=== PATIENT | female | born 1955 | race African-American/Black ===

== ENCOUNTER 2025-01-31 13:31 | Inpatient (IN) | payer MEDICARE, MEDICAID, SELFPAY ==
[2025-01-31] VITALS (58 sets, daily range): BP systolic 93–122; BP diastolic 53–97; PULSE 94–129; RESP 18–24; TEMP 37.4–38.2; O2SAT 90–100; BMI 16.0
--- NOTE | ~2025-01-31 | XR_ITS ---
EXAMINATION: XR chest 1V portable DATE: 02/05/2025 06:07 INDICATION: Pneumonia. Respiratory failure. TECHNIQUE: A single frontal view of the chest was obtained. COMPARISON: Chest single view 02/04/2025, chest CT 01/31/2025 FINDINGS: There are airspace opacities in right mid and lower lung zones and left lower lung zone. Th ere is a small right pleural effusion. No pneumothorax. The heart size is normal. The endotracheal tu be tip is 2.2 cm above the danay. The nasogastric tube tip is in the stomach. A right internal jugul ar central venous catheter is seen with tip in the right atrium. IMPRESSION: 1. Airspace opacities in right mid and lower lung zones and left lower lung zone with improvement on the right, consistent with atelectasis versus pneumonia. 2. Small right pleural effusion. Reviewed, dictated and finalized at location A. IMPRESSION: 1. Airspace opacities in right mid and lower lung zones and left lower lung zon e with improvement on the right, consistent with atelectasis versus pneumonia. 2. Small right pleural effusion.
--- NOTE | ~2025-01-31 | XR_ITS ---
XR chest ET placement Ordering provider: Yang Shin MD History: 69 years Female with . intubation and central line . Comparison: None. FINDINGS: MEDIASTINUM: The cardiac silhouette is not enlarged. Endotracheal tube is seen with the tip above the danay by about 3 cm. Right central line with the tip overlying the right atrium. Nasogastric tube s een extending into the stomach. Congestive charmaine. LUNGS: No effusions or pneumothorax. Opacification the right lower lobe area suggestive of pneumonia. OTHER: No free air under the diaphragm. IMPRESSION: Right lower lobe pneumonia. Reviewed, dictated and finalized at location A. IMPRESSION: Right lower lobe pneumonia.
--- NOTE | ~2025-01-31 | XR_ITS ---
CHEST RADIOGRAPH CLINICAL HISTORY: Pneumonia, respiratory failure . COMPARISON: 02/03/2025 TECHNIQUE: Single portable view of the chest. FINDINGS Right internal jugular central venous catheter tip projecting over the right atrium (increased depth from previous examination likely secondary to positioning). Endotracheal tube is identified with its tip projecting approximately 2.5 cm above the base of the ca davin. Nasogastric tube identified with its tip extending below the left hemidiaphragm, presumably within th e stomach. The remainder of the cardiomediastinal silhouette is otherwise unremarkable. Redemonstration of a right-sided pleural effusion, with adjacent compressive atelectasis. This is dec reased from previous examination performed 24 hours earlier. Increased interstitial markings are identified bilaterally, findings suggesting mild pulmonary vascul ar congestion. The remainder of the lungs are clear. IMPRESSION: Decreased right-sided pleural effusion, with adjacent compressive atelectasis. Mild pulmonary vascular congestion. Supportive lines and tubes in good radiographic position. Reviewed, dictated and finalized at location A.
--- NOTE | ~2025-01-31 | XR_ITS ---
Portable chest x-ray Comparison: 01/31/2025 Clinical History: Intubation Findings: Endotracheal tube, NG tube, and right IJ line are in place, unchanged. Stable elevation ri ght hemidiaphragm. There is hazy airspace disease right lung base/right perihilar region. Left lung c lear. Cardiomediastinal silhouette is stable. Bones and soft tissues are unremarkable. Impression: Hazy airspace disease right lung base/right perihilar region. Correlate for asymmetric pulmonary enrrique a versus pneumonia. Support tubes, as above. Reviewed, dictated and finalized at location . Impression: Hazy airspace disease right lung base/right perihilar region. Correlate for asy mmetric pulmonary edema versus pneumonia. Support tubes, as above.
--- NOTE | ~2025-01-31 | XR_ITS ---
Portable chest x-ray Comparison: 02/11/2025 Clinical History: Intubation Findings: Endotracheal tube, NG tube, and right IJ line are in place. Stable elevation right hemidia phragm. Lungs are clear. Cardiomediastinal silhouette is stable. Bones and soft tissues are unremark able. Impression: Support tubes, as above. Right IJ line tip is in the right atrium, near the IVC. Clear lungs with stable elevation right hemidiaphragm. Reviewed, dictated and finalized at location M. Impression: Support tubes, as above. Right IJ line tip is in the right atrium, near the IVC . Clear lungs with stable elevation right hemidiaphragm.
--- NOTE | ~2025-01-31 | CT_ITS ---
History: TIA PROCEDURE: CT head without contrast. COMPARISON: None TECHNIQUE: Axial imaging of the head performed from the skull base to the vertex without IV contrast. Sagittal a nd coronal reformations obtained. DLP: 605 mGy-cm FINDINGS: The ventricles are normal in size, shape and position. There is no mass, mass effect or midline shift. There is no abnormal extra-axial fluid collection or intracranial hemorrhage. Visualized paranasal sinuses are clear. The mastoid air cells are well aerated. No acute displaced fractures within the overlying cranium. Impression: No acute intracranial hemorrhage or suspicious mass effect. Reviewed, dictated and finalized at location A. Impression: No acute intracranial hemorrhage or suspicious mass effect.
--- NOTE | ~2025-01-31 | XR_ITS ---
EXAMINATION: XR chest 1V portable DATE: 02/09/2025 05:36 INDICATION: Respiratory failure. TECHNIQUE: A single frontal view of the chest was obtained. COMPARISON: Chest single view 02/08/2025, chest CT 01/31/2025 FINDINGS: There are airspace opacities in right mid and lower lung zones. No pleural effusion or pneu mothorax. The heart size is normal. The endotracheal tube tip is 2.7 cm above the danay. The nasogas tric tube tip is beyond the inferior margin of the radiograph, but at least to the stomach. A right i nternal jugular central venous catheter is seen with tip in the right atrium. IMPRESSION: 1. Stable airspace opacities in right mid and lower lung zones, consistent with atelectasis versus pn eumonia. Reviewed, dictated and finalized at location A. IMPRESSION: 1. Stable airspace opacities in right mid and lower lung zones, consistent with atelectasis versus pneumonia.
--- NOTE | ~2025-01-31 | XR_ITS ---
EXAMINATION: XR chest 1V portable DATE: 02/07/2025 05:46 INDICATION: Respiratory failure. TECHNIQUE: A single frontal view of the chest was obtained. COMPARISON: Chest single view 02/06/2025 FINDINGS: The patient is rotated to her left. Again seen is mild elevation of right hemidiaphragm. Th ere are airspace opacities in the lower lung zones, right worse than left. No pleural effusion or pne umothorax. The heart size is normal. The endotracheal tube tip is 3.0 cm above the danay. The nasoga stric tube tip is in the stomach. A right internal jugular central venous catheter is seen with tip i n the right atrium. IMPRESSION: 1. Airspace opacities in the lower lung zones with interval improvement, consistent with atelectasis versus pneumonia. Reviewed, dictated and finalized at location A. IMPRESSION: 1. Airspace opacities in the lower lung zones with interval improvement, consis tent with atelectasis versus pneumonia.
--- NOTE | ~2025-01-31 | XR_ITS ---
Portable chest x-ray Comparison: 02/14/2025 Clinical History: Respiratory failure Findings: Endotracheal tube and left-sided PICC line are in place. Stable elevation right hemidiaphr agm. Lungs are clear. Cardiomediastinal silhouette is stable. Bones and soft tissues are unremarkabl e. Impression: Clear lungs with stable elevation of right hemidiaphragm. Support tubes, as above. Reviewed, dictated and finalized at location . Impression: Clear lungs with stable elevation of right hemidiaphragm. Support tubes, as above.
--- NOTE | ~2025-01-31 | XR_ITS ---
Portable chest x-ray Comparison: 02/12/2025 Clinical History: Respiratory failure Findings: Endotracheal tube, NG tube, and left-sided PICC line are in place. There is elevation of t he right hemidiaphragm. Lungs are clear. Cardiomediastinal silhouette is stable. Bones and soft tiss ues are unremarkable. Impression: Support tubes, as above. Clear lungs with elevated right hemidiaphragm. Reviewed, dictated and finalized at location M. Impression: Support tubes, as above. Clear lungs with elevated right hemidiaphragm.
--- NOTE | ~2025-01-31 | XR_ITS ---
Exam: Abdomen 1V HISTORY: OG placement verification, depth undocumented COMPARISON: None. TECHNIQUE: Supine images of the lower chest and upper abdomen FINDINGS: Orogastric tube extends into the left upper quadrant, presumably within the stomach. IMPRESSION: Orogastric tube in good position and ready for immediate use. Reviewed, dictated and finalized at location A.
--- NOTE | ~2025-01-31 | XR_ITS ---
EXAMINATION: XR chest 1V portable DATE: 02/08/2025 05:47 INDICATION: Respiratory failure. TECHNIQUE: A single frontal view of the chest was obtained. COMPARISON: Chest single view 02/07/2025 FINDINGS: There is mild elevation of right hemidiaphragm. There are airspace opacities in right mid a nd lower lung zones and left lower lung zone. No pleural effusion or pneumothorax. The heart size is normal. The endotracheal tube tip is 4.3 cm above the danay. A right internal jugular central venous catheter is seen with tip in the right atrium. The nasogastric tube tip is beyond the inferior narciso n of the radiograph, but at least to the stomach. IMPRESSION: 1. Airspace opacities in right mid and lower lung zones and left lower lung zone with worsening on th e right, consistent with atelectasis versus pneumonia. Reviewed, dictated and finalized at location A. IMPRESSION: 1. Airspace opacities in right mid and lower lung zones and left lower lung zon e with worsening on the right, consistent with atelectasis versus pneumonia.
--- NOTE | ~2025-01-31 | XR_ITS ---
XR abdomen gastric tube insert Ordering provider: Marky Taylor MD History: . OG tube placement . Comparison: None. FINDINGS/impression: Nasogastric tube is seen with the distal tube projected over the body of the stomach. Reviewed, dictated and finalized at location A.
--- NOTE | ~2025-01-31 | XR_ITS ---
CHEST RADIOGRAPH CLINICAL HISTORY: ET TUBE ADVANCEMENT . COMPARISON: Previous examination performed on the same day, approximately 3 hours earlier TECHNIQUE: Single portable view of the chest. FINDINGS Right internal jugular central venous catheter tip now projecting over the deep right atrium/IVC conf luence (increased depth from previous examination likely secondary to positioning). Endotracheal tube is identified with its tip now projecting approximately 1.3 cm above the base of th e danay (increased depth from previous examination likely secondary to positioning). Nasogastric tube identified with its tip extending below the left hemidiaphragm, presumably within th e stomach. The remainder of the cardiomediastinal silhouette is otherwise unremarkable. Redemonstration of a right-sided pleural effusion, with adjacent compressive atelectasis. This is dec reased from previous examination performed 24 hours earlier. Increased interstitial markings are identified bilaterally, findings suggesting mild pulmonary vascul ar congestion. The remainder of the lungs are clear. IMPRESSION: Decreased right-sided pleural effusion, with adjacent compressive atelectasis. Mild pulmonary vascular congestion. Given that the patient's kyphosis is not severe, the increased depth of both the endotracheal tube an d central venous catheter is significant - for which withdrawal of the central venous catheter appro ximately 4 cm and withdrawal of the endotracheal tube approximately 3.5 cm is recommended, for optima l radiographic placement. Reviewed, dictated and finalized at location A. IMPRESSION: Decreased right-sided pleural effusion, with adjacent compressive atelectasis. Mild pulmonary vascular congestion. Given that the patient's kyphosis is not severe, the increased depth of both th e endotracheal tube and central venous catheter is significant - for which wit hdrawal of the central venous catheter approximately 4 cm and withdrawal of the endotracheal tube approximately 3.5 cm is recommended, for optimal radiographi c placement.
--- NOTE | ~2025-01-31 | XR_ITS ---
Portable chest x-ray Comparison: 02/01/2025 Clinical History: Pneumonia Findings: Endotracheal tube, NG tube, and right IJ line are in place. There are small right pleural effusion with hazy right basilar airspace disease and possible right basilar atelectasis. Left lung e ssentially clear. Cardiomediastinal silhouette is stable. Bones and soft tissues are unremarkable. Impression: Small right pleural effusion with hazy right basilar airspace disease and possible partial right basi lar atelectasis. Support tubes, as above. Reviewed, dictated and finalized at location . Impression: Small right pleural effusion with hazy right basilar airspace disease and possi ble partial right basilar atelectasis. Support tubes, as above.
--- NOTE | ~2025-01-31 | XR_ITS ---
XR chest 1V portable 02/03/2025 06:14 Indication: Pneumonia. Respiratory failure. Procedure: AP portable chest Comparison: 02/02/2025 Findings: Heart size normal. NG tube in the stomach. Right IJ central line tip in the SVC. Endotrache al tube tip 4.6 cm above the danay. Mild interstitial edema. Small right pleural effusion. No pneumo thorax. No acute osseous abnormality. Nonspecific bowel gas pattern. Impression: 1: Persistent mild interstitial edema with layering right pleural effusion. Reviewed, dictated and finalized at location B. Impression: 1: Persistent mild interstitial edema with layering right pleural effusion.
--- NOTE | ~2025-01-31 | XR_ITS ---
XR chest 1V portable Ordering provider: Marky Taylor MD History: 69 years Female with . Resp Failure . Comparison: February 17, 2025 FINDINGS: MEDIASTINUM: The cardiac silhouette is not enlarged. Tracheostomy tube, and left central line are unc hanged. LUNGS: No effusions or pneumothorax. Atelectasis versus pneumonia seen in the middle lobe area. Promi nent bronchovascular markings are seen in the lower lobes. OTHER: Elevation of the right hemidiaphragm. No free air under the diaphragm. IMPRESSION: No change from previous examination. Reviewed, dictated and finalized at location A.
--- NOTE | ~2025-01-31 | XR_ITS ---
XR chest 1V portable 02/14/2025 08:47 Indication: Respiratory failure Procedure: AP portable chest Comparison: 02/12/2025 Findings: Endotracheal tube tip 4.9 cm above the danay. NG tube in the stomach. Elevated right diaph ragm. Left lung clear. There is opacification of the right lung base with indistinct bilateral costop hrenic recess. No pneumothorax identified. Left subclavian PICC line tip in the SVC. Impression: 1: Right basilar opacification may represent atelectasis or pneumonia. Elevated right diaphragm uncha nged. Reviewed, dictated and finalized at location A. Impression: 1: Right basilar opacification may represent atelectasis or pneumonia. Elevated right diaphragm unchanged.
--- NOTE | ~2025-01-31 | XR_ITS ---
EXAMINATION: XR chest 1V portable DATE: 02/06/2025 06:08 INDICATION: Pneumonia. Respiratory failure. TECHNIQUE: A single frontal view of the chest was obtained. COMPARISON: Chest single view 02/05/2025, chest CT 01/31/2025 FINDINGS: The patient is rotated to her left. There is elevation of right hemidiaphragm. There are ai rspace opacities in the lower lung zones. No pleural effusion or pneumothorax. The heart size is norm al. The endotracheal tube tip is 10 mm above the danay. The nasogastric tube tip is beyond the infer ior margin of the radiograph, but at least to the stomach. A right internal jugular central venous ca theter is seen with tip in the right atrium. IMPRESSION: 1. Airspace opacities in the lower lung zones with slight improvement on the right, consistent with p neumonia and atelectasis. Reviewed, dictated and finalized at location A. IMPRESSION: 1. Airspace opacities in the lower lung zones with slight improvement on the ri ght, consistent with pneumonia and atelectasis.
--- NOTE | ~2025-01-31 | XR_ITS ---
Upright portable view of the abdomen Clinical history: NG tube placement Findings: NG tube in satisfactory position. Bowel gas pattern is nonspecific. No evidence for obstruc tion or free air. No abnormal mass lesion or calcification is seen. Osseous structures are intact. Impression: NG tube in satisfactory position. Reviewed, dictated and finalized at location . Impression: NG tube in satisfactory position.
--- NOTE | ~2025-01-31 | US_ITS ---
EXAMINATION: US venous doppler [facility] DATE: 02/15/2025 12:07 INDICATION: Fever. Respiratory failure. TECHNIQUE: Grayscale ultrasound images without and with compression and Doppler ultrasound images of the bilateral lower extremity veins were obtained. COMPARISON: None. FINDINGS: The visualized portions of right common femoral vein, profunda (deep) femoral vein, femoral vein, pop liteal vein, posterior tibial veins, peroneal veins, gastrocnemius vein and greater saphenous vein ou tflow are patent. The visualized portions of left common femoral vein, profunda femoral vein, femoral vein, popliteal v ein, posterior tibial veins, peroneal veins, gastrocnemius vein and greater saphenous vein outflow ar e patent. IMPRESSION: 1. No deep venous thrombosis in either lower limb. Reviewed, dictated and finalized at location A.
--- NOTE | ~2025-01-31 | XR_ITS ---
Exam: Abdomen 1V HISTORY: distended abdomen TECHNIQUE: Supine images of the lower chest and upper abdomen FINDINGS: Orogastric tube extends into the left upper quadrant, presumably within the stomach. IMPRESSION: Orogastric tube in good position and ready for immediate use. Contrast opacified fecal stasis is identified distending the rectum extending to the level of the dil ated splenic flexure. Reviewed, dictated and finalized at location A. IMPRESSION: Orogastric tube in good position and ready for immediate use. Contrast opacified fecal stasis is identified distending the rectum extending t o the level of the dilated splenic flexure.
--- NOTE | ~2025-01-31 | XR_ITS ---
Portable chest x-ray Comparison: 02/15/2025 Clinical History: Respiratory failure Findings: Endotracheal tube and left-sided PICC line are in place. Stable elevation right hemidiaphr agm. Mild haziness right lung base noted. Left lung clear. Cardiomediastinal silhouette is stable. B ones and soft tissues are unremarkable. Impression: Mild haziness right lung base. Correlate for pneumonia. Stable elevation right hemidiaphragm. Stable support tubes. Reviewed, dictated and finalized at location . Impression: Mild haziness right lung base. Correlate for pneumonia. Stable elevation right hemidiaphragm. Stable support tubes.
--- NOTE | ~2025-01-31 | XR_ITS ---
XR chest ET placement Ordering provider: Marky Taylor MD History: 69 years Female with . ET tube placement . Comparison: February 05, 2025 FINDINGS: MEDIASTINUM: The cardiac silhouette is not enlarged. Endotracheal tube is seen with the tip in the ri ght main bronchus. Right central line with the tip in the right atrium. Nasogastric tube with the tip overlying the stomach. Congestive charmaine. LUNGS: No effusions or pneumothorax. Bilateral opacification in the lung bases. OTHER: No free air under the diaphragm. IMPRESSION: Endotracheal tube is seen in the right main bronchus. Retraction by 2 to 3 cm is advised. Bilateral basal pneumonia. Reviewed, dictated and finalized at location A. IMPRESSION: Endotracheal tube is seen in the right main bronchus. Retraction by 2 to 3 cm i s advised. Bilateral basal pneumonia.
--- NOTE | ~2025-01-31 | XR_ITS ---
XR abdomen gastric tube insert Ordering provider: Yang Shin MD History: . OG TUBE INSERTION . Comparison: None. FINDINGS: BOWEL: Nasogastric tube is seen with the tip in the stomach. Nonobstructive bowel gas pattern. Residu al contrast is seen in the large bowel. ORGANOMEGALY: None. SIGNIFICANT PATHOLOGIC CALCIFICATIONS: None. OTHER: No free air is seen under the diaphragm. IMPRESSION: NO ACUTE ABDOMINAL FINDINGS. Nasogastric tube with the tip in the body of the stomach. Reviewed, dictated and finalized at location A.
--- NOTE | ~2025-01-31 | CT_ITS ---
EXAMINATION: CTA chest PE abdomen pel DATE: 01/31/2025 15:49 CDT INDICATION: Leukocytosis, lactic acidosis after an episode of unresponsiveness and hypoxia TECHNIQUE: Computed tomographic angiography (CTA) of the chest was performed, along with multiple con tiguous axial images of the abdomen and pelvis with 100 mL Omnipaque-350 intravenous contrast. The do se-length product was 313.56 mGy-cm. Maximum intensity projection 3D-reconstructions of the aorta and other arteries were constructed by the technologist on a separate workstation. FINDINGS/OBSERVATIONS: PULMONARY ARTERIES: No filling defect is identified within the main or proximal pulmonary artery. The main pulmonary artery is not enlarged. THORACIC AORTA: No aneurysmal dilatation or dissection is present. The great vessels are intact LUNGS: Dense consolidation of the right middle and lower lobes. Endotracheal tube in good position. Left basilar atelectasis. MEDIASTINUM: No morphologically suspicious or pathologically enlarged lymph nodes are identified with in the mediastinum or bilateral axilla. Central venous catheter in position BONES OF THE CHEST: No acute displaced rib or spinal fracture. No significant degenerative disease. No lytic or blastic lesions. HEART: The heart is of normal size, without pericardial effusion. LIVER: The liver enhances homogeneously and is not enlarged measuring 16 cm in longitudinal dimension. GALLBLADDER AND BILIARY SYSTEM: The gallbladder is only minimally distended, and otherwise unremarkable. PANCREAS: The pancreas enhances homogeneously without ductal dilatation. SPLEEN: The spleen enhances homogeneously and is not enlarged measuring 8 cm in longitudinal dimension. KIDNEYS: The bilateral kidneys enhance symmetrically without hydronephrosis or renal calculi. ADRENAL GLANDS: Unremarkable. GASTROINTESTINAL TRACT: Oral contrast opacifies the colon. APPENDIX: The appendix is not definitively visualized. However, no pericecal inflammatory change is identified suggest the presence of acute appendicitis. VASCULATURE: Unremarkable. No aneurysmal dilatation or significant stenosis. LYMPH NODES: No pathologically enlarged or morphologically suspicious lymph nodes within the retroperitoneum or at the root of the mesentery. PELVIC STRUCTURES: The bladder is decompressed with a Arredondo catheter, limiting its evaluation. The uterus is anteverted and anteflexed and extends to the right of midline BODY WALL AND MUSCULOSKELETAL: Small fat-containing umbilical hernia. No significant degenerative disease within the lower thoracic or lumbosacral spine. IMPRESSION: Right middle and lower lobe pneumonia with dense consolidation. Left basilar atelectasis. No pulmonary embolus. No aortic dissection. Oral contrast opacifies the entirety of the colon. Supportive lines in good position. No acute pathology within the remainder of the examination, as detailed above. Reviewed, dictated and finalized at location A.
--- NOTE | ~2025-01-31 | XR_ITS ---
EXAMINATION: XR chest 1V portable DATE: 02/10/2025 05:26 INDICATION: Respiratory failure. TECHNIQUE: A single frontal view of the chest was obtained. COMPARISON: Chest single view 02/09/2025, chest CT 01/31/2025 FINDINGS: There is elevation of right hemidiaphragm. There are airspace opacities in right mid and lo wer lung zones. No pleural effusion or pneumothorax. The heart size is normal. The endotracheal tube tip is 3.9 cm above the danay. The nasogastric tube tip is beyond the inferior margin of the radiogr aph, but at least to the stomach. A right internal jugular central venous catheter is seen with tip i n the right atrium. IMPRESSION: 1. Stable airspace opacities in right mid and lower lung zones, consistent with atelectasis versus pn eumonia. Reviewed, dictated and finalized at location A. IMPRESSION: 1. Stable airspace opacities in right mid and lower lung zones, consistent with atelectasis versus pneumonia.
--- NOTE | ~2025-01-31 | XR_ITS ---
EXAMINATION: XR chest 1V portable DATE: 02/17/2025 05:49 INDICATION: Respiratory failure TECHNIQUE: frontal view of the chest was obtained. COMPARISON: Chest radiograph dated 02/16/2025 FINDINGS: Tracheostomy tube in expected position at the thoracic inlet. Persistent decreased right lung volume with elevation the right hemidiaphragm. Slight improvement in airspace opacities in the right lower l obe. No pulmonary edema, pleural effusion or pneumothorax. Heart size is normal. IMPRESSION: 1. Unchanged elevation of the right hemidiaphragm with some improvement in opacities in the right low er lobe which could represent atelectasis or pneumonia. Reviewed, dictated and finalized at location A. IMPRESSION: 1. Unchanged elevation of the right hemidiaphragm with some improvement in opac ities in the right lower lobe which could represent atelectasis or pneumonia.
--- NOTE | ~2025-01-31 | XR_ITS ---
Portable chest x-ray Comparison: 02/18/2025 Clinical History: Respiratory failure Findings: Tracheostomy cannula and left PICC line are in place. Stable elevation right hemidiaphragm . Lungs are otherwise clear. Cardiomediastinal silhouette is stable. Bones and soft tissues are unre markable. Impression: Clear lungs. Support tubes, as above. Elevated right hemidiaphragm. Reviewed, dictated and finalized at location . Impression: Clear lungs. Support tubes, as above. Elevated right hemidiaphragm.
--- NOTE | ~2025-01-31 | XR_ITS ---
CHEST RADIOGRAPH CLINICAL HISTORY: Resp Failure . COMPARISON: 02/10/2025, approximately 20 minutes earlier TECHNIQUE: Single portable view of the chest. FINDINGS Sternal wires and mediastinal clips are identified, the wires are midline and intact. Nontunneled right internal jugular central venous catheter is present with its tip projecting over th e right atrium. Evaluation of the central mediastinum is limited secondary to multiple devices projecting over the ca rdiomediastinal silhouette. Endotracheal tube is identified with its tip projecting approximately 1.4 cm above the base of the ca davin. Nasogastric tube identified with its tip extending below the left hemidiaphragm, presumably within th e stomach. The remainder of the cardiomediastinal silhouette is otherwise unremarkable. Blunting of the right costophrenic sulcus suggesting a small right-sided pleural effusion. Elevation of the right hemidiaphragm with adjacent compressive atelectasis, unchanged from prior. The remainder of the lungs are clear. IMPRESSION: Small right-sided pleural effusion. Limited evaluation of the tip of the endotracheal tube location as the danay is obscured by overlyin g devices and wires. Remaining supportive lines and tubes in good radiographic position. Reviewed, dictated and finalized at location A. IMPRESSION: Small right-sided pleural effusion. Limited evaluation of the tip of the endotracheal tube location as the danay i s obscured by overlying devices and wires. Remaining supportive lines and tubes in good radiographic position.
--- NOTE | 2025-01-31 13:49 | ECG_ITS ---
Test Date: 2025-01-31 15:15:56 Measurements Intervals [place] Rate: 107 P: 13 PA: 129 QRS: -27 QRSD: 82 T: 78 QT: 292 QTc: 390 Interpretive Statements SINUS TACHYCARDIA BORDERLINE LEFT AXIS DEVIATION [QRS AXIS < -20] LEFT VENTRICULAR HYPERTROPHY AND ST-T CHANGE [VOLTAGE CRITERIA PLUS ST/T ABNORMALITY] No previous ECG available for comparison Electronically Signed On 01-31-2025 15:28:52 CDT by Corky Pennington M.D.
[2025-01-31 14:01] LABS: Basophils Percent Auto 0.2 % (0.2-1.2); Hematocrit 33.7 % (37.0-47.0); Hemoglobin 10.3 g/dL (12.0-15.0); Immature Granulocyte Absolute 0.04 K/mm3 (0.00-0.031); Immature Granulocyte Percent A 0.4 % (0-0.5); Lymphocytes Percent Auto 5.4 % (18.3-44.2); Mean Corpuscular HGB Conc 30.6 g/dl (32-36); Mean Corpuscular Hemoglobin 28.7 pg (26-34); Mean Corpuscular Volume 93.9 fl (80-100); Mean Platelet Volume 12.1 fl (7.4-10.4); Monocytes Absolute Auto 0.7 K/mm3 (0.1-0.6); Monocytes Percent Auto 6.3 % (2.6-8.5); Neutrophils Absolute Auto 9.7 K/mm3 (1.3-6.7); Neutrophils Percent Auto 87.7 % (45.5-73.1); Platelet Count Result 237 k/mm3 (150-375); Red Blood Count 3.59 M/mm3 (4.2-5.4); Red Cell Distribution Width 14.3 % (11.5-14.5)
[2025-01-31] MEDS: MIDAZOLAM HCL (*CRX) 2 MG/2 ML VIAL IV PUSH (14:05)
--- NOTE | 2025-01-31 14:05 | ED_ITS ---
HPI - General Adult General Chief complaint: Altered Mental Status Stated complaint: AMS Time Seen by Provider: 01/31/25 14:01 History of Present Illness HPI narrative: 69-year-old female with history of being nonverbal with cerebral palsy and schizophrenia presents emergency department for evaluation after being unresponsive and hypoxic at the [facility]. Patient was apparently at [place] and had recently arrived at [facility] and was found to be unresponsive and was transferred to [place]. Upon arrival emergency department patient was unresponsive with no gag hypotensive with no IV access. Patient was intubated and central line was placed. Patient was being treated for a left lower lobe pneumonia at [place]. 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 EYES: PERRLA/EOMI, conjunctivae clear. NOSE: Normal no drainage EARS:TMS clear with good light reflex. THROAT: Pharynx clear, no exudate. NECK: Supple. No adenopathy, no masses. RESPIRATORY: Airway patent, respirations nonlabored. Clear to auscultation bilaterally, no rales, rhonchi, wheezing. CARDIOVASCULAR: Regular rate and rhythm without murmurs rubs or gallops. ABDOMINAL: Soft, nontender, nondistended, normal bowel sounds MUSCULOSKELETAL: Moves all extremities. Strength/ROM intact, No edema, No calf tenderness. NEURO: Minimally responsive SKIN: Warm, dry. Normal Color Course Vital Signs Vital signs: Vital Signs Pulse Rate 112 H 01/31/25 13:28 Temperature 100.7 F H 01/31/25 18:16 Pulse Rate 110 H 01/31/25 18:16 Respiratory Rate 20 01/31/25 18:16 Blood Pressure 100/77 01/31/25 18:15 Pulse Oximetry 94 01/31/25 18:16 Oxygen Delivery Mechanical Ventilation 03/19/25 15:50 Fraction of Inspired Oxygen 40 01/31/25 15:50 Procedures Central Line Placement Right IJ: Central Line Date: 01/31/25 Performed Emergently - Given emergent patient condition, temporal constraints may have precluded informed consent.: Yes Time Out Performed: Yes Patient Placed on Monitor/Pulse Ox: Yes Max. Sterile Barrier Technique: Caps, large sterile sheet and hand hygiene Central Line Prep: 2% chlorhexidine scrub and sterile drapes applied Ultrasound Used for Placement: Yes Central Line Lumen Inserted: triple Post Procedure: sutured in place, good blood return, all ports aspirated, flushed, capped and sterile dressing applied Post Procedure X-Ray: tip of catheter in good position Patient Tolerated Procedure: well and no complications Complications: none Intubation Intubation #1: Time out performed: Yes sedative: Etomidate Mg Given: 20 paralytic: Succinylcholine Mg Given: 100 Laryngoscope: fiber optic video scope Tube Size (cm): 7.5 Method of Intubation: orotracheal Number of Attempts: 1 Tube Secured Depth (cm): 25 Tube Secured Location: teeth Tube Placement Confirmation: visualized tube passing through cords, equal breath sounds bilaterally, no breath sounds over epigastrium and confirmation by capnometry Patient Tolerated Procedure: well and no complications Intubation Complications: none Medical Decision Making MDM Narrative Medical decision making narrative: 69-year-old female presents emergency department for evaluation for being unresponsive. Patient had no gag upon arrival emergency department was hypotensive with no IV access. Central line was placed in the right IJ and patient was intubated. Patient is on fentanyl and Versed for sedation. Chest x-ray was concerning for right lower lobe pneumonia and patient was started on cefepime and vanc with blood cultures pending. CT brain chest abdomen pelvis were ordered. Head CT was negative, chest abdomen pelvis CT was concerning for right lower lobe pneumonia. Patient was negative for COVID RSV influenza a, UA was negative Case was discussed with the cd reactor operator and patient will be admitted to the ICU. Case discussed with hospitalist patient was accepted to the ICU. Differential Diagnosis Differential Diagnosis: COVID, RSV influenza, hypertension, sepsis, pneumonia, hypercapnic respiratory failure Vital Signs Vital Signs: Vital Signs Pulse Rate 112 H 01/31/25 13:28 Temperature 100.7 F H 01/31/25 18:16 Pulse Rate 110 H 01/31/25 18:16 Respiratory Rate 20 01/31/25 18:16 Blood Pressure 100/77 01/31/25 18:15 Pulse Oximetry 94 01/31/25 18:16 Oxygen Delivery Mechanical Ventilation 01/31/25 15:50 Fraction of Inspired Oxygen 40 01/31/25 15:50 Lab Data Lab results reviewed: Yes I reviewed the patient's lab results. 01/31/25 13:53 01/31/25 15:31 Labs: Lab Results 01/31/25 01/31/25 01/31/25 Range/Units 13:53 13:54 14:49 WBC 11.0 H (4.5-10.0) K/mm3 RBC 3.59 L (4.2-5.4) M/mm3 Hgb 10.3 L (12.0-15.0) g/dL Hct 33.7 L (37.0-47.0) % MCV 93.9 (80-100) fl MCH 28.7 (26-34) pg MCHC 30.6 L (32-36) g/dl RDW 14.3 (11.5-14.5) % Plt Count 237 (150-375) k/mm3 MPV 12.1 H (7.4-10.4) fl Immature Gran % (Auto) 0.4 (0-0.5) % Neut % (Auto) 87.7 H (45.5-73.1) % Lymph % (Auto) 5.4 L (18.3-44.2) % [place] % (Auto) 6.3 (2.6-8.5) % Eos % (Auto) 0.0 (0-4.4) % Baso % (Auto) 0.2 (0.2-1.2) % Lymph # (Auto) 0.60 L (0.9-3.2) K/mm3 [place] # (Auto) 0.7 H (0.1-0.6) K/mm3 Eos # (Auto) 0.0 (0-0.3) K/mm3 Baso # (Auto) 0.0 (0.0-0.1) K/mm3 Abs Immat Gran (auto) 0.04 H (0.00-0.031) K/mm3 Absolute Neuts (auto) 9.7 H (1.3-6.7) K/mm3 Absolute Nucleated RBC 0.000 (0.0-0.012) K/mm3 Nucleated RBC % 0.0 (0.0-0.2) % PT 14.1 (11.1-14.7) Seconds INR 1.1 APTT 41.0 H (22.3-36.8) Seconds Methemoglobin 0.2 (0-1.5) %THb Minute Volume Not Reportable Vent Mode Cmv Tidal Volume 350 ml PEEP 5 cmH2O Peak Inspir Pressure Not Reportable Pressure Support 0 cmH2O Sodium (137-145) mmol/L Potassium (3.4-5.0) mmol/L Chloride (98-107) mmol/L Carbon Dioxide (22-30) mmol/L Anion Gap (4-12) mmol/L BUN (7-17) mg/dL Creatinine (0.7-1.0) mg/dL Estim Creat Clear Calc Estimated GFR (59 - ) Glucose (65-110) mg/dL Lactic Acid 2.7 H (0.7-2.0) mmol/L Calcium (8.4-10.2) mg/dL Total Bilirubin (0.2-1.3) mg/dL AST (14-36) U/L ALT (6-35) U/L Alkaline Phosphatase (38-126) U/L C-Reactive Protein (<1.0) mg/dL Total Protein (6.3-8.2) g/dL Albumin (3.5-5.1) g/dL Procalcitonin Urine Color Yellow (Yellow) Urine Appearance Clear (Clear) Urine pH 8.0 (5.0-9.0) Ur Specific [place] 1.013 (1.001-1.035) Urine Protein 1+ H (Negative) mg/dL Urine Glucose (UA) Negative (Negative) mg/dL Urine Ketones Negative (Negative) mg/dL Ur Blood (Man) Negative (Negative) Urine Nitrate Negative (Negative) Urine Bilirubin Negative (Negative) Urine Urobilinogen 0.2 (<2.0) mg/dL Leukocyte Esterase Rfl Negative (Negative) JULES/UL Urine RBC 0-2 (0-2) /hpf Urine WBC 0-5 (0-3) /hpf Ur Squamous Epith Cells Occasional (Few) /hpf Urine Bacteria None seen /hpf Urine Casts 11-20 Hyaline Casts Present (None) /lpf Nasal MRSA (PCR) (NOT DETECTE) Influenza A (RT-PCR) (Negative) Influenza B (RT-PCR) (Negative) RSV (RT-PCR) (Negative) SARS-CoV-2 RNA (RT-PCR) (Negative) 01/31/25 01/31/25 01/31/25 Range/Units 15:11 15:31 16:21 WBC (4.5-10.0) K/mm3 RBC (4.2-5.4) M/mm3 Hgb (12.0-15.0) g/dL Hct (37.0-47.0) % MCV (80-100) fl MCH (26-34) pg MCHC (32-36) g/dl RDW (11.5-14.5) % Plt Count (150-375) k/mm3 MPV (7.4-10.4) fl Immature Gran % (Auto) (0-0.5) % Neut % (Auto) (45.5-73.1) % Lymph % (Auto) (18.3-44.2) % [place] % (Auto) (2.6-8.5) % Eos % (Auto) (0-4.4) % Baso % (Auto) (0.2-1.2) % Lymph # (Auto) (0.9-3.2) K/mm3 [place] # (Auto) (0.1-0.6) K/mm3 Eos # (Auto) (0-0.3) K/mm3 Baso # (Auto) (0.0-0.1) K/mm3 Abs Immat Gran (auto) (0.00-0.031) K/mm3 Absolute Neuts (auto) (1.3-6.7) K/mm3 Absolute Nucleated RBC (0.0-0.012) K/mm3 Nucleated RBC % (0.0-0.2) % PT (11.1-14.7) Seconds INR APTT (22.3-36.8) Seconds Methemoglobin (0-1.5) %THb Minute Volume Vent Mode Tidal Volume ml PEEP cmH2O Peak Inspir Pressure Pressure Support cmH2O Sodium 145 (137-145) mmol/L Potassium 3.7 (3.4-5.0) mmol/L Chloride 104 (98-107) mmol/L Carbon Dioxide 38 H (22-30) mmol/L Anion Gap 3 L (4-12) mmol/L BUN 16 (7-17) mg/dL Creatinine 0.56 L 0.60 L (0.7-1.0) mg/dL Estim Creat Clear Calc Not Reportable Not Reportable Estimated GFR > 60 > 60 (59 - ) Glucose 113 H (65-110) mg/dL Lactic Acid 0.9 (0.7-2.0) mmol/L Calcium 8.5 (8.4-10.2) mg/dL Total Bilirubin 0.6 (0.2-1.3) mg/dL AST 60 H (14-36) U/L ALT 132 H (6-35) U/L Alkaline Phosphatase 120 (38-126) U/L C-Reactive Protein 8.3 H (<1.0) mg/dL Total Protein 7.0 (6.3-8.2) g/dL Albumin 2.7 L (3.5-5.1) g/dL Procalcitonin Pending Urine Color (Yellow) Urine Appearance (Clear) Urine pH (5.0-9.0) Ur Specific [place] (1.001-1.035) Urine Protein (Negative) mg/dL Urine Glucose (UA) (Negative) mg/dL Urine Ketones (Negative) mg/dL Ur Blood (Man) (Negative) Urine Nitrate (Negative) Urine Bilirubin (Negative) Urine Urobilinogen (<2.0) mg/dL Leukocyte Esterase Rfl (Negative) JULES/UL Urine RBC (0-2) /hpf Urine WBC (0-3) /hpf Ur Squamous Epith Cells (Few) /hpf Urine Bacteria /hpf Urine Casts Hyaline Casts (None) /lpf Nasal MRSA (PCR) Not detected (NOT DETECTE) Influenza A (RT-PCR) Negative (Negative) Influenza B (RT-PCR) Negative (Negative) RSV (RT-PCR) Negative (Negative) SARS-CoV-2 RNA (RT-PCR) Negative (Negative) ABG Data ABG results: 01/31/25 14:49 Puncture Site Left brachial ABG pH 7.423 ABG pCO2 49.6 H ABG pO2 141.0 H ABG PO2/FiO2 Ratio 1.41 ABG HCO3 31.7 H ABG O2 Saturation 98.8 ABG O2 Content 15.4 L ABG Base Excess 6.3 A-a Gradient 522.4 Oxyhemoglobin 98.5 Carboxyhemoglobin 0.2 Reduced Hemoglobin 1.1 Total Hemoglobin 10.9 L O2 Delivery Device Ventilator O2 Liters/Min 0.0 Vent Rate 20 FiO2 100 Imaging Data Radiologist's impression: Impressions Chest X-Ray 01/31/25 14:32 IMPRESSION: Right lower lobe pneumonia. Abdomen X-Ray 01/31/25 14:34 IMPRESSION: NO ACUTE ABDOMINAL FINDINGS. Nasogastric tube with the tip in the body of the stomach. Head CT 01/31/25 15:47 Impression: No acute intracranial hemorrhage or suspicious mass effect. Chest/Abdomen/Pelvis CTA 01/31/25 15:49 IMPRESSION: Right middle and lower lobe pneumonia with dense consolidation. Left basilar atelectasis. No pulmonary embolus. No aortic dissection. Oral contrast opacifies the entirety of the colon. Supportive lines in good position. No acute pathology within the remainder of the examination, as detailed above. Critical Care Time Critical Care Time Critical Care Time: Yes Total Critical Care Time: 35 Discharge Plan Discharge Clinical Impression: Hypercapnia Pneumonia Qualifiers: Pneumonia type: due to unspecified organism Laterality: right Lung location: u nspecified part of lung Qualified Code(s): J18.9 - Pneumonia, unspecified organism Patient Disposition: Still a Patient Condition: Critical
[2025-01-31 14:15] LABS: INR 1.1; Prothrombin Time 14.1 Seconds (11.1-14.7)
[2025-01-31 14:25] LABS: Lactic Acid Reflex 2.7 mmol/L (0.7-2.0)
[2025-01-31] MEDS: FENTANYL 2,500MCG/NS250ML(*CRX 2,500 MCG/250 ML BAG IV CONT (14:30)
[2025-01-31] MEDS: MIDAZOLAM 100MG/NS 100ML(*CRX) 100 MG/100 ML BAG IV CONT (14:32)
--- OUTSIDE RECORDS SUMMARY | 2025-01-31 14:55 | XMS_ITS | Encounter Summary ---
Author Organization [facility] Address Formerly [facility] [place] [address] Care Team Providers Care Accounts Receivable Accountant Name Role Phone Osmany Amezcua MD Primary Care Provider [phone] Saba June LICENSED OCCUPATIONAL THERAPIST-C Primary Care Provider Mike Braden DO Primary Care Provider Pratibha Corado IMPORT/EXPORT ADMINISTRATOR- Primary Care Provider + Encounter Details Date Type Department Care Team (Late st Contact Info) Description 11/26/2017 Abstract [facility] Clinics Conversion Md, Generic Conversion, Social History Tobacco Use Types Packs/Day Years Used Date Smoking Tobacco: Never Assessed Comments Unknown Sex and Gender Information Value Date Recorded Sex Assigned at Female 11/28/2024 8:47 AM BENEFITS SALES CONSULTANT Legal Sex Female 6:18 PM CDT Gender Identity Not on file Sexual Orientation Not on file documented as of this encounter Plan of Treatment Upcoming Encounters Date Type Department Care Team (Late st Contact Info) Description 05/29/2025 10:00 AM CDT Office Visit [facility] [address] [place] [phone] Pratibha Corado, [facility]- [address] [facility], [address] [place] [address] documented as of this encounter Visit Diagnoses Not on filedocumented in this encounter Additional Health Concerns Infection Onset Date Last Indicated Resolved Time COVID-19 Rule Out 12/31/2021 12/31/2021 12/31/2021 9:49 PM BENEFITS SALES CONSULTANT COVID-19 Rule Out 12/26/2022 12/26/2022 12/26/2022 9:18 PM BENEFITS SALES CONSULTANT COVID-19 Rule Out 04/27/2024 04/27/2024 04/27/2024 3:07 PM CDT Respiratory Rule-Out 01/20/2025 01/20/2025 025 2:49 PM BENEFITS SALES CONSULTANT Respiratory Rule-Out 01/23/2025 01/23/2025 025 4:19 PM CDT documented as of this encounter Care Teams Accounts Receivable Accountant Relationship Specialty Start Date End Date Osmany Amezcua MD PCP - General 01/21/13 06/23/20 Saba June, LICENSED OCCUPATIONAL THERAPIST-C PCP - General Nurse Practitioner Family 06/24/2012/17 Mike Braden DO PCP - General FAMILY PRACTICE 01/13/22 02/18/24 Pratibha Corado, IMPORT/EXPORT ADMINISTRATOR- [address] [facility], [address] [place] [id number] PCP - General NURSE PRACTITIONER 02/25/24 documented as of this encounter
--- OUTSIDE RECORDS SUMMARY | 2025-01-31 14:55 | XMS_ITS | Encounter Summary ---
Author Organization [facility] Address [facility] [place] [address] Care Team Providers Care Clean Out Driller Name Role Phone Osmany Amezcua MD Primary Care Provider [phone] Saba June PT ESCORT-C Primary Care Provider Mike Braden DO Primary Care Provider Pratibha Corado HOME CARE COORDINATOR- Primary Care Provider + Encounter Details Date Type Department Care Team (Late st Contact Info) Description 10/16/2015 Abstract [facility] Clinics Conversion Md, Generic Conversion, Social History Tobacco Use Types Packs/Day Years Used Date Smoking Tobacco: Never Assessed Comments Unknown Sex and Gender Information Value Date Recorded Sex Assigned at Female 11/28/2024 8:47 AM ASSESSMENT CLINICIAN Legal Sex Female 6:18 PM CDT Gender Identity Not on file Sexual Orientation Not on file documented as of this encounter Plan of Treatment Upcoming Encounters Date Type Department Care Team (Late st Contact Info) Description 05/29/2025 10:00 AM CDT Office Visit [facility] [address] [place] [phone] Pratibha Corado, [facility]- [address] [facility], [address] [place] [address] documented as of this encounter Visit Diagnoses Not on filedocumented in this encounter Additional Health Concerns Infection Onset Date Last Indicated Resolved Time COVID-19 Rule Out 12/31/2021 12/31/2021 12/31/2021 9:49 PM ASSESSMENT CLINICIAN COVID-19 Rule Out 12/26/2022 12/26/2022 12/26/2022 9:18 PM ASSESSMENT CLINICIAN COVID-19 Rule Out 04/27/2024 04/27/2024 04/27/2024 3:07 PM CDT Respiratory Rule-Out 01/20/2025 01/20/2025 025 2:49 PM ASSESSMENT CLINICIAN Respiratory Rule-Out 01/23/2025 01/23/2025 025 4:19 PM CDT documented as of this encounter Care Teams Clean Out Driller Relationship Specialty Start Date End Date Osmany Amezcua MD PCP - General 01/21/13 06/23/20 Saba June, PT ESCORT-C PCP - General Nurse Practitioner Family 06/24/2012/17 Mike Braden DO PCP - General FAMILY PRACTICE 01/13/22 02/18/24 Pratibha Corado, HOME CARE COORDINATOR- [address] [facility], [address] [place] [id number] PCP - General NURSE PRACTITIONER 02/25/24 documented as of this encounter
--- OUTSIDE RECORDS SUMMARY | 2025-01-31 14:55 | XMS_ITS | Encounter Summary ---
Author Organization [facility] Address [address] [place] [address] Care Team Providers Care Aerodynamic Consultant Name Role Phone Pratibha Corado [facility] Primary Care Provider + Reason for Referral * Imaging (Urgent) - New Request Specialty Diagnoses / Procedures Referred By Contac t Referred To Contact RADIOLOGY Procedures US ABD LIMITED Christ Douglass MD [address] [place] [address] Phone: tel: [phone] fax: Referral ID Status Reason Start Date Expiration Date V isits Requested Visits Authorized New Request 01/29/2025 01/29/2026 1 1 * (Routine) - Canceled Specialty Diagnoses / Procedures Referred By Contac t Referred To Contact Procedures 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 Telemetry [place] [address] Phone: tel: fax: Referral ID Status Reason Start Date Expiration Date V isits Requested Visits Authorized [id number] Canceled 01/23/2025 01/23/2026 1 1 * Imaging (Urgent) - New Request Specialty Diagnoses / Procedures Referred By Contac t Referred To Contact RADIOLOGY Procedures CT HEAD WO CON Shahida Davila MD [address] [place] [address] Phone: tel: [phone] fax: Referral ID Status Reason Start Date Expiration Date V isits Requested Visits Authorized New Request 01/23/2025 01/23/2026 1 1 * Imaging (Urgent) - New Request Specialty Diagnoses / Procedures Referred By Mulugeta t Referred To Contact RADIOLOGY Procedures CT CHEST WO CON Shahida Davila MD [address] [place] [address] Phone: tel: [phone] fax: Referral ID Status Reason Start Date Expiration Date V isits Requested Visits Authorized New Request 01/23/2025 01/23/2026 1 1 * (Routine) - Canceled Specialty Diagnoses / Procedures Referred By Adileneac t Referred To Contact Procedures PT eval and treat [facility] Telemetry [place] [address] Phone: tel: fax: Referral ID Status Reason Start Date Expiration Date V isits Requested Visits Authorized [id number] Canceled 01/22/2025 01/22/2026 1 1 * Imaging (Emergency) - New Request Specialty Diagnoses / Procedures Referred By Contac t Referred To Contact RADIOLOGY Procedures CTA CHEST PE PROTOCOL Moriah Lorenzo PA [address] [place] [address] Phone: tel: fax: Referral ID Status Reason Start Date Expiration Date V isits Requested Visits Authorized [id number] New Request 01/20/2025 01/20/2026 1 1 E PAVER * Imaging (Emergency) - New Request Specialty Diagnoses / Procedures Referred By Mulugeta knapp Referred To Contact RADIOLOGY Procedures CT HEAD WO CON Moriah Lorenzo PA [address] [place] [address] Phone: tel: fax: Referral ID Status Reason Start Date Expiration Date V isits Requested Visits Authorized [id number] New Request 01/20/2025 01/20/2026 1 1 E PAVER Reason for Visit * Reason Comments Breathing Problem * Auth/Cert (Routine) Specialty Diagnoses / Procedures Referred By Mulugeta knapp Referred To Contact Diagnoses Pneumonia Weakness Pneumonia due to infectious organism Procedures NONE hSahida Davila MD [address] [place] [address] Phone: tel: [phone] fax: Referral ID Status Reason Start Date Expiration Date Visits Re quested Visits Authorized [id number] 1 1 Encounter Details Date Type Department Care Team (Late st Contact Info) Description 01/20/2025 11:02 AM STONE PAVER - 01/31/2025 11:07 AM CDT Hospital Encounter [facility] Telemetry [address] [place], [place] [id number] Moriah Lorenzo PA [address] [place] [address] Shahida Davila MD [address] [place], [place] [id number] [phone] (Work) Lexus Barroso MD [address] [place], [place] [id number] [phone] (Work) Christ Douglass MD [address] [place] [address] [phone] (Work) Breathing Problem Discharge Disposition: Long-Term Facility Social History Tobacco Use Types Packs/Day Years Used Date Smoking Tobacco: Never Passive Smoke Exposure: Never Smokeless Tobacco: Never Alcohol Use Standard Drinks/Week Comments No 0 (1 standard drink = 0.6 oz pur e alcohol) B1300 Health Literacy Answer Date Recor ded How often do you need to hav e someone help you when you read instructions, pamphlets, or other written material from your doctor or pharmacy? Patient unable to respond 01/20/2025 [facility] Utilities Answer Date Recorded In the past 12 months has e [employer], gas, oil, or water [employer] threatened to shut off services in your home? Patient unable to answer 01/20/2025 Humiliation, Afraid, Rape, a nd Kick questionnaire Answer Date Recorded Within the last year, have y ou been afraid of your partner or ex-partner? Patient unable to answer 01/20/2025 Within the last year, have y ou been humiliated or emotionally abused in other ways by your partner or ex-partner? Patient unable to answer 01/20/2025 Within the last year, have y ou been kicked, hit, slapped, or otherwise physically hurt by your partner or ex-partner? Patient unable to answer 01/20/2025 Within the last year, have y ou been raped or forced to have any kind of sexual activity by your partner or ex-partner? Patient unable to answer 01/20/2025 Social Connection and Isolation Panel [NHANES] A nswer Date Recorded In a typical week, how many times do you talk on the phone with family, friends, or neighbors? Patient unable to answer 01/20/2025 How often do you get togethe r with friends or relatives? Patient unable to answer 01/20/2025 How often do you attend [facility] or judaism services? Patient unable to answer 01/20/2025 Do you belong to any clubs o r organizations such as yazdanism groups, unions, fraternal or athletic groups, or school groups? Patient unable to answer 01/20/2025 How often do you attend meet ings of the clubs or organizations you belong to? Patient unable to answer 01/20/2025 Are you , , di vorced, , never , or living with a partner? Patient unable to answer 01/20/2025 AUDIT-C Answer Date Recorded Q1: How often do you have a drink containing alcohol? Patient unable to answer 01/20/2025 Q2: How many drinks containi ng alcohol do you have on a typical day when you are drinking? Patient unable to answer Q3: How often do you have si x or more drinks on one occasion? Patient unable to answer 01/20/2025 Overall Financial Resource Strain (CARDIA) Answe r Date Recorded How hard is it for you to pa y for the very basics like food, housing, medical care, and heating? Patient unable to answer 01/20/2025 PHQ-2 Answer Date Recorded Patient Health Questionnaire-2 Score 0 11/28/2024 [facility] - Occupational Stress Questionnaire Answer Date Recorded Do you feel stress - tense, restless, nervous, or anxious, or unable to sleep at night because your mind is troubled all the time - these days? Patient unable to answer 01/20/2025 Exercise Vital Sign Answer Date Recorde d On average, how many days pe r week do you engage in moderate to strenuous exercise (like a brisk walk)? Patient unable to answer 01/20/2025 On average, how many minutes do you engage in exercise at this level? Patient unable to answer 01/20/2025 Hunger Vital Sign Answer Date Recorded Within the past 12 months, y ou worried that your food would run out before you got the money to buy more. Patient unable to answer 01/20/2025 Within the past 12 months, t he food you bought just didn't last and you didn't have money to get more. Patient unable to answer 01/20/2025 PRAPARE - Transportation Answer Date Re corded In the past 12 months, has l ack of transportation kept you from medical appointments or from getting medications? Patient unable to answer 01/20/2025 In the past 12 months, has l ack of transportation kept you from meetings, work, or from getting things needed for daily living? Patient unable to answer 01/20/2025 Housing Stability Vital Sign Answer Cortez e Recorded In the last 12 months, was t here a time when you were not able to pay the mortgage or rent on time? Patient unable to answer 01/20/2025 In the past 12 months, how m any times have you moved where you were living? 1 01/20/2025 At any time in the past 12 m [facility], were you homeless or living in a half-way (including now)? Patient unable to answer 01/20/2025 Comments No Sex and Gender Information Value Date Recorded Sex Assigned at Female 11/28/2024 8:47 AM STONE PAVER Legal Sex Female 6:18 PM CDT Gender Identity Not on file Sexual Orientation Not on file documented as of this encounter Last Filed Vital Signs Vital Sign Reading Time Taken Comments Blood Pressure 136/85 01/31/2025 8:09 AM CDT Pulse 107 01/31/2025 8:09 AM CDT Temperature 36.5 C (97.7 F) 01/31/2025 8:09 AM CDT Respiratory Rate 24 01/31/2025 8:09 AM CDT Oxygen Saturation 90% 01/31/2025 8:09 AM CDT Inhaled Oxygen Concentration - - Weight 37.7 kg (83 lb 1.8 oz) 01/31/2025 3:54 AM CDT Height 152.4 cm (5') 01/20/2025 11:08 AM STONE PAVER Body Mass Index 16.23 01/20/2025 11:08 AM STONE PAVER documented in this encounter Functional Status * Question Answer Date of Assessment Author Status Do you have serious difficulty walking or climbing stairs? Yes 01/20/2025 4:00 PM Adriana Pickett RN A ctive * Question Answer Date of Assessment Author Status Do you have difficulty dressing or bathing? Yes 01/20/2025 4:00 PM Adriana Pickett RN Active Because of a physical, mental, or emotional condition, do you have difficulty doing errands alone such as visiting a doctor's office or shopping? Yes 01/20/2025 4:00 PM Adriana Pickett RN Ac tive * Are you deaf or do you have serious difficulty hearing Answer Date of Assessment Author Status No 01/20/2025 4:00 PM Adriana Pickett RN Active * Are you blind or do you have serious difficulty seeing, even when wearing glasses? Answer Date of Assessment Author Status No 01/20/2025 4:00 PM Adriana Pickett RN Active * Do you have serious difficulty walking or climbing stairs? Answer Date of Assessment Author Status Yes 01/20/2025 4:00 PM Adriana Pickett RN Active * Do you have difficulty dressing or bathing? Answer Date of Assessment Author Status Yes 01/20/2025 4:00 PM Adriana Pickett RN Active * Because of a physical, mental, or emotional condition, do you have difficulty doing errands alone such as visiting a doctor's office or shopping? Answer Date of Assessment Author Status Yes 01/20/2025 4:00 PM Adriana Pickett RN Active documented as of this encounter Mental Status * Question Answer Entry Date Author Status Because of a physical, mental, or emotional condition, do you have serious difficulty concentrating, remembering, or making decisions? Yes 01/20/2025 4:00 PM Adriana Pickett RN Active * Because of a physical, mental, or emotional condition, do you have serious difficulty concentrating, remembering, or making decisions? Answer Entry Date Author Status Yes 01/20/2025 4:00 PM Adriana Pickett RN Active documented in this encounter Discharge Instructions * Attachments The following attachments cannot be sent through Care Everywhere. * Pneumonia Discharge Instructions, Adult (Mongolian) * Amlodipine, ADULT (Mongolian) * Amoxicillin and Clavulanate, ADULT (Mongolian) documented in this encounter Medications at Time of Discharge Acetaminophen 500 MG CapIndications:Age -related osteoporosis without current pathological fracture Take 1,000 mg by mouth every 6 (six) hours as needed (pain). 60 capsule 06/02/2024 amLODIPine (NORVASC) 5 MG tablet Take 1 tablet (5 mg total) by mouth daily. 30 tablet 01/31/2025 amoxicillin-clavul anate (AUGMENTIN) 875-125 MG tablet Take 1 tablet (875 mg total) by mouth every 12 (twelve) hours for 6 days. 12 tablet 01/31/2025 5 B Complex-C Tab tablet Take 1 tablet by mouth daily. bisacodyl EC (DULCOLAX) 5 MG Tab EC tabletIndications: Other constipation Take 2 tablets (10 mg total) by mouth every 8 (eight) hours as needed. If no BM for 3 days 30 tablet 11/28/2024 Cholecalciferol (VITAMIN D3) 50 MCG (2000 UT) CapIndications:Vit franco D deficiency TAKE 1 CAPSULE BY MOUTH ONCE EVERY DAY FOR VITAMIN-D DEFICIENCY 31 capsule 11 09/04/2024 clomiPRAMINE (ANAFRANIL) 25 MG capsule Take 1 capsule (25 mg total) by mouth daily. 01/13/2024 ClomiPRAMINE HCl 50 MG Cap Take 1 capsule (50 mg total) by mouth nightly at bedtime. 04/11/2015 Docusate Sodium (DSS) 100 MG Cap Take 100 mg by mouth 2 (two) times daily. fluticasone propionate (FLONASE) 50 MCG/ACT nasal sprayIndications:M ild intellectual disabilities INHALE 2 SPRAYS IN EACH NOSTRIL EVERY NIGHT AT BEDTIME FOR CHRONIC RHINITIS 16 g 5 09/29/2024 guaiFENesin (ROBITUSSIN) 100 MG/5ML solution Take 10 mLs (200 mg total) by mouth every 4 (four) hours as needed for Cough. loperamide 2 MG capsule Take 1 capsule (2 mg total) by mouth 4 (four) times daily as needed for Diarrhea. magnesium hydroxide (MILK OF MAGNESIA) 400 MG/5ML suspensionIndicati ons:Constipation Take 30 mLs by mouth daily as needed for Constipation. 360 mL 09/04/2024 magnesium oxide (MAG-OX) 250 MG tablet Take 1 tablet (250 mg total) by mouth daily. metoprolol tartrate (LOPRESSOR) 25 MG tabletIndications: Essential hypertension Take 1 tablet (25 mg total) by mouth 2 (two) times daily. 180 tablet 1 11/28/2024 neomycin-bacitraci n-kcdguyqlx-lhxfmp ine 1 % Ointment ointment Apply topically 2 (two) times daily as needed (Lesions). 12/03/2015 omeprazole EC (PRILOSEC OTC) 20 MG tablet Take 1 tablet (20 mg total) by mouth daily. oxybutynin ER 5 MG 24 hr tablet Take 1 tablet (5 mg total) by mouth nightly at bedtime. 12/03/2015 potassium chloride CR (K-TAB) 10 MEQ Tab CR tabletIndications: Hypokalemia Take 2 tablets (20 mEq total) by mouth daily. Corrected script 62 tablet 5 11/28/2024 risperiDONE 0.5 MG tablet Take 1 tablet (0.5 mg total) by mouth nightly at bedtime. 04/25/2012 risperiDONE 1 MG tablet Take 1 tablet (1 mg total) by mouth 2 (two) times daily. 04/11/2015 vitamin C (ASCORBIC ACID) 500 MG tabletIndications: Mild intellectual disabilities Take 1 tablet (500 mg total) by mouth 2 (two) times a day. Corrected script 62 tablet 5 11/28/2024 documented as of this encounter Progress Notes * Tg Schulte, AUTO DISMANTLER - 01/31/2025 11:07 AM CDT Patient is dc this date to [facility] in [place] accepted per Nicolasa for admission today. ELHAM spoke with Nita Hartley in the absence of pt's guardian Mateo Warren who confirmed consent for dc to [facility] today. Mr Warren was aware of anticipated plans from my conversation with him on the and in agreement. SW notified Nichole with the pt's detention as well of dc. She will follow the patient at the SNF until pt is able to return to the detention. Amb was arranged for transport due to pt's confusion and limited mobility. PCS completed for billing. ILPASRR completed by Isabel Ferrara on the . IMM completed as charted on the with pt's guardian Mateo Kelvin. Pt will enter the SNF under her medicare with a greater than three midnight inpatient stay with admit to inpatient orders on 01/21/25. Pt will be skilled status. RN was given the number to call report and AVS was faxed to support transition of care. RN kept informed of plans and SW actions. No further actions planned. SW complete and case closed. 01/31/25 1076 Discharge Planning Support Systems Caregiver staff (Guardian Mateo Warren) Type of Residence senior living Patient expects to be discharged to: senior living Facility( SNF) Insurance Authorization needed No Does the patient need discharge transport arranged? Yes Type of transportation needed? Ambulance Has discharge transport been arranged? Yes IV Infusion at discharge No DME Needed at Discharge No * Mariela Loya RN - 01/31/2025 9:50 AM CDT Problem: Discharge Planning Goal: Knowledge of discharge instructions Outcome: Adequate for Discharge Problem: Pain control/comfort Goal: Promote pain control/comfort Outcome: Adequate for Discharge Problem: Skin integrity, at risk Goal: Absence of new skin breakdown Outcome: Adequate for Discharge Problem: Moisture associated skin impairment Goal: Reduce moisture exposure Outcome: Adequate for Discharge Goal: Absence of new skin breakdown Outcome: Adequate for Discharge Problem: Reduced risk for falls/injury Goal: Reduced Risk for Falls/Injury Outcome: Adequate for Discharge Goal: Reduced Risk of Confusion (Acute vs Chronic) Outcome: Adequate for Discharge Goal: Reduced Risk of Symptomatic Depression Outcome: Adequate for Discharge Goal: Reduced Risk of Altered Elimination Outcome: Adequate for Discharge Goal: Reduced Risk of Dizziness/Vertigo/Balance Outcome: Adequate for Discharge Goal: Reduced Risk of Polypharmacy Outcome: Adequate for Discharge Problem: Mobility Goal: STG - Pt will ambulate Description: The patient will progress during gait training to ambulating 100'- 150'x1 trial w/FWW requiring min assist x 1. Outcome: Adequate for Discharge Problem: Misc. Goal: PT Misc 1 Description: The patient will increase all transfers to min/SBA. Outcome: Adequate for Discharge Problem: Discharge Planning Goal: Knowledge of discharge instructions Outcome: Adequate for Discharge Problem: Activity Intolerance Goal: Improved activity tolerance Outcome: Adequate for Discharge Problem: Airway Clearance - Ineffective Goal: Patent airway Outcome: Adequate for Discharge Problem: Breathing Pattern - Ineffective Goal: Respiratory rate within specified parameters Outcome: Adequate for Discharge Problem: Gas Exchange - Impaired Goal: Adequate oxygenation Outcome: Adequate for Discharge Problem: Tobacco Use Goal: Knowledge of tobacco-use cessation methods Outcome: Adequate for Discharge Problem: Aspiration - Risk of Goal: Absence of aspiration Outcome: Adequate for Discharge Problem: Infection Goal: Absence of infection signs and symptoms Infection/Isolation Outcome: Adequate for Discharge Goal: Knowledge of infection control procedures Infection Outcome: Adequate for Discharge * Vika Dacosta RN - 01/31/2025 1:06 AM CDT Problem: Discharge Planning Goal: Knowledge of discharge instructions Outcome: Progressing Problem: Pain control/comfort Goal: Promote pain control/comfort Outcome: Progressing Problem: Skin integrity, at risk Goal: Absence of new skin breakdown Outcome: Progressing Problem: Moisture associated skin impairment Goal: Reduce moisture exposure Outcome: Progressing Goal: Absence of new skin breakdown Outcome: Progressing Problem: Reduced risk for falls/injury Goal: Reduced Risk for Falls/Injury Outcome: Progressing Goal: Reduced Risk of Confusion (Acute vs Chronic) Outcome: Progressing Goal: Reduced Risk of Symptomatic Depression Outcome: Progressing Goal: Reduced Risk of Altered Elimination Outcome: Progressing Goal: Reduced Risk of Dizziness/Vertigo/Balance Outcome: Progressing Goal: Reduced Risk of Polypharmacy Outcome: Progressing Problem: Discharge Planning Goal: Knowledge of discharge instructions Outcome: Progressing Problem: Activity Intolerance Goal: Improved activity tolerance Outcome: Progressing Problem: Airway Clearance - Ineffective Goal: Patent airway Outcome: Progressing Problem: Breathing Pattern - Ineffective Goal: Respiratory rate within specified parameters Outcome: Progressing Problem: Gas Exchange - Impaired Goal: Adequate oxygenation Outcome: Progressing Problem: Tobacco Use Goal: Knowledge of tobacco-use cessation methods Outcome: Progressing Problem: Aspiration - Risk of Goal: Absence of aspiration Outcome: Progressing Problem: Infection Goal: Absence of infection signs and symptoms Infection/Isolation Outcome: Progressing Goal: Knowledge of infection control procedures Infection Outcome: Progressing * Ruth Stevens, Nurse Shoe Handler II - 01/30/2025 4:40 PM CDT Problem: Discharge Planning Goal: Knowledge of discharge instructions Outcome: Progressing Problem: Pain control/comfort Goal: Promote pain control/comfort Outcome: Progressing Problem: Moisture associated skin impairment Goal: Reduce moisture exposure Outcome: Progressing Goal: Absence of new skin breakdown Outcome: Progressing Problem: Reduced risk for falls/injury Goal: Reduced Risk for Falls/Injury Outcome: Progressing Goal: Reduced Risk of Confusion (Acute vs Chronic) Outcome: Progressing Goal: Reduced Risk of Symptomatic Depression Outcome: Progressing Goal: Reduced Risk of Altered Elimination Outcome: Progressing Goal: Reduced Risk of Dizziness/Vertigo/Balance Outcome: Progressing Goal: Reduced Risk of Polypharmacy Outcome: Progressing Problem: Discharge Planning Goal: Knowledge of discharge instructions Outcome: Progressing Problem: Activity Intolerance Goal: Improved activity tolerance Outcome: Progressing Problem: Airway Clearance - Ineffective Goal: Patent airway Outcome: Progressing Problem: Breathing Pattern - Ineffective Goal: Respiratory rate within specified parameters Outcome: Progressing Problem: Gas Exchange - Impaired Goal: Adequate oxygenation Outcome: Progressing Problem: Aspiration - Risk of Goal: Absence of aspiration Outcome: Progressing Cosigned by Cat Morales RN at 01/30/2025 5:59 PM CDT * Tg Schulte LCSW - 01/30/2025 2:17 PM CDT Pt is accepted at [facility] per Nicolasa including for admission today. Pending reviewof CBC which has been drawn the patient may yet dc today. Per Nicolasa the pt is able to admit later this afternoon. ELHAM spoke with Mateo Kelvin at [facility] who wants to be notified once confirmation of dc is known. Important Message from Medicare provided to patient/patient sales representative public utilities(guardian Mateo Warren). Education provided and patient/patient sales representative public utilities verbalized understanding and gave verbal permission to sign the IMM. Copy placed into chart for scanning and placed in dc packet to accompany the patient. 2:25 Upon review of most recent labs hospitalist plans to monitor overnight before moving forward with discharge. ELHAM has notified pt's guardian Mateo Warren as well as the [place] admissions manager Nicolasa. Mr Warren is working remotely tomorrow but indicated to call the consent line and he will have notes in her chart that reflect he is agreeable to dc to [facility] in [place] at time of dc. * Tg Schulte LCSW - 01/30/2025 1:27 PM CDT 01/30/25 1323 Interdisciplinary Group Conference Team Members Present Physician;Case/Care management;Nursing;Pharmacy Physician present for group conference Dr Douglass Patient Current Status Paient current status Inpatient Barriers to Discharge Inpatient Review Barriers to Discharge Inpatient No Barrier- Medical Milestone in Process Other follow up (Comment) Pt's guardian Mateo Warren requested new referral to [facility] in [place] and if accepted prefers placement at [facility] over [facility]. No Barrier- Medical Milestone in Process follow up Abd US and chest xray this am-elevated WBC from 8 to 13 per labs this am. Complex Behavior follow up Pt can dc without 24 hr sitter free criteria as needs are reflected thatthe sitter is present only to insure the IV access is intact given pt has removed lines during her stay Patient expects to be discharged to Patient expects to be discharged to: senior living Facility( SNF) * Nichole Ken PTA - 01/30/2025 12:34 PM CDT 01/30/25 1110 Therapy Visit Ordering Provider MD Otoniel Subjective Rm [id number]: RN ok to see. Pt in bed, agreeable with encouragement. Reason for admission DX: PNA due to infectious organism Relevant Comorbidities/ Personal Factors to PT PMHX: Vitamin D deficiency, hypokalemia, anxiety, schizophrenia, GERD, HTN, bladder disorder, CP, patient is nonverbal Verified Two Patient Identifiers Yes Patient consents to therapy Yes Acute Inpatient PT Time Calculation PT Start Time 1110 PT Stop Time 1127 PT Time Calculation (min) 17 min Precautions Weight Bearing Status Full weight bearing General Precautions Fall Risk;Bed Alarm;Chair Alarm PPE Used Face mask;Gloves Instructed on Precautions Yes;Needs reinforcement and education Home Living Home Living Comments patient is nonverbal at baseline Pain Pain Patient does not offer or c/o pain Activity Tolerance Endurance Tolerates 10 - 20 min activity with rests Endurance Quality Fair Limiting Factors to Endurance Acute deconditioning;Weakness Pre-activity VS SpO2 93% on RA VS Response During Activity SpO2 95% on RA post gait Activity Tolerance Comments Supine to sit with mod/max assist. Instructed pt in STS and short distance gait with min/mod x 2 with B CHILDREN'S AUTHOR. Cognition Overall Cognitive Status Impaired Attention Span Difficulty attending to directions Following Commands Follows one step commands inconsistently Initiation Cues to initiate tasks Bed Mobility Supine to Sit Mod assist to right;Max assist to right Sit to Supine Min assist to right TRANSFERS Sit to Stand Min assist;Mod assist;Assist of 2 Other (Comment) B CHILDREN'S AUTHOR Gait Gait Assistance Min assist;Mod assist;Assist of 2;With gait belt Assistive Device Other (Comment) (B CHILDREN'S AUTHOR) Distance Ambulated (ft) 45 ft Pattern Shuffle steps;R Foot flat;L Foot flat (narrow MOIRA) Other (Comment) Fluccuating amount of assist. VCs to stand upright. Unsteadiness at times when attempting to let go of CHILDREN'S AUTHOR but no LOB noted. Balance Sitting - Static Min Assist;Mod Assist;Support of both upper extremities Sitting - Dynamic Mod Assist;Support of both upper extremities Standing - Static Min Assist;Mod Assist;Assist of 2 Persons;Support of both upper extremities Standing - Dynamic Mod Assist;Assist of 2 Persons;Support of both upper extremities Other (Comment) CHILDREN'S AUTHOR Patient/Family Training Bed Mobility x Transfer Training x Gait Training x Precautions x Discharge Recommendation PT Recommendation Home with assistance;Home PT;PT at jail Facility (PT @ detention vs SNF pend progress) PT Equipment Recommended To Be Determined Plan PT Treatments/Interventions Gait Training;Therapeutic Exercises;Therapeutic Activities;Neuromuscular re-education Progress Slow progress, cognitive deficits PT Frequency 5 times/week If this is the last treatment note,it will serve as the discharge summary Yes End of Session End of Session Safety Bed alarm set/activated;Call light within reach;Nursing aware of session Interdisciplinary Collaboration RN * Christ Douglass MD - 01/30/2025 12:07 PM CDT Hospitalist Daily Progress Note Subjective Patient seen and evaluated earlier this morning. Patient is nonverbal at baseline but does not appear in any distress currently. However nursing staff notes that she is not eating as much today and seems to be less active today. Unable to obtain review of systems due to patient's clinical condition. Patient is currently on room air. Occasionally tachycardic still. LFTs now starting to improve butWBC now elevated to 13, recheck 14. Objective Filed Vitals: 01/30/25 0453 01/30/25 0736 01/30/25 0803 01/30/25 1056 BP: (!) 151/94 137/88 Pulse: (!) 116 (!) 118 Resp: 20 Temp: 98.2 ??F (36.8 ??C) 97.5 ??F (36.4 ??C) TempSrc: Axillary SpO2: 94% 91% 91% Weight: 38.4 kg (84 lb 10.5 oz) Height: Physical Exam: -GENERAL: Cachectic, ill-appearing but no acute distress currently -EYES: Extraocular movements intact -ENT: Neck supple -LUNG: Slightly diminished breath sounds at bases bilaterally but currently on room air -CVS: Regular rate rhythm, S1 and S2 normal -ABDOMEN: Soft, nondistended -EXT: no lower Ext edema. -NEURO: Alert, awake, not oriented, does not follow commands, nonverbal Intake/Output 24H Total: Intake/Output Summary (Last 24 hours) at 01/30/2025 1207 Last data filed at 01/29/2025 1700 Gross per 24 hour Intake 75 ml Output -- Net 75 ml Medication acetylcysteine 20 % 400 mg Nebulization 3 times daily RT albuterol 5 mg Nebulization 3 times daily RT amLODIPine 5 mg Oral Daily clomiPRAMINE 25 mg Oral Daily And clomiPRAMINE 50 mg Oral Nightly at bedtime heparin (porcine) 5,000 Units Subcutaneous 2 times per day metoprolol tartrate 25 mg Oral BID pantoprazole 40 mg Intravenous Daily risperiDONE 1 mg Oral BID And risperiDONE 0.5 mg Oral Nightly at bedtime solifenacin succinate 10 mg Oral Daily triamcinolone Topical BID vitamin D3 2,000 Units Oral Daily acetaminophen, acetaminophen, albuterol, bisacodyl EC, fluticasone propionate, hydrALAZINE Labs: Recent Labs Lab 01/24/25 0612 01/25/25 0559 01/26/25 0628 01/27/25 0559 01/28/25 0737 01/29/25 1028 01/30/25 0635 WBC 10.90 9.63 9.88 6.75 6.46 8.49 13.84* RBC 4.12* 4.01* 4.44 3.64* 4.33 4.17* 4.22 HGB 11.5* 11.4* 12.7 10.4* 12.4 12.0 11.9* HCT 38.7 37.2* 40.8 32.8* 39.3 38.2 38.5 MCV 93.9 92.8 91.9 90.1 90.8 91.6 91.2 MCH 27.9 28.4 28.6 28.6 28.6 28.8 28.2 MCHC 29.7* 30.6* 31.1* 31.7* 31.6* 31.4* 30.9* PLT 238 245 246 202 201 229 211 RDW 14.2 14.2 13.9 13.4 13.5 13.6 14.1 MPV 11.0 10.9 11.2 11.2 11.3 11.2 12.3* PERNEU 81.4 79.1 67.2 62.7 62.7 77.0 85.3 PERLYM 11.7 14.0 25.2 28.6 26.2 12.7 7.9 PERMON 6.5 6.5 7.2 8.4 10.4 9.7 6.1 NEUC 8.87* 7.61 6.64 4.23 4.06 6.54 11.82* LYMC 1.28 1.35 2.49 1.93 1.69 1.08 1.09 MONOC 0.71 0.63 0.71 0.57 0.67 0.82 0.84 EOSC 0.00* 0.00* 0.00* 0.00* 0.00* 0.00* 0.00* BASOC 0.01 0.01 0.01 0.00* 0.01 0.01 0.01 DTYPE AUTOMATED DIFFERENTIAL AUTOMATED DIFFERENTIAL AUTOMATED DIFFERENTIAL AUTOMATED DIFFERENTIAL AUTOMATED DIFFERENTIAL AUTOMATED DIFFERENTIAL AUTOMATED DIFFERENTIAL Recent Labs Lab 01/24/25195401/25/25 0559 01/26/25 0628 01/27/25 0559 01/28/25 0737 01/29/25 1028 01/30/25 0635 NA 151* 149* 147* 144 142 146* 144 K 3.4* 3.2* 3.4* 2.9* 3.4* 3.5 3.5 CL 111 110 109 106 106 108 107 CO2 42.0* 37.7* 35.0* 36.4* 33.6* 36.3* 33.3* AGAP NOT CALCULATED 1.3* 3.0 1.6* 2.4 1.7* 3.7 BUN 10 12 14 8 8 15 9 CR 0.43* 0.68 0.63 0.45* 0.54* 0.53* 0.43* BUNCREATININ 23.4 17.7 22.3 17.9 14.7 28.1* 21.0 GLU 105* 104* 72 107* 108* 121* 98 CA 9.2 9.3 10.1 8.9 8.9 9.3 9.2 TP -- -- -- -- 7.6 7.8 7.5 ALB -- -- -- -- 2.2* 2.4* 2.2* TBIL -- -- -- -- 1.5* 0.6 0.4 ALKP -- -- -- -- 94 156* 142* AST -- -- -- -- 182* 219* 102* ALT -- -- -- -- 152* 267* 192* No results for input(s): CHOL , TRI , HDL , LDL , HGBA1C , TSH in the last 168 hours. No results for input(s): APTT , INR , PTT in the last 168 hours. No results for input(s): TROP , TROPIWB , CKMB , CPK in the last 168 hours. Recent Labs Lab 01/23/25 2120 01/28/25 0737 01/29/25 1028 PROCT <0.05 0.07 0.15 Recent Labs Lab 01/25/25 1033 PH 7.44 PCO2 53.0* PO2 89.0 [id number] BICARBWB 36.0* BASEEXCESS 9.9* No results found. However, due to the size of the patient record, not all encounters were searched.Please check Results Review for a complete set of results. X-Ray Radiology Results (Last 30 days) 01/30/25 0934 US ABD LIMITED Final result Impression: =====IMPRESSION:===== Cholelithiasis without sonographic evidence for acute cholecystitis. Ordered By: CHRIST DOUGLASS Interpreted By: Yoel Caal MD, 01/30/2025 9:36 AM 01/26/25 1013 XR SPEECH SWALLOW KRISTINA ONLY Final result Impression: =====IMPRESSION:===== No aspiration. Please see speech pathology recommendations. Ordered By: RADHA RODRIGEZ Interpreted By: Jorge Arroyo MD, 01/26/2025 5:09 PM 01/26/25 0437 XR CHEST PORTABLE Final result Impression: IMPRESSION: There is worsening consolidation or atelectasis in the right lower lung with possible right-sided volume loss with mild mediastinal shift to the right. Referred By: Interpreted By: Kurt Crowder MD, 01/26/2025 4:40 AM 01/24/25 0442 XR CHEST PORTABLE Final result Impression: IMPRESSION: Mild improved aeration of the right lung with significant infiltrate persisting in the mid and lower lung. Referred By: Interpreted By: Kurt Crowder MD, 01/24/2025 5:16 AM 01/23/[address] HEAD WO CON Final result Impression: =====IMPRESSION:===== 1. Stable noncontrast CT of the head; no acute intracranial process identified. 2. Chronic senescent changes including mild volume loss and cerebral white matter chronic small vessel ischemic change. New 3. Nonspecific generalized calvarial hyperostosis. (CT has limited sensitivity for detection of acute ischemia). If acute ischemia is of clinical concern MRI can be considered. Ordered By: SHAHIDA DAVILA Interpreted By: Henrry Luna MD, 01/23/2025 4:26 PM 01/23/[address] CHEST WO CON Final result Impression: Impression: 1. Interval development of right lung multifocal multilobar airspace consolidation with air bronchograms in the right upper, middle and lower lobes. 2. Chronic moderate elevation right hemidiaphragm, uncertain etiology. 3. Mild anemia. Ordered By: SHAHIDA DAVILA Interpreted By: Henrry Luna MD, 01/23/2025 4:36 PM 01/23/25 1412 XR CHEST PORTABLE Final result Impression: IMPRESSION: 1. INTERVAL DEVELOPMENT OF NEW ABNORMAL PARENCHYMAL OPACITY RIGHT MIDDLE AND LOWER LUNG CONSISTENT WITH ACUTE PNEUMONIA. Signed: Star Catalan MD Referred By: Interpreted By: Star Catalan MD, 01/23/2025 2:18 PM 01/20/25 1419 CTA CHEST PE PROTOCOL Final result Impression: IMPRESSION: 1. No CT evidence of pulmonary thromboembolism. 2. Dependent secretions and/or mucous plugging in the left mainstem bronchus and left lower lobe bronchi. Patchy bibasilar opacities could be due to atelectasis or infection. 3. Please see above for additional chronic, incidental, and nonemergent findings elsewhere. Referred By: Interpreted By: Vincnet Marcus MD, 01/20/2025 2:28 PM 01/20/[address] HEAD WO CON Final result Impression: IMPRESSION: No acute findings Ordered By: MORIAH LORENZO Interpreted By: Gerard Narayan MD, 01/20/2025 12:28 PM 01/20/25 1217 XR CHEST PA+LAT Final result Impression: IMPRESSION: ======== 1. Minimal infiltrates or atelectasis at the right lung base Referred By: Interpreted By: Stephen Wall MD, 01/20/2025 12:21 PM Assessment & Plan: Aspiration pneumonia No signs of sepsis on admission. PCT <0.05 Respiratory PCR negative Sputum cx ordered, not yet obtained. CTA chest (01/20) with dependent secretions with mucous plugging in the left main bronchus and left lower lobe bronchi with patchy bibasilar opacities Repeat CT chest (01/23) with interval development of right lung multifocal multilobar airspace consolidation with air bronchograms in the right upper, middle and lower lobes. Pulm consulted, appreciate recs. IV azithromycin (01/20-01/24) IV Rocephin (01/20 - 01/23) changed to IV Vanc (01/23-01/25)/Cefepime (01/23 - 01/24) Vanc dc'd secondary to MRSA screen neg. Again changed to IV Zosyn (01/24 - ) MBS performed on 01/26 with no evidence of aspiration despite coughing especially with swallowing. Continue Zosyn IV through 01/28 evening, completed Now on room air -01/30: Ordered chest x-ray which showed Similar right basilar consolidation, compatible with pneumonia. As patient was already treated with IV Zosyn, will start p.o. Augmentin and monitor WBC Acute respiratory failure with hypoxia and hypercapnea Suspect related to recurrent aspiration. Resp panel (01/20 and 01/23) neg. ABG (01/23): 7.49/60/47.5/77 O2 sats had been reasonable on 2L until 01/23 when sPO2 down to 87% on RA with increased work of breathing. Placed on 40L Optiflow with low FIO2 to help with CO2 washout, however had intermittent compliance with use. Repeat ABG 7.44/53/37.6/89 Doubt patient would be able to use acapella or IS with her mental status. Currently resolved and on Room Air. Continue Zosyn IV through 01/28 evening, completed Now on room air Leukocytosis: -01/30: WBC this morning jumped from 8->13, repeat 14 - No true fevers but did have an elevated temperature 99 at 1 time - Order procalcitonin, -01/30: Ordered chest x-ray which showed Similar right basilar consolidation, compatible with pneumonia. As patient was already treated with IV Zosyn, will start p.o. Augmentin and monitor WBC Hypernatremia Na up to 154 at one point IV fluids with D5 1/2NS. Na improving, now down to 147>144>142>146>14 Monitor/adjust fluids as needed. Discontinue D5 IV fluids Hypokalemia K 3.3 on admission Today K 2.8 --> 5.2 --> 2.6 on 01/24. Suspect 5.2 was a lab error Replaced with IV KCl Unable to take po. Now up to 3.4. Continue to replace. -01/27: K 2.9, replace via IV, check mag and phos -01/28: K 3.4, replace via IV, mag 2.1 -01/29: K 3.5, mag 2.4, phos 3.0 Potassium stable now Mild transaminitis: - was wnl previously during hospitalization - now AST 182>219>102, ALT 152>267>192 -Bili 1.5>0.6 -Ordered RUQ u/s, did show cholelithiasis but did did not show acute cholecystitis -hep panel negative - monitor for now R facial droop: Improved Noted on 01/23. CT head with chronic senescent changes including mild volume loss and cerebral white matter chronicsmall vessel ischemic change - no acute issues. Neuro checks. Not clear on exam today. Could consider MRI, however overall prognosis is very poor overall and appears resolved. Elevated D dimer Suspect related to resp issues/infection as above. CTA chest neg Cerebral palsy/schizophrenia/nonverbal Resides at detention prior to admission. At baseline, nonverbal, but walks around independently Supportive care Continue home medications PT/OT to determine if patient needs rehab prior to return back to detention. HTN: - bp now stable -Switched to oral metoprolol -Continue amlodipine - monitor BP DVT prophylaxis Heparin Sub Q SDOH Patient lives in detention and is a bear of the state. Code status FULL CODE Parth Warren is her state appointed guardian. Disposition: Watch WBC and LFTs. Monitor 1 more night pending trend of WBC and LFTs. Other changes to plan of care to be made based on progress during hospitalization. All plans discussed with RN and patient. They are agreeable with plan and voiced understanding. This note was dictated with [employer] medical dictation software; misspellings, punctuation errors, omitted words or dictation variances may occur. Christ Douglass MD 01/30/2025 12:07 PM * Pratibha Beavers RD - 01/30/2025 11:51 AM CDT CLINICAL DIETITIAN ASSESSMENT NUTRITION ASSESSMENT Past Medical History: Diagnosis Date Abdominal pain 04/10/2014 Mild intellectual disabilities Non-smoker Non-verbal learning disorder Osteoporosis Initial History (01/30/2025): Registered Dietitian (RD) completing an initial assessment secondary to MST score of 3 and low BMI.Patient is a 69-year-old female admitted secondary to Pneumonia [J18.9] Weakness [R53.1] Pneumonia due to infectious organism [J18.9]. Patient presented from a detention with acute shortness of breath. EMS and the detention staff reported the patient had acute signs of trouble breathing after she was eating. Patient noted to have aspiration pneumonia. Weight history (01/30/2025): Per EHR patient noted to have significant weight loss of 15.6% in approximately 6 months. 01/30/25: 38.4 kg (bed) 07/19/24: 45.5 kg (office visit) Diet history (01/30/2025): Unable to obtain at this time due to patient being nonverbal and no family in room. Food allergies/intolerances: NKFA per EHR Cultural/Advent food preferences: None reported in EHR Food Insecurity: Patient Unable To Answer (01/20/2025) Hunger Vital Sign Worried About Running Out of Food in the Last Year: Patient unable to answer Ran Out of Food in the Last Year: Patient unable to answer Cardiorespiratory: in room air Neuro: Unable to determine; nonverbal at baseline Edema: trace BLE edema noted per EHR GI: abdomen WDL with positive bowel sounds per lace mender; last BM documented on 01/28/25 Chewing/swallowing problems: Yes; LUDLOW MACHINE OPERATOR saw patient on 01/26/25 and recommend puree diet with thin liquids. Skin: intact Nutrition-focused physical findings: Unable to conduct full exam at this time due to patient getting blood drawn. Mild muscle loss noted in the following area(s): synagogue region. Patient likely meets for malnutrition. Will conduct rest of NFPE at follow up. Labs: Reviewed. No nutrition-related concerns requiring intervention at this time. Recent Labs Lab 01/23/25 2054 01/25/25 1113 01/25/25 1557 01/26/25 0530 01/26/25 1015 01/26/25 1608 GLUCOSEPOC 97 96 148* 72 87 133* Recent Labs Lab 01/26/25 0628 01/27/25 0559 01/28/25 0737 01/29/25 1028 01/30/25 0635 NA 147* < > 142 146* 144 K 3.4* < > 3.4* 3.5 3.5 MAGNESIUM 2.1 -- 2.1 2.4 -- PHOS -- -- -- 3.0 -- BUN 14 < > 8 15 9 CR 0.63 < > 0.54* 0.53* 0.43* GFREST >90 < > >90 >90 >90 GLU 72 < > 108* 121* 98 CRP -- -- 1.44* 1.63* -- < > = values in this interval not displayed. HGB A1C Date Value Ref Range Status 07/28/2024 5.4 <5.7 % Final Comment: ADA GUIDELINES 2010 5.7 TO 6.4% INCREASED RISK OF DIABETES > OR = 6.5% CONSISTENT WITH DIABETES [place] [address] 03/03/2021 5.5 <5.7 % Final Comment: ADA GUIDELINES 2010 5.7 TO 6.4% INCREASED RISK OF DIABETES > OR = 6.5% CONSISTENT WITH DIABETES TEST[place] [address] Meds: Reviewed. No nutrition-related concerns noted at this time. acetylcysteine 20 % 400 mg Nebulization 3 times daily RT albuterol 5 mg Nebulization 3 times daily RT amLODIPine 5 mg Oral Daily clomiPRAMINE 25 mg Oral Daily And clomiPRAMINE 50 mg Oral Nightly at bedtime heparin (porcine) 5,000 Units Subcutaneous 2 times per day metoprolol tartrate 25 mg Oral BID pantoprazole 40 mg Intravenous Daily risperiDONE 1 mg Oral BID And risperiDONE 0.5 mg Oral Nightly at bedtime solifenacin succinate 10 mg Oral Daily triamcinolone Topical BID vitamin D3 2,000 Units Oral Daily Anthropometrics: Admission weight: 39.6 kg (Date: 01/20/25; Method: Not recorded) Last 5 Recorded Weights 01/24/25 0459 01/25/25 0413 01/26/25 0423 01/27/25 0439 Weight: 39 kg (85 lb 15.7 oz) 38.4 kg (84 lb 10.5 oz) 39.5 kg (87 lb 1.3 oz) 39.5 kg (87 lb 1.3 oz) 01/30/25452 Weight: 38.4 kg (84 lb 10.5 oz) Weight status: No concerns at this time. Weight of 42.4 kg obtained on 01/21/25 likely outlier. Height: 152.4 cm Actual Body Weight (ABW): 38.4 kg [place] Body Weight (IBW): 45.4 kg (ABW is 85% of IBW) Body Mass Index (BMI): 16.5 kg/m?? (Underweight) Estimated Nutrient Needs: Calories: 1238 kcal/day based on [place] Jeor x 1.5 (older adult) Protein: 58-77 gm/day based on 1.5-2 gm/kg, using ABW (older adult) Fluid: 1500 mL/day based on minimum intake recommendation for older adults Current diet order: Diet Dysphagia (IDDSI) 4-PUREED; 0-Thin; Appropriate Current diet appropriate? Yes; per LUDLOW MACHINE OPERATOR recommendations Current intake sufficient to meet nutritional needs? Patient likely meeting nutritional needs; PO intake of meals has not been consistently reported in EHR. However, per review of [employer], patient has been ordering an average of 1992 kcal/day (161% of estimated needs) and 98 gm/day protein (127% of estimated needs) over the past 3 days. Based on 1-day review of PO intake per EHR and [employer], patient consumed an average of 1407 kcal/day (113% of estimated needs) and 71 gm/day protein (92% of estimated needs). Fluid intake is improving. Pain affecting PO intake? Unable to determine Nutrition Education: no needs identified at this time NUTRITION DIAGNOSIS Underweight related to decreased ability to consume sufficient energy intake as evidenced by BMI of16.5. NUTRITION INTERVENTION Nutrition prescription: Dysphagia diet with food/fluid consistency per LUDLOW MACHINE OPERATOR recommendation + ONS (Ensure Plus once daily) Plan: 1. Continue dysphagia diet as tolerated with food/fluid consistency per LUDLOW MACHINE OPERATOR recommendation. 2. Initiate ONS of Ensure Plus once daily with lunch. 3. Labs: BMP, Mg and Phos at least three times weekly. Replete electrolytes as indicated. 4. Weigh patient at least twice weekly. Discharge nutrition plan: Discharge needs assessed. Will provide/update discharge instructions as needed. MONITORING/EVALUATION 01/30/2025 Goals: 1. PO intake will meet at least 90% of estimated kcal/protein needs based on 3- day average intake per review of EHR and [employer] at follow up. 2. Weight stable within 2% of current weight (38.4 kg) at follow up. Pratibha Frank RD, LDN * Tg Schulte LCSW - 01/30/2025 9:10 AM CDT Call received from Mateo Warren indicating he would like to have an outcome from [facility] [place] regarding ability to meet this patient's care needs. ELHAM spoke with Narda from [facility] and referral sent. * Vika Dacosta RN - 01/30/2025 1:46 AM CDT Problem: Discharge Planning Goal: Knowledge of discharge instructions Outcome: Progressing Problem: Pain control/comfort Goal: Promote pain control/comfort Outcome: Progressing Problem: Skin integrity, at risk Goal: Absence of new skin breakdown Outcome: Progressing Problem: Moisture associated skin impairment Goal: Reduce moisture exposure Outcome: Progressing Goal: Absence of new skin breakdown Outcome: Progressing Problem: Reduced risk for falls/injury Goal: Reduced Risk for Falls/Injury Outcome: Progressing Goal: Reduced Risk of Confusion (Acute vs Chronic) Outcome: Progressing Goal: Reduced Risk of Symptomatic Depression Outcome: Progressing Goal: Reduced Risk of Altered Elimination Outcome: Progressing Goal: Reduced Risk of Dizziness/Vertigo/Balance Outcome: Progressing Goal: Reduced Risk of Polypharmacy Outcome: Progressing Problem: Discharge Planning Goal: Knowledge of discharge instructions Outcome: Progressing Problem: Activity Intolerance Goal: Improved activity tolerance Outcome: Progressing Problem: Airway Clearance - Ineffective Goal: Patent airway Outcome: Progressing Problem: Breathing Pattern - Ineffective Goal: Respiratory rate within specified parameters Outcome: Progressing Problem: Gas Exchange - Impaired Goal: Adequate oxygenation Outcome: Progressing Problem: Tobacco Use Goal: Knowledge of tobacco-use cessation methods Outcome: Progressing Problem: Aspiration - Risk of Goal: Absence of aspiration Outcome: Progressing * Nichole Ken PTA - 01/29/2025 2:57 PM CDT 01/29/25 1345 Therapy Visit Ordering Provider MD Otoniel Subjective Rm [id number]: RN ok to see, reports pt didn't sleep much lastnight. Pt in bed with sitter present. Reason for admission DX: PNA due to infectious organism Relevant Comorbidities/ Personal Factors to PT PMHX: Vitamin D deficiency, hypokalemia, anxiety, schizophrenia, GERD, HTN, bladder disorder, CP, patient is nonverbal Verified Two Patient Identifiers Yes Patient consents to therapy Yes Acute Inpatient PT Time Calculation PT Start Time 1345 PT Stop Time 1404 PT Time Calculation (min) 19 min Precautions Weight Bearing Status Full weight bearing General Precautions Fall Risk;Bed Alarm;Chair Alarm PPE Used Face mask;Gloves Instructed on Precautions Yes;Needs reinforcement and education Home Living Home Living Comments patient is nonverbal at baseline Pain Pain Patient does not offer or c/o pain Activity Tolerance Endurance Tolerates 10 - 20 min activity with rests Endurance Quality (poor to fair) Limiting Factors to Endurance Acute deconditioning;Weakness Activity Tolerance Comments Noted pt soiled with urine. Extra time for clean up and donning of new depends. Supine to sit with mod assist with VC/TC for technique. Pt performed 3 trials of STS with mod x 1 and SBA x 1 and CHILDREN'S AUTHOR. Upon encouragement to take steps forward x 2 attempts, pt immediately sat back on EOB and attempted to lay back into bed. Deferred gait for safety. Cognition Overall Cognitive Status Impaired Attention Span Difficulty attending to directions Following Commands Follows one step commands inconsistently Initiation Cues to initiate tasks Bed Mobility Rolling Mod assist to right;Mod assist to left Supine to Sit Mod assist to right Sit to Supine Mod assist to left TRANSFERS Sit to Stand Mod assist (SBA x 1 for safety) Other (Comment) B CHILDREN'S AUTHOR Gait Other (Comment) deferred Balance Sitting - Static Mod Assist;Support of both upper extremities Sitting - Dynamic Mod Assist;Max Assist;Support of both upper extremities Standing - Static Mod Assist;Support of both upper extremities Standing - Dynamic Mod Assist;Assist of 2 Persons;Support of both upper extremities Other (Comment) CHILDREN'S AUTHOR Patient/Family Training Bed Mobility x Transfer Training x Precautions x Discharge Recommendation PT Recommendation Home with assistance;Home PT;PT at jail Facility (PT @ detention vs SNF pend progress) PT Equipment Recommended To Be Determined Plan PT Treatments/Interventions Gait Training;Therapeutic Exercises;Therapeutic Activities;Neuromuscular re-education Progress Slow progress, cognitive deficits PT Frequency 5 times/week If this is the last treatment note,it will serve as the discharge summary Yes End of Session End of Session Safety Bed alarm set/activated;Call light within reach;Nursing aware of session Interdisciplinary Collaboration RN, MEDICAL TRANSPORT SPECIALIST End of Session Comment left with sitter present * Tg Schulte LCSW - 01/29/2025 11:54 AM CDT Per [facility] the [facility] is able to admit once pt is ready without sitter free 24 hrs threshold met as the sitter is not for behaviors other than pulling out previous IV access. 01/29/25 1148 Interdisciplinary Group Conference Team Members Present Physician;Case/Care management;Nursing;Pharmacy;Herb Digger Physician present for group conference Dr Douglass Patient Current Status Paient current status Inpatient Barriers to Discharge Inpatient Review Barriers to Discharge Inpatient No Barrier- Medical Milestone in Process Other follow up (Comment) Accepted at the [facility] without 24 hr sitter free parameter met as once the IVaccess line is dc the sitter will no longer be needed-but the line is still needed for labs. No Barrier- Medical Milestone in Process follow up Elevated LFT's-RUQ US planned. Administering IV meds follow up IV Zosyn dc Patient expects to be discharged to Patient expects to be discharged to: senior living Facility( SNF) * Ceci Rosas RN - 01/29/2025 11:17 AM CDT Problem: Discharge Planning Goal: Knowledge of discharge instructions Outcome: Progressing Problem: Discharge Planning Goal: Knowledge of discharge instructions Outcome: Progressing Problem: Pain control/comfort Goal: Promote pain control/comfort Outcome: Met This Shift Problem: Skin integrity, Impaired-wound Goal: Absence of new skin breakdown Outcome: Met This Shift Problem: Skin integrity, Impaired-pressure injury/ulcer Goal: Absence of new skin breakdown Outcome: Met This Shift Problem: Skin integrity, at risk Goal: Absence of new skin breakdown Outcome: Met This Shift Problem: Moisture associated skin impairment Goal: Reduce moisture exposure Outcome: Met This Shift Goal: Absence of new skin breakdown Outcome: Met This Shift Problem: Reduced risk for falls/injury Goal: Reduced Risk for Falls/Injury Outcome: Met This Shift Goal: Reduced Risk of Confusion (Acute vs Chronic) Outcome: Met This Shift Goal: Reduced Risk of Symptomatic Depression Outcome: Met This Shift Goal: Reduced Risk of Altered Elimination Outcome: Met This Shift Goal: Reduced Risk of Dizziness/Vertigo/Balance Outcome: Met This Shift Goal: Reduced Risk of Polypharmacy Outcome: Met This Shift Problem: Activity Intolerance Goal: Improved activity tolerance Outcome: Met This Shift Problem: Airway Clearance - Ineffective Goal: Patent airway Outcome: Met This Shift Problem: Breathing Pattern - Ineffective Goal: Respiratory rate within specified parameters Outcome: Met This Shift Problem: Gas Exchange - Impaired Goal: Adequate oxygenation Outcome: Met This Shift Problem: Tobacco Use Goal: Knowledge of tobacco-use cessation methods Outcome: Met This Shift Problem: Aspiration - Risk of Goal: Absence of aspiration Outcome: Met This Shift * Tg Schulte LCSW - 01/29/2025 11:07 AM CDT Per Esper[facility] with [facility] the patient is able to enter the facility without 24 hour sitter free parameter being met as the only reason for the sitter is to protect the IV access line. The facility is able to accept for admission once medically ready for dc. Labs are pending at this time. * Christ Douglass MD - 01/29/2025 8:57 AM CDT Hospitalist Daily Progress Note Subjective Patient seen and evaluated earlier this morning. Patient is nonverbal at baseline but does not appear in any distress currently. No acute issues per nursing staff. Unable to obtain review of systems due to patient's clinical condition. Patient is currently on room air. Occasionally tachycardic still. LFTs worsening. Objective Filed Vitals: 01/29/25 0020 01/29/25 0253 01/29/25 0514 01/29/25 0814 BP: (!) 122/105 (!) 150/91 (!) 146/97 137/82 Pulse: (!) 117 (!) 109 (!) 108 (!) 112 Resp: 18 18 19 Temp: 97.7 ??F (36.5 ??C) 97.5 ??F (36.4 ??C) 98.5 ??F (36.9 ??C) TempSrc: Temporal Temporal Axillary SpO2: 95% 98% 98% Weight: Height: Physical Exam: -GENERAL: Cachectic, ill-appearing but no acute distress currently -EYES: Extraocular movements intact -ENT: Neck supple -LUNG: Slightly diminished breath sounds at bases bilaterally but currently on room air -CVS: Regular rate rhythm, S1 and S2 normal -ABDOMEN: Soft, nondistended -EXT: no lower Ext edema. Slightly contracted -NEURO: Alert, awake, not oriented, does not follow commands, nonverbal Intake/Output 24H Total: Intake/Output Summary (Last 24 hours) at 01/29/2025 0857 Last data filed at 01/28/2025 1714 Gross per 24 hour Intake 1383 ml Output -- Net 1383 ml Medication acetylcysteine 20 % 400 mg Nebulization 3 times daily RT albuterol 5 mg Nebulization 3 times daily RT amLODIPine 5 mg Oral Daily clomiPRAMINE 25 mg Oral Daily And clomiPRAMINE 50 mg Oral Nightly at bedtime heparin (porcine) 5,000 Units Subcutaneous 2 times per day metoprolol tartrate 5 mg Intravenous Q6H pantoprazole 40 mg Intravenous Daily risperiDONE 1 mg Oral BID And risperiDONE 0.5 mg Oral Nightly at bedtime solifenacin succinate 10 mg Oral Daily triamcinolone Topical BID vitamin D3 2,000 Units Oral Daily Dextrose 5 % and 0.45 % NaCl with KCl 20 mEq Stopped (01/28/25 1254) acetaminophen, acetaminophen, albuterol, bisacodyl EC, fluticasone propionate, hydrALAZINE Labs: Recent Labs Lab 01/24/25 0612 01/25/25 0559 01/26/25 0628 01/27/25 0559 01/28/25 0737 WBC 10.90 9.63 9.88 6.75 6.46 RBC 4.12* 4.01* 4.44 3.64* 4.33 HGB 11.5* 11.4* 12.7 10.4* 12.4 HCT 38.7 37.2* 40.8 32.8* 39.3 MCV 93.9 92.8 91.9 90.1 90.8 MCH 27.9 28.4 28.6 28.6 28.6 MCHC 29.7* 30.6* 31.1* 31.7* 31.6* PLT 238 245 246 202 201 RDW 14.2 14.2 13.9 13.4 13.5 MPV 11.0 10.9 11.2 11.2 11.3 PERNEU 81.4 79.1 67.2 62.7 62.7 PERLYM 11.7 14.0 25.2 28.6 26.2 PERMON 6.5 6.5 7.2 8.4 10.4 NEUC 8.87* 7.61 6.64 4.23 4.06 LYMC 1.28 1.35 2.49 1.93 1.69 MONOC 0.71 0.63 0.71 0.57 0.67 EOSC 0.00* 0.00* 0.00* 0.00* 0.00* BASOC 0.01 0.01 0.01 0.00* 0.01 DTYPE AUTOMATED DIFFERENTIAL AUTOMATED DIFFERENTIAL AUTOMATED DIFFERENTIAL AUTOMATED DIFFERENTIAL AUTOMATED DIFFERENTIAL Recent Labs Lab 01/24/25 0901 01/24/25 1530 01/24/25 1955 01/25/25 0559 01/26/25 0628 01/27/25 0559 01/28/25 0737 NA 150* 150* 151* 149* 147* 144 142 K 5.2* 2.6* 3.4* 3.2* 3.4* 2.9* 3.4* CL 112 110 111 110 109 106 106 CO2 34.2* 40.8* 42.0* 37.7* 35.0* 36.4* 33.6* AGAP 3.8 NOT CALCULATED NOT CALCULATED 1.3* 3.0 1.6* 2.4 BUN 13 12 10 12 14 8 8 CR 0.47* 0.40* 0.43* 0.68 0.63 0.45* 0.54* BUNCREATININ 27.9* 30.0* 23.4 17.7 22.3 17.9 14.7 GLU 77 123* 105* 104* 72 107* 108* CA 9.6 9.4 9.2 9.3 10.1 8.9 8.9 TP -- -- -- -- -- -- 7.6 ALB -- -- -- -- -- -- 2.2* TBIL -- -- -- -- -- -- 1.5* ALKP -- -- -- -- -- -- 94 AST -- -- -- -- -- -- 182* ALT -- -- -- -- -- -- 152* No results for input(s): CHOL , TRI , HDL , LDL , HGBA1C , TSH in the last 168 hours. No results for input(s): APTT , INR , PTT in the last 168 hours. No results for input(s): TROP , TROPIWB , CKMB , CPK in the last 168 hours. Recent Labs Lab 01/23/250 01/28/25 0737 PROCT <0.05 0.07 Recent Labs Lab 01/25/25 1033 PH 7.44 PCO2 53.0* PO2 89.0 [id number] BICARBWB 36.0* BASEEXCESS 9.9* No results found. However, due to the size of the patient record, not all encounters were searched.Please check Results Review for a complete set of results. X-Ray Radiology Results (Last 30 days) 01/26/25 1013 XR SPEECH SWALLOW KRISTINA ONLY Final result Impression: =====IMPRESSION:===== No aspiration. Please see speech pathology recommendations. Ordered By: RADHA RODRIGEZ Interpreted By: Jorge Arroyo MD, 01/26/2025 5:09 PM 01/26/25 0437 XR CHEST PORTABLE Final result Impression: IMPRESSION: There is worsening consolidation or atelectasis in the right lower lung with possible right-sided volume loss with mild mediastinal shift to the right. Referred By: Interpreted By: Kurt Crowder MD, 01/26/2025 4:40 AM 01/24/25 0442 XR CHEST PORTABLE Final result Impression: IMPRESSION: Mild improved aeration of the right lung with significant infiltrate persisting in the mid and lower lung. Referred By: Interpreted By: Kurt Crowder MD, 01/24/2025 5:16 AM 01/23/[address] HEAD WO CON Final result Impression: =====IMPRESSION:===== 1. Stable noncontrast CT of the head; no acute intracranial process identified. 2. Chronic senescent changes including mild volume loss and cerebral white matter chronic small vessel ischemic change. New 3. Nonspecific generalized calvarial hyperostosis. (CT has limited sensitivity for detection of acute ischemia). If acute ischemia is of clinical concern MRI can be considered. Ordered By: SHAHIDA DAVILA Interpreted By: Henrry Luna MD, 01/23/2025 4:26 PM 01/23/[address] CHEST WO CON Final result Impression: Impression: 1. Interval development of right lung multifocal multilobar airspace consolidation with air bronchograms in the right upper, middle and lower lobes. 2. Chronic moderate elevation right hemidiaphragm, uncertain etiology. 3. Mild anemia. Ordered By: SHAHIDA DAVILA Interpreted By: Henrry Luna MD, 01/23/2025 4:36 PM 01/23/25 1412 XR CHEST PORTABLE Final result Impression: IMPRESSION: 1. INTERVAL DEVELOPMENT OF NEW ABNORMAL PARENCHYMAL OPACITY RIGHT MIDDLE AND LOWER LUNG CONSISTENT WITH ACUTE PNEUMONIA. Signed: Star Catalan MD Referred By: Interpreted By: Star Catalan MD, 01/23/2025 2:18 PM 01/20/25 1419 CTA CHEST PE PROTOCOL Final result Impression: IMPRESSION: 1. No CT evidence of pulmonary thromboembolism. 2. Dependent secretions and/or mucous plugging in the left mainstem bronchus and left lower lobe bronchi. Patchy bibasilar opacities could be due to atelectasis or infection. 3. Please see above for additional chronic, incidental, and nonemergent findings elsewhere. Referred By: Interpreted By: Vincent Marcus MD, 01/20/2025 2:28 PM 01/20/[address] HEAD WO CON Final result Impression: IMPRESSION: No acute findings Ordered By: MORIAH LORENZO Interpreted By: Gerard Narayan MD, 01/20/2025 12:28 PM 01/20/25 1217 XR CHEST PA+LAT Final result Impression: IMPRESSION: ======== 1. Minimal infiltrates or atelectasis at the right lung base Referred By: Interpreted By: Stephen Wall MD, 01/20/2025 12:21 PM Assessment & Plan: Aspiration pneumonia No signs of sepsis on admission. PCT <0.05 Respiratory PCR negative Sputum cx ordered, not yet obtained. CTA chest (01/20) with dependent secretions with mucous plugging in the left main bronchus and left lower lobe bronchi with patchy bibasilar opacities Repeat CT chest (01/23) with interval development of right lung multifocal multilobar airspace consolidation with air bronchograms in the right upper, middle and lower lobes. Pulm consulted, appreciate recs. IV azithromycin (01/20-01/24) IV Rocephin (01/20 - 01/23) changed to IV Vanc (01/23-01/25)/Cefepime (01/23 - 01/24) Vanc dc'd secondary to MRSA screen neg. Again changed to IV Zosyn (01/24 - ) MBS performed on 01/26 with no evidence of aspiration despite coughing especially with swallowing. Continue Zosyn IV through 01/28 evening Will monitor respiratory status over the weekend given fragile condition. Provided no complicating factors, will plan for dc around 01/30 Room air Acute respiratory failure with hypoxia and hypercapnea Suspect related to recurrent aspiration. Resp panel (01/20 and 01/23) neg. ABG (01/23): 7.49/60/47.5/77 O2 sats had been reasonable on 2L until 01/23 when sPO2 down to 87% on RA with increased work of breathing. Placed on 40L Optiflow with low FIO2 to help with CO2 washout, however had intermittent compliance with use. Repeat ABG 7.44/53/37.6/89 Doubt patient would be able to use acapella or IS with her mental status. Currently resolved and on Room Air. Continue Zosyn IV through 01/28 evening Room air Hypernatremia Na up to 154 at one point IV fluids with D5 1/2NS. Na improving, now down to 147>144>142>146 Monitor/adjust fluids as needed. Continue D5 1/2 NS w/ KcL 20meq to 75ml/hr; possibly d/c tomorrow Hypokalemia K 3.3 on admission Today K 2.8 --> 5.2 --> 2.6 on 01/24. Suspect 5.2 was a lab error Replaced with IV KCl Unable to take po. Now up to 3.4. Continue to replace. -01/27: K 2.9, replace via IV, check mag and phos -01/28: K 3.4, replace via IV, mag 2.1 -01/29: K 3.5, mag 2.4, phos 3.0 Repeat BMP in am. Mild transaminitis: - was wnl previously during hospitalization - now AST 182>219, ALT 152>267 -Bili 1.5>0.6 -Ordered RUQ u/s, pending -hep panel - monitor for now R facial droop Noted on 01/23. CT head with chronic senescent changes including mild volume loss and cerebral white matter chronicsmall vessel ischemic change - no acute issues. Neuro checks. Not clear on exam today. Could consider MRI, however overall prognosis is very poor overall and appears resolved. Elevated D dimer Suspect related to resp issues/infection as above. CTA chest neg Cerebral palsy/schizophrenia/nonverbal [facility] at [facility] prior to admission. At baseline, nonverbal, but walks around independently Supportive care Continue home medications PT/OT to determine if patient needs rehab prior to return back to detention. HTN: - bp elevated today - continue IV Metoprolol for now, switch to oral soon - Added amlodipine - monitor BP DVT prophylaxis Heparin Sub Q SDOH Patient lives in detention and is a [facility] the [facility]. Code status FULL CODE Parth Warren is her psychiatric hospital appointed guardian. Disposition: Await RUQ u/s results. Monitor BP. Monitor electrolytes K mag phos LFTs bili. Other changes to plan of care to be made based on progress during hospitalization. All plans discussed with RN and patient. They are agreeable with plan and voiced understanding. This note was dictated with [employer] medical dictation software; misspellings, punctuation errors, omitted words or dictation variances may occur. Christ Douglass MD 01/29/2025 8:57 AM * Adrianna Sweeney RN - 01/28/2025 5:21 PM CDT Problem: Pain control/comfort Goal: Promote pain control/comfort Outcome: Met This Shift Problem: Pain control/comfort Goal: Promote pain control/comfort Outcome: Met This Shift Problem: Skin integrity, Impaired-wound Goal: Absence of new skin breakdown Outcome: Met This Shift Problem: Skin integrity, Impaired-pressure injury/ulcer Goal: Absence of new skin breakdown Outcome: Met This Shift Problem: Skin integrity, at risk Goal: Absence of new skin breakdown Outcome: Met This Shift Problem: Moisture associated skin impairment Goal: Reduce moisture exposure Outcome: Met This Shift Goal: Absence of new skin breakdown Outcome: Met This Shift Problem: Reduced risk for falls/injury Goal: Reduced Risk for Falls/Injury Outcome: Met This Shift Goal: Reduced Risk of Confusion (Acute vs Chronic) Outcome: Met This Shift Goal: Reduced Risk of Symptomatic Depression Outcome: Met This Shift Goal: Reduced Risk of Altered Elimination Outcome: Met This Shift Goal: Reduced Risk of Dizziness/Vertigo/Balance Outcome: Met This Shift Goal: Reduced Risk of Polypharmacy Outcome: Met This Shift Problem: Activity Intolerance Goal: Improved activity tolerance Outcome: Met This Shift Problem: Airway Clearance - Ineffective Goal: Patent airway Outcome: Met This Shift Problem: Breathing Pattern - Ineffective Goal: Respiratory rate within specified parameters Outcome: Met This Shift Problem: Gas Exchange - Impaired Goal: Adequate oxygenation Outcome: Met This Shift Problem: Aspiration - Risk of Goal: Absence of aspiration Outcome: Met This Shift * Christ Douglass MD - 01/28/2025 11:25 AM CDT Hospitalist Daily Progress Note Subjective Patient seen and evaluated earlier this morning. Patient is nonverbal at baseline but does not appear in any distress currently. No acute issues per nursing staff. Unable to obtain review of systems due to patient's clinical condition. Patient is currently on room air. Objective Filed Vitals: 01/27/25 2349 01/28/25 0242 01/28/25 0722 01/28/25 0929 BP: (!) 156/101 (!) 148/100 (!) 147/91 Pulse: (!) 110 (!) 107 98 Resp: 28 17 Temp: 97.6 ??F (36.4 ??C) 97.3 ??F (36.3 ??C) TempSrc: Oral Axillary SpO2: 96% 97% 95% 96% Weight: Height: Physical Exam: -GENERAL: Cachectic, ill-appearing but no acute distress currently -EYES: Extraocular movements intact -ENT: Neck supple -LUNG: Slightly diminished breath sounds at bases bilaterally but currently on room air -CVS: Regular rate rhythm, S1 and S2 normal -ABDOMEN: Soft, nondistended -EXT: no lower Ext edema. Slightly contracted -NEURO: Alert, awake, not oriented, does not follow commands, nonverbal Intake/Output 24H Total: Intake/Output Summary (Last 24 hours) at 01/28/2025 1125 Last data filed at 01/28/2025 1032 Gross per 24 hour Intake 120 ml Output -- Net 120 ml Medication acetylcysteine 20 % 400 mg Nebulization 3 times daily RT albuterol 5 mg Nebulization 3 times daily RT clomiPRAMINE 25 mg Oral Daily And clomiPRAMINE 50 mg Oral Nightly at bedtime heparin (porcine) 5,000 Units Subcutaneous 2 times per day metoprolol tartrate 5 mg Intravenous Q6H pantoprazole 40 mg Intravenous Daily piperacillin-tazobactam 3.375 g Intravenous Q8H potassium chloride 40 mEq Intravenous Once risperiDONE 1 mg Oral BID And risperiDONE 0.5 mg Oral Nightly at bedtime solifenacin succinate 10 mg Oral Daily vitamin D3 2,000 Units Oral Daily Dextrose 5 % and 0.45 % NaCl with KCl 20 mEq 75 mL/hr at 01/28/25 1050 albuterol, bisacodyl EC, fluticasone propionate Labs: Recent Labs Lab 01/22/25 0649 01/24/25 0612 01/25/25 0559 01/26/25 0628 01/27/25 0559 01/28/25 0737 WBC 11.23* 10.90 9.63 9.88 6.75 6.46 RBC 4.07* 4.12* 4.01* 4.44 3.64* 4.33 HGB 11.5* 11.5* 11.4* 12.7 10.4* 12.4 HCT 37.5* 38.7 37.2* 40.8 32.8* 39.3 MCV 92.1 93.9 92.8 91.9 90.1 90.8 MCH 28.3 27.9 28.4 28.6 28.6 28.6 MCHC 30.7* 29.7* 30.6* 31.1* 31.7* 31.6* PLT 225 238 245 246 202 201 RDW 13.7 14.2 14.2 13.9 13.4 13.5 MPV 10.7 11.0 10.9 11.2 11.2 11.3 PERNEU -- 81.4 79.1 67.2 62.7 62.7 PERLYM -- 11.7 14.0 25.2 28.6 26.2 PERMON -- 6.5 6.5 7.2 8.4 10.4 NEUC 10.56* 8.87* 7.61 6.64 4.23 4.06 LYMC 0.22* 1.28 1.35 2.49 1.93 1.69 MONOC 0.22* 0.71 0.63 0.71 0.57 0.67 EOSC -- 0.00* 0.00* 0.00* 0.00* 0.00* BASOC -- 0.01 0.01 0.01 0.00* 0.01 DTYPE MANUAL DIFFERENTIAL AUTOMATED DIFFERENTIAL AUTOMATED DIFFERENTIAL AUTOMATED DIFFERENTIAL AUTOMATED DIFFERENTIAL AUTOMATED DIFFERENTIAL Recent Labs Lab 01/22/25 0649 01/24/25 0612 01/24/25 0901 01/24/25 1530 01/24/25 1955 01/25/25 0559 01/26/25 0628 01/27/25 0559 01/28/25 0737 NA 147* < > 150* 150* 151* 149* 147* 144 142 K 3.7 < > 5.2* 2.6* 3.4* 3.2* 3.4* 2.9* 3.4* CL 110 < > 112 110 111 110 109 106 106 CO2 33.2* < > 34.2* 40.8* 42.0* 37.7* 35.0* 36.4* 33.6* AGAP 3.8 < > 3.8 NOT CALCULATED NOT CALCULATED 1.3* 3.0 1.6* 2.4 BUN 15 < > 13 12 10 12 14 8 8 CR 0.43* < > 0.47* 0.40* 0.43* 0.68 0.63 0.45* 0.54* BUNCREATININ 34.6* < > 27.9* 30.0* 23.4 17.7 22.3 17.9 14.7 GLU 99 < > 77 123* 105* 104* 72 107* 108* CA 9.0 < > 9.6 9.4 9.2 9.3 10.1 8.9 8.9 TP 7.8 -- -- -- -- -- -- -- 7.6 ALB 2.3* -- -- -- -- -- -- -- 2.2* TBIL 0.6 -- -- -- -- -- -- -- 1.5* ALKP 92 -- -- -- -- -- -- -- 94 AST 26 -- -- -- -- -- -- -- 182* ALT 32 -- -- -- -- -- -- -- 152* < > = values in this interval not displayed. No results for input(s): CHOL , TRI , HDL , LDL , HGBA1C , TSH in the last 168 hours. No results for input(s): APTT , INR , PTT in the last 168 hours. No results for input(s): TROP , TROPIWB , CKMB , CPK in the last 168 hours. Recent Labs Lab 01/23/25211901/28/25 0737 PROCT <0.05 0.07 Recent Labs Lab 01/25/25 1033 PH 7.44 PCO2 53.0* PO2 89.0 [id number] BICARBWB 36.0* BASEEXCESS 9.9* No results found. However, due to the size of the patient record, not all encounters were searched.Please check Results Review for a complete set of results. X-Ray Radiology Results (Last 30 days) 01/26/25 1013 XR SPEECH SWALLOW KRISTINA ONLY Final result Impression: =====IMPRESSION:===== No aspiration. Please see speech pathology recommendations. Ordered By: RADHA RODRIGEZ Interpreted By: Jorge Arroyo MD, 01/26/2025 5:09 PM 01/26/25 0437 XR CHEST PORTABLE Final result Impression: IMPRESSION: There is worsening consolidation or atelectasis in the right lower lung with possible right-sided volume loss with mild mediastinal shift to the right. Referred By: Interpreted By: Kurt Crowder MD, 01/26/2025 4:40 AM 01/24/25 0442 XR CHEST PORTABLE Final result Impression: IMPRESSION: Mild improved aeration of the right lung with significant infiltrate persisting in the mid and lower lung. Referred By: Interpreted By: Kurt Crowder MD, 01/24/2025 5:16 AM 01/23/[address] HEAD WO CON Final result Impression: =====IMPRESSION:===== 1. Stable noncontrast CT of the head; no acute intracranial process identified. 2. Chronic senescent changes including mild volume loss and cerebral white matter chronic small vessel ischemic change. New 3. Nonspecific generalized calvarial hyperostosis. (CT has limited sensitivity for detection of acute ischemia). If acute ischemia is of clinical concern MRI can be considered. Ordered By: SHAHIDA DAVILA Interpreted By: Henrry Luna MD, 01/23/2025 4:26 PM 01/23/[address] CHEST WO CON Final result Impression: Impression: 1. Interval development of right lung multifocal multilobar airspace consolidation with air bronchograms in the right upper, middle and lower lobes. 2. Chronic moderate elevation right hemidiaphragm, uncertain etiology. 3. Mild anemia. Ordered By: SHAHIDA DAVILA Interpreted By: Henrry Luna MD, 01/23/2025 4:36 PM 01/23/25 1412 XR CHEST PORTABLE Final result Impression: IMPRESSION: 1. INTERVAL DEVELOPMENT OF NEW ABNORMAL PARENCHYMAL OPACITY RIGHT MIDDLE AND LOWER LUNG CONSISTENT WITH ACUTE PNEUMONIA. Signed: Star Catalan MD Referred By: Interpreted By: Star Catalan MD, 01/23/2025 2:18 PM 01/20/25 1419 CTA CHEST PE PROTOCOL Final result Impression: IMPRESSION: 1. No CT evidence of pulmonary thromboembolism. 2. Dependent secretions and/or mucous plugging in the left mainstem bronchus and left lower lobe bronchi. Patchy bibasilar opacities could be due to atelectasis or infection. 3. Please see above for additional chronic, incidental, and nonemergent findings elsewhere. Referred By: Interpreted By: Vincent Marcus MD, 01/20/2025 2:28 PM 01/20/[address] HEAD WO CON Final result Impression: IMPRESSION: No acute findings Ordered By: MORIAH LORENZO Interpreted By: Gerard Narayan MD, 01/20/2025 12:28 PM 01/20/25 1217 XR CHEST PA+LAT Final result Impression: IMPRESSION: ======== 1. Minimal infiltrates or atelectasis at the right lung base Referred By: Interpreted By: Stephen Wall MD, 01/20/2025 12:21 PM Assessment & Plan: Aspiration pneumonia No signs of sepsis on admission. PCT <0.05 Respiratory PCR negative Sputum cx ordered, not yet obtained. CTA chest (01/20) with dependent secretions with mucous plugging in the left main bronchus and left lower lobe bronchi with patchy bibasilar opacities Repeat CT chest (01/23) with interval development of right lung multifocal multilobar airspace consolidation with air bronchograms in the right upper, middle and lower lobes. Pulm consulted, appreciate recs. IV azithromycin (01/20-01/24) IV Rocephin (01/20 - 01/23) changed to IV Vanc (01/23-01/25)/Cefepime (01/23 - 01/24) Vanc dc'd secondary to MRSA screen neg. Again changed to IV Zosyn (01/24 - ) MBS performed on 01/26 with no evidence of aspiration despite coughing especially with swallowing. Continue Zosyn IV through 01/28 evening Will monitor respiratory status over the weekend given fragile condition. Provided no complicating factors, will plan for dc around 01/29 Acute respiratory failure with hypoxia and hypercapnea Suspect related to recurrent aspiration. Resp panel (01/20 and 01/23) neg. ABG (3/11): 7.49/60/47.5/77 O2 sats had been reasonable on 2L until 01/23 when sPO2 down to 87% on RA with increased work of breathing. Placed on 40L Optiflow with low FIO2 to help with CO2 washout, however had intermittent compliance with use. Repeat ABG 7.44/53/37./ Doubt patient would be able to use acapella or IS with her mental status. Currently resolved and on Room Air. Continue Zosyn IV through 01/28 evening Hypernatremia Na up to 154 at one point IV fluids with D5 1/2NS. Na improving, now down to 147>144>142. Monitor/adjust fluids as needed. Change D5 1/2 NS w/ KcL 20meq to 75ml/hr; possibly d/c tomorrow Hypokalemia K 3.3 on admission Today K 2.8 --> 5.2 --> 2.6 on 01/24. Suspect 5.2 was a lab error Replaced with IV KCl Unable to take po. Now up to 3.4. Continue to replace. -01/27: K 2.9, replace via IV, check mag and phos -01/28: K 3.4, replace via IV, mag 2.1 Repeat BMP in am. Mild transaminitis: - was wnl previously during hospitalization - now AST 182, ALT 152 -Bili 1.5 - monitor for now R facial droop Noted on 01/23. CT head with chronic senescent changes including mild volume loss and cerebral white matter chronicsmall vessel ischemic change - no acute issues. Neuro checks. Not clear on exam today. Could consider MRI, however overall prognosis is very poor overall and appears resolved. Elevated D dimer Suspect related to resp issues/infection as above. CTA chest neg Cerebral palsy/schizophrenia/nonverbal Resides at detention prior to admission. At baseline, nonverbal, but walks around independently Supportive care Continue home medications PT/OT to determine if patient needs rehab prior to return back to detention. HTN: - bp elevated today - continue IV Metoprolol for now, switch to oral soon - Added amlodipine - monitor BP DVT prophylaxis Heparin Sub Q SDOH Patient lives in detention and is a bear of the psychiatric hospital. Code status FULL CODE Parth Warren is her state appointed guardian. Disposition: Monitor through weekend. Continue IV Zosyn. Monitor BP. Monitor electrolytes K mag phos LFTs bili. Other changes to plan of care to be made based on progress during hospitalization. All plans discussed with RN and patient. They are agreeable with plan and voiced understanding. This note was dictated with [employer] medical dictation software; misspellings, punctuation errors, omitted words or dictation variances may occur. Christ Douglass MD 01/28/2025 11:25 AM * Cheryl Maurer RN - 01/27/2025 2:26 PM CDT Problem: Discharge Planning Goal: Knowledge of discharge instructions Outcome: Progressing Problem: Pain control/comfort Goal: Promote pain control/comfort Outcome: Progressing Problem: Skin integrity, Impaired-wound Goal: Absence of new skin breakdown Outcome: Progressing Problem: Skin integrity, Impaired-pressure injury/ulcer Goal: Absence of new skin breakdown Outcome: Progressing Problem: Skin integrity, at risk Goal: Absence of new skin breakdown Outcome: Progressing Problem: Moisture associated skin impairment Goal: Reduce moisture exposure Outcome: Progressing Goal: Absence of new skin breakdown Outcome: Progressing Problem: Reduced risk for falls/injury Goal: Reduced Risk for Falls/Injury Outcome: Progressing Goal: Reduced Risk of Confusion (Acute vs Chronic) Outcome: Progressing Goal: Reduced Risk of Symptomatic Depression Outcome: Progressing Goal: Reduced Risk of Altered Elimination Outcome: Progressing Goal: Reduced Risk of Dizziness/Vertigo/Balance Outcome: Progressing Goal: Reduced Risk of Polypharmacy Outcome: Progressing Problem: Discharge Planning Goal: Knowledge of discharge instructions Outcome: Progressing Problem: Activity Intolerance Goal: Improved activity tolerance Outcome: Progressing Problem: Airway Clearance - Ineffective Goal: Patent airway Outcome: Progressing Problem: Breathing Pattern - Ineffective Goal: Respiratory rate within specified parameters Outcome: Progressing Problem: Gas Exchange - Impaired Goal: Adequate oxygenation Outcome: Progressing Problem: Tobacco Use Goal: Knowledge of tobacco-use cessation methods Outcome: Progressing Problem: Aspiration - Risk of Goal: Absence of aspiration Outcome: Progressing * Christ Douglass MD - 01/27/2025 9:53 AM CDT Hospitalist Daily Progress Note Subjective Patient seen and evaluated earlier this morning. Patient is nonverbal at baseline but does not appear in any distress currently. No acute issues per nursing staff. Unable to obtain review of systems due to patient's clinical condition. Patient is currently on room air. Objective Filed Vitals: 01/26/25 1841 01/27/25 0145 01/27/25 0439 01/27/25 0712 BP: 129/79 136/85 (!) 133/106 (!) 144/130 Pulse: (!) 112 90 72 (!) 110 Resp: Temp: 95.9 ??F (35.5 ??C) 97.5 ??F (36.4 ??C) 98.4 ??F (36.9 ??C) 99 ??F (37.2 ??C) TempSrc: Oral Axillary Oral Oral SpO2: 91% 91% 94% 100% Weight: 39.5 kg (87 lb 1.3 oz) Height: Physical Exam: -GENERAL: Cachectic, ill-appearing but no acute distress currently -EYES: Extraocular movements intact -ENT: Neck supple -LUNG: Slightly diminished breath sounds at bases bilaterally but currently on room air -CVS: Regular rate rhythm, S1 and S2 normal -ABDOMEN: Soft, nondistended -EXT: no lower Ext edema. Slightly contracted -NEURO: Alert, awake, not oriented, does not follow commands, nonverbal Intake/Output 24H Total: Intake/Output Summary (Last 24 hours) at 01/27/2025 0953 Last data filed at 01/27/2025 0240 Gross per 24 hour Intake 640 ml Output -- Net 640 ml Medication acetylcysteine 20 % 400 mg Nebulization 3 times daily RT albuterol 5 mg Nebulization 3 times daily RT clomiPRAMINE 25 mg Oral Daily And clomiPRAMINE 50 mg Oral Nightly at bedtime heparin (porcine) 5,000 Units Subcutaneous 2 times per day metoprolol tartrate 5 mg Intravenous Q6H pantoprazole 40 mg Intravenous Daily piperacillin-tazobactam 3.375 g Intravenous Q8H potassium chloride 40 mEq Intravenous Once risperiDONE 1 mg Oral BID And risperiDONE 0.5 mg Oral Nightly at bedtime solifenacin succinate 10 mg Oral Daily vitamin D3 2,000 Units Oral Daily Dextrose 5 % and 0.45 % NaCl with KCl 20 mEq 100 mL/hr at 01/27/25 06 albuterol, bisacodyl EC, fluticasone propionate Labs: Recent Labs Lab 01/20/25 1106 01/22/25 0649 01/24/25 0612 01/25/25 0559 01/26/25 0628 01/27/25 0559 WBC 6.86 11.23* 10.90 9.63 9.88 6.75 RBC 4.35 4.07* 4.12* 4.01* 4.44 3.64* HGB 12.3 11.5* 11.5* 11.4* 12.7 10.4* HCT 38.9 37.5* 38.7 37.2* 40.8 32.8* MCV 89.4 92.1 93.9 92.8 91.9 90.1 MCH 28.3 28.3 27.9 28.4 28.6 28.6 MCHC 31.6* 30.7* 29.7* 30.6* 31.1* 31.7* PLT 271 225 238 245 246 202 RDW 13.2 13.7 14.2 14.2 13.9 13.4 MPV 10.2 10.7 11.0 10.9 11.2 11.2 PERNEU 72.0 -- 81.4 79.1 67.2 62.7 PERLYM 18.1 -- 11.7 14.0 25.2 28.6 PERMON 9.8 -- 6.5 6.5 7.2 8.4 NEUC 4.94 10.56* 8.87* 7.61 6.64 4.23 LYMC 1.24 0.22* 1.28 1.35 2.49 1.93 MONOC 0.67 0.22* 0.71 0.63 0.71 0.57 EOSC 0.00* -- 0.00* 0.00* 0.00* 0.00* BASOC 0.00* -- 0.01 0.01 0.01 0.00* DTYPE AUTOMATED DIFFERENTIAL MANUAL DIFFERENTIAL AUTOMATED DIFFERENTIAL AUTOMATED DIFFERENTIAL AUTOMATED DIFFERENTIAL AUTOMATED DIFFERENTIAL Recent Labs Lab 01/20/25 1106 01/22/25 0649 01/24/25 0612 01/24/25 0901 01/24/25 1530 01/24/25 1955 01/25/25 0559 01/26/25 0628 01/27/25 0559 NA 139 147* 154* 150* 150* 151* 149* 147* 144 K 3.3* 3.7 2.8* 5.2* 2.6* 3.4* 3.2* 3.4* 2.9* CL 99 110 113 112 110 111 110 109 106 CO2 40.5* 33.2* 34.7* 34.2* 40.8* 42.0* 37.7* 35.0* 36.4* AGAP NOT CALCULATED 3.8 6.3 3.8 NOT CALCULATED NOT CALCULATED 1.3* 3.0 1.6* BUN 6* 15 13 13 12 10 12 14 8 CR 0.52* 0.43* 0.49* 0.47* 0.40* 0.43* 0.68 0.63 0.45* BUNCREATININ 11.6 34.6* 26.4* 27.9* 30.0* 23.4 17.7 22.3 17.9 GLU 111* 99 82 77 123* 105* 104* 72 107* CA 8.8 9.0 9.7 9.6 9.4 9.2 9.3 10.1 8.9 TP 7.5 7.8 -- -- -- -- -- -- -- ALB 2.6* 2.3* -- -- -- -- -- -- -- TBIL 0.3 0.6 -- -- -- -- -- -- -- ALKP 101 92 -- -- -- -- -- -- -- AST 16 26 -- -- -- -- -- -- -- ALT 26 32 -- -- -- -- -- -- -- No results for input(s): CHOL , TRI , HDL , LDL , HGBA1C , TSH in the last 168 hours. No results for input(s): APTT , INR , PTT in the last 168 hours. Recent Labs Lab 01/20/25 1106 TROP 7 Recent Labs Lab 01/20/25 1339 01/23/25 2120 LACTICACID 1.9 -- PROCT -- <0.05 Recent Labs Lab 01/25/25 1033 PH 7.44 PCO2 53.0* PO2 89.0 [id number] BICARBWB 36.0* BASEEXCESS 9.9* No results found for this or any previous visit. X-Ray Radiology Results (Last 30 days) 01/26/25 1013 XR SPEECH SWALLOW KRISTINA ONLY Final result Impression: =====IMPRESSION:===== No aspiration. Please see speech pathology recommendations. Ordered By: RADHA RODRIGEZ Interpreted By: Jorge Arroyo MD, 01/26/2025 5:09 PM 01/26/25 0437 XR CHEST PORTABLE Final result Impression: IMPRESSION: There is worsening consolidation or atelectasis in the right lower lung with possible right-sided volume loss with mild mediastinal shift to the right. Referred By: Interpreted By: Kurt Crowder MD, 01/26/2025 4:40 AM 01/24/25 0442 XR CHEST PORTABLE Final result Impression: IMPRESSION: Mild improved aeration of the right lung with significant infiltrate persisting in the mid and lower lung. Referred By: Interpreted By: Kurt Crowder MD, 01/24/2025 5:16 AM 01/23/[address] HEAD WO CON Final result Impression: =====IMPRESSION:===== 1. Stable noncontrast CT of the head; no acute intracranial process identified. 2. Chronic senescent changes including mild volume loss and cerebral white matter chronic small vessel ischemic change. New 3. Nonspecific generalized calvarial hyperostosis. (CT has limited sensitivity for detection of acute ischemia). If acute ischemia is of clinical concern MRI can be considered. Ordered By: SHAHIDA DAVILA Interpreted By: Henrry Luna MD, 01/23/2025 4:26 PM 01/23/[address] CHEST WO CON Final result Impression: Impression: 1. Interval development of right lung multifocal multilobar airspace consolidation with air bronchograms in the right upper, middle and lower lobes. 2. Chronic moderate elevation right hemidiaphragm, uncertain etiology. 3. Mild anemia. Ordered By: SHAHIDA DAVILA Interpreted By: Henrry Luna MD, 01/23/2025 4:36 PM 01/23/25 1412 XR CHEST PORTABLE Final result Impression: IMPRESSION: 1. INTERVAL DEVELOPMENT OF NEW ABNORMAL PARENCHYMAL OPACITY RIGHT MIDDLE AND LOWER LUNG CONSISTENT WITH ACUTE PNEUMONIA. Signed: Star Catalan MD Referred By: Interpreted By: Star Catalan MD, 01/23/2025 2:18 PM 01/20/25 1419 CTA CHEST PE PROTOCOL Final result Impression: IMPRESSION: 1. No CT evidence of pulmonary thromboembolism. 2. Dependent secretions and/or mucous plugging in the left mainstem bronchus and left lower lobe bronchi. Patchy bibasilar opacities could be due to atelectasis or infection. 3. Please see above for additional chronic, incidental, and nonemergent findings elsewhere. Referred By: Interpreted By: Vincent Marcus MD, 01/20/2025 2:28 PM 01/20/[address] HEAD WO CON Final result Impression: IMPRESSION: No acute findings Ordered By: MORIAH LORENZO Interpreted By: Gerard Narayan MD, 01/20/2025 12:28 PM 01/20/25 1217 XR CHEST PA+LAT Final result Impression: IMPRESSION: ======== 1. Minimal infiltrates or atelectasis at the right lung base Referred By: Interpreted By: Stephen Wall MD, 01/20/2025 12:21 PM Assessment & Plan: Aspiration pneumonia No signs of sepsis on admission. PCT <0.05 Respiratory PCR negative Sputum cx ordered, not yet obtained. CTA chest (01/20) with dependent secretions with mucous plugging in the left main bronchus and left lower lobe bronchi with patchy bibasilar opacities Repeat CT chest (01/23) with interval development of right lung multifocal multilobar airspace consolidation with air bronchograms in the right upper, middle and lower lobes. Pulm consulted, appreciate recs. IV azithromycin (01/20-01/24) IV Rocephin (01/20 - 01/23) changed to IV Vanc (01/23-01/25)/Cefepime (01/23 - 01/24) Vanc dc'd secondary to MRSA screen neg. Again changed to IV Zosyn (01/24 - ) MBS performed on 01/26 with no evidence of aspiration despite coughing especially with swallowing. Continue Zosyn IV through 01/28 evening Will monitor respiratory status over the weekend given fragile condition. Provided no complicating factors, will plan for dc around 01/29 Acute respiratory failure with hypoxia and hypercapnea Suspect related to recurrent aspiration. Resp panel (01/20 and 01/23) neg. ABG (01/23): 7.49/60/47.5/77 O2 sats had been reasonable on 2L until 01/23 when sPO2 down to 87% on RA with increased work of breathing. Placed on 40L Optiflow with low FIO2 to help with CO2 washout, however had intermittent compliance with use. Repeat ABG 7.44/53/37.6/89 Doubt patient would be able to use acapella or IS with her mental status. Currently resolved and on Room Air. Continue Zosyn IV through 01/28 evening Hypernatremia Na up to 154 at one point IV fluids with D5 1/2NS. Na improving, now down to 147>144. Monitor/adjust fluids as needed. Change D5 1/2 NS w/ KcL 20meq to 75ml/hr Hypokalemia K 3.3 on admission Today K 2.8 --> 5.2 --> 2.6 on 01/24. Suspect 5.2 was a lab error Replaced with IV KCl Unable to take po. Now up to 3.4. Continue to replace. -01/27: K 2.9, replace via IV, check mag and phos Repeat BMP in am. R facial droop Noted on 01/23. CT head with chronic senescent changes including mild volume loss and cerebral white matter chronicsmall vessel ischemic change - no acute issues. Neuro checks. Not clear on exam today. Could consider MRI, however overall prognosis is very poor overall and appears resolved. Elevated D dimer Suspect related to resp issues/infection as above. CTA chest neg Cerebral palsy/schizophrenia/nonverbal Resides at detention prior to admission. At baseline, nonverbal, but walks around independently Supportive care Continue home medications PT/OT to determine if patient needs rehab prior to return back to detention. DVT prophylaxis Heparin Sub Q SDOH Patient lives in detention and is a bear of the psychiatric hospital. Code status FULL CODE Parth Warren is her psychiatric hospital appointed guardian. Disposition: Monitor through weekend. Continue IV Zosyn. Watch and monitor electrolytes Other changes to plan of care to be made based on progress during hospitalization. All plans discussed with RN and patient. They are agreeable with plan and voiced understanding. This note was dictated with [employer] medical dictation software; misspellings, punctuation errors, omitted words or dictation variances may occur. Christ Douglass MD 01/27/2025 9:53 AM * Lexus Barroso MD - 01/26/2025 6:36 PM CDT Hospitalist Daily Progress Note Subjective This is a 69-year-old y/o female who presents with Pneumonia due to infectious organism. Patient nonverbal, but does not appear in any distress. No acute issues per nursing staff. Objective Filed Vitals: 01/26/25 0423 01/26/25 0748 01/26/25 1144 01/26/25 1604 BP: (!) 157/88 (!) 149/91 133/81 (!) 153/96 Pulse: 95 (!) 52 (!) 113 (!) 101 Resp: 16 28 18 16 Temp: 99 ??F (37.2 ??C) 97.2 ??F (36.2 ??C) 97.9 ??F (36.6 ??C) TempSrc: Axillary Axillary Axillary Axillary SpO2: 96% 90% 93% 90% Weight: 39.5 kg (87 lb 1.3 oz) Height: Physical Exam: Physical Exam Vitals reviewed. Constitutional: Appearance: She is well-developed. She is cachectic. Comments: Does not appear uncomfortable Cardiovascular: Rate and Rhythm: Normal rate and regular rhythm. Heart sounds: No murmur heard. Pulmonary: Effort: Pulmonary effort is normal. No respiratory distress. Breath sounds: Normal breath sounds. No wheezing. Abdominal: General: There is no distension. Palpations: Abdomen is soft. Tenderness: There is no abdominal tenderness. Musculoskeletal: General: No swelling. Skin: Findings: No rash. Neurological: Mental Status: She is alert. Comments: Does not follow commands Psychiatric: Comments: nonverbal Intake/Output 24H Total: Intake/Output Summary (Last 24 hours) at 01/26/2025 1836 Last data filed at 01/26/2025 1300 Gross per 24 hour Intake 290 ml Output 200 ml Net 90 ml Medication acetylcysteine 20 % 400 mg Nebulization 3 times daily RT albuterol 5 mg Nebulization 3 times daily RT clomiPRAMINE 25 mg Oral Daily And clomiPRAMINE 50 mg Oral Nightly at bedtime heparin (porcine) 5,000 Units Subcutaneous 2 times per day metoprolol tartrate 5 mg Intravenous Q6H pantoprazole 40 mg Intravenous Daily piperacillin-tazobactam 3.375 g Intravenous Q8H risperiDONE 1 mg Oral BID And risperiDONE 0.5 mg Oral Nightly at bedtime solifenacin succinate 10 mg Oral Daily vitamin D3 2,000 Units Oral Daily Dextrose 5 % and 0.45 % NaCl with KCl 20 mEq 100 mL/hr at 01/26/25 0841 PRN Meds: albuterol, bisacodyl EC, fluticasone propionate Labs: Recent Results (from the past 24 hours) POCT glucose Collection Time: 01/26/25 5:30 AM Result Value Ref Range GLUCOSE POC 72 70 - 99 mg/dL CBC W/DIFF AUTOMATED Collection Time: 01/26/25 6:28 AM Result Value Ref Range WBC 9.88 4.5 - 11.0 x10'3/uL RBC 4.44 4.20 - 5.40 x10'6/uL HGB 12.7 12.0 - 16.0 G/DL HCT 40.8 38.0 - 48.0 % MCV 91.9 81.0 - 99.0 FL MCH 28.6 27.0 - 31.0 PG MCHC 31.1 (L) 32.0 - 36.0 G/DL RDW 13.9 11.5 - 14.5 % PLT 246 130 - 400 x10'3/uL MPV 11.2 9.3 - 12.2 FL DIFFERENTIAL TYPE AUTOMATED DIFFERENTIAL NEUTROPHILS % 67.2 % LYMPHOCYTES % 25.2 % MONOCYTES % 7.2 % EOSINOPHILS 0.0 % BASOPHILS 0.1 % IMMATURE GRANS % 0.3 % ABS. NEUTROPHILS 6.64 1.80 - 7.70 x10'3/uL ABS. LYMPHOCYTES 2.49 1.00 - 4.80 x10'3/uL ABS. MONOCYTES 0.71 0.24 - 0.86 x10'3/uL ABS. EOSINOPHILS 0.00 (L) 0.04 - 0.36 x10'3/uL ABS. BASOPHILS 0.01 0.01 - 0.08 x10'3/uL ABS. IMMATURE GRANULOCYTES 0.03 0.00 - 0.49 x10'3/uL BASIC METABOLIC PANEL Collection Time: 01/26/25 6:28 AM Result Value Ref Range GLUCOSE 72 70 - 99 MG/DL BUN 14 7 - 18 MG/DL CREATININE S/P/B 0.63 0.55 - 1.02 MG/DL SODIUM S/P/B 147 (H) 136 - 145 MMOL/L POTASSIUM S/P/B 3.4 (L) 3.5 - 5.1 MMOL/L CHLORIDE S/P/B 109 97 - 115 MMOL/L CO2 35.0 (H) 21 - 32 MMOL/L CALCIUM S/P/B 10.1 8.5 - 10.1 MG/DL ANION GAP 3.0 2 - 10 MMOL/L BUN CREATININE RATIO 22.3 6 - 26 GFR ESTIMATE >90 >90 ML/MIN/1.73 M2 MAGNESIUM Collection Time: 01/26/25 6:28 AM Result Value Ref Range MAGNESIUM 2.1 1.8 - 2.4 MG/DL POCT glucose Collection Time: 01/26/25 10:15 AM Result Value Ref Range GLUCOSE POC 87 70 - 99 mg/dL POCT glucose Collection Time: 01/26/25 4:08 PM Result Value Ref Range GLUCOSE POC 133 (H) 70 - 99 mg/dL X-Ray MBS (01/26/25): No aspiration. Please see speech pathology recommendations. CXR (01/26/25): There is worsening consolidation or atelectasis in the right lower lung with possible right-sided volume loss with mild mediastinal shift to the right. CXR (01/24/25): Mild improved aeration of the right lung with significant infiltrate persisting in the mid and lower lung. CT head wo con (01/23/25): 1. Stable noncontrast CT of the head; no acute intracranial process identified. 2. Chronic senescent changes including mild volume loss and cerebral white matter chronic small vessel ischemic change. New 3. Nonspecific generalized calvarial hyperostosis. CXR (01/23/25): 1. INTERVAL DEVELOPMENT OF NEW ABNORMAL PARENCHYMAL OPACITY RIGHT MIDDLE AND LOWER LUNG CONSISTENT WITH ACUTE PNEUMONIA. CTA chest (01/20/25): 1. No CT evidence of pulmonary thromboembolism. 2. Dependent secretions and/or mucous plugging in the left mainstem bronchus and left lower lobe bronchi. Patchy bibasilar opacities could be due to atelectasis or infection. CT head wo con (01/20/25): No acute findings CXR (01/20/25): 1. Minimal infiltrates or atelectasis at the right lung base Results for orders placed or performed during the hospital encounter of 01/20/25 ECG 12 lead Narrative [place] Test Date: 2025-01-20 Pat Name: MARIA DEL CARMEN GOLDMAN Department: 41 Room: [place] [id number] Gender: Female [employer]: : [id number] Requested By: MORIAH LORENZO Order Number: [id number] Reading MD: Chevy Dodson Measurements Intervals [place] Rate: 85 P: 17 [place]: 149 QRS: -26 QRSD: 91 T: 30 QT: 293 QTc: 349 Interpretive Statements SINUS RHYTHM VOLTAGE CRITERIA FOR LVH [MEETS CRITERIA IN ONE OF: R(aVL), S(V1), R(V5), R(V5/V6)+S(V1)] POSSIBLE SEPTAL MYOCARDIAL INFARCTION [30 ms Q WAVE IN V1/V2], OF INDETERMINATE AGE Compared to ECG 04/27/2024 12:57:46 Left-axis deviation no longer present Myocardial infarct finding still present E PAVER Assessment/Plan: Aspiration pneumonia No signs of sepsis on admission. PCT <0.05 Respiratory PCR negative Sputum cx ordered, not yet obtained. CTA chest (01/20) with dependent secretions with mucous plugging in the left main bronchus and left lower lobe bronchi with patchy bibasilar opacities Repeat CT chest (01/23) with interval development of right lung multifocal multilobar airspace consolidation with air bronchograms in the right upper, middle and lower lobes. Pulm consulted, appreciate recs. IV azithromycin (01/20-01/24) IV Rocephin (01/20 - 01/23) changed to IV Vanc (01/23-01/25)/Cefepime (01/23 - 01/24) Vanc dc'd secondary to MRSA screen neg. Again changed to IV Zosyn (01/24 - ) MBS performed on 01/26 with no evidence of aspiration despite coughing especially with swallowing. Will monitor respiratory status over the weekend given fragile condition. Provided no complicating factors, will plan for dc early next week. Acute respiratory failure with hypoxia and hypercapnea Suspect related to recurrent aspiration. Resp panel (01/20 and 01/23) neg. ABG (01/23): 7.49/60/47.5/77 O2 sats had been reasonable on 2L until 01/23 when sPO2 down to 87% on RA with increased work of breathing. Placed on 40L Optiflow with low FIO2 to help with CO2 washout, however had intermittent compliance with use. Repeat ABG 7.44/53/37.6/89 Doubt patient would be able to use acapella or IS with her mental status. Currently resolved and on RA. Hypernatremia Na up to 154. IV fluids with D5 1/2NS. Na improving, now down to 147. Monitor/adjust fluids as needed. Hypokalemia K 3.3 on admission Today K 2.8 --> 5.2 --> 2.6 on 01/24. Suspect 5.2 was a lab error Replaced with IV KCl Unable to take po. Now up to 3.4. Continue to replace. Repeat BMP in am. R facial droop Noted on 01/23. CT head with chronic senescent changes including mild volume loss and cerebral white matter chronicsmall vessel ischemic change - no acute issues. Neuro checks. Not clear on exam today. Could consider MRI, however overall prognosis is very poor overall and appears resolved. Elevated D dimer Suspect related to resp issues/infection as above. CTA chest neg Cerebral palsy/schizophrenia/nonverbal Resides at detention prior to admission. At baseline, nonverbal, but walks around independently Supportive care Continue home medications PT/OT to determine if patient needs rehab prior to return back to detention. DVT prophylaxis Heparin Sub Q SDOH Patient lives in detention and is a ebar of the psychiatric hospital. Code status FULL CODE Parth Warren is her psychiatric hospital appointed guardian. LEXUS BARROSO MD 01/26/2025 6:36 PM * Elvis Sosa DO - 01/26/2025 2:43 PM CDT Pulmonary Consultation Note History CC: hypoxia/pna HPI: Maria Del Carmen Goldman is a 69-year-old female with a PMHx of cerebral palsy / intellectual disability/ nonverbal status, who presents to [facility] on 01/20/25 with worsening breathing after she was eating with notable hypoxia afterwards. -- hypoxia persisted in hospital, on CAP therapy, on modified diet, pulmonary consulted for opinion. 01/24/2025: Patient lying in bed, on Optiflow 40 L / 30%. Continues on antibiotics and steroids. Continues with Mucomyst and vest therapy. Minimal improvement on CXR. 01/25/2025: Patient lying in bed, completely naked, on room air. Per RN, patient just pulled out herPICC line. Plan for ABG. MBS today/tomorrow 01/26/2025: S/p MBS today. Patient doing well on room air. Other Pulm Relevant Hx: Unable to obtain, nonverbal status Imaging reviewed: CTA chest 01/20/25: No CT evidence of pulmonary thromboembolism. 2. Dependent secretions and/or mucous plugging in the left mainstem bronchus and left lower lobe bronchi. Patchy bibasilar opacities could be due to atelectasis or infection 3. Please see above for additional chronic, incidental, and nonemergent findings elsewhere. CXR 01/23/25: INTERVAL DEVELOPMENT OF NEW ABNORMAL PARENCHYMAL OPACITY RIGHT MIDDLE AND LOWER LUNG CONSISTENT WITH ACUTE PNEUMONIA. Testing/Data reviewed: Labs: admission labs to date on 01/23/2025 have been reviewed: Echo: PFT: Sleep Studies: Past Medical History: Diagnosis Date Abdominal pain 04/10/2014 Mild intellectual disabilities Non-smoker Non-verbal learning disorder Osteoporosis History reviewed. No pertinent surgical history. Social History Tobacco Use Smoking status: Never Passive exposure: Never Smokeless tobacco: Never Vaping Use Vaping status: Never Used Substance Use Topics Alcohol use: No Drug use: No No family history on file. ===> pt nonverbal, unable to provide this information. Review of patient's allergies indicates: Allergen Reactions Cefepime Rash acetylcysteine 20 % 400 mg Nebulization 3 times daily RT albuterol 5 mg Nebulization 3 times daily RT clomiPRAMINE 25 mg Oral Daily And clomiPRAMINE 50 mg Oral Nightly at bedtime heparin (porcine) 5,000 Units Subcutaneous 2 times per day methylPREDNISolone 20 mg Intravenous Daily metoprolol tartrate 5 mg Intravenous Q6H pantoprazole 40 mg Intravenous Daily piperacillin-tazobactam 3.375 g Intravenous Q8H risperiDONE 1 mg Oral BID And risperiDONE 0.5 mg Oral Nightly at bedtime solifenacin succinate 10 mg Oral Daily vitamin D3 2,000 Units Oral Daily Dextrose 5 % and 0.45 % NaCl with KCl 20 mEq 100 mL/hr at 01/26/25 0841 albuterol, bisacodyl EC, fluticasone propionate Review of Systems Unable to perform ROS: Patient nonverbal Physical Exam Filed Vitals: 01/25/25 2324 01/26/25 0423 01/26/25 0748 01/26/25 1144 BP: 120/77 (!) 157/88 (!) 149/91 133/81 Pulse: (!) 105 95 (!) 52 (!) 113 Resp: 16 16 28 18 Temp: 97.7 ??F (36.5 ??C) 99 ??F (37.2 ??C) 97.2 ??F (36.2 ??C) TempSrc: Axillary Axillary Axillary Axillary SpO2: 100% 96% 90% 93% Weight: 39.5 kg (87 lb 1.3 oz) Height: GEN: in mild respiratory distress NEURO: nonverbal, somnolent, opens eyes however. Does not follow commands PSYCH: Affect is withdrawn EENT: No sinus tenderness to palpation NECK: Supple, trachea midline LN: No appreciable cervical lymphadenopathy to palpation PULM: rhonchi notes b/l, referred upper airway sounds. HEART: normal s1,s2, rrr, no murmur GI: non-distended, bs+ MSK: Normal passive range of motion of b/l hand/wrist joints without effusion or joint tenderness EXTR: No clubbing ,no edema Skin: No visible rashes, no visible tattoos Assessment # Acute hypoxic respiratory failure -- suspect recurrent aspiration playing a role, this is a recurrent issue for this pt per their staff. # abnormal pulmonary imaging Evidence of aspiration pneumonitis vs pna. # underweight Body mass index is 17.01 kg/m??. Plan Dx: -- additional imaging recommended: CXR with minimal improvement. -- additional work up: RVP negative, strep pneumonia, Legionella ordered -- sputa analysis: respiratory sputum culture ordered, please collect or place cup in room for collection, submit to lab within 2 hours of collection ideally. Tx: --Patient tolerating room air well --S/p MBS today. Appreciate recs -- atb: Continue Zosyn for 5 days -- steroids: Okay to stop steroids may be contributing to restlessness -- inhalers/nebs; currently on none: start chest pt tid with vest / mucomyst and albuterol. -- O2: currently on room air -- pulm toilet: mental status limits this however ideally OOBTC with all meals as able, acapella, and IS use encouraged (please ensure patient has access to these devices as ordered and knows how to use) --Will need repeat CXR in 2-3 weeks for resolution -- Pulmonary will sign off at this time. Please call with any questions Radha Rodrigez DNP (Reavis), DENTURE CONTOUR WIRE SPECIALIST-BC [facility] Pulmonary Medicine PHYSICIAN COMMENTS / ATTESTATION: I, Elvis Sosa, , participated in the care of this patient today, I examined and interviewed the patient independently, and discussed/directed medical decision making/plan of care with Radha Rodrigez, NAT, who shared in this visit. I have reviewed the NAT's documentation and agree with the findings except as I have documented below. Data: Repeat cxr reviewed. Labs reviewed. Assessment # Acute hypoxic respiratory failure Ddx: favor from aspiration, likely recurrent, currently likely c/b pneumonia. # abnormal pulmonary imaging # hx cerebral palsy Plan -- now on RA, recent abg yesterday with acid base levels acceptable/ likely baseline. -- on atb. Day 3 of 5 for zosyn -- stop steroids -- LUDLOW MACHINE OPERATOR recs appreciated / MBS done, diet recs noted -- chest pt / mucolytics / nebs etc as needed. Likely dealing with atelectasis as well. Not much additional to add from pulmonary standpoint at this time. Clinically appears to be improved. Will sign off, call with questions or concerns. Unfortunately at risk for recurrent aspiration. Dr. Enrike Sosa [facility] Pulmonary Medicine * Nichole Ken, VICE PRESIDENT FINANCIAL - 01/26/2025 12:08 PM CDT 01/26/25 1103 Therapy Visit Ordering Provider MD Otoniel Subjective Rm 457: RN ok to see. Pt in bed with sitter present. Reason for admission DX: PNA due to infectious organism Relevant Comorbidities/ Personal Factors to PT PMHX: Vitamin D deficiency, hypokalemia, anxiety, schizophrenia, GERD, HTN, bladder disorder, CP, patient is nonverbal Verified Two Patient Identifiers Yes Patient consents to therapy Yes Acute Inpatient PT Time Calculation PT Start Time 1103 PT Stop Time 1116 PT Time Calculation (min) 13 min Precautions Weight Bearing Status Full weight bearing General Precautions Fall Risk;Bed Alarm;Chair Alarm PPE Used Face mask;Gloves Instructed on Precautions Yes;Needs reinforcement and education Home Living Home Living Comments patient is nonverbal at baseline Pain Pain Patient does not offer or c/o pain Activity Tolerance Endurance Tolerates 10 - 20 min activity with rests Endurance Quality Fair Limiting Factors to Endurance Acute deconditioning;Weakness Activity Tolerance Comments Supine to sit and STS with min/mod assist. Pt ambulated further distance with CHILDREN'S AUTHOR on the R and holding onto IV pole with L hand and min/mod x 2. Cognition Overall Cognitive Status Impaired Following Commands Follows one step commands with repetition Bed Mobility Supine to Sit Min assist to right;Mod assist to right Sit to Supine Min assist to left TRANSFERS Sit to Stand Min assist;Mod assist Gait Gait Assistance Min assist;Mod assist;Assist of 2;With gait belt Assistive Device Other (Comment) (R CHILDREN'S AUTHOR, L IV pole) Pattern Shuffle steps;R Foot flat;L Foot flat Other (Comment) Pt fluccuated with amount of assist, as pt had episodes of increased unsteadiness d/t letting go of IV pole. Balance Sitting - Static Min Assist;Support of both upper extremities Sitting - Dynamic Min Assist;Mod Assist;Support of both upper extremities Standing - Static Min Assist;Mod Assist;Support of both upper extremities Standing - Dynamic Mod Assist;Assist of 2 Persons;Support of both upper extremities Patient/Family Training Bed Mobility x Transfer Training x Gait Training x Discharge Recommendation PT Recommendation Home with assistance;Home PT;PT at jail Facility (PT @ detention vs SNF pend progress) PT Equipment Recommended To Be Determined Plan PT Treatments/Interventions Gait Training;Therapeutic Exercises;Therapeutic Activities;Neuromuscular re-education Progress Slow progress, cognitive deficits PT Frequency 5 times/week If this is the last treatment note,it will serve as the discharge summary Yes End of Session End of Session Safety Bed alarm set/activated;Call light within reach;Nursing aware of session Interdisciplinary Collaboration RN End of Session Comment left with sitter present * Tg Schulte LCSW - 01/26/2025 12:01 PM CDT Pt is progressing towards admission to [facility] but currently with an elevated sodium, beginning an oral diet today following MBS and to complete Zosyn course before discharge. It is anticipated the patient will remain at [facility] until the on Wednesday. However if pt's condition does improve such that dc is to be considered before Wednesday CM staff will need to call the Office of [facility] to get consent for dc/IMM at phone after hours [phone] for the discharge. SW spokewith Nita Hartley at the Office of [place] this date in the absence of Mateo Warren at phone [phone] regarding the placement at [facility] who confirmed agreement for placement at [facility] based on the previously agreed upon referrals in conversation between Mr Warren and Marlyn Curiel RNCM on the . Ms Hartley will update Mr Warren concerning events in his absence. The patient is currently with a staff member in the room to support pt's IV access. The NH is awareand understanding it is for the IV access line that will be out before admission to the NH. They would like the pt to be without observation for 24 hours. The patient will need to travel via amb to be arranged on the day of dc but the PCS is in the skinny chart on the floor. 01/26/25 1055 Interdisciplinary Group Conference Team Members Present Physician;Case/Care management;Nursing;Pharmacy;Herb Digger Physician present for group conference Dr Barroso Patient Current Status Paient current status Inpatient Barriers to Discharge Inpatient Review Barriers to Discharge Inpatient No Barrier- Medical Milestone in Process;Complex Behavior Other follow up (Comment) Parth Warren is the guardian at [facility] No Barrier- Medical Milestone in Process follow up MBS today-Will attempt to feed patient-will monitor elevated sodium for trending down Administering IV meds follow up Zosyn Q8-will dc prior to NH Weaning for Oxygen in Process follow up room air following pulmonology visit Mobility Progression Needs follow up Pt was independent with mobility prior to admit planned to go to rehab at [facility] for therapy upon dc Complex Behavior follow up Pt is with a sitter bedside because she pulls her lines including accessfor IV zosyn-will need to insure no sitter for 24-48 hours Patient expects to be discharged to Patient expects to be discharged to: senior living Facility( SNF) * Sarah Collier, LUDLOW MACHINE OPERATOR - 01/26/2025 10:00 AM CDT SPEECH THERAPY MODIFIED BARIUM SWALLOW Time in: 938 Time out: 0959 Episode of Care: Initial evaluation Date of Onset: 01/20/25 Diagnosis: Pneumonia due to infectious organism Referring Physician: Radha Rodrigez NP Past Medical History: Diagnosis Date Abdominal pain 04/10/2014 Mild intellectual disabilities Non-smoker Non-verbal learning disorder Osteoporosis Subjective: The pt is seen this morning for MBS completion. There has been strong clinical and medical concern for aspiration. The pt participated in a clinical swallow evaluation in June 2024 withrecommendation to complete MBS, but this was never completed. The pt has remained NPO during this admission. The pt is non-verbal at baseline with some positional and behavioral barriers for this evaluation. The pt was transported to the radiology department via stretcher, placed upright, but full lateral view is not achieved throughout as the pt does not always keep her head straight. The pt's shouldersare also a mild barrier at times. The pt is given trials of barium pudding, thin liquid barium, mildly thick liquid barium, and barium cracker consistencies. Dr Arroyo is the present radiologist for the evaluation. The pt's PCT, Tiffany, is also present for the evaluation and attempts to assist in maintaining positioning for the pt. The pt displays no pain behaviors. Objective: ORAL PHASE: Bolus formation and a-p transit is prolonged with tongue pumping noted. Bolus control is decreased with spillover to the valleculae with puree and mildly thick liquids, to the pyriforms with thin liquids. The pt has poor dentition with mastication of regular solids significantly prolonged. There is up to moderate intraoral residue noted, mild anterior loss. Palatal closure is sluggish, but appears complete. PHARYNGEAL PHASE: Tongue base retraction is fair to good, laryngeal elevation/excursion is good, and epiglottic inversion is consistently complete. Laryngeal vestibule closure is complete and there is no observed penetration or aspiration. The pt is noted to consistently and persistently cough after most trials (also weakly at rest), but this is assessed as unrelated to swallow function. There ismild pharyngeal residue noted as pharyngeal stripping wave is fair. UES appears to open adequately. Assessment: Positioning is a barrier during the evaluation, but no penetration/aspiration is observed at any time. Coughing that is present is consistent and somewhat distressful, which would be concerning from a clinical perspective, but without observed penetration/aspiration this is assessed as u nrelated to swallow function. Other areas of deficit include decreased tongue base retraction and weakened pharyngeal stripping wave, along with mild-moderate oropharyngeal residue. Plan: Recommend the pt initiate a puree diet, thin liquids, straw ok, meds whole/halved/crushed in puree. If the pt should remain admitted, the pt will be seen x1 next week to monitor medical and clinical tolerance of this diet. Communication completed with pulmonology [employer], Radha, and RN, Vipin. Thank you for this referral. * Anju Garcia RRT - 01/26/2025 7:04 AM CDT Only left treatment on for 4 minutes * Nata Carpio RN - 01/25/2025 11:03 PM CDT Problem: Discharge Planning Goal: Knowledge of discharge instructions Outcome: Not Met Problem: Reduced risk for falls/injury Goal: Reduced Risk for Falls/Injury Outcome: Not Met Goal: Reduced Risk of Confusion (Acute vs Chronic) Outcome: Not Met Goal: Reduced Risk of Altered Elimination Outcome: Not Met Goal: Reduced Risk of Dizziness/Vertigo/Balance Outcome: Not Met Goal: Reduced Risk of Polypharmacy Outcome: Not Met Problem: Discharge Planning Goal: Knowledge of discharge instructions Outcome: Not Met Problem: Gas Exchange - Impaired Goal: Adequate oxygenation Outcome: Not Met Problem: Pain control/comfort Goal: Promote pain control/comfort Outcome: Progressing Problem: Skin integrity, Impaired-wound Goal: Absence of new skin breakdown Outcome: Progressing Problem: Skin integrity, Impaired-pressure injury/ulcer Goal: Absence of new skin breakdown Outcome: Progressing Problem: Skin integrity, at risk Goal: Absence of new skin breakdown Outcome: Progressing Problem: Moisture associated skin impairment Goal: Reduce moisture exposure Outcome: Progressing Goal: Absence of new skin breakdown Outcome: Progressing Problem: Reduced risk for falls/injury Goal: Reduced Risk of Symptomatic Depression Outcome: Progressing Problem: Activity Intolerance Goal: Improved activity tolerance Outcome: Progressing Problem: Airway Clearance - Ineffective Goal: Patent airway Outcome: Progressing Problem: Breathing Pattern - Ineffective Goal: Respiratory rate within specified parameters Outcome: Progressing Problem: Tobacco Use Goal: Knowledge of tobacco-use cessation methods Outcome: Progressing Problem: Infection - Risk of, Central Venous Catheter-Associated Bloodstream Infection Goal: Absence of Central Venous Catheter Associated Bloodstream Infection Signs and Symptoms Outcome: Completed * Nichole Ken, VICE PRESIDENT FINANCIAL - 01/25/2025 3:37 PM CDT 01/25/25 1355 Therapy Visit Ordering Provider MD Otoniel Subjective Rm 457: RN ok to see, reports pt now on 4L. Reason for admission DX: PNA due to infectious organism Relevant Comorbidities/ Personal Factors to PT PMHX: Vitamin D deficiency, hypokalemia, anxiety, schizophrenia, GERD, HTN, bladder disorder, CP, patient is nonverbal Verified Two Patient Identifiers Yes Patient consents to therapy Yes Acute Inpatient PT Time Calculation PT Start Time 1355 PT Stop Time 1409 PT Time Calculation (min) 14 min Precautions Weight Bearing Status Full weight bearing General Precautions Fall Risk;Bed Alarm;Chair Alarm PPE Used Face mask;Gloves Instructed on Precautions Yes;Needs reinforcement and education Home Living Home Living Comments patient is nonverbal at baseline Pain Pain Patient does not offer or c/o pain Activity Tolerance Endurance Tolerates 10 - 20 min activity with rests Endurance Quality Poor Limiting Factors to Endurance Acute deconditioning;Weakness VS Response During Activity SpO2 96% on 4L Activity Tolerance Comments Supine to sit with min/mod assist with VC/TCs for technique. Instructedpt in STS with min/mod and gait with max assist and SBS x 1 for line management and safety. Pt demonstrated poor safety awareness with w/w. Pt at times would like go of w/w and push in aside. Mod/maxunsteadiness with full turns. Cognition Overall Cognitive Status Impaired Attention Span Difficulty attending to directions Following Commands Follows one step commands inconsistently Initiation Cues to initiate tasks Bed Mobility Supine to Sit Min assist to right;Mod assist to right Sit to Supine Min assist to left TRANSFERS Sit to Stand Min assist;Mod assist Gait Gait Assistance Max assist (SBS x 1) Assistive Device 2 Wheeled walker Distance Ambulated (ft) 40 ft Pattern Shuffle steps;R Foot flat;L Foot flat Other (Comment) Heavy forward flex posture, dec stride. Max VC/TCs to keep w/w close for improved posture and stabily. W/w assistance when making directional changes. Balance Sitting - Static Min Assist;Support of both upper extremities Sitting - Dynamic Min Assist;Mod Assist;Support of both upper extremities Standing - Static Min Assist;Mod Assist;Support of both upper extremities Standing - Dynamic Max Assist;Support of both upper extremities Patient/Family Training Bed Mobility x Transfer Training x Gait Training x Discharge Recommendation PT Recommendation Home with assistance;Home PT;PT at jail Facility (PT @ detention vs SNF pend progress) PT Equipment Recommended To Be Determined Plan PT Treatments/Interventions Gait Training;Therapeutic Exercises;Therapeutic Activities;Neuromuscular re-education Progress Slow progress, medical status limitations PT Frequency 5 times/week If this is the last treatment note,it will serve as the discharge summary Yes End of Session End of Session Safety Bed alarm set/activated;Call light within reach;Nursing aware of session Interdisciplinary Collaboration RN End of Session Comment telesitter postioned toward pt Cosigned by Bipin Torres, PT at 01/25/2025 3:57 PM CDT * Tg Schulte, AUTO DISMANTLER - 01/25/2025 2:20 PM CDT After hours consent line for [facility] [phone]. SW has again left a messagefor Mateo Warren with [employer] to update him regarding decline in pt's condition with no return call. Pt was accepted at [facility] per [place] but they will need to reassess pt's care needs closer to time of dc. 01/25/25 1341 Interdisciplinary Group Conference Team Members Present Physician;Case/Care management;Nursing;Pharmacy;Herb Digger Physician present for group conference Dr Barroso Patient Current Status Paient current status Inpatient Barriers to Discharge Inpatient Review Barriers to Discharge Inpatient No Barrier- Medical Milestone in Process No Barrier- Medical Milestone in Process follow up MBS on the -pt cannot maintain optiflow-willobtain ABG for CO2-pt pulled out her PICC line-Resp failure Administering IV meds follow up LIZZ wiley Q8 Patient expects to be discharged to Patient expects to be discharged to: senior living Facility( SNF) * Lexus Barroso MD - 01/25/2025 1:54 PM CDT Hospitalist Daily Progress Note Subjective This is a 69-year-old y/o female who presents with Pneumonia due to infectious organism. Patient nonverbal and curled in bed. No acute issues per nursing. Objective Filed Vitals: 01/25/25 0737 01/25/25 0751 01/25/25 1114 01/25/25 1122 BP: 131/86 (!) 142/99 Pulse: 99 (!) 106 Resp: 18 20 Temp: 97.9 ??F (36.6 ??C) 97.6 ??F (36.4 ??C) TempSrc: Axillary SpO2: 100% 100% 100% Weight: Height: Physical Exam: Physical Exam Vitals reviewed. Constitutional: Appearance: She is well-developed. She is cachectic. Comments: Lying in position. Eyes open, but does not attempt to interact during my exam Cardiovascular: Rate and Rhythm: Normal rate and regular rhythm. Heart sounds: No murmur heard. Pulmonary: Effort: Pulmonary effort is normal. No respiratory distress. Breath sounds: Normal breath sounds. No wheezing. Abdominal: General: There is no distension. Palpations: Abdomen is soft. Tenderness: There is no abdominal tenderness. Musculoskeletal: General: No swelling. Skin: Findings: No rash. Neurological: Mental Status: She is alert. Comments: Does not follow commands Psychiatric: Comments: nonverbal Intake/Output 24H Total: Intake/Output Summary (Last 24 hours) at 01/25/2025 1355 Last data filed at 01/25/2025 0500 Gross per 24 hour Intake 550 ml Output 1200 ml Net -650 ml Medication acetylcysteine 20 % 400 mg Nebulization 3 times daily RT albuterol 5 mg Nebulization 3 times daily RT clomiPRAMINE 25 mg Oral Daily And clomiPRAMINE 50 mg Oral Nightly at bedtime heparin (porcine) 5,000 Units Subcutaneous 2 times per day methylPREDNISolone 40 mg Intravenous Daily metoprolol tartrate 5 mg Intravenous Q6H pantoprazole 40 mg Intravenous Daily piperacillin-tazobactam 3.375 g Intravenous Q8H risperiDONE 1 mg Oral BID And risperiDONE 0.5 mg Oral Nightly at bedtime solifenacin succinate 10 mg Oral Daily vitamin D3 2,000 Units Oral Daily Dextrose 5 % and 0.45 % NaCl with KCl 20 mEq 100 mL/hr at 01/25/25 0955 PRN Meds: albuterol, bisacodyl EC, fluticasone propionate Labs: Recent Results (from the past 24 hours) BASIC METABOLIC PANEL Collection Time: 01/24/25 3:30 PM Result Value Ref Range GLUCOSE 123 (H) 70 - 99 MG/DL BUN 12 7 - 18 MG/DL CREATININE S/P/B 0.40 (L) 0.55 - 1.02 MG/DL SODIUM S/P/B 150 (H) 136 - 145 MMOL/L POTASSIUM S/P/B 2.6 (LL) 3.5 - 5.1 MMOL/L CHLORIDE S/P/B 110 97 - 115 MMOL/L CO2 40.8 (HH) 21 - 32 MMOL/L CALCIUM S/P/B 9.4 8.5 - 10.1 MG/DL ANION GAP NOT CALCULATED 2 - 10 MMOL/L BUN CREATININE RATIO 30.0 (H) 6 - 26 GFR ESTIMATE >90 >90 ML/MIN/1.73 M2 MRSA SCREENING Collection Time: 01/24/25 5:40 PM Specimen: NASAL Result Value Ref Range SPEC DESCRIPTION NASAL SPECIAL REQUESTS NO SPECIAL REQUEST CULTURE RESULT NO METHICILLIN RESISTANT STAPHYLOCOCCUS AUREUS ISOLATED BASIC METABOLIC PANEL Collection Time: 01/24/25 7:55 PM Result Value Ref Range GLUCOSE 105 (H) 70 - 99 MG/DL BUN 10 7 - 18 MG/DL CREATININE S/P/B 0.43 (L) 0.55 - 1.02 MG/DL SODIUM S/P/B 151 (H) 136 - 145 MMOL/L POTASSIUM S/P/B 3.4 (L) 3.5 - 5.1 MMOL/L CHLORIDE S/P/B 111 97 - 115 MMOL/L CO2 42.0 (HH) 21 - 32 MMOL/L CALCIUM S/P/B 9.2 8.5 - 10.1 MG/DL ANION GAP NOT CALCULATED 2 - 10 MMOL/L BUN CREATININE RATIO 23.4 6 - 26 GFR ESTIMATE >90 >90 ML/MIN/1.73 M2 CBC W/DIFF AUTOMATED Collection Time: 01/25/25 5:59 AM Result Value Ref Range WBC 9.63 4.5 - 11.0 x10'3/uL RBC 4.01 (L) 4.20 - 5.40 x10'6/uL HGB 11.4 (L) 12.0 - 16.0 G/DL HCT 37.2 (L) 38.0 - 48.0 % MCV 92.8 81.0 - 99.0 FL MCH 28.4 27.0 - 31.0 PG MCHC 30.6 (L) 32.0 - 36.0 G/DL RDW 14.2 11.5 - 14.5 % PLT 245 130 - 400 x10'3/uL MPV 10.9 9.3 - 12.2 FL DIFFERENTIAL TYPE AUTOMATED DIFFERENTIAL NEUTROPHILS % 79.1 % LYMPHOCYTES % 14.0 % MONOCYTES % 6.5 % EOSINOPHILS 0.0 % BASOPHILS 0.1 % IMMATURE GRANS % 0.3 % ABS. NEUTROPHILS 7.61 1.80 - 7.70 x10'3/uL ABS. LYMPHOCYTES 1.35 1.00 - 4.80 x10'3/uL ABS. MONOCYTES 0.63 0.24 - 0.86 x10'3/uL ABS. EOSINOPHILS 0.00 (L) 0.04 - 0.36 x10'3/uL ABS. BASOPHILS 0.01 0.01 - 0.08 x10'3/uL ABS. IMMATURE GRANULOCYTES 0.03 0.00 - 0.49 x10'3/uL BASIC METABOLIC PANEL Collection Time: 01/25/25 5:59 AM Result Value Ref Range GLUCOSE 104 (H) 70 - 99 MG/DL BUN 12 7 - 18 MG/DL CREATININE S/P/B 0.68 0.55 - 1.02 MG/DL SODIUM S/P/B 149 (H) 136 - 145 MMOL/L POTASSIUM S/P/B 3.2 (L) 3.5 - 5.1 MMOL/L CHLORIDE S/P/B 110 97 - 115 MMOL/L CO2 37.7 (H) 21 - 32 MMOL/L CALCIUM S/P/B 9.3 8.5 - 10.1 MG/DL ANION GAP 1.3 (L) 2 - 10 MMOL/L BUN CREATININE RATIO 17.7 6 - 26 GFR ESTIMATE >90 >90 ML/MIN/1.73 M2 ARTERIAL BLOOD GAS Collection Time: 01/25/25 10:33 AM Result Value Ref Range PH ARTERIAL 7.44 7.35 - 7.45 PCO2 53.0 (H) 35.0 - 45.0 MMHG PO2 89.0 83.0 - 108.0 MMHG TOTAL CO2 ARTERIAL 37.6 (H) 19.0 - 24.0 MMOL/L BASE EXCESS 9.9 (H) 0.0 - 3.0 MMOL/L O2 SATURATION 97 94.0 - 98.0 % BICARB ARTERIAL 36.0 (H) 21.0 - 28.0 MMOL/L O2 ADMIN ARTERIAL 32% DRAW SITE ARTERIAL RIGHT BRACHIAL POCT glucose Collection Time: 01/25/25 11:13 AM Result Value Ref Range GLUCOSE POC 96 70 - 99 mg/dL X-Ray CXR (01/24/25): Mild improved aeration of the right lung with significant infiltrate persisting in the mid and lower lung. CT head wo con (01/23/25): 1. Stable noncontrast CT of the head; no acute intracranial process identified. 2. Chronic senescent changes including mild volume loss and cerebral white matter chronic small vessel ischemic change. New 3. Nonspecific generalized calvarial hyperostosis. CXR (01/23/25): 1. INTERVAL DEVELOPMENT OF NEW ABNORMAL PARENCHYMAL OPACITY RIGHT MIDDLE AND LOWER LUNG CONSISTENT WITH ACUTE PNEUMONIA. CTA chest (01/20/25): 1. No CT evidence of pulmonary thromboembolism. 2. Dependent secretions and/or mucous plugging in the left mainstem bronchus and left lower lobe bronchi. Patchy bibasilar opacities could be due to atelectasis or infection. CT head wo con (01/20/25): No acute findings CXR (01/20/25): 1. Minimal infiltrates or atelectasis at the right lung base Results for orders placed or performed during the hospital encounter of 01/20/25 ECG 12 lead Narrative [place] Test Date: 2025-01-20 Pat Name: MARIA DEL CARMEN GOLDMAN Department: 41 Room: [id number] Gender: Female [employer]: : [id number] Requested By: MORIAH LORENZO Order Number: [id number] Reading MD: Chevy Dodson Measurements Intervals [place] Rate: 85 P: 17 [place]: 149 QRS: -26 QRSD: 91 T: 30 QT: 293 QTc: 349 Interpretive Statements SINUS RHYTHM VOLTAGE CRITERIA FOR LVH [MEETS CRITERIA IN ONE OF: R(aVL), S(V1), R(V5), R(V5/V6)+S(V1)] POSSIBLE SEPTAL MYOCARDIAL INFARCTION [30 ms Q WAVE IN V1/V2], OF INDETERMINATE AGE Compared to ECG 04/27/2024 12:57:46 Left-axis deviation no longer present Myocardial infarct finding still present E PAVER Assessment/Plan: Aspiration pneumonia No signs of sepsis on admission. PCT <0.05 Respiratory PCR negative Sputum cx ordered, not yet obtained. CTA chest (01/20) with dependent secretions with mucous plugging in the left main bronchus and left lower lobe bronchi with patchy bibasilar opacities Repeat CT chest (01/23) with interval development of right lung multifocal multilobar airspace consolidation with air bronchograms in the right upper, middle and lower lobes. Pulm consulted, appreciate recs. IV azithromycin (01/20-01/24) IV Rocephin (01/20 - 01/23) changed to IV Vanc (01/23-01/25)/Cefepime (01/23 - 01/24) Vanc dc'd secondary to MRSA screen neg. Again changed to IV Zosyn (01/24 - ) NPO with concerns for persistent aspiration. Plan for MBS tomorrow Acute respiratory failure with hypoxia and hypercapnea Suspect related to recurrent aspiration. Resp panel (01/20 and 01/23) neg. ABG (01/23): 7.49/60/47.5/77 O2 sats had been reasonable on 2L until 01/23 when sPO2 down to 87% on RA with increased work of breathing. Placed on 40L Optiflow with low FIO2 to help with CO2 washout, however still elevated - has had intermittent compliance with use. Repeat ABG 7.44/53/37.6/89 Doubt patient would be able to use acapella or IS with her mental status. Hypernatremia Na up to 154. IV fluids with D5 1/2NS. Monitor/adjust fluids as needed. Hypokalemia K 3.3 on admission Today K 2.8 --> 5.2 --> 2.6 on 01/24. Suspect 5.2 was a lab error Replaced with IV KCl Unable to take po. Now up to 3.2. Continue to replace. R facial droop Noted on 01/23. CT head with chronic senescent changes including mild volume loss and cerebral white matter chronicsmall vessel ischemic change - no acute issues. Neuro checks. Not clear on exam today. Could consider MRI, however overall prognosis is very poor overall. Elevated D dimer Suspect related to resp issues/infection as above. CTA chest neg Cerebral palsy/schizophrenia/nonverbal Resides at detention prior to admission. At baseline, nonverbal, but walks around independently Currently very weak and would need rehab prior to return to detention. Supportive care Continue home medications DVT prophylaxis Heparin Sub Q Code status FULL CODE Parth Warren is her state appointed guardian. LEXUS BARROSO MD 01/25/2025 1:55 PM * Elvis Sosa DO - 01/25/2025 11:44 AM CDT Pulmonary Consultation Note History CC: hypoxia/pna HPI: Maria Del Carmen Goldman is a 69-year-old female with a PMHx of cerebral palsy / intellectual disability/ nonverbal status, who presents to [facility] on 01/20/25 with worsening breathing after she was eating with notable hypoxia afterwards. -- hypoxia persisted in hospital, on CAP therapy, on modified diet, pulmonary consulted for opinion. 01/24/2025: Patient lying in bed, on Optiflow 40 L / 30%. Continues on antibiotics and steroids. Continues with Mucomyst and vest therapy. Minimal improvement on CXR. 01/25/2025: Patient lying in bed, completely naked, on room air. Per RN, patient just pulled out herPICC line. Plan for ABG. MBS today/tomorrow Other Pulm Relevant Hx: Unable to obtain, nonverbal status Imaging reviewed: CTA chest 01/20/25: No CT evidence of pulmonary thromboembolism. 2. Dependent secretions and/or mucous plugging in the left mainstem bronchus and left lower lobe bronchi. Patchy bibasilar opacities could be due to atelectasis or infection 3. Please see above for additional chronic, incidental, and nonemergent findings elsewhere. CXR 01/23/25: INTERVAL DEVELOPMENT OF NEW ABNORMAL PARENCHYMAL OPACITY RIGHT MIDDLE AND LOWER LUNG CONSISTENT WITH ACUTE PNEUMONIA. Testing/Data reviewed: Labs: admission labs to date on 01/23/2025 have been reviewed: Echo: PFT: Sleep Studies: Past Medical History: Diagnosis Date Abdominal pain 04/10/2014 Mild intellectual disabilities Non-smoker Non-verbal learning disorder Osteoporosis History reviewed. No pertinent surgical history. Social History Tobacco Use Smoking status: Never Passive exposure: Never Smokeless tobacco: Never Vaping Use Vaping status: Never Used Substance Use Topics Alcohol use: No Drug use: No No family history on file. ===> pt nonverbal, unable to provide this information. Review of patient's allergies indicates: Allergen Reactions Cefepime Rash acetylcysteine 20 % 400 mg Nebulization 3 times daily RT albuterol 5 mg Nebulization 3 times daily RT clomiPRAMINE 25 mg Oral Daily And clomiPRAMINE 50 mg Oral Nightly at bedtime heparin (porcine) 5,000 Units Subcutaneous 2 times per day methylPREDNISolone 40 mg Intravenous Daily metoprolol tartrate 5 mg Intravenous Q6H pantoprazole 40 mg Intravenous Daily piperacillin-tazobactam 3.375 g Intravenous Q8H risperiDONE 1 mg Oral BID And risperiDONE 0.5 mg Oral Nightly at bedtime solifenacin succinate 10 mg Oral Daily vancomycin 750 mg Intravenous Q18H vancomycin pharmacy to dose Intravenous See Admin Instructions vitamin D3 2,000 Units Oral Daily Dextrose 5 % and 0.45 % NaCl with KCl 20 mEq 100 mL/hr at 01/25/25 0955 albuterol, bisacodyl EC, fluticasone propionate Review of Systems Unable to perform ROS: Patient nonverbal Physical Exam Filed Vitals: 01/25/25 0737 01/25/25 0751 01/25/25 1114 01/25/25 1122 BP: 131/86 (!) 142/99 Pulse: 99 (!) 106 Resp: 18 20 Temp: 97.9 ??F (36.6 ??C) 97.6 ??F (36.4 ??C) TempSrc: Axillary SpO2: 100% 100% 100% Weight: Height: GEN: in mild respiratory distress NEURO: nonverbal, somnolent, opens eyes however. Does not follow commands PSYCH: Affect is withdrawn EENT: No sinus tenderness to palpation NECK: Supple, trachea midline LN: No appreciable cervical lymphadenopathy to palpation PULM: rhonchi notes b/l, referred upper airway sounds. HEART: normal s1,s2, rrr, no murmur GI: non-distended, bs+ MSK: Normal passive range of motion of b/l hand/wrist joints without effusion or joint tenderness EXTR: No clubbing ,no edema Skin: No visible rashes, no visible tattoos Assessment # Acute hypoxic respiratory failure -- suspect recurrent aspiration playing a role, this is a recurrent issue for this pt per their staff. # abnormal pulmonary imaging Evidence of aspiration pneumonitis vs pna. # underweight Body mass index is 16.53 kg/m??. Plan Dx: -- additional imaging recommended: CXR with minimal improvement. -- additional work up: RVP negative, strep pneumonia, Legionella ordered -- sputa analysis: respiratory sputum culture ordered, please collect or place cup in room for collection, submit to lab within 2 hours of collection ideally. Tx: -- GIVEN CONCERN FOR ASPIRATION / RECURRENT SUGGEST NPO PENDING A GOC DISCUSSION WITH FAMILY. Suggest no po intake until formal swallow evaluation / MBS can take place however given burden of mucus plugging/aspiration would hold this for the time being as to not worsen respiratory status. --Unable to obtain MBS today, plan for tomorrow. Ordered --ABG ordered for today. Patient unable to keep Optiflow in place. -- atb: Continue Vanco/cefepime. MRSA negative. Can likely DC vancomycin -- steroids: currently on none, add solumedrol 40mg bid for now. . -- inhalers/nebs; currently on none: start chest pt tid with vest / mucomyst and albuterol. -- O2: currently on 2L NC with spo2 high 90s on this, d/w RT to provide with optiflo with high flowand low fio2 maintain SpO2 90-96% ==> to help with co2 washout etc, do not feel will tolerate cpap or bipap given her impaired mentation/aspiration etc. -Will check ABG today-to see if decrease in CO2 -- pulm toilet: mental status limits this however ideally OOBTC with all meals as able, acapella, and IS use encouraged (please ensure patient has access to these devices as ordered and knows how to use) Will continue to follow, please don't hesitate to page/text with questions or concerns. Radha Rodrigez DNP ([place]), [facility] Pulmonary Medicine PHYSICIAN COMMENTS / ATTESTATION: I, Elvis Sosa DO, participated in the care of this patient today, I examined and interviewed the patient independently, and discussed/directed medical decision making/plan of care with Radha Rodrigez, NAT, who shared in this visit. I have reviewed the NAT's documentation and agree with the findings except as I have documented below. Data: Repeat cxr reviewed. Labs reviewed. Assessment # Acute hypoxic respiratory failure Ddx: favor from aspiration, likely recurrent, currently likely c/b pneumonia. # abnormal pulmonary imaging # hx cerebral palsy Plan -- now on RA, tolerating this per ABG without hypoxia, and acid base levels acceptable/ likely baseline. -- npo for now, entertain swallow eval/MBS tomorrow -- on atb. Day 2 of 5 for zosyn.. -- cxr in am -- plan to switch to IV solumedrol to 20mg daily tomorrow for 3 more days and stop. (Convert to po when able. ) -- continue chest pt / mucolytics / nebs eetc. Will follow Dr. Enrike Sosa [facility] Pulmonary Medicine * Nata Carpio RN - 01/25/2025 12:12 AM CDT Problem: Discharge Planning Goal: Knowledge of discharge instructions Outcome: Not Met Problem: Reduced risk for falls/injury Goal: Reduced Risk for Falls/Injury Outcome: Not Met Goal: Reduced Risk of Confusion (Acute vs Chronic) Outcome: Not Met Goal: Reduced Risk of Altered Elimination Outcome: Not Met Goal: Reduced Risk of Dizziness/Vertigo/Balance Outcome: Not Met Goal: Reduced Risk of Polypharmacy Outcome: Not Met Problem: Discharge Planning Goal: Knowledge of discharge instructions Outcome: Not Met Problem: Activity Intolerance Goal: Improved activity tolerance Outcome: Not Met Problem: Gas Exchange - Impaired Goal: Adequate oxygenation Outcome: Not Met Problem: Pain control/comfort Goal: Promote pain control/comfort Outcome: Progressing Problem: Skin integrity, Impaired-wound Goal: Absence of new skin breakdown Outcome: Progressing Problem: Skin integrity, Impaired-pressure injury/ulcer Goal: Absence of new skin breakdown Outcome: Progressing Problem: Skin integrity, at risk Goal: Absence of new skin breakdown Outcome: Progressing Problem: Moisture associated skin impairment Goal: Reduce moisture exposure Outcome: Progressing Goal: Absence of new skin breakdown Outcome: Progressing Problem: Reduced risk for falls/injury Goal: Reduced Risk of Symptomatic Depression Outcome: Progressing Problem: Infection - Risk of, Central Venous Catheter-Associated Bloodstream Infection Goal: Absence of Central Venous Catheter Associated Bloodstream Infection Signs and Symptoms Outcome: Progressing Problem: Airway Clearance - Ineffective Goal: Patent airway Outcome: Progressing Problem: Breathing Pattern - Ineffective Goal: Respiratory rate within specified parameters Outcome: Progressing Problem: Tobacco Use Goal: Knowledge of tobacco-use cessation methods Outcome: Progressing * Ruth Adhikari RN - 01/24/2025 4:04 PM CDT Problem: Discharge Planning Goal: Knowledge of discharge instructions Outcome: Not Met Problem: Pain control/comfort Goal: Promote pain control/comfort Outcome: Not Met Problem: Skin integrity, Impaired-wound Goal: Absence of new skin breakdown Outcome: Progressing Problem: Skin integrity, Impaired-pressure injury/ulcer Goal: Absence of new skin breakdown Outcome: Not Met Problem: Skin integrity, at risk Goal: Absence of new skin breakdown Outcome: Progressing Problem: Moisture associated skin impairment Goal: Reduce moisture exposure Outcome: Progressing Problem: Moisture associated skin impairment Goal: Absence of new skin breakdown Outcome: Progressing Problem: Reduced risk for falls/injury Goal: Reduced Risk for Falls/Injury Outcome: Not Met Goal: Reduced Risk of Confusion (Acute vs Chronic) Outcome: Not Met Goal: Reduced Risk of Symptomatic Depression Outcome: Not Met Goal: Reduced Risk of Altered Elimination Outcome: Not Met Goal: Reduced Risk of Dizziness/Vertigo/Balance Outcome: Not Met Goal: Reduced Risk of Polypharmacy Outcome: Not Met Problem: Infection - Risk of, Central Venous Catheter-Associated Bloodstream Infection Goal: Absence of Central Venous Catheter Associated Bloodstream Infection Signs and Symptoms Outcome: Not Met * BÁRBARA Corona - 01/24/2025 2:41 PM CDT 01/24/25 1439 Therapy Visit Subjective Order received for Swallowing evaluation on this pt. Given history and discussion with pulmonology, best course of action is for an MBS. This date the pt is not medically stable for this (fragile respiratory status). Pulmonology to re-visit pt's ability to participate in study tomorrow. * Elizabeth Sánchez PTA - 01/24/2025 2:30 PM CDT 01/24/25 1430 Therapy Visit Ordering Provider MD Otoniel PT Received On 01/24/25 Subjective [id number]; Attempted to see pt and pt was sleeping and lethargic with highflow on and will follow up later time and date Reason for admission DX: PNA due to infectious organism Relevant Comorbidities/ Personal Factors to PT PMHX: Vitamin D deficiency, hypokalemia, anxiety, schizophrenia, GERD, HTN, bladder disorder, CP, patient is nonverbal * Elvis Sosa DO - 01/24/2025 1:10 PM CDT Pulmonary Consultation Note History CC: hypoxia/pna HPI: Maria Del Carmen Goldman is a 69-year-old female with a PMHx of cerebral palsy / intellectual disability/ nonverbal status, who presents to [facility] on 01/20/25 with worsening breathing after she was eating with notable hypoxia afterwards. -- hypoxia persisted in hospital, on CAP therapy, on modified diet, pulmonary consulted for opinion. 01/24/2025: Patient lying in bed, on Optiflow 40 L / 30%. Continues on antibiotics and steroids. Continues with Mucomyst and vest therapy. Minimal improvement on CXR. Other Pulm Relevant Hx: Unable to obtain, nonverbal status Imaging reviewed: CTA chest 01/20/25: No CT evidence of pulmonary thromboembolism. 2. Dependent secretions and/or mucous plugging in the left mainstem bronchus and left lower lobe bronchi. Patchy bibasilar opacities could be due to atelectasis or infection 3. Please see above for additional chronic, incidental, and nonemergent findings elsewhere. CXR 01/23/25: INTERVAL DEVELOPMENT OF NEW ABNORMAL PARENCHYMAL OPACITY RIGHT MIDDLE AND LOWER LUNG CONSISTENT WITH ACUTE PNEUMONIA. Testing/Data reviewed: Labs: admission labs to date on 01/23/2025 have been reviewed: Echo: PFT: Sleep Studies: Past Medical History: Diagnosis Date Abdominal pain 04/10/2014 Mild intellectual disabilities Non-smoker Non-verbal learning disorder Osteoporosis History reviewed. No pertinent surgical history. Social History Tobacco Use Smoking status: Never Passive exposure: Never Smokeless tobacco: Never Vaping Use Vaping status: Never Used Substance Use Topics Alcohol use: No Drug use: No No family history on file. ===> pt nonverbal, unable to provide this information. Review of patient's allergies indicates: No Known Allergies acetylcysteine 20 % 400 mg Nebulization 3 times daily RT albuterol 5 mg Nebulization 3 times daily RT azithromycin 500 mg Intravenous Q24H cefepime 2 g Intravenous Q12H clomiPRAMINE 25 mg Oral Daily And clomiPRAMINE 50 mg Oral Nightly at bedtime heparin (porcine) 5,000 Units Subcutaneous 2 times per day metoprolol tartrate 5 mg Intravenous Q6H pantoprazole 40 mg Intravenous Daily risperiDONE 1 mg Oral BID And risperiDONE 0.5 mg Oral Nightly at bedtime solifenacin succinate 10 mg Oral Daily vancomycin 750 mg Intravenous Q18H vancomycin pharmacy to dose Intravenous See Admin Instructions vitamin D3 2,000 Units Oral Daily dextrose 100 mL/hr at 01/24/25 1137 albuterol, bisacodyl EC, fluticasone propionate Review of Systems Unable to perform ROS: Patient nonverbal Physical Exam Filed Vitals: 01/24/25 0459 01/24/25 0719 01/24/25 0901 01/24/25 1040 BP: (!) 140/93 (!) 162/98 (!) 166/105 104/79 Pulse: 89 (!) 108 94 Resp: 24 Temp: 98.6 ??F (37 ??C) 97.7 ??F (36.5 ??C) 97.7 ??F (36.5 ??C) TempSrc: Axillary Axillary Axillary SpO2: 100% 95% 97% Weight: 39 kg (85 lb 15.7 oz) Height: GEN: in mild respiratory distress NEURO: nonverbal, somnolent, opens eyes however. Does not follow commands PSYCH: Affect is withdrawn EENT: No sinus tenderness to palpation NECK: Supple, trachea midline LN: No appreciable cervical lymphadenopathy to palpation PULM: rhonchi notes b/l, referred upper airway sounds. HEART: normal s1,s2, rrr, no murmur GI: non-distended, bs+ MSK: Normal passive range of motion of b/l hand/wrist joints without effusion or joint tenderness EXTR: No clubbing ,no edema Skin: No visible rashes, no visible tattoos Assessment # Acute hypoxic respiratory failure -- suspect recurrent aspiration playing a role, this is a recurrent issue for this pt per their staff. # abnormal pulmonary imaging Evidence of aspiration pneumonitis vs pna. # underweight Body mass index is 16.79 kg/m??. Plan Dx: -- additional imaging recommended: CXR with minimal improvement. --Can repeat CXR in a.m. -- additional work up: RVP negative, strep pneumonia, Legionella ordered -- sputa analysis: respiratory sputum culture ordered, please collect or place cup in room for collection, submit to lab within 2 hours of collection ideally. Tx: -- GIVEN CONCERN FOR ASPIRATION / RECURRENT SUGGEST NPO PENDING A GOC DISCUSSION WITH FAMILY. Suggest no po intake until formal swallow evaluation / MBS can take place however given burden of mucus plugging/aspiration would hold this for the time being as to not worsen respiratory status. --Will eval readiness for MBS again tomorrow -- atb: Continue Vanco/cefepime. MRSA screen ordered -- steroids: currently on none, add solumedrol 40mg bid for now. . -- inhalers/nebs; currently on none: start chest pt tid with vest / mucomyst and albuterol. -- O2: currently on 2L NC with spo2 high 90s on this, d/w RT to provide with optiflo with high flowand low fio2 maintain SpO2 90-96% ==> to help with co2 washout etc, do not feel will tolerate cpap or bipap given her impaired mentation/aspiration etc. -- pulm toilet: mental status limits this however ideally OOBTC with all meals as able, acapella, and IS use encouraged (please ensure patient has access to these devices as ordered and knows how to use) Will continue to follow, please don't hesitate to page/text with questions or concerns. Radha Rodrigez DNP ([place]), [facility] Pulmonary Medicine PHYSICIAN COMMENTS / ATTESTATION: I, Elvis Sosa DO, participated in the care of this patient today, I examined and interviewed the patient independently, and discussed/directed medical decision making/plan of care with Radha Rodrigez, NAT, who shared in this visit. I have reviewed the NAT's documentation and agree with the findings except as I have documented below. Data: Repeat cxr reviewed. Labs reviewed. Assessment # Acute hypoxic respiratory failure Ddx: favor from aspiration, likely recurrent, currently likely c/b pneumonia. # abnormal pulmonary imaging # hx cerebral palsy Plan -- optiflo (more for co2 clearance/humidity than need for hi FiO2 etc) 40L flow, titration, please titrate supplemental O2 to maintain SpO2 90-96% -- npo for now, entertain swallow eval/MBS tomorrow with interval improvement. -- on atb. -- start IV Steroids (today) -- continue chest pt / mucolytics / nebs eetc. Will continue to follow, please don't hesitate to page/text with questions or concerns. Dr. Enrike Sosa [facility] Pulmonary Medicine * Catalino Degroot RN - 01/24/2025 12:49 PM CDT Procedure Note: PICC Placement Order Details: Order received for PICC placement. Chart reviewed. Indication for insertion: Infection and multiplemedication drips to be administered including vancomycin. Order verified with NORM Miranda Time Out: Time out performed with NORM Miranda. Patient???s name, date of , and armband verified. Consent obtained and documented in the chart.Patient did have some redness to her face and chest, Johny stated it is not new but would notify Dr. Barroso about it. Ultrasound Examination: Upper arm vasculature examined at the bedside via ultrasound. No signs or symptoms of thrombosis (e.g., swelling, redness, pain, echogenicities) noted in the extremity where the PICC was inserted. The largest vessel suitable for PICC placement was utilized; the vessel was non-pulsatile and easily compressible. Per [facility] the CVR for a 5 irish catheter is 40 % with a vein diameter of 4.3 mm. The patient was encouraged to move the arm with the PICC to promote circulation and prevent thrombus formation. Aseptic Technique: Aseptic technique was strictly followed: hand hygiene performed, sterile gown, sterile gloves, mask, goggles, cap, sterile probe cover, and large sterile drape used. The site was prepped with chlorhexidine scrub and allowed to dry completely prior to the first skin puncture. Local Anesthetic: Lidocaine 1%, 3 mL administered subcutaneously to the insertion site prior to insertion. Ultrasoundutilized with one attempt(s) to the right basilic vein. Cannulation Procedure: Cannulation of the vessel was confirmed through direct visualization of the needle tip within the target vessel. The guidewire was advanced through the needle without issues, and the needle was removed intact. The introducer/dilator was placed over the wire, and the guidewire was removed; it was inspected and confirmed to be completely intact. Catheter Placement: The PICC was trimmed to the documented length and advanced into the SVC without issues. Able to obtain maximum P-wave amplitude without deflection on the 3CG. Exposed catheter: 3 cm ronda. The PICC guidewire was removed; it was inspected and confirmed to be completely intact. Catheter Verification: Tip verified in the superior vena cava per protocol via 3CG. Line confirmed to be safe for use. Dressing and Stabilization: A skin barrier was applied, and the PICC line was secured with a StatLock stabilization device. A transparent dressing with CHG was applied. Blood return was obtained, and each lumen was flushed without resistance; Curos caps were applied to the needleless connectors. Complications: Detail of complication: None Post-Procedure Instructions: If the insertion site begins to bleed or leak, apply a small pressure dressing over the site for 20minutes or until bleeding stops. If necessary, change the dressing and StatLock if blood extends beyond the CHG gel/disc coverage area 24 hours post-insertion. StatSeal or QuikClot may be applied before placing a new dressing. If StatSeal is utilized, hold pressure over the insertion site for 5- 10 minutes before re-dressing to ensure coagulation at the site. Patient Response: Patient response: Good, no issues Safety Check: Safety check complete; bed in low locked position with side rails up x 3. Call light and belongingswithin reach. NORM Miranda updated. Drew WHITE, RN, PHRN, EMTP * Tg Schulte LCSW - 01/24/2025 10:37 AM CDT SW left a message for Parth Warren with the [employer] requesting return call concerning the patient's condition and circumstances. Mr Warren is from the [place] [employer] but working in the field today and will retrieve his messages remotely. Contact number is [phone] with option 1 then option 2 to request to speak with Mr Warren. As well ELHAM facilitated contact with the [facility] staff member in the [place] office providing consents today for the Office of State [facility] for nursing to obtain consent for PICC line placement. NORM Adhikari spoke with Ladan Larson by phone at 10:15 to obtain consent. 1:15 Additional message left for Parth Warren with [facility] requesting return call and also leaving thenumber for the floor on tele B for nursing contact if return call is after hours. * Lexus Barroso MD - 01/24/2025 8:08 AM CDT Hospitalist Daily Progress Note Subjective This is a 69-year-old y/o female who presents with Pneumonia due to infectious organism. Patient nonverbal and curled in bed. Per nursing, developed erythema at the infusion site with Cefepime. Objective Filed Vitals: 01/23/25 2300 01/24/25 0357 01/24/25 0459 01/24/25 0719 BP: (!) 136/91 (!) 140/93 (!) 162/98 Pulse: (!) 108 89 (!) 108 Resp: 24 Temp: 98.4 ??F (36.9 ??C) 98.6 ??F (37 ??C) 97.7 ??F (36.5 ??C) TempSrc: Oral Axillary Axillary SpO2: 99% 97% 100% 95% Weight: 39 kg (85 lb 15.7 oz) Height: Physical Exam: Physical Exam Vitals reviewed. Constitutional: Appearance: She is well-developed. She is cachectic. Cardiovascular: Rate and Rhythm: Normal rate and regular rhythm. Heart sounds: No murmur heard. Pulmonary: Effort: Pulmonary effort is normal. No respiratory distress. Breath sounds: Normal breath sounds. No wheezing. Abdominal: General: There is no distension. Palpations: Abdomen is soft. Tenderness: There is no abdominal tenderness. Musculoskeletal: General: No swelling. Skin: Findings: No rash. Neurological: Mental Status: She is alert. Comments: Does not follow commands Psychiatric: Comments: nonverbal Intake/Output 24H Total: No intake or output data in the 24 hours ending 01/24/25 0808 Medication acetylcysteine 20 % 400 mg Nebulization 3 times daily RT albuterol 5 mg Nebulization 3 times daily RT azithromycin 500 mg Intravenous Q24H cefepime 2 g Intravenous Q12H clomiPRAMINE 25 mg Oral Daily And clomiPRAMINE 50 mg Oral Nightly at bedtime heparin (porcine) 5,000 Units Subcutaneous 2 times per day metoprolol tartrate 5 mg Intravenous Q6H pantoprazole 40 mg Intravenous Daily potassium chloride 40 mEq Intravenous Once potassium chloride 40 mEq Intravenous Once risperiDONE 1 mg Oral BID And risperiDONE 0.5 mg Oral Nightly at bedtime sodium chloride 1 g Oral Daily solifenacin succinate 10 mg Oral Daily vancomycin 750 mg Intravenous Q18H vancomycin pharmacy to dose Intravenous See Admin Instructions vitamin D3 2,000 Units Oral Daily dextrose 5 % 1,000 mL with potassium chloride 20 mEq infusion PRN Meds: albuterol, bisacodyl EC, fluticasone propionate Labs: Recent Results (from the past 24 hours) RESPIRATORY PCR PANEL 2 Collection Time: 01/23/25 3:01 PM Specimen: NASOPHARYNGEAL SWAB Result Value Ref Range ADENOVIRUS PCR (RESP) NOT DETECTED NOT DETECTED CORONAVIRUS 229E PCR (RESP) NOT DETECTED NOT DETECTED CORONAVIRUS HKU1 PCR (RESP) NOT DETECTED NOT DETECTED CORONAVIRUS NL63 PCR (RESP) NOT DETECTED NOT DETECTED CORONAVIRUS OC43 PCR (RESP) NOT DETECTED NOT DETECTED METAPNEUMOVIRUS PCR (RESP) NOT DETECTED NOT DETECTED RHINOVIRUS/ENTEROVIRUS PCR (RESP) NOT DETECTED NOT DETECTED INFLUENZA A PCR (RESP) NOT DETECTED NOT DETECTED INFLUENZA B PCR (RESP) NOT DETECTED NOT DETECTED PARAINFLUENZA 1 PCR (RESP) NOT DETECTED NOT DETECTED PARAINFLUENZA 2 PCR (RESP) NOT DETECTED NOT DETECTED PARAINFLUENZA 3 PCR (RESP) NOT DETECTED NOT DETECTED PARAINFLUENZA 4 PCR (RESP) NOT DETECTED NOT DETECTED RSV PCR (RESP) NOT DETECTED NOT DETECTED B PARAPERTUSIS PCR (RESP) NOT DETECTED NOT DETECTED BORDETELLA PERTUSSIS PCR (RESP) NOT DETECTED NOT DETECTED CHLAMYDOPHILA PNEUMONIAE PCR (RESP) NOT DETECTED NOT DETECTED MYCOPLASMA PNEUMONIAE PCR (RESP) NOT DETECTED NOT DETECTED CORONAVIRUS SARS COV 2 PCR (RESP) NOT DETECTED NOT DETECTED POCT glucose Collection Time: 01/23/25 8:54 PM Result Value Ref Range GLUCOSE POC 97 70 - 99 mg/dL PROCALCITONIN (PCT) Collection Time: 01/23/25 9:20 PM Result Value Ref Range Procalcitonin <0.05 0.00 - 0.49 NG/ML PRO-BRAIN NATRIURETIC PEPTIDE Collection Time: 01/23/25 9:20 PM Result Value Ref Range PRO-B TYPE NATRIURETIC PEPTIDE 812 (H) <125 PG/ML ARTERIAL BLOOD GAS Collection Time: 01/23/25 9:57 PM Result Value Ref Range PH ARTERIAL 7.49 (H) 7.35 - 7.45 PCO2 60.0 (H) 35.0 - 45.0 MMHG PO2 77.0 (L) 83.0 - 108.0 MMHG TOTAL CO2 ARTERIAL 47.5 (H) 19.0 - 24.0 MMOL/L BASE EXCESS 18.9 (H) 0.0 - 3.0 MMOL/L O2 SATURATION 96 94.0 - 98.0 % BICARB ARTERIAL 45.7 (H) 21.0 - 28.0 MMOL/L O2 ADMIN ARTERIAL 30 DRAW SITE ARTERIAL RT BRACH Vancomycin Random Level Collection Time: 01/24/25 6:12 AM Result Value Ref Range VANCOMYCIN RANDOM 8.1 MCG/ML LAST DOSE PENDING CBC W/DIFF AUTOMATED Collection Time: 01/24/25 6:12 AM Result Value Ref Range WBC 10.90 4.5 - 11.0 x10'3/uL RBC 4.12 (L) 4.20 - 5.40 x10'6/uL HGB 11.5 (L) 12.0 - 16.0 G/DL HCT 38.7 38.0 - 48.0 % MCV 93.9 81.0 - 99.0 FL MCH 27.9 27.0 - 31.0 PG MCHC 29.7 (L) 32.0 - 36.0 G/DL RDW 14.2 11.5 - 14.5 % PLT 238 130 - 400 x10'3/uL MPV 11.0 9.3 - 12.2 FL DIFFERENTIAL TYPE AUTOMATED DIFFERENTIAL NEUTROPHILS % 81.4 % LYMPHOCYTES % 11.7 % MONOCYTES % 6.5 % EOSINOPHILS 0.0 % BASOPHILS 0.1 % IMMATURE GRANS % 0.3 % ABS. NEUTROPHILS 8.87 (H) 1.80 - 7.70 x10'3/uL ABS. LYMPHOCYTES 1.28 1.00 - 4.80 x10'3/uL ABS. MONOCYTES 0.71 0.24 - 0.86 x10'3/uL ABS. EOSINOPHILS 0.00 (L) 0.04 - 0.36 x10'3/uL ABS. BASOPHILS 0.01 0.01 - 0.08 x10'3/uL ABS. IMMATURE GRANULOCYTES 0.03 0.00 - 0.49 x10'3/uL BASIC METABOLIC PANEL Collection Time: 01/24/25 6:12 AM Result Value Ref Range GLUCOSE 82 70 - 99 MG/DL BUN 13 7 - 18 MG/DL CREATININE S/P/B 0.49 (L) 0.55 - 1.02 MG/DL SODIUM S/P/B 154 (H) 136 - 145 MMOL/L POTASSIUM S/P/B 2.8 (LL) 3.5 - 5.1 MMOL/L CHLORIDE S/P/B 113 97 - 115 MMOL/L CO2 34.7 (H) 21 - 32 MMOL/L CALCIUM S/P/B 9.7 8.5 - 10.1 MG/DL ANION GAP 6.3 2 - 10 MMOL/L BUN CREATININE RATIO 26.4 (H) 6 - 26 GFR ESTIMATE >90 >90 ML/MIN/1.73 M2 X-Ray CXR (01/24/25): Mild improved aeration of the right lung with significant infiltrate persisting in the mid and lower lung. CT head wo con (01/23/25): 1. Stable noncontrast CT of the head; no acute intracranial process identified. 2. Chronic senescent changes including mild volume loss and cerebral white matter chronic small vessel ischemic change. New 3. Nonspecific generalized calvarial hyperostosis. CXR (01/23/25): 1. INTERVAL DEVELOPMENT OF NEW ABNORMAL PARENCHYMAL OPACITY RIGHT MIDDLE AND LOWER LUNG CONSISTENT WITH ACUTE PNEUMONIA. CTA chest (01/20/25): 1. No CT evidence of pulmonary thromboembolism. 2. Dependent secretions and/or mucous plugging in the left mainstem bronchus and left lower lobe bronchi. Patchy bibasilar opacities could be due to atelectasis or infection. CT head wo con (01/20/25): No acute findings CXR (01/20/25): 1. 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 PCT <0.05 Respiratory PCR negative Sputum cx ordered, not yet obtained. CTA chest (01/20) with dependent secretions with mucous plugging in the left main bronchus and left lower lobe bronchi with patchy bibasilar opacities Repeat CT chest (01/23) with interval development of right lung multifocal multilobar airspace consolidation with air bronchograms in the right upper, middle and lower lobes. Pulm consulted, appreciate recs. IV azithromycin (01/20-01/24) IV Rocephin (01/20 - 01/23) changed to IV Cefepime (01/23 - ) NPO with concerns for persistent aspiration. Plan for MBS once respiratory status improving. Acute respiratory failure with hypoxia and hypercapnea Suspect related to recurrent aspiration. Resp panel (01/20 and 01/23) neg. ABG (01/23): 7.49/60/47.5/77 O2 sats had been reasonable on 2L until 01/23 when sPO2 down to 87% on RA with increased work of breathing. Placed on 40L Optiflow with low FIO2 to help with CO2 washout, however still elevated. Doubt patient would be able to use acapella or IS with her mental status. Hypernatremia Na up to 154 today. IV fluids with D5. BMP q 4. Monitor/adjust fluids as needed. Hypokalemia K 3.3 on admission Today K 2.8 --> 5.2 --> 2.6. Suspect lab error on 5.2. Replace with IV KCl Unable to take po. Repeat BMP in am. R facial droop Noted on 01/23. CT head with chronic senescent changes including mild volume loss and cerebral white matter chronicsmall vessel ischemic change - no acute issues. Neuro checks. Not clear on exam today. Could consider MRI, however overall prognosis is very poor overall. Elevated D DIMER Suspect related to resp issues/infection as above. CTA chest neg Cerebral palsy/schizophrenia/nonverbal Resides at detention prior to admission. At baseline, nonverbal, but walks around independently Currently very weak and would need rehab prior to return to detention. Supportive care Continue home medications DVT prophylaxis Heparin Sub Q Code status FULL CODE Parth Warren is her state appointed guardian. Critical care time spent separate from procedures of 50 minutes. This patient had a high probability of imminent or life-threatening deterioration due to severe hypokalemia/hypernatremia, which required my direct attention, intervention, and personal management. (Total time includes IDR spent on the patient, specialist discussion, nursing discussion, reviewinglabs, reviewing notes, documentation, orders, and examining the patient) LEXUS BARROSO MD 01/24/2025 8:08 AM * Azalia Galvez, PharmD - 01/24/2025 7:46 AM CDT Vancomycin Pharmacy to Dose Day #2 Ordering Provider: Otoniel Indication: pneumonia Ht/Wt: 5' 38.7 kg Initial drug level ordered: 01/24 with AM labs AUC goal: 400 - 600 Individualized trough goal: Date WBC SCr CrCl Tmax Level Comments 01/22 11.23 0.43 74.4 99.3 01/23 --- --- --- 98.2 Pharmacy consulted 01/24 10.90 0.49 65.8 98.6 8.1 Other Antibiotics: - Azithromycin 01/20 - 01/22 - Ceftriaxone 01/20 - Cultures/Tests: - 01/20 Blood: NGTD - 01/20 Resp PCR: Negative - 01/23 Resp PCR: Negative - 01/23 MRSA: Pending Kinetics Assessment (Updated 01/24): Regimen: 750 mg IV every 18 hours. Start time: 09:02 on 01/24/2025 Exposure target: AUC24 (range)400-600 mg/L.hr AUC24,ss: 457 mg/L.hr Probability of AUC24 > 400: 78 % Ctrough,ss: 12.6 mg/L Probability of Ctrough,ss > 20: 3 % Probability of nephrotoxicity (Lodise BECK 2008): 8 % A/P: Vancomycin pharmacy to dose was ordered on this 69 year old female for the indication of pneumonia.She was on azithromycin and ceftriaxone for CAP and now vancomycin is being started. PMH significant for cerebral palsy from detention. She received a loading dose of vancomycin 750 mg x1. Random level of 8.1 mcg/mL this morning. Will start patient on 750 mg q18h per kinetics above using modified Godi model given patient is an intermediate fit given low weight and renal function. No repeat level ordered at this time. MRSA nares have been ordered to assist in de-escalation. Pharmacy will continue to monitor and adjust doses as necessary. * Lexis Curiel RN - 01/23/2025 3:06 PM CDT 01/23/25 1115 Interdisciplinary Group Conference Team Members Present Physician;Case/Care management;Nursing;Pharmacy Physician present for group conference Shahida Davila Patient Current Status Paient current status Inpatient Barriers to Discharge Inpatient Review Barriers to Discharge Inpatient Other (Comment) Other follow up (Comment) treating sepsis and pneumonia, cont IV abx Patient expects to be discharged to Patient expects to be discharged to: senior living Facility( SNF) 15:55 CM received call from Esperanza at [facility] stating they can accept this patient and have a bedfor her tomorrow. 16:00 CM spoke with Sarah at [facility] who states they do not have any female beds available and none tomorrow.CM phoned Dallas at [facility] to ask if they will have a bed for this patient tomorrow, she will move patient's referral to top of [facility] and will let this CM know. * Nichole Ken PTA - 01/23/2025 3:04 PM CDT 01/23/25 1422 Therapy Visit Ordering Provider MD Otoniel Subjective Rm 457: Per RN, hold therapy as pt not medically appropiate, will be going for CT soon. Will check back at later time/date. Reason for admission DX: PNA due to infectious organism * Azalia Galvez, PharmD - 01/23/2025 2:42 PM CDT Vancomycin Pharmacy to Dose Day #1 Ordering Provider: tOoniel Indication: pneumonia Ht/Wt: 5' 38.7 kg Initial drug level ordered: 01/24 with AM labs AUC goal: 400 - 600 Individualized trough goal: Date WBC SCr CrCl Tmax Level Comments 01/22 11.23 0.43 74.4 99.3 01/23 --- --- --- 98.2 Pharmacy consulted Other Antibiotics: - Azithromycin 01/20 - 01/22 - Ceftriaxone 01/20 - Cultures/Tests: - 01/20 Blood: NGTD - 01/20 Resp PCR: Negative - MRSA: Kinetics Assessment: TBD A/P: Vancomycin pharmacy to dose was ordered on this 69 year old female for the indication of pneumonia.She was on azithromycin and ceftriaxone for CAP and now vancomycin is being started. PMH significant for cerebral palsy from detention. She received a loading dose of vancomycin 750 mg x1. Given patient age and weight, will order random level for 01/24 with AM labs and no further doses at this time. Pharmacy will continue to monitor and adjust doses as necessary. * Ceci Rosas RN - 01/23/2025 11:56 AM CDT Problem: Discharge Planning Goal: Knowledge of discharge instructions Outcome: Progressing Problem: Pain control/comfort Goal: Promote pain control/comfort Outcome: Met This Shift Problem: Skin integrity, Impaired-wound Goal: Absence of new skin breakdown Outcome: Met This Shift Problem: Skin integrity, Impaired-pressure injury/ulcer Goal: Absence of new skin breakdown Outcome: Met This Shift Problem: Skin integrity, at risk Goal: Absence of new skin breakdown Outcome: Met This Shift Problem: Moisture associated skin impairment Goal: Reduce moisture exposure Outcome: Met This Shift Goal: Absence of new skin breakdown Outcome: Met This Shift Problem: Reduced risk for falls/injury Goal: Reduced Risk for Falls/Injury Outcome: Met This Shift Goal: Reduced Risk of Confusion (Acute vs Chronic) Outcome: Met This Shift Goal: Reduced Risk of Symptomatic Depression Outcome: Met This Shift Goal: Reduced Risk of Altered Elimination Outcome: Met This Shift Goal: Reduced Risk of Dizziness/Vertigo/Balance Outcome: Met This Shift Goal: Reduced Risk of Polypharmacy Outcome: Met This Shift * Shahida Davila MD - 01/23/2025 11:29 AM CDT Hospitalist Daily Progress Note Subjective Patient still weak, encephalopathic this AM, on 2L O@ NC, this afternoon patient noted to be less responsive, requiring increased O2 and with poor air movement and R facial droop. Objective Filed Vitals: 01/23/25 0005 01/23/25 0349 01/23/25 0718 01/23/25 1117 BP: (!) 141/90 (!) 144/81 (!) 140/86 (!) 163/87 Pulse: 83 88 74 Resp: 16 19 Temp: 97.7 ??F (36.5 ??C) 98.2 ??F (36.8 ??C) 97.7 ??F (36.5 ??C) TempSrc: Axillary Axillary Oral SpO2: 93% 90% 100% Weight: 38.7 kg (85 lb 5.1 oz) Height: Intake/Output 24H Total: Intake/Output Summary (Last 24 hours) at 01/23/2025 1129 Last data filed at 01/22/2025 1709 Gross per 24 hour Intake 120 ml Output -- Net 120 ml Physical Exam: -GENERAL: mod resp distres, thin -HEAD: Normocephalic, Atraumatic -EYES: Extraocular movements intact -LUNGS: poo r air movement -CVS: Regular rate and rhythm, S1 and S2 normal -ABDOMEN: Soft, Non tender, Non distended -EXT: No edema -NEURO: non verbal, fatigued, R facial droop -SKIN: No significant rashes Medications cefTRIAXone 1 g Intravenous Q24H clomiPRAMINE 25 mg Oral Daily And clomiPRAMINE 50 mg Oral Nightly at bedtime heparin (porcine) 5,000 Units Subcutaneous 2 times per day metoprolol tartrate 25 mg Oral BID pantoprazole EC 40 mg Oral Daily risperiDONE 1 mg Oral BID And risperiDONE 0.5 mg Oral Nightly at bedtime sodium chloride 1 g Oral Daily solifenacin succinate 10 mg Oral Daily vitamin D3 2,000 Units Oral Daily bisacodyl EC, fluticasone propionate Labs, Imaging, Other Studies Recent Labs Lab 01/20/25 1106 01/22/25 0649 WBC 6.86 11.23* RBC 4.35 4.07* HGB 12.3 11.5* HCT 38.9 37.5* MCV 89.4 92.1 MCH 28.3 28.3 MCHC 31.6* 30.7* PLT 271 225 RDW 13.2 13.7 MPV 10.2 10.7 PERNEU 72.0 -- PERLYM 18.1 -- PERMON 9.8 -- NEUC 4.94 10.56* LYMC 1.24 0.22* MONOC 0.67 0.22* EOSC 0.00* -- BASOC 0.00* -- DTYPE AUTOMATED DIFFERENTIAL MANUAL DIFFERENTIAL Recent Labs Lab 01/20/25 1106 01/22/25 0649 NA 139 147* K 3.3* 3.7 CL 99 110 CO2 40.5* 33.2* AGAP NOT CALCULATED 3.8 BUN 6* 15 CR 0.52* 0.43* BUNCREATININ 11.6 34.6* GLU 111* 99 CA 8.8 9.0 TP 7.5 7.8 ALB 2.6* 2.3* TBIL 0.3 0.6 ALKP 101 92 AST 16 26 ALT 26 32 No results for input(s): CHOL , TRI , HDL , LDL , HGBA1C , TSH in the last 168 hours. No results for input(s): APTT , INR , PTT in the last 168 hours. Recent Labs Lab 01/20/25 1106 TROP 7 Recent Labs Lab 01/20/25 1339 LACTICACID 1.9 Recent Labs Lab 01/20/25 1445 PH 7.39 PCO2 68.0* PO2 122.0* [id number] 99* BICARBWB 41.2* BASEEXCESS 13.1* No results found. However, due to the size of the patient record, not all encounters were searched.Please check Results Review for a complete set of results. Imaging CTA CHEST PE PROTOCOL Result Date: 01/20/2025 [facility] [address] [place], [place] [address] EXAMINATION: CTA CHEST WITH CONTRAST, PULMONARY EMBOLISM CLINICAL HISTORY: Elevated d-dimer. Shortness of breath. Concern for pulmonary embolism. COMPARISON: 12/13/2024 TECHNIQUE: Computed tomography angiography was performed of the chest after administration of intravenous contrast, 84 mL Isovue-370, according to pulmonary embolism protocol. Axial, multiplanar, and 3-D/MIP images were reconstructed. A dose lowering technique was used for this procedure, which may include, but is not limited to, dose reduction technique, automated exposure control, the use of iterative reconstruction, and ALARA (As Low As Reasonably Achievable) / Image Gently techniques. Maximum intensity projection images were obtained. FINDINGS: No filling defects identified within the main pulmonary artery, right or left pulmonary artery branches, lobar pulmonary arteries, or segmental pulmonary artery branches to suggest CT evidence of pulmonary thromboembolism. Normal heart size. No pleural or pericardial effusions. No bul ky axillary, mediastinal, or hilar lymphadenopathy. Trachea is patent. Dependent secretions and/or mucous plugging noted in the left mainstem bronchus and lower lobe bronchi. Patchy bibasilar opacities. No suspicious lung mass. No pneumothorax. Imaged portions of the upper abdomen reveal and sludgeor stones of the gallbladder. Colonic diverticulosis. Osseous structures reveal degenerative changes in the spine. IMPRESSION: 1. No CT evidence of pulmonary thromboembolism. 2. Dependent secretions and/or mucous plugging in the left mainstem bronchus and left lower lobe bronchi. Patchy bibasilar opacities could be due to atelectasis or infection. 3. Please see above for additional chronic, incidental, and nonem ergent findings elsewhere. Referred By: Interpreted By: Vincent Marcus MD, 01/20/2025 2:[address] HEAD WO CON Result Date: 01/20/2025 [facility] [address], [place] [address] CT HEADWITHOUT CONTRAST Exam date: 01/20/2025 12:28 PM Clinical history: Weakness Technique: 3 mm collimatedaxial images of the head were obtained without contrast. A dose lowering technique was used for this procedure, which may include, but is not limited to, dose reduction technique, automated exposure control, the use of iterative reconstruction, and ALARA (As Low As Reasonably Achievable) / Image Gently techniques. Comparison: reviewed without prior studies available for comparison. FINDINGS: Images of the head demonstrate no evidence of acute or chronic intracranial hemorrhage. No masses or mass effects are seen. The ventricles and sulci are symmetric. There is no evidence of midline shift. Mild small vessel ischemic changes are noted in the periventricular white matter. No extra-axial fluid collections are noted. The basilar cisterns are widely patent Bone windows reveal the paranasal sinuses and mastoid air cells to appear clear. There is no evidence of fracture. 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1955 Requested By: MORIAH LORENZO Order Number: [id number] Reading MD: Chevy Dodson Measurements Intervals [place] Rate: 85 P: 17 [place]: 149 QRS: -26 QRSD: 91 T: 30 QT: 293 QTc: 349 Interpretive Statements SINUS RHYTHM VOLTAGE CRITERIA FOR LVH [MEETS CRITERIA IN ONE OF: R(aVL), S(V1), R(V5), R(V5/V6)+S(V1)] POSSIBLE SEPTAL MYOCARDIAL INFARCTION [30 ms Q WAVE IN V1/V2], OF INDETERMINATE AGE Compared to ECG 04/27/2024 12:57:46 Left-axis deviation no longer present Myocardial infarct finding still present E PAVER XR CHEST PA+LAT Result Date: 01/20/2025 [facility] [address], [place] [address] Examination: Chest x-ray 2 view Exam Date/Time: 01/20/2025 11:25 AM Reason For Exam: acute sob x today while eating Comparison: Chest radiograph 12/13/2024 Technique: PA and lateral viewsof the chest were obtained. Findings: Asymmetric volume loss in the right hemithorax similar to prior study with rightward tilting of the patient. No large effusion. No pneumothorax. Heart size stable. No consolidation. Pulmonary vasculature upper limits normal. Minimal infiltrate or atelectasis inthe right lung base similar to the prior study. No new infiltrates or consolidative changes. ======= = IMPRESSION: ======== 1. 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1955 Requested By: MORIAH LORENZO Order Number: [id number] Reading MD: Chevy Dodson Measurements Intervals [place] Rate: 85 P: 17 [place]: 149 QRS: -26 QRSD: 91 T: 30 QT: 293 QTc: 349 Interpretive Statements SINUS RHYTHM VOLTAGE CRITERIA FOR LVH [MEETS CRITERIA IN ONE OF: R(aVL), S(V1), R(V5), R(V5/V6)+S(V1)] POSSIBLE SEPTAL MYOCARDIAL INFARCTION [30 ms Q WAVE IN V1/V2], OF INDETERMINATE AGE Compared to ECG 04/27/2024 12:57:46 Left-axis deviation no longer present Myocardial infarct finding still present E PAVER Assessment & Plan Community-acquired pneumonia No signs of sepsis Dependent secretions with mucous plugging in the left main bronchus and left lower lobe bronchi with patchy bibasilar opacities Check PCT Respiratory PCR negative IV antibiotics with azithromycin and Rocephin O2 supplementation as needed. Was noted to have low oxygen saturations in the detention. She was 94% on room air when she arrived to the emergency department. Monitor O2 saturations closely. -01/21 off O2 intermittently when she pulls it off her face -continue antibiotics -01/22 still tachycardic , O2 requirement -01/23 this afternoon rising O@ requirment, poor air movement, CXR with increasing infiltrates on R side, CT chest ordered and ABG, Broadened PNA coverage with vancomycin -pulmonology consulted -CPAP/optiflow ordered -resp cx -viral panel R facial droop -CT head ordered Elevated D DIMER Negative CTA of chest Check venous dopplers Cerebral palsy/schizophrenia/nonverbal Supportive care Continue home medications -per facility at baseline she is non verbal, but walks around independently - DVT prophylaxis: Heparin Sub Q - Code status:FULL CODE - Disposition: inpatient Plan of care discussed with nurse, case work aide. Shahida Davila MD * Lexis Curiel RN - 01/23/2025 10:21 AM CDT 09:06 SHERWIN spoke with Jud at [facility] who states they do not have any beds and do not have any Medicaid beds either at their [place] [facility]. SHERWIN checked the [employer] website for PASRR results, patient result is convalescence categorical. 10:14 SHERWIN spoke with Tisha at [facility], she is aware that patient has not met the 3 midnight rule tomeet rehab with Medicare and would be coming to SNF using her Medicaid. Tisha states they can accept this patient at [facility] [place], [place] and [facility]. SHERWIN informed Tisha that this CM will ask MD if patient medically ready today and will reach out to her guardian for placement choice. SHERWIN sent doc halo to Dr Davila asking if this patient is medically ready for dc this date. 12:56 This CM phoned Parth Warren, patient's legal guardian to ask about SNF placement and that [facility] and [facility] all have neds, left return number to call with choice. 13:38 CM received call from Parth Kelvin stating that he does not want patient to go to any [facility] locations and requests referrals be sent to : [facility] in [place]. * Tania Mcintosh RN - 01/23/2025 5:40 AM CDT Problem: Discharge Planning Goal: Knowledge of discharge instructions Outcome: Progressing Problem: Pain control/comfort Goal: Promote pain control/comfort Outcome: Progressing Problem: Skin integrity, Impaired-wound Goal: Absence of new skin breakdown Outcome: Progressing Problem: Reduced risk for falls/injury Goal: Reduced Risk for Falls/Injury Outcome: Progressing Goal: Reduced Risk of Confusion (Acute vs Chronic) Outcome: Progressing Goal: Reduced Risk of Symptomatic Depression Outcome: Progressing Goal: Reduced Risk of Altered Elimination Outcome: Progressing Goal: Reduced Risk of Dizziness/Vertigo/Balance Outcome: Progressing Goal: Reduced Risk of Polypharmacy Outcome: Progressing * Nurse Sam Umanzor II - 01/22/2025 4:24 PM CDT Problem: Discharge Planning Goal: Knowledge of discharge instructions Outcome: Progressing Problem: Pain control/comfort Goal: Promote pain control/comfort Outcome: Progressing Problem: Skin integrity, Impaired-wound Goal: Absence of new skin breakdown Outcome: Progressing Problem: Skin integrity, Impaired-pressure injury/ulcer Goal: Absence of new skin breakdown Outcome: Progressing Problem: Skin integrity, at risk Goal: Absence of new skin breakdown Outcome: Progressing Problem: Moisture associated skin impairment Goal: Reduce moisture exposure Outcome: Progressing Goal: Absence of new skin breakdown Outcome: Progressing Problem: Reduced risk for falls/injury Goal: Reduced Risk for Falls/Injury Outcome: Progressing Goal: Reduced Risk of Confusion (Acute vs Chronic) Outcome: Progressing Goal: Reduced Risk of Symptomatic Depression Outcome: Progressing Goal: Reduced Risk of Altered Elimination Outcome: Progressing Goal: Reduced Risk of Dizziness/Vertigo/Balance Outcome: Progressing Goal: Reduced Risk of Polypharmacy Outcome: Progressing Problem: Mobility Goal: STG - Pt will ambulate Description: The patient will progress during gait training to ambulating 100'- 150'x1 trial w/FWW requiring min assist x 1. Outcome: Progressing Problem: Misc. Goal: PT Misc 1 Description: The patient will increase all transfers to min/SBA. Outcome: Progressing Cosigned by Lexis Harmon RN at 01/24/2025 8:10 AM CDT * Bipin Torres, PT - 01/22/2025 3:58 PM CDT 01/22/25 1300 Therapy Visit Ordering Provider MD Otoniel PT Received On 01/22/25 PT Evaluation Completed on 01/22/25 Treatment Day 1 Subjective Rm [id number] PT orders received w/EMR reviewed. PT evaluation OK'd per nsg. Reason for admission DX: PNA due to infectious organism Relevant Comorbidities/ Personal Factors to PT PMHX: Vitamin D deficiency, hypokalemia, anxiety, schizophrenia, GERD, HTN, bladder disorder, CP, patient is nonverbal Verified Two Patient Identifiers Yes (via [employer]) Patient consents to therapy Yes Acute Inpatient PT Time Calculation PT Start Time 1349 PT Stop Time 1408 PT Time Calculation (min) 19 min Precautions Weight Bearing Status Full weight bearing General Precautions Fall Risk;Bed Alarm;Chair Alarm PPE Used Face mask;Gloves Instructed on Precautions Yes;Needs reinforcement and education Skin Integrity intact Home Living Type of Home Skilled Nursing Home Layout One level Home Accessibility 0 Steps to enter Home Living Comments patient is nonverbal at baseline Prior Function Level of [place] Independent with functional transfers;Independent with ambulation;Needs assistance with ADLs;Needs assistance with homemaking Device used at baseline (unclear, possible FWW) Baseline Ambulation Distance/Assistance household Fall History (unknown as the patient is nonverbal at baseline) Lives With (detention residents) Receives Help From Facility staff ADL Assistance Needs assistance Homemaking Assistance Needs assistance Pain Pain Patient does not offer or c/o pain Activity Tolerance Endurance Tolerates < 10 min activity, no significant change in vital signs Endurance Quality Fair Limiting Factors to Endurance Acute deconditioning;Weakness Post Activity VS Recovery Vitals: HR = 103 BPM, O2 Saturation = 90% RA Cognition Overall Cognitive Status Impaired Arousal/Alertness ARNULFO Attention Span Difficulty attending to directions Orientation Level (unable to assess as the patient is nonverbal) Following Commands Follows one step commands inconsistently Safety Judgment ARNULFO Awareness of Errors ARNULFO Deficits Not aware of deficits Problem Solving ARNULFO RLE Assessment RLE Assessment WFL LLE Assessment LLE Assessment WFL Bed Mobility Supine to Sit Min assist to left;Mod assist to left TRANSFERS Sit to Stand Min assist Gait Gait Assistance Min assist;Assist of 2;With gait belt Assistive Device 2 Wheeled walker Distance Ambulated (ft) 60 ft Time Ambulated (min) 1 minutes Stairs Other (Comment) n/a Wheelchair Mobility Other (Comment) n/a Balance Sitting - Static Min Assist;Support of both upper extremities Sitting - Dynamic Min Assist;Support of both upper extremities Standing - Static Min Assist;Support of both upper extremities Standing - Dynamic Min Assist;Support of both upper extremities Assessment Personal Factors/Comorbidities Impacting Care 3-4 personal factors/comorbidities Examination of Body Systems Moderate (3 or more Elements) Objectives of Body Systems Impaired bed mobility;Impaired transfers;Impaired ambulation;Impaired balance Clinical Presentation of Patient Evolving and changing characteristics Complexity Level of Evaluation Moderate Prognosis Guarded PT Assess/Eval Other (Comment) The patient is a 69 year old female hospitalized due to PNA who presents with a decline in her functional mobility and functional (I). Due to her decline the patient would benefit from PT services while hospitalized and HH services upon return to her detention. Basic Mobility Turning from your back to your side while in a flat bed without using bedrails 3 (A Little) Moving from lying on your back to sitting on the side of a flat bed without using bedrails 3 (A Little) Moving to and from bed to chair (including wheelchair) 3 (A Little) Standing up from a chair using your arms (e.g. wheelchair or bedside commode 3 (A Little) To walk in hospital room 3 (A Little) Climbing 3-5 steps with railing 3 (A Little) Basic Mobility Score Score out of /24 18 Patient/Family Training Bed Mobility x Transfer Training x Gait Training x Discharge Recommendation PT Recommendation Home with assistance;Home PT (PT @ detention) PT Equipment Recommended To Be Determined Plan PT Treatments/Interventions Gait Training;Therapeutic Exercises;Therapeutic Activities;Neuromuscular re-education Progress Slow progress, medical status limitations PT Frequency 5 times/week PT plan for next session gait training, transfer training, bed mobility training If this is the last treatment note,it will serve as the discharge summary Yes End of Session End of Session Safety Bed alarm set/activated;Call light within reach;Nursing aware of session Interdisciplinary Collaboration RN * Isabel Ferrara LCSW - 01/22/2025 3:37 PM CDT SW consult received from RN. ELHAM called Nichole with [facility] [phone] to clarify what is required forpt to return to detention. Nichole stated that the pt would need to be closer to her baseline. Nichole reports that pt does not have any stairs to climb at home. SW completed PASRR, level 2 flagged for review. SW sent SNF referrals. RN will continue to follow and discharge plan as needed. * Lexis Curiel RN - 01/22/2025 1:06 PM CDT 01/22/25 1115 Interdisciplinary Group Conference Team Members Present Physician;Nursing;Case/Care management;Pharmacy Physician present for group conference Shahida Davila Patient Current Status Paient current status Inpatient Barriers to Discharge Inpatient Review Barriers to Discharge Inpatient Other (Comment) Other follow up (Comment) tachycardic, wbc slightly elevated Patient expects to be discharged to Patient expects to be discharged to: Skilled Nursing This CM phoned Nichole, nurse at patient's detention. Nichole states this patient was independent with mobility and would even move furniture at her detention. Nichole states the patient has no familyand has a state guardian. The detention should be able to transport her at [place]. CM sent doc eliana Davila as well as nurses Marlyn Harmon and Katlin Farr informing of patient's prior mobility. 14:15 This CM phoned Nichole at patient's detention and informed her that this patient is unable toambulate independently today and required assist of 2 with walker. Nichole states that this patient can not return in this level of care. 14:21 This CM left voice mail with Parth Kelvin, patient's guardian informing of the above and needing to discuss discharge placement, CM gave return number to call. 14:56 this CM received voice mail from patient's guardian Parthbibi Warren stating that he would like this patient to be able to return to her detention and would like her to get some therapy to be able to return, he states if needed, to send a referral to [facility] for rehab. CM phoned Vivian Rodrigues , steam crane operator for assistance as this patient has not met the 3 midnight Medicare rule for SNF for rehab,she is asking ELHAM Fine to assist. CM spoke with Lexus who states she will fill out PASRR and would like this CM to send referrals to SNFs, CM informed her that her guardian only gave 1-Memorialand that he is wanting patient to return to her detention. 15:53 This CM phoned patient's guardian Parth and informed that the detention states this patientcan not return in her current condition and explained the 3 midnight rule with Medicare for the patient to use her benefits for rehab.SHERWIN explained that this patient can use her Medicaid benefit,ut itwould be for placement, not rehab. Parth is wanting the patient to return to her detention and would like her to meet the 3 midnight requirement if possible. SHERWIN explained that the patient has to have a medical reason to stay and that at this time, she is being treated for Pneumonia and tachycardia, but this CM is not sure the patient will need to stay another night after this one. Parth stateshe would like this patient treated for pain as she is normally not one to sit and is very active and he believes she may be in pain. CM informed Parth that this CM will inform MD of his concerns. Parth states he would like to see how this patient is doing tomorrow, but CM can send referral to [facility] in the meantime. SHERWIN sent doc halo to Dr Davila as well as nurses Katlin Farr and Marlyn Harmon reading Patient's guardian is asking if you can give this patient something for pain, he statesthis patient is always very active and perhaps pain is keeping her in bed. He would like to try this and see if pain is the reason she is not trying to get out of bed. Thank you. * Shahida Davila MD - 01/22/2025 10:52 AM CDT Hospitalist Daily Progress Note Subjective Patient still lying in bed, fatigued and confused. Still with sinus tachycardia. Remains on O2 NC. Continue antibiotics Objective Filed Vitals: 01/21/25 1937 01/22/25 0007 01/22/25 0353 01/22/25 0740 BP: (!) 147/87 129/86 126/82 129/80 Pulse: (!) 120 (!) 103 (!) 106 (!) 101 Resp: 16 20 Temp: 98.4 ??F (36.9 ??C) 98.4 ??F (36.9 ??C) 98.6 ??F (37 ??C) 98.6 ??F (37 ??C) TempSrc: Oral Oral Axillary Axillary SpO2: 92% 95% 95% 100% Weight: 39 kg (85 lb 15.7 oz) Height: Intake/Output 24H Total: Intake/Output Summary (Last 24 hours) at 01/22/2025 1052 Last data filed at 01/22/2025 0353 Gross per 24 hour Intake 150 ml Output 400 ml Net -250 ml Physical Exam: -GENERAL: No acute distress, Well nourished -HEAD: Normocephalic, Atraumatic -EYES: Extraocular movements intact -LUNGS: Effort normal, Clear to auscultation bilaterally, No wheezes, No crackles, No ronchi -CVS: tachycardia -ABDOMEN: Soft, Non tender, Non distended -EXT: No edema -NEURO: encephalopathic -SKIN: No significant rashes Medications azithromycin 500 mg Intravenous Q24H cefTRIAXone 1 g Intravenous Q24H clomiPRAMINE 25 mg Oral Daily And clomiPRAMINE 50 mg Oral Nightly at bedtime heparin (porcine) 5,000 Units Subcutaneous 2 times per day metoprolol tartrate 25 mg Oral BID pantoprazole EC 40 mg Oral Daily risperiDONE 1 mg Oral BID And risperiDONE 0.5 mg Oral Nightly at bedtime sodium chloride 1 g Oral Daily solifenacin succinate 10 mg Oral Daily vitamin D3 2,000 Units Oral Daily bisacodyl EC, fluticasone propionate Labs, Imaging, Other Studies Recent Labs Lab 01/20/25 1106 01/22/25 0649 WBC 6.86 11.23* RBC 4.35 4.07* HGB 12.3 11.5* HCT 38.9 37.5* MCV 89.4 92.1 MCH 28.3 28.3 MCHC 31.6* 30.7* PLT 271 225 RDW 13.2 13.7 MPV 10.2 10.7 PERNEU 72.0 -- PERLYM 18.1 -- PERMON 9.8 -- NEUC 4.94 10.56* LYMC 1.24 0.22* MONOC 0.67 0.22* EOSC 0.00* -- BASOC 0.00* -- DTYPE AUTOMATED DIFFERENTIAL MANUAL DIFFERENTIAL Recent Labs Lab 01/20/25 1106 01/22/25 0649 NA 139 147* K 3.3* 3.7 CL 99 110 CO2 40.5* 33.2* AGAP NOT CALCULATED 3.8 BUN 6* 15 CR 0.52* 0.43* BUNCREATININ 11.6 34.6* GLU 111* 99 CA 8.8 9.0 TP 7.5 7.8 ALB 2.6* 2.3* TBIL 0.3 0.6 ALKP 101 92 AST 16 26 ALT 26 32 No results for input(s): CHOL , TRI , HDL , LDL , HGBA1C , TSH in the last 168 hours. No results for input(s): APTT , INR , PTT in the last 168 hours. Recent Labs Lab 01/20/25 1106 TROP 7 Recent Labs Lab 01/20/25 1339 LACTICACID 1.9 Recent Labs Lab 01/20/25 1445 PH 7.39 PCO2 68.0* PO2 122.0* [id number] 99* BICARBWB 41.2* BASEEXCESS 13.1* No results found. However, due to the size of the patient record, not all encounters were searched.Please check Results Review for a complete set of results. Imaging CTA CHEST PE PROTOCOL Result Date: 01/20/2025 [facility] [address] [place], [place] [address] EXAMINATION: CTA CHEST WITH CONTRAST, PULMONARY EMBOLISM CLINICAL HISTORY: Elevated d-dimer. Shortness of breath. Concern for pulmonary embolism. COMPARISON: 12/13/2024 TECHNIQUE: Computed tomography angiography was performed of the chest after administration of intravenous contrast, 84 mL Isovue-370, according to pulmonary embolism protocol. Axial, multiplanar, and 3-D/MIP images were reconstructed. A dose lowering technique was used for this procedure, which may include, but is not limited to, dose reduction technique, automated exposure control, the use of iterative reconstruction, and ALARA (As Low As Reasonably Achievable) / Image Gently techniques. Maximum intensity projection images were obtained. FINDINGS: No filling defects identified within the main pulmonary artery, right or left pulmonary artery branches, lobar pulmonary arteries, or segmental pulmonary artery branches to suggest CT evidence of pulmonary thromboembolism. Normal heart size. No pleural or pericardial effusions. No bul ky axillary, mediastinal, or hilar lymphadenopathy. Trachea is patent. Dependent secretions and/or mucous plugging noted in the left mainstem bronchus and lower lobe bronchi. Patchy bibasilar opacities. No suspicious lung mass. No pneumothorax. Imaged portions of the upper abdomen reveal and sludgeor stones of the gallbladder. Colonic diverticulosis. Osseous structures reveal degenerative changes in the spine. IMPRESSION: 1. No CT evidence of pulmonary thromboembolism. 2. Dependent secretions and/or mucous plugging in the left mainstem bronchus and left lower lobe bronchi. Patchy bibasilar opacities could be due to atelectasis or infection. 3. Please see above for additional chronic, incidental, and nonem ergent findings elsewhere. Referred By: Interpreted By: Vincent Marcus MD, 01/20/2025 2:[address] HEAD WO CON Result Date: 01/20/[address] [address] [address] HEADWITHOUT CONTRAST Exam date: 01/20/2025 12:28 PM Clinical history: Weakness Technique: 3 mm collimatedaxial images of the head were obtained without contrast. A dose lowering technique was used for this procedure, which may include, but is not limited to, dose reduction technique, automated exposure control, the use of iterative reconstruction, and ALARA (As Low As Reasonably Achievable) / Image Gently techniques. Comparison: reviewed without prior studies available for comparison. FINDINGS: Images of the head demonstrate no evidence of acute or chronic intracranial hemorrhage. No masses or mass effects are seen. The ventricles and sulci are symmetric. There is no evidence of midline shift. Mild small vessel ischemic changes are noted in the periventricular white matter. No extra-axial fluid collections are noted. The basilar cisterns are widely patent Bone windows reveal the paranasal sinuses and mastoid air cells to appear clear. There is no evidence of fracture. 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1955 Requested By: MORIAH LORENZO Order Number: [id number] Reading MD: Chevy Dodson Measurements Intervals [place] Rate: 85 P: 17 [place]: 149 QRS: -26 QRSD: 91 T: 30 QT: 293 QTc: 349 Interpretive Statements SINUS RHYTHM VOLTAGE CRITERIA FOR LVH [MEETS CRITERIA IN ONE OF: R(aVL), S(V1), R(V5), R(V5/V6)+S(V1)] POSSIBLE SEPTAL MYOCARDIAL INFARCTION [30 ms Q WAVE IN V1/V2], OF INDETERMINATE AGE Compared to ECG 04/27/2024 12:57:46 Left-axis deviation no longer present Myocardial infarct finding still present E PAVER XR CHEST PA+LAT Result Date: 01/20/[address] [address] Examination: Chest x-ray 2 view Exam Date/Time: 01/20/2025 11:25 AM Reason For Exam: acute sob x today while eating Comparison: Chest radiograph 12/13/2024 Technique: PA and lateral viewsof the chest were obtained. Findings: Asymmetric volume loss in the right hemithorax similar to prior study with rightward tilting of the patient. No large effusion. No pneumothorax. Heart size stable. No consolidation. Pulmonary vasculature upper limits normal. Minimal infiltrate or atelectasis inthe right lung base similar to the prior study. No new infiltrates or consolidative changes. ======= = IMPRESSION: ======== 1. 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1955 Requested By: MORIAH LORENZO Order Number: [id number] Reading MD: Chevy Dodson Measurements Intervals [place] Rate: 85 P: 17 [place]: 149 QRS: -26 QRSD: 91 T: 30 QT: 293 QTc: 349 Interpretive Statements SINUS RHYTHM VOLTAGE CRITERIA FOR LVH [MEETS CRITERIA IN ONE OF: R(aVL), S(V1), R(V5), R(V5/V6)+S(V1)] POSSIBLE SEPTAL MYOCARDIAL INFARCTION [30 ms Q WAVE IN V1/V2], OF INDETERMINATE AGE Compared to ECG 04/27/2024 12:57:46 Left-axis deviation no longer present Myocardial infarct finding still present E PAVER Assessment & Plan Community-acquired pneumonia No signs of sepsis Dependent secretions with mucous plugging in the left main bronchus and left lower lobe bronchi with patchy bibasilar opacities Check PCT Respiratory PCR negative IV antibiotics with azithromycin and Rocephin O2 supplementation as needed. Was noted to have low oxygen saturations in the detention. She was 94% on room air when she arrived to the emergency department. Monitor O2 saturations closely. -01/21 off O2 intermittently when she pulls it off her face -continue antibiotics -01/22 still tachycardic , O2 requirement Elevated D DIMER Negative CTA of chest Check venous dopplers Cerebral palsy/schizophrenia/nonverbal Supportive care Continue home medications - DVT prophylaxis: Heparin Sub Q - Code status:FULL CODE - Disposition: inpatient Plan of care discussed with nurse, case work aide. Shahida Davila MD * Carlee Urrutia RN - 01/22/2025 2:41 AM CDT Problem: Discharge Planning Goal: Knowledge of discharge instructions 01/22/2025239 by Carlee Urrutia RN Outcome: Progressing 01/22/2025239 by Carlee Urrutia RN Outcome: Progressing Problem: Pain control/comfort Goal: Promote pain control/comfort 01/22/2025239 by Carlee Urrutia RN Outcome: Progressing 01/22/2025239 by Carlee Urrutia RN Outcome: Progressing Problem: Skin integrity, Impaired-wound Goal: Absence of new skin breakdown 01/22/2025239 by Carlee S Dinney, RN Outcome: Progressing 01/22/2025 0240 by Carlee Urrutia, RN Outcome: Progressing Problem: Skin integrity, Impaired-pressure injury/ulcer Goal: Absence of new skin breakdown 01/22/2025 024 by Carlee Urrutia, RN Outcome: Progressing 01/22/2025 024 by Carlee Urrutia, RN Outcome: Progressing Problem: Skin integrity, at risk Goal: Absence of new skin breakdown 01/22/2025 024 by Carlee Urrutia, RN Outcome: Progressing 01/22/2025 0240 by Carlee Urrutia, RN Outcome: Progressing Problem: Moisture associated skin impairment Goal: Reduce moisture exposure 01/22/2025 024 by Carlee Urrutia, RN Outcome: Progressing 01/22/2025 024 by Carlee Urrutia, RN Outcome: Progressing Goal: Absence of new skin breakdown 01/22/2025 024 by Carlee Urrutia, RN Outcome: Progressing 01/22/2025 024 by Carlee Urrutia, RN Outcome: Progressing Problem: Reduced risk for falls/injury Goal: Reduced Risk for Falls/Injury 01/22/2025 024 by Carlee Urrutia, RN Outcome: Progressing 01/22/2025 024 by Carlee Urrutia, RN Outcome: Progressing Goal: Reduced Risk of Confusion (Acute vs Chronic) 01/22/2025 024 by Carlee Urrutia, RN Outcome: Progressing 01/22/2025 024 by Carlee Urrutia, RN Outcome: Progressing Goal: Reduced Risk of Symptomatic Depression 01/22/2025 024 by Carlee Urrutia, RN Outcome: Progressing 01/22/2025 024 by Carlee Urrutia, RN Outcome: Progressing Goal: Reduced Risk of Altered Elimination 01/22/2025 0240 by Carlee Urrutia, RN Outcome: Progressing 01/22/2025 024 by Carlee Urrutia, RN Outcome: Progressing Goal: Reduced Risk of Dizziness/Vertigo/Balance 01/22/2025 024 by Carlee Urrutia, RN Outcome: Progressing 01/22/2025 024 by Carlee Urrutia, RN Outcome: Progressing Goal: Reduced Risk of Polypharmacy 01/22/2025 024 by Carlee Urrutia, RN Outcome: Progressing 01/22/2025 0240 by Carlee Urrutia RN Outcome: Progressing * Srinivasan Aquino Nurse Shoe Handler II - 01/21/2025 5:57 PM CDT Problem: Discharge Planning Goal: Knowledge of discharge instructions Outcome: Progressing Problem: Pain control/comfort Goal: Promote pain control/comfort Outcome: Progressing Problem: Skin integrity, Impaired-wound Goal: Absence of new skin breakdown Outcome: Progressing Problem: Skin integrity, Impaired-pressure injury/ulcer Goal: Absence of new skin breakdown Outcome: Progressing Problem: Skin integrity, at risk Goal: Absence of new skin breakdown Outcome: Progressing Problem: Moisture associated skin impairment Goal: Reduce moisture exposure Outcome: Progressing Goal: Absence of new skin breakdown Outcome: Progressing Problem: Reduced risk for falls/injury Goal: Reduced Risk for Falls/Injury Outcome: Progressing Goal: Reduced Risk of Confusion (Acute vs Chronic) Outcome: Progressing Goal: Reduced Risk of Symptomatic Depression Outcome: Progressing Goal: Reduced Risk of Altered Elimination Outcome: Progressing Goal: Reduced Risk of Dizziness/Vertigo/Balance Outcome: Progressing Goal: Reduced Risk of Polypharmacy Outcome: Progressing Cosigned by Lexis Harmon RN at 01/22/2025 7:54 AM CDT * Shahida Davila MD - 01/21/2025 2:13 PM CDT Hospitalist Daily Progress Note Subjective Patient resting in bed, pulling off O2 and IV's , tolerating PO diet. Objective Filed Vitals: 01/20/25 2311 01/21/25 0435 01/21/25 0727 01/21/25 1129 BP: 104/73 117/71 131/83 139/77 Pulse: 94 (!) 107 (!) 111 (!) 108 Resp: 22 16 24 Temp: 98.2 ??F (36.8 ??C) 99 ??F (37.2 ??C) 98.2 ??F (36.8 ??C) 98.4 ??F (36.9 ??C) TempSrc: Oral Oral Oral SpO2: 95% 97% 94% 94% Weight: 42.4 kg (93 lb 7.6 oz) Height: Intake/Output 24H Total: Intake/Output Summary (Last 24 hours) at 01/21/2025 1413 Last data filed at 01/21/2025 0851 Gross per 24 hour Intake 480 ml Output 900 ml Net -420 ml Physical Exam: -GENERAL: No acute distress, Well nourished -HEAD: Normocephalic, Atraumatic -EYES: Extraocular movements intact -LUNGS: Effort normal, Clear to auscultation bilaterally, No wheezes, No crackles, No ronchi -CVS: Regular rate and rhythm, S1 and S2 normal -ABDOMEN: Soft, Non tender, Non distended -EXT: No edema -NEURO: Awake, alert, baseline neuro state -SKIN: No significant rashes Medications clomiPRAMINE 25 mg Oral Daily And clomiPRAMINE 50 mg Oral Nightly at bedtime heparin (porcine) 5,000 Units Subcutaneous 2 times per day metoprolol tartrate 25 mg Oral BID pantoprazole EC 40 mg Oral Daily risperiDONE 1 mg Oral BID And risperiDONE 0.5 mg Oral Nightly at bedtime sodium chloride 1 g Oral Daily solifenacin succinate 10 mg Oral Daily vitamin D3 2,000 Units Oral Daily bisacodyl EC, fluticasone propionate Labs, Imaging, Other Studies Recent Labs Lab 01/20/25 1106 WBC 6.86 RBC 4.35 HGB 12.3 HCT 38.9 MCV 89.4 MCH 28.3 MCHC 31.6* PLT 271 RDW 13.2 MPV 10.2 PERNEU 72.0 PERLYM 18.1 PERMON 9.8 NEUC 4.94 LYMC 1.24 MONOC 0.67 EOSC 0.00* BASOC 0.00* DTYPE AUTOMATED DIFFERENTIAL Recent Labs Lab 01/20/25 1106 NA 139 K 3.3* CL 99 CO2 40.5* AGAP NOT CALCULATED BUN 6* CR 0.52* BUNCREATININ 11.6 GLU 111* CA 8.8 TP 7.5 ALB 2.6* TBIL 0.3 ALKP 101 AST 16 ALT 26 No results for input(s): CHOL , TRI , HDL , LDL , HGBA1C , TSH in the last 168 hours. No results for input(s): APTT , INR , PTT in the last 168 hours. Recent Labs Lab 01/20/25 1106 TROP 7 Recent Labs Lab 01/20/25 1339 LACTICACID 1.9 Recent Labs Lab 01/20/25 1445 PH 7.39 PCO2 68.0* PO2 122.0* [id number] 99* BICARBWB 41.2* BASEEXCESS 13.1* No results found. However, due to the size of the patient record, not all encounters were searched.Please check Results Review for a complete set of results. Imaging CTA CHEST PE PROTOCOL Result Date: 01/20/2025 [place] [address] EXAMINATION: CTA CHEST WITH CONTRAST, PULMONARY EMBOLISM CLINICAL HISTORY: Elevated d-dimer. Shortness of breath. Concern for pulmonary embolism. COMPARISON: 12/13/2024 TECHNIQUE: Computed tomography angiography was performed of the chest after administration of intravenous contrast, 84 mL Isovue-370, according to pulmonary embolism protocol. Axial, multiplanar, and 3-D/MIP images were reconstructed. A dose lowering technique was used for this procedure, which may include, but is not limited to, dose reduction technique, automated exposure control, the use of iterative reconstruction, and ALARA (As Low As Reasonably Achievable) / Image Gently techniques. Maximum intensity projection images were obtained. FINDINGS: No filling defects identified within the main pulmonary artery, right or left pulmonary artery branches, lobar pulmonary arteries, or segmental pulmonary artery branches to suggest CT evidence of pulmonary thromboembolism. Normal heart size. No pleural or pericardial effusions. No bul ky axillary, mediastinal, or hilar lymphadenopathy. Trachea is patent. Dependent secretions and/or mucous plugging noted in the left mainstem bronchus and lower lobe bronchi. Patchy bibasilar opacities. No suspicious lung mass. No pneumothorax. Imaged portions of the upper abdomen reveal and sludgeor stones of the gallbladder. Colonic diverticulosis. Osseous structures reveal degenerative changes in the spine. IMPRESSION: 1. No CT evidence of pulmonary thromboembolism. 2. Dependent secretions and/or mucous plugging in the left mainstem bronchus and left lower lobe bronchi. Patchy bibasilar opacities could be due to atelectasis or infection. 3. Please see above for additional chronic, incidental, and nonem ergent findings elsewhere. Referred By: Interpreted By: Vincent Marcus MD, 01/20/2025 2:[address] HEAD WO CON Result Date: 01/20/[address] [address] [address] HEADWITHOUT CONTRAST Exam date: 01/20/2025 12:28 PM Clinical history: Weakness Technique: 3 mm collimatedaxial images of the head were obtained without contrast. A dose lowering technique was used for this procedure, which may include, but is not limited to, dose reduction technique, automated exposure control, the use of iterative reconstruction, and ALARA (As Low As Reasonably Achievable) / Image Gently techniques. Comparison: reviewed without prior studies available for comparison. FINDINGS: Images of the head demonstrate no evidence of acute or chronic intracranial hemorrhage. No masses or mass effects are seen. The ventricles and sulci are symmetric. There is no evidence of midline shift. Mild small vessel ischemic changes are noted in the periventricular white matter. No extra-axial fluid collections are noted. The basilar cisterns are widely patent Bone windows reveal the paranasal sinuses and mastoid air cells to appear clear. There is no evidence of fracture. 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[id number] By: MORIAH LORENZO Order Number: [id number] Reading MD: Chevy Dodson Measurements Intervals [place] Rate: 85 P: 17 [place]: 149 QRS: -26 QRSD: 91 T: 30 QT: 293 QTc: 349 Interpretive Statements SINUS RHYTHM VOLTAGE CRITERIA FOR LVH [MEETS CRITERIA IN ONE OF: R(aVL), S(V1), R(V5), R(V5/V6)+S(V1)]POSSIBLE SEPTAL MYOCARDIAL INFARCTION [30 ms Q WAVE IN V1/V2], OF INDETERMINATE AGE Compared to ECG04/27/2024 12:57:46 Left-axis deviation no longer present Myocardial infarct finding still present E lectronically signed by Chevy Dodson at 01-20-2025 12:29:10 STONE PAVER XR CHEST PA+LAT Result Date: 01/20/[address] [address] Examination: Chest x-ray 2 view Exam Date/Time: 01/20/2025 11:25 AM Reason For Exam: acute sob x today while eating Comparison: Chest radiograph 12/13/2024 Technique: PA and lateral viewsof the chest were obtained. Findings: Asymmetric volume loss in the right hemithorax similar to prior study with rightward tilting of the patient. No large effusion. No pneumothorax. Heart size stable. No consolidation. Pulmonary vasculature upper limits normal. Minimal infiltrate or atelectasis inthe right lung base similar to the prior study. No new infiltrates or consolidative changes. ======= = IMPRESSION: ======== 1. 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[id number] Requested By: MORIAH LORENZO Order Number: [id number] Reading MD: Chevy Dodson Measurements Intervals [place] Rate: 85 P: 17 [place]: 149 QRS: -26 QRSD: 91 T: 30 QT: 293 QTc: 349 Interpretive Statements SINUS RHYTHM VOLTAGE CRITERIA FOR LVH [MEETS CRITERIA IN ONE OF: R(aVL), S(V1), R(V5), R(V5/V6)+S(V1)] POSSIBLE SEPTAL MYOCARDIAL INFARCTION [30 ms Q WAVE IN V1/V2], OF INDETERMINATE AGE Compared to ECG 04/27/2024 12:57:46 Left-axis deviation no longer present Myocardial infarct finding still present E PAVER Assessment & Plan Community-acquired pneumonia No signs of sepsis Dependent secretions with mucous plugging in the left main bronchus and left lower lobe bronchi with patchy bibasilar opacities Check PCT Respiratory PCR negative IV antibiotics with azithromycin and Rocephin O2 supplementation as needed. Was noted to have low oxygen saturations in the detention. She was 94% on room air when she arrived to the emergency department. Monitor O2 saturations closely. -/ off O2 intermittently when she pulls it off her face -continue antibiotics Elevated D DIMER Negative CTA of chest Check venous dopplers Cerebral palsy/schizophrenia/nonverbal Supportive care Continue home medications - DVT prophylaxis: Heparin Sub Q - Code status:FULL CODE - Disposition: inpatient Plan of care discussed with nurse, case work aide. Shahida Davila MD * [place] Daniel RPH - 01/21/2025 1:18 PM CDT Risk stratification per VTE protocol Risk stratified to Moderate Heparin SQ doses added per protocol * Vic Hensley RN - 01/21/2025 12:37 PM CDT MATY performed telephone interview with Nichole castillo with [facility] [phone], Pt name, verified. ? Home: resides for past month at [facility] detention at [address] [facility] Ambulation: Reports independent prior to admission. DME products: none ADLs: Reports independent prior to admission. Transport Home: facility-call Nichole A/O: and nonverbal at baseline Communication: Non verbal at baseline Address: chart corrected Pharmacy: [facility] PCP: Pratibha Corado Insurance Plan: Medicare and Medicaid Financial: Denies any concerns. Discharge needs: No needs identified at this time. Care Coordination Team will provide discharge planning as needed, and will re-evaluate based on recommendations and treatment course. 01/21/25 1233 Referral Data Source of Information Chart review;Other (Comment) (CM spoke by phone with nurse Nichole from [facility]- address corrected on chart Nichole's ph# [phone]) Patient Information Primary Caregiver Self (at baseline, pt able to bathe/dress self/feed self and ambulate-is nonverbal) Current living Situation Other (Comment) ([facility]-has been there for past month per Nicholenurse) Type of Residence senior living Support System Other (Comment) (staff at facility) Are you employed? Disabled Baseline ADL's Functional Status Independent (at baseline-pt bathes, dresses, feeds self and able to ambulate-but is nonverbal) Behavior Oriented;Cooperative (at baseline per nurse Varela) Communication Understands Mongolian;Understands speaking (at baseline, per nurse Varela) DC screening tool This is a screening tool it does not take the place of a physical or occupational therapy evaluation. The screening is to screen the patient for what services and destination would be beneficial for patient for next level of care Chart Review;Other (Comment) (spoke by phone with Nichole nurse [phone], with [facility], pt residesat [address] [facility]) Based on the screening the DC plan for consideration is: Patient expects to be discharged to: Skilled Nursing Adequate Resources Available Adequate Resources Yes * Vic Hensley RN - 01/21/2025 12:32 PM CDT 01/21/25 1232 Forms First Important Message from Medicare (IMM) Signed Copy delivered (pt unable to understand/sign; discussed with Nichole nurse from [facility] facility) * Carlee Urrutia RN - 01/21/2025 12:03 AM CST Problem: Discharge Planning Goal: Knowledge of discharge instructions Outcome: Progressing Problem: Pain control/comfort Goal: Promote pain control/comfort Outcome: Progressing Problem: Moisture associated skin impairment Goal: Reduce moisture exposure Outcome: Progressing Problem: Reduced risk for falls/injury Goal: Reduced Risk for Falls/Injury Outcome: Progressing Goal: Reduced Risk of Confusion (Acute vs Chronic) Outcome: Progressing Goal: Reduced Risk of Symptomatic Depression Outcome: Progressing Goal: Reduced Risk of Altered Elimination Outcome: Progressing Goal: Reduced Risk of Dizziness/Vertigo/Balance Outcome: Progressing Goal: Reduced Risk of Polypharmacy Outcome: Progressing Problem: Skin integrity, Impaired-wound Goal: Absence of new skin breakdown Outcome: Met This Shift Problem: Skin integrity, Impaired-pressure injury/ulcer Goal: Absence of new skin breakdown Outcome: Met This Shift Problem: Skin integrity, at risk Goal: Absence of new skin breakdown Outcome: Met This Shift Problem: Moisture associated skin impairment Goal: Absence of new skin breakdown Outcome: Met This Shift Problem: Skin integrity, Impaired-wound Goal: Evidence of wound healing Outcome: Completed Problem: Skin integrity, Impaired-pressure injury/ulcer Goal: Evidence of pressure injury/ulcer healing Outcome: Completed Problem: Moisture associated skin impairment Goal: Evidence of wound healing Outcome: Completed Goal: Evidence of pressure injury/ulcer healing Outcome: Completed E PAVER documented in this encounter H&P Notes * Ele Moreno APRN - 01/20/2025 3:14 PM CST ATTENDING: ELE MORENO APRN PRIMARY CARE PROVIDER: FROILAN DILLON CC: Shortness of breath HPI: Maria Del Carmen Goldman is a 69-year-old female with past medical history of vitamin D deficiency, hypokalemia, anxiety, schizophrenia, GERD, hypertension, bladder disorder, nonverbal, cerebral palsy presented from a detention presented with acute shortness of breath. Per EMS and the detention staff they reported the patient had acute signs of trouble breathing after she was eating. She does not wear any oxygen. But was noted to have an O2 saturation of the upper 80s and was placed on 2 L nasal cannula. No reported fevers or chills. History is limited due to patient being nonverbal at baseline. She is normally ambulatory. She had a CT of the chest with contrast to rule out pulmonary emboli. Did note that she has some dependent secretions and mucous plugging in the left mainstream bronchus and the left lower lobe bronchi with bibasilar opacities. Past Medical History: Diagnosis Date Abdominal pain 04/10/2014 Mild intellectual disabilities Non-smoker Non-verbal learning disorder Osteoporosis History reviewed. No pertinent surgical history. Social History Socioeconomic History Marital status: Single Spouse name: Not on file Number of children: Not on file Years of education: Not on file Highest education level: Not on file Occupational History Not on file Tobacco Use Smoking status: Never Passive exposure: Never Smokeless tobacco: Never Vaping Use Vaping status: Never Used Substance and Sexual Activity Alcohol use: No Drug use: No Sexual activity: Not on file Other Topics Concern Not on file Social History Narrative Not on file Social Drivers of Health Financial Resource Strain: Not on file Food Insecurity: Not on file Transportation Needs: Not on file Physical Activity: Not on file Stress: Not on file Social Connections: Not on file Intimate Partner Violence: Not on file Housing Stability: Not on file No family history on file. Prior to Admission medications Medication Sig Start Date End Date Taking? Authorizing Provider B Complex-C Tab tablet Take 1 tablet by mouth daily. Yes Default History Genericprovider Cholecalciferol (VITAMIN D3) 50 MCG (2000 UT) Cap TAKE 1 CAPSULE BY MOUTH ONCE EVERY DAY FOR VITAMIN-D DEFICIENCY Patient taking differently: Take 2,000 Units by mouth daily. 09/04/24 Yes Darvin Stearns MD clomiPRAMINE (ANAFRANIL) 25 MG capsule Take 1 capsule (25 mg total) by mouth daily. 01/13/24 Yes Default History Genericprovider ClomiPRAMINE HCl 50 MG Cap Take 1 capsule (50 mg total) by mouth nightly at bedtime. 04/11/15 Yes Doc [facility] Docusate Sodium (DSS) 100 MG Cap Take 100 mg by mouth 2 (two) times daily. Yes Default History Genericprovider fluticasone propionate (FLONASE) 50 MCG/ACT nasal spray INHALE 2 SPRAYS IN EACH NOSTRIL EVERY NIGHTAT BEDTIME FOR CHRONIC RHINITIS Patient taking differently: 2 sprays by Each Nostril route nightly as needed for Allergies. 09/29/24 Yes FROILAN Dillon magnesium oxide (MAG-OX) 250 MG tablet Take 1 tablet (250 mg total) by mouth daily. Yes Default History Genericprovider metoprolol tartrate (LOPRESSOR) 25 MG tablet Take 1 tablet (25 mg total) by mouth 2 (two) times daily. 11/28/24 Yes FROILAN Dillon omeprazole EC (PRILOSEC OTC) 20 MG tablet Take 1 tablet (20 mg total) by mouth daily. Yes Default History Genericprovider oxybutynin ER 5 MG 24 hr tablet Take 1 tablet (5 mg total) by mouth nightly at bedtime. 12/03/15 YesDoc [facility] potassium chloride CR (K-TAB) 10 MEQ Tab CR tablet Take 2 tablets (20 mEq total) by mouth daily. Corrected script 11/28/24 Yes FROILAN Dillon risperiDONE 0.5 MG tablet Take 1 tablet (0.5 mg total) by mouth nightly at bedtime. 04/25/12 Yes [facility] risperiDONE 1 MG tablet Take 1 tablet (1 mg total) by mouth 2 (two) times daily. 04/11/15 Yes Doc [facility] sodium chloride 1 GM tablet Take 1 tablet (1 g total) by mouth daily. Yes Default History Genericprovider vitamin C (ASCORBIC ACID) 500 MG tablet Take 1 tablet (500 mg total) by mouth 2 (two) times a day. Corrected script 11/28/24 Yes FROILAN Dillon Acetaminophen 500 MG Cap Take 1,000 mg by mouth every 6 (six) hours as needed (pain). 06/02/24 FROILAN Dillon bisacodyl EC (DULCOLAX) 5 MG Tab EC tablet Take 2 tablets (10 mg total) by mouth every 8 (eight) hours as needed. If no BM for 3 days Patient taking differently: Take 2 tablets (10 mg total) by mouth every 8 (eight) hours as needed (Constipation). If no BM for 3 days 11/28/24 Pratibha Corado, [facility]- guaiFENesin (ROBITUSSIN) 100 MG/5ML solution Take 10 mLs (200 mg total) by mouth every 4 (four) hours as needed for Cough. Default History Genericprovider loperamide 2 MG capsule Take 1 capsule (2 mg total) by mouth 4 (four) times daily as needed for Diarrhea. Doc [facility] magnesium hydroxide (MILK OF MAGNESIA) 400 MG/5ML suspension Take 30 mLs by mouth daily as needed for Constipation. 09/04/24 Darvin Stearns MD [id number]-pramoxine 1 % Ointment ointment Apply topically 2 (two) times daily as needed (Lesions). 12/03/15 Doc [facility] I have reviewed current outpatient medications and reconciled them for inpatient admission. Appropriate medications to be continued. Inappropriate medications to be held for now. No Known Allergies ROS: A 10 point review of systems was taken and pertinent positives and negatives as per HPI. All othersnegative save as noted in HPI. PHYSICAL EXAM: No intake or output data in the 24 hours ending 01/20/25 1514 Patient Vitals for the past 24 hrs: BP Temp Temp src Pulse Resp SpO2 Height Weight 01/20/25 1300 133/88 -- -- 94 29 93 % -- -- 01/20/25 1108 127/84 98 ??F (36.7 ??C) Temporal 89 28 94 % 1.524 m (5') 39.6 kg (87 lb 4.8 oz) Intake/Output :[id number]@ Constitutional: Well developed, Well nourished, No acute distress HENT: Normocephalic, Atraumatic, Bilateral external ears normal, Oropharynx moist Neck- Normal range of motion, No tenderness, Supple, No stridor. Respiratory: Bilaterally clear to auscultation with no rales, rhonchi, or wheezes. Good aeration. Cardiovascular: S1, S2 present, regular rate and rhythm. No murmurs, rubs, or gallops. GI: Bowel sounds normal, Soft, No tenderness or guarding, No masses, No pulsatile masses. Musculoskeletal: Intact distal pulses, No edema, No tenderness, No cyanosis, No clubbing. Integument: Warm, Dry, No erythema Neurologic: nonverbal, Normal motor function, Normal sensory function, No focal deficits noted. Psychiatric: Affect normal Labs: Recent Labs Lab 01/20/25 1106 WBC 6.86 RBC 4.35 HGB 12.3 HCT 38.9 MCV 89.4 MCH 28.3 MCHC 31.6* PLT 271 RDW 13.2 MPV 10.2 PERNEU 72.0 PERLYM 18.1 PERMON 9.8 NEUC 4.94 LYMC 1.24 MONOC 0.67 EOSC 0.00* BASOC 0.00* DTYPE AUTOMATED DIFFERENTIAL Recent Labs Lab 01/20/25 1106 NA 139 K 3.3* CL 99 CO2 40.5* AGAP NOT CALCULATED BUN 6* CR 0.52* BUNCREATININ 11.6 GLU 111* CA 8.8 TP 7.5 ALB 2.6* TBIL 0.3 ALKP 101 AST 16 ALT 26 No results for input(s): CHOL , TRI , HDL , LDL , HGBA1C , TSH in the last 168 hours. No results for input(s): APTT , INR , PTT in the last 168 hours. Recent Labs Lab 01/20/25 1106 TROP 7 Recent Labs Lab 01/20/25 1339 LACTICACID 1.9 Recent Labs Lab 01/20/25 1445 PH 7.39 PCO2 68.0* PO2 122.0* [id number] 99* BICARBWB 41.2* BASEEXCESS 13.1* No results found for this or any previous visit. Diagnostic Review CTA CHEST PE PROTOCOL Result Date: 01/20/2025 [facility] [address] [place], [place] [address] EXAMINATION: CTA CHEST WITH CONTRAST, PULMONARY EMBOLISM CLINICAL HISTORY: Elevated d-dimer. Shortness of breath. Concern for pulmonary embolism. COMPARISON: 12/13/2024 TECHNIQUE: Computed tomography angiography was performed of the chest after administration of intravenous contrast, 84 mL Isovue-370, according to pulmonary embolism protocol. Axial, multiplanar, and 3-D/MIP images were reconstructed. A dose lowering technique was used for this procedure, which may include, but is not limited to, dose reduction technique, automated exposure control, the use of iterative reconstruction, and ALARA (As Low As Reasonably Achievable) / Image Gently techniques. Maximum intensity projection images were obtained. FINDINGS: No filling defects identified within the main pulmonary artery, right or left pulmonary artery branches, lobar pulmonary arteries, or segmental pulmonary artery branches to suggest CT evidence of pulmonary thromboembolism. Normal heart size. No pleural or pericardial effusions. No bul ky axillary, mediastinal, or hilar lymphadenopathy. Trachea is patent. Dependent secretions and/or mucous plugging noted in the left mainstem bronchus and lower lobe bronchi. Patchy bibasilar opacities. No suspicious lung mass. No pneumothorax. Imaged portions of the upper abdomen reveal and sludgeor stones of the gallbladder. Colonic diverticulosis. Osseous structures reveal degenerative changes in the spine. IMPRESSION: 1. No CT evidence of pulmonary thromboembolism. 2. Dependent secretions and/or mucous plugging in the left mainstem bronchus and left lower lobe bronchi. Patchy bibasilar opacities could be due to atelectasis or infection. 3. Please see above for additional chronic, incidental, and nonem ergent findings elsewhere. Referred By: Interpreted By: Vincent Marcus MD, 01/20/2025 2:[address] HEAD WO CON Result Date: 01/20/[address] [address] [address] HEADWITHOUT CONTRAST Exam date: 01/20/2025 12:28 PM Clinical history: Weakness Technique: 3 mm collimatedaxial images of the head were obtained without contrast. A dose lowering technique was used for this procedure, which may include, but is not limited to, dose reduction technique, automated exposure control, the use of iterative reconstruction, and ALARA (As Low As Reasonably Achievable) / Image Gently techniques. Comparison: reviewed without prior studies available for comparison. FINDINGS: Images of the head demonstrate no evidence of acute or chronic intracranial hemorrhage. No masses or mass effects are seen. The ventricles and sulci are symmetric. There is no evidence of midline shift. Mild small vessel ischemic changes are noted in the periventricular white matter. No extra-axial fluid collections are noted. The basilar cisterns are widely patent Bone windows reveal the paranasal sinuses and mastoid air cells to appear clear. There is no evidence of fracture. 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[id number] By: MORIAH LORENZO Order Number: [id number] Reading MD: Chevy Dodson Measurements Intervals [place] Rate: 85 P: 17 [place]: 149 QRS: -26 QRSD: 91 T: 30 QT: 293 QTc: 349 Interpretive Statements SINUS RHYTHM VOLTAGE CRITERIA FOR LVH [MEETS CRITERIA IN ONE OF: R(aVL), S(V1), R(V5), R(V5/V6)+S(V1)]POSSIBLE SEPTAL MYOCARDIAL INFARCTION [30 ms Q WAVE IN V1/V2], OF INDETERMINATE AGE Compared to ECG04/27/2024 12:57:46 Left-axis deviation no longer present Myocardial infarct finding still present E lectronically signed by Chevy Dodson at 01-20-2025 12:29:10 [facility] XR CHEST PA+LAT Result Date: 01/20/[address] [address] Examination: Chest x-ray 2 view Exam Date/Time: 01/20/2025 11:25 AM Reason For Exam: acute sob x today while eating Comparison: Chest radiograph 12/13/2024 Technique: PA and lateral viewsof the chest were obtained. Findings: Asymmetric volume loss in the right hemithorax similar to prior study with rightward tilting of the patient. No large effusion. No pneumothorax. Heart size stable. No consolidation. Pulmonary vasculature upper limits normal. Minimal infiltrate or atelectasis inthe right lung base similar to the prior study. No new infiltrates or consolidative changes. ======= = IMPRESSION: ======== 1. Minimal infiltrates or atelectasis at the right lung base Referred By: Interpreted By: Stephen Wall MD, 01/20/2025 12:21 PM Results for orders placed or performed during the hospital encounter of 01/20/25 [address] 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[id number] Requested By: MORIAH LORENZO Order Number: [id number] Reading MD: Chevy Dodson Measurements Intervals [place] Rate: 85 P: 17 [place]: 149 QRS: -26 QRSD: 91 T: 30 QT: 293 QTc: 349 Interpretive Statements SINUS RHYTHM VOLTAGE CRITERIA FOR LVH [MEETS CRITERIA IN ONE OF: R(aVL), S(V1), R(V5), R(V5/V6)+S(V1)] POSSIBLE SEPTAL MYOCARDIAL INFARCTION [30 ms Q WAVE IN V1/V2], OF INDETERMINATE AGE Compared to ECG 04/27/2024 12:57:46 Left-axis deviation no longer present Myocardial infarct finding still present [facility] ASSESSMENT AND PLAN: Community-acquired pneumonia No signs of sepsis Dependent secretions with mucous plugging in the left main bronchus and left lower lobe bronchi with patchy bibasilar opacities Check PCT Respiratory PCR negative IV antibiotics with azithromycin and Rocephin O2 supplementation as needed. Was noted to have low oxygen saturations in the detention. She was 94% on room air when she arrived to the emergency department. Monitor O2 saturations closely. Elevated DDMIMER Negative CTA of chest Check venous dopplers Cerebral palsy/schizophrenia/nonverbal Supportive care Continue home medications - DVT prophylaxis: Heparin Sub Q - Code status:FULL CODE - Disposition: inpatient This note was dictated with the use of [employer] dictation software and was proofread to the best of my ability. If you have questions or find errors, please contact me via [employer] clinical communications. Thank you. ELE MORENO APRN 01/20/2025 3:14 PM Cosigned by Shahida Davila MD at 01/21/2025 5:29 AM CDT E P[facility]ER Associated attestation - Shahida Davila MD - 01/21/2025 5:29 AM CDT I, Shahida Davila MD, participated in the care of this patient today and discussed the plan of care with NAT Orr, who shared in this visit. I have reviewed the NAT's documentation and agree with the findings except as I have documented. I personally spent 45 minutes, caring for this patient. Shahida Davila MD documented in this encounter Consult Notes * Alexandruvinod SosaDO - 01/23/2025 2:43 PM CDTAssociated Order(s): IP CONSULT TO PULMONOLOGY Pulmonary Consultation Note History CC: hypoxia/pna HPI: Maria Del Carmen Goldman is a 69-year-old female with a PMHx of cerebral palsy / intellectual disability/ nonverbal status, who presents to [facility] on 01/20/25 with worsening breathing after she was eating with notable hypoxia afterwards. -- hypoxia persisted in hospital, on CAP therapy, on modified diet, pulmonary consulted for opinion. Other Pulm Relevant Hx: Unable to obtain, nonverbal status Imaging reviewed: CTA chest 01/20/25: No CT evidence of pulmonary thromboembolism. 2. Dependent secretions and/or mucous plugging in the left mainstem bronchus and left lower lobe bronchi. Patchy bibasilar opacities could be due to atelectasis or infection 3. Please see above for additional chronic, incidental, and nonemergent findings elsewhere. CXR 01/23/25: INTERVAL DEVELOPMENT OF NEW ABNORMAL PARENCHYMAL OPACITY RIGHT MIDDLE AND LOWER LUNG CONSISTENT WITH ACUTE PNEUMONIA. Testing/Data reviewed: Labs: admission labs to date on 01/23/2025 have been reviewed: Echo: PFT: Sleep Studies: Past Medical History: Diagnosis Date Abdominal pain 04/10/2014 Mild intellectual disabilities Non-smoker Non-verbal learning disorder Osteoporosis History reviewed. No pertinent surgical history. Social History Tobacco Use Smoking status: Never Passive exposure: Never Smokeless tobacco: Never Vaping Use Vaping status: Never Used Substance Use Topics Alcohol use: No Drug use: No No family history on file. ===> pt nonverbal, unable to provide this information. No Known Allergies acetylcysteine 20 % 400 mg Nebulization 3 times daily RT albuterol 5 mg Nebulization 3 times daily RT azithromycin 500 mg Intravenous Q24H cefepime 2 g Intravenous Once cefepime 2 g Intravenous Q12H clomiPRAMINE 25 mg Oral Daily And clomiPRAMINE 50 mg Oral Nightly at bedtime heparin (porcine) 5,000 Units Subcutaneous 2 times per day metoprolol tartrate 25 mg Oral BID pantoprazole EC 40 mg Oral Daily risperiDONE 1 mg Oral BID And risperiDONE 0.5 mg Oral Nightly at bedtime sodium chloride 1 g Oral Daily solifenacin succinate 10 mg Oral Daily vancomycin 750 mg Intravenous Once vancomycin pharmacy to dose Intravenous See Admin Instructions vitamin D3 2,000 Units Oral Daily albuterol, bisacodyl EC, fluticasone propionate Review of Systems Unable to perform ROS: Patient nonverbal Physical Exam Filed Vitals: 01/23/25 0718 01/23/25 1117 01/23/25 1404 01/23/25 1405 BP: (!) 140/86 (!) 163/87 (!) 150/86 Pulse: 88 74 Resp: 16 19 Temp: 98.2 ??F (36.8 ??C) 97.7 ??F (36.5 ??C) TempSrc: Axillary Oral SpO2: 90% 100% (!) 87% 96% Weight: Height: GEN: in mild respiratory distress NEURO: nonverbal, somnolent, opens eyes however. Does not follow commands PSYCH: Affect is withdrawn EENT: No sinus tenderness to palpation NECK: Supple, trachea midline LN: No appreciable cervical lymphadenopathy to palpation PULM: rhonchi notes b/l, referred upper airway sounds. HEART: normal s1,s2, rrr, no murmur GI: non-distended, bs+ MSK: Normal passive range of motion of b/l hand/wrist joints without effusion or joint tenderness EXTR: No clubbing ,no edema Skin: No visible rashes, no visible tattoos Assessment # Acute hypoxic respiratory failure -- suspect recurrent aspiration playing a role, this is a recurrent issue for this pt per their staff. # abnormal pulmonary imaging Evidence of aspiration pneumonitis vs pna. # underweight Body mass index is 16.66 kg/m??. Plan Dx: -- additional imaging recommended: cxr in am -- additional work up: urine legionella/strep pna, RVP, -- sputa analysis: respiratory sputum culture ordered, please collect or place cup in room for collection, submit to lab within 2 hours of collection ideally. Tx: -- GIVEN CONCERN FOR ASPIRATION / RECURRENT SUGGEST NPO PENDING A GOC DISCUSSION WITH FAMILY. Suggest no po intake until formal swallow evaluation / MBS can take place however given burden of mucus plugging/aspiration would hold this for the time being as to not worsen respiratory status. -- atb: on therapy with ctx/vanc. Stop ctx, start cefe. MRSA screen -- steroids: currently on none, add solumedrol 40mg bid for now. . -- inhalers/nebs; currently on none: start chest pt tid with vest / mucomyst and albuterol. -- O2: currently on 2L NC with spo2 high 90s on this, d/w RT to provide with optiflo with high flowand low fio2 maintain SpO2 90-96% ==> to help with co2 washout etc, do not feel will tolerate cpap or bipap given her impaired mentation/aspiration etc. -- pulm toilet: mental status limits this however ideally OOBTC with all meals as able, acapella, and IS use encouraged (please ensure patient has access to these devices as ordered and knows how to use) Will continue to follow, please don't hesitate to page/text with questions or concerns. I personally spent a total of 80 minutes on the day of the encounter. This includes [id number] and qqa-fvcx-bx-face time I provided on the day of the encounter & excludes time spent performing separately reportable services. Dr. Enrike Sosa [facility] Pulmonary Medicine documented in this encounter Nursing Notes * Mariela Loya RN - 01/31/2025 11:07 AM CDT Report given to receiving RN Madelyn at [facility]. All questions answered at this time, call back number available to nurse for any further questions or concerns. documented in this encounter ED Notes * Danielle Chau RN - 01/20/2025 3:40 PM CST Pt depend full of urine. Pt depends changed and purwick placed. No foul smell, no odor. Yellow in color. E PAVER * Danielle Chau RN - 01/20/2025 2:20 PM CST Pt placed on 2L nasal cannula for comfort per Moriah ORTIZ E PAVER * Danielle Chau RN - 01/20/2025 12:05 PM CST This rn attempted to get pt up to ambulate them. Pt was too weak to sit up on own and unable to stand up without assistance. Pt sat back in stretcher. PT sats maintained 92% when attempting to sit her up E PAVER * Danielle Chau RN - 01/20/2025 11:55 AM CST Spoke with nichole caregiver phone number [phone] Nichole states pt is normally a busy body and is able to follow commands and assign the pt tasks which they will perform. Pt is non verbal at baseline. Pt weakness x 2 days. E PAVER * Danielle Chau RN - 01/20/2025 11:10 AM CST Pt via ems from [facility]. EMS reported pt SOB upon EMS arrival and slightly working to breath. EMS reported 89% on RA placed pt on 2L. Pt is 94% on RA during triage. Pt non verbal at baseline. EMS reported pt is normally ambulatory. E PAVER E PAVER * ANGEL Rees - 01/20/2025 11:10 AM CST ED NOTE Chief Complaint Chief Complaint Patient presents with Breathing Problem History of Present Illness 69-year-old female with a history of vitamin D deficiency, hypokalemia, anxiety, schizophrenia, GERD, chronic rhinitis, hypertension, bladder disorder, micturition, osteoporosis presents to the emergency room from the [facility] via EMS for signs of trouble breathing. Per EMS and staff report patient had acute signs of trouble breathing after eating. Is typically ambulatory. Does not wear oxygen. States that patient's oxygen did go into the upper 80s and was placed on 2 L nasal cannula. No reported fevers or URI symptoms. No other acute complaints. Limited historyfrom patient as patient is nonverbal at baseline. No reported change in cognition. Medical History ALLERGIES: Review of patient's allergies indicates: No Known Allergies MEDICATIONS: Prior to Admission medications Medication Sig Start Date End Date Taking? Authorizing Provider B Complex-C Tab tablet Take 1 tablet by mouth daily. Yes Default History Genericprovider Cholecalciferol (VITAMIN D3) 50 MCG (2000 UT) Cap TAKE 1 CAPSULE BY MOUTH ONCE EVERY DAY FOR VITAMIN-D DEFICIENCY Patient taking differently: Take 2,000 Units by mouth daily. 09/04/24 Yes Darvin Stearns MD clomiPRAMINE (ANAFRANIL) 25 MG capsule Take 1 capsule (25 mg total) by mouth daily. 01/13/24 Yes Default History Genericprovider ClomiPRAMINE HCl 50 MG Cap Take 1 capsule (50 mg total) by mouth nightly at bedtime. 04/11/15 Yes Doc [facility] Docusate Sodium (DSS) 100 MG Cap Take 100 mg by mouth 2 (two) times daily. Yes Default History Genericprovider fluticasone propionate (FLONASE) 50 MCG/ACT nasal spray INHALE 2 SPRAYS IN EACH NOSTRIL EVERY NIGHTAT BEDTIME FOR CHRONIC RHINITIS Patient taking differently: 2 sprays by Each Nostril route nightly as needed for Allergies. 09/29/24 Yes FROILAN Dillon magnesium oxide (MAG-OX) 250 MG tablet Take 1 tablet (250 mg total) by mouth daily. Yes Default History Genericprovider metoprolol tartrate (LOPRESSOR) 25 MG tablet Take 1 tablet (25 mg total) by mouth 2 (two) times daily. 11/28/24 Yes FROILAN Dillon omeprazole EC (PRILOSEC OTC) 20 MG tablet Take 1 tablet (20 mg total) by mouth daily. Yes Default History Genericprovider oxybutynin ER 5 MG 24 hr tablet Take 1 tablet (5 mg total) by mouth nightly at bedtime. 12/03/15 YesDoc [facility] potassium chloride CR (K-TAB) 10 MEQ Tab CR tablet Take 2 tablets (20 mEq total) by mouth daily. Corrected script 11/28/24 Yes FROILAN Dillon risperiDONE 0.5 MG tablet Take 1 tablet (0.5 mg total) by mouth nightly at bedtime. 04/25/12 Yes [facility] risperiDONE 1 MG tablet Take 1 tablet (1 mg total) by mouth 2 (two) times daily. 04/11/15 Yes Doc [facility] sodium chloride 1 GM tablet Take 1 tablet (1 g total) by mouth daily. Yes Default History Genericprovider vitamin C (ASCORBIC ACID) 500 MG tablet Take 1 tablet (500 mg total) by mouth 2 (two) times a day. Corrected script 11/28/24 Yes FROILAN Dillon Acetaminophen 500 MG Cap Take 1,000 mg by mouth every 6 (six) hours as needed (pain). 06/02/24 FROILAN Dillon bisacodyl EC (DULCOLAX) 5 MG Tab EC tablet Take 2 tablets (10 mg total) by mouth every 8 (eight) hours as needed. If no BM for 3 days Patient taking differently: Take 2 tablets (10 mg total) by mouth every 8 (eight) hours as needed (Constipation). If no BM for 3 days 11/28/24 Pratibha Harvey FROILAN Corado guaiFENesin (ROBITUSSIN) 100 MG/5ML solution Take 10 mLs (200 mg total) by mouth every 4 (four) hours as needed for Cough. Default History Genericprovider loperamide 2 MG capsule Take 1 capsule (2 mg total) by mouth 4 (four) times daily as needed for Diarrhea. Doc [facility] magnesium hydroxide (MILK OF MAGNESIA) 400 MG/5ML suspension Take 30 mLs by mouth daily as needed for Constipation. 09/04/24 Darvin Stearns MD [id number]-pramoxine 1 % Ointment ointment Apply topically 2 (two) times daily as needed (Lesions). 12/03/15 Doc [facility] PAST MEDICAL HISTORY: Past Medical History: Diagnosis Date Abdominal pain 04/10/2014 Mild intellectual disabilities Non-smoker Non-verbal learning disorder Osteoporosis PAST SURGICAL HISTORY: History reviewed. No pertinent surgical history. FAMILY HISTORY: No family history on file. SOCIAL HISTORY: Social History Tobacco Use Smoking status: Never Passive exposure: Never Smokeless tobacco: Never Vaping Use Vaping status: Never Used Substance Use Topics Alcohol use: No Drug use: No Physical Exam Filed Vitals: 01/20/25 1108 01/20/25 1300 01/20/25 1420 01/20/25 1500 BP: 127/84 133/88 (!) 137/96 Pulse: 89 94 95 97 Resp: 28 29 27 Temp: 98 ??F (36.7 ??C) TempSrc: Temporal SpO2: 94% 93% 100% Weight: 39.6 kg (87 lb 4.8 oz) Height: 1.524 m (5') Physical Exam Vitals and nursing note reviewed. Constitutional: Appearance: Normal appearance. She is well-developed. Comments: Nontoxic appearing HENT: Head: Normocephalic and atraumatic. Nose: Nose normal. Mouth/Throat: Mouth: Mucous membranes are moist. Pharynx: Oropharynx is clear. Eyes: Conjunctiva/sclera: Conjunctivae normal. Cardiovascular: Rate and Rhythm: Normal rate and regular rhythm. Pulses: Normal pulses. Heart sounds: Normal heart sounds. Pulmonary: Effort: Pulmonary effort is normal. No respiratory distress. Breath sounds: Normal breath sounds. Abdominal: General: Bowel sounds are normal. There is no distension. Palpations: Abdomen is soft. Tenderness: There is no abdominal tenderness. Musculoskeletal: General: Normal range of motion. Cervical back: Normal range of motion and neck supple. Right lower leg: No edema. Left lower leg: No edema. Skin: General: Skin is warm and dry. Capillary Refill: Capillary refill takes less than 2 seconds. Findings: No rash. Neurological: Mental Status: She is alert. Mental status is at baseline. Psychiatric: Mood and Affect: Mood normal. Behavior: Behavior normal. 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[id number] Requested By: MORIAH LORENZO Order Number: [id number] Reading MD: Chevy Dodson Measurements Intervals [place] Rate: 85 P: 17 [place]: 149 QRS: -26 QRSD: 91 T: 30 QT: 293 QTc: 349 Interpretive Statements SINUS RHYTHM VOLTAGE CRITERIA FOR LVH [MEETS CRITERIA IN ONE OF: R(aVL), S(V1), R(V5), R(V5/V6)+S(V1)] POSSIBLE SEPTAL MYOCARDIAL INFARCTION [30 ms Q WAVE IN V1/V2], OF INDETERMINATE AGE Compared to ECG 04/27/2024 12:57:46 Left-axis deviation no longer present Myocardial infarct finding still present E [facility] LABORATORY STUDIES: Results for orders placed or performed during the hospital encounter of 01/20/25 CBC W/DIFF AUTOMATED Result Value Ref Range WBC 6.86 4.5 - 11.0 x10'3/uL RBC 4.35 4.20 - 5.40 x10'6/uL HGB 12.3 12.0 - 16.0 G/DL HCT 38.9 38.0 - 48.0 % MCV 89.4 81.0 - 99.0 FL MCH 28.3 27.0 - 31.0 PG MCHC 31.6 (L) 32.0 - 36.0 G/DL RDW 13.2 11.5 - 14.5 % PLT 271 130 - 400 x10'3/uL MPV 10.2 9.3 - 12.2 FL DIFFERENTIAL TYPE AUTOMATED DIFFERENTIAL NEUTROPHILS % 72.0 % LYMPHOCYTES % 18.1 % MONOCYTES % 9.8 % EOSINOPHILS 0.0 % BASOPHILS 0.0 % IMMATURE GRANS % 0.1 % ABS. NEUTROPHILS 4.94 1.80 - 7.70 x10'3/uL ABS. LYMPHOCYTES 1.24 1.00 - 4.80 x10'3/uL ABS. MONOCYTES 0.67 0.24 - 0.86 x10'3/uL ABS. EOSINOPHILS 0.00 (L) 0.04 - 0.36 x10'3/uL ABS. BASOPHILS 0.00 (L) 0.01 - 0.08 x10'3/uL ABS. IMMATURE GRANULOCYTES 0.01 0.00 - 0.49 x10'3/uL COMPREHENSIVE METABOLIC PANEL Result Value Ref Range GLUCOSE 111 (H) 70 - 99 MG/DL BUN 6 (L) 7 - 18 MG/DL CREATININE S/P/B 0.52 (L) 0.55 - 1.02 MG/DL SODIUM S/P/B 139 136 - 145 MMOL/L POTASSIUM S/P/B 3.3 (L) 3.5 - 5.1 MMOL/L CHLORIDE S/P/B 99 97 - 115 MMOL/L CO2 40.5 (HH) 21 - 32 MMOL/L CALCIUM S/P/B 8.8 8.5 - 10.1 MG/DL BILIRUBIN TOTAL S/P/B 0.3 0.2 - 1.2 MG/DL TOTAL PROTEIN S/P/B 7.5 6.4 - 8.2 G/DL ALBUMIN S/P/B 2.6 (L) 3.4 - 5.0 G/DL AST 16 15 - 37 U/L ALT 26 14 - 55 U/L ALKALINE PHOSPHATASE S/P/B 101 50 - 136 U/L ANION GAP NOT CALCULATED 2 - 10 MMOL/L BUN CREATININE RATIO 11.6 6 - 26 A/G RATIO 0.5 (L) 1.0 - 2.0 RATIO GFR ESTIMATE >90 >90 ML/MIN/1.73 M2 TROPONIN, QUANT Result Value Ref Range TROPONIN I HIGH SENSITIVITY 7 <54 ng/L D-DIMER, QUANTITATIVE Result Value Ref Range D-DIMER 1,101 (HH) 0 - 500 ng[FEU]/mL PRO-BRAIN NATRIURETIC PEPTIDE Result Value Ref Range PRO-B TYPE NATRIURETIC PEPTIDE 161 (H) <125 PG/ML MAGNESIUM Result Value Ref Range MAGNESIUM 1.9 1.8 - 2.4 MG/DL ARTERIAL BLOOD GAS Result Value Ref Range PH ARTERIAL 7.39 7.35 - 7.45 PCO2 68.0 (H) 35.0 - 45.0 MMHG PO2 122.0 (H) 83.0 - 108.0 MMHG TOTAL CO2 ARTERIAL 43.3 (H) 19.0 - 24.0 MMOL/L BASE EXCESS 13.1 (H) 0.0 - 3.0 MMOL/L O2 SATURATION 99 (H) 94.0 - 98.0 % BICARB ARTERIAL 41.2 (H) 21.0 - 28.0 MMOL/L GEOVANNA TEST GEOVANNA TEST PERFORMED O2 ADMIN ARTERIAL 21 DRAW SITE ARTERIAL RT RADIAL LACTIC ACID W REFLEX (SEPSIS) Result Value Ref Range LACTIC ACID VENOUS 1.9 0.4 - 2.0 MMOL/L RESPIRATORY PCR PANEL 2 Specimen: NASOPHARYNGEAL SWAB Result Value Ref Range ADENOVIRUS PCR (RESP) NOT DETECTED NOT DETECTED CORONAVIRUS 229E PCR (RESP) NOT DETECTED NOT DETECTED CORONAVIRUS HKU1 PCR (RESP) NOT DETECTED NOT DETECTED CORONAVIRUS NL63 PCR (RESP) NOT DETECTED NOT DETECTED CORONAVIRUS OC43 PCR (RESP) NOT DETECTED NOT DETECTED METAPNEUMOVIRUS PCR (RESP) NOT DETECTED NOT DETECTED RHINOVIRUS/ENTEROVIRUS PCR (RESP) NOT DETECTED NOT DETECTED INFLUENZA A PCR (RESP) NOT DETECTED NOT DETECTED INFLUENZA B PCR (RESP) NOT DETECTED NOT DETECTED PARAINFLUENZA 1 PCR (RESP) NOT DETECTED NOT DETECTED PARAINFLUENZA 2 PCR (RESP) NOT DETECTED NOT DETECTED PARAINFLUENZA 3 PCR (RESP) NOT DETECTED NOT DETECTED PARAINFLUENZA 4 PCR (RESP) NOT DETECTED NOT DETECTED RSV PCR (RESP) NOT DETECTED NOT DETECTED B PARAPERTUSIS PCR (RESP) NOT DETECTED NOT DETECTED BORDETELLA PERTUSSIS PCR (RESP) NOT DETECTED NOT DETECTED CHLAMYDOPHILA PNEUMONIAE PCR (RESP) NOT DETECTED NOT DETECTED MYCOPLASMA PNEUMONIAE PCR (RESP) NOT DETECTED NOT DETECTED CORONAVIRUS SARS COV 2 PCR (RESP) NOT DETECTED NOT DETECTED CULTURE BACTERIA, BLOOD Specimen: BLOOD Result Value Ref Range SPEC DESCRIPTION BLOOD SPECIAL REQUESTS NO SPECIAL REQUEST CULTURE RESULT NO GROWTH <24 HRS IMAGING STUDIES CTA CHEST PE PROTOCOL Final Result by User, [id number] (01/20 1433) [address] [address] EXAMINATION: CTA CHEST WITH CONTRAST, PULMONARY EMBOLISM CLINICAL HISTORY: Elevated d-dimer. Shortness of breath. Concern for pulmonary embolism. COMPARISON: 12/13/2024 TECHNIQUE: Computed tomography angiography was performed of the chest after administration of intravenous contrast, 84 mL Isovue-370, according to pulmonary embolism protocol. Axial, multiplanar, and 3-D/MIP images were reconstructed. A dose lowering technique was used for this procedure, which may include, but is not limited to, dose reduction technique, automated exposure control, the use of iterative reconstruction, and ALARA (As Low As Reasonably Achievable) / Image Gently techniques. Maximum intensity projection images were obtained. FINDINGS: No filling defects identified within the main pulmonary artery, right or left pulmonary artery branches, lobar pulmonary arteries, or segmental pulmonary artery branches to suggest CT evidence of pulmonary thromboembolism. Normal heart size. No pleural or pericardial effusions. No bulky axillary, mediastinal, or hilar lymphadenopathy. Trachea is patent. Dependent secretions and/or mucous plugging noted in the left mainstem bronchus and lower lobe bronchi. Patchy bibasilar opacities. No suspicious lung mass. No pneumothorax. Imaged portions of the upper abdomen reveal and sludge or stones of the gallbladder. Colonic diverticulosis. Osseous structures reveal degenerative changes in the spine. IMPRESSION: 1. No CT evidence of pulmonary thromboembolism. 2. Dependent secretions and/or mucous plugging in the left mainstem bronchus and left lower lobe bronchi. Patchy bibasilar opacities could be due to atelectasis or infection. 3. Please see above for additional chronic, incidental, and nonemergent findings elsewhere. Referred By: Interpreted By: Vincent Marcus MD, 01/20/2025 2:[address] HEAD WO CON Final Result by User, [email or web address] (01/20 1230) [address] [address] [address] HEAD WITHOUT CONTRAST Exam date: 01/20/2025 12:28 PM Clinical history: Weakness Technique: 3 mm collimated axial images of the head were obtained without contrast. A dose lowering technique was used for this procedure, which may include, but is not limited to, dose reduction technique, automated exposure control, the use of iterative reconstruction, and ALARA (As Low As Reasonably Achievable) / Image Gently techniques. Comparison: reviewed without prior studies available for comparison. FINDINGS: Images of the head demonstrate no evidence of acute or chronic intracranial hemorrhage. No masses or mass effects are seen. The ventricles and sulci are symmetric. There is no evidence of midline shift. Mild small vessel ischemic changes are noted in the periventricular white matter. No extra-axial fluid collections are noted. The basilar cisterns are widely patent Bone windows reveal the paranasal sinuses and mastoid air cells to appear clear. There is no evidence of fracture. IMPRESSION: No acute findings Ordered By: MORIAH LORENZO Interpreted By: Gerard Narayan MD, 01/20/2025 12:28 PM XR CHEST PA+LAT Final Result by User, [id number] (01/20 1227) [address] [address] Examination: Chest x-ray 2 view Exam Date/Time: 01/20/2025 11:25 AM Reason For Exam: acute sob x today while eating Comparison: Chest radiograph 12/13/2024 Technique: PA and lateral views of the chest were obtained. Findings: Asymmetric volume loss in the right hemithorax similar to prior study with rightward tilting of the patient. No large effusion. No pneumothorax. Heart size stable. No consolidation. Pulmonary vasculature upper limits normal. Minimal infiltrate or atelectasis in the right lung base similar to the prior study. No new infiltrates or consolidative changes. ======== IMPRESSION: ======== 1. Minimal infiltrates or atelectasis at the right lung base Referred By: Interpreted By: Stephen Wall MD, 01/20/2025 12:21 PM ED Course / Medical Decision Making MDM Amount and/or Complexity of Data Reviewed Clinical lab tests: ordered and reviewed Tests in the radiology section of CPT??: reviewed and ordered Obtain history from someone other than the patient: yes (EMS report) Review and summarize past medical records: yes Discuss the patient with other providers: yes (Dr. Davila- hospitalist Dr. Hicks- ED attending) ED Course as of 01/20/25 1531 Sat Jan 20, 2025 1137 ECG 12 lead EKG 1135 sinus rhythm rate 85 bpm [place] 149 QTc 335 no STEMI. [AD] 1247 CT HEAD WO CON Per rad read: No acute findings [AD] 1247 XR CHEST PA+LAT Per rad read: Minimal infiltrates or atelectasis at the right lung base [AD] 1434 CTA CHEST PE PROTOCOL Per rad read: 1. No CT evidence of pulmonary thromboembolism. 2. Dependent secretions and/or mucous plugging in the left mainstem bronchus and left lower lobe bronchi. Patchy bibasilar opacities could be due to atelectasis or infection. 3. Please see above for additional chronic, incidental, and nonemergent findings elsewhere. [AD] 1501 Concern for weakness and sob with concerns for PNA. Plan to admit. Doc halo sent to hospitalist for admission [AD] 1531 S/w Dr. Davila who accepts admission to tele. No additional orders. [AD] ED Course User Index [AD] ANGEL Rees Medications cefTRIAXone (ROCEPHIN) 1 g in sodium chloride 0.9 % 50 mL IVPB (0 g Intravenous Infusion Stop Time 01/20/25 1513) azithromycin (ZITHROMAX) 500 mg in sodium chloride 0.9 % 250 mL IVPB (500 mg Intravenous New Bag 01/20/25 1351) iopamidol (ISOVUE-370) 76 % injection 84 mL (84 mLs Intravenous Given 01/20/25 1419) Clinical Impression Pneumonia (Primary) Weakness Current Discharge Medication List Disposition: Admit Follow-Up: No follow-up provider specified. ANGEL REES 01/20/2025 ANGEL Rees 01/20/25 1531 Cosigned by Abhinav Hicks MD at 01/20/2025 9:37 PM [facility] P[facility] E PAVER E PAVER * Danielle Chau RN - 01/20/2025 11:02 AM CST Bed: 06 Expected date: 01/20/25 Expected time: Means of arrival: Comments: [id number] E PAVER documented in this encounter Plan of Treatment Upcoming Encounters Date Type Department Care Team (Late st Contact Info) Description 05/29/2025 10:00 AM CDT Office Visit [facility] [address] [place] [phone] [facility] [address] [facility], [address] [place] [address] documented as of this encounter Goals Goal Patient Goal Type Associated Problems Recent Progress Patient-Stated? Author Outpatient Goal Lifestyle No Vic Jackson, RN Note: Able to return to current facility documented as of this encounter Procedures Procedure Name Priority Date/Time Associated Diagnosis Comments PROCALCITONIN (PCT) Routine 01/31/2025 6 :19 AM CDT COMPREHENSIVE METABOLIC PANEL Routine 01/31/2025 6:19 AM CDT C-REACTIVE PROTEIN Routine 01/31/2025 6: 19 AM CDT CBC W/DIFF AUTOMATED Routine 01/31/2025 6:19 AM CDT CBC W/DIFF AUTOMATED STAT 01/30/2025 1:43 PM CDT XR CHEST PORTABLE Today 01/30/2025 12: 28 PM CDT US ABD LIMITED Today 01/30/2025 9:34 AM CDT COMPREHENSIVE METABOLIC PANEL Routine 01/30/2025 6:35 AM CDT CBC W/DIFF AUTOMATED Routine 01/30/2025 6:35 AM CDT PROCALCITONIN (PCT) Routine 01/30/2025 6 :34 AM CDT C-REACTIVE PROTEIN Routine 01/30/2025 6: 34 AM CDT PROCALCITONIN (PCT) Routine 01/29/2025 1 0:28 AM CDT COMPREHENSIVE METABOLIC PANEL Routine 01/29/2025 10:28 AM CDT HEPATITIS PANEL,ACUTE Routine 01/29/2025 10:28 AM CDT C-REACTIVE PROTEIN Routine 01/29/2025 10 :28 AM CDT CBC W/DIFF AUTOMATED Routine 01/29/2025 10:28 AM CDT PHOSPHORUS, INORGANIC PHOSPHATE Routine 01/29/2025 10:28 AM CDT MAGNESIUM Routine 01/29/2025 10:28 AM CDT PROCALCITONIN (PCT) Routine 01/28/2025 7 :37 AM CDT COMPREHENSIVE METABOLIC PANEL Routine 01/28/2025 7:37 AM CDT C-REACTIVE PROTEIN Routine 01/28/2025 7: 37 AM CDT CBC W/DIFF AUTOMATED Routine 01/28/2025 7:37 AM CDT MAGNESIUM Routine 01/28/2025 7:37 AM CDT BASIC METABOLIC PANEL Routine 01/27/2025 5:59 AM CDT CBC W/DIFF AUTOMATED Routine 01/27/2025 5:59 AM CDT POCT GLUCOSE - HART DOCKED DEVICE Routine 01/26/2025 4:08 PM CDT POCT GLUCOSE - HART DOCKED DEVICE Routine 01/26/2025 10:15 AM CDT XR SPEECH SWALLOW KRISTINA ONLY Today 01/26/2025 10:13 AM CDT BASIC METABOLIC PANEL Routine 01/26/2025 6:28 AM CDT CBC W/DIFF AUTOMATED Routine 01/26/2025 6:28 AM CDT MAGNESIUM Routine 01/26/2025 6:28 AM CDT POCT GLUCOSE - HART DOCKED DEVICE Routine 01/26/2025 5:30 AM CDT XR CHEST PORTABLE TIMED 01/26/2025 4:3 7 AM CDT POCT GLUCOSE - HART DOCKED DEVICE Routine 01/25/2025 3:57 PM CDT POCT GLUCOSE - HART DOCKED DEVICE Routine 01/25/2025 11:13 AM CDT BLOOD GAS, ARTERIAL LAB Routine 01/25/2025 10:33 AM CDT BASIC METABOLIC PANEL Routine 01/25/2025 5:59 AM CDT CBC W/DIFF AUTOMATED Routine 01/25/2025 5:59 AM CDT BASIC METABOLIC PANEL TIMED 01/24/2025 7:55 PM CDT MRSA SCREENING Routine 01/24/2025 5:40 PM CDT BASIC METABOLIC PANEL TIMED 01/24/2025 3:30 PM CDT BASIC METABOLIC PANEL STAT 01/24/2025 9:01 AM CDT BASIC METABOLIC PANEL Routine 01/24/2025 6:12 AM CDT CBC W/DIFF AUTOMATED Routine 01/24/2025 6:12 AM CDT VANCOMYCIN Routine 01/24/2025 6:12 AM CDT XR CHEST PORTABLE TIMED 01/24/2025 4:4 2 AM CDT BLOOD GAS, ARTERIAL LAB STAT 01/23/2025 9:57 PM CDT PROCALCITONIN (PCT) Routine 01/23/2025 9 :20 PM CDT MRSA SCREENING Routine 01/23/2025 9:20 PM CDT PRO-BRAIN NATRIURETIC PEPTIDE Routine 01/23/2025 9:20 PM CDT POCT GLUCOSE - HART DOCKED DEVICE Routine 01/23/2025 8:54 PM CDT RESPIRATORY PCR PANEL 2 Routine 01/23/2025 3:[address] HEAD WO CON SANTOSH 01/23/2025 2:[address] CHEST WO CON SANTOSH 01/23/2025 2:50 PM CDT XR CHEST PORTABLE STAT 01/23/2025 2:1 2 PM CDT COMPREHENSIVE METABOLIC PANEL Routine 01/22/2025 6:49 AM CDT CBC W/DIFF AUTOMATED Routine 01/22/2025 6:49 AM CDT BLOOD GAS, ARTERIAL LAB STAT 01/20/2025 2:45 PM [facility] CTA CHEST PE PROTOCOL STAT 01/20/2025 2:19 PM [facility] LACTIC ACID W REFLEX (SEPSIS) STAT 01/20/2025 1:39 PM [facility] RESPIRATORY PCR PANEL 2 STAT 01/20/2025 1:39 PM [facility] CULTURE, BACTERIA, BLOOD STAT 01/20/2025 1:[address] HEAD WO CON STAT 01/20/2025 12:25 PM [facility] XR CHEST PA+LAT STAT 01/20/2025 12:17 PM [facility] ECG 12-LEAD Routine 01/20/2025 11:35 AM [facility] PRO-BRAIN NATRIURETIC PEPTIDE STAT 01/20/2025 11:06 AM [facility] COMPREHENSIVE METABOLIC PANEL STAT 01/20/2025 11:06 AM [facility] D-DIMER, QUANTITATIVE STAT 01/20/2025 11:06 AM [facility] CBC W/DIFF AUTOMATED STAT 01/20/2025 11:06 AM [facility] TROPONIN, QUANT STAT 01/20/2025 11:06 AM [facility] MAGNESIUM STAT 01/20/2025 11:06 AM [facility] documented in this encounter Results * (ABNORMAL) COMPREHENSIVE METABOLIC PANEL (01/31/2025 6:19 AM CDT) [facility] GLUCOSE 100(H) 70 - 99 MG/DL 01/31/2025 7:25 AM CDT [facility] BUN 7 7 - 18 MG/DL 01/31/2025 7:25 AM CDT [facility] CREATININE S/P/B 0.42(L) 0.55 - 1.02 MG/DL 01/31/2025 7:25 AM CDT [facility] SODIUM S/P/B 139 136 - 145 MMOL/L 01/31/2025 7:25 AM CDT [facility] POTASSIUM S/P/B 3.6 3.5 - 5.1 MMOL/L 01/31/2025 7:25 AM CDT [facility] CHLORIDE S/P/B 102 97 - 115 MMOL/L 01/31/2025 7:25 AM CDT [facility] CO2 35.0(H) 21 - 32 MMOL/L 01/31/2025 7:25 AM CDT [facility] CALCIUM S/P/B 9.6 8.5 - 10.1 MG/DL 01/31/2025 7:25 AM CDT [facility] BILIRUBIN TOTAL S/P/B 0.5 0.2 - 1.2 MG/DL 01/31/2025 7:25 AM CDT [facility] Comment: THIS ASSAY IS NOT RECOMMENDED FOR PATIENTS UNDERGOING TREATMENT WITH ELTROMBOPAG DUE TO THE POTENTIAL FOR FALSELY ELEVATED RESULTS. TOTAL PROTEIN S/P/B 8.0 6.4 - 8.2 G/DL 01/31/2025 7:25 AM CDT [facility] ALBUMIN S/P/B 2.3(L) 3.4 - 5.0 G/DL 01/31/2025 7:25 AM CDT [facility] AST 71(H) 15 - 37 U/L 01/31/2025 7:25 AM CDT [facility] ALT 164(H) 14 - 55 U/L 01/31/2025 7:25 AM CDT [facility] ALKALINE PHOSPHATASE S/P/B 140(H) 50 - 136 U/L 01/31/2025 7:25 AM CDT [facility] ANION GAP 2.0 2 - 10 MMOL/L 01/31/2025 7:25 AM CDT [facility] BUN CREATININE RATIO 16.7 6 - 26 01/31/2025 7:25 AM CDT [facility] A/G RATIO 0.4(L) 1.0 - 2.0 RATIO 01/31/2025 7:25 AM CDT [facility] GFR ESTIMATE >90 >90 ML/MIN/1.7 3 M2 01/31/2025 7:25 AM CDT [facility] Comment: NOTE: eGFR is not calculated for patients <18 years of age or gender unknown. This is an estimated GFR calculation using the new CKD EPI creatinine equation without race and so does not require a correction factor for race. This estimated GFR should not be used for calculating drug doses. 01/31/2025 6:19 AM CDT Christ Douglass MD LABORATORY Final Result [facility] [address] [place] [address], [place] [phone] * (ABNORMAL) CBC W/DIFF AUTOMATED (01/31/2025 6:19 AM CDT) WBC 13.14(H) 4.5 - 11.0 x10'3/uL 01/31/2025 7:41 AM CDT [facility] RBC 4.20 4.20 - 5.40 x10'6/uL 01/31/2025 7:41 AM CDT [facility] HGB 12.1 12.0 - 16.0 G/DL 01/31/2025 7:41 AM CDT [facility] HCT 38.0 38.0 - 48.0 % 01/31/2025 7:41 AM CDT [facility] MCV 90.5 81.0 - 99.0 FL 01/31/2025 7:41 AM CDT [facility] MCH 28.8 27.0 - 31.0 PG 01/31/2025 7:41 AM CDT [facility] MCHC 31.8(L) 32.0 - 36.0 G/DL 01/31/2025 7:41 AM CDT [facility] RDW 14.3 11.5 - 14.5 % 01/31/2025 7:41 AM CDT [facility] PLT 155 130 - 400 x10'3/uL 01/31/2025 7:41 AM CDT [facility] MPV 11.8 9.3 - 12.2 FL 01/31/2025 7:41 AM CDT [facility] DIFFERENTIAL TYPE AUTOMATED DIFFERENTIAL 01/31/2025 7:42 AM CDT [facility] NEUTROPHILS % 86.6 % 01/31/2025 7:42 AM CDT [facility] LYMPHOCYTES % 6.8 % 01/31/2025 7:42 AM CDT [facility] MONOCYTES % 5.3 % 01/31/2025 7:42 AM CDT [facility] EOSINOPHILS 0.5 % 01/31/2025 7:42 AM CDT [facility] BASOPHILS 0.1 % 01/31/2025 7:42 AM CDT [facility] IMMATURE GRANS % 0.7 % 02/01/20 7:42 AM CDT [facility] ABS. NEUTROPHILS 11.39(H) 1.80 - 7.70 x10'3/uL 01/31/2025 7:42 AM CDT [facility] ABS. LYMPHOCYTES 0.89(L) 1.00 - 4.80 x10'3/uL 01/31/2025 7:42 AM CDT [facility] ABS. MONOCYTES 0.69 0.24 - 0.86 x10'3/uL 01/31/2025 7:42 AM CDT [facility] ABS. EOSINOPHILS 0.07 0.04 - 0.36 x10'3/uL 01/31/2025 7:42 AM CDT [facility] ABS. BASOPHILS 0.01 0.01 - 0.08 x10'3/uL 01/31/2025 7:42 AM CDT [facility] ABS. IMMATURE GRANULOCYTES 0.09 0.00 - 0.49 x10'3/uL 01/31/2025 7:42 AM CDT [facility] RBC MORPHOLOGY RBC MORPHOLOGY APPEARS NORMAL. SLIDE REVIEWED. 01/31/2025 7:42 AM CDT [facility] PLT EST. ADEQUATE 01/31/2025 7:42 AM CDT [facility] 01/31/2025 6:19 AM CDT Christ Douglass MD LABORATORY Final Result [facility] [address] [place] [address], [place] [phone] * PROCALCITONIN (PCT) (01/31/2025 6:19 AM CDT) Procalcitonin 0.13 0.00 - 0.49 NG/ML 01/31/2025 8:06 AM CDT [facility] 01/31/2025 6:19 AM CDT Christ Douglass MD LABORATORY Final Result [facility] [address] [place] [address], [place] [phone] * (ABNORMAL) C-REACTIVE PROTEIN (01/31/2025 6:19 AM CDT) [facility] C-REACTIVE PROTEIN 10.20(H) <0.29 mg/dL 01/31/2025 7:25 AM CDT [facility] 01/31/2025 6:19 AM CDT Christ Douglass MD LABORATORY Final Result [facility] [address] [place] [address], [place] [phone] * (ABNORMAL) CBC W/DIFF AUTOMATED (01/30/2025 1:43 PM CDT) Pathologist [facility] [place] WBC 14.34(H) 4.5 - 11.0 x10'3/uL 01/30/2025 1:51 PM CDT [facility] RBC 4.07(L) 4.20 - 5.40 x10'6/uL 01/30/2025 1:51 PM CDT [facility] HGB 11.8(L) 12.0 - 16.0 G/DL 01/30/2025 1:51 PM CDT [facility] HCT 36.8(L) 38.0 - 48.0 % 01/30/2025 1:51 PM CDT [facility] MCV 90.4 81.0 - 99.0 FL 01/30/2025 1:51 PM CDT [facility] MCH 29.0 27.0 - 31.0 PG 01/30/2025 1:51 PM CDT [facility] MCHC 32.1 32.0 - 36.0 G/DL 01/30/2025 1:51 PM CDT [facility] RDW 14.1 11.5 - 14.5 % 01/30/2025 1:51 PM CDT [facility] PLT 252 130 - 400 x10'3/uL 01/30/2025 1:51 PM CDT [facility] MPV 11.6 9.3 - 12.2 FL 01/30/2025 1:51 PM CDT [facility] DIFFERENTIAL TYPE AUTOMATED DIFFERENTIAL 01/30/2025 1:51 PM CDT [facility] NEUTROPHILS % 86.2 % 01/30/2025 1:51 PM CDT [facility] LYMPHOCYTES % 6.3 % 01/30/2025 1:51 PM CDT [facility] MONOCYTES % 7.0 % 01/30/2025 1:51 PM CDT [facility] EOSINOPHILS 0.0 % 01/30/2025 1:51 PM CDT [facility] BASOPHILS 0.1 % 01/30/2025 1:51 PM CDT [facility] IMMATURE GRANS % 0.4 % 01/31/20 1:51 PM CDT [facility] ABS. NEUTROPHILS 12.36(H) 1.80 - 7.70 x10'3/uL 01/30/2025 1:51 PM CDT [facility] ABS. LYMPHOCYTES 0.90(L) 1.00 - 4.80 x10'3/uL 01/30/2025 1:51 PM CDT [facility] ABS. MONOCYTES 1.00(H) 0.24 - 0.86 x10'3/uL 01/30/2025 1:51 PM CDT [facility] ABS. EOSINOPHILS 0.00(L) 0.04 - 0.36 x10'3/uL 01/30/2025 1:51 PM CDT [facility] ABS. BASOPHILS 0.02 0.01 - 0.08 x10'3/uL 01/30/2025 1:51 PM CDT [facility] ABS. IMMATURE GRANULOCYTES 0.06 0.00 - 0.49 x10'3/uL 01/30/2025 1:51 PM CDT [facility] 01/30/2025 1:43 PM CDT Christ Douglass MD LABORATORY Final Result [facility] [address] [place] [address], * XR CHEST PORTABLE (01/30/2025 12:28 PM CDT) Anatomical Region Laterality Modality Chest Radiographic Yolis ging 01/30/2025 12:3 9 PM CDT Impressions 01/30/2025 12:40 PM CDT =====IMPRESSION:===== Similar right basilar consolidation compatible with pneumonia. Ordered By: CHRIST DOUGLASS Interpreted By: Yoel Caal MD, 01/30/2025 12:39 PM Narrative 01/30/2025 12:[address] PM [address] [address] Examination: Chest x-ray 1 view Exam date/time: 01/30/2025 12:02 PM Reason For Exam: WBC elevation at times tachypnea Comparison: Chest radiograph 01/26/2025. Technique: Upright AP view of the chest demonstrated. Findings: Cardiomediastinal silhouette is stable. Atherosclerotic calcifications of the thoracic aorta. Chronic elevation of the right hemidiaphragm, similar to prior. Similar right basilar consolidation, compatible with pneumonia. The left lung appears clear. Question small right pleural effusion. No left pleural effusion. No pneumothorax identified. Degenerative changes of the bilateral shoulders. Procedure Note Yoel Caal MD - 01/30/[address] [id number] Examination: Chest x-ray 1 view Exam date/time: 01/30/2025 12:02 PM Reason For Exam: WBC elevation at times tachypnea Comparison: Chest radiograph 01/26/2025. Technique: Upright AP view of the chest demonstrated. Findings: Cardiomediastinal silhouette is stable. Atheroscleroticcalcifications of the thoracic aorta. Chronic elevation of the righthemidiaphragm, similar to prior. Similar right basilar consolidation,compatible with pneumonia. The left lung appears clear. Question smallright pleural effusion. No left pleural effusion. No pneumothoraxidentified. Degenerative changes of the bilateral shoulders. =====IMPRESSION:===== Similar right basilar consolidation compatible with pneumonia. Ordered By: CHRIST DOUGLASS Interpreted By: Yoel Caal MD, 01/30/2025 12:39 PM Christ Douglass MD GENERAL IMAGING Final Result * US ABD LIMITED (01/30/2025 9:34 AM CDT) Anatomical Region Laterality Modality Abdomen Ultrasound 01/30/2025 9:36 AM CDT Impressions 01/30/2025 9:38 AM CDT =====IMPRESSION:===== Cholelithiasis without sonographic evidence for acute cholecystitis. Ordered By: CHRIST DOUGLASS Interpreted By: Yoel Caal MD, 01/30/2025 9:36 AM Narrative 01/30/2025 9:38 AM CDT [place] [address] EXAMINATION: Limited abdomen ultrasound: RUQ EXAM DATE/TIME: 01/30/2025 8:45 AM REASON FOR EXAM: elevated LFTs COMPARISON: CT abdomen pelvis 09/03/2023. TECHNIQUE: An ultrasound examination of the RUQ was performed to assess grayscale appearance, color-flow characteristics and spectral doppler analysis. FINDINGS: Evaluation somewhat limited by patient unable to breath-hold. Liver: Normal echogenicity. No masses. No intrahepatic duct dilatation. Liver measures 12.7cm. in length. Pancreas: Partially visualized with normal echogenicity. Portal vein: Limited evaluation secondary to overlying bowel gas. Gallbladder: Gallstones present. No gallbladder wall thickening or pericholecystic fluid. Negative sonographic Beavers's sign.Gallbladder wall thickness measures 0.2cm. Common bile duct Suboptimally visualized due to overlying bowel gas. Common bile duct measures 0.4cm in diameter Right kidney Measures: 9.1 cm X 4.8 cm X 4.6 cm. Normal echogenicity. Normal cortical perfusion. No masses, cysts, stones or hydronephrosis. Other findings: No ascites. Procedure Note Yoel Caal MD - 01/30/2025 [place] [address] EXAMINATION: Limited abdomen ultrasound: RUQ EXAM DATE/TIME: 01/30/2025 8:45 AM REASON FOR EXAM: elevated LFTs COMPARISON: CT abdomen pelvis 09/03/2023. TECHNIQUE: An ultrasound examination of the RUQ was performed to assessgrayscale appearance, color-flow characteristics and spectral doppleranalysis. FINDINGS: Evaluation somewhat limited by patient unable to breath-hold. Liver: Normal echogenicity. No masses. No intrahepatic duct dilatation.Liver measures 12.7cm. in length. Pancreas: Partially visualized with normal echogenicity. Portal vein: Limited evaluation secondary to overlying bowel gas. Gallbladder: Gallstones present. No gallbladder wall thickening orpericholecystic fluid. Negative sonographic Beavers's sign.Gallbladderwall thickness measures 0.2cm. Common bile duct Suboptimally visualized due to overlying bowel gas.Common bile duct measures 0.4cm in diameter Right kidney Measures: 9.1 cm X 4.8 cm X 4.6 cm. Normal echogenicity.Normal cortical perfusion. No masses, cysts, stones or hydronephrosis. Other findings: No ascites. =====IMPRESSION:===== Cholelithiasis without sonographic evidence for acute cholecystitis. Ordered By: CHRIST DOUGLASS Interpreted By: Yoel Caal MD, 01/30/2025 9:36 AM Christ Douglass MD ULTRASOUND Final Result * (ABNORMAL) COMPREHENSIVE METABOLIC PANEL (01/30/2025 6:35 AM CDT) GLUCOSE 98 70 - 99 MG/DL 01/30/2025 8:11 AM CDT [facility] BUN 9 7 - 18 MG/DL 01/30/2025 8:11 AM CDT [facility] CREATININE S/P/B 0.43(L) 0.55 - 1.02 MG/DL 01/30/2025 8:11 AM CDT [facility] SODIUM S/P/B 144 136 - 145 MMOL/L 01/30/2025 8:11 AM CDT [facility] POTASSIUM S/P/B 3.5 3.5 - 5.1 MMOL/L 01/30/2025 8:11 AM CDT [facility] CHLORIDE S/P/B 107 97 - 115 MMOL/L 01/30/2025 8:11 AM CDT [facility] CO2 33.3(H) 21 - 32 MMOL/L 01/30/2025 8:11 AM CDT [facility] CALCIUM S/P/B 9.2 8.5 - 10.1 MG/DL 01/30/2025 8:11 AM CDT [facility] BILIRUBIN TOTAL S/P/B 0.4 0.2 - 1.2 MG/DL 01/30/2025 8:11 AM CDT [facility] Comment: THIS ASSAY IS NOT RECOMMENDED FOR PATIENTS UNDERGOING TREATMENT WITH ELTROMBOPAG DUE TO THE POTENTIAL FOR FALSELY ELEVATED RESULTS. TOTAL PROTEIN S/P/B 7.5 6.4 - 8.2 G/DL 01/30/2025 8:11 AM CDT [facility] ALBUMIN S/P/B 2.2(L) 3.4 - 5.0 G/DL 01/30/2025 8:11 AM CDT [facility] AST 102(H) 15 - 37 U/L 01/30/2025 8:11 AM CDT [facility] ALT 192(H) 14 - 55 U/L 01/30/2025 8:11 AM CDT [facility] ALKALINE PHOSPHATASE S/P/B 142(H) 50 - 136 U/L 01/30/2025 8:11 AM CDT [facility] ANION GAP 3.7 2 - 10 MMOL/L 01/30/2025 8:11 AM CDT [facility] BUN CREATININE RATIO 21.0 6 - 26 01/30/2025 8:11 AM CDT [facility] A/G RATIO 0.4(L) 1.0 - 2.0 RATIO 01/30/2025 8:11 AM CDT [facility] GFR ESTIMATE >90 >90 ML/MIN/1.7 3 M2 01/30/2025 8:11 AM CDT [facility] Comment: NOTE: eGFR is not calculated for patients <18 years of age or gender unknown. This is an estimated GFR calculation using the new CKD EPI creatinine equation without race and so does not require a correction factor for race. This estimated GFR should not be used for calculating drug doses. 01/30/2025 6:35 AM CDT Christ Douglass MD LABORATORY Final Result [facility] [address] [place] [address], [place] [phone] * (ABNORMAL) CBC W/DIFF AUTOMATED (01/30/2025 6:35 AM CDT) WBC 13.84(H) 4.5 - 11.0 x10'3/uL 01/30/2025 7:37 AM CDT [facility] RBC 4.22 4.20 - 5.40 x10'6/uL 01/30/2025 7:37 AM CDT [facility] HGB 11.9(L) 12.0 - 16.0 G/DL 01/30/2025 7:37 AM CDT [facility] HCT 38.5 38.0 - 48.0 % 01/30/2025 7:37 AM CDT [facility] MCV 91.2 81.0 - 99.0 FL 01/30/2025 7:37 AM CDT [facility] MCH 28.2 27.0 - 31.0 PG 01/30/2025 7:37 AM CDT [facility] MCHC 30.9(L) 32.0 - 36.0 G/DL 01/30/2025 7:37 AM CDT [facility] RDW 14.1 11.5 - 14.5 % 01/30/2025 7:37 AM CDT [facility] PLT 211 130 - 400 x10'3/uL 01/30/2025 7:37 AM CDT [facility] MPV 12.3(H) 9.3 - 12.2 FL 01/30/2025 7:37 AM CDT [facility] DIFFERENTIAL TYPE AUTOMATED DIFFERENTIAL 01/30/2025 7:37 AM CDT [facility] NEUTROPHILS % 85.3 % 01/30/2025 7:37 AM CDT [facility] LYMPHOCYTES % 7.9 % 01/30/2025 7:37 AM CDT [facility] MONOCYTES % 6.1 % 01/30/2025 7:37 AM CDT [facility] EOSINOPHILS 0.0 % 01/30/2025 7:37 AM CDT [facility] BASOPHILS 0.1 % 01/30/2025 7:37 AM CDT [facility] IMMATURE GRANS % 0.6 % 01/31/20 7:37 AM CDT [facility] ABS. NEUTROPHILS 11.82(H) 1.80 - 7.70 x10'3/uL 01/30/2025 7:37 AM CDT [facility] ABS. LYMPHOCYTES 1.09 1.00 - 4.80 x10'3/uL 01/30/2025 7:37 AM CDT [facility] ABS. MONOCYTES 0.84 0.24 - 0.86 x10'3/uL 01/30/2025 7:37 AM CDT [facility] ABS. EOSINOPHILS 0.00(L) 0.04 - 0.36 x10'3/uL 01/30/2025 7:37 AM CDT [facility] ABS. BASOPHILS 0.01 0.01 - 0.08 x10'3/uL 01/30/2025 7:37 AM CDT [facility] ABS. IMMATURE GRANULOCYTES 0.08 0.00 - 0.49 x10'3/uL 01/30/2025 7:37 AM CDT [facility] 01/30/2025 6:35 AM CDT Christ Douglass MD LABORATORY Final Result Performing Organization Address City/[facility]/ZIP Co de Phone Number [facility] [address] [place] [id number], [place] [phone] * (ABNORMAL) C-REACTIVE PROTEIN (01/30/2025 6:34 AM CDT) C-REACTIVE PROTEIN 2.71(H) <0.29 mg/dL 01/30/2025 11:59 AM CDT [facility] 01/30/2025 6:34 AM CDT Christ Douglass MD LABORATORY Final Result [facility] [address] [place] [address], [place] [phone] * PROCALCITONIN (PCT) (01/30/2025 6:34 AM CDT) Procalcitonin 0.18 0.00 - 0.49 NG/ML 01/30/2025 2:00 PM CDT [facility] 01/30/2025 6:34 AM CDT Christ Douglass MD LABORATORY Final Result Performing Organization Address City/[facility]/ZIP Co de Phone Number [facility] [address] [place] [address], * HEPATITIS PANEL,ACUTE (01/29/2025 10:28 AM CDT) HEPATITIS B SURFACE AG NON-REACTI VE NON-REACTI VE 01/29/2025 7:27 PM CDT [facility] HEP B CORE IGM NON-REACTI VE NON-REACTI VE 01/29/2025 7:27 PM CDT [facility] HAV IGM NON-REACTI VE NON-REACTI VE 01/29/2025 7:27 PM CDT [facility] HEPATITIS C AB NON-REACTI VE NON-REACTI VE 01/29/2025 7:27 PM CDT [facility] 01/29/2025 10:2 8 AM CDT Christ Douglass MD LABORATORY Final Result Performing Organization Address City/[facility]/ZIP Co de Phone Number [facility] [address] [place] [address], [place] [phone] * (ABNORMAL) COMPREHENSIVE METABOLIC PANEL (01/29/2025 10:28 AM CDT) GLUCOSE 121(H) 70 - 99 MG/DL 01/29/2025 11:02 AM CDT [facility] BUN 15 7 - 18 MG/DL 01/29/2025 11:02 AM CDT [facility] CREATININE S/P/B 0.53(L) 0.55 - 1.02 MG/DL 01/29/2025 11:02 AM T [facility] SODIUM S/P/B 146(H) 136 - 145 MMOL/L 01/29/2025 11:02 AM [facility] POTASSIUM S/P/B 3.5 3.5 - 5.1 MMOL/L 01/29/2025 11:02 AM [facility] CHLORIDE S/P/B 108 97 - 115 MMOL/L 01/29/2025 11:02 AM [facility] CO2 36.3(H) 21 - 32 MMOL/L 01/29/2025 11:02 AM [facility] CALCIUM S/P/B 9.3 8.5 - 10.1 MG/DL 01/29/2025 11:02 AM [facility] BILIRUBIN TOTAL S/P/B 0.6 0.2 - 1.2 MG/DL 01/29/2025 11:02 AM [facility] Comment: THIS ASSAY IS NOT RECOMMENDED FOR PATIENTS UNDERGOING TREATMENT WITH ELTROMBOPAG DUE TO THE POTENTIAL FOR FALSELY ELEVATED RESULTS. TOTAL PROTEIN S/P/B 7.8 6.4 - 8.2 G/DL 01/29/2025 11:02 AM T [facility] ALBUMIN S/P/B 2.4(L) 3.4 - 5.0 G/DL 01/29/2025 11:02 AM T [facility] AST 219(H) 15 - 37 U/L 01/29/2025 11:02 AM [facility] ALT 267(H) 14 - 55 U/L 01/29/2025 11:02 AM [facility] ALKALINE PHOSPHATASE S/P/B 156(H) 50 - 136 U/L 01/29/2025 11:02 AM CDT [facility] ANION GAP 1.7(L) 2 - 10 MMOL/L 01/29/2025 11:02 AM CDT [facility] BUN CREATININE RATIO 28.1(H) 6 - 26 01/29/2025 11:02 AM CDT [facility] A/G RATIO 0.4(L) 1.0 - 2.0 RATIO 01/29/2025 11:02 AM CDT [facility] GFR ESTIMATE >90 >90 ML/MIN/1.7 3 M2 01/29/2025 11:02 AM CDT [facility] Comment: NOTE: eGFR is not calculated for patients <18 years of age or gender unknown. This is an estimated GFR calculation using the new CKD EPI creatinine equation without race and so does not require a correction factor for race. This estimated GFR should not be used for calculating drug doses. 01/29/2025 10:2 8 AM CDT Christ Douglass MD LABORATORY Final Result [facility] [address] [place] [address], [place] [phone] * (ABNORMAL) CBC W/DIFF AUTOMATED (01/29/2025 10:28 AM CDT) WBC 8.49 4.5 - 11.0 x10'3/uL 01/29/2025 10:42 AM CDT [facility] RBC 4.17(L) 4.20 - 5.40 x10'6/uL 01/29/2025 10:42 AM CDT [facility] HGB 12.0 12.0 - 16.0 G/DL 01/29/2025 10:42 AM CDT [facility] HCT 38.2 38.0 - 48.0 % 01/29/2025 10:42 AM CDT [facility] MCV 91.6 81.0 - 99.0 FL 01/29/2025 10:42 AM CDT [facility] MCH 28.8 27.0 - 31.0 PG 01/29/2025 10:42 AM CDT [facility] MCHC 31.4(L) 32.0 - 36.0 G/DL 01/29/2025 10:42 AM CDT [facility] RDW 13.6 11.5 - 14.5 % 01/29/2025 10:42 AM CDT [facility] PLT 229 130 - 400 x10'3/uL 01/29/2025 10:42 AM CDT [facility] MPV 11.2 9.3 - 12.2 FL 01/29/2025 10:42 AM T [facility] DIFFERENTIAL TYPE AUTOMATED DIFFERENTIAL 01/29/2025 10:42 AM CDT [facility] NEUTROPHILS % 77.0 % 01/29/2025 10:42 AM CDT [facility] LYMPHOCYTES % 12.7 % 01/29/2025 10:42 AM CDT [facility] MONOCYTES % 9.7 % 01/29/2025 10:42 AM CDT [facility] EOSINOPHILS 0.0 % 01/29/2025 10:42 AM CDT [facility] BASOPHILS 0.1 % 01/29/2025 10:42 AM CDT [facility] IMMATURE GRANS % 0.5 % 01/30/20 10:42 AM CDT [facility] ABS. NEUTROPHILS 6.54 1.80 - 7.70 x10'3/uL 01/29/2025 10:42 AM CDT [facility] ABS. LYMPHOCYTES 1.08 1.00 - 4.80 x10'3/uL 01/29/2025 10:42 AM CDT [facility] ABS. MONOCYTES 0.82 0.24 - 0.86 x10'3/uL 01/29/2025 10:42 AM CDT [facility] ABS. EOSINOPHILS 0.00(L) 0.04 - 0.36 x10'3/uL 01/29/2025 10:42 AM CDT [facility] ABS. BASOPHILS 0.01 0.01 - 0.08 x10'3/uL 01/29/2025 10:42 AM CDT [facility] ABS. IMMATURE GRANULOCYTES 0.04 0.00 - 0.49 x10'3/uL 01/29/2025 10:42 AM CDT [facility] 01/29/2025 10:2 8 AM CDT Christ Douglass MD LABORATORY Final Result [facility] [address] [place] [address], * PHOSPHORUS, INORGANIC PHOSPHATE (01/29/2025 10:28 AM CDT) PHOSPHORUS 3.0 2.5 - 4.9 MG/DL 01/29/2025 11:02 AM CDT [facility] 01/29/2025 10:2 8 AM CDT us Christ Douglass MD LABORATORY Final Result [facility] [address] [place] [phone], [place] [phone] * MAGNESIUM (01/29/2025 10:28 AM CDT) MAGNESIUM 2.4 1.8 - 2.4 MG/DL 01/29/2025 11:02 AM CDT [facility] 01/29/2025 10:2 8 AM CDT us Christ Douglass MD LABORATORY Final Result [facility] [address] [place] [address], [place] [phone] * PROCALCITONIN (PCT) (01/29/2025 10:28 AM CDT) [facility] Procalcitonin 0.15 0.00 - 0.49 NG/ML 01/29/2025 1:15 PM CDT [facility] 01/29/2025 10:2 8 AM CDT us Christ Douglass MD LABORATORY Final Result Performing Organization Address City/[facility]/ZIP Co de Phone Number [facility] [address] [place] [address], [place] [phone] * (ABNORMAL) C-REACTIVE PROTEIN (01/29/2025 10:28 AM CDT) [facility] C-REACTIVE PROTEIN 1.63(H) <0.29 mg/dL 01/29/2025 12:46 PM CDT [facility] 01/29/2025 10:2 8 AM CDT us Christ Douglass MD LABORATORY Final Result [facility] [address] [place] [address], [place] [phone] * (ABNORMAL) COMPREHENSIVE METABOLIC PANEL (01/28/2025 7:37 AM CDT) [facility] GLUCOSE 108(H) 70 - 99 MG/DL 01/28/2025 8:34 AM CDT [facility] BUN 8 7 - 18 MG/DL 01/28/2025 8:34 AM CDT [facility] CREATININE S/P/B 0.54(L) 0.55 - 1.02 MG/DL 01/28/2025 8:34 AM CDT [facility] SODIUM S/P/B 142 136 - 145 MMOL/L 01/28/2025 8:34 AM CDT [facility] POTASSIUM S/P/B 3.4(L) 3.5 - 5.1 MMOL/L 01/28/2025 8:34 AM CDT [facility] CHLORIDE S/P/B 106 97 - 115 MMOL/L 01/28/2025 8:34 AM CDT [facility] CO2 33.6(H) 21 - 32 MMOL/L 01/28/2025 8:34 AM CDT [facility] CALCIUM S/P/B 8.9 8.5 - 10.1 MG/DL 01/28/2025 8:34 AM CDT [facility] BILIRUBIN TOTAL S/P/B 1.5(H) 0.2 - 1.2 MG/DL 01/28/2025 8:34 AM CDT [facility] Comment: THIS ASSAY IS NOT RECOMMENDED FOR PATIENTS UNDERGOING TREATMENT WITH ELTROMBOPAG DUE TO THE POTENTIAL FOR FALSELY ELEVATED RESULTS. TOTAL PROTEIN S/P/B 7.6 6.4 - 8.2 G/DL 01/28/2025 8:34 AM CDT [facility] ALBUMIN S/P/B 2.2(L) 3.4 - 5.0 G/DL 01/28/2025 8:34 AM CDT [facility] AST 182(H) 15 - 37 U/L 01/28/2025 8:34 AM CDT [facility] ALT 152(H) 14 - 55 U/L 01/28/2025 8:34 AM CDT [facility] ALKALINE PHOSPHATASE S/P/B 94 50 - 136 U/L 01/28/2025 8:34 AM CDT [facility] ANION GAP 2.4 2 - 10 MMOL/L 01/28/2025 8:34 AM CDT [facility] BUN CREATININE RATIO 14.7 6 - 26 01/28/2025 8:34 AM CDT [facility] A/G RATIO 0.4(L) 1.0 - 2.0 RATIO 01/28/2025 8:34 AM CDT [facility] GFR ESTIMATE >90 >90 ML/MIN/1.7 3 M2 01/28/2025 8:34 AM CDT [facility] Comment: NOTE: eGFR is not calculated for patients <18 years of age or gender unknown. This is an estimated GFR calculation using the new CKD EPI creatinine equation without race and so does not require a correction factor for race. This estimated GFR should not be used for calculating drug doses. 01/28/2025 7:37 AM CDT Christ Douglass MD LABORATORY Final Result [facility] [address] [place] [address], [place] [phone] * (ABNORMAL) CBC W/DIFF AUTOMATED (01/28/2025 7:37 AM CDT) WBC 6.46 4.5 - 11.0 x10'3/uL 01/28/2025 8:25 AM CDT [facility] RBC 4.33 4.20 - 5.40 x10'6/uL 01/28/2025 8:25 AM CDT [facility] HGB 12.4 12.0 - 16.0 G/DL 01/28/2025 8:25 AM CDT [facility] HCT 39.3 38.0 - 48.0 % 01/28/2025 8:25 AM CDT [facility] MCV 90.8 81.0 - 99.0 FL 01/28/2025 8:25 AM CDT [facility] MCH 28.6 27.0 - 31.0 PG 01/28/2025 8:25 AM CDT [facility] MCHC 31.6(L) 32.0 - 36.0 G/DL 01/28/2025 8:25 AM CDT [facility] RDW 13.5 11.5 - 14.5 % 01/28/2025 8:25 AM CDT [facility] PLT 201 130 - 400 x10'3/uL 01/28/2025 8:25 AM CDT [facility] MPV 11.3 9.3 - 12.2 FL 01/28/2025 8:25 AM CDT [facility] DIFFERENTIAL TYPE AUTOMATED DIFFERENTIAL 01/28/2025 8:25 AM CDT [facility] NEUTROPHILS % 62.7 % 01/28/2025 8:25 AM CDT [facility] LYMPHOCYTES % 26.2 % 01/28/2025 8:25 AM CDT [facility] MONOCYTES % 10.4 % 01/28/2025 8:25 AM CDT [facility] EOSINOPHILS 0.0 % 01/28/2025 8:25 AM CDT [facility] BASOPHILS 0.2 % 01/28/2025 8:25 AM CDT [facility] IMMATURE GRANS % 0.5 % 01/29/20 8:25 AM CDT [facility] ABS. NEUTROPHILS 4.06 1.80 - 7.70 x10'3/uL 01/28/2025 8:25 AM CDT [facility] ABS. LYMPHOCYTES 1.69 1.00 - 4.80 x10'3/uL 01/28/2025 8:25 AM CDT [facility] ABS. MONOCYTES 0.67 0.24 - 0.86 x10'3/uL 01/28/2025 8:25 AM CDT [facility] ABS. EOSINOPHILS 0.00(L) 0.04 - 0.36 x10'3/uL 01/28/2025 8:25 AM CDT [facility] ABS. BASOPHILS 0.01 0.01 - 0.08 x10'3/uL 01/28/2025 8:25 AM CDT [facility] ABS. IMMATURE GRANULOCYTES 0.03 0.00 - 0.49 x10'3/uL 01/28/2025 8:25 AM CDT [facility] 01/28/2025 7:37 AM CDT Christ Douglass MD LABORATORY Final Result [facility] [address] [place] [address], [place] [phone] * (ABNORMAL) C-REACTIVE PROTEIN (01/28/2025 7:37 AM CDT) C-REACTIVE PROTEIN 1.44(H) <0.29 mg/dL 01/28/2025 11:05 AM CDT [facility] 01/28/2025 7:37 AM CDT Christ Douglass MD LABORATORY Final Result Performing Organization Address City/[facility]/ZIP Co de Phone Number [facility] [address] [place] [phone], * PROCALCITONIN (PCT) (01/28/2025 7:37 AM CDT) Procalcitonin 0.07 0.00 - 0.49 NG/ML 01/28/2025 9:29 AM CDT [facility] 01/28/2025 7:37 AM CDT Christ Douglass MD LABORATORY Final Result Performing Organization Address City/[facility] Co de Phone Number [facility] [address] [place] [address], [place] [phone] * MAGNESIUM (01/28/2025 7:37 AM CDT) MAGNESIUM 2.1 1.8 - 2.4 MG/DL 01/28/2025 8:34 AM CDT [facility] 01/28/2025 7:37 AM CDT Christ Douglass MD LABORATORY Final Result Performing Organization Address City/[facility] Co de Phone Number [facility] [address] [place] [phone], * (ABNORMAL) BASIC METABOLIC PANEL (01/27/2025 5:59 AM CDT) GLUCOSE 107(H) 70 - 99 MG/DL 01/27/2025 7:06 AM CDT [facility] BUN 8 7 - 18 MG/DL 01/27/2025 7:06 AM T [facility] CREATININE S/P/B 0.45(L) 0.55 - 1.02 MG/DL 01/27/2025 7:06 AM [facility] SODIUM S/P/B 144 136 - 145 MMOL/L 01/27/2025 7:06 AM [facility] POTASSIUM S/P/B 2.9(LL) 3.5 - 5.1 MMOL/L 01/27/2025 7:06 AM [facility] Comment: Critical Result(s) Called at: 07:05:27 on 01/27/2025 by: KATEY VANN to and read back by: GINGER HOLGUIN CHLORIDE S/P/B 106 97 - 115 MMOL/L 01/27/2025 7:06 AM [facility] CO2 36.4(H) 21 - 32 MMOL/L 01/27/2025 7:06 AM [facility] CALCIUM S/P/B 8.9 8.5 - 10.1 MG/DL 01/27/2025 7:06 AM [facility] ANION GAP 1.6(L) 2 - 10 MMOL/L 01/27/2025 7:06 AM [facility] BUN CREATININE RATIO 17.9 6 - 26 01/27/2025 7:06 AM [facility] GFR ESTIMATE >90 >90 ML/MIN/1.7 3 M2 01/27/2025 7:06 AM [facility] Comment: NOTE: eGFR is not calculated for patients <18 years of age or gender unknown. This is an estimated GFR calculation using the new CKD EPI creatinine equation without race and so does not require a correction factor for race. This estimated GFR should not be used for calculating drug doses. 01/27/2025 5:59 AM CDT us Lexus Barroos MD LABORATORY Final Result [facility] [address] [place] [address], [place] [phone] * (ABNORMAL) CBC W/DIFF AUTOMATED (01/27/2025 5:59 AM CDT) Pathologist [facility] [place] WBC 6.75 4.5 - 11.0 x10'3/uL 01/27/2025 6:22 AM CDT [facility] RBC 3.64(L) 4.20 - 5.40 x10'6/uL 01/27/2025 6:22 AM CDT [facility] HGB 10.4(L) 12.0 - 16.0 G/DL 01/27/2025 6:22 AM CDT [facility] HCT 32.8(L) 38.0 - 48.0 % 01/27/2025 6:22 AM CDT [facility] MCV 90.1 81.0 - 99.0 FL 01/27/2025 6:22 AM CDT [facility] MCH 28.6 27.0 - 31.0 PG 01/27/2025 6:22 AM CDT [facility] MCHC 31.7(L) 32.0 - 36.0 G/DL 01/27/2025 6:22 AM CDT [facility] RDW 13.4 11.5 - 14.5 % 01/27/2025 6:22 AM CDT [facility] PLT 202 130 - 400 x10'3/uL 01/27/2025 6:22 AM CDT [facility] MPV 11.2 9.3 - 12.2 FL 01/27/2025 6:22 AM CDT [facility] DIFFERENTIAL TYPE AUTOMATED DIFFERENTIAL 01/27/2025 6:22 AM CDT [facility] NEUTROPHILS % 62.7 % 01/27/2025 6:22 AM T [facility] LYMPHOCYTES % 28.6 % 01/27/2025 6:22 AM T [facility] MONOCYTES % 8.4 % 01/27/2025 6:22 AM T [facility] EOSINOPHILS 0.0 % 01/27/2025 6:22 AM CDT [facility] BASOPHILS 0.0 % 01/27/2025 6:22 AM T [facility] IMMATURE GRANS % 0.3 % 01/28/20 6:22 AM T [facility] ABS. NEUTROPHILS 4.23 1.80 - 7.70 x10'3/uL 01/27/2025 6:22 AM CDT [facility] ABS. LYMPHOCYTES 1.93 1.00 - 4.80 x10'3/uL 01/27/2025 6:22 AM T [facility] ABS. MONOCYTES 0.57 0.24 - 0.86 x10'3/uL 01/27/2025 6:22 AM [facility] ABS. EOSINOPHILS 0.00(L) 0.04 - 0.36 x10'3/uL 01/27/2025 6:22 AM T [facility] ABS. BASOPHILS 0.00(L) 0.01 - 0.08 x10'3/uL 01/27/2025 6:22 AM [facility] ABS. IMMATURE GRANULOCYTES 0.02 0.00 - 0.49 x10'3/uL 01/27/2025 6:22 AM [facility] 01/27/2025 5:59 AM CDT Lexus Barroso MD LABORATORY Final Result Performing Organization Address City/[facility] Co de Phone Number [facility] [address] [place] [address], [place] [phone] * (ABNORMAL) POCT glucose (01/26/2025 4:08 PM CDT) GLUCOSE POC 133(H) 70 - 99 mg/dL 01/26/2025 4:50 PM CDT [facility] 01/26/2025 4:08 PM CDT Lexus Barroso MD POCT ORDERABLES - DEVICE Final Result Performing Organization Address [facility] de Phone Number [facility] [address] [place] [phone], [place] [phone] * POCT glucose (01/26/2025 10:15 AM CDT) GLUCOSE POC 87 70 - 99 mg/dL 01/26/2025 10:17 AM CDT [facility] 01/26/2025 10:1 5 AM CDT Lexus Barroso MD POCT ORDERABLES - DEVICE Final Result Performing Organization Address [facility] Co de Phone Number [facility] [address] [place] [address], [place] [phone] * XR SPEECH SWALLOW??KRISTINA ONLY (01/26/2025 10:13 AM CDT) Anatomical Region Laterality Modality NA Radiographic Yolis ging 01/26/2025 5:09 PM CDT Impressions 01/26/2025 5:13 PM CDT =====IMPRESSION:===== No aspiration. Please see speech pathology recommendations. Ordered By: RADHA RODRIGEZ Interpreted By: Jorge Arroyo MD, 01/26/2025 5:09 PM Narrative 01/26/2025 5:[address] [address] Examination: Modified barium swallow Exam date/time: 01/26/2025 9:30 AM Reason For Exam: [email or web address] Fluoroscopy time: 1 minute 42 seconds. Total of 11 cine series. Technique: Swallowing function was evaluated in the lateral projection using video fluoroscopy. Study was performed in conjunction with speech pathology. Findings: Various consistency barium samples were submitted to the patient by speech pathology ranging from thin liquid to barium coated cracker. Intact laryngeal elevation and epiglottic inversion. There is a mild delay of oral pharyngeal transit with puree. Longer delay with solids. With thin liquids, there is relatively rapid transit with premature contrast spillover to the level of the vallecular cavities. No laryngeal vestibular penetration or aspiration occurred. Incidental cervical spondylosis with reversal of lordosis. Chronic dental disease noted. Procedure Note Jorge Arroyo MD - 01/26/[address] [id number] Examination: Modified barium swallow Exam date/time: 01/26/2025 9:30 AM Reason For Exam: dysphagia Fluoroscopy time: 1 minute 42 seconds. Total of 11 cine series. Technique: Swallowing function was evaluated in the lateral projectionusing video fluoroscopy. Study was performed in conjunction with speechpathology. Findings: Various consistency barium samples were submitted to the patientby speech pathology ranging from thin liquid to barium coated cracker.Intact laryngeal elevation and epiglottic inversion. There is a mild delayof oral pharyngeal transit with puree. Longer delay with solids. With thinliquids, there is relatively rapid transit with premature contrastspillover to the level of the vallecular cavities. No laryngeal vestibularpenetration or aspiration occurred. Incidental cervical spondylosis withreversal of lordosis. Chronic dental disease noted. =====IMPRESSION:===== No aspiration. Please see speech pathology recommendations. Ordered By: RADHA RODRIGEZ Interpreted By: Jorge Arroyo MD, 01/26/2025 5:09 PM Radha Rodrigez [employer] FLU[employer]OSCOPY Fin al Result * MAGNESIUM (01/26/2025 6:28 AM CDT) MAGNESIUM 2.1 1.8 - 2.4 MG/DL 01/26/2025 10:23 AM CDT [facility] 01/26/2025 6:28 AM CDT Lexus Barroso MD LABORATORY Final Result [facility] [address] [place] [address], [place] [phone] * (ABNORMAL) BASIC METABOLIC PANEL (01/26/2025 6:28 AM CDT) GLUCOSE 72 70 - 99 MG/DL 01/26/2025 7:04 AM CDT [facility] BUN 14 7 - 18 MG/DL 01/26/2025 7:04 AM CDT [facility] CREATININE S/P/B 0.63 0.55 - 1.02 MG/DL 01/26/2025 7:04 AM CDT [facility] SODIUM S/P/B 147(H) 136 - 145 MMOL/L 01/26/2025 7:04 AM CDT [facility] POTASSIUM S/P/B 3.4(L) 3.5 - 5.1 MMOL/L 01/26/2025 7:04 AM CDT [facility] CHLORIDE S/P/B 109 97 - 115 MMOL/L 01/26/2025 7:04 AM CDT [facility] CO2 35.0(H) 21 - 32 MMOL/L 01/26/2025 7:04 AM CDT [facility] CALCIUM S/P/B 10.1 8.5 - 10.1 MG/DL 01/26/2025 7:04 AM CDT [facility] ANION GAP 3.0 2 - 10 MMOL/L 01/26/2025 7:04 AM T [facility] BUN CREATININE RATIO 22.3 6 - 26 01/26/2025 7:04 AM CDT [facility] GFR ESTIMATE >90 >90 ML/MIN/1.7 3 M2 01/26/2025 7:04 AM T [facility] Comment: NOTE: eGFR is not calculated for patients <18 years of age or gender unknown. This is an estimated GFR calculation using the new CKD EPI creatinine equation without race and so does not require a correction factor for race. This estimated GFR should not be used for calculating drug doses. 01/26/2025 6:28 AM CDT [place] Lexus Barroso MD LABORATORY Final Result [facility] [address] [place] [address], [place] [phone] * (ABNORMAL) CBC W/DIFF AUTOMATED (01/26/2025 6:28 AM CDT) WBC 9.88 4.5 - 11.0 x10'3/uL 01/26/2025 7:51 AM CDT [facility] RBC 4.44 4.20 - 5.40 x10'6/uL 01/26/2025 7:51 AM CDT [facility] HGB 12.7 12.0 - 16.0 G/DL 01/26/2025 7:51 AM CDT [facility] HCT 40.8 38.0 - 48.0 % 01/26/2025 7:51 AM CDT [facility] MCV 91.9 81.0 - 99.0 FL 01/26/2025 7:51 AM CDT [facility] MCH 28.6 27.0 - 31.0 PG 01/26/2025 7:51 AM CDT [facility] MCHC 31.1(L) 32.0 - 36.0 G/DL 01/26/2025 7:51 AM CDT [facility] RDW 13.9 11.5 - 14.5 % 01/26/2025 7:51 AM CDT [facility] PLT 246 130 - 400 x10'3/uL 01/26/2025 7:51 AM CDT [facility] MPV 11.2 9.3 - 12.2 FL 01/26/2025 7:51 AM CDT [facility] DIFFERENTIAL TYPE AUTOMATED DIFFERENTIAL 01/26/2025 7:51 AM CDT [facility] NEUTROPHILS % 67.2 % 01/26/2025 7:51 AM CDT [facility] LYMPHOCYTES % 25.2 % 01/26/2025 7:51 AM CDT [facility] MONOCYTES % 7.2 % 01/26/2025 7:51 AM CDT [facility] EOSINOPHILS 0.0 % 01/26/2025 7:51 AM CDT [facility] BASOPHILS 0.1 % 01/26/2025 7:51 AM CDT [facility] IMMATURE GRANS % 0.3 % 01/27/20 7:51 AM CDT [facility] ABS. NEUTROPHILS 6.64 1.80 - 7.70 x10'3/uL 01/26/2025 7:51 AM CDT [facility] ABS. LYMPHOCYTES 2.49 1.00 - 4.80 x10'3/uL 01/26/2025 7:51 AM CDT [facility] ABS. MONOCYTES 0.71 0.24 - 0.86 x10'3/uL 01/26/2025 7:51 AM CDT [facility] ABS. EOSINOPHILS 0.00(L) 0.04 - 0.36 x10'3/uL 01/26/2025 7:51 AM CDT [facility] ABS. BASOPHILS 0.01 0.01 - 0.08 x10'3/uL 01/26/2025 7:51 AM CDT [facility] ABS. IMMATURE GRANULOCYTES 0.03 0.00 - 0.49 x10'3/uL 01/26/2025 7:51 AM CDT [facility] 01/26/2025 6:28 AM CDT us Lexus Barroso MD LABORATORY Final Result [facility] [address] [place] [address], [place] [phone] * POCT glucose (01/26/2025 5:30 AM CDT) GLUCOSE POC 72 70 - 99 mg/dL 01/26/2025 5:34 AM CDT [facility] 01/26/2025 5:30 AM CDT us Lexus Barroso MD POCT ORDERABLES - DEVICE Final Result [facility] [address] [place] [address], [place] [phone] * XR CHEST PORTABLE (01/26/2025 4:37 AM CDT) Anatomical Region Laterality Modality Chest Radiographic Yolis ging 01/26/2025 4:40 AM CDT Impressions 01/26/2025 4:42 AM CDT IMPRESSION: There is worsening consolidation or atelectasis in the right lower lung with possible right-sided volume loss with mild mediastinal shift to the right. Referred By: Interpreted By: Kurt Crowder MD, 01/26/2025 4:40 AM Narrative 01/26/2025 4:[address] [address] Examination: XR CHEST PORTABLE Exam time: 01/26/2025 4:00 AM Indication: Aspiration pneumonia Comparison: Chest 01/24/2025 Findings: Semiupright AP view of the chest was obtained. There is worsening consolidation or atelectasis in the right lower lung. There is possible right-sided volume loss with mild mediastinal shift to the right. There is no pleural effusion or pneumothorax. Procedure Note Kurt Crowder MD - 01/26/[address] [address] Examination: XR CHEST PORTABLE Exam time: 01/26/2025 4:00 AM Indication: Aspiration pneumonia Comparison: Chest 01/24/2025 Findings: Semiupright AP view of the chest was obtained. There isworsening consolidation or atelectasis in the right lower lung. There ispossible right- sided volume loss with mild mediastinal shift to the right.There is no pleural effusion or pneumothorax. IMPRESSION: There is worsening consolidation or atelectasis in the rightlower lung with possible right-sided volume loss with mild mediastinalshift to the right. Referred By: Interpreted By: Kurt Crowder MD, 01/26/2025 4:40 AM Elvis Sosa DO GENERAL IMAGING Final Resu lt * (ABNORMAL) POCT glucose (01/25/2025 3:57 PM CDT) GLUCOSE POC 148(H) 70 - 99 mg/dL 01/25/2025 3:59 PM CDT [facility] 01/25/2025 3:57 PM CDT Lexus Barroso MD POCT ORDERABLES - DEVICE Final Result Performing Organization Address City/[facility]/ZIP Co de Phone Number [facility] [address] [place] [address], [place] [phone] * POCT glucose (01/25/2025 11:13 AM CDT) GLUCOSE POC 96 70 - 99 mg/dL 01/25/2025 11:16 AM CDT [facility] 01/25/2025 11:1 3 AM CDT Lexus Barroso MD POCT ORDERABLES - DEVICE Final Result Performing Organization Address City/[facility]/ZIP Co de Phone Number [facility] [address] [place] [address], [place] [phone] * (ABNORMAL) ARTERIAL BLOOD GAS (01/25/2025 10:33 AM CDT) Pathologist [facility] [place] PH ARTERIAL 7.44 7.35 - 7.45 01/25/2025 12:37 PM CDT [facility] PCO2 53.0(H) 35.0 - 45.0 MMHG 01/25/2025 12:37 PM CDT [facility] PO2 89.0 83.0 - 108.0 MMHG 01/25/2025 12:37 PM CDT [facility] TOTAL CO2 ARTERIAL 37.6(H) 19.0 - 24.0 MMOL/L 01/25/2025 12:37 PM CDT [facility] BASE EXCESS 9.9(H) 0.0 - 3.0 MMOL/L 01/25/2025 12:37 PM CDT [facility] O2 SATURATION 97 94.0 - 98.0 % 01/25/2025 12:37 PM CDT [facility] BICARB ARTERIAL 36.0(H) 21.0 - 28.0 MMOL/L 01/25/2025 12:37 PM CDT [facility] O2 ADMIN ARTERIAL 32% 01/25/2025 12:35 PM CDT [facility] DRAW SITE ARTERIAL RIGHT BRACHIAL 01/25/2025 12:35 PM T [facility] 01/25/2025 10:3 3 AM CDT us Radha Rodrigez NP LABORATORY Fin al Result [facility] [address] [place] [address], [place] [phone] * (ABNORMAL) BASIC METABOLIC PANEL (01/25/2025 5:59 AM CDT) Pathologist [facility] [place] GLUCOSE 104(H) 70 - 99 MG/DL 01/25/2025 6:40 AM [facility] BUN 12 7 - 18 MG/DL 01/25/2025 6:40 AM [facility] CREATININE S/P/B 0.68 0.55 - 1.02 MG/DL 01/25/2025 6:40 AM [facility] SODIUM S/P/B 149(H) 136 - 145 MMOL/L 01/25/2025 6:40 AM [facility] POTASSIUM S/P/B 3.2(L) 3.5 - 5.1 MMOL/L 01/25/2025 6:40 AM [facility] CHLORIDE S/P/B 110 97 - 115 MMOL/L 01/25/2025 6:40 AM [facility] CO2 37.7(H) 21 - 32 MMOL/L 01/25/2025 6:40 AM [facility] CALCIUM S/P/B 9.3 8.5 - 10.1 MG/DL 01/25/2025 6:40 AM [facility] ANION GAP 1.3(L) 2 - 10 MMOL/L 01/25/2025 6:40 AM [facility] BUN CREATININE RATIO 17.7 6 - 26 01/25/2025 6:40 AM [facility] GFR ESTIMATE >90 >90 ML/MIN/1.7 3 M2 01/25/2025 6:40 AM [facility] Comment: NOTE: eGFR is not calculated for patients <18 years of age or gender unknown. This is an estimated GFR calculation using the new CKD EPI creatinine equation without race and so does not require a correction factor for race. This estimated GFR should not be used for calculating drug doses. 01/25/2025 5:59 AM CDT Shahida Davila MD LABORATORY Final Result [facility] [address] [place] [address], [place] [phone] * (ABNORMAL) CBC W/DIFF AUTOMATED (01/25/2025 5:59 AM CDT) Pathologist [facility] [place] WBC 9.63 4.5 - 11.0 x10'3/uL 01/25/2025 6:21 AM CDT [facility] RBC 4.01(L) 4.20 - 5.40 x10'6/uL 01/25/2025 6:21 AM CDT [facility] HGB 11.4(L) 12.0 - 16.0 G/DL 01/25/2025 6:21 AM CDT [facility] HCT 37.2(L) 38.0 - 48.0 % 01/25/2025 6:21 AM CDT [facility] MCV 92.8 81.0 - 99.0 FL 01/25/2025 6:21 AM CDT [facility] MCH 28.4 27.0 - 31.0 PG 01/25/2025 6:21 AM CDT [facility] MCHC 30.6(L) 32.0 - 36.0 G/DL 01/25/2025 6:21 AM CDT [facility] RDW 14.2 11.5 - 14.5 % 01/25/2025 6:21 AM CDT [facility] PLT 245 130 - 400 x10'3/uL 01/25/2025 6:21 AM CDT [facility] MPV 10.9 9.3 - 12.2 FL 01/25/2025 6:21 AM [facility] DIFFERENTIAL TYPE AUTOMATED DIFFERENTIAL 01/25/2025 6:21 AM [facility] NEUTROPHILS % 79.1 % 01/25/2025 6:21 AM [facility] LYMPHOCYTES % 14.0 % 01/25/2025 6:21 AM [facility] MONOCYTES % 6.5 % 01/25/2025 6:21 AM [facility] EOSINOPHILS 0.0 % 01/25/2025 6:21 AM [facility] BASOPHILS 0.1 % 01/25/2025 6:21 AM [facility] IMMATURE GRANS % 0.3 % 01/26/20 6:21 AM [facility] ABS. NEUTROPHILS 7.61 1.80 - 7.70 x10'3/uL 01/25/2025 6:21 AM [facility] ABS. LYMPHOCYTES 1.35 1.00 - 4.80 x10'3/uL 01/25/2025 6:21 AM [facility] ABS. MONOCYTES 0.63 0.24 - 0.86 x10'3/uL 01/25/2025 6:21 AM [facility] ABS. EOSINOPHILS 0.00(L) 0.04 - 0.36 x10'3/uL 01/25/2025 6:21 AM [facility] ABS. BASOPHILS 0.01 0.01 - 0.08 x10'3/uL 01/25/2025 6:21 AM [facility] ABS. IMMATURE GRANULOCYTES 0.03 0.00 - 0.49 x10'3/uL 01/25/2025 6:21 AM [facility] 01/25/2025 5:59 AM CDT Shahida Davila MD LABORATORY Final Result [facility] [address] [place] [address], [place] [phone] * (ABNORMAL) BASIC METABOLIC PANEL (01/24/2025 7:55 PM CDT) [facility] GLUCOSE 105(H) 70 - 99 MG/DL 01/24/2025 8:44 PM CDT [facility] BUN 10 7 - 18 MG/DL 01/24/2025 8:44 PM CDT [facility] CREATININE S/P/B 0.43(L) 0.55 - 1.02 MG/DL 01/24/2025 8:44 PM CDT [facility] SODIUM S/P/B 151(H) 136 - 145 MMOL/L 01/24/2025 8:44 PM CDT [facility] POTASSIUM S/P/B 3.4(L) 3.5 - 5.1 MMOL/L 01/24/2025 8:44 PM CDT [facility] CHLORIDE S/P/B 111 97 - 115 MMOL/L 01/24/2025 8:44 PM CDT [facility] CO2 42.0(HH) 21 - 32 MMOL/L 01/24/2025 8:44 PM CDT [facility] Comment: Critical Result(s) Called at: 20:43:20 on 01/24/2025 by: MONTY CANSECO to and read back by:MONIKA GAY CALCIUM S/P/B 9.2 8.5 - 10.1 MG/DL 01/24/2025 8:44 PM CDT [facility] ANION GAP NOT CALCULATED 2 - 10 MMOL/L 01/24/2025 8:44 PM CDT [facility] BUN CREATININE RATIO 23.4 6 - 26 01/24/2025 8:44 PM CDT [facility] GFR ESTIMATE >90 >90 ML/MIN/1. 73 M2 01/24/2025 8:44 PM CDT [facility] Comment: NOTE: eGFR is not calculated for patients <18 years of age or gender unknown. This is an estimated GFR calculation using the new CKD EPI creatinine equation without race and so does not require a correction factor for race. This estimated GFR should not be used for calculating drug doses. 01/24/2025 7:55 PM CDT us Lexus Barroso MD LABORATORY Final Result Performing Organization Address [facility]/ZIP Co de Phone Number [facility] [address] [place] [phone], * MRSA SCREENING (01/24/2025 5:40 PM CDT) SPEC DESCRIPTION NASAL 01/24/2025 5:45 PM CDT [facility] SPECIAL REQUESTS NO SPECIAL REQUEST 01/24/2025 5:45 PM CDT [facility] CULTURE RESULT NO METHICILLIN RESISTANT STAPHYLOCOCCUS AUREUS ISOLATED 01/25/2025 12:24 PM CDT [facility] SPECIMEN FROM INTERNAL NOSE / Unknown 01/24/2025 5:40 PM CDT 01/24/2025 5:48 PM CDT us Radha Rodrigez NP MICROBIOLOGY - GENE RAL ORDERABLES Final Result Performing Organization Address City/[facility]/ZIP Co de Phone Number [facility] [address] [place] [address], [place] [phone] * (ABNORMAL) BASIC METABOLIC PANEL (01/24/2025 3:30 PM CDT) GLUCOSE 123(H) 70 - 99 MG/DL 01/24/2025 4:25 PM CDT [facility] BUN 12 7 - 18 MG/DL 01/24/2025 4:25 PM CDT [facility] CREATININE S/P/B 0.40(L) 0.55 - 1.02 MG/DL 01/24/2025 4:25 PM CDT [facility] SODIUM S/P/B 150(H) 136 - 145 MMOL/L 01/24/2025 4:25 PM CDT [facility] POTASSIUM S/P/B 2.6(LL) 3.5 - 5.1 MMOL/L 01/24/2025 4:25 PM CDT [facility] Comment: Critical Result(s) Called at: 16:23:54 on 01/24/2025 by: AIDE ROSE to and read back by: RUTH ADHIKARI CHLORIDE S/P/B 110 97 - 115 MMOL/L 01/24/2025 4:25 PM CDT [facility] CO2 40.8(HH) 21 - 32 MMOL/L 01/24/2025 4:25 PM CDT [facility] Comment: Critical Result(s) Called at: 16:24:06 on 01/24/2025 by: AIDE ROSE to and read back by: RUTH ADHIKARI CALCIUM S/P/B 9.4 8.5 - 10.1 MG/DL 01/24/2025 4:25 PM CDT [facility] ANION GAP NOT CALCULATED 2 - 10 MMOL/L 01/24/2025 4:25 PM CDT [facility] BUN CREATININE RATIO 30.0(H) 6 - 26 01/24/2025 4:25 PM CDT [facility] GFR ESTIMATE >90 >90 ML/MIN/1. 73 M2 01/24/2025 4:25 PM CDT [facility] Comment: NOTE: eGFR is not calculated for patients <18 years of age or gender unknown. This is an estimated GFR calculation using the new CKD EPI creatinine equation without race and so does not require a correction factor for race. This estimated GFR should not be used for calculating drug doses. 01/24/2025 3:30 PM CDT Lexus Barroso MD LABORATORY Final Result [facility] [address] [place] [address], [place] [phone] * (ABNORMAL) BASIC METABOLIC PANEL (01/24/2025 9:01 AM CDT) GLUCOSE 77 70 - 99 MG/DL 01/24/2025 9:49 AM CDT [facility] BUN 13 7 - 18 MG/DL 01/24/2025 9:49 AM CDT [facility] CREATININE S/P/B 0.47(L) 0.55 - 1.02 MG/DL 01/24/2025 9:49 AM CDT [facility] SODIUM S/P/B 150(H) 136 - 145 MMOL/L 01/24/2025 9:49 AM CDT [facility] POTASSIUM S/P/B 5.2(H) 3.5 - 5.1 MMOL/L 01/24/2025 9:49 AM CDT [facility] CHLORIDE S/P/B 112 97 - 115 MMOL/L 01/24/2025 9:49 AM CDT [facility] CO2 34.2(H) 21 - 32 MMOL/L 01/24/2025 9:49 AM CDT [facility] CALCIUM S/P/B 9.6 8.5 - 10.1 MG/DL 01/24/2025 9:49 AM CDT [facility] ANION GAP 3.8 2 - 10 MMOL/L 01/24/2025 9:49 AM CDT [facility] BUN CREATININE RATIO 27.9(H) 6 - 26 01/24/2025 9:49 AM CDT [facility] GFR ESTIMATE >90 >90 ML/MIN/1.7 3 M2 01/24/2025 9:49 AM CDT [facility] Comment: NOTE: eGFR is not calculated for patients <18 years of age or gender unknown. This is an estimated GFR calculation using the new CKD EPI creatinine equation without race and so does not require a correction factor for race. This estimated GFR should not be used for calculating drug doses. 01/24/2025 9:01 AM CDT Lexus Barroso MD LABORATORY Final Result [facility] [address] [place] [address], [place] [phone] * (ABNORMAL) BASIC METABOLIC PANEL (01/24/2025 6:12 AM CDT) GLUCOSE 82 70 - 99 MG/DL 01/24/2025 7:14 AM CDT [facility] BUN 13 7 - 18 MG/DL 01/24/2025 7:14 AM CDT [facility] CREATININE S/P/B 0.49(L) 0.55 - 1.02 MG/DL 01/24/2025 7:14 AM CDT [facility] SODIUM S/P/B 154(H) 136 - 145 MMOL/L 01/24/2025 7:14 AM CDT [facility] POTASSIUM S/P/B 2.8(LL) 3.5 - 5.1 MMOL/L 01/24/2025 7:14 AM CDT [facility] Comment: Critical Result(s) Called at: 07:12:56 on 01/24/2025 by: CECILLE BENTON to and read back by:NEAL LOPEZ CHLORIDE S/P/B 113 97 - 115 MMOL/L 01/24/2025 7:14 AM CDT [facility] CO2 34.7(H) 21 - 32 MMOL/L 01/24/2025 7:14 AM CDT [facility] CALCIUM S/P/B 9.7 8.5 - 10.1 MG/DL 01/24/2025 7:14 AM CDT [facility] ANION GAP 6.3 2 - 10 MMOL/L 01/24/2025 7:14 AM CDT [facility] BUN CREATININE RATIO 26.4(H) 6 - 26 01/24/2025 7:14 AM T [facility] GFR ESTIMATE >90 >90 ML/MIN/1.7 3 M2 01/24/2025 7:14 AM CDT [facility] Comment: NOTE: eGFR is not calculated for patients <18 years of age or gender unknown. This is an estimated GFR calculation using the new CKD EPI creatinine equation without race and so does not require a correction factor for race. This estimated GFR should not be used for calculating drug doses. 01/24/2025 6:12 AM CDT Shahida Davila MD LABORATORY Final Result [facility] [address] [place] [address], * (ABNORMAL) CBC W/DIFF AUTOMATED (01/24/2025 6:12 AM CDT) WBC 10.90 4.5 - 11.0 x10'3/uL 01/24/2025 6:38 AM CDT [facility] RBC 4.12(L) 4.20 - 5.40 x10'6/uL 01/24/2025 6:38 AM CDT [facility] HGB 11.5(L) 12.0 - 16.0 G/DL 01/24/2025 6:38 AM CDT [facility] HCT 38.7 38.0 - 48.0 % 01/24/2025 6:38 AM CDT [facility] MCV 93.9 81.0 - 99.0 FL 01/24/2025 6:38 AM CDT [facility] MCH 27.9 27.0 - 31.0 PG 01/24/2025 6:38 AM CDT [facility] MCHC 29.7(L) 32.0 - 36.0 G/DL 01/24/2025 6:38 AM CDT [facility] RDW 14.2 11.5 - 14.5 % 01/24/2025 6:38 AM CDT [facility] PLT 238 130 - 400 x10'3/uL 01/24/2025 6:38 AM CDT [facility] MPV 11.0 9.3 - 12.2 FL 01/24/2025 6:38 AM T [facility] DIFFERENTIAL TYPE AUTOMATED DIFFERENTIAL 01/24/2025 6:38 AM CDT [facility] NEUTROPHILS % 81.4 % 01/24/2025 6:38 AM CDT [facility] LYMPHOCYTES % 11.7 % 01/24/2025 6:38 AM T [facility] MONOCYTES % 6.5 % 01/24/2025 6:38 AM CDT [facility] EOSINOPHILS 0.0 % 01/24/2025 6:38 AM CDT [facility] BASOPHILS 0.1 % 01/24/2025 6:38 AM CDT [facility] IMMATURE GRANS % 0.3 % 01/25/20 6:38 AM CDT [facility] ABS. NEUTROPHILS 8.87(H) 1.80 - 7.70 x10'3/uL 01/24/2025 6:38 AM CDT [facility] ABS. LYMPHOCYTES 1.28 1.00 - 4.80 x10'3/uL 01/24/2025 6:38 AM CDT [facility] ABS. MONOCYTES 0.71 0.24 - 0.86 x10'3/uL 01/24/2025 6:38 AM CDT [facility] ABS. EOSINOPHILS 0.00(L) 0.04 - 0.36 x10'3/uL 01/24/2025 6:38 AM CDT [facility] ABS. BASOPHILS 0.01 0.01 - 0.08 x10'3/uL 01/24/2025 6:38 AM CDT [facility] ABS. IMMATURE GRANULOCYTES 0.03 0.00 - 0.49 x10'3/uL 01/24/2025 6:38 AM CDT [facility] 01/24/2025 6:12 AM CDT Shahida Davila MD LABORATORY Final Result [facility] [address] [place] [address], * Vancomycin Random Level (01/24/2025 6:12 AM CDT) VANCOMYCIN RANDOM 8.1 MCG/ML 01/24/2025 7:14 AM CDT [facility] Comment:NO THERAPEUTIC RANGE AVAILABLE LAST DOSE UNKNOWN LAST DOSE 01/24/2025 8:11 AM CDT [facility] 01/24/2025 6:12 AM CDT Shahida Davila MD LABORATORY Final Result [facility] [address] [place] [address], [place] [phone] * XR CHEST PORTABLE (01/24/2025 4:42 AM CDT) Anatomical Region Laterality Modality Chest Radiographic Yolis ging 01/24/2025 5:16 AM CDT Impressions 01/24/2025 5:17 AM CDT IMPRESSION: Mild improved aeration of the right lung with significant infiltrate persisting in the mid and lower lung. Referred By: Interpreted By: Kurt Crowder MD, 01/24/2025 5:16 AM Narrative 01/24/2025 5:[address]T [address] [address] Examination: XR CHEST PORTABLE Exam time: 01/24/2025 4:35 AM Indication: Hypoxia Comparison: Chest 01/23/2025 Findings: Semiupright AP view of the chest was obtained. The heart size is normal. Mild improved aeration of the right lung with significant infiltrate persisting in the mid and lower lung. Right hemidiaphragm elevation is noted. There is no pleural effusion or pneumothorax. Procedure Note Kurt Crowder MD - 01/24/[address] [id number] Examination: XR CHEST PORTABLE Exam time: 01/24/2025 4:35 AM Indication: Hypoxia Comparison: Chest 01/23/2025 Findings: Semiupright AP view of the chest was obtained. The heart sizeis normal. Mild improved aeration of the right lung with significantinfiltrate persisting in the mid and lower lung. Right hemidiaphragmelevation is noted. There is no pleural effusion or pneumothorax. IMPRESSION: Mild improved aeration of the right lung with significantinfiltrate persisting in the mid and lower lung. Referred By: Interpreted By: Kurt Crowder MD, 01/24/2025 5:16 AM us Elvis Sosa DO GENERAL IMAGING Final Resu lt * (ABNORMAL) ARTERIAL BLOOD GAS (01/23/2025 9:57 PM CDT) PH ARTERIAL 7.49(H) 7.35 - 7.45 01/23/2025 10:44 PM CDT [facility] PCO2 60.0(H) 35.0 - 45.0 MMHG 01/23/2025 10:44 PM CDT [facility] PO2 77.0(L) 83.0 - 108.0 MMHG 01/23/2025 10:44 PM CDT [facility] TOTAL CO2 ARTERIAL 47.5(H) 19.0 - 24.0 MMOL/L 01/23/2025 10:44 PM CDT [facility] BASE EXCESS 18.9(H) 0.0 - 3.0 MMOL/L 01/23/2025 10:44 PM CDT [facility] O2 SATURATION 96 94.0 - 98.0 % 01/23/2025 10:44 PM CDT [facility] BICARB ARTERIAL 45.7(H) 21.0 - 28.0 MMOL/L 01/23/2025 10:44 PM CDT [facility] O2 ADMIN ARTERIAL 30 01/23/2025 10:42 PM CDT [facility] DRAW SITE ARTERIAL RT BRACH 01/23/2025 10:42 PM CDT [facility] 01/23/2025 9:57 PM CDT Eloisa Hi MD LABORATORY Final Resul t Performing Organization Address City/[facility]/ZIP Co de Phone Number [facility] [address] [place] [address], * (ABNORMAL) PRO-BRAIN NATRIURETIC PEPTIDE (01/23/2025 9:20 PM CDT) PRO-B TYPE NATRIURETIC PEPTIDE 812(H) <125 PG/ML 01/23/2025 10:10 PM CDT [facility] Comment: CUT POINTS ESTABLISHED BY [employer] ON NT PROBNP (ICON) STUDY (2006). AGE INDEPENDENT: <300 PG/ML HAS A 99% NEGATIVE PREDICTIVE VALUE FOR EXCLUDING ACUTE CHF <50 YEARS: >450 PG/ML IS CONSISTENT WITH ACUTE CHF 50-75 YEARS: >900 PG/ML IS CONSISTENT WITH ACUTE CHF >75 YEARS: >1800 PG/ML IS CONSISTENT WITH ACUTE CHF IN PATIENTS WITH RENAL INSUFFICIENCY (GFR <60), >1200 PG/ML YIELDS A DIAGNOSTIC SENSITIVITY AND SPECIFICITY OF 89% AND 72% FOR ACUTE CHF. 01/23/2025 9:20 PM CDT Elvis Sosa DO LABORATORY Final Resu lt [facility] [address] [place] [address], [place] [phone] * PROCALCITONIN (PCT) (01/23/2025 9:20 PM CDT) Procalcitonin <0.05 0.00 - 0.49 NG/ML 01/24/2025 2:57 AM CDT [facility] 01/23/2025 9:20 PM CDT Elvis Sosa DO LABORATORY Final Resu lt [facility] [address] [place] [address], [place] [phone] * MRSA SCREENING (01/23/2025 9:20 PM CDT) SPEC DESCRIPTION NASAL 01/23/2025 9:40 PM CDT [facility] SPECIAL REQUESTS NO SPECIAL REQUEST 01/23/2025 9:40 PM CDT [facility] CULTURE RESULT NO METHICILLIN RESISTANT STAPHYLOCOCCUS AUREUS ISOLATED 01/25/2025 6:38 AM CDT [facility] SPECIMEN FROM INTERNAL NOSE / Unknown 01/23/2025 9:20 PM CDT 01/23/2025 9:41 PM CDT Shahida Davila MD MICROBIOLOGY - GENERAL ORDER CHATO Final Result Performing Organization Address City/[facility]/ZIP Co de Phone Number [facility] [address] [place] [address], [place] [phone] * POCT glucose (01/23/2025 8:54 PM CDT) GLUCOSE POC 97 70 - 99 mg/dL 01/23/2025 9:12 PM CDT [facility] 01/23/2025 8:54 PM CDT Shahida Davila MD POCT ORDERABLES - DEVICE Fin al Result Performing Organization Address City/[facility]/ZIP Co de Phone Number [facility] [address] [place] [address], [place] [phone] * RESPIRATORY PCR PANEL 2 (01/23/2025 3:01 PM CDT) Pathologist [facility] [place] ADENOVIRUS PCR (RESP) NOT DETECTED NOT DETECTED 01/23/2025 4:19 PM CDT [facility] CORONAVIRUS 229E PCR (RESP) NOT DETECTED NOT DETECTED 01/23/2025 4:19 PM CDT [facility] CORONAVIRUS HKU1 PCR (RESP) NOT DETECTED NOT DETECTED 01/23/2025 4:19 PM CDT [facility] CORONAVIRUS NL63 PCR (RESP) NOT DETECTED NOT DETECTED 01/23/2025 4:19 PM CDT [facility] CORONAVIRUS OC43 PCR (RESP) NOT DETECTED NOT DETECTED 01/23/2025 4:19 PM CDT [facility] METAPNEUMOVIRUS PCR (RESP) NOT DETECTED NOT DETECTED 01/23/2025 4:19 PM CDT [facility] RHINOVIRUS/ENTEROV IRUS PCR (RESP) NOT DETECTED NOT DETECTED 01/23/2025 4:19 PM CDT [facility] INFLUENZA A PCR (RESP) NOT DETECTED NOT DETECTED 01/23/2025 4:19 PM CDT [facility] INFLUENZA B PCR (RESP) NOT DETECTED NOT DETECTED 01/23/2025 4:19 PM CDT [facility] PARAINFLUENZA 1 PCR (RESP) NOT DETECTED NOT DETECTED 01/23/2025 4:19 PM CDT [facility] PARAINFLUENZA 2 PCR (RESP) NOT DETECTED NOT DETECTED 01/23/2025 4:19 PM CDT [facility] PARAINFLUENZA 3 PCR (RESP) NOT DETECTED NOT DETECTED 01/23/2025 4:19 PM CDT [facility] PARAINFLUENZA 4 PCR (RESP) NOT DETECTED NOT DETECTED 01/23/2025 4:19 PM CDT [facility] RSV PCR (RESP) NOT DETECTED NOT DETECTED 01/23/2025 4:19 PM CDT [facility] B PARAPERTUSIS PCR (RESP) NOT DETECTED NOT DETECTED 01/23/2025 4:19 PM CDT [facility] BORDETELLA PERTUSSIS PCR (RESP) NOT DETECTED NOT DETECTED 01/23/2025 4:19 PM CDT [facility] CHLAMYDOPHILA PNEUMONIAE PCR (RESP) NOT DETECTED NOT DETECTED 01/23/2025 4:19 PM CDT [facility] MYCOPLASMA PNEUMONIAE PCR (RESP) NOT DETECTED NOT DETECTED 01/23/2025 4:19 PM CDT [facility] CORONAVIRUS SARS COV 2 PCR (RESP) NOT DETECTED NOT DETECTED 01/23/2025 4:19 PM CDT [facility] NASOPHARYNGEAL SWAB / Unknown 01/23/2025 3:01 PM CDT us Shahida Davila MD MICROBIOLOGY - GENERAL ORDER CHATO Final Result [facility] [address] [place] [address], [place] [phone] * CT HEAD WO CON (01/23/2025 2:50 PM CDT) Anatomical Region Laterality Modality Head Computed Tomogra phy 01/23/2025 4:26 PM CDT Impressions 01/23/2025 4:33 PM CDT =====IMPRESSION:===== 1. Stable noncontrast CT of the head; no acute intracranial process identified. 2. Chronic senescent changes including mild volume loss and cerebral white matter chronic small vessel ischemic change. New 3. Nonspecific generalized calvarial hyperostosis. (CT has limited sensitivity for detection of acute ischemia). If acute ischemia is of clinical concern MRI can be considered. Ordered By: SHAHIDA DAVILA Interpreted By: Henrry Luna MD, 01/23/2025 4:26 PM Narrative 01/23/2025 4:33 PM CDT [facility] [address] [place], [place] [address] Exam: CT head without contrast Exam Date/Time: 01/23/2025 2:43 PM Indication: 69 female. Altered mental state, right facial droop Comparison: CT head 01/20/2025 Technique: Computed tomography of the head performed without contrast from the vertex to the skull base. A dose lowering technique was used for this procedure, which may include, but is not limited to, dose reduction technique, automated exposure control, the use of iterative reconstruction, and ALARA (As Low As Reasonably Achievable) / Image Gently techniques. CT findings: Stable mild central predominant volume loss with commensurate prominence of ventricles and sulci. No intracranial hemorrhage, extra-axial collection, mass effect or midline shift. Minimal periventricular and patchy subcortical white matter hypodensities are nonspecific and probably related to early small vessel ischemic change. . No established cortical or vascular territorial infarct. Steve-white differentiation is preserved. No new abnormal parenchymal density. Steve-white association is normal. No other abnormal parenchymal density seen. Patent basilar cisterns. Visualized posterior fossa is grossly unremarkable.. Visualized orbits and orbital structures are unremarkable. Imaged portions of the paranasal sinuses and mastoid air cells are clear. No scalp soft tissue swelling or hematoma identified. Generalized calvarial hyperostosis. Procedure Note Henrry Luna MD - 01/23/2025 [facility] [address] [place], [place] [address] Exam: CT head without contrast Exam Date/Time: 01/23/2025 2:43 PM Indication: 69 female. Altered mental state, right facial droop Comparison: CT head 01/20/2025 Technique: Computed tomography of the head performed without contrast fromthe vertex to the skull base. A dose lowering technique was used for thisprocedure, which may include, but is not limited to, dose reductiontechnique, automated exposure control, the use of iterativereconstruction, and ALARA (As Low As Reasonably Achievable) / Image Gentlytechniques. CT findings: Stable mild central predominant volume loss with commensurate prominenceof ventricles and sulci. No intracranial hemorrhage, extra-axial collection, mass effect or midlineshift. Minimal periventricular and patchy subcortical white matter hypodensitiesare nonspecific and probably related to early small vessel ischemicchange. . No established cortical or vascular territorial infarct.Steve-white differentiation is preserved. No new abnormal parenchymal density. Steve-white association is normal. Noother abnormal parenchymal density seen. Patent basilar cisterns. Visualized posterior fossa is grosslyunremarkable.. Visualized orbits and orbital structures are unremarkable. Imaged portionsof the paranasal sinuses and mastoid air cells are clear. No scalp soft tissue swelling or hematoma identified. Generalized calvarial hyperostosis. =====IMPRESSION:===== 1. Stable noncontrast CT of the head; no acute intracranial processidentified. 2. Chronic senescent changes including mild volume loss and cerebral whitematter chronic small vessel ischemic change. New 3. Nonspecific generalized calvarial hyperostosis. (CT has limited sensitivity for detection of acute ischemia). If acuteischemia is of clinical concern MRI can be considered. Ordered By: SHAHIDA DAVILA Interpreted By: Henrry Luna MD, 01/23/2025 4:26 PM us Shahida Davila MD CT Final Result * CT CHEST WO CON (01/23/2025 2:50 PM CDT) Anatomical Region Laterality Modality Chest Computed Tomogra phy 01/23/2025 4:36 PM CDT Impressions 01/23/2025 4:40 PM CDT Impression: 1. Interval development of right lung multifocal multilobar airspace consolidation with air bronchograms in the right upper, middle and lower lobes. 2. Chronic moderate elevation right hemidiaphragm, uncertain etiology. 3. Mild anemia. Ordered By: SHAHIDA DAVILA Interpreted By: Henrry Luna MD, 01/23/2025 4:36 PM Narrative 01/23/2025 4:[address] [address] Exam: CT CHEST WO CON Exam Date/Time: 01/23/2025 2:43 PM Indication: 69-year-old female. Pneumonia Comparison: Chest x-ray 01/23/2025 and prior. CTA chest 01/20/2025 Technique: Computed tomography of the chest performed without contrast. A dose lowering technique was used for this procedure, which may include, but is not limited to, dose reduction technique, automated exposure control, the use of iterative reconstruction, and ALARA (As Low As Reasonably Achievable) / Image Gently techniques.. CT findings: Support tubes and lines: None. Base of neck/thyroid: Negative. MEDIASTINUM: Heart: Upper normal cardiac size. Subtle decreased cardiac blood per attenuation suggesting anemia. No pericardial effusion. Lymph nodes: No supraclavicular, axillary, internal mammary, mediastinal, or hilar adenopathy. VASCULATURE Unremarkable thoracic aorta no atherosclerosis. No central pulmonary arterial enlargement.. LUNGS AND PLEURA Lungs: Multifocal multilobar airspace consolidation in the right posterior upper lobe, right middle lobe and right lower lobe with air bronchograms compatible with pneumonic consolidation, new since 01/20/2025. Dependent lung base mild subsegmental atelectasis. Central airways appear clear. No significant mucous plugging seen Pleura: No pleural effusion, thickening, or calcification. UPPER ABDOMEN No acute findings on limited noncontrast assessment. BONES/SOFT TISSUES Minor endplate degenerative spurring. No concerning focal lytic or blastic lesion. Procedure Note Henrry Luna MD - 01/23/[address] [address] Exam: CT CHEST WO CON Exam Date/Time: 01/23/2025 2:43 PM Indication: 69-year-old female. Pneumonia Comparison: Chest x-ray 01/23/2025 and prior. CTA chest 01/20/2025 Technique: Computed tomography of the chest performed without contrast. Adose lowering technique was used for this procedure, which may include,but is not limited to, dose reduction technique, automated exposurecontrol, the use of iterative reconstruction, and ALARA (As Low AsReasonably Achievable) / Image Gently techniques.. CT findings: Support tubes and lines: None. Base of neck/thyroid: Negative. MEDIASTINUM: Heart: Upper normal cardiac size. Subtle decreased cardiac blood perattenuation suggesting anemia. No pericardial effusion. Lymph nodes: No supraclavicular, axillary, internal mammary, mediastinal,or hilar adenopathy. VASCULATURE Unremarkable thoracic aorta no atherosclerosis. No central pulmonaryarterial enlargement.. LUNGS AND PLEURA Lungs: Multifocal multilobar airspace consolidation in the right posteriorupper lobe, right middle lobe and right lower lobe with air bronchogramscompatible with pneumonic consolidation, new since 01/20/2025. Dependent lung base mild subsegmental atelectasis. Central airways appear clear. No significant mucous plugging seen Pleura: No pleural effusion, thickening, or calcification. UPPER ABDOMEN No acute findings on limited noncontrast assessment. BONES/SOFT TISSUES Minor endplate degenerative spurring. No concerning focal lytic or blasticlesion. Impression: 1. Interval development of right lung multifocal multilobar airspaceconsolidation with air bronchograms in the right upper, middle and lowerlobes. 2. Chronic moderate elevation right hemidiaphragm, uncertain etiology. 3. Mild anemia. Ordered By: SHAHIDA DAVILA Interpreted By: Henrry Luna MD, 01/23/2025 4:36 PM us Shahida Davila MD CT Final Result * XR CHEST PORTABLE (01/23/2025 2:12 PM CDT) Anatomical Region Laterality Modality Chest Radiographic Yolis ging 01/23/2025 2:18 PM CDT Impressions 01/23/2025 2:19 PM CDT IMPRESSION: 1. INTERVAL DEVELOPMENT OF NEW ABNORMAL PARENCHYMAL OPACITY RIGHT MIDDLE AND LOWER LUNG CONSISTENT WITH ACUTE PNEUMONIA. Signed: Star Catalan MD Referred By: Interpreted By: Star Catalan MD, 01/23/2025 2:18 PM Narrative 01/23/2025 2:19 PM CDT [place] [address] PATIENT NAME: MARIA DEL CARMEN GOLDMAN EXAM: Chest one view DATE OF EXAM: 01/23/2025 COMPARISON EXAM: 01/20/2025 INDICATION: Dyspnea TECHNIQUE: AP chest FINDINGS: Heart size within normal limits. Pulmonary vasculature unremarkable. Interval development of extensive new abnormal parenchymal opacity right mid and lower lung consistent with acute pneumonia. Left lung remains clear. No significant pleural effusion. Procedure Note Star Catalan MD - 01/23/2025 [place] [address] PATIENT NAME: MARIA DEL CARMEN GOLDMAN EXAM: Chest one view DATE OF EXAM: 01/23/2025 COMPARISON EXAM: 01/20/2025 INDICATION: Dyspnea TECHNIQUE: AP chest FINDINGS: Heart size within normal limits. Pulmonary vasculatureunremarkable. Interval development of extensive new abnormal parenchymalopacity right mid and lower lung consistent with acute pneumonia. Leftlung remains clear. No significant pleural effusion. IMPRESSION: 1. INTERVAL DEVELOPMENT OF NEW ABNORMAL PARENCHYMAL OPACITY RIGHT MIDDLEAND LOWER LUNG CONSISTENT WITH ACUTE PNEUMONIA. Signed: Star Catalan MD Referred By: Interpreted By: Star Catalan MD, 01/23/2025 2:18 PM Shahida Davila MD GENERAL IMAGING Final Result * (ABNORMAL) COMPREHENSIVE METABOLIC PANEL (01/22/2025 6:49 AM CDT) [facility] GLUCOSE 99 70 - 99 MG/DL 01/22/2025 8:20 AM CDT [facility] BUN 15 7 - 18 MG/DL 01/22/2025 8:20 AM CDT [facility] CREATININE S/P/B 0.43(L) 0.55 - 1.02 MG/DL 01/22/2025 8:20 AM CDT [facility] SODIUM S/P/B 147(H) 136 - 145 MMOL/L 01/22/2025 8:20 AM CDT [facility] POTASSIUM S/P/B 3.7 3.5 - 5.1 MMOL/L 01/22/2025 8:20 AM CDT [facility] CHLORIDE S/P/B 110 97 - 115 MMOL/L 01/22/2025 8:20 AM CDT [facility] CO2 33.2(H) 21 - 32 MMOL/L 01/22/2025 8:20 AM CDT [facility] CALCIUM S/P/B 9.0 8.5 - 10.1 MG/DL 01/22/2025 8:20 AM CDT [facility] BILIRUBIN TOTAL S/P/B 0.6 0.2 - 1.2 MG/DL 01/22/2025 8:20 AM CDT [facility] Comment: THIS ASSAY IS NOT RECOMMENDED FOR PATIENTS UNDERGOING TREATMENT WITH ELTROMBOPAG DUE TO THE POTENTIAL FOR FALSELY ELEVATED RESULTS. TOTAL PROTEIN S/P/B 7.8 6.4 - 8.2 G/DL 01/22/2025 8:20 AM CDT [facility] ALBUMIN S/P/B 2.3(L) 3.4 - 5.0 G/DL 01/22/2025 8:20 AM CDT [facility] AST 26 15 - 37 U/L 01/22/2025 8:20 AM CDT [facility] ALT 32 14 - 55 U/L 01/22/2025 8:20 AM CDT [facility] ALKALINE PHOSPHATASE S/P/B 92 50 - 136 U/L 01/22/2025 8:20 AM CDT [facility] ANION GAP 3.8 2 - 10 MMOL/L 01/22/2025 8:20 AM CDT [facility] BUN CREATININE RATIO 34.6(H) 6 - 26 01/22/2025 8:20 AM CDT [facility] A/G RATIO 0.4(L) 1.0 - 2.0 RATIO 01/22/2025 8:20 AM CDT [facility] GFR ESTIMATE >90 >90 ML/MIN/1.7 3 M2 01/22/2025 8:20 AM CDT [facility] Comment: NOTE: eGFR is not calculated for patients <18 years of age or gender unknown. This is an estimated GFR calculation using the new CKD EPI creatinine equation without race and so does not require a correction factor for race. This estimated GFR should not be used for calculating drug doses. 01/22/2025 6:49 AM CDT Shahida Davila MD LABORATORY Final Result [facility] [address] [place] [address], [place] [phone] * (ABNORMAL) CBC W/DIFF AUTOMATED (01/22/2025 6:49 AM CDT) WBC 11.23(H) 4.5 - 11.0 x10'3/uL 01/22/2025 7:26 AM CDT [facility] RBC 4.07(L) 4.20 - 5.40 x10'6/uL 01/22/2025 7:26 AM CDT [facility] HGB 11.5(L) 12.0 - 16.0 G/DL 01/22/2025 7:26 AM CDT [facility] HCT 37.5(L) 38.0 - 48.0 % 01/22/2025 7:26 AM CDT [facility] MCV 92.1 81.0 - 99.0 FL 01/22/2025 7:26 AM CDT [facility] MCH 28.3 27.0 - 31.0 PG 01/22/2025 7:26 AM CDT [facility] MCHC 30.7(L) 32.0 - 36.0 G/DL 01/22/2025 7:26 AM CDT [facility] RDW 13.7 11.5 - 14.5 % 01/22/2025 7:26 AM CDT [facility] PLT 225 130 - 400 x10'3/uL 01/22/2025 7:26 AM CDT [facility] MPV 10.7 9.3 - 12.2 FL 01/22/2025 7:26 AM CDT [facility] DIFFERENTIAL TYPE MANUAL DIFFERENTIAL 01/22/2025 7:51 AM CDT [facility] SEG NEUTROPHILS 94 % 7:51 AM CDT [facility] LYMPHOCYTES 2 % 01/22/2025 7:51 AM CDT [facility] MONOCYTES 2 % 01/22/2025 7:51 AM CDT [facility] MYELOCYTES 2 % 01/22/2025 7:51 AM CDT [facility] ABS. NEUTROPHILS 10.56(H) 1.80 - 7.70 x10'3/uL 01/22/2025 7:51 AM CDT [facility] ABS. LYMPHOCYTES 0.22(L) 1.00 - 4.80 x10'3/uL 01/22/2025 7:51 AM CDT [facility] ABS. MONOCYTES 0.22(L) 0.24 - 0.86 x10'3/uL 01/22/2025 7:51 AM CDT [facility] ABS. MYELOCYTES 0.22(H) 0.00 x10'3/uL 01/22/2025 7:51 AM CDT [facility] RBC MORPHOLOGY RBC MORPHOLOGY APPEARS NORMAL. SLIDE REVIEWED. 01/22/2025 7:51 AM CDT [facility] PLT EST. ADEQUATE 01/22/2025 7:51 AM CDT [facility] 01/22/2025 6:49 AM CDT Shahida Davila MD LABORATORY Final Result [facility] [address] [place] [id number], * (ABNORMAL) ARTERIAL BLOOD GAS (01/20/2025 2:45 PM ST[facility]ER) PH ARTERIAL 7.39 7.35 - 7.45 01/20/2025 2:53 PM [facility] PCO2 68.0(H) 35.0 - 45.0 MMHG 01/20/2025 2:53 PM [facility] PO2 122.0(H) 83.0 - 108.0 MMHG 01/20/2025 2:53 PM [facility] TOTAL CO2 ARTERIAL 43.3(H) 19.0 - 24.0 MMOL/L 01/20/2025 2:53 PM [facility] BASE EXCESS 13.1(H) 0.0 - 3.0 MMOL/L 01/20/2025 2:53 PM [facility] O2 SATURATION 99(H) 94.0 - 98.0 % 01/20/2025 2:53 PM [facility] BICARB ARTERIAL 41.2(H) 21.0 - 28.0 MMOL/L 01/20/2025 2:53 PM [facility] GEOVANNA TEST GEOVANNA TEST PERFORMED 01/20/2025 2:51 PM [facility] O2 ADMIN ARTERIAL 21 01/20/2025 2:51 PM [facility] DRAW SITE ARTERIAL RT RADIAL 01/20/2025 2:51 PM [facility] 01/20/2025 2:45 PM [facility] Moriah ORTIZ LABORATORY Final Result [facility] [address] [place] [address], [place] [phone] * CTA CHEST PE PROTOCOL (01/20/2025 2:19 PM STONE [facility]ER) Anatomical Region Laterality Modality Chest Computed Tomogra phy 01/20/2025 2:28 PM [facility] Impressions 01/20/2025 2:32 PM [facility]ER IMPRESSION: 1. No CT evidence of pulmonary thromboembolism. 2. Dependent secretions and/or mucous plugging in the left mainstem bronchus and left lower lobe bronchi. Patchy bibasilar opacities could be due to atelectasis or infection. 3. Please see above for additional chronic, incidental, and nonemergent findings elsewhere. Referred By: Interpreted By: Vincent Marcus MD, 01/20/2025 2:28 PM Narrative 01/20/2025 2:32 PM [facility] [address] [place] [id number] EXAMINATION: CTA CHEST WITH CONTRAST, PULMONARY EMBOLISM CLINICAL HISTORY: Elevated d-dimer. Shortness of breath. Concern for pulmonary embolism. COMPARISON: 12/13/2024 TECHNIQUE: Computed tomography angiography was performed of the chest after administration of intravenous contrast, 84 mL Isovue-370, according to pulmonary embolism protocol. Axial, multiplanar, and 3-D/MIP images were reconstructed. A dose lowering technique was used for this procedure, which may include, but is not limited to, dose reduction technique, automated exposure control, the use of iterative reconstruction, and ALARA (As Low As Reasonably Achievable) / Image Gently techniques. Maximum intensity projection images were obtained. FINDINGS: No filling defects identified within the main pulmonary artery, right or left pulmonary artery branches, lobar pulmonary arteries, or segmental pulmonary artery branches to suggest CT evidence of pulmonary thromboembolism. Normal heart size. No pleural or pericardial effusions. No bulky axillary, mediastinal, or hilar lymphadenopathy. Trachea is patent. Dependent secretions and/or mucous plugging noted in the left mainstem bronchus and lower lobe bronchi. Patchy bibasilar opacities. No suspicious lung mass. No pneumothorax. Imaged portions of the upper abdomen reveal and sludge or stones of the gallbladder. Colonic diverticulosis. Osseous structures reveal degenerative changes in the spine. Procedure Note Vincent Marcus MD - 01/20/2025 [facility] [address] [place], [place] [address] EXAMINATION: CTA CHEST WITH CONTRAST, PULMONARY EMBOLISM CLINICAL HISTORY: Elevated d-dimer. Shortness of breath. Concern forpulmonary embolism. COMPARISON: 12/13/2024 TECHNIQUE: Computed tomography angiography was performed of the chestafter administration of intravenous contrast, 84 mL Isovue-370, accordingto pulmonary embolism protocol. Axial, multiplanar, and 3-D/MIP imageswere reconstructed. A dose lowering technique was used for this procedure, which may include,but is not limited to, dose reduction technique, automated exposurecontrol, the use of iterative reconstruction, and ALARA (As Low AsReasonably Achievable) / Image Gently techniques. Maximum intensityprojection images were obtained. FINDINGS: No filling defects identified within the main pulmonary artery, right orleft pulmonary artery branches, lobar pulmonary arteries, or segmentalpulmonary artery branches to suggest CT evidence of pulmonarythromboembolism. Normal heart size. No pleural or pericardial effusions.No bulky axillary, mediastinal, or hilar lymphadenopathy. Trachea ispatent. Dependent secretions and/or mucous plugging noted in the leftmainstem bronchus and lower lobe bronchi. Patchy bibasilar opacities. Nosuspicious lung mass. No pneumothorax. Imaged portions of the upper abdomen reveal and sludge or stones of thegallbladder. Colonic diverticulosis. Osseous structures reveal degenerative changes in the spine. IMPRESSION: 1. No CT evidence of pulmonary thromboembolism. 2. Dependent secretions and/or mucous plugging in the left mainstembronchus and left lower lobe bronchi. Patchy bibasilar opacities could bedue to atelectasis or infection. 3. Please see above for additional chronic, incidental, and nonemergentfindings elsewhere. Referred By: Interpreted By: Vincent Marcus MD, 01/20/2025 2:28 PM us Moriah ORTIZ CT Final Result * CULTURE BACTERIA, BLOOD (01/20/2025 1:39 PM ST[facility]ER) SPEC DESCRIPTION BLOOD 01/20/2025 12:48 PM [facility] SPECIAL REQUESTS NO SPECIAL REQUEST 01/20/2025 12:48 PM [facility] CULTURE RESULT NO GROWTH 5 DAYS 01/25/2025 3:04 PM CDT [facility] BLOOD SPECIMEN OBTAINED FOR BLOOD CULTURE / Unknown 01/20/2025 1:39 PM ST[facility]ER 01/20/2025 1:53 PM ST[facility] P[facility]ER us Moriah ORTIZ MICROBIOLOGY - GENERAL ORDERA BLES Final Result [facility] [address] [place] [address], [place] [phone] * LACTIC ACID W REFLEX (SEPSIS) (01/20/2025 1:39 PM STONE PAVER) [facility] LACTIC ACID VENOUS 1.9 0.4 - 2.0 MMOL/L 01/20/2025 2:23 PM [facility] 01/20/2025 1:39 PM ST[facility] P[facility]ER Moriah ORTIZ LABORATORY Final Result [facility] [address] [place] [address], * RESPIRATORY PCR PANEL 2 (01/20/2025 1:39 PM STONE PAVER) [facility] ADENOVIRUS PCR (RESP) NOT DETECTED NOT DETECTED 01/20/2025 2:49 PM [facility] CORONAVIRUS 229E PCR (RESP) NOT DETECTED NOT DETECTED 01/20/2025 2:49 PM [facility] CORONAVIRUS HKU1 PCR (RESP) NOT DETECTED NOT DETECTED 01/20/2025 2:49 PM [facility] CORONAVIRUS NL63 PCR (RESP) NOT DETECTED NOT DETECTED 01/20/2025 2:49 PM [facility] CORONAVIRUS OC43 PCR (RESP) NOT DETECTED NOT DETECTED 01/20/2025 2:49 PM [facility] METAPNEUMOVIRUS PCR (RESP) NOT DETECTED NOT DETECTED 01/20/2025 2:49 PM [facility] RHINOVIRUS/ENTEROV IRUS PCR (RESP) NOT DETECTED NOT DETECTED 01/20/2025 2:49 PM [facility] INFLUENZA A PCR (RESP) NOT DETECTED NOT DETECTED 01/20/2025 2:49 PM [facility] INFLUENZA B PCR (RESP) NOT DETECTED NOT DETECTED 01/20/2025 2:49 PM ST[facility] P[facility]ER [facility] PARAINFLUENZA 1 PCR (RESP) NOT DETECTED NOT DETECTED 01/20/2025 2:49 PM [facility]ER [facility] PARAINFLUENZA 2 PCR (RESP) NOT DETECTED NOT DETECTED 01/20/2025 2:49 PM [facility] PARAINFLUENZA 3 PCR (RESP) NOT DETECTED NOT DETECTED 01/20/2025 2:49 PM [facility] PARAINFLUENZA 4 PCR (RESP) NOT DETECTED NOT DETECTED 01/20/2025 2:49 PM [facility] RSV PCR (RESP) NOT DETECTED NOT DETECTED 01/20/2025 2:49 PM [facility] B PARAPERTUSIS PCR (RESP) NOT DETECTED NOT DETECTED 01/20/2025 2:49 PM STONE PAVER [facility] BORDETELLA PERTUSSIS PCR (RESP) NOT DETECTED NOT DETECTED 01/20/2025 2:49 PM STONE P[facility]ER [facility] CHLAMYDOPHILA PNEUMONIAE PCR (RESP) NOT DETECTED NOT DETECTED 01/20/2025 2:49 PM STONE P[facility]ER [facility] MYCOPLASMA PNEUMONIAE PCR (RESP) NOT DETECTED NOT DETECTED 01/20/2025 2:49 PM STONE P[facility]ER [facility] CORONAVIRUS SARS COV 2 PCR (RESP) NOT DETECTED NOT DETECTED 01/20/2025 2:49 PM STONE P[facility]ER [facility] NASOPHARYNGEAL SWAB / Unknown 01/20/2025 1:39 PM STONE PAVER us Moriah ORTIZ MICROBIOLOGY - GENERAL ORDERA BLES Final Result [facility] [address] [place], [place] [address] [phone] * CT HEAD WO CON (01/20/2025 12:25 PM STONE PAVER) Anatomical Region Laterality Modality Head Computed Tomogra phy 01/20/2025 12:2 8 PM STONE PAVER Impressions 01/20/2025 12:29 PM STONE PAVER IMPRESSION: No acute findings Ordered By: MORIAH LORENZO Interpreted By: Gerard Narayan MD, 01/20/2025 12:28 PM Narrative 01/20/2025 12:29 PM STONE PAVER [address] [address] [address] HEAD WITHOUT CONTRAST Exam date: 01/20/2025 12:28 PM Clinical history: Weakness Technique: 3 mm collimated axial images of the head were obtained without contrast. A dose lowering technique was used for this procedure, which may include, but is not limited to, dose reduction technique, automated exposure control, the use of iterative reconstruction, and ALARA (As Low As Reasonably Achievable) / Image Gently techniques. Comparison: reviewed without prior studies available for comparison. FINDINGS: Images of the head demonstrate no evidence of acute or chronic intracranial hemorrhage. No masses or mass effects are seen. The ventricles and sulci are symmetric. There is no evidence of midline shift. Mild small vessel ischemic changes are noted in the periventricular white matter. No extra-axial fluid collections are noted. The basilar cisterns are widely patent Bone windows reveal the paranasal sinuses and mastoid air cells to appear clear. There is no evidence of fracture. Procedure Note Gerard Narayan MD - 01/20/[address] [address] [address] HEAD WITHOUT CONTRAST Exam date: 01/20/2025 12:28 PM Clinical history: Weakness Technique: 3 mm collimated axial images of the head were obtained withoutcontrast. A dose lowering technique was used for this procedure, which mayinclude, but is not limited to, dose reduction technique, automatedexposure control, the use of iterative reconstruction, and ALARA (As LowAs Reasonably Achievable) / Image Gently techniques. Comparison: reviewed without prior studies available for comparison. FINDINGS: Images of the head demonstrate no evidence of acute or chronicintracranial hemorrhage. No masses or mass effects are seen. Theventricles and sulci are symmetric. There is no evidence of midline shift.Mild small vessel ischemic changes are noted in the periventricular whitematter. No extra-axial fluid collections are noted. The basilar cisternsare widely patent Bone windows reveal the paranasal sinuses and mastoid air cells to appearclear. There is no evidence of fracture. IMPRESSION: No acute findings Ordered By: MORIAH LORENZO Interpreted By: Gerard Narayan MD, 01/20/2025 12:28 PM us Moriah Lorenzo PA CT Final Result * XR CHEST PA+LAT (01/20/2025 12:17 PM STONE PAVER) Anatomical Region Laterality Modality Chest Radiographic Yolis ging 01/20/2025 12:2 1 PM STONE PAVER Impressions 01/20/2025 12:22 PM STONE PAVER IMPRESSION: ======== 1. Minimal infiltrates or atelectasis at the right lung base Referred By: Interpreted By: Stephen Wall MD, 01/20/2025 12:21 PM Narrative 01/20/2025 12:22 PM STONE PAVER [facility] [address] [place], [place] [address] Examination: Chest x-ray 2 view Exam Date/Time: 01/20/2025 11:25 AM Reason For Exam: acute sob x today while eating Comparison: Chest radiograph 12/13/2024 Technique: PA and lateral views of the chest were obtained. Findings: Asymmetric volume loss in the right hemithorax similar to prior study with rightward tilting of the patient. No large effusion. No pneumothorax. Heart size stable. No consolidation. Pulmonary vasculature upper limits normal. Minimal infiltrate or atelectasis in the right lung base similar to the prior study. No new infiltrates or consolidative changes. ======== Procedure Note Stephen Wall MD - 01/20/[address] [address] Examination: Chest x-ray 2 view Exam Date/Time: 01/20/2025 11:25 AM Reason For Exam: acute sob x today while eating Comparison: Chest radiograph 12/13/2024 Technique: PA and lateral views of the chest were obtained. Findings: Asymmetric volume loss in the right hemithorax similar to priorstudy with rightward tilting of the patient. No large effusion. Nopneumothorax. Heart size stable. No consolidation. Pulmonaryvasculature upper limits normal. Minimal infiltrate or atelectasis in theright lung base similar to the prior study. No new infiltrates orconsolidative changes. ======== IMPRESSION: ======== 1. Minimal infiltrates or atelectasis at the right lung base Referred By: Interpreted By: Stephen Wall MD, 01/20/2025 12:21 PM us Moriah ORTIZ GENERAL IMAGING Final Result * ECG 12 lead (01/20/2025 11:35 AM STONE PAVER) 01/20/2025 11:3 5 AM STONE PAVER Narrative [facility] RAD - 01/20/2025 12:[address] 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[employer]: : 1955 Requested By: MORIAH LORENZO Order Number: [id number] Reading TENZIN Dodson Measurements Intervals [place] Rate: 85 P: 17 [place]: 149 QRS: -26 QRSD: 91 T: 30 QT: 293 QTc: 349 Interpretive Statements SINUS RHYTHM VOLTAGE CRITERIA FOR LVH [MEETS CRITERIA IN ONE OF: R(aVL), S(V1),R(V5), R(V5/V6)+S(V1)] POSSIBLE SEPTAL MYOCARDIAL INFARCTION [30 ms Q WAVE IN V1/V2], OF INDETERMINATE AGE Compared to ECG 04/27/2024 12:57:46 Left-axis deviation no longer present Myocardial infarct finding still present E PAVER Moriah ORTIZ ECG ORDERABLES Final Result [facility] * MAGNESIUM (01/20/2025 11:06 AM STONE PAVER) MAGNESIUM 1.9 1.8 - 2.4 MG/DL 01/20/2025 12:11 PM STONE PAVER [facility] 01/20/2025 11:0 6 AM STONE PAVER Moriah ORTIZ LABORATORY Final Result Performing Organization Address [facility] Co de Phone Number [facility] [address] [place] [address], [place] [phone] * (ABNORMAL) PRO-BRAIN NATRIURETIC PEPTIDE (01/20/2025 11:06 AM STONE PAVER) PRO-B TYPE NATRIURETIC PEPTIDE 161(H) <125 PG/ML 01/20/2025 12:11 PM STONE PAVER [facility] Comment: CUT POINTS ESTABLISHED BY INTERNATIONAL COLL[employer] ON NT PROBNP (ICON) STUDY (2006). AGE INDEPENDENT: <300 PG/ML HAS A 99% NEGATIVE PREDICTIVE VALUE FOR EXCLUDING ACUTE CHF <50 YEARS: >450 PG/ML IS CONSISTENT WITH ACUTE CHF 50-75 YEARS: >900 PG/ML IS CONSISTENT WITH ACUTE CHF >75 YEARS: >1800 PG/ML IS CONSISTENT WITH ACUTE CHF IN PATIENTS WITH RENAL INSUFFICIENCY (GFR <60), >1200 PG/ML YIELDS A DIAGNOSTIC SENSITIVITY AND SPECIFICITY OF 89% AND 72% FOR ACUTE CHF. 01/20/2025 11:0 6 AM STONE PAVER Moriah ORTIZ LABORATORY Final Result Performing Organization Address City/[facility]/ZIP Co de Phone Number [facility] [address] [place] [id number], [place] [phone] * (ABNORMAL) D-DIMER, QUANTITATIVE (01/20/2025 11:06 AM STONE PAVER) D-DIMER 1,101(HH) 0 - 500 ng{FEU}/mL 01/20/2025 12:21 PM STONE PAVER [facility] Comment: D-Dimer values less than or equal to 500 ng/mL FEU have a negative predictive value of >95% for exclusion of deep vein thrombosis and pulmonary embolism. In patients over 50 (who tend to have higher normal baseline D-Dimer values), recent studies suggest age-adjusted D-Dimer cutoff values (calculated as: age [years] x 10 ng/mL) result in equivalent outcomes and no additional false negative findings. Successful Call: DDIMR called 01/20/2025 12:21 PM to EMERGENCY ROOM ([id number]/CA CARTY) by [id number]. Read Back: Yes 01/20/2025 11:0 6 AM STONE PAVER Moriah ORTIZ LABORATORY Final Result [facility] [address] [place] [phone], * TROPONIN, QUANT (01/20/2025 11:06 AM STONE PAVER) Pathologist [facility] [place] TROPONIN I HIGH SENSITIVITY 7 <54 ng/L 01/20/2025 12:11 PM STONE PAVER [facility] Comment: HIGH DOSES OF BIOTIN, TROPONIN-SPECIFIC AUTOANTIBODIES, AND ANTIBODY THERAPY CONTAINING HAMA MAY INTERFERE WITH THIS TEST RESULT. CORRELATION TO CLINICAL HISTORY AND PRESENTATION RECOMMENDED. 01/20/2025 11:0 6 AM STONE PAVER Moriah ORTIZ LABORATORY Final Result Performing Organization Address City/[facility]/ZIP Co de Phone Number [facility] [address] [place] [address], [place] [phone] * (ABNORMAL) COMPREHENSIVE METABOLIC PANEL (01/20/2025 11:06 AM [facility] Signature GLUCOSE 111(H) 70 - 99 MG/DL 01/20/2025 12:11 PM [facility] BUN 6(L) 7 - 18 MG/DL 01/20/2025 12:11 PM [facility] CREATININE S/P/B 0.52(L) 0.55 - 1.02 MG/DL 01/20/2025 12:11 PM [facility] SODIUM S/P/B 139 136 - 145 MMOL/L 01/20/2025 12:11 PM [facility] POTASSIUM S/P/B 3.3(L) 3.5 - 5.1 MMOL/L 01/20/2025 12:11 PM [facility] CHLORIDE S/P/B 99 97 - 115 MMOL/L 01/20/2025 12:11 PM [facility] CO2 40.5(HH) 21 - 32 MMOL/L 01/20/2025 12:11 PM [facility] Comment: Critical Result(s) Called at: 12:10:51 on 01/20/2025 by: AIDE ROSE to and read back by: [place] C[place] CALCIUM S/P/B 8.8 8.5 - 10.1 MG/DL 01/20/2025 12:11 PM [facility] BILIRUBIN TOTAL S/P/B 0.3 0.2 - 1.2 MG/DL 01/20/2025 12:11 PM [facility] Comment: THIS ASSAY IS NOT RECOMMENDED FOR PATIENTS UNDERGOING TREATMENT WITH ELTROMBOPAG DUE TO THE POTENTIAL FOR FALSELY ELEVATED RESULTS. TOTAL PROTEIN S/P/B 7.5 6.4 - 8.2 G/DL 01/20/2025 12:11 PM [facility] ALBUMIN S/P/B 2.6(L) 3.4 - 5.0 G/DL 01/20/2025 12:11 PM [facility] AST 16 15 - 37 U/L 01/20/2025 12:11 PM [facility] ALT 26 14 - 55 U/L 01/20/2025 12:11 PM [facility] ALKALINE PHOSPHATASE S/P/B 101 50 - 136 U/L 01/20/2025 12:11 PM [facility] ANION GAP NOT CALCULATED 2 - 10 MMOL/L 01/20/2025 12:11 PM [facility] BUN CREATININE RATIO 11.6 6 - 26 01/20/2025 12:11 PM [facility] A/G RATIO 0.5(L) 1.0 - 2.0 RATIO 01/20/2025 12:11 PM [facility] GFR ESTIMATE >90 >90 ML/MIN/1. 73 M2 01/20/2025 12:11 PM [facility] Comment: NOTE: eGFR is not calculated for patients <18 years of age or gender unknown. This is an estimated GFR calculation using the new CKD EPI creatinine equation without race and so does not require a correction factor for race. This estimated GFR should not be used for calculating drug doses. 01/20/2025 11:0 6 AM STONE PAVER us Moriah ORTIZ LABORATORY Final Result [facility] [address] [place] [address], [place] [phone] * (ABNORMAL) CBC W/DIFF AUTOMATED (01/20/2025 11:06 AM STONE PAVER) WBC 6.86 4.5 - 11.0 x10'3/uL 01/20/2025 12:37 PM [facility] RBC 4.35 4.20 - 5.40 x10'6/uL 01/20/2025 12:37 PM [facility] HGB 12.3 12.0 - 16.0 G/DL 01/20/2025 12:37 PM [facility] HCT 38.9 38.0 - 48.0 % 01/20/2025 12:37 PM [facility] MCV 89.4 81.0 - 99.0 FL 01/20/2025 12:37 PM [facility] MCH 28.3 27.0 - 31.0 PG 01/20/2025 12:37 PM [facility] MCHC 31.6(L) 32.0 - 36.0 G/DL 01/20/2025 12:37 PM [facility] RDW 13.2 11.5 - 14.5 % 01/20/2025 12:37 PM [facility] PLT 271 130 - 400 x10'3/uL 01/20/2025 12:37 PM [facility] MPV 10.2 9.3 - 12.2 FL 01/20/2025 12:37 PM [facility] DIFFERENTIAL TYPE AUTOMATED DIFFERENTIAL 01/20/2025 12:37 PM [facility] NEUTROPHILS % 72.0 % 01/20/2025 12:37 PM [facility] LYMPHOCYTES % 18.1 % 01/20/2025 12:37 PM [facility] MONOCYTES % 9.8 % 01/20/2025 12:37 PM [facility] EOSINOPHILS 0.0 % 01/20/2025 12:37 PM [facility] BASOPHILS 0.0 % 01/20/2025 12:37 PM STONE PAVER [facility] IMMATURE GRANS % 0.1 % 01/21/20 12:37 PM STONE PAVER [facility] ABS. NEUTROPHILS 4.94 1.80 - 7.70 x10'3/uL 01/20/2025 12:37 PM STONE PAVER [facility] ABS. LYMPHOCYTES 1.24 1.00 - 4.80 x10'3/uL 01/20/2025 12:37 PM STONE PAVER [facility] ABS. MONOCYTES 0.67 0.24 - 0.86 x10'3/uL 01/20/2025 12:37 PM STONE PAVER [facility] ABS. EOSINOPHILS 0.00(L) 0.04 - 0.36 x10'3/uL 01/20/2025 12:37 PM STONE PAVER [facility] ABS. BASOPHILS 0.00(L) 0.01 - 0.08 x10'3/uL 01/20/2025 12:37 PM STONE PAVER [facility] ABS. IMMATURE GRANULOCYTES 0.01 0.00 - 0.49 x10'3/uL 01/20/2025 12:37 PM [facility] 01/20/2025 11:0 6 AM STONE PAVER Moriah ORTIZ LABORATORY Final Result [facility] [address] [place] [address], documented in this encounter Visit Diagnoses Diagnosis Pneumonia due to infectious organism- Primary Pneumonia Pneumonia, organism unspecified Weakness Other malaise and fatigue HAP (hospital-acquired pneumonia) Pneumonia, organism unspecified Pneumonia due to infectious organism, unspecified laterality, unspecified part of lung Allergic rhinitis, unspecified seasonality, unspecified trigger Pneumonia of both lungs due to infectious organism, unspecified part of lung Mild intellectual disabilities documented in this encounter Admitting Diagnoses Diagnosis Pneumonia due to infectious organism documented in this encounter Administered Medications Inactive Administered Medications - up to 3 most recent administrations Medication Order MAR Action Action Date Dose Rate Site acetaminophen (TYLENOL) suppository 650 mg 650 mg, Rectal, Every 6 hours PRN, Mild pain (Scale 1 - 3), Discomfort, Fever, Moderate pain (Scale 4 - 7), Headaches, Starting on Wed01/28/25 at 1228, Until Wed01/31/25 at 1312, Maximum dose of acetaminophen is 4000 mg from all sources in 24 hours. acetaminophen (TYLENOL) tablet 650 mg 650 mg, Oral, Every 6 hours PRN, Mild pain (Scale 1 - 3), Fever, Discomfort, Moderate pain (Scale 4 - 7), Headaches, Starting on Wed01/28/25 at 1227, Until Wed01/31/25 at 1312, Maximum dose of acetaminophen is 4000 mg from all sources in 24 hours. acetylcysteine 20 % (MUCOMYST) inhalation solution 400 mg 400 mg, Nebulization, 3 times daily RT, First dose on Wed01/23/25 at 1500, Until DiscontinuedIndications:Pneumonia due to infectious organism, unspecified laterality, unspecified part of lung Given 01/31/2025 8:18 AM CDT 400 mg Given 01/30/2025 2:46 PM CDT 400 mg Given 01/30/2025 7:50 AM CDT 400 mg albuterol (PROVENTIL) (2.5 MG/3ML) 0.083% nebulizer solution 2.5 mg 2.5 mg, Nebulization, Every 6 hours PRN, Shortness of breath, Starting on Wed01/23/25 at 1432, Until Wed01/31/25 at 1312 albuterol (PROVENTIL) (2.5 MG/3ML) 0.083% nebulizer solution 5 mg 5 mg, Nebulization, 3 times daily RT, First dose on Wed01/23/25 at 1500, Until DiscontinuedIndications:Pneumonia due to infectious organism, unspecified laterality, unspecified part of lung,Allergic rhinitis, unspecified seasonality, unspecified trigger Given 01/31/2025 8:18 AM CDT 5 mg Given 01/30/2025 2:45 PM CDT 5 mg Given 01/30/2025 7:50 AM CDT 5 mg amLODIPine (NORVASC) tablet 5 mg 5 mg, Oral, Daily, First dose on Wed01/28/25 at 1230, Until Discontinued Given 01/31/2025 9:29 AM CDT 5 mg Given 01/30/2025 11:07 AM CDT 5 mg Given 01/29/2025 7:57 AM CDT 5 mg amoxicillin-clavulanate (AUGMENTIN) 875-125 MG tablet 875 mg 875 mg, Oral, Every 12 hours scheduled (2 times per day), 14 doses, First dose on Wed01/30/25 at 2100, Last dose on Wed02/06/25 at 0900 Given 01/31/2025 9:29 AM CDT 875 mg Given 01/30/2025 9:20 PM CDT 875 mg azithromycin (ZITHROMAX) 500 mg in sodium chloride 0.9 % 250 mL IVPB 500 mg, Intravenous, at 250 mL/hr, Every 24 hours, 1 dose, First dose on Wed01/20/25 at 1300 01/20/2025 1:51 PM STONE PAVER 500 mg 250 mL/hr azithromycin (ZITHROMAX) 500 mg in sodium chloride 0.9 % 250 mL IVPB 500 mg, Intravenous, at 250 mL/hr, Every 24 hours, 2 doses, First dose (after last reorder) on Wed01/21/25 at 1430, Last dose on Wed01/22/25 at 1430 01/22/2025 3:15 PM CDT 500 mg 250 mL/hr 01/21/2025 4:32 PM CDT 500 mg 250 mL/hr azithromycin (ZITHROMAX) 500 mg in sodium chloride 0.9 % 250 mL IVPB 500 mg, Intravenous, at 250 mL/hr, Every 24 hours, 2 doses, First dose (after last reorder) on Wed01/23/25 at 1500, Last dose on Wed01/24/25 at 1500Indications:Pneumonia due to infectious organism, unspecified laterality, unspecified part of lung 01/24/2025 2:54 PM CDT 500 mg 250 mL/hr 01/23/2025 4:17 PM CDT 500 mg 250 mL/hr barium sulfate (E-Z PASTE) 60 % oral cream Oral, IMG once as needed, Contrast, 1 dose, Starting on Wed01/26/25 at 1014, Until Wed01/26/25 at 1015 Given 01/26/2025 10:15 AM CDT barium sulfate (E-Z-PAQUE) 96 % suspension 176 g 176 g, Oral, IMG once as needed, Contrast, 1 dose, Starting on Wed01/26/25 at 1014, Until Wed01/26/25 at 1015 Given 01/26/2025 10:15 AM CDT 176 g ceFEPIme (MAXIPIME) 2 g in sodium chloride 0.9 % 100 mL IVPB 2 g, Intravenous, Administer over 30 Minutes, Once, 1 dose, On Wed01/23/25 at 1500, Administer over 30 minutes.Indications:Pneumonia due to infectious organism, unspecified laterality, unspecified part of lung 01/23/2025 4:17 PM CDT 2 g 200 mL/hr ceFEPIme (MAXIPIME) 2 g in sodium chloride 0.9 % 100 mL IVPB 2 g, Intravenous, Administer over 240 Minutes, Every 12 hours, 14 doses, First dose on Wed01/23/25 at 2300, Last dose on Wed01/30/25 at 1100, Administer over 4 hours (extended infusion)Indications:Pneumonia due to infectious organism, unspecified laterality, unspecified part of lung New 01/24/2025 11:37 AM CDT 2 g 25 mL/hr 01/23/2025 11:13 PM CDT 2 g 25 mL/hr cefTRIAXone (ROCEPHIN) 1 g in sodium chloride 0.9 % 50 mL IVPB 1 g, Intravenous, at 100 mL/hr, Once, 1 dose, On Wed01/20/25 at 1300 01/20/2025 1:51 PM STONE PAVER 1 g 1 00 mL/hr cefTRIAXone (ROCEPHIN) 1 g in sodium chloride 0.9 % 50 mL IVPB 1 g, Intravenous, at 100 mL/hr, Every 24 hours, 6 doses, First dose (after last reorder) on Wed01/21/25 at 1430, Last dose on Wed01/26/25 at 1200 New 01/23/2025 12:17 PM CDT 1 g 100 mL/hr New 01/22/2025 2:38 PM CDT 1 g 100 mL/hr New 01/21/2025 3:53 PM CDT 1 g 100 mL/hr clomiPRAMINE (ANAFRANIL) capsule 25 mg 25 mg, Oral, Daily, First dose on Wed01/21/25 at 0900, Until Discontinued, Take with food or snack Given 01/31/2025 9:29 AM CDT 25 mg Given 01/30/2025 11:07 AM CDT 25 mg Given 01/29/2025 7:56 AM CDT 25 mg clomiPRAMINE (ANAFRANIL) capsule 50 mg 50 mg, Oral, Nightly at bedtime, First dose on Wed01/20/25 at 2100, Until Discontinued, Take with food or snack Given 01/30/2025 9:20 PM CDT 50 mg Given 01/29/2025 9:57 PM CDT 50 mg Given 01/28/2025 7:48 PM CDT 50 mg dextrose 5 % and 0.45 % NaCl with KCl 20 mEq infusion at 75 mL/hr, Intravenous, Continuous, Starting on Wed01/24/25 at 1645, Until Wed01/30/25 at 0947 New Bag 01/30/2025 4:06 AM CDT 75 mL/hr New Bag 01/29/2025 1:24 PM CDT 75 mL/hr New Bag 01/28/2025 10:50 AM CDT 75 mL/hr dextrose 5 % infusion at 100 mL/hr, Intravenous, Continuous, Starting on Wed01/24/25 at 1115, Until Wed01/24/25 at 1627 New Bag 01/24/2025 11:37 AM CDT 100 mL/hr heparin (porcine) injection 5,000 Units 5,000 Units, Subcutaneous, Every 12 hours scheduled (2 times per day), First dose on Wed01/21/25 at 2100, Until Discontinued Given 01/31/2025 9:26 AM CDT 5,000 Units Left Upper Abdomen Given 01/30/2025 9:20 PM CDT 5,000 Units R ight Lower Abdomen Given 01/30/2025 11:07 AM CDT 5,000 Units Left Lower Abdomen hydrALAZINE (APRESOLINE) injection 10 mg 10 mg, Intravenous, Every 4 hours PRN, Other, SBP > 170 and/or DBP > 105, Starting on Wed01/28/25 at 1206, Until Wed01/31/25 at 1312, Monitor HR and BP before dose and 15 min after IV dose. For IV push give over 1-2 minutes=5mg/min. Given 01/28/2025 12:46 PM CDT 10 mg hydrOXYzine (ATARAX) tablet 10 mg 10 mg, Oral, Once, 1 dose, On 01/23/25 at 1600 Given 01/23/2025 4:35 PM CDT 10 mg iopamidol (ISOVUE-370) 76 % injection 84 mL 84 mL, Intravenous, IMG once as needed, Contrast, 1 dose, Starting on 01/20/25 at 1419, Until 01/20/25 at 1419 Given 01/20/2025 2:19 PM STONE PAVER 84 mLs methylPREDNISolone sodium succinate (SOLU-Medrol) injection 20 mg 20 mg, Intravenous, Daily, 3 doses, First dose (after last modification) on Wed01/26/25 at 0900, Last dose on Wed01/28/25 at 0900, If ordered IV, administer into a vein over 3-15 minutes. Doses >= 2 mg/kg or 250mg should be given by infusion, unless the benefits of IV injection outweigh the risks (life-threatening shock)Indications:Pneumonia due to infectious organism, unspecified laterality, unspecified part of lung,Pneumonia of both lungs due to infectious organism, unspecified part of lung Given 01/26/2025 8:44 AM CDT 20 mg methylPREDNISolone sodium succinate (SOLU-Medrol) injection 40 mg 40 mg, Intravenous, Daily, 5 doses, First dose on Wed01/24/25 at 1615, Last dose on Wed01/28/25 at 0900, If ordered IV, administer into a vein over 3-15 minutes. Doses >= 2 mg/kg or 250mg should be given by infusion, unless the benefits of IV injection outweigh the risks (life-threatening shock)Indications:Pneumonia due to infectious organism, unspecified laterality, unspecified part of lung,Pneumonia of both lungs due to infectious organism, unspecified part of lung Given 01/25/2025 9:47 AM CDT 40 mg Given 01/24/2025 4:21 PM CDT 40 mg metoprolol tartrate (LOPRESSOR) injection 5 mg 5 mg, Intravenous, Every 6 hours, First dose on Wed01/24/25 at 0900, Until Discontinued, Administer IV push 2.5 mg/min. Monitor HR and BP prior to administration, 15 minutes and 30 minutes post administration. If giving for acute arrhythmia, check rhythm prior to each dose. Do not administer if SBP<100 or HR<55. Given 01/30/2025 3:44 AM CDT 5 mg Given 01/29/2025 9:58 PM CDT 5 mg Given 01/29/2025 3:55 PM CDT 5 mg metoprolol tartrate (LOPRESSOR) tablet 25 mg 25 mg, Oral, 2 times daily, First dose on Wed01/20/25 at 2100, Until Discontinued Given 01/23/2025 9:04 AM CDT 25 mg Given 01/22/2025 9:18 PM CDT 25 mg Given 01/22/2025 9:00 AM CDT 25 mg metoprolol tartrate (LOPRESSOR) tablet 25 mg 25 mg, Oral, 2 times daily, First dose on Wed01/30/25 at 1015, Until Discontinued Given 01/31/2025 9:29 AM CDT 25 mg Given 01/30/2025 9:19 PM CDT 25 mg Given During Downtime 01/30/2025 11:06 AM CDT 25 mg pantoprazole (PROTONIX) injection 40 mg 40 mg, Intravenous, Daily, First dose on Wed01/24/25 at 0900, Until Discontinued, Reconstitute each 40 mg vial with 10 mL normal saline to a final concentration of 4 mg/mL. Administer intravenously over a period of a least 2 minutes. Given 01/31/2025 9:26 AM CDT 40 mg Given 01/30/2025 11:07 AM CDT 40 mg Given 01/29/2025 8:00 AM CDT 40 mg pantoprazole EC (PROTONIX) tablet 40 mg 40 mg, Oral, Daily, First dose on Wed01/21/25 at 0900, Until Discontinued, Do not break, chew, or crush. Given 01/23/2025 9:04 AM CDT 40 mg Given 01/22/2025 9:00 AM CDT 40 mg Given 01/21/2025 8:31 AM CDT 40 mg piperacillin-tazobactam (ZOSYN) 3.375 g in sodium chloride 0.9 % 50 mL IVPB 3.375 g, Intravenous, Administer over 30 Minutes, Once, 1 dose, On Wed01/24/25 at 1400, Administer over 30 minutes. New Bag 01/24/2025 2:10 PM CDT 3.375 g 160 mL/hr piperacillin-tazobactam (ZOSYN) 3.375 g in sodium chloride 0.9 % 50 mL IVPB 3.375 g, Intravenous, Administer over 240 Minutes, Every 8 hours, 13 doses, First dose on Wed01/24/25 at 2000, Last dose on Wed01/28/25 at 2300, Administer over 4 hours (extended infusion). New Bag 01/28/2025 10:48 PM CDT 3.375 g 2 0 mL/hr New Bag 01/28/2025 2:54 PM CDT 3.375 g 20 mL/hr New Bag 01/28/2025 3:00 AM CDT 3.375 g 20 mL/hr potassium chloride 40 mEq in sodium chloride 0.9 % 500 mL IV Infusion 40 mEq, Intravenous, Administer over 240 Minutes, Once, 1 dose, On Wed01/24/25 at 0745, For a total of 80 meq MAX rate in peripheral line of 10 mEq per hour. New Bag 01/24/2025 9:03 AM CDT 40 mEq 125 mL /hr potassium chloride 40 mEq in sodium chloride 0.9 % 500 mL IV Infusion 40 mEq, Intravenous, Administer over 240 Minutes, Once, 1 dose, On Wed01/24/25 at 1645, For total of 80 meq MAX rate in peripheral line of 10 mEq per hour. New Bag 01/24/2025 5:04 PM CDT 40 mEq 125 mL/hr potassium chloride 40 mEq in sodium chloride 0.9 % 500 mL IV Infusion 40 mEq, Intravenous, Administer over 240 Minutes, Once, 1 dose, On Wed01/24/25 at 2100, For total of 80 meq MAX rate in peripheral line of 10 mEq per hour. New Bag 01/24/2025 10:05 PM CDT 40 mEq 125 mL/hr potassium chloride 40 mEq in sodium chloride 0.9 % 500 mL IV Infusion 40 mEq, Intravenous, Administer over 240 Minutes, Once, 1 dose, On Gloria 01/25/25 at 1430, MAX rate in peripheral line of 10 mEq per hour. New Bag 01/25/2025 3:20 PM CDT 40 mEq 125 mL/hr potassium chloride 40 mEq in sodium chloride 0.9 % 500 mL IV Infusion 40 mEq, Intravenous, Administer over 240 Minutes, Once, 1 dose, On 01/26/25 at 0845, MAX rate in peripheral line of 10 mEq per hour. New Bag 01/26/2025 8:40 AM CDT 40 mEq 125 mL/hr potassium chloride 40 mEq in sodium chloride 0.9 % 500 mL IV Infusion 40 mEq, Intravenous, Administer over 240 Minutes, Once, 1 dose, On 01/27/25 at 0900, MAX rate in peripheral line of 10 mEq per hour. New Bag 01/27/2025 9:45 AM CDT 40 mEq 125 mL/hr potassium chloride 40 mEq in sodium chloride 0.9 % 500 mL IV Infusion 40 mEq, Intravenous, Administer over 240 Minutes, Once, 1 dose, On 01/28/25 at 1145, MAX rate in peripheral line of 10 mEq per hour. New Bag 01/28/2025 12:53 PM CDT 40 mEq 125 mL/hr risperiDONE (RisperDAL) tablet 0.5 mg 0.5 mg, Oral, Nightly at bedtime, First dose on 01/20/25 at 2100, Until Discontinued Given 01/30/2025 9:20 PM CDT 0.5 mg Given 01/29/2025 9:57 PM CDT 0.5 mg Given 01/28/2025 7:48 PM CDT 0.5 mg risperiDONE (RisperDAL) tablet 1 mg 1 mg, Oral, 2 times daily, First dose on 01/20/25 at 2100, Until Discontinued Given 01/31/2025 9:29 AM CDT 1 mg Given 01/30/2025 9:20 PM CDT 1 mg Given 01/30/2025 11:07 AM CDT 1 mg sodium chloride tablet 1 g 1 g, Oral, Daily, First dose on 01/21/25 at 0900, Until Discontinued Given 01/23/2025 9:04 AM CDT 1 g Given 01/22/2025 9:00 AM CDT 1 g Given 01/21/2025 8:31 AM CDT 1 g solifenacin (VESICARE) tablet 10 mg 10 mg, Oral, Daily, First dose on 01/20/25 at 1715, Until Discontinued Given 01/31/2025 9:27 AM CDT 10 mg Given During Downtime 01/30/2025 11:06 AM CDT 10 mg Given 01/29/2025 7:56 AM CDT 10 mg triamcinolone (KENALOG) 0.025 % cream Topical, 2 times daily, First dose on Wed01/28/25 at 1230, Until Discontinued Given 01/31/2025 9:29 AM CDT Given 01/30/2025 9:21 PM CDT Given 01/30/2025 11:37 AM CDT vancomycin (VANCOCIN) 750 mg in sodium chloride 0.9 % 250 mL IVPB 750 mg, Intravenous, at 257.5 mL/hr, Once, 1 dose, On Wed01/23/25 at 1500 New Bag 01/23/2025 3:02 PM CDT 750 mg 257.5 mL/hr vancomycin (VANCOCIN) 750 mg in sodium chloride 0.9 % 250 mL IVPB 750 mg, Intravenous, at 128.8 mL/hr, Every 18 hours, 9 doses, First dose on Wed01/24/25 at 1200, Last dose on Wed01/30/25 at 1200 New Bag 01/25/2025 6:12 AM CDT 750 mg 128.8 mL/hr New Bag 01/24/2025 4:10 PM CDT 750 mg 128.8 mL/hr vitamin D3 (cholecalciferol) tablet 2,000 Units 2,000 Units, Oral, Daily, First dose on Wed01/21/25 at 0900, Until Discontinued Given 01/31/2025 9:28 AM CDT 2, 000 Units Given 01/30/2025 11:07 AM CDT 2,000 Units Given 01/29/2025 7:56 AM CDT 2,000 Units documented in this encounter Active and Recently Administered Medications Times are shown in CDT. Scheduled Medication Order 01/29/2025 01/30/2025 01/31/2025 acetylcysteine 20 % (MUCOMYST) inhalation solution 400 mg 400 mg, Nebulization, 3 times daily RT, First dose on Wed01/23/25 at 1500, Until Discontinued 07 (Given - Provider: María Cardona, JACQUIE)1504 (Given - Provider: María Cardona, JACQUIE) 0445 (Not Given - Provider: Jamaal Hi RRT - Reason: Other - Comment: TNA)0750 (Given - Provider: Concha Sharp, BAIL AGENT)1446 (Given - Provider: Marychuy Aceves, Resp Advanced Solutions Architect)2338 (Not Given - Provider: Jia Fagan RRT - Reason: Other) 0818 (Given - Provider: Mike Mason RRT) albuterol (PROVENTIL) (2.5 MG/3ML) 0.083% nebulizer solution 5 mg 5 mg, Nebulization, 3 times daily RT, First dose on Wed01/23/25 at 1500, Until Discontinued 0726 (Given - Provider: María Cardona RRT)1503 (Given - Provider: María Cardona RRT) 0445 (Not Given - Provider: Jamaal Hi RRT - Reason: Other - Comment: TNA)0750 (Given - Provider: Concha Sharp, BAIL AGENT)1445 (Given - Provider: Marychuy Aceves, Resp Advanced Solutions Architect)2338 (Not Given - Provider: Jia Fagan RRT - Reason: Other) 0818 (Given - Provider: Mike Mason RRT) amLODIPine (NORVASC) tablet 5 mg 5 mg, Oral, Daily, First dose on Wed01/28/25 at 1230, Until Discontinued 075 (Given - Provider: Ceci Rosas RN) 1107 (Given - Provider: Beverly Carmona, NORM) 09 (Given - Provider: Patti Puentes, NORM) amoxicillin-clavulanate (AUGMENTIN) 875-125 MG tablet 875 mg 875 mg, Oral, Every 12 hours scheduled (2 times per day), 14 doses, First dose on Wed01/30/25 at 2100, Last dose on Wed02/06/25 at 0900 2120 (Given - Provider: Vika Dacosta RN) 09 (Given - Provider: Patti Puentes, NORM) clomiPRAMINE (ANAFRANIL) capsule 25 mg(Linked Group 1) 25 mg, Oral, Daily, First dose on Wed01/21/25 at 0900, Until Discontinued, Take with food or snack 0756 (Given - Provider: Ceci Rosas RN) 1107 (Given - Provider: Beverly Carmona RN) 09 (Given - Provider: Patti Puentes RN) clomiPRAMINE (ANAFRANIL) capsule 50 mg(Linked Group 1) 50 mg, Oral, Nightly at bedtime, First dose on Wed01/20/25 at 2100, Until Discontinued, Take with food or snack 215 (Given - Provider: Vika Dacosta RN) 2119 (Given - Provider: Vika Dacosta RN) heparin (porcine) injection 5,000 Units(Linked Group 2) 5,000 Units, Subcutaneous, Every 12 hours scheduled (2 times per day), First dose on Wed01/21/25 at 2100, Until Discontinued 0801 (Given - Provider: Ceci Rosas RN)2157 (Given - Provider: Vika Dacosta RN) 110 (Given - Provider: Beverly Carmona RN)2119 (Given - Provider: Vika Dacosta RN) 09 (Given - Provider: Patti Puentes RN) metoprolol tartrate (LOPRESSOR) injection 5 mg (CANCELED) 5 mg, Intravenous, Every 6 hours, First dose on Wed01/24/25 at 0900, Until Discontinued, Administer IV push 2.5 mg/min. Monitor HR and BP prior to administration, 15 minutes and 30 minutes post administration. If giving for acute arrhythmia, check rhythm prior to each dose. Do not administer if SBP<100 or HR<55. 0248 (Given - Provider: Shaan Larson RN)0800 (Given - Provider: Ceci Rosas RN)1555 (Given - Provider: Ceci Rosas RN)215 (Given - Provider: Vika Dacosta RN) 0344 (Given - Provider: Vika Dacosta RN)1138 (Not Given - Provider: Cat Morales RN - Reason: Medication Discontinued) metoprolol tartrate (LOPRESSOR) tablet 25 mg 25 mg, Oral, 2 times daily, First dose on Wed01/30/25 at 1015, Until Discontinued 1106 (Given During Downtime - Provider: Beverly Carmona RN)2118 (Given - Provider: Vika Dacosta RN) 09 (Given - Provider: Patti Puentes RN) pantoprazole (PROTONIX) injection 40 mg 40 mg, Intravenous, Daily, First dose on Wed01/24/25 at 0900, Until Discontinued, Reconstitute each 40 mg vial with 10 mL normal saline to a final concentration of 4 mg/mL. Administer intravenously over a period of a least 2 minutes. 0800 (Given - Provider: Ceci Rosas RN) 1107 (Given - Provider: Beverly Carmona RN) 09 (Given - Provider: Patti Puentes RN) risperiDONE (RisperDAL) tablet 0.5 mg(Linked Group 3) 0.5 mg, Oral, Nightly at bedtime, First dose on 01/20/25 at 2100, Until Discontinued 2156 (Given - Provider: Vika Dacosta RN) 2119 (Given - Provider: Vika Dacosta RN) risperiDONE (RisperDAL) tablet 1 mg(Linked Group 3) 1 mg, Oral, 2 times daily, First dose on 01/20/25 at 2100, Until Discontinued 075 (Given - Provider: Ceci Rosas RN)2157 (Given - Provider: Vika Dacosta RN) 110 (Given - Provider: Beverly Carmona RN)2119 (Given - Provider: Vika Dacosta RN) 09 (Given - Provider: Patti Puentes RN) solifenacin (VESICARE) tablet 10 mg 10 mg, Oral, Daily, First dose on 01/20/25 at 1715, Until Discontinued 075 (Given - Provider: Ceci Rosas RN) 110 (Given During Downtime - Provider: Beverly Carmona RN) 09 (Given - Provider: Patti Puentes RN) triamcinolone (KENALOG) 0.025 % cream Topical, 2 times daily, First dose on Wed01/28/25 at 1230, Until Discontinued 08 (Given - Provider: Ceci Rosas RN)2157 (Not Given - Provider: Vika Dacosta RN - Reason: Other - Comment: Not needed at this time) 113 (Given - Provider: Cat Morales RN)2121 (Given - Provider: Vika Dacosta RN) 0929 (Given - Provider: Patti Puentes, NORM) vitamin D3 (cholecalciferol) tablet 2,000 Units 2,000 Units, Oral, Daily, First dose on 01/21/25 at 0900, Until Discontinued 0756 (Given - Provider: Ceci Rosas RN) 1107 (Given - Provider: Beverly Carmona, NORM) 0928 (Given - Provider: Patti Puentes, NORM) Continuous Medication Order 01/29/2025 01/30/2025 01/31/2025 dextrose 5 % and 0.45 % NaCl with KCl 20 mEq infusion (CANCELED) at 75 mL/hr, Intravenous, Continuous, Starting on Wed01/24/25 at 1645, Until Wed01/30/25 at 0947 1324 (New Bag - Provider: Ceci Rosas RN) 0406 (New Bag - Provider: Vika Dacosta RN)1849 (Infusion Stop Time - Provider: Cat Morales RN) PRN Medication Order 01/29/2025 01/30/2025 01/31/2025 acetaminophen (TYLENOL) suppository 650 mg 650 mg, Rectal, Every 6 hours PRN, Mild pain (Scale 1 - 3), Discomfort, Fever, Moderate pain (Scale 4 - 7), Headaches, Starting on Wed01/28/25 at 1228, Until Wed01/31/25 at 1312, Maximum dose of acetaminophen is 4000 mg from all sources in 24 hours. acetaminophen (TYLENOL) tablet 650 mg 650 mg, Oral, Every 6 hours PRN, Mild pain (Scale 1 - 3), Fever, Discomfort, Moderate pain (Scale 4 - 7), Headaches, Starting on Wed01/28/25 at 1227, Until Wed01/31/25 at 1312, Maximum dose of acetaminophen is 4000 mg from all sources in 24 hours. albuterol (PROVENTIL) (2.5 MG/3ML) 0.083% nebulizer solution 2.5 mg 2.5 mg, Nebulization, Every 6 hours PRN, Shortness of breath, Starting on Wed01/23/25 at 1432, Until Wed01/31/25 at 1312 bisacodyl EC (DULCOLAX) tablet 10 mg 10 mg, Oral, Every 8 hours PRN, Constipation, Starting on 01/20/25 at 1648, Until Wed01/31/25 at 1312, If no BM for 3 days Do not break, chew, or crush. fluticasone propionate (FLONASE) 50 MCG/ACT nasal spray 2 spray 2 spray, Each Nostril, Nightly PRN, Allergies, Starting on 01/20/25 at 1648, Until Wed01/31/25 at 1312 hydrALAZINE (APRESOLINE) injection 10 mg 10 mg, Intravenous, Every 4 hours PRN, Other, SBP > 170 and/or DBP > 105, Starting on 01/28/25 at 1206, Until Wed01/31/25 at 1312, Monitor HR and BP before dose and 15 min after IV dose. For IV push give over 1-2 minutes=5mg/min. Linked Groups Order Group 1: clomiPRAMINE (ANAFRANIL) capsule 25 mgJump to med 25 mg, Oral, Daily, First dose on 01/21/25 at 0900, Until Discontinued, Take with food or snack And clomiPRAMINE (ANAFRANIL) capsule 50 mgJump to med 50 mg, Oral, Nightly at bedtime, First dose on 01/20/25 at 2100, Until Discontinued, Take with food or snack Group 2: heparin (porcine) injection 5,000 UnitsJump to med 5,000 Units, Subcutaneous, Every 12 hours scheduled (2 times per day), First dose on 01/21/25 at 2100, Until Discontinued And Moderate Risk for VTE (COMPLETED) Group 3: risperiDONE (RisperDAL) tablet 1 mgJump to med 1 mg, Oral, 2 times daily, First dose on 01/20/25 at 2100, Until Discontinued And risperiDONE (RisperDAL) tablet 0.5 mgJump to med 0.5 mg, Oral, Nightly at bedtime, First dose on Wed01/20/25 at 2100, Until Discontinued documented in this encounter Additional Health Concerns Infection Onset Date Last Indicated Resolved Time Respiratory Rule-Out 01/20/2025 01/20/2025 025 2:49 PM STONE PAVER Respiratory Rule-Out 01/23/2025 01/23/2025 025 4:19 PM CDT documented as of this encounter Care Teams Aerodynamic Consultant Relationship Specialty Start Date End Date Pratibha Corado, [facility]- [address] [facility], [address] [place] [address] PCP - General NURSE PRACTITIONER 02/25/24 documented as of this encounter
--- OUTSIDE RECORDS SUMMARY | 2025-01-31 14:55 | XMS_ITS | Encounter Summary ---
Author Organization [facility] Address [facility] [place] [address] Care Team Providers Care Seam Taper Machine Name Role Phone Pratibha Corado [facility] Primary Care Provider + Encounter Details Date Type Department Care Team (Late st Contact Info) Description 05/17/2024 Therapy Plan [facility] [address] [place] [address] Pratibha Corado, [facility] [address] [address] Social History Tobacco Use Types Packs/Day Years Used Date Smoking Tobacco: Never Passive Smoke Exposure: Never Smokeless Tobacco: Never Alcohol Use Standard Drinks/Week Comments No 0 (1 standard drink = 0.6 oz pur e alcohol) AUDIT-C Answer Date Recorded Frequency of Alcohol Consumption Never 10/12/2018 Average Number of Drinks Not on file 018 Frequency of Binge Drinking Not on file 09/16 PHQ-2 Answer Date Recorded Patient Health Questionnaire-2 Score 0 04/26/2024 Comments No Sex and Gender Information Value Date Recorded Sex Assigned at Female 11/28/2024 8:47 AM OCEAN FREIGHT FORWARDER Legal Sex Female 6:18 PM CDT Gender Identity Not on file Sexual Orientation Not on file documented as of this encounter Functional Status * RETIRED Are you deaf or do you have serious difficulty hearing Answer Date of Assessment Author Status No 12/31/2021 11:42 PM OCEAN FREIGHT FORWARDER Acti ve * RETIRED Are you blind or do you have serious difficulty seeing, even when wearing glasses? Answer Date of Assessment Author Status Yes 01/01/2022 4:50 AM OCEAN FREIGHT FORWARDER Activ e * Do you have serious difficulty walking or climbing stairs? Answer Date of Assessment Author Status Yes 01/01/2022 4:50 AM Santana Hensley RN Active * Do you have difficulty dressing or bathing? Answer Date of Assessment Author Status Yes 01/01/2022 4:50 AM Santana Hensley RN Active * Because of a physical, mental, or emotional condition, do you have difficulty doing errands alone such as visiting a doctor's office or shopping? Answer Date of Assessment Author Status Yes 01/01/2022 4:50 AM Santana Hensley RN Active documented as of this encounter Mental Status * Because of a physical, mental, or emotional condition, do you have serious difficulty concentrating, remembering, or making decisions? Answer Entry Date Author Status Yes 01/01/2022 4:50 AM Santana Hensley RN Active documented in this encounter Plan of Treatment Upcoming Encounters Date Type Department Care Team (Late st Contact Info) Description 05/29/2025 10:00 AM CDT Office Visit [facility] [address] [place] [phone] Pratibha Corado FNP-BC [address], [facility] [address] [place] [address] documented as of this encounter Visit Diagnoses Not on filedocumented in this encounter Additional Health Concerns Infection Onset Date Last Indicated Resolved Time Respiratory Rule-Out 01/20/2025 01/20/2025 025 2:49 PM OCEAN FREIGHT FORWARDER Respiratory Rule-Out 01/23/2025 01/23/2025 025 4:19 PM CDT documented as of this encounter Care Teams Seam Taper Machine Relationship Specialty Start Date End Date Pratibha Corado FNP-GET [address], [address] [place], [place] [id number] PCP - General NURSE PRACTITIONER 02/25/24 documented as of this encounter
--- OUTSIDE RECORDS SUMMARY | 2025-01-31 14:55 | XMS_ITS | Encounter Summary ---
Author Organization [facility] Address [facility] [place] [address] Care Team Providers Care Home Comfort Advisor Name Role Phone Osmany Amezcua MD Primary Care Provider [phone] Saba June ATTORNEY GENERAL-C Primary Care Provider [phone] Mike Braden DO Primary Care Provider Pratibha Corado SHREDDING MACHINE TENDER- Primary Care Provider + Encounter Details Date Type Department Care Team (Late st Contact Info) Description 09/06/2018 Abstract [facility] Conversion Md, Generic Conversion, Social History Tobacco Use Types Packs/Day Years Used Date Smoking Tobacco: Never Assessed Comments Unknown Sex and Gender Information Value Date Recorded Sex Assigned at Female 11/28/2024 8:47 AM SKIVING MACHINE OPERATOR Legal Sex Female 6:18 PM CDT Gender Identity Not on file Sexual Orientation Not on file documented as of this encounter Plan of Treatment Upcoming Encounters Date Type Department Care Team (Late st Contact Info) Description 05/29/2025 10:00 AM CDT Office Visit [facility] [address] [place] [phone] Pratibha Corado, [facility]- [address] [facility], [address] [place] [address] documented as of this encounter Visit Diagnoses Not on filedocumented in this encounter Additional Health Concerns Infection Onset Date Last Indicated Resolved Time COVID-19 Rule Out 12/31/2021 12/31/2021 12/31/2021 9:49 PM SKIVING MACHINE OPERATOR COVID-19 Rule Out 12/26/2022 12/26/2022 12/26/2022 9:18 PM SKIVING MACHINE OPERATOR COVID-19 Rule Out 04/27/2024 04/27/2024 04/27/2024 3:07 PM CDT Respiratory Rule-Out 01/20/2025 01/20/2025 025 2:49 PM SKIVING MACHINE OPERATOR Respiratory Rule-Out 01/23/2025 01/23/2025 025 4:19 PM CDT documented as of this encounter Care Teams Home Comfort Advisor Relationship Specialty Start Date End Date Osmany Amezcua MD PCP - General 01/21/13 06/23/20 Saba June, ATTORNEY GENERAL-C PCP - General Nurse Practitioner Family 06/24/2012/17 Mike Braden DO PCP - General FAMILY PRACTICE 01/13/22 02/18/24 Pratibha Corado, SHREDDING MACHINE TENDER- [address] [facility], [address] [place] [id number] PCP - General NURSE PRACTITIONER 02/25/24 documented as of this encounter
--- OUTSIDE RECORDS SUMMARY | 2025-01-31 14:55 | XMS_ITS | Encounter Summary ---
Author Organization [facility] Address [facility] [place] [address] Care Team Providers Care Plant Ecologist Name Role Phone Osmany Amezcua MD Primary Care Provider [phone] Saba June PHYTOCHEMISTRY PROFESSOR-C Primary Care Provider Mike Braden DO Primary Care Provider Pratibha Corado [facility] Primary Care Provider + Encounter Details Date Type Department Care Team (Late st Contact Info) Description 03/15/2017 Abstract [facility] [address] [place] [address] , Generic ConversionMD Social History Tobacco Use Types Packs/Day Years Used Date Smoking Tobacco: Never Assessed Comments Unknown Sex and Gender Information Value Date Recorded Sex Assigned at Female 11/28/2024 8:47 AM ART TEACHER Legal Sex Female 6:18 PM CDT Gender Identity Not on file Sexual Orientation Not on file documented as of this encounter Plan of Treatment Upcoming Encounters Date Type Department Care Team (Late st Contact Info) Description 05/29/2025 10:00 AM CDT Office Visit [facility] [address] [place] [address] Pratibha Corado, [facility] [address] [facility], [address] [place] [address] documented as of this encounter Visit Diagnoses Not on filedocumented in this encounter Additional Health Concerns Infection Onset Date Last Indicated Resolved Time COVID-19 Rule Out 12/31/2021 12/31/2021 12/31/2021 9:49 PM ART TEACHER COVID-19 Rule Out 12/26/2022 12/26/2022 12/26/2022 9:18 PM ART TEACHER COVID-19 Rule Out 04/27/2024 04/27/2024 04/27/2024 3:07 PM CDT Respiratory Rule-Out 01/20/2025 01/20/2025 025 2:49 PM ART TEACHER Respiratory Rule-Out 01/23/2025 01/23/2025 025 4:19 PM CDT documented as of this encounter Care Teams Plant Ecologist Relationship Specialty Start Date End Date Osmany Amezcua MD PCP - General 01/21/13 06/23/20 Saba June, PHYTOCHEMISTRY PROFESSOR-C PCP - General Nurse Practitioner Family 06/24/2012/17 Mike Braden DO PCP - General FAMILY PRACTICE 01/13/22 02/18/24 Pratibha Corado, CHIEF PRIVACY OFFICER- [address] [facility], [address] [place] [address] PCP - General NURSE PRACTITIONER 02/25/24 documented as of this encounter
--- OUTSIDE RECORDS SUMMARY | 2025-01-31 14:55 | XMS_ITS | Clinical Summary ---
Author Organization [facility] Address [address] [place] [address] Care Team Providers Care Dental Detail Representative Name Role Phone Unavailable Primary Care Provider Unavailabl e Source Comments [facility],non-owned Affiliates and Associated Physician Practices is amultiple site organization consisting of ambulatory clinics and hospital sitesin [place], [place], [place] and [place]. This disclosure is being madepursuant to the Care Everywhere program and may not contain all information available regarding this patient. Last updated 18.[facility] Allergies No known active allergies Medications * Be aware that medications may not be up to date on this document. Alwaysverify current medications with the patient. Medication Sig Dispensed Refills Start Date End Date Status fluticasone propionate (Flonase) 50 MCG/ACT nasal spray [place] 2 (two) sprays into each nostril once daily Active magnesium 250 MG tablet Take 1 (one) tablet by mouth once daily Active omeprazole EC (PRILOSEC OTC) 20 MG tablet Take 1 (one) tablet by mouth daily before breakfast Active oxybutynin CR 24hr (DITROPAN-XL) 5 MG tablet Take 1 (one) tablet by mouth at bedtime Active oyster shell calcium 500 MG tablet Take 1 (one) tablet by mouth 3 times daily Active potassium chloride ER (KLOR-CON M) 10 MEQ tablet Take 2 (two) tablets by mouth once daily Active ascorbic acid (VITAMIN C) 500 MG tablet Take 1 (one) tablet by mouth 2 times daily Active Vitamin D, Ergocalciferol, 50 MCG (1999 UT) CAPS Take 1 capsule by mouth once daily Active B Complex Vitamins (VITAMIN B COMPLEX) tablet Take 1 (one) tablet by mouth once daily Active docusate sodium (Colace) 100 MG capsule Take 1 (one) capsule by mouth 2 times daily Active sodium chloride 1 GM tablet Take 1 (one) tablet by mouth once daily Active metoprolol tartrate IR (Lopressor) 25 MG tablet Take 1 (one) tablet by mouth 2 times daily Active clomiPRAMINE (Anafranil) 50 MG capsuleIndicatio ns:Generalized anxiety disorder,Excoria tion (skin-picking) disorder Take one capsule by mouth at bedtime 8 PM for obsessive picking 31 capsule 3 01/25/2025 Active clomiPRAMINE (Anafranil) 25 MG capsuleIndicatio ns:Generalized anxiety disorder,Excoria tion (skin-picking) disorder Take 1 (one) capsule by mouth at bedtime 31 capsule 3 01/25/2025 Active risperiDONE (RisperDAL) 1 MG tabletIndication s:Generalized anxiety disorder Take 1 (one) tablet by mouth 2 times daily 62 tablet 3 01/25/2025 Active risperiDONE (RisperDAL) 0.5 MG tabletIndication s:Generalized anxiety disorder Take 1 (one) tablet by mouth at bedtime 31 tablet 3 01/25/2025 Active risperiDONE (RisperDAL) 1 MG tabletIndication s:Generalized anxiety disorder Take 1 (one) tablet by mouth 2 times daily 62 tablet 3 10/26/2024 01/24/2025 Discontinued (Reorder) risperiDONE (RisperDAL) 0.5 MG tabletIndication s:Generalized anxiety disorder Take 1 (one) tablet by mouth at bedtime 31 tablet 3 10/26/2024 01/24/2025 Discontinued (Reorder) clomiPRAMINE (Anafranil) 50 MG capsuleIndicatio ns:Generalized anxiety disorder,Excoria tion (skin-picking) disorder Take one capsule by mouth at bedtime 8 PM for obsessive picking 31 capsule 3 10/26/2024 01/22/2025 Discontinued (Reorder) clomiPRAMINE (Anafranil) 25 MG capsuleIndicatio ns:Generalized anxiety disorder,Excoria tion (skin-picking) disorder Take 1 (one) capsule by mouth at bedtime 31 capsule 3 10/26/2024 01/22/2025 Discontinued (Reorder) Active Problems Problem Noted Date Diagnosed Date Schizophrenia 02/07/2019 Encounters Date Type Department Care Team Description 01/25/2025 3:40 PM CDT Skilled Nursing Documentation Encounter [facility] [address] [place] [address] Izabela Gore MD Karaffa, Melissa, AUTOMATION SOFTWARE ENGINEER-DRESSING MACHINE OPERATOR Generalized anxiety disorder ; Excoriation (skin-picking) disorder 01/24/2025 Orders Only [facility] [address] [place] [address] Tania Rao APRN-DRESSING MACHINE OPERATOR High risk medications (not anticoagulants) long-term use 01/22/2025 Orders Only [facility] [address] [place] [address] Tania Rao APRN-DRESSING MACHINE OPERATOR High risk medications (not anticoagulants) long-term use 01/18/2025 Travel from Last 3 Months Social History Tobacco Use Types Packs/Day Years Used Date Smoking Tobacco: Never Smokeless Tobacco: Never Tobacco Cessation:Counseling Given: No Sex and Gender Information Value Date Recorded Sex Assigned at Not on file Gender Identity Not on file Sexual Orientation Not on file Last Filed Vital Signs Vital Sign Reading Time Taken Comments Blood Pressure 130/81 12/13/2023 2:26 PM PROCESS ARTIST Pulse 80 12/13/2023 2:26 PM PROCESS ARTIST Temperature - - Respiratory Rate - - Oxygen Saturation - - Inhaled Oxygen Concentration - - Weight 49 kg (108 lb) 01/18/2025 2:00 PM PROCESS ARTIST Height - - Body Mass Index - - Plan of Treatment Health Maintenance Due Date Last Done Comments COLOGUARD (AGES 45-75) - COLON CA SCREENING 1954 COLON MONITORING 1954 COLONOSCOPY - COLON CA SCREENING 1954 CT COLONOGRAPHY - COLON CA SCREENING 1954 Colorectal Cancer Screening 1954 FIT - COLON CA SCREENING 1954 FLEX SIG - COLON CA SCREENING 1954 MEDICARE AWV 12 MONTHS 1954 HEPATITIS C SCREENING 06/21/1972 DTAP/TDAP/TD VACCINES (1 - Tdap) 1973 PNEUMOCOCCAL VACCINE 50+ (1 of 1 - PCV) 2004 ZOSTER VACCINE (1 of 2) 2004 COVID-19 VACCINE ( season) 2024 02/13/2022, 11/24/2021, 01/08/2021, Additional history exists INFLUENZA VACCINE (#1) 2024 10/17/2013, 2011 DEPRESSION SCREENING 11/15/2024 MAMMOGRAM 06/02/2025 06/02/2023, 06/02/2023 Respiratory Syncytial Virus (RSV) Vaccine Pt: or over 60 yrs (1 - 1-dose 75+ series) 2029 LIPID TESTING 07/28/2029 07/28/2024, 09/15, 03/03/2021, Additional history exists BONE DENSITY TESTING Completed 04/18/2024 HEPATITIS B VACCINE Aged Out No longe r eligible based on patient's age to complete this topic HIB VACCINE Aged Out No longer eligi ble based on patient's age to complete this topic HPV VACCINE Aged Out No longer eligi ble based on patient's age to complete this topic MENINGOCOCCAL (Group B) VACCINE SHARED DECISION-MAKING Aged Out No longer eligible based on patient's age to complete this topic MENINGOCOCCAL GROUPS A/C/Y/W VACCINE Aged Out No longer eligible based on patient's age to complete this topic
[2025-01-31 14:56] LABS: Alveolar/Arterial O2 Gradient 522.4 mmHg; Base Excess ABG 6.3 mEq/l (+/-2.0); Carboxyhemoglobin 0.2 % THb (0-2.0); Fractional Inspired Oxygen 100 %; HCO3 ABG 31.7 mEq/l (22.0-26.0); Methemoglobin ABG 0.2 %THb (0-1.5); Oxygen Content ABG 15.4 %vol (16.0-22.0); Oxygen Saturation ABG 98.8 % (95.0-100.0); Oxyhemoglobin 98.5 % THb (90.0-100.0); PCO2 ABG 49.6 mmHg (35.0-45.0); PO2 FiO2 Ratio Arterial Blood 1.41 %; Reduced Hemoglobin 1.1 %THb (0-5.0); Total Hemoglobin 10.9 g/dL (12.0-18.0); pH ABG 7.423 (7.350-7.450)
--- OUTSIDE RECORDS SUMMARY | 2025-01-31 14:56 | XMS_ITS | Encounter Summary ---
Author Organization [facility] Address [facility] [place] [address] Care Team Providers Care Online Merchandising Specialist Name Role Phone Osmany Amezcua MD Primary Care Provider [phone] Saba June BREEDING MANAGER-C Primary Care Provider Mike Braden DO Primary Care Provider Pratibha Corado HANDKERCHIEF CUTTER- Primary Care Provider + Encounter Details Date Type Department Care Team (Late st Contact Info) Description 04/11/2014 Abstract [facility] Conversion Md, Generic Conversion, Social History Tobacco Use Types Packs/Day Years Used Date Smoking Tobacco: Never Assessed Comments Unknown Sex and Gender Information Value Date Recorded Sex Assigned at Female 11/28/2024 8:47 AM EMULSIFICATION OPERATOR Legal Sex Female 6:18 PM CDT Gender Identity Not on file Sexual Orientation Not on file documented as of this encounter Plan of Treatment Upcoming Encounters Date Type Department Care Team (Late st Contact Info) Description 05/29/2025 10:00 AM CDT Office Visit [facility] [address] [place] [phone] Pratibha Corado, [facility]- [address] [facility], [address] [place] [address] documented as of this encounter Visit Diagnoses Not on filedocumented in this encounter Additional Health Concerns Infection Onset Date Last Indicated Resolved Time COVID-19 Rule Out 12/31/2021 12/31/2021 12/31/2021 9:49 PM EMULSIFICATION OPERATOR COVID-19 Rule Out 12/26/2022 12/26/2022 12/26/2022 9:18 PM EMULSIFICATION OPERATOR COVID-19 Rule Out 04/27/2024 04/27/2024 04/27/2024 3:07 PM CDT Respiratory Rule-Out 01/20/2025 01/20/2025 025 2:49 PM EMULSIFICATION OPERATOR Respiratory Rule-Out 01/23/2025 01/23/2025 025 4:19 PM CDT documented as of this encounter Care Teams Online Merchandising Specialist Relationship Specialty Start Date End Date Osmany Amezcua MD PCP - General 01/21/13 06/23/20 Saba June, BREEDING MANAGER-C PCP - General Nurse Practitioner Family 06/24/2012/17 Mike Braden DO PCP - General FAMILY PRACTICE 01/13/22 02/18/24 Pratibha Corado, HANDKERCHIEF CUTTER- [address] [facility], [address] [place] [id number] PCP - General NURSE PRACTITIONER 02/25/24 documented as of this encounter
--- OUTSIDE RECORDS SUMMARY | 2025-01-31 14:56 | XMS_ITS | Encounter Summary ---
Author Organization [facility] Address [facility] [place] [address] Care Team Providers Care Sales And In Home Delivery Specialist Name Role Phone Osmany Amezcua MD Primary Care Provider [phone] Saba June TIRE AND LUBE TECHNICIAN-C Primary Care Provider Mike Braden DO Primary Care Provider Pratibha Corado DEVELOPMENT TEAM LEAD- Primary Care Provider + Encounter Details Date Type Department Care Team (Late st Contact Info) Description 10/24/2012 Abstract [facility] Conversion Md, Generic Conversion, Social History Tobacco Use Types Packs/Day Years Used Date Smoking Tobacco: Never Assessed Comments Unknown Sex and Gender Information Value Date Recorded Sex Assigned at Female 11/28/2024 8:47 AM BUFFING WHEEL PRESSER Legal Sex Female 6:18 PM CDT Gender Identity Not on file Sexual Orientation Not on file documented as of this encounter Plan of Treatment Upcoming Encounters Date Type Department Care Team (Late st Contact Info) Description 05/29/2025 10:00 AM CDT Office Visit [facility] [address] [place] [phone] Pratibha Corado, [facility]- [address] [facility], [address] [place] [address] documented as of this encounter Visit Diagnoses Not on filedocumented in this encounter Additional Health Concerns Infection Onset Date Last Indicated Resolved Time COVID-19 Rule Out 12/31/2021 12/31/2021 12/31/2021 9:49 PM BUFFING WHEEL PRESSER COVID-19 Rule Out 12/26/2022 12/26/2022 12/26/2022 9:18 PM BUFFING WHEEL PRESSER COVID-19 Rule Out 04/27/2024 04/27/2024 04/27/2024 3:07 PM CDT Respiratory Rule-Out 01/20/2025 01/20/2025 025 2:49 PM BUFFING WHEEL PRESSER Respiratory Rule-Out 01/23/2025 01/23/2025 025 4:19 PM CDT documented as of this encounter Care Teams Sales And In Home Delivery Specialist Relationship Specialty Start Date End Date Osmany Amezcua MD PCP - General 01/21/13 06/23/20 Saba uJne, TIRE AND LUBE TECHNICIAN-C PCP - General Nurse Practitioner Family 06/24/2012/17 Mike Braden DO PCP - General FAMILY PRACTICE 01/13/22 02/18/24 Pratibha Corado, DEVELOPMENT TEAM LEAD- [address] [facility], [address] [place] [address] PCP - General NURSE PRACTITIONER 02/25/24 documented as of this encounter
--- OUTSIDE RECORDS SUMMARY | 2025-01-31 14:56 | XMS_ITS | Encounter Summary ---
Author Organization [facility] Address [facility] [place] [address] Care Team Providers Care Comber Tender Name Role Phone Osmany Amezcua MD Primary Care Provider [phone] Saba June ELECTRICAL LOGGER-C Primary Care Provider Mike Braden DO Primary Care Provider Pratibha Corado FIELD CANE SCALE CLERK- Primary Care Provider + Encounter Details Date Type Department Care Team (Late st Contact Info) Description 08/30/2012 Abstract [facility] Conversion Md, Generic Conversion, Social History Tobacco Use Types Packs/Day Years Used Date Smoking Tobacco: Never Assessed Comments Unknown Sex and Gender Information Value Date Recorded Sex Assigned at Female 11/28/2024 8:47 AM DEPUTY TREASURER Legal Sex Female 6:18 PM CDT Gender Identity Not on file Sexual Orientation Not on file documented as of this encounter Plan of Treatment Upcoming Encounters Date Type Department Care Team (Late st Contact Info) Description 05/29/2025 10:00 AM CDT Office Visit [facility] [address] [place] [phone] Pratibha Corado, [facility]- [address] [facility], [address] [place] [address] documented as of this encounter Visit Diagnoses Not on filedocumented in this encounter Additional Health Concerns Infection Onset Date Last Indicated Resolved Time COVID-19 Rule Out 12/31/2021 12/31/2021 12/31/2021 9:49 PM DEPUTY TREASURER COVID-19 Rule Out 12/26/2022 12/26/2022 12/26/2022 9:18 PM DEPUTY TREASURER COVID-19 Rule Out 04/27/2024 04/27/2024 04/27/2024 3:07 PM CDT Respiratory Rule-Out 01/20/2025 01/20/2025 025 2:49 PM DEPUTY TREASURER Respiratory Rule-Out 01/23/2025 01/23/2025 025 4:19 PM CDT documented as of this encounter Care Teams Comber Tender Relationship Specialty Start Date End Date Osmany Amezcua MD PCP - General 01/21/13 06/23/20 Saba June, ELECTRICAL LOGGER-C PCP - General Nurse Practitioner Family 06/24/2012/17 Mike Braden DO PCP - General FAMILY PRACTICE 01/13/22 02/18/24 Pratibha Corado, FIELD CANE SCALE CLERK- [address] [facility], [address] [place] [address] PCP - General NURSE PRACTITIONER 02/25/24 documented as of this encounter
--- OUTSIDE RECORDS SUMMARY | 2025-01-31 14:56 | XMS_ITS | Encounter Summary ---
Author Organization [facility] Address [facility] [place] [address] Care Team Providers Care Self Defense Instructor Name Role Phone Osmany Amezcua MD Primary Care Provider [phone] Saba June METALLURGICAL LABORATORY ASSISTANT-C Primary Care Provider Mike Braden DO Primary Care Provider Pratibha Corado PRINCIPAL SOFTWARE ARCHITECT- Primary Care Provider + Encounter Details Date Type Department Care Team (Late st Contact Info) Description 02/05/2014 Abstract [facility] Conversion Md, Generic Conversion, Social History Tobacco Use Types Packs/Day Years Used Date Smoking Tobacco: Never Assessed Comments Unknown Sex and Gender Information Value Date Recorded Sex Assigned at Female 11/28/2024 8:47 AM BRICK BAKER Legal Sex Female 6:18 PM CDT Gender Identity Not on file Sexual Orientation Not on file documented as of this encounter Plan of Treatment Upcoming Encounters Date Type Department Care Team (Late st Contact Info) Description 05/29/2025 10:00 AM CDT Office Visit [facility] [address] [place] [phone] Pratibha Corado, [facility]- [address] [facility], [address] [place] [address] documented as of this encounter Visit Diagnoses Not on filedocumented in this encounter Additional Health Concerns Infection Onset Date Last Indicated Resolved Time COVID-19 Rule Out 12/31/2021 12/31/2021 12/31/2021 9:49 PM BRICK BAKER COVID-19 Rule Out 12/26/2022 12/26/2022 12/26/2022 9:18 PM BRICK BAKER COVID-19 Rule Out 04/27/2024 04/27/2024 04/27/2024 3:07 PM CDT Respiratory Rule-Out 01/20/2025 01/20/2025 025 2:49 PM BRICK BAKER Respiratory Rule-Out 01/23/2025 01/23/2025 025 4:19 PM CDT documented as of this encounter Care Teams Self Defense Instructor Relationship Specialty Start Date End Date Osmany Amezcua MD PCP - General 01/21/13 06/23/20 Saba June, METALLURGICAL LABORATORY ASSISTANT-C PCP - General Nurse Practitioner Family 06/24/2012/17 Mike Braden DO PCP - General FAMILY PRACTICE 01/13/22 02/18/24 Pratibha Corado, PRINCIPAL SOFTWARE ARCHITECT- [address] [facility], [address] [place] [id number] PCP - General NURSE PRACTITIONER 02/25/24 documented as of this encounter
--- OUTSIDE RECORDS SUMMARY | 2025-01-31 14:56 | XMS_ITS | Clinical Summary ---
Author Organization [facility] Address [address] [place] [address] Care Team Providers Care Keel Press Operator Name Role Phone MickieAlison francolavern Harvey [facility] Primary Care Provider + Allergies Active Allergy Reactions Criticality Noted Date Comments Cefepime Rash Low 01/24/2025 Medications risperiDONE 0.5 MG tablet Take 1 tablet (0.5 mg total) by mouth nightly at bedtime. 04/25/20 12 Active risperiDONE 1 MG tablet Take 1 tablet (1 mg total) by mouth 2 (two) times daily. 04/11/20 15 Active neomycin-bacitra nxb-[id number]-gs amoxine 1 % Ointment ointment Apply topically 2 (two) times daily as needed (Lesions). 12/03/19 16 Active ClomiPRAMINE HCl 50 MG Cap Take 1 capsule (50 mg total) by mouth nightly at bedtime. 04/11/20 15 Active oxybutynin ER 5 MG 24 hr tablet Take 1 tablet (5 mg total) by mouth nightly at bedtime. 12/03/19 16 Active loperamide 2 MG capsule Take 1 capsule (2 mg total) by mouth 4 (four) times daily as needed for Diarrhea. Active Docusate Sodium (DSS) 100 MG Cap Take 100 mg by mouth 2 (two) times daily. Active clomiPRAMINE (ANAFRANIL) 25 MG capsule Take 1 capsule (25 mg total) by mouth daily. 01/13/20 24 Active Acetaminophen 500 MG CapIndications:A ge-related osteoporosis without current pathological fracture Take 1,000 mg by mouth every 6 (six) hours as needed (pain). 60 capsule 07/19/20 24 Active magnesium hydroxide (MILK OF MAGNESIA) 400 MG/5ML suspensionIndica tions:Constipati on Take 30 mLs by mouth daily as needed for Constipation. 360 mL 09/04/20 24 Active Cholecalciferol (VITAMIN D3) 50 MCG (1999 UT) CapIndications:V itamin D deficiency TAKE 1 CAPSULE BY MOUTH ONCE EVERY DAY FOR VITAMIN-D DEFICIENCY 31 capsule 11 09/04/20 24 Active Additional Information Patient taking differently: 2,000 Units Oral Daily, Reported on 01/20/2025 fluticasone propionate (FLONASE) 50 MCG/ACT nasal sprayIndications :Mild intellectual disabilities INHALE 2 SPRAYS IN EACH NOSTRIL EVERY NIGHT AT BEDTIME FOR CHRONIC RHINITIS 16 g 5 09/29/20 24 Active Additional Information Patient taking differently: 2 spray Each Nostril Nightly PRN, Allergies, Reported on 01/20/2025 bisacodyl EC (DULCOLAX) 5 MG Tab EC tabletIndication s:Other constipation Take 2 tablets (10 mg total) by mouth every 8 (eight) hours as needed. If no BM for 3 days 30 tablet 11/28/19 25 Active metoprolol tartrate (LOPRESSOR) 25 MG tabletIndication s:Essential hypertension Take 1 tablet (25 mg total) by mouth 2 (two) times daily. 180 tablet 1 11/28/19 25 Active potassium chloride CR (K-TAB) 10 MEQ Tab CR tabletIndication s:Hypokalemia Take 2 tablets (20 mEq total) by mouth daily. Corrected script 62 tablet 5 11/28/19 25 Active vitamin C (ASCORBIC ACID) 500 MG tabletIndication s:Mild intellectual disabilities Take 1 tablet (500 mg total) by mouth 2 (two) times a day. Corrected script 62 tablet 5 11/28/19 25 Active magnesium oxide (MAG-OX) 250 MG tablet Take 1 tablet (250 mg total) by mouth daily. Active omeprazole EC (PRILOSEC OTC) 20 MG tablet Take 1 tablet (20 mg total) by mouth daily. Active B Complex-C Tab tablet Take 1 tablet by mouth daily. Active guaiFENesin (ROBITUSSIN) 100 MG/5ML solution Take 10 mLs (200 mg total) by mouth every 4 (four) hours as needed for Cough. Active amLODIPine (NORVASC) 5 MG tablet Take 1 tablet (5 mg total) by mouth daily. 30 tablet 02/01/20 25 Active amoxicillin-clav ulanate (AUGMENTIN) 875-125 MG tablet Take 1 tablet (875 mg total) by mouth every 12 (twelve) hours for 6 days. 12 tablet 02/01/20 25 Active magnesium-alumin um-simethicone 200-200-20 MG/5ML suspension Take 15 mLs by mouth every 2 (two) hours as needed for Indigestion. 04/15/20 16 025 Discontin ued(Error ) sodium chloride 1 GM tablet Take 1 tablet (1 g total) by mouth daily. Discontin ued(Stop Taking at Discharge ) Incontinence Supplies MiscIndications: Incontinence 1 depend changing as needed. 300 each 3 12/11/19 23 025 Discontin ued(Error ) risperiDONE (RISPERDAL) 0.5 MG tablet Take 1 tablet (0.5 mg total) by mouth daily. 01/13/20 24 025 Discontin ued(Error ) guaiFENesin (ROBITUSSIN) 100 MG/5ML syrupIndications :Cough Take 10 mLs by mouth every 4 (four) hours as needed for Cough. 120 mL 06/02/20 24 025 Discontin ued(Error ) omeprazole (PRILOSEC) 20 MG capsuleIndicatio ns:Mild intellectual disabilities TAKE 1 CAPSULE BY MOUTH ONCE EVERY DAY FOR GERD 31 capsule 5 09/29/20 24 025 Discontin ued(Error ) B Complex Vitamins (B-COMPLEX HIGH POTENCY) Tab CRIndications:Mi ld intellectual disabilities TAKE 1 TABLET BY MOUTH ONCE EVERY DAY FOR VITAMIN DEFICIENCY 31 tablet 5 09/29/20 24 025 Discontin ued(Error ) magnesium oxide (MAG-OX) 250 MG tabletIndication s:Mild intellectual disabilities Take 1 tablet (250 mg total) by mouth daily. 31 tablet 5 11/28/19 25 025 Discontin ued(Error ) triamcinolone (KENALOG) 0.1 % creamIndications :Swelling of joint of upper arm, left Apply topically BID to affected area for 10 days PRN 453 g 11/28/19 25 025 Discontin ued(Error ) oyster shell calcium 500 mg, elemental, (OSCAL) 500 MG tabletIndication s:Mild intellectual disabilities Take 1 tablet (500 mg total) by mouth 3 (three) times daily. Corrected script 93 tablet 5 11/28/19 25 025 Discontin ued(Error ) neomycin-bacitra zackary-polymyxin (NEOSPORIN) 3.5-400-5000 ointment Apply topically 2 (two) times daily as needed for Other (Rash). 025 Discontin ued(Error ) Active Problems Problem Noted Date Diagnosed Date Pneumonia due to infectious organism 01/21/2025 Osteoporosis 05/17/2024 Choking episode 10/06/2021 Vitamin D deficiency 06/27/2020 Dyslipidemia 06/27/2020 Essential hypertension 06/27/2020 Gastritis 06/27/2020 Schizophrenia (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 Allergic rhinitis 01/31/2014 Resolved Problems Problem Noted Date Diagnosed Date Resolved Date Abdominal pain 04/10/2014 07/28/2021 Encounters Date Type Department Care Team Description 01/26/2025 Travel 01/24/2025 Travel 01/20/2025 11:02 AM WOOD MECHANIST - 01/31/2025 11:07 AM CDT Hospital Encounter [facility] [place] [address] Julissa Lorenzo PA Goldberg, Deborah, MD McHale, Sara A, MD Islam, Maaroof, MD Breathing Problem Discharge Disposition: Prison Facility 01/20/2025 Travel 12/22/2024 Telephone [facility] [address] [place] [address] Pratibha Isaac CHECKING CLERK-BC Therapy Plans (Prolia) 12/14/2024 Telephone [facility] [address] [place] [address] Pratibha Isaac CHECKING CLERK-BC Therapy Plans (Prolia order) 12/13/2024 12:02 PM WOOD MECHANIST - 12/13/2024 5:59 PM WOOD MECHANIST Emergency [facility] [place] [address] Jorge Ricardo MD Choking Discharge Disposition: Home or Self Care (Routine Discharge) 12/13/2024 Travel 12/08/2024 Scan [facility] Scanned, [facility] 11/28/2024 8:40 AM WOOD MECHANIST Office Visit [address] [address] Pratibha Isaac CHECKING CLERK-BC Follow Up 11/28/2024 Scan [facility] Scanned, [facility] 11/28/[address] [address] Pratibha Isaac, CHECKING CLERK-BC Medication Problem 11/28/2024 Travel from Last 3 Months Immunizations Name Administration Dates Next Due Influenza (Generic) 10/17/2013,09/29/2012 Influenza Adult (Generic) 10/17/2013,09/29/2012 [facility] COVID-19 (12+) MRNA, LNP-S, PF, 100 MCG/ 0.5 ML DOSE 02/13/2022,01/08/2021,12/05/2020 [facility] COVID-19 (REGISTRY NURSE IRIS HODAN), MRNA, LNP-S, PF, 50 MCG/ 0.25 ML DOSE 11/24/2021 Social History Tobacco Use Types Packs/Day Years Used Date Smoking Tobacco: Never Passive Smoke Exposure: Never Smokeless Tobacco: Never Tobacco Cessation:Counseling Given: No Alcohol Use Standard Drinks/Week Comments No 0 (1 standard drink = 0.6 oz pur e alcohol) B1300 Health Literacy Answer Date Recor ded How often do you need to hav e someone help you when you read instructions, pamphlets, or other written material from your doctor or pharmacy? Patient unable to respond 01/20/2025 [facility] Utilities Answer Date Recorded In the past 12 months has e electric, gas, oil, or water company threatened to shut off services in your [...] answer 01/20/2025 How often do you attend formerly [facility] or sabianist services? Patient unable to answer 01/20/2025 Do you belong to any clubs o r organizations such as oriental orthodox groups, unions, fraternal or athletic groups, or [...] Recorded Patient Health Questionnaire-2 Score 0 11/28/2024 [facility] Occupat ional Health - Occupational Stress Questionnaire Answer Date Recorded [...] any time in the past 12 m [facility], were you homeless or living in a chcf (including now)? Patient unable to answer 01/20/2025 Comments No Sex and Gender Information Value Date Recorded Sex Assigned at Female 11/28/2024 8:47 AM WOOD MECHANIST Legal Sex Female 6:18 PM CDT Gender [...] Height 152.4 cm (5') 01/20/2025 11:08 AM WOOD MECHANIST Body Mass Index 16.23 01/20/2025 11:08 AM WOOD MECHANIST Plan of Treatment Upcoming Encounters Date Type Department Care Team (Late st Contact Info) Description 05/29/2025 10:00 AM CDT Office Visit [facility] [address] [place] [address] Pratibha Isaac, [facility] [address] [facility], [address] [place] [address] Health Maintenance Due Date Last Done Comments DTaP, Tdap and Td Vaccines (1 - Tdap) 1973 Zoster Vaccines (1 of 2) 2004 Annual Medicare Wellness Visit 2019 Pneumococcal Vaccine: 65+ Years (1 of 1 - PCV) 2019 COVID-19 Vaccine ( - season) 2024 02/13/2022, 11/24/2021, 01/08/2021, Additional history exists Influenza Adult (#1) 2024 10/17/2013, 10/17/2013, 09/29/2012, Additional history exists Mammogram Screening 06/02/2025 06/02/2023 Colorectal Cancer Screening Colonoscopy (10 Years) 05/23/2028 05/23/2018 RSV Immunization or 60+ Years (1 - 1-dose 75+ series) 2029 Dexa Scan (General) Completed 04/18/2024 PHQ-2 (Physician [place]) Completed 11/28/2024 Hepatitis C Completed 01/29/2025 Meningococcal B Vaccine Aged Out No l onger eligible based on patient's age to complete this topic Meningococcal Vaccine Aged Out No heydi homero eligible based on patient's age to complete this topic RSV Immunizations Under 20 Months Aged Out No longer eligible based on patient's age to complete this topic Goals Goal Patient Goal Type Associated Problems Recent Progress Patient-Stated? Author Outpatient Goal Lifestyle No Vic Jackson RN Note: Able to return to current facility Procedures Procedure Name Priority Date/Time Associated Diagnosis Comments PROCALCITONIN (PCT) Routine 01/31/2025 6 :19 AM CDT C-REACTIVE PROTEIN Routine 01/31/2025 6: 19 AM CDT COMPREHENSIVE METABOLIC PANEL Routine 01/31/2025 6:19 AM CDT CBC W/DIFF AUTOMATED Routine 01/31/2025 6:19 AM CDT CBC W/DIFF AUTOMATED STAT 01/30/2025 1:43 PM CDT XR CHEST PORTABLE Today 01/30/2025 12: 28 PM CDT US ABD LIMITED Today 01/30/2025 9:34 AM CDT COMPREHENSIVE METABOLIC PANEL Routine 01/30/2025 6:35 AM CDT CBC W/DIFF AUTOMATED Routine 01/30/2025 6:35 AM CDT C-REACTIVE PROTEIN Routine 01/30/2025 6: 34 AM CDT PROCALCITONIN (PCT) Routine 01/30/2025 6 :34 AM CDT HEPATITIS PANEL,ACUTE Routine 01/29/2025 10:28 AM CDT PHOSPHORUS, INORGANIC PHOSPHATE Routine 01/29/2025 10:28 AM CDT MAGNESIUM Routine 01/29/2025 10:28 AM CDT PROCALCITONIN (PCT) Routine 01/29/2025 1 0:28 AM CDT C-REACTIVE PROTEIN Routine 01/29/2025 10 :28 AM CDT COMPREHENSIVE METABOLIC PANEL Routine 01/29/2025 10:28 AM CDT CBC W/DIFF AUTOMATED Routine 01/29/2025 10:28 AM CDT C-REACTIVE PROTEIN Routine 01/28/2025 7: 37 AM CDT PROCALCITONIN (PCT) Routine 01/28/2025 7 :37 AM CDT MAGNESIUM Routine 01/28/2025 7:37 AM CDT COMPREHENSIVE METABOLIC PANEL Routine 01/28/2025 7:37 AM CDT CBC W/DIFF AUTOMATED Routine 01/28/2025 7:37 AM CDT BASIC METABOLIC PANEL Routine 01/27/2025 5:59 AM CDT CBC W/DIFF AUTOMATED Routine 01/27/2025 5:59 AM CDT POCT GLUCOSE - HART DOCKED DEVICE Routine 01/26/2025 4:08 PM CDT POCT GLUCOSE - HART DOCKED DEVICE Routine 01/26/2025 10:15 AM CDT XR SPEECH SWALLOW KRISTINA ONLY Today 01/26/2025 10:13 AM CDT MAGNESIUM Routine 01/26/2025 6:28 AM CDT BASIC METABOLIC PANEL Routine 01/26/2025 6:28 AM CDT CBC W/DIFF AUTOMATED Routine 01/26/2025 6:28 AM CDT POCT GLUCOSE [...] ARTERIAL LAB STAT 01/23/2025 9:57 PM CDT MRSA SCREENING Routine 01/23/2025 9:20 PM CDT PRO-BRAIN NATRIURETIC PEPTIDE Routine 01/23/2025 9:20 PM CDT PROCALCITONIN (PCT) Routine 01/23/2025 9 :20 PM CDT POCT GLUCOSE - HART DOCKED [...] GAS, ARTERIAL LAB STAT 01/20/2025 2:45 PM WOOD MECHANIST CTA CHEST PE PROTOCOL STAT 01/20/2025 2:19 PM WOOD MECHANIST CULTURE, BACTERIA, BLOOD STAT 01/20/2025 1:39 PM WOOD MECHANIST RESPIRATORY PCR PANEL 2 STAT 01/20/2025 1:39 PM WOOD MECHANIST LACTIC ACID W REFLEX (SEPSIS) STAT 01/20/2025 1:[address] HEAD WO CON STAT 01/20/2025 12:25 PM WOOD MECHANIST XR CHEST PA+LAT STAT 01/20/2025 12:17 PM WOOD MECHANIST ECG 12-LEAD Routine 01/20/2025 11:35 AM WOOD MECHANIST MAGNESIUM STAT 01/20/2025 11:06 AM WOOD MECHANIST PRO-BRAIN NATRIURETIC PEPTIDE STAT 01/20/2025 11:06 AM WOOD MECHANIST D-DIMER, QUANTITATIVE STAT 01/20/2025 11:06 AM WOOD MECHANIST TROPONIN, QUANT STAT 01/20/2025 11:06 AM WOOD MECHANIST COMPREHENSIVE METABOLIC PANEL STAT 01/20/2025 11:06 AM WOOD MECHANIST CBC W/DIFF AUTOMATED STAT 01/20/2025 11:[address] CHEST WO CON STAT 12/13/2024 1:42 PM WOOD MECHANIST COMPREHENSIVE METABOLIC PANEL STAT 12/13/2024 12:43 PM WOOD MECHANIST CBC W/DIFF AUTOMATED STAT 12/13/2024 12:43 PM WOOD MECHANIST XR CHEST PORTABLE STAT 12/13/2024 12: 38 PM WOOD MECHANIST BONE DENSITY/DEXA Routine 04/18/2024 9:4 8 AM CDT Asymptomatic menopause MG SCREENING W PAM CLIFFORD DIGI Routine 06/02/2023 1:19 PM CDT Encounter for mammogram to establish baseline mammogram COLONOSCOPY GENERIC (SCAN ORDER) Routine 05/23/2018 from Last 3 Months or Most Recently Relevant to Health Maintenance Results * PROCALCITONIN (PCT) (01/31/2025 6:19 AM CDT) Only the most recent of5 resultswithin the time period is included. Procalcitonin 0.13 0.00 - 0.49 NG/ML 01/31/2025 8:06 AM CDT [facility] 01/31/2025 6:19 AM CDT Christ Sherman MD LABORATORY Final Result [facility] [address] [place] [address], * (ABNORMAL) COMPREHENSIVE METABOLIC PANEL (01/31/2025 6:19 AM CDT) Only the most recent of7 resultswithin the time period is included. [facility] GLUCOSE 100(H) 70 - 99 MG/DL 01/31/2025 7:25 AM CDT [facility] BUN 7 7 - 18 MG/DL 01/31/2025 7:25 AM CDT [facility] CREATININE S/P/B 0.42(L) 0.55 - 1.02 MG/DL 01/31/2025 7:25 AM CDT [facility] SODIUM S/P/B 139 136 - 145 MMOL/L 01/31/2025 7:25 AM CDT [facility] POTASSIUM S/P/B 3.6 3.5 - 5.1 MMOL/L 01/31/2025 7:25 AM CDT [facility] CHLORIDE S/P/B 102 97 - 115 MMOL/L 01/31/2025 7:25 AM CDT [facility] CO2 35.0(H) 21 - 32 MMOL/L 01/31/2025 7:25 AM CDT [facility] CALCIUM S/P/B 9.6 8.5 - 10.1 MG/DL 01/31/2025 7:25 AM CDT [facility] BILIRUBIN TOTAL S/P/B 0.5 0.2 - 1.2 MG/DL 01/31/2025 7:25 AM CDT [facility] Comment: THIS ASSAY IS NOT RECOMMENDED FOR PATIENTS UNDERGOING TREATMENT WITH ELTROMBOPAG DUE TO THE POTENTIAL FOR FALSELY ELEVATED RESULTS. TOTAL PROTEIN S/P/B 8.0 6.4 - 8.2 G/DL 01/31/2025 7:25 AM CDT [facility] ALBUMIN S/P/B 2.3(L) 3.4 - 5.0 G/DL 01/31/2025 7:25 AM CDT [facility] AST 71(H) 15 - 37 U/L 01/31/2025 7:25 AM CDT [facility] ALT 164(H) 14 - 55 U/L 01/31/2025 7:25 AM CDT [facility] ALKALINE PHOSPHATASE S/P/B 140(H) 50 - 136 U/L 01/31/2025 7:25 AM CDT [facility] ANION GAP 2.0 2 - 10 MMOL/L 01/31/2025 7:25 AM T [facility] BUN CREATININE RATIO 16.7 6 - 26 01/31/2025 7:25 AM T [facility] A/G RATIO 0.4(L) 1.0 - 2.0 RATIO 01/31/2025 7:25 AM T [facility] GFR ESTIMATE >90 >90 ML/MIN/1.7 3 M2 01/31/2025 7:25 AM T [facility] Comment: NOTE: eGFR is not calculated for patients <18 years of age or gender unknown. This is an estimated GFR calculation using the new CKD EPI creatinine equation without race and so does not require a correction factor for race. This estimated GFR should not be used for calculating drug doses. 01/31/2025 6:19 AM CDT Christ Sherman MD LABORATORY Final Result [facility] [address] [place] [address], [place] [phone] * (ABNORMAL) C-REACTIVE PROTEIN (01/31/2025 6:19 AM CDT) Only the most recent of4 resultswithin the time period is included. C-REACTIVE PROTEIN 10.20(H) <0.29 mg/dL 01/31/2025 7:25 AM CDT [facility] 01/31/2025 6:19 AM CDT Christ Sherman MD LABORATORY Final Result [facility] [address] [place] [address], * (ABNORMAL) CBC W/DIFF AUTOMATED (01/31/2025 6:19 AM CDT) Only the most recent of12 resultswithin the time period is included. WBC 13.14(H) 4.5 - 11.0 x10'3/uL 01/31/2025 7:41 AM CDT [facility] RBC 4.20 4.20 - 5.40 x10'6/uL 01/31/2025 7:41 AM CDT [facility] HGB 12.1 12.0 - 16.0 G/DL 01/31/2025 7:41 AM CDT [facility] HCT 38.0 38.0 - 48.0 % 01/31/2025 7:41 AM CDT [facility] MCV 90.5 81.0 - 99.0 FL 01/31/2025 7:41 AM CDT [facility] MCH 28.8 27.0 - 31.0 PG 01/31/2025 7:41 AM CDT [facility] MCHC 31.8(L) 32.0 - 36.0 G/DL 01/31/2025 7:41 AM CDT [facility] RDW 14.3 11.5 - 14.5 % 01/31/2025 7:41 AM CDT [facility] PLT 155 130 - 400 x10'3/uL 01/31/2025 7:41 AM CDT [facility] MPV 11.8 9.3 - 12.2 FL 01/31/2025 7:41 AM CDT [facility] DIFFERENTIAL TYPE AUTOMATED DIFFERENTIAL 01/31/2025 7:42 AM CDT [facility] NEUTROPHILS % 86.6 % 01/31/2025 7:42 AM CDT [facility] LYMPHOCYTES % 6.8 % 01/31/2025 7:42 AM T [facility] MONOCYTES % 5.3 % 01/31/2025 7:42 AM T [facility] EOSINOPHILS 0.5 % 01/31/2025 7:42 AM CDT [facility] BASOPHILS 0.1 % 01/31/2025 7:42 AM CDT [facility] IMMATURE GRANS % 0.7 % 02/01/20 7:42 AM CDT [facility] ABS. NEUTROPHILS 11.39(H) 1.80 - 7.70 x10'3/uL 01/31/2025 7:42 AM CDT [facility] ABS. LYMPHOCYTES 0.89(L) 1.00 - 4.80 x10'3/uL 01/31/2025 7:42 AM CDT [facility] ABS. MONOCYTES 0.69 0.24 - 0.86 x10'3/uL 01/31/2025 7:42 AM CDT [facility] ABS. EOSINOPHILS 0.07 0.04 - 0.36 x10'3/uL 01/31/2025 7:42 AM CDT [facility] ABS. BASOPHILS 0.01 0.01 - 0.08 x10'3/uL 01/31/2025 7:42 AM CDT [facility] ABS. IMMATURE GRANULOCYTES 0.09 0.00 - 0.49 x10'3/uL 01/31/2025 7:42 AM CDT [facility] RBC MORPHOLOGY RBC MORPHOLOGY APPEARS NORMAL. SLIDE REVIEWED. 01/31/2025 7:42 AM CDT [facility] PLT EST. ADEQUATE 01/31/2025 7:42 AM CDT [facility] 01/31/2025 6:1 9 AM CDT Christ Sherman MD LABORATORY Final Result [facility] [address] [place] [address], [place] [phone] * XR CHEST PORTABLE (01/30/2025 12:28 PM CDT) Only the most recent of5 resultswithin the time period is included. Anatomical Region Laterality Modality Chest Radiographic Yolis ging 01/30/2025 12:3 9 PM CDT Impressions 01/30/2025 12:40 PM CDT =====IMPRESSION:===== Similar right basilar consolidation compatible with pneumonia. Ordered By: CHRIST SHERMAN Interpreted By: Yoel Caal MD, 01/30/2025 12:39 PM Narrative 01/30/2025 12:[address] [facility] [address] [place], [place] [address] Examination: Chest x-ray 1 view Exam date/time: [...] Procedure Note Yoel Caal MD - 01/30/[address] [address] Examination: Chest x-ray 1 view Exam date/time: [...] consolidation compatible with pneumonia. Ordered By: CHRIST SHERMAN Interpreted By: Yoel Caal MD, 01/30/2025 12:39 PM us Christ Sherman MD GENERAL IMAGING Final Result * US ABD LIMITED (01/30/2025 9:34 AM CDT) Anatomical Region Laterality Modality Abdomen Ultrasound 01/30/2025 9:36 AM CDT Impressions 01/30/2025 9:38 AM CDT =====IMPRESSION:===== Cholelithiasis without sonographic evidence for acute cholecystitis. Ordered By: CHRIST SHERMAN Interpreted By: Yoel Caal MD, 01/30/2025 9:36 AM Narrative 01/30/2025 9:38 AM CDT [address] [address] EXAMINATION: Limited abdomen ultrasound: RUQ EXAM DATE/TIME: [...] Procedure Note Yoel Caal MD - 01/30/[address] [address] EXAMINATION: Limited abdomen ultrasound: RUQ EXAM DATE/TIME: [...] evidence for acute cholecystitis. Ordered By: CHRIST SHERMAN Interpreted By: Yoel Caal MD, 01/30/2025 9:36 AM Christ Sherman MD ULTRASOUND Final Result * HEPATITIS PANEL,ACUTE (01/29/2025 10:28 AM CDT) HEPATITIS B SURFACE AG NON-REACTI VE NON-REACTI VE 01/29/2025 7:27 PM CDT [facility] HEP B CORE IGM NON-REACTI VE NON-REACTI VE 01/29/2025 7:27 PM CDT [facility] HAV IGM NON-REACTI VE NON-REACTI VE 01/29/2025 7:27 PM CDT [facility] HEPATITIS C AB NON-REACTI VE NON-REACTI VE 01/29/2025 7:27 PM CDT [facility] 01/29/2025 10:2 8 AM CDT Christ Sherman MD LABORATORY Final Result Performing Organization Address City/[facility]/ZIP Co de Phone Number [facility] [address] [place] [id number], * PHOSPHORUS, INORGANIC PHOSPHATE (01/29/2025 10:28 AM CDT) PHOSPHORUS 3.0 2.5 - 4.9 MG/DL 01/29/2025 11:02 AM CDT [facility] 01/29/2025 10:2 8 AM CDT Christ Sherman MD LABORATORY Final Result Performing Organization Address [facility] Co de Phone Number [facility] [address] [place] [phone], * MAGNESIUM (01/29/2025 10:28 AM CDT) Only the most recent of4 resultswithin the time period is included. MAGNESIUM 2.4 1.8 - 2.4 MG/DL 01/29/2025 11:02 AM CDT [facility] 01/29/2025 10:2 8 AM CDT Christ Sherman MD LABORATORY Final Result Performing Organization Address City/[facility]/ZIP Co de Phone Number [facility] [address] [place] [phone], * (ABNORMAL) BASIC METABOLIC PANEL (01/27/2025 5:59 AM CDT) Only the most recent of7 resultswithin the time period is included. GLUCOSE 107(H) 70 - 99 MG/DL 01/27/2025 7:06 AM [facility] BUN 8 7 - 18 MG/DL 01/27/2025 7:06 AM [facility] CREATININE S/P/B 0.45(L) 0.55 - 1.02 MG/DL 01/27/2025 7:06 AM [facility] SODIUM S/P/B 144 136 - 145 MMOL/L 01/27/2025 7:06 AM [facility] POTASSIUM S/P/B 2.9(LL) 3.5 - 5.1 MMOL/L 01/27/2025 7:06 AM [facility] Comment: Critical Result(s) Called at: 07:05:27 on 01/27/2025 by: KATEY VANN to and read back by: GINGER HOLGUIN CHLORIDE S/P/B 106 97 - 115 MMOL/L 01/27/2025 7:06 AM [facility] CO2 36.4(H) 21 - 32 MMOL/L 01/27/2025 7:06 AM [facility] CALCIUM S/P/B 8.9 8.5 - 10.1 MG/DL 01/27/2025 7:06 AM [facility] ANION GAP 1.6(L) 2 - 10 MMOL/L 01/27/2025 7:06 AM [facility] BUN CREATININE RATIO 17.9 6 - 26 01/27/2025 7:06 AM [facility] GFR ESTIMATE >90 >90 ML/MIN/1.7 3 M2 01/27/2025 7:06 AM [facility] Comment: NOTE: eGFR is not calculated for patients <18 years of age or gender unknown. This is an estimated GFR calculation using the new CKD EPI creatinine equation without race and so does not require a correction factor for race. This estimated GFR should not be used for calculating drug doses. 01/27/2025 5:59 AM CDT Meron Sorto MD LABORATORY Final Result Performing Organization Address City/[facility] Co de Phone Number [facility] [address] [place] [address], [place] [phone] * (ABNORMAL) POCT glucose (01/26/2025 4:08 PM CDT) Only the most recent of6 resultswithin the time period is included. GLUCOSE POC 133(H) 70 - 99 mg/dL 01/26/2025 4:50 PM CDT [facility] 01/26/2025 4:08 PM CDT Meron Sorto MD POCT ORDERABLES - DEVICE Final Result Performing Organization Address [facility] Co de Phone Number [facility] [address] [place] [address], [place] [phone] * XR SPEECH SWALLOW??RKISTINA ONLY (01/26/2025 10:13 AM CDT) Anatomical Region Laterality Modality NA Radiographic Yolis ging 01/26/2025 5:09 PM CDT Impressions 01/26/2025 5:13 PM CDT =====IMPRESSION:===== No aspiration. Please see speech pathology recommendations. Ordered By: BRANDY DAWSON Interpreted By: Jorge Arroyo MD, 01/26/2025 5:09 PM Narrative 01/26/2025 5:[address] [facility] [address] [place], [place] [address] Examination: Modified barium swallow Exam date/time: 01/26/2025 [...] Procedure Note Jorge Arroyo MD - 01/26/[address] [address] Examination: Modified barium swallow Exam date/time: 01/26/2025 [...] Please see speech pathology recommendations. Ordered By: BRANDY DAWSON Interpreted By: Jorge Arroyo MD, 01/26/2025 5:09 PM us Brandy Dawson NP FLUOROSCOPY Fin al Result * (ABNORMAL) ARTERIAL BLOOD GAS (01/25/2025 10:33 AM CDT) Only the most recent of3 resultswithin the time period is included. PH ARTERIAL 7.44 7.35 - 7.45 01/25/2025 12:37 PM CDT [facility] PCO2 53.0(H) 35.0 - 45.0 MMHG 01/25/2025 12:37 PM CDT [facility] PO2 89.0 83.0 - 108.0 MMHG 01/25/2025 12:37 PM CDT [facility] TOTAL CO2 ARTERIAL 37.6(H) 19.0 - 24.0 MMOL/L 01/25/2025 12:37 PM CDT [facility] BASE EXCESS 9.9(H) 0.0 - 3.0 MMOL/L 01/25/2025 12:37 PM CDT [facility] O2 SATURATION 97 94.0 - 98.0 % 01/25/2025 12:37 PM CDT [facility] BICARB ARTERIAL 36.0(H) 21.0 - 28.0 MMOL/L 01/25/2025 12:37 PM CDT [facility] O2 ADMIN ARTERIAL 32% 01/25/2025 12:35 PM CDT [facility] DRAW SITE ARTERIAL RIGHT BRACHIAL 01/25/2025 12:35 PM CDT [facility] 01/25/2025 10:3 3 AM CDT us Brandy Dawson NP LABORATORY Fin al Result [facility] [address] [place] [address], [place] [phone] * MRSA SCREENING (01/24/2025 5:40 PM CDT) Only the most recent of2 resultswithin the time period is included. SPEC DESCRIPTION NASAL 01/24/2025 5:45 PM CDT [facility] SPECIAL REQUESTS NO SPECIAL REQUEST 01/24/2025 5:45 PM CDT [facility] CULTURE RESULT NO METHICILLIN RESISTANT STAPHYLOCOCCUS AUREUS ISOLATED 01/25/2025 12:24 PM CDT [facility] SPECIMEN FROM INTERNAL NOSE / Unknown 01/24/2025 5:40 PM CDT 01/24/2025 5:48 PM CDT Brandy Dawson NP MICROBIOLOGY - GENE RAL ORDERABLES Final Result [facility] [address] [place] [address], [place] [phone] * Vancomycin Random Level (01/24/2025 6:12 AM CDT) Pathologist [facility] [place] VANCOMYCIN RANDOM 8.1 MCG/ML 01/24/2025 7:14 AM CDT [facility] Comment:NO THERAPEUTIC RANGE AVAILABLE LAST DOSE UNKNOWN LAST DOSE 01/24/2025 8:11 AM CDT [facility] 01/24/2025 6:12 AM CDT us Shahida Davila MD LABORATORY Final Result [facility] [address] [place] [address], [place] [phone] * (ABNORMAL) PRO-BRAIN NATRIURETIC PEPTIDE (01/23/2025 9:20 PM CDT) Only the most recent of2 resultswithin the time period is included. Pathologist [facility] PRO-B TYPE NATRIURETIC PEPTIDE 812(H) <125 PG/ML 01/23/2025 10:10 PM CDT [facility] Comment: CUT POINTS ESTABLISHED BY INTERNATIONAL [...] Elvis Sosa DO LABORATORY Final Resu lt [facility] [address] [place] [address], [place] [phone] * RESPIRATORY PCR PANEL 2 (01/23/2025 3:01 PM CDT) Only the most recent of2 resultswithin the time period is included. Pathologist [facility] ADENOVIRUS PCR (RESP) NOT DETECTED NOT DETECTED 01/23/2025 4:19 PM CDT [facility] CORONAVIRUS 229E PCR (RESP) NOT DETECTED NOT DETECTED 01/23/2025 4:19 PM CDT [facility] CORONAVIRUS HKU1 PCR (RESP) NOT DETECTED NOT DETECTED 01/23/2025 4:19 PM CDT [facility] CORONAVIRUS NL63 PCR (RESP) NOT DETECTED NOT DETECTED 01/23/2025 4:19 PM CDT [facility] CORONAVIRUS OC43 PCR (RESP) NOT DETECTED NOT DETECTED 01/23/2025 4:19 PM CDT [facility] METAPNEUMOVIRUS PCR (RESP) NOT DETECTED NOT DETECTED 01/23/2025 4:19 PM CDT [facility] RHINOVIRUS/ENTEROV IRUS PCR (RESP) NOT DETECTED NOT DETECTED 01/23/2025 4:19 PM CDT [facility] INFLUENZA A PCR (RESP) NOT DETECTED NOT DETECTED 01/23/2025 4:19 PM CDT [facility] INFLUENZA B PCR (RESP) NOT DETECTED NOT DETECTED 01/23/2025 4:19 PM CDT [facility] PARAINFLUENZA 1 PCR (RESP) NOT DETECTED NOT DETECTED 01/23/2025 4:19 PM CDT [facility] PARAINFLUENZA 2 PCR (RESP) NOT DETECTED NOT DETECTED 01/23/2025 4:19 PM CDT [facility] PARAINFLUENZA 3 PCR (RESP) NOT DETECTED NOT DETECTED 01/23/2025 4:19 PM CDT [facility] PARAINFLUENZA 4 PCR (RESP) NOT DETECTED NOT DETECTED 01/23/2025 4:19 PM CDT [facility] RSV PCR (RESP) NOT DETECTED NOT DETECTED 01/23/2025 4:19 PM CDT [facility] B PARAPERTUSIS PCR (RESP) NOT DETECTED NOT DETECTED 01/23/2025 4:19 PM CDT [facility] BORDETELLA PERTUSSIS PCR (RESP) NOT DETECTED NOT DETECTED 01/23/2025 4:19 PM CDT [facility] CHLAMYDOPHILA PNEUMONIAE PCR (RESP) NOT DETECTED NOT DETECTED 01/23/2025 4:19 PM CDT [facility] MYCOPLASMA PNEUMONIAE PCR (RESP) NOT DETECTED NOT DETECTED 01/23/2025 4:19 PM CDT [facility] CORONAVIRUS SARS COV 2 PCR (RESP) NOT DETECTED NOT DETECTED 01/23/2025 4:19 PM CDT [facility] NASOPHARYNGEAL SWAB / Unknown 01/23/2025 3:01 PM CDT Shahida Davila MD MICROBIOLOGY - GENERAL ORDER CHATO Final Result [facility] [address] [place] [address], * CT HEAD WO CON (01/23/2025 2:50 PM CDT) Only the most recent of2 resultswithin the time period is included. Anatomical Region Laterality Modality Head Computed Tomogra [...] 4:26 PM Narrative 01/23/2025 4:[address] [facility] [address] [place], [place] [address] Exam: CT head without contrast Exam Date/Time: [...] Procedure Note Henrry Luna MD - 01/23/[address] [address] Exam: CT head without contrast Exam Date/Time: [...] By: Henrry Luna MD, 01/23/2025 4:26 PM Shahida Davila MD CT Final Result * CT CHEST WO CON (01/23/2025 2:50 PM CDT) Only the most recent of2 resultswithin the time period is included. Anatomical Region Laterality Modality Chest Computed Tomogra [...] 4:36 PM Narrative 01/23/2025 4:[address] [facility] [address] [place], [place] [address] Exam: CT CHEST WO CON Exam Date/Time: [...] Procedure Note Henrry Luna MD - 01/23/[address] [address] Exam: CT CHEST WO [facility] Exam Date/Time: 01/23/2025 2:43 PM Indication: 69-year-old [...] Shahida Davila MD CT Final Result * CTA CHEST PE PROTOCOL (01/20/2025 2:19 PM WOOD MECHANIST) Anatomical Region Laterality Modality Chest Computed Tomogra phy 01/20/2025 2:28 PM WOOD MECHANIST Impressions 01/20/2025 2:32 PM WOOD MECHANIST IMPRESSION: 1. No CT evidence of pulmonary thromboembolism. 2. Dependent secretions and/or mucous plugging in the left mainstem bronchus and left lower lobe bronchi. Patchy bibasilar opacities could be due to atelectasis or infection. 3. Please see above for additional chronic, incidental, and nonemergent findings elsewhere. Referred By: Interpreted By: Vincent Marcus MD, 01/20/2025 2:28 PM Narrative 01/20/2025 2:32 PM WOOD MECHANIST [facility] [place] [address] EXAMINATION: CTA CHEST WITH CONTRAST, PULMONARY EMBOLISM [...] Procedure Note Vincent Marcus MD - 01/20/2025 [place] [address] EXAMINATION: CTA CHEST WITH CONTRAST, PULMONARY EMBOLISM [...] By: Vincent Marcus MD, 01/20/2025 2:[address] Final Result * LACTIC ACID W REFLEX (SEPSIS) (01/20/2025 1:39 PM WOOD MECHANIST) [facility] LACTIC ACID VENOUS 1.9 0.4 - 2.0 MMOL/L 01/20/2025 2:23 PM WOOD MECHANIST [facility] 01/20/2025 1:39 PM WOOD MECHANIST Julissa ORTIZ LABORATORY Final Result [facility] [address] [place] [address], [place] [phone] * CULTURE BACTERIA, BLOOD (01/20/2025 1:39 PM WOOD MECHANIST) Pathologist [facility] [place] SPEC DESCRIPTION BLOOD 01/20/2025 12:48 PM WOOD MECHANIST [facility] SPECIAL REQUESTS NO SPECIAL REQUEST 01/20/2025 12:48 PM WOOD MECHANIST [facility] CULTURE RESULT NO GROWTH 5 DAYS 01/25/2025 3:04 PM CDT [facility] BLOOD SPECIMEN OBTAINED FOR BLOOD CULTURE / Unknown 01/20/2025 1:39 PM WOOD MECHANIST 01/20/2025 1:53 PM WOOD MECHANIST Julissa ORTIZ MICROBIOLOGY - GENERAL ORDERA BLES Final Result [facility] [address] [place] [address], * XR CHEST PA+LAT (01/20/2025 12:17 PM WOOD MECHANIST) Anatomical Region Laterality Modality Chest Radiographic Yolis ging 01/20/2025 12:2 1 PM WOOD MECHANIST Impressions 01/20/2025 12:22 PM WOOD MECHANIST IMPRESSION: ======== 1. Minimal infiltrates or atelectasis at the right lung base Referred By: Interpreted By: Stephen Wall MD, 01/20/2025 12:21 PM Narrative 01/20/2025 12:[address] [facility] [address] [place], [place] [address] Examination: Chest x-ray 2 view Exam Date/Time: [...] Procedure Note Stephen Wall MD - 01/20/[address] [address] Examination: Chest x-ray 2 view Exam Date/Time: [...] Stephen Wall MD, 01/20/2025 12:21 PM us Julissa ORTIZ GENERAL IMAGING Final Result * ECG 12 lead (01/20/2025 11:35 AM WOOD MECHANIST) 01/20/2025 11:3 5 AM WOOD MECHANIST Narrative [facility] ([place]) RAD - 01/20/2025 12:29 PM WOOD MECHANIST [address] Test Date: 2025-01-20 Pat Name: MARIA DEL CARMEN JONES Department: 41 Room: [id number] Gender: Female Back Tacker: : 1955 Requested By: JULISSA LORENZO Order Number: [id number] Reading : Chevy Dodson Measurements Intervals Mouthcard Rate: 85 P: 17 [place]: 149 QRS: -26 QRSD: 91 T: 30 QT: 293 QTc: 349 Interpretive Statements SINUS RHYTHM VOLTAGE CRITERIA FOR LVH [MEETS CRITERIA IN ONE OF: R(aVL), S(V1), R(V5), R(V5/V6)+S(V1)] POSSIBLE SEPTAL MYOCARDIAL INFARCTION [30 ms Q WAVE IN V1/V2], OF INDETERMINATE AGE Compared to ECG 04/27/2024 12:57:46 Left-axis deviation no longer present Myocardial infarct finding still present MECHANIST Procedure Note Chevy Dodson MD - 01/20/[address] [place] [address] Test Date: 2025-01-20 Pat Name: MARIA DEL CARMEN JONES Department: 41 Room: [id number] Gender: Female Back Tacker: : 1955 Requested By: JULISSA LORENZO Order Number: [id number] Reading : Chevy Dodson Measurements Intervals Mouthcard Rate: 85 P: 17 [place]: 149 QRS: -26 QRSD: 91 T: 30 QT: 293 QTc: 349 Interpretive Statements SINUS RHYTHM VOLTAGE CRITERIA FOR LVH [MEETS CRITERIA IN ONE OF: R(aVL), S(V1),R(V5), R(V5/V6)+S(V1)] POSSIBLE SEPTAL MYOCARDIAL INFARCTION [30 ms Q WAVE IN V1/V2], OF INDETERMINATE AGE Compared to ECG 04/27/2024 12:57:46 Left-axis deviation no longer present Myocardial infarct finding still present MECHANIST us Julissa ORTIZ ECG ORDERABLES Final Result [facility] ([place] RAD * (ABNORMAL) D-DIMER, QUANTITATIVE (01/20/2025 11:06 AM WOOD MECHANIST) D-DIMER 1,101(HH) 0 - 500 ng{FEU}/mL 01/20/2025 12:21 PM WOOD MECHANIST [facility] Comment: D-Dimer values less than or [...] called 01/20/2025 12:21 PM to EMERGENCY ROOM ([address]/[place] CARTY) by [id number]. Read Back: Yes 01/20/2025 11:0 6 AM WOOD MECHANIST Julissa ORTIZ LABORATORY Final Result [facility] [address] [place] [address], [place] [phone] * TROPONIN, QUANT (01/20/2025 11:06 AM WOOD MECHANIST) Pathologist [facility] TROPONIN I HIGH SENSITIVITY 7 <54 ng/L 01/20/2025 12:11 PM WOOD MECHANIST [facility] Comment: HIGH DOSES OF BIOTIN, TROPONIN-SPECIFIC AUTOANTIBODIES, AND ANTIBODY THERAPY CONTAINING HAMA MAY INTERFERE WITH THIS TEST RESULT. CORRELATION TO CLINICAL HISTORY AND PRESENTATION RECOMMENDED. 01/20/2025 11:0 6 AM WOOD MECHANIST Julissa ORTIZ LABORATORY Final Result Performing Organization Address City/[facility]/ZIP Co de Phone Number [facility] [address] [place] [id number] [phone] * BONE DENSITY/DEXA (04/18/2024 9:48 AM CDT) Anatomical Region Laterality Modality Bone Bone Density 04/19/2024 6:08 AM CDT Impressions 04/19/2024 6:09 AM CDT IMPRESSION: WHO Classification: osteoporosis. 8.5% interval decrease in bone mineral density of the left hip from 2017 comparison. FRAX: No score calculated as one or more T scores are at or below -2.5.. Referred By: PRATIBHA ISAAC Interpreted By: Stephen Wall MD, 04/19/2024 6:08 AM Narrative 04/19/2024 6:09 AM CDT Examination: Bone Density Axial Exam Date/Time: 04/18/2024 9:36 AM Reason For Exam: Asymptomatic menopausal 11/11/2017 DEXA scan Findings: DEXA bone densitometry The bone mineral density (BMD) was determined by dual-energy x-ray absorptiometry, the results are as follows: AP Lumbar Spine L1 through L4 BMD Patient (GM/SQCM): 0.762 T-Score (Standard deviations from young adult peak bone density): -2.6 Right femoral neck: BMD Patient (GM/SQCM): 0.668 T-Score (Standard deviations from young adult peak bone density): -1.6 Total Right femur: BMD Patient (GM/SQCM): 0.779 T-Score (Standard deviations from young adult peak bone density): -1.3 Recommendations: All patients should ensure an adequate intake of dietary calcium and vitamin D. The NOF recommend adults under the age of 50 need 1000 mg of calcium and 400-800 IU of vitamin D daily. Effective therapy for the prevention and treatment of osteoporosis include biphosphonates. Follow-up: People with diagnosed cases of osteoporosis or at high risk for fracture should have regular bone mineral density test. For patients eligible for Medicare, routine testing is allowed once every 2 years. Testing frequency can be increased to one year for patients who have rapidly progressing disease, those who are receiving or discontinuing medical therapy to restore bone mass, or have additional risk factors. Procedure Note Stephen Wall MD - 04/19/2024 Examination: Bone Density Axial Exam Date/Time: 04/18/2024 9:36 AM Reason For Exam: Asymptomatic menopausal 11/11/2017 DEXA scan Findings: DEXA bone densitometry The bone mineral density (BMD) was determined bydual-energy x-ray absorptiometry, the results are as follows: AP Lumbar Spine L1 through L4 BMD Patient (GM/SQCM): 0.762 T-Score (Standard deviations from young adult peak bonedensity): -2.6 Right femoral neck: BMD Patient (GM/SQCM): 0.668 T-Score (Standard deviations from young adult peak bonedensity): -1.6 Total Right femur: BMD Patient (GM/SQCM): 0.779 T-Score (Standard deviations from young adult peak bonedensity): -1.3 Recommendations: All patients should ensure an adequate intake of dietary calcium andvitamin D. The NOF recommend adults under the age of 50 need 1000 mg ofcalcium and 400-800 IU of vitamin D daily. Effective therapy for theprevention and treatment of osteoporosis include biphosphonates. Follow-up: People with diagnosed cases of osteoporosis or at high risk for fractureshould have regular bone mineral density test. [facility], routine testing is allowed once every 2 years. Testing frequencycan be increased to one year for patients who have rapidly progressingdisease, those who are receiving or discontinuing medical therapy torestore bone mass, or have additional risk factors. IMPRESSION: WHO Classification: osteoporosis. 8.5% interval decrease in bone mineraldensity of the left hip from 2017 comparison. FRAX: No score calculated as one or more T scores are at or below -2.5.. Referred By: PRATIBHA ISAAC Interpreted By: Stephen Wall MD, 04/19/2024 6:08 AM us Pratibha Isaac CHECKING CLERK-BC DEXA Final Re sult * MG SCREENING W PAM CLIFFORD DIGI (06/02/2023 1:19 PM CDT) Anatomical Region Laterality Modality Breast Bilateral Mammography 06/02/2023 4:20 PM CDT Narrative 06/02/2023 4:21 PM CDT EXAMINATION: BILATERAL SCREENING MAMMOGRAPHY Exam Date: 06/02/2023 1:00 PM CLINICAL INDICATION: 67 years of age female routine screening. COMPARISON: Dating back to 09/04/2014 TECHNIQUE: Digital CC & MLO views. Tomosynthesis imaging acquisition Study read with the assistance of a computer-aided detection system. TISSUE DENSITY: There are scattered areas of fibroglandular density. FINDINGS: No suspicious grouping of microcalcifications, architectural distortion, or new dominant suspicious nodule 3 dimensionally demonstrated in either breast. IMPRESSION: No interval features to suggest malignancy. In the absence of clinical symptoms, return for annual screening mammogram due in 1 year. RECOMMENDATION: Routine Screening, Bilateral in 1 year ASSESSMENT: ACR BI-RADS 1 - NEGATIVE Ordered By: MARVIN SHUKLA Interpreted By: Kenny Pennington MD, 06/02/2023 4:20 PM us Marvin Shukla DO MAMMO Final R esult * COLONOSCOPY (05/23/2018) us Documents Scanned SCANNING Final Result [facility] from Last 3 Months or Most Recently Relevant to Health Maintenance Insurance MEDICARE MEDICAID Advance Directives * Full Code (Latest Code Status on File) Date Activated Date Inactivated Comments 01/24/2025 7:49 AM 01/31/2025 1:12 PM * Full Code Date Activated Date Inactivated Comments 12/31/2021 10:36 PM 01/03/2022 3:32 AM * Full Code Date Activated Date Inactivated Comments 12/29/2021 5:46 PM 12/31/2021 3:53 PM Care Teams Keel Press Operator Relationship Specialty Start Date End Date Pratibha Isaac, CHECKING CLERK- [address] [facility], [address] [place] [address] PCP - General NURSE PRACTITIONER 02/25/24
--- OUTSIDE RECORDS SUMMARY | 2025-01-31 14:56 | XMS_ITS | Encounter Summary ---
Author Organization [facility] Address [facility] [place] [address] Care Team Providers Care Precision Honer Name Role Phone Osmany Amezcua MD Primary Care Provider [phone] Saba June BREAKFAST AND ROOM ATTENDANT-C Primary Care Provider [phone] Mike Braden DO Primary Care Provider Pratibha Corado GARDE MANGER- Primary Care Provider + Encounter Details Date Type Department Care Team (Late st Contact Info) Description 02/26/2014 Abstract [facility] Conversion Md, Generic Conversion, Social History Tobacco Use Types Packs/Day Years Used Date Smoking Tobacco: Never Assessed Comments Unknown Sex and Gender Information Value Date Recorded Sex Assigned at Female 11/28/2024 8:47 AM SAP BODS DEVELOPER Legal Sex Female 6:18 PM CDT Gender Identity Not on file Sexual Orientation Not on file documented as of this encounter Plan of Treatment Upcoming Encounters Date Type Department Care Team (Late st Contact Info) Description 05/29/2025 10:00 AM CDT Office Visit [facility] [address] [place] [phone] Pratibha Corado, [facility]- [address] [facility], [address] [place] [address] documented as of this encounter Visit Diagnoses Not on filedocumented in this encounter Additional Health Concerns Infection Onset Date Last Indicated Resolved Time COVID-19 Rule Out 12/31/2021 12/31/2021 12/31/2021 9:49 PM SAP BODS DEVELOPER COVID-19 Rule Out 12/26/2022 12/26/2022 12/26/2022 9:18 PM SAP BODS DEVELOPER COVID-19 Rule Out 04/27/2024 04/27/2024 04/27/2024 3:07 PM CDT Respiratory Rule-Out 01/20/2025 01/20/2025 025 2:49 PM SAP BODS DEVELOPER Respiratory Rule-Out 01/23/2025 01/23/2025 025 4:19 PM CDT documented as of this encounter Care Teams Precision Honer Relationship Specialty Start Date End Date Osmany Amezcua MD PCP - General 01/21/13 06/23/20 Saba June, BREAKFAST AND ROOM ATTENDANT-C PCP - General Nurse Practitioner Family 06/24/2012/17 Mike Braden DO PCP - General FAMILY PRACTICE 01/13/22 02/18/24 Pratibha Corado, GARDE MANGER- [address] [facility], [address] [place] [address] PCP - General NURSE PRACTITIONER 02/25/24 documented as of this encounter
--- OUTSIDE RECORDS SUMMARY | 2025-01-31 14:56 | XMS_ITS | Encounter Summary ---
Author Organization [facility] Address [facility] [place] [address] Care Team Providers Care Test Case Developer Name Role Phone Osmany Amezcua MD Primary Care Provider [phone] Saba June TRANSFER MAN-C Primary Care Provider Mike Braden DO Primary Care Provider Pratibha Corado CHANGE ATTENDANT- Primary Care Provider + Encounter Details Date Type Department Care Team (Late st Contact Info) Description 06/13/2014 Abstract [facility] Conversion Md, Generic Conversion, Social History Tobacco Use Types Packs/Day Years Used Date Smoking Tobacco: Never Assessed Comments Unknown Sex and Gender Information Value Date Recorded Sex Assigned at Female 11/28/2024 8:47 AM SALES ORDER COORDINATOR Legal Sex Female 6:18 PM CDT Gender Identity Not on file Sexual Orientation Not on file documented as of this encounter Plan of Treatment Upcoming Encounters Date Type Department Care Team (Late st Contact Info) Description 05/29/2025 10:00 AM CDT Office Visit [facility] [address] [place] [phone] Pratibha Corado, [facility]- [address] [facility], [address] [place] [address] documented as of this encounter Visit Diagnoses Not on filedocumented in this encounter Additional Health Concerns Infection Onset Date Last Indicated Resolved Time COVID-19 Rule Out 12/31/2021 12/31/2021 12/31/2021 9:49 PM SALES ORDER COORDINATOR COVID-19 Rule Out 12/26/2022 12/26/2022 12/26/2022 9:18 PM SALES ORDER COORDINATOR COVID-19 Rule Out 04/27/2024 04/27/2024 04/27/2024 3:07 PM CDT Respiratory Rule-Out 01/20/2025 01/20/2025 025 2:49 PM SALES ORDER COORDINATOR Respiratory Rule-Out 01/23/2025 01/23/2025 025 4:19 PM CDT documented as of this encounter Care Teams Test Case Developer Relationship Specialty Start Date End Date Osmany Amezcua MD PCP - General 01/21/13 06/23/20 Saba June, TRANSFER MAN-C PCP - General Nurse Practitioner Family 06/24/2012/17 Mike Braden DO PCP - General FAMILY PRACTICE 01/13/22 02/18/24 Pratibha Corado, CHANGE ATTENDANT- [address] [facility], [address] [place] [address] PCP - General NURSE PRACTITIONER 02/25/24 documented as of this encounter
--- OUTSIDE RECORDS SUMMARY | 2025-01-31 14:56 | XMS_ITS | Encounter Summary ---
Author Organization [facility] Address [facility] [place] [address] Care Team Providers Care Program Coordinator Executive Education Name Role Phone Osmany Amezcua MD Primary Care Provider [phone] Saba June OUTSIDE MACHINIST-C Primary Care Provider Mike Braden DO Primary Care Provider Pratibha Corado [facility] Primary Care Provider + Encounter Details Date Type Department Care Team (Late st Contact Info) Description 10/17/2013 Abstract [facility] [address] [place] [address] , Generic ConversionMD Social History Tobacco Use Types Packs/Day Years Used Date Smoking Tobacco: Never Assessed Comments Unknown Sex and Gender Information Value Date Recorded Sex Assigned at Female 11/28/2024 8:47 AM TYPE INSPECTOR Legal Sex Female 6:18 PM CDT Gender Identity Not on file Sexual Orientation Not on file documented as of this encounter Plan of Treatment Upcoming Encounters Date Type Department Care Team (Late st Contact Info) Description 05/29/2025 10:00 AM CDT Office Visit [facility] [address] [place] [address] Pratibha Corado, [facility] [address] [facility] [[email or web address]], [address] [place] [address] documented as of this encounter Visit Diagnoses Not on filedocumented in this encounter Additional Health Concerns Infection Onset Date Last Indicated Resolved Time COVID-19 Rule Out 12/31/2021 12/31/2021 12/31/2021 9:49 PM TYPE INSPECTOR COVID-19 Rule Out 12/26/2022 12/26/2022 12/26/2022 9:18 PM TYPE INSPECTOR COVID-19 Rule Out 04/27/2024 04/27/2024 04/27/2024 3:07 PM CDT Respiratory Rule-Out 01/20/2025 01/20/2025 025 2:49 PM TYPE INSPECTOR Respiratory Rule-Out 01/23/2025 01/23/2025 025 4:19 PM CDT documented as of this encounter Care Teams Program Coordinator Executive Education Relationship Specialty Start Date End Date Osmany Aemzcua MD PCP - General 01/21/13 06/23/20 Saba June, OUTSIDE MACHINIST-C PCP - General Nurse Practitioner Family 06/24/2012/17 Mike Braden DO PCP - General FAMILY PRACTICE 01/13/22 02/18/24 Pratibha Corado, HOOP BENDING MACHINE OPERATOR- [address] [facility] [[email or web address]], [address] [place] [address] PCP - General NURSE PRACTITIONER 02/25/24 documented as of this encounter
--- OUTSIDE RECORDS SUMMARY | 2025-01-31 14:56 | XMS_ITS | Encounter Summary ---
Author Organization [facility] Address [facility] [place] [address] Care Team Providers Care Central Office Operator Supervisor Name Role Phone Osmany Amezcua MD Primary Care Provider [phone] Saba June LIVESTOCK TRUCKER-C Primary Care Provider Mike Braden DO Primary Care Provider Pratibha Corado SENIOR NET WEB DEVELOPER- Primary Care Provider + Encounter Details Date Type Department Care Team (Late st Contact Info) Description 02/28/2014 Abstract [facility] Conversion Md, Generic Conversion, Social History Tobacco Use Types Packs/Day Years Used Date Smoking Tobacco: Never Assessed Comments Unknown Sex and Gender Information Value Date Recorded Sex Assigned at Female 11/28/2024 8:47 AM FIELD APPRAISER Legal Sex Female 6:18 PM CDT Gender Identity Not on file Sexual Orientation Not on file documented as of this encounter Plan of Treatment Upcoming Encounters Date Type Department Care Team (Late st Contact Info) Description 05/29/2025 10:00 AM CDT Office Visit [facility] [address] [place] [phone] Pratibha Corado, [facility]- [address] [facility], [address] [place] [address] documented as of this encounter Visit Diagnoses Not on filedocumented in this encounter Additional Health Concerns Infection Onset Date Last Indicated Resolved Time COVID-19 Rule Out 12/31/2021 12/31/2021 12/31/2021 9:49 PM FIELD APPRAISER COVID-19 Rule Out 12/26/2022 12/26/2022 12/26/2022 9:18 PM FIELD APPRAISER COVID-19 Rule Out 04/27/2024 04/27/2024 04/27/2024 3:07 PM CDT Respiratory Rule-Out 01/20/2025 01/20/2025 025 2:49 PM FIELD APPRAISER Respiratory Rule-Out 01/23/2025 01/23/2025 025 4:19 PM CDT documented as of this encounter Care Teams Central Office Operator Supervisor Relationship Specialty Start Date End Date Osmany Amezcua MD PCP - General 01/21/13 06/23/20 Saba June, LIVESTOCK TRUCKER-C PCP - General Nurse Practitioner Family 06/24/2012/17 Mike Braden DO PCP - General FAMILY PRACTICE 01/13/22 02/18/24 Pratibha Corado, SENIOR NET WEB DEVELOPER- [address] [facility], [address] [place] [address] PCP - General NURSE PRACTITIONER 02/25/24 documented as of this encounter
--- OUTSIDE RECORDS SUMMARY | 2025-01-31 14:56 | XMS_ITS | Encounter Summary ---
Author Organization [facility] Address [facility] [place] [address] Care Team Providers Care Extrusion Line Operator Name Role Phone Osmany Amezcua MD Primary Care Provider [phone] Saba June ART CLASS MODEL-C Primary Care Provider Mike Braden DO Primary Care Provider Pratibha Corado AUTOMATIC GLUING MACHINE OPERATOR- Primary Care Provider + Encounter Details Date Type Department Care Team (Late st Contact Info) Description 06/23/2013 Abstract [facility] Conversion Md, Generic Conversion, Social History Tobacco Use Types Packs/Day Years Used Date Smoking Tobacco: Never Assessed Comments Unknown Sex and Gender Information Value Date Recorded Sex Assigned at Female 11/28/2024 8:47 AM BRAIDING MACHINE TENDER Legal Sex Female 6:18 PM CDT Gender Identity Not on file Sexual Orientation Not on file documented as of this encounter Plan of Treatment Upcoming Encounters Date Type Department Care Team (Late st Contact Info) Description 05/29/2025 10:00 AM CDT Office Visit [facility] [address] [place] [phone] Pratibha Corado, [facility]- [address] [facility], [address] [place] [address] documented as of this encounter Visit Diagnoses Not on filedocumented in this encounter Additional Health Concerns Infection Onset Date Last Indicated Resolved Time COVID-19 Rule Out 12/31/2021 12/31/2021 12/31/2021 9:49 PM BRAIDING MACHINE TENDER COVID-19 Rule Out 12/26/2022 12/26/2022 12/26/2022 9:18 PM BRAIDING MACHINE TENDER COVID-19 Rule Out 04/27/2024 04/27/2024 04/27/2024 3:07 PM CDT Respiratory Rule-Out 01/20/2025 01/20/2025 025 2:49 PM BRAIDING MACHINE TENDER Respiratory Rule-Out 01/23/2025 01/23/2025 025 4:19 PM CDT documented as of this encounter Care Teams Extrusion Line Operator Relationship Specialty Start Date End Date Osmany Amezcua MD PCP - General 01/21/13 06/23/20 Saba June, ART CLASS MODEL-C PCP - General Nurse Practitioner Family 06/24/2012/17 Mike Braden DO PCP - General FAMILY PRACTICE 01/13/22 02/18/24 Pratibha Corado, AUTOMATIC GLUING MACHINE OPERATOR- [address] [facility], [address] [place] [address] PCP - General NURSE PRACTITIONER 02/25/24 documented as of this encounter
[2025-01-31 14:58] LABS: Arterial Blood Gas PEEP 5 cmH2O; Arterial Blood Gas Vent Mode CMV; Arterial Blood Gas Ventilator rate 20 /MIN; Device VENTILATOR; Site Drawn LEFT BRACHIAL
[2025-01-31 14:59] LABS: Arterial Blood Gas Pressure Support 0 cmH2O; Arterial Blood Gas Tidal Volume 350 ml
[2025-01-31 15:31] LABS: Add Urine Microscopic? YES; Appearance Urine Clear (Clear); Bacteria Urine None Seen /hpf; Bilirubin Urine Negative (Negative); Blood Urine Negative (Negative); Color Urine Yellow (Yellow); Glucose Urine UA Negative (Negative); Hyaline Casts Urine Present /lpf; Ketones Urine Negative (Negative); Leukocyte Esterase Ur Negative LEU/UL (Negative); Nitrate Urine Negative (Negative); Protein Urine 1+ mg/dL (Negative); RBC Urine 0-2 /hpf (0-2); Specific Grav Ur 1.013 (1.001-1.035); Squamous Epithelial Cell Urine Occasional /hpf (Few); Urobilinogen Urine 0.2 mg/dL (<2.0); WBC Urine 0-5 /hpf (0-3)
[2025-01-31 15:32] LABS: Estimated Glomerular Filt Rate > 60
[2025-01-31 15:37] LABS: Alanine Aminotransferase 132 U/L (6-35); Albumin Level 2.7 g/dL (3.5-5.1); Alkaline Phosphatase 120 U/L (38-126); Anion Gap 3 mmol/L (4-12); Aspartate Amino Transferase 60 U/L (14-36); Bilirubin,Total 0.6 mg/dL (0.2-1.3); Blood Urea Nitrogen 16 mg/dL (7-17); Calcium 8.5 mg/dL (8.4-10.2); Carbon Dioxide 38 mmol/L (22-30); Chloride 104 mmol/L (98-107); Estimated Glomerular Filt Rate > 60; Glucose 113 mg/dL (65-110); Potassium 3.7 mmol/L (3.4-5.0); Sodium 145 mmol/L (137-145)
[2025-01-31 15:59] LABS: Reflex Lactic Acid Yes or No Add Lactic
--- OUTSIDE RECORDS SUMMARY | 2025-01-31 16:01 | XMS_ITS | Encounter Summary ---
Author Organization [facility] Address [facility] [place] [address] Care Team Providers Care Vp Account Director Name Role Phone Osmany Amezcua MD Primary Care Provider [phone] Saba June STEAM TABLE ATTENDANT-C Primary Care Provider [phone] Mike Braden DO Primary Care Provider Pratibha Corado LITERATURE PROFESSOR- Primary Care Provider + Encounter Details Date Type Department Care Team (Late st Contact Info) Description 09/06/2018 Abstract [facility] Conversion Md, Generic Conversion, Social History Tobacco Use Types Packs/Day Years Used Date Smoking Tobacco: Never Assessed Comments Unknown Sex and Gender Information Value Date Recorded Sex Assigned at Female 11/28/2024 8:47 AM INSIDE UPHOLSTERER Legal Sex Female 6:18 PM CDT Gender Identity Not on file Sexual Orientation Not on file documented as of this encounter Plan of Treatment Upcoming Encounters Date Type Department Care Team (Late st Contact Info) Description 05/29/2025 10:00 AM CDT Office Visit [facility] [address] [place] [phone] Pratibha Corado, [facility]- [address] [facility], [address] [place] [address] documented as of this encounter Visit Diagnoses Not on filedocumented in this encounter Additional Health Concerns Infection Onset Date Last Indicated Resolved Time COVID-19 Rule Out 12/31/2021 12/31/2021 12/31/2021 9:49 PM INSIDE UPHOLSTERER COVID-19 Rule Out 12/26/2022 12/26/2022 12/26/2022 9:18 PM INSIDE UPHOLSTERER COVID-19 Rule Out 04/27/2024 04/27/2024 04/27/2024 3:07 PM CDT Respiratory Rule-Out 01/20/2025 01/20/2025 025 2:49 PM INSIDE UPHOLSTERER Respiratory Rule-Out 01/23/2025 01/23/2025 025 4:19 PM CDT documented as of this encounter Care Teams Vp Account Director Relationship Specialty Start Date End Date Osmany Amezcua MD PCP - General 01/21/13 06/23/20 Saba June, STEAM TABLE ATTENDANT-C PCP - General Nurse Practitioner Family 06/24/2012/17 Mike Braden DO PCP - General FAMILY PRACTICE 01/13/22 02/18/24 Pratibha Corado, LITERATURE PROFESSOR- [address] [facility], [address] [place] [address] PCP - General NURSE PRACTITIONER 02/25/24 documented as of this encounter
--- OUTSIDE RECORDS SUMMARY | 2025-01-31 16:01 | XMS_ITS | Encounter Summary ---
Author Organization [facility] Address Replaced by [facility] [place] [address] Care Team Providers Care Oracle Programmer Analyst Name Role Phone Osmany Amezcua MD Primary Care Provider [phone] Saba June ROUGE MIXER-C Primary Care Provider Mike Braden DO Primary Care Provider Pratibha Corado CENTRAL OFFICE MAINTAINER- Primary Care Provider + Encounter Details Date Type Department Care Team (Late st Contact Info) Description 11/26/2017 Abstract [facility] Conversion Md, Generic Conversion, Social History Tobacco Use Types Packs/Day Years Used Date Smoking Tobacco: Never Assessed Comments Unknown Sex and Gender Information Value Date Recorded Sex Assigned at Female 11/28/2024 8:47 AM SPLUNK ARCHITECT Legal Sex Female 6:18 PM CDT Gender Identity Not on file Sexual Orientation Not on file documented as of this encounter Plan of Treatment Upcoming Encounters Date Type Department Care Team (Late st Contact Info) Description 05/29/2025 10:00 AM CDT Office Visit [facility] [address] [place] [phone] Pratibha Corado, [facility]- [address] [facility], [address] [place] [address] documented as of this encounter Visit Diagnoses Not on filedocumented in this encounter Additional Health Concerns Infection Onset Date Last Indicated Resolved Time COVID-19 Rule Out 12/31/2021 12/31/2021 12/31/2021 9:49 PM SPLUNK ARCHITECT COVID-19 Rule Out 12/26/2022 12/26/2022 12/26/2022 9:18 PM SPLUNK ARCHITECT COVID-19 Rule Out 04/27/2024 04/27/2024 04/27/2024 3:07 PM CDT Respiratory Rule-Out 01/20/2025 01/20/2025 025 2:49 PM SPLUNK ARCHITECT Respiratory Rule-Out 01/23/2025 01/23/2025 025 4:19 PM CDT documented as of this encounter Care Teams Oracle Programmer Analyst Relationship Specialty Start Date End Date Osmany Amezcua MD PCP - General 01/21/13 06/23/20 Saba June, ROUGE MIXER-C PCP - General Nurse Practitioner Family 06/24/2012/17 Mike Braden DO PCP - General FAMILY PRACTICE 01/13/22 02/18/24 Pratibha Corado, CENTRAL OFFICE MAINTAINER- [address] [facility], [address] [place] [address] PCP - General NURSE PRACTITIONER 02/25/24 documented as of this encounter
--- OUTSIDE RECORDS SUMMARY | 2025-01-31 16:01 | XMS_ITS | Encounter Summary ---
Author Organization [facility] Address [facility] [place] [address] Care Team Providers Care Hard Tile Setter Name Role Phone Osmany Amezcua MD Primary Care Provider [phone] Saba June PRODUCTION PROOFREADER-C Primary Care Provider Mike Braden DO Primary Care Provider Pratibha Corado [facility] Primary Care Provider + Encounter Details Date Type Department Care Team (Late st Contact Info) Description 03/15/2017 Abstract [facility] [address] [place] [address] , Generic ConversionMD Social History Tobacco Use Types Packs/Day Years Used Date Smoking Tobacco: Never Assessed Comments Unknown Sex and Gender Information Value Date Recorded Sex Assigned at Female 11/28/2024 8:47 AM DIRECTOR SPECIAL EDUCATION Legal Sex Female 6:18 PM CDT Gender Identity Not on file Sexual Orientation Not on file documented as of this encounter Plan of Treatment Upcoming Encounters Date Type Department Care Team (Late st Contact Info) Description 05/29/2025 10:00 AM CDT Office Visit [facility] [address] [place] [address] Pratibha Corado, [facility] [address] [facility], [address] [place] [address] documented as of this encounter Visit Diagnoses Not on filedocumented in this encounter Additional Health Concerns Infection Onset Date Last Indicated Resolved Time COVID-19 Rule Out 12/31/2021 12/31/2021 12/31/2021 9:49 PM DIRECTOR SPECIAL EDUCATION COVID-19 Rule Out 12/26/2022 12/26/2022 12/26/2022 9:18 PM DIRECTOR SPECIAL EDUCATION COVID-19 Rule Out 04/27/2024 04/27/2024 04/27/2024 3:07 PM CDT Respiratory Rule-Out 01/20/2025 01/20/2025 025 2:49 PM DIRECTOR SPECIAL EDUCATION Respiratory Rule-Out 01/23/2025 01/23/2025 025 4:19 PM CDT documented as of this encounter Care Teams Hard Tile Setter Relationship Specialty Start Date End Date Osmany Amezcua MD PCP - General 01/21/13 06/23/20 Saba June, PRODUCTION PROOFREADER-C PCP - General Nurse Practitioner Family 06/24/2012/17 Mike Braden DO PCP - General FAMILY PRACTICE 01/13/22 02/18/24 Pratibha Corado, HEAD BANQUET WAITRESS- [address] [facility], [address] [place] [address] PCP - General NURSE PRACTITIONER 02/25/24 documented as of this encounter
--- OUTSIDE RECORDS SUMMARY | 2025-01-31 16:01 | XMS_ITS | Encounter Summary ---
Author Organization [facility] Address [facility] [place] [address] Care Team Providers Care Clip Wrapper Name Role Phone Pratibha Corado [facility] Primary Care Provider + Encounter Details Date Type Department Care Team (Late st Contact Info) Description 05/17/2024 Therapy Plan [facility] [address] [place] [address] Pratibha Corado, [facility] [address] [address] Social History Tobacco Use Types Packs/Day Years [...] Sex Assigned at Female 11/28/2024 8:47 AM PSYCHOLOGIST PERSONNEL Legal Sex Female 6:18 PM CDT Gender Identity Not on file Sexual Orientation Not on file documented as of this encounter Functional Status * RETIRED Are you deaf or do you have serious difficulty hearing Answer Date of Assessment Author Status No 12/31/2021 11:42 PM PSYCHOLOGIST PERSONNEL Acti ve * RETIRED Are you blind or do you have serious difficulty seeing, even when wearing glasses? Answer Date of Assessment Author Status Yes 01/01/2022 4:50 AM PSYCHOLOGIST PERSONNEL Activ e * Do you have serious [...] CDT Office Visit [facility] [address] [place] [phone] Pratibha Corado FNP-BC [address] [facility], [facility] [address] [place] [address] documented as of this encounter Visit Diagnoses Not on filedocumented in this encounter Additional Health Concerns Infection Onset Date Last Indicated Resolved Time Respiratory Rule-Out 01/20/2025 01/20/2025 025 2:49 PM PSYCHOLOGIST PERSONNEL Respiratory Rule-Out 01/23/2025 01/23/2025 025 4:19 PM CDT documented as of this encounter Care Teams Clip Wrapper Relationship Specialty Start Date End Date Pratibha Corado FNP-GET [address] [facility], [address] [place], [place] [address] PCP - General NURSE PRACTITIONER 02/25/24 documented as of this encounter
--- OUTSIDE RECORDS SUMMARY | 2025-01-31 16:01 | XMS_ITS | Clinical Summary ---
Author Organization [facility] Address [address] [place] [address] Care Team Providers Care Visitor Services Coordinator Name Role Phone Unavailable Primary Care Provider Unavailabl e Source Comments [facility],non-owned Affiliates and Associated Physician Practices is amultiple site organization consisting of ambulatory clinics and hospital sitesin [place], [place], [place] and [place]. This disclosure is being madepursuant to the Care Everywhere program and may not contain all information available regarding this patient. Last updated 18.[facility] Allergies No known active allergies Medications * Be aware that medications may not be up to date on this document. Alwaysverify current medications with the patient. Medication Sig Dispensed Refills Start Date End Date Status fluticasone propionate (Flonase) 50 MCG/ACT nasal spray Grant 2 (two) sprays into each nostril once [...] Care Team Description 01/25/2025 3:40 PM CDT [facility] Documentation Encounter [facility] [address] [place] [address] Izabela Gore MD Karaffa, Melissa, BATCH MAKER-STEEL ENGRAVER Generalized anxiety disorder ; Excoriation (skin-picking) disorder 01/24/2025 Orders Only [facility] [address] [place] [address] Tania Rao APRN-STEEL ENGRAVER High risk medications (not anticoagulants) long-term use 01/22/2025 Orders Only [facility] [address] [place] [address] Tania Rao APRN-STEEL ENGRAVER High risk medications (not anticoagulants) long-term use [...] Comments Blood Pressure 130/81 12/13/2023 2:26 PM FARM REPORTER Pulse 80 12/13/2023 2:26 PM FARM REPORTER Temperature - - Respiratory Rate - - Oxygen Saturation - - Inhaled Oxygen Concentration - - Weight 49 kg (108 lb) 01/18/2025 2:00 PM FARM REPORTER Height - - Body Mass Index - [...]
--- OUTSIDE RECORDS SUMMARY | 2025-01-31 16:01 | XMS_ITS | Encounter Summary ---
Author Organization [facility] Address [facility] [place] [address] Care Team Providers Care Fraternity House Cook Name Role Phone Osmany Amezcua MD Primary Care Provider [phone] Saba June BOBBIN WINDER-C Primary Care Provider Mike Braden DO Primary Care Provider Pratibha Corado PAPER WRAPPING MACHINE OPERATOR- Primary Care Provider + Encounter Details Date Type Department Care Team (Late st Contact Info) Description 10/16/2015 Abstract [facility] Conversion Md, Generic Conversion, Social History Tobacco Use Types Packs/Day Years Used Date Smoking Tobacco: Never Assessed Comments Unknown Sex and Gender Information Value Date Recorded Sex Assigned at Female 11/28/2024 8:47 AM CUSTOMER EXPERIENCE CONSULTANT Legal Sex Female 6:18 PM CDT Gender Identity Not on file Sexual Orientation Not on file documented as of this encounter Plan of Treatment Upcoming Encounters Date Type Department Care Team (Late st Contact Info) Description 05/29/2025 10:00 AM CDT Office Visit [facility] [address] [place] [phone] Pratibha Corado, [facility]- [address] [facility], [address] [place] [address] documented as of this encounter Visit Diagnoses Not on filedocumented in this encounter Additional Health Concerns Infection Onset Date Last Indicated Resolved Time COVID-19 Rule Out 12/31/2021 12/31/2021 12/31/2021 9:49 PM CUSTOMER EXPERIENCE CONSULTANT COVID-19 Rule Out 12/26/2022 12/26/2022 12/26/2022 9:18 PM CUSTOMER EXPERIENCE CONSULTANT COVID-19 Rule Out 04/27/2024 04/27/2024 04/27/2024 3:07 PM CDT Respiratory Rule-Out 01/20/2025 01/20/2025 025 2:49 PM CUSTOMER EXPERIENCE CONSULTANT Respiratory Rule-Out 01/23/2025 01/23/2025 025 4:19 PM CDT documented as of this encounter Care Teams Fraternity House Cook Relationship Specialty Start Date End Date Osmany Amezcua MD PCP - General 01/21/13 06/23/20 Saba June, BOBBIN WINDER-C PCP - General Nurse Practitioner Family 06/24/2012/17 Mike Braden DO PCP - General FAMILY PRACTICE 01/13/22 02/18/24 Pratibha Corado, PAPER WRAPPING MACHINE OPERATOR- [address] [facility], [address] [place] [address] PCP - General NURSE PRACTITIONER 02/25/24 documented as of this encounter
--- OUTSIDE RECORDS SUMMARY | 2025-01-31 16:02 | XMS_ITS | Encounter Summary ---
Author Organization [facility] Address [facility] [place] [address] Care Team Providers Care Museum Attendant Name Role Phone Osmany Amezcua MD Primary Care Provider [phone] Saba June SUPERVISOR SILVERING DEPARTMENT-C Primary Care Provider Mike Braden DO Primary Care Provider Pratibha Corado INTERN ARCHITECT- Primary Care Provider + Encounter Details Date Type Department Care Team (Late st Contact Info) Description 02/26/2014 Abstract [facility] Conversion Md, Generic Conversion, Social History Tobacco Use Types Packs/Day Years Used Date Smoking Tobacco: Never Assessed Comments Unknown Sex and Gender Information Value Date Recorded Sex Assigned at Female 11/28/2024 8:47 AM PHARMACOGNOSY TEACHER Legal Sex Female 6:18 PM CDT Gender Identity Not on file Sexual Orientation Not on file documented as of this encounter Plan of Treatment Upcoming Encounters Date Type Department Care Team (Late st Contact Info) Description 05/29/2025 10:00 AM CDT Office Visit [facility] [address] [place] [phone] Pratibha Corado, [facility]- [address] [facility], [address] [place] [address] documented as of this encounter Visit Diagnoses Not on filedocumented in this encounter Additional Health Concerns Infection Onset Date Last Indicated Resolved Time COVID-19 Rule Out 12/31/2021 12/31/2021 12/31/2021 9:49 PM PHARMACOGNOSY TEACHER COVID-19 Rule Out 12/26/2022 12/26/2022 12/26/2022 9:18 PM PHARMACOGNOSY TEACHER COVID-19 Rule Out 04/27/2024 04/27/2024 04/27/2024 3:07 PM CDT Respiratory Rule-Out 01/20/2025 01/20/2025 025 2:49 PM PHARMACOGNOSY TEACHER Respiratory Rule-Out 01/23/2025 01/23/2025 025 4:19 PM CDT documented as of this encounter Care Teams Museum Attendant Relationship Specialty Start Date End Date Osmany Amezcua MD PCP - General 01/21/13 06/23/20 Saba June, SUPERVISOR SILVERING DEPARTMENT-C PCP - General Nurse Practitioner Family 06/24/2012/17 Mike Braden DO PCP - General FAMILY PRACTICE 01/13/22 02/18/24 Pratibha Corado, INTERN ARCHITECT- [address] [facility], [address] [place] [address] PCP - General NURSE PRACTITIONER 02/25/24 documented as of this encounter
--- OUTSIDE RECORDS SUMMARY | 2025-01-31 16:02 | XMS_ITS | Encounter Summary ---
Author Organization [facility] Address [facility], [facility] [place] [address] Care Team Providers Care Claims Counsel Name Role Phone Osmany Amezcua MD Primary Care Provider [phone] Saba June [employer]RO[employer] COURIER-C Primary Care Provider Mike Braden DO Primary Care Provider Pratibha Corado [facility] Primary Care Provider + Encounter Details Date Type Department Care Team (Late st Contact Info) Description 10/17/2013 Abstract [facility] CONVERSION [address] [place] [address] , Generic ConversionMD Social History Tobacco Use Types Packs/Day Years Used Date Smoking Tobacco: Never Assessed Comments Unknown Sex and Gender Information Value Date Recorded Sex Assigned at Female 11/28/2024 8:47 AM [employer] Legal Sex Female 6:18 PM CDT Gender Identity Not on file Sexual Orientation Not on file documented as of this encounter Plan of Treatment Upcoming Encounters Date Type Department Care Team (Late st Contact Info) Description 05/29/2025 10:00 AM CDT Office Visit [facility] [address] [place] [address] Pratibha Corado, [facility] [address] [facility], [address] [place] [address] documented as of this encounter Visit Diagnoses Not on filedocumented in this encounter Additional Health Concerns Infection Onset Date Last Indicated Resolved Time COVID-19 Rule Out 12/31/2021 12/31/2021 12/31/2021 9:49 PM [employer] COVID-19 Rule Out 12/26/2022 12/26/2022 12/26/2022 9:18 PM [employer] COVID-19 Rule Out 04/27/2024 04/27/2024 04/27/2024 3:07 PM CDT Respiratory Rule-Out 01/20/2025 01/20/2025 025 2:49 PM [employer] Respiratory Rule-Out 01/23/2025 01/23/2025 025 4:19 PM CDT documented as of this encounter Care Teams Claims Counsel Relationship Specialty Start Date End Date Osmany Amezcua MD PCP - General 01/21/13 06/23/20 Saba June, MAILROOM COURIER-C PCP - General Nurse Practitioner Family 06/24/2012/17 Mike Braden DO PCP - General FAMILY PRACTICE 01/13/22 02/18/24 Pratibha Corado, [employer]IC- [address] [facility], [address] [place] [address] PCP - General NURSE PRACTITIONER 02/25/24 documented as of this encounter
--- OUTSIDE RECORDS SUMMARY | 2025-01-31 16:02 | XMS_ITS | Encounter Summary ---
Author Organization [facility] Address [address] [place] [address] Care Team Providers Care Body And Fender Mechanic Apprentice Name Role Phone Pratibha Corado [facility] Primary Care Provider + Reason for Referral * Imaging (Urgent) - New Request Specialty Diagnoses / Procedures Referred By Contac t Referred To Contact RADIOLOGY Procedures US ABD LIMITED Christ Duoglass MD [address] [place] [address] Phone: tel: [phone] fax: Referral ID Status Reason Start Date Expiration Date V isits Requested Visits Authorized New Request 01/29/2025 01/29/2026 1 1 * (Routine) - Canceled Specialty Diagnoses / Procedures Referred By Contac t Referred To Contact Procedures POLICY ADVISER eval and treat [facility] [place] [address] Phone: tel: fax: Referral ID Status Reason Start Date Expiration Date V isits Requested Visits Authorized [id number] Canceled 01/23/2025 01/23/2026 1 1 * Imaging (Urgent) - New Request Specialty Diagnoses / Procedures Referred By Contac t Referred To Contact RADIOLOGY Procedures CT HEAD WO CON Shahida Davila MD [address] [place] [address] Phone: tel: [phone] fax: Referral ID Status Reason Start Date Expiration Date V isits Requested Visits Authorized New Request 01/23/2025 01/23/2026 1 1 * Imaging (Urgent) - New Request Specialty Diagnoses / Procedures Referred By Mulugeta t Referred To Contact RADIOLOGY Procedures CT CHEST WO CON Shahida Davila MD [address] [place] [address] Phone: tel: [phone] fax: Referral ID Status Reason Start Date Expiration Date V isits Requested Visits Authorized New Request 01/23/2025 01/23/2026 1 1 * (Routine) - Canceled Specialty Diagnoses / Procedures Referred By Adileneac t Referred To Contact Procedures PT eval and treat [facility] [address] [address] Phone: tel: fax: Referral ID Status Reason Start Date Expiration Date V isits Requested Visits Authorized [id number] Canceled 01/22/2025 01/22/2026 1 1 * Imaging (Emergency) - New Request Specialty Diagnoses / Procedures Referred By Contac t Referred To Contact RADIOLOGY Procedures CTA CHEST PE PROTOCOL Moriah Lorenzo PA [address] [place] [address] Phone: tel: fax: Referral ID Status Reason Start Date Expiration Date V isits Requested Visits Authorized [id number] New Request 01/20/2025 01/20/2026 1 1 T TESTER * Imaging (Emergency) - New Request Specialty Diagnoses / Procedures Referred By Mulugeta knapp Referred To Contact RADIOLOGY Procedures CT HEAD WO CON Moriah Lorenzo PA [address] [place] [address] Phone: tel: fax: Referral ID Status Reason Start Date Expiration Date V isits Requested Visits Authorized [id number] New Request 01/20/2025 01/20/2026 1 1 T TESTER Reason for Visit * Reason Comments Breathing Problem * Auth/Cert (Routine) Specialty Diagnoses / Procedures Referred By Mulugeta knapp Referred To Contact Diagnoses Pneumonia Weakness Pneumonia due to infectious organism Procedures NONE Shahida Davila MD [address] [place] [address] Phone: tel: [phone] fax: Referral ID Status Reason Start Date Expiration Date Visits Re quested Visits Authorized [id number] 1 1 Encounter Details Date Type Department Care Team (Late st Contact Info) Description 01/20/2025 11:02 AM FRUIT TESTER - 01/31/2025 11:07 AM CDT Hospital Encounter [facility] Telemetry [address] [place], [place] [id number] Moriah Lorenzo PA [address] [place] [address] Shhaida Davila MD [address] [place], [place] [phone]) Lexus Barroso MD [address] [place], [place] [id number] [phone] (Work) Christ Douglass MD [address] [place] [address] [phone] (Work) Breathing Problem Discharge Disposition: Senior Living Facility Social History Tobacco Use Types Packs/Day [...] or pharmacy? Patient unable to respond 01/20/2025 [facility] Utilities Answer Date Recorded In the past 12 months has e [employer], gas, oil, or water [employer] threatened to shut off services in your [...] answer 01/20/2025 How often do you attend [facility] or hindu services? Patient unable to answer 01/20/2025 Do you belong to any clubs o r organizations such as nondenominational groups, unions, fraternal or athletic groups, or [...] Recorded Patient Health Questionnaire-2 Score 0 11/28/2024 [facility] Occupational Stress Questionnaire Answer Date Recorded [...] any time in the past 12 m [facility], were you homeless or living in a penitentiary (including now)? Patient unable to answer 01/20/2025 Comments No Sex and Gender Information Value Date Recorded Sex Assigned at Female 11/28/2024 8:47 AM FRUIT TESTER Legal Sex Female 6:18 PM CDT Gender [...] Height 152.4 cm (5') 01/20/2025 11:08 AM FRUIT TESTER Body Mass Index 16.23 01/20/2025 11:08 AM FRUIT TESTER documented in this encounter Functional Status * [...] Care Everywhere. * Pneumonia Discharge Instructions, Adult (Tongan) * Amlodipine, ADULT (Tongan) * Amoxicillin and Clavulanate, ADULT (Tongan) documented in this encounter Medications at Time [...] times daily. 180 tablet 1 11/28/2024 neomycin-bacitraci k-ygzixarzs-boimmj ine 1 % Ointment ointment Apply topically [...] this encounter Progress Notes * Tg Schulte, SOAPING MACHINE BACK TENDER - 01/31/2025 11:07 AM CDT Patient is dc this date to [facility] in [place] accepted per Nicolasa for admission today. ELHAM spoke with Nita Hartley in the absence of pt's guardian Mateo Warren who confirmed consent for dc to [facility] today. Mr Warren was aware of anticipated plans from my conversation with him on the and in agreement. SW notified Nichole with the pt's assisted as well of dc. She will follow the patient at the SNF until pt is able to return to the assisted. Amb was arranged for transport due to [...] planned. SW complete and case closed. 01/31/25 4683 Discharge Planning Support Systems Caregiver staff (Guardian Mateo Warren) Type of Residence skilled nursing Patient expects to be discharged to: residential Facility( SNF) Insurance Authorization needed No Does [...] Infection Outcome: Progressing * Ruth Stevens, Nurse Oven Stripper II - 01/30/2025 4:40 PM CDT Problem: [...] 2:17 PM CDT Pt is accepted at [facility] [place] per Nicolasa including for admission today. Pending reviewof CBC which has been drawn the patient may yet dc today. Per Nicolasa the pt is able to admit later this afternoon. ELHAM spoke with Mateo Kelvin at [facility] who wants to be notified once confirmation of dc is known. Important Message from Medicare provided to patient/patient customer retention representative(guardian Mateo Warren). Education provided and patient/patient customer retention representative verbalized understanding and gave verbal permission to sign the IMM. Copy placed into chart for scanning and placed in dc packet to accompany the patient. 2:25 Upon review of most recent labs hospitalist plans to monitor overnight before moving forward with discharge. ELHAM has notified pt's guardian Mateo Warren as well as the OR rn admissions Nicolasa. Mr Warren is working remotely tomorrow but indicated to call the consent line and he will have notes in her chart that reflect he is agreeable to dc to [facility] in [place] at time of dc. * Tg Schulte [...] guardian Mateo Warren requested new referral to [facility] in [place] and if accepted prefers placement at [facility] over [facility]. No Barrier- Medical Milestone in Process follow [...] to Patient expects to be discharged to: residential Facility( SNF) * Nichole Ken PTA - [...] gait with min/mod x 2 with B PAPER MACHINE BACKTENDER. Cognition Overall Cognitive Status Impaired Attention Span Difficulty attending to directions Following Commands Follows one step commands inconsistently Initiation Cues to initiate tasks Bed Mobility Supine to Sit Mod assist to right;Max assist to right Sit to Supine Min assist to right TRANSFERS Sit to Stand Min assist;Mod assist;Assist of 2 Other (Comment) B PAPER MACHINE BACKTENDER Gait Gait Assistance Min assist;Mod assist;Assist of 2;With gait belt Assistive Device Other (Comment) (B PAPER MACHINE BACKTENDER) Distance Ambulated (ft) 45 ft Pattern Shuffle steps;R Foot flat;L Foot flat (narrow MOIRA) Other (Comment) Fluccuating amount of assist. VCs to stand upright. Unsteadiness at times when attempting to let go of PAPER MACHINE BACKTENDER but no LOB noted. Balance Sitting - Static Min Assist;Mod Assist;Support of both upper extremities Sitting - Dynamic Mod Assist;Support of both upper extremities Standing - Static Min Assist;Mod Assist;Assist of 2 Persons;Support of both upper extremities Standing - Dynamic Mod Assist;Assist of 2 Persons;Support of both upper extremities Other (Comment) PAPER MACHINE BACKTENDER Patient/Family Training Bed Mobility x Transfer Training x Gait Training x Precautions x Discharge Recommendation PT Recommendation Home with assistance;Home PT;PT at shelter Facility (PT @ assisted vs SNF pend progress) PT Equipment Recommended [...] 1033 PH 7.44 PCO2 53.0* PO2 89.0 [id number] 97 BICARBWB 36.0* BASEEXCESS 9.9* No results [...] CTA chest neg Cerebral palsy/schizophrenia/nonverbal Resides at assisted prior to admission. At baseline, nonverbal, but walks around independently Supportive care Continue home medications PT/OT to determine if patient needs rehab prior to return back to assisted. HTN: - bp now stable -Switched to oral metoprolol -Continue amlodipine - monitor BP DVT prophylaxis Heparin Sub Q SDOH Patient lives in assisted and is a bear of the state. [...] voiced understanding. This note was dictated with [employer] medical dictation software; misspellings, punctuation errors, omitted [...] infectious organism [J18.9]. Patient presented from a assisted with acute shortness of breath. EMS and the assisted staff reported the patient had acute signs [...] in room. Food allergies/intolerances: NKFA per EHR Cultural/Restoration food preferences: None reported in EHR Food [...] abdomen WDL with positive bowel sounds per documentation improvement specialist; last BM documented on 01/28/25 Chewing/swallowing problems: Yes; POLICY ADVISER saw patient on 01/26/25 and recommend puree diet with thin liquids. Skin: intact Nutrition-focused physical findings: Unable to conduct full exam at this time due to patient getting blood drawn. Mild muscle loss noted in the following area(s): scientologist region. Patient likely meets for malnutrition. Will [...] 6.5% CONSISTENT WITH DIABETES [place] [address] 03/03/2021 5.5 <5.7 % Final Comment: ADA GUIDELINES 2010 5.7 TO 6.4% INCREASED RISK OF DIABETES > OR = 6.5% CONSISTENT WITH DIABETES TEST[place] [address] Meds: Reviewed. No nutrition-related concerns noted at [...] cm Actual Body Weight (ABW): 38.4 kg Dewar Body Weight (IBW): 45.4 kg (ABW is 85% of IBW) Body Mass Index (BMI): 16.5 kg/m?? (Underweight) Estimated Nutrient Needs: Calories: 1238 kcal/day based on [place]-St Jeor x 1.5 (older adult) Protein: 58-77 gm/day based on 1.5-2 gm/kg, using ABW (older adult) Fluid: 1500 mL/day based on minimum intake recommendation for older adults Current diet order: Diet Dysphagia (IDDSI) 4-PUREED; 0-Thin; Appropriate Current diet appropriate? Yes; per POLICY ADVISER recommendations Current intake sufficient to meet nutritional [...] prescription: Dysphagia diet with food/fluid consistency per POLICY ADVISER recommendation + ONS (Ensure Plus once daily) Plan: 1. Continue dysphagia diet as tolerated with food/fluid consistency per POLICY ADVISER recommendation. 2. Initiate ONS of Ensure Plus [...] to have an outcome from [facility] [place] regarding ability to meet this patient's care needs. ELHAM spoke with Narda from [facility] and referral sent. * Vika Dacosta [...] x 1 and SBA x 1 and PAPER MACHINE BACKTENDER. Upon encouragement to take steps forward x [...] x 1 for safety) Other (Comment) B PAPER MACHINE BACKTENDER Gait Other (Comment) deferred Balance Sitting - Static Mod Assist;Support of both upper extremities Sitting - Dynamic Mod Assist;Max Assist;Support of both upper extremities Standing - Static Mod Assist;Support of both upper extremities Standing - Dynamic Mod Assist;Assist of 2 Persons;Support of both upper extremities Other (Comment) PAPER MACHINE BACKTENDER Patient/Family Training Bed Mobility x Transfer Training x Precautions x Discharge Recommendation PT Recommendation Home with assistance;Home PT;PT at shelter Facility (PT @ assisted vs SNF pend progress) PT Equipment Recommended To Be Determined Plan PT Treatments/Interventions Gait Training;Therapeutic Exercises;Therapeutic Activities;Neuromuscular re-education Progress Slow progress, cognitive deficits PT Frequency 5 times/week If this is the last treatment note,it will serve as the discharge summary Yes End of Session End of Session Safety Bed alarm set/activated;Call light within reach;Nursing aware of session Interdisciplinary Collaboration RN, FAC ENGINEER End of Session Comment left with sitter present * Tg Schulte LCSW - 01/29/2025 11:54 AM CDT Per [place] the OR is able to admit once pt is ready without sitter free 24 hrs threshold met as the sitter is not for behaviors other than pulling out previous IV access. 01/29/25 1148 Interdisciplinary Group Conference Team Members Present Physician;Case/Care management;Nursing;Pharmacy;Hand Printed Circuit Board Assembler Physician present for group conference Dr Douglass Patient Current Status Paient current status Inpatient Barriers to Discharge Inpatient Review Barriers to Discharge Inpatient No Barrier- Medical Milestone in Process Other follow up (Comment) Accepted at the OR without 24 hr sitter free parameter met as once the IVaccess line is dc the sitter will no longer be needed-but the line is still needed for labs. No Barrier- Medical Milestone in Process follow up Elevated LFT's-RUQ US planned. Administering IV meds follow up IV Zosyn dc Patient expects to be discharged to Patient expects to be discharged to: residential Facility( SNF) * Ceci Rosas RN - [...] 01/29/2025 11:07 AM CDT Per Esperanza with [facility] the patient is able to enter the [...] 1033 PH 7.44 PCO2 53.0* PO2 89.0 [id number] 97 BICARBWB 36.0* BASEEXCESS 9.9* No results [...] CTA chest neg Cerebral palsy/schizophrenia/nonverbal Resides at assisted prior to admission. At baseline, nonverbal, but walks around independently Supportive care Continue home medications PT/OT to determine if patient needs rehab prior to return back to assisted. HTN: - bp elevated today - continue IV Metoprolol for now, switch to oral soon - Added amlodipine - monitor BP DVT prophylaxis Heparin Sub Q SDOH Patient lives in assisted and is a bear of the [facility]. Code status FULL CODE Parth Warren is her [facility] appointed guardian. Disposition: Await RUQ u/s results. Monitor BP. Monitor electrolytes K mag phos LFTs bili. Other changes to plan of care to be made based on progress during hospitalization. All plans discussed with RN and patient. They are agreeable with plan and voiced understanding. This note was dictated with [employer] medical dictation software; misspellings, punctuation errors, omitted [...] 1033 PH 7.44 PCO2 53.0* PO2 89.0 [id number] 97 BICARBWB 36.0* BASEEXCESS 9.9* No results found. However, due to the size of the patient record, not all encounters were searched.Please check Results Review for a complete set of results. X-Ray Radiology Results (Last 30 days) 01/26/25 1013 XR SPEECH SWALLOW KRISTINA ONLY Final result Impression: =====IMPRESSION:===== No aspiration. Please see speech pathology recommendations. Ordered By: RADAH RODRIGEZ Interpreted By: Jorge Arroyo MD, 01/26/2025 [...] CTA chest neg Cerebral palsy/schizophrenia/nonverbal Resides at assisted prior to admission. At baseline, nonverbal, but walks around independently Supportive care Continue home medications PT/OT to determine if patient needs rehab prior to return back to assisted. HTN: - bp elevated today - continue IV Metoprolol for now, switch to oral soon - Added amlodipine - monitor BP DVT prophylaxis Heparin Sub Q SDOH Patient lives in assisted and is a bear of the [facility]. Code status FULL CODE Parth Warren is her state appointed guardian. Disposition: Monitor through weekend. Continue IV Zosyn. Monitor BP. Monitor electrolytes K mag phos LFTs bili. Other changes to plan of care to be made based on progress during hospitalization. All plans discussed with RN and patient. They are agreeable with plan and voiced understanding. This note was dictated with [employer] medical dictation software; misspellings, punctuation errors, omitted [...] 1033 PH 7.44 PCO2 53.0* PO2 89.0 [id number] 97 BICARBWB 36.0* BASEEXCESS 9.9* No results [...] CTA chest neg Cerebral palsy/schizophrenia/nonverbal Resides at assisted prior to admission. At baseline, nonverbal, but walks around independently Supportive care Continue home medications PT/OT to determine if patient needs rehab prior to return back to assisted. DVT prophylaxis Heparin Sub Q SDOH Patient lives in assisted and is a bear of the [facility]. Code status FULL CODE Parth Warren is her [facility] appointed guardian. Disposition: Monitor through weekend. Continue IV Zosyn. Watch and monitor electrolytes Other changes to plan of care to be made based on progress during hospitalization. All plans discussed with RN and patient. They are agreeable with plan and voiced understanding. This note was dictated with [employer] medical dictation software; misspellings, punctuation errors, omitted [...] encounter of 01/20/25 ECG 12 lead Narrative [place] Test Date: 2025-01-20 Pat Name: MARIA DEL CARMEN GOLDMAN Department: 41 Room: [place] [address] Gender: Female Client Development Manager: : 1955 Requested By: MORIAH LORENZO Order Number: [id number] Reading MD: Chevy Dodson Measurements Intervals [place] Rate: 85 P: 17 [place]: 149 QRS: -26 QRSD: 91 T: 30 QT: 293 QTc: 349 Interpretive Statements SINUS RHYTHM VOLTAGE CRITERIA FOR LVH [MEETS CRITERIA IN ONE OF: R(aVL), S(V1), R(V5), R(V5/V6)+S(V1)] POSSIBLE SEPTAL MYOCARDIAL INFARCTION [30 ms Q WAVE IN V1/V2], OF INDETERMINATE AGE Compared to ECG 04/27/2024 12:57:46 Left-axis deviation no longer present Myocardial infarct finding still present T TESTER Assessment/Plan: Aspiration pneumonia No signs of sepsis [...] CTA chest neg Cerebral palsy/schizophrenia/nonverbal Resides at assisted prior to admission. At baseline, nonverbal, but walks around independently Supportive care Continue home medications PT/OT to determine if patient needs rehab prior to return back to assisted. DVT prophylaxis Heparin Sub Q SDOH Patient lives in assisted and is a bear of the [facility]. Code status FULL CODE Parth Warren is her [facility] appointed guardian. LEXUS BARROSO MD 01/26/2025 6:36 PM * Elvis Sosa DO - 01/26/2025 2:43 PM CDT Pulmonary Consultation Note History CC: hypoxia/pna HPI: Maria Del Carmen Goldman is a 69-year-old female with a PMHx of cerebral palsy / intellectual disability/ nonverbal status, who presents to [facility] on 01/20/25 with worsening breathing after [...] with any questions Radha Rodrigez DNP (Reavis), KILN TRANSFER OPERATOR-BC [facility] Pulmonary Medicine PHYSICIAN COMMENTS [...] 5 for zosyn -- stop steroids -- POLICY ADVISER recs appreciated / MBS done, diet recs noted -- chest pt / mucolytics / nebs etc as needed. Likely dealing with atelectasis as well. Not much additional to add from pulmonary standpoint at this time. Clinically appears to be improved. Will sign off, call with questions or concerns. Unfortunately at risk for recurrent aspiration. Dr. Enrike Sosa [facility] Pulmonary Medicine * Nichole Ken, HEEL LIFT GOUGER - 01/26/2025 12:08 PM CDT 01/26/25 1103 [...] min/mod assist. Pt ambulated further distance with PAPER MACHINE BACKTENDER on the R and holding onto IV [...] gait belt Assistive Device Other (Comment) (R PAPER MACHINE BACKTENDER, L IV pole) Pattern Shuffle steps;R Foot [...] PT Recommendation Home with assistance;Home PT;PT at shelter Facility (PT @ assisted vs SNF pend progress) PT Equipment Recommended [...] CDT Pt is progressing towards admission to [facility] but currently with an elevated sodium, beginning an oral diet today following MBS and to complete Zosyn course before discharge. It is anticipated the patient will remain at [facility] until the on Wednesday. However if pt's condition does improve such that dc is to be considered before Wednesday CM staff will need to call the Office of [facility] to get consent for dc/IMM at phone after hours [phone] for the discharge. SW spokewith Nita Hartley at the Office of [facility] this date in the absence of Mateo Warren at phone [phone] regarding the placement at [facility] who confirmed agreement for placement at [facility] based on the previously agreed upon referrals [...] Interdisciplinary Group Conference Team Members Present Physician;Case/Care management;Nursing;Pharmacy;Hand Printed Circuit Board Assembler Physician present for group conference Dr Barroso [...] admit planned to go to rehab at [facility] for therapy upon dc Complex Behavior follow up Pt is with a sitter bedside because she pulls her lines including accessfor IV zosyn-will need to insure no sitter for 24-48 hours Patient expects to be discharged to Patient expects to be discharged to: residential Facility( SNF) * Sarah Collier, POLICY ADVISER - 01/26/2025 10:00 AM CDT SPEECH THERAPY [...] of this diet. Communication completed with pulmonology ERGONOMIST, Radha, and RN, Vipin. Thank you for [...] and Symptoms Outcome: Completed * Nichole Ken, HEEL LIFT GOUGER - 01/25/2025 3:37 PM CDT 01/25/25 1355 [...] PT Recommendation Home with assistance;Home PT;PT at shelter Facility (PT @ assisted vs SNF pend progress) PT Equipment Recommended [...] 01/25/2025 3:57 PM CDT * Tg Schulte, SOAPING MACHINE BACK TENDER - 01/25/2025 2:20 PM CDT After hours consent line for Office of State Guardianship [phone]. SW has again left a messagefor Mateo Warren with Office of State Guardianship to update him regarding decline in pt's condition with no return call. Pt was accepted at [facility] per [facility]per[facility] but they will need to reassess pt's care needs closer to time of dc. 01/25/25 1341 Interdisciplinary Group Conference Team Members Present Physician;Case/Care management;Nursing;Pharmacy;Hand Printed Circuit Board Assembler Physician present for group conference Dr Barroso [...] to Patient expects to be discharged to: residential Facility( SNF) * Lexus Barroso MD - [...] encounter of 01/20/25 ECG 12 lead Narrative [place] Test Date: 2025-01-20 Pat Name: MARIA DEL CARMEN GOLDMAN Department: 41 Room: [id number] Gender: Female Client Development Manager: : 1955 Requested By: MORIAH LORENZO Order Number: [id number] Reading MD: Chevy Dodson Measurements Intervals [place] Rate: 85 P: 17 OH: 149 QRS: -26 QRSD: 91 T: 30 QT: 293 QTc: 349 Interpretive Statements SINUS RHYTHM VOLTAGE CRITERIA FOR LVH [MEETS CRITERIA IN ONE OF: R(aVL), S(V1), R(V5), R(V5/V6)+S(V1)] POSSIBLE SEPTAL MYOCARDIAL INFARCTION [30 ms Q WAVE IN V1/V2], OF INDETERMINATE AGE Compared to ECG 04/27/2024 12:57:46 Left-axis deviation no longer present Myocardial infarct finding still present T TESTER Assessment/Plan: Aspiration pneumonia No signs of sepsis [...] CTA chest neg Cerebral palsy/schizophrenia/nonverbal Resides at assisted prior to admission. At baseline, nonverbal, but walks around independently Currently very weak and would need rehab prior to return to assisted. Supportive care Continue home medications DVT prophylaxis [...] intellectual disability/ nonverbal status, who presents to [facility] on 01/20/25 with worsening breathing after [...] questions or concerns. Radha Rodrigez DNP (Reavis), [facility] Medical Group Pulmonary Medicine PHYSICIAN COMMENTS [...] nebs eetc. Will follow Dr. Enrike Sosa [facility] Group Pulmonary Medicine * Nata Carpio [...] MD Otoniel PT Received On 01/24/25 Subjective [id number]; Attempted to see pt and pt was [...] intellectual disability/ nonverbal status, who presents to [facility] on 01/20/25 with worsening breathing after [...] questions or concerns. Radha Rodrigez DNP (Reavis), [facility] Medical Group Pulmonary Medicine PHYSICIAN COMMENTS [...] with questions or concerns. Dr. Enrike Sosa [facility] Pulmonary Medicine * Catalino Degroot RN - [...] [facility] the CVR for a 5 sinhala catheter is 40 % with a vein [...] and circumstances. Mr Warren is from the [place] [employer] but working in the field today and will retrieve his messages remotely. Contact number is [phone] with option 1 then option 2 to request to speak with Mr Warren. As well ELHAM facilitated contact with the [facility] staff member in the [place] office providing consents today for the Office of State [facility] for nursing to obtain consent for [...] encounter of 01/20/25 ECG 12 lead Narrative [address] Test Date: 2025-01-20 Pat Name: MARIA DEL CARMEN GOLDMAN Department: 41 Room: [place] [address] Gender: Female Client Development Manager: : 1955 Requested By: MORIAH LORENZO Order Number: [id number] Reading MD: Chevy Dodson Measurements Intervals [place] Rate: 85 P: 17 OH: 149 QRS: -26 QRSD: 91 T: 30 QT: 293 QTc: 349 Interpretive Statements SINUS RHYTHM VOLTAGE CRITERIA FOR LVH [MEETS CRITERIA IN ONE OF: R(aVL), S(V1), R(V5), R(V5/V6)+S(V1)] POSSIBLE SEPTAL MYOCARDIAL INFARCTION [30 ms Q WAVE IN V1/V2], OF INDETERMINATE AGE Compared to ECG 04/27/2024 12:57:46 Left-axis deviation no longer present Myocardial infarct finding still present T TESTER Assessment/Plan: Aspiration pneumonia No signs of sepsis [...] CTA chest neg Cerebral palsy/schizophrenia/nonverbal Resides at assisted prior to admission. At baseline, nonverbal, but walks around independently Currently very weak and would need rehab prior to return to assisted. Supportive care Continue home medications DVT prophylaxis [...] started. PMH significant for cerebral palsy from assisted. She received a loading dose of vancomycin [...] to Patient expects to be discharged to: residential Facility( SNF) 15:55 CM received call from Esperanza at [facility] stating they can accept this patient and have a bedfor her tomorrow. 16:00 CM spoke with Sarah at [facility] who states they do not have any female beds available and none tomorrow.CM phoned [place] at [facility] to ask if they will have a bed for this patient tomorrow, she will move patient's referral to [facility] and will let this CM know. * [...] Pharmacy to Dose Day #1 Ordering Provider: Otoniel Indication: pneumonia Ht/Wt: 5' [...] started. PMH significant for cerebral palsy from assisted. She received a loading dose of vancomycin [...] 1445 PH 7.39 PCO2 68.0* PO2 122.0* [id number] 99* BICARBWB 41.2* BASEEXCESS 13.1* No results found. However, due to the size of the patient record, not all encounters were searched.Please check Results Review for a complete set of results. Imaging CTA CHEST PE PROTOCOL Result Date: 01/20/2025 [facility] [address] [place], [place] [address] EXAMINATION: CTA CHEST WITH CONTRAST, PULMONARY EMBOLISM [...] CT HEAD WO CON Result Date: 01/20/2025 [facility] [address] [place], [place] [address] CT HEADWITHOUT CONTRAST Exam date: 01/20/2025 12:28 [...] PM ECG 12 lead Result Date: 01/20/[address] Test Date: 2025-01-20 Pat Name: MARIA DEL CARMEN GOLDMAN Department: 41 Room: [place] [address] Gender: Female Client Development Manager: : 1955 Requested By: MORIAH LORENZO Order Number: [id number] Reading MD: Chevy Dodson Measurements Intervals [place] Rate: 85 P: 17 OH: 149 QRS: -26 QRSD: 91 T: 30 QT: 293 QTc: 349 Interpretive Statements SINUS RHYTHM VOLTAGE CRITERIA FOR LVH [MEETS CRITERIA IN ONE OF: R(aVL), S(V1), R(V5), R(V5/V6)+S(V1)] POSSIBLE SEPTAL MYOCARDIAL INFARCTION [30 ms Q WAVE IN V1/V2], OF INDETERMINATE AGE Compared to ECG 04/27/2024 12:57:46 Left-axis deviation no longer present Myocardial infarct finding still present T TESTER XR CHEST PA+LAT Result Date: 01/20/2025 [facility] [address] [place], [place] [address] Examination: Chest x-ray 2 view Exam Date/Time: [...] encounter of 01/20/25 ECG 12 lead Narrative [address] Test Date: 2025-01-20 Pat Name: MARIA DEL CARMEN GOLDMAN Department: 41 Room: [place] [address] Gender: Female Client Development Manager: : 1955 Requested By: MORIAH LORENZO Order Number: [id number] Reading MD: Chevy Dodson Measurements Intervals [place] Rate: 85 P: 17 OH: 149 QRS: -26 QRSD: 91 T: 30 QT: 293 QTc: 349 Interpretive Statements SINUS RHYTHM VOLTAGE CRITERIA FOR LVH [MEETS CRITERIA IN ONE OF: R(aVL), S(V1), R(V5), R(V5/V6)+S(V1)] POSSIBLE SEPTAL MYOCARDIAL INFARCTION [30 ms Q WAVE IN V1/V2], OF INDETERMINATE AGE Compared to ECG 04/27/2024 12:57:46 Left-axis deviation no longer present Myocardial infarct finding still present T TESTER Assessment & Plan Community-acquired pneumonia No signs of sepsis Dependent secretions with mucous plugging in the left main bronchus and left lower lobe bronchi with patchy bibasilar opacities Check PCT Respiratory PCR negative IV antibiotics with azithromycin and Rocephin O2 supplementation as needed. Was noted to have low oxygen saturations in the assisted. She was 94% on room air when [...] CDT 09:06 SHERWIN spoke with Jud at [facility] who states they do not have any beds and do not have any Medicaid beds either at their [place] [facility]. SHERWIN checked the [employer] website for PASRR results, patient result is convalescence categorical. 10:14 SHERWIN spoke with Tisha at [facility], she is aware that patient has not met the 3 midnight rule tomeet rehab with Medicare and would be coming to SNF using her Medicaid. Tisha states they can accept this patient at [facility] [place], [place] and [facility]. SHERWIN informed Tisha that this CM will ask MD if patient medically ready today and will reach out to her guardian for placement choice. SHERWIN sent doc halo to Dr Davila asking if this patient is medically ready for dc this date. 12:56 This CM phoned Parth Warren, patient's legal guardian to ask about SNF placement and that [facility] and [place] all have neds, left return number to call with choice. 13:38 CM received call from Parth Kelvin stating that he does not want patient to go to any [facility] locations and requests referrals be sent to : O[facility] in [place]. * Tania Mcintosh RN - 01/23/2025 5:40 [...] nonverbal Verified Two Patient Identifiers Yes (via [employer]) Patient consents to therapy Yes Acute Inpatient PT Time Calculation PT Start Time 1349 PT Stop Time 1408 PT Time Calculation (min) 19 min Precautions Weight Bearing Status Full weight bearing General Precautions Fall Risk;Bed Alarm;Chair Alarm PPE Used Face mask;Gloves Instructed on Precautions Yes;Needs reinforcement and education Skin Integrity intact Home Living Type of Home Halfway Home Layout One level Home Accessibility 0 Steps to enter Home Living Comments patient is nonverbal at baseline Prior Function Level of [place] Independent with functional transfers;Independent with ambulation;Needs assistance with ADLs;Needs assistance with homemaking Device used at baseline (unclear, possible FWW) Baseline Ambulation Distance/Assistance household Fall History (unknown as the patient is nonverbal at baseline) Lives With (assisted residents) Receives Help From Facility staff ADL [...] and HH services upon return to her assisted. Basic Mobility Turning from your back to [...] Recommendation Home with assistance;Home PT (PT @ assisted) PT Equipment Recommended To Be Determined Plan [...] ELHAM called Nichole with [facility] [phone] to clarify what is required forpt to return to assisted. Nichole stated that the pt would need [...] to Patient expects to be discharged to: Halfway This CM phoned Nichole, nurse at patient's assisted. Nichole states this patient was independent with mobility and would even move furniture at her assisted. Nichole states the patient has no familyand has a state guardian. The assisted should be able to transport her at ma. CM sent doc eliana Davila as well as nurses Marlyn Harmon and Katlin Farr informing of patient's prior mobility. 14:15 This CM phoned Nichole at patient's assisted and informed her that this patient is [...] to be able to return to her assisted and would like her to get some therapy to be able to return, he states if needed, to send a referral to [facility] for rehab. CM phoned Vivian Rodrigues , valve steamer for assistance as this patient has not met the 3 midnight Medicare rule for SNF for rehab,she is asking ELHAM Fine to assist. CM spoke with Lexus who states she will fill out PASRR and would like this CM to send referrals to SNFs, CM informed her that her guardian only gave 1-Memorialand that he is wanting patient to return to her assisted. 15:53 This CM phoned patient's guardian Parth and informed that the assisted states this patientcan not return in her current condition and explained the 3 midnight rule with Medicare for the patient to use her benefits for rehab.SHERWIN explained that this patient can use her Medicaid benefit,ut itwould be for placement, not rehab. Parth is wanting the patient to return to her assisted and would like her to meet the [...] tomorrow, but CM can send referral to [facility] in the meantime. SHERWIN sent doc [...] 1445 PH 7.39 PCO2 68.0* PO2 122.0* [id number] 99* BICARBWB 41.2* BASEEXCESS 13.1* No results found. However, due to the size of the patient record, not all encounters were searched.Please check Results Review for a complete set of results. Imaging CTA CHEST PE PROTOCOL Result Date: 01/20/2025 [facility] [address] [place], [place] [address] EXAMINATION: CTA CHEST WITH CONTRAST, PULMONARY EMBOLISM [...] HEAD WO CON Result Date: 01/20/[address] [address] [address] HEADWITHOUT CONTRAST Exam date: 01/20/2025 12:28 [...] PM ECG 12 lead Result Date: 01/20/[address] Test Date: 2025-01-20 Pat Name: MARIA DEL CARMEN GOLDMAN Department: 41 Room: [place] [address] Gender: Female Client Development Manager: : 1955 Requested By: MORIAH LORENZO Order Number: [id number] Reading MD: Chevy Dodson Measurements Intervals [place] Rate: 85 P: 17 OH: 149 QRS: -26 QRSD: 91 T: 30 QT: 293 QTc: 349 Interpretive Statements SINUS RHYTHM VOLTAGE CRITERIA FOR LVH [MEETS CRITERIA IN ONE OF: R(aVL), S(V1), R(V5), R(V5/V6)+S(V1)] POSSIBLE SEPTAL MYOCARDIAL INFARCTION [30 ms Q WAVE IN V1/V2], OF INDETERMINATE AGE Compared to ECG 04/27/2024 12:57:46 Left-axis deviation no longer present Myocardial infarct finding still present T TESTER XR CHEST PA+LAT Result Date: 01/20/[address] [address] Examination: Chest x-ray 2 view Exam Date/Time: [...] encounter of 01/20/25 ECG 12 lead Narrative [address] Test Date: 2025-01-20 Pat Name: MARIA DEL CARMEN GOLDMAN Department: 41 Room: [place] [address] Gender: Female Client Development Manager: : 1955 Requested By: MORIAH LORENZO Order Number: [id number] Reading MD: Chevy Dodson Measurements Intervals [place] Rate: 85 P: 17 OH: 149 QRS: -26 QRSD: 91 T: 30 QT: 293 QTc: 349 Interpretive Statements SINUS RHYTHM VOLTAGE CRITERIA FOR LVH [MEETS CRITERIA IN ONE OF: R(aVL), S(V1), R(V5), R(V5/V6)+S(V1)] POSSIBLE SEPTAL MYOCARDIAL INFARCTION [30 ms Q WAVE IN V1/V2], OF INDETERMINATE AGE Compared to ECG 04/27/2024 12:57:46 Left-axis deviation no longer present Myocardial infarct finding still present T TESTER Assessment & Plan Community-acquired pneumonia No signs of sepsis Dependent secretions with mucous plugging in the left main bronchus and left lower lobe bronchi with patchy bibasilar opacities Check PCT Respiratory PCR negative IV antibiotics with azithromycin and Rocephin O2 supplementation as needed. Was noted to have low oxygen saturations in the assisted. She was 94% on room air when [...] Reduced Risk of Dizziness/Vertigo/Balance 01/22/2025 024 by Calree Urrutia, RN Outcome: Progressing 01/22/2025 024 by Carlee Urrutia, RN Outcome: Progressing Goal: Reduced Risk of Polypharmacy 01/22/2025 024 by Carlee Urrutia, RN Outcome: Progressing 01/22/2025 0240 by Carlee Urrutia RN Outcome: Progressing * Srinivasan Aquino Nurse Oven Stripper II - 01/21/2025 5:57 PM CDT Problem: [...] 1445 PH 7.39 PCO2 68.0* PO2 122.0* [id number] 99* BICARBWB 41.2* BASEEXCESS 13.1* No results found. However, due to the size of the patient record, not all encounters were searched.Please check Results Review for a complete set of results. Imaging CTA CHEST PE PROTOCOL Result Date: 01/20/2025 [place] [address] EXAMINATION: CTA CHEST WITH CONTRAST, PULMONARY EMBOLISM [...] HEAD WO CON Result Date: 01/20/[address] [address] [address] HEADWITHOUT CONTRAST Exam date: 01/20/2025 12:28 [...] PM ECG 12 lead Result Date: 01/20/[address] Test Date: 2025-01-20 Pat Name: MARIA DEL CARMEN GOLDMAN Department: 41 Room: [place] [address] Gender: Female Client Development Manager: : [id number] By: MORIAH LORENZO Order Number: [id number] Reading MD: Chevy Dodson Measurements Intervals [place] Rate: 85 P: 17 OH: 149 QRS: -26 QRSD: 91 T: 30 QT: 293 QTc: 349 Interpretive Statements SINUS RHYTHM VOLTAGE CRITERIA FOR LVH [MEETS CRITERIA IN ONE OF: R(aVL), S(V1), R(V5), R(V5/V6)+S(V1)]POSSIBLE SEPTAL MYOCARDIAL INFARCTION [30 ms Q WAVE IN V1/V2], OF INDETERMINATE AGE Compared to ECG04/27/2024 12:57:46 Left-axis deviation no longer present Myocardial infarct finding still present E lectronically signed by Chevy Dodson at 01-20-2025 12:29:10 FRUIT TESTER XR CHEST PA+LAT Result Date: 01/20/[address] [address] Examination: Chest x-ray 2 view Exam Date/Time: [...] encounter of 01/20/25 ECG 12 lead Narrative [address] Test Date: 2025-01-20 Pat Name: MARIA DEL CARMEN GOLDMAN Department: 41 Room: [place] [address] Gender: Female Client Development Manager: : 1955 Requested By: MORIAH LORENZO Order Number: [id number] Reading MD: Chevy Dodson Measurements Intervals [place] Rate: 85 P: 17 OH: 149 QRS: -26 QRSD: 91 T: 30 QT: 293 QTc: 349 Interpretive Statements SINUS RHYTHM VOLTAGE CRITERIA FOR LVH [MEETS CRITERIA IN ONE OF: R(aVL), S(V1), R(V5), R(V5/V6)+S(V1)] POSSIBLE SEPTAL MYOCARDIAL INFARCTION [30 ms Q WAVE IN V1/V2], OF INDETERMINATE AGE Compared to ECG 04/27/2024 12:57:46 Left-axis deviation no longer present Myocardial infarct finding still present T TESTER Assessment & Plan Community-acquired pneumonia No signs of sepsis Dependent secretions with mucous plugging in the left main bronchus and left lower lobe bronchi with patchy bibasilar opacities Check PCT Respiratory PCR negative IV antibiotics with azithromycin and Rocephin O2 supplementation as needed. Was noted to have low oxygen saturations in the assisted. She was 94% on room air when [...] telephone interview with Nichole castillo with [facility] [phone], Pt name, verified. ? Home: resides for past month at [facility] assisted at [address] [facility] Ambulation: Reports independent prior to admission. DME [...] phone with nurse Nichole from [facility]- address corrected on chart Nichole's ph# [phone]) Patient Information Primary Caregiver Self (at baseline, pt able to bathe/dress self/feed self and ambulate-is nonverbal) Current living Situation Other (Comment) ([facility]-has been there for past month per Nicholenurse) Type of Residence skilled nursing Support System Other (Comment) (staff at facility) Are you employed? Disabled Baseline ADL's Functional Status Independent (at baseline-pt bathes, dresses, feeds self and able to ambulate-but is nonverbal) Behavior Oriented;Cooperative (at baseline per nurse Varela) Communication Understands Tongan;Understands speaking (at baseline, per nurse Varela) DC screening tool This is a screening tool it does not take the place of a physical or occupational therapy evaluation. The screening is to screen the patient for what services and destination would be beneficial for patient for next level of care Chart Review;Other (Comment) (spoke by phone with Nichole nurse [phone], with [facility], pt residesat [address] [facility]) Based on the screening the DC plan for consideration is: Patient expects to be discharged to: Halfway Adequate Resources Available Adequate Resources Yes * [...] Evidence of pressure injury/ulcer healing Outcome: Completed T TESTER documented in this encounter H&P Notes * Ele Moreno APRN - 01/20/2025 3:14 PM CST ATTENDING: ELE MORENO APRN PRIMARY CARE PROVIDER: FROILAN DILLON CC: Shortness of breath HPI: Maria Del Carmen Goldman is a 69-year-old female with past medical history of vitamin D deficiency, hypokalemia, anxiety, schizophrenia, GERD, hypertension, bladder disorder, nonverbal, cerebral palsy presented from a assisted presented with acute shortness of breath. Per EMS and the assisted staff they reported the patient had acute [...] 2 (two) times daily. 11/28/24 Yes FROILAN Dillno omeprazole EC (PRILOSEC OTC) 20 MG tablet [...] BM for 3 days 11/28/24 Pratibha Corado, [facility]- guaiFENesin (ROBITUSSIN) 100 MG/5ML solution Take [...] needed for Constipation. 09/04/24 Darvin Stearns MD rffsinqv-immnrmqhnw-tgbldmder-pramoxine 1 % Ointment ointment Apply topically 2 [...] 39.6 kg (87 lb 4.8 oz) Intake/Output :[id number]@ Constitutional: Well developed, Well nourished, No acute [...] 1445 PH 7.39 PCO2 68.0* PO2 122.0* [id number] 99* BICARBWB 41.2* BASEEXCESS 13.1* No results found for this or any previous visit. Diagnostic Review CTA CHEST PE PROTOCOL Result Date: 01/20/2025 [facility] [address] [place], [place] [address] EXAMINATION: CTA CHEST WITH CONTRAST, PULMONARY EMBOLISM [...] HEAD WO CON Result Date: 01/20/[address] [address] [address] HEADWITHOUT CONTRAST Exam date: 01/20/2025 12:28 [...] PM ECG 12 lead Result Date: 01/20/[address] Test Date: 2025-01-20 Pat Name: MARIA DEL CARMEN GOLDMAN Department: 41 Room: [place] [address] Gender: Female Client Development Manager: : [id number] By: MORIAH LORENZO Order Number: [id number] Reading MD: Chevy Dodson Measurements Intervals [place] Rate: 85 P: 17 OH: 149 QRS: -26 QRSD: 91 T: 30 QT: 293 QTc: 349 Interpretive Statements SINUS RHYTHM VOLTAGE CRITERIA FOR LVH [MEETS CRITERIA IN ONE OF: R(aVL), S(V1), R(V5), R(V5/V6)+S(V1)]POSSIBLE SEPTAL MYOCARDIAL INFARCTION [30 ms Q WAVE IN V1/V2], OF INDETERMINATE AGE Compared to ECG04/27/2024 12:57:46 Left-axis deviation no longer present Myocardial infarct finding still present E lectronically signed by Chevy Dodson at 01-20-2025 12:29:10 FRUIT TESTER XR CHEST PA+LAT Result Date: 01/20/[address] [address] Examination: Chest x-ray 2 view Exam Date/Time: [...] 01/20/[address] [facility] [address] Test Date: 2025-01-20 Pat Name: MARIA DEL CARMEN GOLDMAN Department: 41 Room: [place] [address] Gender: Female Client Development Manager: : 1955 Requested By: MORIAH LORENZO Order Number: [id number] Reading MD: Chevy Dodson Measurements Intervals [place] Rate: 85 P: 17 OH: 149 QRS: -26 QRSD: 91 T: 30 QT: 293 QTc: 349 Interpretive Statements SINUS RHYTHM VOLTAGE CRITERIA FOR LVH [MEETS CRITERIA IN ONE OF: R(aVL), S(V1), R(V5), R(V5/V6)+S(V1)] POSSIBLE SEPTAL MYOCARDIAL INFARCTION [30 ms Q WAVE IN V1/V2], OF INDETERMINATE AGE Compared to ECG 04/27/2024 12:57:46 Left-axis deviation no longer present Myocardial infarct finding still present T TESTER ASSESSMENT AND PLAN: Community-acquired pneumonia No signs of sepsis Dependent secretions with mucous plugging in the left main bronchus and left lower lobe bronchi with patchy bibasilar opacities Check PCT Respiratory PCR negative IV antibiotics with azithromycin and Rocephin O2 supplementation as needed. Was noted to have low oxygen saturations in the assisted. She was 94% on room air when she arrived to the emergency department. Monitor O2 saturations closely. Elevated DDMIMER Negative CTA of chest Check venous dopplers Cerebral palsy/schizophrenia/nonverbal Supportive care Continue home medications - DVT prophylaxis: Heparin Sub Q - Code status:FULL CODE - Disposition: inpatient This note was dictated with the use of [employer] dictation software and was proofread to the best of my ability. If you have questions or find errors, please contact me via [email or web address] clinical communications. Thank you. ELE MORENO APRN 01/20/2025 3:14 PM Cosigned by Shahida Davila MD at 01/21/2025 5:29 AM CDT T TESTER Associated attestation - Shahida Davila MD - 01/21/2025 5:29 AM CDT I, Shahida Davila MD, participated in the care of this patient today and discussed the plan of care with NAT Orr, who shared in this visit. I have reviewed the NAT's documentation and agree with the findings except as I have documented. I personally spent 45 minutes, caring for this patient. hSahida Davila MD documented in this encounter Consult Notes * Alexandruvinod SosaDO - 01/23/2025 2:43 PM CDTAssociated Order(s): IP CONSULT TO PULMONOLOGY Pulmonary Consultation Note History CC: hypoxia/pna HPI: Maria Del Carmen Goldman is a 69-year-old female with a PMHx of cerebral palsy / intellectual disability/ nonverbal status, who presents to [facility] on 01/20/25 with worsening breathing after [...] the day of the encounter. This includes divr-bn-bgyd and heu-rpzb-ei-face time I provided on the day of the encounter & excludes time spent performing separately reportable services. Dr. Enrike Sosa [facility] Medical Group Pulmonary Medicine documented in this encounter Nursing Notes * Mariela Loya RN - 01/31/2025 11:07 AM CDT Report given to receiving RN Madelyn at [facility]. All questions answered at this time, call back number available to nurse for any further questions or concerns. documented in this encounter ED Notes * Danielle Chau RN - 01/20/2025 3:40 PM CST Pt depend full of urine. Pt depends changed and purwick placed. No foul smell, no odor. Yellow in color. T TESTER * Danielle Chau RN - 01/20/2025 2:20 PM CST Pt placed on 2L nasal cannula for comfort per Moriah ORTIZ T TESTER * Danielle Chau RN - 01/20/2025 12:05 PM CST This rn attempted to get pt up to ambulate them. Pt was too weak to sit up on own and unable to stand up without assistance. Pt sat back in stretcher. PT sats maintained 92% when attempting to sit her up T TESTER * Danielle Chau RN - 01/20/2025 11:55 AM CST Spoke with nichole caregiver phone number [phone] Nichole states pt is normally a busy body and is able to follow commands and assign the pt tasks which they will perform. Pt is non verbal at baseline. Pt weakness x 2 days. T TESTER * Danielle Chau RN - 01/20/2025 11:10 AM CST Pt via ems from [facility]. EMS reported pt SOB upon EMS arrival and slightly working to breath. EMS reported 89% on RA placed pt on 2L. Pt is 94% on RA during triage. Pt non verbal at baseline. EMS reported pt is normally ambulatory. T TESTER T TESTER * ANGEL Rees - 01/20/2025 11:10 AM CST ED NOTE Chief Complaint Chief Complaint Patient presents with Breathing Problem History of Present Illness 69-year-old female with a history of vitamin D deficiency, hypokalemia, anxiety, schizophrenia, GERD, chronic rhinitis, hypertension, bladder disorder, micturition, osteoporosis presents to the emergency room from the cerebral [facility] via EMS for signs of trouble [...] needed for Constipation. 09/04/24 Darvin Stearns MD nastbptf-bhqezpujyi-jhyhffxbk-pramoxine 1 % Ointment ointment Apply topically 2 [...] encounter of 01/20/25 ECG 12 lead Narrative [address] Test Date: 2025-01-20 Pat Name: MARIA DEL CARMEN GOLDMAN Department: 41 Room: [place] [address] Gender: Female Client Development Manager: : [id number] Requested By: MORIAH LORENZO Order Number: [id number] Reading MD: Chevy Dodson Measurements Intervals [place] Rate: 85 P: 17 OH: 149 QRS: -26 QRSD: 91 T: 30 QT: 293 QTc: 349 Interpretive Statements SINUS RHYTHM VOLTAGE CRITERIA FOR LVH [MEETS CRITERIA IN ONE OF: R(aVL), S(V1), R(V5), R(V5/V6)+S(V1)] POSSIBLE SEPTAL MYOCARDIAL INFARCTION [30 ms Q WAVE IN V1/V2], OF INDETERMINATE AGE Compared to ECG 04/27/2024 12:57:46 Left-axis deviation no longer present Myocardial infarct finding still present T TESTER LABORATORY STUDIES: Results for orders placed or [...] CHEST PE PROTOCOL Final Result by User, [id number] (01/20 1433) [address] [address] EXAMINATION: CTA CHEST WITH CONTRAST, PULMONARY EMBOLISM [...] HEAD WO CON Final Result by User, [email or web address] (01/20 1230) [address] [address] [address] HEAD WITHOUT CONTRAST Exam date: 01/20/2025 [...] XR CHEST PA+LAT Final Result by User, [id number] (01/20 1227) [address] [address] Examination: Chest x-ray 2 view Exam Date/Time: [...] EKG 1135 sinus rhythm rate 85 bpm [place] 149 QTc 335 no STEMI. [AD] 1247 [...] Abhinav Hicks MD at 01/20/2025 9:37 PM FRUIT TESTER T TESTER T TESTER * Danielle Chau RN - 01/20/2025 11:02 AM CST Bed: 06 Expected date: 01/20/25 Expected time: Means of arrival: Comments: [id number] T TESTER documented in this encounter Plan of Treatment Upcoming Encounters Date Type Department Care Team (Late st Contact Info) Description 05/29/2025 10:00 AM CDT Office Visit [facility] [address] [place] [phone] [facility] [address] [facility], [address] [place] [address] documented as of this encounter [...] GAS, ARTERIAL LAB STAT 01/20/2025 2:45 PM FRUIT TESTER CTA CHEST PE PROTOCOL STAT 01/20/2025 2:19 PM FRUIT TESTER LACTIC ACID W REFLEX (SEPSIS) STAT 01/20/2025 1:39 PM FRUIT TESTER RESPIRATORY PCR PANEL 2 STAT 01/20/2025 1:39 PM FRUIT TESTER CULTURE, BACTERIA, BLOOD STAT 01/20/2025 1:[address] HEAD WO CON STAT 01/20/2025 12:25 PM FRUIT TESTER XR CHEST PA+LAT STAT 01/20/2025 12:17 PM FRUIT TESTER ECG 12-LEAD Routine 01/20/2025 11:35 AM FRUIT TESTER PRO-BRAIN NATRIURETIC PEPTIDE STAT 01/20/2025 11:06 AM FRUIT TESTER COMPREHENSIVE METABOLIC PANEL STAT 01/20/2025 11:06 AM FRUIT TESTER D-DIMER, QUANTITATIVE STAT 01/20/2025 11:06 AM FRUIT TESTER CBC W/DIFF AUTOMATED STAT 01/20/2025 11:06 AM FRUIT TESTER TROPONIN, QUANT STAT 01/20/2025 11:06 AM FRUIT TESTER MAGNESIUM STAT 01/20/2025 11:06 AM FRUIT TESTER documented in this encounter Results * (ABNORMAL) COMPREHENSIVE METABOLIC PANEL (01/31/2025 6:19 AM CDT) [facility] GLUCOSE 100(H) 70 - 99 MG/DL 01/31/2025 7:25 AM CDT [facility] BUN 7 7 - 18 MG/DL 01/31/2025 7:25 AM CDT [facility] CREATININE S/P/B 0.42(L) 0.55 - 1.02 MG/DL 01/31/2025 7:25 AM CDT [facility] SODIUM S/P/B 139 136 - 145 MMOL/L 01/31/2025 7:25 AM CDT [facility] POTASSIUM S/P/B 3.6 3.5 - 5.1 MMOL/L 01/31/2025 7:25 AM CDT [facility] CHLORIDE S/P/B 102 97 - 115 MMOL/L 01/31/2025 7:25 AM CDT [facility] CO2 35.0(H) 21 - 32 MMOL/L 01/31/2025 7:25 AM CDT [facility] CALCIUM S/P/B 9.6 8.5 - 10.1 MG/DL 01/31/2025 7:25 AM CDT [facility] BILIRUBIN TOTAL S/P/B 0.5 0.2 - 1.2 MG/DL 01/31/2025 7:25 AM CDT [facility] Comment: THIS ASSAY IS NOT RECOMMENDED FOR PATIENTS UNDERGOING TREATMENT WITH ELTROMBOPAG DUE TO THE POTENTIAL FOR FALSELY ELEVATED RESULTS. TOTAL PROTEIN S/P/B 8.0 6.4 - 8.2 G/DL 01/31/2025 7:25 AM CDT [facility] ALBUMIN S/P/B 2.3(L) 3.4 - 5.0 G/DL 01/31/2025 7:25 AM CDT [facility] AST 71(H) 15 - 37 U/L 01/31/2025 7:25 AM CDT [facility] ALT 164(H) 14 - 55 U/L 01/31/2025 7:25 AM CDT [facility] ALKALINE PHOSPHATASE S/P/B 140(H) 50 - 136 U/L 01/31/2025 7:25 AM CDT [facility] ANION GAP 2.0 2 - 10 MMOL/L 01/31/2025 7:25 AM CDT [facility] BUN CREATININE RATIO 16.7 6 - 26 01/31/2025 7:25 AM CDT [facility] A/G RATIO 0.4(L) 1.0 - 2.0 RATIO 01/31/2025 7:25 AM CDT [facility] GFR ESTIMATE >90 >90 ML/MIN/1.7 3 M2 01/31/2025 7:25 AM CDT [facility] Comment: NOTE: eGFR is not calculated for patients <18 years of age or gender unknown. This is an estimated GFR calculation using the new CKD EPI creatinine equation without race and so does not require a correction factor for race. This estimated GFR should not be used for calculating drug doses. 01/31/2025 6:19 AM CDT Christ Douglass MD LABORATORY Final Result [facility] [address] [place] [address], [place] [phone] * (ABNORMAL) CBC W/DIFF AUTOMATED (01/31/2025 6:19 AM CDT) WBC 13.14(H) 4.5 - 11.0 x10'3/uL 01/31/2025 7:41 AM CDT [facility] RBC 4.20 4.20 - 5.40 x10'6/uL 01/31/2025 7:41 AM CDT [facility] HGB 12.1 12.0 - 16.0 G/DL 01/31/2025 7:41 AM CDT [facility] HCT 38.0 38.0 - 48.0 % 01/31/2025 7:41 AM CDT [facility] MCV 90.5 81.0 - 99.0 FL 01/31/2025 7:41 AM CDT [facility] MCH 28.8 27.0 - 31.0 PG 01/31/2025 7:41 AM CDT [facility] MCHC 31.8(L) 32.0 - 36.0 G/DL 01/31/2025 7:41 AM CDT [facility] RDW 14.3 11.5 - 14.5 % 01/31/2025 7:41 AM CDT [facility] PLT 155 130 - 400 x10'3/uL 01/31/2025 7:41 AM CDT [facility] MPV 11.8 9.3 - 12.2 FL 01/31/2025 7:41 AM CDT [facility] DIFFERENTIAL TYPE AUTOMATED DIFFERENTIAL 01/31/2025 7:42 AM CDT [facility] NEUTROPHILS % 86.6 % 01/31/2025 7:42 AM CDT [facility] LYMPHOCYTES % 6.8 % 01/31/2025 7:42 AM CDT [facility] MONOCYTES % 5.3 % 01/31/2025 7:42 AM CDT [facility] EOSINOPHILS 0.5 % 01/31/2025 7:42 AM CDT [facility] BASOPHILS 0.1 % 01/31/2025 7:42 AM CDT [facility] IMMATURE GRANS % 0.7 % 02/01/20 7:42 AM CDT [facility] ABS. NEUTROPHILS 11.39(H) 1.80 - 7.70 x10'3/uL 01/31/2025 7:42 AM CDT [facility] ABS. LYMPHOCYTES 0.89(L) 1.00 - 4.80 x10'3/uL 01/31/2025 7:42 AM CDT [facility] ABS. MONOCYTES 0.69 0.24 - 0.86 x10'3/uL 01/31/2025 7:42 AM CDT [facility] ABS. EOSINOPHILS 0.07 0.04 - 0.36 x10'3/uL 01/31/2025 7:42 AM CDT [facility] ABS. BASOPHILS 0.01 0.01 - 0.08 x10'3/uL 01/31/2025 7:42 AM CDT [facility] ABS. IMMATURE GRANULOCYTES 0.09 0.00 - 0.49 x10'3/uL 01/31/2025 7:42 AM CDT [facility] RBC MORPHOLOGY RBC MORPHOLOGY APPEARS NORMAL. SLIDE REVIEWED. 01/31/2025 7:42 AM CDT [facility] PLT EST. ADEQUATE 01/31/2025 7:42 AM CDT [facility] 01/31/2025 6:19 AM CDT Christ Douglass MD LABORATORY Final Result [facility] [address] [place] [address], [place] [phone] * PROCALCITONIN (PCT) (01/31/2025 6:19 AM CDT) Procalcitonin 0.13 0.00 - 0.49 NG/ML 01/31/2025 8:06 AM CDT [facility] 01/31/2025 6:19 AM CDT Christ Douglass MD LABORATORY Final Result [facility] [address] [place] [address], [place] [phone] * (ABNORMAL) C-REACTIVE PROTEIN (01/31/2025 6:19 AM CDT) [facility] C-REACTIVE PROTEIN 10.20(H) <0.29 mg/dL 01/31/2025 7:25 AM CDT [facility] 01/31/2025 6:19 AM CDT Christ Douglass MD LABORATORY Final Result [facility] [address] [place] [address], [place] [phone] * (ABNORMAL) CBC W/DIFF AUTOMATED (01/30/2025 1:43 PM CDT) Pathologist [facility] WBC 14.34(H) 4.5 - 11.0 x10'3/uL 01/30/2025 1:51 PM CDT [facility] RBC 4.07(L) 4.20 - 5.40 x10'6/uL 01/30/2025 1:51 PM CDT [facility] HGB 11.8(L) 12.0 - 16.0 G/DL 01/30/2025 1:51 PM CDT [facility] HCT 36.8(L) 38.0 - 48.0 % 01/30/2025 1:51 PM CDT [facility] MCV 90.4 81.0 - 99.0 FL 01/30/2025 1:51 PM CDT [facility] MCH 29.0 27.0 - 31.0 PG 01/30/2025 1:51 PM CDT [facility] MCHC 32.1 32.0 - 36.0 G/DL 01/30/2025 1:51 PM CDT [facility] RDW 14.1 11.5 - 14.5 % 01/30/2025 1:51 PM CDT [facility] PLT 252 130 - 400 x10'3/uL 01/30/2025 1:51 PM CDT [facility] MPV 11.6 9.3 - 12.2 FL 01/30/2025 1:51 PM CDT [facility] DIFFERENTIAL TYPE AUTOMATED DIFFERENTIAL 01/30/2025 1:51 PM CDT [facility] NEUTROPHILS % 86.2 % 01/30/2025 1:51 PM CDT [facility] LYMPHOCYTES % 6.3 % 01/30/2025 1:51 PM CDT [facility] MONOCYTES % 7.0 % 01/30/2025 1:51 PM CDT [facility] EOSINOPHILS 0.0 % 01/30/2025 1:51 PM CDT [facility] BASOPHILS 0.1 % 01/30/2025 1:51 PM CDT [facility] IMMATURE GRANS % 0.4 % 01/31/20 1:51 PM CDT [facility] ABS. NEUTROPHILS 12.36(H) 1.80 - 7.70 x10'3/uL 01/30/2025 1:51 PM CDT [facility] ABS. LYMPHOCYTES 0.90(L) 1.00 - 4.80 x10'3/uL 01/30/2025 1:51 PM CDT [facility] ABS. MONOCYTES 1.00(H) 0.24 - 0.86 x10'3/uL 01/30/2025 1:51 PM CDT [facility] ABS. EOSINOPHILS 0.00(L) 0.04 - 0.36 x10'3/uL 01/30/2025 1:51 PM CDT [facility] ABS. BASOPHILS 0.02 0.01 - 0.08 x10'3/uL 01/30/2025 1:51 PM CDT [facility] ABS. IMMATURE GRANULOCYTES 0.06 0.00 - 0.49 x10'3/uL 01/30/2025 1:51 PM CDT [facility] 01/30/2025 1:43 PM CDT Christ Douglass MD LABORATORY Final Result [facility] [address] [place] [address], * XR CHEST PORTABLE (01/30/2025 12:28 PM CDT) Anatomical Region Laterality Modality Chest Radiographic Yolis ging 01/30/2025 12:3 9 PM CDT Impressions 01/30/2025 12:40 PM CDT =====IMPRESSION:===== Similar right basilar consolidation compatible with pneumonia. Ordered By: CHRIST DOUGLASS Interpreted By: Yoel Caal MD, 01/30/2025 12:39 PM Narrative 01/30/2025 12:[address] PM [address]T [address] [address] Examination: Chest x-ray 1 view Exam date/time: [...] Note Yoel Caal MD - 01/30/[address] [address] Examination: Chest x-ray 1 view Exam date/time: [...] 9:36 AM Narrative 01/30/2025 9:38 AM CDT [place] [address] EXAMINATION: Limited abdomen ultrasound: RUQ EXAM DATE/TIME: [...] Procedure Note Yoel Caal MD - 01/30/2025 [place] [address] EXAMINATION: Limited abdomen ultrasound: RUQ EXAM DATE/TIME: [...] - 99 MG/DL 01/30/2025 8:11 AM CDT [facility] BUN 9 7 - 18 MG/DL 01/30/2025 8:11 AM CDT [facility] CREATININE S/P/B 0.43(L) 0.55 - 1.02 MG/DL 01/30/2025 8:11 AM CDT [facility] SODIUM S/P/B 144 136 - 145 MMOL/L 01/30/2025 8:11 AM CDT [facility] POTASSIUM S/P/B 3.5 3.5 - 5.1 MMOL/L 01/30/2025 8:11 AM CDT [facility] CHLORIDE S/P/B 107 97 - 115 MMOL/L 01/30/2025 8:11 AM CDT [facility] CO2 33.3(H) 21 - 32 MMOL/L 01/30/2025 8:11 AM CDT [facility] CALCIUM S/P/B 9.2 8.5 - 10.1 MG/DL 01/30/2025 8:11 AM CDT [facility] BILIRUBIN TOTAL S/P/B 0.4 0.2 - 1.2 MG/DL 01/30/2025 8:11 AM CDT [facility] Comment: THIS ASSAY IS NOT RECOMMENDED FOR PATIENTS UNDERGOING TREATMENT WITH ELTROMBOPAG DUE TO THE POTENTIAL FOR FALSELY ELEVATED RESULTS. TOTAL PROTEIN S/P/B 7.5 6.4 - 8.2 G/DL 01/30/2025 8:11 AM CDT [facility] ALBUMIN S/P/B 2.2(L) 3.4 - 5.0 G/DL 01/30/2025 8:11 AM CDT [facility] AST 102(H) 15 - 37 U/L 01/30/2025 8:11 AM CDT [facility] ALT 192(H) 14 - 55 U/L 01/30/2025 8:11 AM CDT [facility] ALKALINE PHOSPHATASE S/P/B 142(H) 50 - 136 U/L 01/30/2025 8:11 AM CDT [facility] ANION GAP 3.7 2 - 10 MMOL/L 01/30/2025 8:11 AM CDT [facility] BUN CREATININE RATIO 21.0 6 - 26 01/30/2025 8:11 AM CDT [facility] A/G RATIO 0.4(L) 1.0 - 2.0 RATIO 01/30/2025 8:11 AM CDT [facility] GFR ESTIMATE >90 >90 ML/MIN/1.7 3 M2 01/30/2025 8:11 AM CDT [facility] Comment: NOTE: eGFR is not calculated for patients <18 years of age or gender unknown. This is an estimated GFR calculation using the new CKD EPI creatinine equation without race and so does not require a correction factor for race. This estimated GFR should not be used for calculating drug doses. 01/30/2025 6:35 AM CDT Christ Douglass MD LABORATORY Final Result [facility] [address] [place] [address], [place] [phone] * (ABNORMAL) CBC W/DIFF AUTOMATED (01/30/2025 6:35 AM CDT) WBC 13.84(H) 4.5 - 11.0 x10'3/uL 01/30/2025 7:37 AM CDT [facility] RBC 4.22 4.20 - 5.40 x10'6/uL 01/30/2025 7:37 AM CDT [facility] HGB 11.9(L) 12.0 - 16.0 G/DL 01/30/2025 7:37 AM CDT [facility] HCT 38.5 38.0 - 48.0 % 01/30/2025 7:37 AM CDT [facility] MCV 91.2 81.0 - 99.0 FL 01/30/2025 7:37 AM CDT [facility] MCH 28.2 27.0 - 31.0 PG 01/30/2025 7:37 AM CDT [facility] MCHC 30.9(L) 32.0 - 36.0 G/DL 01/30/2025 7:37 AM CDT [facility] RDW 14.1 11.5 - 14.5 % 01/30/2025 7:37 AM CDT [facility] PLT 211 130 - 400 x10'3/uL 01/30/2025 7:37 AM CDT [facility] MPV 12.3(H) 9.3 - 12.2 FL 01/30/2025 7:37 AM CDT [facility] DIFFERENTIAL TYPE AUTOMATED DIFFERENTIAL 01/30/2025 7:37 AM CDT [facility] NEUTROPHILS % 85.3 % 01/30/2025 7:37 AM CDT [facility] LYMPHOCYTES % 7.9 % 01/30/2025 7:37 AM CDT [facility] MONOCYTES % 6.1 % 01/30/2025 7:37 AM CDT [facility] EOSINOPHILS 0.0 % 01/30/2025 7:37 AM CDT [facility] BASOPHILS 0.1 % 01/30/2025 7:37 AM CDT [facility] IMMATURE GRANS % 0.6 % 01/31/20 7:37 AM CDT [facility] ABS. NEUTROPHILS 11.82(H) 1.80 - 7.70 x10'3/uL 01/30/2025 7:37 AM CDT [facility] ABS. LYMPHOCYTES 1.09 1.00 - 4.80 x10'3/uL 01/30/2025 7:37 AM CDT [facility] ABS. MONOCYTES 0.84 0.24 - 0.86 x10'3/uL 01/30/2025 7:37 AM CDT [facility] ABS. EOSINOPHILS 0.00(L) 0.04 - 0.36 x10'3/uL 01/30/2025 7:37 AM CDT [facility] ABS. BASOPHILS 0.01 0.01 - 0.08 x10'3/uL 01/30/2025 7:37 AM CDT [facility] ABS. IMMATURE GRANULOCYTES 0.08 0.00 - 0.49 x10'3/uL 01/30/2025 7:37 AM CDT [facility] 01/30/2025 6:35 AM CDT Christ Douglass MD LABORATORY Final Result Performing Organization Address City/[facility]/ZIP Co de Phone Number [facility] [address] [place] [address], [place] [phone] * (ABNORMAL) C-REACTIVE PROTEIN (01/30/2025 6:34 AM CDT) C-REACTIVE PROTEIN 2.71(H) <0.29 mg/dL 01/30/2025 11:59 AM CDT [facility] 01/30/2025 6:34 AM CDT Christ Douglass MD LABORATORY Final Result [facility] [address] [place] [address], [place] [phone] * PROCALCITONIN (PCT) (01/30/2025 6:34 AM CDT) Procalcitonin 0.18 0.00 - 0.49 NG/ML 01/30/2025 2:00 PM CDT [facility] 01/30/2025 6:34 AM CDT Christ Douglass MD LABORATORY Final Result Performing Organization Address City/[facility]/ZIP Co de Phone Number [facility] [address] [place] [address], * HEPATITIS PANEL,ACUTE (01/29/2025 10:28 AM CDT) HEPATITIS B SURFACE AG NON-REACTI VE NON-REACTI VE 01/29/2025 7:27 PM CDT [facility] HEP B CORE IGM NON-REACTI VE NON-REACTI VE 01/29/2025 7:27 PM CDT [facility] HAV IGM NON-REACTI VE NON-REACTI VE 01/29/2025 7:27 PM CDT [facility] HEPATITIS C AB NON-REACTI VE NON-REACTI VE 01/29/2025 7:27 PM CDT [facility] 01/29/2025 10:2 8 AM CDT Christ Douglass MD LABORATORY Final Result Performing Organization Address City/[facility]/ZIP Co de Phone Number [facility] [address] [place] [address], [place] [phone] * (ABNORMAL) COMPREHENSIVE METABOLIC PANEL (01/29/2025 10:28 AM CDT) GLUCOSE 121(H) 70 - 99 MG/DL 01/29/2025 11:02 AM CDT [facility] BUN 15 7 - 18 MG/DL 01/29/2025 11:02 AM CDT [facility] CREATININE S/P/B 0.53(L) 0.55 - 1.02 MG/DL 01/29/2025 11:02 AM T [facility] SODIUM S/P/B 146(H) 136 - 145 MMOL/L 01/29/2025 11:02 AM [facility] POTASSIUM S/P/B 3.5 3.5 - 5.1 MMOL/L 01/29/2025 11:02 AM [facility] CHLORIDE S/P/B 108 97 - 115 MMOL/L 01/29/2025 11:02 AM [facility] CO2 36.3(H) 21 - 32 MMOL/L 01/29/2025 11:02 AM [facility] CALCIUM S/P/B 9.3 8.5 - 10.1 MG/DL 01/29/2025 11:02 AM [facility] BILIRUBIN TOTAL S/P/B 0.6 0.2 - 1.2 MG/DL 01/29/2025 11:02 AM [facility] Comment: THIS ASSAY IS NOT RECOMMENDED FOR PATIENTS UNDERGOING TREATMENT WITH ELTROMBOPAG DUE TO THE POTENTIAL FOR FALSELY ELEVATED RESULTS. TOTAL PROTEIN S/P/B 7.8 6.4 - 8.2 G/DL 01/29/2025 11:02 AM T [facility] ALBUMIN S/P/B 2.4(L) 3.4 - 5.0 G/DL 01/29/2025 11:02 AM T [facility] AST 219(H) 15 - 37 U/L 01/29/2025 11:02 AM [facility] ALT 267(H) 14 - 55 U/L 01/29/2025 11:02 AM [facility] ALKALINE PHOSPHATASE S/P/B 156(H) 50 - 136 U/L 01/29/2025 11:02 AM CDT [facility] ANION GAP 1.7(L) 2 - 10 MMOL/L 01/29/2025 11:02 AM CDT [facility] BUN CREATININE RATIO 28.1(H) 6 - 26 01/29/2025 11:02 AM CDT [facility] A/G RATIO 0.4(L) 1.0 - 2.0 RATIO 01/29/2025 11:02 AM CDT [facility] GFR ESTIMATE >90 >90 ML/MIN/1.7 3 M2 01/29/2025 11:02 AM CDT [facility] Comment: NOTE: eGFR is not [...] CDT Christ Douglass MD LABORATORY Final Result [facility] [address] [place] [address], [place] [phone] * (ABNORMAL) CBC W/DIFF AUTOMATED (01/29/2025 10:28 AM CDT) WBC 8.49 4.5 - 11.0 x10'3/uL 01/29/2025 10:42 AM CDT [facility] RBC 4.17(L) 4.20 - 5.40 x10'6/uL 01/29/2025 10:42 AM CDT [facility] HGB 12.0 12.0 - 16.0 G/DL 01/29/2025 10:42 AM CDT [facility] HCT 38.2 38.0 - 48.0 % 01/29/2025 10:42 AM CDT [facility] MCV 91.6 81.0 - 99.0 FL 01/29/2025 10:42 AM CDT [facility] MCH 28.8 27.0 - 31.0 PG 01/29/2025 10:42 AM CDT [facility] MCHC 31.4(L) 32.0 - 36.0 G/DL 01/29/2025 10:42 AM CDT [facility] RDW 13.6 11.5 - 14.5 % 01/29/2025 10:42 AM CDT [facility] PLT 229 130 - 400 x10'3/uL 01/29/2025 10:42 AM CDT [facility] MPV 11.2 9.3 - 12.2 FL 01/29/2025 10:42 AM T [facility] DIFFERENTIAL TYPE AUTOMATED DIFFERENTIAL 01/29/2025 10:42 AM CDT [facility] NEUTROPHILS % 77.0 % 01/29/2025 10:42 AM CDT [facility] LYMPHOCYTES % 12.7 % 01/29/2025 10:42 AM CDT [facility] MONOCYTES % 9.7 % 01/29/2025 10:42 AM CDT [facility] EOSINOPHILS 0.0 % 01/29/2025 10:42 AM CDT [facility] BASOPHILS 0.1 % 01/29/2025 10:42 AM CDT [facility] IMMATURE GRANS % 0.5 % 01/30/20 10:42 AM CDT [facility] ABS. NEUTROPHILS 6.54 1.80 - 7.70 x10'3/uL 01/29/2025 10:42 AM CDT [facility] ABS. LYMPHOCYTES 1.08 1.00 - 4.80 x10'3/uL 01/29/2025 10:42 AM CDT [facility] ABS. MONOCYTES 0.82 0.24 - 0.86 x10'3/uL 01/29/2025 10:42 AM CDT [facility] ABS. EOSINOPHILS 0.00(L) 0.04 - 0.36 x10'3/uL 01/29/2025 10:42 AM CDT [facility] ABS. BASOPHILS 0.01 0.01 - 0.08 x10'3/uL 01/29/2025 10:42 AM CDT [facility] ABS. IMMATURE GRANULOCYTES 0.04 0.00 - 0.49 x10'3/uL 01/29/2025 10:42 AM CDT [facility] 01/29/2025 10:2 8 AM CDT Christ Douglass MD LABORATORY Final Result [facility] [address] [place] [id number], * PHOSPHORUS, INORGANIC PHOSPHATE (01/29/2025 10:28 AM CDT) PHOSPHORUS 3.0 2.5 - 4.9 MG/DL 01/29/2025 11:02 AM CDT [facility] 01/29/2025 10:2 8 AM CDT us Christ Douglass MD LABORATORY Final Result [facility] [address] [place] [id number], [place] [phone] * MAGNESIUM (01/29/2025 10:28 AM CDT) MAGNESIUM 2.4 1.8 - 2.4 MG/DL 01/29/2025 11:02 AM CDT [facility] 01/29/2025 10:2 8 AM CDT us Christ Douglass MD LABORATORY Final Result [facility] [address] [place] [address], [place] [phone] * PROCALCITONIN (PCT) (01/29/2025 10:28 AM CDT) [facility] Procalcitonin 0.15 0.00 - 0.49 NG/ML 01/29/2025 1:15 PM CDT [facility] 01/29/2025 10:2 8 AM CDT us Christ Douglass MD LABORATORY Final Result Performing Organization Address City/[facility]/ZIP Co de Phone Number [facility] [address] [place] [address], [place] [phone] * (ABNORMAL) C-REACTIVE PROTEIN (01/29/2025 10:28 AM CDT) [facility] C-REACTIVE PROTEIN 1.63(H) <0.29 mg/dL 01/29/2025 12:46 PM CDT [facility] 01/29/2025 10:2 8 AM CDT us Christ Douglass MD LABORATORY Final Result [facility] [address] [place] [address], [place] [phone] * (ABNORMAL) COMPREHENSIVE METABOLIC PANEL (01/28/2025 7:37 AM CDT) [facility] GLUCOSE 108(H) 70 - 99 MG/DL 01/28/2025 8:34 AM CDT [facility] BUN 8 7 - 18 MG/DL 01/28/2025 8:34 AM CDT [facility] CREATININE S/P/B 0.54(L) 0.55 - 1.02 MG/DL 01/28/2025 8:34 AM CDT [facility] SODIUM S/P/B 142 136 - 145 MMOL/L 01/28/2025 8:34 AM CDT [facility] POTASSIUM S/P/B 3.4(L) 3.5 - 5.1 MMOL/L 01/28/2025 8:34 AM CDT [facility] CHLORIDE S/P/B 106 97 - 115 MMOL/L 01/28/2025 8:34 AM CDT [facility] CO2 33.6(H) 21 - 32 MMOL/L 01/28/2025 8:34 AM CDT [facility] [facility] CALCIUM S/P/B 8.9 8.5 - 10.1 MG/DL 01/28/2025 8:34 AM CDT [facility] BILIRUBIN TOTAL S/P/B 1.5(H) 0.2 - 1.2 MG/DL 01/28/2025 8:34 AM CDT [facility] Comment: THIS ASSAY IS NOT RECOMMENDED FOR PATIENTS UNDERGOING TREATMENT WITH ELTROMBOPAG DUE TO THE POTENTIAL FOR FALSELY ELEVATED RESULTS. TOTAL PROTEIN S/P/B 7.6 6.4 - 8.2 G/DL 01/28/2025 8:34 AM CDT [facility] ALBUMIN S/P/B 2.2(L) 3.4 - 5.0 G/DL 01/28/2025 8:34 AM CDT [facility] AST 182(H) 15 - 37 U/L 01/28/2025 8:34 AM CDT [facility] ALT 152(H) 14 - 55 U/L 01/28/2025 8:34 AM CDT [facility] ALKALINE PHOSPHATASE S/P/B 94 50 - 136 U/L 01/28/2025 8:34 AM CDT [facility] ANION GAP 2.4 2 - 10 MMOL/L 01/28/2025 8:34 AM CDT [facility] BUN CREATININE RATIO 14.7 6 - 26 01/28/2025 8:34 AM CDT [facility] A/G RATIO 0.4(L) 1.0 - 2.0 RATIO 01/28/2025 8:34 AM CDT [facility] GFR ESTIMATE >90 >90 ML/MIN/1.7 3 M2 01/28/2025 8:34 AM CDT [facility] Comment: NOTE: eGFR is not calculated for patients <18 years of age or gender unknown. This is an estimated GFR calculation using the new CKD EPI creatinine equation without race and so does not require a correction factor for race. This estimated GFR should not be used for calculating drug doses. 01/28/2025 7:37 AM CDT Christ Douglass MD LABORATORY Final Result [facility] [address] [place] [address], [place] [phone] * (ABNORMAL) CBC W/DIFF AUTOMATED (01/28/2025 7:37 AM CDT) WBC 6.46 4.5 - 11.0 x10'3/uL 01/28/2025 8:25 AM CDT [facility] RBC 4.33 4.20 - 5.40 x10'6/uL 01/28/2025 8:25 AM CDT [facility] HGB 12.4 12.0 - 16.0 G/DL 01/28/2025 8:25 AM CDT [facility] HCT 39.3 38.0 - 48.0 % 01/28/2025 8:25 AM CDT [facility] MCV 90.8 81.0 - 99.0 FL 01/28/2025 8:25 AM CDT [facility] MCH 28.6 27.0 - 31.0 PG 01/28/2025 8:25 AM CDT [facility] MCHC 31.6(L) 32.0 - 36.0 G/DL 01/28/2025 8:25 AM CDT [facility] RDW 13.5 11.5 - 14.5 % 01/28/2025 8:25 AM CDT [facility] PLT 201 130 - 400 x10'3/uL 01/28/2025 8:25 AM CDT [facility] MPV 11.3 9.3 - 12.2 FL 01/28/2025 8:25 AM CDT [facility] DIFFERENTIAL TYPE AUTOMATED DIFFERENTIAL 01/28/2025 8:25 AM CDT [facility] NEUTROPHILS % 62.7 % 01/28/2025 8:25 AM CDT [facility] LYMPHOCYTES % 26.2 % 01/28/2025 8:25 AM CDT [facility] MONOCYTES % 10.4 % 01/28/2025 8:25 AM CDT [facility] EOSINOPHILS 0.0 % 01/28/2025 8:25 AM CDT [facility] BASOPHILS 0.2 % 01/28/2025 8:25 AM CDT [facility] IMMATURE GRANS % 0.5 % 01/29/20 8:25 AM CDT [facility] ABS. NEUTROPHILS 4.06 1.80 - 7.70 x10'3/uL 01/28/2025 8:25 AM CDT [facility] ABS. LYMPHOCYTES 1.69 1.00 - 4.80 x10'3/uL 01/28/2025 8:25 AM CDT [facility] ABS. MONOCYTES 0.67 0.24 - 0.86 x10'3/uL 01/28/2025 8:25 AM CDT [facility] ABS. EOSINOPHILS 0.00(L) 0.04 - 0.36 x10'3/uL 01/28/2025 8:25 AM CDT [facility] ABS. BASOPHILS 0.01 0.01 - 0.08 x10'3/uL 01/28/2025 8:25 AM CDT [facility] ABS. IMMATURE GRANULOCYTES 0.03 0.00 - 0.49 x10'3/uL 01/28/2025 8:25 AM CDT [facility] 01/28/2025 7:37 AM CDT Christ Douglass MD LABORATORY Final Result [facility] [address] [place] [address], [place] [phone] * (ABNORMAL) C-REACTIVE PROTEIN (01/28/2025 7:37 AM CDT) C-REACTIVE PROTEIN 1.44(H) <0.29 mg/dL 01/28/2025 11:05 AM CDT [facility] 01/28/2025 7:37 AM CDT Christ Douglass MD LABORATORY Final Result Performing Organization Address City/[facility]/ZIP Co de Phone Number [facility] [address] [place] [phone], * PROCALCITONIN (PCT) (01/28/2025 7:37 AM CDT) Procalcitonin 0.07 0.00 - 0.49 NG/ML 01/28/2025 9:29 AM CDT [facility] 01/28/2025 7:37 AM CDT Christ Douglass MD LABORATORY Final Result Performing Organization Address City/[facility] Co de Phone Number [facility] [address] [place] [address], [place] [phone] * MAGNESIUM (01/28/2025 7:37 AM CDT) MAGNESIUM 2.1 1.8 - 2.4 MG/DL 01/28/2025 8:34 AM CDT [facility] 01/28/2025 7:37 AM CDT Christ Douglass MD LABORATORY Final Result Performing Organization Address City/[facility] Co de Phone Number [facility] [address] [place] [phone], * (ABNORMAL) BASIC METABOLIC PANEL (01/27/2025 5:59 AM CDT) GLUCOSE 107(H) 70 - 99 MG/DL 01/27/2025 7:06 AM CDT [facility] BUN 8 7 - 18 MG/DL 01/27/2025 7:06 AM T [facility] CREATININE S/P/B 0.45(L) 0.55 - 1.02 MG/DL 01/27/2025 7:06 AM [facility] SODIUM S/P/B 144 136 - 145 MMOL/L 01/27/2025 7:06 AM [facility] POTASSIUM S/P/B 2.9(LL) 3.5 - 5.1 MMOL/L 01/27/2025 7:06 AM [facility] Comment: Critical Result(s) Called at: 07:05:27 on 01/27/2025 by: KATEY VANN to and read back by: GINGER HOLGUIN CHLORIDE S/P/B 106 97 - 115 MMOL/L 01/27/2025 7:06 AM [facility] CO2 36.4(H) 21 - 32 MMOL/L 01/27/2025 7:06 AM [facility] CALCIUM S/P/B 8.9 8.5 - 10.1 MG/DL 01/27/2025 7:06 AM [facility] ANION GAP 1.6(L) 2 - 10 MMOL/L 01/27/2025 7:06 AM [facility] BUN CREATININE RATIO 17.9 6 - 26 01/27/2025 7:06 AM [facility] GFR ESTIMATE >90 >90 ML/MIN/1.7 3 M2 01/27/2025 7:06 AM [facility] Comment: NOTE: eGFR is not calculated for patients <18 years of age or gender unknown. This is an estimated GFR calculation using the new CKD EPI creatinine equation without race and so does not require a correction factor for race. This estimated GFR should not be used for calculating drug doses. 01/27/2025 5:59 AM CDT us Lexus Barroso MD LABORATORY Final Result [facility] [address] [place] [address], [place] [phone] * (ABNORMAL) CBC W/DIFF AUTOMATED (01/27/2025 5:59 AM CDT) Pathologist [facility] WBC 6.75 4.5 - 11.0 x10'3/uL 01/27/2025 6:22 AM CDT [facility] RBC 3.64(L) 4.20 - 5.40 x10'6/uL 01/27/2025 6:22 AM CDT [facility] HGB 10.4(L) 12.0 - 16.0 G/DL 01/27/2025 6:22 AM CDT [facility] HCT 32.8(L) 38.0 - 48.0 % 01/27/2025 6:22 AM CDT [facility] MCV 90.1 81.0 - 99.0 FL 01/27/2025 6:22 AM CDT [facility] MCH 28.6 27.0 - 31.0 PG 01/27/2025 6:22 AM CDT [facility] MCHC 31.7(L) 32.0 - 36.0 G/DL 01/27/2025 6:22 AM CDT [facility] RDW 13.4 11.5 - 14.5 % 01/27/2025 6:22 AM CDT [facility] PLT 202 130 - 400 x10'3/uL 01/27/2025 6:22 AM CDT [facility] MPV 11.2 9.3 - 12.2 FL 01/27/2025 6:22 AM CDT [facility] DIFFERENTIAL TYPE AUTOMATED DIFFERENTIAL 01/27/2025 6:22 AM CDT [facility] NEUTROPHILS % 62.7 % 01/27/2025 6:22 AM T [facility] LYMPHOCYTES % 28.6 % 01/27/2025 6:22 AM T [facility] MONOCYTES % 8.4 % 01/27/2025 6:22 AM T [facility] EOSINOPHILS 0.0 % 01/27/2025 6:22 AM CDT [facility] BASOPHILS 0.0 % 01/27/2025 6:22 AM T [facility] IMMATURE GRANS % 0.3 % 01/28/20 6:22 AM T [facility] ABS. NEUTROPHILS 4.23 1.80 - 7.70 x10'3/uL 01/27/2025 6:22 AM CDT [facility] ABS. LYMPHOCYTES 1.93 1.00 - 4.80 x10'3/uL 01/27/2025 6:22 AM T [facility] ABS. MONOCYTES 0.57 0.24 - 0.86 x10'3/uL 01/27/2025 6:22 AM [facility] ABS. EOSINOPHILS 0.00(L) 0.04 - 0.36 x10'3/uL 01/27/2025 6:22 AM T [facility] ABS. BASOPHILS 0.00(L) 0.01 - 0.08 x10'3/uL 01/27/2025 6:22 AM [facility] ABS. IMMATURE GRANULOCYTES 0.02 0.00 - 0.49 x10'3/uL 01/27/2025 6:22 AM [facility] 01/27/2025 5:59 AM CDT Lexus Barroso MD LABORATORY Final Result Performing Organization Address City/[facility] Co de Phone Number [facility] [address] [place] [address], [place] [phone] * (ABNORMAL) POCT glucose (01/26/2025 4:08 PM CDT) GLUCOSE POC 133(H) 70 - 99 mg/dL 01/26/2025 4:50 PM CDT [facility] 01/26/2025 4:08 PM CDT Lexus Barroso MD POCT ORDERABLES - DEVICE Final Result Performing Organization Address [facility] de Phone Number [facility] [address] [place] [address], [place] [phone] * POCT glucose (01/26/2025 10:15 AM CDT) GLUCOSE POC 87 70 - 99 mg/dL 01/26/2025 10:17 AM CDT [facility] 01/26/2025 10:1 5 AM CDT Lexus Barroso MD POCT ORDERABLES - DEVICE Final Result Performing Organization Address [facility] Co de Phone Number [facility] [address] [place] [address], [place] [phone] * XR SPEECH SWALLOW??KRISTINA ONLY (01/26/2025 10:13 AM CDT) Anatomical Region Laterality Modality NA Radiographic Yolis ging 01/26/2025 5:09 PM CDT Impressions 01/26/2025 5:13 PM CDT =====IMPRESSION:===== No aspiration. Please see speech pathology recommendations. Ordered By: RADHA RODRIGEZ Interpreted By: Jorge Arroyo MD, 01/26/2025 5:09 PM Narrative 01/26/2025 5:[address] PM [address]T [address] [id number] Examination: Modified barium swallow Exam date/time: 01/26/2025 [...] Note Jorge Arroyo MD - 01/26/[address] [address] Examination: Modified barium swallow Exam date/time: 01/26/2025 [...] Arroyo MD, 01/26/2025 5:09 PM Radha Rodrigez ERGONOMIST FLUOROSCOPY Fin al Result * MAGNESIUM (01/26/2025 6:28 AM CDT) MAGNESIUM 2.1 1.8 - 2.4 MG/DL 01/26/2025 10:23 AM CDT [facility] 01/26/2025 6:28 AM CDT Lexus Barroso MD LABORATORY Final Result [facility] [address] [place] [address], [place] [phone] * (ABNORMAL) BASIC METABOLIC PANEL (01/26/2025 6:28 AM CDT) GLUCOSE 72 70 - 99 MG/DL 01/26/2025 7:04 AM CDT [facility] BUN 14 7 - 18 MG/DL 01/26/2025 7:04 AM CDT [facility] CREATININE S/P/B 0.63 0.55 - 1.02 MG/DL 01/26/2025 7:04 AM CDT [facility] SODIUM S/P/B 147(H) 136 - 145 MMOL/L 01/26/2025 7:04 AM CDT [facility] POTASSIUM S/P/B 3.4(L) 3.5 - 5.1 MMOL/L 01/26/2025 7:04 AM CDT [facility] CHLORIDE S/P/B 109 97 - 115 MMOL/L 01/26/2025 7:04 AM CDT [facility] CO2 35.0(H) 21 - 32 MMOL/L 01/26/2025 7:04 AM CDT [facility] CALCIUM S/P/B 10.1 8.5 - 10.1 MG/DL 01/26/2025 7:04 AM CDT [facility] ANION GAP 3.0 2 - 10 MMOL/L 01/26/2025 7:04 AM T [facility] BUN CREATININE RATIO 22.3 6 - 26 01/26/2025 7:04 AM CDT [facility] GFR ESTIMATE >90 >90 ML/MIN/1.7 3 M2 01/26/2025 7:04 AM T [facility] Comment: NOTE: eGFR is not [...] us Lexus Barroso MD LABORATORY Final Result [facility] [address] [place] [address], [place] [phone] * (ABNORMAL) CBC W/DIFF AUTOMATED (01/26/2025 6:28 AM CDT) WBC 9.88 4.5 - 11.0 x10'3/uL 01/26/2025 7:51 AM CDT [facility] RBC 4.44 4.20 - 5.40 x10'6/uL 01/26/2025 7:51 AM CDT [facility] HGB 12.7 12.0 - 16.0 G/DL 01/26/2025 7:51 AM CDT [facility] HCT 40.8 38.0 - 48.0 % 01/26/2025 7:51 AM CDT [facility] MCV 91.9 81.0 - 99.0 FL 01/26/2025 7:51 AM CDT [facility] MCH 28.6 27.0 - 31.0 PG 01/26/2025 7:51 AM CDT [facility] MCHC 31.1(L) 32.0 - 36.0 G/DL 01/26/2025 7:51 AM CDT [facility] RDW 13.9 11.5 - 14.5 % 01/26/2025 7:51 AM CDT [facility] PLT 246 130 - 400 x10'3/uL 01/26/2025 7:51 AM CDT [facility] MPV 11.2 9.3 - 12.2 FL 01/26/2025 7:51 AM CDT [facility] DIFFERENTIAL TYPE AUTOMATED DIFFERENTIAL 01/26/2025 7:51 AM CDT [facility] NEUTROPHILS % 67.2 % 01/26/2025 7:51 AM CDT [facility] LYMPHOCYTES % 25.2 % 01/26/2025 7:51 AM CDT [facility] MONOCYTES % 7.2 % 01/26/2025 7:51 AM CDT [facility] EOSINOPHILS 0.0 % 01/26/2025 7:51 AM CDT [facility] BASOPHILS 0.1 % 01/26/2025 7:51 AM CDT [facility] IMMATURE GRANS % 0.3 % 01/27/20 7:51 AM CDT [facility] ABS. NEUTROPHILS 6.64 1.80 - 7.70 x10'3/uL 01/26/2025 7:51 AM CDT [facility] ABS. LYMPHOCYTES 2.49 1.00 - 4.80 x10'3/uL 01/26/2025 7:51 AM CDT [facility] ABS. MONOCYTES 0.71 0.24 - 0.86 x10'3/uL 01/26/2025 7:51 AM CDT [facility] ABS. EOSINOPHILS 0.00(L) 0.04 - 0.36 x10'3/uL 01/26/2025 7:51 AM CDT [facility] ABS. BASOPHILS 0.01 0.01 - 0.08 x10'3/uL 01/26/2025 7:51 AM CDT [facility] ABS. IMMATURE GRANULOCYTES 0.03 0.00 - 0.49 x10'3/uL 01/26/2025 7:51 AM CDT [facility] 01/26/2025 6:28 AM CDT us Lexus Barroso MD LABORATORY Final Result [facility] [address] [place] [address], [place] [phone] * POCT glucose (01/26/2025 5:30 AM CDT) GLUCOSE POC 72 70 - 99 mg/dL 01/26/2025 5:34 AM CDT [facility] 01/26/2025 5:30 AM CDT us Lexus Barroso MD POCT ORDERABLES - DEVICE Final Result [facility] [address] [place] [address], [place] [phone] * XR CHEST PORTABLE (01/26/2025 4:37 AM [...] AM Narrative 01/26/2025 4:42 AM CDT [address] [address] Examination: XR CHEST PORTABLE Exam time: 01/26/2025 4:00 AM Indication: Aspiration pneumonia Comparison: Chest 01/24/2025 Findings: Semiupright AP view of the chest was obtained. There is worsening consolidation or atelectasis in the right lower lung. There is possible right-sided volume loss with mild mediastinal shift to the right. There is no pleural effusion or pneumothorax. Procedure Note Kurt Crowder MD - 01/26/[address] [address] Examination: XR CHEST PORTABLE Exam time: 01/26/2025 [...] - 99 mg/dL 01/25/2025 3:59 PM CDT [facility] 01/25/2025 3:57 PM CDT Lexus Barroso MD POCT ORDERABLES - DEVICE Final Result Performing Organization Address City/[facility]/ZIP Co de Phone Number [facility] [address] [place] [address], [place] [phone] * POCT glucose (01/25/2025 11:13 AM CDT) GLUCOSE POC 96 70 - 99 mg/dL 01/25/2025 11:16 AM CDT [facility] 01/25/2025 11:1 3 AM CDT Lexus Barroso MD POCT ORDERABLES - DEVICE Final Result Performing Organization Address City/[facility]/ZIP Co de Phone Number [facility] [address] [place] [address], [place] [phone] * (ABNORMAL) ARTERIAL BLOOD GAS (01/25/2025 10:33 AM CDT) Pathologist [facility] [place] PH ARTERIAL 7.44 7.35 - 7.45 01/25/2025 12:37 PM CDT [facility] PCO2 53.0(H) 35.0 - 45.0 MMHG 01/25/2025 12:37 PM CDT [facility] PO2 89.0 83.0 - 108.0 MMHG 01/25/2025 12:37 PM CDT [facility] TOTAL CO2 ARTERIAL 37.6(H) 19.0 - 24.0 MMOL/L 01/25/2025 12:37 PM CDT [facility] BASE EXCESS 9.9(H) 0.0 - 3.0 MMOL/L 01/25/2025 12:37 PM CDT [facility] O2 SATURATION 97 94.0 - 98.0 % 01/25/2025 12:37 PM CDT [facility] BICARB ARTERIAL 36.0(H) 21.0 - 28.0 MMOL/L 01/25/2025 12:37 PM CDT [facility] O2 ADMIN ARTERIAL 32% 01/25/2025 12:35 PM CDT [facility] DRAW SITE ARTERIAL RIGHT BRACHIAL 01/25/2025 12:35 PM T [facility] 01/25/2025 10:3 3 AM CDT us Radha Rodrigez NP LABORATORY Fin al Result [facility] [address] [place] [address], [place] [phone] * (ABNORMAL) BASIC METABOLIC PANEL (01/25/2025 5:59 AM CDT) Pathologist [facility] [place] GLUCOSE 104(H) 70 - 99 MG/DL 01/25/2025 6:40 AM [facility] BUN 12 7 - 18 MG/DL 01/25/2025 6:40 AM [facility] CREATININE S/P/B 0.68 0.55 - 1.02 MG/DL 01/25/2025 6:40 AM [facility] SODIUM S/P/B 149(H) 136 - 145 MMOL/L 01/25/2025 6:40 AM [facility] POTASSIUM S/P/B 3.2(L) 3.5 - 5.1 MMOL/L 01/25/2025 6:40 AM [facility] CHLORIDE S/P/B 110 97 - 115 MMOL/L 01/25/2025 6:40 AM [facility] CO2 37.7(H) 21 - 32 MMOL/L 01/25/2025 6:40 AM [facility] CALCIUM S/P/B 9.3 8.5 - 10.1 MG/DL 01/25/2025 6:40 AM [facility] ANION GAP 1.3(L) 2 - 10 MMOL/L 01/25/2025 6:40 AM [facility] BUN CREATININE RATIO 17.7 6 - 26 01/25/2025 6:40 AM [facility] GFR ESTIMATE >90 >90 ML/MIN/1.7 3 M2 01/25/2025 6:40 AM [facility] Comment: NOTE: eGFR is [...] CDT Shahida Davila MD LABORATORY Final Result [facility] [address] [place] [address], [place] [phone] * (ABNORMAL) CBC W/DIFF AUTOMATED (01/25/2025 5:59 AM CDT) Pathologist [facility] WBC 9.63 4.5 - 11.0 x10'3/uL 01/25/2025 6:21 AM CDT [facility] RBC 4.01(L) 4.20 - 5.40 x10'6/uL 01/25/2025 6:21 AM CDT [facility] HGB 11.4(L) 12.0 - 16.0 G/DL 01/25/2025 6:21 AM CDT [facility] HCT 37.2(L) 38.0 - 48.0 % 01/25/2025 6:21 AM CDT [facility] MCV 92.8 81.0 - 99.0 FL 01/25/2025 6:21 AM CDT [facility] MCH 28.4 27.0 - 31.0 PG 01/25/2025 6:21 AM CDT [facility] MCHC 30.6(L) 32.0 - 36.0 G/DL 01/25/2025 6:21 AM CDT [facility] RDW 14.2 11.5 - 14.5 % 01/25/2025 6:21 AM CDT [facility] PLT 245 130 - 400 x10'3/uL 01/25/2025 6:21 AM CDT [facility] MPV 10.9 9.3 - 12.2 FL 01/25/2025 6:21 AM [facility] DIFFERENTIAL TYPE AUTOMATED DIFFERENTIAL 01/25/2025 6:21 AM [facility] NEUTROPHILS % 79.1 % 01/25/2025 6:21 AM [facility] LYMPHOCYTES % 14.0 % 01/25/2025 6:21 AM [facility] MONOCYTES % 6.5 % 01/25/2025 6:21 AM [facility] EOSINOPHILS 0.0 % 01/25/2025 6:21 AM [facility] BASOPHILS 0.1 % 01/25/2025 6:21 AM [facility] IMMATURE GRANS % 0.3 % 01/26/20 6:21 AM [facility] ABS. NEUTROPHILS 7.61 1.80 - 7.70 x10'3/uL 01/25/2025 6:21 AM [facility] ABS. LYMPHOCYTES 1.35 1.00 - 4.80 x10'3/uL 01/25/2025 6:21 AM [facility] ABS. MONOCYTES 0.63 0.24 - 0.86 x10'3/uL 01/25/2025 6:21 AM [facility] ABS. EOSINOPHILS 0.00(L) 0.04 - 0.36 x10'3/uL 01/25/2025 6:21 AM [facility] ABS. BASOPHILS 0.01 0.01 - 0.08 x10'3/uL 01/25/2025 6:21 AM [facility] ABS. IMMATURE GRANULOCYTES 0.03 0.00 - 0.49 x10'3/uL 01/25/2025 6:21 AM [facility] 01/25/2025 5:59 AM CDT Shahida Davila MD LABORATORY Final Result [facility] [address] [place] [address], [place] [phone] * (ABNORMAL) BASIC METABOLIC PANEL (01/24/2025 7:55 PM CDT) [facility] GLUCOSE 105(H) 70 - 99 MG/DL 01/24/2025 8:44 PM CDT [facility] BUN 10 7 - 18 MG/DL 01/24/2025 8:44 PM CDT [facility] CREATININE S/P/B 0.43(L) 0.55 - 1.02 MG/DL 01/24/2025 8:44 PM CDT [facility] SODIUM S/P/B 151(H) 136 - 145 MMOL/L 01/24/2025 8:44 PM CDT [facility] POTASSIUM S/P/B 3.4(L) 3.5 - 5.1 MMOL/L 01/24/2025 8:44 PM CDT [facility] CHLORIDE S/P/B 111 97 - 115 MMOL/L 01/24/2025 8:44 PM CDT [facility] CO2 42.0(HH) 21 - 32 MMOL/L 01/24/2025 8:44 PM CDT [facility] Comment: Critical Result(s) Called at: 20:43:20 on 01/24/2025 by: MONTY CANSECO to and read back by:MONIKA GAY CALCIUM S/P/B 9.2 8.5 - 10.1 MG/DL 01/24/2025 8:44 PM CDT [facility] ANION GAP NOT CALCULATED 2 - 10 MMOL/L 01/24/2025 8:44 PM CDT [facility] BUN CREATININE RATIO 23.4 6 - 26 01/24/2025 8:44 PM CDT [facility] GFR ESTIMATE >90 >90 ML/MIN/1. 73 M2 01/24/2025 8:44 PM CDT [facility] Comment: NOTE: eGFR is not [...] MD LABORATORY Final Result Performing Organization Address [facility]/ZIP Co de Phone Number [facility] [address] [place] [phone], * MRSA SCREENING (01/24/2025 5:40 PM CDT) SPEC DESCRIPTION NASAL 01/24/2025 5:45 PM CDT [facility] SPECIAL REQUESTS NO SPECIAL REQUEST 01/24/2025 5:45 PM CDT [facility] CULTURE RESULT NO METHICILLIN RESISTANT STAPHYLOCOCCUS AUREUS ISOLATED 01/25/2025 12:24 PM CDT [facility] SPECIMEN FROM INTERNAL NOSE / Unknown 01/24/2025 5:40 PM CDT 01/24/2025 5:48 PM CDT us Radha Rodrigez NP MICROBIOLOGY - GENE RAL ORDERABLES Final Result Performing Organization Address City/[facility]/ZIP Co de Phone Number [facility] [address] [place] [address], [place] [phone] * (ABNORMAL) BASIC METABOLIC PANEL (01/24/2025 3:30 PM CDT) GLUCOSE 123(H) 70 - 99 MG/DL 01/24/2025 4:25 PM CDT [facility] BUN 12 7 - 18 MG/DL 01/24/2025 4:25 PM CDT [facility] CREATININE S/P/B 0.40(L) 0.55 - 1.02 MG/DL 01/24/2025 4:25 PM CDT [facility] SODIUM S/P/B 150(H) 136 - 145 MMOL/L 01/24/2025 4:25 PM CDT [facility] POTASSIUM S/P/B 2.6(LL) 3.5 - 5.1 MMOL/L 01/24/2025 4:25 PM CDT [facility] Comment: Critical Result(s) Called at: 16:23:54 on 01/24/2025 by: AIDE ROSE to and read back by: RUTH ADHIKARI CHLORIDE S/P/B 110 97 - 115 MMOL/L 01/24/2025 4:25 PM CDT [facility] CO2 40.8(HH) 21 - 32 MMOL/L 01/24/2025 4:25 PM CDT [facility] Comment: Critical Result(s) Called at: 16:24:06 on 01/24/2025 by: AIDE ROSE to and read back by: RUTH ADHIKARI CALCIUM S/P/B 9.4 8.5 - 10.1 MG/DL 01/24/2025 4:25 PM CDT [facility] ANION GAP NOT CALCULATED 2 - 10 MMOL/L 01/24/2025 4:25 PM CDT [facility] BUN CREATININE RATIO 30.0(H) 6 - 26 01/24/2025 4:25 PM CDT [facility] GFR ESTIMATE >90 >90 ML/MIN/1. 73 M2 01/24/2025 4:25 PM CDT [facility] Comment: NOTE: eGFR is not calculated for patients <18 years of age or gender unknown. This is an estimated GFR calculation using the new CKD EPI creatinine equation without race and so does not require a correction factor for race. This estimated GFR should not be used for calculating drug doses. 01/24/2025 3:30 PM CDT Lexus Barroso MD LABORATORY Final Result [facility] [address] [place] [address], [place] [phone] * (ABNORMAL) BASIC METABOLIC PANEL (01/24/2025 9:01 AM CDT) GLUCOSE 77 70 - 99 MG/DL 01/24/2025 9:49 AM CDT [facility] BUN 13 7 - 18 MG/DL 01/24/2025 9:49 AM CDT [facility] CREATININE S/P/B 0.47(L) 0.55 - 1.02 MG/DL 01/24/2025 9:49 AM CDT [facility] SODIUM S/P/B 150(H) 136 - 145 MMOL/L 01/24/2025 9:49 AM CDT [facility] POTASSIUM S/P/B 5.2(H) 3.5 - 5.1 MMOL/L 01/24/2025 9:49 AM CDT [facility] CHLORIDE S/P/B 112 97 - 115 MMOL/L 01/24/2025 9:49 AM CDT [facility] CO2 34.2(H) 21 - 32 MMOL/L 01/24/2025 9:49 AM CDT [facility] CALCIUM S/P/B 9.6 8.5 - 10.1 MG/DL 01/24/2025 9:49 AM CDT [facility] ANION GAP 3.8 2 - 10 MMOL/L 01/24/2025 9:49 AM CDT [facility] BUN CREATININE RATIO 27.9(H) 6 - 26 01/24/2025 9:49 AM CDT [facility] GFR ESTIMATE >90 >90 ML/MIN/1.7 3 M2 01/24/2025 9:49 AM CDT [facility] Comment: NOTE: eGFR is not calculated for patients <18 years of age or gender unknown. This is an estimated GFR calculation using the new CKD EPI creatinine equation without race and so does not require a correction factor for race. This estimated GFR should not be used for calculating drug doses. 01/24/2025 9:01 AM CDT Lexus Barroso MD LABORATORY Final Result [facility] [address] [place] [address], [place] [phone] * (ABNORMAL) BASIC METABOLIC PANEL (01/24/2025 6:12 AM CDT) GLUCOSE 82 70 - 99 MG/DL 01/24/2025 7:14 AM CDT [facility] BUN 13 7 - 18 MG/DL 01/24/2025 7:14 AM CDT [facility] CREATININE S/P/B 0.49(L) 0.55 - 1.02 MG/DL 01/24/2025 7:14 AM CDT [facility] SODIUM S/P/B 154(H) 136 - 145 MMOL/L 01/24/2025 7:14 AM CDT [facility] POTASSIUM S/P/B 2.8(LL) 3.5 - 5.1 MMOL/L 01/24/2025 7:14 AM CDT [facility] Comment: Critical Result(s) Called at: 07:12:56 on 01/24/2025 by: CECILLE BENTON to and read back by:NEAL LOPEZ CHLORIDE S/P/B 113 97 - 115 MMOL/L 01/24/2025 7:14 AM CDT [facility] CO2 34.7(H) 21 - 32 MMOL/L 01/24/2025 7:14 AM CDT [facility] CALCIUM S/P/B 9.7 8.5 - 10.1 MG/DL 01/24/2025 7:14 AM CDT [facility] ANION GAP 6.3 2 - 10 MMOL/L 01/24/2025 7:14 AM CDT [facility] BUN CREATININE RATIO 26.4(H) 6 - 26 01/24/2025 7:14 AM T [facility] GFR ESTIMATE >90 >90 ML/MIN/1.7 3 M2 01/24/2025 7:14 AM CDT [facility] Comment: NOTE: eGFR is not calculated for patients <18 years of age or gender unknown. This is an estimated GFR calculation using the new CKD EPI creatinine equation without race and so does not require a correction factor for race. This estimated GFR should not be used for calculating drug doses. 01/24/2025 6:12 AM CDT Shahida Davila MD LABORATORY Final Result [facility] [address] [place] [address], * (ABNORMAL) CBC W/DIFF AUTOMATED (01/24/2025 6:12 AM CDT) WBC 10.90 4.5 - 11.0 x10'3/uL 01/24/2025 6:38 AM CDT [facility] RBC 4.12(L) 4.20 - 5.40 x10'6/uL 01/24/2025 6:38 AM CDT [facility] HGB 11.5(L) 12.0 - 16.0 G/DL 01/24/2025 6:38 AM CDT [facility] HCT 38.7 38.0 - 48.0 % 01/24/2025 6:38 AM CDT [facility] MCV 93.9 81.0 - 99.0 FL 01/24/2025 6:38 AM CDT [facility] MCH 27.9 27.0 - 31.0 PG 01/24/2025 6:38 AM CDT [facility] MCHC 29.7(L) 32.0 - 36.0 G/DL 01/24/2025 6:38 AM CDT [facility] RDW 14.2 11.5 - 14.5 % 01/24/2025 6:38 AM CDT [facility] PLT 238 130 - 400 x10'3/uL 01/24/2025 6:38 AM CDT [facility] MPV 11.0 9.3 - 12.2 FL 01/24/2025 6:38 AM T [facility] DIFFERENTIAL TYPE AUTOMATED DIFFERENTIAL 01/24/2025 6:38 AM CDT [facility] NEUTROPHILS % 81.4 % 01/24/2025 6:38 AM CDT [facility] LYMPHOCYTES % 11.7 % 01/24/2025 6:38 AM T [facility] MONOCYTES % 6.5 % 01/24/2025 6:38 AM CDT [facility] EOSINOPHILS 0.0 % 01/24/2025 6:38 AM CDT [facility] BASOPHILS 0.1 % 01/24/2025 6:38 AM CDT [facility] IMMATURE GRANS % 0.3 % 01/25/20 6:38 AM CDT [facility] ABS. NEUTROPHILS 8.87(H) 1.80 - 7.70 x10'3/uL 01/24/2025 6:38 AM CDT [facility] ABS. LYMPHOCYTES 1.28 1.00 - 4.80 x10'3/uL 01/24/2025 6:38 AM CDT [facility] ABS. MONOCYTES 0.71 0.24 - 0.86 x10'3/uL 01/24/2025 6:38 AM CDT [facility] ABS. EOSINOPHILS 0.00(L) 0.04 - 0.36 x10'3/uL 01/24/2025 6:38 AM CDT [facility] ABS. BASOPHILS 0.01 0.01 - 0.08 x10'3/uL 01/24/2025 6:38 AM CDT [facility] ABS. IMMATURE GRANULOCYTES 0.03 0.00 - 0.49 x10'3/uL 01/24/2025 6:38 AM CDT [facility] 01/24/2025 6:12 AM CDT Shahida Davila MD LABORATORY Final Result [facility] [address] [place] [address], * Vancomycin Random Level (01/24/2025 6:12 AM CDT) VANCOMYCIN RANDOM 8.1 MCG/ML 01/24/2025 7:14 AM CDT [facility] Comment:NO THERAPEUTIC RANGE AVAILABLE LAST DOSE UNKNOWN LAST DOSE 01/24/2025 8:11 AM CDT [facility] 01/24/2025 6:12 AM CDT Shahida Davila MD LABORATORY Final Result [facility] [address] [place] [address], [place] [phone] * XR CHEST PORTABLE (01/24/2025 4:42 AM CDT) Anatomical Region Laterality Modality Chest Radiographic Yolis ging 01/24/2025 5:16 AM CDT Impressions 01/24/2025 5:17 AM CDT IMPRESSION: Mild improved aeration of the right lung with significant infiltrate persisting in the mid and lower lung. Referred By: Interpreted By: Kurt Crowder MD, 01/24/2025 5:16 AM Narrative 01/24/2025 5:17 AM CDT [address] [address] Examination: XR CHEST PORTABLE Exam time: 01/24/2025 [...] Note Kurt Crowder MD - 01/24/[address] [address] Examination: XR CHEST PORTABLE Exam time: 01/24/2025 [...] 7.35 - 7.45 01/23/2025 10:44 PM CDT [facility] PCO2 60.0(H) 35.0 - 45.0 MMHG 01/23/2025 10:44 PM CDT [facility] PO2 77.0(L) 83.0 - 108.0 MMHG 01/23/2025 10:44 PM CDT [facility] TOTAL CO2 ARTERIAL 47.5(H) 19.0 - 24.0 MMOL/L 01/23/2025 10:44 PM CDT [facility] BASE EXCESS 18.9(H) 0.0 - 3.0 MMOL/L 01/23/2025 10:44 PM CDT [facility] O2 SATURATION 96 94.0 - 98.0 % 01/23/2025 10:44 PM CDT [facility] BICARB ARTERIAL 45.7(H) 21.0 - 28.0 MMOL/L 01/23/2025 10:44 PM CDT [facility] O2 ADMIN ARTERIAL 30 01/23/2025 10:42 PM CDT [facility] DRAW SITE ARTERIAL RT BRACH 01/23/2025 10:42 PM CDT [facility] 01/23/2025 9:57 PM CDT Eloisa Hi MD LABORATORY Final Resul t Performing Organization Address City/[facility]/ZIP Co de Phone Number [facility] [address] [place] [address], * (ABNORMAL) PRO-BRAIN NATRIURETIC PEPTIDE (01/23/2025 9:20 PM CDT) PRO-B TYPE NATRIURETIC PEPTIDE 812(H) <125 PG/ML 01/23/2025 10:10 PM CDT [facility] Comment: CUT POINTS ESTABLISHED BY [...] Elvis Sosa DO LABORATORY Final Resu lt [facility] [address] [place] [address], [place] [phone] * PROCALCITONIN (PCT) (01/23/2025 9:20 PM CDT) Procalcitonin <0.05 0.00 - 0.49 NG/ML 01/24/2025 2:57 AM CDT [facility] 01/23/2025 9:20 PM CDT Elvis Sosa DO LABORATORY Final Resu lt [facility] [address] [place] [address], [place] [phone] * MRSA SCREENING (01/23/2025 9:20 PM CDT) SPEC DESCRIPTION NASAL 01/23/2025 9:40 PM CDT [facility] SPECIAL REQUESTS NO SPECIAL REQUEST 01/23/2025 9:40 PM CDT [facility] CULTURE RESULT NO METHICILLIN RESISTANT STAPHYLOCOCCUS AUREUS ISOLATED 01/25/2025 6:38 AM CDT [facility] SPECIMEN FROM INTERNAL NOSE / Unknown 01/23/2025 9:20 PM CDT 01/23/2025 9:41 PM CDT Shahida Davila MD MICROBIOLOGY - GENERAL ORDER CHATO Final Result Performing Organization Address City/[facility]/ZIP Co de Phone Number [facility] [address] [place] [address], [place] [phone] * POCT glucose (01/23/2025 8:54 PM CDT) GLUCOSE POC 97 70 - 99 mg/dL 01/23/2025 9:12 PM CDT [facility] 01/23/2025 8:54 PM CDT Shahida Davila MD POCT ORDERABLES - DEVICE Fin al Result Performing Organization Address City/[facility]/ZIP Co de Phone Number [facility] [address] [place] [address], [place] [phone] * RESPIRATORY PCR PANEL 2 (01/23/2025 3:01 PM CDT) Pathologist [facility] ADENOVIRUS PCR (RESP) NOT DETECTED NOT DETECTED 01/23/2025 4:19 PM CDT [facility] CORONAVIRUS 229E PCR (RESP) NOT DETECTED NOT DETECTED 01/23/2025 4:19 PM CDT [facility] CORONAVIRUS HKU1 PCR (RESP) NOT DETECTED NOT DETECTED 01/23/2025 4:19 PM CDT [facility] CORONAVIRUS NL63 PCR (RESP) NOT DETECTED NOT DETECTED 01/23/2025 4:19 PM CDT [facility] CORONAVIRUS OC43 PCR (RESP) NOT DETECTED NOT DETECTED 01/23/2025 4:19 PM CDT [facility] METAPNEUMOVIRUS PCR (RESP) NOT DETECTED NOT DETECTED 01/23/2025 4:19 PM CDT [facility] RHINOVIRUS/ENTEROV IRUS PCR (RESP) NOT DETECTED NOT DETECTED 01/23/2025 4:19 PM CDT [facility] INFLUENZA A PCR (RESP) NOT DETECTED NOT DETECTED 01/23/2025 4:19 PM CDT [facility] INFLUENZA B PCR (RESP) NOT DETECTED NOT DETECTED 01/23/2025 4:19 PM CDT [facility] PARAINFLUENZA 1 PCR (RESP) NOT DETECTED NOT DETECTED 01/23/2025 4:19 PM CDT [facility] PARAINFLUENZA 2 PCR (RESP) NOT DETECTED NOT DETECTED 01/23/2025 4:19 PM CDT [facility] PARAINFLUENZA 3 PCR (RESP) NOT DETECTED NOT DETECTED 01/23/2025 4:19 PM CDT [facility] PARAINFLUENZA 4 PCR (RESP) NOT DETECTED NOT DETECTED 01/23/2025 4:19 PM CDT [facility] RSV PCR (RESP) NOT DETECTED NOT DETECTED 01/23/2025 4:19 PM CDT [facility] B PARAPERTUSIS PCR (RESP) NOT DETECTED NOT DETECTED 01/23/2025 4:19 PM CDT [facility] BORDETELLA PERTUSSIS PCR (RESP) NOT DETECTED NOT DETECTED 01/23/2025 4:19 PM CDT [facility] CHLAMYDOPHILA PNEUMONIAE PCR (RESP) NOT DETECTED NOT DETECTED 01/23/2025 4:19 PM CDT [facility] MYCOPLASMA PNEUMONIAE PCR (RESP) NOT DETECTED NOT DETECTED 01/23/2025 4:19 PM CDT [facility] CORONAVIRUS SARS COV 2 PCR (RESP) NOT DETECTED NOT DETECTED 01/23/2025 4:19 PM CDT [facility] NASOPHARYNGEAL SWAB / Unknown 01/23/2025 3:01 PM CDT us Shahida Davila MD MICROBIOLOGY - GENERAL ORDER CHATO Final Result [facility] [address] [place] [address], [place] [phone] * CT HEAD WO CON (01/23/2025 2:50 [...] 4:26 PM Narrative 01/23/2025 4:33 PM CDT [facility] [address] [place], [place] [address] Exam: CT head without contrast Exam Date/Time: [...] Procedure Note Henrry Luna MD - 01/23/2025 [facility] [address] [place], [place] [address] Exam: CT head without contrast Exam Date/Time: [...] PM Narrative 01/23/2025 4:40 PM [address] [address] Exam: CT CHEST WO CON Exam Date/Time: [...] Note Henrry Luna MD - 01/23/[address] [address] Exam: CT CHEST WO CON Exam Date/Time: [...] 2:18 PM Narrative 01/23/2025 2:19 PM CDT [place] [address] PATIENT NAME: MARIA DEL CARMEN GOLDMAN EXAM: Chest one view DATE OF EXAM: 01/23/2025 COMPARISON EXAM: 01/20/2025 INDICATION: Dyspnea TECHNIQUE: AP chest FINDINGS: Heart size within normal limits. Pulmonary vasculature unremarkable. Interval development of extensive new abnormal parenchymal opacity right mid and lower lung consistent with acute pneumonia. Left lung remains clear. No significant pleural effusion. Procedure Note Star Catalan MD - 01/23/2025 [place] [address] PATIENT NAME: MARIA DEL CARMEN GOLDMAN EXAM: [...] COMPREHENSIVE METABOLIC PANEL (01/22/2025 6:49 AM CDT) [facility] GLUCOSE 99 70 - 99 MG/DL 01/22/2025 8:20 AM CDT [facility] BUN 15 7 - 18 MG/DL 01/22/2025 8:20 AM CDT [facility] CREATININE S/P/B 0.43(L) 0.55 - 1.02 MG/DL 01/22/2025 8:20 AM CDT [facility] SODIUM S/P/B 147(H) 136 - 145 MMOL/L 01/22/2025 8:20 AM CDT [facility] POTASSIUM S/P/B 3.7 3.5 - 5.1 MMOL/L 01/22/2025 8:20 AM CDT [facility] CHLORIDE S/P/B 110 97 - 115 MMOL/L 01/22/2025 8:20 AM CDT [facility] CO2 33.2(H) 21 - 32 MMOL/L 01/22/2025 8:20 AM CDT [facility] CALCIUM S/P/B 9.0 8.5 - 10.1 MG/DL 01/22/2025 8:20 AM CDT [facility] BILIRUBIN TOTAL S/P/B 0.6 0.2 - 1.2 MG/DL 01/22/2025 8:20 AM CDT [facility] Comment: THIS ASSAY IS NOT RECOMMENDED FOR PATIENTS UNDERGOING TREATMENT WITH ELTROMBOPAG DUE TO THE POTENTIAL FOR FALSELY ELEVATED RESULTS. TOTAL PROTEIN S/P/B 7.8 6.4 - 8.2 G/DL 01/22/2025 8:20 AM CDT [facility] ALBUMIN S/P/B 2.3(L) 3.4 - 5.0 G/DL 01/22/2025 8:20 AM CDT [facility] AST 26 15 - 37 U/L 01/22/2025 8:20 AM CDT [facility] ALT 32 14 - 55 U/L 01/22/2025 8:20 AM CDT [facility] ALKALINE PHOSPHATASE S/P/B 92 50 - 136 U/L 01/22/2025 8:20 AM CDT [facility] ANION GAP 3.8 2 - 10 MMOL/L 01/22/2025 8:20 AM CDT [facility] BUN CREATININE RATIO 34.6(H) 6 - 26 01/22/2025 8:20 AM CDT [facility] A/G RATIO 0.4(L) 1.0 - 2.0 RATIO 01/22/2025 8:20 AM CDT [facility] GFR ESTIMATE >90 >90 ML/MIN/1.7 3 M2 01/22/2025 8:20 AM CDT [facility] Comment: NOTE: eGFR is not calculated for patients <18 years of age or gender unknown. This is an estimated GFR calculation using the new CKD EPI creatinine equation without race and so does not require a correction factor for race. This estimated GFR should not be used for calculating drug doses. 01/22/2025 6:49 AM CDT Shahida Davila MD LABORATORY Final Result [facility] [address] [place] [address], [place] [phone] * (ABNORMAL) CBC W/DIFF AUTOMATED (01/22/2025 6:49 AM CDT) WBC 11.23(H) 4.5 - 11.0 x10'3/uL 01/22/2025 7:26 AM CDT [facility] RBC 4.07(L) 4.20 - 5.40 x10'6/uL 01/22/2025 7:26 AM CDT [facility] HGB 11.5(L) 12.0 - 16.0 G/DL 01/22/2025 7:26 AM CDT [facility] HCT 37.5(L) 38.0 - 48.0 % 01/22/2025 7:26 AM CDT [facility] MCV 92.1 81.0 - 99.0 FL 01/22/2025 7:26 AM CDT [facility] MCH 28.3 27.0 - 31.0 PG 01/22/2025 7:26 AM CDT [facility] MCHC 30.7(L) 32.0 - 36.0 G/DL 01/22/2025 7:26 AM CDT [facility] RDW 13.7 11.5 - 14.5 % 01/22/2025 7:26 AM CDT [facility] PLT 225 130 - 400 x10'3/uL 01/22/2025 7:26 AM CDT [facility] MPV 10.7 9.3 - 12.2 FL 01/22/2025 7:26 AM CDT [facility] DIFFERENTIAL TYPE MANUAL DIFFERENTIAL 01/22/2025 7:51 AM CDT [facility] SEG NEUTROPHILS 94 % 7:51 AM CDT [facility] LYMPHOCYTES 2 % 01/22/2025 7:51 AM CDT [facility] MONOCYTES 2 % 01/22/2025 7:51 AM CDT [facility] MYELOCYTES 2 % 01/22/2025 7:51 AM CDT [facility] ABS. NEUTROPHILS 10.56(H) 1.80 - 7.70 x10'3/uL 01/22/2025 7:51 AM CDT [facility] ABS. LYMPHOCYTES 0.22(L) 1.00 - 4.80 x10'3/uL 01/22/2025 7:51 AM CDT [facility] ABS. MONOCYTES 0.22(L) 0.24 - 0.86 x10'3/uL 01/22/2025 7:51 AM CDT [facility] ABS. MYELOCYTES 0.22(H) 0.00 x10'3/uL 01/22/2025 7:51 AM CDT [facility] RBC MORPHOLOGY RBC MORPHOLOGY APPEARS NORMAL. SLIDE REVIEWED. 01/22/2025 7:51 AM CDT [facility] PLT EST. ADEQUATE 01/22/2025 7:51 AM CDT [facility] 01/22/2025 6:49 AM CDT Shahida Davila MD LABORATORY Final Result [facility] [address] [place] [id number], * (ABNORMAL) ARTERIAL BLOOD GAS (01/20/2025 2:45 PM FRUIT TESTER) PH ARTERIAL 7.39 7.35 - 7.45 01/20/2025 2:53 PM FRUIT TESTER [facility] PCO2 68.0(H) 35.0 - 45.0 MMHG 01/20/2025 2:53 PM FRUIT TESTER [facility] PO2 122.0(H) 83.0 - 108.0 MMHG 01/20/2025 2:53 PM FRUIT TESTER [facility] TOTAL CO2 ARTERIAL 43.3(H) 19.0 - 24.0 MMOL/L 01/20/2025 2:53 PM FRUIT TESTER [facility] BASE EXCESS 13.1(H) 0.0 - 3.0 MMOL/L 01/20/2025 2:53 PM FRUIT TESTER [facility] O2 SATURATION 99(H) 94.0 - 98.0 % 01/20/2025 2:53 PM FRUIT TESTER [facility] BICARB ARTERIAL 41.2(H) 21.0 - 28.0 MMOL/L 01/20/2025 2:53 PM FRUIT TESTER [facility] GEOVANNA TEST GEOVANNA TEST PERFORMED 01/20/2025 2:51 PM FRUIT TESTER [facility] O2 ADMIN ARTERIAL 21 01/20/2025 2:51 PM FRUIT TESTER [facility] DRAW SITE ARTERIAL RT RADIAL 01/20/2025 2:51 PM FRUIT TESTER [facility] 01/20/2025 2:45 PM FRUIT TESTER Moriah ORTIZ LABORATORY Final Result [facility] [address] [place] [address], [place] [phone] * CTA CHEST PE PROTOCOL (01/20/2025 2:19 PM FRUIT TESTER) Anatomical Region Laterality Modality Chest Computed Tomogra phy 01/20/2025 2:28 PM FRUIT TESTER Impressions 01/20/2025 2:32 PM FRUIT TESTER IMPRESSION: 1. No CT evidence of pulmonary thromboembolism. 2. Dependent secretions and/or mucous plugging in the left mainstem bronchus and left lower lobe bronchi. Patchy bibasilar opacities could be due to atelectasis or infection. 3. Please see above for additional chronic, incidental, and nonemergent findings elsewhere. Referred By: Interpreted By: Vincent Marcus MD, 01/20/2025 2:28 PM Narrative 01/20/2025 2:32 PM FRUIT TESTER [facility] [address] [place] [id number] EXAMINATION: CTA CHEST WITH CONTRAST, PULMONARY EMBOLISM [...] Procedure Note Vincent Marcus MD - 01/20/2025 [facility] [address] [place], [place] [address] EXAMINATION: CTA CHEST WITH CONTRAST, PULMONARY EMBOLISM [...] * CULTURE BACTERIA, BLOOD (01/20/2025 1:39 PM FRUIT TESTER) SPEC DESCRIPTION BLOOD 01/20/2025 12:48 PM FRUIT TESTER [facility] SPECIAL REQUESTS NO SPECIAL REQUEST 01/20/2025 12:48 PM FRUIT TESTER [facility] CULTURE RESULT NO GROWTH 5 DAYS 01/25/2025 3:04 PM CDT [facility] BLOOD SPECIMEN OBTAINED FOR BLOOD CULTURE / Unknown 01/20/2025 1:39 PM FRUIT TESTER 01/20/2025 1:53 PM FRUIT TESTER us Moriah ORTIZ MICROBIOLOGY - GENERAL ORDERA BLES Final Result [facility] [address] [place] [address], [place] [phone] * LACTIC ACID W REFLEX (SEPSIS) (01/20/2025 1:39 PM FRUIT TESTER) [facility] LACTIC ACID VENOUS 1.9 0.4 - 2.0 MMOL/L 01/20/2025 2:23 PM FRUIT TESTER [facility] 01/20/2025 1:39 PM FRUIT TESTER Moriah ORTIZ LABORATORY Final Result [facility] [address] [place] [address], * RESPIRATORY PCR PANEL 2 (01/20/2025 1:39 PM FRUIT TESTER) [facility] ADENOVIRUS PCR (RESP) NOT DETECTED NOT DETECTED 01/20/2025 2:49 PM FRUIT TESTER [facility] CORONAVIRUS 229E PCR (RESP) NOT DETECTED NOT DETECTED 01/20/2025 2:49 PM FRUIT TESTER [facility] CORONAVIRUS HKU1 PCR (RESP) NOT DETECTED NOT DETECTED 01/20/2025 2:49 PM FRUIT TESTER [facility] CORONAVIRUS NL63 PCR (RESP) NOT DETECTED NOT DETECTED 01/20/2025 2:49 PM FRUIT TESTER [facility] CORONAVIRUS OC43 PCR (RESP) NOT DETECTED NOT DETECTED 01/20/2025 2:49 PM FRUIT TESTER [facility] METAPNEUMOVIRUS PCR (RESP) NOT DETECTED NOT DETECTED 01/20/2025 2:49 PM FRUIT TESTER [facility] RHINOVIRUS/ENTEROV IRUS PCR (RESP) NOT DETECTED NOT DETECTED 01/20/2025 2:49 PM FRUIT TESTER [facility] INFLUENZA A PCR (RESP) NOT DETECTED NOT DETECTED 01/20/2025 2:49 PM FRUIT TESTER [facility] INFLUENZA B PCR (RESP) NOT DETECTED NOT DETECTED 01/20/2025 2:49 PM FRUIT TESTER [facility] PARAINFLUENZA 1 PCR (RESP) NOT DETECTED NOT DETECTED 01/20/2025 2:49 PM FRUIT TESTER [facility] PARAINFLUENZA 2 PCR (RESP) NOT DETECTED NOT DETECTED 01/20/2025 2:49 PM FRUIT TESTER [facility] PARAINFLUENZA 3 PCR (RESP) NOT DETECTED NOT DETECTED 01/20/2025 2:49 PM FRUIT TESTER [facility] PARAINFLUENZA 4 PCR (RESP) NOT DETECTED NOT DETECTED 01/20/2025 2:49 PM FRUIT TESTER [facility] RSV PCR (RESP) NOT DETECTED NOT DETECTED 01/20/2025 2:49 PM FRUIT TESTER [facility] B PARAPERTUSIS PCR (RESP) NOT DETECTED NOT DETECTED 01/20/2025 2:49 PM FRUIT TESTER [facility] BORDETELLA PERTUSSIS PCR (RESP) NOT DETECTED NOT DETECTED 01/20/2025 2:49 PM FRUIT TESTER [facility] CHLAMYDOPHILA PNEUMONIAE PCR (RESP) NOT DETECTED NOT DETECTED 01/20/2025 2:49 PM FRUIT TESTER [facility] MYCOPLASMA PNEUMONIAE PCR (RESP) NOT DETECTED NOT DETECTED 01/20/2025 2:49 PM FRUIT TESTER [facility] CORONAVIRUS SARS COV 2 PCR (RESP) NOT DETECTED NOT DETECTED 01/20/2025 2:49 PM FRUIT TESTER [facility] NASOPHARYNGEAL SWAB / Unknown 01/20/2025 1:39 PM FRUIT TESTER us Mroiah ORTIZ MICROBIOLOGY - GENERAL ORDERA BLES Final Result [facility] [address] [place], [place] [address] [phone] * CT HEAD WO CON (01/20/2025 12:25 PM FRUIT TESTER) Anatomical Region Laterality Modality Head Computed Tomogra phy 01/20/2025 12:2 8 PM FRUIT TESTER Impressions 01/20/2025 12:29 PM FRUIT TESTER IMPRESSION: No acute findings Ordered By: MORIAH LORENZO Interpreted By: Gerard Narayan MD, 01/20/2025 12:28 PM Narrative 01/20/2025 12:29 PM FRUIT TESTER [address] [address] [address] HEAD WITHOUT CONTRAST Exam date: 01/20/2025 [...] Note Gerard Narayan MD - 01/20/[address] [address] [address] HEAD WITHOUT CONTRAST Exam date: 01/20/2025 [...] * XR CHEST PA+LAT (01/20/2025 12:17 PM FRUIT TESTER) Anatomical Region Laterality Modality Chest Radiographic Yolis ging 01/20/2025 12:2 1 PM FRUIT TESTER Impressions 01/20/2025 12:22 PM FRUIT TESTER IMPRESSION: ======== 1. Minimal infiltrates or atelectasis at the right lung base Referred By: Interpreted By: Stephen Wall MD, 01/20/2025 12:21 PM Narrative 01/20/2025 12:22 PM FRUIT TESTER [facility] [address] [place], [place] [address] Examination: Chest x-ray 2 view Exam Date/Time: [...] Note Stephen Wall MD - 01/20/[address] [address] Examination: Chest x-ray 2 view Exam Date/Time: [...] * ECG 12 lead (01/20/2025 11:35 AM FRUIT TESTER) 01/20/2025 11:3 5 AM FRUIT TESTER Narrative [facility] RAD - 01/20/2025 12:[address] [facility] Test Date: 2025-01-20 Pat Name: MARIA DEL CARMEN GOLDMAN Department: 41 Room: [place] [address] Gender: Female Client Development Manager: : 1955 Requested By: MORIAH LORENZO Order Number: [id number] Reading TENZIN Dodson Measurements Intervals [place] Rate: 85 P: 17 [place]: 149 QRS: -26 QRSD: 91 T: 30 QT: 293 QTc: 349 Interpretive Statements SINUS RHYTHM VOLTAGE CRITERIA FOR LVH [MEETS CRITERIA IN ONE OF: R(aVL), S(V1), R(V5), R(V5/V6)+S(V1)] POSSIBLE SEPTAL MYOCARDIAL INFARCTION [30 ms Q WAVE IN V1/V2], OF INDETERMINATE AGE Compared to ECG 04/27/2024 12:57:46 Left-axis deviation no longer present Myocardial infarct finding still present T TESTER Procedure Note Chevy Dodson MD - 01/20/[address] [facility] [facility] [address] Test Date: 2025-01-20 Pat Name: MARIA DEL CARMEN GOLDMAN Department: 41 Room: [place] [address] Gender: Female Client Development Manager: : 1955 Requested By: MORIAH LORENZO Order Number: [id number] Reading TENZIN Dodson Measurements Intervals [place] Rate: 85 P: 17 [place]: 149 QRS: -26 QRSD: 91 T: 30 QT: 293 QTc: 349 Interpretive Statements SINUS RHYTHM VOLTAGE CRITERIA FOR LVH [MEETS CRITERIA IN ONE OF: R(aVL), S(V1),R(V5), R(V5/V6)+S(V1)] POSSIBLE SEPTAL MYOCARDIAL INFARCTION [30 ms Q WAVE IN V1/V2], OF INDETERMINATE AGE Compared to ECG 04/27/2024 12:57:46 Left-axis deviation no longer present Myocardial infarct finding still present T TESTER Moriah ORTIZ ECG ORDERABLES Final Result [facility] * MAGNESIUM (01/20/2025 11:06 AM FRUIT TESTER) MAGNESIUM 1.9 1.8 - 2.4 MG/DL 01/20/2025 12:11 PM FRUIT TESTER [facility] 01/20/2025 11:0 6 AM FRUIT TESTER Moriah ORTIZ LABORATORY Final Result Performing Organization Address [facility] Co de Phone Number [facility] [address] [place] [address], [place] [phone] * (ABNORMAL) PRO-BRAIN NATRIURETIC PEPTIDE (01/20/2025 11:06 AM FRUIT TESTER) PRO-B TYPE NATRIURETIC PEPTIDE 161(H) <125 PG/ML 01/20/2025 12:11 PM FRUIT TESTER [facility] Comment: CUT POINTS ESTABLISHED BY [...] FOR ACUTE CHF. 01/20/2025 11:0 6 AM FRUIT TESTER Moriah ORTIZ LABORATORY Final Result Performing Organization Address City/[facility]/ZIP Co de Phone Number [facility] [address] [place] [address], [place] [phone] * (ABNORMAL) D-DIMER, QUANTITATIVE (01/20/2025 11:06 AM FRUIT TESTER) D-DIMER 1,101(HH) 0 - 500 ng{FEU}/mL 01/20/2025 12:21 PM FRUIT TESTER [facility] Comment: D-Dimer values less than [...] called 01/20/2025 12:21 PM to EMERGENCY ROOM ([id number]/CA CARTY) by [id number]. Read Back: Yes 01/20/2025 11:0 6 AM FRUIT TESTER Moriah ORTIZ LABORATORY Final Result [facility] [address] [place] [address], * TROPONIN, QUANT (01/20/2025 11:06 AM FRUIT TESTER) Pathologist [facility] TROPONIN I HIGH SENSITIVITY 7 <54 ng/L 01/20/2025 12:11 PM FRUIT TESTER [facility] Comment: HIGH DOSES OF BIOTIN, TROPONIN-SPECIFIC AUTOANTIBODIES, AND ANTIBODY THERAPY CONTAINING HAMA MAY INTERFERE WITH THIS TEST RESULT. CORRELATION TO CLINICAL HISTORY AND PRESENTATION RECOMMENDED. 01/20/2025 11:0 6 AM FRUIT TESTER Moriah ORTIZ LABORATORY Final Result Performing Organization Address City/[facility]/ZIP Co de Phone Number [facility] [address] [place] [address], [place] [phone] * (ABNORMAL) COMPREHENSIVE METABOLIC PANEL (01/20/2025 11:06 AM [facility]) [facility] Signature GLUCOSE 111(H) 70 - 99 MG/DL 01/20/2025 12:11 PM [facility] BUN 6(L) 7 - 18 MG/DL 01/20/2025 12:11 PM [facility] CREATININE S/P/B 0.52(L) 0.55 - 1.02 MG/DL 01/20/2025 12:11 PM [facility] SODIUM S/P/B 139 136 - 145 MMOL/L 01/20/2025 12:11 PM [facility] POTASSIUM S/P/B 3.3(L) 3.5 - 5.1 MMOL/L 01/20/2025 12:11 PM [facility] CHLORIDE S/P/B 99 97 - 115 MMOL/L 01/20/2025 12:11 PM [facility] CO2 40.5(HH) 21 - 32 MMOL/L 01/20/2025 12:11 PM [facility] Comment: Critical Result(s) Called at: 12:10:51 on 01/20/2025 by: AIDE ROSE to and read back by: CA CARTY CALCIUM S/P/B 8.8 8.5 - 10.1 MG/DL 01/20/2025 12:11 PM [facility] BILIRUBIN TOTAL S/P/B 0.3 0.2 - 1.2 MG/DL 01/20/2025 12:11 PM [facility] Comment: THIS ASSAY IS NOT RECOMMENDED FOR PATIENTS UNDERGOING TREATMENT WITH ELTROMBOPAG DUE TO THE POTENTIAL FOR FALSELY ELEVATED RESULTS. TOTAL PROTEIN S/P/B 7.5 6.4 - 8.2 G/DL 01/20/2025 12:11 PM [facility] ALBUMIN S/P/B 2.6(L) 3.4 - 5.0 G/DL 01/20/2025 12:11 PM [facility] AST 16 15 - 37 U/L 01/20/2025 12:11 PM [facility] ALT 26 14 - 55 U/L 01/20/2025 12:11 PM [facility] ALKALINE PHOSPHATASE S/P/B 101 50 - 136 U/L 01/20/2025 12:11 PM [facility] ANION GAP NOT CALCULATED 2 - 10 MMOL/L 01/20/2025 12:11 PM [facility] BUN CREATININE RATIO 11.6 6 - 26 01/20/2025 12:11 PM [facility] A/G RATIO 0.5(L) 1.0 - 2.0 RATIO 01/20/2025 12:11 PM [facility] GFR ESTIMATE >90 >90 ML/MIN/1. 73 M2 01/20/2025 12:11 PM [facility] Comment: NOTE: eGFR is not calculated for patients <18 years of age or gender unknown. This is an estimated GFR calculation using the new CKD EPI creatinine equation without race and so does not require a correction factor for race. This estimated GFR should not be used for calculating drug doses. 01/20/2025 11:0 6 AM FRUIT TESTER us Moriah ORTIZ LABORATORY Final Result [facility] [address] [place] [address], [place] [phone] * (ABNORMAL) CBC W/DIFF AUTOMATED (01/20/2025 11:06 AM FRUIT TESTER) WBC 6.86 4.5 - 11.0 x10'3/uL 01/20/2025 12:37 PM [facility] RBC 4.35 4.20 - 5.40 x10'6/uL 01/20/2025 12:37 PM [facility] HGB 12.3 12.0 - 16.0 G/DL 01/20/2025 12:37 PM [facility] HCT 38.9 38.0 - 48.0 % 01/20/2025 12:37 PM [facility] MCV 89.4 81.0 - 99.0 FL 01/20/2025 12:37 PM [facility] MCH 28.3 27.0 - 31.0 PG 01/20/2025 12:37 PM [facility] MCHC 31.6(L) 32.0 - 36.0 G/DL 01/20/2025 12:37 PM [facility] RDW 13.2 11.5 - 14.5 % 01/20/2025 12:37 PM [facility] PLT 271 130 - 400 x10'3/uL 01/20/2025 12:37 PM [facility] MPV 10.2 9.3 - 12.2 FL 01/20/2025 12:37 PM [facility] DIFFERENTIAL TYPE AUTOMATED DIFFERENTIAL 01/20/2025 12:37 PM [facility] NEUTROPHILS % 72.0 % 01/20/2025 12:37 PM [facility] LYMPHOCYTES % 18.1 % 01/20/2025 12:37 PM [facility] MONOCYTES % 9.8 % 01/20/2025 12:37 PM [facility] EOSINOPHILS 0.0 % 01/20/2025 12:37 PM [facility] BASOPHILS 0.0 % 01/20/2025 12:37 PM FRUIT TESTER [facility] IMMATURE GRANS % 0.1 % 01/21/20 12:37 PM FRUIT TESTER [facility] ABS. NEUTROPHILS 4.94 1.80 - 7.70 x10'3/uL 01/20/2025 12:37 PM FRUIT TESTER [facility] ABS. LYMPHOCYTES 1.24 1.00 - 4.80 x10'3/uL 01/20/2025 12:37 PM FRUIT TESTER [facility] ABS. MONOCYTES 0.67 0.24 - 0.86 x10'3/uL 01/20/2025 12:37 PM FRUIT TESTER [facility] ABS. EOSINOPHILS 0.00(L) 0.04 - 0.36 x10'3/uL 01/20/2025 12:37 PM FRUIT TESTER [facility] ABS. BASOPHILS 0.00(L) 0.01 - 0.08 x10'3/uL 01/20/2025 12:37 PM FRUIT TESTER [facility] ABS. IMMATURE GRANULOCYTES 0.01 0.00 - 0.49 x10'3/uL 01/20/2025 12:37 PM [facility] 01/20/2025 11:0 6 AM FRUIT TESTER Moriah ORTIZ LABORATORY Final Result [facility] [address] [place] [address], documented in this encounter Visit Diagnoses Diagnosis [...] on Wed01/20/25 at 1300 01/20/2025 1:51 PM FRUIT TESTER 500 mg 250 mL/hr azithromycin (ZITHROMAX) 500 [...] On Wed01/20/25 at 1300 01/20/2025 1:51 PM FRUIT TESTER 1 g 1 00 mL/hr cefTRIAXone (ROCEPHIN) [...] 01/20/25 at 1419 Given 01/20/2025 2:19 PM FRUIT TESTER 84 mLs methylPREDNISolone sodium succinate (SOLU-Medrol) injection [...] Comment: TNA)0750 (Given - Provider: Concha Sharp, LAMP ASSEMBLER)1446 (Given - Provider: Marychuy Aceves, Resp Orchard Worker)2338 (Not Given - Provider: Jia Fagan RRT [...] Comment: TNA)0750 (Given - Provider: Concha Sharp, LAMP ASSEMBLER)1445 (Given - Provider: Marychuy Aceves, Resp Orchard Worker)2338 (Not Given - Provider: Jia Fagan RRT [...] Dacosta RN) 2119 (Given - Provider: Vika Dacotsa RN) heparin (porcine) injection 5,000 Units(Linked Group [...] Respiratory Rule-Out 01/20/2025 01/20/2025 025 2:49 PM FRUIT TESTER Respiratory Rule-Out 01/23/2025 01/23/2025 025 4:19 PM CDT documented as of this encounter Care Teams Body And Fender Mechanic Apprentice Relationship Specialty Start Date End Date Pratibha Corado, [facility]- [address] [facility], [address] [place] [address] PCP - General NURSE PRACTITIONER 02/25/24 documented as of this encounter
--- OUTSIDE RECORDS SUMMARY | 2025-01-31 16:02 | XMS_ITS | Encounter Summary ---
Author Organization [facility] Address Formerly [facility], [facility] [place] [address] Care Team Providers Care Superintendent Commissary Name Role Phone Osmany Amezcua MD Primary Care Provider [phone] Saba June NITROGEN OPERATOR-C Primary Care Provider Mike Braden DO Primary Care Provider Pratibha Corado FIELD MECHANICAL METER TESTER- Primary Care Provider + Encounter Details Date Type Department Care Team (Late st Contact Info) Description 06/13/2014 Abstract [facility] Clinics Conversion Md, Generic Conversion, Social History Tobacco Use Types Packs/Day Years Used Date Smoking Tobacco: Never Assessed Comments Unknown Sex and Gender Information Value Date Recorded Sex Assigned at Female 11/28/2024 8:47 AM HEADER DOCK Legal Sex Female 6:18 PM CDT Gender Identity Not on file Sexual Orientation Not on file documented as of this encounter Plan of Treatment Upcoming Encounters Date Type Department Care Team (Late st Contact Info) Description 05/29/2025 10:00 AM CDT Office Visit [facility] [address] [place] [phone] Pratibha Corado, [facility]- [address] [facility], [address] [place] [address] documented as of this encounter Visit Diagnoses Not on filedocumented in this encounter Additional Health Concerns Infection Onset Date Last Indicated Resolved Time COVID-19 Rule Out 12/31/2021 12/31/2021 12/31/2021 9:49 PM HEADER DOCK COVID-19 Rule Out 12/26/2022 12/26/2022 12/26/2022 9:18 PM HEADER DOCK COVID-19 Rule Out 04/27/2024 04/27/2024 04/27/2024 3:07 PM CDT Respiratory Rule-Out 01/20/2025 01/20/2025 025 2:49 PM HEADER DOCK Respiratory Rule-Out 01/23/2025 01/23/2025 025 4:19 PM CDT documented as of this encounter Care Teams Superintendent Commissary Relationship Specialty Start Date End Date Osmany Amezcua MD PCP - General 01/21/13 06/23/20 Saba June, NITROGEN OPERATOR-C PCP - General Nurse Practitioner Family 06/24/2012/17 Mike Braden DO PCP - General FAMILY PRACTICE 01/13/22 02/18/24 Pratibha Corado, FIELD MECHANICAL METER TESTER- [address] [facility], [address] [place] [address] PCP - General NURSE PRACTITIONER 02/25/24 documented as of this encounter
--- OUTSIDE RECORDS SUMMARY | 2025-01-31 16:02 | XMS_ITS | Encounter Summary ---
Author Organization [facility] Address [facility] [place] [address] Care Team Providers Care Gas Derrick Operator Name Role Phone Osmany Amezcua MD Primary Care Provider [phone] Saba June COVERAGE ANALYST-C Primary Care Provider Mike Braden DO Primary Care Provider Pratibha Corado SPRAY GUN REPAIRER HELPER- Primary Care Provider + Encounter Details Date Type Department Care Team (Late st Contact Info) Description 02/05/2014 Abstract [facility] Clinics Conversion Md, Generic Conversion, Social History Tobacco Use Types Packs/Day Years Used Date Smoking Tobacco: Never Assessed Comments Unknown Sex and Gender Information Value Date Recorded Sex Assigned at Female 11/28/2024 8:47 AM JANITORIAL SUPERVISOR Legal Sex Female 6:18 PM CDT Gender Identity Not on file Sexual Orientation Not on file documented as of this encounter Plan of Treatment Upcoming Encounters Date Type Department Care Team (Late st Contact Info) Description 05/29/2025 10:00 AM CDT Office Visit [facility] [address] [place] [phone] Pratibha Corado, [facility]- [address] [facility], [address] [place] [address] documented as of this encounter Visit Diagnoses Not on filedocumented in this encounter Additional Health Concerns Infection Onset Date Last Indicated Resolved Time COVID-19 Rule Out 12/31/2021 12/31/2021 12/31/2021 9:49 PM JANITORIAL SUPERVISOR COVID-19 Rule Out 12/26/2022 12/26/2022 12/26/2022 9:18 PM JANITORIAL SUPERVISOR COVID-19 Rule Out 04/27/2024 04/27/2024 04/27/2024 3:07 PM CDT Respiratory Rule-Out 01/20/2025 01/20/2025 025 2:49 PM JANITORIAL SUPERVISOR Respiratory Rule-Out 01/23/2025 01/23/2025 025 4:19 PM CDT documented as of this encounter Care Teams Gas Derrick Operator Relationship Specialty Start Date End Date Osmany Amezcua MD PCP - General 01/21/13 06/23/20 Saba June, COVERAGE ANALYST-C PCP - General Nurse Practitioner Family 06/24/2012/17 Mike Braden DO PCP - General FAMILY PRACTICE 01/13/22 02/18/24 Pratibha Corado, SPRAY GUN REPAIRER HELPER- [address] [facility], [address] [place] [address] PCP - General NURSE PRACTITIONER 02/25/24 documented as of this encounter
--- OUTSIDE RECORDS SUMMARY | 2025-01-31 16:02 | XMS_ITS | Encounter Summary ---
Author Organization [facility] Address [facility] [place] [address] Care Team Providers Care Anesthetic Assistant Name Role Phone Osmany Amezcua MD Primary Care Provider [phone] Saba June FINISHING AREA SUPERVISOR-C Primary Care Provider Mike Braden DO Primary Care Provider Pratibha Corado DISPATCH MANAGER- Primary Care Provider + Encounter Details Date Type Department Care Team (Late st Contact Info) Description 06/23/2013 Abstract [facility] Clinics Conversion Md, Generic Conversion, Social History Tobacco Use Types Packs/Day Years Used Date Smoking Tobacco: Never Assessed Comments Unknown Sex and Gender Information Value Date Recorded Sex Assigned at Female 11/28/2024 8:47 AM SECURITY THREAT ANALYST Legal Sex Female 6:18 PM CDT Gender Identity Not on file Sexual Orientation Not on file documented as of this encounter Plan of Treatment Upcoming Encounters Date Type Department Care Team (Late st Contact Info) Description 05/29/2025 10:00 AM CDT Office Visit [facility] [address] [place] [phone] Pratibha Corado, [facility]- [address] [facility], [address] [place] [address] documented as of this encounter Visit Diagnoses Not on filedocumented in this encounter Additional Health Concerns Infection Onset Date Last Indicated Resolved Time COVID-19 Rule Out 12/31/2021 12/31/2021 12/31/2021 9:49 PM SECURITY THREAT ANALYST COVID-19 Rule Out 12/26/2022 12/26/2022 12/26/2022 9:18 PM SECURITY THREAT ANALYST COVID-19 Rule Out 04/27/2024 04/27/2024 04/27/2024 3:07 PM CDT Respiratory Rule-Out 01/20/2025 01/20/2025 025 2:49 PM SECURITY THREAT ANALYST Respiratory Rule-Out 01/23/2025 01/23/2025 025 4:19 PM CDT documented as of this encounter Care Teams Anesthetic Assistant Relationship Specialty Start Date End Date Osmany Amezcua MD PCP - General 01/21/13 06/23/20 Saba June, FINISHING AREA SUPERVISOR-C PCP - General Nurse Practitioner Family 06/24/2012/17 Mike Braden DO PCP - General FAMILY PRACTICE 01/13/22 02/18/24 Pratibha Corado, DISPATCH MANAGER- [address] [facility], [address] [place] [address] PCP - General NURSE PRACTITIONER 02/25/24 documented as of this encounter
--- OUTSIDE RECORDS SUMMARY | 2025-01-31 16:02 | XMS_ITS | Encounter Summary ---
Author Organization [facility] Address [facility] [place] [address] Care Team Providers Care Elevator Serviceman Name Role Phone Osmany Amezcua MD Primary Care Provider [phone] Saba June ENTRY LEVEL RECRUITER-C Primary Care Provider Mike Braden DO Primary Care Provider Pratibha Corado MEAT SMOKER- Primary Care Provider + Encounter Details Date Type Department Care Team (Late st Contact Info) Description 04/11/2014 Abstract [facility] Clinics Conversion Md, Generic Conversion, Social History Tobacco Use Types Packs/Day Years Used Date Smoking Tobacco: Never Assessed Comments Unknown Sex and Gender Information Value Date Recorded Sex Assigned at Female 11/28/2024 8:47 AM 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 Legal Sex Female 6:18 PM CDT Gender Identity Not on file Sexual Orientation Not on file documented as of this encounter Plan of Treatment Upcoming Encounters Date Type Department Care Team (Late st Contact Info) Description 05/29/2025 10:00 AM CDT Office Visit [facility] [address] [place] [phone] Pratibha Corado, [facility]- [address] [facility], [address] [place] [address] documented as of this encounter Visit Diagnoses Not on filedocumented in this encounter Additional Health Concerns Infection Onset Date Last Indicated Resolved Time COVID-19 Rule Out 12/31/2021 12/31/2021 12/31/2021 9:49 PM 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 COVID-19 Rule Out 12/26/2022 12/26/2022 12/26/2022 9:18 PM 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 COVID-19 Rule Out 04/27/2024 04/27/2024 04/27/2024 3:07 PM CDT Respiratory Rule-Out 01/20/2025 01/20/2025 025 2:49 PM 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 Respiratory Rule-Out 01/23/2025 01/23/2025 025 4:19 PM CDT documented as of this encounter Care Teams Elevator Serviceman Relationship Specialty Start Date End Date Osmany Amezcua MD PCP - General 01/21/13 06/23/20 Saba June, ENTRY LEVEL RECRUITER-C PCP - General Nurse Practitioner Family 06/24/2012/17 Mike Braden DO PCP - General FAMILY PRACTICE 01/13/22 02/18/24 Pratibha Corado, MEAT SMOKER- [address] [facility], [address] [place] [address] PCP - General NURSE PRACTITIONER 02/25/24 documented as of this encounter
--- OUTSIDE RECORDS SUMMARY | 2025-01-31 16:02 | XMS_ITS | Encounter Summary ---
Author Organization [facility] Address [facility] [place] [address] Care Team Providers Care Heel Scorer Name Role Phone Osmany Amezcua MD Primary Care Provider [phone] Saba June POTATO PEELING MACHINE OPERATOR-C Primary Care Provider Mike Braden DO Primary Care Provider Pratibha Corado OFFICE NURSE PRACTITIONER- Primary Care Provider + Encounter Details Date Type Department Care Team (Late st Contact Info) Description 10/24/[address] [facility] Clinics Conversion Md, Generic Conversion, Social History Tobacco Use Types Packs/Day Years Used Date Smoking Tobacco: Never Assessed Comments Unknown Sex and Gender Information Value Date Recorded Sex Assigned at Female 11/28/2024 8:47 AM MICROELECTRONICS ASSEMBLER Legal Sex Female 6:18 PM CDT Gender Identity Not on file Sexual Orientation Not on file documented as of this encounter Plan of Treatment Upcoming Encounters Date Type Department Care Team (Late st Contact Info) Description 05/29/2025 10:00 AM CDT Office Visit [facility] [address] [place] [phone] Pratibha Corado, [facility]- [address] [facility], [address] [place] [address] documented as of this encounter Visit Diagnoses Not on filedocumented in this encounter Additional Health Concerns Infection Onset Date Last Indicated Resolved Time COVID-19 Rule Out 12/31/2021 12/31/2021 12/31/2021 9:49 PM MICROELECTRONICS ASSEMBLER COVID-19 Rule Out 12/26/2022 12/26/2022 12/26/2022 9:18 PM MICROELECTRONICS ASSEMBLER COVID-19 Rule Out 04/27/2024 04/27/2024 04/27/2024 3:07 PM CDT Respiratory Rule-Out 01/20/2025 01/20/2025 025 2:49 PM MICROELECTRONICS ASSEMBLER Respiratory Rule-Out 01/23/2025 01/23/2025 025 4:19 PM CDT documented as of this encounter Care Teams Heel Scorer Relationship Specialty Start Date End Date Osmany Amezcua MD PCP - General 01/21/13 06/23/20 Saba June, POTATO PEELING MACHINE OPERATOR-C PCP - General Nurse Practitioner Family 06/24/2012/17 Mike Braden DO PCP - General FAMILY PRACTICE 01/13/22 02/18/24 Pratibha Corado, OFFICE NURSE PRACTITIONER- [address] [facility], [address] [place] [address] PCP - General NURSE PRACTITIONER 02/25/24 documented as of this encounter
--- OUTSIDE RECORDS SUMMARY | 2025-01-31 16:02 | XMS_ITS | Encounter Summary ---
Author Organization [facility] Address [facility] [place] [address] Care Team Providers Care Insurance Billing Specialist Name Role Phone Osmany Amezcua MD Primary Care Provider [phone] Saba June [employer] Primary Care Provider Mike Braden DO Primary Care Provider Pratibha Corado PIGMENT SUPPLIER- Primary Care Provider + Encounter Details Date Type Department Care Team (Late st Contact Info) Description 02/28/2014 Abstract [facility] Conversion Md, Generic Conversion, Social History Tobacco Use Types Packs/Day Years Used Date Smoking Tobacco: Never Assessed Comments Unknown Sex and Gender Information Value Date Recorded Sex Assigned at Female 11/28/2024 8:47 AM PICKLE [employer]UTION [employer]ER Legal Sex Female 6:18 PM CDT Gender Identity Not on file Sexual Orientation Not on file documented as of this encounter Plan of Treatment Upcoming Encounters Date Type Department Care Team (Late st Contact Info) Description 05/29/2025 10:00 AM CDT Office Visit [facility] [address] [place] [id number] Pratibha Corado, [facility]- [address] [facility], [address] [place] [address] documented as of this encounter Visit Diagnoses Not on filedocumented in this encounter Additional Health Concerns Infection Onset Date Last Indicated Resolved Time COVID-19 Rule Out 12/31/2021 12/31/2021 12/31/2021 9:49 PM PICKLE [employer] COVID-19 Rule Out 12/26/2022 12/26/2022 12/26/2022 9:18 PM PICKLE SOLUTION [employer]ER COVID-19 Rule Out 04/27/2024 04/27/2024 04/27/2024 3:07 PM CDT Respiratory Rule-Out 01/20/2025 01/20/2025 025 2:49 PM PICKLE [employer]UTION [employer]ER Respiratory Rule-Out 01/23/2025 01/23/2025 025 4:19 PM CDT documented as of this encounter Care Teams Insurance Billing Specialist Relationship Specialty Start Date End Date Osmany Amezcua MD PCP - General 01/21/13 06/23/20 Saba June, [employer] PCP - General Nurse Practitioner Family 06/24/2012/17 Mike Braden DO PCP - General FAMILY PRACTICE 01/13/22 02/18/24 Pratibha Corado, PIGMENT SUPPLIER- [address] [facility], [address] [place] [id number] PCP - General NURSE PRACTITIONER 02/25/24 documented as of this encounter
--- OUTSIDE RECORDS SUMMARY | 2025-01-31 16:02 | XMS_ITS | Clinical Summary ---
Author Organization [facility] Address [address] [place] [address] Care Team Providers Care Day Camp Unit Leader Name Role Phone MickieAlison francolavern Harvey [facility] Primary Care Provider + Allergies Active Allergy Reactions Criticality Noted Date Comments Cefepime Rash Low 01/24/2025 Medications risperiDONE 0.5 MG tablet Take 1 tablet (0.5 mg total) by mouth nightly at bedtime. 04/25/20 12 Active risperiDONE 1 MG tablet Take 1 tablet (1 mg total) by mouth 2 (two) times daily. 04/11/20 15 Active neomycin-bacitra aof-xapieexva-zf amoxine 1 % Ointment ointment Apply topically [...] 06/27/2020 Essential hypertension 06/27/2020 Gastritis 06/27/2020 Schizophrenia ([facility]) 02/07/2019 Disorder of bone and cartilage 01/18/2015 Mild intellectual disabilities 12/21/2014 Allergic rhinitis 01/31/2014 Resolved Problems Problem Noted Date Diagnosed Date Resolved Date Abdominal pain 04/10/2014 07/28/2021 Encounters Date Type Department Care Team Description 01/26/2025 Travel 01/24/2025 Travel 01/20/2025 11:02 AM PORTABLE ROUTER OPERATOR - 01/31/2025 11:07 AM CDT Hospital Encounter [facility] [place] [address] Julissa Lorenzo PA Goldberg, Deborah, MD McHale, Sara A, MD Islam, Maaroof, MD Breathing Problem Discharge Disposition: [facility] Facility 01/20/2025 Travel 12/22/2024 Telephone [facility] [address] [place] [address] Pratibha Isaac PEDIATRIC NP-BC Therapy Plans (Prolia) 12/14/2024 Telephone [facility] [address] [place] [address] Pratibha Isaac PEDIATRIC NP-BC Therapy Plans (Prolia order) 12/13/2024 12:02 PM PORTABLE ROUTER OPERATOR - 12/13/2024 5:59 PM PORTABLE ROUTER OPERATOR Emergency [facility] [place] [address] Jorge Ricardo MD Choking Discharge Disposition: Home or Self Care (Routine Discharge) 12/13/2024 Travel 12/08/2024 Scan [facility] Scanned, [facility] 11/28/2024 8:40 AM PORTABLE ROUTER OPERATOR Office Visit [address] [phone] Pratibha Isaac PEDIATRIC NP-BC Follow Up 11/28/2024 Scan [facility] Scanned, [facility] 11/28/[address] [address] Pratibha Isaac, PEDIATRIC NP-BC Medication Problem 11/28/2024 Travel from Last 3 Months Immunizations Name Administration Dates Next Due Influenza (Generic) 10/17/2013,09/29/2012 Influenza Adult (Generic) 10/17/2013,09/29/2012 [facility] COVID-19 (12+) MRNA, LNP-S, PF, 100 MCG/ 0.5 ML DOSE 02/13/2022,01/08/2021,12/05/2020 [facility] COVID-19 ([employer]ER IRIS HODAN), MRNA, LNP-S, PF, 50 MCG/ [...] or pharmacy? Patient unable to respond 01/20/2025 [facility] Utilities Answer Date Recorded In the [...] answer 01/20/2025 How often do you attend [facility] or rastafarian services? Patient unable to answer 01/20/2025 Do you belong to any clubs o r organizations such as protestant groups, unions, fraternal or athletic groups, or [...] Recorded Patient Health Questionnaire-2 Score 0 11/28/2024 [facility] Occupat ional Health - Occupational Stress [...] any time in the past 12 [facility], were you homeless or living in a longterm (including now)? Patient unable to answer 01/20/2025 Comments No Sex and Gender Information Value Date Recorded Sex Assigned at Female 11/28/2024 8:47 AM PORTABLE ROUTER OPERATOR Legal Sex Female 6:18 PM CDT [...] Height 152.4 cm (5') 01/20/2025 11:08 AM PORTABLE ROUTER OPERATOR Body Mass Index 16.23 01/20/2025 11:08 AM PORTABLE ROUTER OPERATOR Plan of Treatment Upcoming Encounters Date Type Department Care Team (Late st Contact Info) Description 05/29/2025 10:00 AM CDT Office Visit [facility] [address] [place] [address] Pratibha Isaac, [facility] [address] [facility], [address] [place] [address] Health Maintenance Due Date Last [...] Dexa Scan (General) Completed 04/18/2024 PHQ-2 (Physician [place]) Completed 11/28/2024 Hepatitis C Completed 01/29/2025 Meningococcal [...] GAS, ARTERIAL LAB STAT 01/20/2025 2:45 PM PORTABLE ROUTER OPERATOR CTA CHEST PE PROTOCOL STAT 01/20/2025 2:19 PM PORTABLE ROUTER OPERATOR CULTURE, BACTERIA, BLOOD STAT 01/20/2025 1:39 PM PORTABLE ROUTER OPERATOR RESPIRATORY PCR PANEL 2 STAT 01/20/2025 1:39 PM PORTABLE ROUTER OPERATOR LACTIC ACID W REFLEX (SEPSIS) STAT 01/20/2025 1:39 PM PORTABLE ROUTER OPERATOR CT HEAD WO CON STAT 01/20/2025 12:25 PM PORTABLE ROUTER OPERATOR XR CHEST PA+LAT STAT 01/20/2025 12:17 PM PORTABLE ROUTER OPERATOR ECG 12-LEAD Routine 01/20/2025 11:35 AM PORTABLE ROUTER OPERATOR MAGNESIUM STAT 01/20/2025 11:06 AM PORTABLE ROUTER OPERATOR PRO-BRAIN NATRIURETIC PEPTIDE STAT 01/20/2025 11:06 AM PORTABLE ROUTER OPERATOR D-DIMER, QUANTITATIVE STAT 01/20/2025 11:06 AM PORTABLE ROUTER OPERATOR TROPONIN, QUANT STAT 01/20/2025 11:06 AM PORTABLE ROUTER OPERATOR COMPREHENSIVE METABOLIC PANEL STAT 01/20/2025 11:06 AM PORTABLE ROUTER OPERATOR CBC W/DIFF AUTOMATED STAT 01/20/2025 11:06 AM PORTABLE ROUTER OPERATOR CT CHEST WO CON STAT 12/13/2024 1:42 PM PORTABLE ROUTER OPERATOR COMPREHENSIVE METABOLIC PANEL STAT 12/13/2024 12:43 PM PORTABLE ROUTER OPERATOR CBC W/DIFF AUTOMATED STAT 12/13/2024 12:43 PM PORTABLE ROUTER OPERATOR XR CHEST PORTABLE STAT 12/13/2024 12: 38 PM PORTABLE ROUTER OPERATOR BONE DENSITY/DEXA Routine 04/18/2024 9:4 8 AM [...] - 0.49 NG/ML 01/31/2025 8:06 AM CDT [facility] 01/31/2025 6:19 AM CDT Christ Sherman MD LABORATORY Final Result [facility] [address] [place] [address], * (ABNORMAL) COMPREHENSIVE METABOLIC PANEL (01/31/2025 6:19 AM CDT) Only the most recent of7 resultswithin the time period is included. [facility] GLUCOSE 100(H) 70 - 99 MG/DL 01/31/2025 7:25 AM CDT [facility] BUN 7 7 - 18 MG/DL 01/31/2025 7:25 AM CDT [facility] CREATININE S/P/B 0.42(L) 0.55 - 1.02 MG/DL 01/31/2025 7:25 AM CDT [facility] SODIUM S/P/B 139 136 - 145 MMOL/L 01/31/2025 7:25 AM CDT [facility] POTASSIUM S/P/B 3.6 3.5 - 5.1 MMOL/L 01/31/2025 7:25 AM CDT [facility] CHLORIDE S/P/B 102 97 - 115 MMOL/L 01/31/2025 7:25 AM CDT [facility] CO2 35.0(H) 21 - 32 MMOL/L 01/31/2025 7:25 AM CDT [facility] CALCIUM S/P/B 9.6 8.5 - 10.1 MG/DL 01/31/2025 7:25 AM CDT [facility] BILIRUBIN TOTAL S/P/B 0.5 0.2 - 1.2 MG/DL 01/31/2025 7:25 AM CDT [facility] Comment: THIS ASSAY IS NOT RECOMMENDED FOR PATIENTS UNDERGOING TREATMENT WITH ELTROMBOPAG DUE TO THE POTENTIAL FOR FALSELY ELEVATED RESULTS. TOTAL PROTEIN S/P/B 8.0 6.4 - 8.2 G/DL 01/31/2025 7:25 AM CDT [facility] ALBUMIN S/P/B 2.3(L) 3.4 - 5.0 G/DL 01/31/2025 7:25 AM CDT [facility] AST 71(H) 15 - 37 U/L 01/31/2025 7:25 AM CDT [facility] ALT 164(H) 14 - 55 U/L 01/31/2025 7:25 AM CDT [facility] ALKALINE PHOSPHATASE S/P/B 140(H) 50 - 136 U/L 01/31/2025 7:25 AM CDT [facility] ANION GAP 2.0 2 - 10 MMOL/L 01/31/2025 7:25 AM T [facility] BUN CREATININE RATIO 16.7 6 - 26 01/31/2025 7:25 AM T [facility] A/G RATIO 0.4(L) 1.0 - 2.0 RATIO 01/31/2025 7:25 AM T [facility] GFR ESTIMATE >90 >90 ML/MIN/1.7 3 M2 01/31/2025 7:25 AM T [facility] Comment: NOTE: eGFR is not calculated for patients <18 years of age or gender unknown. This is an estimated GFR calculation using the new CKD EPI creatinine equation without race and so does not require a correction factor for race. This estimated GFR should not be used for calculating drug doses. 01/31/2025 6:19 AM CDT Christ Sherman MD LABORATORY Final Result [facility] [address] [place] [address], [place] [phone] * (ABNORMAL) C-REACTIVE PROTEIN (01/31/2025 6:19 AM CDT) Only the most recent of4 resultswithin the time period is included. C-REACTIVE PROTEIN 10.20(H) <0.29 mg/dL 01/31/2025 7:25 AM CDT [facility] 01/31/2025 6:19 AM CDT Christ Sherman MD LABORATORY Final Result [facility] [address] [place] [address], * (ABNORMAL) CBC W/DIFF AUTOMATED (01/31/2025 6:19 AM CDT) Only the most recent of12 resultswithin the time period is included. WBC 13.14(H) 4.5 - 11.0 x10'3/uL 01/31/2025 7:41 AM CDT [facility] RBC 4.20 4.20 - 5.40 x10'6/uL 01/31/2025 7:41 AM CDT [facility] HGB 12.1 12.0 - 16.0 G/DL 01/31/2025 7:41 AM CDT [facility] HCT 38.0 38.0 - 48.0 % 01/31/2025 7:41 AM CDT [facility] MCV 90.5 81.0 - 99.0 FL 01/31/2025 7:41 AM CDT [facility] MCH 28.8 27.0 - 31.0 PG 01/31/2025 7:41 AM CDT [facility] MCHC 31.8(L) 32.0 - 36.0 G/DL 01/31/2025 7:41 AM CDT [facility] RDW 14.3 11.5 - 14.5 % 01/31/2025 7:41 AM CDT [facility] PLT 155 130 - 400 x10'3/uL 01/31/2025 7:41 AM CDT [facility] MPV 11.8 9.3 - 12.2 FL 01/31/2025 7:41 AM CDT [facility] DIFFERENTIAL TYPE AUTOMATED DIFFERENTIAL 01/31/2025 7:42 AM CDT [facility] NEUTROPHILS % 86.6 % 01/31/2025 7:42 AM CDT [facility] LYMPHOCYTES % 6.8 % 01/31/2025 7:42 AM T [facility] MONOCYTES % 5.3 % 01/31/2025 7:42 AM T [facility] EOSINOPHILS 0.5 % 01/31/2025 7:42 AM CDT [facility] BASOPHILS 0.1 % 01/31/2025 7:42 AM CDT [facility] IMMATURE GRANS % 0.7 % 02/01/20 7:42 AM CDT [facility] ABS. NEUTROPHILS 11.39(H) 1.80 - 7.70 x10'3/uL 01/31/2025 7:42 AM CDT [facility] ABS. LYMPHOCYTES 0.89(L) 1.00 - 4.80 x10'3/uL 01/31/2025 7:42 AM CDT [facility] ABS. MONOCYTES 0.69 0.24 - 0.86 x10'3/uL 01/31/2025 7:42 AM CDT [facility] ABS. EOSINOPHILS 0.07 0.04 - 0.36 x10'3/uL 01/31/2025 7:42 AM CDT [facility] ABS. BASOPHILS 0.01 0.01 - 0.08 x10'3/uL 01/31/2025 7:42 AM CDT [facility] ABS. IMMATURE GRANULOCYTES 0.09 0.00 - 0.49 x10'3/uL 01/31/2025 7:42 AM CDT [facility] RBC MORPHOLOGY RBC MORPHOLOGY APPEARS NORMAL. SLIDE REVIEWED. 01/31/2025 7:42 AM CDT [facility] PLT EST. ADEQUATE 01/31/2025 7:42 AM CDT [facility] 01/31/2025 6:1 9 AM CDT Christ Sherman MD LABORATORY Final Result [facility] [address] [place] [address], [place] [phone] * XR CHEST PORTABLE (01/30/2025 12:28 PM CDT) Only the most recent of5 resultswithin the time period is included. Anatomical Region Laterality Modality Chest Radiographic Yolis ging 01/30/2025 12:3 9 PM CDT Impressions 01/30/2025 12:40 PM CDT =====IMPRESSION:===== Similar right basilar consolidation compatible with pneumonia. Ordered By: CHRIST SHERMAN Interpreted By: Yoel Caal MD, 01/30/2025 12:39 PM Narrative 01/30/2025 12:40 PM CDT [facility] [address] [place], [place] [address] Examination: Chest x-ray 1 view Exam date/time: [...] Procedure Note Yoel Caal MD - 01/30/[address] [address] Examination: Chest x-ray 1 view Exam date/time: [...] 9:36 AM Narrative 01/30/2025 9:38 AM CDT [address] [address] EXAMINATION: Limited abdomen ultrasound: RUQ EXAM DATE/TIME: [...] Procedure Note Yoel Caal MD - 01/30/[address] [address] EXAMINATION: Limited abdomen ultrasound: RUQ EXAM DATE/TIME: [...] VE NON-REACTI VE 01/29/2025 7:27 PM CDT [facility] HEP B CORE IGM NON-REACTI VE NON-REACTI VE 01/29/2025 7:27 PM CDT [facility] HAV IGM NON-REACTI VE NON-REACTI VE 01/29/2025 7:27 PM CDT [facility] HEPATITIS C AB NON-REACTI VE NON-REACTI VE 01/29/2025 7:27 PM CDT [facility] 01/29/2025 10:2 8 AM CDT Christ Sherman MD LABORATORY Final Result Performing Organization Address City/[facility]/ZIP Co de Phone Number [facility] [address] [place] [phone], * PHOSPHORUS, INORGANIC PHOSPHATE (01/29/2025 10:28 AM CDT) PHOSPHORUS 3.0 2.5 - 4.9 MG/DL 01/29/2025 11:02 AM CDT [facility] 01/29/2025 10:2 8 AM CDT Christ Sherman MD LABORATORY Final Result Performing Organization Address [facility] Co de Phone Number [facility] [address] [place] [phone], * MAGNESIUM (01/29/2025 10:28 AM CDT) Only the most recent of4 resultswithin the time period is included. MAGNESIUM 2.4 1.8 - 2.4 MG/DL 01/29/2025 11:02 AM CDT [facility] 01/29/2025 10:2 8 AM CDT Christ Sherman MD LABORATORY Final Result Performing Organization Address City/[facility]/ZIP Co de Phone Number [facility] [address] [place] [phone], * (ABNORMAL) BASIC METABOLIC PANEL (01/27/2025 5:59 AM CDT) Only the most recent of7 resultswithin the time period is included. GLUCOSE 107(H) 70 - 99 MG/DL 01/27/2025 7:06 AM [facility] BUN 8 7 - 18 MG/DL 01/27/2025 7:06 AM [facility] CREATININE S/P/B 0.45(L) 0.55 - 1.02 MG/DL 01/27/2025 7:06 AM [facility] SODIUM S/P/B 144 136 - 145 MMOL/L 01/27/2025 7:06 AM [facility] POTASSIUM S/P/B 2.9(LL) 3.5 - 5.1 MMOL/L 01/27/2025 7:06 AM [facility] Comment: Critical Result(s) Called at: 07:05:27 on 01/27/2025 by: KATEY VANN to and read back by: GINGER HOLGUIN CHLORIDE S/P/B 106 97 - 115 MMOL/L 01/27/2025 7:06 AM [facility] CO2 36.4(H) 21 - 32 MMOL/L 01/27/2025 7:06 AM [facility] CALCIUM S/P/B 8.9 8.5 - 10.1 MG/DL 01/27/2025 7:06 AM [facility] ANION GAP 1.6(L) 2 - 10 MMOL/L 01/27/2025 7:06 AM [facility] BUN CREATININE RATIO 17.9 6 - 26 01/27/2025 7:06 AM [facility] GFR ESTIMATE >90 >90 ML/MIN/1.7 3 M2 01/27/2025 7:06 AM [facility] Comment: NOTE: eGFR is not [...] MD LABORATORY Final Result Performing Organization Address City/[facility] Co de Phone Number [facility] [address] [place] [address], [place] [phone] * (ABNORMAL) POCT glucose (01/26/2025 4:08 PM CDT) Only the most recent of6 resultswithin the time period is included. GLUCOSE POC 133(H) 70 - 99 mg/dL 01/26/2025 4:50 PM CDT [facility] 01/26/2025 4:08 PM CDT Meron Sorto MD POCT ORDERABLES - DEVICE Final Result Performing Organization Address [facility] Co de Phone Number [facility] [address] [place] [address], [place] [phone] * XR SPEECH SWALLOW??KRISTINA ONLY (01/26/2025 10:13 AM CDT) Anatomical Region Laterality Modality NA Radiographic Yolis ging 01/26/2025 5:09 PM CDT Impressions 01/26/2025 5:13 PM CDT =====IMPRESSION:===== No aspiration. Please see speech pathology recommendations. Ordered By: BRANDY DAWSON Interpreted By: Jorge Arroyo MD, 01/26/2025 5:09 PM Narrative 01/26/2025 5:13 PM CDT [facility] [address] [place], [place] [address] Examination: Modified barium swallow Exam date/time: 01/26/2025 [...] Procedure Note Jorge Arroyo MD - 01/26/[address] [address] Examination: Modified barium swallow Exam date/time: 01/26/2025 [...] 7.35 - 7.45 01/25/2025 12:37 PM CDT [facility] PCO2 53.0(H) 35.0 - 45.0 MMHG 01/25/2025 12:37 PM CDT [facility] PO2 89.0 83.0 - 108.0 MMHG 01/25/2025 12:37 PM CDT [facility] TOTAL CO2 ARTERIAL 37.6(H) 19.0 - 24.0 MMOL/L 01/25/2025 12:37 PM CDT [facility] BASE EXCESS 9.9(H) 0.0 - 3.0 MMOL/L 01/25/2025 12:37 PM CDT [facility] O2 SATURATION 97 94.0 - 98.0 % 01/25/2025 12:37 PM CDT [facility] BICARB ARTERIAL 36.0(H) 21.0 - 28.0 MMOL/L 01/25/2025 12:37 PM CDT [facility] O2 ADMIN ARTERIAL 32% 01/25/2025 12:35 PM CDT [facility] DRAW SITE ARTERIAL RIGHT BRACHIAL 01/25/2025 12:35 PM CDT [facility] 01/25/2025 10:3 3 AM CDT us Brandy Dawson NP LABORATORY Fin al Result [facility] [address] [place] [address], [place] [phone] * MRSA SCREENING (01/24/2025 5:40 PM CDT) Only the most recent of2 resultswithin the time period is included. SPEC DESCRIPTION NASAL 01/24/2025 5:45 PM CDT [facility] SPECIAL REQUESTS NO SPECIAL REQUEST 01/24/2025 5:45 PM CDT [facility] CULTURE RESULT NO METHICILLIN RESISTANT STAPHYLOCOCCUS AUREUS ISOLATED 01/25/2025 12:24 PM CDT [facility] SPECIMEN FROM INTERNAL NOSE / Unknown 01/24/2025 5:40 PM CDT 01/24/2025 5:48 PM CDT Brandy Dawson NP MICROBIOLOGY - GENE RAL ORDERABLES Final Result [facility] [address] [place] [address], [place] [phone] * Vancomycin Random Level (01/24/2025 6:12 AM CDT) Pathologist [facility] VANCOMYCIN RANDOM 8.1 MCG/ML 01/24/2025 7:14 AM CDT [facility] Comment:NO THERAPEUTIC RANGE AVAILABLE LAST DOSE UNKNOWN LAST DOSE 01/24/2025 8:11 AM CDT [facility] 01/24/2025 6:12 AM CDT us Shahida Davila MD LABORATORY Final Result [facility] [address] [place] [address], [place] [phone] * (ABNORMAL) PRO-BRAIN NATRIURETIC PEPTIDE (01/23/2025 9:20 PM CDT) Only the most recent of2 resultswithin the time period is included. Pathologist [facility] PRO-B TYPE NATRIURETIC PEPTIDE 812(H) <125 PG/ML 01/23/2025 10:10 PM CDT [facility] Comment: CUT POINTS ESTABLISHED BY [...] Elvis Sosa DO LABORATORY Final Resu lt [facility] [address] [place] [id number], [place] [phone] * RESPIRATORY PCR PANEL 2 (01/23/2025 3:01 PM CDT) Only the most recent of2 resultswithin the time period is included. Pathologist [facility] ADENOVIRUS PCR (RESP) NOT DETECTED NOT DETECTED 01/23/2025 4:19 PM CDT [facility] CORONAVIRUS 229E PCR (RESP) NOT DETECTED NOT DETECTED 01/23/2025 4:19 PM CDT [facility] CORONAVIRUS HKU1 PCR (RESP) NOT DETECTED NOT DETECTED 01/23/2025 4:19 PM CDT [facility] CORONAVIRUS NL63 PCR (RESP) NOT DETECTED NOT DETECTED 01/23/2025 4:19 PM CDT [facility] CORONAVIRUS OC43 PCR (RESP) NOT DETECTED NOT DETECTED 01/23/2025 4:19 PM CDT [facility] METAPNEUMOVIRUS PCR (RESP) NOT DETECTED NOT DETECTED 01/23/2025 4:19 PM CDT [facility] RHINOVIRUS/ENTEROV IRUS PCR (RESP) NOT DETECTED NOT DETECTED 01/23/2025 4:19 PM CDT [facility] INFLUENZA A PCR (RESP) NOT DETECTED NOT DETECTED 01/23/2025 4:19 PM CDT [facility] INFLUENZA B PCR (RESP) NOT DETECTED NOT DETECTED 01/23/2025 4:19 PM CDT [facility] PARAINFLUENZA 1 PCR (RESP) NOT DETECTED NOT DETECTED 01/23/2025 4:19 PM CDT [facility] PARAINFLUENZA 2 PCR (RESP) NOT DETECTED NOT DETECTED 01/23/2025 4:19 PM CDT [facility] PARAINFLUENZA 3 PCR (RESP) NOT DETECTED NOT DETECTED 01/23/2025 4:19 PM CDT [facility] PARAINFLUENZA 4 PCR (RESP) NOT DETECTED NOT DETECTED 01/23/2025 4:19 PM CDT [facility] RSV PCR (RESP) NOT DETECTED NOT DETECTED 01/23/2025 4:19 PM CDT [facility] B PARAPERTUSIS PCR (RESP) NOT DETECTED NOT DETECTED 01/23/2025 4:19 PM CDT [facility] BORDETELLA PERTUSSIS PCR (RESP) NOT DETECTED NOT DETECTED 01/23/2025 4:19 PM CDT [facility] CHLAMYDOPHILA PNEUMONIAE PCR (RESP) NOT DETECTED NOT DETECTED 01/23/2025 4:19 PM CDT [facility] MYCOPLASMA PNEUMONIAE PCR (RESP) NOT DETECTED NOT DETECTED 01/23/2025 4:19 PM CDT [facility] CORONAVIRUS SARS COV 2 PCR (RESP) NOT DETECTED NOT DETECTED 01/23/2025 4:19 PM CDT [facility] NASOPHARYNGEAL SWAB / Unknown 01/23/2025 3:01 PM CDT Shahida Davila MD MICROBIOLOGY - GENERAL ORDER CHATO Final Result [facility] [address] [place] [address], * CT HEAD WO CON (01/23/2025 2:50 [...] 4:26 PM Narrative 01/23/2025 4:33 PM CDT [facility] [address] [place], [place] [address] Exam: CT head without contrast Exam Date/Time: [...] Procedure Note Henrry Luna MD - 01/23/[address] [address] Exam: CT head without contrast Exam Date/Time: [...] 4:36 PM Narrative 01/23/2025 4:40 PM CDT [facility] [address] [place], [place] [address] Exam: CT CHEST WO CON Exam Date/Time: [...] Procedure Note Henrry Luna MD - 01/23/[address] [address] Exam: CT CHEST WO [facility] Exam Date/Time: 01/23/2025 2:43 PM Indication: 69-year-old [...] CTA CHEST PE PROTOCOL (01/20/2025 2:19 PM PORTABLE ROUTER OPERATOR) Anatomical Region Laterality Modality Chest Computed Tomogra phy 01/20/2025 2:28 PM PORTABLE ROUTER OPERATOR Impressions 01/20/2025 2:32 PM PORTABLE ROUTER OPERATOR IMPRESSION: 1. No CT evidence of pulmonary thromboembolism. 2. Dependent secretions and/or mucous plugging in the left mainstem bronchus and left lower lobe bronchi. Patchy bibasilar opacities could be due to atelectasis or infection. 3. Please see above for additional chronic, incidental, and nonemergent findings elsewhere. Referred By: Interpreted By: Vincent Marcus MD, 01/20/2025 2:28 PM Narrative 01/20/2025 2:32 PM PORTABLE ROUTER OPERATOR [facility] [place] [address] EXAMINATION: CTA CHEST WITH CONTRAST, PULMONARY EMBOLISM [...] Procedure Note Vincent Marcus MD - 01/20/2025 [place] [address] EXAMINATION: CTA CHEST WITH CONTRAST, PULMONARY EMBOLISM [...] ACID W REFLEX (SEPSIS) (01/20/2025 1:39 PM PORTABLE ROUTER OPERATOR) [facility] LACTIC ACID VENOUS 1.9 0.4 - 2.0 MMOL/L 01/20/2025 2:23 PM PORTABLE ROUTER OPERATOR [facility] 01/20/2025 1:39 PM PORTABLE ROUTER OPERATOR [facility] Final Result [facility] [address] [place] [address], [place] [phone] * CULTURE BACTERIA, BLOOD (01/20/2025 1:39 PM PORTABLE ROUTER OPERATOR) Pathologist [facility] SPEC DESCRIPTION BLOOD 01/20/2025 12:48 PM PORTABLE ROUTER OPERATOR [facility] SPECIAL REQUESTS NO SPECIAL REQUEST 01/20/2025 12:48 PM PORTABLE ROUTER OPERATOR [facility] CULTURE RESULT NO GROWTH 5 DAYS 01/25/2025 3:04 PM CDT [facility] BLOOD SPECIMEN OBTAINED FOR BLOOD CULTURE / Unknown 01/20/2025 1:39 PM PORTABLE ROUTER OPERATOR 01/20/2025 1:53 PM PORTABLE ROUTER OPERATOR Julissa ORTIZ MICROBIOLOGY - GENERAL ORDERA BLES Final Result [facility] [address] [place] [address], * XR CHEST PA+LAT (01/20/2025 12:17 PM PORTABLE ROUTER OPERATOR) Anatomical Region Laterality Modality Chest Radiographic Yolis ging 01/20/2025 12:2 1 PM PORTABLE ROUTER OPERATOR Impressions 01/20/2025 12:22 PM PORTABLE ROUTER OPERATOR IMPRESSION: ======== 1. Minimal infiltrates or atelectasis at the right lung base Referred By: Interpreted By: Stephen Wall MD, 01/20/2025 12:21 PM Narrative 01/20/2025 12:22 PM PORTABLE ROUTER OPERATOR [facility] [address] [place], [place] [address] Examination: Chest x-ray 2 view Exam Date/Time: [...] Procedure Note Stephen Wall MD - 01/20/[address] [address] Examination: Chest x-ray 2 view Exam Date/Time: [...] * ECG 12 lead (01/20/2025 11:35 AM PORTABLE ROUTER OPERATOR) 01/20/2025 11:3 5 AM PORTABLE ROUTER OPERATOR Narrative [facility] ([place] RAD - 01/20/2025 12:29 PM PORTABLE ROUTER OPERATOR [address] Test Date: 2025-01-20 Pat Name: MARIA DEL CARMEN JONES Department: 41 Room: [id number] Gender: Female Clerk Telegraph Service: : 1955 Requested By: JULISSA LORENZO Order Number: [id number] Reading : Chevy Dodson Measurements Intervals [place] Rate: 85 P: 17 WA: 149 QRS: -26 QRSD: 91 T: 30 QT: 293 QTc: 349 Interpretive Statements SINUS RHYTHM VOLTAGE CRITERIA FOR LVH [MEETS CRITERIA IN ONE OF: R(aVL), S(V1), R(V5), R(V5/V6)+S(V1)] POSSIBLE SEPTAL MYOCARDIAL INFARCTION [30 ms Q WAVE IN V1/V2], OF INDETERMINATE AGE Compared to ECG 04/27/2024 12:57:46 Left-axis deviation no longer present Myocardial infarct finding still present ABLE ROUTER OPERATOR Procedure Note Chevy Dodson MD - 01/20/[address] Test Date: 2025-01-20 Pat Name: MARIA DEL CARMEN JONES Department: 41 Room: [id number] Gender: Female Clerk Telegraph Service: : 1955 Requested By: JUILSSA LORENZO Order Number: [id number] Reading : Chevy Dodson Measurements Intervals [place] Rate: 85 P: 17 WA: 149 QRS: -26 QRSD: 91 T: 30 QT: 293 QTc: 349 Interpretive Statements SINUS RHYTHM VOLTAGE CRITERIA FOR LVH [MEETS CRITERIA IN ONE OF: R(aVL), S(V1),R(V5), R(V5/V6)+S(V1)] POSSIBLE SEPTAL MYOCARDIAL INFARCTION [30 ms Q WAVE IN V1/V2], OF INDETERMINATE AGE Compared to ECG 04/27/2024 12:57:46 Left-axis deviation no longer present Myocardial infarct finding still present ABLE ROUTER OPERATOR us Julissa ORTIZ ECG ORDERABLES Final Result [facility] ([place] RAD * (ABNORMAL) D-DIMER, QUANTITATIVE (01/20/2025 11:06 AM PORTABLE ROUTER OPERATOR) D-DIMER 1,101(HH) 0 - 500 ng{FEU}/mL 01/20/2025 12:21 PM PORTABLE ROUTER OPERATOR [facility] Comment: D-Dimer values less than [...] called 01/20/2025 12:21 PM to EMERGENCY ROOM ([id number]/[place] CARTY) by [id number]. Read Back: Yes 01/20/2025 11:0 6 AM PORTABLE ROUTER OPERATOR Julissa ORTIZ LABORATORY Final Result [facility] [address] [place] [id number], [place] [phone] * TROPONIN, QUANT (01/20/2025 11:06 AM PORTABLE ROUTER OPERATOR) Pathologist [facility] TROPONIN I HIGH SENSITIVITY 7 <54 ng/L 01/20/2025 12:11 PM PORTABLE ROUTER OPERATOR [facility] Comment: HIGH DOSES OF BIOTIN, TROPONIN-SPECIFIC AUTOANTIBODIES, AND ANTIBODY THERAPY CONTAINING HAMA MAY INTERFERE WITH THIS TEST RESULT. CORRELATION TO CLINICAL HISTORY AND PRESENTATION RECOMMENDED. 01/20/2025 11:0 6 AM PORTABLE ROUTER OPERATOR Julissa ORTIZ LABORATORY Final Result Performing Organization Address City/[facility]/ZIP Co de Phone Number [facility] [address] [place] [id number] [phone] * BONE DENSITY/DEXA (04/18/2024 9:48 AM CDT) [...] bone mineral density test. [facility] is allowed once every 2 [...] MD, 04/19/2024 6:08 AM us Pratibha Isaac PEDIATRIC NP-BC DEXA Final Re sult * MG SCREENING [...] us Documents Scanned SCANNING Final Result [id number] from Last 3 Months or Most Recently [...] 5:46 PM 12/31/2021 3:53 PM Care Teams Day Camp Unit Leader Relationship Specialty Start Date End Date Pratibha Isaac, PEDIATRIC NP- [address] [facility], [address] [place] [address] PCP - General NURSE PRACTITIONER 02/25/24
--- OUTSIDE RECORDS SUMMARY | 2025-01-31 16:02 | XMS_ITS | Encounter Summary ---
Author Organization [facility] Address [facility] [place] [address] Care Team Providers Care Director Asset Name Role Phone Osmany Amezcua MD Primary Care Provider [phone] Saba June FRONT TENDER-C Primary Care Provider [phone] Mike Braden DO Primary Care Provider Pratibha Corado METAL MOLD DRESSER- Primary Care Provider + Encounter Details Date Type Department Care Team (Late st Contact Info) Description 08/30/2012 Abstract [facility] Conversion Md, Generic Conversion, Social History Tobacco Use Types Packs/Day Years Used Date Smoking Tobacco: Never Assessed Comments Unknown Sex and Gender Information Value Date Recorded Sex Assigned at Female 11/28/2024 8:47 AM CYTOGENETIC TECHNICIAN Legal Sex Female 6:18 PM CDT Gender Identity Not on file Sexual Orientation Not on file documented as of this encounter Plan of Treatment Upcoming Encounters Date Type Department Care Team (Late st Contact Info) Description 05/29/2025 10:00 AM CDT Office Visit [facility] [address] [place] [phone] Pratibha Corado, [facility]- [address] [facility], [address] [place] [address] documented as of this encounter Visit Diagnoses Not on filedocumented in this encounter Additional Health Concerns Infection Onset Date Last Indicated Resolved Time COVID-19 Rule Out 12/31/2021 12/31/2021 12/31/2021 9:49 PM CYTOGENETIC TECHNICIAN COVID-19 Rule Out 12/26/2022 12/26/2022 12/26/2022 9:18 PM CYTOGENETIC TECHNICIAN COVID-19 Rule Out 04/27/2024 04/27/2024 04/27/2024 3:07 PM CDT Respiratory Rule-Out 01/20/2025 01/20/2025 025 2:49 PM CYTOGENETIC TECHNICIAN Respiratory Rule-Out 01/23/2025 01/23/2025 025 4:19 PM CDT documented as of this encounter Care Teams Director Asset Relationship Specialty Start Date End Date Osmany Amezcua MD PCP - General 01/21/13 06/23/20 Saba June, FRONT TENDER-C PCP - General Nurse Practitioner Family 06/24/2012/17 Mike Braden DO PCP - General FAMILY PRACTICE 01/13/22 02/18/24 Pratibha Corado, METAL MOLD DRESSER- [address] [facility], [address] [place] [id number] PCP - General NURSE PRACTITIONER 02/25/24 documented as of this encounter
--- NOTE | 2025-01-31 16:15 | PC.NURSE ---
IO placed in the RLE by EMS 1340 20mg Etomidate administered IO 1340 100mg Succinylcholine administered IO 1340 7.5 Et tube placed by Dr. Shin, 22 @ the lip
[2025-01-31 16:30] LABS: CRP 8.3 mg/dL (<1.0)
[2025-01-31] MEDS: LACTATED RINGERS 1,000 ML 125 ML IV CONT (16:32)
[2025-01-31] MEDS: CEFEPIME 1 GM/NS 50 ML 1 GM/50 ML BAG IVPB (16:34)
[2025-01-31 16:48] LABS: Lactic Acid 0.9 mmol/L (0.7-2.0)
--- NOTE | 2025-01-31 16:54 | PM.IMHP ---
H&P: HPI History of Present Illness Date/Time: 01/31/25 16:54 Chief Complaint: AMS, Unresponsive Narrative: 69 y/o F presents here with altered mental status and unresponsiveness with PMH of cerebral palsy, nonverbal, osteoporosis, mild intellectual disabilities, dyslipidemia, vitamin-D deficiency and schizophrenia. The patient presents here via EMS from [facility] for further evaluation of altered mental status, periods of apnea, hypoxia, and unresponsiveness. HPI obtained through chart review due to patient condition. She was recently admitted to [facility] for bilateral pneumonia, hypernatremia, hypokalemia, transient mild transaminitis. She was admitted there from 01/20/25-01/31/25. Her initial CT there showed no PE, dependent secretions and mucus plugging the left mainstem bronchus/left lower lobe and bibasilar opacities. She was initially treated with cefepime and vancomycin. MRSA negative and vancomycin was discontinued. Repeat chest CT showed interval development of new airspace opacity which raise concerns for aspiration pneumonia. [facility] MBS performed on 01/26 which showed no evidence of aspiration despite coughing especially with swallowing. She was discharged from [facility] (01/31) back to her facility. She was there for approximately 1 hour when she became altered with agonal breathing. EMS was called and they arrived to the emergency department bagging the patient. The patient was shortly thereafter intubated due to no gag reflex and the patient was hypotensive. Initial VS at presentation: 99.4? F, HR 112, RR 24, 107/77, and 92% via manual bagging. Now 94% on mechanical ventilation. ED workup showed: WBC 11.0, hemoglobin 10.3, INR 1.1, creatinine 0.6 and GFR >60, AST 60, ALT 132, CRP 8.3, albumin 2.7. UA showed 1+ protein, otherwise unremarkable. MRSA negative. Viral PCR negative. CXR showed a right lower lobe pneumonia. Head CT showed no acute intracranial findings. CTA chest/abdomen/pelvis showed right middle/lower lobe pneumonia with dense consolidation, left basilar atelectasis, no PE, no aortic dissection, oral contrast opacifies the entirety of the colon, supportive lines good position, no acute pathology with remainder of the examination. Review of Systems Review of Systems: ROS unobtainable: Yes unobtainable due to mental status (Intubated, sedated) [facility] Past Medical History Medical History (Updated 01/31/25 @ 22:45 by Cristina Montero APRN) Vitamin D deficiency Osteoporosis Mild intellectual disabilities Gastritis HTN (hypertension) Dyslipidemia Schizophrenia Nonverbal Secondary to CP Cerebral palsy Social History Social History Alcohol intake: unknown Substance use: unknown Spiritual care concerns: No (ARNULFO) Meds Home Medications and Allergies Allergies Allergy/AdvReac Type Severity Reaction Status Date / Time cefepime Allergy Unknown Unknown Verified 01/31/25 21:24 Vital Signs Vital Signs - 24 hr 01/31/25 13:28 01/31/25 13:45 01/31/25 13:48 Temperature Pulse Rate 112 H 129 H 112 H Respiratory Rate 24 H Blood Pressure 107/77 Pulse Oximetry 92 100 Oxygen Delivery Mechanical Ventilation Fraction of Inspired Oxygen 100 01/31/25 13:49 01/31/25 14:00 01/31/25 14:30 Temperature Pulse Rate 119 H 112 H Respiratory Rate 22 H 21 H Blood Pressure 122/97 H Pulse Oximetry 100 94 Oxygen Delivery Mechanical Ventilation Fraction of Inspired Oxygen 40 01/31/25 14:30 01/31/25 14:32 01/31/25 15:00 Temperature Pulse Rate 114 H 111 H 106 H Respiratory Rate 20 22 H 21 H Blood Pressure 107/77 102/68 Pulse Oximetry 100 96 Oxygen Delivery Fraction of Inspired Oxygen 01/31/25 15:02 01/31/25 15:05 01/31/25 15:07 Temperature Pulse Rate 106 H 108 H 106 H Respiratory Rate 22 H 22 H Blood Pressure Pulse Oximetry 96 Oxygen Delivery Mechanical Ventilation Fraction of Inspired Oxygen 50 01/31/25 15:30 01/31/25 15:50 01/31/25 15:50 Temperature 99.4 F Pulse Rate 112 H 106 H 112 H Respiratory Rate 18 22 H Blood Pressure 107/72 Pulse Oximetry 99 100 Oxygen Delivery Mechanical Ventilation Fraction of Inspired Oxygen 40 01/31/25 15:50 01/31/25 15:59 01/31/25 16:00 Temperature 99.6 F 99.5 F Pulse Rate 112 H 106 H 107 H Respiratory Rate 22 H 21 H 20 Blood Pressure 102/66 Pulse Oximetry 99 100 Oxygen Delivery Fraction of Inspired Oxygen 03/19/25 16:00 01/31/25 16:01 01/31/25 16:05 Temperature 99.6 F 99.6 F 99.7 F H Pulse Rate 114 H 110 H 107 H Respiratory Rate 20 20 20 Blood Pressure 97/63 L 104/69 Pulse Oximetry 96 98 Oxygen Delivery Fraction of Inspired Oxygen 01/31/25 16:10 01/31/25 16:10 01/31/25 16:10 Temperature 99.7 F H Pulse Rate 105 H 107 H 105 H Respiratory Rate 22 H 22 H 20 Blood Pressure 93/67 L Pulse Oximetry 97 Oxygen Delivery Fraction of Inspired Oxygen 01/31/25 16:15 01/31/25 16:16 01/31/25 16:20 Temperature 99.7 F H 99.7 F H 99.8 F H Pulse Rate 104 H 105 H 105 H Respiratory Rate 21 H 21 H 20 Blood Pressure 103/64 93/70 L Pulse Oximetry 94 93 95 Oxygen Delivery Fraction of Inspired Oxygen 01/31/25 16:25 01/31/25 16:30 01/31/25 16:31 Temperature 99.8 F H 99.9 F H 99.9 F H Pulse Rate 110 H 110 H 109 H Respiratory Rate 18 20 21 H Blood Pressure 106/82 98/75 L Pulse Oximetry 97 92 Oxygen Delivery Fraction of Inspired Oxygen 01/31/25 16:35 Temperature 99.9 F H Pulse Rate 108 H Respiratory Rate 21 H Blood Pressure 110/80 Pulse Oximetry 95 Oxygen Delivery Fraction of Inspired Oxygen Exam Const: General: comfortable and no acute distress Other: , frail, intubated, no overt distress. HENMT: Face/Nose/Sinus: Normal nares present Mouth: Yes dry mucous membranes Eyes: General: appearance normal, both eyes and all related structures Sclera: sclerae normal Pupils: Equal, round and reactive pupils present Resp: Effort & Inspection: normal respiratory effort Auscultation: clear to auscultation bilaterally Other: Patient intubated, tolerating vent well. Cardio: Rate: tachycardic (Mild, 100-110.) Rhythm: regular rhythm GI: Other: Abdomen soft, nondistended nontender. Normoactive bowel sounds in all quadrants. Skin: General skin exam: normal color and no rashes or lesions noted Wounds: no wounds Neuro: Other: Sedated secondary to intubation. Extrem: Other: Lower extremities cool, DP pulses 1+ bilaterally and symmetric. No edema. Psych: Other: Unable to assess, currently intubated. H&P: Results Labs Labs: Short CBC 01/31/25 Range/Units 13:53 WBC 11.0 H (4.5-10.0) K/mm3 Hgb 10.3 L (12.0-15.0) g/dL Hct 33.7 L (37.0-47.0) % Plt Count 237 (150-375) k/mm3 BMP 01/31/25 01/31/25 15:11 15:31 Sodium 145 Potassium 3.7 Chloride 104 Carbon Dioxide 38 H BUN 16 Creatinine 0.56 L 0.60 L Glucose 113 H Calcium 8.5 Liver Function 01/31/25 Range/Units 15:11 Total Bilirubin 0.6 (0.2-1.3) mg/dL AST 60 H (14-36) U/L ALT 132 H (6-35) U/L Alkaline Phosphatase 120 (38-126) U/L Albumin 2.7 L (3.5-5.1) g/dL Urine 01/31/25 Range/Units 13:54 Urine Color Yellow (Yellow) Urine Appearance Clear (Clear) Urine pH 8.0 (5.0-9.0) Ur Specific [place] 1.013 (1.001-1.035) Urine Protein 1+ H (Negative) mg/dL Urine Glucose (UA) Negative (Negative) mg/dL Assessment and Plan Assessment and plan (1) Septic shock: Code(s): A41.9 - Sepsis, unspecified organism; R65.21 - Severe sepsis with septic shock Status: Acute Assessment and Plan: - meets SIRS criteria: HR, RR. + hypoxia, intermittently soft. - lactic acid: 2.7 -> 0.9 - lactic elevated, procalcitonin added - IV fluids: 125 mL/hour - suspected source: Pneumonia - started on Zosyn, azithromycin, vancomycin on 01/31. Allergy to cefepime, however per paperwork from most recent admission she was treated with cefepime. - blood cultures drawn on 01/31 follow - intubated in the ED, admission to the ICU with shot core drill operator helper consulted for close monitoring (2) Acute hypoxic respiratory failure: Code(s): J96.01 - Acute respiratory failure with hypoxia Status: Acute Assessment and Plan: - CXR: Right lower lobe pneumonia. - CTA chest/abd/pelvis: Right middle and lower lobe pneumonia with dense consolidation. Left basilar atelectasis. No pulmonary embolus. No aortic dissection. Oral contrast opacifies the entirety of the colon. Supportive lines in good position. No acute pathology within the remainder of the examination, as detailed above. - Initial ABG: CO2 49.6, O2 141, HC03 31.7, 98.8% on ventilator. - viral PCR pending Suspect acute hypoxic respiratory failure due to sepsis/pneumonia. No PE on imaging. Hemoglobin 10.3. (3) AMS (altered mental status): Qualifiers: Altered mental status type: unspecified Qualified Code(s): R41.82 - Altered mental status, unspecified Code(s): R41.82 - Altered mental status, unspecified Status: Acute Assessment and Plan: - head CT:No acute intracranial hemorrhage or suspicious mass effect. - check UA - complicated by patient has cerebral palsy, nonverbal at baseline - neurological checks Q 4 Suspect unresponsiveness secondary to septic shock and pneumonia. (4) Pneumonia: Qualifiers: Laterality: right Lung location: unspecified part of lung Pneumonia type: due to unspecified organism Qualified Code(s): J18.9 - Pneumonia, unspecified organism Code(s): J18.9 - Pneumonia, unspecified organism Status: Acute Assessment and Plan: - risk factors and complicating factors: Recent treatment for pneumonia, recent hospitalization - started on HAP tx: Zosyn, azithromycin, vancomycin. Allergy to cefepime. - MRSA negative on 01/31 - check sputum culture (if obtainable) - Viral PCR negative - currently requiring intubation. Titrate oxygen to maintain O2 sat greater than 92% Plan Diet: NPO GI Prophylaxis: Pantoprazole IV DVT Prophylaxis: Lovenox SQ Lines: peripheral, central line right IJ Code Status: Full code Quality VTE Prophylaxis VTE prophylaxis: pharmacologic ordered Critical Care Time: I personally spent 35 minutes of direct patient care including (but not limited to) the physical examination, decision-making, bedside evaluation, review of medical records, review of labs and imaging, discussion with nursing staff and other providers for collaborative, critical care management of this patient. Hospitalist MIPS Advance Care Plan I have confirmed that the patient's Advanced Care Plan is present, code status is documented, or surrogate decision maker is listed in patient medical record.: Yes Medication Reconciliation I have utilized all available resources to obtain, update and review the patients current medications (includes all prescriptions, OTC, herbals, cannabis, and nutritional supplements).: Yes
[2025-01-31] MEDS: VANCOMYCIN 1,000 MG/NS 250 ML 1,000 MG/250 ML BAG 250 MG IVPB (16:59)
[2025-01-31 17:06] LABS: Influenza A QL RT-PCR Negative (Negative); Influenza B QL RT-PCR Negative (Negative); RSV RNA, RT-PCR Negative (Negative); SARS-CoV-2 RNA PCR Negative (Negative)
--- NOTE | 2025-01-31 17:26 | PC.NURSE ---
1604 Gave update to NORM Serrano at [facility]
[2025-01-31 17:41] LABS: MRSA (PCR) NOT DETECTED (NOT DETECTE)
--- NOTE | 2025-01-31 19:01 | PC.NURSE ---
This patient, Maria Del Carmen Goldman, was admitted to Intensive Care Unit-1. Patient/family oriented to hospital policies and general routines including ID bracelet, bed and alarms, visiting hours, pain management, procedures, bathroom and other care routines, personal items, smoking policy, room service/diet, and visiting hours. Information on how to activate the Rapid Response Team has been discussed. Patient/Family are encouraged to report perceived risks to care and to ask questions if they do not understand what they are told or what they should do.
[2025-01-31] MEDS: AZITHROMYCIN 500 MG/NS 250 ML 500 MG/250 ML BAG 250 MG IVPB (20:34)
[2025-01-31 20:53] LABS: Glucose Point of Care 77 mg/dl (65-105)
[2025-01-31 21:49] LABS: MRSA (PCR) NOT DETECTED (NOT DETECTE)
[2025-01-31 21:51] LABS: Procalcitonin 0.2 ng/mL
[2025-01-31] MEDS: PIPERACILLIN/TAZ 4.5G/NS 100ML 4.5 GM/100 ML BAG IVPB (23:48)
[2025-01-31] MEDS: ALBUMIN HUMAN 25% 25 GM/100 ML 100 ML IVPB (23:48)
[2025-02-01] VITALS (47 sets, daily range): BP systolic 81–132; BP diastolic 47–79; PULSE 84–134; RESP 20; TEMP 35.4–37.3; O2SAT 97–100; BMI 16.7
[2025-02-01] MEDS: DEXTROSE 50% 25 GM/50 ML SYRINGE IV PUSH ×2 (00:05→05:50)
[2025-02-01 00:10] LABS: Glucose Point of Care 64 mg/dl (65-105)
[2025-02-01 00:53] LABS: Glucose Point of Care 156 mg/dl (65-105)
[2025-02-01] MEDS: LACTATED RINGERS 1,000 ML 999 ML IV CONT ×2 (01:04→07:56)
[2025-02-01] MEDS: LACTATED RINGERS 1,000 ML 125 ML IV CONT (03:00)
[2025-02-01 05:46] LABS: Glucose Point of Care 69 mg/dl (65-105)
[2025-02-01 05:48] LABS: Fractional Inspired Oxygen 40 %; Oxygen Content ABG 11.2 %vol (16.0-22.0); Oxygen Saturation ABG 94.4 % (95.0-100.0); Oxyhemoglobin 92.5 % THb (90.0-100.0); PCO2 ABG 38.2 mmHg (35.0-45.0); PO2 ABG 61.3 mmHg (80.0-100.0); PO2 FiO2 Ratio Arterial Blood 1.53 %; Total Hemoglobin 8.6 g/dL (12.0-18.0)
[2025-02-01] MEDS: ALBUMIN HUMAN 25% 25 GM/100 ML 100 ML IVPB ×4 (05:53→17:48)
[2025-02-01] MEDS: PIPERACILLIN/TAZ 4.5G/NS 100ML 4.5 GM/100 ML BAG IVPB ×3 (05:53→17:48)
[2025-02-01 05:54] LABS: Device VENTILATOR; Site Drawn RIGHT RADIAL; pH ABG 7.567 (7.350-7.450)
[2025-02-01 05:55] LABS: Arterial Blood Gas PEEP 5 cmH2O; Arterial Blood Gas Tidal Volume 350 ml; Arterial Blood Gas Vent Mode CMV; Arterial Blood Gas Ventilator rate 20 /MIN
[2025-02-01 06:25] LABS: Hematocrit 24.6 % (37.0-47.0); Hemoglobin 7.7 g/dL (12.0-15.0); Immature Granulocyte Absolute 0.06 K/mm3 (0.00-0.031); Immature Granulocyte Percent A 0.6 % (0-0.5); Lymphocytes Absolute Auto 1.41 K/mm3 (0.9-3.2); Lymphocytes Percent Auto 14.3 % (18.3-44.2); Mean Corpuscular HGB Conc 31.3 g/dl (32-36); Mean Corpuscular Hemoglobin 28.6 pg (26-34); Mean Corpuscular Volume 91.4 fl (80-100); Mean Platelet Volume 11.6 fl (7.4-10.4); Monocytes Absolute Auto 0.3 K/mm3 (0.1-0.6); Monocytes Percent Auto 3.2 % (2.6-8.5); Neutrophils Absolute Auto 8.1 K/mm3 (1.3-6.7); Neutrophils Percent Auto 81.9 % (45.5-73.1); Platelet Count Result 185 k/mm3 (150-375); Red Blood Count 2.69 M/mm3 (4.2-5.4); Red Cell Distribution Width 14.3 % (11.5-14.5); White Blood Count 9.9 K/mm3 (4.5-10.0)
[2025-02-01 06:48] LABS: Glucose Point of Care 128 mg/dl (65-105)
[2025-02-01 06:51] LABS: Alanine Aminotransferase 74 U/L (6-35); Albumin Level 2.4 g/dL (3.5-5.1); Alkaline Phosphatase 77 U/L (38-126); Anion Gap 4 mmol/L (4-12); Aspartate Amino Transferase 37 U/L (14-36); Bilirubin,Total 1.2 mg/dL (0.2-1.3); Blood Urea Nitrogen 10 mg/dL (7-17); Calcium 8.5 mg/dL (8.4-10.2); Carbon Dioxide 37 mmol/L (22-30); Chloride 105 mmol/L (98-107); Estimated CRCL calculation 48 ml/min; Estimated Glomerular Filt Rate > 60; Glucose 272 mg/dL (65-110); Magnesium 1.6 mg/dL (1.6-2.3); Potassium 2.3 mmol/L (3.4-5.0); Sodium 146 mmol/L (137-145)
[2025-02-01 07:41] LABS: Basophils Percent Auto 0.1 % (0.2-1.2); Hemoglobin 7.3 g/dL (12.0-15.0); Immature Granulocyte Absolute 0.06 K/mm3 (0.00-0.031); Immature Granulocyte Percent A 0.6 % (0-0.5); Lymphocytes Absolute Auto 1.18 K/mm3 (0.9-3.2); Lymphocytes Percent Auto 11.6 % (18.3-44.2); Mean Corpuscular HGB Conc 31.7 g/dl (32-36); Mean Corpuscular Volume 91.3 fl (80-100); Mean Platelet Volume 10.9 fl (7.4-10.4); Monocytes Absolute Auto 0.7 K/mm3 (0.1-0.6); Monocytes Percent Auto 7.1 % (2.6-8.5); Neutrophils Absolute Auto 8.2 K/mm3 (1.3-6.7); Neutrophils Percent Auto 80.6 % (45.5-73.1); Platelet Count Result 172 k/mm3 (150-375); Red Blood Count 2.52 M/mm3 (4.2-5.4); Red Cell Distribution Width 14.2 % (11.5-14.5); White Blood Count 10.2 K/mm3 (4.5-10.0)
[2025-02-01] MEDS: MAGNESIUM SULF 2 GM/WATER 50ML 2 GM/50 ML BAG IVPB (07:44)
[2025-02-01] MEDS: POTASSIUM CHLORIDE 20 MEQ PACKET (FOR LIQUID) 40 MEQ FEED TUBE (07:45)
[2025-02-01] MEDS: KCL 40 MEQ/WATER 100 ML 100 ML 25 ML IVPB (07:45)
--- NOTE | 2025-02-01 08:48 | P.CONIN_ITS ---
Assessment and Plan Assessment and plan (1) Acute hypoxic respiratory failure: Code(s): J96.01 - Acute respiratory failure with hypoxia Status: Acute Assessment and Plan: 01/31/2025: Patient presented from [facility] with hypoxia, periods of apnea, and unresponsiveness. She was brought to the ED being bagged, she did not have a gag and was unresponsive in the ED so was intubated upon arrival to the ED. central line was also inserted as she was hypotensive -chest x-ray showed right lower lobe pneumonia/consolidate -currently on CMV mode of ventilation, peep of 5, 40% FiO2 -ABGs and chest x-ray reviewed -will start bronchodilators and Mucomyst nebulizer -sedated with fentanyl and Versed infusion, maintain RASS of 0 to -2, daily SBT and SAT (2) AMS (altered mental status): Qualifiers: Altered mental status type: unspecified Qualified Code(s): R41.82 - Altered mental status, unspecified Code(s): R41.82 - Altered mental status, unspecified Status: Acute Assessment and Plan: Encephalopathy could be related to hypoxia, hypercapnia, pneumonia/infection/hypotension, could be related to medication -currently intubated, sedated -will wean sedation , to evaluate neurological status (3) Pneumonia: Qualifiers: Pneumonia type: due to unspecified organism Laterality: right Lung location: unspecified part of lung Qualified Code(s): J18.9 - Pneumonia, unspecified organism Code(s): J18.9 - Pneumonia, unspecified organism Status: Acute Assessment and Plan: Chest x-ray and CTA chest show right lower lobe consolidation -according the [facility] records: Repeat CT chest showed interval development of new airspace opacities raising concern for aspiration pneumonia. She was transition to Zosyn from cefepime. MBS performed on 01/26 at [facility] which showed no evidence of aspiration despite coughing especially with swallowing. -continue Zosyn, vancomycin and azithromycin (01/31) -MRSA screen is negative, -will discontinue vancomycin (02/01) (4) Sepsis: Code(s): A41.9 - Sepsis, unspecified organism Status: Acute Assessment and Plan: Patient presents altered mental status, hypoxia, apnea, pneumonia. -lactic acid was normal -blood pressures are borderline -will give additional IV fluid bolus -further intravascular volume expansion with albumin -continue to monitor urine output and renal function (5) Cerebral palsy: Code(s): G80.9 - Cerebral palsy, unspecified Status: Acute Assessment and Plan: Patient with cerebral palsy, mild intellectual disability, schizophrenia, nonverbal at baseline according the chart -patient on risperidone, will restart prior to extubation as she is currently sedated and intubated (6) Anemia: Code(s): D64.9 - Anemia, unspecified Status: Acute Assessment and Plan: Patient admitted with a hemoglobin of 10.3 on 01/31 -02/01: Hemoglobin dropped to 7.7, a repeat CBC was done which showed a hemoglobin of 7.3 -will check stools for occult blood, folic acid and vitamin B12 level -haptoglobin and LDH levels -Protonix IV q.12 hours -H&H q.6 hours Plan DVT prophylaxis: SCDs. Hold Lovenox due to significant drop in hemoglobin Stress ulcer prophylaxis: Protonix IV q.12 hours Nutrition: NPO for now Code Status: Full Critical Care Time Spent: 49 minutes Due to a high probability of clinically significant, life threatening deterioration, the patient required my highest level of preparedness to intervene emergently and I personally spent this critical care time directly and personally managing the patient. This critical care time included obtaining a history; examining the patient; pulse oximetry; ordering and review of studies; arranging urgent treatment with development of a management plan; evaluation of patient's response to treatment; frequent reassessment; and discussions with other providers. It was exclusive of separately billable procedures and treating other patients and teaching time. Please see Assessment and Plan section and the rest of the note for further information on patient assessment and treatment This dictation may have been done utilizing a voice recognition system. Attempts have been made to correct errors. However, there may be uncorrected grammatical, spelling, and recognitions errors present. 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 Off note patient was discharged from [facility] patient was admitted for bilateral pneumonia, hyponatremia, hypokalemia, transient mild transaminitis. She was admitted there from [id number]. When she reached [facility] she was barely there for an hour with the staff noted that she had become altered with agonal breathing and hypoxia and EMS was called. Upon arrival of the EMS patient was bagged to the ER at [facility], intubated due to no gag reflex, hypotension and unresponsiveness. Six According the records when patient was at [facility], CT scan of the chest did not show any PE, showed dependent secretions and mucus plugging the left mainstem bronchus/left lower lobe and basilar opacities. She was initially treated with cefepime and vancomycin, MRSA was negative and vancomycin was discontinued. Repeat CT chest showed interval development of new airspace opacities raise concern for aspiration pneumonia and patient was transition to Zosyn over there. MBS performed on 01/26 which showed no evidence of aspiration despite coughing especially with swallowing. She was discharged from [facility] on 01/31/2025 back to a facility. In the ED patient was found to be hypotensive, afebrile. WBC count of 11.0, hemoglobin 10.3, INR 1.1, creatinine 0.6, AST 60, ALT 132, CRP 8.3, albumin 2.7. UA showed 1+ protein otherwise unremarkable. MRSA screen was negative. Viral PCR for influenza, COVID and RSV was negative. Chest x-ray showed right lower lobe pneumonia. CT head showed no acute intracranial abnormalities. CTA chest abdomen and pelvis showed right middle lobe and lower lobe pneumonia with dense consolidation, left basilar atelectasis, no PE, no aortic dissection. Oral contrast opacifies the entirety of the colon. Supportive lines in good position. No acute pathology in the abdomen In the ER patient was started on azithromycin and cefepime and vancomycin. Cefepime was switched to Zosyn. Central line was inserted in the ER, patient was transferred to the ICU for further management. 02/01/2025: Patient seen and examined the ICU, remains intubated on CMV mode of ventilation, peep of 5, 40% FiO2. Sedated with fentanyl and Versed infusion, patient does not open her eyes or follow simple commands. Urine output has been good. Patient received 1 L IV fluid bolus in the ICU overnight. No IV fluid boluses were given in the ER. Patient's blood pressure borderline this morning with systolic in the 90s. Body temperature is a low. Patient dropped her hemoglobin to 7.7 this morning from 10.3 on admission. Repeat CBC showed hemoglobin of 7.3 Review of Systems 2 Review of Systems: ROS unobtainable: Yes unobtainable due to endotracheal tube, unobtainable due to medical condition and unobtainable due to mental status PMFSH Past Medical History Medical History (Updated 02/01/25 @ 09:14 by Natividad Walters MD) Vitamin D deficiency Osteoporosis Mild intellectual disabilities Gastritis HTN (hypertension) Dyslipidemia Schizophrenia Nonverbal Secondary to CP Cerebral palsy Family History Family History (Updated 01/31/25 @ 23:25 by Rosa Haywood RN) Other Unknown family medical history Social History Social History Smoking status: Unknown if ever smoked Alcohol intake: unknown Substance use: unknown Spiritual care concerns: No (ARNULFO) Meds Home Medications and Allergies Home Medications ?Medication ?Instructions ?Recorded ?Confirmed ?Type acetaminophen 500 mg tablet 1,000 mg PO Q6H PRN fever or pain 01/31/25 01/31/25 History bisacodyl 5 mg tablet,delayed 10 mg PO Q8H PRN constipation 01/31/25 01/31/25 History release cholecalciferol (vitamin D3) 50 50 mcg PO DAILY 01/31/25 01/31/25 History mcg (2,000 unit) capsule clomipramine 25 mg capsule 25 mg PO DAILY 01/31/25 01/31/25 History clomipramine 50 mg capsule 50 mg PO DAILY 01/31/25 01/31/25 History docusate sodium 100 mg capsule 100 mg PO Q12H 01/31/25 01/31/25 History fluticasone propionate 50 2 spray intranasal HS 01/31/25 02/01/25 History mcg/actuation nasal spray,suspension vit B complex 100 combo no.2 100 1 tablet PO DAILY 01/31/25 01/31/25 History mg tablet,extended release (B-100 Complex ER) ascorbic acid (vitamin C) 500 mg 500 mg PO Q12H 02/01/25 02/01/25 History tablet (Vitamin C) guaifenesin 100 mg/5 mL oral 200 mg PO Q4H PRN cough 02/01/25 02/01/25 History liquid (Chest Congestion Relief) loperamide 2 mg capsule 2 mg PO Q4H PRN loose stool 02/01/25 02/01/25 History magnesium hydroxide 400 mg/5 mL 30 ml PO QID PRN constipation 02/01/25 02/01/25 History oral suspension (Milk of Magnesia) magnesium oxide 250 mg PO DAILY 02/01/25 02/01/25 History metoprolol tartrate 25 mg tablet 25 mg PO BID 02/01/25 02/01/25 History omeprazole 20 mg capsule,delayed 20 mg PO DAILY 02/01/25 02/01/25 History release oxybutynin chloride 5 mg 5 mg PO HS 02/01/25 02/01/25 History tablet,extended release 24 hr potassium chloride 10 mEq 20 meq PO DAILY 02/01/25 02/01/25 History tablet,extended release risperidone 0.5 mg tablet 0.5 mg PO HS 02/01/25 02/01/25 History risperidone 1 mg tablet 1 mg PO Q12H 02/01/25 02/01/25 History Allergies Allergy/AdvReac Type Severity Reaction Status Date / Time cefepime Allergy Unknown Unknown Verified 01/31/25 21:24 Vital Signs Vital Signs - 24 hr 01/31/25 13:28 01/31/25 13:45 01/31/25 13:48 Temperature Pulse Rate 112 H 129 H 112 H Respiratory Rate 24 H Blood Pressure 107/77 Pulse Oximetry 92 100 Oxygen Delivery Mechanical Ventilation Fraction of Inspired Oxygen 100 01/31/25 13:49 01/31/25 14:00 01/31/25 14:30 Temperature Pulse Rate 119 H 112 H Respiratory Rate 22 H 21 H Blood Pressure 122/97 H Pulse Oximetry 100 94 Oxygen Delivery Mechanical Ventilation Fraction of Inspired Oxygen 40 01/31/25 14:30 01/31/25 14:32 01/31/25 15:00 Temperature Pulse Rate 114 H 111 H 106 H Respiratory Rate 20 22 H 21 H Blood Pressure 107/77 102/68 Pulse Oximetry 100 96 Oxygen Delivery Fraction of Inspired Oxygen 01/31/25 15:02 01/31/25 15:05 01/31/25 15:07 Temperature Pulse Rate 106 H 108 H 106 H Respiratory Rate 22 H 22 H Blood Pressure Pulse Oximetry 96 Oxygen Delivery Mechanical Ventilation Fraction of Inspired Oxygen 50 01/31/25 15:30 01/31/25 15:50 01/31/25 15:50 Temperature 99.4 F Pulse Rate 112 H 106 H 112 H Respiratory Rate 18 22 H Blood Pressure 107/72 Pulse Oximetry 99 100 Oxygen Delivery Mechanical Ventilation Fraction of Inspired Oxygen 40 01/31/25 15:50 01/31/25 15:59 01/31/25 16:00 Temperature 99.6 F 99.5 F Pulse Rate 112 H 106 H 107 H Respiratory Rate 22 H 21 H 20 Blood Pressure 102/66 Pulse Oximetry 99 100 Oxygen Delivery Fraction of Inspired Oxygen 01/31/25 16:00 01/31/25 16:01 01/31/25 16:05 Temperature 99.6 F 99.6 F 99.7 F H Pulse Rate 114 H 110 H 107 H Respiratory Rate 20 20 20 Blood Pressure 97/63 L 104/69 Pulse Oximetry 96 98 Oxygen Delivery Fraction of Inspired Oxygen 01/31/25 16:10 01/31/25 16:10 01/31/25 16:10 Temperature 99.7 F H Pulse Rate 105 H 107 H 105 H Respiratory Rate 22 H 22 H 20 Blood Pressure 93/67 L Pulse Oximetry 97 Oxygen Delivery Fraction of Inspired Oxygen 01/31/25 16:15 01/31/25 16:16 01/31/25 16:20 Temperature 99.7 F H 99.7 F H 99.8 F H Pulse Rate 104 H 105 H 105 H Respiratory Rate 21 H 21 H 20 Blood Pressure 103/64 93/70 L Pulse Oximetry 94 93 95 Oxygen Delivery Fraction of Inspired Oxygen 01/31/25 16:25 01/31/25 16:30 01/31/25 16:31 Temperature 99.8 F H 99.9 F H 99.9 F H Pulse Rate 110 H 110 H 109 H Respiratory Rate 18 20 21 H Blood Pressure 106/82 98/75 L Pulse Oximetry 97 92 Oxygen Delivery Fraction of Inspired Oxygen 01/31/25 16:35 01/31/25 16:36 01/31/25 16:40 Temperature 99.9 F H 99.9 F H 100.0 F H Pulse Rate 108 H 109 H 108 H Respiratory Rate 21 H 21 H 20 Blood Pressure 110/80 103/77 Pulse Oximetry 95 97 Oxygen Delivery Fraction of Inspired Oxygen 01/31/25 16:45 01/31/25 16:46 01/31/25 16:50 Temperature 100.1 F H 100.1 F H 100.2 F H Pulse Rate 107 H 109 H 110 H Respiratory Rate 20 20 20 Blood Pressure 113/69 105/73 Pulse Oximetry 97 96 97 Oxygen Delivery Fraction of Inspired Oxygen 01/31/25 16:55 01/31/25 17:00 01/31/25 17:00 Temperature 100.2 F H Pulse Rate 109 H 112 H 112 H Respiratory Rate 20 20 20 Blood Pressure 97/85 L Pulse Oximetry Oxygen Delivery Fraction of Inspired Oxygen 01/31/25 17:00 01/31/25 17:01 01/31/25 17:05 Temperature 100.3 F H 100.3 F H 100.4 F H Pulse Rate 110 H 108 H 106 H Respiratory Rate 20 20 20 Blood Pressure 108/97 H 104/68 Pulse Oximetry 93 97 Oxygen Delivery Fraction of Inspired Oxygen 01/31/25 17:10 01/31/25 17:15 01/31/25 17:16 Temperature 100.4 F H 100.4 F H 100.4 F H Pulse Rate 106 H 109 H 104 H Respiratory Rate 20 20 21 H Blood Pressure 109/67 107/70 Pulse Oximetry 99 97 Oxygen Delivery Fraction of Inspired Oxygen 01/31/25 17:20 01/31/25 17:26 01/31/25 17:30 Temperature 100.4 F H 100.4 F H 100.4 F H Pulse Rate 103 H 109 H 100 Respiratory Rate 20 20 20 Blood Pressure 106/76 104/76 102/69 Pulse Oximetry 95 96 97 Oxygen Delivery Fraction of Inspired Oxygen 01/31/25 17:31 01/31/25 17:35 01/31/25 17:45 Temperature 100.5 F H 100.4 F H 100.4 F H Pulse Rate 103 H 106 H 106 H Respiratory Rate 21 H 21 H 20 Blood Pressure 97/70 L 95/81 L Pulse Oximetry 93 95 97 Oxygen Delivery Fraction of Inspired Oxygen 01/31/25 17:46 01/31/25 17:50 01/31/25 17:55 Temperature 100.4 F H 100.4 F H 100.5 F H Pulse Rate 100 102 H 107 H Respiratory Rate 20 20 21 H Blood Pressure 109/53 L 107/77 Pulse Oximetry 95 95 96 Oxygen Delivery Fraction of Inspired Oxygen 01/31/25 18:00 01/31/25 18:01 01/31/25 18:05 Temperature 100.5 F H 100.5 F H 100.5 F H Pulse Rate 103 H 104 H 103 H Respiratory Rate 20 20 20 Blood Pressure 102/71 110/68 Pulse Oximetry 98 95 96 Oxygen Delivery Fraction of Inspired Oxygen 01/31/25 18:10 01/31/25 18:11 01/31/25 18:15 Temperature 100.6 F H 100.6 F H 100.6 F H Pulse Rate 109 H 109 H 110 H Respiratory Rate 20 20 20 Blood Pressure 112/94 H 100/77 Pulse Oximetry 94 95 90 Oxygen Delivery Fraction of Inspired Oxygen 01/31/25 18:16 01/31/25 20:00 01/31/25 20:00 Temperature 100.7 F H Pulse Rate 110 H 106 H 106 H Respiratory Rate 20 20 20 Blood Pressure Pulse Oximetry 94 Oxygen Delivery Fraction of Inspired Oxygen 01/31/25 20:00 01/31/25 20:00 01/31/25 20:02 Temperature 100.6 F H Pulse Rate 104 H 106 H 103 H Respiratory Rate 20 20 Blood Pressure 100/65 Pulse Oximetry 96 96 Oxygen Delivery Mechanical Ventilation Fraction of Inspired Oxygen 40 01/31/25 20:18 01/31/25 22:00 01/31/25 22:00 Temperature Pulse Rate 107 H 106 H 106 H Respiratory Rate 20 20 Blood Pressure Pulse Oximetry 99 Oxygen Delivery Mechanical Ventilation Fraction of Inspired Oxygen 40 01/31/25 22:00 01/31/25 22:00 01/31/25 23:00 Temperature Pulse Rate 106 H 106 H 103 H Respiratory Rate 20 20 Blood Pressure 94/63 L Pulse Oximetry 96 Oxygen Delivery Fraction of Inspired Oxygen 01/31/25 23:00 02/01/25 00:00 02/01/25 00:00 Temperature 98.5 F Pulse Rate 94 104 H 102 H Respiratory Rate 20 20 Blood Pressure 100/65 Pulse Oximetry 98 97 97 Oxygen Delivery Mechanical Ventilation Mechanical Ventilation Fraction of Inspired Oxygen 40 40 02/01/25 00:00 02/01/25 00:00 02/01/25 00:00 Temperature Pulse Rate 104 H 104 H 104 H Respiratory Rate 20 20 Blood Pressure Pulse Oximetry Oxygen Delivery Fraction of Inspired Oxygen 02/01/25 00:46 02/01/25 02:00 02/01/25 02:00 Temperature 97.0 F L Pulse Rate 87 87 Respiratory Rate 20 Blood Pressure 81/47 L 92/60 L Pulse Oximetry 100 Oxygen Delivery Fraction of Inspired Oxygen 02/01/25 02:00 02/01/25 02:00 02/01/25 02:23 Temperature Pulse Rate 87 87 88 Respiratory Rate 20 20 Blood Pressure Pulse Oximetry 100 Oxygen Delivery Mechanical Ventilation Fraction of Inspired Oxygen 40 02/01/25 03:00 02/01/25 03:00 02/01/25 04:00 Temperature Pulse Rate 88 88 89 Respiratory Rate 20 20 20 Blood Pressure Pulse Oximetry 100 Oxygen Delivery Mechanical Ventilation Fraction of Inspired Oxygen 40 02/01/25 04:00 02/01/25 04:00 02/01/25 04:00 Temperature 96.8 F L Pulse Rate 89 89 Respiratory Rate 20 Blood Pressure 101/65 Pulse Oximetry 100 Oxygen Delivery Fraction of Inspired Oxygen 40 02/01/25 04:00 02/01/25 04:00 02/01/25 05:00 Temperature Pulse Rate 89 89 95 Respiratory Rate 20 20 Blood Pressure Pulse Oximetry 100 Oxygen Delivery Mechanical Ventilation Fraction of Inspired Oxygen 40 02/01/25 06:00 02/01/25 06:00 02/01/25 06:00 Temperature Pulse Rate 93 93 93 Respiratory Rate 20 20 Blood Pressure Pulse Oximetry Oxygen Delivery Fraction of Inspired Oxygen 02/01/25 06:00 02/01/25 07:25 02/01/25 07:25 Temperature 97.3 F L Pulse Rate 93 85 85 Respiratory Rate 20 20 20 Blood Pressure 105/67 Pulse Oximetry 100 Oxygen Delivery Fraction of Inspired Oxygen 02/01/25 08:06 02/01/25 08:24 02/01/25 08:38 Temperature Pulse Rate 90 84 85 Respiratory Rate 20 Blood Pressure Pulse Oximetry 100 100 Oxygen Delivery Mechanical Ventilation Mechanical Ventilation Fraction of Inspired Oxygen 40 40 02/01/25 08:38 Temperature Pulse Rate 85 Respiratory Rate 20 Blood Pressure Pulse Oximetry Oxygen Delivery Fraction of Inspired Oxygen Exam 2 Narrative: General: Petite female/malnourished, in no acute distress HEENT:? Pupils are pinpoint, sluggish, ETT in place Neck:? Supple Respiratory:? Coarse breath sounds bilaterally, rales on right base, no wheezing, adequate air entry otherwise Cardiac:? S1-S2 normal, regular rate and rhythm Abdomen:? Soft, nontender, nondistended, hypoactive bowel sounds Extremities:? Trace edema, bilateral pedal pulses are palpable Neuro:? Intubated, sedated, does not open her eyes or follow simple commands Skin:? No skin lesions noted Psych:? Unable to assess at this time Results Labs 02/01/25 07:37 02/01/25 06:07 Labs: Short CBC 01/31/25 02/01/25 02/01/25 Range/Units 13:53 06:07 07:37 WBC 11.0 H 9.9 10.2 H (4.5-10.0) K/mm3 Hgb 10.3 L 7.7 L 7.3 L (12.0-15.0) g/dL Hct 33.7 L 24.6 L 23.0 L (37.0-47.0) % Plt Count 237 185 172 (150-375) k/mm3 BMP 01/31/25 01/31/25 02/01/25 15:11 15:31 06:07 Sodium 145 146 H Potassium 3.7 2.3 L* Chloride 104 105 Carbon Dioxide 38 H 37 H BUN 16 10 D Creatinine 0.56 L 0.60 L 0.56 L Glucose 113 H 272 H Calcium 8.5 8.5 Liver Function 01/31/25 02/01/25 Range/Units 15:11 06:07 Total Bilirubin 0.6 1.2 (0.2-1.3) mg/dL AST 60 H 37 H (14-36) U/L ALT 132 H 74 H (6-35) U/L Alkaline Phosphatase 120 77 (38-126) U/L Albumin 2.7 L 2.4 L (3.5-5.1) g/dL Urine 01/31/25 Range/Units 13:54 Urine Color Yellow (Yellow) Urine Appearance Clear (Clear) Urine pH 8.0 (5.0-9.0) Ur Specific [place] 1.013 (1.001-1.035) Urine Protein 1+ H (Negative) mg/dL Urine Glucose (UA) Negative (Negative) mg/dL Quality VTE Prophylaxis VTE prophylaxis: mechanical ordered Hospitalist MIPS Advance Care Plan I have confirmed that the patient's Advanced Care Plan is present, code status is documented, or surrogate decision maker is listed in patient medical record.: Yes Medication Reconciliation I have utilized all available resources to obtain, update and review the patients current medications (includes all prescriptions, OTC, herbals, cannabis, and nutritional supplements).: Yes
[2025-02-01] MEDS: LACTATED RINGERS 1,000 ML 75 ML IV CONT (09:06)
[2025-02-01] MEDS: PANTOPRAZOLE SODIUM IV 40 MG VIAL IV PUSH ×2 (09:06→20:21)
[2025-02-01] MEDS: ACETYLCYSTEINE 20% INHAL SOLN 800 MG/4 ML VIAL 200 MG INHALATION ×3 (09:33→19:45)
[2025-02-01] MEDS: IPRATROPIUM 0.5 MG/ALBUTEROL SULFATE 2.5 MG AMPUL.NEB 3 ML INHALATION ×3 (09:33→19:44)
[2025-02-01 10:01] LABS: Iron 26 ug/dL (37-170)
[2025-02-01 10:10] LABS: Percent Iron Saturation 21 % (20-50)
[2025-02-01] MEDS: polyethylene glycoL 3350 17 GM POWD.PACK PO (10:14)
[2025-02-01] MEDS: DOCUSATE SODIUM LIQ 100 MG/10 ML UDC PO ×2 (10:15→20:21)
[2025-02-01 10:49] LABS: Folic Acid 11.3 ng/mL (2.76->20)
[2025-02-01] MEDS: NOREPINEPHRINE 8 MG/D5W 250 ML 8 MG/250 ML BAG 9.38 MG IV CONT (11:23)
[2025-02-01 11:31] LABS: Glucose Point of Care 74 mg/dl (65-105)
[2025-02-01 13:24] LABS: Lactate Dehydrogenase 140 U/L (120-246)
[2025-02-01 14:52] LABS: Hematocrit 22.6 % (37.0-47.0); Hemoglobin 7.3 g/dL (12.0-15.0); Mean Corpuscular HGB Conc 32.3 g/dl (32-36); Mean Corpuscular Hemoglobin 29.8 pg (26-34); Mean Corpuscular Volume 92.2 fl (80-100); Mean Platelet Volume 11.8 fl (7.4-10.4); Platelet Count Result 175 k/mm3 (150-375); Red Blood Count 2.45 M/mm3 (4.2-5.4); Red Cell Distribution Width 14.5 % (11.5-14.5)
[2025-02-01] MEDS: MIDAZOLAM 100MG/NS 100ML(*CRX) 100 MG/100 ML BAG IV CONT (16:24)
[2025-02-01] MEDS: FENTANYL 2,500MCG/NS250ML(*CRX 2,500 MCG/250 ML BAG IV CONT (16:24)
[2025-02-01 17:39] LABS: Glucose Point of Care 93 mg/dl (65-105)
[2025-02-01] MEDS: MINERAL OIL/WHITE PETROLATUM OINTMENT 1 APPLIC EACH EYE (20:21)
[2025-02-01] MEDS: AZITHROMYCIN 500 MG/NS 250 ML 500 MG/250 ML BAG 250 MG IVPB (20:21)
[2025-02-01] MEDS: CENTRAL LINE FLUSH 10 ML IV PUSH (20:22)
[2025-02-01 21:46] LABS: Hematocrit 22.3 % (37.0-47.0); Mean Corpuscular HGB Conc 31.4 g/dl (32-36); Mean Corpuscular Volume 92.5 fl (80-100); Mean Platelet Volume 10.6 fl (7.4-10.4); Platelet Count Result 177 k/mm3 (150-375); Red Blood Count 2.41 M/mm3 (4.2-5.4); Red Cell Distribution Width 15.1 % (11.5-14.5); White Blood Count 9.5 K/mm3 (4.5-10.0)
[2025-02-01 23:58] LABS: Glucose Point of Care 112 mg/dl (65-105)
[2025-02-02] VITALS (31 sets, daily range): BP systolic 99–120; BP diastolic 62–77; PULSE 110–130; RESP 20–22; TEMP 36.9–37.7; O2SAT 97–100
--- NOTE | 2025-02-02 | ECHO_ITS ---
Patient Info Name: Maria Del Carmen Goldman Age: 69 years : 1955 Gender: Female Ht: 60 in Wt: 85 lbs BSA: 1.27 m2 HR: 120 bpm BP: 107 / 71 mmHg Heart Rhythm: Tachycardia Technical Quality: Fair Exam Date: 02/02/2025 9:03 AM Exam Location: Echo Lab Patient Status: Inpatient Admit Date: 01/31/2025 Staff Ordering Physician: Natividad Walters MD Cover Making Machine Operator: Luisa Schumacher RDCS Attending Provider: Mirna Bailey MD Referring Physician: Romeo WELCH; Exam Type: CA echo doppler color flow Study Info Indications - Septic shock Complete two-dimensional, color flow and Doppler transthoracic echocardiogram is performed. Summary 1. Complete two-dimensional, color flow and Doppler transthoracic echocardiogram is performed. 2. Left ventricular chamber dimension is normal. 3. Left ventricular systolic function is normal, estimated at 60-65%. 4. The left ventricular diastolic function is grade I diastolic dysfunction. 5. E/e' 7 is not elevated. 6. There is mild aortic valve sclerosis. 7. There is trace tricuspid valve regurgitation. 8. Mild pulmonary hypertension, estimated pulmonary arterial systolic pressure is 41 mmHg. Left Ventricle E/e' 7 is not elevated. Left ventricular chamber dimension is normal. Left ventricular systolic function is normal, estimated at 60-65%. The left ventricular diastolic function is grade I diastolic dysfunction. Right Ventricle Right ventricular systolic function is normal and with normal TAPSE 2.4 cm. Right ventricular chamber dimension is normal. Left Atria Left atrial chamber dimension is normal. Right Atria Right atrial chamber dimension is normal. Aortic Valve The aortic valve is trileaflet. There is mild aortic valve sclerosis. There is no aortic valve stenosis. There is no aortic valve regurgitation. Pulmonic Valve There is no pulmonic regurgitation. Mitral Valve There is no mitral valve stenosis. There is no mitral valve regurgitation. Tricuspid Valve There is trace tricuspid valve regurgitation. Mild pulmonary hypertension, estimated pulmonary arterial systolic pressure is 41 mmHg. Pericardium/Pleural There is no pericardial effusion. Inferior Vena Cava Normal inferior vena cava with >50% collapse upon inspiration consistent with normal right atrial pressure, 5 mmHg. Aorta The aortic root size at the sinus of Valsalva is normal. Left Ventricular Outflow Tract Name Value Normal LVOT 2D LVOT Diameter 2.0 cm LVOT Doppler LVOT Peak Gradient 6 mmHg LVOT Mean Gradient 2 mmHg LVOT VTI 20 cm LVOT VTI/AV VTI Ratio 0.8 LVOT Stroke Volume 59 ml LVOT CO 7.6 l/min LVOT CI 6.0 l/min/m2 Pulmonic Valve Name Value Normal RVOT Doppler RVOT Peak Gradient 3 mmHg PV Doppler PV Peak Gradient 9 mmHg Mitral Valve Name Value Normal MV Doppler MV Decel [place] 405 cm/s2 MV PHT 52 ms MV Area (PHT) 4.2 cm2 4.0-5.0 MV Diastolic Function MV E Peak Velocity 73 cm/s MV A Peak Velocity 106 cm/s MV E/A 0.7 MV Decel Time 181 ms MV Annular TDI MV E/e' (Septal) 9.1 <=8.0 MV E/e' (Lateral) 5.7 <=8.0 MV E/e' (Average) 7.4 Tricuspid Valve Name Value Normal TV Regurgitation Doppler TR Peak Velocity 299 cm/s TR Peak Gradient 36 mmHg Estimated PAP/RSVP RA Pressure 5 mmHg <=5 PA Systolic Pressure 41 mmHg <36 RV Systolic Pressure 41 mmHg <36 Aortic Valve Name Value Normal AV Doppler AV Peak Velocity 161 cm/s AV Peak Gradient 10 mmHg AV Mean Gradient 6 mmHg AV VTI 24 cm AV Area (Cont Eq VTI) 2.5 cm2 >=3.0 AV Area (Cont Eq Elpidio) 2.2 cm2 AV Regurgitation 2D LVOT Area 3.0 cm2 Ventricles Name Value Normal LV Dimensions 2D/MM IVS Diastolic Thickness (2D) 0.9 cm 0.6-1.0 LVID Diastole (2D) 4.0 cm 3.8-5.2 LVIW Diastolic Thickness (2D) 0.9 cm 0.6-0.9 LVID Systole (2D) 2.7 cm 2.2-3.5 LVOT Diameter 2.0 cm LV Mass (2D Cubed) 107.35 g 67.00-162.00 LV Mass Index (2D Cubed) 85 g/m2 43-95 Relative Wall Thickness (2D) 0.44 LV Fractional Shortening/Ejection Fraction 2D/MM LV Fractional Shortening (2D) 33 % 27-45 LV EF (2D Teicholz) 62 % 54-74 LV Diastolic Volume (4C MOD) 69 ml LV EF (4C MOD) 65 % LV Diastolic Volume (2C MOD) 72 ml LV EF (2C MOD) 59 % LV Diastolic Volume (BP MOD) 71 ml 46-106 LV Diastolic Volume Index (BP MOD) 56 ml/m2 29-61 LV Systolic Volume (BP MOD) 27 ml 14-42 LV Systolic Volume Index (BP MOD) 22 ml/m2 8-24 LV EF (BP MOD) 61 % 54-74 LV Diastolic Length (4C) 6.5 cm LV Systolic Length (4C) 5.3 cm LV Stroke Volume (4C MOD) 45 ml Atria Name Value Normal LA Dimensions LA Volume (4C A-L) 25 ml LA Volume (BP A-L) 32 ml RA Dimensions RA Area (4C) 12.3 cm2 <=18.0 Report Signatures
[2025-02-02] MEDS: PIPERACILLIN/TAZ 4.5G/NS 100ML 4.5 GM/100 ML BAG IVPB ×4 (00:14→17:57)
[2025-02-02] MEDS: ALBUMIN HUMAN 25% 25 GM/100 ML 100 ML IVPB (00:15)
[2025-02-02] MEDS: ACETYLCYSTEINE 20% INHAL SOLN 800 MG/4 ML VIAL 200 MG INHALATION ×4 (02:42→21:06)
[2025-02-02] MEDS: IPRATROPIUM 0.5 MG/ALBUTEROL SULFATE 2.5 MG AMPUL.NEB 3 ML INHALATION ×4 (02:42→21:06)
[2025-02-02 05:52] LABS: Glucose Point of Care 112 mg/dl (65-105)
[2025-02-02] MEDS: CENTRAL LINE FLUSH 10 ML IV PUSH ×3 (06:06→22:00)
[2025-02-02 06:13] LABS: Alveolar/Arterial O2 Gradient 30.4 mmHg; Base Excess ABG 6.8 mEq/l (+/-2.0); Fractional Inspired Oxygen 25 %; HCO3 ABG 33.4 mEq/l (22.0-26.0); Oxygen Content ABG 10.4 %vol (16.0-22.0); Oxygen Saturation ABG 93.7 % (95.0-100.0); Oxyhemoglobin 92.5 % THb (90.0-100.0); PO2 ABG 73.8 mmHg (80.0-100.0); PO2 FiO2 Ratio Arterial Blood 2.95 %; pH ABG 7.347 (7.350-7.450)
[2025-02-02 06:28] LABS: PCO2 ABG 62.4 mmHg (35.0-45.0)
[2025-02-02 06:29] LABS: Total Hemoglobin 7.9 g/dL (12.0-18.0)
[2025-02-02 06:30] LABS: Device VENTILATOR; Modified Allen's Test Pass; Site Drawn RIGHT RADIAL
[2025-02-02 06:32] LABS: Arterial Blood Gas Vent Mode CMV; Arterial Blood Gas Ventilator rate 20 /MIN
[2025-02-02 06:33] LABS: Arterial Blood Gas PEEP 8 cmH2O; Arterial Blood Gas Tidal Volume 320 ml
[2025-02-02 06:54] LABS: Alanine Aminotransferase 44 U/L (6-35); Albumin Level 3.8 g/dL (3.5-5.1); Alkaline Phosphatase 55 U/L (38-126); Anion Gap 6 mmol/L (4-12); Aspartate Amino Transferase 28 U/L (14-36); Bilirubin,Total 0.8 mg/dL (0.2-1.3); Blood Urea Nitrogen 10 mg/dL (7-17); Calcium 9.3 mg/dL (8.4-10.2); Carbon Dioxide 36 mmol/L (22-30); Chloride 106 mmol/L (98-107); Estimated CRCL calculation 44 ml/min; Estimated Glomerular Filt Rate > 60; Glucose 114 mg/dL (65-110); Lactic Acid Reflex 0.6 mmol/L (0.7-2.0); Magnesium 2.2 mg/dL (1.6-2.3); Phosphorus 4.3 mg/dL (2.5-4.5); Potassium 3.9 mmol/L (3.4-5.0); Sodium 148 mmol/L (137-145)
[2025-02-02 06:57] LABS: Basophils Percent Auto 0.1 % (0.2-1.2); Hematocrit 23.9 % (37.0-47.0); Hemoglobin 7.3 g/dL (12.0-15.0); Immature Granulocyte Absolute 0.06 K/mm3 (0.00-0.031); Immature Granulocyte Percent A 0.6 % (0-0.5); Lymphocytes Absolute Auto 1.07 K/mm3 (0.9-3.2); Lymphocytes Percent Auto 10.2 % (18.3-44.2); Mean Corpuscular HGB Conc 30.5 g/dl (32-36); Mean Corpuscular Volume 94.8 fl (80-100); Mean Platelet Volume 11.3 fl (7.4-10.4); Monocytes Absolute Auto 0.9 K/mm3 (0.1-0.6); Monocytes Percent Auto 8.6 % (2.6-8.5); Neutrophils Absolute Auto 8.4 K/mm3 (1.3-6.7); Neutrophils Percent Auto 80.5 % (45.5-73.1); Platelet Count Result 185 k/mm3 (150-375); Red Blood Count 2.52 M/mm3 (4.2-5.4); Red Cell Distribution Width 15.5 % (11.5-14.5); White Blood Count 10.5 K/mm3 (4.5-10.0)
[2025-02-02] MEDS: MINERAL OIL/WHITE PETROLATUM OINTMENT 1 APPLIC EACH EYE ×2 (08:43→20:13)
[2025-02-02] MEDS: polyethylene glycoL 3350 17 GM POWD.PACK PO (08:43)
[2025-02-02] MEDS: DOCUSATE SODIUM LIQ 100 MG/10 ML UDC PO ×2 (08:43→20:09)
[2025-02-02] MEDS: PANTOPRAZOLE SODIUM IV 40 MG VIAL IV PUSH ×2 (08:43→20:09)
[2025-02-02 11:17] LABS: Hemoglobin 7.1 g/dL (12.0-15.0); Mean Corpuscular HGB Conc 30.9 g/dl (32-36); Mean Corpuscular Hemoglobin 29.1 pg (26-34); Mean Corpuscular Volume 94.3 fl (80-100); Platelet Count Result 188 k/mm3 (150-375); Red Blood Count 2.44 M/mm3 (4.2-5.4); Red Cell Distribution Width 15.6 % (11.5-14.5); White Blood Count 10.4 K/mm3 (4.5-10.0)
--- NOTE | 2025-02-02 11:56 | PCNFU ---
Nutrition Follow-Up Complete: Inadequate Oral Intake as related to mechanical ventilation as evidenced by NPO. goal: Meet estimated nutritional needs. Patient is progressing towards goal. We will continue current goal. Pt current nutrition is Vital AF 1.2 at 20 ml/hr. Nutrition recommendation: goal rate 50 ml/hr. Last recorded weight is 38.3 kg, 38.8 kg on admit. Bowel Motility: No BM reported. Labs Reviewed: Glu 114, Cr 0.62, Na 148 Meds Noted: Fentanyl, Versed, Levophed, Miralax, Colace, Zosyn Skin: WNL Additional Notes: Patient remains on mechanical vent. Tube feedings are being tolerated on Vital AF 1.2 at 20 ml/hr. Electrolytes WNL. Advancing tube feedings to by 10 ml a 4 hours to goal rate of 50 ml/hr. Tube feedings at goal rate providing 1320 kcal/82 gm protein/982 ml water. Flush increased 60 ml q 4 hours 2/2 to Na 148 today. Agree with diet orders. Will monitor weight, labs, skin, diet orders, meds every Wednesday and Wednesday.
--- NOTE | 2025-02-02 11:57 | P.PNINT_ITS ---
Progress Note: A&P Assessment and Plan (1) Acute hypoxic respiratory failure: Code(s): J96.01 - Acute respiratory failure with hypoxia Status: Acute Assessment and Plan: 01/31/2025: Patient presented from [facility] with hypoxia, periods of apnea, and unresponsiveness. She was brought to the ED being bagged, she did not have a gag and was unresponsive in the ED so was intubated upon arrival to the ED. central line was also inserted as she was hypotensive -chest x-ray showed right lower lobe pneumonia/consolidate -currently on CMV mode of ventilation, peep of -ABGs and chest x-ray reviewed, ventilator adjusted -continue bronchodilators and Mucomyst nebulizer -sedated with fentanyl and Versed infusion, maintain RASS of 0 to -2, daily SBT and SAT (2) AMS (altered mental status): Qualifiers: Altered mental status type: unspecified Qualified Code(s): R41.82 - Altered mental status, unspecified Code(s): R41.82 - Altered mental status, unspecified Status: Acute Assessment and Plan: Encephalopathy could be related to hypoxia, hypercapnia, pneumonia/infection/hypotension, could be related to medication -currently intubated, sedated -will wean sedation , to evaluate neurological status (3) Pneumonia: Qualifiers: Pneumonia type: due to unspecified organism Laterality: right Lung location: unspecified part of lung Qualified Code(s): J18.9 - Pneumonia, unspecified organism Code(s): J18.9 - Pneumonia, unspecified organism Status: Acute Assessment and Plan: Chest x-ray and CTA chest show right lower lobe consolidation -according the [facility] records: Repeat CT chest showed i nterval development of new airspace opacities raising concern for aspiration pneumonia. She was transition to Zosyn from cefepime. MBS performed on 01/26 at [facility] which showed no evidence of aspiration despite coughing especially with swallowing. -continue Zosyn, azithromycin (01/31) -MRSA screen is negative, -will discontinue vancomycin (02/01) (4) Sepsis: Code(s): A41.9 - Sepsis, unspecified organism Status: Acute Assessment and Plan: Patient presents altered mental status, hypoxia, apnea, pneumonia. -lactic acid was normal -blood pressures are borderline -patient was adequately fluid-resuscitated -status post albumin for volume expansion -patient was started on Levophed, will maintain MAP > 65 mmHg or SBP > 100 mmHg for adequate end organ perfusion -continue to monitor urine output and renal function (5) Cerebral palsy: Code(s): G80.9 - Cerebral palsy, unspecified Status: Acute Assessment and Plan: Patient with cerebral palsy, mild intellectual disability, schizophrenia, nonverbal at baseline according the chart -patient on risperidone, will restart prior to extubation as she is currently sedated and intubated (6) Anemia: Code(s): D64.9 - Anemia, unspecified Status: Acute Assessment and Plan: Patient admitted with a hemoglobin of 10.3 on 01/31 -02/01: Hemoglobin dropped to 7.7, a repeat CBC was done which showed a hemoglobin of 7.3 -will check stools for occult blood, folic acid and vitamin B12 level -LDH is normal, haptoglobin is pending -Protonix IV q.12 hours -continue to monitor Plan DVT prophylaxis: SCDs. 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 This critical care time included obtaining a history; examining the patient; pulse oximetry; ordering and review of studies; arranging urgent treatment with development of a management plan; evaluation of patient's response to treatment; frequent reassessment; and discussions with other providers. It was exclusive of separately billable procedures and treating other patients and teaching time. Please see Assessment and Plan section and the rest of the note for further information on patient assessment and treatment This dictation may have been done utilizing a voice recognition system. Attempts have been made to correct errors. However, there may be uncorrected grammatical, spelling, and recognitions errors present. Subjective Date/time seen: 02/02/25 11:57 Interval history: Reason for consult: Acute respiratory failure, pneumonia, altered mental status, unresponsiveness, anemia 02/03/2024: Patient seen and examined the ICU, remains intubated on CMV mode of ventilation, peep of 5, 25% FiO2, sedated with fentanyl and Versed infusion. Urine output has been adequate, patient is afebrile. Does not open her eyes or follow simple commands. Lactic acid 0.6, LFTs trending down. Sodium levels up to 148. Hemoglobin of 7.3 from 7.0 last night. Review of Systems Review of Systems: ROS unobtainable: Yes unobtainable due to endotracheal tube, unobtainable due to medical condition and unobtainable due to mental status Exam Narrative: General: Petite female/malnourished, in no acute distress HEENT:? Pupils are pinpoint, sluggish, ETT in place Neck:? Supple Respiratory:? Coarse breath sounds bilaterally, rales on right base, no wheezi ng, adequate air entry otherwise Cardiac:? S1-S2 normal, regular rate and rhythm Abdomen:? Soft, nontender, nondistended, hypoactive bowel sounds Extremities:? Trace edema, bilateral pedal pulses are palpable Neuro:? Intubated, sedated, does not open her eyes or follow simple commands Skin:? No skin lesions noted Psych:? Unable to assess at this time Objective Data Vital Signs Vital Signs: Vital Signs - 24 hr 02/01/25 12:00 02/01/25 12:00 02/01/25 12:00 Temperature 98.0 F Pulse Rate 105 H 105 H Respiratory Rate 20 20 Blood Pressure Pulse Oximetry Oxygen Delivery Fraction of Inspired Oxygen 02/01/25 12:00 02/01/25 12:00 02/01/25 12:00 Temperature 98.0 F Pulse Rate 103 H 105 H Respiratory Rate 20 Blood Pressure 86/56 L Pulse Oximetry 100 Oxygen Delivery Mechanical Ventilation Fraction of Inspired Oxygen 40 02/01/25 12:00 02/01/25 12:30 02/01/25 12:46 Temperature 98.1 F Pulse Rate 95 Respiratory Rate Blood Pressure 111/70 Pulse Oximetry Oxygen Delivery Fraction of Inspired Oxygen 40 02/01/25 13:00 02/01/25 13:51 02/01/25 13:52 Temperature 98.3 F Pulse Rate 99 99 Respiratory Rate 20 Blood Pressure 130/79 Pulse Oximetry Oxygen Delivery Fraction of Inspired Oxygen 02/01/25 14:00 02/01/25 14:00 02/01/25 14:00 Temperature Pulse Rate 104 H 104 H 104 H Respiratory Rate 20 20 Blood Pressure 101/62 Pulse Oximetry Oxygen Delivery Fraction of Inspired Oxygen 02/01/25 14:00 02/01/25 14:00 02/01/25 14:10 Temperature 98.5 F Pulse Rate 104 H 104 H 106 H Respiratory Rate 20 20 Blood Pressure 101/62 Pulse Oximetry 100 Oxygen Delivery Fraction of Inspired Oxygen 02/01/25 14:10 02/01/25 14:22 02/01/25 16:00 Temperature Pulse Rate 113 H 109 H 115 H Respiratory Rate 20 Blood Pressure Pulse Oximetry 100 Oxygen Delivery Mechanical Ventilation Fraction of Inspired Oxygen 40 02/01/25 16:00 02/01/25 16:00 02/01/25 16:00 Temperature Pulse Rate 114 H 114 H 114 H Respiratory Rate 20 20 Blood Pressure 93/56 L Pulse Oximetry Oxygen Delivery Fraction of Inspired Oxygen 02/01/25 16:00 02/01/25 16:00 02/01/25 16:00 Temperature 98.9 F Pulse Rate 114 H Respiratory Rate 20 Blood Pressure 93/56 L Pulse Oximetry 100 Oxygen Delivery Mechanical Ventilation Fraction of Inspired Oxygen 40 40 02/01/25 16:24 02/01/25 16:24 02/01/25 16:35 Temperature Pulse Rate 119 H 119 H 134 H Respiratory Rate 20 20 20 Blood Pressure Pulse Oximetry Oxygen Delivery Fraction of Inspired Oxygen 02/01/25 17:38 02/01/25 18:00 02/01/25 18:00 Temperature 98.7 F Pulse Rate 116 H 114 H 114 H Respiratory Rate 20 Blood Pressure 93/57 L Pulse Oximetry 100 100 Oxygen Delivery Mechanical Ventilation Fraction of Inspired Oxygen 40 02/01/25 18:00 02/01/25 18:00 02/01/25 18:00 Temperature Pulse Rate 114 H 114 H 114 H Respiratory Rate 20 20 Blood Pressure 93/57 L Pulse Oximetry Oxygen Delivery Fraction of Inspired Oxygen 02/01/25 20:00 02/01/25 20:00 02/01/25 20:00 Temperature Pulse Rate 121 H 122 H Respiratory Rate 20 Blood Pressure Pulse Oximetry 100 Oxygen Delivery Mechanical Ventilation Fraction of Inspired Oxygen 40 40 02/01/25 20:00 02/01/25 20:00 02/01/25 20:00 Temperature 98.3 F Pulse Rate 122 H 122 H 122 H Respiratory Rate 20 20 Blood Pressure 101/73 101/73 Pulse Oximetry 100 Oxygen Delivery Fraction of Inspired Oxygen 02/01/25 20:00 02/01/25 20:07 02/01/25 20:09 Temperature Pulse Rate 122 H 125 H 125 H Respiratory Rate 20 20 Blood Pressure Pulse Oximetry 100 Oxygen Delivery Mechanical Ventilation Fraction of Inspired Oxygen 40 02/01/25 22:00 02/01/25 22:00 02/01/25 22:00 Temperature Pulse Rate 116 H 116 H 116 H Respiratory Rate 20 20 Blood Pressure 98/64 L Pulse Oximetry Oxygen Delivery Fraction of Inspired Oxygen 02/01/25 22:00 02/02/25 00:00 02/02/25 00:00 Temperature 99.1 F Pulse Rate 116 H 110 H 113 H Respiratory Rate 20 20 Blood Pressure 98/64 L Pulse Oximetry 100 100 Oxygen Delivery Mechanical Ventilation Fraction of Inspired Oxygen 35 02/02/25 00:00 02/02/25 00:00 02/02/25 00:00 Temperature 99.0 F Pulse Rate 110 H 110 H Respiratory Rate 20 Blood Pressure 103/64 103/64 Pulse Oximetry 100 Oxygen Delivery Fraction of Inspired Oxygen 35 02/02/25 00:00 02/02/25 00:00 02/02/25 00:00 Temperature Pulse Rate 110 H 110 H 113 H Respiratory Rate 20 20 Blood Pressure Pulse Oximetry 100 Oxygen Delivery Mechanical Ventilation Fraction of Inspired Oxygen 35 02/02/25 02:00 02/02/25 02:00 02/02/25 02:00 Temperature 98.8 F Pulse Rate 115 H 115 H 115 H Respiratory Rate 20 Blood Pressure 103/62 103/62 Pulse Oximetry 99 Oxygen Delivery Fraction of Inspired Oxygen 02/02/25 02:00 02/02/25 02:00 02/02/25 02:42 Temperature Pulse Rate 115 H 115 H 120 H Respiratory Rate 20 20 20 Blood Pressure Pulse Oximetry Oxygen Delivery Fraction of Inspired Oxygen 02/02/25 02:42 02/02/25 04:00 02/02/25 04:00 Temperature 98.9 F Pulse Rate 120 H 115 H Respiratory Rate 20 Blood Pressure 99/62 L Pulse Oximetry 98 97 Oxygen Delivery Mechanical Ventilation Fraction of Inspired Oxygen 30 25 02/02/25 04:00 02/02/25 04:00 02/02/25 04:00 Temperature Pulse Rate 117 H 116 H 116 H Respiratory Rate 20 20 Blood Pressure 99/62 L Pulse Oximetry 100 Oxygen Delivery Mechanical Ventilation Fraction of Inspired Oxygen 25 02/02/25 04:00 02/02/25 04:00 02/02/25 05:06 Temperature Pulse Rate 116 H 118 H 113 H Respiratory Rate 20 Blood Pressure Pulse Oximetry 98 Oxygen Delivery Mechanical Ventilation Fraction of Inspired Oxygen 25 02/02/25 06:00 02/02/25 06:00 02/02/25 06:00 Temperature 99.0 F Pulse Rate 119 H 120 H 120 H Respiratory Rate 20 20 Blood Pressure 107/71 107/71 Pulse Oximetry 98 Oxygen Delivery Fraction of Inspired Oxygen 02/02/25 06:00 02/02/25 06:00 02/02/25 08:00 Temperature Pulse Rate 120 H 120 H 123 H Respiratory Rate 20 20 Blood Pressure Pulse Oximetry 100 Oxygen Delivery Mechanical Ventilation Fraction of Inspired Oxygen 25 02/02/25 08:00 02/02/25 08:00 02/02/25 08:00 Temperature 98.4 F Pulse Rate 123 H 123 H Respiratory Rate 20 Blood Pressure 105/64 Pulse Oximetry 100 Oxygen Delivery Fraction of Inspired Oxygen 02/02/25 08:00 02/02/25 08:18 02/02/25 08:18 Temperature Pulse Rate 123 H 123 H 123 H Respiratory Rate Blood Pressure 105/64 Pulse Oximetry 100 100 Oxygen Delivery Mechanical Ventilation Mechanical Ventilation Fraction of Inspired Oxygen 02/02/25 08:18 02/02/25 08:19 02/02/25 08:20 Temperature Pulse Rate 123 H 123 H 123 H Respiratory Rate 20 20 20 Blood Pressure Pulse Oximetry Oxygen Delivery Fraction of Inspired Oxygen 02/02/25 08:26 02/02/25 10:00 02/02/25 10:00 Temperature Pulse Rate 126 H 114 H 114 H Respiratory Rate 20 20 Blood Pressure 117/76 Pulse Oximetry Oxygen Delivery Fraction of Inspired Oxygen 02/02/25 10:33 02/02/25 10:34 02/02/25 11:00 Temperature Pulse Rate 114 H 114 H 117 H Respiratory Rate 20 Blood Pressure 111/69 109/68 Pulse Oximetry Oxygen Delivery Fraction of Inspired Oxygen 02/02/25 11:37 Temperature Pulse Rate 120 H Respiratory Rate Blood Pressure Pulse Oximetry 100 Oxygen Delivery Mechanical Ventilation Fraction of Inspired Oxygen 35 Intake/Output Intake/Output: Intake & Output 01/30/25 01/31/25 02/01/25 02/02/25 23:59 23:59 23:59 23:59 Intake Total 664.9 6760.2 860.2 Output Total 2600 500 Balance 664.9 4160.2 360.2 Meds/Results Medications: Active Medications Generic Name Dose Route Start Last Admin Trade Name Freq PRN Reason Stop Dose Admin Acetylcysteine 200 mg 02/01/25 09:10 02/02/25 08:16 Acetylcysteine 20% Inhal Soln 800 Mg/4 Ml Vial INHALATION 200 mg Q6HRT HAIM Administration Albuterol/Ipratropium 3 ml 02/01/25 09:10 02/02/25 08:16 Ipratropium 0.5 Mg/Albuterol Sulfate 2.5 Mg Ampul.Neb 3 Ml INHALATION 3 ml Q6HRT HAIM Administration Dextrose 12.5 gm 02/01/25 07:23 Dextrose 50% 25 Gm/50 Ml Syringe IV PUSH PRN PRN Hypoglycemia Protocol Diphenhydramine HCl 25 mg 01/31/25 21:37 Diphenhydramine Hcl Inj 50 Mg/Ml Vial IV PUSH Q5M PRN Allergic Reaction Docusate Sodium 100 mg 02/01/25 09:40 02/02/25 08:43 Docusate Sodium Liq 100 Mg/10 Ml Udc PO 100 mg Q12HR HAIM Administration Glucagon 1 mg 02/01/25 07:23 Glucagon For Inj 1 Mg Vial IM PRN PRN Hypoglycemia Protocol Glucose 15 gm 02/01/25 07:23 Glucose Oral Gel 15 Gm Of Glucse In 37.5 Gm Tube PO PRN PRN Hypoglycemia Protocol Azithromycin 500 mg in 250 mls @ 250 mls/hr 01/31/25 20:00 02/01/25 21:21 Zithromax IVPB 02/04/25 23:59 Infused Q24H HAIM Infusion Piperacillin Sod/Tazobactam Sod 4.5 gm in 100 mls @ 200 mls/hr 01/31/25 23:00 02/02/25 06:36 Zosyn 4.5 Gm/Ns 100 Ml IVPB Infused Q6HR AHIM Infusion Dextrose 1,000 mls @ 100 mls/hr 02/01/25 07:23 Dextrose 5% 1,000 Ml IVPB PRN PRN Hypoglycemia Protocol Norepinephrine Bitartrate 8 mg in 250 mls @ 0 mls/hr 02/01/25 11:10 02/02/25 11:00 Levophed 8 Mg/D5w 250 Ml IV CONT 0 mcg/min .Q0M HAIM 0 mls/hr Titration Protocol Fentanyl Citrate 2,500 mcg in 250 mls @ 7.5 mls/hr 02/01/25 16:15 02/02/25 10:00 Fentanyl 2,500 Mcg/Ns 250 Ml IV CONT 75 mcg/hr .[id number] HAIM 7.5 mls/hr Infusion 75 MCG/HR Midazolam HCl 100 mg in 100 mls @ 1 mls/hr 02/01/25 16:15 02/02/25 10:33 Versed 100 Mg/Ns 100 Ml IV CONT 2 mg/hr .Q72H HAIM 2 mls/hr Infusion 1 MG/HR Insulin Aspart 3 - 6 units 02/01/25 12:00 02/02/25 06:05 Insulin Aspart (*Bkc) 100 Units/Ml SUB-Q Not Given Q6HR HAIM Protocol Multi-Ingred Cream/Lotion/Oil/Oint 1 applic 02/01/25 21:00 02/02/25 08:43 Mineral Oil/White Petrolatum Ointment EACH EYE 1 applic Q12HR HAIM Administration Ondansetron HCl 4 mg 01/31/25 16:00 Ondansetron Inj 4 Mg/2 Ml Vial IV PUSH Q4H PRN Nausea Pantoprazole Sodium 40 mg 02/01/25 09:00 02/02/25 08:43 Pantoprazole Sodium Iv 40 Mg Vial IV PUSH 40 mg Q12HR HAIM Administration Perflutren Lipid Microsphere 0 ml 02/02/25 07:32 Perflutren Lipid Microspheres 1.5 Ml Vial Diluted To 10 Ml Total Volume IV PUSH 02/05/25 07:32 ONCE PRN adequate visualization Protocol Polyethylene Glycol 17 gm 02/01/25 09:25 02/02/25 08:43 Polyethylene Glycol 3350 17 Gm Powd.Pack PO 17 gm QAM HAIM Administration Sodium Chloride 10 ml 02/01/25 14:00 02/02/25 06:06 Central Line Flush IV PUSH 10 ml Q8HR HAIM Administration Sodium Chloride 20 ml 02/01/25 06:37 Central Line Flush IV PUSH PRN PRN after blood draws Radiology Results: ITS Impressions Head CT 01/31/25 15:47 Impression: No acute intracranial hemorrhage or suspicious mass effect. Chest/Abdomen/Pelvis CTA 01/31/25 15:49 IMPRESSION: Right middle and lower lobe pneumonia with dense consolidation. Left basilar atelectasis. No pulmonary embolus. No aortic dissection. Oral contrast opacifies the entirety of the colon. Supportive lines in good position. No acute pathology within the remainder of the examination, as detailed above. Abdomen X-Ray 01/31/25 21:20 IMPRESSION: Orogastric tube in good position and ready for immediate use. Chest X-Ray 02/02/25 06:34 Impression: Small right pleural effusion with hazy right basilar airspace disease and possible partial right basilar atelectasis. Support tubes, as above. Labs Labs: Laboratory Results - last 24 hr 02/01/25 02/01/25 02/01/25 09:13 13:56 17:37 WBC 9.0 RBC 2.45 L Hgb 7.3 L Hct 22.6 L MCV 92.2 MCH 29.8 MCHC 32.3 RDW 14.5 Plt Count 175 MPV 11.8 H Immature Gran % (Auto) Neut % (Auto) Lymph % (Auto) [place] % (Auto) Eos % (Auto) Baso % (Auto) Lymph # (Auto) [place] # (Auto) Eos # (Auto) Baso # (Auto) Abs Immat Gran (auto) Absolute Neuts (auto) Absolute Nucleated RBC Nucleated RBC % Puncture Site ABG pH ABG pCO2 ABG pO2 ABG PO2/FiO2 Ratio ABG HCO3 ABG O2 Saturation ABG O2 Content ABG Base Excess A-a Gradient Oxyhemoglobin Total Hemoglobin O2 Delivery Device O2 Liters/Min Minute Volume Vent Rate Vent Mode FiO2 Tidal Volume PEEP Peak Inspir Pressure Pressure Support Sodium Potassium Chloride Carbon Dioxide Anion Gap BUN Creatinine Estim Creat Clear Calc Estimated GFR Glucose POC Capillary Glucose 93 Lactic Acid Calcium Phosphorus Magnesium Total Bilirubin AST ALT Alkaline Phosphatase Lactate Dehydrogenase 140 Total Protein Albumin 02/01/25 02/01/25 02/02/25 21:42 23:50 05:36 WBC 9.5 RBC 2.41 L Hgb 7.0 L Hct 22.3 L MCV 92.5 MCH 29.0 MCHC 31.4 L RDW 15.1 H Plt Count 177 MPV 10.6 H Immature Gran % (Auto) Neut % (Auto) Lymph % (Auto) [place] % (Auto) Eos % (Auto) Baso % (Auto) Lymph # (Auto) [place] # (Auto) Eos # (Auto) Baso # (Auto) Abs Immat Gran (auto) Absolute Neuts (auto) Absolute Nucleated RBC Nucleated RBC % Puncture Site ABG pH ABG pCO2 ABG pO2 ABG PO2/FiO2 Ratio ABG HCO3 ABG O2 Saturation ABG O2 Content ABG Base Excess A-a Gradient Oxyhemoglobin Total Hemoglobin O2 Delivery Device O2 Liters/Min Minute Volume Vent Rate Vent Mode FiO2 Tidal Volume PEEP Peak Inspir Pressure Pressure Support Sodium Potassium Chloride Carbon Dioxide Anion Gap BUN Creatinine Estim Creat Clear Calc Estimated GFR Glucose POC Capillary Glucose 112 H 112 H Lactic Acid Calcium Phosphorus Magnesium Total Bilirubin AST ALT Alkaline Phosphatase Lactate Dehydrogenase Total Protein Albumin 02/02/25 02/02/25 02/02/25 05:45 06:36 11:11 WBC 10.5 H 10.4 H RBC 2.52 L 2.44 L Hgb 7.3 L 7.1 L Hct 23.9 L 23.0 L MCV 94.8 94.3 MCH 29.0 29.1 MCHC 30.5 L 30.9 L RDW 15.5 H 15.6 H Plt Count 185 188 MPV 11.3 H 11.0 H Immature Gran % (Auto) 0.6 H Neut % (Auto) 80.5 H Lymph % (Auto) 10.2 L [place] % (Auto) 8.6 H Eos % (Auto) 0.0 Baso % (Auto) 0.1 L Lymph # (Auto) 1.07 [place] # (Auto) 0.9 H Eos # (Auto) 0.0 Baso # (Auto) 0.0 Abs Immat Gran (auto) 0.06 H Absolute Neuts (auto) 8.4 H Absolute Nucleated RBC 0.000 Nucleated RBC % 0.0 Puncture Site Right radial ABG pH 7.347 L ABG pCO2 62.4 H* ABG pO2 73.8 L ABG PO2/FiO2 Ratio 2.95 ABG HCO3 33.4 H ABG O2 Saturation 93.7 L ABG O2 Content 10.4 L ABG Base Excess 6.8 A-a Gradient 30.4 Oxyhemoglobin 92.5 Total Hemoglobin 7.9 L O2 Delivery Device Ventilator O2 Liters/Min Not Reportable Minute Volume Not Reportable Vent Rate 20 Vent Mode Cmv FiO2 25 Tidal Volume 320 PEEP 8 Peak Inspir Pressure Not Reportable Pressure Support Not Reportable Sodium 148 H Potassium 3.9 Chloride 106 Carbon Dioxide 36 H Anion Gap 6 BUN 10 Creatinine 0.62 L Estim Creat Clear Calc 44 Estimated GFR > 60 Glucose 114 H POC Capillary Glucose Lactic Acid 0.6 L Calcium 9.3 Phosphorus 4.3 Magnesium 2.2 Total Bilirubin 0.8 AST 28 ALT 44 H Alkaline Phosphatase 55 Lactate Dehydrogenase Total Protein 7.0 Albumin 3.8 Quality VTE Prophylaxis VTE prophylaxis: mechanical ordered
[2025-02-02 12:17] LABS: Glucose Point of Care 99 mg/dl (65-105)
[2025-02-02 17:58] LABS: Glucose Point of Care 111 mg/dl (65-105)
[2025-02-02] MEDS: AZITHROMYCIN 500 MG/NS 250 ML 500 MG/250 ML BAG 250 MG IVPB (20:07)
[2025-02-02 22:18] LABS: Haptoglobin 129 mg/dL (43-212)
[2025-02-03] VITALS (28 sets, daily range): BP systolic 110–134; BP diastolic 61–86; PULSE 112–139; RESP 20–22; TEMP 36.9–38.2; O2SAT 100
[2025-02-03] MEDS: PIPERACILLIN/TAZ 4.5G/NS 100ML 4.5 GM/100 ML BAG IVPB ×4 (00:11→17:58)
[2025-02-03 00:24] LABS: Glucose Point of Care 104 mg/dl (65-105)
[2025-02-03] MEDS: IPRATROPIUM 0.5 MG/ALBUTEROL SULFATE 2.5 MG AMPUL.NEB 3 ML INHALATION ×4 (02:52→19:47)
[2025-02-03] MEDS: FENTANYL 2,500MCG/NS250ML(*CRX 2,500 MCG/250 ML BAG 10 MCG IV CONT (04:00)
[2025-02-03 05:25] LABS: Alveolar/Arterial O2 Gradient 87.9 mmHg; Arterial Blood Gas Vent Mode CMV; Arterial Blood Gas Ventilator rate 22 /MIN; Base Excess ABG 10.7 mEq/l (+/-2.0); Device VENTILATOR; Fractional Inspired Oxygen 35 %; HCO3 ABG 35.7 mEq/l (22.0-26.0); Oxygen Content ABG 13.9 %vol (16.0-22.0); Oxygen Saturation ABG 97.9 % (95.0-100.0); Oxyhemoglobin 97.4 % THb (90.0-100.0); PCO2 ABG 50.2 mmHg (35.0-45.0); PO2 ABG 103.3 mmHg (80.0-100.0); PO2 FiO2 Ratio Arterial Blood 2.95 %; Site Drawn RIGHT BRACHIAL
[2025-02-03 05:26] LABS: Arterial Blood Gas PEEP 8 cmH2O; Arterial Blood Gas Tidal Volume 320 ml
[2025-02-03 05:36] LABS: Basophils Percent Auto 0.1 % (0.2-1.2); Hematocrit 23.2 % (37.0-47.0); Hemoglobin 7.3 g/dL (12.0-15.0); Immature Granulocyte Absolute 0.07 K/mm3 (0.00-0.031); Immature Granulocyte Percent A 0.7 % (0-0.5); Lymphocytes Absolute Auto 1.19 K/mm3 (0.9-3.2); Lymphocytes Percent Auto 11.6 % (18.3-44.2); Mean Corpuscular HGB Conc 31.5 g/dl (32-36); Mean Corpuscular Volume 92.1 fl (80-100); Mean Platelet Volume 11.2 fl (7.4-10.4); Monocytes Absolute Auto 0.8 K/mm3 (0.1-0.6); Monocytes Percent Auto 7.8 % (2.6-8.5); Neutrophils Absolute Auto 8.2 K/mm3 (1.3-6.7); Neutrophils Percent Auto 79.8 % (45.5-73.1); Platelet Count Result 203 k/mm3 (150-375); Red Blood Count 2.52 M/mm3 (4.2-5.4); Red Cell Distribution Width 15.6 % (11.5-14.5); White Blood Count 10.3 K/mm3 (4.5-10.0)
[2025-02-03 05:51] LABS: Alanine Aminotransferase 40 U/L (6-35); Albumin Level 3.5 g/dL (3.5-5.1); Alkaline Phosphatase 69 U/L (38-126); Anion Gap 5 mmol/L (4-12); Aspartate Amino Transferase 29 U/L (14-36); Bilirubin,Total 0.7 mg/dL (0.2-1.3); Blood Urea Nitrogen 13 mg/dL (7-17); Carbon Dioxide 36 mmol/L (22-30); Chloride 106 mmol/L (98-107); Estimated CRCL calculation 49 ml/min; Estimated Glomerular Filt Rate > 60; Glucose 119 mg/dL (65-110); Magnesium 2.2 mg/dL (1.6-2.3); Phosphorus 2.8 mg/dL (2.5-4.5); Potassium 3.1 mmol/L (3.4-5.0); Sodium 147 mmol/L (137-145)
[2025-02-03 05:53] LABS: Lactic Acid Reflex 0.7 mmol/L (0.7-2.0)
[2025-02-03] MEDS: CENTRAL LINE FLUSH 10 ML IV PUSH ×3 (06:00→20:03)
[2025-02-03] MEDS: PANTOPRAZOLE SODIUM IV 40 MG VIAL IV PUSH ×2 (08:19→20:02)
[2025-02-03] MEDS: DOCUSATE SODIUM LIQ 100 MG/10 ML UDC PO ×2 (08:19→20:02)
[2025-02-03] MEDS: MINERAL OIL/WHITE PETROLATUM OINTMENT 1 APPLIC EACH EYE ×2 (08:19→20:02)
[2025-02-03] MEDS: polyethylene glycoL 3350 17 GM POWD.PACK PO (08:19)
[2025-02-03] MEDS: POTASSIUM CHLORIDE 20 MEQ PACKET (FOR LIQUID) 40 MEQ FEED TUBE (08:19)
[2025-02-03] MEDS: POTASSIUM CHLORIDE 20 MEQ PACKET (FOR LIQUID) FEED TUBE (08:19)
[2025-02-03] MEDS: ACETYLCYSTEINE 20% INHAL SOLN 800 MG/4 ML VIAL 200 MG INHALATION ×2 (08:39→19:47)
[2025-02-03] MEDS: MIDAZOLAM 100MG/NS 100ML(*CRX) 100 MG/100 ML BAG IV CONT (11:11)
[2025-02-03] MEDS: IRON SUCROSE COMPLEX 200 MG in SODIUM CHLORIDE 0.9% IV 100 ML 220 MG IVPB (11:13)
[2025-02-03 12:18] LABS: Glucose Point of Care 116 mg/dl (65-105)
--- NOTE | 2025-02-03 13:12 | WPDINTPN ---
Progress Note: A&P Assessment and Plan (1) Acute hypoxic respiratory failure: Code(s): J96.01 - Acute respiratory failure with hypoxia Status: Acute Assessment and Plan: 01/31/2025: Patient presented from [facility] with hypoxia, periods of apnea, and unresponsiveness. She was brought to the ED being bagged, she did not have a gag and was unresponsive in the ED so was intubated upon arrival to the ED. central line was also inserted as she was hypotensive -chest x-ray showed right lower lobe pneumonia/consolidate -currently on CMV mode of ventilation, peep of -ABGs and chest x-ray reviewed, ventilator adjusted -continue bronchodilators and Mucomyst nebulizer -sedated with fentanyl and Versed infusion, maintain RASS of 0 to -2, daily SBT and SAT (2) AMS (altered mental status): Qualifiers: Altered mental status type: unspecified Qualified Code(s): R41.82 - Altered mental status, unspecified Code(s): R41.82 - Altered mental status, unspecified Status: Acute Assessment and Plan: Encephalopathy could be related to hypoxia, hypercapnia, pneumonia/infection/hypotension, could be related to medication -currently intubated, sedated -will wean sedation , to evaluate neurological status (3) Pneumonia: Qualifiers: Pneumonia type: due to unspecified organism Laterality: right Lung location: unspecified part of lung Qualified Code(s): J18.9 - Pneumonia, unspecified organism Code(s): J18.9 - Pneumonia, unspecified organism Status: Acute Assessment and Plan: Chest x-ray and CTA chest show right lower lobe consolidation -according the [facility] records: Repeat CT chest showed interval development of new airspace opacities raising concern for aspiration pneumonia. She was transition to Zosyn from cefepime. MBS performed on 01/26 at [facility] which showed no evidence of aspiration despite coughing especially with swallowing. -continue Zosyn, azithromycin (01/31) -MRSA screen is negative, -will discontinue vancomycin (02/01) (4) Sepsis: Code(s): A41.9 - Sepsis, unspecified organism Status: Acute Assessment and Plan: Patient presents altered mental status, hypoxia, apnea, pneumonia. -lactic acid was normal -blood pressures are borderline -patient was adequately fluid-resuscitated -status post albumin for volume expansion -off Levophed, -continue to monitor urine output and renal function (5) Cerebral palsy: Code(s): G80.9 - Cerebral palsy, unspecified Status: Acute Assessment and Plan: Patient with cerebral palsy, mild intellectual disability, schizophrenia, nonverbal at baseline according the chart -patient on risperidone, will restart prior to extubation as she is currently sedated and intubated (6) Anemia: Code(s): D64.9 - Anemia, unspecified Status: Acute Assessment and Plan: Patient admitted with a hemoglobin of 10.3 on 01/31 -02/01: Hemoglobin dropped to 7.7, a repeat CBC was done which showed a hemoglobin of 7.3 -will check stools for occult blood, -folic acid and vitamin B12 level within normal limits -low iron levels, low TIBC, will give Venofer -LDH is normal, haptoglobin is pending -Protonix IV q.12 hours -continue to monitor (7) Electrolyte imbalance: Code(s): E87.8 - Other disorders of electrolyte and fluid balance, not elsewhere classified Status: Acute Assessment and Plan: Hypernatremia, will increase tube feed flushes, continue to monitor Plan DVT prophylaxis: SCDs. Hold Lovenox due to significant drop in hemoglobin Stress ulcer prophylaxis: Protonix IV q.12 hours Nutrition: Tolerating tube feeds, patient on stool softener and MiraLax Code Status: Full -patient is a guardian/bear of the state ([place]) Critical Care Time Spent: 32minutes Due to a high probability of clinically significant, life threatening deterioration, the patient required my highest level of preparedness to intervene emergently and I personally spent this critical care time directly and personally managing the patient. This critical care time included obtaining a history; examining the patient; pulse oximetry; ordering and review of studies; arranging urgent treatment with development of a management plan; evaluation of patient's response to treatment; frequent reassessment; and discussions with other providers. It was exclusive of separately billable procedures and treating other patients and teaching time. Please see Assessment and Plan section and the rest of the note for further information on patient assessment and treatment This dictation may have been done utilizing a voice recognition system. Attempts have been made to correct errors. However, there may be uncorrected grammatical, spelling, and recognitions errors present. Subjective Date/time seen: 02/03/25 13:12 Interval history: Reason for consult: Acute respiratory failure, pneumonia, altered mental status, unresponsiveness, anemia 02/04/2024: Patient seen and examined the ICU, remains intubated on CMV mode of ventilation, peep of 5, 35% FiO2, sedated with fentanyl and Versed infusion. Urine output has been adequate, patient is afebrile. Does not open her eyes or follow simple commands. LFTs trending down. Sodium down to 147. Hemoglobin stable at 7.3 Review of Systems Review of Systems: ROS unobtainable: Yes unobtainable due to endotracheal tube, unobtainable due to medical condition and unobtainable due to mental status Exam Narrative: General: Petite female/malnourished, in no acute distress HEENT:? Pupils are pinpoint, sluggish, ETT in place Neck:? Supple Respiratory:? Coarse breath sounds bilaterally, rales on right base, no wheezing, adequate air entry otherwise Cardiac:? S1-S2 normal, regular rate and rhythm Abdomen:? Soft, nontender, nondistended, hypoactive bowel sounds Extremities:? Trace edema, bilateral pedal pulses are palpable Neuro:? Intubated, sedated, does not open her eyes or follow simple commands Skin:? No skin lesions noted Psych:? Unable to assess at this time Objective Data Vital Signs Vital Signs: Vital Signs - 24 hr 02/02/25 14:00 02/02/25 14:00 02/02/25 14:00 Temperature 99.3 F Pulse Rate 124 H 124 H 130 H Respiratory Rate 22 H 22 H Blood Pressure 115/69 Pulse Oximetry 100 Oxygen Delivery Fraction of Inspired Oxygen 02/02/25 14:36 02/02/25 14:38 02/02/25 14:40 Temperature Pulse Rate 120 H 114 H 125 H Respiratory Rate 22 H 22 H Blood Pressure Pulse Oximetry 100 Oxygen Delivery Mechanical Ventilation Fraction of Inspired Oxygen 35 02/02/25 14:51 02/02/25 16:00 02/02/25 16:00 Temperature Pulse Rate 126 H 116 H 116 H Respiratory Rate 22 H 22 H Blood Pressure Pulse Oximetry 100 Oxygen Delivery Mechanical Ventilation Fraction of Inspired Oxygen 35 02/02/25 16:00 02/02/25 16:00 02/02/25 16:00 Temperature 100 F H Pulse Rate 116 H 130 H Respiratory Rate 22 H 22 H Blood Pressure 119/70 Pulse Oximetry 100 Oxygen Delivery Fraction of Inspired Oxygen 35 02/02/25 16:00 02/02/25 16:58 02/02/25 18:00 Temperature Pulse Rate 130 H 121 H 113 H Respiratory Rate 22 H Blood Pressure Pulse Oximetry 100 Oxygen Delivery Mechanical Ventilation Fraction of Inspired Oxygen 35 02/02/25 18:00 02/02/25 20:00 02/02/25 20:00 Temperature 99.4 F Pulse Rate 114 H 112 H 112 H Respiratory Rate 22 H 22 H 22 H Blood Pressure 110/70 Pulse Oximetry 100 Oxygen Delivery Fraction of Inspired Oxygen 02/02/25 20:00 02/02/25 20:00 02/02/25 20:00 Temperature 99.2 F Pulse Rate 113 H 116 H Respiratory Rate 22 H Blood Pressure 105/68 Pulse Oximetry 100 Oxygen Delivery Fraction of Inspired Oxygen 35 02/02/25 20:00 02/02/25 21:07 02/02/25 21:13 Temperature Pulse Rate 122 H 123 H Respiratory Rate 22 H 22 H Blood Pressure Pulse Oximetry 100 100 Oxygen Delivery Mechanical Ventilation Mechanical Ventilation Fraction of Inspired Oxygen 35 35 02/02/25 21:14 02/02/25 22:00 02/02/25 22:00 Temperature Pulse Rate 123 H 121 H 121 H Respiratory Rate 22 H 22 H 22 H Blood Pressure Pulse Oximetry Oxygen Delivery Fraction of Inspired Oxygen 02/02/25 22:00 02/02/25 22:00 02/02/25 22:00 Temperature 99.8 F H Pulse Rate 121 H 121 H 121 H Respiratory Rate 22 H 22 H Blood Pressure 120/77 120/77 Pulse Oximetry 100 100 Oxygen Delivery Fraction of Inspired Oxygen 02/02/25 23:03 02/03/25 00:00 02/03/25 00:00 Temperature Pulse Rate 121 H 120 H Respiratory Rate 22 H Blood Pressure 127/77 Pulse Oximetry 100 100 Oxygen Delivery Mechanical Ventilation Fraction of Inspired Oxygen 35 35 02/03/25 00:00 02/03/25 00:00 02/03/25 00:00 Temperature Pulse Rate 123 H 120 H 120 H Respiratory Rate 22 H 22 H Blood Pressure Pulse Oximetry Oxygen Delivery Fraction of Inspired Oxygen 02/03/25 00:00 02/03/25 02:00 02/03/25 02:00 Temperature 99.6 F Pulse Rate 118 H 118 H Respiratory Rate 22 H 22 H Blood Pressure 115/66 Pulse Oximetry 100 100 Oxygen Delivery Mechanical Ventilation Fraction of Inspired Oxygen 35 02/03/25 02:00 02/03/25 02:00 02/03/25 02:22 Temperature Pulse Rate 118 H 118 H 115 H Respiratory Rate 22 H 22 H Blood Pressure Pulse Oximetry 100 Oxygen Delivery Mechanical Ventilation Fraction of Inspired Oxygen 35 02/03/25 02:52 02/03/25 04:00 02/03/25 04:00 Temperature Pulse Rate 113 H 117 H 117 H Respiratory Rate 22 H 22 H 22 H Blood Pressure Pulse Oximetry Oxygen Delivery Fraction of Inspired Oxygen 02/03/25 04:00 02/03/25 04:00 02/03/25 04:00 Temperature Pulse Rate 117 H 116 H Respiratory Rate 22 H 22 H Blood Pressure 128/85 Pulse Oximetry 100 Oxygen Delivery Fraction of Inspired Oxygen 35 02/03/25 04:00 02/03/25 04:00 02/03/25 05:05 Temperature Pulse Rate 118 H 120 H Respiratory Rate 22 H Blood Pressure Pulse Oximetry 100 100 Oxygen Delivery Mechanical Ventilation Mechanical Ventilation Fraction of Inspired Oxygen 35 35 02/03/25 06:00 02/03/25 06:00 02/03/25 06:00 Temperature Pulse Rate 123 H 123 H 123 H Respiratory Rate 20 22 H 22 H Blood Pressure 134/84 Pulse Oximetry 100 Oxygen Delivery Fraction of Inspired Oxygen 02/03/25 06:00 02/03/25 08:00 02/03/25 08:00 Temperature 98.7 F Pulse Rate 123 H 113 H 112 H Respiratory Rate 22 H Blood Pressure 122/77 Pulse Oximetry 100 Oxygen Delivery Fraction of Inspired Oxygen 02/03/25 08:00 02/03/25 08:00 02/03/25 08:38 Temperature Pulse Rate 124 H Respiratory Rate Blood Pressure Pulse Oximetry 100 100 Oxygen Delivery Mechanical Ventilation Mechanical Ventilation Fraction of Inspired Oxygen 30 30 30 02/03/25 08:38 02/03/25 08:58 02/03/25 09:41 Temperature Pulse Rate 124 H 123 H 113 H Respiratory Rate 22 H 22 H 22 H Blood Pressure Pulse Oximetry Oxygen Delivery Fraction of Inspired Oxygen 02/03/25 10:00 02/03/25 10:00 02/03/25 11:11 Temperature 98.9 F Pulse Rate 112 H 113 H 113 H Respiratory Rate 22 H 22 H Blood Pressure 120/78 Pulse Oximetry 100 Oxygen Delivery Fraction of Inspired Oxygen 02/03/25 11:48 02/03/25 12:00 02/03/25 12:00 Temperature Pulse Rate 114 H Respiratory Rate Blood Pressure Pulse Oximetry 100 100 Oxygen Delivery Mechanical Ventilation Mechanical Ventilation Fraction of Inspired Oxygen 30 30 30 02/03/25 12:00 02/03/25 12:00 Temperature 98.8 F Pulse Rate 113 H 113 H Respiratory Rate 22 H Blood Pressure 118/74 Pulse Oximetry 100 Oxygen Delivery Fraction of Inspired Oxygen Intake/Output Intake/Output: Intake & Output 01/31/25 02/01/25 02/02/25 02/03/25 23:59 23:59 23:59 23:59 Intake Total 664.9 6760.2 1980.1 1010.8 Output Total 2600 1200 750 Balance 664.9 4160.2 780.1 260.8 Meds/Results Medications: Active Medications Generic Name Dose Route Start Last Admin Trade Name Freq PRN Reason Stop Dose Admin Acetylcysteine 200 mg 02/01/25 09:10 02/03/25 08:39 Acetylcysteine 20% Inhal Soln 800 Mg/4 Ml Vial INHALATION 200 mg Q6HRT HAIM Administration Albuterol/Ipratropium 3 ml 02/01/25 09:10 02/03/25 08:38 Ipratropium 0.5 Mg/Albuterol Sulfate 2.5 Mg Ampul.Neb 3 Ml INHALATION 3 ml Q6HRT HAIM Administration Dextrose 12.5 gm 02/01/25 07:23 Dextrose 50% 25 Gm/50 Ml Syringe IV PUSH PRN PRN Hypoglycemia Protocol Diphenhydramine HCl 25 mg 01/31/25 21:37 Diphenhydramine Hcl Inj 50 Mg/Ml Vial IV PUSH Q5M PRN Allergic Reaction Docusate Sodium 100 mg 02/01/25 09:40 02/03/25 08:19 Docusate Sodium Liq 100 Mg/10 Ml Udc PO 100 mg Q12HR HAIM Administration Glucagon 1 mg 02/01/25 07:23 Glucagon For Inj 1 Mg Vial IM PRN PRN Hypoglycemia Protocol Glucose 15 gm 02/01/25 07:23 Glucose Oral Gel 15 Gm Of Glucse In 37.5 Gm Tube PO PRN PRN Hypoglycemia Protocol Azithromycin 500 mg in 250 mls @ 250 mls/hr 01/31/25 20:00 02/02/25 21:10 Zithromax IVPB 02/04/25 23:59 Infused Q24H HAIM Infusion Piperacillin Sod/Tazobactam Sod 4.5 gm in 100 mls @ 200 mls/hr 01/31/25 23:00 02/03/25 12:21 Zosyn 4.5 Gm/Ns 100 Ml IVPB 200 mls/hr Q6HR HAIM Administration Dextrose 1,000 mls @ 100 mls/hr 02/01/25 07:23 Dextrose 5% 1,000 Ml IVPB PRN PRN Hypoglycemia Protocol Fentanyl Citrate 2,500 mcg in 250 mls @ 10 mls/hr 02/01/25 16:15 02/03/25 06:00 Fentanyl 2,500 Mcg/Ns 250 Ml IV CONT 100 mcg/hr .Q25H HAIM 10 mls/hr Infusion 100 MCG/HR Midazolam HCl 100 mg in 100 mls @ 3 mls/hr 02/01/25 16:15 02/03/25 11:11 Versed 100 Mg/Ns 100 Ml IV CONT 3 mg/hr .[id number] HAIM 3 mls/hr Administration 3 MG/HR Iron Sucrose 200 mg/ Sodium 110 mls @ 220 mls/hr 02/03/25 10:30 02/03/25 11:13 Chloride IVPB 02/05/25 09:29 220 mls/hr DAILY HAIM Administration Insulin Aspart 3 - 6 units 02/01/25 12:00 02/03/25 12:24 Insulin Aspart (*Bkc) 100 Units/Ml SUB-Q Not Given Q6HR HAIM Protocol Multi-Ingred Cream/Lotion/Oil/Oint 1 applic 02/01/25 21:00 02/03/25 08:19 Mineral Oil/White Petrolatum Ointment EACH EYE 1 applic Q12HR HAIM Administration Ondansetron HCl 4 mg 01/31/25 16:00 Ondansetron Inj 4 Mg/2 Ml Vial IV PUSH Q4H PRN Nausea Pantoprazole Sodium 40 mg 02/01/25 09:00 02/03/25 08:19 Pantoprazole Sodium Iv 40 Mg Vial IV PUSH 40 mg Q12HR HAIM Administration Perflutren Lipid Microsphere 0 ml 02/02/25 07:32 Perflutren Lipid Microspheres 1.5 Ml Vial Diluted To 10 Ml Total Volume IV PUSH 02/05/25 07:32 ONCE PRN adequate visualization Protocol Polyethylene Glycol 17 gm 02/01/25 09:25 02/03/25 08:19 Polyethylene Glycol 3350 17 Gm Powd.Pack PO 17 gm QAM HAIM Administration Sodium Chloride 10 ml 02/01/25 14:00 02/03/25 06:00 Central Line Flush IV PUSH 10 ml Q8HR HAIM Administration Sodium Chloride 20 ml 02/01/25 06:37 Central Line Flush IV PUSH PRN PRN after blood draws Radiology Results: ITS Impressions Head CT 01/31/25 15:47 Impression: No acute intracranial hemorrhage or suspicious mass effect. Chest/Abdomen/Pelvis CTA 01/31/25 15:49 IMPRESSION: Right middle and lower lobe pneumonia with dense consolidation. Left basilar atelectasis. No pulmonary embolus. No aortic dissection. Oral contrast opacifies the entirety of the colon. Supportive lines in good position. No acute pathology within the remainder of the examination, as detailed above. Abdomen X-Ray 01/31/25 21:20 IMPRESSION: Orogastric tube in good position and ready for immediate use. Chest X-Ray 02/03/25 06:27 Impression: 1: Persistent mild interstitial edema with layering right pleural effusion. Labs Labs: Laboratory Results - last 24 hr 02/01/25 02/02/25 02/03/25 09:13 17:56 00:04 WBC RBC Hgb Hct MCV MCH MCHC RDW Plt Count MPV Immature Gran % (Auto) Neut % (Auto) Lymph % (Auto) [place] % (Auto) Eos % (Auto) Baso % (Auto) Lymph # (Auto) [place] # (Auto) Eos # (Auto) Baso # (Auto) Abs Immat Gran (auto) Absolute Neuts (auto) Absolute Nucleated RBC Nucleated RBC % Haptoglobin 129 Puncture Site ABG pH ABG pCO2 ABG pO2 ABG PO2/FiO2 Ratio ABG HCO3 ABG O2 Saturation ABG O2 Content ABG Base Excess A-a Gradient Oxyhemoglobin Total Hemoglobin O2 Delivery Device O2 Liters/Min Minute Volume Vent Rate Vent Mode FiO2 Tidal Volume PEEP Peak Inspir Pressure Pressure Support Sodium Potassium Chloride Carbon Dioxide Anion Gap BUN Creatinine Estim Creat Clear Calc Estimated GFR Glucose POC Capillary Glucose 111 H 104 Lactic Acid Calcium Phosphorus Magnesium Total Bilirubin AST ALT Alkaline Phosphatase Total Protein Albumin 02/03/25 02/03/2502/03/25 04:56 05:23 11:56 WBC 10.3 H RBC 2.52 L Hgb 7.3 L Hct 23.2 L MCV 92.1 MCH 29.0 MCHC 31.5 L RDW 15.6 H Plt Count 203 MPV 11.2 H Immature Gran % (Auto) 0.7 H Neut % (Auto) 79.8 H Lymph % (Auto) 11.6 L [place] % (Auto) 7.8 Eos % (Auto) 0.0 Baso % (Auto) 0.1 L Lymph # (Auto) 1.19 [place] # (Auto) 0.8 H Eos # (Auto) 0.0 Baso # (Auto) 0.0 Abs Immat Gran (auto) 0.07 H Absolute Neuts (auto) 8.2 H Absolute Nucleated RBC 0.000 Nucleated RBC % 0.0 Haptoglobin Puncture Site Right brachial ABG pH 7.470 H ABG pCO2 50.2 H ABG pO2 103.3 H ABG PO2/FiO2 Ratio 2.95 ABG HCO3 35.7 H ABG O2 Saturation 97.9 ABG O2 Content 13.9 L ABG Base Excess 10.7 A-a Gradient 87.9 Oxyhemoglobin 97.4 Total Hemoglobin 10.0 L O2 Delivery Device Ventilator O2 Liters/Min Not Reportable Minute Volume Not Reportable Vent Rate 22 Vent Mode Cmv FiO2 35 Tidal Volume 320 PEEP 8 Peak Inspir Pressure Not Reportable Pressure Support Not Reportable Sodium 147 H Potassium 3.1 L Chloride 106 Carbon Dioxide 36 H Anion Gap 5 BUN 13 Creatinine 0.62 L Estim Creat Clear Calc 49 Estimated GFR > 60 Glucose 119 H POC Capillary Glucose 116 H Lactic Acid 0.7 Calcium 9.0 Phosphorus 2.8 Magnesium 2.2 Total Bilirubin 0.7 AST 29 ALT 40 H Alkaline Phosphatase 69 Total Protein 6.0 L Albumin 3.5 Quality VTE Prophylaxis VTE prophylaxis: mechanical ordered
[2025-02-03 17:18] LABS: Glucose Point of Care 104 mg/dl (65-105)
[2025-02-03] MEDS: AZITHROMYCIN 500 MG/NS 250 ML 500 MG/250 ML BAG 250 MG IVPB (20:02)
[2025-02-03] MEDS: ACETAMINOPHEN ELIXIR 325 MG/10.15 ML UDC 650 MG PO (22:53)
[2025-02-04] VITALS (38 sets, daily range): BP systolic 101–166; BP diastolic 58–107; PULSE 107–150; RESP 20–30; TEMP 37.1–38.3; O2SAT 100
[2025-02-04] MEDS: PIPERACILLIN/TAZ 4.5G/NS 100ML 4.5 GM/100 ML BAG IVPB ×4 (00:28→18:10)
[2025-02-04 00:34] LABS: Glucose Point of Care 110 mg/dl (65-105)
--- NOTE | 2025-02-04 01:07 | ECG_ITS ---
Test Date: 2025-02-04 01:16:31 Measurements Intervals [place] Rate: 153 P: 26 [place]: 129 QRS: -34 QRSD: 78 T: 121 QT: 235 QTc: 375 Interpretive Statements SINUS TACHYCARDIA MARKED LEFT AXIS DEVIATION [QRS AXIS < -30] LEFT VENTRICULAR HYPERTROPHY AND ST-T CHANGE [VOLTAGE CRITERIA PLUS ST/T ABNORMALITY] Compared to ECG 01/31/2025 15:15:56 HEART RATE FASTER NOW Electronically Signed On 02-04-2025 13:31:16 CDT by Corky Pennington M.D.
[2025-02-04] MEDS: IPRATROPIUM 0.5 MG/ALBUTEROL SULFATE 2.5 MG AMPUL.NEB 3 ML INHALATION (02:07)
[2025-02-04] MEDS: ACETYLCYSTEINE 20% INHAL SOLN 800 MG/4 ML VIAL 200 MG INHALATION (02:08)
[2025-02-04] MEDS: FENTANYL 2,500MCG/NS250ML(*CRX 2,500 MCG/250 ML BAG 10 MCG IV CONT (02:49)
--- NOTE | 2025-02-04 03:11 | ECG_ITS ---
Test Date: 2025-02-04 03:15:02 Measurements Intervals [place] Rate: 172 P: 0 [place]: 0 QRS: -33 QRSD: 76 T: 73 QT: 269 QTc: 456 Interpretive Statements SUPRAVENTRICULAR TACHYCARDIA MARKED LEFT AXIS DEVIATION [QRS AXIS < -30] LEFT VENTRICULAR HYPERTROPHY AND ST-T CHANGE [VOLTAGE CRITERIA PLUS ST/T ABNORMALITY] NONSPECIFIC ST & T-WAVE ABNORMALITY Compared to ECG 02/04/2025 03:14:24 NO SIGNFIICANT CHANGES Electronically Signed On 02-04-2025 13:33:00 CDT by Corky Pennington M.D.
--- NOTE | 2025-02-04 03:14 | ECG_ITS ---
Test Date: 2025-02-04 03:14:24 Measurements Intervals [place] Rate: 173 P: 0 DC: 0 QRS: -33 QRSD: 79 T: 70 QT: 274 QTc: 465 Interpretive Statements SUPRAVENTRICULAR TACHYCARDIA MARKED LEFT AXIS DEVIATION [QRS AXIS < -30] MODERATE VOLTAGE CRITERIA FOR LVH, CONSIDER NORMAL VARIANT [MEETS CRITERIA IN ONE OF: R(aVL), S(V1), R(V5), R(V5/V6)+S(V1)] NONSPECIFIC ST & T-WAVE ABNORMALITY Compared to ECG 02/04/2025 01:16:31 SUPRAVENTRICULAR TACHYCARDIA NOW PRESENT Electronically Signed On 02-04-2025 13:32:39 CDT by Corky Pennington M.D.
[2025-02-04 03:42] LABS: Hematocrit 22.3 % (37.0-47.0); Hemoglobin 7.1 g/dL (12.0-15.0); Immature Granulocyte Absolute 0.04 K/mm3 (0.00-0.031); Immature Granulocyte Percent A 0.4 % (0-0.5); Lymphocytes Absolute Auto 1.58 K/mm3 (0.9-3.2); Mean Corpuscular HGB Conc 31.8 g/dl (32-36); Mean Corpuscular Hemoglobin 29.1 pg (26-34); Mean Corpuscular Volume 91.4 fl (80-100); Mean Platelet Volume 10.8 fl (7.4-10.4); Monocytes Absolute Auto 0.9 K/mm3 (0.1-0.6); Monocytes Percent Auto 9.2 % (2.6-8.5); Neutrophils Absolute Auto 7.4 K/mm3 (1.3-6.7); Neutrophils Percent Auto 74.4 % (45.5-73.1); Platelet Count Result 204 k/mm3 (150-375); Red Blood Count 2.44 M/mm3 (4.2-5.4); Red Cell Distribution Width 15.8 % (11.5-14.5); White Blood Count 9.9 K/mm3 (4.5-10.0)
[2025-02-04 03:56] LABS: Partial Thromboplastin Time 38.5 Seconds (22.3-36.8)
[2025-02-04 03:58] LABS: Alanine Aminotransferase 32 U/L (6-35); Albumin Level 3.3 g/dL (3.5-5.1); Alkaline Phosphatase 70 U/L (38-126); Anion Gap 8 mmol/L (4-12); Aspartate Amino Transferase 27 U/L (14-36); Bilirubin,Total 0.8 mg/dL (0.2-1.3); Blood Urea Nitrogen 15 mg/dL (7-17); Calcium 8.9 mg/dL (8.4-10.2); Carbon Dioxide 32 mmol/L (22-30); Chloride 105 mmol/L (98-107); Estimated CRCL calculation 55 ml/min; Estimated Glomerular Filt Rate > 60; Glucose 125 mg/dL (65-110); Magnesium 2.2 mg/dL (1.6-2.3); Phosphorus 2.5 mg/dL (2.5-4.5); Sodium 145 mmol/L (137-145)
[2025-02-04 04:40] LABS: Alveolar/Arterial O2 Gradient 113.7 mmHg; Base Excess ABG 8.8 mEq/l (+/-2.0); Fractional Inspired Oxygen 30 %; HCO3 ABG 31.6 mEq/l (22.0-26.0); Oxygen Content ABG 9.9 %vol (16.0-22.0); Oxygen Saturation ABG 93.8 % (95.0-100.0); Oxyhemoglobin 91.7 % THb (90.0-100.0); PCO2 ABG 35.4 mmHg (35.0-45.0); PO2 ABG 58.6 mmHg (80.0-100.0); PO2 FiO2 Ratio Arterial Blood 1.95 %
[2025-02-04 04:46] LABS: Device VENTILATOR; Modified Allen's Test Pass; Site Drawn RIGHT RADIAL; Total Hemoglobin 7.6 g/dL (12.0-18.0); pH ABG 7.568 (7.350-7.450)
[2025-02-04 04:47] LABS: Arterial Blood Gas PEEP 5 cmH2O; Arterial Blood Gas Tidal Volume 320 ml; Arterial Blood Gas Vent Mode CMV; Arterial Blood Gas Ventilator rate 22 /MIN
[2025-02-04] MEDS: METOPROLOL TARTRATE INJ 5 MG/5 ML VIAL IV PUSH (04:58)
[2025-02-04] MEDS: KCL 40 MEQ/WATER 100 ML 100 ML 25 ML IVPB (05:01)
[2025-02-04 06:10] LABS: Glucose Point of Care 102 mg/dl (65-105)
[2025-02-04] MEDS: CENTRAL LINE FLUSH 10 ML IV PUSH ×3 (06:37→20:44)
--- NOTE | 2025-02-04 07:43 | ECG_ITS ---
Test Date: 2025-02-04 08:02:33 Measurements Intervals [place] Rate: 135 P: 22 CT: 118 QRS: -24 QRSD: 85 T: 75 QT: 298 QTc: 447 Interpretive Statements SINUS TACHYCARDIA BORDERLINE LEFT AXIS DEVIATION [QRS AXIS < -20] MODERATE VOLTAGE CRITERIA FOR LVH, CONSIDER NORMAL VARIANT [MEETS CRITERIA IN ONE OF: R(aVL), S(V1), R(V5), R(V5/V6)+S(V1)] NONSPECIFIC T-WAVE ABNORMALITY ABNORMAL RHYTHM ECG Compared to ECG 02/04/2025 03:15:02 Supraventricular tachycardia no longer present Electronically Signed On 02-04-2025 13:34:17 CDT by Corky Pennington M.D.
[2025-02-04] MEDS: PANTOPRAZOLE SODIUM IV 40 MG VIAL IV PUSH ×2 (08:19→20:43)
[2025-02-04] MEDS: FUROSEMIDE INJ 40 MG/4 ML VIAL IV PUSH (08:20)
[2025-02-04] MEDS: POTASSIUM CHLORIDE 20 MEQ PACKET (FOR LIQUID) PO (08:25)
[2025-02-04] MEDS: LACTULOSE 20 GM/30 ML UDC PO ×2 (08:25→17:55)
[2025-02-04] MEDS: POTASSIUM CHLORIDE 20 MEQ PACKET (FOR LIQUID) 40 MEQ PO (08:25)
[2025-02-04] MEDS: DOCUSATE SODIUM LIQ 100 MG/10 ML UDC PO ×2 (08:25→20:42)
[2025-02-04] MEDS: METOPROLOL TARTRATE 25 MG TABLET PO ×2 (08:25→17:55)
[2025-02-04] MEDS: polyethylene glycoL 3350 17 GM POWD.PACK PO (08:26)
[2025-02-04] MEDS: MINERAL OIL/WHITE PETROLATUM OINTMENT 1 APPLIC EACH EYE ×2 (08:26→20:43)
--- NOTE | 2025-02-04 08:31 | WPDINTPN ---
Progress Note: A&P Assessment and Plan (1) Acute hypoxic respiratory failure: Code(s): J96.01 - Acute respiratory failure with hypoxia Status: Acute Assessment and Plan: 01/31/2025: Patient presented from [facility] with hypoxia, periods of apnea, and unresponsiveness. She was brought to the ED being bagged, she did not have a gag and was unresponsive in the ED so was intubated upon arrival to the ED. central line was also inserted as she was hypotensive -chest x-ray showed right lower lobe pneumonia/consolidate -currently on CMV mode of ventilation, peep of 5 and 40% FiO2 -ABGs and chest x-ray reviewed, ventilator adjusted -continue bronchodilators and Mucomyst nebulizer -sedated with fentanyl and Versed infusion, maintain RASS of 0 to -2, daily SBT and SAT (2) AMS (altered mental status): Qualifiers: Altered mental status type: unspecified Qualified Code(s): R41.82 - Altered mental status, unspecified Code(s): R41.82 - Altered mental status, unspecified Status: Acute Assessment and Plan: Encephalopathy could be related to hypoxia, hypercapnia, pneumonia/infection/hypotension, could be related to medication -currently intubated, sedated -will wean sedation , to evaluate neurological status (3) Pneumonia: Qualifiers: Pneumonia type: due to unspecified organism Laterality: right Lung location: unspecified part of lung Qualified Code(s): J18.9 - Pneumonia, unspecified organism Code(s): J18.9 - Pneumonia, unspecified organism Status: Acute Assessment and Plan: Chest x-ray and CTA chest show right lower lobe consolidation -according the [facility] records: Repeat CT chest showed interval development of new airspace opacities raising concern for aspiration pneumonia. She was transition to Zosyn from cefepime. MBS performed on 01/26 at [facility] which showed no evidence of aspiration despite coughing especially with swallowing. -continue Zosyn, azithromycin (01/31) -MRSA screen is negative, vancomycin discontinued (02/01) (4) Sepsis: Code(s): A41.9 - Sepsis, unspecified organism Status: Acute Assessment and Plan: Patient presented with altered mental status, hypoxia, apnea, pneumonia. -lactic acid was normal -blood pressures are borderline -patient was adequately fluid-resuscitated -status post albumin for volume expansion -off Levophed, -continue to monitor urine output and renal function (5) Cerebral palsy: Code(s): G80.9 - Cerebral palsy, unspecified Status: Acute Assessment and Plan: Patient with cerebral palsy, mild intellectual disability, schizophrenia, nonverbal at baseline according the chart -patient on risperidone, will restart prior to extubation as she is currently sedated and intubated (6) Anemia: Code(s): D64.9 - Anemia, unspecified Status: Acute Assessment and Plan: Patient admitted with a hemoglobin of 10.3 on 01/31 -02/01: Hemoglobin dropped to 7.7, a repeat CBC was done which showed a hemoglobin of 7.3 -will check stools for occult blood, -folic acid and vitamin B12 level within normal limits -low iron levels, low TIBC, will give Venofer -LDH is normal, haptoglobin is pending -Protonix IV q.12 hours -continue to monitor (7) Electrolyte imbalance: Code(s): E87.8 - Other disorders of electrolyte and fluid balance, not elsewhere classified Status: Acute Assessment and Plan: Hypernatremia, improving, sodium level of 145 this morning (8) Sinus tachycardia: Code(s): R00.0 - Tachycardia, unspecified Status: Acute Assessment and Plan: 02/04: Patient developed SVT/sinus tachycardia overnight with rates in the 180-200s. Was given IV metoprolol x1 with improvement which brought her rate start to 130s. -could be multifactorial, related to sepsis, anemia, coronary artery disease -will restart patient's home a metoprolol -repeat EKG showed sinus tachycardia -troponin has been ordered and pending -will consult Cardiology 02/02/2025: Echocardiogram Summary 1. Complete two-dimensional, color flow and Doppler transthoracic echocardiogram is performed. 2. Left ventricular chamber dimension is normal. 3. Left ventricular systolic function is normal, estimated at 60-65%. 4. The left ventricular diastolic function is grade I diastolic dysfunction. 5. E/e' 7 is not elevated. 6. There is mild aortic valve sclerosis. 7. There is trace tricuspid valve regurgitation. 8. Mild pulmonary hypertension, estimated pulmonary arterial systolic pressure is 41 mmHg. (9) Constipation: Code(s): K59.00 - Constipation, unspecified Status: Acute Assessment and Plan: 02/04: KUB showed moderate fecal retention -patient already on docusate sodium and senna and MiraLax -will add lactulose and soapsuds enema Plan DVT prophylaxis: SCDs. Hold Lovenox due to significant drop in hemoglobin Stress ulcer prophylaxis: Protonix IV q.12 hours Nutrition: Tolerating tube feeds, patient on stool softener and MiraLax Code Status: Full -patient is a guardian/bear of the state ([place]) Critical Care Time Spent: 33 minutes Due to a high probability of clinically significant, life threatening deterioration, the patient required my highest level of preparedness to intervene emergently and I personally spent this critical care time directly and personally managing the patient. This critical care time included obtaining a history; examining the patient; pulse oximetry; ordering and review of studies; arranging urgent treatment with development of a management plan; evaluation of patient's response to treatment; frequent reassessment; and discussions with other providers. It was exclusive of separately billable procedures and treating other patients and teaching time. Please see Assessment and Plan section and the rest of the note for further information on patient assessment and treatment This dictation may have been done utilizing a voice recognition system. Attempts have been made to correct errors. However, there may be uncorrected grammatical, spelling, and recognitions errors present. Subjective Date/time seen: 02/04/25 08:31 Interval history: Reason for consult: Acute respiratory failure, pneumonia, altered mental status, unresponsiveness, anemia 02/04/2025: Patient seen and examined the ICU, remains intubated on CMV mode of ventilation, peep 5, 30% FiO2 FiO2. Sedated with fentanyl and Versed infusion. Does not open eyes or follow simple commands. Urine output has been good, febrile with a T-max of 101.0 F a 58 hemodynamically stable. Sodium levels are down to 145. Hemoglobin stable at 7.1. Patient waited to SVT overnight with rates of 180s to 200s. Was given metoprolol with improvement, currently rates in the 130s. EKG showed sinus tachycardia. Had LFTs a a normal, lactic acid is 2.0, TSH within normal limits. Potassium was 3.0 this is being replaced Review of Systems Review of Systems: ROS unobtainable: Yes unobtainable due to endotracheal tube, unobtainable due to medical condition and unobtainable due to mental status Exam Narrative: General: Petite female/malnourished, in no acute distress HEENT:? Pupils are pinpoint, sluggish, ETT in place Neck:? Supple Respiratory:? Coarse breath sounds bilaterally, rales on right base, no wheezing, adequate air entry otherwise Cardiac:? S1-S2 normal, regular rate and rhythm Abdomen:? Soft, nontender, nondistended, hypoactive bowel sounds Extremities:? Trace edema, bilateral pedal pulses are palpable Neuro:? Intubated, sedated, does not open her eyes or follow simple commands Skin:? No skin lesions noted Psych:? Unable to assess at this time Objective Data Vital Signs Vital Signs: Vital Signs - 24 hr 02/03/25 08:38 02/03/25 08:38 02/03/25 08:58 Temperature Pulse Rate 124 H 124 H 123 H Respiratory Rate 22 H 22 H Blood Pressure Pulse Oximetry 100 Oxygen Delivery Mechanical Ventilation Fraction of Inspired Oxygen 30 02/03/25 09:41 02/03/25 10:00 02/03/25 10:00 Temperature 98.9 F Pulse Rate 113 H 112 H 113 H Respiratory Rate 22 H 22 H Blood Pressure 120/78 Pulse Oximetry 100 Oxygen Delivery Fraction of Inspired Oxygen 02/03/25 10:00 02/03/25 11:11 02/03/25 11:48 Temperature Pulse Rate 114 H 113 H 114 H Respiratory Rate 22 H 22 H Blood Pressure Pulse Oximetry 100 Oxygen Delivery Mechanical Ventilation Fraction of Inspired Oxygen 30 02/03/25 12:00 02/03/25 12:00 02/03/25 12:00 Temperature Pulse Rate 113 H Respiratory Rate Blood Pressure Pulse Oximetry 100 Oxygen Delivery Mechanical Ventilation Fraction of Inspired Oxygen 30 30 02/03/25 12:00 02/03/25 12:00 02/03/25 12:00 Temperature 98.8 F Pulse Rate 113 H 112 H 112 H Respiratory Rate 22 H 22 H 22 H Blood Pressure 118/74 Pulse Oximetry 100 Oxygen Delivery Fraction of Inspired Oxygen 02/03/25 14:00 02/03/25 14:00 02/03/25 14:00 Temperature 98.5 F Pulse Rate 112 H 112 H 112 H Respiratory Rate 22 H 22 H 22 H Blood Pressure 120/73 Pulse Oximetry 100 Oxygen Delivery Fraction of Inspired Oxygen 02/03/25 14:00 02/03/25 15:11 02/03/25 15:11 Temperature Pulse Rate 114 H 114 H 114 H Respiratory Rate 22 H Blood Pressure Pulse Oximetry 100 Oxygen Delivery Mechanical Ventilation Fraction of Inspired Oxygen 30 02/03/25 15:18 02/03/25 16:00 02/03/25 16:00 Temperature Pulse Rate 123 H Respiratory Rate 22 H Blood Pressure Pulse Oximetry 100 Oxygen Delivery Mechanical Ventilation Fraction of Inspired Oxygen 30 30 02/03/25 16:00 02/03/25 16:00 02/03/25 16:00 Temperature 98.7 F Pulse Rate 124 H 124 H 120 H Respiratory Rate 22 H 22 H Blood Pressure 127/80 Pulse Oximetry 100 Oxygen Delivery Fraction of Inspired Oxygen 02/03/25 16:00 02/03/25 16:02 02/03/25 18:00 Temperature Pulse Rate 120 H 123 H 120 H Respiratory Rate 22 H Blood Pressure Pulse Oximetry 100 Oxygen Delivery Mechanical Ventilation Fraction of Inspired Oxygen 30 02/03/25 18:00 02/03/25 18:00 02/03/25 18:00 Temperature Pulse Rate 119 H 120 H 120 H Respiratory Rate 22 H 22 H 22 H Blood Pressure 110/61 Pulse Oximetry 100 Oxygen Delivery Fraction of Inspired Oxygen 02/03/25 20:00 02/03/25 20:00 02/03/25 20:00 Temperature 98.6 F Pulse Rate 123 H 123 H 123 H Respiratory Rate 21 H 21 H 21 H Blood Pressure 126/86 Pulse Oximetry 100 Oxygen Delivery Fraction of Inspired Oxygen 02/03/25 20:00 02/03/25 20:00 02/03/25 20:00 Temperature Pulse Rate 124 H Respiratory Rate Blood Pressure Pulse Oximetry 100 Oxygen Delivery Mechanical Ventilation Fraction of Inspired Oxygen 30 30 02/03/25 20:01 02/03/25 20:03 02/03/25 20:05 Temperature Pulse Rate 117 H 117 H 132 H Respiratory Rate 22 H 22 H Blood Pressure Pulse Oximetry 100 Oxygen Delivery Mechanical Ventilation Fraction of Inspired Oxygen 30 02/03/25 22:00 02/03/25 22:00 02/03/25 22:00 Temperature 100.5 F H Pulse Rate 129 H 129 H 128 H Respiratory Rate 22 H 22 H 20 Blood Pressure 123/70 Pulse Oximetry 100 Oxygen Delivery Fraction of Inspired Oxygen 02/03/25 22:00 02/03/25 22:53 02/03/25 22:57 Temperature 100.8 F H Pulse Rate 139 H 112 H Respiratory Rate Blood Pressure Pulse Oximetry 100 Oxygen Delivery Mechanical Ventilation Fraction of Inspired Oxygen 30 02/04/25 00:00 02/04/25 00:00 02/04/25 00:00 Temperature 100.9 F H Pulse Rate 139 H Respiratory Rate 28 H Blood Pressure 166/107 H Pulse Oximetry 100 100 Oxygen Delivery Mechanical Ventilation Fraction of Inspired Oxygen 30 30 02/04/25 00:00 02/04/25 00:00 02/04/25 00:00 Temperature Pulse Rate 133 H 132 H 132 H Respiratory Rate 25 H 25 H Blood Pressure Pulse Oximetry Oxygen Delivery Fraction of Inspired Oxygen 02/04/25 00:00 02/04/25 00:16 02/04/25 00:55 Temperature 100.9 F H 101 F H Pulse Rate 132 H 150 H Respiratory Rate 24 H 30 H Blood Pressure 123/88 Pulse Oximetry 100 Oxygen Delivery Fraction of Inspired Oxygen 02/04/25 02:00 02/04/25 02:00 02/04/25 02:00 Temperature Pulse Rate 145 H 145 H 145 H Respiratory Rate 26 H 26 H Blood Pressure Pulse Oximetry Oxygen Delivery Fraction of Inspired Oxygen 02/04/25 02:00 02/04/25 02:08 02/04/25 02:13 Temperature 99.1 F Pulse Rate 145 H 144 H 144 H Respiratory Rate 25 H 26 H Blood Pressure 101/58 L Pulse Oximetry 100 100 Oxygen Delivery Mechanical Ventilation Fraction of Inspired Oxygen 30 02/04/25 02:49 02/04/25 02:49 02/04/25 03:25 Temperature Pulse Rate 141 H 141 H 140 H Respiratory Rate 26 H 26 H 22 H Blood Pressure Pulse Oximetry Oxygen Delivery Fraction of Inspired Oxygen 02/04/25 04:00 02/04/25 04:00 02/04/25 04:00 Temperature 100.1 F H Pulse Rate 142 H 142 H 142 H Respiratory Rate 25 H 25 H 25 H Blood Pressure 120/72 Pulse Oximetry 100 Oxygen Delivery Fraction of Inspired Oxygen 02/04/25 04:00 02/04/25 04:00 02/04/25 04:00 Temperature Pulse Rate 143 H Respiratory Rate Blood Pressure Pulse Oximetry 100 Oxygen Delivery Mechanical Ventilation Fraction of Inspired Oxygen 30 30 02/04/25 04:51 02/04/25 04:58 02/04/25 05:08 Temperature Pulse Rate 142 H 141 H 115 H Respiratory Rate 25 H Blood Pressure Pulse Oximetry 100 Oxygen Delivery Mechanical Ventilation Fraction of Inspired Oxygen 30 02/04/25 06:00 02/04/25 06:00 02/04/25 06:00 Temperature 100.5 F H Pulse Rate 130 H 130 H 130 H Respiratory Rate 24 H 24 H Blood Pressure 110/73 Pulse Oximetry 100 Oxygen Delivery Fraction of Inspired Oxygen 02/04/25 06:00 02/04/25 08:25 Temperature Pulse Rate 130 H 133 H Respiratory Rate 24 H Blood Pressure Pulse Oximetry Oxygen Delivery Fraction of Inspired Oxygen Intake/Output Intake/Output: Intake & Output 02/01/25 02/02/25 02/03/25 02/04/25 23:59 23:59 23:59 23:59 Intake Total 6760.2 1980.1 2522.3 1056.3 Output Total 2600 1200 1250 1475 Balance 4160.2 780.1 1272.3 -418.7 Meds/Results Medications: Active Medications Generic Name Dose Route Start Last Admin Trade Name Freq PRN Reason Stop Dose Admin Acetaminophen 650 mg 02/03/25 22:36 02/03/25 22:53 Acetaminophen Elixir 325 Mg/10.15 Ml Udc PO 650 mg Q6H PRN Administration Mild Pain (1-3) or Fever Acetylcysteine 200 mg 02/01/25 09:10 02/04/25 08:20 Acetylcysteine 20% Inhal Soln 800 Mg/4 Ml Vial INHALATION Not Given Q6HRT HAIM Albuterol/Ipratropium 3 ml 02/01/25 09:10 02/04/25 08:08 Ipratropium 0.5 Mg/Albuterol Sulfate 2.5 Mg Ampul.Neb 3 Ml INHALATION Not Given Q6HRT HAIM Dextrose 12.5 gm 02/01/25 07:23 Dextrose 50% 25 Gm/50 Ml Syringe IV PUSH PRN PRN Hypoglycemia Protocol Diphenhydramine HCl 25 mg 01/31/25 21:37 Diphenhydramine Hcl Inj 50 Mg/Ml Vial IV PUSH Q5M PRN Allergic Reaction Docusate Sodium 100 mg 02/01/25 09:40 02/04/25 08:25 Docusate Sodium Liq 100 Mg/10 Ml Udc PO 100 mg Q12HR HAIM Administration Glucagon 1 mg 02/01/25 07:23 Glucagon For Inj 1 Mg Vial IM PRN PRN Hypoglycemia Protocol Glucose 15 gm 02/01/25 07:23 Glucose Oral Gel 15 Gm Of Glucse In 37.5 Gm Tube PO PRN PRN Hypoglycemia Protocol Azithromycin 500 mg in 250 mls @ 250 mls/hr 01/31/25 20:00 02/03/25 21:00 Zithromax IVPB 02/04/25 23:59 Infused Q24H HAIM Infusion Piperacillin Sod/Tazobactam Sod 4.5 gm in 100 mls @ 200 mls/hr 01/31/25 23:00 02/04/25 06:36 Zosyn 4.5 Gm/Ns 100 Ml IVPB 200 mls/hr Q6HR HAIM Administration Dextrose 1,000 mls @ 100 mls/hr 02/01/25 07:23 Dextrose 5% 1,000 Ml IVPB PRN PRN Hypoglycemia Protocol Fentanyl Citrate 2,500 mcg in 250 mls @ 10 mls/hr 02/01/25 16:15 02/04/25 06:00 Fentanyl 2,500 Mcg/Ns 250 Ml IV CONT 100 mcg/hr .Q25H HAIM 10 mls/hr Infusion 100 MCG/HR Midazolam HCl 100 mg in 100 mls @ 4 mls/hr 02/01/25 16:15 02/04/25 06:00 Versed 100 Mg/Ns 100 Ml IV CONT 4 mg/hr .Q25H HAIM 4 mls/hr Infusion 4 MG/HR Iron Sucrose 200 mg/ Sodium 110 mls @ 220 mls/hr 02/03/25 10:30 02/03/25 14:47 Chloride IVPB 02/05/25 09:29 Infused DAILY HAIM Infusion Insulin Aspart 3 - 6 units 02/01/25 12:00 02/04/25 06:10 Insulin Aspart (*Bkc) 100 Units/Ml SUB-Q Not Given Q6HR HAIM Protocol Lactulose 20 gm 02/04/25 09:00 02/04/25 08:25 Lactulose 20 Gm/30 Ml Udc PO 02/04/25 17:01 20 gm BID HAIM Administration Metoprolol Tartrate 5 mg 02/04/25 04:26 02/04/25 04:58 Metoprolol Tartrate Inj 5 Mg/5 Ml Vial IV PUSH 5 mg Q6H PRN Administration HR > 130 Metoprolol Tartrate 25 mg 02/04/25 09:00 02/04/25 08:25 Metoprolol Tartrate 25 Mg Tablet PO 25 mg BID HAIM Administration Multi-Ingred Cream/Lotion/Oil/Oint 1 applic 02/01/25 21:00 02/04/25 08:26 Mineral Oil/White Petrolatum Ointment EACH EYE 1 applic Q12HR HAIM Administration Ondansetron HCl 4 mg 01/31/25 16:00 Ondansetron Inj 4 Mg/2 Ml Vial IV PUSH Q4H PRN Nausea Pantoprazole Sodium 40 mg 02/01/25 09:00 02/04/25 08:19 Pantoprazole Sodium Iv 40 Mg Vial IV PUSH 40 mg Q12HR HAIM Administration Perflutren Lipid Microsphere 0 ml 02/02/25 07:32 Perflutren Lipid Microspheres 1.5 Ml Vial Diluted To 10 Ml Total Volume IV PUSH 02/05/25 07:32 ONCE PRN adequate visualization Protocol Polyethylene Glycol 17 gm 02/01/25 09:25 02/04/25 08:26 Polyethylene Glycol 3350 17 Gm Powd.Pack PO 17 gm QAM HAIM Administration Sodium Chloride 10 ml 02/01/25 14:00 02/04/25 06:37 Central Line Flush IV PUSH 10 ml Q8HR HAIM Administration Sodium Chloride 20 ml 02/01/25 06:37 Central Line Flush IV PUSH PRN PRN after blood draws Radiology Results: ITS Impressions Head CT 01/31/25 15:47 Impression: No acute intracranial hemorrhage or suspicious mass effect. Chest/Abdomen/Pelvis CTA 01/31/25 15:49 IMPRESSION: Right middle and lower lobe pneumonia with dense consolidation. Left basilar atelectasis. No pulmonary embolus. No aortic dissection. Oral contrast opacifies the entirety of the colon. Supportive lines in good position. No acute pathology within the remainder of the examination, as detailed above. Chest X-Ray 02/04/25 07:02 IMPRESSION: Decreased right-sided pleural effusion, with adjacent compressive atelectasis. Mild pulmonary vascular congestion. Supportive lines and tubes in good radiographic position. Labs Labs: Laboratory Results - last 24 hr 02/03/25 02/03/25 02/04/25 11:56 17:15 00:30 WBC RBC Hgb Hct MCV MCH MCHC RDW Plt Count MPV Immature Gran % (Auto) Neut % (Auto) Lymph % (Auto) Rich % (Auto) Eos % (Auto) Baso % (Auto) Lymph # (Auto) Rich # (Auto) Eos # (Auto) Baso # (Auto) Abs Immat Gran (auto) Absolute Neuts (auto) Absolute Nucleated RBC Nucleated RBC % APTT Puncture Site ABG pH ABG pCO2 ABG pO2 ABG PO2/FiO2 Ratio ABG HCO3 ABG O2 Saturation ABG O2 Content ABG Base Excess A-a Gradient Oxyhemoglobin Total Hemoglobin O2 Delivery Device O2 Liters/Min Minute Volume Vent Rate Vent Mode FiO2 Tidal Volume PEEP Peak Inspir Pressure Pressure Support Sodium Potassium Chloride Carbon Dioxide Anion Gap BUN Creatinine Estim Creat Clear Calc Estimated GFR Glucose POC Capillary Glucose 116 H 104 110 H Lactic Acid Calcium Phosphorus Magnesium Total Bilirubin AST ALT Alkaline Phosphatase Total Protein Albumin TSH (Reflex) 02/04/25 02/04/25 02/04/25 03:38 04:38 06:06 WBC 9.9 RBC 2.44 L Hgb 7.1 L Hct 22.3 L MCV 91.4 MCH 29.1 MCHC 31.8 L RDW 15.8 H Plt Count 204 MPV 10.8 H Immature Gran % (Auto) 0.4 Neut % (Auto) 74.4 H Lymph % (Auto) 16.0 L Rich % (Auto) 9.2 H Eos % (Auto) 0.0 Baso % (Auto) 0.0 L Lymph # (Auto) 1.58 Rich # (Auto) 0.9 H Eos # (Auto) 0.0 Baso # (Auto) 0.0 Abs Immat Gran (auto) 0.04 H Absolute Neuts (auto) 7.4 H Absolute Nucleated RBC 0.000 Nucleated RBC % 0.0 APTT 38.5 H Puncture Site Right radial ABG pH 7.568 H* ABG pCO2 35.4 ABG pO2 58.6 L ABG PO2/FiO2 Ratio 1.95 ABG HCO3 31.6 H ABG O2 Saturation 93.8 L ABG O2 Content 9.9 L ABG Base Excess 8.8 A-a Gradient 113.7 Oxyhemoglobin 91.7 Total Hemoglobin 7.6 L* O2 Delivery Device Ventilator O2 Liters/Min Not Reportable Minute Volume Not Reportable Vent Rate 22 Vent Mode Cmv FiO2 30 Tidal Volume 320 PEEP 5 Peak Inspir Pressure Not Reportable Pressure Support Not Reportable Sodium 145 Potassium 3.0 L Chloride 105 Carbon Dioxide 32 H Anion Gap 8 BUN 15 Creatinine 0.55 L Estim Creat Clear Calc 55 Estimated GFR > 60 Glucose 125 H POC Capillary Glucose 102 Lactic Acid 2.0 Calcium 8.9 Phosphorus 2.5 Magnesium 2.2 Total Bilirubin 0.8 AST 27 ALT 32 Alkaline Phosphatase 70 Total Protein 6.0 L Albumin 3.3 L TSH (Reflex) 2.600 Quality VTE Prophylaxis VTE prophylaxis: mechanical ordered
[2025-02-04] MEDS: IRON SUCROSE COMPLEX 200 MG in SODIUM CHLORIDE 0.9% IV 100 ML 220 MG IVPB (08:39)
[2025-02-04 08:59] LABS: Troponin I 0.078 ng/mL (0.000-0.034)
[2025-02-04] MEDS: ALBUMIN HUMAN 25% 25 GM/100 ML 100 ML IVPB (10:18)
--- NOTE | 2025-02-04 10:46 | P.CONCA_ITS ---
Assessment and Plan Assessment and plan (1) Sinus tachycardia: Code(s): R00.0 - Tachycardia, unspecified Status: Acute Plan 1. Sinus tachycardia, SVT 2. Acute hypoxic respiratory failure requiring mechanical ventilation 3. Altered mental status 4. Pneumonia 5. Anemia 6. Cerebral palsy, reportedly nonverbal due to CP 7. Hypertension 8. Hyperlipidemia 9. Schizophrenia PLAN: -Had abrupt onset of worsening tachycardia into the 170s with abrupt offset, appears to be SVT. Remains in sinus tachycardia otherwise. Echocardiogram this admission shows LVEF 60-65%, no significant valvular disease. Has been started on Metoprolol 25mg BID, continue for now. Tachycardia should improve as her acute illnesses improve. Has significant anemia with Hgb of 7.1, which is likely contributing to tachycardia. Anemia workup per primary team. Consider blood transfusion, this may improve her hemodynamics. Recommendations and plan discussed with ICU Physician. History of Present Illness History of Present Illness Consult date/time: 02/04/25 10:46 Requesting physician: Natividad Walters MD Consult reason: Other (SVT) Reason For Visit: Unresponsive, hypoxia, hypotensive, pneumonia Narrative: We are consulted for SVT. Patient intubated/sedated, therefore, unable to obtain any history from the patient. History obtained from the patient's chart and medical team, no family at bedside. Maria Del Carmen is a 69 year old female with history of mild intellectual disability, gastritis, cerebral palsy, hypertension, hyperlipidemia, schizophrenia, nonverbal status due to cerebral palsy who was admitted on 01/31 due to apnea, hypoxia, altered mental status, unresponsiveness. Patient was recently discharged from [facility] after being admitted with bilateral pneumonia, hyponatremia, hypokalemia, mild transaminitis. Patient intubated in our ER due to no gag reflex, hypotension, unresponsiveness. She remains intubated for acute hypoxic respiratory failure, being treated for pneumonia, undergoing workup for anemia. Overnight, she had abrupt onset of worsening tachycardia into the 170s with abrupt offset, appears to be SVT. Remains in sinus tachycardia otherwise. Echocardiogram this admission shows LVEF 60-65%, no significant valvular disease. Review of Systems 2 Review of Systems: ROS unobtainable: Yes unobtainable due to endotracheal tube and unobtainable due to medical condition PMFSH Past Medical History Medical History Vitamin D deficiency Osteoporosis Mild intellectual disabilities Gastritis HTN (hypertension) Dyslipidemia Schizophrenia Nonverbal Secondary to CP Cerebral palsy Family History Family History Other Unknown family medical history Social History Social History Smoking status: Unknown if ever smoked Alcohol intake: unknown Substance use: unknown Spiritual care concerns: No Meds Home Medications and Allergies Home Medications ?Medication ?Instructions ?Recorded ?Confirmed ?Type acetaminophen 500 mg tablet 1,000 mg PO Q6H PRN fever or pain 01/31/25 01/31/25 History bisacodyl 5 mg tablet,delayed 10 mg PO Q8H PRN constipation 01/31/25 01/31/25 History release cholecalciferol (vitamin D3) 50 50 mcg PO DAILY 01/31/25 01/31/25 History mcg (2,000 unit) capsule clomipramine 25 mg capsule 25 mg PO DAILY 01/31/25 01/31/25 History clomipramine 50 mg capsule 50 mg PO DAILY 01/31/25 01/31/25 History docusate sodium 100 mg capsule 100 mg PO Q12H 01/31/25 01/31/25 History fluticasone propionate 50 2 spray intranasal HS 01/31/25 02/01/25 History mcg/actuation nasal spray,suspension vit B complex 100 combo no.2 100 1 tablet PO DAILY 01/31/25 01/31/25 History mg tablet,extended release (B-100 Complex ER) ascorbic acid (vitamin C) 500 mg 500 mg PO Q12H 02/01/25 02/01/25 History tablet (Vitamin C) guaifenesin 100 mg/5 mL oral 200 mg PO Q4H PRN cough 02/01/25 02/01/25 History liquid (Chest Congestion Relief) loperamide 2 mg capsule 2 mg PO Q4H PRN loose stool 02/01/25 02/01/25 History magnesium hydroxide 400 mg/5 mL 30 ml PO QID PRN constipation 02/01/25 02/01/25 History oral suspension (Milk of Magnesia) magnesium oxide 250 mg PO DAILY 02/01/25 02/01/25 History metoprolol tartrate 25 mg tablet 25 mg PO BID 02/01/25 02/01/25 History omeprazole 20 mg capsule,delayed 20 mg PO DAILY 02/01/25 02/01/25 History release oxybutynin chloride 5 mg 5 mg PO HS 02/01/25 02/01/25 History tablet,extended release 24 hr potassium chloride 10 mEq 20 meq PO DAILY 02/01/25 02/01/25 History tablet,extended release risperidone 0.5 mg tablet 0.5 mg PO HS 02/01/25 02/01/25 History risperidone 1 mg tablet 1 mg PO Q12H 02/01/25 02/01/25 History Allergies Allergy/AdvReac Type Severity Reaction Status Date / Time cefepime Allergy Unknown Unknown Verified 01/31/25 21:24 Vital Signs Vital Signs - 24 hr 02/03/25 11:11 02/03/25 11:48 02/03/25 12:00 Temperature Pulse Rate 113 H 114 H Respiratory Rate 22 H Blood Pressure Pulse Oximetry 100 100 Oxygen Delivery Mechanical Ventilation Mechanical Ventilation Fraction of Inspired Oxygen 30 30 02/03/25 12:00 02/03/25 12:00 02/03/25 12:00 Temperature 37.1 C Pulse Rate 113 H 113 H Respiratory Rate 22 H Blood Pressure 118/74 Pulse Oximetry 100 Oxygen Delivery Fraction of Inspired Oxygen 30 02/03/25 12:00 02/03/25 12:00 02/03/25 14:00 Temperature Pulse Rate 112 H 112 H 112 H Respiratory Rate 22 H 22 H 22 H Blood Pressure Pulse Oximetry Oxygen Delivery Fraction of Inspired Oxygen 02/03/25 14:00 02/03/25 14:00 02/03/25 14:00 Temperature 36.9 C Pulse Rate 112 H 112 H 114 H Respiratory Rate 22 H 22 H Blood Pressure 120/73 Pulse Oximetry 100 Oxygen Delivery Fraction of Inspired Oxygen 02/03/25 15:11 02/03/25 15:11 02/03/25 15:18 Temperature Pulse Rate 114 H 114 H 123 H Respiratory Rate 22 H 22 H Blood Pressure Pulse Oximetry 100 Oxygen Delivery Mechanical Ventilation Fraction of Inspired Oxygen 30 02/03/25 16:00 02/03/25 16:00 02/03/25 16:00 Temperature Pulse Rate 124 H Respiratory Rate Blood Pressure Pulse Oximetry 100 Oxygen Delivery Mechanical Ventilation Fraction of Inspired Oxygen 30 30 02/03/25 16:00 02/03/25 16:00 02/03/25 16:00 Temperature 37.1 C Pulse Rate 124 H 120 H 120 H Respiratory Rate 22 H 22 H 22 H Blood Pressure 127/80 Pulse Oximetry 100 Oxygen Delivery Fraction of Inspired Oxygen 02/03/25 16:02 02/03/25 18:00 02/03/25 18:00 Temperature Pulse Rate 123 H 120 H 119 H Respiratory Rate 22 H Blood Pressure 110/61 Pulse Oximetry 100 100 Oxygen Delivery Mechanical Ventilation Fraction of Inspired Oxygen 30 02/03/25 18:00 02/03/25 18:00 02/03/25 20:00 Temperature Pulse Rate 120 H 120 H 123 H Respiratory Rate 22 H 22 H 21 H Blood Pressure Pulse Oximetry Oxygen Delivery Fraction of Inspired Oxygen 02/03/25 20:00 02/03/25 20:00 02/03/25 20:00 Temperature 37.0 C Pulse Rate 123 H 123 H Respiratory Rate 21 H 21 H Blood Pressure 126/86 Pulse Oximetry 100 100 Oxygen Delivery Mechanical Ventilation Fraction of Inspired Oxygen 30 02/03/25 20:00 02/03/25 20:00 02/03/25 20:01 Temperature Pulse Rate 124 H 117 H Respiratory Rate 22 H Blood Pressure Pulse Oximetry Oxygen Delivery Fraction of Inspired Oxygen 30 02/03/25 20:03 02/03/25 20:05 02/03/25 22:00 Temperature Pulse Rate 117 H 132 H 129 H Respiratory Rate 22 H 22 H Blood Pressure Pulse Oximetry 100 Oxygen Delivery Mechanical Ventilation Fraction of Inspired Oxygen 30 02/03/25 22:00 02/03/25 22:00 02/03/25 22:00 Temperature 38.1 C H Pulse Rate 129 H 128 H 139 H Respiratory Rate 22 H 20 Blood Pressure 123/70 Pulse Oximetry 100 Oxygen Delivery Fraction of Inspired Oxygen 02/03/25 22:53 02/03/25 22:57 02/04/25 00:00 Temperature 38.2 C H 38.3 C H Pulse Rate 112 H 139 H Respiratory Rate 28 H Blood Pressure 166/107 H Pulse Oximetry 100 100 Oxygen Delivery Mechanical Ventilation Fraction of Inspired Oxygen 30 02/04/25 00:00 02/04/25 00:00 02/04/25 00:00 Temperature Pulse Rate 133 H Respiratory Rate Blood Pressure Pulse Oximetry 100 Oxygen Delivery Mechanical Ventilation Fraction of Inspired Oxygen 30 30 02/04/25 00:00 02/04/25 00:00 02/04/25 00:00 Temperature 38.3 C H Pulse Rate 132 H 132 H Respiratory Rate 25 H 25 H Blood Pressure Pulse Oximetry Oxygen Delivery Fraction of Inspired Oxygen 02/04/25 00:16 02/04/25 00:55 02/04/25 02:00 Temperature 38.3 C H Pulse Rate 132 H 150 H 145 H Respiratory Rate 24 H 30 H Blood Pressure 123/88 Pulse Oximetry 100 Oxygen Delivery Fraction of Inspired Oxygen 02/04/25 02:00 02/04/25 02:00 02/04/25 02:00 Temperature 37.3 C Pulse Rate 145 H 145 H 145 H Respiratory Rate 26 H 26 H 25 H Blood Pressure 101/58 L Pulse Oximetry 100 Oxygen Delivery Fraction of Inspired Oxygen 02/04/25 02:08 02/04/25 02:13 02/04/25 02:49 Temperature Pulse Rate 144 H 144 H 141 H Respiratory Rate 26 H 26 H Blood Pressure Pulse Oximetry 100 Oxygen Delivery Mechanical Ventilation Fraction of Inspired Oxygen 30 02/04/25 02:49 02/04/25 03:25 02/04/25 04:00 Temperature 37.8 C H Pulse Rate 141 H 140 H 142 H Respiratory Rate 26 H 22 H 25 H Blood Pressure 120/72 Pulse Oximetry 100 Oxygen Delivery Fraction of Inspired Oxygen 02/04/25 04:00 02/04/25 04:00 02/04/25 04:00 Temperature Pulse Rate 142 H 142 H Respiratory Rate 25 H 25 H Blood Pressure Pulse Oximetry Oxygen Delivery Fraction of Inspired Oxygen 30 02/04/25 04:00 02/04/25 04:00 02/04/25 04:51 Temperature Pulse Rate 143 H 142 H Respiratory Rate Blood Pressure Pulse Oximetry 100 100 Oxygen Delivery Mechanical Ventilation Mechanical Ventilation Fraction of Inspired Oxygen 30 30 02/04/25 04:58 02/04/25 05:08 02/04/25 06:00 Temperature 38.1 C H Pulse Rate 141 H 115 H 130 H Respiratory Rate 25 H 24 H Blood Pressure 110/73 Pulse Oximetry 100 Oxygen Delivery Fraction of Inspired Oxygen 02/04/25 06:00 02/04/25 06:00 02/04/25 06:00 Temperature Pulse Rate 130 H 130 H 130 H Respiratory Rate 24 H 24 H Blood Pressure Pulse Oximetry Oxygen Delivery Fraction of Inspired Oxygen 02/04/25 07:50 02/04/25 08:25 02/04/25 10:26 Temperature Pulse Rate 137 H 133 H 122 H Respiratory Rate Blood Pressure Pulse Oximetry 100 100 Oxygen Delivery Mechanical Ventilation Mechanical Ventilation Fraction of Inspired Oxygen 40 40 Exam 2 Const: Other: Critically ill female, intubated/sedated HENMT: Other: OETT in place Resp: Other: On mechanical ventilatoin Cardio: Rate: tachycardic Rhythm: regular rhythm Heart sounds: no murmurs Neuro: Other: Sedated Results Labs and Meds 02/04/25 03:38 02/04/25 03:38 Lab results: Cardiac Enzymes 02/04/25 02/04/25 Range/Units 03:38 08:32 AST 27 (14-36) U/L Troponin I 0.078 H* (0.000-0.034) ng/mL Coagulation 02/04/25 Range/Units 03:38 APTT 38.5 H (22.3-36.8) Seconds CBC 02/04/25 Range/Units 03:38 WBC 9.9 (4.5-10.0) K/mm3 RBC 2.44 L (4.2-5.4) M/mm3 Hgb 7.1 L (12.0-15.0) g/dL Hct 22.3 L (37.0-47.0) % Plt Count 204 (150-375) k/mm3 Lymph # (Auto) 1.58 (0.9-3.2) K/mm3 [place] # (Auto) 0.9 H (0.1-0.6) K/mm3 Eos # (Auto) 0.0 (0-0.3) K/mm3 Baso # (Auto) 0.0 (0.0-0.1) K/mm3 Comprehensive Metabolic Panel 02/04/25 Range/Units 03:38 Sodium 145 (137-145) mmol/L Potassium 3.0 L (3.4-5.0) mmol/L Chloride 105 (98-107) mmol/L Carbon Dioxide 32 H (22-30) mmol/L BUN 15 (7-17) mg/dL Creatinine 0.55 L (0.7-1.0) mg/dL Glucose 125 H (65-110) mg/dL Calcium 8.9 (8.4-10.2) mg/dL AST 27 (14-36) U/L ALT 32 (6-35) U/L Alkaline Phosphatase 70 (38-126) U/L Total Protein 6.0 L (6.3-8.2) g/dL Albumin 3.3 L (3.5-5.1) g/dL Intake and Output 02/03/25 02/04/25 02/04/25 23:59 07:59 15:59 Intake Total 1213 1056.3 Output Total 500 1475 Balance 713 -418.7 Intake: IV 454 216.3 Fentanyl 2,500Mcg/Ar196ra(*Crx 80 80.0 2,500 mcg In 250 ml @ 100 MCG/ HR 10 mls/hr IV CONT .Q25H [facility] Rx#:[id number] Midazolam 100Mg/Ns 100Ml(*Crx) 24 36.3 100 mg In 100 ml @ 4 MG/HR 4 mls/hr IV CONT .Q25H [facility] Rx#: [id number] Azithromycin 500 mg/Ns 250 ml 250 500 mg In 250 ml @ 250 mls/hr IVPB Q24H [facility] Rx#:[id number] Piperacillin/Nicholas 4.5G/Ns 100Ml 100 100 4.5 gm In 100 ml @ 200 mls/hr IVPB Q6HR [facility] Rx#:[id number] Oral 0 Tube Feeding 519 540 Tube Flush 240 240 Other 60 Output: Catheter Urine 500 1475 Urethral Catheter 500 1475 Other: Intake, Other Source water w/medicines Number of Bowel Movements Today 0 Patient Weight 02/04/25 23:59 Weight 44.5 kg
[2025-02-04 11:27] LABS: Glucose Point of Care 85 mg/dl (65-105)
[2025-02-04 11:27] LABS: Glucose Point of Care 122 mg/dl (65-105)
[2025-02-04 11:56] LABS: Troponin I 0.062 ng/mL (0.000-0.034)
[2025-02-04] MEDS: IPRATROPIUM BR 0.02% INH SOLN 0.5 MG/2.5 ML VIAL INHALATION ×2 (13:20→19:46)
[2025-02-04] MEDS: LEVALBUTEROL NEB 1.25 MG/3 ML 0.63 MG INHALATION ×2 (13:21→19:46)
--- NOTE | 2025-02-04 13:31 | P.PNIM_ITS ---
Progress Note: A&P Assessment and Plan (1) Acute hypoxic respiratory failure: Code(s): J96.01 - Acute respiratory failure with hypoxia Status: Acute Assessment and Plan: 01/31/2025: Patient presented from [facility] with hypoxia, periods of apnea, and unresponsiveness. She was brought to the ED being bagged, she did not have a gag and was unresponsive in the ED so was intubated upon arrival to the ED. central line was also inserted as she was hypotensive -chest x-ray showed right lower lobe pneumonia/consolidation -continue bronchodilators and Mucomyst nebulizer (2) AMS (altered mental status): Qualifiers: Altered mental status type: unspecified Qualified Code(s): R41.82 - Altered mental status, unspecified Code(s): R41.82 - Altered mental status, unspecified Status: Acute Assessment and Plan: Encephalopathy could be related to hypoxia, hypercapnia, pneumonia/infection/hypotension, could be related to medication -currently intubated, sedated -will wean sedation as planned (3) Pneumonia: Qualifiers: Pneumonia type: due to unspecified organism Laterality: right Lung location: unspecified part of lung Qualified Code(s): J18.9 - Pneumonia, unspecified organism Code(s): J18.9 - Pneumonia, unspecified organism Status: Acute Assessment and Plan: Chest x-ray and CTA chest show right lower lobe consolidation -according the [facility] records: Repeat CT chest showed interval development of new airspace opacities raising concern for aspiration pneumonia. She was transition to Zosyn from cefepime. MBS performed on 01/26 at [facility] which showed no evidence of aspiration despite coughing especially with swallowing. -continue Zosyn, azithromycin (01/31) -MRSA screen is negative, vancomycin discontinued (02/01) (4) Sepsis: Code(s): A41.9 - Sepsis, unspecified organism Status: Acute Assessment and Plan: Patient presented with altered mental status, hypoxia, apnea, pneumonia. -lactic acid was normal -blood pressures are borderline -patient was adequately fluid-resuscitated -status post albumin for volume expansion -off Levophed, -continue to monitor urine output and renal function (5) Cerebral palsy: Code(s): G80.9 - Cerebral palsy, unspecified Status: Acute Assessment and Plan: Patient with cerebral palsy, mild intellectual disability, schizophrenia, nonverbal at baseline according the chart -patient on risperidone, will restart prior to extubation as she is currently sedated and intubated (6) Anemia: Code(s): D64.9 - Anemia, unspecified Status: Acute Assessment and Plan: Patient admitted with a hemoglobin of 10.3 on 01/31 -02/01: Hemoglobin dropped to 7.7, a repeat CBC was done which showed a hemoglobin of 7.3 -will check stools for occult blood, -folic acid and vitamin B12 level within normal limits -low iron levels, low TIBC, will give Venofer -LDH is normal, haptoglobin is pending -Protonix IV q.12 hours -continue to monitor (7) Electrolyte imbalance: Code(s): E87.8 - Other disorders of electrolyte and fluid balance, not elsewhere classified Status: Acute Assessment and Plan: Hypernatremia, improving, sodium level of 145 this morning (8) Sinus tachycardia: Code(s): R00.0 - Tachycardia, unspecified Status: Acute Assessment and Plan: 02/04: Patient developed SVT/sinus tachycardia overnight with rates in the 180- 200s. Was given IV metoprolol x1 with improvement which brought her rate start to 130s. -could be multifactorial, related to sepsis, anemia, coronary artery disease -restarted patient's home a metoprolol -repeat EKG showed sinus tachycardia -troponin has been ordered and pending -cardiology consulted 02/02/2025: Echocardiogram Summary 1. Complete two-dimensional, color flow and Doppler transthoracic echocardiogram is performed. 2. Left ventricular chamber dimension is normal. 3. Left ventricular systolic function is normal, estimated at 60-65%. 4. The left ventricular diastolic function is grade I diastolic dysfunction. 5. E/e' 7 is not elevated. 6. There is mild aortic valve sclerosis. 7. There is trace tricuspid valve regurgitation. 8. Mild pulmonary hypertension, estimated pulmonary arterial systolic pressure is 41 mmHg. (9) Constipation: Code(s): K59.00 - Constipation, unspecified Status: Acute Assessment and Plan: 02/04: KUB showed moderate fecal retention -patient already on docusate sodium and senna and MiraLax -added lactulose and soapsuds enema Plan DVT prophylaxis: SCDs. Hold Lovenox due to significant drop in hemoglobin Stress ulcer prophylaxis: Protonix IV q.12 hours Nutrition: Tolerating tube feeds, patient on stool softener and MiraLax Code Status: Full -patient is a guardian/bear of the state ([place]) Subjective Date/time seen: 02/04/25 13:31 Interval history: Chart reviewed. Patient intubated and sedated Review of Systems Review of Systems: ROS unobtainable: Yes unobtainable due to endotracheal tube Exam Narrative: General: Petite female/malnourished, in no acute distress HEENT:? Pupils are pinpoint, sluggish, ETT in place Neck:? Supple Respiratory:? Coarse breath sounds bilaterally, rales on right base, no wheezing, adequate air entry otherwise Cardiac:? S1-S2 normal, regular rate and rhythm Abdomen:? Soft, nontender, nondistended, hypoactive bowel sounds Extremities:? Trace edema, bilateral pedal pulses are palpable Neuro:? Intubated, sedated Skin:? No skin lesions noted Psych:? Unable to assess at this time Objective Data Vital Signs Vital Signs: Vital Signs - 24 hr 02/03/25 14:00 02/03/25 14:00 02/03/25 14:00 Temperature 98.5 F Pulse Rate 112 H 112 H 112 H Respiratory Rate 22 H 22 H 22 H Blood Pressure 120/73 Pulse Oximetry 100 Oxygen Delivery Fraction of Inspired Oxygen 02/03/25 14:00 02/03/25 15:11 02/03/25 15:11 Temperature Pulse Rate 114 H 114 H 114 H Respiratory Rate 22 H Blood Pressure Pulse Oximetry 100 Oxygen Delivery Mechanical Ventilation Fraction of Inspired Oxygen 30 02/03/25 15:18 02/03/25 16:00 02/03/25 16:00 Temperature Pulse Rate 123 H Respiratory Rate 22 H Blood Pressure Pulse Oximetry 100 Oxygen Delivery Mechanical Ventilation Fraction of Inspired Oxygen 30 30 02/03/25 16:00 02/03/25 16:00 02/03/25 16:00 Temperature 98.7 F Pulse Rate 124 H 124 H 120 H Respiratory Rate 22 H 22 H Blood Pressure 127/80 Pulse Oximetry 100 Oxygen Delivery Fraction of Inspired Oxygen 02/03/25 16:00 02/03/25 16:02 02/03/25 18:00 Temperature Pulse Rate 120 H 123 H 120 H Respiratory Rate 22 H Blood Pressure Pulse Oximetry 100 Oxygen Delivery Mechanical Ventilation Fraction of Inspired Oxygen 30 02/03/25 18:00 02/03/25 18:00 02/03/25 18:00 Temperature Pulse Rate 119 H 120 H 120 H Respiratory Rate 22 H 22 H 22 H Blood Pressure 110/61 Pulse Oximetry 100 Oxygen Delivery Fraction of Inspired Oxygen 02/03/25 20:00 02/03/25 20:00 02/03/25 20:00 Temperature 98.6 F Pulse Rate 123 H 123 H 123 H Respiratory Rate 21 H 21 H 21 H Blood Pressure 126/86 Pulse Oximetry 100 Oxygen Delivery Fraction of Inspired Oxygen 02/03/25 20:00 02/03/25 20:00 02/03/25 20:00 Temperature Pulse Rate 124 H Respiratory Rate Blood Pressure Pulse Oximetry 100 Oxygen Delivery Mechanical Ventilation Fraction of Inspired Oxygen 30 30 02/03/25 20:01 02/03/25 20:03 02/03/25 20:05 Temperature Pulse Rate 117 H 117 H 132 H Respiratory Rate 22 H 22 H Blood Pressure Pulse Oximetry 100 Oxygen Delivery Mechanical Ventilation Fraction of Inspired Oxygen 30 02/03/25 22:00 02/03/25 22:00 02/03/25 22:00 Temperature 100.5 F H Pulse Rate 129 H 129 H 128 H Respiratory Rate 22 H 22 H 20 Blood Pressure 123/70 Pulse Oximetry 100 Oxygen Delivery Fraction of Inspired Oxygen 02/03/25 22:00 02/03/25 22:53 02/03/25 22:57 Temperature 100.8 F H Pulse Rate 139 H 112 H Respiratory Rate Blood Pressure Pulse Oximetry 100 Oxygen Delivery Mechanical Ventilation Fraction of Inspired Oxygen 30 02/04/25 00:00 02/04/25 00:00 02/04/25 00:00 Temperature 100.9 F H Pulse Rate 139 H Respiratory Rate 28 H Blood Pressure 166/107 H Pulse Oximetry 100 100 Oxygen Delivery Mechanical Ventilation Fraction of Inspired Oxygen 30 30 02/04/25 00:00 02/04/25 00:00 02/04/25 00:00 Temperature Pulse Rate 133 H 132 H 132 H Respiratory Rate 25 H 25 H Blood Pressure Pulse Oximetry Oxygen Delivery Fraction of Inspired Oxygen 02/04/25 00:00 02/04/25 00:16 02/04/25 00:55 Temperature 100.9 F H 101 F H Pulse Rate 132 H 150 H Respiratory Rate 24 H 30 H Blood Pressure 123/88 Pulse Oximetry 100 Oxygen Delivery Fraction of Inspired Oxygen 02/04/25 02:00 02/04/25 02:00 02/04/25 02:00 Temperature Pulse Rate 145 H 145 H 145 H Respiratory Rate 26 H 26 H Blood Pressure Pulse Oximetry Oxygen Delivery Fraction of Inspired Oxygen 02/04/25 02:00 02/04/25 02:08 02/04/25 02:13 Temperature 99.1 F Pulse Rate 145 H 144 H 144 H Respiratory Rate 25 H 26 H Blood Pressure 101/58 L Pulse Oximetry 100 100 Oxygen Delivery Mechanical Ventilation Fraction of Inspired Oxygen 30 02/04/25 02:49 02/04/25 02:49 02/04/25 03:25 Temperature Pulse Rate 141 H 141 H 140 H Respiratory Rate 26 H 26 H 22 H Blood Pressure Pulse Oximetry Oxygen Delivery Fraction of Inspired Oxygen 02/04/25 04:00 02/04/25 04:00 02/04/25 04:00 Temperature 100.1 F H Pulse Rate 142 H 142 H 142 H Respiratory Rate 25 H 25 H 25 H Blood Pressure 120/72 Pulse Oximetry 100 Oxygen Delivery Fraction of Inspired Oxygen 02/04/25 04:00 02/04/25 04:00 02/04/25 04:00 Temperature Pulse Rate 143 H Respiratory Rate Blood Pressure Pulse Oximetry 100 Oxygen Delivery Mechanical Ventilation Fraction of Inspired Oxygen 30 30 02/04/25 04:51 02/04/25 04:58 02/04/25 05:08 Temperature Pulse Rate 142 H 141 H 115 H Respiratory Rate 25 H Blood Pressure Pulse Oximetry 100 Oxygen Delivery Mechanical Ventilation Fraction of Inspired Oxygen 30 02/04/25 06:00 02/04/25 06:00 02/04/25 06:00 Temperature 100.5 F H Pulse Rate 130 H 130 H 130 H Respiratory Rate 24 H 24 H Blood Pressure 110/73 Pulse Oximetry 100 Oxygen Delivery Fraction of Inspired Oxygen 02/04/25 06:00 02/04/25 07:50 02/04/25 08:00 Temperature Pulse Rate 130 H 137 H Respiratory Rate 24 H Blood Pressure Pulse Oximetry 100 100 Oxygen Delivery Mechanical Ventilation Mechanical Ventilation Fraction of Inspired Oxygen 40 40 02/04/25 08:00 02/04/25 08:00 02/04/25 08:00 Temperature 98.8 F Pulse Rate 136 H 134 H Respiratory Rate 21 H Blood Pressure 105/85 Pulse Oximetry 100 Oxygen Delivery Fraction of Inspired Oxygen 30 02/04/25 08:25 02/04/25 10:00 02/04/25 10:00 Temperature 100.2 F H Pulse Rate 133 H 123 H 123 H Respiratory Rate 20 Blood Pressure 118/82 Pulse Oximetry 100 Oxygen Delivery Fraction of Inspired Oxygen 02/04/25 10:26 02/04/25 12:00 02/04/25 12:00 Temperature Pulse Rate 122 H Respiratory Rate Blood Pressure Pulse Oximetry 100 100 Oxygen Delivery Mechanical Ventilation Mechanical Ventilation Fraction of Inspired Oxygen 40 40 40 02/04/25 12:00 02/04/25 13:20 02/04/25 13:20 Temperature Pulse Rate 114 H 117 H 117 H Respiratory Rate 20 20 Blood Pressure 131/87 Pulse Oximetry 100 100 Oxygen Delivery Mechanical Ventilation Fraction of Inspired Oxygen 40 02/04/25 13:30 Temperature Pulse Rate 116 H Respiratory Rate 20 Blood Pressure Pulse Oximetry Oxygen Delivery Fraction of Inspired Oxygen Intake/Output Intake/Output: Intake & Output 02/01/25 02/02/25 02/03/25 02/04/25 23:59 23:59 23:59 23:59 Intake Total 6760.2 1980.1 2522.3 1056.3 Output Total 2600 1200 1250 1475 Balance 4160.2 780.1 1272.3 -418.7 Meds/Results Medications: Active Medications Generic Name Dose Route Start Last Admin Trade Name Freq PRN Reason Stop Dose Admin Acetaminophen 650 mg 02/03/25 22:36 02/03/25 22:53 Acetaminophen Elixir 325 Mg/10.15 Ml Udc PO 650 mg Q6H PRN Administration Mild Pain (1-3) or Fever Dextrose 12.5 gm 02/01/25 07:23 Dextrose 50% 25 Gm/50 Ml Syringe IV PUSH PRN PRN Hypoglycemia Protocol Diphenhydramine HCl 25 mg 01/31/25 21:37 Diphenhydramine Hcl Inj 50 Mg/Ml Vial IV PUSH Q5M PRN Allergic Reaction Docusate Sodium 100 mg 02/01/25 09:40 02/04/25 08:25 Docusate Sodium Liq 100 Mg/10 Ml Udc PO 100 mg Q12HR HAIM Administration Glucagon 1 mg 02/01/25 07:23 Glucagon For Inj 1 Mg Vial IM PRN PRN Hypoglycemia Protocol Glucose 15 gm 02/01/25 07:23 Glucose Oral Gel 15 Gm Of Glucse In 37.5 Gm Tube PO PRN PRN Hypoglycemia Protocol Azithromycin 500 mg in 250 mls @ 250 mls/hr 01/31/25 20:00 02/03/25 21:00 Zithromax IVPB 02/04/25 23:59 Infused Q24H HAIM Infusion Piperacillin Sod/Tazobactam Sod 4.5 gm in 100 mls @ 200 mls/hr 01/31/25 23:00 02/04/25 06:36 Zosyn 4.5 Gm/Ns 100 Ml IVPB 200 mls/hr Q6HR HAIM Administration Dextrose 1,000 mls @ 100 mls/hr 02/01/25 07:23 Dextrose 5% 1,000 Ml IVPB PRN PRN Hypoglycemia Protocol Fentanyl Citrate 2,500 mcg in 250 mls @ 10 mls/hr 02/01/25 16:15 02/04/25 06:00 Fentanyl 2,500 Mcg/Ns 250 Ml IV CONT 100 mcg/hr .Q25H HAIM 10 mls/hr Infusion 100 MCG/HR Midazolam HCl 100 mg in 100 mls @ 4 mls/hr 02/01/25 16:15 02/04/25 06:00 Versed 100 Mg/Ns 100 Ml IV CONT 4 mg/hr .Q25H HAIM 4 mls/hr Infusion 4 MG/HR Iron Sucrose 200 mg/ Sodium 110 mls @ 220 mls/hr 02/03/25 10:30 02/04/25 08:39 Chloride IVPB 02/05/25 09:29 220 mls/hr DAILY HAIM Administration Sodium Chloride 250 mls @ 30 mls/hr 02/04/25 10:41 Normal Saline Iv IV CONT 02/04/25 19:00 .Q8H20M STA Insulin Aspart 3 - 6 units 02/01/25 12:00 02/04/25 06:10 Insulin Aspart (*Bkc) 100 Units/Ml SUB-Q Not Given Q6HR HAIM Protocol Ipratropium Whiteside 0.5 mg 02/04/25 14:00 02/04/25 13:20 Ipratropium Br 0.02% Inh Soln 0.5 Mg/2.5 Ml Vial INHALATION 0.5 mg Q6HRT HAIM Administration Lactulose 20 gm 02/04/25 09:00 02/04/25 08:25 Lactulose 20 Gm/30 Ml Udc PO 02/04/25 17:01 20 gm BID HAIM Administration Levalbuterol HCl 0.63 mg 02/04/25 14:00 02/04/25 13:21 Levalbuterol Neb 1.25 Mg/3 Ml INHALATION 0.63 mg Q6HRT HAIM Administration Metoprolol Tartrate 5 mg 02/04/25 04:26 02/04/25 04:58 Metoprolol Tartrate Inj 5 Mg/5 Ml Vial IV PUSH 5 mg Q6H PRN Administration HR > 130 Metoprolol Tartrate 25 mg 02/04/25 09:00 02/04/25 08:25 Metoprolol Tartrate 25 Mg Tablet PO 25 mg BID HAIM Administration Multi-Ingred Cream/Lotion/Oil/Oint 1 applic 02/01/25 21:00 02/04/25 08:26 Mineral Oil/White Petrolatum Ointment EACH EYE 1 applic Q12HR HAIM Administration Ondansetron HCl 4 mg 01/31/25 16:00 Ondansetron Inj 4 Mg/2 Ml Vial IV PUSH Q4H PRN Nausea Pantoprazole Sodium 40 mg 02/01/25 09:00 02/04/25 08:19 Pantoprazole Sodium Iv 40 Mg Vial IV PUSH 40 mg Q12HR HAIM Administration Perflutren Lipid Microsphere 0 ml 02/02/25 07:32 Perflutren Lipid Microspheres 1.5 Ml Vial Diluted To 10 Ml Total Volume IV PUSH 02/05/25 07:32 ONCE PRN adequate visualization Protocol Polyethylene Glycol 17 gm 02/01/25 09:25 02/04/25 08:26 Polyethylene Glycol 3350 17 Gm Powd.Pack PO 17 gm QAM HAIM Administration Sodium Chloride 10 ml 02/01/25 14:00 02/04/25 06:37 Central Line Flush IV PUSH 10 ml Q8HR HAIM Administration Sodium Chloride 20 ml 02/01/25 06:37 Central Line Flush IV PUSH PRN PRN after blood draws Radiology Results: ITS Impressions Head CT 01/31/25 15:47 Impression: No acute intracranial hemorrhage or suspicious mass effect. Chest/Abdomen/Pelvis CTA 01/31/25 15:49 IMPRESSION: Right middle and lower lobe pneumonia with dense consolidation. Left basilar atelectasis. No pulmonary embolus. No aortic dissection. Oral contrast opacifies the entirety of the colon. Supportive lines in good position. No acute pathology within the remainder of the examination, as detailed above. Chest X-Ray 02/04/25 08:36 IMPRESSION: Decreased right-sided pleural effusion, with adjacent compressive atelectasis. Mild pulmonary vascular congestion. Given that the patient's kyphosis is not severe, the increased depth of both the endotracheal tube and central venous catheter is significant - for which withdrawal of the central venous catheter approximately 4 cm and withdrawal of the endotracheal tube approximately 3.5 cm is recommended, for optimal radiographic placement. Abdomen X-Ray 02/04/25 12:06 IMPRESSION: Orogastric tube in good position and ready for immediate use. Contrast opacified fecal stasis is identified distending the rectum extending to the level of the dilated splenic flexure. Labs Labs: Laboratory Results - last 24 hr 02/03/25 02/04/25 02/04/25 17:15 00:30 03:38 WBC 9.9 RBC 2.44 L Hgb 7.1 L Hct 22.3 L MCV 91.4 MCH 29.1 MCHC 31.8 L RDW 15.8 H Plt Count 204 MPV 10.8 H Immature Gran % (Auto) 0.4 Neut % (Auto) 74.4 H Lymph % (Auto) 16.0 L [place] % (Auto) 9.2 H Eos % (Auto) 0.0 Baso % (Auto) 0.0 L Lymph # (Auto) 1.58 [place] # (Auto) 0.9 H Eos # (Auto) 0.0 Baso # (Auto) 0.0 Abs Immat Gran (auto) 0.04 H Absolute Neuts (auto) 7.4 H Absolute Nucleated RBC 0.000 Nucleated RBC % 0.0 APTT 38.5 H Puncture Site ABG pH ABG pCO2 ABG pO2 ABG PO2/FiO2 Ratio ABG HCO3 ABG O2 Saturation ABG O2 Content ABG Base Excess A-a Gradient Oxyhemoglobin Total Hemoglobin O2 Delivery Device O2 Liters/Min Minute Volume Vent Rate Vent Mode FiO2 Tidal Volume PEEP Peak Inspir Pressure Pressure Support Sodium 145 Potassium 3.0 L Chloride 105 Carbon Dioxide 32 H Anion Gap 8 BUN 15 Creatinine 0.55 L Estim Creat Clear Calc 55 Estimated GFR > 60 Glucose 125 H POC Capillary Glucose 104 110 H Lactic Acid 2.0 Calcium 8.9 Phosphorus 2.5 Magnesium 2.2 Total Bilirubin 0.8 AST 27 ALT 32 Alkaline Phosphatase 70 Troponin I Total Protein 6.0 L Albumin 3.3 L TSH (Reflex) 2.600 Blood Type Antibody Screen Crossmatch 02/04/25 02/04/25 02/04/25 04:38 06:06 08:32 WBC RBC Hgb Hct MCV MCH MCHC RDW Plt Count MPV Immature Gran % (Auto) Neut % (Auto) Lymph % (Auto) [place] % (Auto) Eos % (Auto) Baso % (Auto) Lymph # (Auto) [place] # (Auto) Eos # (Auto) Baso # (Auto) Abs Immat Gran (auto) Absolute Neuts (auto) Absolute Nucleated RBC Nucleated RBC % APTT Puncture Site Right radial ABG pH 7.568 H* ABG pCO2 35.4 ABG pO2 58.6 L ABG PO2/FiO2 Ratio 1.95 ABG HCO3 31.6 H ABG O2 Saturation 93.8 L ABG O2 Content 9.9 L ABG Base Excess 8.8 A-a Gradient 113.7 Oxyhemoglobin 91.7 Total Hemoglobin 7.6 L* O2 Delivery Device Ventilator O2 Liters/Min Not Reportable Minute Volume Not Reportable Vent Rate 22 Vent Mode Cmv FiO2 30 Tidal Volume 320 PEEP 5 Peak Inspir Pressure Not Reportable Pressure Support Not Reportable Sodium Potassium Chloride Carbon Dioxide Anion Gap BUN Creatinine Estim Creat Clear Calc Estimated GFR Glucose POC Capillary Glucose 102 Lactic Acid Calcium Phosphorus Magnesium Total Bilirubin AST ALT Alkaline Phosphatase Troponin I 0.078 H* Total Protein Albumin TSH (Reflex) Blood Type Antibody Screen Crossmatch 02/04/25 02/04/25 02/04/25 11:16 11:19 11:21 WBC RBC Hgb Hct MCV MCH MCHC RDW Plt Count MPV Immature Gran % (Auto) Neut % (Auto) Lymph % (Auto) [place] % (Auto) Eos % (Auto) Baso % (Auto) Lymph # (Auto) [place] # (Auto) Eos # (Auto) Baso # (Auto) Abs Immat Gran (auto) Absolute Neuts (auto) Absolute Nucleated RBC Nucleated RBC % APTT Puncture Site ABG pH ABG pCO2 ABG pO2 ABG PO2/FiO2 Ratio ABG HCO3 ABG O2 Saturation ABG O2 Content ABG Base Excess A-a Gradient Oxyhemoglobin Total Hemoglobin O2 Delivery Device O2 Liters/Min Minute Volume Vent Rate Vent Mode FiO2 Tidal Volume PEEP Peak Inspir Pressure Pressure Support Sodium Potassium Chloride Carbon Dioxide Anion Gap BUN Creatinine Estim Creat Clear Calc Estimated GFR Glucose POC Capillary Glucose 85 122 H Lactic Acid Calcium Phosphorus Magnesium Total Bilirubin AST ALT Alkaline Phosphatase Troponin I 0.062 H* D Total Protein Albumin TSH (Reflex) Blood Type O Positive Antibody Screen Negative Crossmatch See Detail
[2025-02-04] MEDS: MIDAZOLAM 100MG/NS 100ML(*CRX) 100 MG/100 ML BAG IV CONT (14:25)
[2025-02-04] MEDS: SODIUM CHLORIDE 0.9% IV 250 ML 30 ML IV CONT (17:55)
[2025-02-04 18:15] LABS: Glucose Point of Care 105 mg/dl (65-105)
[2025-02-04] MEDS: AZITHROMYCIN 500 MG/NS 250 ML 500 MG/250 ML BAG 250 MG IVPB (20:43)
[2025-02-05] VITALS (35 sets, daily range): BP systolic 116–151; BP diastolic 72–100; PULSE 103–138; RESP 15–44; TEMP 37.3–38.5; O2SAT 88–100
[2025-02-05 00:28] LABS: Glucose Point of Care 111 mg/dl (65-105)
[2025-02-05] MEDS: PIPERACILLIN/TAZ 4.5G/NS 100ML 4.5 GM/100 ML BAG IVPB ×4 (00:30→17:56)
[2025-02-05] MEDS: LEVALBUTEROL NEB 1.25 MG/3 ML 0.63 MG INHALATION ×4 (02:10→20:10)
[2025-02-05] MEDS: IPRATROPIUM BR 0.02% INH SOLN 0.5 MG/2.5 ML VIAL INHALATION ×4 (02:11→20:10)
[2025-02-05] MEDS: METOPROLOL TARTRATE 25 MG TABLET PO ×2 (04:28→17:56)
[2025-02-05] MEDS: CENTRAL LINE FLUSH 10 ML IV PUSH ×3 (05:24→20:26)
[2025-02-05] MEDS: FENTANYL 2,500MCG/NS250ML(*CRX 2,500 MCG/250 ML BAG 7.5 MCG IV CONT (05:25)
[2025-02-05 05:39] LABS: Glucose Point of Care 107 mg/dl (65-105)
[2025-02-05 05:44] LABS: Basophils Percent Auto 0.2 % (0.2-1.2); Hematocrit 29.5 % (37.0-47.0); Hemoglobin 9.4 g/dL (12.0-15.0); Immature Granulocyte Absolute 0.07 K/mm3 (0.00-0.031); Immature Granulocyte Percent A 0.6 % (0-0.5); Lymphocytes Absolute Auto 1.78 K/mm3 (0.9-3.2); Lymphocytes Percent Auto 16.1 % (18.3-44.2); Mean Corpuscular HGB Conc 31.9 g/dl (32-36); Mean Corpuscular Hemoglobin 29.1 pg (26-34); Mean Corpuscular Volume 91.3 fl (80-100); Mean Platelet Volume 11.4 fl (7.4-10.4); Monocytes Percent Auto 8.6 % (2.6-8.5); Neutrophils Absolute Auto 8.2 K/mm3 (1.3-6.7); Neutrophils Percent Auto 74.5 % (45.5-73.1); Nucleated Red Blood Cells Perc 0.3 % (0.0-0.2); Platelet Count Result 239 k/mm3 (150-375); Red Blood Count 3.23 M/mm3 (4.2-5.4); Red Cell Distribution Width 15.7 % (11.5-14.5)
[2025-02-05 06:03] LABS: Lactic Acid Reflex 0.8 mmol/L (0.7-2.0)
[2025-02-05 07:20] LABS: Alanine Aminotransferase 29 U/L (6-35); Albumin Level 3.7 g/dL (3.5-5.1); Alkaline Phosphatase 80 U/L (38-126); Anion Gap 5 mmol/L (4-12); Aspartate Amino Transferase 32 U/L (14-36); Bilirubin,Total 0.9 mg/dL (0.2-1.3); Blood Urea Nitrogen 18 mg/dL (7-17); Calcium 9.2 mg/dL (8.4-10.2); Carbon Dioxide 35 mmol/L (22-30); Chloride 103 mmol/L (98-107); Estimated CRCL calculation 47 ml/min; Estimated Glomerular Filt Rate > 60; Glucose 106 mg/dL (65-110); Magnesium 2.6 mg/dL (1.6-2.3); Phosphorus 3.9 mg/dL (2.5-4.5); Potassium 3.7 mmol/L (3.4-5.0); Sodium 143 mmol/L (137-145)
[2025-02-05] MEDS: DOCUSATE SODIUM LIQ 100 MG/10 ML UDC PO ×2 (08:14→20:14)
[2025-02-05] MEDS: POTASSIUM CHLORIDE 20 MEQ PACKET (FOR LIQUID) 40 MEQ FEED TUBE (08:14)
[2025-02-05] MEDS: FUROSEMIDE INJ 40 MG/4 ML VIAL IV PUSH (08:14)
[2025-02-05] MEDS: IRON SUCROSE COMPLEX 200 MG in SODIUM CHLORIDE 0.9% IV 100 ML 220 MG IVPB (08:14)
[2025-02-05] MEDS: PANTOPRAZOLE SODIUM IV 40 MG VIAL IV PUSH ×2 (08:15→20:14)
[2025-02-05] MEDS: MINERAL OIL/WHITE PETROLATUM OINTMENT 1 APPLIC EACH EYE ×2 (08:15→20:14)
[2025-02-05] MEDS: polyethylene glycoL 3350 17 GM POWD.PACK PO (08:16)
--- NOTE | 2025-02-05 09:05 | WPDINTPN ---
Progress Note: A&P Assessment and Plan (1) Acute hypoxic respiratory failure: Code(s): J96.01 - Acute respiratory failure with hypoxia Status: Acute Assessment and Plan: 01/31/2025: Patient presented from [facility] with hypoxia, periods of apnea, and unresponsiveness. She was brought to the ED being bagged, she did not have a gag and was unresponsive in the ED so was intubated upon arrival to the ED. central line was also inserted as she was hypotensive CT scan showed right middle and right lower lobe consolidation. Since then patient has also received decent amount of IV fluids -currently on CMV mode of ventilation, peep of 5 and 35 % FiO2 -ABGs and chest x-ray reviewed, ventilator adjusted by decreasing the brain -continue bronchodilators and Mucomyst nebulizer -Lasix IV -sedation holiday and evaluate for weaning trial today (2) AMS (altered mental status): Qualifiers: Altered mental status type: unspecified Qualified Code(s): R41.82 - Altered mental status, unspecified Code(s): R41.82 - Altered mental status, unspecified Status: Acute Assessment and Plan: Encephalopathy could be related to hypoxia, hypercapnia, pneumonia/infection/hypotension, could be related to medication -head CT negative at the time of presentation -currently intubated, sedated -hold sedation (3) Pneumonia: Qualifiers: Pneumonia type: due to unspecified organism Laterality: right Lung location: unspecified part of lung Qualified Code(s): J18.9 - Pneumonia, unspecified organism Code(s): J18.9 - Pneumonia, unspecified organism Status: Acute Assessment and Plan: Chest x-ray and CTA chest show right lower lobe consolidation -according the [facility] records: Repeat CT chest showed interval development of new airspace opacities raising concern for aspiration pneumonia. She was transition to Zosyn from cefepime. MBS performed on 01/26 at [facility] which showed no evidence of aspiration despite coughing especially with swallowing. -continue Zosyn, azithromycin (01/31) -MRSA screen is negative, vancomycin discontinued (02/01) (4) Sepsis: Code(s): A41.9 - Sepsis, unspecified organism Status: Acute Assessment and Plan: Patient presented with altered mental status, hypoxia, apnea, pneumonia. -lactic acid was normal -blood pressures are borderline -patient was adequately fluid-resuscitated -status post albumin for volume expansion -off Levophed, -continue to monitor urine output and renal function -Lasix IV (5) Cerebral palsy: Code(s): G80.9 - Cerebral palsy, unspecified Status: Acute Assessment and Plan: Patient with cerebral palsy, mild intellectual disability, schizophrenia, nonverbal at baseline according the chart -patient on risperidone, will restart prior to extubation as she is currently sedated and intubated (6) Anemia: Code(s): D64.9 - Anemia, unspecified Status: Acute Assessment and Plan: Patient admitted with a hemoglobin of 10.3 on 01/31 -02/01: Hemoglobin dropped to 7.7, a repeat CBC was done which showed a hemoglobin of 7.3 -will check stools for occult blood, -folic acid and vitamin B12 level within normal limits -low iron levels, low TIBC, will give Venofer -LDH is normal, haptoglobin is pending -Protonix IV q.12 hours -continue to monitor (7) Electrolyte imbalance: Code(s): E87.8 - Other disorders of electrolyte and fluid balance, not elsewhere classified Status: Acute Assessment and Plan: Hypernatremia is improving (8) Sinus tachycardia: Code(s): R00.0 - Tachycardia, unspecified Status: Acute Assessment and Plan: 02/04: Patient developed SVT/sinus tachycardia overnight with rates in the 180-200s. Was given IV metoprolol x1 with improvement which brought her rate start to 130s. -could be multifactorial, related to sepsis, anemia, coronary artery disease -TSH normal -will continue metoprolol -repeat EKG showed sinus tachycardia - mild elevation in troponin level with the levels have trended down -cardiology consult 02/02/2025: Echocardiogram Summary 1. Complete two-dimensional, color flow and Doppler transthoracic echocardiogram is performed. 2. Left ventricular chamber dimension is normal. 3. Left ventricular systolic function is normal, estimated at 60-65%. 4. The left ventricular diastolic function is grade I diastolic dysfunction. 5. E/e' 7 is not elevated. 6. There is mild aortic valve sclerosis. 7. There is trace tricuspid valve regurgitation. 8. Mild pulmonary hypertension, estimated pulmonary arterial systolic pressure is 41 mmHg. (9) Constipation: Code(s): K59.00 - Constipation, unspecified Status: Acute Assessment and Plan: 02/04: KUB showed moderate fecal retention -patient already on docusate sodium and senna and MiraLax -will add lactulose and soapsuds enema Plan DVT prophylaxis: SCDs. Hold Lovenox due to significant drop in hemoglobin Stress ulcer prophylaxis: Protonix IV q.12 hours Nutrition: Tolerating tube feeds, patient on stool softener and MiraLax Code Status: Full -patient is a guardian/bear of the state ([place]) Critical Care Time Spent: 32 minutes Due to a high probability of clinically significant, life threatening deterioration, the patient required my highest level of preparedness to intervene emergently and I personally spent this critical care time directly and personally managing the patient. This critical care time included obtaining a history; examining the patient; pulse oximetry; ordering and review of studies; arranging urgent treatment with development of a management plan; evaluation of patient's response to treatment; frequent reassessment; and discussions with other providers. It was exclusive of separately billable procedures and treating other patients and teaching time. Please see Assessment and Plan section and the rest of the note for further information on patient assessment and treatment This dictation may have been done utilizing a voice recognition system. Attempts have been made to correct errors. However, there may be uncorrected grammatical, spelling, and recognitions errors present. Subjective Date/time seen: 02/05/25 Overnight events reviewed. Low-grade fever Continues to be on mechanical ventilation 35% FiO2 Sinus tachycardia on the monitor Continues to be sedated with fentanyl worse Tolerating tube feeds. Other Vitals acceptable Interval history: Reason for consult: Acute respiratory failure, pneumonia, altered mental status, unresponsiveness, anemia Review of Systems Review of Systems: ROS unobtainable: Yes unobtainable due to endotracheal tube, unobtainable due to medical condition and unobtainable due to mental status Exam Narrative: General: Petite female/malnourished, in no acute distress HEENT:? Pupils are pinpoint, sluggish, ETT in place Neck:? Supple Respiratory:? Coarse breath sounds bilaterally, rales on right base, no wheezing, adequate air entry otherwise Cardiac:? S1-S2 normal, regular rate and rhythm Abdomen:? Soft, nontender, nondistended, hypoactive bowel sounds Extremities:? Trace edema, bilateral pedal pulses are palpable Neuro:? Intubated, sedated, does not open her eyes or follow simple commands but does resist eye examination with a flashlight Skin:? No skin lesions noted Psych:? Unable to assess at this time Objective Data Vital Signs Vital Signs: Vital Signs - 24 hr 02/04/25 10:00 02/04/25 10:00 02/04/25 10:00 Temperature 37.9 C H Pulse Rate 123 H 123 H 123 H Respiratory Rate 20 20 Blood Pressure 118/82 Pulse Oximetry 100 Oxygen Delivery Fraction of Inspired Oxygen 02/04/25 10:00 02/04/25 10:26 02/04/25 12:00 Temperature Pulse Rate 123 H 122 H Respiratory Rate 20 Blood Pressure Pulse Oximetry 100 100 Oxygen Delivery Mechanical Ventilation Mechanical Ventilation Fraction of Inspired Oxygen 40 40 02/04/25 12:00 02/04/25 12:00 02/04/25 12:00 Temperature Pulse Rate 114 H 114 H Respiratory Rate 20 Blood Pressure 131/87 Pulse Oximetry 100 Oxygen Delivery Fraction of Inspired Oxygen 40 02/04/25 12:00 02/04/25 12:00 02/04/25 13:20 Temperature Pulse Rate 114 H 114 H 117 H Respiratory Rate 20 20 Blood Pressure Pulse Oximetry 100 Oxygen Delivery Mechanical Ventilation Fraction of Inspired Oxygen 40 02/04/25 13:20 02/04/25 13:30 02/04/25 13:48 Temperature Pulse Rate 117 H 116 H 120 H Respiratory Rate 20 20 20 Blood Pressure Pulse Oximetry Oxygen Delivery Fraction of Inspired Oxygen 02/04/25 14:00 02/04/25 14:00 02/04/25 14:00 Temperature Pulse Rate 121 H 119 H 119 H Respiratory Rate 20 20 Blood Pressure 134/89 Pulse Oximetry 100 Oxygen Delivery Fraction of Inspired Oxygen 02/04/25 14:25 02/04/25 16:00 02/04/25 16:00 Temperature Pulse Rate 120 H 120 H Respiratory Rate 20 20 Blood Pressure Pulse Oximetry 100 Oxygen Delivery Mechanical Ventilation Fraction of Inspired Oxygen 40 02/04/25 16:00 02/04/25 16:00 02/04/25 16:00 Temperature Pulse Rate 120 H 121 H Respiratory Rate 20 Blood Pressure Pulse Oximetry Oxygen Delivery Fraction of Inspired Oxygen 40 02/04/25 16:00 02/04/25 16:13 02/04/25 16:29 Temperature 37.9 C H 37.9 C H 37.8 C H Pulse Rate 122 H 120 H 120 H Respiratory Rate 23 H 20 20 Blood Pressure 127/84 131/88 124/74 Pulse Oximetry 100 100 100 Oxygen Delivery Fraction of Inspired Oxygen 02/04/25 16:56 02/04/25 17:29 02/04/25 17:55 Temperature 37.7 C H Pulse Rate 117 H 114 H 113 H Respiratory Rate 20 Blood Pressure 128/85 Pulse Oximetry 100 100 Oxygen Delivery Mechanical Ventilation Fraction of Inspired Oxygen 40 02/04/25 18:00 02/04/25 18:00 02/04/25 18:00 Temperature Pulse Rate 118 H 118 H 113 H Respiratory Rate 20 20 Blood Pressure Pulse Oximetry Oxygen Delivery Fraction of Inspired Oxygen 02/04/25 18:00 02/04/25 18:29 02/04/25 18:52 Temperature 37.6 C 37.6 C 37.6 C H Pulse Rate 114 H 113 H 115 H Respiratory Rate 20 20 20 Blood Pressure 137/86 143/97 H 147/97 H Pulse Oximetry 100 100 100 Oxygen Delivery Fraction of Inspired Oxygen 02/04/25 19:53 02/04/25 19:53 02/04/25 20:00 Temperature Pulse Rate 113 H 113 H Respiratory Rate 20 20 Blood Pressure Pulse Oximetry 100 100 Oxygen Delivery Mechanical Ventilation Mechanical Ventilation Fraction of Inspired Oxygen 40 40 02/04/25 20:00 02/04/25 20:00 02/04/25 20:00 Temperature 37.6 C H Pulse Rate 114 H 114 H Respiratory Rate 20 20 Blood Pressure 148/97 H Pulse Oximetry 100 Oxygen Delivery Fraction of Inspired Oxygen 40 02/04/25 20:00 02/04/25 20:00 02/04/25 20:04 Temperature Pulse Rate 114 H 113 H 113 H Respiratory Rate 20 20 Blood Pressure Pulse Oximetry Oxygen Delivery Fraction of Inspired Oxygen 02/04/25 22:00 02/04/25 22:00 02/04/25 22:00 Temperature 37.5 C Pulse Rate 107 H 107 H 107 H Respiratory Rate 20 20 20 Blood Pressure 130/90 Pulse Oximetry 100 Oxygen Delivery Fraction of Inspired Oxygen 02/04/25 22:00 02/04/25 23:20 02/05/25 00:00 Temperature Pulse Rate 107 H 108 H 109 H Respiratory Rate 20 Blood Pressure Pulse Oximetry 100 Oxygen Delivery Mechanical Ventilation Fraction of Inspired Oxygen 40 02/05/25 00:00 02/05/25 00:00 02/05/25 00:00 Temperature Pulse Rate 109 H 110 H Respiratory Rate 20 20 Blood Pressure Pulse Oximetry 100 Oxygen Delivery Mechanical Ventilation Fraction of Inspired Oxygen 40 02/05/25 00:00 02/05/25 00:00 02/05/25 02:00 Temperature 37.7 C H Pulse Rate 109 H 112 H Respiratory Rate 20 Blood Pressure 150/99 H Pulse Oximetry 100 Oxygen Delivery Fraction of Inspired Oxygen 40 02/05/25 02:00 02/05/25 02:00 02/05/25 02:00 Temperature 37.7 C H Pulse Rate 112 H 112 H 112 H Respiratory Rate 20 20 20 Blood Pressure 135/93 H Pulse Oximetry 100 Oxygen Delivery Fraction of Inspired Oxygen 02/05/25 02:10 02/05/25 02:10 02/05/25 02:20 Temperature Pulse Rate 113 H 113 H 113 H Respiratory Rate 20 20 Blood Pressure Pulse Oximetry 100 Oxygen Delivery Mechanical Ventilation Fraction of Inspired Oxygen 40 02/05/25 04:00 02/05/25 04:00 02/05/25 04:00 Temperature Pulse Rate 112 H 112 H Respiratory Rate 20 Blood Pressure Pulse Oximetry 100 Oxygen Delivery Mechanical Ventilation Fraction of Inspired Oxygen 40 40 02/05/25 04:00 02/05/25 04:00 02/05/25 04:00 Temperature 37.6 C H Pulse Rate 112 H 112 H 112 H Respiratory Rate 20 20 20 Blood Pressure 151/100 H Pulse Oximetry 100 Oxygen Delivery Fraction of Inspired Oxygen 02/05/25 04:28 02/05/25 04:44 02/05/25 05:25 Temperature Pulse Rate 115 H 113 H 119 H Respiratory Rate 22 H Blood Pressure Pulse Oximetry 100 Oxygen Delivery Mechanical Ventilation Fraction of Inspired Oxygen 40 02/05/25 05:25 02/05/25 06:00 02/05/25 06:00 Temperature 37.3 C Pulse Rate 119 H 115 H 115 H Respiratory Rate 22 H 22 H Blood Pressure 143/90 H Pulse Oximetry 100 Oxygen Delivery Fraction of Inspired Oxygen 02/05/25 06:00 02/05/25 06:00 02/05/25 08:00 Temperature 37.4 C Pulse Rate 115 H 115 H 116 H Respiratory Rate 22 H 22 H 22 H Blood Pressure 148/95 H Pulse Oximetry 100 Oxygen Delivery Fraction of Inspired Oxygen 02/05/25 08:07 02/05/25 08:07 02/05/25 08:22 Temperature Pulse Rate 121 H 121 H 118 H Respiratory Rate 20 20 Blood Pressure Pulse Oximetry 100 Oxygen Delivery Mechanical Ventilation Fraction of Inspired Oxygen 35 Intake/Output Intake/Output: Intake & Output 02/02/25 02/03/25 02/04/25 02/05/25 23:59 23:59 23:59 23:59 Intake Total 1980.1 2522.3 2940.3 1005.6 Output Total 1200 1250 4475 1500 Balance 780.1 1272.3 -1534.7 -494.4 Meds/Results Medications: Active Medications Generic Name Dose Route Start Last Admin Trade Name Freq PRN Reason Stop Dose Admin Acetaminophen 650 mg 02/03/25 22:36 02/03/25 22:53 Acetaminophen Elixir 325 Mg/10.15 Ml Udc PO 650 mg Q6H PRN Administration Mild Pain (1-3) or Fever Dextrose 12.5 gm 02/01/25 07:23 Dextrose 50% 25 Gm/50 Ml Syringe IV PUSH PRN PRN Hypoglycemia Protocol Docusate Sodium 100 mg 02/01/25 09:40 02/05/25 08:14 Docusate Sodium Liq 100 Mg/10 Ml Udc PO 100 mg Q12HR HAIM Administration Glucagon 1 mg 02/01/25 07:23 Glucagon For Inj 1 Mg Vial IM PRN PRN Hypoglycemia Protocol Glucose 15 gm 02/01/25 07:23 Glucose Oral Gel 15 Gm Of Glucse In 37.5 Gm Tube PO PRN PRN Hypoglycemia Protocol Piperacillin Sod/Tazobactam Sod 4.5 gm in 100 mls @ 200 mls/hr 01/31/25 23:00 02/05/25 05:53 Zosyn 4.5 Gm/Ns 100 Ml IVPB Infused Q6HR HAIM Infusion Dextrose 1,000 mls @ 100 mls/hr 02/01/25 07:23 Dextrose 5% 1,000 Ml IVPB PRN PRN Hypoglycemia Protocol Fentanyl Citrate 2,500 mcg in 250 mls @ 7.5 mls/hr 02/01/25 16:15 02/05/25 06:00 Fentanyl 2,500 Mcg/Ns 250 Ml IV CONT 75 mcg/hr .[id number] HAIM 7.5 mls/hr Infusion 75 MCG/HR Midazolam HCl 100 mg in 100 mls @ 3 mls/hr 02/01/25 16:15 02/05/25 06:00 Versed 100 Mg/Ns 100 Ml IV CONT 3 mg/hr .[id number] HAIM 3 mls/hr Infusion 3 MG/HR Iron Sucrose 200 mg/ Sodium 110 mls @ 220 mls/hr 02/03/25 10:30 02/05/25 08:14 Chloride IVPB 02/05/25 09:29 220 mls/hr DAILY HAIM Administration Insulin Aspart 3 - 6 units 02/01/25 12:00 02/05/25 05:24 Insulin Aspart (*Bkc) 100 Units/Ml SUB-Q Not Given Q6HR HAIM Protocol Ipratropium [place] 0.5 mg 02/04/25 14:00 02/05/25 08:07 Ipratropium Br 0.02% Inh Soln 0.5 Mg/2.5 Ml Vial INHALATION 0.5 mg Q6HRT HAIM Administration Levalbuterol HCl 0.63 mg 02/04/25 14:00 02/05/25 08:07 Levalbuterol Neb 1.25 Mg/3 Ml INHALATION 0.63 mg Q6HRT HAIM Administration Metoprolol Tartrate 5 mg 02/04/25 04:26 02/04/25 04:58 Metoprolol Tartrate Inj 5 Mg/5 Ml Vial IV PUSH 5 mg Q6H PRN Administration HR > 130 Metoprolol Tartrate 25 mg 02/04/25 09:00 02/05/25 04:28 Metoprolol Tartrate 25 Mg Tablet PO 25 mg BID HAIM Administration Multi-Ingred Cream/Lotion/Oil/Oint 1 applic 02/01/25 21:00 02/05/25 08:15 Mineral Oil/White Petrolatum Ointment EACH EYE 1 applic Q12HR HAIM Administration Ondansetron HCl 4 mg 01/31/25 16:00 Ondansetron Inj 4 Mg/2 Ml Vial IV PUSH Q4H PRN Nausea Pantoprazole Sodium 40 mg 02/01/25 09:00 02/05/25 08:15 Pantoprazole Sodium Iv 40 Mg Vial IV PUSH 40 mg Q12HR HAIM Administration Polyethylene Glycol 17 gm 02/01/25 09:25 02/05/25 08:16 Polyethylene Glycol 3350 17 Gm Powd.Pack PO 17 gm QAM HAIM Administration Sodium Chloride 10 ml 02/01/25 14:00 02/05/25 05:24 Central Line Flush IV PUSH 10 ml Q8HR HAIM Administration Sodium Chloride 20 ml 02/01/25 06:37 Central Line Flush IV PUSH PRN PRN after blood draws Radiology Results: ITS Impressions Head CT 01/31/25 15:47 Impression: No acute intracranial hemorrhage or suspicious mass effect. Chest/Abdomen/Pelvis CTA 01/31/25 15:49 IMPRESSION: Right middle and lower lobe pneumonia with dense consolidation. Left basilar atelectasis. No pulmonary embolus. No aortic dissection. Oral contrast opacifies the entirety of the colon. Supportive lines in good position. No acute pathology within the remainder of the examination, as detailed above. Abdomen X-Ray 02/04/25 12:06 IMPRESSION: Orogastric tube in good position and ready for immediate use. Contrast opacified fecal stasis is identified distending the rectum extending to the level of the dilated splenic flexure. Chest X-Ray 02/05/25 06:17 IMPRESSION: 1. Airspace opacities in right mid and lower lung zones and left lower lung zone with improvement on the right, consistent with atelectasis versus pneumonia. 2. Small right pleural effusion. Labs Labs: Laboratory Results - last 24 hr 02/04/25 02/04/25 02/04/25 11:16 11:19 11:21 WBC RBC Hgb Hct MCV MCH MCHC RDW Plt Count MPV Immature Gran % (Auto) Neut % (Auto) Lymph % (Auto) [place] % (Auto) Eos % (Auto) Baso % (Auto) Lymph # (Auto) [place] # (Auto) Eos # (Auto) Baso # (Auto) Abs Immat Gran (auto) Absolute Neuts (auto) Absolute Nucleated RBC Nucleated RBC % APTT Sodium Potassium Chloride Carbon Dioxide Anion Gap BUN Creatinine Estim Creat Clear Calc Estimated GFR Glucose POC Capillary Glucose 85 122 H Lactic Acid Calcium Phosphorus Magnesium Total Bilirubin AST ALT Alkaline Phosphatase Troponin I 0.062 H* D Total Protein Albumin Blood Type O Positive Antibody Screen Negative Crossmatch See Detail 02/04/25 02/04/25 02/05/25 14:33 17:56 00:18 WBC RBC Hgb Hct MCV MCH MCHC RDW Plt Count MPV Immature Gran % (Auto) Neut % (Auto) Lymph % (Auto) [place] % (Auto) Eos % (Auto) Baso % (Auto) Lymph # (Auto) [place] # (Auto) Eos # (Auto) Baso # (Auto) Abs Immat Gran (auto) Absolute Neuts (auto) Absolute Nucleated RBC Nucleated RBC % APTT Sodium Potassium Chloride Carbon Dioxide Anion Gap BUN Creatinine Estim Creat Clear Calc Estimated GFR Glucose POC Capillary Glucose 105 111 H Lactic Acid Calcium Phosphorus Magnesium Total Bilirubin AST ALT Alkaline Phosphatase Troponin I 0.050 H* Total Protein Albumin Blood Type Antibody Screen Crossmatch 02/05/25 02/05/25 02/05/25 04:44 05:12 05:20 WBC 11.0 H RBC 3.23 L Hgb 9.4 L Hct 29.5 L MCV 91.3 MCH 29.1 MCHC 31.9 L RDW 15.7 H Plt Count 239 MPV 11.4 H Immature Gran % (Auto) 0.6 H Neut % (Auto) 74.5 H Lymph % (Auto) 16.1 L [place] % (Auto) 8.6 H Eos % (Auto) 0.0 Baso % (Auto) 0.2 Lymph # (Auto) 1.78 [place] # (Auto) 1.0 H Eos # (Auto) 0.0 Baso # (Auto) 0.0 Abs Immat Gran (auto) 0.07 H Absolute Neuts (auto) 8.2 H Absolute Nucleated RBC 0.030 H Nucleated RBC % 0.3 H APTT 38.0 H Sodium 143 Potassium 3.7 Chloride 103 Carbon Dioxide 35 H Anion Gap 5 BUN 18 H Creatinine 0.65 L Estim Creat Clear Calc 47 Estimated GFR > 60 Glucose 106 POC Capillary Glucose 107 H Lactic Acid 0.8 Calcium 9.2 Phosphorus 3.9 Magnesium 2.6 H Total Bilirubin 0.9 AST 32 ALT 29 Alkaline Phosphatase 80 Troponin I Total Protein 7.0 Albumin 3.7 Blood Type Antibody Screen Crossmatch Quality VTE Prophylaxis VTE prophylaxis: mechanical ordered
--- NOTE | 2025-02-05 10:23 | PCFNICU ---
ICU Rounding Note: Pt current nutrition is Vital AF 1.2 at 50 m/hr. Last recorded weight is 43.1 kg, up from 38.8 kg on admit. Bowel Motility: No BM reported-Colace and Miralax are being administered. Labs Reviewed: Mg 2.6, Cr 0.65, BUN 18, Hct 29.5, Hgb 9.4 Meds Noted: Versed, Levophed, Fentanyl, Colace, Miralax, Zosyn. Skin: WNL Additional Notes: Spoke with nursing today, tube feedings on hold for possible extubation today. If patient does not get extubated today, recommend to continue tube feedings of Vital AF 1.2 goal rate at 50 ml/hr with Flush of 80 ml q 4 hours. Agree with diet orders. Following daily in ICU rounds. Will monitor weight, labs, skin, diet orders, meds every Wednesday and Wednesday.
[2025-02-05 11:30] LABS: Glucose Point of Care 124 mg/dl (65-105)
--- NOTE | 2025-02-05 14:35 | WPDPROCEDUR ---
Procedures Intubation Intubation Date: 02/05/25 Intubation Time: 14:15 Consent: Patient was already intubated and was accidentally extubated. She is a full code. She is unable to provide consent. Procedure was done as medical necessity A pre-procedural Time-Out was completed immediately before starting the procedure and confirmed: Patient Identification, Site, Procedure, Patient Position and the Availability of Requisite Equipment: Yes Sedative: etomidate Mg given: 20 Laryngoscope: fiber optic video scope Assist device used: fiber optic device ET tube size: 7.5 Tube secured depth (cm): 24 Tube secured location: lips Tube placement confirmation: visualized tube passing through cords, equal breath sounds bilaterally, no breath sounds over epigastrium and confirmation by capnometry Patient tolerated procedure: well Intubation complications: none Additional comments: Patient was mechanical ventilation and was off of sedation for weaning trial. Patient was not awake for weaning trial and caught accidentally extubated during a turn for nursing staff. We initially tried to see if patient could maintain her is oxygenation without re-intubation. Her oxygenation level was adequate on nasal cannula 3 L but patient was tachypneic with respiratory rate increase up to 40s. She was not a candidate for BiPAP due to her mental status. Patient was reintubated with 20 mg of etomidate. Will re-evaluate weaning tomorrow
[2025-02-05] MEDS: dexmedeTOMIDine 400 MCG/100 ML 400 MCG/100 ML BAG IV CONT (14:56)
[2025-02-05] MEDS: ETOMIDATE 20 MG/10 ML AMPUL IV PUSH (14:57)
--- NOTE | 2025-02-05 15:23 | PCRCNOTE ---
Patient's breathing treatment and ventilator check done by RT @ 1353. RT left and went to another patient's room and while assessing that patient, this patient's ventilator was alarming. Upon entering around 1407 RN had just finished using the lift to turn the patient and the ETT was now farther out of the patient but still in her mouth due to still being attached to the ETAD. ETT was far enough out that the ventilator was not delivering anything. Dr. Taylor called into the room and stated to take out the ETT and place on a nasal cannula. Started patient on 2L then quickly titrated to 6L. Patient was tachycardic and tachypneic but O2 sat was doing okay so titrated to 5L then 3L. Patient slowly became more tachycardic and tachypneic and O2 sats started dropping. This resulted in patient being reintubated @ 1435. Patient placed back on previous settings @ VT 300 Rate 18 Peep 5 and 35% FiO2 with 7.5 ETT 22 @ the lip.
--- NOTE | 2025-02-05 15:55 | PM.IMPN ---
Progress Note: A&P Assessment and Plan (1) Acute hypoxic respiratory failure: Code(s): J96.01 - Acute respiratory failure with hypoxia Status: Acute Assessment and Plan: 01/31/2025: Patient presented from [facility] with hypoxia, periods of apnea, and unresponsiveness. She was brought to the ED being bagged, she did not have a gag and was unresponsive in the ED so was intubated upon arrival to the ED. central line was also inserted as she was hypotensive -chest x-ray showed right lower lobe pneumonia/consolidation -continue bronchodilators and Mucomyst nebulizer Patient accidentally extubated and needed to be intubated 02/05/2025 (2) AMS (altered mental status): Qualifiers: Altered mental status type: unspecified Qualified Code(s): R41.82 - Altered mental status, unspecified Code(s): R41.82 - Altered mental status, unspecified Status: Acute Assessment and Plan: Encephalopathy could be related to hypoxia, hypercapnia, pneumonia/infection/hypotension, could be related to medication -currently intubated, sedated -will wean sedation as planned (3) Pneumonia: Qualifiers: Pneumonia type: due to unspecified organism Laterality: right Lung location: unspecified part of lung Qualified Code(s): J18.9 - Pneumonia, unspecified organism Code(s): J18.9 - Pneumonia, unspecified organism Status: Acute Assessment and Plan: Chest x-ray and CTA chest show right lower lobe consolidation -according the [facility] records: Repeat CT chest showed interval development of new airspace opacities raising concern for aspiration pneumonia. She was transition to Zosyn from cefepime. MBS performed on 01/26 at [facility] which showed no evidence of aspiration despite coughing especially with swallowing. -continue Zosyn, azithromycin (01/31) -MRSA screen is negative, vancomycin discontinued (02/01) (4) Sepsis: Code(s): A41.9 - Sepsis, unspecified organism Status: Acute Assessment and Plan: Patient presented with altered mental status, hypoxia, apnea, pneumonia. -lactic acid was normal -blood pressures are borderline -patient was adequately fluid-resuscitated -status post albumin for volume expansion -off Levophed, -continue to monitor urine output and renal function (5) Cerebral palsy: Code(s): G80.9 - Cerebral palsy, unspecified Status: Acute Assessment and Plan: Patient with cerebral palsy, mild intellectual disability, schizophrenia, nonverbal at baseline according the chart -patient on risperidone, will restart prior to extubation as she is currently sedated and intubated (6) Anemia: Code(s): D64.9 - Anemia, unspecified Status: Acute Assessment and Plan: Patient admitted with a hemoglobin of 10.3 on 01/31 -02/01: Hemoglobin dropped to 7.7, a repeat CBC was done which showed a hemoglobin of 7.3 -will check stools for occult blood, -folic acid and vitamin B12 level within normal limits -low iron levels, low TIBC, will give Venofer -LDH is normal, haptoglobin is pending -Protonix IV q.12 hours -continue to monitor (7) Electrolyte imbalance: Code(s): E87.8 - Other disorders of electrolyte and fluid balance, not elsewhere classified Status: Acute Assessment and Plan: Hypernatremia, improving, (8) Sinus tachycardia: Code(s): R00.0 - Tachycardia, unspecified Status: Acute Assessment and Plan: 02/04: Patient developed SVT/sinus tachycardia overnight with rates in the 180-200s. Was given IV metoprolol x1 with improvement which brought her rate start to 130s. -could be multifactorial, related to sepsis, anemia, coronary artery disease -restarted patient's home a metoprolol -repeat EKG showed sinus tachycardia -troponin has been ordered and pending -cardiology consulted 02/02/2025: Echocardiogram Summary 1. Complete two-dimensional, color flow and Doppler transthoracic echocardiogram is performed. 2. Left ventricular chamber dimension is normal. 3. Left ventricular systolic function is normal, estimated at 60-65%. 4. The left ventricular diastolic function is grade I diastolic dysfunction. 5. E/e' 7 is not elevated. 6. There is mild aortic valve sclerosis. 7. There is trace tricuspid valve regurgitation. 8. Mild pulmonary hypertension, estimated pulmonary arterial systolic pressure is 41 mmHg. (9) Constipation: Code(s): K59.00 - Constipation, unspecified Status: Acute Assessment and Plan: 02/04: KUB showed moderate fecal retention -patient already on docusate sodium and senna and MiraLax -added lactulose and soapsuds enema Plan DVT prophylaxis: SCDs. Hold Lovenox due to significant drop in hemoglobin Stress ulcer prophylaxis: Protonix IV q.12 hours Nutrition: Tolerating tube feeds, patient on stool softener and MiraLax Code Status: Full -patient is a guardian/bear of the state ([place]) Subjective Date/time seen: 02/05/25 15:55 Interval history: Events noted. Remains intubated and sedated Review of Systems Review of Systems: ROS unobtainable: Yes unobtainable due to endotracheal tube Exam Narrative: General: Petite female/malnourished, in no acute distress HEENT:? Pupils are pinpoint, sluggish, ETT in place Neck:? Supple Respiratory:? Coarse breath sounds bilaterally, rales on right base, no wheezing, adequate air entry otherwise Cardiac:? S1-S2 normal, regular rate and rhythm Abdomen:? Soft, nontender, nondistended, hypoactive bowel sounds Extremities:? Trace edema, bilateral pedal pulses are palpable Neuro:? Intubated, sedated, does not open her eyes or follow simple commands but does resist eye examination with a flashlight Skin:? No skin lesions noted Psych:? Unable to assess at this time Objective Data Vital Signs Vital Signs: Vital Signs - 24 hr 02/04/25 16:00 02/04/25 16:00 02/04/25 16:00 Temperature Pulse Rate 120 H 120 H Respiratory Rate 20 20 Blood Pressure Pulse Oximetry 100 Oxygen Delivery Mechanical Ventilation Oxygen Flow Rate Fraction of Inspired Oxygen 40 02/04/25 16:00 02/04/25 16:00 02/04/25 16:00 Temperature 100.2 F H Pulse Rate 121 H 122 H Respiratory Rate 23 H Blood Pressure 127/84 Pulse Oximetry 100 Oxygen Delivery Oxygen Flow Rate Fraction of Inspired Oxygen 40 02/04/25 16:13 02/04/25 16:29 02/04/25 16:56 Temperature 100.2 F H 100.1 F H Pulse Rate 120 H 120 H 117 H Respiratory Rate 20 20 Blood Pressure 131/88 124/74 Pulse Oximetry 100 100 100 Oxygen Delivery Mechanical Ventilation Oxygen Flow Rate Fraction of Inspired Oxygen 40 02/04/25 17:29 02/04/25 17:55 02/04/25 18:00 Temperature 99.8 F H Pulse Rate 114 H 113 H 118 H Respiratory Rate 20 20 Blood Pressure 128/85 Pulse Oximetry 100 Oxygen Delivery Oxygen Flow Rate Fraction of Inspired Oxygen 02/04/25 18:00 02/04/25 18:00 02/04/25 18:00 Temperature 99.6 F Pulse Rate 118 H 113 H 114 H Respiratory Rate 20 20 Blood Pressure 137/86 Pulse Oximetry 100 Oxygen Delivery Oxygen Flow Rate Fraction of Inspired Oxygen 02/04/25 18:29 02/04/25 18:52 02/04/25 19:53 Temperature 99.6 F 99.7 F H Pulse Rate 113 H 115 H 113 H Respiratory Rate 20 20 Blood Pressure 143/97 H 147/97 H Pulse Oximetry 100 100 100 Oxygen Delivery Mechanical Ventilation Oxygen Flow Rate Fraction of Inspired Oxygen 40 02/04/25 19:53 02/04/25 20:00 02/04/25 20:00 Temperature Pulse Rate 113 H Respiratory Rate 20 20 Blood Pressure Pulse Oximetry 100 Oxygen Delivery Mechanical Ventilation Oxygen Flow Rate Fraction of Inspired Oxygen 40 40 02/04/25 20:00 02/04/25 20:00 02/04/25 20:00 Temperature 99.7 F H Pulse Rate 114 H 114 H 114 H Respiratory Rate 20 20 20 Blood Pressure 148/97 H Pulse Oximetry 100 Oxygen Delivery Oxygen Flow Rate Fraction of Inspired Oxygen 02/04/25 20:00 02/04/25 20:04 02/04/25 22:00 Temperature 99.5 F Pulse Rate 113 H 113 H 107 H Respiratory Rate 20 20 Blood Pressure 130/90 Pulse Oximetry 100 Oxygen Delivery Oxygen Flow Rate Fraction of Inspired Oxygen 02/04/25 22:00 02/04/25 22:00 02/04/25 22:00 Temperature Pulse Rate 107 H 107 H 107 H Respiratory Rate 20 20 Blood Pressure Pulse Oximetry Oxygen Delivery Oxygen Flow Rate Fraction of Inspired Oxygen 02/04/25 23:20 02/05/25 00:00 02/05/25 00:00 Temperature Pulse Rate 108 H 109 H 109 H Respiratory Rate 20 20 Blood Pressure Pulse Oximetry 100 Oxygen Delivery Mechanical Ventilation Oxygen Flow Rate Fraction of Inspired Oxygen 40 02/05/25 00:00 02/05/25 00:00 02/05/25 00:00 Temperature Pulse Rate 110 H Respiratory Rate 20 Blood Pressure Pulse Oximetry 100 Oxygen Delivery Mechanical Ventilation Oxygen Flow Rate Fraction of Inspired Oxygen 40 40 02/05/25 00:00 02/05/25 02:00 02/05/25 02:00 Temperature 99.9 F H 99.9 F H Pulse Rate 109 H 112 H 112 H Respiratory Rate 20 20 Blood Pressure 150/99 H 135/93 H Pulse Oximetry 100 100 Oxygen Delivery Oxygen Flow Rate Fraction of Inspired Oxygen 02/05/25 02:00 02/05/25 02:00 02/05/25 02:10 Temperature Pulse Rate 112 H 112 H 113 H Respiratory Rate 20 20 Blood Pressure Pulse Oximetry 100 Oxygen Delivery Mechanical Ventilation Oxygen Flow Rate Fraction of Inspired Oxygen 40 02/05/25 02:10 02/05/25 02:20 02/05/25 04:00 Temperature Pulse Rate 113 H 113 H 112 H Respiratory Rate 20 20 20 Blood Pressure Pulse Oximetry 100 Oxygen Delivery Mechanical Ventilation Oxygen Flow Rate Fraction of Inspired Oxygen 40 02/05/25 04:00 02/05/25 04:00 02/05/25 04:00 Temperature 99.7 F H Pulse Rate 112 H 112 H Respiratory Rate 20 Blood Pressure 151/100 H Pulse Oximetry 100 Oxygen Delivery Oxygen Flow Rate Fraction of Inspired Oxygen 40 02/05/25 04:00 02/05/25 04:00 02/05/25 04:28 Temperature Pulse Rate 112 H 112 H 115 H Respiratory Rate 20 20 Blood Pressure Pulse Oximetry Oxygen Delivery Oxygen Flow Rate Fraction of Inspired Oxygen 02/05/25 04:44 02/05/25 05:25 02/05/25 05:25 Temperature Pulse Rate 113 H 119 H 119 H Respiratory Rate 22 H 22 H Blood Pressure Pulse Oximetry 100 Oxygen Delivery Mechanical Ventilation Oxygen Flow Rate Fraction of Inspired Oxygen 40 02/05/25 06:00 02/05/25 06:00 02/05/25 06:00 Temperature 99.2 F Pulse Rate 115 H 115 H 115 H Respiratory Rate 22 H 22 H Blood Pressure 143/90 H Pulse Oximetry 100 Oxygen Delivery Oxygen Flow Rate Fraction of Inspired Oxygen 02/05/25 06:00 02/05/25 08:00 02/05/25 08:00 Temperature 99.3 F Pulse Rate 115 H 116 H 122 H Respiratory Rate 22 H 22 H 20 Blood Pressure 148/95 H Pulse Oximetry 100 Oxygen Delivery Oxygen Flow Rate Fraction of Inspired Oxygen 02/05/25 08:00 02/05/25 08:00 02/05/25 08:00 Temperature Pulse Rate 122 H 120 H 120 H Respiratory Rate 20 20 Blood Pressure Pulse Oximetry 100 Oxygen Delivery Mechanical Ventilation Oxygen Flow Rate Fraction of Inspired Oxygen 40 02/05/25 08:00 02/05/25 08:07 02/05/25 08:07 Temperature Pulse Rate 121 H 121 H Respiratory Rate 20 Blood Pressure Pulse Oximetry 100 Oxygen Delivery Mechanical Ventilation Oxygen Flow Rate Fraction of Inspired Oxygen 35 35 02/05/25 08:22 02/05/25 10:00 02/05/25 10:00 Temperature 99.5 F Pulse Rate 118 H 120 H 125 H Respiratory Rate 20 18 Blood Pressure 130/89 Pulse Oximetry 97 Oxygen Delivery Oxygen Flow Rate Fraction of Inspired Oxygen 02/05/25 11:13 02/05/25 12:00 02/05/25 12:00 Temperature 99.4 F Pulse Rate 125 H 128 H 122 H Respiratory Rate 18 18 Blood Pressure 148/92 H Pulse Oximetry 93 94 95 Oxygen Delivery Mechanical Ventilation Mechanical Ventilation Oxygen Flow Rate Fraction of Inspired Oxygen 35 35 02/05/25 12:00 02/05/25 12:00 02/05/25 13:53 Temperature Pulse Rate 122 H 126 H Respiratory Rate Blood Pressure Pulse Oximetry 96 Oxygen Delivery Mechanical Ventilation Oxygen Flow Rate Fraction of Inspired Oxygen 35 35 02/05/25 13:53 02/05/25 14:00 02/05/25 14:00 Temperature 99.4 F Pulse Rate 126 H 122 H 138 H Respiratory Rate 18 21 H Blood Pressure 139/84 Pulse Oximetry 95 Oxygen Delivery Oxygen Flow Rate Fraction of Inspired Oxygen 02/05/25 14:07 02/05/25 14:18 02/05/25 14:23 Temperature Pulse Rate 130 H 133 H Respiratory Rate 40 H 44 H Blood Pressure Pulse Oximetry 88 L Oxygen Delivery Nasal Cannula Oxygen Flow Rate 3 Fraction of Inspired Oxygen 32 02/05/25 14:55 02/05/25 14:56 02/05/25 15:33 Temperature Pulse Rate 133 H 138 H 138 H Respiratory Rate 20 22 H Blood Pressure Pulse Oximetry 92 Oxygen Delivery Mechanical Ventilation Oxygen Flow Rate Fraction of Inspired Oxygen 35 Intake/Output Intake/Output: Intake & Output 02/02/25 02/03/25 02/04/25 02/05/25 23:59 23:59 23:59 23:59 Intake Total 1980.1 2522.3 2940.3 1127.9 Output Total 1200 1250 4475 1500 Balance 780.1 1272.3 -1534.7 -372.1 Meds/Results Medications: Active Medications Generic Name Dose Route Start Last Admin Trade Name Freq PRN Reason Stop Dose Admin Acetaminophen 650 mg 02/03/25 22:36 02/03/25 22:53 Acetaminophen Elixir 325 Mg/10.15 Ml Udc PO 650 mg Q6H PRN Administration Mild Pain (1-3) or Fever Dextrose 12.5 gm 02/01/25 07:23 Dextrose 50% 25 Gm/50 Ml Syringe IV PUSH PRN PRN Hypoglycemia Protocol Docusate Sodium 100 mg 02/01/25 09:40 02/05/25 08:14 Docusate Sodium Liq 100 Mg/10 Ml Udc PO 100 mg Q12HR HAIM Administration Glucagon 1 mg 02/01/25 07:23 Glucagon For Inj 1 Mg Vial IM PRN PRN Hypoglycemia Protocol Glucose 15 gm 02/01/25 07:23 Glucose Oral Gel 15 Gm Of Glucse In 37.5 Gm Tube PO PRN PRN Hypoglycemia Protocol Piperacillin Sod/Tazobactam Sod 4.5 gm in 100 mls @ 200 mls/hr 01/31/25 23:00 02/05/25 12:55 Zosyn 4.5 Gm/Ns 100 Ml IVPB 02/07/25 23:59 Infused Q6HR HAIM Infusion Dextrose 1,000 mls @ 100 mls/hr 02/01/25 07:23 Dextrose 5% 1,000 Ml IVPB PRN PRN Hypoglycemia Protocol Dexmedetomidine HCl 400 mcg in 100 mls @ 4.31 mls/hr 02/05/25 14:30 02/05/25 15:33 Precedex 400 Mcg/100 Ml IV CONT 0.4 mcg/kg/hr .[id number] HAIM 4.31 mls/hr Titration Protocol 0.4 MCG/KG/HR Insulin Aspart 3 - 6 units 02/01/25 12:00 02/05/25 11:55 Insulin Aspart (*Bkc) 100 Units/Ml SUB-Q Not Given Q6HR HAIM Protocol Ipratropium [place] 0.5 mg 02/04/25 14:00 02/05/25 13:53 Ipratropium Br 0.02% Inh Soln 0.5 Mg/2.5 Ml Vial INHALATION 0.5 mg Q6HRT HAIM Administration Levalbuterol HCl 0.63 mg 02/04/25 14:00 02/05/25 13:53 Levalbuterol Neb 1.25 Mg/3 Ml INHALATION 0.63 mg Q6HRT HAIM Administration Metoprolol Tartrate 5 mg 02/04/25 04:26 02/04/25 04:58 Metoprolol Tartrate Inj 5 Mg/5 Ml Vial IV PUSH 5 mg Q6H PRN Administration HR > 130 Metoprolol Tartrate 25 mg 02/04/25 09:00 02/05/25 04:28 Metoprolol Tartrate 25 Mg Tablet PO 25 mg BID HAIM Administration Multi-Ingred Cream/Lotion/Oil/Oint 1 applic 02/01/25 21:00 02/05/25 08:15 Mineral Oil/White Petrolatum Ointment EACH EYE 1 applic Q12HR HAIM Administration Ondansetron HCl 4 mg 01/31/25 16:00 Ondansetron Inj 4 Mg/2 Ml Vial IV PUSH Q4H PRN Nausea Pantoprazole Sodium 40 mg 02/01/25 09:00 02/05/25 08:15 Pantoprazole Sodium Iv 40 Mg Vial IV PUSH 40 mg Q12HR HAIM Administration Polyethylene Glycol 17 gm 02/01/25 09:25 02/05/25 08:16 Polyethylene Glycol 3350 17 Gm Powd.Pack PO 17 gm QAM HAIM Administration Sodium Chloride 10 ml 02/01/25 14:00 02/05/25 14:56 Central Line Flush IV PUSH 10 ml Q8HR HAIM Administration Sodium Chloride 20 ml 02/01/25 06:37 Central Line Flush IV PUSH PRN PRN after blood draws Radiology Results: ITS Impressions Head CT 01/31/25 15:47 Impression: No acute intracranial hemorrhage or suspicious mass effect. Chest/Abdomen/Pelvis CTA 01/31/25 15:49 IMPRESSION: Right middle and lower lobe pneumonia with dense consolidation. Left basilar atelectasis. No pulmonary embolus. No aortic dissection. Oral contrast opacifies the entirety of the colon. Supportive lines in good position. No acute pathology within the remainder of the examination, as detailed above. Chest X-Ray 02/05/25 14:56 IMPRESSION: Endotracheal tube is seen in the right main bronchus. Retraction by 2 to 3 cm is advised. Bilateral basal pneumonia. Labs Labs: Laboratory Results - last 24 hr 02/04/25 02/04/25 02/05/25 11:16 17:56 00:18 WBC RBC Hgb Hct MCV MCH MCHC RDW Plt Count MPV Immature Gran % (Auto) Neut % (Auto) Lymph % (Auto) [place] % (Auto) Eos % (Auto) Baso % (Auto) Lymph # (Auto) [place] # (Auto) Eos # (Auto) Baso # (Auto) Abs Immat Gran (auto) Absolute Neuts (auto) Absolute Nucleated RBC Nucleated RBC % APTT Sodium Potassium Chloride Carbon Dioxide Anion Gap BUN Creatinine Estim Creat Clear Calc Estimated GFR Glucose POC Capillary Glucose 105 111 H Lactic Acid Calcium Phosphorus Magnesium Total Bilirubin AST ALT Alkaline Phosphatase Total Protein Albumin Blood Type O Positive Antibody Screen Negative Crossmatch See Detail 02/05/25 02/05/25 02/05/25 04:44 05:12 05:20 WBC 11.0 H RBC 3.23 L Hgb 9.4 L Hct 29.5 L MCV 91.3 MCH 29.1 MCHC 31.9 L RDW 15.7 H Plt Count 239 MPV 11.4 H Immature Gran % (Auto) 0.6 H Neut % (Auto) 74.5 H Lymph % (Auto) 16.1 L [place] % (Auto) 8.6 H Eos % (Auto) 0.0 Baso % (Auto) 0.2 Lymph # (Auto) 1.78 [place] # (Auto) 1.0 H Eos # (Auto) 0.0 Baso # (Auto) 0.0 Abs Immat Gran (auto) 0.07 H Absolute Neuts (auto) 8.2 H Absolute Nucleated RBC 0.030 H Nucleated RBC % 0.3 H APTT 38.0 H Sodium 143 Potassium 3.7 Chloride 103 Carbon Dioxide 35 H Anion Gap 5 BUN 18 H Creatinine 0.65 L Estim Creat Clear Calc 47 Estimated GFR > 60 Glucose 106 POC Capillary Glucose 107 H Lactic Acid 0.8 Calcium 9.2 Phosphorus 3.9 Magnesium 2.6 H Total Bilirubin 0.9 AST 32 ALT 29 Alkaline Phosphatase 80 Total Protein 7.0 Albumin 3.7 Blood Type Antibody Screen Crossmatch 02/05/25 11:23 WBC RBC Hgb Hct MCV MCH MCHC RDW Plt Count MPV Immature Gran % (Auto) Neut % (Auto) Lymph % (Auto) [place] % (Auto) Eos % (Auto) Baso % (Auto) Lymph # (Auto) [place] # (Auto) Eos # (Auto) Baso # (Auto) Abs Immat Gran (auto) Absolute Neuts (auto) Absolute Nucleated RBC Nucleated RBC % APTT Sodium Potassium Chloride Carbon Dioxide Anion Gap BUN Creatinine Estim Creat Clear Calc Estimated GFR Glucose POC Capillary Glucose 124 H Lactic Acid Calcium Phosphorus Magnesium Total Bilirubin AST ALT Alkaline Phosphatase Total Protein Albumin Blood Type Antibody Screen Crossmatch
[2025-02-05 18:12] LABS: Glucose Point of Care 126 mg/dl (65-105)
[2025-02-05] MEDS: ACETAMINOPHEN ELIXIR 325 MG/10.15 ML UDC 650 MG PO (21:31)
[2025-02-06] VITALS (37 sets, daily range): BP systolic 108–141; BP diastolic 73–103; PULSE 89–133; RESP 15–22; TEMP 37–37.9; O2SAT 93–100
[2025-02-06] MEDS: PIPERACILLIN/TAZ 4.5G/NS 100ML 4.5 GM/100 ML BAG IVPB ×4 (00:50→18:34)
[2025-02-06 01:18] LABS: Glucose Point of Care 125 mg/dl (65-105)
[2025-02-06] MEDS: LEVALBUTEROL NEB 1.25 MG/3 ML 0.63 MG INHALATION ×4 (02:21→20:34)
[2025-02-06] MEDS: IPRATROPIUM BR 0.02% INH SOLN 0.5 MG/2.5 ML VIAL INHALATION ×4 (02:21→20:34)
[2025-02-06 02:22] LABS: IFOB Positive Control Positive; Immunochemical Fecal Occult Bl Negative (N)
[2025-02-06] MEDS: dexmedeTOMIDine 400 MCG/100 ML 400 MCG/100 ML BAG 7.54 MCG IV CONT (04:36)
--- NOTE | 2025-02-06 05:21 | ECG_ITS ---
Test Date: 2025-02-06 05:26:08 Measurements Intervals [place] Rate: 125 P: 0 MT: 0 QRS: -24 QRSD: 85 T: 91 QT: 267 QTc: 385 Interpretive Statements ATRIAL FIBRILLATION WITH RAPID VENTRICULAR RESPONSE BORDERLINE LEFT AXIS DEVIATION [QRS AXIS < -20] VOLTAGE CRITERIA FOR LVH [MEETS CRITERIA IN ONE OF: R(aVL), S(V1), R(V5), R(V5/V6)+S(V1)] NONSPECIFIC T-WAVE ABNORMALITY Compared to ECG 02/04/2025 08:02:33 Sinus tachycardia no longer present T-wave abnormality still present Electronically Signed On 02-06-2025 16:09:30 CDT by Corky Pennington M.D.
[2025-02-06 05:45] LABS: Basophils Percent Auto 0.1 % (0.2-1.2); Hematocrit 28.8 % (37.0-47.0); Hemoglobin 9.3 g/dL (12.0-15.0); Immature Granulocyte Absolute 0.07 K/mm3 (0.00-0.031); Immature Granulocyte Percent A 0.6 % (0-0.5); Lymphocytes Absolute Auto 1.31 K/mm3 (0.9-3.2); Lymphocytes Percent Auto 11.7 % (18.3-44.2); Mean Corpuscular HGB Conc 32.3 g/dl (32-36); Mean Corpuscular Hemoglobin 29.3 pg (26-34); Mean Corpuscular Volume 90.9 fl (80-100); Mean Platelet Volume 11.4 fl (7.4-10.4); Monocytes Absolute Auto 0.9 K/mm3 (0.1-0.6); Monocytes Percent Auto 8.3 % (2.6-8.5); Neutrophils Absolute Auto 8.9 K/mm3 (1.3-6.7); Neutrophils Percent Auto 79.3 % (45.5-73.1); Nucleated Red Blood Cells Perc 0.3 % (0.0-0.2); Platelet Count Result 254 k/mm3 (150-375); Red Blood Count 3.17 M/mm3 (4.2-5.4); Red Cell Distribution Width 15.7 % (11.5-14.5); White Blood Count 11.2 K/mm3 (4.5-10.0)
[2025-02-06] MEDS: METOPROLOL TARTRATE INJ 5 MG/5 ML VIAL IV PUSH (05:47)
[2025-02-06] MEDS: CENTRAL LINE FLUSH 10 ML IV PUSH ×3 (05:51→21:04)
[2025-02-06 05:56] LABS: Lactic Acid Reflex 0.8 mmol/L (0.7-2.0)
[2025-02-06 05:57] LABS: Base Excess ABG 6.3 mEq/l (+/-2.0); Carboxyhemoglobin 0.2 % THb (0-2.0); Fractional Inspired Oxygen 35 %; HCO3 ABG 30.2 mEq/l (22.0-26.0); Methemoglobin ABG 0.3 %THb (0-1.5); Oxygen Saturation ABG 97.5 % (95.0-100.0); Oxyhemoglobin 96.5 % THb (90.0-100.0); PCO2 ABG 40.7 mmHg (35.0-45.0); PO2 ABG 91.2 mmHg (80.0-100.0); PO2 FiO2 Ratio Arterial Blood 2.61 %; Total Hemoglobin 10.2 g/dL (12.0-18.0); pH ABG 7.488 (7.350-7.450)
[2025-02-06] MEDS: METOPROLOL TARTRATE 25 MG TABLET PO ×2 (05:59→16:05)
[2025-02-06 06:02] LABS: Arterial Blood Gas PEEP 5 cmH2O; Arterial Blood Gas Vent Mode CMV; Arterial Blood Gas Ventilator rate 18 /MIN; Device VENTILATOR; Modified Allen's Test Pass; Site Drawn RIGHT RADIAL
[2025-02-06 06:02] LABS: Alanine Aminotransferase 27 U/L (6-35); Albumin Level 3.7 g/dL (3.5-5.1); Alkaline Phosphatase 81 U/L (38-126); Anion Gap 10 mmol/L (4-12); Aspartate Amino Transferase 33 U/L (14-36); Blood Urea Nitrogen 25 mg/dL (7-17); Calcium 9.4 mg/dL (8.4-10.2); Carbon Dioxide 34 mmol/L (22-30); Chloride 101 mmol/L (98-107); Estimated CRCL calculation 44 ml/min; Estimated Glomerular Filt Rate > 60; Glucose 131 mg/dL (65-110); Magnesium 2.7 mg/dL (1.6-2.3); Phosphorus 3.8 mg/dL (2.5-4.5); Potassium 2.8 mmol/L (3.4-5.0); Sodium 145 mmol/L (137-145)
[2025-02-06 06:03] LABS: Arterial Blood Gas Tidal Volume 300 ml
[2025-02-06] MEDS: POTASSIUM CHLORIDE 20 MEQ PACKET (FOR LIQUID) 40 MEQ FEED TUBE ×2 (06:44→11:03)
[2025-02-06] MEDS: POTASSIUM CHLORIDE INJ 40 MEQ in SODIUM CHLORIDE 0.9% IV 500 ML 130 MEQ IVPB (06:48)
[2025-02-06] MEDS: PANTOPRAZOLE SODIUM IV 40 MG VIAL IV PUSH ×2 (08:56→21:04)
--- NOTE | 2025-02-06 10:31 | WPDINTPN ---
Progress Note: A&P Assessment and Plan (1) Acute hypoxic respiratory failure: Code(s): J96.01 - Acute respiratory failure with hypoxia Status: Acute Assessment and Plan: 01/31/2025: Patient presented from [facility] with hypoxia, periods of apnea, and unresponsiveness. She was brought to the ED being bagged, she did not have a gag and was unresponsive in the ED so was intubated upon arrival to the ED. central line was also inserted as she was hypotensive CT scan showed right middle and right lower lobe consolidation. Since then patient has also received decent amount of IV fluids 02/05-accidentally got extubated during turning by the nursing staff. She was intubated -currently on CMV mode of ventilation, peep of 5 and 35 % FiO2 -ABGs and chest x-ray reviewed, ventilator adjusted by decreasing the rate -continue bronchodilators and Mucomyst nebulizer -Lasix IV will be continue -PSV SBT was done but patient kept on going empty ventilation. Precedex rate was decreased and patient is now on ASV. I will try PSV again later today (2) AMS (altered mental status): Qualifiers: Altered mental status type: unspecified Qualified Code(s): R41.82 - Altered mental status, unspecified Code(s): R41.82 - Altered mental status, unspecified Status: Acute Assessment and Plan: Encephalopathy could be related to hypoxia, hypercapnia, pneumonia/infection/hypotension, could be related to medication -head CT negative at the time of presentation -currently intubated -offer send fentanyl and on Precedex (3) Pneumonia: Qualifiers: Pneumonia type: due to unspecified organism Laterality: right Lung location: unspecified part of lung Qualified Code(s): J18.9 - Pneumonia, unspecified organism Code(s): J18.9 - Pneumonia, unspecified organism Status: Acute Assessment and Plan: Chest x-ray and CTA chest show right lower lobe consolidation -according the [facility] records: Repeat CT chest showed interval development of new airspace opacities raising concern for aspiration pneumonia. She was transition to Zosyn from cefepime. MBS performed on 01/26 at [facility] which showed no evidence of aspiration despite coughing especially with swallowing. -continue Zosyn, azithromycin (01/31) -MRSA screen is negative, vancomycin discontinued (02/01) (4) Sepsis: Code(s): A41.9 - Sepsis, unspecified organism Status: Acute Assessment and Plan: Patient presented with altered mental status, hypoxia, apnea, pneumonia. -lactic acid was normal -blood pressures are borderline -patient was adequately fluid-resuscitated -status post albumin for volume expansion -off Levophed, -continue to monitor urine output and renal function -Lasix IV (5) Cerebral palsy: Code(s): G80.9 - Cerebral palsy, unspecified Status: Acute Assessment and Plan: Patient with cerebral palsy, mild intellectual disability, schizophrenia, nonverbal at baseline according the chart -patient on risperidone, will restart prior to extubation as she is currently sedated and intubated (6) Anemia: Code(s): D64.9 - Anemia, unspecified Status: Acute Assessment and Plan: Patient admitted with a hemoglobin of 10.3 on 01/31 -02/01: Hemoglobin dropped to 7.7, a repeat CBC was done which showed a hemoglobin of 7.3 -will check stools for occult blood, -folic acid and vitamin B12 level within normal limits -low iron levels, low TIBC, will give Venofer -LDH is normal, haptoglobin is pending -Protonix IV q.12 hours -continue to monitor (7) Electrolyte imbalance: Code(s): E87.8 - Other disorders of electrolyte and fluid balance, not elsewhere classified Status: Acute Assessment and Plan: Hypernatremia is improving Potassium replacement ordered (8) Sinus tachycardia: Code(s): R00.0 - Tachycardia, unspecified Status: Acute Assessment and Plan: 02/04: Patient developed SVT/sinus tachycardia overnight with rates in the 180-200s. Was given IV metoprolol x1 with improvement which brought her rate start to 130s. -could be multifactorial, related to sepsis, anemia, coronary artery disease -TSH normal -will continue metoprolol -currently sinus tachycardia monitor - mild elevation in troponin level with the levels have trended down -cardiology consult 02/02/2025: Echocardiogram Summary 1. Complete two-dimensional, color flow and Doppler transthoracic echocardiogram is performed. 2. Left ventricular chamber dimension is normal. 3. Left ventricular systolic function is normal, estimated at 60-65%. 4. The left ventricular diastolic function is grade I diastolic dysfunction. 5. E/e' 7 is not elevated. 6. There is mild aortic valve sclerosis. 7. There is trace tricuspid valve regurgitation. 8. Mild pulmonary hypertension, estimated pulmonary arterial systolic pressure is 41 mmHg. (9) Constipation: Code(s): K59.00 - Constipation, unspecified Status: Acute Assessment and Plan: 02/04: KUB showed moderate fecal retention -improved with laxatives as patient is now having bowel movements. Continue Docusate sodium and senna and MiraLax Plan DVT prophylaxis: Lovenox Stress ulcer prophylaxis: Protonix IV q.12 hours Nutrition: Tolerating tube feeds, patient on stool softener and MiraLax Code Status: Full -patient is a guardian/bear of the state ([place]) Critical Care Time Spent: 30 minutes Due to a high probability of clinically significant, life threatening deterioration, the patient required my highest level of preparedness to intervene emergently and I personally spent this critical care time directly and personally managing the patient. This critical care time included obtaining a history; examining the patient; pulse oximetry; ordering and review of studies; arranging urgent treatment with development of a management plan; evaluation of patient's response to treatment; frequent reassessment; and discussions with other providers. It was exclusive of separately billable procedures and treating other patients and teaching time. Please see Assessment and Plan section and the rest of the note for further information on patient assessment and treatment This dictation may have been done utilizing a voice recognition system. Attempts have been made to correct errors. However, there may be uncorrected grammatical, spelling, and recognitions errors present. Subjective Date/time seen: 02/06/25 Overnight events reviewed. Afebrile Patient was accidentally extubated and then reintubated yesterday. Continues to be on mechanical ventilation 35% FiO2 Sinus tachycardia the monitor Continues to be sedated with Precedex Tolerating tube feeds. Other Vitals acceptable Good urine output in response to diuretic Interval history: Reason for consult: Acute respiratory failure, pneumonia, altered mental status, unresponsiveness, anemia Review of Systems Review of Systems: ROS unobtainable: Yes unobtainable due to endotracheal tube, unobtainable due to medical condition and unobtainable due to mental status Exam Narrative: General: Petite female/malnourished, in no acute distress HEENT:? Pupils are pinpoint, sluggish, ETT in place Neck:? Supple Respiratory:? Coarse breath sounds bilaterally, rales on right base, no wheezing, adequate air entry otherwise Cardiac:? S1-S2 normal, regular rate and rhythm Abdomen:? Soft, nontender, nondistended, hypoactive bowel sounds Extremities:? Trace edema, bilateral pedal pulses are palpable Neuro:? Intubated, sedated, eyes are open and she moves all 4 extremities. She has a decent cough but she does not follow any commands. On pressure support ventilation trial she goes into apnea ventilation Skin:? No skin lesions noted Psych:? Unable to assess at this time Objective Data Vital Signs Vital Signs: Vital Signs - 24 hr 02/05/25 11:13 02/05/25 12:00 02/05/25 12:00 Temperature 37.4 C Pulse Rate 125 H 128 H 122 H Respiratory Rate 18 18 Blood Pressure 148/92 H Pulse Oximetry 93 94 95 Oxygen Delivery Mechanical Ventilation Mechanical Ventilation Oxygen Flow Rate Fraction of Inspired Oxygen 35 35 02/05/25 12:00 02/05/25 12:00 02/05/25 13:53 Temperature Pulse Rate 122 H 126 H Respiratory Rate Blood Pressure Pulse Oximetry 96 Oxygen Delivery Mechanical Ventilation Oxygen Flow Rate Fraction of Inspired Oxygen 35 35 02/05/25 13:53 02/05/25 14:00 02/05/25 14:00 Temperature 37.4 C Pulse Rate 126 H 122 H 138 H Respiratory Rate 18 21 H Blood Pressure 139/84 Pulse Oximetry 95 Oxygen Delivery Oxygen Flow Rate Fraction of Inspired Oxygen 02/05/25 14:07 02/05/25 14:18 02/05/25 14:23 Temperature Pulse Rate 130 H 133 H Respiratory Rate 40 H 44 H Blood Pressure Pulse Oximetry 88 L Oxygen Delivery Nasal Cannula Oxygen Flow Rate 3 Fraction of Inspired Oxygen 32 02/05/25 14:55 02/05/25 14:56 02/05/25 15:33 Temperature Pulse Rate 133 H 138 H 138 H Respiratory Rate 20 22 H Blood Pressure Pulse Oximetry 92 Oxygen Delivery Mechanical Ventilation Oxygen Flow Rate Fraction of Inspired Oxygen 35 02/05/25 16:00 02/05/25 16:00 02/05/25 16:00 Temperature 38.0 C H Pulse Rate 110 H 110 H 110 H Respiratory Rate 18 18 Blood Pressure 128/85 Pulse Oximetry 96 96 Oxygen Delivery Mechanical Ventilation Oxygen Flow Rate Fraction of Inspired Oxygen 35 02/05/25 16:00 02/05/25 16:00 02/05/25 17:04 Temperature Pulse Rate 108 H 110 H Respiratory Rate 20 Blood Pressure Pulse Oximetry 99 Oxygen Delivery Mechanical Ventilation Oxygen Flow Rate Fraction of Inspired Oxygen 35 35 02/05/25 17:56 02/05/25 18:00 02/05/25 18:00 Temperature 37.9 C H Pulse Rate 110 H 104 H 104 H Respiratory Rate 18 Blood Pressure 120/75 Pulse Oximetry 98 Oxygen Delivery Oxygen Flow Rate Fraction of Inspired Oxygen 02/05/25 19:00 02/05/25 20:00 02/05/25 20:00 Temperature Pulse Rate 103 H 105 H Respiratory Rate 18 18 Blood Pressure Pulse Oximetry 98 Oxygen Delivery Mechanical Ventilation Oxygen Flow Rate Fraction of Inspired Oxygen 35 35 02/05/25 20:00 02/05/25 20:00 02/05/25 20:00 Temperature 38.1 C H Pulse Rate 105 H 105 H 110 H Respiratory Rate 18 18 Blood Pressure 116/72 Pulse Oximetry 98 Oxygen Delivery Oxygen Flow Rate Fraction of Inspired Oxygen 02/05/25 20:14 02/05/25 20:14 02/05/25 20:20 Temperature Pulse Rate 108 H 108 H 108 H Respiratory Rate 15 19 Blood Pressure Pulse Oximetry 100 Oxygen Delivery Mechanical Ventilation Oxygen Flow Rate Fraction of Inspired Oxygen 35 02/05/25 21:31 02/05/25 22:00 02/05/25 22:00 Temperature 38.5 C H 38.4 C H Pulse Rate 112 H 112 H Respiratory Rate 20 Blood Pressure 130/74 Pulse Oximetry 98 Oxygen Delivery Oxygen Flow Rate Fraction of Inspired Oxygen 02/05/25 22:00 02/05/25 22:31 02/05/25 23:00 Temperature 38.2 C H Pulse Rate 112 H 107 H Respiratory Rate 20 Blood Pressure Pulse Oximetry 99 Oxygen Delivery Mechanical Ventilation Oxygen Flow Rate Fraction of Inspired Oxygen 35 02/06/25 00:00 02/06/25 00:00 02/06/25 00:00 Temperature Pulse Rate 106 H 108 H Respiratory Rate 20 Blood Pressure Pulse Oximetry 98 Oxygen Delivery Mechanical Ventilation Oxygen Flow Rate Fraction of Inspired Oxygen 35 35 02/06/25 00:00 02/06/25 00:00 02/06/25 02:00 Temperature 37.9 C H 37.6 C Pulse Rate 106 H 106 H 104 H Respiratory Rate 18 18 19 Blood Pressure 118/73 121/77 Pulse Oximetry 98 98 Oxygen Delivery Oxygen Flow Rate Fraction of Inspired Oxygen 02/06/25 02:00 02/06/25 02:00 02/06/25 02:22 Temperature Pulse Rate 104 H 104 H 107 H Respiratory Rate 20 Blood Pressure Pulse Oximetry 99 Oxygen Delivery Mechanical Ventilation Oxygen Flow Rate Fraction of Inspired Oxygen 35 02/06/25 02:22 02/06/25 04:00 02/06/25 04:00 Temperature Pulse Rate 107 H 101 H 100 Respiratory Rate 19 19 19 Blood Pressure Pulse Oximetry 99 Oxygen Delivery Mechanical Ventilation Oxygen Flow Rate Fraction of Inspired Oxygen 35 02/06/25 04:00 02/06/25 04:00 02/06/25 04:00 Temperature 37.6 C H Pulse Rate 99 100 Respiratory Rate 19 Blood Pressure 113/74 Pulse Oximetry 99 Oxygen Delivery Oxygen Flow Rate Fraction of Inspired Oxygen 35 02/06/25 04:36 02/06/25 04:36 02/06/25 05:42 Temperature Pulse Rate 99 99 125 H Respiratory Rate 18 18 Blood Pressure Pulse Oximetry 98 Oxygen Delivery Mechanical Ventilation Oxygen Flow Rate Fraction of Inspired Oxygen 35 02/06/25 05:47 02/06/25 05:59 02/06/25 06:00 Temperature Pulse Rate 133 H 110 H 109 H Respiratory Rate Blood Pressure Pulse Oximetry Oxygen Delivery Oxygen Flow Rate Fraction of Inspired Oxygen 02/06/25 06:00 02/06/25 06:00 02/06/25 07:38 Temperature 37.4 C Pulse Rate 109 H 109 H 101 H Respiratory Rate 19 19 19 Blood Pressure 108/89 Pulse Oximetry 100 Oxygen Delivery Oxygen Flow Rate Fraction of Inspired Oxygen 02/06/25 07:58 02/06/25 08:00 02/06/25 08:00 Temperature 37.5 C Pulse Rate 99 102 H 102 H Respiratory Rate 16 21 H 21 H Blood Pressure 141/99 H Pulse Oximetry 100 Oxygen Delivery Oxygen Flow Rate Fraction of Inspired Oxygen 02/06/25 08:00 02/06/25 08:00 02/06/25 08:00 Temperature Pulse Rate 102 H Respiratory Rate Blood Pressure Pulse Oximetry Oxygen Delivery Mechanical Ventilation Oxygen Flow Rate Fraction of Inspired Oxygen 35 35 02/06/25 08:07 02/06/25 08:09 02/06/25 08:54 Temperature Pulse Rate 99 100 94 Respiratory Rate 16 Blood Pressure Pulse Oximetry 100 100 Oxygen Delivery Mechanical Ventilation Mechanical Ventilation Oxygen Flow Rate Fraction of Inspired Oxygen 35 35 02/06/25 08:57 02/06/25 10:28 Temperature Pulse Rate 97 109 H Respiratory Rate 17 Blood Pressure Pulse Oximetry 99 Oxygen Delivery Mechanical Ventilation Oxygen Flow Rate Fraction of Inspired Oxygen 35 Intake/Output Intake/Output: Intake & Output 02/03/25 02/04/25 02/05/25 02/06/25 23:59 23:59 23:59 23:59 Intake Total 2522.3 2940.3 1776.0 1133.9 Output Total 1250 4475 4800 550 Balance 1272.3 -1534.7 -3024.0 583.9 Meds/Results Medications: Active Medications Generic Name Dose Route Start Last Admin Trade Name Freq PRN Reason Stop Dose Admin Acetaminophen 650 mg 02/03/25 22:36 02/05/25 21:31 Acetaminophen Elixir 325 Mg/10.15 Ml Udc PO 650 mg Q6H PRN Administration Mild Pain (1-3) or Fever Dextrose 12.5 gm 02/01/25 07:23 Dextrose 50% 25 Gm/50 Ml Syringe IV PUSH PRN PRN Hypoglycemia Protocol Docusate Sodium 100 mg 02/01/25 09:40 02/06/25 08:46 Docusate Sodium Liq 100 Mg/10 Ml Udc PO Not Given Q12HR HAIM Furosemide 40 mg 02/06/25 12:00 Furosemide Inj 40 Mg/4 Ml Vial IV PUSH 02/06/25 12:01 ONCE ONE Glucagon 1 mg 02/01/25 07:23 Glucagon For Inj 1 Mg Vial IM PRN PRN Hypoglycemia Protocol Glucose 15 gm 02/01/25 07:23 Glucose Oral Gel 15 Gm Of Glucse In 37.5 Gm Tube PO PRN PRN Hypoglycemia Protocol Piperacillin Sod/Tazobactam Sod 4.5 gm in 100 mls @ 200 mls/hr 01/31/25 23:00 02/06/25 06:07 Zosyn 4.5 Gm/Ns 100 Ml IVPB 02/07/25 23:59 Infused Q6HR HAIM Infusion Dextrose 1,000 mls @ 100 mls/hr 02/01/25 07:23 Dextrose 5% 1,000 Ml IVPB PRN PRN Hypoglycemia Protocol Dexmedetomidine HCl 400 mcg in 100 mls @ 5.388 mls/hr 02/05/25 14:30 02/06/25 08:57 Precedex 400 Mcg/100 Ml IV CONT 0.5 mcg/kg/hr .[id number] HAIM 5.39 mls/hr Titration Protocol 0.5 MCG/KG/HR Insulin Aspart 3 - 6 units 02/01/25 12:00 02/06/25 06:48 Insulin Aspart (*Bkc) 100 Units/Ml SUB-Q Not Given Q6HR [facility] Protocol Ipratropium [place] 0.5 mg 02/04/25 14:00 02/06/25 07:58 Ipratropium Br 0.02% Inh Soln 0.5 Mg/2.5 Ml Vial INHALATION 0.5 mg Q6HRT HAIM Administration Levalbuterol HCl 0.63 mg 02/04/25 14:00 02/06/25 07:58 Levalbuterol Neb 1.25 Mg/3 Ml INHALATION 0.63 mg Q6HRT HAIM Administration Metoprolol Tartrate 5 mg 02/04/25 04:26 02/06/25 05:47 Metoprolol Tartrate Inj 5 Mg/5 Ml Vial IV PUSH 5 mg Q6H PRN Administration HR > 130 Metoprolol Tartrate 25 mg 02/04/25 09:00 02/06/25 05:59 Metoprolol Tartrate 25 Mg Tablet PO 25 mg BID HAIM Administration Multi-Ingred Cream/Lotion/Oil/Oint 1 applic 02/01/25 21:00 02/06/25 08:56 Mineral Oil/White Petrolatum Ointment EACH EYE Not Given Q12HR [facility] Ondansetron HCl 4 mg 01/31/25 16:00 Ondansetron Inj 4 Mg/2 Ml Vial IV PUSH Q4H PRN Nausea Pantoprazole Sodium 40 mg 02/01/25 09:00 02/06/25 08:56 Pantoprazole Sodium Iv 40 Mg Vial IV PUSH 40 mg Q12HR HAIM Administration Polyethylene Glycol 17 gm 02/01/25 09:25 02/06/25 08:47 Polyethylene Glycol 3350 17 Gm Powd.Pack PO Not Given QAM [facility] Potassium Chloride 40 meq 02/06/25 11:00 Potassium Chloride 20 Meq Packet (For Liquid) FEED TUBE 02/06/25 11:01 ONCE ONE Sodium Chloride 10 ml 02/01/25 14:00 02/06/25 05:51 Central Line Flush IV PUSH 10 ml Q8HR HAIM Administration Sodium Chloride 20 ml 02/01/25 06:37 Central Line Flush IV PUSH PRN PRN after blood draws Radiology Results: ITS Impressions Head CT 01/31/25 15:47 Impression: No acute intracranial hemorrhage or suspicious mass effect. Chest/Abdomen/Pelvis CTA 01/31/25 15:49 IMPRESSION: Right middle and lower lobe pneumonia with dense consolidation. Left basilar atelectasis. No pulmonary embolus. No aortic dissection. Oral contrast opacifies the entirety of the colon. Supportive lines in good position. No acute pathology within the remainder of the examination, as detailed above. Chest X-Ray 02/06/25 06:20 IMPRESSION: 1. Airspace opacities in the lower lung zones with slight improvement on the right, consistent with pneumonia and atelectasis. Labs Labs: Laboratory Results - last 24 hr 02/05/25 02/05/25 02/06/25 11:23 18:09 01:03 WBC RBC Hgb Hct MCV MCH MCHC RDW Plt Count MPV Immature Gran % (Auto) Neut % (Auto) Lymph % (Auto) [place] % (Auto) Eos % (Auto) Baso % (Auto) Lymph # (Auto) [place] # (Auto) Eos # (Auto) Baso # (Auto) Abs Immat Gran (auto) Absolute Neuts (auto) Absolute Nucleated RBC Nucleated RBC % APTT Puncture Site ABG pH ABG pCO2 ABG pO2 ABG PO2/FiO2 Ratio ABG HCO3 ABG O2 Saturation ABG O2 Content ABG Base Excess A-a Gradient Oxyhemoglobin Carboxyhemoglobin Methemoglobin Reduced Hemoglobin Total Hemoglobin O2 Delivery Device O2 Liters/Min Minute Volume Vent Rate Vent Mode FiO2 Tidal Volume PEEP Peak Inspir Pressure Pressure Support Sodium Potassium Chloride Carbon Dioxide Anion Gap BUN Creatinine Estim Creat Clear Calc Estimated GFR Glucose POC Capillary Glucose 124 H 126 H Lactic Acid Calcium Phosphorus Magnesium Total Bilirubin AST ALT Alkaline Phosphatase Total Protein Albumin Stl Occult Blood (IFOB) Negative 02/06/25 02/06/25 02/06/25 01:15 05:33 05:45 WBC 11.2 H RBC 3.17 L Hgb 9.3 L Hct 28.8 L MCV 90.9 MCH 29.3 MCHC 32.3 RDW 15.7 H Plt Count 254 MPV 11.4 H Immature Gran % (Auto) 0.6 H Neut % (Auto) 79.3 H Lymph % (Auto) 11.7 L [place] % (Auto) 8.3 Eos % (Auto) 0.0 Baso % (Auto) 0.1 L Lymph # (Auto) 1.31 [place] # (Auto) 0.9 H Eos # (Auto) 0.0 Baso # (Auto) 0.0 Abs Immat Gran (auto) 0.07 H Absolute Neuts (auto) 8.9 H Absolute Nucleated RBC 0.030 H Nucleated RBC % 0.3 H APTT 37.0 H Puncture Site Right radial ABG pH 7.488 H ABG pCO2 40.7 ABG pO2 91.2 ABG PO2/FiO2 Ratio 2.61 ABG HCO3 30.2 H ABG O2 Saturation 97.5 ABG O2 Content 14.0 L ABG Base Excess 6.3 A-a Gradient 111.0 Oxyhemoglobin 96.5 Carboxyhemoglobin 0.2 Methemoglobin 0.3 Reduced Hemoglobin 3.0 Total Hemoglobin 10.2 L O2 Delivery Device Ventilator O2 Liters/Min Not Reportable Minute Volume Not Reportable Vent Rate 18 Vent Mode Cmv FiO2 35 Tidal Volume 300 PEEP 5 Peak Inspir Pressure Not Reportable Pressure Support Not Reportable Sodium 145 Potassium 2.8 L* Chloride 101 Carbon Dioxide 34 H Anion Gap 10 BUN 25 H Creatinine 0.63 L Estim Creat Clear Calc 44 Estimated GFR > 60 Glucose 131 H POC Capillary Glucose 125 H Lactic Acid 0.8 Calcium 9.4 Phosphorus 3.8 Magnesium 2.7 H Total Bilirubin 1.0 AST 33 ALT 27 Alkaline Phosphatase 81 Total Protein 8.0 Albumin 3.7 Stl Occult Blood (IFOB) Quality VTE Prophylaxis VTE prophylaxis: mechanical ordered
--- NOTE | 2025-02-06 11:06 | PCNFU ---
Nutrition Follow-Up Complete: Inadequate Oral Intake as related to mechanical ventilation as evidenced by NPO. Goal: Meet estimated nutritional needs. Patient is meeting goal. We will continue current goal. Pt current nutrition is Vital AF 1.2 at 50 ml/hr. Last recorded weight is 38.9 kg, stable Bowel Motility: +BM reported 02/06 Labs Reviewed: Mg 2.7, BUN 25, Cr 0.63, Glu 131, Hct 28.8, Hgb 9.3 Meds Noted: Precedex, Colace, Miralax Skin: WNL Additional Notes: Patient remains on mechanical vent. Tube feedings are being tolerated of Vital AF 1.2 at 50 ml/hr with Flush of 80 ml q 4 hours. Total Nutrition: 1320 kcal/82 gm protein/892 ml water. Meeting 97% kcal needs at 35 kcal/kg and 100% kcal needs at 1.8-2.0 gm/kg. Agree with diet orders. Will monitor weight, labs, skin, diet orders, meds every Wednesday and Wednesday.
[2025-02-06 11:18] LABS: Glucose Point of Care 119 mg/dl (65-105)
--- NOTE | 2025-02-06 12:38 | PM.PNCARD ---
Progress Note: A&P Assessment and Plan (1) Sinus tachycardia: Code(s): R00.0 - Tachycardia, unspecified Status: Acute Plan 1. Sinus tachycardia, SVT 2. Acute hypoxic respiratory failure requiring mechanical ventilation 3. Altered mental status 4. Pneumonia 5. Anemia 6. Cerebral palsy, reportedly nonverbal due to CP 7. Hypertension 8. Hyperlipidemia 9. Schizophrenia PLAN: -Had about 1 hr of atrial fibrillation with rapid ventricular response this morning. Converted back to sinus rhythm and remains in sinus tach now. K+ was 2.8 and is being repleted. Echocardiogram this admission shows LVEF 60-65%, no significant valvular disease. Continue Metoprolol 25mg BID. Tachycardia should improve as her acute illnesses improve. In the situation of brief episode of AF and recent anemia with Hgb 7.1, I don't think anticoagulation is indicated in this situation unless she has more episodes of AF. Cardiology will follow along on an as needed basis. Please call with questions. Subjective Date/time seen: 02/06/25 12:38 Interval history: Cardiology follow up for tachycardia Pt. had episode of atrial fibrillation this morning around 0500 that terminated just after 0600. Now in sinus tachycardia. Remains intubated. Review of Systems Review of Systems: ROS unobtainable: Yes unobtainable due to endotracheal tube and unobtainable due to medical condition Exam Const: Other: Critically ill female, intubated/sedated HENMT: Other: OETT in place Resp: Other: On mechanical ventilatoin Cardio: Rate: tachycardic Rhythm: regular rhythm Heart sounds: no murmurs Skin: Other: no edema Neuro: Other: Sedated Objective Data Vital Signs Vital Signs: Vital Signs - 24 hr 02/05/25 13:53 02/05/25 13:53 02/05/25 14:00 Temperature 37.4 C Pulse Rate 126 H 126 H 122 H Respiratory Rate 18 21 H Blood Pressure 139/84 Pulse Oximetry 96 95 Oxygen Delivery Mechanical Ventilation Oxygen Flow Rate Fraction of Inspired Oxygen 35 02/05/25 14:00 02/05/25 14:07 02/05/25 14:18 Temperature Pulse Rate 138 H 130 H Respiratory Rate 40 H Blood Pressure Pulse Oximetry 88 L Oxygen Delivery Nasal Cannula Oxygen Flow Rate 3 Fraction of Inspired Oxygen 32 02/05/25 14:23 02/05/25 14:55 02/05/25 14:56 Temperature Pulse Rate 133 H 133 H 138 H Respiratory Rate 44 H 20 Blood Pressure Pulse Oximetry 92 Oxygen Delivery Mechanical Ventilation Oxygen Flow Rate Fraction of Inspired Oxygen 35 02/05/25 15:33 02/05/25 16:00 02/05/25 16:00 Temperature 38.0 C H Pulse Rate 138 H 110 H 110 H Respiratory Rate 22 H 18 18 Blood Pressure 128/85 Pulse Oximetry 96 96 Oxygen Delivery Mechanical Ventilation Oxygen Flow Rate Fraction of Inspired Oxygen 35 02/05/25 16:00 02/05/25 16:00 02/05/25 16:00 Temperature Pulse Rate 110 H 108 H Respiratory Rate 20 Blood Pressure Pulse Oximetry Oxygen Delivery Oxygen Flow Rate Fraction of Inspired Oxygen 35 02/05/25 17:04 02/05/25 17:56 02/05/25 18:00 Temperature Pulse Rate 110 H 110 H 104 H Respiratory Rate Blood Pressure Pulse Oximetry 99 Oxygen Delivery Mechanical Ventilation Oxygen Flow Rate Fraction of Inspired Oxygen 35 02/05/25 18:00 02/05/25 19:00 02/05/25 20:00 Temperature 37.9 C H Pulse Rate 104 H 103 H 105 H Respiratory Rate 18 18 18 Blood Pressure 120/75 Pulse Oximetry 98 98 Oxygen Delivery Mechanical Ventilation Oxygen Flow Rate Fraction of Inspired Oxygen 35 02/05/25 20:00 02/05/25 20:00 02/05/25 20:00 Temperature 38.1 C H Pulse Rate 105 H 105 H Respiratory Rate 18 18 Blood Pressure 116/72 Pulse Oximetry 98 Oxygen Delivery Oxygen Flow Rate Fraction of Inspired Oxygen 35 02/05/25 20:00 02/05/25 20:14 02/05/25 20:14 Temperature Pulse Rate 110 H 108 H 108 H Respiratory Rate 15 Blood Pressure Pulse Oximetry 100 Oxygen Delivery Mechanical Ventilation Oxygen Flow Rate Fraction of Inspired Oxygen 35 02/05/25 20:20 02/05/25 21:31 02/05/25 22:00 Temperature 38.5 C H Pulse Rate 108 H 112 H Respiratory Rate 19 Blood Pressure Pulse Oximetry Oxygen Delivery Oxygen Flow Rate Fraction of Inspired Oxygen 02/05/25 22:00 02/05/25 22:00 02/05/25 22:31 Temperature 38.4 C H 38.2 C H Pulse Rate 112 H 112 H Respiratory Rate 20 20 Blood Pressure 130/74 Pulse Oximetry 98 Oxygen Delivery Oxygen Flow Rate Fraction of Inspired Oxygen 02/05/25 23:00 02/06/25 00:00 02/06/25 00:00 Temperature Pulse Rate 107 H 106 H 108 H Respiratory Rate 20 Blood Pressure Pulse Oximetry 99 98 Oxygen Delivery Mechanical Ventilation Mechanical Ventilation Oxygen Flow Rate Fraction of Inspired Oxygen 35 35 02/06/25 00:00 02/06/25 00:00 02/06/25 00:00 Temperature 37.9 C H Pulse Rate 106 H 106 H Respiratory Rate 18 18 Blood Pressure 118/73 Pulse Oximetry 98 Oxygen Delivery Oxygen Flow Rate Fraction of Inspired Oxygen 35 02/06/25 02:00 02/06/25 02:00 02/06/25 02:00 Temperature 37.6 C Pulse Rate 104 H 104 H 104 H Respiratory Rate 19 20 Blood Pressure 121/77 Pulse Oximetry 98 Oxygen Delivery Oxygen Flow Rate Fraction of Inspired Oxygen 02/06/25 02:22 02/06/25 02:22 02/06/25 04:00 Temperature Pulse Rate 107 H 107 H 101 H Respiratory Rate 19 19 Blood Pressure Pulse Oximetry 99 Oxygen Delivery Mechanical Ventilation Oxygen Flow Rate Fraction of Inspired Oxygen 35 02/06/25 04:00 02/06/25 04:00 02/06/25 04:00 Temperature Pulse Rate 100 99 Respiratory Rate 19 Blood Pressure Pulse Oximetry 99 Oxygen Delivery Mechanical Ventilation Oxygen Flow Rate Fraction of Inspired Oxygen 35 35 02/06/25 04:00 02/06/25 04:36 02/06/25 04:36 Temperature 37.6 C H Pulse Rate 100 99 99 Respiratory Rate 19 18 18 Blood Pressure 113/74 Pulse Oximetry 99 Oxygen Delivery Oxygen Flow Rate Fraction of Inspired Oxygen 02/06/25 05:42 02/06/25 05:47 02/06/25 05:59 Temperature Pulse Rate 125 H 133 H 110 H Respiratory Rate Blood Pressure Pulse Oximetry 98 Oxygen Delivery Mechanical Ventilation Oxygen Flow Rate Fraction of Inspired Oxygen 35 02/06/25 06:00 02/06/25 06:00 02/06/25 06:00 Temperature 37.4 C Pulse Rate 109 H 109 H 109 H Respiratory Rate 19 19 Blood Pressure 108/89 Pulse Oximetry 100 Oxygen Delivery Oxygen Flow Rate Fraction of Inspired Oxygen 02/06/25 07:38 02/06/25 07:58 02/06/25 08:00 Temperature 37.5 C Pulse Rate 101 H 99 102 H Respiratory Rate 19 16 21 H Blood Pressure 141/99 H Pulse Oximetry 100 Oxygen Delivery Oxygen Flow Rate Fraction of Inspired Oxygen 02/06/25 08:00 02/06/25 08:00 02/06/25 08:00 Temperature Pulse Rate 102 H 102 H Respiratory Rate 21 H Blood Pressure Pulse Oximetry Oxygen Delivery Mechanical Ventilation Oxygen Flow Rate Fraction of Inspired Oxygen 35 02/06/25 08:00 02/06/25 08:07 02/06/25 08:09 Temperature Pulse Rate 99 100 Respiratory Rate 16 Blood Pressure Pulse Oximetry 100 Oxygen Delivery Mechanical Ventilation Oxygen Flow Rate Fraction of Inspired Oxygen 35 35 02/06/25 08:54 02/06/25 08:57 02/06/25 10:00 Temperature Pulse Rate 94 97 105 H Respiratory Rate 17 Blood Pressure Pulse Oximetry 100 Oxygen Delivery Mechanical Ventilation Oxygen Flow Rate Fraction of Inspired Oxygen 35 02/06/25 10:00 02/06/25 10:28 Temperature 37.4 C Pulse Rate 105 H 109 H Respiratory Rate 20 Blood Pressure 136/94 H Pulse Oximetry 100 99 Oxygen Delivery Mechanical Ventilation Oxygen Flow Rate Fraction of Inspired Oxygen 35 Intake/Output Intake/Output: Intake & Output 02/03/25 02/04/25 02/05/25 02/06/25 23:59 23:59 23:59 23:59 Intake Total 2522.3 2940.3 1776.0 1133.9 Output Total 1250 4475 4800 550 Balance 1272.3 -1534.7 -3024.0 583.9 Meds/Results Medications: Active Medications Generic Name Dose Route Start Last Admin Trade Name Freq PRN Reason Stop Dose Admin Acetaminophen 650 mg 02/03/25 22:36 02/05/25 21:31 Acetaminophen Elixir 325 Mg/10.15 Ml Udc PO 650 mg Q6H PRN Administration Mild Pain (1-3) or Fever Dextrose 12.5 gm 02/01/25 07:23 Dextrose 50% 25 Gm/50 Ml Syringe IV PUSH PRN PRN Hypoglycemia Protocol Docusate Sodium 100 mg 02/01/25 09:40 02/06/25 08:46 Docusate Sodium Liq 100 Mg/10 Ml Udc PO Not Given Q12HR [facility] Enoxaparin Sodium 40 mg 02/07/25 09:00 Enoxaparin 40 Mg/0.4 Ml Syringe SUB-Q DAILY [facility] Glucagon 1 mg 02/01/25 07:23 Glucagon For Inj 1 Mg Vial IM PRN PRN Hypoglycemia Protocol Glucose 15 gm 02/01/25 07:23 Glucose Oral Gel 15 Gm Of Glucse In 37.5 Gm Tube PO PRN PRN Hypoglycemia Protocol Piperacillin Sod/Tazobactam Sod 4.5 gm in 100 mls @ 200 mls/hr 01/31/25 23:00 02/06/25 06:07 Zosyn 4.5 Gm/Ns 100 Ml IVPB 02/07/25 23:59 Infused Q6HR [facility] Infusion Dextrose 1,000 mls @ 100 mls/hr 02/01/25 07:23 Dextrose 5% 1,000 Ml IVPB PRN PRN Hypoglycemia Protocol Dexmedetomidine HCl 400 mcg in 100 mls @ 5.388 mls/hr 02/06/25 12:20 Precedex 400 Mcg/100 Ml IV CONT .[id number] [facility] Protocol 0.5 MCG/KG/HR Propofol 100 mls @ 2.334 mls/hr 02/06/25 12:35 Diprivan IV CONT .[id number] [facility] Protocol 10 MCG/KG/MIN Insulin Aspart 3 - 6 units 02/01/25 12:00 02/06/25 11:37 Insulin Aspart (*Bkc) 100 Units/Ml SUB-Q Not Given Q6HR [facility] Protocol Ipratropium Honor 0.5 mg 02/04/25 14:00 02/06/25 07:58 Ipratropium Br 0.02% Inh Soln 0.5 Mg/2.5 Ml Vial INHALATION 0.5 mg Q6HRT [facility] Administration Levalbuterol HCl 0.63 mg 02/04/25 14:00 02/06/25 07:58 Levalbuterol Neb 1.25 Mg/3 Ml INHALATION 0.63 mg Q6HRT [facility] Administration Metoprolol Tartrate 5 mg 02/04/25 04:26 02/06/25 05:47 Metoprolol Tartrate Inj 5 Mg/5 Ml Vial IV PUSH 5 mg Q6H PRN Administration HR > 130 Metoprolol Tartrate 25 mg 02/04/25 09:00 02/06/25 05:59 Metoprolol Tartrate 25 Mg Tablet PO 25 mg BID [facility]IM Administration Multi-Ingred Cream/Lotion/Oil/Oint 1 applic 02/01/25 21:00 02/06/25 08:56 Mineral Oil/White Petrolatum Ointment EACH EYE Not Given Q12HR [facility] Ondansetron HCl 4 mg 01/31/25 16:00 Ondansetron Inj 4 Mg/2 Ml Vial IV PUSH Q4H PRN Nausea Pantoprazole Sodium 40 mg 02/01/25 09:00 02/06/25 08:56 Pantoprazole Sodium Iv 40 Mg Vial IV PUSH 40 mg Q12HR [facility] Administration Polyethylene Glycol 17 gm 02/01/25 09:25 02/06/25 08:47 Polyethylene Glycol 3350 17 Gm Powd.Pack PO Not Given QAM [facility] Sodium Chloride 10 ml 02/01/25 14:00 02/06/25 05:51 Central Line Flush IV PUSH 10 ml Q8HR [facility] Administration Sodium Chloride 20 ml 02/01/25 06:37 Central Line Flush IV PUSH PRN PRN after blood draws Radiology Results: ITS Impressions Head CT 01/31/25 15:47 Impression: No acute intracranial hemorrhage or suspicious mass effect. Chest/Abdomen/Pelvis CTA 01/31/25 15:49 IMPRESSION: Right middle and lower lobe pneumonia with dense consolidation. Left basilar atelectasis. No pulmonary embolus. No aortic dissection. Oral contrast opacifies the entirety of the colon. Supportive lines in good position. No acute pathology within the remainder of the examination, as detailed above. Chest X-Ray 02/06/25 06:20 IMPRESSION: 1. Airspace opacities in the lower lung zones with slight improvement on the right, consistent with pneumonia and atelectasis. Labs Labs: Laboratory Results - last 24 hr 02/05/25 02/06/25 02/06/25 18:09 01:03 01:15 WBC RBC Hgb Hct MCV MCH MCHC RDW Plt Count MPV Immature Gran % (Auto) Neut % (Auto) Lymph % (Auto) [place] % (Auto) Eos % (Auto) Baso % (Auto) Lymph # (Auto) [place] # (Auto) Eos # (Auto) Baso # (Auto) Abs Immat Gran (auto) Absolute Neuts (auto) Absolute Nucleated RBC Nucleated RBC % APTT Puncture Site ABG pH ABG pCO2 ABG pO2 ABG PO2/FiO2 Ratio ABG HCO3 ABG O2 Saturation ABG O2 Content ABG Base Excess A-a Gradient Oxyhemoglobin Carboxyhemoglobin Methemoglobin Reduced Hemoglobin Total Hemoglobin O2 Delivery Device O2 Liters/Min Minute Volume Vent Rate Vent Mode FiO2 Tidal Volume PEEP Peak Inspir Pressure Pressure Support Sodium Potassium Chloride Carbon Dioxide Anion Gap BUN Creatinine Estim Creat Clear Calc Estimated GFR Glucose POC Capillary Glucose 126 H 125 H Lactic Acid Calcium Phosphorus Magnesium Total Bilirubin AST ALT Alkaline Phosphatase Total Protein Albumin Stl Occult Blood (IFOB) Negative 02/06/25 02/06/25 02/06/25 05:33 05:45 11:08 WBC 11.2 H RBC 3.17 L Hgb 9.3 L Hct 28.8 L MCV 90.9 MCH 29.3 MCHC 32.3 RDW 15.7 H Plt Count 254 MPV 11.4 H Immature Gran % (Auto) 0.6 H Neut % (Auto) 79.3 H Lymph % (Auto) 11.7 L [place] % (Auto) 8.3 Eos % (Auto) 0.0 Baso % (Auto) 0.1 L Lymph # (Auto) 1.31 [place] # (Auto) 0.9 H Eos # (Auto) 0.0 Baso # (Auto) 0.0 Abs Immat Gran (auto) 0.07 H Absolute Neuts (auto) 8.9 H Absolute Nucleated RBC 0.030 H Nucleated RBC % 0.3 H APTT 37.0 H Puncture Site Right radial ABG pH 7.488 H ABG pCO2 40.7 ABG pO2 91.2 ABG PO2/FiO2 Ratio 2.61 ABG HCO3 30.2 H ABG O2 Saturation 97.5 ABG O2 Content 14.0 L ABG Base Excess 6.3 A-a Gradient 111.0 Oxyhemoglobin 96.5 Carboxyhemoglobin 0.2 Methemoglobin 0.3 Reduced Hemoglobin 3.0 Total Hemoglobin 10.2 L O2 Delivery Device Ventilator O2 Liters/Min Not Reportable Minute Volume Not Reportable Vent Rate 18 Vent Mode Cmv FiO2 35 Tidal Volume 300 PEEP 5 Peak Inspir Pressure Not Reportable Pressure Support Not Reportable Sodium 145 Potassium 2.8 L* Chloride 101 Carbon Dioxide 34 H Anion Gap 10 BUN 25 H Creatinine 0.63 L Estim Creat Clear Calc 44 Estimated GFR > 60 Glucose 131 H POC Capillary Glucose 119 H Lactic Acid 0.8 Calcium 9.4 Phosphorus 3.8 Magnesium 2.7 H Total Bilirubin 1.0 AST 33 ALT 27 Alkaline Phosphatase 81 Total Protein 8.0 Albumin 3.7 Stl Occult Blood (IFOB) Quality VTE Prophylaxis VTE prophylaxis: mechanical ordered
[2025-02-06] MEDS: PROPOFOL IV EMULSION 100 ML 2.33 MG IV CONT (12:40)
[2025-02-06] MEDS: dexmedeTOMIDine 400 MCG/100 ML 400 MCG/100 ML BAG 5.39 MCG IV CONT (12:42)
[2025-02-06 17:34] LABS: Glucose Point of Care 120 mg/dl (65-105)
[2025-02-06 18:47] LABS: Anion Gap 7 mmol/L (4-12); Blood Urea Nitrogen 25 mg/dL (7-17); Calcium 9.4 mg/dL (8.4-10.2); Carbon Dioxide 31 mmol/L (22-30); Chloride 109 mmol/L (98-107); Estimated CRCL calculation 51 ml/min; Estimated Glomerular Filt Rate > 60; Glucose 113 mg/dL (65-110); Potassium 4.1 mmol/L (3.4-5.0); Sodium 147 mmol/L (137-145)
[2025-02-06] MEDS: MINERAL OIL/WHITE PETROLATUM OINTMENT 1 APPLIC EACH EYE (21:04)
[2025-02-07] VITALS (35 sets, daily range): BP systolic 102–138; BP diastolic 64–100; PULSE 83–118; RESP 15–39; TEMP 36.8–37.7; O2SAT 95–100
[2025-02-07] MEDS: PIPERACILLIN/TAZ 4.5G/NS 100ML 4.5 GM/100 ML BAG IVPB ×4 (00:36→17:21)
[2025-02-07 00:40] LABS: Glucose Point of Care 105 mg/dl (65-105)
[2025-02-07] MEDS: LEVALBUTEROL NEB 1.25 MG/3 ML 0.63 MG INHALATION ×4 (01:51→19:47)
[2025-02-07] MEDS: IPRATROPIUM BR 0.02% INH SOLN 0.5 MG/2.5 ML VIAL INHALATION ×4 (01:52→19:47)
[2025-02-07] MEDS: PROPOFOL IV EMULSION 100 ML 8.17 MG IV CONT (04:18)
[2025-02-07 05:34] LABS: Basophils Percent Auto 0.1 % (0.2-1.2); Hematocrit 27.6 % (37.0-47.0); Hemoglobin 8.7 g/dL (12.0-15.0); Immature Granulocyte Absolute 0.09 K/mm3 (0.00-0.031); Immature Granulocyte Percent A 0.9 % (0-0.5); Lymphocytes Absolute Auto 1.77 K/mm3 (0.9-3.2); Lymphocytes Percent Auto 17.1 % (18.3-44.2); Mean Corpuscular HGB Conc 31.5 g/dl (32-36); Mean Corpuscular Hemoglobin 29.9 pg (26-34); Mean Corpuscular Volume 94.8 fl (80-100); Mean Platelet Volume 10.8 fl (7.4-10.4); Monocytes Absolute Auto 0.8 K/mm3 (0.1-0.6); Monocytes Percent Auto 7.9 % (2.6-8.5); Neutrophils Absolute Auto 7.7 K/mm3 (1.3-6.7); Nucleated Red Blood Cells Perc 0.2 % (0.0-0.2); Platelet Count Result 224 k/mm3 (150-375); Red Blood Count 2.91 M/mm3 (4.2-5.4); Red Cell Distribution Width 16.1 % (11.5-14.5); White Blood Count 10.4 K/mm3 (4.5-10.0)
[2025-02-07 05:47] LABS: Partial Thromboplastin Time 34.5 Seconds (22.3-36.8)
[2025-02-07 05:54] LABS: Alanine Aminotransferase 30 U/L (6-35); Albumin Level 3.4 g/dL (3.5-5.1); Alkaline Phosphatase 85 U/L (38-126); Anion Gap 7 mmol/L (4-12); Aspartate Amino Transferase 45 U/L (14-36); Bilirubin,Total 0.5 mg/dL (0.2-1.3); Blood Urea Nitrogen 25 mg/dL (7-17); Calcium 9.2 mg/dL (8.4-10.2); Carbon Dioxide 31 mmol/L (22-30); Chloride 108 mmol/L (98-107); Estimated CRCL calculation 45 ml/min; Estimated Glomerular Filt Rate > 60; Glucose 121 mg/dL (65-110); Magnesium 2.6 mg/dL (1.6-2.3); Phosphorus 3.4 mg/dL (2.5-4.5); Potassium 3.2 mmol/L (3.4-5.0); Sodium 146 mmol/L (137-145)
[2025-02-07 05:59] LABS: Base Excess ABG 3.7 mEq/l (+/-2.0); Carboxyhemoglobin 0.1 % THb (0-2.0); Fractional Inspired Oxygen 35 %; HCO3 ABG 28.4 mEq/l (22.0-26.0); Methemoglobin ABG 0.3 %THb (0-1.5); Modified Allen's Test Pass; Oxygen Content ABG 12.8 %vol (16.0-22.0); Oxygen Saturation ABG 96.6 % (95.0-100.0); Oxyhemoglobin 95.9 % THb (90.0-100.0); PCO2 ABG 43.3 mmHg (35.0-45.0); PO2 ABG 84.2 mmHg (80.0-100.0); PO2 FiO2 Ratio Arterial Blood 2.41 %; Reduced Hemoglobin 3.7 %THb (0-5.0); Site Drawn RIGHT RADIAL; Total Hemoglobin 9.4 g/dL (12.0-18.0); pH ABG 7.434 (7.350-7.450)
[2025-02-07 06:00] LABS: Arterial Blood Gas PEEP 5 cmH2O; Arterial Blood Gas Tidal Volume 310 ml; Arterial Blood Gas Vent Mode CMV; Arterial Blood Gas Ventilator rate 15 /MIN; Device VENTILATOR
[2025-02-07] MEDS: CENTRAL LINE FLUSH 10 ML IV PUSH ×3 (06:03→20:06)
[2025-02-07] MEDS: POTASSIUM CHLORIDE 20 MEQ PACKET (FOR LIQUID) 40 MEQ FEED TUBE ×2 (08:04→12:29)
[2025-02-07] MEDS: MINERAL OIL/WHITE PETROLATUM OINTMENT 1 APPLIC EACH EYE ×2 (08:04→20:06)
[2025-02-07] MEDS: dexmedeTOMIDine 400 MCG/100 ML 400 MCG/100 ML BAG 5.39 MCG IV CONT (08:07)
[2025-02-07] MEDS: ENOXAPARIN 40 MG/0.4 ML SYRINGE SUB-Q (08:45)
[2025-02-07] MEDS: PANTOPRAZOLE SODIUM IV 40 MG VIAL IV PUSH ×2 (08:46→20:06)
[2025-02-07] MEDS: METOPROLOL TARTRATE 25 MG TABLET PO ×2 (08:46→17:21)
--- NOTE | 2025-02-07 09:06 | WPDINTPN ---
Progress Note: A&P Assessment and Plan (1) Acute hypoxic respiratory failure: Code(s): J96.01 - Acute respiratory failure with hypoxia Status: Acute Assessment and Plan: 01/31/2025: Patient presented from [facility] with hypoxia, periods of apnea, and unresponsiveness. She was brought to the ED being bagged, she did not have a gag and was unresponsive in the ED so was intubated upon arrival to the ED. central line was also inserted as she was hypotensive CT scan showed right middle and right lower lobe consolidation. Since then patient has also received decent amount of IV fluids 02/05-accidentally got extubated during turning by the nursing staff. She was intubated 02/06 failed weaning trial. patient kept on going into apnea ventilation. Precedex rate was decreased and patient is now on ASV. 02/07 weaning trial was attempted again. Patient had high RSBI on PSV /. Patient was erratically breathing agitated and had drop in sats. Breathing trial was aborted -currently on CMV mode of ventilation, peep of 5 and 35 % FiO2 -ABGs and chest x-ray reviewed, ventilator adjusted by decreasing the rate -continue bronchodilators and Mucomyst nebulizer -Lasix IV will be continued (2) AMS (altered mental status): Qualifiers: Altered mental status type: unspecified Qualified Code(s): R41.82 - Altered mental status, unspecified Code(s): R41.82 - Altered mental status, unspecified Status: Acute Assessment and Plan: Encephalopathy could be related to hypoxia, hypercapnia, pneumonia/infection/hypotension, could be related to medication -head CT negative at the time of presentation -currently intubated -offer send fentanyl and on Precedex -upon review of chart patient appears to be nonverbal at baseline and communicates her needs with gestures. She walks around in the hallways and is able to eat modified diet (3) Pneumonia: Qualifiers: Pneumonia type: due to unspecified organism Laterality: right Lung location: unspecified part of lung Qualified Code(s): J18.9 - Pneumonia, unspecified organism Code(s): J18.9 - Pneumonia, unspecified organism Status: Acute Assessment and Plan: Chest x-ray and CTA chest show right lower lobe consolidation -according the [facility] records: Repeat CT chest showed interval development of new airspace opacities raising concern for aspiration pneumonia. She was transition to Zosyn from cefepime. MBS performed on 01/26 at [facility] [place] which showed no evidence of aspiration despite coughing especially with swallowing. -continue Zosyn, azithromycin (01/31) -MRSA screen is negative, vancomycin discontinued (02/01) (4) Sepsis: Code(s): A41.9 - Sepsis, unspecified organism Status: Acute Assessment and Plan: Patient presented with altered mental status, hypoxia, apnea, pneumonia. -lactic acid was normal -blood pressures are borderline -patient was adequately fluid-resuscitated -status post albumin for volume expansion -off Levophed, -continue to monitor urine output and renal function -Lasix IV (5) Cerebral palsy: Code(s): G80.9 - Cerebral palsy, unspecified Status: Acute Assessment and Plan: Patient with cerebral palsy, mild intellectual disability, schizophrenia, nonverbal at baseline according the chart -patient on risperidone, will restart prior to extubation as she is currently sedated and intubated (6) Anemia: Code(s): D64.9 - Anemia, unspecified Status: Acute Assessment and Plan: Patient admitted with a hemoglobin of 10.3 on 01/31 -02/01: Hemoglobin dropped to 7.7, a repeat CBC was done which showed a hemoglobin of 7.3 -will check stools for occult blood, -folic acid and vitamin B12 level within normal limits -low iron levels, low TIBC, will give Venofer -LDH is normal, haptoglobin is pending -Protonix IV q.12 hours -continue to monitor (7) Electrolyte imbalance: Code(s): E87.8 - Other disorders of electrolyte and fluid balance, not elsewhere classified Status: Acute Assessment and Plan: Increase free water flushes for hypernatremia Potassium replacement ordered (8) Sinus tachycardia: Code(s): R00.0 - Tachycardia, unspecified Status: Acute Assessment and Plan: 02/04: Patient developed SVT/sinus tachycardia overnight with rates in the 180-200s. Was given IV metoprolol x1 with improvement which brought her rate start to 130s. -could be multifactorial, related to sepsis, anemia, coronary artery disease -TSH normal -will continue metoprolol -currently sinus tachycardia monitor - mild elevation in troponin level with the levels have trended down -cardiology consult 02/02/2025: Echocardiogram Summary 1. Complete two-dimensional, color flow and Doppler transthoracic echocardiogram is performed. 2. Left ventricular chamber dimension is normal. 3. Left ventricular systolic function is normal, estimated at 60-65%. 4. The left ventricular diastolic function is grade I diastolic dysfunction. 5. E/e' 7 is not elevated. 6. There is mild aortic valve sclerosis. 7. There is trace tricuspid valve regurgitation. 8. Mild pulmonary hypertension, estimated pulmonary arterial systolic pressure is 41 mmHg. (9) Constipation: Code(s): K59.00 - Constipation, unspecified Status: Acute Assessment and Plan: 02/04: KUB showed moderate fecal retention -improved with laxatives as patient is now having bowel movements. Continue Docusate sodium and senna and MiraLax Plan DVT prophylaxis: Lovenox Stress ulcer prophylaxis: Protonix IV q.12 hours Nutrition: Tolerating tube feeds, patient on stool softener and MiraLax Code Status: Full -patient is a guardian/bear of the state ([place]) Critical Care Time Spent: 30 minutes Due to a high probability of clinically significant, life threatening deterioration, the patient required my highest level of preparedness to intervene emergently and I personally spent this critical care time directly and personally managing the patient. This critical care time included obtaining a history; examining the patient; pulse oximetry; ordering and review of studies; arranging urgent treatment with development of a management plan; evaluation of patient's response to treatment; frequent reassessment; and discussions with other providers. It was exclusive of separately billable procedures and treating other patients and teaching time. Please see Assessment and Plan section and the rest of the note for further information on patient assessment and treatment This dictation may have been done utilizing a voice recognition system. Attempts have been made to correct errors. However, there may be uncorrected grammatical, spelling, and recognitions errors present. Subjective Date/time seen: 02/07/25 Overnight events reviewed. Afebrile Patient failed her weaning Trial yesterday and again this morning Continues to be on mechanical ventilation 35% FiO2 Sinus tachycardia on the monitor Continues to be sedated with Precedex and low-dose propofol Tolerating tube feeds. Other Vitals acceptable Good urine output in response to diuretic Review of Systems Review of Systems: ROS unobtainable: Yes unobtainable due to endotracheal tube, unobtainable due to medical condition and unobtainable due to mental status Exam Narrative: General: Petite female/malnourished, in no acute distress HEENT:? Pupils are pinpoint, sluggish, ETT in place Neck:? Supple Respiratory:? Coarse breath sounds bilaterally, rales on right base, no wheezing, adequate air entry otherwise Cardiac:? S1-S2 normal, regular rate and rhythm Abdomen:? Soft, nontender, nondistended, hypoactive bowel sounds Extremities:? Trace edema, bilateral pedal pulses are palpable Neuro:? Intubated, sedated, eyes are open and she moves all 4 extremities, tries to pull lines and try to get out of bed. She has a decent cough but she does not follow any commands. On pressure support ventilation trial she goes into apnea ventilation intermittent Skin:? No skin lesions noted Psych:? Unable to assess at this time Objective Data Vital Signs Vital Signs: Vital Signs - 24 hr 02/06/25 10:00 02/06/25 10:00 02/06/25 10:28 Temperature 37.4 C Pulse Rate 105 H 105 H 109 H Respiratory Rate 20 Blood Pressure 136/94 H Pulse Oximetry 100 99 Oxygen Delivery Mechanical Ventilation Fraction of Inspired Oxygen 35 02/06/25 12:00 02/06/25 12:00 02/06/25 12:00 Temperature 37.0 C Pulse Rate 108 H 103 H Respiratory Rate 15 Blood Pressure 117/78 Pulse Oximetry 99 Oxygen Delivery Mechanical Ventilation Fraction of Inspired Oxygen 35 02/06/25 12:00 02/06/25 12:40 02/06/25 12:42 Temperature Pulse Rate 104 H 104 H Respiratory Rate 18 18 Blood Pressure Pulse Oximetry Oxygen Delivery Fraction of Inspired Oxygen 35 02/06/25 13:39 02/06/25 13:50 02/06/25 13:52 Temperature Pulse Rate 107 H 102 H 104 H Respiratory Rate 16 15 Blood Pressure Pulse Oximetry 99 Oxygen Delivery Mechanical Ventilation Fraction of Inspired Oxygen 35 02/06/25 14:00 02/06/25 14:00 02/06/25 14:00 Temperature Pulse Rate 104 H 104 H 104 H Respiratory Rate 15 15 Blood Pressure Pulse Oximetry Oxygen Delivery Fraction of Inspired Oxygen 02/06/25 14:00 02/06/25 16:00 02/06/25 16:00 Temperature 37.4 C Pulse Rate 104 H 109 H 109 H Respiratory Rate 15 17 17 Blood Pressure 115/75 Pulse Oximetry 99 Oxygen Delivery Fraction of Inspired Oxygen 02/06/25 16:00 02/06/25 16:00 02/06/25 16:00 Temperature Pulse Rate 101 H Respiratory Rate Blood Pressure Pulse Oximetry Oxygen Delivery Mechanical Ventilation Fraction of Inspired Oxygen 35 35 02/06/25 16:00 02/06/25 16:05 02/06/25 16:58 Temperature 37.4 C Pulse Rate 101 H 101 H 90 Respiratory Rate 17 Blood Pressure 136/103 H Pulse Oximetry 99 100 Oxygen Delivery Mechanical Ventilation Fraction of Inspired Oxygen 35 02/06/25 18:00 02/06/25 18:00 02/06/25 18:00 Temperature 37.5 C Pulse Rate 90 90 90 Respiratory Rate 21 H 21 H Blood Pressure 132/89 Pulse Oximetry 100 Oxygen Delivery Fraction of Inspired Oxygen 02/06/25 18:00 02/06/25 20:00 02/06/25 20:00 Temperature Pulse Rate 90 93 93 Respiratory Rate 21 H 18 18 Blood Pressure Pulse Oximetry 99 Oxygen Delivery Mechanical Ventilation Fraction of Inspired Oxygen 40 02/06/25 20:00 02/06/25 20:00 02/06/25 20:00 Temperature 37.4 C Pulse Rate 93 100 Respiratory Rate 18 Blood Pressure 128/91 H Pulse Oximetry 99 Oxygen Delivery Fraction of Inspired Oxygen 40 02/06/25 20:00 02/06/25 20:15 02/06/25 20:37 Temperature Pulse Rate 93 96 90 Respiratory Rate 18 15 Blood Pressure Pulse Oximetry 93 Oxygen Delivery Mechanical Ventilation Fraction of Inspired Oxygen 40 02/06/25 20:48 02/06/25 21:11 02/06/25 21:11 Temperature Pulse Rate 93 94 94 Respiratory Rate 17 22 H 22 H Blood Pressure Pulse Oximetry Oxygen Delivery Fraction of Inspired Oxygen 02/06/25 21:24 02/06/25 22:00 02/06/25 22:00 Temperature 37.3 C Pulse Rate 94 94 94 Respiratory Rate 15 16 Blood Pressure 124/80 Pulse Oximetry 100 Oxygen Delivery Fraction of Inspired Oxygen 02/06/25 22:00 02/06/25 22:00 02/06/25 23:08 Temperature Pulse Rate 94 94 89 Respiratory Rate 16 16 Blood Pressure Pulse Oximetry 96 Oxygen Delivery Mechanical Ventilation Fraction of Inspired Oxygen 35 02/07/25 00:00 02/07/25 00:00 02/07/25 00:00 Temperature 37.4 C Pulse Rate 90 90 Respiratory Rate 16 16 Blood Pressure 102/64 Pulse Oximetry 98 98 Oxygen Delivery Mechanical Ventilation Fraction of Inspired Oxygen 40 40 02/07/25 00:00 02/07/25 00:00 02/07/25 00:00 Temperature Pulse Rate 90 90 92 Respiratory Rate 16 16 Blood Pressure Pulse Oximetry Oxygen Delivery Fraction of Inspired Oxygen 02/07/25 01:52 02/07/25 01:52 02/07/25 02:00 Temperature Pulse Rate 92 92 94 Respiratory Rate 15 15 Blood Pressure Pulse Oximetry 96 Oxygen Delivery Mechanical Ventilation Fraction of Inspired Oxygen 35 02/07/25 02:00 02/07/25 02:00 02/07/25 02:00 Temperature 37.3 C Pulse Rate 93 93 93 Respiratory Rate 15 15 Blood Pressure 113/67 Pulse Oximetry 97 Oxygen Delivery Fraction of Inspired Oxygen 02/07/25 02:00 02/07/25 04:00 02/07/25 04:00 Temperature Pulse Rate 93 92 Respiratory Rate 15 15 Blood Pressure Pulse Oximetry 99 Oxygen Delivery Mechanical Ventilation Fraction of Inspired Oxygen 40 40 02/07/25 04:00 02/07/25 04:00 02/07/25 04:00 Temperature 37.3 C Pulse Rate 92 92 93 Respiratory Rate 15 15 15 Blood Pressure 111/67 Pulse Oximetry 99 Oxygen Delivery Fraction of Inspired Oxygen 02/07/25 04:00 02/07/25 04:18 02/07/25 04:18 Temperature Pulse Rate 94 90 90 Respiratory Rate 15 15 Blood Pressure Pulse Oximetry Oxygen Delivery Fraction of Inspired Oxygen 02/07/25 05:00 02/07/25 05:10 02/07/25 05:30 Temperature Pulse Rate 86 93 99 Respiratory Rate 15 15 Blood Pressure Pulse Oximetry 100 Oxygen Delivery Mechanical Ventilation Fraction of Inspired Oxygen 35 02/07/25 06:00 02/07/25 06:00 02/07/25 06:00 Temperature Pulse Rate 86 86 86 Respiratory Rate 15 15 Blood Pressure Pulse Oximetry Oxygen Delivery Fraction of Inspired Oxygen 02/07/25 06:00 02/07/25 07:14 02/07/25 08:00 Temperature 36.8 C Pulse Rate 86 101 H 95 Respiratory Rate 15 15 20 Blood Pressure 114/68 Pulse Oximetry 99 Oxygen Delivery Fraction of Inspired Oxygen 02/07/25 08:07 02/07/25 08:35 02/07/25 08:35 Temperature Pulse Rate 101 H 114 H 101 H Respiratory Rate 15 16 16 Blood Pressure Pulse Oximetry Oxygen Delivery Fraction of Inspired Oxygen 02/07/25 08:46 Temperature Pulse Rate 118 H Respiratory Rate Blood Pressure Pulse Oximetry Oxygen Delivery Fraction of Inspired Oxygen Intake/Output Intake/Output: Intake & Output 02/04/25 02/05/25 02/06/25 02/07/25 23:59 23:59 23:59 23:59 Intake Total 2940.3 1776.0 2204.6 1205.6 Output Total 4475 4800 1200 600 Balance -1534.7 -3024.0 1004.6 605.6 Meds/Results Medications: Active Medications Generic Name Dose Route Start Last Admin Trade Name Freq PRN Reason Stop Dose Admin Acetaminophen 650 mg 02/03/25 22:36 02/05/25 21:31 Acetaminophen Elixir 325 Mg/10.15 Ml Udc PO 650 mg Q6H PRN Administration Mild Pain (1-3) or Fever Dextrose 12.5 gm 02/01/25 07:23 Dextrose 50% 25 Gm/50 Ml Syringe IV PUSH PRN PRN Hypoglycemia Protocol Docusate Sodium 100 mg 02/01/25 09:40 02/07/25 08:46 Docusate Sodium Liq 100 Mg/10 Ml Udc PO Not Given Q12HR HAIM Enoxaparin Sodium 40 mg 02/07/25 09:00 02/07/25 08:45 Enoxaparin 40 Mg/0.4 Ml Syringe SUB-Q 40 mg DAILY HAIM Administration Furosemide 40 mg 02/07/25 12:00 Furosemide Inj 40 Mg/4 Ml Vial IV PUSH 02/07/25 12:01 ONCE ONE Glucagon 1 mg 02/01/25 07:23 Glucagon For Inj 1 Mg Vial IM PRN PRN Hypoglycemia Protocol Glucose 15 gm 02/01/25 07:23 Glucose Oral Gel 15 Gm Of Glucse In 37.5 Gm Tube PO PRN PRN Hypoglycemia Protocol Piperacillin Sod/Tazobactam Sod 4.5 gm in 100 mls @ 200 mls/hr 01/31/25 23:00 02/07/25 05:40 Zosyn 4.5 Gm/Ns 100 Ml IVPB 02/07/25 23:59 Infused Q6HR HAIM Infusion Dextrose 1,000 mls @ 100 mls/hr 02/01/25 07:23 Dextrose 5% 1,000 Ml IVPB PRN PRN Hypoglycemia Protocol Dexmedetomidine HCl 400 mcg in 100 mls @ 7.543 mls/hr 02/06/25 12:20 02/07/25 08:35 Precedex 400 Mcg/100 Ml IV CONT 0.7 mcg/kg/hr .[id number] HAIM 7.54 mls/hr Titration Protocol 0.7 MCG/KG/HR Propofol 100 mls @ 2.334 mls/hr 02/06/25 12:35 02/07/25 08:35 Diprivan IV CONT 10 mcg/kg/min .[id number] HAIM 2.33 mls/hr Titration Protocol 10 MCG/KG/MIN Insulin Aspart 3 - 6 units 02/01/25 12:00 02/07/25 06:03 Insulin Aspart (*Bkc) 100 Units/Ml SUB-Q Not Given Q6HR HAIM Protocol Ipratropium [place] 0.5 mg 02/04/25 14:00 02/07/25 08:18 Ipratropium Br 0.02% Inh Soln 0.5 Mg/2.5 Ml Vial INHALATION 0.5 mg Q6HRT HAIM Administration Levalbuterol HCl 0.63 mg 02/04/25 14:00 02/07/25 08:18 Levalbuterol Neb 1.25 Mg/3 Ml INHALATION 0.63 mg Q6HRT HAIM Administration Metoprolol Tartrate 5 mg 02/04/25 04:26 02/06/25 05:47 Metoprolol Tartrate Inj 5 Mg/5 Ml Vial IV PUSH 5 mg Q6H PRN Administration HR > 130 Metoprolol Tartrate 25 mg 02/04/25 09:00 02/07/25 08:46 Metoprolol Tartrate 25 Mg Tablet PO 25 mg BID HAIM Administration Multi-Ingred Cream/Lotion/Oil/Oint 1 applic 02/01/25 21:00 02/07/25 08:04 Mineral Oil/White Petrolatum Ointment EACH EYE 1 applic Q12HR HAIM Administration Ondansetron HCl 4 mg 01/31/25 16:00 Ondansetron Inj 4 Mg/2 Ml Vial IV PUSH Q4H PRN Nausea Pantoprazole Sodium 40 mg 02/01/25 09:00 02/07/25 08:46 Pantoprazole Sodium Iv 40 Mg Vial IV PUSH 40 mg Q12HR HAIM Administration Polyethylene Glycol 17 gm 02/01/25 09:25 02/07/25 08:46 Polyethylene Glycol 3350 17 Gm Powd.Pack PO Not Given QAM HAIM Potassium Chloride 40 meq 02/07/25 07:45 02/07/25 08:04 Potassium Chloride 20 Meq Packet (For Liquid) FEED TUBE 02/07/25 11:46 40 meq Q4H HAIM Administration Sodium Chloride 10 ml 02/01/25 14:00 02/07/25 06:03 Central Line Flush IV PUSH 10 ml Q8HR HAIM Administration Sodium Chloride 20 ml 02/01/25 06:37 Central Line Flush IV PUSH PRN PRN after blood draws Radiology Results: ITS Impressions Head CT 01/31/25 15:47 Impression: No acute intracranial hemorrhage or suspicious mass effect. Chest/Abdomen/Pelvis CTA 01/31/25 15:49 IMPRESSION: Right middle and lower lobe pneumonia with dense consolidation. Left basilar atelectasis. No pulmonary embolus. No aortic dissection. Oral contrast opacifies the entirety of the colon. Supportive lines in good position. No acute pathology within the remainder of the examination, as detailed above. Chest X-Ray 02/07/25 05:50 IMPRESSION: 1. Airspace opacities in the lower lung zones with interval improvement, consistent with atelectasis versus pneumonia. Labs Labs: Laboratory Results - last 24 hr 02/06/25 02/06/25 02/06/25 11:08 17:26 18:31 WBC RBC Hgb Hct MCV MCH MCHC RDW Plt Count MPV Immature Gran % (Auto) Neut % (Auto) Lymph % (Auto) [place] % (Auto) Eos % (Auto) Baso % (Auto) Lymph # (Auto) [place] # (Auto) Eos # (Auto) Baso # (Auto) Abs Immat Gran (auto) Absolute Neuts (auto) Absolute Nucleated RBC Nucleated RBC % APTT Puncture Site ABG pH ABG pCO2 ABG pO2 ABG PO2/FiO2 Ratio ABG HCO3 ABG O2 Saturation ABG O2 Content ABG Base Excess A-a Gradient Oxyhemoglobin Carboxyhemoglobin Methemoglobin Reduced Hemoglobin Total Hemoglobin O2 Delivery Device O2 Liters/Min Minute Volume Vent Rate Vent Mode FiO2 Tidal Volume PEEP Peak Inspir Pressure Pressure Support Sodium 147 H Potassium 4.1 Chloride 109 H Carbon Dioxide 31 H Anion Gap 7 BUN 25 H Creatinine 0.53 L Estim Creat Clear Calc 51 Estimated GFR > 60 Glucose 113 H POC Capillary Glucose 119 H 120 H Calcium 9.4 Phosphorus Magnesium Total Bilirubin AST ALT Alkaline Phosphatase Total Protein Albumin 02/07/25 02/07/25 02/07/25 00:32 05:26 05:47 WBC 10.4 H RBC 2.91 L Hgb 8.7 L Hct 27.6 L MCV 94.8 MCH 29.9 MCHC 31.5 L RDW 16.1 H Plt Count 224 MPV 10.8 H Immature Gran % (Auto) 0.9 H Neut % (Auto) 74.0 H Lymph % (Auto) 17.1 L [place] % (Auto) 7.9 Eos % (Auto) 0.0 Baso % (Auto) 0.1 L Lymph # (Auto) 1.77 [place] # (Auto) 0.8 H Eos # (Auto) 0.0 Baso # (Auto) 0.0 Abs Immat Gran (auto) 0.09 H Absolute Neuts (auto) 7.7 H Absolute Nucleated RBC 0.020 H Nucleated RBC % 0.2 APTT 34.5 Puncture Site Right radial ABG pH 7.434 ABG pCO2 43.3 ABG pO2 84.2 ABG PO2/FiO2 Ratio 2.41 ABG HCO3 28.4 H ABG O2 Saturation 96.6 ABG O2 Content 12.8 L ABG Base Excess 3.7 A-a Gradient 115.0 Oxyhemoglobin 95.9 Carboxyhemoglobin 0.1 Methemoglobin 0.3 Reduced Hemoglobin 3.7 Total Hemoglobin 9.4 L O2 Delivery Device Ventilator O2 Liters/Min Not Reportable Minute Volume Not Reportable Vent Rate 15 Vent Mode Cmv FiO2 35 Tidal Volume 310 PEEP 5 Peak Inspir Pressure Not Reportable Pressure Support Not Reportable Sodium 146 H Potassium 3.2 L Chloride 108 H Carbon Dioxide 31 H Anion Gap 7 BUN 25 H Creatinine 0.61 L Estim Creat Clear Calc 45 Estimated GFR > 60 Glucose 121 H POC Capillary Glucose 105 Calcium 9.2 Phosphorus 3.4 Magnesium 2.6 H Total Bilirubin 0.5 AST 45 H ALT 30 Alkaline Phosphatase 85 Total Protein 7.0 Albumin 3.4 L Quality VTE Prophylaxis VTE prophylaxis: mechanical ordered
--- NOTE | 2025-02-07 10:41 | PCFNICU ---
ICU Rounding Note: Pt current nutrition is Vital AF 1.2 at 50 ml/hr. Last recorded weight is 39.1 kg, up from 38.8 kg on admit. Bowel Motility: +BM reported 02/07 Labs Reviewed:Glu 121, BUN 25, Na 146, Alb 3.4 Meds Noted:Propofol 20 qpsg=866 kcal, Precedex, Colace, Miralax Skin: WNL Additional Notes: Patient remains on mechanical vent. Failed breathing trial again today. Tube feedings are being tolerated of Vital AF 1.2 at 50 ml/hr. Flush increased to 150 ml q 4 hours, Na 146 today. Total Nutrition including Propofol iobltwaw=4500 kcal/82 gm protein/892 ml water. Agree with diet orders at this time. Following daily in ICU rounds. Will monitor weight, labs, skin, diet orders, meds every Wednesday and Wednesday.
[2025-02-07] MEDS: FUROSEMIDE INJ 40 MG/4 ML VIAL IV PUSH (12:29)
[2025-02-07 12:55] LABS: Glucose Point of Care 106 mg/dl (65-105)
[2025-02-07 17:58] LABS: Anion Gap 7 mmol/L (4-12); Blood Urea Nitrogen 25 mg/dL (7-17); Calcium 9.3 mg/dL (8.4-10.2); Carbon Dioxide 33 mmol/L (22-30); Chloride 104 mmol/L (98-107); Estimated CRCL calculation 46 ml/min; Estimated Glomerular Filt Rate > 60; Glucose 122 mg/dL (65-110); Potassium 3.5 mmol/L (3.4-5.0); Sodium 144 mmol/L (137-145)
[2025-02-07] MEDS: PROPOFOL IV EMULSION 100 ML 7 MG IV CONT (18:42)
[2025-02-07] MEDS: dexmedeTOMIDine 400 MCG/100 ML 400 MCG/100 ML BAG 7.54 MCG IV CONT (21:30)
[2025-02-08] VITALS (45 sets, daily range): BP systolic 91–134; BP diastolic 65–100; PULSE 10–112; RESP 15–35; TEMP 37.3–37.8; O2SAT 94–100
[2025-02-08 00:41] LABS: Glucose Point of Care 114 mg/dl (65-105)
[2025-02-08] MEDS: IPRATROPIUM BR 0.02% INH SOLN 0.5 MG/2.5 ML VIAL INHALATION ×4 (01:41→20:10)
[2025-02-08] MEDS: LEVALBUTEROL NEB 1.25 MG/3 ML 0.63 MG INHALATION ×4 (01:41→20:10)
[2025-02-08 04:53] LABS: Alveolar/Arterial O2 Gradient 88.8 mmHg; Base Excess ABG 6.7 mEq/l (+/-2.0); Carboxyhemoglobin 0.5 % THb (0-2.0); Fractional Inspired Oxygen 30 %; HCO3 ABG 32.2 mEq/l (22.0-26.0); Oxygen Content ABG 17.1 %vol (16.0-22.0); Oxygen Saturation ABG 93.6 % (95.0-100.0); Oxyhemoglobin 92.1 % THb (90.0-100.0); PCO2 ABG 49.5 mmHg (35.0-45.0); PO2 ABG 66.9 mmHg (80.0-100.0); PO2 FiO2 Ratio Arterial Blood 2.23 %; Reduced Hemoglobin 7.4 %THb (0-5.0); Total Hemoglobin 13.2 g/dL (12.0-18.0); pH ABG 7.431 (7.350-7.450)
[2025-02-08 04:59] LABS: Device VENTILATOR; Modified Allen's Test Pass; Site Drawn RIGHT RADIAL
[2025-02-08 05:00] LABS: Arterial Blood Gas Ventilator rate 15 /MIN
[2025-02-08 05:01] LABS: Arterial Blood Gas PEEP 5 cmH2O; Arterial Blood Gas Vent Mode CMV
[2025-02-08 05:02] LABS: Arterial Blood Gas Tidal Volume 310 ml
[2025-02-08 05:12] LABS: Basophils Percent Auto 0.1 % (0.2-1.2); Hematocrit 28.1 % (37.0-47.0); Hemoglobin 8.9 g/dL (12.0-15.0); Immature Granulocyte Absolute 0.07 K/mm3 (0.00-0.031); Immature Granulocyte Percent A 0.6 % (0-0.5); Lymphocytes Absolute Auto 1.85 K/mm3 (0.9-3.2); Lymphocytes Percent Auto 16.8 % (18.3-44.2); Mean Corpuscular HGB Conc 31.7 g/dl (32-36); Mean Corpuscular Hemoglobin 29.7 pg (26-34); Mean Corpuscular Volume 93.7 fl (80-100); Mean Platelet Volume 11.2 fl (7.4-10.4); Monocytes Absolute Auto 0.8 K/mm3 (0.1-0.6); Monocytes Percent Auto 7.3 % (2.6-8.5); Neutrophils Absolute Auto 8.3 K/mm3 (1.3-6.7); Neutrophils Percent Auto 75.2 % (45.5-73.1); Platelet Count Result 249 k/mm3 (150-375); Red Cell Distribution Width 16.3 % (11.5-14.5)
[2025-02-08 05:26] LABS: Alanine Aminotransferase 36 U/L (6-35); Albumin Level 3.6 g/dL (3.5-5.1); Alkaline Phosphatase 89 U/L (38-126); Anion Gap 10 mmol/L (4-12); Aspartate Amino Transferase 51 U/L (14-36); Bilirubin,Total 0.5 mg/dL (0.2-1.3); Blood Urea Nitrogen 23 mg/dL (7-17); Calcium 9.4 mg/dL (8.4-10.2); Carbon Dioxide 32 mmol/L (22-30); Chloride 101 mmol/L (98-107); Estimated CRCL calculation 50 ml/min; Estimated Glomerular Filt Rate > 60; Glucose 121 mg/dL (65-110); Magnesium 2.3 mg/dL (1.6-2.3); Potassium 3.2 mmol/L (3.4-5.0); Sodium 143 mmol/L (137-145)
[2025-02-08 05:45] LABS: Partial Thromboplastin Time 33.8 Seconds (22.3-36.8)
[2025-02-08] MEDS: CENTRAL LINE FLUSH 10 ML IV PUSH ×3 (07:07→22:25)
[2025-02-08] MEDS: PROPOFOL IV EMULSION 100 ML 5.84 MG IV CONT (07:18)
[2025-02-08] MEDS: PANTOPRAZOLE SODIUM IV 40 MG VIAL IV PUSH ×2 (08:11→22:22)
[2025-02-08] MEDS: DOCUSATE SODIUM LIQ 100 MG/10 ML UDC PO (08:11)
[2025-02-08] MEDS: MINERAL OIL/WHITE PETROLATUM OINTMENT 1 APPLIC EACH EYE ×2 (08:12→22:22)
[2025-02-08] MEDS: ENOXAPARIN 40 MG/0.4 ML SYRINGE SUB-Q (08:12)
[2025-02-08] MEDS: METOPROLOL TARTRATE 25 MG TABLET PO ×2 (08:12→17:20)
[2025-02-08] MEDS: POTASSIUM CHLORIDE 20 MEQ PACKET (FOR LIQUID) 40 MEQ FEED TUBE ×2 (08:37→11:48)
--- NOTE | 2025-02-08 09:27 | P.PNINT_ITS ---
Progress Note: A&P Assessment and Plan (1) Acute hypoxic respiratory failure: Code(s): J96.01 - Acute respiratory failure with hypoxia Status: Acute Assessment and Plan: 01/31/2025: Patient presented from [facility] with hypoxia, periods of apnea, and unresponsiveness. She was brought to the ED being bagged, she did not have a gag and was unresponsive in the ED so was intubated upon arrival to the ED. central line was also inserted as she was hypotensive CT scan showed right middle and right lower lobe consolidation. Since then patient has also received decent amount of IV fluids 02/05-accidentally got extubated during turning by the nursing staff. She was intubated 02/06 failed weaning trial. patient kept on going into apnea ventilation. Precedex rate was decreased and patient is now on ASV. 02/07 weaning trial was attempted again. Patient had high RSBI on PSV 03/19. Patient was erratically breathing agitated and had drop in sats. Breathing trial was aborted 02/08 sedation holiday and weaning trial again today -currently on CMV mode of ventilation, peep of 5 and 30 % FiO2 -ABGs and chest x-ray reviewed, ventilator adjusted by decreasing the rate -continue bronchodilators and Mucomyst nebulizer -completed course of Zosyn and azithromycin -Lasix IV will be continued after potassium replacement (2) AMS (altered mental status): Qualifiers: Altered mental status type: unspecified Qualified Code(s): R41.82 - Altered mental status, unspecified Code(s): R41.82 - Altered mental status, unspecified Status: Acute Assessment and Plan: Encephalopathy could be related to hypoxia, hypercapnia, pneumonia/infection/hypotension, could be related to medication -head CT negative at the time of presentation -currently intubated -offer send fentanyl and on Precedex -upon review of chart patient appears to be nonverbal at baseline and communicates her needs with gestures. She walks around in the hallways and is able to eat modified diet (3) Pneumonia: Qualifiers: Pneumonia type: due to unspecified organism Laterality: right Lung location: unspecified part of lung Qualified Code(s): J18.9 - Pneumonia, unspecified organism Code(s): J18.9 - Pneumonia, unspecified organism Status: Acute Assessment and Plan: Chest x-ray and CTA chest show right lower lobe consolidation -according the [facility] records: Repeat CT chest showed interval development of new airspace opacities raising concern for aspiration pneumonia. She was transition to Zosyn from cefepime. MBS performed on 01/26 at [facility] which showed no evidence of aspiration despite coughing especially with swallowing. - completed course of Zosyn, azithromycin (01/31) -MRSA screen is negative, vancomycin discontinued (02/01) (4) Sepsis: Code(s): A41.9 - Sepsis, unspecified organism Status: Acute Assessment and Plan: Patient presented with altered mental status, hypoxia, apnea, pneumonia. -lactic acid was normal -blood pressures are borderline -patient was adequately fluid-resuscitated -status post albumin for volume expansion -off Levophed, -continue to monitor urine output and renal function -Lasix IV will be continued after potassium replacement (5) Cerebral palsy: Code(s): G80.9 - Cerebral palsy, unspecified Status: Acute Assessment and Plan: Patient with cerebral palsy, mild intellectual disability, schizophrenia, nonverbal at baseline according the chart -patient on risperidone, will restart prior to extubation as she is currently sedated and intubated (6) Anemia: Code(s): D64.9 - Anemia, unspecified Status: Acute Assessment and Plan: Patient admitted with a hemoglobin of 10.3 on 01/31 -02/01: Hemoglobin dropped to 7.7, a repeat CBC was done which showed a hemoglobin of 7.3 -will check stools for occult blood, -folic acid and vitamin B12 level within normal limits -low iron levels, low TIBC, will give Venofer -LDH is normal, haptoglobin is pending -Protonix IV q.12 hours -continue to monitor (7) Electrolyte imbalance: Code(s): E87.8 - Other disorders of electrolyte and fluid balance, not elsewhere classified Status: Acute Assessment and Plan: Increase free water flushes for hypernatremia Potassium replacement ordered (8) Sinus tachycardia: Code(s): R00.0 - Tachycardia, unspecified Status: Acute Assessment and Plan: 02/04: Patient developed SVT/sinus tachycardia overnight with rates in the 180- 200s. Was given IV metoprolol x1 with improvement which brought her rate start to 130s. -could be multifactorial, related to sepsis, anemia, coronary artery disease -TSH normal -will continue metoprolol -currently sinus tachycardia monitor - mild elevation in troponin level with the levels have trended down -cardiology consult 02/02/2025: Echocardiogram Summary 1. Complete two-dimensional, color flow and Doppler transthoracic echocardiogram is performed. 2. Left ventricular chamber dimension is normal. 3. Left ventricular systolic function is normal, estimated at 60-65%. 4. The left ventricular diastolic function is grade I diastolic dysfunction. 5. E/e' 7 is not elevated. 6. There is mild aortic valve sclerosis. 7. There is trace tricuspid valve regurgitation. 8. Mild pulmonary hypertension, estimated pulmonary arterial systolic pressure is 41 mmHg. (9) Constipation: Code(s): K59.00 - Constipation, unspecified Status: Acute Assessment and Plan: 02/04: KUB showed moderate fecal retention -improved with laxatives as patient is now having bowel movements. Continue Docusate sodium and senna and MiraLax Plan DVT prophylaxis: Lovenox Stress ulcer prophylaxis: Protonix IV q.12 hours Nutrition: Tolerating tube feeds, patient on stool softener and MiraLax Code Status: Full -patient is a guardian/bear of the state ([place]) Critical Care Time Spent: 31 minutes Due to a high probability of clinically significant, life threatening deterioration, the patient required my highest level of preparedness to intervene emergently and I personally spent this critical care time directly and personally managing the patient. This critical care time included obtaining a history; examining the patient; pulse oximetry; ordering and review of studies; arranging urgent treatment with development of a management plan; evaluation of patient's response to treatment; frequent reassessment; and discussions with other providers. It was exclusive of separately billable procedures and treating other patients and teaching time. Please see Assessment and Plan section and the rest of the note for further information on patient assessment and treatment This dictation may have been done utilizing a voice recognition system. Attempts have been made to correct errors. However, there may be uncorrected grammatical, spelling, and recognitions errors present. Subjective Date/time seen: 02/08/25 Overnight events reviewed. Afebrile Continues to be on mechanical ventilation 30% FiO2 Tolerating tube feed Continues to be sedated with propofol and Precedex Other Vitals acceptable Interval history: Reason for consult: Acute respiratory failure, pneumonia, altered mental status, unresponsiveness, anemia Review of Systems Review of Systems: ROS unobtainable: Yes unobtainable due to endotracheal tub e, unobtainable due to medical condition and unobtainable due to mental status Exam Narrative: General: Petite female/malnourished, in no acute distress HEENT:? Pupils are pinpoint, sluggish, ETT in place Neck:? Supple Respiratory:? Coarse breath sounds bilaterally, rales on right base, no wheezing, adequate air entry otherwise Cardiac:? S1-S2 normal, regular rate and rhythm Abdomen:? Soft, nontender, nondistended, hypoactive bowel sounds Extremities:? Trace edema, bilateral pedal pulses are palpable Neuro:? Intubated, sedated, eyes are open and she moves all 4 extremities, tries to pull lines and try to get out of bed. Nodes are head on calling her name but does not follow any command. She has a decent cough but she does not follow any commands. On pressure support ventilation trial she goes into apnea ventilation intermittent Skin:? No skin lesions noted Psych:? Unable to assess at this time Objective Data Vital Signs Vital Signs: Vital Signs - 24 hr 02/07/25 09:52 02/07/25 10:00 02/07/25 10:00 Temperature 37.1 C Pulse Rate 102 H 109 H 109 H Respiratory Rate 18 21 H Blood Pressure 125/99 H Pulse Oximetry 99 Oxygen Delivery Fraction of Inspired Oxygen 02/07/25 10:00 02/07/25 10:47 02/07/25 11:45 Temperature Pulse Rate 109 H 107 H 99 Respiratory Rate 17 15 Blood Pressure Pulse Oximetry 95 Oxygen Delivery Mechanical Ventilation Fraction of Inspired Oxygen 35 02/07/25 12:00 02/07/25 12:00 02/07/25 12:00 Temperature 37.3 C Pulse Rate 100 Respiratory Rate 15 Blood Pressure 104/69 Pulse Oximetry 100 100 Oxygen Delivery Mechanical Ventilation Fraction of Inspired Oxygen 35 35 02/07/25 12:00 02/07/25 12:00 02/07/25 12:00 Temperature Pulse Rate 99 99 99 Respiratory Rate 15 15 Blood Pressure Pulse Oximetry Oxygen Delivery Fraction of Inspired Oxygen 02/07/25 14:00 02/07/25 14:00 02/07/25 14:00 Temperature 37.4 C Pulse Rate 97 97 97 Respiratory Rate 15 15 Blood Pressure 105/72 Pulse Oximetry 99 Oxygen Delivery Fraction of Inspired Oxygen 02/07/25 14:00 02/07/25 14:25 02/07/25 14:26 Temperature Pulse Rate 97 97 98 Respiratory Rate 15 15 Blood Pressure Pulse Oximetry 99 Oxygen Delivery Mechanical Ventilation Fraction of Inspired Oxygen 35 02/07/25 16:00 02/07/25 16:00 02/07/25 16:00 Temperature 37.3 C Pulse Rate 98 Respiratory Rate 18 Blood Pressure 107/70 Pulse Oximetry 96 100 Oxygen Delivery Mechanical Ventilation Fraction of Inspired Oxygen 35 35 02/07/25 16:00 02/07/25 16:00 02/07/25 16:00 Temperature Pulse Rate 99 98 98 Respiratory Rate 18 18 Blood Pressure Pulse Oximetry Oxygen Delivery Fraction of Inspired Oxygen 02/07/25 17:21 02/07/25 18:00 02/07/25 18:00 Temperature Pulse Rate 93 91 86 Respiratory Rate 15 Blood Pressure Pulse Oximetry 100 Oxygen Delivery Mechanical Ventilation Fraction of Inspired Oxygen 35 02/07/25 18:00 02/07/25 18:00 02/07/25 18:00 Temperature 37.4 C Pulse Rate 86 83 88 Respiratory Rate 15 17 Blood Pressure 108/75 Pulse Oximetry 97 Oxygen Delivery Fraction of Inspired Oxygen 02/07/25 18:42 02/07/25 18:42 02/07/25 19:47 Temperature Pulse Rate 86 86 84 Respiratory Rate 15 15 Blood Pressure Pulse Oximetry 100 Oxygen Delivery Mechanical Ventilation Fraction of Inspired Oxygen 30 02/07/25 19:47 02/07/25 20:00 02/07/25 20:00 Temperature Pulse Rate 84 94 94 Respiratory Rate 15 15 15 Blood Pressure Pulse Oximetry Oxygen Delivery Fraction of Inspired Oxygen 02/07/25 20:00 02/07/25 20:00 02/07/25 20:00 Temperature Pulse Rate 94 94 Respiratory Rate 15 Blood Pressure Pulse Oximetry 98 Oxygen Delivery Mechanical Ventilation Fraction of Inspired Oxygen 35 35 02/07/25 20:00 02/07/25 21:30 02/07/25 21:30 Temperature 37.3 C Pulse Rate 92 96 96 Respiratory Rate 20 16 16 Blood Pressure 122/77 Pulse Oximetry 100 Oxygen Delivery Fraction of Inspired Oxygen 02/07/25 22:00 02/07/25 22:00 02/07/25 22:00 Temperature 37.7 C H Pulse Rate 95 95 93 Respiratory Rate 16 16 16 Blood Pressure 110/69 Pulse Oximetry 100 Oxygen Delivery Fraction of Inspired Oxygen 03/26/25 22:00 02/07/25 22:39 02/07/25 23:34 Temperature Pulse Rate 93 92 92 Respiratory Rate 16 Blood Pressure Pulse Oximetry 100 100 Oxygen Delivery Mechanical Ventilation Mechanical Ventilation Fraction of Inspired Oxygen 35 35 02/07/25 23:35 02/07/25 23:35 02/08/25 00:00 Temperature Pulse Rate 92 90 Respiratory Rate 16 Blood Pressure Pulse Oximetry Oxygen Delivery Fraction of Inspired Oxygen 35 02/08/25 00:00 02/08/25 00:00 02/08/25 01:41 Temperature 37.5 C Pulse Rate 90 91 93 Respiratory Rate 16 16 Blood Pressure 117/77 Pulse Oximetry 100 100 Oxygen Delivery Mechanical Ventilation Fraction of Inspired Oxygen 35 02/08/25 01:41 02/08/25 02:00 02/08/25 02:00 Temperature 37.4 C Pulse Rate 89 93 93 Respiratory Rate 16 16 Blood Pressure 119/79 Pulse Oximetry 100 Oxygen Delivery Fraction of Inspired Oxygen 02/08/25 02:00 02/08/25 02:00 02/08/25 04:00 Temperature Pulse Rate 91 91 100 Respiratory Rate 16 16 16 Blood Pressure Pulse Oximetry 100 Oxygen Delivery Mechanical Ventilation Fraction of Inspired Oxygen 35 02/08/25 04:00 02/08/25 04:00 02/08/25 04:00 Temperature 37.5 C Pulse Rate 100 100 Respiratory Rate 17 Blood Pressure 111/83 Pulse Oximetry 95 Oxygen Delivery Fraction of Inspired Oxygen 35 02/08/25 04:00 02/08/25 04:40 02/08/25 05:30 Temperature Pulse Rate 93 88 10 L Respiratory Rate 18 18 Blood Pressure Pulse Oximetry 98 Oxygen Delivery Mechanical Ventilation Fraction of Inspired Oxygen 35 02/08/25 06:00 02/08/25 06:00 02/08/25 07:00 Temperature 37.3 C Pulse Rate 88 103 H 101 H Respiratory Rate 16 15 Blood Pressure 121/84 Pulse Oximetry 98 Oxygen Delivery Fraction of Inspired Oxygen 02/08/25 07:18 02/08/25 07:18 02/08/25 08:00 Temperature Pulse Rate 94 94 Respiratory Rate 15 15 Blood Pressure Pulse Oximetry 100 Oxygen Delivery Mechanical Ventilation Fraction of Inspired Oxygen 35 02/08/25 08:00 02/08/25 08:00 02/08/25 08:12 Temperature Pulse Rate 100 112 H Respiratory Rate Blood Pressure Pulse Oximetry Oxygen Delivery Fraction of Inspired Oxygen 35 02/08/25 08:13 02/08/25 08:20 02/08/25 08:30 Temperature Pulse Rate 100 103 H 105 H Respiratory Rate 16 18 Blood Pressure Pulse Oximetry 98 Oxygen Delivery Mechanical Ventilation Fraction of Inspired Oxygen 30 02/08/25 09:00 Temperature Pulse Rate 105 H Respiratory Rate 19 Blood Pressure Pulse Oximetry Oxygen Delivery Fraction of Inspired Oxygen Intake/Output Intake/Output: Intake & Output 02/05/25 02/06/25 02/07/25 02/08/25 23:59 23:59 23:59 23:59 Intake Total 1776.0 2204.6 2540.2 1143.9 Output Total 4800 1200 1500 750 Balance -3024.0 1004.6 1040.2 393.9 Meds/Results Medications: Active Medications Generic Name Dose Route Start Last Admin Trade Name Freq PRN Reason Stop Dose Admin Acetaminophen 650 mg 02/03/25 22:36 02/05/25 21:31 Acetaminophen Elixir 325 Mg/10.15 Ml Udc PO 650 mg Q6H PRN Administration Mild Pain (1-3) or Fever Dextrose 12.5 gm 02/01/25 07:23 Dextrose 50% 25 Gm/50 Ml Syringe IV PUSH PRN PRN Hypoglycemia Protocol Docusate Sodium 100 mg 02/01/25 09:40 02/08/25 08:11 Docusate Sodium Liq 100 Mg/10 Ml Udc PO 100 mg Q12HR HAIM Administration Enoxaparin Sodium 40 mg 02/07/25 09:00 02/08/25 08:12 Enoxaparin 40 Mg/0.4 Ml Syringe SUB-Q 40 mg DAILY HAIM Administration Furosemide 40 mg 02/08/25 12:00 Furosemide Inj 40 Mg/4 Ml Vial IV PUSH 02/08/25 12:01 ONCE ONE Furosemide 40 mg 02/08/25 18:00 Furosemide Inj 40 Mg/4 Ml Vial IV PUSH 02/08/25 18:01 ONCE ONE Glucagon 1 mg 02/01/25 07:23 Glucagon For Inj 1 Mg Vial IM PRN PRN Hypoglycemia Protocol Glucose 15 gm 02/01/25 07:23 Glucose Oral Gel 15 Gm Of Glucse In 37.5 Gm Tube PO PRN PRN Hypoglycemia Protocol Dextrose 1,000 mls @ 100 mls/hr 02/01/25 07:23 Dextrose 5% 1,000 Ml IVPB PRN PRN Hypoglycemia Protocol Dexmedetomidine HCl 400 mcg in 100 mls @ 7.543 mls/hr 02/06/25 12:20 02/08/25 09:00 Precedex 400 Mcg/100 Ml IV CONT 0.7 mcg/kg/hr .[id number] HAIM 7.54 mls/hr Titration Protocol 0.7 MCG/KG/HR Propofol 100 mls @ 0 mls/hr 02/06/25 12:35 02/08/25 08:30 Diprivan IV CONT 0 mcg/kg/min .Q0M HAIM 0 mls/hr Titration Protocol Insulin Aspart 3 - 6 units 02/01/25 12:00 02/08/25 06:59 Insulin Aspart (*Bkc) 100 Units/Ml SUB-Q Not Given Q6HR [facility] Protocol Ipratropium Cobb 0.5 mg 02/04/25 14:00 02/08/25 08:12 Ipratropium Br 0.02% Inh Soln 0.5 Mg/2.5 Ml Vial INHALATION 0.5 mg Q6HRT HAIM Administration Levalbuterol HCl 0.63 mg 02/04/25 14:00 02/08/25 08:12 Levalbuterol Neb 1.25 Mg/3 Ml INHALATION 0.63 mg Q6HRT HAIM Administration Metoprolol Tartrate 5 mg 02/04/25 04:26 02/06/25 05:47 Metoprolol Tartrate Inj 5 Mg/5 Ml Vial IV PUSH 5 mg Q6H PRN Administration HR > 130 Metoprolol Tartrate 25 mg 02/04/25 09:00 02/08/25 08:12 Metoprolol Tartrate 25 Mg Tablet PO 25 mg BID HAIM Administration Multi-Ingred Cream/Lotion/Oil/Oint 1 applic 02/01/25 21:00 02/08/25 08:12 Mineral Oil/White Petrolatum Ointment EACH EYE 1 applic Q12HR HAIM Administration Ondansetron HCl 4 mg 01/31/25 16:00 Ondansetron Inj 4 Mg/2 Ml Vial IV PUSH Q4H PRN Nausea Pantoprazole Sodium 40 mg 02/01/25 09:00 02/08/25 08:11 Pantoprazole Sodium Iv 40 Mg Vial IV PUSH 40 mg Q12HR HAIM Administration Polyethylene Glycol 17 gm 02/01/25 09:25 02/08/25 08:12 Polyethylene Glycol 3350 17 Gm Powd.Pack PO Not Given QAM HAIM Potassium Chloride 40 meq 02/08/25 08:30 02/08/25 08:37 Potassium Chloride 20 Meq Packet (For Liquid) FEED TUBE 02/08/25 12:31 40 meq Q4H HAIM Administration Sodium Chloride 10 ml 02/01/25 14:00 02/08/25 07:07 Central Line Flush IV PUSH 10 ml Q8HR HAIM Administration Sodium Chloride 20 ml 02/01/25 06:37 Central Line Flush IV PUSH PRN PRN after blood draws Radiology Results: ITS Impressions Head CT 01/31/25 15:47 Impression: No acute intracranial hemorrhage or suspicious mass effect. Chest/Abdomen/Pelvis CTA 01/31/25 15:49 IMPRESSION: Right middle and lower lobe pneumonia with dense consolidation. Left basilar atelectasis. No pulmonary embolus. No aortic dissection. Oral contrast opacifies the entirety of the colon. Supportive lines in good position. No acute pathology within the remainder of the examination, as detailed above. Chest X-Ray 02/08/25 05:48 IMPRESSION: 1. Airspace opacities in right mid and lower lung zones and left lower lung zone with worsening on the right, consistent with atelectasis versus pneumonia. Labs Labs: Laboratory Results - last 24 hr 02/07/25 02/07/25 02/08/25 12:31 17:30 00:39 WBC RBC Hgb Hct MCV MCH MCHC RDW Plt Count MPV Immature Gran % (Auto) Neut % (Auto) Lymph % (Auto) [place] % (Auto) Eos % (Auto) Baso % (Auto) Lymph # (Auto) [place] # (Auto) Eos # (Auto) Baso # (Auto) Abs Immat Gran (auto) Absolute Neuts (auto) Absolute Nucleated RBC Nucleated RBC % APTT Puncture Site ABG pH ABG pCO2 ABG pO2 ABG PO2/FiO2 Ratio ABG HCO3 ABG O2 Saturation ABG O2 Content ABG Base Excess A-a Gradient Oxyhemoglobin Carboxyhemoglobin Methemoglobin Reduced Hemoglobin Total Hemoglobin O2 Delivery Device O2 Liters/Min Minute Volume Vent Rate Vent Mode FiO2 Tidal Volume PEEP Peak Inspir Pressure Pressure Support Sodium 144 Potassium 3.5 Chloride 104 Carbon Dioxide 33 H Anion Gap 7 BUN 25 H Creatinine 0.60 L Estim Creat Clear Calc 46 Estimated GFR > 60 Glucose 122 H POC Capillary Glucose 106 H 114 H Calcium 9.3 Phosphorus Magnesium Total Bilirubin AST ALT Alkaline Phosphatase Total Protein Albumin 02/08/25 02/08/25 04:39 04:53 WBC 11.0 H RBC 3.00 L Hgb 8.9 L Hct 28.1 L MCV 93.7 MCH 29.7 MCHC 31.7 L RDW 16.3 H Plt Count 249 MPV 11.2 H Immature Gran % (Auto) 0.6 H Neut % (Auto) 75.2 H Lymph % (Auto) 16.8 L [place] % (Auto) 7.3 Eos % (Auto) 0.0 Baso % (Auto) 0.1 L Lymph # (Auto) 1.85 [place] # (Auto) 0.8 H Eos # (Auto) 0.0 Baso # (Auto) 0.0 Abs Immat Gran (auto) 0.07 H Absolute Neuts (auto) 8.3 H Absolute Nucleated RBC 0.000 Nucleated RBC % 0.0 APTT 33.8 Puncture Site Right radial ABG pH 7.431 ABG pCO2 49.5 H ABG pO2 66.9 L ABG PO2/FiO2 Ratio 2.23 ABG HCO3 32.2 H ABG O2 Saturation 93.6 L ABG O2 Content 17.1 ABG Base Excess 6.7 A-a Gradient 88.8 Oxyhemoglobin 92.1 Carboxyhemoglobin 0.5 Methemoglobin 0.0 Reduced Hemoglobin 7.4 H Total Hemoglobin 13.2 O2 Delivery Device Ventilator O2 Liters/Min Not Reportable Minute Volume Not Reportable Vent Rate 15 Vent Mode Cmv FiO2 30 Tidal Volume 310 PEEP 5 Peak Inspir Pressure Not Reportable Pressure Support Not Reportable Sodium 143 Potassium 3.2 L Chloride 101 Carbon Dioxide 32 H Anion Gap 10 BUN 23 H Creatinine 0.54 L Estim Creat Clear Calc 50 Estimated GFR > 60 Glucose 121 H POC Capillary Glucose Calcium 9.4 Phosphorus 4.0 Magnesium 2.3 Total Bilirubin 0.5 AST 51 H ALT 36 H Alkaline Phosphatase 89 Total Protein 7.0 Albumin 3.6 Quality VTE Prophylaxis VTE prophylaxis: mechanical ordered and pharmacologic ordered
--- NOTE | 2025-02-08 10:28 | PM.IMPN ---
Progress Note: A&P Assessment and Plan (1) Acute hypoxic respiratory failure: Code(s): J96.01 - Acute respiratory failure with hypoxia Status: Acute Assessment and Plan: 01/31/2025: Patient presented from [facility] with hypoxia, periods of apnea, and unresponsiveness. She was brought to the ED being bagged, she did not have a gag and was unresponsive in the ED so was intubated upon arrival to the ED. central line was also inserted as she was hypotensive CT scan showed right middle and right lower lobe consolidation. Since then patient has also received decent amount of IV fluids 02/05-accidentally got extubated during turning by the nursing staff. She was intubated 02/06 failed weaning trial. patient kept on going into apnea ventilation. Precedex rate was decreased and patient is now on ASV. 02/07 weaning trial was attempted again. Patient had high RSBI on PSV 03/19. Patient was erratically breathing agitated and had drop in sats. Breathing trial was aborted 02/08 sedation holiday and weaning trial again today -ABGs and chest x-ray reviewed -continue bronchodilators and Mucomyst nebulizer -completed course of Zosyn and azithromycin -Lasix IV will be continued after potassium replacement Vent management per gauntlet pairer. (2) AMS (altered mental status): Qualifiers: Altered mental status type: unspecified Qualified Code(s): R41.82 - Altered mental status, unspecified Code(s): R41.82 - Altered mental status, unspecified Status: Acute Assessment and Plan: Encephalopathy could be related to hypoxia, hypercapnia, pneumonia/infection/hypotension, could be related to medication -head CT negative at the time of presentation -currently intubated -offer send fentanyl and on Precedex -upon review of chart patient appears to be nonverbal at baseline and communicates her needs with gestures. She walks around in the hallways and is able to eat modified diet (3) Pneumonia: Qualifiers: Pneumonia type: due to unspecified organism Laterality: right Lung location: unspecified part of lung Qualified Code(s): J18.9 - Pneumonia, unspecified organism Code(s): J18.9 - Pneumonia, unspecified organism Status: Acute Assessment and Plan: Chest x-ray and CTA chest show right lower lobe consolidation -according the [facility] records: Repeat CT chest showed interval development of new airspace opacities raising concern for aspiration pneumonia. She was transition to Zosyn from cefepime. MBS performed on 01/26 at [facility] which showed no evidence of aspiration despite coughing especially with swallowing. - completed course of Zosyn, azithromycin (01/31) -MRSA screen is negative, vancomycin discontinued (02/01) May be intermittently aspirating. Follow. Plan to repeat swallow study when able (4) Sepsis: Code(s): A41.9 - Sepsis, unspecified organism Status: Acute Assessment and Plan: Patient presented with altered mental status, hypoxia, apnea, pneumonia. -lactic acid was normal -blood pressures was borderline -patient was adequately fluid-resuscitated -status post albumin for volume expansion -off Levophed, -continue to monitor urine output and renal function -Lasix IV will be continued after potassium replacement (5) Cerebral palsy: Code(s): G80.9 - Cerebral palsy, unspecified Status: Acute Assessment and Plan: Patient with cerebral palsy, mild intellectual disability, schizophrenia, nonverbal at baseline according the chart Patient on risperidone, clomipraminne. Resume when able (6) Anemia: Code(s): D64.9 - Anemia, unspecified Status: Acute Assessment and Plan: Patient admitted with a hemoglobin of 10.3 on 01/31 Hemoglobin dropped to 7.3 on 02/01 Stools for occult blood negative. LDH and haptoglobin normal B12/Folate levels normal. Iron and TIBC low c/w anemia of chronic disease. Venofer given. Hgb 8-9 range now -Protonix IV q.12 hours -continue to monitor (7) Electrolyte imbalance: Code(s): E87.8 - Other disorders of electrolyte and fluid balance, not elsewhere classified Status: Acute Assessment and Plan: Increased free water flushes for hypernatremia; Na 143 now Potassium replacement ordered (8) Sinus tachycardia: Code(s): R00.0 - Tachycardia, unspecified Status: Acute Assessment and Plan: 02/04: Patient developed SVT/sinus tachycardia overnight with rates in the 180-200s. Was given IV metoprolol x1 with improvement which brought her rate start to 130s. -could be multifactorial, related to sepsis, anemia, coronary artery disease and being off her metoprolol -TSH normal 03/21: Echo showing normal LV systolic function (EF60-65%) and grade I diastolic dysfunction with mild valve disease and mild pHTN. - mild elevation in troponin level with the levels have trended down - cardiology consult -will continue metoprolol (9) Constipation: Code(s): K59.00 - Constipation, unspecified Status: Acute Assessment and Plan: KUB showed moderate fecal retention on 02/04 Improved with laxatives as patient is now having bowel movements. MiraLax held due to diarrhea Plan DVT prophylaxis: Lovenox Stress ulcer prophylaxis: Protonix IV q.12 hours Nutrition: Tolerating tube feeds, patient on stool softener and MiraLax Code Status: Full -patient is a guardian/bear of the state ([place]) Subjective Date/time seen: 02/08/25 10:28 Interval history: 69yo female with cerebral palsy, nonverbal, osteoporosis, mild intellectual disabilities, dyslipidemia and schizophrenia here with altered mental status and unresponsiveness. Assuming care. Chart reviewed. Patient remains on mechanical ventilation. She has been switched to Precedex this morning for a breathing trial. Was given a dose of Lasix. She has been having diarrhea but not consistent with C diff. MiraLax has been held. She does have increased amounts of oral secretions. Exam Narrative: AF 99.1 121/84 111 25 99% MV Gen - intuabted. appears comfortable with eyes open HEENT -dysconjugate gaze noted. ET tube and OG tube secured. Neck -right IJ triple-lumen catheter secured. Chest -course breath sounds anteriorly CV - RRR S1/S2. Telemetry showing no significant dysrhythmias Abd -soft. Positive bowel sounds. Nondistended. -Arredondo catheter secured draining clear yellow urine Ext - No pedal edema. 2+ DP pulses bilaterally. Neuro -alert. Follows commands intermittently. Psych -remaining calm Skin - Warm and dry Objective Data Vital Signs Vital Signs: Vital Signs - 24 hr 02/07/25 10:47 02/07/25 11:45 02/07/25 12:00 Temperature Pulse Rate 107 H 99 Respiratory Rate 15 Blood Pressure Pulse Oximetry 95 100 Oxygen Delivery Mechanical Ventilation Mechanical Ventilation Fraction of Inspired Oxygen 35 35 02/07/25 12:00 02/07/25 12:00 02/07/25 12:00 Temperature 99.2 F Pulse Rate 100 99 Respiratory Rate 15 Blood Pressure 104/69 Pulse Oximetry 100 Oxygen Delivery Fraction of Inspired Oxygen 35 02/07/25 12:00 02/07/25 12:00 02/07/25 14:00 Temperature Pulse Rate 99 99 97 Respiratory Rate 15 15 Blood Pressure Pulse Oximetry Oxygen Delivery Fraction of Inspired Oxygen 02/07/25 14:00 02/07/25 14:00 02/07/25 14:00 Temperature 99.3 F Pulse Rate 97 97 97 Respiratory Rate 15 15 15 Blood Pressure 105/72 Pulse Oximetry 99 Oxygen Delivery Fraction of Inspired Oxygen 02/07/25 14:25 02/07/25 14:26 02/07/25 16:00 Temperature Pulse Rate 97 98 Respiratory Rate 15 Blood Pressure Pulse Oximetry 99 96 Oxygen Delivery Mechanical Ventilation Mechanical Ventilation Fraction of Inspired Oxygen 35 35 02/07/25 16:00 02/07/25 16:00 02/07/25 16:00 Temperature 99.1 F Pulse Rate 98 99 Respiratory Rate 18 Blood Pressure 107/70 Pulse Oximetry 100 Oxygen Delivery Fraction of Inspired Oxygen 35 02/07/25 16:00 02/07/25 16:00 02/07/25 17:21 Temperature Pulse Rate 98 98 93 Respiratory Rate 18 18 Blood Pressure Pulse Oximetry Oxygen Delivery Fraction of Inspired Oxygen 02/07/25 18:00 02/07/25 18:00 02/07/25 18:00 Temperature Pulse Rate 91 86 86 Respiratory Rate 15 15 Blood Pressure Pulse Oximetry 100 Oxygen Delivery Mechanical Ventilation Fraction of Inspired Oxygen 35 02/07/25 18:00 02/07/25 18:00 02/07/25 18:42 Temperature 99.3 F Pulse Rate 83 88 86 Respiratory Rate 17 15 Blood Pressure 108/75 Pulse Oximetry 97 Oxygen Delivery Fraction of Inspired Oxygen 02/07/25 18:42 02/07/25 19:47 02/07/25 19:47 Temperature Pulse Rate 86 84 84 Respiratory Rate 15 15 Blood Pressure Pulse Oximetry 100 Oxygen Delivery Mechanical Ventilation Fraction of Inspired Oxygen 30 02/07/25 20:00 02/07/25 20:00 02/07/25 20:00 Temperature Pulse Rate 94 94 94 Respiratory Rate 15 15 15 Blood Pressure Pulse Oximetry 98 Oxygen Delivery Mechanical Ventilation Fraction of Inspired Oxygen 35 02/07/25 20:00 02/07/25 20:00 02/07/25 20:00 Temperature 99.1 F Pulse Rate 94 92 Respiratory Rate 20 Blood Pressure 122/77 Pulse Oximetry 100 Oxygen Delivery Fraction of Inspired Oxygen 35 02/07/25 21:30 02/07/25 21:30 02/07/25 22:00 Temperature Pulse Rate 96 96 95 Respiratory Rate 16 16 16 Blood Pressure Pulse Oximetry Oxygen Delivery Fraction of Inspired Oxygen 02/07/25 22:00 02/07/25 22:00 02/07/25 22:00 Temperature 99.8 F H Pulse Rate 95 93 93 Respiratory Rate 16 16 Blood Pressure 110/69 Pulse Oximetry 100 Oxygen Delivery Fraction of Inspired Oxygen 02/07/25 22:39 02/07/25 23:34 02/07/25 23:35 Temperature Pulse Rate 92 92 92 Respiratory Rate 16 Blood Pressure Pulse Oximetry 100 100 Oxygen Delivery Mechanical Ventilation Mechanical Ventilation Fraction of Inspired Oxygen 35 35 02/07/25 23:35 02/08/25 00:00 02/08/25 00:00 Temperature Pulse Rate 90 90 Respiratory Rate 16 16 Blood Pressure Pulse Oximetry Oxygen Delivery Fraction of Inspired Oxygen 35 02/08/25 00:00 02/08/25 01:41 02/08/25 01:41 Temperature 99.5 F Pulse Rate 91 93 89 Respiratory Rate 16 16 Blood Pressure 117/77 Pulse Oximetry 100 100 Oxygen Delivery Mechanical Ventilation Fraction of Inspired Oxygen 35 02/08/25 02:00 02/08/25 02:00 02/08/25 02:00 Temperature 99.3 F Pulse Rate 93 93 91 Respiratory Rate 16 16 Blood Pressure 119/79 Pulse Oximetry 100 Oxygen Delivery Fraction of Inspired Oxygen 02/08/25 02:00 02/08/25 04:00 02/08/25 04:00 Temperature Pulse Rate 91 100 100 Respiratory Rate 16 16 Blood Pressure Pulse Oximetry 100 Oxygen Delivery Mechanical Ventilation Fraction of Inspired Oxygen 35 02/08/25 04:00 02/08/25 04:00 02/08/25 04:00 Temperature 99.5 F Pulse Rate 100 93 Respiratory Rate 17 18 Blood Pressure 111/83 Pulse Oximetry 95 Oxygen Delivery Fraction of Inspired Oxygen 35 02/08/25 04:40 02/08/25 05:30 02/08/25 06:00 Temperature Pulse Rate 88 10 L 88 Respiratory Rate 18 Blood Pressure Pulse Oximetry 98 Oxygen Delivery Mechanical Ventilation Fraction of Inspired Oxygen 35 02/08/25 06:00 02/08/25 07:00 02/08/25 07:18 Temperature 99.1 F Pulse Rate 103 H 101 H 94 Respiratory Rate 16 15 15 Blood Pressure 121/84 Pulse Oximetry 98 Oxygen Delivery Fraction of Inspired Oxygen 02/08/25 07:18 02/08/25 08:00 02/08/25 08:00 Temperature Pulse Rate 94 100 Respiratory Rate 15 Blood Pressure Pulse Oximetry 100 Oxygen Delivery Mechanical Ventilation Fraction of Inspired Oxygen 35 02/08/25 08:00 02/08/25 08:12 02/08/25 08:13 Temperature Pulse Rate 112 H 100 Respiratory Rate 16 Blood Pressure Pulse Oximetry Oxygen Delivery Fraction of Inspired Oxygen 35 02/08/25 08:20 02/08/25 08:30 02/08/25 09:00 Temperature Pulse Rate 103 H 105 H 105 H Respiratory Rate 18 19 Blood Pressure Pulse Oximetry 98 Oxygen Delivery Mechanical Ventilation Fraction of Inspired Oxygen 30 02/08/25 09:55 02/08/25 10:20 02/08/25 10:21 Temperature Pulse Rate 110 H 111 H 111 H Respiratory Rate 20 25 H Blood Pressure Pulse Oximetry 99 Oxygen Delivery Mechanical Ventilation Fraction of Inspired Oxygen 30 Intake/Output Intake/Output: Intake & Output 02/05/25 02/06/25 02/07/25 02/08/25 23:59 23:59 23:59 23:59 Intake Total 1776.0 2204.6 2540.2 1154.0 Output Total 4800 1200 1500 750 Balance -3024.0 1004.6 1040.2 404.0 Meds/Results Medications: Active Medications Generic Name Dose Route Start Last Admin Trade Name Freq PRN Reason Stop Dose Admin Acetaminophen 650 mg 02/03/25 22:36 02/05/25 21:31 Acetaminophen Elixir 325 Mg/10.15 Ml Udc PO 650 mg Q6H PRN Administration Mild Pain (1-3) or Fever Dextrose 12.5 gm 02/01/25 07:23 Dextrose 50% 25 Gm/50 Ml Syringe IV PUSH PRN PRN Hypoglycemia Protocol Enoxaparin Sodium 40 mg 02/07/25 09:00 02/08/25 08:12 Enoxaparin 40 Mg/0.4 Ml Syringe SUB-Q 40 mg DAILY HAIM Administration Furosemide 40 mg 02/08/25 12:00 Furosemide Inj 40 Mg/4 Ml Vial IV PUSH 02/08/25 12:01 ONCE ONE Furosemide 40 mg 02/08/25 18:00 Furosemide Inj 40 Mg/4 Ml Vial IV PUSH 02/08/25 18:01 ONCE ONE Glucagon 1 mg 02/01/25 07:23 Glucagon For Inj 1 Mg Vial IM PRN PRN Hypoglycemia Protocol Glucose 15 gm 02/01/25 07:23 Glucose Oral Gel 15 Gm Of Glucse In 37.5 Gm Tube PO PRN PRN Hypoglycemia Protocol Dextrose 1,000 mls @ 100 mls/hr 02/01/25 07:23 Dextrose 5% 1,000 Ml IVPB PRN PRN Hypoglycemia Protocol Dexmedetomidine HCl 400 mcg in 100 mls @ 7.543 mls/hr 02/06/25 12:20 02/08/25 10:20 Precedex 400 Mcg/100 Ml IV CONT 0.7 mcg/kg/hr .[id number] HAIM 7.54 mls/hr Titration Protocol 0.7 MCG/KG/HR Propofol 100 mls @ 0 mls/hr 02/06/25 12:35 02/08/25 10:21 Diprivan IV CONT 0 mcg/kg/min .Q0M HAIM 0 mls/hr Titration Protocol Insulin Aspart 3 - 6 units 02/01/25 12:00 02/08/25 06:59 Insulin Aspart (*Bkc) 100 Units/Ml SUB-Q Not Given Q6HR [facility] Protocol Ipratropium [place] 0.5 mg 02/04/25 14:00 02/08/25 08:12 Ipratropium Br 0.02% Inh Soln 0.5 Mg/2.5 Ml Vial INHALATION 0.5 mg Q6HRT HAIM Administration Levalbuterol HCl 0.63 mg 02/04/25 14:00 02/08/25 08:12 Levalbuterol Neb 1.25 Mg/3 Ml INHALATION 0.63 mg Q6HRT HAIM Administration Metoprolol Tartrate 5 mg 02/04/25 04:26 02/06/25 05:47 Metoprolol Tartrate Inj 5 Mg/5 Ml Vial IV PUSH 5 mg Q6H PRN Administration HR > 130 Metoprolol Tartrate 25 mg 02/04/25 09:00 02/08/25 08:12 Metoprolol Tartrate 25 Mg Tablet PO 25 mg BID HAIM Administration Multi-Ingred Cream/Lotion/Oil/Oint 1 applic 02/01/25 21:00 02/08/25 08:12 Mineral Oil/White Petrolatum Ointment EACH EYE 1 applic Q12HR HAIM Administration Ondansetron HCl 4 mg 01/31/25 16:00 Ondansetron Inj 4 Mg/2 Ml Vial IV PUSH Q4H PRN Nausea Pantoprazole Sodium 40 mg 02/01/25 09:00 02/08/25 08:11 Pantoprazole Sodium Iv 40 Mg Vial IV PUSH 40 mg Q12HR HAIM Administration Polyethylene Glycol 17 gm 02/01/25 09:25 02/08/25 08:12 Polyethylene Glycol 3350 17 Gm Powd.Pack PO Not Given QAM HAIM Potassium Chloride 40 meq 02/08/25 08:30 02/08/25 08:37 Potassium Chloride 20 Meq Packet (For Liquid) FEED TUBE 02/08/25 12:31 40 meq Q4H HAIM Administration Sodium Chloride 10 ml 02/01/25 14:00 02/08/25 07:07 Central Line Flush IV PUSH 10 ml Q8HR HAIM Administration Sodium Chloride 20 ml 02/01/25 06:37 Central Line Flush IV PUSH PRN PRN after blood draws Radiology Results: ITS Impressions Head CT 01/31/25 15:47 Impression: No acute intracranial hemorrhage or suspicious mass effect. Chest/Abdomen/Pelvis CTA 01/31/25 15:49 IMPRESSION: Right middle and lower lobe pneumonia with dense consolidation. Left basilar atelectasis. No pulmonary embolus. No aortic dissection. Oral contrast opacifies the entirety of the colon. Supportive lines in good position. No acute pathology within the remainder of the examination, as detailed above. Chest X-Ray 02/08/25 05:48 IMPRESSION: 1. Airspace opacities in right mid and lower lung zones and left lower lung zone with worsening on the right, consistent with atelectasis versus pneumonia. Labs Labs: Laboratory Results - last 24 hr 02/07/25 02/07/25 02/08/25 12:31 17:30 00:39 WBC RBC Hgb Hct MCV MCH MCHC RDW Plt Count MPV Immature Gran % (Auto) Neut % (Auto) Lymph % (Auto) [place] % (Auto) Eos % (Auto) Baso % (Auto) Lymph # (Auto) [place] # (Auto) Eos # (Auto) Baso # (Auto) Abs Immat Gran (auto) Absolute Neuts (auto) Absolute Nucleated RBC Nucleated RBC % APTT Puncture Site ABG pH ABG pCO2 ABG pO2 ABG PO2/FiO2 Ratio ABG HCO3 ABG O2 Saturation ABG O2 Content ABG Base Excess A-a Gradient Oxyhemoglobin Carboxyhemoglobin Methemoglobin Reduced Hemoglobin Total Hemoglobin O2 Delivery Device O2 Liters/Min Minute Volume Vent Rate Vent Mode FiO2 Tidal Volume PEEP Peak Inspir Pressure Pressure Support Sodium 144 Potassium 3.5 Chloride 104 Carbon Dioxide 33 H Anion Gap 7 BUN 25 H Creatinine 0.60 L Estim Creat Clear Calc 46 Estimated GFR > 60 Glucose 122 H POC Capillary Glucose 106 H 114 H Calcium 9.3 Phosphorus Magnesium Total Bilirubin AST ALT Alkaline Phosphatase Total Protein Albumin 02/08/25 02/08/25 04:39 04:53 WBC 11.0 H RBC 3.00 L Hgb 8.9 L Hct 28.1 L MCV 93.7 MCH 29.7 MCHC 31.7 L RDW 16.3 H Plt Count 249 MPV 11.2 H Immature Gran % (Auto) 0.6 H Neut % (Auto) 75.2 H Lymph % (Auto) 16.8 L [place] % (Auto) 7.3 Eos % (Auto) 0.0 Baso % (Auto) 0.1 L Lymph # (Auto) 1.85 [place] # (Auto) 0.8 H Eos # (Auto) 0.0 Baso # (Auto) 0.0 Abs Immat Gran (auto) 0.07 H Absolute Neuts (auto) 8.3 H Absolute Nucleated RBC 0.000 Nucleated RBC % 0.0 APTT 33.8 Puncture Site Right radial ABG pH 7.431 ABG pCO2 49.5 H ABG pO2 66.9 L ABG PO2/FiO2 Ratio 2.23 ABG HCO3 32.2 H ABG O2 Saturation 93.6 L ABG O2 Content 17.1 ABG Base Excess 6.7 A-a Gradient 88.8 Oxyhemoglobin 92.1 Carboxyhemoglobin 0.5 Methemoglobin 0.0 Reduced Hemoglobin 7.4 H Total Hemoglobin 13.2 O2 Delivery Device Ventilator O2 Liters/Min Not Reportable Minute Volume Not Reportable Vent Rate 15 Vent Mode Cmv FiO2 30 Tidal Volume 310 PEEP 5 Peak Inspir Pressure Not Reportable Pressure Support Not Reportable Sodium 143 Potassium 3.2 L Chloride 101 Carbon Dioxide 32 H Anion Gap 10 BUN 23 H Creatinine 0.54 L Estim Creat Clear Calc 50 Estimated GFR > 60 Glucose 121 H POC Capillary Glucose Calcium 9.4 Phosphorus 4.0 Magnesium 2.3 Total Bilirubin 0.5 AST 51 H ALT 36 H Alkaline Phosphatase 89 Total Protein 7.0 Albumin 3.6
[2025-02-08] MEDS: dexmedeTOMIDine 400 MCG/100 ML 400 MCG/100 ML BAG 9.7 MCG IV CONT (10:35)
--- NOTE | 2025-02-08 10:42 | PCFNICU ---
ICU Rounding Note: Pt current nutrition is Vital AF 1.2 at 50 ml/hr. Last recorded weight is 39.1 kg, up from 38.8 kg on admit. Bowel Motility: +BM reported 02/08 Labs Reviewed: Glu 121, BUN 23, Cr 0.54, Hct 28.1, Hgb 8.9 Meds Noted:Precedex, Zosyn Skin: WNL Additional Notes: Patient is currently on a breathing trial. Propofol is on hold at this time. Tube feedings have been tolerated of Vital AF 1.2 at 50 ml/hr providing 1320 kcal/82 gm protein/892 ml water. Flush 150 ml q 4 hours. Agree with diet orders. Following daily in ICU rounds. Will monitor weight, labs, skin, diet orders, meds every Wednesday and Wednesday.
[2025-02-08] MEDS: FUROSEMIDE INJ 40 MG/4 ML VIAL IV PUSH ×2 (11:48→17:20)
[2025-02-08 11:57] LABS: Glucose Point of Care 107 mg/dl (65-105)
[2025-02-08 17:30] LABS: Glucose Point of Care 113 mg/dl (65-105)
[2025-02-08 17:55] LABS: Anion Gap 6 mmol/L (4-12); Blood Urea Nitrogen 24 mg/dL (7-17); Calcium 9.5 mg/dL (8.4-10.2); Carbon Dioxide 34 mmol/L (22-30); Chloride 100 mmol/L (98-107); Estimated CRCL calculation 50 ml/min; Estimated Glomerular Filt Rate > 60; Glucose 113 mg/dL (65-110); Potassium 3.7 mmol/L (3.4-5.0); Sodium 140 mmol/L (137-145)
[2025-02-08] MEDS: dexmedeTOMIDine 400 MCG/100 ML 400 MCG/100 ML BAG 11.85 MCG IV CONT (18:23)
[2025-02-09] VITALS (41 sets, daily range): BP systolic 94–128; BP diastolic 59–84; PULSE 70–100; RESP 12–31; TEMP 36.8–37.6; O2SAT 96–100
[2025-02-09 00:01] LABS: Glucose Point of Care 116 mg/dl (65-105)
[2025-02-09] MEDS: LEVALBUTEROL NEB 1.25 MG/3 ML 0.63 MG INHALATION ×4 (02:37→19:45)
[2025-02-09] MEDS: IPRATROPIUM BR 0.02% INH SOLN 0.5 MG/2.5 ML VIAL INHALATION ×4 (02:38→19:45)
[2025-02-09] MEDS: dexmedeTOMIDine 400 MCG/100 ML 400 MCG/100 ML BAG 11.85 MCG IV CONT ×2 (02:45→11:57)
[2025-02-09 05:06] LABS: Alveolar/Arterial O2 Gradient 93.5 mmHg; Base Excess ABG 8.2 mEq/l (+/-2.0); Carboxyhemoglobin 0.3 % THb (0-2.0); Fractional Inspired Oxygen 30 %; HCO3 ABG 32.3 mEq/l (22.0-26.0); Methemoglobin ABG 0.3 %THb (0-1.5); Oxygen Content ABG 13.2 %vol (16.0-22.0); Oxygen Saturation ABG 95.1 % (95.0-100.0); Oxyhemoglobin 93.4 % THb (90.0-100.0); PCO2 ABG 43.2 mmHg (35.0-45.0); PO2 ABG 69.6 mmHg (80.0-100.0); PO2 FiO2 Ratio Arterial Blood 2.32 %; pH ABG 7.492 (7.350-7.450)
[2025-02-09 05:08] LABS: Device VENTILATOR; Modified Allen's Test Pass; Site Drawn LEFT RADIAL
[2025-02-09 05:09] LABS: Arterial Blood Gas PEEP 5 cmH2O; Arterial Blood Gas Tidal Volume 310 ml; Arterial Blood Gas Vent Mode CMV; Arterial Blood Gas Ventilator rate 15 /MIN
[2025-02-09] MEDS: PROPOFOL IV EMULSION 100 ML 4.67 MG IV CONT (06:47)
[2025-02-09] MEDS: CENTRAL LINE FLUSH 10 ML IV PUSH ×3 (06:48→21:36)
[2025-02-09 07:03] LABS: Hematocrit 29.6 % (37.0-47.0); Hemoglobin 9.3 g/dL (12.0-15.0); Mean Corpuscular HGB Conc 31.4 g/dl (32-36); Mean Corpuscular Hemoglobin 29.2 pg (26-34); Mean Corpuscular Volume 92.8 fl (80-100); Mean Platelet Volume 11.4 fl (7.4-10.4); Platelet Count Result 260 k/mm3 (150-375); Red Blood Count 3.19 M/mm3 (4.2-5.4); White Blood Count 10.2 K/mm3 (4.5-10.0)
[2025-02-09 07:14] LABS: Alanine Aminotransferase 55 U/L (6-35); Albumin Level 3.8 g/dL (3.5-5.1); Alkaline Phosphatase 102 U/L (38-126); Anion Gap 10 mmol/L (4-12); Aspartate Amino Transferase 68 U/L (14-36); Bilirubin,Total 0.5 mg/dL (0.2-1.3); Blood Urea Nitrogen 30 mg/dL (7-17); Calcium 9.5 mg/dL (8.4-10.2); Carbon Dioxide 31 mmol/L (22-30); Chloride 96 mmol/L (98-107); Estimated CRCL calculation 54 ml/min; Estimated Glomerular Filt Rate > 60; Glucose 129 mg/dL (65-110); Magnesium 2.2 mg/dL (1.6-2.3); Potassium 3.4 mmol/L (3.4-5.0); Sodium 137 mmol/L (137-145)
--- NOTE | 2025-02-09 08:22 | WPDINTPN ---
Progress Note: A&P Assessment and Plan (1) Acute hypoxic respiratory failure: Code(s): J96.01 - Acute respiratory failure with hypoxia Status: Acute Assessment and Plan: 01/31/2025: Patient presented from [facility] with hypoxia, periods of apnea, and unresponsiveness. She was brought to the ED being bagged, she did not have a gag and was unresponsive in the ED so was intubated upon arrival to the ED. central line was also inserted as she was hypotensive CT scan showed right middle and right lower lobe consolidation. Since then patient has also received decent amount of IV fluids 02/05-accidentally got extubated during turning by the nursing staff. She was intubated 02/06 failed weaning trial. patient kept on going into apnea ventilation. Precedex rate was decreased and patient is now on ASV. 02/07 weaning trial was attempted again. Patient had high RSBI on PSV 03/19. Patient was erratically breathing agitated and had drop in sats. Breathing trial was aborted 02/08 failed weaning trial due to high RSBI 02/09 I attempted a SBT weaning trial this morning. On 03/19 patient respiratory rate was in 40s with tidal volume and 100s. I had to increase the pressure support to 12 to get adequate RSBI even then patient's breathing was at. patient is not a candidate for extubation at this point. She will not be able to use BiPAP considering cerebral palsy and inability to communicate. I will try to continue weaning but I anticipate that if patient does not get extubated then she may need trach for continued ventilatory support -currently on CMV mode of ventilation, peep of 5 and 30 % FiO2 -ABGs and chest x-ray reviewed, ventilator adjusted by decreasing the rate -continue bronchodilators and Mucomyst nebulizer -completed course of Zosyn and azithromycin - she was given Lasix yesterday. Will hold Lasix today (2) AMS (altered mental status): Qualifiers: Altered mental status type: unspecified Qualified Code(s): R41.82 - Altered mental status, unspecified Code(s): R41.82 - Altered mental status, unspecified Status: Acute Assessment and Plan: Encephalopathy could be related to hypoxia, hypercapnia, pneumonia/infection/hypotension, could be related to medication -head CT negative at the time of presentation -currently intubated -offer send fentanyl and on Precedex -upon review of chart patient appears to be nonverbal at baseline and communicates her needs with gestures. She walks around in the hallways and is able to eat modified diet (3) Pneumonia: Qualifiers: Pneumonia type: due to unspecified organism Laterality: right Lung location: unspecified part of lung Qualified Code(s): J18.9 - Pneumonia, unspecified organism Code(s): J18.9 - Pneumonia, unspecified organism Status: Acute Assessment and Plan: Chest x-ray and CTA chest show right lower lobe consolidation -according the [facility] records: Repeat CT chest showed interval development of new airspace opacities raising concern for aspiration pneumonia. She was transition to Zosyn from cefepime. MBS performed on 01/26 at [facility] which showed no evidence of aspiration despite coughing especially with swallowing. - completed course of Zosyn, azithromycin (01/31) -MRSA screen is negative, vancomycin discontinued (02/01) (4) Sepsis: Code(s): A41.9 - Sepsis, unspecified organism Status: Acute Assessment and Plan: Patient presented with altered mental status, hypoxia, apnea, pneumonia. -lactic acid was normal -blood pressures are borderline -patient was adequately fluid-resuscitated -status post albumin for volume expansion -off Levophed, -continue to monitor urine output and renal function - she has been receiving Lasix as needed depending on her volume status (5) Cerebral palsy: Code(s): G80.9 - Cerebral palsy, unspecified Status: Acute Assessment and Plan: Patient with cerebral palsy, mild intellectual disability, schizophrenia, nonverbal at baseline according the chart -patient on risperidone, will restart prior to extubation as she is currently sedated and intubated (6) Anemia: Code(s): D64.9 - Anemia, unspecified Status: Acute Assessment and Plan: Patient admitted with a hemoglobin of 10.3 on 01/31 -02/01: Hemoglobin dropped to 7.7, a repeat CBC was done which showed a hemoglobin of 7.3 -will check stools for occult blood, -folic acid and vitamin B12 level within normal limits -low iron levels, low TIBC, will give Venofer -LDH is normal, haptoglobin is pending -Protonix IV q.12 hours -continue to monitor (7) Electrolyte imbalance: Code(s): E87.8 - Other disorders of electrolyte and fluid balance, not elsewhere classified Status: Acute Assessment and Plan: decrease free water flush to 100 mL Potassium replacement ordered (8) Sinus tachycardia: Code(s): R00.0 - Tachycardia, unspecified Status: Acute Assessment and Plan: 02/04: Patient developed SVT/sinus tachycardia overnight with rates in the 180-200s. Was given IV metoprolol x1 with improvement which brought her rate start to 130s. -could be multifactorial, related to sepsis, anemia, coronary artery disease -TSH normal -will continue metoprolol -currently sinus tachycardia monitor - mild elevation in troponin level with the levels have trended down -cardiology consult 02/02/2025: Echocardiogram Summary 1. Complete two-dimensional, color flow and Doppler transthoracic echocardiogram is performed. 2. Left ventricular chamber dimension is normal. 3. Left ventricular systolic function is normal, estimated at 60-65%. 4. The left ventricular diastolic function is grade I diastolic dysfunction. 5. E/e' 7 is not elevated. 6. There is mild aortic valve sclerosis. 7. There is trace tricuspid valve regurgitation. 8. Mild pulmonary hypertension, estimated pulmonary arterial systolic pressure is 41 mmHg. (9) Constipation: Code(s): K59.00 - Constipation, unspecified Status: Acute Assessment and Plan: 02/04: KUB showed moderate fecal retention -improved with laxatives as patient is now having bowel movements. 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 This critical care time included obtaining a history; examining the patient; pulse oximetry; ordering and review of studies; arranging urgent treatment with development of a management plan; evaluation of patient's response to treatment; frequent reassessment; and discussions with other providers. It was exclusive of separately billable procedures and treating other patients and teaching time. Please see Assessment and Plan section and the rest of the note for further information on patient assessment and treatment This dictation may have been done utilizing a voice recognition system. Attempts have been made to correct errors. However, there may be uncorrected grammatical, spelling, and recognitions errors present. Subjective Date/time seen: 02/09/25 Overnight events reviewed. Afebrile Continues to be on mechanical ventilation 30% FiO2 tolerating tube feeds Continues to be sedated with propofol and Precedex Vitals acceptable Interval history: Reason for consult: Acute respiratory failure, pneumonia, altered mental status, unresponsiveness, anemia Review of Systems Review of Systems: ROS unobtainable: Yes unobtainable due to endotracheal tube, unobtainable due to medical condition and unobtainable due to mental status Exam Narrative: General: Petite female/malnourished, in no acute distress HEENT:? Pupils are pinpoint, sluggish, ETT in place Neck:? Supple Respiratory:? Coarse breath sounds bilaterally, rales on right base, no wheezing, adequate air entry otherwise Cardiac:? S1-S2 normal, regular rate and rhythm Abdomen:? Soft, nontender, nondistended, hypoactive bowel sounds Extremities:? Trace edema, bilateral pedal pulses are palpable Neuro:? Intubated, sedated, eyes are open and she moves all 4 extremities, tries to pull lines and try to get out of bed. Nodes her head on calling her name but does not follow any command. She has a decent cough but she does not follow any commands. On pressure support ventilation trial she goes into apnea ventilation intermittent Skin:? No skin lesions noted Psych:? Unable to assess at this time Objective Data Vital Signs Vital Signs: Vital Signs - 24 hr 02/08/25 08:30 02/08/25 09:00 02/08/25 09:55 Temperature Pulse Rate 105 H 105 H 110 H Respiratory Rate 18 19 Blood Pressure Pulse Oximetry 99 Oxygen Delivery Mechanical Ventilation Fraction of Inspired Oxygen 30 02/08/25 10:00 02/08/25 10:00 02/08/25 10:20 Temperature 37.8 C H Pulse Rate 107 H 107 H 111 H Respiratory Rate 35 H 20 Blood Pressure 134/98 H Pulse Oximetry 99 Oxygen Delivery Fraction of Inspired Oxygen 02/08/25 10:21 02/08/25 10:35 02/08/25 10:35 Temperature Pulse Rate 111 H 105 H 105 H Respiratory Rate 25 H 26 H 26 H Blood Pressure Pulse Oximetry Oxygen Delivery Fraction of Inspired Oxygen 02/08/25 11:05 02/08/25 11:15 02/08/25 11:41 Temperature Pulse Rate 110 H 94 99 Respiratory Rate 23 H 33 H Blood Pressure Pulse Oximetry 98 Oxygen Delivery Mechanical Ventilation Fraction of Inspired Oxygen 30 02/08/25 12:00 02/08/25 12:00 02/08/25 12:00 Temperature Pulse Rate 95 Respiratory Rate Blood Pressure Pulse Oximetry 100 Oxygen Delivery Mechanical Ventilation Fraction of Inspired Oxygen 35 35 02/08/25 12:03 02/08/25 12:15 02/08/25 12:16 Temperature 37.4 C Pulse Rate 95 95 95 Respiratory Rate 21 H 16 25 H Blood Pressure 122/85 Pulse Oximetry 100 Oxygen Delivery Fraction of Inspired Oxygen 02/08/25 14:00 02/08/25 14:00 02/08/25 14:07 Temperature 37.7 C H Pulse Rate 95 95 95 Respiratory Rate 15 15 Blood Pressure 103/71 Pulse Oximetry 97 Oxygen Delivery Fraction of Inspired Oxygen 02/08/25 14:08 02/08/25 14:45 02/08/25 14:49 Temperature Pulse Rate 95 96 97 Respiratory Rate 15 15 Blood Pressure Pulse Oximetry 96 Oxygen Delivery Mechanical Ventilation Fraction of Inspired Oxygen 30 02/08/25 14:53 02/08/25 16:00 02/08/25 16:00 Temperature Pulse Rate 100 99 99 Respiratory Rate 20 25 H 25 H Blood Pressure Pulse Oximetry Oxygen Delivery Fraction of Inspired Oxygen 02/08/25 16:00 02/08/25 16:00 02/08/25 16:00 Temperature 37.6 C H Pulse Rate 94 Respiratory Rate 15 Blood Pressure 106/76 Pulse Oximetry 96 96 Oxygen Delivery Mechanical Ventilation Fraction of Inspired Oxygen 30 30 02/08/25 16:00 02/08/25 16:58 02/08/25 17:20 Temperature Pulse Rate 96 95 94 Respiratory Rate Blood Pressure Pulse Oximetry 98 Oxygen Delivery Mechanical Ventilation Fraction of Inspired Oxygen 30 02/08/25 17:21 02/08/25 18:00 02/08/25 18:00 Temperature 37.7 C H Pulse Rate 95 82 84 Respiratory Rate 17 15 Blood Pressure 106/69 Pulse Oximetry 94 Oxygen Delivery Fraction of Inspired Oxygen 02/08/25 18:00 02/08/25 18:00 02/08/25 18:23 Temperature Pulse Rate 82 82 82 Respiratory Rate 15 15 15 Blood Pressure Pulse Oximetry Oxygen Delivery Fraction of Inspired Oxygen 02/08/25 18:23 02/08/25 20:00 02/08/25 20:00 Temperature 37.7 C H Pulse Rate 82 84 84 Respiratory Rate 15 15 18 Blood Pressure 100/68 Pulse Oximetry 98 Oxygen Delivery Fraction of Inspired Oxygen 02/08/25 20:00 02/08/25 20:00 02/08/25 20:00 Temperature Pulse Rate 84 89 Respiratory Rate 18 20 Blood Pressure Pulse Oximetry 98 Oxygen Delivery Mechanical Ventilation Fraction of Inspired Oxygen 30 30 02/08/25 20:00 02/08/25 20:11 02/08/25 20:19 Temperature Pulse Rate 82 83 83 Respiratory Rate 15 Blood Pressure Pulse Oximetry 98 Oxygen Delivery Mechanical Ventilation Fraction of Inspired Oxygen 30 02/08/25 20:26 02/08/25 22:00 02/08/25 22:00 Temperature 37.5 C Pulse Rate 83 84 81 Respiratory Rate 15 20 18 Blood Pressure 91/65 L Pulse Oximetry 99 Oxygen Delivery Fraction of Inspired Oxygen 02/08/25 22:00 02/08/25 22:00 02/08/25 23:06 Temperature Pulse Rate 81 82 86 Respiratory Rate 15 Blood Pressure Pulse Oximetry 98 Oxygen Delivery Mechanical Ventilation Fraction of Inspired Oxygen 30 02/09/25 00:00 02/09/25 00:00 02/09/25 00:00 Temperature 37.6 C Pulse Rate 89 89 Respiratory Rate 20 20 Blood Pressure 107/73 Pulse Oximetry 98 98 Oxygen Delivery Mechanical Ventilation Fraction of Inspired Oxygen 30 30 02/09/25 00:00 02/09/25 00:00 02/09/25 00:00 Temperature Pulse Rate 87 87 70 Respiratory Rate 17 18 Blood Pressure Pulse Oximetry Oxygen Delivery Fraction of Inspired Oxygen 02/09/25 01:55 02/09/25 01:58 02/09/25 02:00 Temperature 37.1 C Pulse Rate 95 94 93 Respiratory Rate 18 18 20 Blood Pressure 128/70 Pulse Oximetry 99 Oxygen Delivery Fraction of Inspired Oxygen 02/09/25 02:00 02/09/25 02:38 02/09/25 02:43 Temperature Pulse Rate 84 95 92 Respiratory Rate 15 Blood Pressure Pulse Oximetry 99 Oxygen Delivery Mechanical Ventilation Fraction of Inspired Oxygen 30 02/09/25 02:45 02/09/25 02:45 02/09/25 02:48 Temperature Pulse Rate 81 81 93 Respiratory Rate 18 18 18 Blood Pressure Pulse Oximetry Oxygen Delivery Fraction of Inspired Oxygen 02/09/25 04:00 02/09/25 04:00 02/09/25 04:00 Temperature 37.6 C Pulse Rate 91 82 Respiratory Rate 20 16 Blood Pressure 101/67 Pulse Oximetry 97 Oxygen Delivery Fraction of Inspired Oxygen 30 02/09/25 04:00 02/09/25 04:00 02/09/25 04:54 Temperature Pulse Rate 89 76 82 Respiratory Rate 20 Blood Pressure Pulse Oximetry 98 99 Oxygen Delivery Mechanical Ventilation Mechanical Ventilation Fraction of Inspired Oxygen 30 30 02/09/25 05:00 02/09/25 06:00 02/09/25 06:00 Temperature 37.3 C Pulse Rate 82 80 72 Respiratory Rate 16 20 Blood Pressure 103/71 Pulse Oximetry 98 Oxygen Delivery Fraction of Inspired Oxygen 02/09/25 06:46 02/09/25 06:47 02/09/25 06:47 Temperature Pulse Rate 81 81 81 Respiratory Rate 15 15 15 Blood Pressure Pulse Oximetry Oxygen Delivery Fraction of Inspired Oxygen 02/09/25 08:00 02/09/25 08:08 02/09/25 08:17 Temperature 37.0 C Pulse Rate 80 100 96 Respiratory Rate 17 24 H Blood Pressure 99/66 L Pulse Oximetry 98 96 Oxygen Delivery Mechanical Ventilation Fraction of Inspired Oxygen Intake/Output Intake/Output: Intake & Output 02/06/25 02/07/25 02/08/25 02/09/25 23:59 23:59 23:59 23:59 Intake Total 2204.6 2540.2 2569.7 144.9 Output Total 1200 1500 2800 800 Balance 1004.6 1040.2 -230.3 -655.1 Meds/Results Medications: Active Medications Generic Name Dose Route Start Last Admin Trade Name Freq PRN Reason Stop Dose Admin Acetaminophen 650 mg 02/03/25 22:36 02/05/25 21:31 Acetaminophen Elixir 325 Mg/10.15 Ml Udc PO 650 mg Q6H PRN Administration Mild Pain (1-3) or Fever Dextrose 12.5 gm 02/01/25 07:23 Dextrose 50% 25 Gm/50 Ml Syringe IV PUSH PRN PRN Hypoglycemia Protocol Enoxaparin Sodium 40 mg 02/07/25 09:00 02/08/25 08:12 Enoxaparin 40 Mg/0.4 Ml Syringe SUB-Q 40 mg DAILY HAIM Administration Glucagon 1 mg 02/01/25 07:23 Glucagon For Inj 1 Mg Vial IM PRN PRN Hypoglycemia Protocol Glucose 15 gm 02/01/25 07:23 Glucose Oral Gel 15 Gm Of Glucse In 37.5 Gm Tube PO PRN PRN Hypoglycemia Protocol Dextrose 1,000 mls @ 100 mls/hr 02/01/25 07:23 Dextrose 5% 1,000 Ml IVPB PRN PRN Hypoglycemia Protocol Dexmedetomidine HCl 400 mcg in 100 mls @ 11.853 mls/hr 02/06/25 12:20 02/09/25 06:46 Precedex 400 Mcg/100 Ml IV CONT 1.1 mcg/kg/hr .Q8H27M HAIM 11.85 mls/hr Titration Protocol 1.1 MCG/KG/HR Propofol 100 mls @ 2.334 mls/hr 02/06/25 12:35 02/09/25 06:47 Diprivan IV CONT 20 mcg/kg/min .[id number] HAIM 4.67 mls/hr Administration Protocol 10 MCG/KG/MIN Insulin Aspart 3 - 6 units 02/01/25 12:00 02/09/25 06:48 Insulin Aspart (*Bkc) 100 Units/Ml SUB-Q Not Given Q6HR [facility] Protocol Ipratropium [place] 0.5 mg 02/04/25 14:00 02/09/25 08:16 Ipratropium Br 0.02% Inh Soln 0.5 Mg/2.5 Ml Vial INHALATION 0.5 mg Q6HRT HAIM Administration Levalbuterol HCl 0.63 mg 02/04/25 14:00 02/09/25 08:16 Levalbuterol Neb 1.25 Mg/3 Ml INHALATION 0.63 mg Q6HRT HAIM Administration Metoprolol Tartrate 5 mg 02/04/25 04:26 02/06/25 05:47 Metoprolol Tartrate Inj 5 Mg/5 Ml Vial IV PUSH 5 mg Q6H PRN Administration HR > 130 Metoprolol Tartrate 25 mg 02/04/25 09:00 02/08/25 17:20 Metoprolol Tartrate 25 Mg Tablet PO 25 mg BID HAIM Administration Multi-Ingred Cream/Lotion/Oil/Oint 1 applic 02/01/25 21:00 02/08/25 22:22 Mineral Oil/White Petrolatum Ointment EACH EYE 1 applic Q12HR HAIM Administration Ondansetron HCl 4 mg 01/31/25 16:00 Ondansetron Inj 4 Mg/2 Ml Vial IV PUSH Q4H PRN Nausea Pantoprazole Sodium 40 mg 02/01/25 09:00 02/08/25 22:22 Pantoprazole Sodium Iv 40 Mg Vial IV PUSH 40 mg Q12HR HAIM Administration Polyethylene Glycol 17 gm 02/08/25 10:41 Polyethylene Glycol 3350 17 Gm Powd.Pack PO QAM PRN constipation Sodium Chloride 10 ml 02/01/25 14:00 02/09/25 06:48 Central Line Flush IV PUSH 10 ml Q8HR HAIM Administration Sodium Chloride 20 ml 02/01/25 06:37 Central Line Flush IV PUSH PRN PRN after blood draws Radiology Results: ITS Impressions Head CT 01/31/25 15:47 Impression: No acute intracranial hemorrhage or suspicious mass effect. Chest/Abdomen/Pelvis CTA 01/31/25 15:49 IMPRESSION: Right middle and lower lobe pneumonia with dense consolidation. Left basilar atelectasis. No pulmonary embolus. No aortic dissection. Oral contrast opacifies the entirety of the colon. Supportive lines in good position. No acute pathology within the remainder of the examination, as detailed above. Chest X-Ray 02/09/25 05:38 IMPRESSION: 1. Stable airspace opacities in right mid and lower lung zones, consistent with atelectasis versus pneumonia. Labs Labs: Laboratory Results - last 24 hr 02/08/25 02/08/25 02/08/25 11:47 17:26 17:35 WBC RBC Hgb Hct MCV MCH MCHC RDW Plt Count MPV Puncture Site ABG pH ABG pCO2 ABG pO2 ABG PO2/FiO2 Ratio ABG HCO3 ABG O2 Saturation ABG O2 Content ABG Base Excess A-a Gradient Oxyhemoglobin Carboxyhemoglobin Methemoglobin Reduced Hemoglobin Total Hemoglobin O2 Delivery Device O2 Liters/Min Minute Volume Vent Rate Vent Mode FiO2 Tidal Volume PEEP Peak Inspir Pressure Pressure Support Sodium 140 Potassium 3.7 Chloride 100 Carbon Dioxide 34 H Anion Gap 6 BUN 24 H Creatinine 0.55 L Estim Creat Clear Calc 50 Estimated GFR > 60 Glucose 113 H POC Capillary Glucose 107 H 113 H Calcium 9.5 Magnesium Total Bilirubin AST ALT Alkaline Phosphatase Total Protein Albumin 02/08/25 02/09/25 02/09/25 23:54 04:50 06:53 WBC 10.2 H RBC 3.19 L Hgb 9.3 L Hct 29.6 L MCV 92.8 MCH 29.2 MCHC 31.4 L RDW 16.0 H Plt Count 260 MPV 11.4 H Puncture Site Left radial ABG pH 7.492 H ABG pCO2 43.2 ABG pO2 69.6 L ABG PO2/FiO2 Ratio 2.32 ABG HCO3 32.3 H ABG O2 Saturation 95.1 ABG O2 Content 13.2 L ABG Base Excess 8.2 A-a Gradient 93.5 Oxyhemoglobin 93.4 Carboxyhemoglobin 0.3 Methemoglobin 0.3 Reduced Hemoglobin 6.0 H Total Hemoglobin 10.0 L O2 Delivery Device Ventilator O2 Liters/Min Not Reportable Minute Volume Not Reportable Vent Rate 15 Vent Mode Cmv FiO2 30 Tidal Volume 310 PEEP 5 Peak Inspir Pressure Not Reportable Pressure Support Not Reportable Sodium 137 Potassium 3.4 Chloride 96 L Carbon Dioxide 31 H Anion Gap 10 BUN 30 H Creatinine 0.50 L Estim Creat Clear Calc 54 Estimated GFR > 60 Glucose 129 H POC Capillary Glucose 116 H Calcium 9.5 Magnesium 2.2 Total Bilirubin 0.5 AST 68 H ALT 55 H Alkaline Phosphatase 102 Total Protein 8.0 Albumin 3.8 Quality VTE Prophylaxis VTE prophylaxis: mechanical ordered and pharmacologic ordered
[2025-02-09] MEDS: METOPROLOL TARTRATE 25 MG TABLET PO ×2 (08:45→18:00)
[2025-02-09] MEDS: PANTOPRAZOLE SODIUM IV 40 MG VIAL IV PUSH ×2 (08:45→21:36)
[2025-02-09] MEDS: POTASSIUM CHLORIDE 20 MEQ PACKET (FOR LIQUID) 40 MEQ FEED TUBE (08:46)
[2025-02-09] MEDS: ENOXAPARIN 40 MG/0.4 ML SYRINGE SUB-Q (08:46)
[2025-02-09] MEDS: MINERAL OIL/WHITE PETROLATUM OINTMENT 1 APPLIC EACH EYE ×2 (08:57→21:36)
--- NOTE | 2025-02-09 11:08 | PCNFU ---
Nutrition Follow-Up Complete: Inadequate Oral Intake as related to mechanical ventilation as evidenced by NPO. Meet estimated nutritional needs. - Goal is being met with tube feeding. Goal: Pt current nutrition is Tube feeding: Vital AF 1.2 @ goal rate 50 ml/h with flushes 100 ml q 4 hours. Nutrition recommendation: No new nutrition recommendations. Continue current tube feeding orders Last recorded weight is 39.2 kg. Bowel Motility: +1 BM 02/09/25 Labs Reviewed: Hgb 9.3, Hct 29.6, BUN 30, Cre 0.50, Glu 129 Meds Noted: Propofol @ 5.84 ml/h=154 kcal. Precedex Skin: WNL Additional Notes: Continues on vent day 9. Unable to wean and will need trach/PEG. Sedation with propofol, precedex. Vital AF 1.2 @ goal rate 50 ml/h provides 1320 kcal, 83 g protein, 892 ml free water. Meeting estimated needs @ 34 kcal/kg and 2.1 g protein/kg. Adequate for needs. Continue with current orders Will monitor weight, labs, skin, diet orders, meds every Wednesday and Wednesday
[2025-02-09 11:59] LABS: Glucose Point of Care 112 mg/dl (65-105)
--- NOTE | 2025-02-09 13:06 | PM.IMPN ---
Progress Note: A&P Assessment and Plan (1) Acute hypoxic respiratory failure: Code(s): J96.01 - Acute respiratory failure with hypoxia Status: Acute Assessment and Plan: Patient presented on 01/31 from [facility] with hypoxia, periods of apnea, and unresponsiveness. She was brought to the ED being bagged, she did not have a gag and was unresponsive in the ED so was intubated upon arrival to the ED. central line was also inserted as she was hypotensive CT scan showed right middle and right lower lobe consolidation. Patient was fluid resuscitated 02/05-accidentally got extubated during turning by the nursing staff. She was re-intubated Patient has failed multiple weaning trials -ABGs and chest x-ray reviewed -continue bronchodilators and Mucomyst nebulizer -completed course of abx (last dose on 02/07) -Lasix IV prn Vent management per fish conservationist. (2) AMS (altered mental status): Qualifiers: Altered mental status type: unspecified Qualified Code(s): R41.82 - Altered mental status, unspecified Code(s): R41.82 - Altered mental status, unspecified Status: Acute Assessment and Plan: Encephalopathy could be related to hypoxia, hypercapnia, pneumonia/infection/hypotension, could be related to medication. Baseline function: nonverbal and communicates her needs with gestures. She walks in hallways and is able to eat modified diet Head CT negative at the time of presentation Remains intubated Follow (3) Pneumonia: Qualifiers: Laterality: right Lung location: unspecified part of lung Pneumonia type: due to unspecified organism Qualified Code(s): J18.9 - Pneumonia, unspecified organism Code(s): J18.9 - Pneumonia, unspecified organism Status: Acute Assessment and Plan: Chest x-ray and CTA chest show right lower lobe consolidation -according the [facility] records: Repeat CT chest showed interval development of new airspace opacities raising concern for aspiration pneumonia. She was transition to Zosyn from cefepime. MBS performed on 01/[address] [facility] which showed no evidence of aspiration despite coughing especially with swallowing. MRSA screen is negative, vancomycin discontinued (02/01) Completed course of Zosyn, azithromycin (last dose 02/07) May be intermittently aspirating. Follow. Plan to repeat swallow study when able (4) Sepsis: Code(s): A41.9 - Sepsis, unspecified organism Status: Acute Assessment and Plan: Patient presented with altered mental status, hypoxia, apnea, pneumonia. -lactic acid was normal -blood pressures was borderline -patient was adequately fluid-resuscitated -status post albumin for volume expansion -off Levophed, -continue to monitor urine output and renal function -Lasix IV prn (5) Cerebral palsy: Code(s): G80.9 - Cerebral palsy, unspecified Status: Acute Assessment and Plan: Patient with cerebral palsy, mild intellectual disability, schizophrenia, nonverbal at baseline according the chart Patient on risperidone, clomipraminne. Resume when able (6) Anemia: Code(s): D64.9 - Anemia, unspecified Status: Acute Assessment and Plan: Patient admitted with a hemoglobin of 10.3 on 01/31 Hemoglobin dropped to 7.3 on 02/01 Stools for occult blood negative. LDH and haptoglobin normal B12/Folate levels normal. Iron and TIBC low c/w anemia of chronic disease. Venofer given. Hgb 8-9 range now -Protonix IV q.12 hours -continue to monitor (7) Electrolyte imbalance: Code(s): E87.8 - Other disorders of electrolyte and fluid balance, not elsewhere classified Status: Acute Assessment and Plan: Free water flushes for hypernatremia; Na bettet now Potassium replacement ordered (8) Sinus tachycardia: Code(s): R00.0 - Tachycardia, unspecified Status: Acute Assessment and Plan: 02/04: Patient developed SVT/sinus tachycardia overnight with rates in the 180-200s. Was given IV metoprolol x1 with improvement which brought her rate start to 130s. -could be multifactorial, related to sepsis, anemia, coronary artery disease and being off her metoprolol -TSH normal 02/02: Echo showing normal LV systolic function (EF60-65%) and grade I diastolic dysfunction with mild valve disease and mild pHTN. - mild elevation in troponin level with the levels have trended down - cardiology consult -will continue metoprolol (9) Constipation: Code(s): K59.00 - Constipation, unspecified Status: Acute Assessment and Plan: KUB showed moderate fecal retention on 02/04 Improved with laxatives as patient is now having bowel movements. MiraLax held due to diarrhea Plan DVT prophylaxis: Lovenox Stress ulcer prophylaxis: Protonix IV q.12 hours Nutrition: Tolerating tube feeds Code Status: Full -patient is a guardian/bear of the state ([place]) Subjective Date/time seen: 02/09/25 13:06 Interval history: 69yo female with cerebral palsy, nonverbal, osteoporosis, mild intellectual disabilities, dyslipidemia and schizophrenia here with altered mental status and unresponsiveness. Patient remains on mechanical ventilation. She has failed multiple weaning trials. She remains on Precedex. Secretions better. Tolerating TF. Review of Systems Review of Systems: ROS unobtainable: Yes unobtainable due to endotracheal tube Exam Narrative: AF 99.5 94/59 79 16 98% MV Gen - intubated. appears comfortable with eyes open HEENT -dysconjugate gaze noted. ET tube and OG tube secured. Neck -right IJ triple-lumen catheter secured. Chest - breath sounds less coarse CV - RRR S1/S2. Telemetry showing no significant dysrhythmias Abd -soft. Positive bowel sounds. Nondistended. -Arredondo catheter secured draining clear yellow urine Ext - No pedal edema. 2+ DP pulses bilaterally. Neuro -alert. Does not follow commands. Psych -remaining calm Skin - Warm and dry Objective Data Vital Signs Vital Signs: Vital Signs - 24 hr 02/08/25 14:00 02/08/25 14:00 02/08/25 14:07 Temperature 99.9 F H Pulse Rate 95 95 95 Respiratory Rate 15 15 Blood Pressure 103/71 Pulse Oximetry 97 Oxygen Delivery Fraction of Inspired Oxygen 02/08/25 14:08 02/08/25 14:45 02/08/25 14:49 Temperature Pulse Rate 95 96 97 Respiratory Rate 15 15 Blood Pressure Pulse Oximetry 96 Oxygen Delivery Mechanical Ventilation Fraction of Inspired Oxygen 30 02/08/25 14:53 02/08/25 16:00 02/08/25 16:00 Temperature Pulse Rate 100 99 99 Respiratory Rate 20 25 H 25 H Blood Pressure Pulse Oximetry Oxygen Delivery Fraction of Inspired Oxygen 02/08/25 16:00 02/08/25 16:00 02/08/25 16:00 Temperature 99.7 F H Pulse Rate 94 Respiratory Rate 15 Blood Pressure 106/76 Pulse Oximetry 96 96 Oxygen Delivery Mechanical Ventilation Fraction of Inspired Oxygen 30 30 02/08/25 16:00 02/08/25 16:58 02/08/25 17:20 Temperature Pulse Rate 96 95 94 Respiratory Rate Blood Pressure Pulse Oximetry 98 Oxygen Delivery Mechanical Ventilation Fraction of Inspired Oxygen 30 02/08/25 17:21 02/08/25 18:00 02/08/25 18:00 Temperature 99.9 F H Pulse Rate 95 82 84 Respiratory Rate 17 15 Blood Pressure 106/69 Pulse Oximetry 94 Oxygen Delivery Fraction of Inspired Oxygen 02/08/25 18:00 02/08/25 18:00 02/08/25 18:23 Temperature Pulse Rate 82 82 82 Respiratory Rate 15 15 15 Blood Pressure Pulse Oximetry Oxygen Delivery Fraction of Inspired Oxygen 02/08/25 18:23 02/08/25 20:00 02/08/25 20:00 Temperature 99.8 F H Pulse Rate 82 84 84 Respiratory Rate 15 15 18 Blood Pressure 100/68 Pulse Oximetry 98 Oxygen Delivery Fraction of Inspired Oxygen 02/08/25 20:00 02/08/25 20:00 02/08/25 20:00 Temperature Pulse Rate 84 89 Respiratory Rate 18 20 Blood Pressure Pulse Oximetry 98 Oxygen Delivery Mechanical Ventilation Fraction of Inspired Oxygen 30 30 02/08/25 20:00 02/08/25 20:11 02/08/25 20:19 Temperature Pulse Rate 82 83 83 Respiratory Rate 15 Blood Pressure Pulse Oximetry 98 Oxygen Delivery Mechanical Ventilation Fraction of Inspired Oxygen 30 02/08/25 20:26 02/08/25 22:00 02/08/25 22:00 Temperature 99.5 F Pulse Rate 83 84 81 Respiratory Rate 15 20 18 Blood Pressure 91/65 L Pulse Oximetry 99 Oxygen Delivery Fraction of Inspired Oxygen 02/08/25 22:00 02/08/25 22:00 02/08/25 23:06 Temperature Pulse Rate 81 82 86 Respiratory Rate 15 Blood Pressure Pulse Oximetry 98 Oxygen Delivery Mechanical Ventilation Fraction of Inspired Oxygen 30 02/09/25 00:00 02/09/25 00:00 02/09/25 00:00 Temperature 99.6 F Pulse Rate 89 89 Respiratory Rate 20 20 Blood Pressure 107/73 Pulse Oximetry 98 98 Oxygen Delivery Mechanical Ventilation Fraction of Inspired Oxygen 30 30 02/09/25 00:00 02/09/25 00:00 02/09/25 00:00 Temperature Pulse Rate 87 87 70 Respiratory Rate 17 18 Blood Pressure Pulse Oximetry Oxygen Delivery Fraction of Inspired Oxygen 02/09/25 01:55 02/09/25 01:58 02/09/25 02:00 Temperature 98.7 F Pulse Rate 95 94 93 Respiratory Rate 18 18 20 Blood Pressure 128/70 Pulse Oximetry 99 Oxygen Delivery Fraction of Inspired Oxygen 02/09/25 02:00 02/09/25 02:38 02/09/25 02:43 Temperature Pulse Rate 84 95 92 Respiratory Rate 15 Blood Pressure Pulse Oximetry 99 Oxygen Delivery Mechanical Ventilation Fraction of Inspired Oxygen 30 02/09/25 02:45 02/09/25 02:45 02/09/25 02:48 Temperature Pulse Rate 81 81 93 Respiratory Rate 18 18 18 Blood Pressure Pulse Oximetry Oxygen Delivery Fraction of Inspired Oxygen 02/09/25 04:00 02/09/25 04:00 02/09/25 04:00 Temperature 99.6 F Pulse Rate 91 82 Respiratory Rate 20 16 Blood Pressure 101/67 Pulse Oximetry 97 Oxygen Delivery Fraction of Inspired Oxygen 30 02/09/25 04:00 02/09/25 04:00 02/09/25 04:54 Temperature Pulse Rate 89 76 82 Respiratory Rate 20 Blood Pressure Pulse Oximetry 98 99 Oxygen Delivery Mechanical Ventilation Mechanical Ventilation Fraction of Inspired Oxygen 30 30 02/09/25 05:00 02/09/25 06:00 02/09/25 06:00 Temperature 99.1 F Pulse Rate 82 80 72 Respiratory Rate 16 20 Blood Pressure 103/71 Pulse Oximetry 98 Oxygen Delivery Fraction of Inspired Oxygen 02/09/25 06:46 02/09/25 06:47 02/09/25 06:47 Temperature Pulse Rate 81 81 81 Respiratory Rate 15 15 15 Blood Pressure Pulse Oximetry Oxygen Delivery Fraction of Inspired Oxygen 02/09/25 08:00 02/09/25 08:00 02/09/25 08:00 Temperature 98.6 F Pulse Rate 80 91 94 Respiratory Rate 17 16 18 Blood Pressure 99/66 L Pulse Oximetry 98 Oxygen Delivery Fraction of Inspired Oxygen 02/09/25 08:00 02/09/25 08:00 02/09/25 08:00 Temperature Pulse Rate 81 81 Respiratory Rate 17 Blood Pressure Pulse Oximetry 97 Oxygen Delivery Mechanical Ventilation Fraction of Inspired Oxygen 30 30 02/09/25 08:08 02/09/25 08:17 02/09/25 08:22 Temperature Pulse Rate 100 96 Respiratory Rate 24 H Blood Pressure Pulse Oximetry 96 Oxygen Delivery Mechanical Ventilation Mechanical Ventilation Fraction of Inspired Oxygen 30 30 02/09/25 08:30 02/09/25 08:45 02/09/25 09:00 Temperature Pulse Rate 95 97 82 Respiratory Rate 31 H 13 Blood Pressure Pulse Oximetry Oxygen Delivery Fraction of Inspired Oxygen 02/09/25 09:01 02/09/25 10:00 02/09/25 10:00 Temperature 99.6 F Pulse Rate 96 86 85 Respiratory Rate 16 12 Blood Pressure 126/84 Pulse Oximetry 97 98 Oxygen Delivery Mechanical Ventilation Fraction of Inspired Oxygen 30 02/09/25 10:00 02/09/25 10:45 02/09/25 11:12 Temperature Pulse Rate 82 82 78 Respiratory Rate 12 16 Blood Pressure Pulse Oximetry Oxygen Delivery Fraction of Inspired Oxygen 02/09/25 11:14 02/09/25 11:57 02/09/25 12:00 Temperature 99.5 F Pulse Rate 80 78 80 Respiratory Rate 16 13 Blood Pressure 94/59 L Pulse Oximetry 99 100 Oxygen Delivery Mechanical Ventilation Fraction of Inspired Oxygen 30 02/09/25 12:00 Temperature Pulse Rate 79 Respiratory Rate 16 Blood Pressure Pulse Oximetry 98 Oxygen Delivery Mechanical Ventilation Fraction of Inspired Oxygen 30 Intake/Output Intake/Output: Intake & Output 02/06/25 02/07/25 02/08/25 02/09/25 23:59 23:59 23:59 23:59 Intake Total 2204.6 2540.2 2569.7 211.2 Output Total 1200 1500 2800 800 Balance 1004.6 1040.2 -230.3 -588.8 Meds/Results Medications: Active Medications Generic Name Dose Route Start Last Admin Trade Name Freq PRN Reason Stop Dose Admin Acetaminophen 650 mg 02/03/25 22:36 02/05/25 21:31 Acetaminophen Elixir 325 Mg/10.15 Ml Udc PO 650 mg Q6H PRN Administration Mild Pain (1-3) or Fever Dextrose 12.5 gm 02/01/25 07:23 Dextrose 50% 25 Gm/50 Ml Syringe IV PUSH PRN PRN Hypoglycemia Protocol Enoxaparin Sodium 40 mg 02/07/25 09:00 02/09/25 08:46 Enoxaparin 40 Mg/0.4 Ml Syringe SUB-Q 40 mg DAILY HAIM Administration Glucagon 1 mg 02/01/25 07:23 Glucagon For Inj 1 Mg Vial IM PRN PRN Hypoglycemia Protocol Glucose 15 gm 02/01/25 07:23 Glucose Oral Gel 15 Gm Of Glucse In 37.5 Gm Tube PO PRN PRN Hypoglycemia Protocol Dextrose 1,000 mls @ 100 mls/hr 02/01/25 07:23 Dextrose 5% 1,000 Ml IVPB PRN PRN Hypoglycemia Protocol Dexmedetomidine HCl 400 mcg in 100 mls @ 11.853 mls/hr 02/06/25 12:20 02/09/25 11:57 Precedex 400 Mcg/100 Ml IV CONT 1.1 mcg/kg/hr .Q8H27M HAIM 11.85 mls/hr Administration Protocol 1.1 MCG/KG/HR Propofol 100 mls @ 5.835 mls/hr 02/06/25 12:35 02/09/25 10:45 Diprivan IV CONT 25 mcg/kg/min .Q17H9M HAIM 5.84 mls/hr Titration Protocol 25 MCG/KG/MIN Insulin Aspart 3 - 6 units 02/01/25 12:00 02/09/25 11:58 Insulin Aspart (*Bkc) 100 Units/Ml SUB-Q Not Given Q6HR HAIM Protocol Ipratropium [place] 0.5 mg 02/04/25 14:00 02/09/25 08:16 Ipratropium Br 0.02% Inh Soln 0.5 Mg/2.5 Ml Vial INHALATION 0.5 mg Q6HRT HAIM Administration Levalbuterol HCl 0.63 mg 02/04/25 14:00 02/09/25 08:16 Levalbuterol Neb 1.25 Mg/3 Ml INHALATION 0.63 mg Q6HRT HAIM Administration Metoprolol Tartrate 5 mg 02/04/25 04:26 02/06/25 05:47 Metoprolol Tartrate Inj 5 Mg/5 Ml Vial IV PUSH 5 mg Q6H PRN Administration HR > 130 Metoprolol Tartrate 25 mg 02/04/25 09:00 02/09/25 08:45 Metoprolol Tartrate 25 Mg Tablet PO 25 mg BID HAIM Administration Multi-Ingred Cream/Lotion/Oil/Oint 1 applic 02/01/25 21:00 02/09/25 08:57 Mineral Oil/White Petrolatum Ointment EACH EYE 1 applic Q12HR HAIM Administration Ondansetron HCl 4 mg 01/31/25 16:00 Ondansetron Inj 4 Mg/2 Ml Vial IV PUSH Q4H PRN Nausea Pantoprazole Sodium 40 mg 02/01/25 09:00 02/09/25 08:45 Pantoprazole Sodium Iv 40 Mg Vial IV PUSH 40 mg Q12HR HAIM Administration Polyethylene Glycol 17 gm 02/08/25 10:41 Polyethylene Glycol 3350 17 Gm Powd.Pack PO QAM PRN constipation Sodium Chloride 10 ml 02/01/25 14:00 02/09/25 06:48 Central Line Flush IV PUSH 10 ml Q8HR HAIM Administration Sodium Chloride 20 ml 02/01/25 06:37 Central Line Flush IV PUSH PRN PRN after blood draws Radiology Results: ITS Impressions Head CT 01/31/25 15:47 Impression: No acute intracranial hemorrhage or suspicious mass effect. Chest/Abdomen/Pelvis CTA 01/31/25 15:49 IMPRESSION: Right middle and lower lobe pneumonia with dense consolidation. Left basilar atelectasis. No pulmonary embolus. No aortic dissection. Oral contrast opacifies the entirety of the colon. Supportive lines in good position. No acute pathology within the remainder of the examination, as detailed above. Chest X-Ray 02/09/25 05:38 IMPRESSION: 1. Stable airspace opacities in right mid and lower lung zones, consistent with atelectasis versus pneumonia. Labs Labs: Laboratory Results - last 24 hr 02/08/25 02/08/25 02/08/25 17:26 17:35 23:54 WBC RBC Hgb Hct MCV MCH MCHC RDW Plt Count MPV Puncture Site ABG pH ABG pCO2 ABG pO2 ABG PO2/FiO2 Ratio ABG HCO3 ABG O2 Saturation ABG O2 Content ABG Base Excess A-a Gradient Oxyhemoglobin Carboxyhemoglobin Methemoglobin Reduced Hemoglobin Total Hemoglobin O2 Delivery Device O2 Liters/Min Minute Volume Vent Rate Vent Mode FiO2 Tidal Volume PEEP Peak Inspir Pressure Pressure Support Sodium 140 Potassium 3.7 Chloride 100 Carbon Dioxide 34 H Anion Gap 6 BUN 24 H Creatinine 0.55 L Estim Creat Clear Calc 50 Estimated GFR > 60 Glucose 113 H POC Capillary Glucose 113 H 116 H Calcium 9.5 Magnesium Total Bilirubin AST ALT Alkaline Phosphatase Total Protein Albumin 02/09/25 02/09/25 02/09/25 04:50 06:53 11:54 WBC 10.2 H RBC 3.19 L Hgb 9.3 L Hct 29.6 L MCV 92.8 MCH 29.2 MCHC 31.4 L RDW 16.0 H Plt Count 260 MPV 11.4 H Puncture Site Left radial ABG pH 7.492 H ABG pCO2 43.2 ABG pO2 69.6 L ABG PO2/FiO2 Ratio 2.32 ABG HCO3 32.3 H ABG O2 Saturation 95.1 ABG O2 Content 13.2 L ABG Base Excess 8.2 A-a Gradient 93.5 Oxyhemoglobin 93.4 Carboxyhemoglobin 0.3 Methemoglobin 0.3 Reduced Hemoglobin 6.0 H Total Hemoglobin 10.0 L O2 Delivery Device Ventilator O2 Liters/Min Not Reportable Minute Volume Not Reportable Vent Rate 15 Vent Mode Cmv FiO2 30 Tidal Volume 310 PEEP 5 Peak Inspir Pressure Not Reportable Pressure Support Not Reportable Sodium 137 Potassium 3.4 Chloride 96 L Carbon Dioxide 31 H Anion Gap 10 BUN 30 H Creatinine 0.50 L Estim Creat Clear Calc 54 Estimated GFR > 60 Glucose 129 H POC Capillary Glucose 112 H Calcium 9.5 Magnesium 2.2 Total Bilirubin 0.5 AST 68 H ALT 55 H Alkaline Phosphatase 102 Total Protein 8.0 Albumin 3.8
[2025-02-09 18:38] LABS: Glucose Point of Care 92 mg/dl (65-105)
[2025-02-09] MEDS: dexmedeTOMIDine 400 MCG/100 ML 400 MCG/100 ML BAG 7.54 MCG IV CONT (22:13)
[2025-02-10] VITALS (37 sets, daily range): BP systolic 98–146; BP diastolic 70–93; PULSE 91–119; RESP 14–22; TEMP 37.1–37.7; O2SAT 94–100
[2025-02-10] MEDS: IPRATROPIUM BR 0.02% INH SOLN 0.5 MG/2.5 ML VIAL INHALATION ×4 (01:58→19:58)
[2025-02-10] MEDS: LEVALBUTEROL NEB 1.25 MG/3 ML 0.63 MG INHALATION ×4 (01:58→19:57)
[2025-02-10 04:56] LABS: Hematocrit 29.4 % (37.0-47.0); Hemoglobin 9.6 g/dL (12.0-15.0); Mean Corpuscular HGB Conc 32.7 g/dl (32-36); Mean Corpuscular Hemoglobin 30.2 pg (26-34); Mean Corpuscular Volume 92.5 fl (80-100); Mean Platelet Volume 11.1 fl (7.4-10.4); Platelet Count Result 273 k/mm3 (150-375); Red Blood Count 3.18 M/mm3 (4.2-5.4); Red Cell Distribution Width 16.2 % (11.5-14.5)
[2025-02-10 04:57] LABS: Alveolar/Arterial O2 Gradient 56.7 mmHg; Base Excess ABG 6.1 mEq/l (+/-2.0); Carboxyhemoglobin 0.3 % THb (0-2.0); Fractional Inspired Oxygen 30 %; HCO3 ABG 29.7 mEq/l (22.0-26.0); Methemoglobin ABG 0.3 %THb (0-1.5); Oxygen Content ABG 14.9 %vol (16.0-22.0); Oxygen Saturation ABG 98.4 % (95.0-100.0); PCO2 ABG 39.2 mmHg (35.0-45.0); PO2 ABG 111.1 mmHg (80.0-100.0); Reduced Hemoglobin 1.4 %THb (0-5.0); Total Hemoglobin 10.7 g/dL (12.0-18.0); pH ABG 7.498 (7.350-7.450)
[2025-02-10 05:09] LABS: Alanine Aminotransferase 67 U/L (6-35); Albumin Level 3.8 g/dL (3.5-5.1); Alkaline Phosphatase 109 U/L (38-126); Anion Gap 8 mmol/L (4-12); Aspartate Amino Transferase 73 U/L (14-36); Bilirubin,Total 0.3 mg/dL (0.2-1.3); Blood Urea Nitrogen 29 mg/dL (7-17); Calcium 9.2 mg/dL (8.4-10.2); Carbon Dioxide 32 mmol/L (22-30); Chloride 100 mmol/L (98-107); Estimated CRCL calculation 57 ml/min; Estimated Glomerular Filt Rate > 60; Glucose 105 mg/dL (65-110); Magnesium 2.2 mg/dL (1.6-2.3); Potassium 3.9 mmol/L (3.4-5.0); Sodium 140 mmol/L (137-145)
[2025-02-10 05:44] LABS: Modified Allen's Test Pass; Site Drawn RIGHT RADIAL
[2025-02-10 05:45] LABS: Arterial Blood Gas PEEP 5 cmH2O; Arterial Blood Gas Tidal Volume 300 ml; Arterial Blood Gas Vent Mode CMV; Arterial Blood Gas Ventilator rate 14 /MIN; Device VENTILATOR
[2025-02-10] MEDS: CENTRAL LINE FLUSH 10 ML IV PUSH ×2 (06:31→15:01)
--- NOTE | 2025-02-10 08:27 | P.PNINT_ITS ---
Progress Note: A&P Assessment and Plan (1) Acute hypoxic respiratory failure: Code(s): J96.01 - Acute respiratory failure with hypoxia Status: Acute Assessment and Plan: 01/31/2025: Patient presented from [facility] with hypoxia, periods of apnea, and unresponsiveness. She was brought to the ED being bagged, she did not have a gag and was unresponsive in the ED so was intubated upon arrival to the ED. central line was also inserted as she was hypotensive CT scan showed right middle and right lower lobe consolidation. Since then patient has also received decent amount of IV fluids 02/05-accidentally got extubated during turning by the nursing staff. She was intubated 02/06 failed weaning trial. patient kept on going into apnea ventilation. Precedex rate was decreased and patient is now on ASV. 02/07 weaning trial was attempted again. Patient had high RSBI on PSV 03/19. Patient was erratically breathing agitated and had drop in sats. Breathing trial was aborted 02/08 failed weaning trial due to high RSBI 02/09 I attempted a SBT weaning trial this morning. On 03/19 patient respiratory rate was in 40s with tidal volume and 100s. I had to increase the pressure support to 12 to get adequate RSBI even then patient's breathing was at. patient is not a candidate for extubation at this point. She will not be able to use BiPAP considering cerebral palsy and inability to communicate. I will try to continue weaning but I anticipate that if patient does not get extubated then she may need trach for continued ventilatory support 02/10 patient failed weaning trial again due to respiratory rate in high 40s and tidal volumes in 100s.. She requires pressure support of 12/5 for adequate ventilatory numbers. She is not a candidate for BiPAP. I anticipate patient will likely need tracheostomy. I called his healthcare power scientific systems analyst who is on vacation at this time I will speak him on Wednesday. -currently on CMV mode of ventilation, peep of 5 and 30 % FiO2 -ABGs and chest x-ray reviewed, ventilator adjusted by decreasing the rate -continue bronchodilators and Mucomyst nebulizer -completed course of Zosyn and azithromycin -will give Lasix again today (2) AMS (altered mental status): Qualifiers: Altered mental status type: unspecified Qualified Code(s): R41.82 - Altered mental status, unspecified Code(s): R41.82 - Altered mental status, unspecified Status: Acute Assessment and Plan: Encephalopathy could be related to hypoxia, hypercapnia, pneumonia/infection/hypotension, could be related to medication -head CT negative at the time of presentation -currently intubated -offer send fentanyl and on Precedex -upon review of chart patient appears to be nonverbal at baseline and communicates her needs with gestures. She walks around in the hallways and is able to eat modified diet (3) Pneumonia: Qualifiers: Pneumonia type: due to unspecified organism Laterality: right Lung location: unspecified part of lung Qualified Code(s): J18.9 - Pneumonia, unspecified organism Code(s): J18.9 - Pneumonia, unspecified organism Status: Acute Assessment and Plan: Chest x-ray and CTA chest show right lower lobe consolidation -according the [facility] records: Repeat CT chest showed interval development of new airspace opacities raising concern for aspiration pneumonia. She was transition to Zosyn from cefepime. MBS performed on 01/26 at [facility] which showed no evidence of aspiration despite coughing especially with swallowing. - completed course of Zosyn, azithromycin (01/31) -MRSA screen is negative, vancomycin discontinued (02/01) (4) Sepsis: Code(s): A41.9 - Sepsis, unspecified organism Status: Acute Assessment and Plan: Patient presented with altered mental status, hypoxia, apnea, pneumonia. -lactic acid was normal -blood pressures are borderline -patient was adequately fluid-resuscitated -status post albumin for volume expansion -off Levophed, -continue to monitor urine output and renal function - she has been receiving Lasix as needed depending on her volume status (5) Cerebral palsy: Code(s): G80.9 - Cerebral palsy, unspecified Status: Acute Assessment and Plan: Patient with cerebral palsy, mild intellectual disability, schizophrenia, nonverbal at baseline according the chart -patient on risperidone, will restart prior to extubation as she is currently sedated and intubated (6) Anemia: Code(s): D64.9 - Anemia, unspecified Status: Acute Assessment and Plan: Patient admitted with a hemoglobin of 10.3 on 01/31 -02/01: Hemoglobin dropped to 7.7, a repeat CBC was done which showed a hemoglobin of 7.3 -will check stools for occult blood, -folic acid and vitamin B12 level within normal limits -low iron levels, low TIBC, will give Venofer -LDH is normal, haptoglobin is pending -Protonix IV q.12 hours -continue to monitor (7) Electrolyte imbalance: Code(s): E87.8 - Other disorders of electrolyte and fluid balance, not elsewhere classified Status: Acute Assessment and Plan: Continue free water flush to 100 mL Potassium improved after placement (8) Sinus tachycardia: Code(s): R00.0 - Tachycardia, unspecified Status: Acute Assessment and Plan: 02/04: Patient developed SVT/sinus tachycardia overnight with rates in the 180- 200s. Was given IV metoprolol x1 with improvement which brought her rate start to 130s. -could be multifactorial, related to sepsis, anemia, coronary artery disease -TSH normal -will continue metoprolol -currently sinus tachycardia monitor - mild elevation in troponin level with the levels have trended down -cardiology consult 02/02/2025: Echocardiogram Summary 1. Complete two-dimensional, color flow and Doppler transthoracic echocardiogram is performed. 2. Left ventricular chamber dimension is normal. 3. Left ventricular systolic function is normal, estimated at 60-65%. 4. The left ventricular diastolic function is grade I diastolic dysfunction. 5. E/e' 7 is not elevated. 6. There is mild aortic valve sclerosis. 7. There is trace tricuspid valve regurgitation. 8. Mild pulmonary hypertension, estimated pulmonary arterial systolic pressure is 41 mmHg. (9) Constipation: Code(s): K59.00 - Constipation, unspecified Status: Acute Assessment and Plan: 02/04: KUB showed moderate fecal retention -improved with laxatives as patient is now having bowel movements. 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 I have requested them to call me when he is back on Wednesday. Critical Care Time Spent: 30 minutes Due to a high probability of clinically significant, life threatening deterioration, the patient required my highest level of preparedness to intervene emergently and I personally spent this critical care time directly and personally managing the patient. This critical care time included obtaining a history; examining the patient; pulse oximetry; ordering and review of studies; arranging urgent treatment with development of a management plan; evaluation of patient's response to treatment; frequent reassessment; and discussions with other providers. It was exclusive of separately billable procedures and treating other patients and teaching time. Please see Assessment and Plan section and the rest of the note for further information on patient assessment and treatment This dictation may have been done utilizing a voice recognition system. Attempts have been made to correct errors. However, there may be uncorrected grammatical, spelling, and recognitions errors present. Subjective Date/time seen: 02/10/25 Overnight events reviewed. Afebrile Continues to be on mechanical ventilation 30% failure weaning trial yesterday Continues to be sedated with propofol and Precedex Vitals acceptable Interval history: Reason for consult: Acute respiratory failure, pneumonia, altered mental status, unresponsiveness, anemia Review of Systems Review of Systems: ROS unobtainable: Yes unobtainable due to endotracheal tube, unobtainable due to medical condition and unobtainable due to mental status Exam Narrative: General: Petite female/malnourished, in no acute distress HEENT:? Pupils are pinpoint, sluggish, ETT in place Neck:? Supple Respiratory:? Coarse breath sounds bilaterally, rales on right base, no wheezing, adequate air entry otherwise Cardiac:? S1-S2 normal, regular rate and rhythm Abdomen:? Soft, nontender, nondistended, hypoactive bowel sounds Extremities:? Trace edema, bilateral pedal pulses are palpable Neuro:? Intubated, sedated, eyes are open and she moves all 4 extremities, tries to pull lines and try to get out of bed. Nodes her head on calling her name but does not follow any command. She has a decent cough but she does not follow any commands. On pressure support ventilation trial she goes into apnea ventilation intermittent Skin:? No skin lesions noted Psych:? Unable to assess at this time Objective Data Vital Signs Vital Signs: Vital Signs - 24 hr 02/09/25 08:30 02/09/25 08:45 02/09/25 09:00 Temperature Pulse Rate 95 97 82 Respiratory Rate 31 H 13 Blood Pressure Pulse Oximetry Oxygen Delivery Fraction of Inspired Oxygen 02/09/25 09:01 02/09/25 10:00 02/09/25 10:00 Temperature 37.6 C Pulse Rate 96 86 85 Respiratory Rate 16 12 Blood Pressure 126/84 Pulse Oximetry 97 98 Oxygen Delivery Mechanical Ventilation Fraction of Inspired Oxygen 30 02/09/25 10:00 02/09/25 10:45 02/09/25 11:12 Temperature Pulse Rate 82 82 78 Respiratory Rate 12 16 Blood Pressure Pulse Oximetry Oxygen Delivery Fraction of Inspired Oxygen 02/09/25 11:14 02/09/25 11:57 02/09/25 12:00 Temperature 37.5 C Pulse Rate 80 78 80 Respiratory Rate 16 13 Blood Pressure 94/59 L Pulse Oximetry 99 100 Oxygen Delivery Mechanical Ventilation Fraction of Inspired Oxygen 30 02/09/25 12:00 02/09/25 12:00 02/09/25 12:00 Temperature Pulse Rate 79 82 Respiratory Rate 16 Blood Pressure Pulse Oximetry 98 Oxygen Delivery Mechanical Ventilation Fraction of Inspired Oxygen 30 30 02/09/25 12:00 02/09/25 12:00 02/09/25 14:00 Temperature 37.5 C Pulse Rate 81 81 82 Respiratory Rate 14 14 14 Blood Pressure 101/67 Pulse Oximetry 99 Oxygen Delivery Fraction of Inspired Oxygen 02/09/25 14:00 02/09/25 14:00 02/09/25 14:00 Temperature Pulse Rate 83 80 81 Respiratory Rate 15 14 Blood Pressure Pulse Oximetry Oxygen Delivery Fraction of Inspired Oxygen 02/09/25 14:13 02/09/25 14:17 02/09/25 14:24 Temperature Pulse Rate 83 78 85 Respiratory Rate 14 17 Blood Pressure Pulse Oximetry 100 Oxygen Delivery Mechanical Ventilation Fraction of Inspired Oxygen 30 02/09/25 16:00 02/09/25 16:00 02/09/25 16:00 Temperature Pulse Rate 82 82 Respiratory Rate 16 18 Blood Pressure Pulse Oximetry Oxygen Delivery Fraction of Inspired Oxygen 30 02/09/25 16:00 02/09/25 16:00 02/09/25 16:00 Temperature 37.2 C Pulse Rate 81 81 81 Respiratory Rate 16 15 Blood Pressure 109/73 Pulse Oximetry 100 98 Oxygen Delivery Mechanical Ventilation Fraction of Inspired Oxygen 30 02/09/25 17:00 02/09/25 17:00 02/09/25 17:00 Temperature Pulse Rate 80 80 80 Respiratory Rate 16 18 Blood Pressure Pulse Oximetry 98 Oxygen Delivery Mechanical Ventilation Fraction of Inspired Oxygen 30 02/09/25 18:00 02/09/25 18:00 02/09/25 18:00 Temperature 37.3 C Pulse Rate 88 92 91 Respiratory Rate 22 H Blood Pressure 105/76 Pulse Oximetry 99 Oxygen Delivery Fraction of Inspired Oxygen 02/09/25 19:51 02/09/25 19:55 02/09/25 20:00 Temperature Pulse Rate 83 84 83 Respiratory Rate 15 15 Blood Pressure Pulse Oximetry 99 99 Oxygen Delivery Mechanical Ventilation Mechanical Ventilation Fraction of Inspired Oxygen 30 30 02/09/25 20:00 02/09/25 20:00 02/09/25 20:00 Temperature 37.2 C Pulse Rate 83 85 Respiratory Rate 15 Blood Pressure 110/78 Pulse Oximetry 100 Oxygen Delivery Fraction of Inspired Oxygen 30 02/09/25 20:00 02/09/25 20:00 02/09/25 20:10 Temperature Pulse Rate 82 82 84 Respiratory Rate 16 16 15 Blood Pressure Pulse Oximetry Oxygen Delivery Fraction of Inspired Oxygen 02/09/25 22:00 02/09/25 22:00 02/09/25 22:00 Temperature 36.8 C Pulse Rate 91 91 91 Respiratory Rate 16 18 Blood Pressure 119/78 Pulse Oximetry 99 Oxygen Delivery Fraction of Inspired Oxygen 02/09/25 22:13 02/09/25 22:13 02/09/25 23:21 Temperature Pulse Rate 90 90 83 Respiratory Rate 18 18 Blood Pressure Pulse Oximetry 100 Oxygen Delivery Mechanical Ventilation Fraction of Inspired Oxygen 30 02/10/25 00:00 02/10/25 00:00 02/10/25 00:00 Temperature Pulse Rate 98 98 Respiratory Rate 18 Blood Pressure Pulse Oximetry 98 Oxygen Delivery Mechanical Ventilation Fraction of Inspired Oxygen 30 30 02/10/25 00:00 02/10/25 00:00 02/10/25 00:00 Temperature 37.1 C Pulse Rate 98 98 98 Respiratory Rate 16 18 17 Blood Pressure 121/79 Pulse Oximetry 98 Oxygen Delivery Fraction of Inspired Oxygen 02/10/25 02:00 02/10/25 02:00 02/10/25 02:00 Temperature 37.7 C H Pulse Rate 99 99 99 Respiratory Rate 17 17 Blood Pressure 135/76 Pulse Oximetry 99 Oxygen Delivery Fraction of Inspired Oxygen 02/10/25 02:00 02/10/25 02:01 02/10/25 02:02 Temperature Pulse Rate 99 101 H 98 Respiratory Rate 18 15 Blood Pressure Pulse Oximetry 100 Oxygen Delivery Mechanical Ventilation Fraction of Inspired Oxygen 30 02/10/25 02:10 02/10/25 04:00 02/10/25 04:00 Temperature Pulse Rate 99 106 H 106 H Respiratory Rate 15 18 Blood Pressure Pulse Oximetry 99 Oxygen Delivery Mechanical Ventilation Fraction of Inspired Oxygen 30 02/10/25 04:00 02/10/25 04:00 02/10/25 04:00 Temperature 37.6 C H Pulse Rate 96 98 Respiratory Rate 17 18 Blood Pressure 106/71 Pulse Oximetry 97 Oxygen Delivery Fraction of Inspired Oxygen 30 02/10/25 04:00 02/10/25 04:35 02/10/25 06:00 Temperature Pulse Rate 98 102 H 116 H Respiratory Rate 18 Blood Pressure Pulse Oximetry 98 Oxygen Delivery Mechanical Ventilation Fraction of Inspired Oxygen 30 02/10/25 06:00 02/10/25 06:00 02/10/25 06:00 Temperature 37.4 C Pulse Rate 110 H 115 H 115 H Respiratory Rate 22 H 22 H 22 H Blood Pressure 126/82 Pulse Oximetry 96 Oxygen Delivery Fraction of Inspired Oxygen 02/10/25 07:40 02/10/25 07:45 02/10/25 07:55 Temperature Pulse Rate 105 H 105 H 105 H Respiratory Rate 22 H 21 H Blood Pressure Pulse Oximetry 98 Oxygen Delivery Mechanical Ventilation Fraction of Inspired Oxygen 30 02/10/25 08:04 02/10/25 08:10 Temperature Pulse Rate 110 H 108 H Respiratory Rate Blood Pressure Pulse Oximetry 98 98 Oxygen Delivery Mechanical Ventilation Mechanical Ventilation Fraction of Inspired Oxygen 30 30 Intake/Output Intake/Output: Intake & Output 02/07/25 02/08/25 02/09/25 02/10/25 23:59 23:59 23:59 23:59 Intake Total 2540.2 2569.7 1098.7 826.7 Output Total 1500 2800 1350 650 Balance 1040.2 -230.3 -251.3 176.7 Meds/Results Medications: Active Medications Generic Name Dose Route Start Last Admin Trade Name Freq PRN Reason Stop Dose Admin Acetaminophen 650 mg 02/03/25 22:36 02/05/25 21:31 Acetaminophen Elixir 325 Mg/10.15 Ml Udc PO 650 mg Q6H PRN Administration Mild Pain (1-3) or Fever Dextrose 12.5 gm 02/01/25 07:23 Dextrose 50% 25 Gm/50 Ml Syringe IV PUSH PRN PRN Hypoglycemia Protocol Enoxaparin Sodium 40 mg 02/07/25 09:00 02/09/25 08:46 Enoxaparin 40 Mg/0.4 Ml Syringe SUB-Q 40 mg DAILY HAIM Administration Glucagon 1 mg 02/01/25 07:23 Glucagon For Inj 1 Mg Vial IM PRN PRN Hypoglycemia Protocol Glucose 15 gm 02/01/25 07:23 Glucose Oral Gel 15 Gm Of Glucse In 37.5 Gm Tube PO PRN PRN Hypoglycemia Protocol Dextrose 1,000 mls @ 100 mls/hr 02/01/25 07:23 Dextrose 5% 1,000 Ml IVPB PRN PRN Hypoglycemia Protocol Dexmedetomidine HCl 400 mcg in 100 mls @ 7.543 mls/hr 02/06/25 12:20 02/10/25 06:00 Precedex 400 Mcg/100 Ml IV CONT 0.7 mcg/kg/hr .[id number] HAIM 7.54 mls/hr Titration Protocol 0.7 MCG/KG/HR Propofol 100 mls @ 3.501 mls/hr 02/06/25 12:35 02/10/25 06:00 Diprivan IV CONT 15 mcg/kg/min .[id number] HAIM 3.5 mls/hr Titration Protocol 15 MCG/KG/MIN Insulin Aspart 3 - 6 units 02/01/25 12:00 02/10/25 06:31 Insulin Aspart (*Bkc) 100 Units/Ml SUB-Q Not Given Q6HR HAIM Protocol Ipratropium [place] 0.5 mg 02/04/25 14:00 02/10/25 07:39 Ipratropium Br 0.02% Inh Soln 0.5 Mg/2.5 Ml Vial INHALATION 0.5 mg Q6HRT HAIM Administration Levalbuterol HCl 0.63 mg 02/04/25 14:00 02/10/25 07:39 Levalbuterol Neb 1.25 Mg/3 Ml INHALATION 0.63 mg Q6HRT HAIM Administration Metoprolol Tartrate 5 mg 02/04/25 04:26 02/06/25 05:47 Metoprolol Tartrate Inj 5 Mg/5 Ml Vial IV PUSH 5 mg Q6H PRN Administration HR > 130 Metoprolol Tartrate 25 mg 02/04/25 09:00 02/09/25 18:00 Metoprolol Tartrate 25 Mg Tablet PO 25 mg BID HAIM Administration Multi-Ingred Cream/Lotion/Oil/Oint 1 applic 02/01/25 21:00 02/09/25 21:36 Mineral Oil/White Petrolatum Ointment EACH EYE 1 applic Q12HR HAIM Administration Ondansetron HCl 4 mg 01/31/25 16:00 Ondansetron Inj 4 Mg/2 Ml Vial IV PUSH Q4H PRN Nausea Pantoprazole Sodium 40 mg 02/01/25 09:00 02/09/25 21:36 Pantoprazole Sodium Iv 40 Mg Vial IV PUSH 40 mg Q12HR HAIM Administration Polyethylene Glycol 17 gm 02/08/25 10:41 Polyethylene Glycol 3350 17 Gm Powd.Pack PO QAM PRN constipation Sodium Chloride 10 ml 02/01/25 14:00 02/10/25 06:31 Central Line Flush IV PUSH 10 ml Q8HR HAIM Administration Sodium Chloride 20 ml 02/01/25 06:37 Central Line Flush IV PUSH PRN PRN after blood draws Radiology Results: ITS Impressions Head CT 01/31/25 15:47 Impression: No acute intracranial hemorrhage or suspicious mass effect. Chest/Abdomen/Pelvis CTA 01/31/25 15:49 IMPRESSION: Right middle and lower lobe pneumonia with dense consolidation. Left basilar atelectasis. No pulmonary embolus. No aortic dissection. Oral contrast opacifies the entirety of the colon. Supportive lines in good position. No acute pathology within the remainder of the examination, as detailed above. Chest X-Ray 02/10/25 06:19 IMPRESSION: 1. Stable airspace opacities in right mid and lower lung zones, consistent with atelectasis versus pneumonia. Labs Labs: Laboratory Results - last 24 hr 02/09/25 02/09/25 02/10/25 11:54 18:36 04:37 WBC RBC Hgb Hct MCV MCH MCHC RDW Plt Count MPV Puncture Site Right radial ABG pH 7.498 H ABG pCO2 39.2 ABG pO2 111.1 H ABG PO2/FiO2 Ratio 3.70 ABG HCO3 29.7 H ABG O2 Saturation 98.4 ABG O2 Content 14.9 L ABG Base Excess 6.1 A-a Gradient 56.7 Oxyhemoglobin 98.0 Carboxyhemoglobin 0.3 Methemoglobin 0.3 Reduced Hemoglobin 1.4 Total Hemoglobin 10.7 L O2 Delivery Device Ventilator O2 Liters/Min Not Reportable Minute Volume Not Reportable Vent Rate 14 Vent Mode Cmv FiO2 30 Tidal Volume 300 PEEP 5 Peak Inspir Pressure Not Reportable Pressure Support Not Reportable Sodium Potassium Chloride Carbon Dioxide Anion Gap BUN Creatinine Estim Creat Clear Calc Estimated GFR Glucose POC Capillary Glucose 112 H 92 Calcium Magnesium Total Bilirubin AST ALT Alkaline Phosphatase Total Protein Albumin 02/10/25 04:47 WBC 10.0 RBC 3.18 L Hgb 9.6 L Hct 29.4 L MCV 92.5 MCH 30.2 MCHC 32.7 RDW 16.2 H Plt Count 273 MPV 11.1 H Puncture Site ABG pH ABG pCO2 ABG pO2 ABG PO2/FiO2 Ratio ABG HCO3 ABG O2 Saturation ABG O2 Content ABG Base Excess A-a Gradient Oxyhemoglobin Carboxyhemoglobin Methemoglobin Reduced Hemoglobin Total Hemoglobin O2 Delivery Device O2 Liters/Min Minute Volume Vent Rate Vent Mode FiO2 Tidal Volume PEEP Peak Inspir Pressure Pressure Support Sodium 140 Potassium 3.9 Chloride 100 Carbon Dioxide 32 H Anion Gap 8 BUN 29 H Creatinine 0.47 L Estim Creat Clear Calc 57 Estimated GFR > 60 Glucose 105 POC Capillary Glucose Calcium 9.2 Magnesium 2.2 Total Bilirubin 0.3 AST 73 H ALT 67 H Alkaline Phosphatase 109 Total Protein 8.0 Albumin 3.8 Quality VTE Prophylaxis VTE prophylaxis: mechanical ordered and pharmacologic ordered
[2025-02-10] MEDS: FUROSEMIDE INJ 40 MG/4 ML VIAL IV PUSH (09:15)
[2025-02-10] MEDS: PANTOPRAZOLE SODIUM IV 40 MG VIAL IV PUSH ×2 (09:15→22:31)
[2025-02-10] MEDS: ENOXAPARIN 40 MG/0.4 ML SYRINGE SUB-Q (09:15)
[2025-02-10] MEDS: METOPROLOL TARTRATE 25 MG TABLET PO ×2 (09:15→16:12)
[2025-02-10] MEDS: MINERAL OIL/WHITE PETROLATUM OINTMENT 1 APPLIC EACH EYE ×2 (09:16→22:31)
[2025-02-10 11:37] LABS: Glucose Point of Care 111 mg/dl (65-105)
[2025-02-10] MEDS: dexmedeTOMIDine 400 MCG/100 ML 400 MCG/100 ML BAG 5.39 MCG IV CONT (12:00)
[2025-02-10] MEDS: PROPOFOL IV EMULSION 100 ML 1.11 MG IV CONT (15:40)
--- NOTE | 2025-02-10 16:28 | P.PNIM_ITS ---
Progress Note: A&P Assessment and Plan (1) Acute hypoxic respiratory failure: Code(s): J96.01 - Acute respiratory failure with hypoxia Status: Acute Assessment and Plan: Patient presented on 01/31 from [facility] with hypoxia, periods of apnea, and unresponsiveness. She was brought to the ED being bagged, she did not have a gag and was unresponsive in the ED so was intubated upon arri camelia to the ED. central line was also inserted as she was hypotensive CT scan showed right middle and right lower lobe consolidation. Patient was fluid resuscitated 02/05-accidentally got extubated during turning by the nursing staff. She was re-intubated Patient has failed multiple weaning trials -ABGs and chest x-ray reviewed -continue atrovent -completed course of abx (last dose on 02/07) -Lasix IV prn Vent management per candy cooker helper. (2) AMS (altered mental status): Qualifiers: Altered mental status type: unspecified Qualified Code(s): R41.82 - Altered mental status, unspecified Code(s): R41.82 - Altered mental status, unspecified Status: Acute Assessment and Plan: Encephalopathy could be related to hypoxia, hypercapnia, pneumonia/infection/hypotension, could be related to medication. Baseline function: nonverbal and communicates her needs with gestures. She walks in hallways and is able to eat modified diet Head CT negative at the time of presentation Remains intubated Follow (3) Pneumonia: Qualifiers: Pneumonia type: due to unspecified organism Laterality: right Lung location: unspecified part of lung Qualified Code(s): J18.9 - Pneumonia, unspecified organism Code(s): J18.9 - Pneumonia, unspecified organism Status: Acute Assessment and Plan: Chest x-ray and CTA chest show right lower lobe consolidation -according the [facility] records: Repeat CT chest showed interval development of new airspace opacities raising concern for aspiration pneumonia. She was transition to Zosyn from cefepime. MBS performed on 01/26 at [facility] which showed no evidence of aspiration despite coughing especially with swallowing. MRSA screen is negative, vancomycin discontinued (02/01) Completed course of Zosyn, azithromycin (last dose 02/07) May be intermittently aspirating. Follow. Plan to repeat swallow study when able (4) Sepsis: Code(s): A41.9 - Sepsis, unspecified organism Status: Acute Assessment and Plan: Patient presented with altered mental status, hypoxia, apnea, pneumonia. -lactic acid was normal -blood pressures was borderline -patient was adequately fluid-resuscitated -status post albumin for volume expansion -off Levophed, -continue to monitor urine output and renal function -Lasix IV prn (5) Cerebral palsy: Code(s): G80.9 - Cerebral palsy, unspecified Status: Acute Assessment and Plan: Patient with cerebral palsy, mild intellectual disability, schizophrenia, nonverbal at baseline according the chart Patient on risperidone, clomipraminne. Resume when able (6) Anemia: Code(s): D64.9 - Anemia, unspecified Status: Acute Assessment and Plan: Patient admitted with a hemoglobin of 10.3 on 01/31 Hemoglobin dropped to 7.3 on 02/01 Stools for occult blood negative. LDH and haptoglobin normal B12/Folate levels normal. Iron and TIBC low c/w anemia of chronic disease. Venofer given. Hgb 8-9 range now Protonix IV q.12 hours Continue to monitor (7) Electrolyte imbalance: Code(s): E87.8 - Other disorders of electrolyte and fluid balance, not elsewhere classified Status: Acute Assessment and Plan: Free water flushes for hypernatremia; Na bettet now Potassium replacement ordered (8) Sinus tachycardia: Code(s): R00.0 - Tachycardia, unspecified Status: Acute Assessment and Plan: 02/04: Patient developed SVT/sinus tachycardia overnight with rates in the 180- 200s. Was given IV metoprolol x1 with improvement which brought her rate start to 130s. -could be multifactorial, related to sepsis, anemia, coronary artery disease and being off her metoprolol -TSH normal 02/02: Echo showing normal LV systolic function (EF60-65%) and grade I diastolic dysfunction with mild valve disease and mild pHTN. - mild elevation in troponin level with the levels have trended down - cardiology consult -will continue metoprolol (9) Constipation: Code(s): K59.00 - Constipation, unspecified Status: Acute Assessment and Plan: KUB showed moderate fecal retention on 02/04 Improved with laxatives as patient is now having bowel movements. MiraLax held due to diarrhea Plan DVT prophylaxis: Lovenox Stress ulcer prophylaxis: Protonix IV q.12 hours Nutrition: Tolerating tube feeds Code Status: Full -patient is a guardian/bear of the state ([place]) Subjective Date/time seen: 02/10/25 16:28 Interval history: 69yo female with cerebral palsy, nonverbal, osteoporosis, mild intellectual disabilities, dyslipidemia and schizophrenia here with altered mental status and unresponsiveness. Patient remains on mechanical ventilation. She has failed multiple weaning trials. Breathing trial again this morings. Review of Systems Review of Systems: ROS unobtainable: Yes unobtainable due to endotracheal tube Exam Narrative: Tm 100 99.4 107/81 98 17 94% MV Gen - intubated. appears comfortable HEENT -dysconjugate gaze noted. ET tube and OG tube secured. Neck -right IJ triple-lumen catheter secured. Chest - clear bilaterally CV - RRR S1/S2. Telemetry showing no significant dysrhythmias Abd -soft. Positive bowel sounds. Nondistended. -Arredondo catheter secured draining clear yellow urine Ext - No pedal edema. 2+ DP pulses bilaterally. Neuro -alert. Psych -remaining calm Skin - Warm and dry Objective Data Vital Signs Vital Signs: Vital Signs - 24 hr 02/09/25 17:00 02/09/25 17:00 02/09/25 17:00 Temperature Pulse Rate 80 80 80 Respiratory Rate 16 18 Blood Pressure Pulse Oximetry 98 Oxygen Delivery Mechanical Ventilation Fraction of Inspired Oxygen 30 02/09/25 18:00 02/09/25 18:00 02/09/25 18:00 Temperature 99.2 F Pulse Rate 88 92 91 Respiratory Rate 22 H Blood Pressure 105/76 Pulse Oximetry 99 Oxygen Delivery Fraction of Inspired Oxygen 02/09/25 19:51 02/09/25 19:55 02/09/25 20:00 Temperature Pulse Rate 83 84 83 Respiratory Rate 15 15 Blood Pressure Pulse Oximetry 99 99 Oxygen Delivery Mechanical Ventilation Mechanical Ventilation Fraction of Inspired Oxygen 30 30 02/09/25 20:00 02/09/25 20:00 02/09/25 20:00 Temperature 99 F Pulse Rate 83 85 Respiratory Rate 15 Blood Pressure 110/78 Pulse Oximetry 100 Oxygen Delivery Fraction of Inspired Oxygen 30 02/09/25 20:00 02/09/25 20:00 02/09/25 20:10 Temperature Pulse Rate 82 82 84 Respiratory Rate 16 16 15 Blood Pressure Pulse Oximetry Oxygen Delivery Fraction of Inspired Oxygen 02/09/25 22:00 02/09/25 22:00 02/09/25 22:00 Temperature 98.2 F Pulse Rate 91 91 91 Respiratory Rate 16 18 Blood Pressure 119/78 Pulse Oximetry 99 Oxygen Delivery Fraction of Inspired Oxygen 02/09/25 22:13 02/09/25 22:13 02/09/25 23:21 Temperature Pulse Rate 90 90 83 Respiratory Rate 18 18 Blood Pressure Pulse Oximetry 100 Oxygen Delivery Mechanical Ventilation Fraction of Inspired Oxygen 30 02/10/25 00:00 02/10/25 00:00 02/10/25 00:00 Temperature Pulse Rate 98 98 Respiratory Rate 18 Blood Pressure Pulse Oximetry 98 Oxygen Delivery Mechanical Ventilation Fraction of Inspired Oxygen 30 02/10/25 00:00 02/10/25 00:00 02/10/25 00:00 Temperature 98.8 F Pulse Rate 98 98 98 Respiratory Rate 16 18 17 Blood Pressure 121/79 Pulse Oximetry 98 Oxygen Delivery Fraction of Inspired Oxygen 02/10/25 02:00 02/10/25 02:00 02/10/25 02:00 Temperature 100 F H Pulse Rate 99 99 99 Respiratory Rate 17 17 Blood Pressure 135/76 Pulse Oximetry 99 Oxygen Delivery Fraction of Inspired Oxygen 02/10/25 02:00 02/10/25 02:01 02/10/25 02:02 Temperature Pulse Rate 99 101 H 98 Respiratory Rate 18 15 Blood Pressure Pulse Oximetry 100 Oxygen Delivery Mechanical Ventilation Fraction of Inspired Oxygen 30 02/10/25 02:10 02/10/25 04:00 02/10/25 04:00 Temperature Pulse Rate 99 106 H 106 H Respiratory Rate 15 18 Blood Pressure Pulse Oximetry 99 Oxygen Delivery Mechanical Ventilation Fraction of Inspired Oxygen 30 02/10/25 04:00 02/10/25 04:00 02/10/25 04:00 Temperature 99.7 F H Pulse Rate 96 98 Respiratory Rate 17 18 Blood Pressure 106/71 Pulse Oximetry 97 Oxygen Delivery Fraction of Inspired Oxygen 30 02/10/25 04:00 02/10/25 04:35 02/10/25 06:00 Temperature Pulse Rate 98 102 H 116 H Respiratory Rate 18 Blood Pressure Pulse Oximetry 98 Oxygen Delivery Mechanical Ventilation Fraction of Inspired Oxygen 30 02/10/25 06:00 02/10/25 06:00 02/10/25 06:00 Temperature 99.3 F Pulse Rate 110 H 115 H 115 H Respiratory Rate 22 H 22 H 22 H Blood Pressure 126/82 Pulse Oximetry 96 Oxygen Delivery Fraction of Inspired Oxygen 02/10/25 07:40 02/10/25 07:45 02/10/25 07:55 Temperature Pulse Rate 105 H 105 H 105 H Respiratory Rate 22 H 21 H Blood Pressure Pulse Oximetry 98 Oxygen Delivery Mechanical Ventilation Fraction of Inspired Oxygen 30 02/10/25 07:59 02/10/25 07:59 02/10/25 08:00 Temperature 99.2 F Pulse Rate 105 H 105 H 100 Respiratory Rate 21 H 21 H 14 Blood Pressure 119/71 Pulse Oximetry 100 Oxygen Delivery Fraction of Inspired Oxygen 02/10/25 08:00 02/10/25 08:00 02/10/25 08:00 Temperature Pulse Rate 107 H Respiratory Rate Blood Pressure Pulse Oximetry 98 Oxygen Delivery Mechanical Ventilation Fraction of Inspired Oxygen 30 30 02/10/25 08:04 02/10/25 08:10 02/10/25 09:00 Temperature Pulse Rate 110 H 108 H Respiratory Rate Blood Pressure Pulse Oximetry 98 98 Oxygen Delivery Mechanical Ventilation Mechanical Ventilation Fraction of Inspired Oxygen 30 30 30 02/10/25 09:15 02/10/25 09:15 02/10/25 09:55 Temperature Pulse Rate 109 H 106 H 117 H Respiratory Rate Blood Pressure Pulse Oximetry 97 98 Oxygen Delivery Mechanical Ventilation Mechanical Ventilation Fraction of Inspired Oxygen 30 30 02/10/25 10:00 02/10/25 10:00 02/10/25 10:00 Temperature Pulse Rate 119 H 118 H 107 H Respiratory Rate 14 14 Blood Pressure Pulse Oximetry Oxygen Delivery Fraction of Inspired Oxygen 02/10/25 10:00 02/10/25 11:57 02/10/25 12:00 Temperature 99.7 F H 98.7 F Pulse Rate 116 H 106 H 97 Respiratory Rate 19 16 Blood Pressure 146/86 H 126/83 Pulse Oximetry 97 97 95 Oxygen Delivery Mechanical Ventilation Fraction of Inspired Oxygen 30 02/10/25 12:00 02/10/25 12:00 02/10/25 12:00 Temperature Pulse Rate 97 99 Respiratory Rate 17 16 Blood Pressure Pulse Oximetry Oxygen Delivery Fraction of Inspired Oxygen 30 02/10/25 12:00 02/10/25 12:00 02/10/25 12:00 Temperature Pulse Rate 108 H 108 H Respiratory Rate 16 Blood Pressure Pulse Oximetry 95 Oxygen Delivery Mechanical Ventilation Fraction of Inspired Oxygen 30 02/10/25 14:00 02/10/25 14:00 02/10/25 14:00 Temperature Pulse Rate 95 108 H 106 H Respiratory Rate 15 18 Blood Pressure Pulse Oximetry Oxygen Delivery Fraction of Inspired Oxygen 02/10/25 14:00 02/10/25 14:16 02/10/25 14:19 Temperature 99.3 F Pulse Rate 108 H 100 94 Respiratory Rate 18 20 Blood Pressure 137/93 H Pulse Oximetry 98 98 Oxygen Delivery Mechanical Ventilation Fraction of Inspired Oxygen 30 02/10/25 15:36 02/10/25 15:40 02/10/25 15:45 Temperature Pulse Rate 106 H 108 H 103 H Respiratory Rate 22 H 22 H 15 Blood Pressure Pulse Oximetry Oxygen Delivery Fraction of Inspired Oxygen 02/10/25 15:50 02/10/25 16:00 02/10/25 16:00 Temperature 99.4 F Pulse Rate 103 H 101 H 100 Respiratory Rate 16 15 17 Blood Pressure 107/81 Pulse Oximetry 94 Oxygen Delivery Fraction of Inspired Oxygen 02/10/25 16:00 02/10/25 16:00 02/10/25 16:12 Temperature Pulse Rate 98 Respiratory Rate Blood Pressure Pulse Oximetry 94 Oxygen Delivery Mechanical Ventilation Fraction of Inspired Oxygen 30 30 Intake/Output Intake/Output: Intake & Output 02/07/25 02/08/25 02/09/25 02/10/25 23:59 23:59 23:59 23:59 Intake Total 2540.2 2569.7 1098.7 1528.6 Output Total 1500 2800 1350 2450 Balance 1040.2 -230.3 -251.3 -921.4 Meds/Results Medications: Active Medications Generic Name Dose Route Start Last Admin Trade Name Freq PRN Reason Stop Dose Admin Acetaminophen 650 mg 02/03/25 22:36 02/05/25 21:31 Acetaminophen Elixir 325 Mg/10.15 Ml Udc PO 650 mg Q6H PRN Administration Mild Pain (1-3) or Fever Dextrose 12.5 gm 02/01/25 07:23 Dextrose 50% 25 Gm/50 Ml Syringe IV PUSH PRN PRN Hypoglycemia Protocol Enoxaparin Sodium 40 mg 02/07/25 09:00 02/10/25 09:15 Enoxaparin 40 Mg/0.4 Ml Syringe SUB-Q 40 mg DAILY HAIM Administration Glucagon 1 mg 02/01/25 07:23 Glucagon For Inj 1 Mg Vial IM PRN PRN Hypoglycemia Protocol Glucose 15 gm 02/01/25 07:23 Glucose Oral Gel 15 Gm Of Glucse In 37.5 Gm Tube PO PRN PRN Hypoglycemia Protocol Dextrose 1,000 mls @ 100 mls/hr 02/01/25 07:23 Dextrose 5% 1,000 Ml IVPB PRN PRN Hypoglycemia Protocol Dexmedetomidine HCl 400 mcg in 100 mls @ 6.465 mls/hr 02/06/25 12:20 02/10/25 16:00 Precedex 400 Mcg/100 Ml IV CONT 0.6 mcg/kg/hr .[id number] HAIM 6.47 mls/hr Titration Protocol 0.6 MCG/KG/HR Propofol 100 mls @ 3.339 mls/hr 02/10/25 15:40 02/10/25 15:50 Diprivan IV CONT 15 mcg/kg/min .[id number] HAIM 3.34 mls/hr Titration Protocol 15 MCG/KG/MIN Insulin Aspart 3 - 6 units 02/01/25 12:00 02/10/25 11:33 Insulin Aspart (*Bkc) 100 Units/Ml SUB-Q Not Given Q6HR HAIM Protocol Ipratropium [place] 0.5 mg 02/04/25 14:00 02/10/25 14:15 Ipratropium Br 0.02% Inh Soln 0.5 Mg/2.5 Ml Vial INHALATION 0.5 mg Q6HRT HAIM Administration Levalbuterol HCl 0.63 mg 02/04/25 14:00 02/10/25 14:15 Levalbuterol Neb 1.25 Mg/3 Ml INHALATION 0.63 mg Q6HRT HAIM Administration Metoprolol Tartrate 5 mg 02/04/25 04:26 02/06/25 05:47 Metoprolol Tartrate Inj 5 Mg/5 Ml Vial IV PUSH 5 mg Q6H PRN Administration HR > 130 Metoprolol Tartrate 25 mg 02/04/25 09:00 02/10/25 16:12 Metoprolol Tartrate 25 Mg Tablet PO 25 mg BID HAIM Administration Multi-Ingred Cream/Lotion/Oil/Oint 1 applic 02/01/25 21:00 02/10/25 09:16 Mineral Oil/White Petrolatum Ointment EACH EYE 1 applic Q12HR HAIM Administration Ondansetron HCl 4 mg 01/31/25 16:00 Ondansetron Inj 4 Mg/2 Ml Vial IV PUSH Q4H PRN Nausea Pantoprazole Sodium 40 mg 02/01/25 09:00 02/10/25 09:15 Pantoprazole Sodium Iv 40 Mg Vial IV PUSH 40 mg Q12HR HAIM Administration Polyethylene Glycol 17 gm 02/08/25 10:41 Polyethylene Glycol 3350 17 Gm Powd.Pack PO QAM PRN constipation Sodium Chloride 10 ml 02/01/25 14:00 02/10/25 15:01 Central Line Flush IV PUSH 10 ml Q8HR HAIM Administration Sodium Chloride 20 ml 02/01/25 06:37 Central Line Flush IV PUSH PRN PRN after blood draws Radiology Results: ITS Impressions Head CT 01/31/25 15:47 Impression: No acute intracranial hemorrhage or suspicious mass effect. Chest/Abdomen/Pelvis CTA 01/31/25 15:49 IMPRESSION: Right middle and lower lobe pneumonia with dense consolidation. Left basilar atelectasis. No pulmonary embolus. No aortic dissection. Oral contrast opacifies the entirety of the colon. Supportive lines in good position. No acute pathology within the remainder of the examination, as detailed above. Chest X-Ray 02/10/25 06:19 IMPRESSION: 1. Stable airspace opacities in right mid and lower lung zones, consistent with atelectasis versus pneumonia. Labs Labs: Laboratory Results - last 24 hr 02/09/25 02/10/25 02/10/25 18:36 04:37 04:47 WBC 10.0 RBC 3.18 L Hgb 9.6 L Hct 29.4 L MCV 92.5 MCH 30.2 MCHC 32.7 RDW 16.2 H Plt Count 273 MPV 11.1 H Puncture Site Right radial ABG pH 7.498 H ABG pCO2 39.2 ABG pO2 111.1 H ABG PO2/FiO2 Ratio 3.70 ABG HCO3 29.7 H ABG O2 Saturation 98.4 ABG O2 Content 14.9 L ABG Base Excess 6.1 A-a Gradient 56.7 Oxyhemoglobin 98.0 Carboxyhemoglobin 0.3 Methemoglobin 0.3 Reduced Hemoglobin 1.4 Total Hemoglobin 10.7 L O2 Delivery Device Ventilator O2 Liters/Min Not Reportable Minute Volume Not Reportable Vent Rate 14 Vent Mode Cmv FiO2 30 Tidal Volume 300 PEEP 5 Peak Inspir Pressure Not Reportable Pressure Support Not Reportable Sodium 140 Potassium 3.9 Chloride 100 Carbon Dioxide 32 H Anion Gap 8 BUN 29 H Creatinine 0.47 L Estim Creat Clear Calc 57 Estimated GFR > 60 Glucose 105 POC Capillary Glucose 92 Calcium 9.2 Magnesium 2.2 Total Bilirubin 0.3 AST 73 H ALT 67 H Alkaline Phosphatase 109 Total Protein 8.0 Albumin 3.8 02/10/25 11:32 WBC RBC Hgb Hct MCV MCH MCHC RDW Plt Count MPV Puncture Site ABG pH ABG pCO2 ABG pO2 ABG PO2/FiO2 Ratio ABG HCO3 ABG O2 Saturation ABG O2 Content ABG Base Excess A-a Gradient Oxyhemoglobin Carboxyhemoglobin Methemoglobin Reduced Hemoglobin Total Hemoglobin O2 Delivery Device O2 Liters/Min Minute Volume Vent Rate Vent Mode FiO2 Tidal Volume PEEP Peak Inspir Pressure Pressure Support Sodium Potassium Chloride Carbon Dioxide Anion Gap BUN Creatinine Estim Creat Clear Calc Estimated GFR Glucose POC Capillary Glucose 111 H Calcium Magnesium Total Bilirubin AST ALT Alkaline Phosphatase Total Protein Albumin
[2025-02-10 19:14] LABS: Glucose Point of Care 104 mg/dl (65-105)
[2025-02-11] VITALS (36 sets, daily range): BP systolic 104–145; BP diastolic 66–92; PULSE 89–114; RESP 14–24; TEMP 36.7–37.9; O2SAT 92–99
[2025-02-11] MEDS: LEVALBUTEROL NEB 1.25 MG/3 ML 0.63 MG INHALATION ×4 (01:56→20:09)
[2025-02-11] MEDS: IPRATROPIUM BR 0.02% INH SOLN 0.5 MG/2.5 ML VIAL INHALATION ×4 (01:56→20:09)
[2025-02-11] MEDS: CENTRAL LINE FLUSH 10 ML IV PUSH ×4 (02:07→22:03)
[2025-02-11] MEDS: dexmedeTOMIDine 400 MCG/100 ML 400 MCG/100 ML BAG 6.47 MCG IV CONT (04:00)
[2025-02-11 04:58] LABS: Alveolar/Arterial O2 Gradient 73.2 mmHg; Base Excess ABG 6.9 mEq/l (+/-2.0); Carboxyhemoglobin 0.4 % THb (0-2.0); Fractional Inspired Oxygen 30 %; HCO3 ABG 32.1 mEq/l (22.0-26.0); Hematocrit 32.1 % (37.0-47.0); Hemoglobin 10.4 g/dL (12.0-15.0); Mean Corpuscular HGB Conc 32.4 g/dl (32-36); Mean Corpuscular Volume 92.5 fl (80-100); Mean Platelet Volume 10.9 fl (7.4-10.4); Methemoglobin ABG 0.1 %THb (0-1.5); Oxygen Content ABG 15.1 %vol (16.0-22.0); Oxygen Saturation ABG 96.5 % (95.0-100.0); Oxyhemoglobin 95.5 % THb (90.0-100.0); PCO2 ABG 48.4 mmHg (35.0-45.0); PO2 ABG 83.8 mmHg (80.0-100.0); PO2 FiO2 Ratio Arterial Blood 2.79 %; Platelet Count Result 332 k/mm3 (150-375); Red Blood Count 3.47 M/mm3 (4.2-5.4); Red Cell Distribution Width 16.3 % (11.5-14.5); Total Hemoglobin 11.2 g/dL (12.0-18.0); White Blood Count 10.4 K/mm3 (4.5-10.0); pH ABG 7.439 (7.350-7.450)
[2025-02-11 05:16] LABS: Site Drawn RIGHT RADIAL
[2025-02-11 05:17] LABS: Arterial Blood Gas PEEP 5 cmH2O; Arterial Blood Gas Tidal Volume 300 ml; Arterial Blood Gas Vent Mode CMV; Arterial Blood Gas Ventilator rate 14 /MIN; Device VENTILATOR
[2025-02-11 05:18] LABS: Alanine Aminotransferase 71 U/L (6-35); Albumin Level 4.1 g/dL (3.5-5.1); Alkaline Phosphatase 116 U/L (38-126); Anion Gap 7 mmol/L (4-12); Aspartate Amino Transferase 66 U/L (14-36); Bilirubin,Total 0.5 mg/dL (0.2-1.3); Blood Urea Nitrogen 29 mg/dL (7-17); Calcium 9.7 mg/dL (8.4-10.2); Carbon Dioxide 38 mmol/L (22-30); Chloride 96 mmol/L (98-107); Estimated CRCL calculation 49 ml/min; Estimated Glomerular Filt Rate > 60; Glucose 104 mg/dL (65-110); Magnesium 2.2 mg/dL (1.6-2.3); Potassium 3.6 mmol/L (3.4-5.0); Sodium 141 mmol/L (137-145)
[2025-02-11] MEDS: METOPROLOL TARTRATE 25 MG TABLET PO ×2 (08:34→17:09)
[2025-02-11] MEDS: PANTOPRAZOLE SODIUM IV 40 MG VIAL IV PUSH ×2 (08:34→20:34)
[2025-02-11] MEDS: ENOXAPARIN 40 MG/0.4 ML SYRINGE SUB-Q (08:34)
[2025-02-11] MEDS: POTASSIUM CHLORIDE 20 MEQ PACKET (FOR LIQUID) 40 MEQ FEED TUBE ×2 (08:34→14:20)
[2025-02-11] MEDS: MINERAL OIL/WHITE PETROLATUM OINTMENT 1 APPLIC EACH EYE ×2 (08:35→20:34)
--- NOTE | 2025-02-11 08:57 | P.PNINT_ITS ---
Progress Note: A&P Assessment and Plan (1) Acute hypoxic respiratory failure: Code(s): J96.01 - Acute respiratory failure with hypoxia Status: Acute Assessment and Plan: 01/31/2025: Patient presented from [facility] with hypoxia, periods of apnea, and unresponsiveness. She was brought to the ED being bagged, she did not have a gag and was unresponsive in the ED so was intubated upon arrival to the ED. central line was also inserted as she was hypotensive CT scan showed right middle and right lower lobe consolidation. Since then patient has also received decent amount of IV fluids 02/05-accidentally got extubated during turning by the nursing staff. She was intubated 02/06 failed weaning trial. patient kept on going into apnea ventilation. Precedex rate was decreased and patient is now on ASV. 02/07 weaning trial was attempted again. Patient had high RSBI on PSV 03/19. Patient was erratically breathing agitated and had drop in sats. Breathing trial was aborted 02/08 failed weaning trial due to high RSBI 02/09 I attempted a SBT weaning trial this morning. On 03/19 patient respiratory rate was in 40s with tidal volume and 100s. I had to increase the pressure support to 12 to get adequate RSBI even then patient's breathing was at. patient is not a candidate for extubation at this point. She will not be able to use BiPAP considering cerebral palsy and inability to communicate. I will try to continue weaning but I anticipate that if patient does not get extubated then she may need trach for continued ventilatory support 02/10 patient failed weaning trial again due to respiratory rate in high 40s and tidal volumes in 100s.. She requires pressure support of 12/5 for adequate ventilatory numbers. She is not a candidate for BiPAP. I anticipate patient will likely need tracheostomy. I called his healthcare power deputy attorney general who is on vacation at this time I will speak him on Wednesday. 02/11 Lasix again today and plan for weaning trial again today -currently on CMV mode of ventilation, peep of 5 and 30 % FiO2 -ABGs and chest x-ray reviewed, ventilator adjusted by decreasing the rate -continue bronchodilators and Mucomyst nebulizer -completed course of Zosyn and azithromycin (2) AMS (altered mental status): Qualifiers: Altered mental status type: unspecified Qualified Code(s): R41.82 - Altered mental status, unspecified Code(s): R41.82 - Altered mental status, unspecified Status: Acute Assessment and Plan: Encephalopathy could be related to hypoxia, hypercapnia, pneumonia/infection/hypotension, could be related to medication -head CT negative at the time of presentation -currently intubated -offer send fentanyl and on Precedex -upon review of chart patient appears to be nonverbal at baseline and communicates her needs with gestures. She walks around in the hallways and is able to eat modified diet (3) Pneumonia: Qualifiers: Pneumonia type: due to unspecified organism Laterality: right Lung location: unspecified part of lung Qualified Code(s): J18.9 - Pneumonia, unspecified organism Code(s): J18.9 - Pneumonia, unspecified organism Status: Acute Assessment and Plan: Chest x-ray and CTA chest show right lower lobe consolidation -according the [facility] records: Repeat CT chest showed interval development of new airspace opacities raising concern for aspiration pneumonia. She was transition to Zosyn from cefepime. MBS performed on 01/26 at [facility] which showed no evidence of aspiration despite coughing especially with swallowing. - completed course of Zosyn, azithromycin (01/31) -MRSA screen is negative, vancomycin discontinued (02/01) (4) Sepsis: Code(s): A41.9 - Sepsis, unspecified organism Status: Acute Assessment and Plan: Patient presented with altered mental status, hypoxia, apnea, pneumonia. -lactic acid was normal -blood pressures are borderline -patient was adequately fluid-resuscitated -status post albumin for volume expansion -off Levophed, -continue to monitor urine output and renal function - she has been receiving Lasix as needed depending on her volume status (5) Cerebral palsy: Code(s): G80.9 - Cerebral palsy, unspecified Status: Acute Assessment and Plan: Patient with cerebral palsy, mild intellectual disability, schizophrenia, nonverbal at baseline according the chart -patient on risperidone, will restart prior to extubation as she is currently sedated and intubated (6) Anemia: Code(s): D64.9 - Anemia, unspecified Status: Acute Assessment and Plan: Patient admitted with a hemoglobin of 10.3 on 01/31 -02/01: Hemoglobin dropped to 7.7, a repeat CBC was done which showed a hemoglobin of 7.3 -will check stools for occult blood, -folic acid and vitamin B12 level within normal limits -low iron levels, low TIBC, will give Venofer -LDH is normal, haptoglobin is pending -Protonix IV q.12 hours -continue to monitor (7) Electrolyte imbalance: Code(s): E87.8 - Other disorders of electrolyte and fluid balance, not elsewhere classified Status: Acute Assessment and Plan: Continue free water flush to 100 mL Potassium improved after placement (8) Sinus tachycardia: Code(s): R00.0 - Tachycardia, unspecified Status: Acute Assessment and Plan: 02/04: Patient developed SVT/sinus tachycardia overnight with rates in the 180- 200s. Was given IV metoprolol x1 with improvement which brought her rate start to 130s. -could be multifactorial, related to sepsis, anemia, coronary artery disease -TSH normal -will continue metoprolol -currently sinus tachycardia monitor - mild elevation in troponin level with the levels have trended down -cardiology consult 02/02/2025: Echocardiogram Summary 1. Complete two-dimensional, color flow and Doppler transthoracic echocardiogram is performed. 2. Left ventricular chamber dimension is normal. 3. Left ventricular systolic function is normal, estimated at 60-65%. 4. The left ventricular diastolic function is grade I diastolic dysfunction. 5. E/e' 7 is not elevated. 6. There is mild aortic valve sclerosis. 7. There is trace tricuspid valve regurgitation. 8. Mild pulmonary hypertension, estimated pulmonary arterial systolic pressure is 41 mmHg. (9) Constipation: Code(s): K59.00 - Constipation, unspecified Status: Acute Assessment and Plan: 02/04: KUB showed moderate fecal retention -improved with laxatives as patient is now having bowel movements. 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 I have requested them to call me when he is back on Wednesday. Critical Care Time Spent: 30 minutes Due to a high probability of clinically significant, life threatening deterioration, the patient required my highest level of preparedness to intervene emergently and I personally spent this critical care time directly and personally managing the patient. This critical care time included obtaining a history; examining the patient; pulse oximetry; ordering and review of studies; arranging urgent treatment with development of a management plan; evaluation of patient's response to treatment; frequent reassessment; and discussions with other providers. It was exclusive of separately billable procedures and treating other patients and teaching time. Please see Assessment and Plan section and the rest of the note for further information on patient assessment and treatment This dictation may have been done utilizing a voice recognition system. Attempts have been made to correct errors. However, there may be uncorrected grammatical, spelling, and recognitions errors present. Subjective Date/time seen: 02/11/25 no significant change overnight. Continues to be on condition. Sedated with Precedex and propofol. Tolerating tube feeds. Good urine output in response to Lasix. Vital signs stable. She is having bowel movements. Interval history: Reason for consult: Acute respiratory failure, pneumonia, altered mental status, unresponsiveness, anemia Review of Systems Review of Systems: ROS unobtainable: Yes unobtainable due to endotracheal tube, unobtainable due to medical condition and unobtainable due to mental status Exam Narrative: General: Petite female/malnourished, in no acute distress HEENT:? Pupils are pinpoint, sluggish, ETT in place Neck:? Supple Respiratory:? Coarse breath sounds bilaterally, rales on right base, no wheezing, adequate air entry otherwise Cardiac:? S1-S2 normal, regular rate and rhythm Abdomen:? Soft, nontender, nondistended, hypoactive bowel sounds Extremities:? Trace edema, bilateral pedal pulses are palpable Neuro:? Intubated, sedated, eyes are open and she moves all 4 extremities, tries to pull lines and try to get out of bed. Nodes her head on calling her name but does not follow any command. She has a decent cough but she does not follow any commands. On pressure support ventilation trial she goes into apnea ventilation intermittent Skin:? No skin lesions noted Psych:? Unable to assess at this time Objective Data Vital Signs Vital Signs: Vital Signs - 24 hr 02/10/25 09:00 02/10/25 09:15 02/10/25 09:15 Temperature Pulse Rate 109 H 106 H Respiratory Rate Blood Pressure Pulse Oximetry 97 Oxygen Delivery Mechanical Ventilation Fraction of Inspired Oxygen 30 30 02/10/25 09:55 02/10/25 10:00 02/10/25 10:00 Temperature Pulse Rate 117 H 119 H 118 H Respiratory Rate 14 14 Blood Pressure Pulse Oximetry 98 Oxygen Delivery Mechanical Ventilation Fraction of Inspired Oxygen 30 02/10/25 10:00 02/10/25 10:00 02/10/25 11:57 Temperature 37.6 C H Pulse Rate 107 H 116 H 106 H Respiratory Rate 19 Blood Pressure 146/86 H Pulse Oximetry 97 97 Oxygen Delivery Mechanical Ventilation Fraction of Inspired Oxygen 30 02/10/25 12:00 02/10/25 12:00 02/10/25 12:00 Temperature 37.1 C Pulse Rate 97 97 Respiratory Rate 16 17 Blood Pressure 126/83 Pulse Oximetry 95 Oxygen Delivery Fraction of Inspired Oxygen 30 02/10/25 12:00 02/10/25 12:00 02/10/25 12:00 Temperature Pulse Rate 99 108 H Respiratory Rate 16 Blood Pressure Pulse Oximetry 95 Oxygen Delivery Mechanical Ventilation Fraction of Inspired Oxygen 30 02/10/25 12:00 02/10/25 14:00 02/10/25 14:00 Temperature Pulse Rate 108 H 95 108 H Respiratory Rate 16 15 18 Blood Pressure Pulse Oximetry Oxygen Delivery Fraction of Inspired Oxygen 02/10/25 14:00 02/10/25 14:00 02/10/25 14:16 Temperature 37.4 C Pulse Rate 106 H 108 H 100 Respiratory Rate 18 20 Blood Pressure 137/93 H Pulse Oximetry 98 Oxygen Delivery Fraction of Inspired Oxygen 02/10/25 14:19 02/10/25 15:36 02/10/25 15:40 Temperature Pulse Rate 94 106 H 108 H Respiratory Rate 22 H 22 H Blood Pressure Pulse Oximetry 98 Oxygen Delivery Mechanical Ventilation Fraction of Inspired Oxygen 30 02/10/25 15:45 02/10/25 15:50 02/10/25 16:00 Temperature Pulse Rate 103 H 103 H 101 H Respiratory Rate 15 16 15 Blood Pressure Pulse Oximetry Oxygen Delivery Fraction of Inspired Oxygen 02/10/25 16:00 02/10/25 16:00 02/10/25 16:00 Temperature 37.4 C Pulse Rate 100 Respiratory Rate 17 Blood Pressure 107/81 Pulse Oximetry 94 94 Oxygen Delivery Mechanical Ventilation Fraction of Inspired Oxygen 30 30 02/10/25 16:00 02/10/25 16:12 02/10/25 16:51 Temperature Pulse Rate 99 98 91 Respiratory Rate Blood Pressure Pulse Oximetry 94 Oxygen Delivery Mechanical Ventilation Fraction of Inspired Oxygen 30 02/10/25 17:50 02/10/25 18:00 02/10/25 18:00 Temperature 37.2 C Pulse Rate 94 95 94 Respiratory Rate 16 16 16 Blood Pressure 126/80 Pulse Oximetry 94 Oxygen Delivery Fraction of Inspired Oxygen 02/10/25 18:00 02/10/25 19:47 02/10/25 19:47 Temperature Pulse Rate 93 92 92 Respiratory Rate 14 Blood Pressure Pulse Oximetry 94 Oxygen Delivery Mechanical Ventilation Fraction of Inspired Oxygen 30 02/10/25 19:58 02/10/25 20:00 02/10/25 20:00 Temperature Pulse Rate 94 93 93 Respiratory Rate 14 15 Blood Pressure Pulse Oximetry 95 Oxygen Delivery Mechanical Ventilation Fraction of Inspired Oxygen 30 02/10/25 20:00 02/10/25 20:00 02/10/25 20:00 Temperature 37.2 C Pulse Rate 92 93 Respiratory Rate 15 17 Blood Pressure 118/80 Pulse Oximetry 95 Oxygen Delivery Fraction of Inspired Oxygen 02/10/25 20:00 02/10/25 22:00 02/10/25 22:00 Temperature 37.7 C H Pulse Rate 93 93 93 Respiratory Rate 17 18 Blood Pressure 98/70 L Pulse Oximetry 95 Oxygen Delivery Fraction of Inspired Oxygen 02/10/25 22:00 02/10/25 22:00 02/10/25 23:00 Temperature Pulse Rate 93 93 92 Respiratory Rate 17 18 Blood Pressure Pulse Oximetry 97 Oxygen Delivery Mechanical Ventilation Fraction of Inspired Oxygen 02/11/25 00:00 02/11/25 00:00 02/11/25 00:00 Temperature Pulse Rate 97 97 Respiratory Rate 20 Blood Pressure Pulse Oximetry 94 Oxygen Delivery Mechanical Ventilation Fraction of Inspired Oxygen 30 02/11/25 00:00 02/11/25 00:00 02/11/25 00:00 Temperature 37.0 C Pulse Rate 97 94 94 Respiratory Rate 20 20 20 Blood Pressure 135/74 Pulse Oximetry 94 Oxygen Delivery Fraction of Inspired Oxygen 02/11/25 01:56 02/11/25 01:56 02/11/25 02:00 Temperature Pulse Rate 91 91 96 Respiratory Rate 14 15 Blood Pressure Pulse Oximetry 92 Oxygen Delivery Mechanical Ventilation Fraction of Inspired Oxygen 30 02/11/25 02:00 02/11/25 02:00 02/11/25 02:00 Temperature 37.2 C Pulse Rate 96 96 96 Respiratory Rate 15 15 Blood Pressure 111/74 Pulse Oximetry 97 Oxygen Delivery Fraction of Inspired Oxygen 02/11/25 04:00 02/11/25 04:00 02/11/25 04:00 Temperature Pulse Rate 112 H 112 H Respiratory Rate 15 Blood Pressure Pulse Oximetry 97 Oxygen Delivery Mechanical Ventilation Fraction of Inspired Oxygen 30 30 02/11/25 04:00 02/11/25 04:00 02/11/25 04:00 Temperature 36.7 C Pulse Rate 114 H 114 H 114 H Respiratory Rate 16 16 16 Blood Pressure 108/70 Pulse Oximetry 95 Oxygen Delivery Fraction of Inspired Oxygen 02/11/25 04:00 02/11/25 04:40 02/11/25 06:00 Temperature Pulse Rate 114 H 97 101 H Respiratory Rate 17 Blood Pressure Pulse Oximetry 92 Oxygen Delivery Mechanical Ventilation Fraction of Inspired Oxygen 30 02/11/25 06:00 02/11/25 06:00 02/11/25 06:00 Temperature 37.3 C Pulse Rate 101 H 101 H 101 H Respiratory Rate 16 16 16 Blood Pressure 119/73 Pulse Oximetry 94 Oxygen Delivery Fraction of Inspired Oxygen 02/11/25 07:42 02/11/25 07:50 02/11/25 07:50 Temperature 37.1 C Pulse Rate 93 96 96 Respiratory Rate 18 14 Blood Pressure 128/83 Pulse Oximetry 96 93 Oxygen Delivery Mechanical Ventilation Fraction of Inspired Oxygen 30 02/11/25 08:00 02/11/25 08:00 02/11/25 08:00 Temperature Pulse Rate 97 Respiratory Rate 18 Blood Pressure Pulse Oximetry 99 Oxygen Delivery Mechanical Ventilation Fraction of Inspired Oxygen 30 30 02/11/25 08:05 02/11/25 08:23 02/11/25 08:25 Temperature Pulse Rate 97 112 H 110 H Respiratory Rate 18 19 Blood Pressure Pulse Oximetry 99 Oxygen Delivery Mechanical Ventilation Fraction of Inspired Oxygen 30 02/11/25 08:25 02/11/25 08:34 Temperature Pulse Rate 105 H Respiratory Rate Blood Pressure Pulse Oximetry Oxygen Delivery Fraction of Inspired Oxygen 30 Intake/Output Intake/Output: Intake & Output 02/08/25 02/09/25 02/10/25 02/11/25 23:59 23:59 23:59 23:59 Intake Total 2569.7 1098.7 1587.9 614.3 Output Total 2800 1350 2450 460 Balance -230.3 -251.3 -862.1 154.3 Meds/Results Medications: Active Medications Generic Name Dose Route Start Last Admin Trade Name Freq PRN Reason Stop Dose Admin Acetaminophen 650 mg 02/03/25 22:36 02/05/25 21:31 Acetaminophen Elixir 325 Mg/10.15 Ml Udc PO 650 mg Q6H PRN Administration Mild Pain (1-3) or Fever Dextrose 12.5 gm 02/01/25 07:23 Dextrose 50% 25 Gm/50 Ml Syringe IV PUSH PRN PRN Hypoglycemia Protocol Enoxaparin Sodium 40 mg 02/07/25 09:00 02/11/25 08:34 Enoxaparin 40 Mg/0.4 Ml Syringe SUB-Q 40 mg DAILY HAIM Administration Furosemide 40 mg 02/11/25 12:00 Furosemide Inj 40 Mg/4 Ml Vial IV PUSH 02/11/25 12:01 ONCE ONE Glucagon 1 mg 02/01/25 07:23 Glucagon For Inj 1 Mg Vial IM PRN PRN Hypoglycemia Protocol Glucose 15 gm 02/01/25 07:23 Glucose Oral Gel 15 Gm Of Glucse In 37.5 Gm Tube PO PRN PRN Hypoglycemia Protocol Dextrose 1,000 mls @ 100 mls/hr 02/01/25 07:23 Dextrose 5% 1,000 Ml IVPB PRN PRN Hypoglycemia Protocol Dexmedetomidine HCl 400 mcg in 100 mls @ 6.465 mls/hr 02/06/25 12:20 02/11/25 08:00 Precedex 400 Mcg/100 Ml IV CONT 0.6 mcg/kg/hr .[id number] HAIM 6.47 mls/hr Titration Protocol 0.6 MCG/KG/HR Propofol 100 mls @ 3.339 mls/hr 02/10/25 15:40 02/11/25 08:05 Diprivan IV CONT 0 mcg/kg/min .[id number] HAIM 0 mls/hr Titration Protocol 15 MCG/KG/MIN Insulin Aspart 3 - 6 units 02/01/25 12:00 02/11/25 05:55 Insulin Aspart (*Bkc) 100 Units/Ml SUB-Q Not Given Q6HR HAIM Protocol Ipratropium [place] 0.5 mg 02/04/25 14:00 02/11/25 07:48 Ipratropium Br 0.02% Inh Soln 0.5 Mg/2.5 Ml Vial INHALATION 0.5 mg Q6HRT HAIM Administration Levalbuterol HCl 0.63 mg 02/04/25 14:00 02/11/25 07:48 Levalbuterol Neb 1.25 Mg/3 Ml INHALATION 0.63 mg Q6HRT HAIM Administration Metoprolol Tartrate 5 mg 02/04/25 04:26 02/06/25 05:47 Metoprolol Tartrate Inj 5 Mg/5 Ml Vial IV PUSH 5 mg Q6H PRN Administration HR > 130 Metoprolol Tartrate 25 mg 02/04/25 09:00 02/11/25 08:34 Metoprolol Tartrate 25 Mg Tablet PO 25 mg BID HAIM Administration Multi-Ingred Cream/Lotion/Oil/Oint 1 applic 02/01/25 21:00 02/11/25 08:35 Mineral Oil/White Petrolatum Ointment EACH EYE 1 applic Q12HR HAIM Administration Ondansetron HCl 4 mg 01/31/25 16:00 Ondansetron Inj 4 Mg/2 Ml Vial IV PUSH Q4H PRN Nausea Pantoprazole Sodium 40 mg 02/01/25 09:00 02/11/25 08:34 Pantoprazole Sodium Iv 40 Mg Vial IV PUSH 40 mg Q12HR HAIM Administration Polyethylene Glycol 17 gm 02/08/25 10:41 Polyethylene Glycol 3350 17 Gm Powd.Pack PO QAM PRN constipation Potassium Chloride 40 meq 02/11/25 07:40 02/11/25 08:34 Potassium Chloride 20 Meq Packet (For Liquid) FEED TUBE 02/11/25 13:41 40 m eq Q6H HAIM Administration Sodium Chloride 10 ml 02/01/25 14:00 02/11/25 05:56 Central Line Flush IV PUSH 10 ml Q8HR HAIM Administration Sodium Chloride 20 ml 02/01/25 06:37 Central Line Flush IV PUSH PRN PRN after blood draws Radiology Results: ITS Impressions Head CT 01/31/25 15:47 Impression: No acute intracranial hemorrhage or suspicious mass effect. Chest/Abdomen/Pelvis CTA 01/31/25 15:49 IMPRESSION: Right middle and lower lobe pneumonia with dense consolidation. Left basilar atelectasis. No pulmonary embolus. No aortic dissection. Oral contrast opacifies the entirety of the colon. Supportive lines in good position. No acute pathology within the remainder of the examination, as detailed above. Chest X-Ray 02/11/25 06:46 IMPRESSION: Small right-sided pleural effusion. Limited evaluation of the tip of the endotracheal tube location as the danay is obscured by overlying devices and wires. Remaining supportive lines and tubes in good radiographic position. Labs Labs: Laboratory Results - last 24 hr 02/10/25 02/10/25 02/11/25 11:32 19:10 04:40 WBC 10.4 H RBC 3.47 L Hgb 10.4 L Hct 32.1 L MCV 92.5 MCH 30.0 MCHC 32.4 RDW 16.3 H Plt Count 332 MPV 10.9 H Puncture Site Right radial ABG pH 7.439 ABG pCO2 48.4 H ABG pO2 83.8 ABG PO2/FiO2 Ratio 2.79 ABG HCO3 32.1 H ABG O2 Saturation 96.5 ABG O2 Content 15.1 L ABG Base Excess 6.9 A-a Gradient 73.2 Oxyhemoglobin 95.5 Carboxyhemoglobin 0.4 Methemoglobin 0.1 Reduced Hemoglobin 4.0 Total Hemoglobin 11.2 L O2 Delivery Device Ventilator O2 Liters/Min Not Reportable Minute Volume Not Reportable Vent Rate 14 Vent Mode Cmv FiO2 30 Tidal Volume 300 PEEP 5 Peak Inspir Pressure Not Reportable Pressure Support Not Reportable Sodium 141 Potassium 3.6 Chloride 96 L Carbon Dioxide 38 H Anion Gap 7 BUN 29 H Creatinine 0.53 L Estim Creat Clear Calc 49 Estimated GFR > 60 Glucose 104 POC Capillary Glucose 111 H 104 Calcium 9.7 Magnesium 2.2 Total Bilirubin 0.5 AST 66 H ALT 71 H Alkaline Phosphatase 116 Total Protein 8.0 Albumin 4.1 Quality VTE Prophylaxis VTE prophylaxis: mechanical ordered and pharmacologic ordered
[2025-02-11] MEDS: FUROSEMIDE INJ 40 MG/4 ML VIAL IV PUSH (11:20)
[2025-02-11 11:40] LABS: Glucose Point of Care 93 mg/dl (65-105)
[2025-02-11 17:12] LABS: Glucose Point of Care 81 mg/dl (65-105)
[2025-02-11] MEDS: PROPOFOL IV EMULSION 100 ML 1.11 MG IV CONT (18:00)
[2025-02-11] MEDS: dexmedeTOMIDine 400 MCG/100 ML 400 MCG/100 ML BAG 5.39 MCG IV CONT (18:00)
--- NOTE | 2025-02-11 19:12 | PM.IMPN ---
Progress Note: A&P Assessment and Plan (1) Acute hypoxic respiratory failure: Code(s): J96.01 - Acute respiratory failure with hypoxia Status: Acute Assessment and Plan: Patient presented on 01/31 from [facility] with hypoxia, periods of apnea, and unresponsiveness. She was brought to the ED being bagged, she did not have a gag and was unresponsive in the ED so was intubated upon arrival to the ED. central line was also inserted as she was hypotensive CT scan showed right middle and right lower lobe consolidation. Patient was fluid resuscitated 02/05-accidentally got extubated during turning by the nursing staff. She was re-intubated Patient has failed multiple weaning trials -ABGs and chest x-ray reviewed -continue xopenex and atrovent -completed course of abx (last dose on 02/07) -Lasix IV prn Vent management per cath lab technologist. (2) AMS (altered mental status): Qualifiers: Altered mental status type: unspecified Qualified Code(s): R41.82 - Altered mental status, unspecified Code(s): R41.82 - Altered mental status, unspecified Status: Acute Assessment and Plan: Encephalopathy could be related to hypoxia, hypercapnia, pneumonia/infection/hypotension, could be related to medication. Baseline function: nonverbal and communicates her needs with gestures. She walks in hallways and is able to eat modified diet Head CT negative at the time of presentation Remains intubated Follow (3) Pneumonia: Qualifiers: Pneumonia type: due to unspecified organism Laterality: right Lung location: unspecified part of lung Qualified Code(s): J18.9 - Pneumonia, unspecified organism Code(s): J18.9 - Pneumonia, unspecified organism Status: Acute Assessment and Plan: Chest x-ray and CTA chest show right lower lobe consolidation -according the [facility] records: Repeat CT chest showed interval development of new airspace opacities raising concern for aspiration pneumonia. She was transition to Zosyn from cefepime. MBS performed on 01/26 at [facility] which showed no evidence of aspiration despite coughing especially with swallowing. MRSA screen is negative, vancomycin discontinued (02/01) Completed course of Zosyn, azithromycin (last dose 02/07) May be intermittently aspirating. Follow. Plan to repeat swallow study when able (4) Sepsis: Code(s): A41.9 - Sepsis, unspecified organism Status: Acute Assessment and Plan: Patient presented with altered mental status, hypoxia, apnea, pneumonia. -lactic acid was normal -blood pressures was borderline -patient was adequately fluid-resuscitated -status post albumin for volume expansion -off Levophed -continue to monitor urine output and renal function -Lasix IV prn (5) Cerebral palsy: Code(s): G80.9 - Cerebral palsy, unspecified Status: Acute Assessment and Plan: Patient with cerebral palsy, mild intellectual disability, schizophrenia, nonverbal at baseline according the chart Patient on risperidone, clomipraminne. Resume when able (6) Anemia: Code(s): D64.9 - Anemia, unspecified Status: Acute Assessment and Plan: Patient admitted with a hemoglobin of 10.3 on 01/31 Hemoglobin dropped to 7.3 on 02/01 Stools for occult blood negative. LDH and haptoglobin normal B12/Folate levels normal. Iron and TIBC low c/w anemia of chronic disease. Venofer given. Hgb batter and back up to 10 Protonix IV q.12 hours Continue to monitor (7) Electrolyte imbalance: Code(s): E87.8 - Other disorders of electrolyte and fluid balance, not elsewhere classified Status: Acute Assessment and Plan: Free water flushes for hypernatremia; Na bettet now (8) Sinus tachycardia: Code(s): R00.0 - Tachycardia, unspecified Status: Acute Assessment and Plan: 02/04: Patient developed SVT/sinus tachycardia overnight with rates in the 180-200s. Was given IV metoprolol x1 with improvement which brought her rate start to 130s. Could be multifactorial, related to sepsis, anemia, coronary artery disease and being off her metoprolol TSH normal. Echo 02/02 showing normal LV systolic function (EF60-65%) and grade I diastolic dysfunction with mild valve disease and mild pHTN. Metoprolol resumed. Mild elevation in troponin level with the levels have trended down Cardiology consult Will continue metoprolol (9) Constipation: Code(s): K59.00 - Constipation, unspecified Status: Acute Assessment and Plan: KUB showed moderate fecal retention on 02/04 Improved with laxatives as patient is now having bowel movements. MiraLax prn now Plan DVT prophylaxis: Lovenox Stress ulcer prophylaxis: Protonix IV q.12 hours Nutrition: Tolerating tube feeds Code Status: Full -patient is a guardian/bear of the state (Mateo Warren) Subjective Date/time seen: 02/11/25 19:12 Interval history: 69yo female with cerebral palsy, nonverbal, osteoporosis, mild intellectual disabilities, dyslipidemia and schizophrenia here with altered mental status and unresponsiveness. Patient remains on mechanical ventilation. Undergoing another breathing trial today. Minimal secretions. Review of Systems Review of Systems: ROS unobtainable: Yes unobtainable due to medical condition Exam Narrative: Tm 100 120/81 9016 94% MV Gen - intubated. appears comfortable HEENT -dysconjugate gaze noted. ET tube and OG tube secured. Neck -right IJ triple-lumen catheter secured. Chest - clear anteriorly. CV - RRR S1/S2. Telemetry showing PVCs Abd - soft. Positive bowel sounds. Nondistended. -Arredondo catheter secured draining clear yellow urine Ext - No pedal edema. 2+ DP pulses bilaterally. Neuro -alert. Psych -remaining calm Skin - Warm and dry Objective Data Vital Signs Vital Signs: Vital Signs - 24 hr 02/10/25 19:47 02/10/25 19:47 02/10/25 19:58 Temperature Pulse Rate 92 92 94 Respiratory Rate 14 14 Blood Pressure Pulse Oximetry 94 Oxygen Delivery Mechanical Ventilation Fraction of Inspired Oxygen 30 02/10/25 20:00 02/10/25 20:00 02/10/25 20:00 Temperature Pulse Rate 93 93 Respiratory Rate 15 Blood Pressure Pulse Oximetry 95 Oxygen Delivery Mechanical Ventilation Fraction of Inspired Oxygen 30 30 02/10/25 20:00 02/10/25 20:00 02/10/25 20:00 Temperature 98.9 F Pulse Rate 92 93 93 Respiratory Rate 15 17 17 Blood Pressure 118/80 Pulse Oximetry 95 Oxygen Delivery Fraction of Inspired Oxygen 02/10/25 22:00 02/10/25 22:00 02/10/25 22:00 Temperature 99.9 F H Pulse Rate 93 93 93 Respiratory Rate 18 17 Blood Pressure 98/70 L Pulse Oximetry 95 Oxygen Delivery Fraction of Inspired Oxygen 02/10/25 22:00 02/10/25 23:00 02/11/25 00:00 Temperature Pulse Rate 93 92 97 Respiratory Rate 18 20 Blood Pressure Pulse Oximetry 97 94 Oxygen Delivery Mechanical Ventilation Mechanical Ventilation Fraction of Inspired Oxygen 30 30 02/11/25 00:00 02/11/25 00:00 02/11/25 00:00 Temperature 98.6 F Pulse Rate 97 97 Respiratory Rate 20 Blood Pressure 135/74 Pulse Oximetry 94 Oxygen Delivery Fraction of Inspired Oxygen 30 02/11/25 00:00 02/11/25 00:00 02/11/25 01:56 Temperature Pulse Rate 94 94 91 Respiratory Rate 20 20 Blood Pressure Pulse Oximetry 92 Oxygen Delivery Mechanical Ventilation Fraction of Inspired Oxygen 30 02/11/25 01:56 02/11/25 02:00 02/11/25 02:00 Temperature Pulse Rate 91 96 96 Respiratory Rate 14 15 Blood Pressure Pulse Oximetry Oxygen Delivery Fraction of Inspired Oxygen 02/11/25 02:00 02/11/25 02:00 02/11/25 04:00 Temperature 99 F Pulse Rate 96 96 112 H Respiratory Rate 15 15 15 Blood Pressure 111/74 Pulse Oximetry 97 97 Oxygen Delivery Mechanical Ventilation Fraction of Inspired Oxygen 30 02/11/25 04:00 02/11/25 04:00 02/11/25 04:00 Temperature 98.1 F Pulse Rate 112 H 114 H Respiratory Rate 16 Blood Pressure 108/70 Pulse Oximetry 95 Oxygen Delivery Fraction of Inspired Oxygen 30 02/11/25 04:00 02/11/25 04:00 02/11/25 04:00 Temperature Pulse Rate 114 H 114 H 114 H Respiratory Rate 16 16 17 Blood Pressure Pulse Oximetry Oxygen Delivery Fraction of Inspired Oxygen 02/11/25 04:40 02/11/25 06:00 02/11/25 06:00 Temperature 99.1 F Pulse Rate 97 101 H 101 H Respiratory Rate 16 Blood Pressure 119/73 Pulse Oximetry 92 94 Oxygen Delivery Mechanical Ventilation Fraction of Inspired Oxygen 30 02/11/25 06:00 02/11/25 06:00 02/11/25 07:42 Temperature 98.8 F Pulse Rate 101 H 101 H 93 Respiratory Rate 16 16 18 Blood Pressure 128/83 Pulse Oximetry 96 Oxygen Delivery Fraction of Inspired Oxygen 02/11/25 07:50 02/11/25 07:50 02/11/25 08:00 Temperature Pulse Rate 96 96 Respiratory Rate 14 Blood Pressure Pulse Oximetry 93 99 Oxygen Delivery Mechanical Ventilation Mechanical Ventilation Fraction of Inspired Oxygen 30 30 02/11/25 08:00 02/11/25 08:00 02/11/25 08:00 Temperature Pulse Rate 97 96 Respiratory Rate 18 Blood Pressure Pulse Oximetry Oxygen Delivery Fraction of Inspired Oxygen 30 02/11/25 08:05 02/11/25 08:23 02/11/25 08:25 Temperature Pulse Rate 97 112 H 110 H Respiratory Rate 18 19 Blood Pressure Pulse Oximetry 99 Oxygen Delivery Mechanical Ventilation Fraction of Inspired Oxygen 30 02/11/25 08:25 02/11/25 08:34 02/11/25 09:25 Temperature Pulse Rate 105 H 107 H Respiratory Rate 24 H Blood Pressure Pulse Oximetry Oxygen Delivery Fraction of Inspired Oxygen 30 02/11/25 09:29 02/11/25 10:00 02/11/25 10:00 Temperature Pulse Rate 93 100 Respiratory Rate 18 Blood Pressure 104/66 Pulse Oximetry 97 Oxygen Delivery Fraction of Inspired Oxygen 30 02/11/25 10:00 02/11/25 10:30 02/11/25 11:42 Temperature 99.3 F Pulse Rate 100 94 93 Respiratory Rate 20 18 Blood Pressure 119/92 H Pulse Oximetry 95 94 Oxygen Delivery Mechanical Ventilation Fraction of Inspired Oxygen 30 02/11/25 12:00 02/11/25 12:00 02/11/25 12:00 Temperature Pulse Rate 93 Respiratory Rate 14 Blood Pressure Pulse Oximetry 94 Oxygen Delivery Mechanical Ventilation Fraction of Inspired Oxygen 30 02/11/25 12:00 02/11/25 12:30 02/11/25 12:41 Temperature Pulse Rate 91 92 94 Respiratory Rate 14 14 Blood Pressure Pulse Oximetry Oxygen Delivery Fraction of Inspired Oxygen 02/11/25 12:41 02/11/25 14:00 02/11/25 14:00 Temperature 99.7 F H Pulse Rate 94 103 H 104 H Respiratory Rate 14 14 18 Blood Pressure 113/78 Pulse Oximetry 93 Oxygen Delivery Fraction of Inspired Oxygen 02/11/25 14:00 02/11/25 14:00 02/11/25 15:00 Temperature Pulse Rate 104 H 104 H 105 H Respiratory Rate 18 Blood Pressure Pulse Oximetry 94 Oxygen Delivery Mechanical Ventilation Fraction of Inspired Oxygen 30 02/11/25 15:00 02/11/25 16:00 02/11/25 16:00 Temperature Pulse Rate 105 H 93 91 Respiratory Rate 16 15 15 Blood Pressure Pulse Oximetry Oxygen Delivery Fraction of Inspired Oxygen 02/11/25 16:00 02/11/25 16:00 02/11/25 16:00 Temperature 99.5 F Pulse Rate 113 H 105 H Respiratory Rate 20 Blood Pressure 145/89 H Pulse Oximetry 97 94 Oxygen Delivery Mechanical Ventilation Fraction of Inspired Oxygen 30 02/11/25 16:00 02/11/25 16:42 02/11/25 17:09 Temperature Pulse Rate 100 96 Respiratory Rate Blood Pressure Pulse Oximetry 97 Oxygen Delivery Mechanical Ventilation Fraction of Inspired Oxygen 30 30 02/11/25 18:00 02/11/25 18:00 02/11/25 18:00 Temperature Pulse Rate 89 89 91 Respiratory Rate 14 14 16 Blood Pressure Pulse Oximetry Oxygen Delivery Fraction of Inspired Oxygen 02/11/25 18:00 02/11/25 18:00 02/11/25 18:00 Temperature 100 F H Pulse Rate 91 92 90 Respiratory Rate 16 16 Blood Pressure 120/81 Pulse Oximetry 94 Oxygen Delivery Fraction of Inspired Oxygen Intake/Output Intake/Output: Intake & Output 02/08/25 02/09/25 02/10/25 02/11/25 23:59 23:59 23:59 23:59 Intake Total 2569.7 1098.7 1587.9 1644.8 Output Total 2800 1350 2450 1460 Balance -230.3 -251.3 -862.1 184.8 Meds/Results Medications: Active Medications Generic Name Dose Route Start Last Admin Trade Name Freq PRN Reason Stop Dose Admin Acetaminophen 650 mg 02/03/25 22:36 02/05/25 21:31 Acetaminophen Elixir 325 Mg/10.15 Ml Udc PO 650 mg Q6H PRN Administration Mild Pain (1-3) or Fever Dextrose 12.5 gm 02/01/25 07:23 Dextrose 50% 25 Gm/50 Ml Syringe IV PUSH PRN PRN Hypoglycemia Protocol Enoxaparin Sodium 40 mg 02/07/25 09:00 02/11/25 08:34 Enoxaparin 40 Mg/0.4 Ml Syringe SUB-Q 40 mg DAILY HAIM Administration Glucagon 1 mg 02/01/25 07:23 Glucagon For Inj 1 Mg Vial IM PRN PRN Hypoglycemia Protocol Glucose 15 gm 02/01/25 07:23 Glucose Oral Gel 15 Gm Of Glucse In 37.5 Gm Tube PO PRN PRN Hypoglycemia Protocol Dextrose 1,000 mls @ 100 mls/hr 02/01/25 07:23 Dextrose 5% 1,000 Ml IVPB PRN PRN Hypoglycemia Protocol Dexmedetomidine HCl 400 mcg in 100 mls @ 5.388 mls/hr 02/06/25 12:20 02/11/25 18:00 Precedex 400 Mcg/100 Ml IV CONT 0.5 mcg/kg/hr .[id number] HAIM 5.39 mls/hr Administration Protocol 0.5 MCG/KG/HR Propofol 100 mls @ 1.113 mls/hr 02/10/25 15:40 02/11/25 18:00 Diprivan IV CONT 5 mcg/kg/min .Q72H HAIM 1.11 mls/hr Administration Protocol 5 MCG/KG/MIN Insulin Aspart 3 - 6 units 02/01/25 12:00 02/11/25 17:10 Insulin Aspart (*Bkc) 100 Units/Ml SUB-Q Not Given Q6HR [facility] Protocol Ipratropium [place] 0.5 mg 02/04/25 14:00 02/11/25 15:01 Ipratropium Br 0.02% Inh Soln 0.5 Mg/2.5 Ml Vial INHALATION 0.5 mg Q6HRT HAIM Administration Levalbuterol HCl 0.63 mg 02/04/25 14:00 02/11/25 15:01 Levalbuterol Neb 1.25 Mg/3 Ml INHALATION 0.63 mg Q6HRT HAIM Administration Metoprolol Tartrate 5 mg 02/04/25 04:26 02/06/25 05:47 Metoprolol Tartrate Inj 5 Mg/5 Ml Vial IV PUSH 5 mg Q6H PRN Administration HR > 130 Metoprolol Tartrate 25 mg 02/04/25 09:00 02/11/25 17:09 Metoprolol Tartrate 25 Mg Tablet PO 25 mg BID HAIM Administration Multi-Ingred Cream/Lotion/Oil/Oint 1 applic 02/01/25 21:00 02/11/25 08:35 Mineral Oil/White Petrolatum Ointment EACH EYE 1 applic Q12HR HAIM Administration Ondansetron HCl 4 mg 01/31/25 16:00 Ondansetron Inj 4 Mg/2 Ml Vial IV PUSH Q4H PRN Nausea Pantoprazole Sodium 40 mg 02/01/25 09:00 02/11/25 08:34 Pantoprazole Sodium Iv 40 Mg Vial IV PUSH 40 mg Q12HR HAIM Administration Polyethylene Glycol 17 gm 02/08/25 10:41 Polyethylene Glycol 3350 17 Gm Powd.Pack PO QAM PRN constipation Sodium Chloride 10 ml 02/01/25 14:00 02/11/25 14:20 Central Line Flush IV PUSH 10 ml Q8HR HAIM Administration Sodium Chloride 20 ml 02/01/25 06:37 Central Line Flush IV PUSH PRN PRN after blood draws Radiology Results: ITS Impressions Head CT 01/31/25 15:47 Impression: No acute intracranial hemorrhage or suspicious mass effect. Chest/Abdomen/Pelvis CTA 01/31/25 15:49 IMPRESSION: Right middle and lower lobe pneumonia with dense consolidation. Left basilar atelectasis. No pulmonary embolus. No aortic dissection. Oral contrast opacifies the entirety of the colon. Supportive lines in good position. No acute pathology within the remainder of the examination, as detailed above. Chest X-Ray 02/11/25 06:46 IMPRESSION: Small right-sided pleural effusion. Limited evaluation of the tip of the endotracheal tube location as the danay is obscured by overlying devices and wires. Remaining supportive lines and tubes in good radiographic position. Labs Labs: Laboratory Results - last 24 hr 02/10/25 02/11/25 02/11/25 19:10 04:40 11:24 WBC 10.4 H RBC 3.47 L Hgb 10.4 L Hct 32.1 L MCV 92.5 MCH 30.0 MCHC 32.4 RDW 16.3 H Plt Count 332 MPV 10.9 H Puncture Site Right radial ABG pH 7.439 ABG pCO2 48.4 H ABG pO2 83.8 ABG PO2/FiO2 Ratio 2.79 ABG HCO3 32.1 H ABG O2 Saturation 96.5 ABG O2 Content 15.1 L ABG Base Excess 6.9 A-a Gradient 73.2 Oxyhemoglobin 95.5 Carboxyhemoglobin 0.4 Methemoglobin 0.1 Reduced Hemoglobin 4.0 Total Hemoglobin 11.2 L O2 Delivery Device Ventilator O2 Liters/Min Not Reportable Minute Volume Not Reportable Vent Rate 14 Vent Mode Cmv FiO2 30 Tidal Volume 300 PEEP 5 Peak Inspir Pressure Not Reportable Pressure Support Not Reportable Sodium 141 Potassium 3.6 Chloride 96 L Carbon Dioxide 38 H Anion Gap 7 BUN 29 H Creatinine 0.53 L Estim Creat Clear Calc 49 Estimated GFR > 60 Glucose 104 POC Capillary Glucose 104 93 Calcium 9.7 Magnesium 2.2 Total Bilirubin 0.5 AST 66 H ALT 71 H Alkaline Phosphatase 116 Total Protein 8.0 Albumin 4.1 02/11/25 17:08 WBC RBC Hgb Hct MCV MCH MCHC RDW Plt Count MPV Puncture Site ABG pH ABG pCO2 ABG pO2 ABG PO2/FiO2 Ratio ABG HCO3 ABG O2 Saturation ABG O2 Content ABG Base Excess A-a Gradient Oxyhemoglobin Carboxyhemoglobin Methemoglobin Reduced Hemoglobin Total Hemoglobin O2 Delivery Device O2 Liters/Min Minute Volume Vent Rate Vent Mode FiO2 Tidal Volume PEEP Peak Inspir Pressure Pressure Support Sodium Potassium Chloride Carbon Dioxide Anion Gap BUN Creatinine Estim Creat Clear Calc Estimated GFR Glucose POC Capillary Glucose 81 Calcium Magnesium Total Bilirubin AST ALT Alkaline Phosphatase Total Protein Albumin
[2025-02-11 23:40] LABS: Glucose Point of Care 66 mg/dl (65-105)
[2025-02-11] MEDS: DEXTROSE 50% 25 GM/50 ML SYRINGE IV PUSH (23:40)
[2025-02-12] VITALS (50 sets, daily range): BP systolic 82–170; BP diastolic 51–103; PULSE 89–130; RESP 14–27; TEMP 36.8–37.8; O2SAT 93–100
[2025-02-12 00:03] LABS: Glucose Point of Care 151 mg/dl (65-105)
[2025-02-12] MEDS: ETOMIDATE 20 MG/10 ML AMPUL IV PUSH (01:04)
[2025-02-12] MEDS: SUCCINYLCHOLINE CHLORIDE 20 MG/ML 10 ML VIAL 100 MG IV PUSH (01:06)
--- NOTE | 2025-02-12 01:27 | WPDPROCEDUR ---
Procedures Intubation Intubation Date: 02/12/25 Intubation Time: 01:00 A pre-procedural Time-Out was completed immediately before starting the procedure and confirmed: Patient Identification, Site, Procedure, Patient Position and the Availability of Requisite Equipment: Yes Sedative: etomidate Mg given: 20 Paralytic: succinylcholine Mg given: 100 Laryngoscope: fiber optic video scope ET tube size: 7 Tube secured depth (cm): 23 Tube secured location: lips Tube placement confirmation: visualized tube passing through cords, equal breath sounds bilaterally, no breath sounds over epigastrium and confirmation by capnometry Patient tolerated procedure: well and no complications Additional comments: Patient had self-extubated. The patient was maintaining oxygen saturations on non-rebreather but was tachypneic with accessory muscle use and extremely coarse breath sounds. Oxygen saturations were 92%. Respiratory therapy stated patient did not have a leak around the ET tube even with cuff deflated. Subsequently the decision was made to intubate patient with a 7.0 ET tube instead of a 7.5. During intubation the patient's airway was noted to be slightly anterior and there is significant amount of laryngeal edema. 7.0 ET tube was advanced but was brushing the vocal cords but no significant resistance. Ordered a dose of Decadron due to visualized vocal cord edema. Chest x-ray was obtained and demonstrated ET tube 2 cm from the danay ET tube was pulled back to 22 cm.
--- NOTE | 2025-02-12 01:30 | PC.NURSE ---
0050 RN walking past patient's room. Patient laying sideways in bed with feet hanging over the siderail. Upon entering room patient's ETT found to be at 15cm. Patient's tube feedings and sedation placed on hold. Respiratory therapist and Dr. Claros called. Patient repositioned in bed and placed on a 100%NRB. 0100 Dr. Claros at bedside. 0104 20mg Etomidate given 0106 100mg Succinylcholine given 0107 Patient reintubated with a 7.0 ETT.
[2025-02-12] MEDS: dexAMETHasone SOD PHOS INJ 10 MG/ML 1 ML VIAL IV PUSH (01:45)
[2025-02-12] MEDS: risperiDONE 1 MG TABLET FEED TUBE ×3 (01:58→21:55)
[2025-02-12] MEDS: LEVALBUTEROL NEB 1.25 MG/3 ML 0.63 MG INHALATION ×4 (02:22→20:50)
[2025-02-12] MEDS: IPRATROPIUM BR 0.02% INH SOLN 0.5 MG/2.5 ML VIAL INHALATION ×4 (02:22→20:49)
--- NOTE | 2025-02-12 03:52 | PCRCNOTE ---
At approximately 2000 ETT tube was noted to be at 20cm to Lip, planned for and advanced ETT at 0000 to 22cm per charting notes indicating Dr order from 02/05/25; RN located latest order for 21cm to Lip per Dr Taylor; withdrawn to 21cm. Patient gagging, coughing and increasingly agitated/animated with very minimal cuff leak noted during any of the maneuvers. RN called RT to come assess patient for potential self-extubation. Upon arrival, ETT tube was significantly withdrawn, patient still connected to ventilator and continuing to receive volumes. Dr Claros was informed, arrived and ETT was completely removed, patient placed on nonrebreather set to flush. At 0115 patient was prepped and reintubated with 7.0 ETT, 24cm to Lip, positive CO2 color change, bilateral breath sounds and chest rise noted; ETT withdrawn to 22cm; x-ray completed to confirm placement, ETT withdrawn to 21cm for 3cm above the danay. Cuff again requiring minimal inflation to occlude. Patient continues with restraints and sedation was increased. Per Dr Claros: If needed, downsize ETT from 7.0 to 6.5
[2025-02-12] MEDS: CENTRAL LINE FLUSH 10 ML IV PUSH ×4 (05:18→21:56)
[2025-02-12 05:19] LABS: Alveolar/Arterial O2 Gradient 92.8 mmHg; Base Excess ABG 5.1 mEq/l (+/-2.0); Carboxyhemoglobin 0.4 % THb (0-2.0); Fractional Inspired Oxygen 30 %; HCO3 ABG 29.9 mEq/l (22.0-26.0); Oxygen Content ABG 15.1 %vol (16.0-22.0); Oxygen Saturation ABG 94.2 % (95.0-100.0); Oxyhemoglobin 93.1 % THb (90.0-100.0); PO2 ABG 68.2 mmHg (80.0-100.0); PO2 FiO2 Ratio Arterial Blood 2.27 %; Reduced Hemoglobin 6.5 %THb (0-5.0); Total Hemoglobin 11.5 g/dL (12.0-18.0); pH ABG 7.441 (7.350-7.450)
[2025-02-12 05:38] LABS: Hematocrit 31.9 % (37.0-47.0); Hemoglobin 10.1 g/dL (12.0-15.0); Mean Corpuscular HGB Conc 31.7 g/dl (32-36); Mean Corpuscular Hemoglobin 29.5 pg (26-34); Mean Corpuscular Volume 93.3 fl (80-100); Mean Platelet Volume 10.8 fl (7.4-10.4); Platelet Count Result 329 k/mm3 (150-375); Red Blood Count 3.42 M/mm3 (4.2-5.4); Red Cell Distribution Width 16.5 % (11.5-14.5); White Blood Count 8.4 K/mm3 (4.5-10.0)
[2025-02-12] MEDS: PROPOFOL IV EMULSION 100 ML 6.68 MG IV CONT (05:49)
[2025-02-12 05:55] LABS: Alanine Aminotransferase 67 U/L (6-35); Alkaline Phosphatase 114 U/L (38-126); Anion Gap 8 mmol/L (4-12); Aspartate Amino Transferase 63 U/L (14-36); Bilirubin,Total 0.4 mg/dL (0.2-1.3); Blood Urea Nitrogen 26 mg/dL (7-17); Calcium 9.8 mg/dL (8.4-10.2); Carbon Dioxide 32 mmol/L (22-30); Chloride 101 mmol/L (98-107); Estimated CRCL calculation 50 ml/min; Estimated Glomerular Filt Rate > 60; Glucose 179 mg/dL (65-110); Magnesium 2.2 mg/dL (1.6-2.3); Sodium 141 mmol/L (137-145)
[2025-02-12 06:25] LABS: Modified Allen's Test Pass; Site Drawn LEFT RADIAL
[2025-02-12 06:26] LABS: Arterial Blood Gas Vent Mode CMV; Arterial Blood Gas Ventilator rate 14 /MIN; Device VENTILATOR
[2025-02-12 06:27] LABS: Arterial Blood Gas PEEP 5 cmH2O; Arterial Blood Gas Tidal Volume 300 ml
[2025-02-12] MEDS: PANTOPRAZOLE SODIUM IV 40 MG VIAL IV PUSH ×2 (08:35→21:55)
[2025-02-12] MEDS: ENOXAPARIN 40 MG/0.4 ML SYRINGE SUB-Q (08:35)
[2025-02-12] MEDS: LACTATED RINGERS 500 ML 999 ML IV CONT (08:38)
[2025-02-12] MEDS: METOPROLOL TARTRATE 25 MG TABLET PO ×2 (09:08→21:55)
--- NOTE | 2025-02-12 09:31 | PC.NURSE ---
Spoke with legal guardian Parth Warren. Physician Dr. Taylor went over risks/benefits of all procedures with guardian. Telephone consent obtained for a PICC line to be placed today. Stated that we were not sure when trach/peg would be completed but guardian did give consent via telephone for both procedures. Will update guardian when we have more info about physician and time.
--- NOTE | 2025-02-12 09:56 | WPDINTPN ---
Progress Note: A&P Assessment and Plan (1) Acute hypoxic respiratory failure: Code(s): J96.01 - Acute respiratory failure with hypoxia Status: Acute Assessment and Plan: 01/31/2025: Patient presented from [facility], [place] with hypoxia, periods of apnea, and unresponsiveness. She was brought to the ED being bagged, she did not have a gag and was unresponsive in the ED so was intubated upon arrival to the ED. central line was also inserted as she was hypotensive CT scan showed right middle and right lower lobe consolidation. Since then patient has also received decent amount of IV fluids 02/05-accidentally got extubated during turning by the nursing staff. She was intubated 02/06 failed weaning trial. patient kept on going into apnea ventilation. Precedex rate was decreased and patient is now on ASV. 02/07 weaning trial was attempted again. Patient had high RSBI on PSV 03/19. Patient was erratically breathing agitated and had drop in sats. Breathing trial was aborted 02/08 failed weaning trial due to high RSBI 02/09 I attempted a SBT weaning trial this morning. On 03/19 patient respiratory rate was in 40s with tidal volume and 100s. I had to increase the pressure support to 12 to get adequate RSBI even then patient's breathing was at. patient is not a candidate for extubation at this point. She will not be able to use BiPAP considering cerebral palsy and inability to communicate. I will try to continue weaning but I anticipate that if patient does not get extubated then she may need trach for continued ventilatory support 02/10 patient failed weaning trial again due to respiratory rate in high 40s and tidal volumes in 100s.. She requires pressure support of 12/5 for adequate ventilatory numbers. She is not a candidate for BiPAP. I anticipate patient will likely need tracheostomy. I called his healthcare power trade mark attorney who is on vacation at this time I will speak him on Wednesday. 02/11 Lasix again today and plan for weaning trial again today 02/12 self-extubated. Patient was given opportunity to see if she can tolerate noninvasive oxygenation support. But patient was tachypneic with use of accessory muscle and had to be reintubated. Patient also had airway edema and was given dexamethasone At this point patient has failed multiple days of trial and is quite debilitated and weak and unable to come off the ventilator. I spoke to patient's healthcare power trade mark attorney Mateo Warren who regarding option of proceeding need tracheostomy and PEG tube placement for ongoing ventilator support. He is agreeable to proceed with both and consented. Consent was also obtained for a PICC line -currently on CMV mode of ventilation, peep of 5 and 30 % FiO2 -ABGs and chest x-ray reviewed, ventilator adjusted by decreasing the rate -continue bronchodilators and Mucomyst nebulizer -completed course of Zosyn and azithromycin (2) AMS (altered mental status): Qualifiers: Altered mental status type: unspecified Qualified Code(s): R41.82 - Altered mental status, unspecified Code(s): R41.82 - Altered mental status, unspecified Status: Acute Assessment and Plan: Encephalopathy could be related to hypoxia, hypercapnia, pneumonia/infection/hypotension, could be related to medication -head CT negative at the time of presentation -currently intubated -continue propofol I will discontinue Precedex -upon review of chart patient appears to be nonverbal at baseline and communicates her needs with gestures. She walks around in the hallways and is able to eat modified diet (3) Pneumonia: Qualifiers: Pneumonia type: due to unspecified organism Laterality: right Lung location: unspecified part of lung Qualified Code(s): J18.9 - Pneumonia, unspecified organism Code(s): J18.9 - Pneumonia, unspecified organism Status: Acute Assessment and Plan: Chest x-ray and CTA chest show right lower lobe consolidation -according the [facility] records: Repeat CT chest showed interval development of new airspace opacities raising concern for aspiration pneumonia. She was transition to Zosyn from cefepime. MBS performed on 01/26 at [facility] which showed no evidence of aspiration despite coughing especially with swallowing. - completed course of Zosyn, azithromycin (01/31) -MRSA screen is negative, vancomycin discontinued (02/01) (4) Sepsis: Code(s): A41.9 - Sepsis, unspecified organism Status: Acute Assessment and Plan: Patient presented with altered mental status, hypoxia, apnea, pneumonia. -lactic acid was normal -blood pressures are borderline -patient was adequately fluid-resuscitated -status post albumin for volume expansion -off Levophed, -continue to monitor urine output and renal function - she has been receiving Lasix as needed depending on her volume status (5) Cerebral palsy: Code(s): G80.9 - Cerebral palsy, unspecified Status: Acute Assessment and Plan: Patient with cerebral palsy, mild intellectual disability, schizophrenia, nonverbal at baseline according the chart -patient on risperidone, will restart prior to extubation as she is currently sedated and intubated (6) Anemia: Code(s): D64.9 - Anemia, unspecified Status: Acute Assessment and Plan: Patient admitted with a hemoglobin of 10.3 on 01/31 -02/01: Hemoglobin dropped to 7.7, a repeat CBC was done which showed a hemoglobin of 7.3 -will check stools for occult blood, -folic acid and vitamin B12 level within normal limits -low iron levels, low TIBC, will give Venofer -LDH is normal, haptoglobin is pending -Protonix IV q.12 hours -continue to monitor (7) Electrolyte imbalance: Code(s): E87.8 - Other disorders of electrolyte and fluid balance, not elsewhere classified Status: Acute Assessment and Plan: Continue free water flush to 100 mL Potassium improved after placement (8) Sinus tachycardia: Code(s): R00.0 - Tachycardia, unspecified Status: Acute Assessment and Plan: 02/04: Patient developed SVT/sinus tachycardia overnight with rates in the 180-200s. Was given IV metoprolol x1 with improvement which brought her rate start to 130s. -could be multifactorial, related to sepsis, anemia, coronary artery disease -TSH normal -will continue metoprolol -currently sinus tachycardia monitor - mild elevation in troponin level with the levels have trended down -cardiology consult 02/02/2025: Echocardiogram Summary 1. Complete two-dimensional, color flow and Doppler transthoracic echocardiogram is performed. 2. Left ventricular chamber dimension is normal. 3. Left ventricular systolic function is normal, estimated at 60-65%. 4. The left ventricular diastolic function is grade I diastolic dysfunction. 5. E/e' 7 is not elevated. 6. There is mild aortic valve sclerosis. 7. There is trace tricuspid valve regurgitation. 8. Mild pulmonary hypertension, estimated pulmonary arterial systolic pressure is 41 mmHg. (9) Constipation: Code(s): K59.00 - Constipation, unspecified Status: Acute Assessment and Plan: 02/04: KUB showed moderate fecal retention -improved with laxatives as patient is now having bowel movements. 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 I spoke to him this morning and we discussed patient's failure to wean. I discussed option of tracheostomy PEG tube and PICC line he is agreeable to proceed with all. I explained him that we may not have ENT coverage and we may have to transfer the patient very tracheostomy and he was agreeable to transfer to either [facility] or [facility] for the procedure if needed Critical Care Time Spent: 30 minutes Due to a high probability of clinically significant, life threatening deterioration, the patient required my highest level of preparedness to intervene emergently and I personally spent this critical care time directly and personally managing the patient. This critical care time included obtaining a history; examining the patient; pulse oximetry; ordering and review of studies; arranging urgent treatment with development of a management plan; evaluation of patient's response to treatment; frequent reassessment; and discussions with other providers. It was exclusive of separately billable procedures and treating other patients and teaching time. Please see Assessment and Plan section and the rest of the note for further information on patient assessment and treatment This dictation may have been done utilizing a voice recognition system. Attempts have been made to correct errors. However, there may be uncorrected grammatical, spelling, and recognitions errors present. Subjective Date/time seen: 02/12/25 Overnight events reviewed. Afebrile Continues to be on mechanical ventilation. Patient was accidentally/self extubated overnight. She was maintaining her oxygenation but was tachypneic with use of accessory muscles and had to be intubated. Airway edema was seen. Dexamethasone was given patient is now intubated and sedated again Continues to be sedated with propofol and Precedex Tolerating tube feeds. Other Vitals acceptable Interval history: Reason for consult: Acute respiratory failure, pneumonia, altered mental status, unresponsiveness, anemia Review of Systems Review of Systems: ROS unobtainable: Yes unobtainable due to endotracheal tube, unobtainable due to medical condition and unobtainable due to mental status Exam Narrative: General: Petite female/malnourished, in no acute distress HEENT:? Pupils are pinpoint, sluggish, ETT in place Neck:? Supple Respiratory:? Coarse breath sounds bilaterally, rales on right base, no wheezing, adequate air entry otherwise Cardiac:? S1-S2 normal, regular rate and rhythm Abdomen:? Soft, nontender, nondistended, hypoactive bowel sounds Extremities:? Trace edema, bilateral pedal pulses are palpable Neuro:? Intubated, sedated, today Skin:? No skin lesions noted Psych:? Unable to assess at this time Objective Data Vital Signs Vital Signs: Vital Signs - 24 hr 02/11/25 10:00 02/11/25 10:00 02/11/25 10:00 Temperature Pulse Rate 93 100 100 Respiratory Rate 18 20 Blood Pressure 104/66 Pulse Oximetry 97 Oxygen Delivery Fraction of Inspired Oxygen 02/11/25 10:30 02/11/25 11:42 02/11/25 12:00 Temperature 37.4 C Pulse Rate 94 93 93 Respiratory Rate 18 14 Blood Pressure 119/92 H Pulse Oximetry 95 94 Oxygen Delivery Mechanical Ventilation Fraction of Inspired Oxygen 02/11/25 12:00 02/11/25 12:00 02/11/25 12:00 Temperature Pulse Rate 91 Respiratory Rate Blood Pressure Pulse Oximetry 94 Oxygen Delivery Mechanical Ventilation Fraction of Inspired Oxygen 30 02/11/25 12:30 02/11/25 12:41 02/11/25 12:41 Temperature Pulse Rate 92 94 94 Respiratory Rate 14 14 14 Blood Pressure Pulse Oximetry Oxygen Delivery Fraction of Inspired Oxygen 02/11/25 14:00 02/11/25 14:00 02/11/25 14:00 Temperature 37.6 C H Pulse Rate 103 H 104 H 104 H Respiratory Rate 14 18 18 Blood Pressure 113/78 Pulse Oximetry 93 Oxygen Delivery Fraction of Inspired Oxygen 02/11/25 14:00 02/11/25 15:00 02/11/25 15:00 Temperature Pulse Rate 104 H 105 H 105 H Respiratory Rate 16 Blood Pressure Pulse Oximetry 94 Oxygen Delivery Mechanical Ventilation Fraction of Inspired Oxygen 30 02/11/25 16:00 02/11/25 16:00 02/11/25 16:00 Temperature 37.5 C Pulse Rate 93 91 113 H Respiratory Rate 15 15 20 Blood Pressure 145/89 H Pulse Oximetry 97 Oxygen Delivery Fraction of Inspired Oxygen 02/11/25 16:00 02/11/25 16:00 02/11/25 16:00 Temperature Pulse Rate 105 H Respiratory Rate Blood Pressure Pulse Oximetry 94 Oxygen Delivery Mechanical Ventilation Fraction of Inspired Oxygen 30 30 02/11/25 16:42 02/11/25 17:09 02/11/25 18:00 Temperature Pulse Rate 100 96 89 Respiratory Rate 14 Blood Pressure Pulse Oximetry 97 Oxygen Delivery Mechanical Ventilation Fraction of Inspired Oxygen 30 02/11/25 18:00 02/11/25 18:00 02/11/25 18:00 Temperature Pulse Rate 89 91 91 Respiratory Rate 14 16 16 Blood Pressure Pulse Oximetry Oxygen Delivery Fraction of Inspired Oxygen 02/11/25 18:00 02/11/25 18:00 02/11/25 20:00 Temperature 37.7 C H 37.9 C H Pulse Rate 92 90 93 Respiratory Rate 16 24 H Blood Pressure 120/81 105/73 Pulse Oximetry 94 95 Oxygen Delivery Fraction of Inspired Oxygen 02/11/25 20:00 02/11/25 20:00 02/11/25 20:00 Temperature Pulse Rate 95 Respiratory Rate Blood Pressure Pulse Oximetry Oxygen Delivery Mechanical Ventilation Fraction of Inspired Oxygen 30 30 02/11/25 20:09 02/11/25 20:10 02/11/25 20:32 Temperature Pulse Rate 93 93 101 H Respiratory Rate 14 15 Blood Pressure Pulse Oximetry 96 Oxygen Delivery Mechanical Ventilation Fraction of Inspired Oxygen 30 02/11/25 20:33 02/11/25 21:08 02/11/25 22:00 Temperature 37.8 C H Pulse Rate 101 H 110 H 100 Respiratory Rate 15 17 22 H Blood Pressure 118/79 Pulse Oximetry 94 Oxygen Delivery Fraction of Inspired Oxygen 02/11/25 22:00 02/11/25 22:03 02/11/25 22:04 Temperature Pulse Rate 100 98 98 Respiratory Rate 14 14 Blood Pressure Pulse Oximetry Oxygen Delivery Fraction of Inspired Oxygen 02/11/25 23:33 02/12/25 00:00 02/12/25 00:00 Temperature Pulse Rate 101 H Respiratory Rate Blood Pressure Pulse Oximetry 96 Oxygen Delivery Mechanical Ventilation Mechanical Ventilation Fraction of Inspired Oxygen 30 30 30 02/12/25 00:00 02/12/25 00:00 02/12/25 00:03 Temperature 37.1 C Pulse Rate 111 H 108 H 107 H Respiratory Rate 24 H 21 H Blood Pressure 141/51 H Pulse Oximetry 97 Oxygen Delivery Fraction of Inspired Oxygen 02/12/25 00:03 02/12/25 00:55 02/12/25 01:20 Temperature Pulse Rate 107 H 118 H 122 H Respiratory Rate 21 H 18 25 H Blood Pressure Pulse Oximetry Oxygen Delivery Fraction of Inspired Oxygen 02/12/25 01:26 02/12/25 01:28 02/12/25 01:33 Temperature Pulse Rate 118 H 123 H 120 H Respiratory Rate 17 25 H Blood Pressure Pulse Oximetry 94 Oxygen Delivery Mechanical Ventilation Fraction of Inspired Oxygen 30 02/12/25 01:48 02/12/25 02:00 02/12/25 02:00 Temperature 37.7 C H Pulse Rate 120 H 119 H 115 H Respiratory Rate 16 17 24 H Blood Pressure 143/93 H Pulse Oximetry 93 Oxygen Delivery Fraction of Inspired Oxygen 02/12/25 02:00 02/12/25 02:02 02/12/25 02:23 Temperature Pulse Rate 117 H 115 H 120 H Respiratory Rate 17 14 Blood Pressure Pulse Oximetry Oxygen Delivery Fraction of Inspired Oxygen 02/12/25 02:24 02/12/25 02:28 02/12/25 04:00 Temperature Pulse Rate 120 H 115 H 118 H Respiratory Rate 14 18 Blood Pressure Pulse Oximetry 93 Oxygen Delivery Mechanical Ventilation Fraction of Inspired Oxygen 30 02/12/25 04:00 02/12/25 04:00 02/12/25 04:00 Temperature 37.2 C Pulse Rate 118 H 129 H Respiratory Rate 18 22 H Blood Pressure 129/82 Pulse Oximetry 93 Oxygen Delivery Mechanical Ventilation Fraction of Inspired Oxygen 30 02/12/25 04:00 02/12/25 04:00 02/12/25 04:55 Temperature Pulse Rate 127 H 122 H Respiratory Rate Blood Pressure Pulse Oximetry 95 Oxygen Delivery Mechanical Ventilation Fraction of Inspired Oxygen 30 30 02/12/25 05:49 02/12/25 05:49 02/12/25 06:00 Temperature Pulse Rate 120 H 120 H 118 H Respiratory Rate 15 15 14 Blood Pressure Pulse Oximetry Oxygen Delivery Fraction of Inspired Oxygen 02/12/25 06:00 02/12/25 06:00 02/12/25 06:00 Temperature 37.2 C Pulse Rate 118 H 118 H 118 H Respiratory Rate 14 22 H Blood Pressure 110/70 Pulse Oximetry 97 Oxygen Delivery Fraction of Inspired Oxygen 02/12/25 07:01 02/12/25 07:02 02/12/25 07:49 Temperature Pulse Rate 104 H 102 H 93 Respiratory Rate 14 14 14 Blood Pressure Pulse Oximetry Oxygen Delivery Fraction of Inspired Oxygen 02/12/25 08:00 02/12/25 08:00 02/12/25 08:00 Temperature 36.8 C Pulse Rate 90 90 89 Respiratory Rate 14 14 Blood Pressure 82/58 L Pulse Oximetry 97 Oxygen Delivery Fraction of Inspired Oxygen 02/12/25 08:04 02/12/25 08:21 02/12/25 08:30 Temperature Pulse Rate 89 94 96 Respiratory Rate 14 14 Blood Pressure Pulse Oximetry 100 Oxygen Delivery Mechanical Ventilation Fraction of Inspired Oxygen 30 02/12/25 08:30 02/12/25 08:54 02/12/25 09:08 Temperature Pulse Rate 96 113 H 119 H Respiratory Rate 14 17 Blood Pressure Pulse Oximetry Oxygen Delivery Fraction of Inspired Oxygen 02/12/25 09:13 02/12/25 09:14 02/12/25 09:38 Temperature Pulse Rate 119 H 120 H 113 H Respiratory Rate 27 H 14 16 Blood Pressure Pulse Oximetry Oxygen Delivery Fraction of Inspired Oxygen Intake/Output Intake/Output: Intake & Output 02/09/25 02/10/25 02/11/25 02/12/25 23:59 23:59 23:59 23:59 Intake Total 1098.7 1587.9 1673.9 793.7 Output Total 1350 2450 1460 650 Balance -251.3 -862.1 213.9 143.7 Meds/Results Medications: Active Medications Generic Name Dose Route Start Last Admin Trade Name Freq PRN Reason Stop Dose Admin Acetaminophen 650 mg 02/03/25 22:36 02/05/25 21:31 Acetaminophen Elixir 325 Mg/10.15 Ml Udc PO 650 mg Q6H PRN Administration Mild Pain (1-3) or Fever Dextrose 12.5 gm 02/01/25 07:23 02/11/25 23:40 Dextrose 50% 25 Gm/50 Ml Syringe IV PUSH 12.5 gm PRN PRN Administration Hypoglycemia Protocol Enoxaparin Sodium 40 mg 02/07/25 09:00 02/12/25 08:35 Enoxaparin 40 Mg/0.4 Ml Syringe SUB-Q 40 mg DAILY HAIM Administration Glucagon 1 mg 02/01/25 07:23 Glucagon For Inj 1 Mg Vial IM PRN PRN Hypoglycemia Protocol Glucose 15 gm 02/01/25 07:23 Glucose Oral Gel 15 Gm Of Glucse In 37.5 Gm Tube PO PRN PRN Hypoglycemia Protocol Dextrose 1,000 mls @ 100 mls/hr 02/01/25 07:23 Dextrose 5% 1,000 Ml IVPB PRN PRN Hypoglycemia Protocol Propofol 100 mls @ 6.678 mls/hr 02/10/25 15:40 02/12/25 09:38 Diprivan IV CONT 30 mcg/kg/min .[id number] HAIM 6.68 mls/hr Titration Protocol 30 MCG/KG/MIN Insulin Aspart 3 - 6 units 02/01/25 12:00 02/12/25 05:56 Insulin Aspart (*Bkc) 100 Units/Ml SUB-Q Not Given Q6HR HAIM Protocol Ipratropium Mystic 0.5 mg 02/04/25 14:00 02/12/25 08:27 Ipratropium Br 0.02% Inh Soln 0.5 Mg/2.5 Ml Vial INHALATION 0.5 mg Q6HRT HAIM Administration Levalbuterol HCl 0.63 mg 02/04/25 14:00 02/12/25 08:27 Levalbuterol Neb 1.25 Mg/3 Ml INHALATION 0.63 mg Q6HRT HAIM Administration Metoprolol Tartrate 5 mg 02/04/25 04:26 02/06/25 05:47 Metoprolol Tartrate Inj 5 Mg/5 Ml Vial IV PUSH 5 mg Q6H PRN Administration HR > 130 Metoprolol Tartrate 25 mg 02/12/25 09:00 02/12/25 09:08 Metoprolol Tartrate 25 Mg Tablet PO 25 mg Q12HR HAIM Administration Multi-Ingred Cream/Lotion/Oil/Oint 1 applic 02/01/25 21:00 02/12/25 08:47 Mineral Oil/White Petrolatum Ointment EACH EYE Not Given Q12HR HAIM Ondansetron HCl 4 mg 01/31/25 16:00 Ondansetron Inj 4 Mg/2 Ml Vial IV PUSH Q4H PRN Nausea Pantoprazole Sodium 40 mg 02/01/25 09:00 02/12/25 08:35 Pantoprazole Sodium Iv 40 Mg Vial IV PUSH 40 mg Q12HR HAIM Administration Polyethylene Glycol 17 gm 02/08/25 10:41 Polyethylene Glycol 3350 17 Gm Powd.Pack PO QAM PRN constipation Risperidone 1 mg 02/12/25 09:00 02/12/25 08:47 Risperidone 1 Mg Tablet FEED TUBE 1 mg Q12HR HAIM Administration Risperidone 0.5 mg 02/12/25 21:00 Risperidone 0.5 Mg Tablet FEED TUBE HS HAIM Sodium Chloride 10 ml 02/01/25 14:00 02/12/25 05:18 Central Line Flush IV PUSH 10 ml Q8HR HAIM Administration Sodium Chloride 20 ml 02/01/25 06:37 Central Line Flush IV PUSH PRN PRN after blood draws Radiology Results: ITS Impressions Head CT 01/31/25 15:47 Impression: No acute intracranial hemorrhage or suspicious mass effect. Chest/Abdomen/Pelvis CTA 01/31/25 15:49 IMPRESSION: Right middle and lower lobe pneumonia with dense consolidation. Left basilar atelectasis. No pulmonary embolus. No aortic dissection. Oral contrast opacifies the entirety of the colon. Supportive lines in good position. No acute pathology within the remainder of the examination, as detailed above. Abdomen X-Ray 02/12/25 05:44 Impression: NG tube in satisfactory position. Chest X-Ray 02/12/25 05:45 Impression: Support tubes, as above. Right IJ line tip is in the right atrium, near the IVC. Clear lungs with stable elevation right hemidiaphragm. Labs Labs: Laboratory Results - last 24 hr 02/11/25 02/11/25 02/11/25 11:24 17:08 23:37 WBC RBC Hgb Hct MCV MCH MCHC RDW Plt Count MPV Puncture Site ABG pH ABG pCO2 ABG pO2 ABG PO2/FiO2 Ratio ABG HCO3 ABG O2 Saturation ABG O2 Content ABG Base Excess A-a Gradient Oxyhemoglobin Carboxyhemoglobin Methemoglobin Reduced Hemoglobin Total Hemoglobin O2 Delivery Device O2 Liters/Min Minute Volume Vent Rate Vent Mode FiO2 Tidal Volume PEEP Peak Inspir Pressure Pressure Support Sodium Potassium Chloride Carbon Dioxide Anion Gap BUN Creatinine Estim Creat Clear Calc Estimated GFR Glucose POC Capillary Glucose 93 81 66 Calcium Magnesium Total Bilirubin AST ALT Alkaline Phosphatase Total Protein Albumin 02/12/25 02/12/25 02/12/25 00:00 04:57 05:26 WBC 8.4 RBC 3.42 L Hgb 10.1 L Hct 31.9 L MCV 93.3 MCH 29.5 MCHC 31.7 L RDW 16.5 H Plt Count 329 MPV 10.8 H Puncture Site Left radial ABG pH 7.441 ABG pCO2 45.0 ABG pO2 68.2 L ABG PO2/FiO2 Ratio 2.27 ABG HCO3 29.9 H ABG O2 Saturation 94.2 L ABG O2 Content 15.1 L ABG Base Excess 5.1 A-a Gradient 92.8 Oxyhemoglobin 93.1 Carboxyhemoglobin 0.4 Methemoglobin 0.0 Reduced Hemoglobin 6.5 H Total Hemoglobin 11.5 L O2 Delivery Device Ventilator O2 Liters/Min Not Reportable Minute Volume Not Reportable Vent Rate 14 Vent Mode Cmv FiO2 30 Tidal Volume 300 PEEP 5 Peak Inspir Pressure Not Reportable Pressure Support Not Reportable Sodium 141 Potassium 4.0 Chloride 101 Carbon Dioxide 32 H Anion Gap 8 BUN 26 H Creatinine 0.51 L Estim Creat Clear Calc 50 Estimated GFR > 60 Glucose 179 H POC Capillary Glucose 151 H Calcium 9.8 Magnesium 2.2 Total Bilirubin 0.4 AST 63 H ALT 67 H Alkaline Phosphatase 114 Total Protein 8.0 Albumin 4.0 Quality VTE Prophylaxis VTE prophylaxis: mechanical ordered and pharmacologic ordered
--- NOTE | 2025-02-12 10:18 | PCFNICU ---
ICU Rounding Note: Pt current nutrition is Vital AF 1.2 @ goal rate 50 ml/h. Flush 30 ml q 4 h. Nutrition recommendation: No new nutrition recommendations. Continue current nutrition care plan and orders. Agree with orders Last recorded weight is 36.9 kg. Bowel Motility: +1 BM 02/10/25 Labs Reviewed: Hgb 10.1, Hct 31.9, BUN 26, Cre 0.51, Glu 179 Meds Noted: Zofran, propofol @ 4.45 ml/h = 117 kcal Skin: No skin issues Additional Notes: Pt to get PEG soon. No ENT here for tracheostomy, may need to transfer or possibly get once transferred to LTACH. Continue to monitor Following daily in ICU rounds. Will monitor weight, labs, skin, diet orders, meds every Wednesday and Wednesday. .
--- NOTE | 2025-02-12 10:22 | PCFNICU ---
ICU Rounding Note: Pt current nutrition is Vital 1.2 @ goal rate 50 ml/h with flushes 30 ml q 4 h. Nutrition recommendation: Because of high rate of propofol, switch formulas to Vital High Protein @ goal rate 40 ml/h with Prosource TF once per day. To provide total 970 kcal, 97 g protein, 736 ml free water. Last recorded weight is 36.9 kg. Bowel Motility: +1 BM 02/09/25. May need bowel regimen Labs Reviewed: BUN 31, Glu 166, Mag 2.7 Meds Noted: Propofol @ 50 ml/h = 1320 kcal. Fentanyl, precedex, levophed Skin: No Skin issues Additional Notes: total kcal with propofol @ 50 ml/h= 2640. With Vital HP running at 40 ml/h, total kcal with propofol = 2290 kcal/day Following daily in ICU rounds. Will monitor weight, labs, skin, diet orders, meds every Wednesday and Wednesday. .
[2025-02-12] MEDS: LIDOCAINE 1% PF INJ 5 ML VIAL INFILTRATE (10:50)
[2025-02-12 11:56] LABS: Glucose Point of Care 109 mg/dl (65-105)
--- NOTE | 2025-02-12 12:32 | P.PNIM_ITS ---
Progress Note: A&P Assessment and Plan (1) Acute hypoxic respiratory failure: Code(s): J96.01 - Acute respiratory failure with hypoxia Status: Acute Assessment and Plan: Patient presented on 01/31 from [facility] with hypoxia, periods of apnea, and unresponsiveness. She was brought to the ED being bagged, she did not have a gag and was unresponsive in the ED so was intubated upon arri camelia to the ED. A central line was also inserted as she was hypotensive. CT scan showed right middle and right lower lobe consolidation. Patient was fluid resuscitated. 02/05-accidentally got extubated during turning by the nursing staff. She was re-intubated She completed course of abx (last dose on 02/07) Patient has failed multiple weaning trials ABGs reviewed. CXR clear. Continue xopenex and atrovent Lasix IV prn Vent management per sofa back upholsterer. PEG and Trach being considered (2) AMS (altered mental status): Qualifiers: Altered mental status type: unspecified Qualified Code(s): R41.82 - Altered mental status, unspecified Code(s): R41.82 - Altered mental status, unspecified Status: Acute Assessment and Plan: Encephalopathy could be related to hypoxia, hypercapnia, pneumonia/infection/hypotension, could be related to medication. Baseline function: nonverbal and communicates her needs with gestures. She walks in hallways and is able to eat modified diet Head CT negative at the time of presentation Remains intubated Follow (3) Pneumonia: Qualifiers: Laterality: right Lung location: unspecified part of lung Pneumonia type: due to unspecified organism Qualified Code(s): J18.9 - Pneumonia, unspecified organism Code(s): J18.9 - Pneumonia, unspecified organism Status: Acute Assessment and Plan: Chest x-ray and CTA chest show right lower lobe consolidation -according the [facility] records: Repeat CT chest showed interval development of new airspace opacities raising concern for aspiration pneumonia. She was transition to Zosyn from cefepime. MBS performed on 01/[address] [facility] which showed no evidence of aspiration despite coughing especially with swallowing. MRSA screen is negative, vancomycin discontinued (02/01) BCx negative. Sputum Cx had light growth of yeast. Completed course of Zosyn, azithromycin (last dose 02/07) CXR clear now. May be intermittently aspirating. Follow. Plan to repeat swallow study when able (4) Sepsis: Code(s): A41.9 - Sepsis, unspecified organism Status: Acute Assessment and Plan: Patient presented with altered mental status, hypoxia, apnea, pneumonia. Lactic acid was normal. Blood pressures was borderline Patient was adequately fluid-resuscitated Status post albumin for volume expansion Off Levophed Sepsis resolved. Continue to monitor urine output and renal function Lasix IV prn (5) Cerebral palsy: Code(s): G80.9 - Cerebral palsy, unspecified Status: Acute Assessment and Plan: Patient with cerebral palsy, mild intellectual disability, schizophrenia, nonverbal at baseline according the chart Patient on risperidone, clomipramine at home; risperidone resumed. Resume clomipramine when able (6) Anemia: Code(s): D64.9 - Anemia, unspecified Status: Acute Assessment and Plan: Patient admitted with a hemoglobin of 10.3 on 01/31 Hemoglobin dropped to 7.3 on 02/01 Stools for occult blood negative. LDH and haptoglobin normal B12/Folate levels normal. Iron and TIBC low c/w anemia of chronic disease. Venofer given. Hgb better and back up to 10 Protonix IV q.12 hours Continue to monitor (7) Electrolyte imbalance: Code(s): E87.8 - Other disorders of electrolyte and fluid balance, not elsewhere classified Status: Acute Assessment and Plan: Free water flushes for hypernatremia; Na stable (8) Sinus tachycardia: Code(s): R00.0 - Tachycardia, unspecified Status: Acute Assessment and Plan: 02/04: Patient developed SVT/sinus tachycardia overnight with rates in the 180- 200s. Was given IV metoprolol x1 with improvement which brought her rate start to 130s. Could be multifactorial, related to sepsis, anemia, coronary artery disease and being off her metoprolol TSH normal. Echo 02/02 showing normal LV systolic function (EF60-65%) and grade I diastolic dysfunction with mild valve disease and mild pHTN. Metoprolol resumed. Mild elevation in troponin level with the levels have trended down Cardiology consulted Metoprolol dose decreased today due to soft BP. Follow (9) Constipation: Code(s): K59.00 - Constipation, unspecified Status: Acute Assessment and Plan: KUB showed moderate fecal retention on 02/04 Improved with laxatives as patient is now having bowel movements. MiraLax prn now Plan DVT prophylaxis: Lovenox Stress ulcer prophylaxis: Protonix IV q.12 hours Nutrition: Tolerating tube feeds Code Status: Full -patient is a guardian/bear of the state ([place]ate[place]) Subjective Date/time seen: 02/12/25 12:32 Interval history: 69yo female with cerebral palsy, nonverbal, osteoporosis, mild intellectual disabilities, dyslipidemia and schizophrenia here with altered mental status and unresponsiveness. Patient self-extubated last night. She was trialed off MV but became very tachypneic requiring re-intubation. Patietn remains on mechanical ventilation this morning. BP soft. Off precedex Review of Systems Review of Systems: ROS unobtainable: Yes unobtainable due to endotracheal tube Exam Narrative: Tm 100.2 99.3 122/71 109 17 98% MV Gen - intubated. appears comfortable HEENT -dysconjugate gaze noted. ET tube and OG tube secured. Neck -right IJ triple-lumen catheter secured. Chest - more coarse BS CV - RRR S1/S2. Telemetry showing PVCs Abd - soft. Positive bowel sounds. Nondistended. -Arredondo catheter secured draining clear yellow urine Ext - No pedal edema Neuro -alert. Psych -remaining calm Skin - Warm and dry Objective Data Vital Signs Vital Signs: Vital Signs - 24 hr 02/11/25 12:41 02/11/25 12:41 02/11/25 14:00 Temperature Pulse Rate 94 94 103 H Respiratory Rate 14 14 14 Blood Pressure Pulse Oximetry Oxygen Delivery Fraction of Inspired Oxygen 02/11/25 14:00 02/11/25 14:00 02/11/25 14:00 Temperature 99.7 F H Pulse Rate 104 H 104 H 104 H Respiratory Rate 18 18 Blood Pressure 113/78 Pulse Oximetry 93 Oxygen Delivery Fraction of Inspired Oxygen 02/11/25 15:00 02/11/25 15:00 02/11/25 16:00 Temperature Pulse Rate 105 H 105 H 93 Respiratory Rate 16 15 Blood Pressure Pulse Oximetry 94 Oxygen Delivery Mechanical Ventilation Fraction of Inspired Oxygen 30 02/11/25 16:00 02/11/25 16:00 02/11/25 16:00 Temperature 99.5 F Pulse Rate 91 113 H 105 H Respiratory Rate 15 20 Blood Pressure 145/89 H Pulse Oximetry 97 Oxygen Delivery Fraction of Inspired Oxygen 02/11/25 16:00 02/11/25 16:00 02/11/25 16:42 Temperature Pulse Rate 100 Respiratory Rate Blood Pressure Pulse Oximetry 94 97 Oxygen Delivery Mechanical Ventilation Mechanical Ventilation Fraction of Inspired Oxygen 30 30 30 02/11/25 17:09 02/11/25 18:00 02/11/25 18:00 Temperature Pulse Rate 96 89 89 Respiratory Rate 14 14 Blood Pressure Pulse Oximetry Oxygen Delivery Fraction of Inspired Oxygen 02/11/25 18:00 02/11/25 18:00 02/11/25 18:00 Temperature 100 F H Pulse Rate 91 91 92 Respiratory Rate 16 16 16 Blood Pressure 120/81 Pulse Oximetry 94 Oxygen Delivery Fraction of Inspired Oxygen 02/11/25 18:00 02/11/25 20:00 02/11/25 20:00 Temperature 100.2 F H Pulse Rate 90 93 Respiratory Rate 24 H Blood Pressure 105/73 Pulse Oximetry 95 Oxygen Delivery Mechanical Ventilation Fraction of Inspired Oxygen 30 02/11/25 20:00 02/11/25 20:00 02/11/25 20:09 Temperature Pulse Rate 95 93 Respiratory Rate 14 Blood Pressure Pulse Oximetry Oxygen Delivery Fraction of Inspired Oxygen 30 02/11/25 20:10 02/11/25 20:32 02/11/25 20:33 Temperature Pulse Rate 93 101 H 101 H Respiratory Rate 15 15 Blood Pressure Pulse Oximetry 96 Oxygen Delivery Mechanical Ventilation Fraction of Inspired Oxygen 30 02/11/25 21:08 02/11/25 22:00 02/11/25 22:00 Temperature 100.1 F H Pulse Rate 110 H 100 100 Respiratory Rate 17 22 H Blood Pressure 118/79 Pulse Oximetry 94 Oxygen Delivery Fraction of Inspired Oxygen 02/11/25 22:03 02/11/25 22:04 02/11/25 23:33 Temperature Pulse Rate 98 98 101 H Respiratory Rate 14 14 Blood Pressure Pulse Oximetry 96 Oxygen Delivery Mechanical Ventilation Fraction of Inspired Oxygen 30 02/12/25 00:00 02/12/25 00:00 02/12/25 00:00 Temperature 98.8 F Pulse Rate 111 H Respiratory Rate 24 H Blood Pressure 141/51 H Pulse Oximetry 97 Oxygen Delivery Mechanical Ventilation Fraction of Inspired Oxygen 30 02/12/25 00:00 02/12/25 00:03 02/12/25 00:03 Temperature Pulse Rate 108 H 107 H 107 H Respiratory Rate 21 H 21 H Blood Pressure Pulse Oximetry Oxygen Delivery Fraction of Inspired Oxygen 02/12/25 00:55 02/12/25 01:20 02/12/25 01:26 Temperature Pulse Rate 118 H 122 H 118 H Respiratory Rate 18 25 H 17 Blood Pressure Pulse Oximetry Oxygen Delivery Fraction of Inspired Oxygen 02/12/25 01:28 02/12/25 01:33 02/12/25 01:48 Temperature Pulse Rate 123 H 120 H 120 H Respiratory Rate 25 H 16 Blood Pressure Pulse Oximetry 94 Oxygen Delivery Mechanical Ventilation Fraction of Inspired Oxygen 30 02/12/25 02:00 02/12/25 02:00 02/12/25 02:00 Temperature 99.8 F H Pulse Rate 119 H 115 H 117 H Respiratory Rate 17 24 H Blood Pressure 143/93 H Pulse Oximetry 93 Oxygen Delivery Fraction of Inspired Oxygen 02/12/25 02:02 02/12/25 02:23 02/12/25 02:24 Temperature Pulse Rate 115 H 120 H 120 H Respiratory Rate 17 14 Blood Pressure Pulse Oximetry 93 Oxygen Delivery Mechanical Ventilation Fraction of Inspired Oxygen 30 02/12/25 02:28 02/12/25 04:00 02/12/25 04:00 Temperature Pulse Rate 115 H 118 H 118 H Respiratory Rate 14 18 18 Blood Pressure Pulse Oximetry Oxygen Delivery Fraction of Inspired Oxygen 02/12/25 04:00 02/12/25 04:00 02/12/25 04:00 Temperature 99 F Pulse Rate 129 H Respiratory Rate 22 H Blood Pressure 129/82 Pulse Oximetry 93 Oxygen Delivery Mechanical Ventilation Fraction of Inspired Oxygen 30 02/12/25 04:00 02/12/25 04:55 02/12/25 05:49 Temperature Pulse Rate 127 H 122 H 120 H Respiratory Rate 15 Blood Pressure Pulse Oximetry 95 Oxygen Delivery Mechanical Ventilation Fraction of Inspired Oxygen 30 02/12/25 05:49 02/12/25 06:00 02/12/25 06:00 Temperature Pulse Rate 120 H 118 H 118 H Respiratory Rate 15 14 14 Blood Pressure Pulse Oximetry Oxygen Delivery Fraction of Inspired Oxygen 02/12/25 06:00 02/12/25 06:00 02/12/25 07:01 Temperature 99 F Pulse Rate 118 H 118 H 104 H Respiratory Rate 22 H 14 Blood Pressure 110/70 Pulse Oximetry 97 Oxygen Delivery Fraction of Inspired Oxygen 02/12/25 07:02 02/12/25 07:49 02/12/25 08:00 Temperature Pulse Rate 102 H 93 90 Respiratory Rate 14 14 14 Blood Pressure Pulse Oximetry Oxygen Delivery Fraction of Inspired Oxygen 02/12/25 08:00 02/12/25 08:00 02/12/25 08:00 Temperature 98.2 F Pulse Rate 90 89 Respiratory Rate 14 Blood Pressure 82/58 L Pulse Oximetry 97 Oxygen Delivery Mechanical Ventilation Fraction of Inspired Oxygen 30 02/12/25 08:04 02/12/25 08:21 02/12/25 08:30 Temperature Pulse Rate 89 94 96 Respiratory Rate 14 14 Blood Pressure Pulse Oximetry 100 Oxygen Delivery Mechanical Ventilation Fraction of Inspired Oxygen 30 02/12/25 08:30 02/12/25 08:54 02/12/25 09:08 Temperature Pulse Rate 96 113 H 119 H Respiratory Rate 14 17 Blood Pressure Pulse Oximetry Oxygen Delivery Fraction of Inspired Oxygen 02/12/25 09:13 02/12/25 09:14 02/12/25 09:38 Temperature Pulse Rate 119 H 120 H 113 H Respiratory Rate 27 H 14 16 Blood Pressure Pulse Oximetry Oxygen Delivery Fraction of Inspired Oxygen 02/12/25 10:00 02/12/25 11:37 02/12/25 12:00 Temperature 98.2 F 99.3 F Pulse Rate 104 H 105 H 109 H Respiratory Rate 16 17 Blood Pressure 106/70 122/71 Pulse Oximetry 99 97 98 Oxygen Delivery Mechanical Ventilation Fraction of Inspired Oxygen 30 Intake/Output Intake/Output: Intake & Output 02/09/25 02/10/25 02/11/25 02/12/25 23:59 23:59 23:59 23:59 Intake Total 1098.7 1587.9 1673.9 793.7 Output Total 1350 2450 1460 650 Balance -251.3 -862.1 213.9 143.7 Meds/Results Medications: Active Medications Generic Name Dose Route Start Last Admin Trade Name Freq PRN Reason Stop Dose Admin Acetaminophen 650 mg 02/03/25 22:36 02/05/25 21:31 Acetaminophen Elixir 325 Mg/10.15 Ml Udc PO 650 mg Q6H PRN Administration Mild Pain (1-3) or Fever Dextrose 12.5 gm 02/01/25 07:23 02/11/25 23:40 Dextrose 50% 25 Gm/50 Ml Syringe IV PUSH 12.5 gm PRN PRN Administration Hypoglycemia Protocol Enoxaparin Sodium 40 mg 02/07/25 09:00 02/12/25 08:35 Enoxaparin 40 Mg/0.4 Ml Syringe SUB-Q 40 mg DAILY HAIM Administration Glucagon 1 mg 02/01/25 07:23 Glucagon For Inj 1 Mg Vial IM PRN PRN Hypoglycemia Protocol Glucose 15 gm 02/01/25 07:23 Glucose Oral Gel 15 Gm Of Glucse In 37.5 Gm Tube PO PRN PRN Hypoglycemia Protocol Dextrose 1,000 mls @ 100 mls/hr 02/01/25 07:23 Dextrose 5% 1,000 Ml IVPB PRN PRN Hypoglycemia Protocol Propofol 100 mls @ 6.678 mls/hr 02/10/25 15:40 02/12/25 09:38 Diprivan IV CONT 30 mcg/kg/min .[id number] HAIM 6.68 mls/hr Titration Protocol 30 MCG/KG/MIN Insulin Aspart 3 - 6 units 02/01/25 12:00 02/12/25 05:56 Insulin Aspart (*Bkc) 100 Units/Ml SUB-Q Not Given Q6HR [facility] Protocol Ipratropium [place] 0.5 mg 02/04/25 14:00 02/12/25 08:27 Ipratropium Br 0.02% Inh Soln 0.5 Mg/2.5 Ml Vial INHALATION 0.5 mg Q6HRT HAIM Administration Levalbuterol HCl 0.63 mg 02/04/25 14:00 02/12/25 08:27 Levalbuterol Neb 1.25 Mg/3 Ml INHALATION 0.63 mg Q6HRT HAIM Administration Metoprolol Tartrate 5 mg 02/04/25 04:26 02/06/25 05:47 Metoprolol Tartrate Inj 5 Mg/5 Ml Vial IV PUSH 5 mg Q6H PRN Administration HR > 130 Metoprolol Tartrate 25 mg 02/12/25 09:00 02/12/25 09:08 Metoprolol Tartrate 25 Mg Tablet PO 25 mg Q12HR HAIM Administration Multi-Ingred Cream/Lotion/Oil/Oint 1 applic 02/01/25 21:00 02/12/25 08:47 Mineral Oil/White Petrolatum Ointment EACH EYE Not Given Q12HR [facility] Ondansetron HCl 4 mg 01/31/25 16:00 Ondansetron Inj 4 Mg/2 Ml Vial IV PUSH Q4H PRN Nausea Pantoprazole Sodium 40 mg 02/01/25 09:00 02/12/25 08:35 Pantoprazole Sodium Iv 40 Mg Vial IV PUSH 40 mg Q12HR HAIM Administration Polyethylene Glycol 17 gm 02/08/25 10:41 Polyethylene Glycol 3350 17 Gm Powd.Pack PO QAM PRN constipation Risperidone 1 mg 02/12/25 09:00 02/12/25 08:47 Risperidone 1 Mg Tablet FEED TUBE 1 mg Q12HR HAIM Administration Risperidone 0.5 mg 02/12/25 21:00 Risperidone 0.5 Mg Tablet FEED TUBE HS HAIM Sodium Chloride 10 ml 02/01/25 14:00 02/12/25 05:18 Central Line Flush IV PUSH 10 ml Q8HR HAIM Administration Sodium Chloride 20 ml 02/01/25 06:37 Central Line Flush IV PUSH PRN PRN after blood draws Sodium Chloride 10 ml 02/12/25 14:00 Central Line Flush IV PUSH Q8HR HAIM Sodium Chloride 10 ml 02/12/25 11:37 Central Line Flush IV PUSH PRN PRN with TPN bag changes Sodium Chloride 20 ml 02/12/25 11:37 Central Line Flush IV PUSH PRN PRN after blood draws Radiology Results: ITS Impressions Head CT 01/31/25 15:47 Impression: No acute intracranial hemorrhage or suspicious mass effect. Chest/Abdomen/Pelvis CTA 01/31/25 15:49 IMPRESSION: Right middle and lower lobe pneumonia with dense consolidation. Left basilar atelectasis. No pulmonary embolus. No aortic dissection. Oral contrast opacifies the entirety of the colon. Supportive lines in good position. No acute pathology within the remainder of the examination, as detailed above. Abdomen X-Ray 02/12/25 05:44 Impression: NG tube in satisfactory position. Chest X-Ray 02/12/25 05:45 Impression: Support tubes, as above. Right IJ line tip is in the right atrium, near the IVC. Clear lungs with stable elevation right hemidiaphragm. Labs Labs: Laboratory Results - last 24 hr 02/11/25 02/11/25 02/12/25 17:08 23:37 00:00 WBC RBC Hgb Hct MCV MCH MCHC RDW Plt Count MPV Puncture Site ABG pH ABG pCO2 ABG pO2 ABG PO2/FiO2 Ratio ABG HCO3 ABG O2 Saturation ABG O2 Content ABG Base Excess A-a Gradient Oxyhemoglobin Carboxyhemoglobin Methemoglobin Reduced Hemoglobin Total Hemoglobin O2 Delivery Device O2 Liters/Min Minute Volume Vent Rate Vent Mode FiO2 Tidal Volume PEEP Peak Inspir Pressure Pressure Support Sodium Potassium Chloride Carbon Dioxide Anion Gap BUN Creatinine Estim Creat Clear Calc Estimated GFR Glucose POC Capillary Glucose 81 66 151 H Calcium Magnesium Total Bilirubin AST ALT Alkaline Phosphatase Total Protein Albumin 02/12/25 02/12/25 02/12/25 04:57 05:26 11:51 WBC 8.4 RBC 3.42 L Hgb 10.1 L Hct 31.9 L MCV 93.3 MCH 29.5 MCHC 31.7 L RDW 16.5 H Plt Count 329 MPV 10.8 H Puncture Site Left radial ABG pH 7.441 ABG pCO2 45.0 ABG pO2 68.2 L ABG PO2/FiO2 Ratio 2.27 ABG HCO3 29.9 H ABG O2 Saturation 94.2 L ABG O2 Content 15.1 L ABG Base Excess 5.1 A-a Gradient 92.8 Oxyhemoglobin 93.1 Carboxyhemoglobin 0.4 Methemoglobin 0.0 Reduced Hemoglobin 6.5 H Total Hemoglobin 11.5 L O2 Delivery Device Ventilator O2 Liters/Min Not Reportable Minute Volume Not Reportable Vent Rate 14 Vent Mode Cmv FiO2 30 Tidal Volume 300 PEEP 5 Peak Inspir Pressure Not Reportable Pressure Support Not Reportable Sodium 141 Potassium 4.0 Chloride 101 Carbon Dioxide 32 H Anion Gap 8 BUN 26 H Creatinine 0.51 L Estim Creat Clear Calc 50 Estimated GFR > 60 Glucose 179 H POC Capillary Glucose 109 H Calcium 9.8 Magnesium 2.2 Total Bilirubin 0.4 AST 63 H ALT 67 H Alkaline Phosphatase 114 Total Protein 8.0 Albumin 4.0
--- NOTE | 2025-02-12 16:40 | P.HP_ITS ---
H&P: HPI History of Present Illness Date/Time: 02/12/25 16:40 Chief Complaint: 69yo female with cerebral palsy, nonverbal, osteoporosis, mild intellectual disabilities, dyslipidemia and schizophrenia here with altered mental status and unresponsiveness. I was called by Dr. Carter for evaluation of patient and possible need for tracheostomy Review of Systems Constitutional: Constitutional: Reports as per HPI ENT: Reports as per HPI Respiratory: Respiratory: Reports as per HPI [facility] Past Medical History Medical History Vitamin D deficiency Osteoporosis Mild intellectual disabilities Gastritis HTN (hypertension) Dyslipidemia Schizophrenia Nonverbal Secondary to CP Cerebral palsy Family History Family History Other Unknown family medical history Social History Social History Smoking status: Unknown if ever smoked Alcohol intake: unknown Substance use: unknown Spiritual care concerns: No Meds Home Medications and Allergies Home Medications ?Medication ?Instructions ?Recorded ?Confirmed ?Type acetaminophen 500 mg tablet 1,000 mg PO Q6H PRN fever or pain 01/31/25 01/31/25 History bisacodyl 5 mg tablet,delayed 10 mg PO Q8H PRN constipation 01/31/25 01/31/25 History release cholecalciferol (vitamin D3) 50 50 mcg PO DAILY 01/31/25 01/31/25 History mcg (2,000 unit) capsule clomipramine 25 mg capsule 25 mg PO DAILY 01/31/25 01/31/25 History clomipramine 50 mg capsule 50 mg PO DAILY 01/31/25 01/31/25 History docusate sodium 100 mg capsule 100 mg PO Q12H 01/31/25 01/31/25 History fluticasone propionate 50 2 spray intranasal HS 01/31/25 02/01/25 History mcg/actuation nasal spray,suspension vit B complex 100 combo no.2 100 1 tablet PO DAILY 01/31/25 01/31/25 History mg tablet,extended release (B-100 Complex ER) ascorbic acid (vitamin C) 500 mg 500 mg PO Q12H 02/01/25 02/01/25 History tablet (Vitamin C) guaifenesin 100 mg/5 mL oral 200 mg PO Q4H PRN cough 02/01/25 02/01/25 History liquid (Chest Congestion Relief) loperamide 2 mg capsule 2 mg PO Q4H PRN loose stool 02/01/25 02/01/25 History magnesium hydroxide 400 mg/5 mL 30 ml PO QID PRN constipation 02/01/25 02/01/25 History oral suspension (Milk of Magnesia) magnesium oxide 250 mg PO DAILY 02/01/25 02/01/25 History metoprolol tartrate 25 mg tablet 25 mg PO BID 02/01/25 02/01/25 History omeprazole 20 mg capsule,delayed 20 mg PO DAILY 02/01/25 02/01/25 History release oxybutynin chloride 5 mg 5 mg PO HS 02/01/25 02/01/25 History tablet,extended release 24 hr potassium chloride 10 mEq 20 meq PO DAILY 02/01/25 02/01/25 History tablet,extended release risperidone 0.5 mg tablet 0.5 mg PO HS 02/01/25 02/01/25 History risperidone 1 mg tablet 1 mg PO Q12H 02/01/25 02/01/25 History Allergies Allergy/AdvReac Type Severity Reaction Status Date / Time cefepime Allergy Unknown Unknown Verified 01/31/25 21:24 Vital Signs Vital Signs - 24 hr 02/11/25 16:42 02/11/25 17:09 02/11/25 18:00 Temperature Pulse Rate 100 96 89 Respiratory Rate 14 Blood Pressure Pulse Oximetry 97 Oxygen Delivery Mechanical Ventilation Fraction of Inspired Oxygen 30 02/11/25 18:00 02/11/25 18:00 02/11/25 18:00 Temperature Pulse Rate 89 91 91 Respiratory Rate 14 16 16 Blood Pressure Pulse Oximetry Oxygen Delivery Fraction of Inspired Oxygen 02/11/25 18:00 02/11/25 18:00 02/11/25 20:00 Temperature 37.7 C H 37.9 C H Pulse Rate 92 90 93 Respiratory Rate 16 24 H Blood Pressure 120/81 105/73 Pulse Oximetry 94 95 Oxygen Delivery Fraction of Inspired Oxygen 02/11/25 20:00 02/11/25 20:00 02/11/25 20:00 Temperature Pulse Rate 95 Respiratory Rate Blood Pressure Pulse Oximetry Oxygen Delivery Mechanical Ventilation Fraction of Inspired Oxygen 30 30 02/11/25 20:09 02/11/25 20:10 02/11/25 20:32 Temperature Pulse Rate 93 93 101 H Respiratory Rate 14 15 Blood Pressure Pulse Oximetry 96 Oxygen Delivery Mechanical Ventilation Fraction of Inspired Oxygen 30 02/11/25 20:33 02/11/25 21:08 02/11/25 22:00 Temperature 37.8 C H Pulse Rate 101 H 110 H 100 Respiratory Rate 15 17 22 H Blood Pressure 118/79 Pulse Oximetry 94 Oxygen Delivery Fraction of Inspired Oxygen 02/11/25 22:00 02/11/25 22:03 02/11/25 22:04 Temperature Pulse Rate 100 98 98 Respiratory Rate 14 14 Blood Pressure Pulse Oximetry Oxygen Delivery Fraction of Inspired Oxygen 02/11/25 23:33 02/12/25 00:00 02/12/25 00:00 Temperature Pulse Rate 101 H Respiratory Rate Blood Pressure Pulse Oximetry 96 Oxygen Delivery Mechanical Ventilation Mechanical Ventilation Fraction of Inspired Oxygen 30 30 30 02/12/25 00:00 02/12/25 00:00 02/12/25 00:03 Temperature 37.1 C Pulse Rate 111 H 108 H 107 H Respiratory Rate 24 H 21 H Blood Pressure 141/51 H Pulse Oximetry 97 Oxygen Delivery Fraction of Inspired Oxygen 02/12/25 00:03 02/12/25 00:55 02/12/25 01:20 Temperature Pulse Rate 107 H 118 H 122 H Respiratory Rate 21 H 18 25 H Blood Pressure Pulse Oximetry Oxygen Delivery Fraction of Inspired Oxygen 02/12/25 01:26 02/12/25 01:28 02/12/25 01:33 Temperature Pulse Rate 118 H 123 H 120 H Respiratory Rate 17 25 H Blood Pressure Pulse Oximetry 94 Oxygen Delivery Mechanical Ventilation Fraction of Inspired Oxygen 30 02/12/25 01:48 02/12/25 02:00 02/12/25 02:00 Temperature 37.7 C H Pulse Rate 120 H 119 H 115 H Respiratory Rate 16 17 24 H Blood Pressure 143/93 H Pulse Oximetry 93 Oxygen Delivery Fraction of Inspired Oxygen 02/12/25 02:00 02/12/25 02:02 02/12/25 02:23 Temperature Pulse Rate 117 H 115 H 120 H Respiratory Rate 17 14 Blood Pressure Pulse Oximetry Oxygen Delivery Fraction of Inspired Oxygen 02/12/25 02:24 02/12/25 02:28 02/12/25 04:00 Temperature Pulse Rate 120 H 115 H 118 H Respiratory Rate 14 18 Blood Pressure Pulse Oximetry 93 Oxygen Delivery Mechanical Ventilation Fraction of Inspired Oxygen 30 03/31/25 04:00 02/12/25 04:00 02/12/25 04:00 Temperature 37.2 C Pulse Rate 118 H 129 H Respiratory Rate 18 22 H Blood Pressure 129/82 Pulse Oximetry 93 Oxygen Delivery Mechanical Ventilation Fraction of Inspired Oxygen 30 02/12/25 04:00 02/12/25 04:00 02/12/25 04:55 Temperature Pulse Rate 127 H 122 H Respiratory Rate Blood Pressure Pulse Oximetry 95 Oxygen Delivery Mechanical Ventilation Fraction of Inspired Oxygen 30 02/12/25 05:49 02/12/25 05:49 02/12/25 06:00 Temperature Pulse Rate 120 H 120 H 118 H Respiratory Rate 15 15 14 Blood Pressure Pulse Oximetry Oxygen Delivery Fraction of Inspired Oxygen 02/12/25 06:00 02/12/25 06:00 02/12/25 06:00 Temperature 37.2 C Pulse Rate 118 H 118 H 118 H Respiratory Rate 14 22 H Blood Pressure 110/70 Pulse Oximetry 97 Oxygen Delivery Fraction of Inspired Oxygen 02/12/25 07:01 02/12/25 07:02 02/12/25 07:49 Temperature Pulse Rate 104 H 102 H 93 Respiratory Rate 14 14 14 Blood Pressure Pulse Oximetry Oxygen Delivery Fraction of Inspired Oxygen 02/12/25 08:00 02/12/25 08:00 02/12/25 08:00 Temperature 36.8 C Pulse Rate 90 90 89 Respiratory Rate 14 14 Blood Pressure 82/58 L Pulse Oximetry 97 Oxygen Delivery Fraction of Inspired Oxygen 02/12/25 08:00 02/12/25 08:00 02/12/25 08:04 Temperature Pulse Rate 89 Respiratory Rate 14 Blood Pressure Pulse Oximetry Oxygen Delivery Mechanical Ventilation Fraction of Inspired Oxygen 30 02/12/25 08:21 02/12/25 08:30 02/12/25 08:30 Temperature Pulse Rate 94 96 96 Respiratory Rate 14 14 Blood Pressure Pulse Oximetry 100 Oxygen Delivery Mechanical Ventilation Fraction of Inspired Oxygen 02/12/25 08:54 02/12/25 09:08 02/12/25 09:13 Temperature Pulse Rate 113 H 119 H 119 H Respiratory Rate 17 27 H Blood Pressure Pulse Oximetry Oxygen Delivery Fraction of Inspired Oxygen 02/12/25 09:14 02/12/25 09:38 02/12/25 10:00 Temperature 36.8 C Pulse Rate 120 H 113 H 104 H Respiratory Rate 14 16 16 Blood Pressure 106/70 Pulse Oximetry 99 Oxygen Delivery Fraction of Inspired Oxygen 02/12/25 10:00 02/12/25 10:00 02/12/25 11:37 Temperature Pulse Rate 104 H 104 H 105 H Respiratory Rate 19 Blood Pressure Pulse Oximetry 97 Oxygen Delivery Mechanical Ventilation Fraction of Inspired Oxygen 30 02/12/25 12:00 02/12/25 12:00 02/12/25 12:00 Temperature 37.4 C Pulse Rate 109 H 109 H 109 H Respiratory Rate 17 17 Blood Pressure 122/71 Pulse Oximetry 98 Oxygen Delivery Fraction of Inspired Oxygen 02/12/25 14:00 02/12/25 14:00 02/12/25 14:00 Temperature 37.7 C H Pulse Rate 114 H 114 H 117 H Respiratory Rate 16 17 Blood Pressure 125/79 Pulse Oximetry 95 Oxygen Delivery Fraction of Inspired Oxygen 02/12/25 14:51 02/12/25 14:51 02/12/25 15:22 Temperature Pulse Rate 115 H 115 H 117 H Respiratory Rate 17 16 Blood Pressure Pulse Oximetry 97 Oxygen Delivery Mechanical Ventilation Fraction of Inspired Oxygen 30 02/12/25 16:00 Temperature 37.7 C H Pulse Rate 121 H Respiratory Rate 20 Blood Pressure 131/84 Pulse Oximetry 94 Oxygen Delivery Fraction of Inspired Oxygen Exam HENMT: Head: normocephalic and atraumatic Ears: external ears normal and EAC's normal Face/Nose/Sinus: Normal external nose present and Normal nares present Mouth: Yes lip normal Neck: Neck: normal visual inspection H&P: Results Labs Labs: Short CBC 02/12/25 Range/Units 05:26 WBC 8.4 (4.5-10.0) K/mm3 Hgb 10.1 L (12.0-15.0) g/dL Hct 31.9 L (37.0-47.0) % Plt Count 329 (150-375) k/mm3 BMP 02/12/25 05:26 Sodium 141 Potassium 4.0 Chloride 101 Carbon Dioxide 32 H BUN 26 H Creatinine 0.51 L Glucose 179 H Calcium 9.8 Liver Function 02/12/25 Range/Units 05:26 Total Bilirubin 0.4 (0.2-1.3) mg/dL AST 63 H (14-36) U/L ALT 67 H (6-35) U/L Alkaline Phosphatase 114 (38-126) U/L Albumin 4.0 (3.5-5.1) g/dL Assessment and Plan Assessment and plan (1) Acute hypoxic respiratory failure: Code(s): J96.01 - Acute respiratory failure with hypoxia Status: Acute Plan 69yo female with cerebral palsy, nonverbal, osteoporosis, mild intellectual disabilities, dyslipidemia and schizophrenia here with altered mental status and unresponsiveness. intubated since 01/31/2025 - will schedule tracheostomy under general anaesthesia on 02/16/2025
[2025-02-12] MEDS: ACETAMINOPHEN ELIXIR 325 MG/10.15 ML UDC 650 MG PO (16:43)
[2025-02-12] MEDS: PROPOFOL IV EMULSION 100 ML 7.79 MG IV CONT (17:36)
[2025-02-12 18:26] LABS: Glucose Point of Care 93 mg/dl (65-105)
[2025-02-12] MEDS: risperiDONE 0.5 MG TABLET FEED TUBE (21:55)
[2025-02-12] MEDS: MINERAL OIL/WHITE PETROLATUM OINTMENT 1 APPLIC EACH EYE (21:56)
[2025-02-12 23:46] LABS: Glucose Point of Care 85 mg/dl (65-105)
[2025-02-13] VITALS (32 sets, daily range): BP systolic 100–147; BP diastolic 68–92; PULSE 92–126; RESP 12–20; TEMP 37.2–37.9; O2SAT 94–100
[2025-02-13] MEDS: PROPOFOL IV EMULSION 100 ML 11.13 MG IV CONT ×3 (01:05→16:40)
[2025-02-13] MEDS: LEVALBUTEROL NEB 1.25 MG/3 ML 0.63 MG INHALATION ×4 (02:05→19:54)
[2025-02-13] MEDS: IPRATROPIUM BR 0.02% INH SOLN 0.5 MG/2.5 ML VIAL INHALATION ×4 (02:05→19:54)
[2025-02-13] MEDS: CENTRAL LINE FLUSH 10 ML IV PUSH ×6 (05:05→22:05)
[2025-02-13 05:07] LABS: Alveolar/Arterial O2 Gradient 78.8 mmHg; Base Excess ABG 5.3 mEq/l (+/-2.0); Carboxyhemoglobin 0.3 % THb (0-2.0); Fractional Inspired Oxygen 30 %; HCO3 ABG 30.3 mEq/l (22.0-26.0); Oxygen Content ABG 14.3 %vol (16.0-22.0); Oxygen Saturation ABG 96.2 % (95.0-100.0); Oxyhemoglobin 95.5 % THb (90.0-100.0); PCO2 ABG 46.1 mmHg (35.0-45.0); PO2 ABG 80.9 mmHg (80.0-100.0); Reduced Hemoglobin 4.2 %THb (0-5.0); Total Hemoglobin 10.6 g/dL (12.0-18.0); pH ABG 7.435 (7.350-7.450)
[2025-02-13 05:11] LABS: Device VENTILATOR; Modified Allen's Test Pass; Site Drawn RIGHT RADIAL
[2025-02-13 05:12] LABS: Arterial Blood Gas PEEP 5 cmH2O; Arterial Blood Gas Tidal Volume 300 ml; Arterial Blood Gas Vent Mode CMV; Arterial Blood Gas Ventilator rate 14 /MIN
[2025-02-13 05:20] LABS: Hematocrit 29.9 % (37.0-47.0); Hemoglobin 9.4 g/dL (12.0-15.0); Mean Corpuscular HGB Conc 31.4 g/dl (32-36); Mean Corpuscular Hemoglobin 29.5 pg (26-34); Mean Corpuscular Volume 93.7 fl (80-100); Mean Platelet Volume 10.5 fl (7.4-10.4); Platelet Count Result 336 k/mm3 (150-375); Red Blood Count 3.19 M/mm3 (4.2-5.4); Red Cell Distribution Width 16.5 % (11.5-14.5); White Blood Count 7.2 K/mm3 (4.5-10.0)
[2025-02-13 05:41] LABS: Alanine Aminotransferase 53 U/L (6-35); Albumin Level 3.8 g/dL (3.5-5.1); Alkaline Phosphatase 107 U/L (38-126); Anion Gap 9 mmol/L (4-12); Aspartate Amino Transferase 46 U/L (14-36); Bilirubin,Total 0.3 mg/dL (0.2-1.3); Blood Urea Nitrogen 25 mg/dL (7-17); Calcium 9.2 mg/dL (8.4-10.2); Carbon Dioxide 32 mmol/L (22-30); Chloride 101 mmol/L (98-107); Estimated CRCL calculation 54 ml/min; Estimated Glomerular Filt Rate > 60; Glucose 109 mg/dL (65-110); Potassium 3.7 mmol/L (3.4-5.0); Sodium 142 mmol/L (137-145)
--- NOTE | 2025-02-13 09:24 | WPDINTPN ---
Progress Note: A&P Assessment and Plan (1) Acute hypoxic respiratory failure: Code(s): J96.01 - Acute respiratory failure with hypoxia Status: Acute Assessment and Plan: 01/31/2025: Patient presented from [facility] with hypoxia, periods of apnea, and unresponsiveness. She was brought to the ED being bagged, she did not have a gag and was unresponsive in the ED so was intubated upon arrival to the ED. central line was also inserted as she was hypotensive CT scan showed right middle and right lower lobe consolidation. Since then patient has also received decent amount of IV fluids 02/05-accidentally got extubated during turning by the nursing staff. She was intubated 02/06 failed weaning trial. patient kept on going into apnea ventilation. Precedex rate was decreased and patient is now on ASV. 02/07 weaning trial was attempted again. Patient had high RSBI on PSV 03/19. Patient was erratically breathing agitated and had drop in sats. Breathing trial was aborted 02/08 failed weaning trial due to high RSBI 02/09 I attempted a SBT weaning trial this morning. On 03/19 patient respiratory rate was in 40s with tidal volume and 100s. I had to increase the pressure support to 12 to get adequate RSBI even then patient's breathing was at. patient is not a candidate for extubation at this point. She will not be able to use BiPAP considering cerebral palsy and inability to communicate. I will try to continue weaning but I anticipate that if patient does not get extubated then she may need trach for continued ventilatory support 02/10 patient failed weaning trial again due to respiratory rate in high 40s and tidal volumes in 100s.. She requires pressure support of 12/5 for adequate ventilatory numbers. She is not a candidate for BiPAP. I anticipate patient will likely need tracheostomy. I called his healthcare power assistant district attorney who is on vacation at this time I will speak him on Wednesday. 02/11 Lasix again today and plan for weaning trial again today 02/12 self-extubated. Patient was given opportunity to see if she can tolerate noninvasive oxygenation support. But patient was tachypneic with use of accessory muscle and had to be reintubated. Patient also had airway edema and was given dexamethasone At this point patient has failed multiple days of trial and is quite debilitated and weak and unable to come off the ventilator. I spoke to patient's healthcare power assistant district attorney Mateo Warren who regarding option of proceeding need tracheostomy and PEG tube placement for ongoing ventilator support. He is agreeable to proceed with both and consented. Consent was also obtained for a PICC line ENT consulted for tracheostomy. -currently on CMV mode of ventilation, peep of 5 and 30 % FiO2 -ABGs and chest x-ray reviewed, ventilator adjusted by decreasing the rate -continue bronchodilators and Mucomyst nebulizer -completed course of Zosyn and azithromycin (2) Sepsis: Code(s): A41.9 - Sepsis, unspecified organism Status: Acute Assessment and Plan: Patient presented with altered mental status, hypoxia, apnea, pneumonia. Patient initially required vasopressors but now off 4/ low-grade fever overnight with increase tachycardia. Tachycardia could be secondary discontinuation of Precedex. WBC normal Chest x-ray shows clear lungs Check sputum culture, change Arredondo, check UA, check blood cultures check procalcitonin level Hold antibiotics until more information is available (3) AMS (altered mental status): Qualifiers: Altered mental status type: unspecified Qualified Code(s): R41.82 - Altered mental status, unspecified Code(s): R41.82 - Altered mental status, unspecified Status: Acute Assessment and Plan: Encephalopathy could be related to hypoxia, hypercapnia, pneumonia/infection/hypotension, could be related to medication -head CT negative at the time of presentation -currently intubated -continue propofol I will discontinue Precedex -upon review of chart patient appears to be nonverbal at baseline and communicates her needs with gestures. She walks around in the hallways and is able to eat modified diet (4) Pneumonia: Qualifiers: Pneumonia type: due to unspecified organism Laterality: right Lung location: unspecified part of lung Qualified Code(s): J18.9 - Pneumonia, unspecified organism Code(s): J18.9 - Pneumonia, unspecified organism Status: Acute Assessment and Plan: Chest x-ray and CTA chest show right lower lobe consolidation -according the [facility] records: Repeat CT chest showed interval development of new airspace opacities raising concern for aspiration pneumonia. She was transition to Zosyn from cefepime. MBS performed on 01/[address] [facility] which showed no evidence of aspiration despite coughing especially with swallowing. - completed course of Zosyn, azithromycin (01/31) -MRSA screen is negative, vancomycin discontinued (02/01) (5) Cerebral palsy: Code(s): G80.9 - Cerebral palsy, unspecified Status: Acute Assessment and Plan: Patient with cerebral palsy, mild intellectual disability, schizophrenia, nonverbal at baseline according the chart -patient on risperidone, will restart prior to extubation as she is currently sedated and intubated (6) Anemia: Code(s): D64.9 - Anemia, unspecified Status: Acute Assessment and Plan: Patient admitted with a hemoglobin of 10.3 on 01/31 -02/01: Hemoglobin dropped to 7.7, a repeat CBC was done which showed a hemoglobin of 7.3 -will check stools for occult blood, -folic acid and vitamin B12 level within normal limits -low iron levels, low TIBC, will give Venofer -LDH is normal, haptoglobin is pending -Protonix IV q.12 hours -continue to monitor (7) Electrolyte imbalance: Code(s): E87.8 - Other disorders of electrolyte and fluid balance, not elsewhere classified Status: Acute Assessment and Plan: Continue free water flush to 100 mL Replace low potassium (8) Sinus tachycardia: Code(s): R00.0 - Tachycardia, unspecified Status: Acute Assessment and Plan: 02/04: Patient developed SVT/sinus tachycardia overnight with rates in the 180-200s. Was given IV metoprolol x1 with improvement which brought her rate start to 130s. -could be multifactorial, related to sepsis, anemia, coronary artery disease -TSH normal -will continue metoprolol -currently sinus tachycardia monitor - mild elevation in troponin level with the levels have trended down -cardiology consult 02/02/2025: Echocardiogram Summary 1. Complete two-dimensional, color flow and Doppler transthoracic echocardiogram is performed. 2. Left ventricular chamber dimension is normal. 3. Left ventricular systolic function is normal, estimated at 60-65%. 4. The left ventricular diastolic function is grade I diastolic dysfunction. 5. E/e' 7 is not elevated. 6. There is mild aortic valve sclerosis. 7. There is trace tricuspid valve regurgitation. 8. Mild pulmonary hypertension, estimated pulmonary arterial systolic pressure is 41 mmHg. (9) Constipation: Code(s): K59.00 - Constipation, unspecified Status: Acute Assessment and Plan: 02/04: KUB showed moderate fecal retention -improved with laxatives as patient is now having bowel movements. 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 I spoke to him this morning and we discussed patient's failure to wean. I discussed option of tracheostomy PEG tube and PICC line he is agreeable to proceed with all. I explained him that we may not have ENT coverage and we may have to transfer the patient very tracheostomy and he was agreeable to transfer to either [facility] or [facility] for the procedure if needed Critical Care Time Spent: 30 minutes Due to a high probability of clinically significant, life threatening deterioration, the patient required my highest level of preparedness to intervene emergently and I personally spent this critical care time directly and personally managing the patient. This critical care time included obtaining a history; examining the patient; pulse oximetry; ordering and review of studies; arranging urgent treatment with development of a management plan; evaluation of patient's response to treatment; frequent reassessment; and discussions with other providers. It was exclusive of separately billable procedures and treating other patients and teaching time. Please see Assessment and Plan section and the rest of the note for further information on patient assessment and treatment This dictation may have been done utilizing a voice recognition system. Attempts have been made to correct errors. However, there may be uncorrected grammatical, spelling, and recognitions errors present. Subjective Date/time seen: 02/13/25 Overnight events reviewed. Low-grade fever overnight Continues to be on mechanical ventilation Increase tachycardia Continues to be sedated with propofol Of Vitals acceptable Interval history: Reason for consult: Acute respiratory failure, pneumonia, altered mental status, unresponsiveness, anemia Review of Systems Review of Systems: ROS unobtainable: Yes unobtainable due to endotracheal tube, unobtainable due to medical condition and unobtainable due to mental status Exam Narrative: General: Petite female/malnourished, in no acute distress HEENT:? Pupils are pinpoint, sluggish, ETT in place Neck:? Supple Respiratory:? Coarse breath sounds bilaterally, rales on right base, no wheezing, adequate air entry otherwise Cardiac:? S1-S2 normal, regular rate and rhythm Abdomen:? Soft, nontender, nondistended, hypoactive bowel sounds Extremities:? Trace edema, bilateral pedal pulses are palpable Neuro:? Intubated, sedated, Skin:? No skin lesions noted Psych:? Unable to assess at this time Objective Data Vital Signs Vital Signs: Vital Signs - 24 hr 02/12/25 09:38 02/12/25 10:00 02/12/25 10:00 Temperature 36.8 C Pulse Rate 113 H 104 H 104 H Respiratory Rate 16 16 19 Blood Pressure 106/70 Pulse Oximetry 99 Oxygen Delivery Fraction of Inspired Oxygen 02/12/25 10:00 02/12/25 11:37 02/12/25 12:00 Temperature 37.4 C Pulse Rate 104 H 105 H 109 H Respiratory Rate 17 Blood Pressure 122/71 Pulse Oximetry 97 98 Oxygen Delivery Mechanical Ventilation Fraction of Inspired Oxygen 02/12/25 12:00 02/12/25 12:00 02/12/25 12:00 Temperature Pulse Rate 109 H 109 H Respiratory Rate 17 Blood Pressure Pulse Oximetry Oxygen Delivery Mechanical Ventilation Fraction of Inspired Oxygen 02/12/25 12:00 02/12/25 14:00 02/12/25 14:00 Temperature Pulse Rate 114 H 114 H Respiratory Rate 16 Blood Pressure Pulse Oximetry Oxygen Delivery Fraction of Inspired Oxygen 02/12/25 14:00 02/12/25 14:51 02/12/25 14:51 Temperature 37.7 C H Pulse Rate 117 H 115 H 115 H Respiratory Rate 17 17 Blood Pressure 125/79 Pulse Oximetry 95 97 Oxygen Delivery Mechanical Ventilation Fraction of Inspired Oxygen 02/12/25 15:22 02/12/25 16:00 02/12/25 16:00 Temperature 37.7 C H Pulse Rate 117 H 121 H 122 H Respiratory Rate 16 20 Blood Pressure 131/84 Pulse Oximetry 94 Oxygen Delivery Fraction of Inspired Oxygen 02/12/25 16:00 02/12/25 16:00 02/12/25 16:00 Temperature Pulse Rate 114 H Respiratory Rate 16 Blood Pressure Pulse Oximetry Oxygen Delivery Mechanical Ventilation Fraction of Inspired Oxygen 30 02/12/25 16:43 02/12/25 16:44 02/12/25 17:04 Temperature 37.8 C H Pulse Rate 118 H 118 H Respiratory Rate 22 H Blood Pressure Pulse Oximetry 99 Oxygen Delivery Mechanical Ventilation Fraction of Inspired Oxygen 30 02/12/25 17:36 02/12/25 17:36 02/12/25 18:00 Temperature 37.7 C H Pulse Rate 117 H 117 H 124 H Respiratory Rate 21 H 21 H 19 Blood Pressure 139/80 Pulse Oximetry 98 Oxygen Delivery Fraction of Inspired Oxygen 02/12/25 18:00 02/12/25 18:00 02/12/25 19:25 Temperature Pulse Rate 120 H 120 H 130 H Respiratory Rate 19 22 H Blood Pressure Pulse Oximetry Oxygen Delivery Fraction of Inspired Oxygen 02/12/25 19:40 02/12/25 20:00 02/12/25 20:00 Temperature 37.6 C H Pulse Rate 130 H 121 H 126 H Respiratory Rate 22 H 20 21 H Blood Pressure 146/95 H Pulse Oximetry 97 Oxygen Delivery Fraction of Inspired Oxygen 02/12/25 20:00 02/12/25 20:00 02/12/25 20:45 Temperature Pulse Rate 119 H 129 H Respiratory Rate 18 Blood Pressure Pulse Oximetry 95 Oxygen Delivery Mechanical Ventilation Fraction of Inspired Oxygen 30 02/12/25 20:49 02/12/25 20:49 02/12/25 21:12 Temperature Pulse Rate 113 H 113 H 113 H Respiratory Rate 17 17 Blood Pressure Pulse Oximetry 96 Oxygen Delivery Mechanical Ventilation Fraction of Inspired Oxygen 30 02/12/25 21:55 02/12/25 22:00 02/12/25 22:00 Temperature 37.7 C H Pulse Rate 127 H 102 H 129 H Respiratory Rate 18 Blood Pressure 170/103 H Pulse Oximetry 95 Oxygen Delivery Fraction of Inspired Oxygen 02/12/25 22:00 02/12/25 23:00 02/13/25 00:00 Temperature 37.6 C H Pulse Rate 106 H 102 H 109 H Respiratory Rate 18 17 Blood Pressure 143/92 H Pulse Oximetry 96 95 Oxygen Delivery Mechanical Ventilation Fraction of Inspired Oxygen 30 02/13/25 00:00 02/13/25 00:00 02/13/25 00:00 Temperature Pulse Rate 110 H 110 H Respiratory Rate 18 Blood Pressure Pulse Oximetry Oxygen Delivery Fraction of Inspired Oxygen 30 02/13/25 00:30 02/13/25 01:05 02/13/25 01:05 Temperature Pulse Rate 110 H 116 H 116 H Respiratory Rate 18 20 20 Blood Pressure Pulse Oximetry 95 Oxygen Delivery Mechanical Ventilation Fraction of Inspired Oxygen 30 02/13/25 02:00 02/13/25 02:00 02/13/25 02:00 Temperature 37.6 C Pulse Rate 120 H 120 H 120 H Respiratory Rate 18 20 Blood Pressure 140/90 Pulse Oximetry 94 Oxygen Delivery Fraction of Inspired Oxygen 02/13/25 02:05 02/13/25 02:09 02/13/25 02:25 Temperature Pulse Rate 122 H 121 H 122 H Respiratory Rate 17 17 Blood Pressure Pulse Oximetry 95 Oxygen Delivery Mechanical Ventilation Fraction of Inspired Oxygen 30 02/13/25 04:00 02/13/25 04:00 02/13/25 04:00 Temperature 37.4 C Pulse Rate 124 H 118 H Respiratory Rate 19 20 Blood Pressure 147/90 H Pulse Oximetry 96 Oxygen Delivery Fraction of Inspired Oxygen 30 02/13/25 04:00 02/13/25 04:15 02/13/25 05:13 Temperature Pulse Rate 123 H 124 H 122 H Respiratory Rate 19 Blood Pressure Pulse Oximetry 96 94 Oxygen Delivery Mechanical Ventilation Mechanical Ventilation Fraction of Inspired Oxygen 30 30 02/13/25 06:00 02/13/25 06:00 02/13/25 06:00 Temperature 37.6 C H Pulse Rate 115 H 115 H 114 H Respiratory Rate 20 18 Blood Pressure 108/71 Pulse Oximetry 98 Oxygen Delivery Fraction of Inspired Oxygen 02/13/25 07:57 02/13/25 07:58 Temperature Pulse Rate 123 H 122 H Respiratory Rate 17 Blood Pressure Pulse Oximetry 98 Oxygen Delivery Mechanical Ventilation Fraction of Inspired Oxygen 30 Intake/Output Intake/Output: Intake & Output 02/10/25 02/11/25 02/12/25 02/13/25 23:59 23:59 23:59 23:59 Intake Total 1587.9 1673.9 1755.9 953.2 Output Total 2450 1460 1000 600 Balance -862.1 213.9 755.9 353.2 Meds/Results Medications: Active Medications Generic Name Dose Route Start Last Admin Trade Name Freq PRN Reason Stop Dose Admin Acetaminophen 650 mg 02/03/25 22:36 02/12/25 16:43 Acetaminophen Elixir 325 Mg/10.15 Ml Udc PO 650 mg Q6H PRN Administration Mild Pain (1-3) or Fever Dextrose 12.5 gm 02/01/25 07:23 03/30/25 23:40 Dextrose 50% 25 Gm/50 Ml Syringe IV PUSH 12.5 gm PRN PRN Administration Hypoglycemia Protocol Enoxaparin Sodium 40 mg 02/07/25 09:00 02/12/25 08:35 Enoxaparin 40 Mg/0.4 Ml Syringe SUB-Q 40 mg DAILY HAIM Administration Glucagon 1 mg 02/01/25 07:23 Glucagon For Inj 1 Mg Vial IM PRN PRN Hypoglycemia Protocol Glucose 15 gm 02/01/25 07:23 Glucose Oral Gel 15 Gm Of Glucse In 37.5 Gm Tube PO PRN PRN Hypoglycemia Protocol Dextrose 1,000 mls @ 100 mls/hr 02/01/25 07:23 Dextrose 5% 1,000 Ml IVPB PRN PRN Hypoglycemia Protocol Propofol 100 mls @ 11.13 mls/hr 02/10/25 15:40 02/13/25 06:00 Diprivan IV CONT 50 mcg/kg/min .Q9H HAIM 11.13 mls/hr Titration Protocol 50 MCG/KG/MIN Insulin Aspart 3 - 6 units 02/01/25 12:00 02/13/25 05:43 Insulin Aspart (*Bkc) 100 Units/Ml SUB-Q Not Given Q6HR [facility] Protocol Ipratropium Lamy 0.5 mg 02/04/25 14:00 02/13/25 07:55 Ipratropium Br 0.02% Inh Soln 0.5 Mg/2.5 Ml Vial INHALATION 0.5 mg Q6HRT HAIM Administration Levalbuterol HCl 0.63 mg 02/04/25 14:00 02/13/25 07:56 Levalbuterol Neb 1.25 Mg/3 Ml INHALATION 0.63 mg Q6HRT HAIM Administration Metoprolol Tartrate 5 mg 02/04/25 04:26 02/06/25 05:47 Metoprolol Tartrate Inj 5 Mg/5 Ml Vial IV PUSH 5 mg Q6H PRN Administration HR > 130 Metoprolol Tartrate 25 mg 02/12/25 09:00 02/12/25 21:55 Metoprolol Tartrate 25 Mg Tablet PO 25 mg Q12HR HAIM Administration Multi-Ingred Cream/Lotion/Oil/Oint 1 applic 02/01/25 21:00 02/12/25 21:56 Mineral Oil/White Petrolatum Ointment EACH EYE 1 applic Q12HR HAIM Administration Ondansetron HCl 4 mg 01/31/25 16:00 Ondansetron Inj 4 Mg/2 Ml Vial IV PUSH Q4H PRN Nausea Pantoprazole Sodium 40 mg 02/01/25 09:00 02/12/25 21:55 Pantoprazole Sodium Iv 40 Mg Vial IV PUSH 40 mg Q12HR HAIM Administration Polyethylene Glycol 17 gm 02/08/25 10:41 Polyethylene Glycol 3350 17 Gm Powd.Pack PO QAM PRN constipation Risperidone 1 mg 02/12/25 09:00 02/12/25 21:55 Risperidone 1 Mg Tablet FEED TUBE 1 mg Q12HR HAIM Administration Risperidone 0.5 mg 02/12/25 21:00 02/12/25 21:55 Risperidone 0.5 Mg Tablet FEED TUBE 0.5 mg HS HAIM Administration Sodium Chloride 10 ml 02/01/25 14:00 02/13/25 05:05 Central Line Flush IV PUSH 10 ml Q8HR HAIM Administration Sodium Chloride 20 ml 02/01/25 06:37 Central Line Flush IV PUSH PRN PRN after blood draws Sodium Chloride 10 ml 02/12/25 14:00 02/13/25 05:05 Central Line Flush IV PUSH 10 ml Q8HR HAIM Administration Sodium Chloride 10 ml 02/12/25 11:37 Central Line Flush IV PUSH PRN PRN with TPN bag changes Sodium Chloride 20 ml 02/12/25 11:37 Central Line Flush IV PUSH PRN PRN after blood draws Radiology Results: ITS Impressions Head CT 01/31/25 15:47 Impression: No acute intracranial hemorrhage or suspicious mass effect. Chest/Abdomen/Pelvis CTA 01/31/25 15:49 IMPRESSION: Right middle and lower lobe pneumonia with dense consolidation. Left basilar atelectasis. No pulmonary embolus. No aortic dissection. Oral contrast opacifies the entirety of the colon. Supportive lines in good position. No acute pathology within the remainder of the examination, as detailed above. Abdomen X-Ray 02/12/25 05:44 Impression: NG tube in satisfactory position. Chest X-Ray 02/13/25 06:22 Impression: Support tubes, as above. Clear lungs with elevated right hemidiaphragm. Labs Labs: Laboratory Results - last 24 hr 02/12/25 02/12/25 02/12/25 11:51 18:21 23:26 WBC RBC Hgb Hct MCV MCH MCHC RDW Plt Count MPV Puncture Site ABG pH ABG pCO2 ABG pO2 ABG PO2/FiO2 Ratio ABG HCO3 ABG O2 Saturation ABG O2 Content ABG Base Excess A-a Gradient Oxyhemoglobin Carboxyhemoglobin Methemoglobin Reduced Hemoglobin Total Hemoglobin O2 Delivery Device O2 Liters/Min Minute Volume Vent Rate Vent Mode FiO2 Tidal Volume PEEP Peak Inspir Pressure Pressure Support Sodium Potassium Chloride Carbon Dioxide Anion Gap BUN Creatinine Estim Creat Clear Calc Estimated GFR Glucose POC Capillary Glucose 109 H 93 85 Calcium Magnesium Total Bilirubin AST ALT Alkaline Phosphatase Total Protein Albumin 02/13/25 05:04 WBC 7.2 RBC 3.19 L Hgb 9.4 L Hct 29.9 L MCV 93.7 MCH 29.5 MCHC 31.4 L RDW 16.5 H Plt Count 336 MPV 10.5 H Puncture Site Right radial ABG pH 7.435 ABG pCO2 46.1 H ABG pO2 80.9 ABG PO2/FiO2 Ratio 2.70 ABG HCO3 30.3 H ABG O2 Saturation 96.2 ABG O2 Content 14.3 L ABG Base Excess 5.3 A-a Gradient 78.8 Oxyhemoglobin 95.5 Carboxyhemoglobin 0.3 Methemoglobin 0.0 Reduced Hemoglobin 4.2 Total Hemoglobin 10.6 L O2 Delivery Device Ventilator O2 Liters/Min Not Reportable Minute Volume Not Reportable Vent Rate 14 Vent Mode Cmv FiO2 30 Tidal Volume 300 PEEP 5 Peak Inspir Pressure Not Reportable Pressure Support Not Reportable Sodium 142 Potassium 3.7 Chloride 101 Carbon Dioxide 32 H Anion Gap 9 BUN 25 H Creatinine 0.47 L Estim Creat Clear Calc 54 Estimated GFR > 60 Glucose 109 POC Capillary Glucose Calcium 9.2 Magnesium 2.0 Total Bilirubin 0.3 AST 46 H ALT 53 H Alkaline Phosphatase 107 Total Protein 8.0 Albumin 3.8 Quality VTE Prophylaxis VTE prophylaxis: mechanical ordered and pharmacologic ordered
[2025-02-13] MEDS: ENOXAPARIN 40 MG/0.4 ML SYRINGE SUB-Q (09:27)
[2025-02-13] MEDS: METOPROLOL TARTRATE 25 MG TABLET PO ×2 (09:27→22:06)
[2025-02-13] MEDS: PANTOPRAZOLE SODIUM IV 40 MG VIAL IV PUSH ×2 (09:27→22:05)
[2025-02-13] MEDS: risperiDONE 1 MG TABLET FEED TUBE ×2 (09:27→22:05)
[2025-02-13] MEDS: MINERAL OIL/WHITE PETROLATUM OINTMENT 1 APPLIC EACH EYE ×2 (09:27→22:06)
[2025-02-13] MEDS: POTASSIUM BICARBONATE 25 MEQ TABEF FEED TUBE (09:39)
--- NOTE | 2025-02-13 09:40 | P.CONGI_ITS ---
Assessment and Plan Assessment and plan (1) Visit for feeding tube placement: Code(s): Z46.59 - Encounter for fitting and adjustment of other gastrointestinal appliance and device Status: Acute (2) Anemia: Qualifiers: Anemia type: unspecified type Qualified Code(s): D64.9 - Anemia, unspecified Code(s): D64.9 - Anemia, unspecified Status: Acute (3) Sepsis: Qualifiers: Sepsis type: sepsis due to unspecified organism Sepsis acute organ dysfunction status: unspecified Qualified Code(s): A41.9 - Sepsis, unspecified organism Code(s): A41.9 - Sepsis, unspecified organism Status: Acute (4) Cerebral palsy: Qualifiers: Cerebral palsy type: other type Qualified Code(s): G80.8 - Other cerebral palsy Code(s): G80.9 - Cerebral palsy, unspecified Status: Acute (5) Acute hypoxic respiratory failure: Code(s): J96.01 - Acute respiratory failure with hypoxia Status: Acute (6) Pneumonia: Qualifiers: Pneumonia type: due to unspecified organism Laterality: right Lung location: unspecified part of lung Qualified Code(s): J18.9 - Pneumonia, unspecified organism Code(s): J18.9 - Pneumonia, unspecified organism Status: Acute Plan 1. PEG tube placement: Patient with cerebral palsy and nonverbal. Currently sedated and intubated due to acute respiratory failure and pneumonia. Currently receiving tube feedings at 50 mL per hour by NG tube. GI has been consulted for PEG tube placement due to need for ongoing vent support. Patient is already very thin appearing with a BMI of 15.9. Patient currently on Lovenox and b.i.d. PPI. Labs today show HGB 9, HCT 30, platelets 336. INR on 01/31 was 1.1. * recheck INR * Plan for EGD with PEG tube placement tomorrow * Patient allergic to Ancef * Hold Lovenox * Hold tube feedings after midnight 2. Acute respiratory failure/pneumonia/ metabolic encephalopathy/Sepsis: P atient admitted for hypoxia and altered mental status. Currently being treated for sepsis, encephalopathy, respiratory failure and pneumonia. Completed course of Zosyn and Azithromycin. * Patient pending ENT evaluation for trach tube placement * primary care team to continue monitoring and treating 3. Anemia: Labs today show WBC 7, HGB 9, HCT 30, MCV 94, platelets 336. B12 and folate normal. Iron panel done on 02/01/2025 showed total iron 26, TIBC 124 and iron saturation 21%. anemia likely multifactorial given multiple chronic comorbidities. No signs of active GI bleeding. Fecal occult blood negative. Prior colonoscopy an EGD history unknown. * Primary care team to continue monitoring H&H transfuse as needed to keep HGB > 7 Thank you very much for allowing me to share in the care of this very nice patient. This report may have been done utilizing a voice recognition system. Attempts have been made to correct errors. However, there may be uncorrected grammatical, spelling, and recognition errors present. GI Consult Note Consult date/time: 02/13/25 09:40 Reason for consult: PEG tube placement HPI: Maria Del Carmen Goldman is a 69 year old female with PMSH of cerebral palsy, nonverbal, schizophrenia, HLD, and osteoporosis. Patient was brought to the emergency room on 01/31/2025 from [facility] after being hypoxic and unresponsive. Patient was admitted for sepsis, metabolic encephalopathy and pneumonia. GI has been consulted for PEG tube placement. Patient is sedated and intubated so unable to provide any subjective information. GI consulted for PEG placement due to need for ongoing vent support. Patient is also pending ENT evaluation for trach placement. ENDOSCOPY HISTORY: EGD and colonoscopy Hx unknown LABS AND STOOL STUDIES: Labs 02/13/2025: Sodium 142, potassium 3.7, BUN 25, creatinine 0.47, GFR > 60 WBC 7, HGB 9, HCT 30, MCV 94, platelets 336 INR on 01/31 at 1.1 Total bilirubin 0.3, AST 46, ALT 53, alkaline phosphatase 107, albumin 3.8 Calcium 9.2, magnesium 2.0, CRP 8.3, procalcitonin pending B12 folate normal Labs performed 02/01/2025 showed total iron 26, TIBC 124, iron saturation 21% IMAGING: Chest Xray 02/13/2025: Findings: Endotracheal tube, NG tube, and left-sided PICC line are in place. There is elevation of the right hemidiaphragm. Lungs are clear. Cardiomediastinal silhouette is stable. Bones and soft tissues are unremarkable. Impression: Support tubes, as above. Clear lungs with elevated right hemidiaphragm. CTA chest/abd/pelvis 01/31/2025: IMPRESSION: Right middle and lower lobe pneumonia with dense consolidation. Left basilar atelectasis. No pulmonary embolus. No aortic dissection. Oral contrast opacifies the entirety of the colon. Supportive lines in good position. No acute pathology within the remainder of the examination, as detailed above. Review of Systems 2 Review of Systems: ROS unobtainable: Yes unobtainable due to endotracheal tube and unobtainable due to medical condition PMFSH Past Medical History Medical History Vitamin D deficiency Osteoporosis Mild intellectual disabilities Gastritis HTN (hypertension) Dyslipidemia Schizophrenia Nonverbal Secondary to CP Cerebral palsy Family History Family History Other Unknown family medical history Social History Social History Smoking status: Unknown if ever smoked Alcohol intake: unknown Substance use: unknown Spiritual care concerns: No Meds Home Medications and Allergies Home Medications ?Medication ?Instructions ?Recorded ?Confirmed ?Type acetaminophen 500 mg tablet 1,000 mg PO Q6H PRN fever or pain 01/31/25 01/31/25 History bisacodyl 5 mg tablet,delayed 10 mg PO Q8H PRN constipation 01/31/25 01/31/25 History release cholecalciferol (vitamin D3) 50 50 mcg PO DAILY 01/31/25 01/31/25 History mcg (2,000 unit) capsule clomipramine 25 mg capsule 25 mg PO DAILY 01/31/25 01/31/25 History clomipramine 50 mg capsule 50 mg PO DAILY 01/31/25 01/31/25 History docusate sodium 100 mg capsule 100 mg PO Q12H 01/31/25 01/31/25 History fluticasone propionate 50 2 spray intranasal HS 01/31/25 02/01/25 History mcg/actuation nasal spray,suspension vit B complex 100 combo no.2 100 1 tablet PO DAILY 01/31/25 01/31/25 History mg tablet,extended release (B-100 Complex ER) ascorbic acid (vitamin C) 500 mg 500 mg PO Q12H 02/01/25 02/01/25 History tablet (Vitamin C) guaifenesin 100 mg/5 mL oral 200 mg PO Q4H PRN cough 02/01/25 02/01/25 History liquid (Chest Congestion Relief) loperamide 2 mg capsule 2 mg PO Q4H PRN loose stool 02/01/25 02/01/25 History magnesium hydroxide 400 mg/5 mL 30 ml PO QID PRN constipation 02/01/25 02/01/25 History oral suspension (Milk of Magnesia) magnesium oxide 250 mg PO DAILY 02/01/25 02/01/25 History metoprolol tartrate 25 mg tablet 25 mg PO BID 02/01/25 02/01/25 History omeprazole 20 mg capsule,delayed 20 mg PO DAILY 02/01/25 02/01/25 History release oxybutynin chloride 5 mg 5 mg PO HS 02/01/25 02/01/25 History tablet,extended release 24 hr potassium chloride 10 mEq 20 meq PO DAILY 02/01/25 02/01/25 History tablet,extended release risperidone 0.5 mg tablet 0.5 mg PO HS 02/01/25 02/01/25 History risperidone 1 mg tablet 1 mg PO Q12H 02/01/25 02/01/25 History Allergies Allergy/AdvReac Type Severity Reaction Status Date / Time cefepime Allergy Unknown Unknown Verified 01/31/25 21:24 Vital Signs Vital Signs - 24 hr 02/12/25 10:00 02/12/25 10:00 02/12/25 10:00 Temperature 98.2 F Pulse Rate 104 H 104 H 104 H Respiratory Rate 16 19 Blood Pressure 106/70 Pulse Oximetry 99 Oxygen Delivery Fraction of Inspired Oxygen 02/12/25 11:37 02/12/25 12:00 02/12/25 12:00 Temperature 99.3 F Pulse Rate 105 H 109 H 109 H Respiratory Rate 17 17 Blood Pressure 122/71 Pulse Oximetry 97 98 Oxygen Delivery Mechanical Ventilation Fraction of Inspired Oxygen 30 02/12/25 12:00 02/12/25 12:00 02/12/25 12:00 Temperature Pulse Rate 109 H Respiratory Rate Blood Pressure Pulse Oximetry Oxygen Delivery Mechanical Ventilation Fraction of Inspired Oxygen 30 02/12/25 14:00 02/12/25 14:00 02/12/25 14:00 Temperature 99.9 F H Pulse Rate 114 H 114 H 117 H Respiratory Rate 16 17 Blood Pressure 125/79 Pulse Oximetry 95 Oxygen Delivery Fraction of Inspired Oxygen 02/12/25 14:51 02/12/25 14:51 02/12/25 15:22 Temperature Pulse Rate 115 H 115 H 117 H Respiratory Rate 17 16 Blood Pressure Pulse Oximetry 97 Oxygen Delivery Mechanical Ventilation Fraction of Inspired Oxygen 30 02/12/25 16:00 02/12/25 16:00 02/12/25 16:00 Temperature 99.8 F H Pulse Rate 121 H 122 H 114 H Respiratory Rate 20 16 Blood Pressure 131/84 Pulse Oximetry 94 Oxygen Delivery Fraction of Inspired Oxygen 02/12/25 16:00 02/12/25 16:00 02/12/25 16:43 Temperature 100.0 F H Pulse Rate Respiratory Rate Blood Pressure Pulse Oximetry Oxygen Delivery Mechanical Ventilation Fraction of Inspired Oxygen 30 02/12/25 16:44 02/12/25 17:04 02/12/25 17:36 Temperature Pulse Rate 118 H 118 H 117 H Respiratory Rate 22 H 21 H Blood Pressure Pulse Oximetry 99 Oxygen Delivery Mechanical Ventilation Fraction of Inspired Oxygen 30 02/12/25 17:36 02/12/25 18:00 02/12/25 18:00 Temperature 99.8 F H Pulse Rate 117 H 124 H 120 H Respiratory Rate 21 H 19 Blood Pressure 139/80 Pulse Oximetry 98 Oxygen Delivery Fraction of Inspired Oxygen 02/12/25 18:00 02/12/25 19:25 02/12/25 19:40 Temperature Pulse Rate 120 H 130 H 130 H Respiratory Rate 19 22 H 22 H Blood Pressure Pulse Oximetry Oxygen Delivery Fraction of Inspired Oxygen 02/12/25 20:00 02/12/25 20:00 02/12/25 20:00 Temperature 99.7 F H Pulse Rate 121 H 126 H Respiratory Rate 20 21 H Blood Pressure 146/95 H Pulse Oximetry 97 Oxygen Delivery Fraction of Inspired Oxygen 30 02/12/25 20:00 02/12/25 20:45 02/12/25 20:49 Temperature Pulse Rate 119 H 129 H 113 H Respiratory Rate 18 Blood Pressure Pulse Oximetry 95 96 Oxygen Delivery Mechanical Ventilation Mechanical Ventilation Fraction of Inspired Oxygen 30 30 02/12/25 20:49 02/12/25 21:12 02/12/25 21:55 Temperature Pulse Rate 113 H 113 H 127 H Respiratory Rate 17 17 Blood Pressure Pulse Oximetry Oxygen Delivery Fraction of Inspired Oxygen 02/12/25 22:00 02/12/25 22:00 02/12/25 22:00 Temperature 99.8 F H Pulse Rate 102 H 129 H 106 H Respiratory Rate 18 18 Blood Pressure 170/103 H Pulse Oximetry 95 Oxygen Delivery Fraction of Inspired Oxygen 02/12/25 23:00 02/13/25 00:00 02/13/25 00:00 Temperature 99.7 F H Pulse Rate 102 H 109 H 110 H Respiratory Rate 17 18 Blood Pressure 143/92 H Pulse Oximetry 96 95 Oxygen Delivery Mechanical Ventilation Fraction of Inspired Oxygen 30 02/13/25 00:00 02/13/25 00:00 02/13/25 00:30 Temperature Pulse Rate 110 H 110 H Respiratory Rate 18 Blood Pressure Pulse Oximetry 95 Oxygen Delivery Mechanical Ventilation Fraction of Inspired Oxygen 30 30 02/13/25 01:05 02/13/25 01:05 02/13/25 02:00 Temperature Pulse Rate 116 H 116 H 120 H Respiratory Rate 20 20 Blood Pressure Pulse Oximetry Oxygen Delivery Fraction of Inspired Oxygen 02/13/25 02:00 02/13/25 02:00 02/13/25 02:05 Temperature 99.6 F Pulse Rate 120 H 120 H 122 H Respiratory Rate 18 20 17 Blood Pressure 140/90 Pulse Oximetry 94 Oxygen Delivery Fraction of Inspired Oxygen 02/13/25 02:09 02/13/25 02:25 02/13/25 04:00 Temperature 99.3 F Pulse Rate 121 H 122 H 124 H Respiratory Rate 17 19 Blood Pressure 147/90 H Pulse Oximetry 95 96 Oxygen Delivery Mechanical Ventilation Fraction of Inspired Oxygen 30 02/13/25 04:00 02/13/25 04:00 02/13/25 04:00 Temperature Pulse Rate 118 H 123 H Respiratory Rate 20 Blood Pressure Pulse Oximetry Oxygen Delivery Fraction of Inspired Oxygen 30 02/13/25 04:15 02/13/25 05:13 02/13/25 06:00 Temperature Pulse Rate 124 H 122 H 115 H Respiratory Rate 19 20 Blood Pressure Pulse Oximetry 96 94 Oxygen Delivery Mechanical Ventilation Mechanical Ventilation Fraction of Inspired Oxygen 30 30 02/13/25 06:00 02/13/25 06:00 02/13/25 07:57 Temperature 99.7 F H Pulse Rate 115 H 114 H 123 H Respiratory Rate 18 17 Blood Pressure 108/71 Pulse Oximetry 98 Oxygen Delivery Fraction of Inspired Oxygen 02/13/25 07:58 02/13/25 08:00 02/13/25 09:18 Temperature Pulse Rate 122 H 123 H 126 H Respiratory Rate 15 15 Blood Pressure Pulse Oximetry 98 Oxygen Delivery Mechanical Ventilation Fraction of Inspired Oxygen 30 02/13/25 09:18 Temperature Pulse Rate 126 H Respiratory Rate 15 Blood Pressure Pulse Oximetry Oxygen Delivery Fraction of Inspired Oxygen Exam 2 Const: General: comfortable and no acute distress Other: sedated and intubated HENMT: Head: normal to inspection, normocephalic and atraumatic Mouth: Yes moist mucous membranes Other: NG tube and vent tube in place Eyes: General: appearance normal, both eyes and all related structures C onjunctivae: conjunctivae normal Pupils: Equal, round and reactive pupils present Neck: Neck: normal visual inspection Chest: Chest palpation & inspection: normal inspection of the chest Resp: Auscultation: clear to auscultation bilaterally and diminished lung sounds Other: intubated Cardio: Jugular venous distension: no JVD Rate: regular rate Rhythm: r egular rhythm Heart sounds: S1 normal heart sound present and S2 normal heart sound present GI: Inspection: normal to inspection GI Palp: Yes Soft to palpation, No Firmness to palpation present (GI) and Yes No hepatosplenomegaly present R ectal Exam: deferred Urinary Catheter: Urinary Catheter: patent and draining Skin: General skin exam: normal color and no rashes or lesions noted Neuro: Cranial nerves: Yes Equal, round and reactive pupils present Other: sedated Extrem: General: normal to inspection and no edema Other: soft wrist restraints in place Psych: Appearance: grossly normal Affect: normal affect Results Labs 02/13/25 05:04 02/13/25 05:04 Labs: Short CBC 02/13/25 Range/Units 05:04 WBC 7.2 (4.5-10.0) K/mm3 Hgb 9.4 L (12.0-15.0) g/dL Hct 29.9 L (37.0-47.0) % Plt Count 336 (150-375) k/mm3 BMP 02/13/25 05:04 Sodium 142 Potassium 3.7 Chloride 101 Carbon Dioxide 32 H BUN 25 H Creatinine 0.47 L Glucose 109 Calcium 9.2 Liver Function 02/13/25 Range/Units 05:04 Total Bilirubin 0.3 (0.2-1.3) mg/dL AST 46 H (14-36) U/L ALT 53 H (6-35) U/L Alkaline Phosphatase 107 (38-126) U/L Albumin 3.8 (3.5-5.1) g/dL
[2025-02-13 10:20] LABS: Procalcitonin 0.2 ng/mL
[2025-02-13] MEDS: oxyCODONE (*CRX) 5 MG/5 ML ORAL SOLN IR FEED TUBE ×3 (11:11→22:06)
[2025-02-13 11:53] LABS: Glucose Point of Care 101 mg/dl (65-105)
[2025-02-13 11:58] LABS: INR 1.1; Prothrombin Time 14.5 Seconds (11.1-14.7)
[2025-02-13 12:07] LABS: Add Urine Microscopic? YES; Appearance Urine Cloudy (Clear); Bacteria Urine None Seen /hpf; Bilirubin Urine Negative (Negative); Blood Urine 2+ (Negative); Color Urine Yellow (Yellow); Glucose Urine UA Negative (Negative); Ketones Urine Negative (Negative); Leukocyte Esterase Ur Negative LEU/UL (Negative); Need Manual Microscopic Reviewed; Nitrate Urine Negative (Negative); Protein Urine Trace mg/dL (Negative); RBC Urine 51-100 /hpf (0-2); Specific Grav Ur 1.015 (1.001-1.035); Squamous Epithelial Cell Urine Occasional /hpf (Few); pH Urine 7.5 (5.0-9.0)
--- NOTE | 2025-02-13 12:27 | PCNFU ---
Nutrition Follow-Up Complete: Inadequate Oral Intake as related to mechanical ventilation as evidenced by NPO. Goal: Meet estimated nutritional needs. Patient will continue current goal. Pt current nutrition is Vital AF 1.2 at 50 ml/hr with Prosource once daily. Last recorded weight is 36.9 kg, down from 38.8 kg on admit. Bowel Motility: +BM reported 02/10 Labs Reviewed: Cr 0.47, BUN 25, HCt 29.9, Hgb 9.4 Meds Noted: Propofol 50 snfu=271 kcal, Lovenox,Lopressor. Skin: WNL Additional Notes: Patient remains on a mechanical vent. Spoke with nursing today, plans for PEG/Trach on 02/16. Tube feedings are being tolerated with flush of 100 ml q 4 hours. Total Nutrition including Propofol infusion: 1694 kcal/103 gm protein/892 ml water. Agree with diet orders at this time. Will monitor weight, labs, skin, diet orders, meds every Wednesday and Wednesday.
[2025-02-13 17:57] LABS: Glucose Point of Care 82 mg/dl (65-105)
[2025-02-13] MEDS: risperiDONE 0.5 MG TABLET FEED TUBE (22:05)
[2025-02-13 23:52] LABS: Glucose Point of Care 103 mg/dl (65-105)
[2025-02-14] VITALS (36 sets, daily range): BP systolic 86–152; BP diastolic 60–93; PULSE 91–122; RESP 12–21; TEMP 36.9–37.9; O2SAT 91–100
[2025-02-14] MEDS: IPRATROPIUM BR 0.02% INH SOLN 0.5 MG/2.5 ML VIAL INHALATION ×4 (02:31→20:14)
[2025-02-14] MEDS: LEVALBUTEROL NEB 1.25 MG/3 ML 0.63 MG INHALATION ×4 (02:31→20:14)
[2025-02-14] MEDS: PROPOFOL IV EMULSION 100 ML 11.13 MG IV CONT ×3 (02:56→17:39)
[2025-02-14] MEDS: oxyCODONE (*CRX) 5 MG/5 ML ORAL SOLN IR FEED TUBE ×3 (02:57→20:53)
[2025-02-14 05:36] LABS: Glucose Point of Care 111 mg/dl (65-105)
[2025-02-14] MEDS: CENTRAL LINE FLUSH 10 ML IV PUSH ×6 (05:56→20:54)
[2025-02-14] MEDS: PANTOPRAZOLE SODIUM IV 40 MG VIAL IV PUSH ×2 (08:26→20:53)
[2025-02-14] MEDS: risperiDONE 1 MG TABLET FEED TUBE ×2 (08:27→20:53)
[2025-02-14] MEDS: METOPROLOL TARTRATE 25 MG TABLET PO ×2 (08:27→20:53)
[2025-02-14] MEDS: MINERAL OIL/WHITE PETROLATUM OINTMENT 1 APPLIC EACH EYE ×2 (08:27→20:54)
[2025-02-14 08:58] LABS: Hematocrit 29.7 % (37.0-47.0); Hemoglobin 9.5 g/dL (12.0-15.0); Mean Corpuscular Volume 93.7 fl (80-100); Mean Platelet Volume 10.2 fl (7.4-10.4); Platelet Count Result 350 k/mm3 (150-375); Red Blood Count 3.17 M/mm3 (4.2-5.4); Red Cell Distribution Width 16.5 % (11.5-14.5); White Blood Count 6.1 K/mm3 (4.5-10.0)
[2025-02-14 09:10] LABS: Alanine Aminotransferase 44 U/L (6-35); Albumin Level 3.7 g/dL (3.5-5.1); Alkaline Phosphatase 94 U/L (38-126); Anion Gap 8 mmol/L (4-12); Aspartate Amino Transferase 39 U/L (14-36); Bilirubin,Total 0.3 mg/dL (0.2-1.3); Blood Urea Nitrogen 21 mg/dL (7-17); Calcium 9.4 mg/dL (8.4-10.2); Carbon Dioxide 33 mmol/L (22-30); Chloride 101 mmol/L (98-107); Estimated CRCL calculation 51 ml/min; Estimated Glomerular Filt Rate > 60; Glucose 104 mg/dL (65-110); Potassium 3.9 mmol/L (3.4-5.0); Sodium 142 mmol/L (137-145)
--- NOTE | 2025-02-14 09:58 | P.PNINT_ITS ---
Progress Note: A&P Assessment and Plan (1) Acute hypoxic respiratory failure: Code(s): J96.01 - Acute respiratory failure with hypoxia Status: Acute Assessment and Plan: 01/31/2025: Patient presented from [facility] with hypoxia, periods of apnea, and unresponsiveness. She was brought to the ED being bagged, she did not have a gag and was unresponsive in the ED so was intubated upon arrival to the ED. central line was also inserted as she was hypotensive CT scan showed right middle and right lower lobe consolidation. Since then patient has also received decent amount of IV fluids 02/05-accidentally got extubated during turning by the nursing staff. She was intubated 02/06 failed weaning trial. patient kept on going into apnea ventilation. Precedex rate was decreased and patient is now on ASV. 02/07 weaning trial was attempted again. Patient had high RSBI on PSV 03/19. Patient was erratically breathing agitated and had drop in sats. Breathing trial was aborted 02/08 failed weaning trial due to high RSBI 02/09 I attempted a SBT weaning trial this morning. On 03/19 patient respiratory rate was in 40s with tidal volume and 100s. I had to increase the pressure support to 12 to get adequate RSBI even then patient's breathing was at. patient is not a candidate for extubation at this point. She will not be able to use BiPAP considering cerebral palsy and inability to communicate. I will try to continue weaning but I anticipate that if patient does not get extubated then she may need trach for continued ventilatory support 02/10 patient failed weaning trial again due to respiratory rate in high 40s and tidal volumes in 100s.. She requires pressure support of 12/5 for adequate ventilatory numbers. She is not a candidate for BiPAP. I anticipate patient will likely need tracheostomy. I called his healthcare power document review attorney who is on vacation at this time I will speak him on Wednesday. 02/11 Lasix again today and plan for weaning trial again today 02/12 self-extubated. Patient was given opportunity to see if she can tolerate noninvasive oxygenation support. But patient was tachypneic with use of accessory muscle and had to be reintubated. Patient also had airway edema and was given dexamethasone At this point patient has failed multiple days of trial and is quite debilitated and weak and unable to come off the ventilator. I spoke to patient's healthcare power document review attorney Mateo Warren who regarding option of proceeding need tracheostomy and PEG tube placement for ongoing ventilator support. He is agreeable to proceed with both and consented. Consent was also obtained for a PICC line ENT consulted for tracheostomy and patient is scheduled for tracheostomy on Wednesday -currently on CMV mode of ventilation, peep of 5 and 30 % FiO2 -ABGs and chest x-ray reviewed, ventilator adjusted by decreasing the rate -continue bronchodilators and Mucomyst nebulizer -completed course of Zosyn and azithromycin (2) Sepsis: Qualifiers: Sepsis type: sepsis due to unspecified organism Sepsis acute organ dysfunction status: unspecified Qualified Code(s): A41.9 - Sepsis, unspecified organism Code(s): A41.9 - Sepsis, unspecified organism Status: Acute Assessment and Plan: Patient presented with altered mental status, hypoxia, apnea, pneumonia. Patient initially required vasopressors but now off 4/1 low-grade fever overnight with increase tachycardia. Tachycardia could be secondary discontinuation of Precedex. WBC normal Chest x-ray shows clear lungs Pending sputum culture, full each, urinalysis reviewed and negative for nitrates or leukoesterase, pending blood cultures, low procalcitonin level Hold antibiotics for now (3) AMS (altered mental status): Qualifiers: Altered mental status type: unspecified Qualified Code(s): R41.82 - Alt ered mental status, unspecified Code(s): R41.82 - Altered mental status, unspecified Status: Acute Assessment and Plan: Encephalopathy could be related to hypoxia, hypercapnia, pneumonia/infection/hypotension, could be related to medication -head CT negative at the time of presentation -currently intubated -continue propofol I will discontinue Precedex -upon review of chart patient appears to be nonverbal at baseline and communicates her needs with gestures. She walks around in the hallways and is able to eat modified diet (4) Pneumonia: Qualifiers: Pneumonia type: due to unspecified organism Laterality: right Lung location: unspecified part of lung Qualified Code(s): J18.9 - Pneumonia, unspecified organism Code(s): J18.9 - Pneumonia, unspecified organism Status: Acute Assessment and Plan: Chest x-ray and CTA chest show right lower lobe consolidation -according the [facility] records: Repeat CT chest showed interv al development of new airspace opacities raising concern for aspiration pneumonia. She was transition to Zosyn from cefepime. MBS performed on 01/26 at [facility] which showed no evidence of aspiration despite coughing especially with swallowing. - completed course of Zosyn, azithromycin (01/31) -MRSA screen is negative, vancomycin discontinued (02/01) (5) Cerebral palsy: Qualifiers: Cerebral palsy type: other type Qualified Code(s): G80.8 - Other cerebral palsy Code(s): G80.9 - Cerebral palsy, unspecified Status: Acute Assessment and Plan: Patient with cerebral palsy, mild intellectual disability, schizophrenia, nonverbal at baseline according the chart -patient on risperidone, will restart prior to extubation as she is currently sedated and intubated (6) Anemia: Qualifiers: Anemia type: unspecified type Qualified Code(s): D64.9 - Anemia, unspecified Code(s): D64.9 - Anemia, unspecified Status: Acute Assessment and Plan: Patient admitted with a hemoglobin of 10.3 on 01/31 -02/01: Hemoglobin dropped to 7.7, a repeat CBC was done which showed a hemoglobin of 7.3 -will check stools for occult blood, -folic acid and vitamin B12 level within normal limits -low iron levels, low TIBC, will give Venofer -LDH is normal, haptoglobin is pending -Protonix IV q.12 hours -continue to monitor (7) Electrolyte imbalance: Code(s): E87.8 - Other disorders of electrolyte and fluid balance, not elsewhere classified Status: Acute Assessment and Plan: Continue free water flush to 100 mL Replace low potassium (8) Sinus tachycardia: Code(s): R00.0 - Tachycardia, unspecified Status: Acute Assessment and Plan: 02/04: Patient developed SVT/sinus tachycardia overnight with rates in the 180- 200s. Was given IV metoprolol x1 with improvement which brought her rate start to 130s. -could be multifactorial, related to sepsis, anemia, coronary artery disease -TSH normal -will continue metoprolol -currently sinus tachycardia monitor - mild elevation in troponin level with the levels have trended down -cardiology consult 02/02/2025: Echocardiogram Summary 1. Complete two-dimensional, color flow and Doppler transthoracic echocardiogram is performed. 2. Left ventricular chamber dimension is normal. 3. Left ventricular systolic function is normal, estimated at 60-65%. 4. The left ventricular diastolic function is grade I diastolic dysfunction. 5. E/e' 7 is not elevated. 6. There is mild aortic valve sclerosis. 7. There is trace tricuspid valve regurgitation. 8. Mild pulmonary hypertension, estimated pulmonary arterial systolic pressure is 41 mmHg. (9) Constipation: Qualifiers: Constipation type: unspecified constipation type Qualified Code(s): K59.00 - Constipation, unspecified Code(s): K59.00 - Constipation, unspecified Status: Acute Assessment and Plan: 02/04: KUB showed moderate fecal retention -improved with laxatives as patient is now having bowel movements. 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 I spoke to him this morning and we discussed patient's failure to wean. I discussed option of tracheostomy PEG tube and PICC line he is agreeable to proceed with all. I explained him that we may not have ENT coverage and we may have to transfer the patient very tracheostomy and he was agreeable to transfer to either [facility] or [facility] hospitals for the procedure if needed Patient is scheduled for PEG tube today and tracheostomy on Wednesday. Critical Care Time Spent: 30 minutes Due to a high probability of clinically significant, life threatening deterioration, the patient required my highest level of preparedness to intervene emergently and I personally spent this critical care time directly and personally managing the patient. This critical care time included obtaining a history; examining the patient; pulse oximetry; ordering and review of studies; arranging urgent treatment with development of a management plan; evaluation of patient's response to treatment; frequent reassessment; and discussions with other providers. It was exclusive of separately billable procedures and treating other patients and teaching time. Please see Assessment and Plan section and the rest of the note for further information on patient assessment and treatment This dictation may have been done utilizing a voice recognition system. Attempts have been made to correct errors. However, there may be uncorrected grammatical, spelling, and recognitions errors present. Subjective Date/time seen: 02/14/25 Overnight events reviewed. Low-grade fever Continues to be on mechanical ventilation 30% FiO2 Acceptable urine output. Tolerating tube feeds Continues to be sedated with propofol Vitals acceptable Review of Systems Review of Systems: ROS unobtainable: Yes unobtainable due to endotracheal tube, unobtainable due to medical condition and unobtainable due to mental status Exam Narrative: General: Petite female/malnourished, in no acute distress HEENT:? Pupils are pinpoint, sluggish, ETT in place Neck:? Supple Respiratory:? Coarse breath sounds bilaterally, rales on right base, no wheezing, adequate air entry otherwise Cardiac:? S1-S2 normal, regular rate and rhythm Abdomen:? Soft, nontender, nondistended, hypoactive bowel sounds Extremities:? Trace edema, bilateral pedal pulses are palpable Neuro:? Intubated, sedated, Skin:? No skin lesions noted Psych:? Unable to assess at this time Objective Data Vital Signs Vital Signs: Vital Signs - 24 hr 02/13/25 10:00 02/13/25 10:00 02/13/25 10:00 Temperature 37.2 C Pulse Rate 103 H 111 H 108 H Respiratory Rate 14 16 Blood Pressure 112/73 Pulse Oximetry 98 Oxygen Delivery Fraction of Inspired Oxygen 02/13/25 11:36 02/13/25 11:58 02/13/25 12:00 Temperature Pulse Rate 99 101 H Respiratory Rate 16 Blood Pressure Pulse Oximetry 99 Oxygen Delivery Mechanical Ventilation Fraction of Inspired Oxygen 30 30 02/13/25 12:00 02/13/25 12:00 02/13/25 14:00 Temperature 37.7 C H Pulse Rate 101 H 101 H 111 H Respiratory Rate 14 Blood Pressure 112/80 Pulse Oximetry 99 Oxygen Delivery Fraction of Inspired Oxygen 02/13/25 14:00 02/13/25 14:34 02/13/25 14:35 Temperature 37.9 C H Pulse Rate 111 H 100 110 H Respiratory Rate 15 15 Blood Pressure 100/71 Pulse Oximetry 100 99 Oxygen Delivery Mechanical Ventilation Fraction of Inspired Oxygen 30 02/13/25 16:00 02/13/25 16:00 02/13/25 16:00 Temperature 37.8 C H Pulse Rate 113 H 113 H Respiratory Rate 17 17 Blood Pressure 117/76 Pulse Oximetry 100 100 Oxygen Delivery Mechanical Ventilation Fraction of Inspired Oxygen 30 30 02/13/25 16:00 02/13/25 16:40 02/13/25 16:40 Temperature Pulse Rate 112 H 104 H 104 H Respiratory Rate 14 14 Blood Pressure Pulse Oximetry Oxygen Delivery Fraction of Inspired Oxygen 02/13/25 18:00 02/13/25 18:00 02/13/25 18:00 Temperature 37.5 C Pulse Rate 101 H 101 H 101 H Respiratory Rate 12 14 Blood Pressure 104/68 Pulse Oximetry 100 Oxygen Delivery Fraction of Inspired Oxygen 02/13/25 18:03 02/13/25 19:54 02/13/25 19:54 Temperature Pulse Rate 100 108 H 108 H Respiratory Rate 14 Blood Pressure Pulse Oximetry 99 99 Oxygen Delivery Mechanical Ventilation Mechanical Ventilation Fraction of Inspired Oxygen 30 30 02/13/25 20:00 02/13/25 20:00 02/13/25 20:00 Temperature Pulse Rate 117 H 112 H Respiratory Rate 14 Blood Pressure Pulse Oximetry Oxygen Delivery Fraction of Inspired Oxygen 30 02/13/25 20:00 02/13/25 20:10 02/13/25 20:50 Temperature 37.6 C H Pulse Rate 112 H 114 H 114 H Respiratory Rate 16 17 17 Blood Pressure 115/77 Pulse Oximetry 100 99 Oxygen Delivery Mechanical Ventilation Fraction of Inspired Oxygen 30 02/13/25 22:00 02/13/25 22:00 02/13/25 22:00 Temperature 37.7 C H Pulse Rate 119 H 101 H 101 H Respiratory Rate 18 17 Blood Pressure 123/76 Pulse Oximetry 97 Oxygen Delivery Fraction of Inspired Oxygen 02/13/25 22:06 02/13/25 22:50 02/14/25 00:00 Temperature Pulse Rate 119 H 92 92 Respiratory Rate 17 Blood Pressure Pulse Oximetry 96 96 Oxygen Delivery Mechanical Ventilation Mechanical Ventilation Fraction of Inspired Oxygen 30 30 02/14/25 00:00 02/14/25 00:00 02/14/25 00:00 Temperature 37.5 C Pulse Rate 99 100 Respiratory Rate 18 14 Blood Pressure 103/70 Pulse Oximetry 100 Oxygen Delivery Fraction of Inspired Oxygen 30 02/14/25 00:00 02/14/25 02:00 02/14/25 02:00 Temperature 37.8 C H Pulse Rate 99 110 H 110 H Respiratory Rate 14 Blood Pressure 124/77 Pulse Oximetry 100 Oxygen Delivery Fraction of Inspired Oxygen 02/14/25 02:00 02/14/25 02:31 02/14/25 02:31 Temperature Pulse Rate 110 H 110 H 110 H Respiratory Rate 14 14 Blood Pressure Pulse Oximetry 97 Oxygen Delivery Mechanical Ventilation Fraction of Inspired Oxygen 30 02/14/25 02:56 02/14/25 02:56 02/14/25 02:56 Temperature Pulse Rate 108 H 108 H 107 H Respiratory Rate 15 15 14 Blood Pressure Pulse Oximetry Oxygen Delivery Fraction of Inspired Oxygen 02/14/25 04:00 02/14/25 04:00 02/14/25 04:00 Temperature 37.7 C H Pulse Rate 118 H 115 H Respiratory Rate 14 Blood Pressure 133/75 Pulse Oximetry 100 Oxygen Delivery Fraction of Inspired Oxygen 30 02/14/25 04:00 02/14/25 04:20 02/14/25 04:44 Temperature Pulse Rate 115 H 115 H 118 H Respiratory Rate 14 14 Blood Pressure Pulse Oximetry 100 97 Oxygen Delivery Mechanical Ventilation Mechanical Ventilation Fraction of Inspired Oxygen 30 30 02/14/25 06:00 02/14/25 06:00 02/14/25 06:00 Temperature 37.7 C H Pulse Rate 122 H 121 H 122 H Respiratory Rate 14 14 Blood Pressure 134/92 H Pulse Oximetry 100 Oxygen Delivery Fraction of Inspired Oxygen 02/14/25 07:43 02/14/25 07:50 02/14/25 08:00 Temperature 37.1 C Pulse Rate 103 H 104 H 114 H Respiratory Rate 14 14 Blood Pressure 147/93 H Pulse Oximetry 99 94 Oxygen Delivery Mechanical Ventilation Fraction of Inspired Oxygen 30 02/14/25 08:00 02/14/25 08:00 02/14/25 08:00 Temperature Pulse Rate 114 H Respiratory Rate Blood Pressure Pulse Oximetry 100 Oxygen Delivery Mechanical Ventilation Fraction of Inspired Oxygen 30 30 02/14/25 08:00 02/14/25 08:03 02/14/25 08:27 Temperature Pulse Rate 114 H 119 H 115 H Respiratory Rate 14 16 Blood Pressure Pulse Oximetry Oxygen Delivery Fraction of Inspired Oxygen Intake/Output Intake/Output: Intake & Output 02/11/25 02/12/25 02/13/25 02/14/25 23:59 23:59 23:59 23:59 Intake Total 1673.9 1755.9 2144.4 637.9 Output Total 1460 1000 1175 550 Balance 213.9 755.9 969.4 87.9 Meds/Results Medications: Active Medications Generic Name Dose Route Start Last Admin Trade Name Freq PRN Reason Stop Dose Admin Acetaminophen 650 mg 02/03/25 22:36 02/12/25 16:43 Acetaminophen Elixir 325 Mg/10.15 Ml Udc PO 650 mg Q6H PRN Administration Mild Pain (1-3) or Fever Dextrose 12.5 gm 02/01/25 07:23 02/11/25 23:40 Dextrose 50% 25 Gm/50 Ml Syringe IV PUSH 12.5 gm PRN PRN Administration Hypoglycemia Protocol Diazepam 5 mg 02/13/25 09:22 Diazepam (*Crx) 5 Mg Tablet FEED TUBE Q8H PRN Anxiety Enoxaparin Sodium 40 mg 02/07/25 09:00 02/13/25 09:27 Enoxaparin 40 Mg/0.4 Ml Syringe SUB-Q 40 mg DAILY HAIM Administration Fentanyl Citrate 25 mcg 02/13/25 09:23 Fentanyl Citrate Inj (*Crx) 100 Mcg/2 Ml Vial IV PUSH Q2H PRN Pain or discomfort on vent Glucagon 1 mg 02/01/25 07:23 Glucagon For Inj 1 Mg Vial IM PRN PRN Hypoglycemia Protocol Glucose 15 gm 02/01/25 07:23 Glucose Oral Gel 15 Gm Of Glucse In 37.5 Gm Tube PO PRN PRN Hypoglycemia Protocol Dextrose 1,000 mls @ 100 mls/hr 02/01/25 07:23 Dextrose 5% 1,000 Ml IVPB PRN PRN Hypoglycemia Protocol Propofol 100 mls @ 11.13 mls/hr 02/10/25 15:40 02/14/25 08:00 Diprivan IV CONT 50 mcg/kg/min .Q9H HAIM 11.13 mls/hr Titration Protocol 50 MCG/KG/MIN Insulin Aspart 3 - 6 units 02/01/25 12:00 02/14/25 05:55 Insulin Aspart (*Bkc) 100 Units/Ml SUB-Q Not Given Q6HR HAIM Protocol Ipratropium [place] 0.5 mg 02/04/25 14:00 02/14/25 07:43 Ipratropium Br 0.02% Inh Soln 0.5 Mg/2.5 Ml Vial INHALATION 0.5 mg Q6HRT HAIM Administration Levalbuterol HCl 0.63 mg 02/04/25 14:00 02/14/25 07:42 Levalbuterol Neb 1.25 Mg/3 Ml INHALATION 0.63 mg Q6HRT HAIM Administration Metoprolol Tartrate 5 mg 02/04/25 04:26 02/06/25 05:47 Metoprolol Tartrate Inj 5 Mg/5 Ml Vial IV PUSH 5 mg Q6H PRN Administration HR > 130 Metoprolol Tartrate 25 mg 02/12/25 09:00 02/14/25 08:27 Metoprolol Tartrate 25 Mg Tablet PO 25 mg Q12HR HAIM Administration Multi-Ingred Cream/Lotion/Oil/Oint 1 applic 02/01/25 21:00 02/14/25 08:27 Mineral Oil/White Petrolatum Ointment EACH EYE 1 applic Q12HR HAIM Administration Ondansetron HCl 4 mg 01/31/25 16:00 Ondansetron Inj 4 Mg/2 Ml Vial IV PUSH Q4H PRN Nausea Oxycodone HCl 5 mg 02/13/25 09:00 02/14/25 08:26 Oxycodone (*Crx) 5 Mg/5 Ml Oral Soln Ir FEED TUBE 5 mg Q6H HAIM Administration Pantoprazole Sodium 40 mg 02/01/25 09:00 02/14/25 08:26 Pantoprazole Sodium Iv 40 Mg Vial IV PUSH 40 mg Q12HR HAIM Administration Polyethylene Glycol 17 gm 02/08/25 10:41 Polyethylene Glycol 3350 17 Gm Powd.Pack PO QAM PRN constipation Risperidone 1 mg 02/12/25 09:00 02/14/25 08:27 Risperidone 1 Mg Tablet FEED TUBE 1 mg Q12HR HAIM Administration Risperidone 0.5 mg 02/12/25 21:00 02/13/25 22:05 Risperidone 0.5 Mg Tablet FEED TUBE 0.5 mg HS HAIM Administration Sodium Chloride 10 ml 02/01/25 14:00 02/14/25 05:56 Central Line Flush IV PUSH 10 ml Q8HR HAIM Administration Sodium Chloride 20 ml 02/01/25 06:37 Central Line Flush IV PUSH PRN PRN after blood draws Sodium Chloride 10 ml 02/12/25 14:00 02/14/25 05:56 Central Line Flush IV PUSH 10 ml Q8HR HAIM Administration Sodium Chloride 10 ml 02/12/25 11:37 Central Line Flush IV PUSH PRN PRN with TPN bag changes Sodium Chloride 20 ml 02/12/25 11:37 Central Line Flush IV PUSH PRN PRN after blood draws Radiology Results: ITS Impressions Head CT 01/31/25 15:47 Impression: No acute intracranial hemorrhage or suspicious mass effect. Chest/Abdomen/Pelvis CTA 01/31/25 15:49 IMPRESSION: Right middle and lower lobe pneumonia with dense consolidation. Left basilar atelectasis. No pulmonary embolus. No aortic dissection. Oral contrast opacifies the entirety of the colon. Supportive lines in good position. No acute pathology within the remainder of the examination, as detailed above. Abdomen X-Ray 02/12/25 05:44 Impression: NG tube in satisfactory position. Chest X-Ray 02/14/25 09:04 Impression: 1: Right basilar opacification may represent atelectasis or pneumonia. Elevated right diaphragm unchanged. Labs Labs: Laboratory Results - last 24 hr 02/13/25 02/13/25 02/13/25 08:49 11:14 11:23 WBC RBC Hgb Hct MCV MCH MCHC RDW Plt Count MPV PT 14.5 INR 1.1 Sodium Potassium Chloride Carbon Dioxide Anion Gap BUN Creatinine Estim Creat Clear Calc Estimated GFR Glucose POC Capillary Glucose 101 Calcium Magnesium Total Bilirubin AST ALT Alkaline Phosphatase Total Protein Albumin Procalcitonin 0.2 Urine Color Yellow Urine Appearance Cloudy H Urine pH 7.5 Ur Specific [place] 1.015 Urine Protein Trace Urine Glucose (UA) Negative Urine Ketones Negative Ur Blood (Man) 2+ H Urine Nitrate Negative Urine Bilirubin Negative Urine Urobilinogen 1.0 Add Ur Microanalysis Reviewed Leukocyte Esterase Rfl Negative Urine RBC 51-100 H Urine WBC 6-10 H Ur Squamous Epith Cells Occasional Urine Bacteria None seen Urine Casts 3-5 02/13/25 02/13/25 02/14/25 17:54 23:31 05:29 WBC RBC Hgb Hct MCV MCH MCHC RDW Plt Count MPV PT INR Sodium Potassium Chloride Carbon Dioxide Anion Gap BUN Creatinine Estim Creat Clear Calc Estimated GFR Glucose POC Capillary Glucose 82 103 111 H Calcium Magnesium Total Bilirubin AST ALT Alkaline Phosphatase Total Protein Albumin Procalcitonin Urine Color Urine Appearance Urine pH Ur Specific [place] Urine Protein Urine Glucose (UA) Urine Ketones Ur Blood (Man) Urine Nitrate Urine Bilirubin Urine Urobilinogen Add Ur Microanalysis Leukocyte Esterase Rfl Urine RBC Urine WBC Ur Squamous Epith Cells Urine Bacteria Urine Casts 02/14/25 08:52 WBC 6.1 RBC 3.17 L Hgb 9.5 L Hct 29.7 L MCV 93.7 MCH 30.0 MCHC 32.0 RDW 16.5 H Plt Count 350 MPV 10.2 PT INR Sodium 142 Potassium 3.9 Chloride 101 Carbon Dioxide 33 H Anion Gap 8 BUN 21 H Creatinine 0.50 L Estim Creat Clear Calc 51 Estimated GFR > 60 Glucose 104 POC Capillary Glucose Calcium 9.4 Magnesium 2.0 Total Bilirubin 0.3 AST 39 H ALT 44 H Alkaline Phosphatase 94 Total Protein 8.0 Albumin 3.7 Procalcitonin Urine Color Urine Appearance Urine pH Ur Specific [place] Urine Protein Urine Glucose (UA) Urine Ketones Ur Blood (Man) Urine Nitrate Urine Bilirubin Urine Urobilinogen Add Ur Microanalysis Leukocyte Esterase Rfl Urine RBC Urine WBC Ur Squamous Epith Cells Urine Bacteria Urine Casts Quality VTE Prophylaxis VTE prophylaxis: mechanical ordered and pharmacologic ordered
--- NOTE | 2025-02-14 10:48 | PCFNICU ---
ICU Rounding Note: Pt current nutrition is NPO. Nutrition recommendation: Vital AF 1..2 at 50 ml/hr. Last recorded weight is 36.8 kg, down from 38 kg on admit. Bowel Motility: Last reported BM 02/10 Labs Reviewed: BUN 21, Cr 0.5, Hct 29.7, Hgb 9.5 Meds Noted:Propofol 50 mcgs= 294 kcal, Lopressor, Lovenox. Skin: WNL Additional Notes: Patient remains on mechanical vent. Tube feedings on hold at this time for PEG today. Plans for Trach 02/16. Recommending restarting Vital AF 1.2 at 50 ml/hr with Prosource BID. Flush 100 ml q 4 hours. Following daily in ICU rounds. Will monitor weight, labs, skin, diet orders, meds every Wednesday and Wednesday.
[2025-02-14 11:26] LABS: Glucose Point of Care 94 mg/dl (65-105)
[2025-02-14] MEDS: CIPROFLOXACIN 200 MG/D5W 100ML 100 ML 100 MG IVPB (14:17)
--- NOTE | 2025-02-14 14:51 | SUR.OPER ---
Sedation provided by ICU staff. 4mg Versed given at 1451 by BUSINESS SYSTEMS ADVISOR Radha.
[2025-02-14] MEDS: MIDAZOLAM HCL (*CRX) 2 MG/2 ML VIAL 4 MG IV PUSH (15:00)
--- NOTE | 2025-02-14 15:15 | WPDGIPROGNO ---
Progress Note: A&P Assessment and Plan (1) Visit for feeding tube placement: Code(s): Z46.59 - Encounter for fitting and adjustment of other gastrointestinal appliance and device Status: Acute Assessment and Plan: PEG placed no complications. The tube can be used from now for medication and feeding purposes. Will sign off, please contact for any other matter related to our specialty. Subjective Date/time seen: 02/14/25 15:15 Interval history: See EGD report - PEG placed Objective Data Vital Signs Vital Signs: Vital Signs - 24 hr 02/13/25 16:00 02/13/25 16:00 02/13/25 16:00 Temperature 100.1 F H Pulse Rate 113 H 113 H Respiratory Rate 17 17 Blood Pressure 117/76 Pulse Oximetry 100 100 Oxygen Delivery Mechanical Ventilation Fraction of Inspired Oxygen 30 30 02/13/25 16:00 02/13/25 16:40 02/13/25 16:40 Temperature Pulse Rate 112 H 104 H 104 H Respiratory Rate 14 14 Blood Pressure Pulse Oximetry Oxygen Delivery Fraction of Inspired Oxygen 02/13/25 18:00 02/13/25 18:00 02/13/25 18:00 Temperature 99.5 F Pulse Rate 101 H 101 H 101 H Respiratory Rate 12 14 Blood Pressure 104/68 Pulse Oximetry 100 Oxygen Delivery Fraction of Inspired Oxygen 02/13/25 18:03 02/13/25 19:54 02/13/25 19:54 Temperature Pulse Rate 100 108 H 108 H Respiratory Rate 14 Blood Pressure Pulse Oximetry 99 99 Oxygen Delivery Mechanical Ventilation Mechanical Ventilation Fraction of Inspired Oxygen 30 30 02/13/25 20:00 02/13/25 20:00 02/13/25 20:00 Temperature Pulse Rate 117 H 112 H Respiratory Rate 14 Blood Pressure Pulse Oximetry Oxygen Delivery Fraction of Inspired Oxygen 30 02/13/25 20:00 02/13/25 20:10 02/13/25 20:50 Temperature 99.7 F H Pulse Rate 112 H 114 H 114 H Respiratory Rate 16 17 17 Blood Pressure 115/77 Pulse Oximetry 100 99 Oxygen Delivery Mechanical Ventilation Fraction of Inspired Oxygen 30 02/13/25 22:00 02/13/25 22:00 02/13/25 22:00 Temperature 99.9 F H Pulse Rate 119 H 101 H 101 H Respiratory Rate 18 17 Blood Pressure 123/76 Pulse Oximetry 97 Oxygen Delivery Fraction of Inspired Oxygen 02/13/25 22:06 02/13/25 22:50 02/14/25 00:00 Temperature Pulse Rate 119 H 92 92 Respiratory Rate 17 Blood Pressure Pulse Oximetry 96 96 Oxygen Delivery Mechanical Ventilation Mechanical Ventilation Fraction of Inspired Oxygen 30 30 02/14/25 00:00 02/14/25 00:00 02/14/25 00:00 Temperature 99.5 F Pulse Rate 99 100 Respiratory Rate 18 14 Blood Pressure 103/70 Pulse Oximetry 100 Oxygen Delivery Fraction of Inspired Oxygen 30 02/14/25 00:00 02/14/25 02:00 02/14/25 02:00 Temperature 100.1 F H Pulse Rate 99 110 H 110 H Respiratory Rate 14 Blood Pressure 124/77 Pulse Oximetry 100 Oxygen Delivery Fraction of Inspired Oxygen 02/14/25 02:00 02/14/25 02:31 02/14/25 02:31 Temperature Pulse Rate 110 H 110 H 110 H Respiratory Rate 14 14 Blood Pressure Pulse Oximetry 97 Oxygen Delivery Mechanical Ventilation Fraction of Inspired Oxygen 30 02/14/25 02:56 02/14/25 02:56 02/14/25 02:56 Temperature Pulse Rate 108 H 108 H 107 H Respiratory Rate 15 15 14 Blood Pressure Pulse Oximetry Oxygen Delivery Fraction of Inspired Oxygen 02/14/25 04:00 02/14/25 04:00 02/14/25 04:00 Temperature 99.8 F H Pulse Rate 118 H 115 H Respiratory Rate 14 Blood Pressure 133/75 Pulse Oximetry 100 Oxygen Delivery Fraction of Inspired Oxygen 30 02/14/25 04:00 02/14/25 04:20 02/14/25 04:44 Temperature Pulse Rate 115 H 115 H 118 H Respiratory Rate 14 14 Blood Pressure Pulse Oximetry 100 97 Oxygen Delivery Mechanical Ventilation Mechanical Ventilation Fraction of Inspired Oxygen 30 30 02/14/25 06:00 02/14/25 06:00 02/14/25 06:00 Temperature 99.9 F H Pulse Rate 122 H 121 H 122 H Respiratory Rate 14 14 Blood Pressure 134/92 H Pulse Oximetry 100 Oxygen Delivery Fraction of Inspired Oxygen 02/14/25 07:43 02/14/25 07:50 02/14/25 08:00 Temperature 98.8 F Pulse Rate 103 H 104 H 114 H Respiratory Rate 14 14 Blood Pressure 147/93 H Pulse Oximetry 99 94 Oxygen Delivery Mechanical Ventilation Fraction of Inspired Oxygen 30 02/14/25 08:00 02/14/25 08:00 02/14/25 08:00 Temperature Pulse Rate 114 H Respiratory Rate Blood Pressure Pulse Oximetry 100 Oxygen Delivery Mechanical Ventilation Fraction of Inspired Oxygen 30 30 02/14/25 08:00 02/14/25 08:03 02/14/25 08:27 Temperature Pulse Rate 114 H 119 H 115 H Respiratory Rate 14 16 Blood Pressure Pulse Oximetry Oxygen Delivery Fraction of Inspired Oxygen 02/14/25 10:00 02/14/25 10:00 02/14/25 10:00 Temperature 99.4 F Pulse Rate 91 93 93 Respiratory Rate 12 14 Blood Pressure 86/60 L Pulse Oximetry 100 Oxygen Delivery Fraction of Inspired Oxygen 02/14/25 10:41 02/14/25 10:41 02/14/25 11:00 Temperature Pulse Rate 97 97 96 Respiratory Rate 14 14 Blood Pressure Pulse Oximetry 100 Oxygen Delivery Mechanical Ventilation Fraction of Inspired Oxygen 30 02/14/25 12:00 02/14/25 12:00 02/14/25 12:00 Temperature 99.5 F Pulse Rate 99 Respiratory Rate 14 Blood Pressure 112/69 Pulse Oximetry 95 94 Oxygen Delivery Mechanical Ventilation Fraction of Inspired Oxygen 30 30 02/14/25 12:00 02/14/25 12:00 02/14/25 13:33 Temperature Pulse Rate 99 99 106 H Respiratory Rate 14 Blood Pressure Pulse Oximetry 96 Oxygen Delivery Mechanical Ventilation Fraction of Inspired Oxygen 30 02/14/25 13:35 02/14/25 13:58 02/14/25 14:00 Temperature Pulse Rate 106 H 113 H 114 H Respiratory Rate 14 14 14 Blood Pressure Pulse Oximetry Oxygen Delivery Fraction of Inspired Oxygen 02/14/25 14:04 02/14/25 14:52 Temperature 99.6 F Pulse Rate 113 H 104 H Respiratory Rate 21 H 15 Blood Pressure 132/90 152/71 H Pulse Oximetry 96 Oxygen Delivery Mechanical Ventilation Fraction of Inspired Oxygen Intake/Output Intake/Output: Intake & Output 02/11/25 02/12/25 02/13/25 02/14/25 23:59 23:59 23:59 23:59 Intake Total 1673.9 1755.9 2144.4 704.8 Output Total 1460 1000 1175 550 Balance 213.9 755.9 969.4 154.8 Meds/Results Medications: Active Medications Generic Name Dose Route Start Last Admin Trade Name Freq PRN Reason Stop Dose Admin Acetaminophen 650 mg 02/03/25 22:36 02/12/25 16:43 Acetaminophen Elixir 325 Mg/10.15 Ml Udc PO 650 mg Q6H PRN Administration Mild Pain (1-3) or Fever Dextrose 12.5 gm 02/01/25 07:23 02/11/25 23:40 Dextrose 50% 25 Gm/50 Ml Syringe IV PUSH 12.5 gm PRN PRN Administration Hypoglycemia Protocol Diazepam 5 mg 02/13/25 09:22 Diazepam (*Crx) 5 Mg Tablet FEED TUBE Q8H PRN Anxiety Enoxaparin Sodium 40 mg 02/07/25 09:00 02/13/25 09:27 Enoxaparin 40 Mg/0.4 Ml Syringe SUB-Q 40 mg DAILY HAIM Administration Fentanyl Citrate 25 mcg 02/13/25 09:23 Fentanyl Citrate Inj (*Crx) 100 Mcg/2 Ml Vial IV PUSH Q2H PRN Pain or discomfort on vent Glucagon 1 mg 02/01/25 07:23 Glucagon For Inj 1 Mg Vial IM PRN PRN Hypoglycemia Protocol Glucose 15 gm 02/01/25 07:23 Glucose Oral Gel 15 Gm Of Glucse In 37.5 Gm Tube PO PRN PRN Hypoglycemia Protocol Dextrose 1,000 mls @ 100 mls/hr 02/01/25 07:23 Dextrose 5% 1,000 Ml IVPB PRN PRN Hypoglycemia Protocol Propofol 100 mls @ 11.13 mls/hr 02/10/25 15:40 02/14/25 14:00 Diprivan IV CONT 50 mcg/kg/min .Q9H HAIM 11.13 mls/hr Titration Protocol 50 MCG/KG/MIN Insulin Aspart 3 - 6 units 02/01/25 12:00 02/14/25 13:00 Insulin Aspart (*Bkc) 100 Units/Ml SUB-Q Not Given Q6HR HAIM Protocol Ipratropium [place] 0.5 mg 02/04/25 14:00 02/14/25 13:32 Ipratropium Br 0.02% Inh Soln 0.5 Mg/2.5 Ml Vial INHALATION 0.5 mg Q6HRT HAIM Administration Levalbuterol HCl 0.63 mg 02/04/25 14:00 02/14/25 13:32 Levalbuterol Neb 1.25 Mg/3 Ml INHALATION 0.63 mg Q6HRT HAIM Administration Metoprolol Tartrate 5 mg 02/04/25 04:26 02/06/25 05:47 Metoprolol Tartrate Inj 5 Mg/5 Ml Vial IV PUSH 5 mg Q6H PRN Administration HR > 130 Metoprolol Tartrate 25 mg 02/12/25 09:00 02/14/25 08:27 Metoprolol Tartrate 25 Mg Tablet PO 25 mg Q12HR HAIM Administration Midazolam HCl 4 mg 02/14/25 13:37 Midazolam Hcl (*Crx) 2 Mg/2 Ml Vial IV PUSH ONCE PRN For PEG insertion Multi-Ingred Cream/Lotion/Oil/Oint 1 applic 02/01/25 21:00 02/14/25 08:27 Mineral Oil/White Petrolatum Ointment EACH EYE 1 applic Q12HR HAIM Administration Ondansetron HCl 4 mg 01/31/25 16:00 Ondansetron Inj 4 Mg/2 Ml Vial IV PUSH Q4H PRN Nausea Oxycodone HCl 5 mg 02/13/25 09:00 02/14/25 08:26 Oxycodone (*Crx) 5 Mg/5 Ml Oral Soln Ir FEED TUBE 5 mg Q6H HAIM Administration Pantoprazole Sodium 40 mg 02/01/25 09:00 02/14/25 08:26 Pantoprazole Sodium Iv 40 Mg Vial IV PUSH 40 mg Q12HR HAIM Administration Polyethylene Glycol 17 gm 02/08/25 10:41 Polyethylene Glycol 3350 17 Gm Powd.Pack PO QAM PRN constipation Risperidone 1 mg 02/12/25 09:00 02/14/25 08:27 Risperidone 1 Mg Tablet FEED TUBE 1 mg Q12HR HAIM Administration Risperidone 0.5 mg 02/12/25 21:00 02/13/25 22:05 Risperidone 0.5 Mg Tablet FEED TUBE 0.5 mg HS HAIM Administration Sodium Chloride 10 ml 02/01/25 14:00 02/14/25 05:56 Central Line Flush IV PUSH 10 ml Q8HR HAIM Administration Sodium Chloride 20 ml 02/01/25 06:37 Central Line Flush IV PUSH PRN PRN after blood draws Sodium Chloride 10 ml 02/12/25 14:00 02/14/25 05:56 Central Line Flush IV PUSH 10 ml Q8HR HAIM Administration Sodium Chloride 10 ml 02/12/25 11:37 Central Line Flush IV PUSH PRN PRN with TPN bag changes Sodium Chloride 20 ml 02/12/25 11:37 Central Line Flush IV PUSH PRN PRN after blood draws Radiology Results: ITS Impressions Head CT 01/31/25 15:47 Impression: No acute intracranial hemorrhage or suspicious mass effect. Chest/Abdomen/Pelvis CTA 01/31/25 15:49 IMPRESSION: Right middle and lower lobe pneumonia with dense consolidation. Left basilar atelectasis. No pulmonary embolus. No aortic dissection. Oral contrast opacifies the entirety of the colon. Supportive lines in good position. No acute pathology within the remainder of the examination, as detailed above. Abdomen X-Ray 02/12/25 05:44 Impression: NG tube in satisfactory position. Chest X-Ray 02/14/25 09:04 Impression: 1: Right basilar opacification may represent atelectasis or pneumonia. Elevated right diaphragm unchanged. Labs Labs: Laboratory Results - last 24 hr 02/13/25 02/13/25 02/14/25 17:54 23:31 05:29 WBC RBC Hgb Hct MCV MCH MCHC RDW Plt Count MPV Sodium Potassium Chloride Carbon Dioxide Anion Gap BUN Creatinine Estim Creat Clear Calc Estimated GFR Glucose POC Capillary Glucose 82 103 111 H Calcium Magnesium Total Bilirubin AST ALT Alkaline Phosphatase Total Protein Albumin 02/14/25 02/14/25 08:52 11:10 WBC 6.1 RBC 3.17 L Hgb 9.5 L Hct 29.7 L MCV 93.7 MCH 30.0 MCHC 32.0 RDW 16.5 H Plt Count 350 MPV 10.2 Sodium 142 Potassium 3.9 Chloride 101 Carbon Dioxide 33 H Anion Gap 8 BUN 21 H Creatinine 0.50 L Estim Creat Clear Calc 51 Estimated GFR > 60 Glucose 104 POC Capillary Glucose 94 Calcium 9.4 Magnesium 2.0 Total Bilirubin 0.3 AST 39 H ALT 44 H Alkaline Phosphatase 94 Total Protein 8.0 Albumin 3.7
[2025-02-14 17:53] LABS: Glucose Point of Care 100 mg/dl (65-105)
[2025-02-14] MEDS: risperiDONE 0.5 MG TABLET FEED TUBE (20:53)
[2025-02-14 23:35] LABS: Glucose Point of Care 126 mg/dl (65-105)
[2025-02-15] VITALS (36 sets, daily range): BP systolic 93–117; BP diastolic 61–89; PULSE 96–134; RESP 14–24; TEMP 37.1–38.1; O2SAT 92–98
[2025-02-15] MEDS: PROPOFOL IV EMULSION 100 ML 10.02 MG IV CONT ×3 (02:22→18:16)
[2025-02-15] MEDS: IPRATROPIUM BR 0.02% INH SOLN 0.5 MG/2.5 ML VIAL INHALATION ×4 (02:23→20:37)
[2025-02-15] MEDS: LEVALBUTEROL NEB 1.25 MG/3 ML 0.63 MG INHALATION ×4 (02:23→20:37)
[2025-02-15] MEDS: oxyCODONE (*CRX) 5 MG/5 ML ORAL SOLN IR FEED TUBE ×4 (04:18→20:06)
[2025-02-15] MEDS: CENTRAL LINE FLUSH 10 ML IV PUSH ×6 (05:01→20:07)
[2025-02-15 05:03] LABS: Alveolar/Arterial O2 Gradient 57.9 mmHg; Base Excess ABG 4.9 mEq/l (+/-2.0); Carboxyhemoglobin 0.5 % THb (0-2.0); Fractional Inspired Oxygen 30 %; HCO3 ABG 30.8 mEq/l (22.0-26.0); Oxygen Content ABG 17.4 %vol (16.0-22.0); Oxygen Saturation ABG 97.2 % (95.0-100.0); Oxyhemoglobin 96.6 % THb (90.0-100.0); PCO2 ABG 51.1 mmHg (35.0-45.0); Reduced Hemoglobin 2.9 %THb (0-5.0); Total Hemoglobin 12.7 g/dL (12.0-18.0); pH ABG 7.398 (7.350-7.450)
[2025-02-15 05:04] LABS: Arterial Blood Gas PEEP 5 cmH2O; Arterial Blood Gas Tidal Volume 300 ml; Arterial Blood Gas Vent Mode CMV; Arterial Blood Gas Ventilator rate 14 /MIN; Device VENTILATOR; Site Drawn RIGHT BRACHIAL
[2025-02-15 05:15] LABS: Hematocrit 30.4 % (37.0-47.0); Hemoglobin 9.4 g/dL (12.0-15.0); Mean Corpuscular HGB Conc 30.9 g/dl (32-36); Mean Corpuscular Hemoglobin 29.4 pg (26-34); Mean Platelet Volume 10.2 fl (7.4-10.4); Platelet Count Result 362 k/mm3 (150-375); Red Cell Distribution Width 16.5 % (11.5-14.5); White Blood Count 6.1 K/mm3 (4.5-10.0)
[2025-02-15 05:23] LABS: Alanine Aminotransferase 40 U/L (6-35); Albumin Level 3.7 g/dL (3.5-5.1); Alkaline Phosphatase 95 U/L (38-126); Anion Gap 9 mmol/L (4-12); Aspartate Amino Transferase 54 U/L (14-36); Bilirubin,Total 0.3 mg/dL (0.2-1.3); Blood Urea Nitrogen 23 mg/dL (7-17); Calcium 9.5 mg/dL (8.4-10.2); Carbon Dioxide 32 mmol/L (22-30); Chloride 101 mmol/L (98-107); Estimated CRCL calculation 47 ml/min; Estimated Glomerular Filt Rate > 60; Glucose 127 mg/dL (65-110); Potassium 3.7 mmol/L (3.4-5.0); Sodium 142 mmol/L (137-145)
--- NOTE | 2025-02-15 08:02 | P.PNINT_ITS ---
Progress Note: A&P Assessment and Plan (1) Acute hypoxic respiratory failure: Code(s): J96.01 - Acute respiratory failure with hypoxia Status: Acute Assessment and Plan: 01/31/2025: Patient presented from [facility] with hypoxia, periods of apnea, and unresponsiveness. She was brought to the ED being bagged, she did not have a gag and was unresponsive in the ED so was intubated upon arrival to the ED. central line was also inserted as she was hypotensive CT scan showed right middle and right lower lobe consolidation. Since then patient has also received decent amount of IV fluids 02/05-accidentally got extubated during turning by the nursing staff. She was intubated 02/06 failed weaning trial. patient kept on going into apnea ventilation. Precedex rate was decreased and patient is now on ASV. 02/07 weaning trial was attempted again. Patient had high RSBI on PSV 03/19. Patient was erratically breathing agitated and had drop in sats. Breathing trial was aborted 02/08 failed weaning trial due to high RSBI 02/09 I attempted a SBT weaning trial this morning. On 03/19 patient respiratory rate was in 40s with tidal volume and 100s. I had to increase the pressure support to 12 to get adequate RSBI even then patient's breathing was at. patient is not a candidate for extubation at this point. She will not be able to use BiPAP considering cerebral palsy and inability to communicate. I will try to continue weaning but I anticipate that if patient does not get extubated then she may need trach for continued ventilatory support 02/10 patient failed weaning trial again due to respiratory rate in high 40s and tidal volumes in 100s.. She requires pressure support of 12/5 for adequate ventilatory numbers. She is not a candidate for BiPAP. I anticipate patient will likely need tracheostomy. I called his healthcare power assistant prosecuting attorney who is on vacation at this time I will speak him on Wednesday. 02/11 Lasix again today and plan for weaning trial again today 02/12 self-extubated. Patient was given opportunity to see if she can tolerate noninvasive oxygenation support. But patient was tachypneic with use of accessory muscle and had to be reintubated. Patient also had airway edema and was given dexamethasone At this point patient has failed multiple days of trial and is quite debilitated and weak and unable to come off the ventilator. I spoke to patient's healthcare power assistant prosecuting attorney Mateo Warren who regarding option of proceeding need tracheostomy and PEG tube placement for ongoing ventilator support. He is agreeable to proceed with both and consented. Consent was also obtained for a PICC line ENT consulted for tracheostomy and patient is scheduled for tracheostomy on Wednesday -currently on CMV mode of ventilation, peep of 5 and 30 % FiO2 -ABGs and chest x-ray reviewed, ventilator adjusted by decreasing the rate -continue bronchodilators and Mucomyst nebulizer -completed course of Zosyn and azithromycin (2) Sepsis: Qualifiers: Sepsis type: sepsis due to unspecified organism Sepsis acute organ dysfunction status: unspecified Qualified Code(s): A41.9 - Sepsis, unspecified organism Code(s): A41.9 - Sepsis, unspecified organism Status: Acute Assessment and Plan: Patient presented with altered mental status, hypoxia, apnea, pneumonia. Patient initially required vasopressors but now off 4/1 low-grade fever overnight with increase tachycardia. Tachycardia could be secondary discontinuation of Precedex. WBC normal Chest x-ray shows clear lungs For limb sputum culture is negative, Arredondo catheter was, urinalysis reviewed and negative for nitrates or leukoesterase, pending blood cultures, low procalcitonin level Hold antibiotics for now Check lower extremity Dopplers. Will start empiric antibiotics to cover for other etiologies like sinusitis (3) AMS (altered mental status): Qualifiers: Altered mental status type: unspecified Qualified Code(s): R41.82 - Altered mental status, unspecified Code(s): R41.82 - Altered mental status, unspecified Status: Acute Assessment and Plan: Encephalopathy could be related to hypoxia, hypercapnia, pneumonia/infection/hypotension, could be related to medication -head CT negative at the time of presentation -currently intubated -continue propofol I will discontinue Precedex -upon review of chart patient appears to be nonverbal at baseline and communicates her needs with gestures. She walks around in the hallways and is able to eat modified diet (4) Pneumonia: Qualifiers: Pneumonia type: due to unspecified organism Laterality: right Lung location: unspecified part of lung Qualified Code(s): J18.9 - Pneumonia, unspecified organism Code(s): J18.9 - Pneumonia, unspecified organism Status: Acute Assessment and Plan: Chest x-ray and CTA chest show right lower lobe consolidation -according the [facility] records: Repeat CT chest showed interval development of new airspace opacities raising concern for aspiration pneumonia. She was transition to Zosyn from cefepime. MBS performed on 01/26 at [facility] which showed no evidence of aspiration despite coughing especially with swallowing. - completed course of Zosyn, azithromycin (01/31) -MRSA screen is negative, vancomycin discontinued (02/01) (5) Cerebral palsy: Qualifiers: Cerebral palsy type: other type Qualified Code(s): G80.8 - Other cerebral palsy Code(s): G80.9 - Cerebral palsy, unspecified Status: Acute Assessment and Plan: Patient with cerebral palsy, mild intellectual disability, schizophrenia, nonverbal at baseline according the chart -patient on risperidone, will restart prior to extubation as she is currently sedated and intubated (6) Anemia: Qualifiers: Anemia type: unspecified type Qualified Code(s): D64.9 - Anemia, unspecified Code(s): D64.9 - Anemia, unspecified Status: Acute Assessment and Plan: Patient admitted with a hemoglobin of 10.3 on 01/31 -02/01: Hemoglobin dropped to 7.7, a repeat CBC was done which showed a hemoglobin of 7.3 -will check stools for occult blood, -folic acid and vitamin B12 level within normal limits -low iron levels, low TIBC, will give Venofer -LDH is normal, haptoglobin is pending -Protonix IV q.12 hours -continue to monitor (7) Electrolyte imbalance: Code(s): E87.8 - Other disorders of electrolyte and fluid balance, not elsewhere classified Status: Acute Assessment and Plan: Continue free water flush to 100 mL Replace low potassium (8) Sinus tachycardia: Code(s): R00.0 - Tachycardia, unspecified Status: Acute Assessment and Plan: 02/04: Patient developed SVT/sinus tachycardia overnight with rates in the 180- 200s. Was given IV metoprolol x1 with improvement which brought her rate start to 130s. -could be multifactorial, related to sepsis, anemia, coronary artery disease -TSH normal -will continue metoprolol -currently sinus tachycardia monitor - mild elevation in troponin level with the levels have trended down -cardiology consult 02/02/2025: Echocardiogram Summary 1. Complete two-dimensional, color flow and Doppler transthoracic echocardiogram is performed. 2. Left ventricular chamber dimension is normal. 3. Left ventricular systolic function is normal, estimated at 60-65%. 4. The left ventricular diastolic function is grade I diastolic dysfunction. 5. E/e' 7 is not elevated. 6. There is mild aortic valve sclerosis. 7. There is trace tricuspid valve regurgitation. 8. Mild pulmonary hypertension, estimated pulmonary arterial systolic pressure is 41 mmHg. (9) Constipation: Qualifiers: Constipation type: unspecified constipation type Qualified Code(s): K59.00 - Constipation, unspecified Code(s): K59.00 - Constipation, unspecified Status: Acute Assessment and Plan: 02/04: KUB showed moderate fecal retention -improved with laxatives as patient is now having bowel movements. 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 I spoke to him this morning and we discussed patient's failure to wean. I discussed option of tracheostomy PEG tube and PICC line he is agreeable to proceed with all. I explained him that we may not have ENT coverage and we may have to transfer the patient very tracheostomy and he was agreeable to transfer to either [facility] or [facility] hospitals for the procedure if needed Patient is scheduled for tracheostomy on Wednesday. Critical Care Time Spent: 30 minutes Due to a high probability of clinically significant, life threatening deterioration, the patient required my highest level of preparedness to intervene emergently and I personally spent this critical care time directly and personally managing the patient. This critical care time included obtaining a history; examining the patient; pulse oximetry; ordering and review of studies; arranging urgent treatment with development of a management plan; evaluation of patient's response to treatment; frequent reassessment; and discussions with other providers. It was exclusive of separately billable procedures and treating other patients and teaching time. Please see Assessment and Plan section and the rest of the note for further information on patient assessment and treatment This dictation may have been done utilizing a voice recognition system. Attempts have been made to correct errors. However, there may be uncorrected grammatical, spelling, and recognitions errors present. Subjective Date/time seen: 02/15/25 Overnight events reviewed. febrile overnight Continues to be on mechanical ventilation 30% FiO2 Patient had PEG tube inserted yesterday. Now back on tube feeds. Continues to be sedated with propofol Other Vitals acceptable Interval history: Reason for consult: Acute respiratory failure, pneumonia, altered mental status, unresponsiveness, anemia 4/2 PEG tube insertion Review of Systems Review of Systems: ROS unobtainable: Yes unobtainable due to endotracheal tube, unobtainable due to medical condition and unobtainable due to mental status Exam Narrative: General: Petite female/malnourished, in no acute distress HEENT:? Pupils are pinpoint, sluggish, ETT in place Neck:? Supple Respiratory:? Coarse breath sounds bilaterally, rales on right base, no wheezing, adequate air entry otherwise Cardiac:? S1-S2 normal, regular rate and rhythm Abdomen:? Soft, nontender, nondistended, hypoactive bowel sounds, peg tube in place Extremities:? Trace edema, bilateral pedal pulses are palpable Neuro:? Intubated, sedated, Skin:? No skin lesions noted Psych:? Unable to assess at this time Objective Data Vital Signs Vital Signs: Vital Signs - 24 hr 02/14/25 08:03 02/14/25 08:27 02/14/25 10:00 Temperature 37.4 C Pulse Rate 119 H 115 H 91 Respiratory Rate 16 12 Blood Pressure 86/60 L Pulse Oximetry 100 Oxygen Delivery Fraction of Inspired Oxygen 02/14/25 10:00 02/14/25 10:00 02/14/25 10:41 Temperature Pulse Rate 93 93 97 Respiratory Rate 14 14 Blood Pressure Pulse Oximetry Oxygen Delivery Fraction of Inspired Oxygen 02/14/25 10:41 02/14/25 11:00 02/14/25 12:00 Temperature 37.5 C Pulse Rate 97 96 99 Respiratory Rate 14 14 Blood Pressure 112/69 Pulse Oximetry 100 95 Oxygen Delivery Mechanical Ventilation Fraction of Inspired Oxygen 30 02/14/25 12:00 02/14/25 12:00 02/14/25 12:00 Temperature Pulse Rate 99 Respiratory Rate Blood Pressure Pulse Oximetry 94 Oxygen Delivery Mechanical Ventilation Fraction of Inspired Oxygen 30 30 02/14/25 12:00 02/14/25 13:33 02/14/25 13:35 Temperature Pulse Rate 99 106 H 106 H Respiratory Rate 14 14 Blood Pressure Pulse Oximetry 96 Oxygen Delivery Mechanical Ventilation Fraction of Inspired Oxygen 30 02/14/25 13:58 02/14/25 14:00 02/14/25 14:00 Temperature Pulse Rate 113 H 114 H 101 H Respiratory Rate 14 14 Blood Pressure Pulse Oximetry Oxygen Delivery Fraction of Inspired Oxygen 02/14/25 14:04 02/14/25 14:52 02/14/25 16:00 Temperature 37.6 C 36.9 C Pulse Rate 113 H 104 H 101 H Respiratory Rate 21 H 15 14 Blood Pressure 132/90 152/71 H 126/83 Pulse Oximetry 96 95 Oxygen Delivery Mechanical Ventilation Fraction of Inspired Oxygen 02/14/25 16:00 02/14/25 16:00 02/14/25 16:00 Temperature Pulse Rate 101 H Respiratory Rate 14 Blood Pressure Pulse Oximetry 95 Oxygen Delivery Mechanical Ventilation Fraction of Inspired Oxygen 30 30 02/14/25 16:00 02/14/25 17:39 02/14/25 17:39 Temperature Pulse Rate 108 H 116 H 116 H Respiratory Rate 14 14 Blood Pressure Pulse Oximetry Oxygen Delivery Fraction of Inspired Oxygen 02/14/25 18:00 02/14/25 18:00 02/14/25 18:03 Temperature 37.8 C H Pulse Rate 114 H 113 H 118 H Respiratory Rate 14 Blood Pressure 108/69 Pulse Oximetry 95 97 Oxygen Delivery Mechanical Ventilation Fraction of Inspired Oxygen 30 02/14/25 18:25 02/14/25 20:00 02/14/25 20:00 Temperature 37.9 C H Pulse Rate 115 H 116 H 115 H Respiratory Rate 14 14 14 Blood Pressure 112/75 Pulse Oximetry 91 Oxygen Delivery Fraction of Inspired Oxygen 02/14/25 20:00 02/14/25 20:00 02/14/25 20:12 Temperature Pulse Rate 112 H 115 H Respiratory Rate 14 Blood Pressure Pulse Oximetry 91 Oxygen Delivery Mechanical Ventilation Fraction of Inspired Oxygen 30 30 02/14/25 20:14 02/14/25 20:14 02/14/25 20:20 Temperature Pulse Rate 118 H 118 H 113 H Respiratory Rate 14 14 Blood Pressure Pulse Oximetry 98 Oxygen Delivery Mechanical Ventilation Fraction of Inspired Oxygen 30 02/14/25 20:53 02/14/25 22:00 02/14/25 22:00 Temperature 37.8 C H Pulse Rate 111 H 102 H 103 H Respiratory Rate 14 Blood Pressure 95/64 L Pulse Oximetry 97 Oxygen Delivery Fraction of Inspired Oxygen 02/14/25 22:00 02/14/25 23:22 02/14/25 23:28 Temperature Pulse Rate 112 H 113 H 111 H Respiratory Rate 14 14 Blood Pressure Pulse Oximetry 98 Oxygen Delivery Mechanical Ventilation Fraction of Inspired Oxygen 30 02/15/25 00:00 02/15/25 00:00 02/15/25 00:00 Temperature 38.0 C H Pulse Rate 109 H 109 H Respiratory Rate 16 16 Blood Pressure 105/89 Pulse Oximetry 97 97 Oxygen Delivery Mechanical Ventilation Fraction of Inspired Oxygen 30 30 02/15/25 00:00 02/15/25 00:00 02/15/25 02:00 Temperature Pulse Rate 110 H 109 H 119 H Respiratory Rate 14 Blood Pressure Pulse Oximetry Oxygen Delivery Fraction of Inspired Oxygen 02/15/25 02:00 02/15/25 02:00 02/15/25 02:22 Temperature 38.1 C H Pulse Rate 117 H 117 H 118 H Respiratory Rate 14 14 14 Blood Pressure 117/76 Pulse Oximetry 95 Oxygen Delivery Fraction of Inspired Oxygen 02/15/25 02:22 02/15/25 02:23 02/15/25 02:23 Temperature Pulse Rate 117 H 118 H 118 H Respiratory Rate 14 14 Blood Pressure Pulse Oximetry 94 Oxygen Delivery Mechanical Ventilation Fraction of Inspired Oxygen 30 02/15/25 02:50 02/15/25 04:00 02/15/25 04:00 Temperature 37.9 C H Pulse Rate 134 H 134 H 134 H Respiratory Rate 14 14 18 Blood Pressure 103/71 Pulse Oximetry 96 Oxygen Delivery Fraction of Inspired Oxygen 02/15/25 04:00 02/15/25 04:00 02/15/25 04:24 Temperature Pulse Rate 133 H 134 H Respiratory Rate 14 Blood Pressure Pulse Oximetry 96 Oxygen Delivery Mechanical Ventilation Fraction of Inspired Oxygen 30 30 02/15/25 04:57 02/15/25 06:00 02/15/25 06:00 Temperature 37.7 C H Pulse Rate 131 H 127 H 127 H Respiratory Rate 14 Blood Pressure 113/70 Pulse Oximetry 97 97 Oxygen Delivery Mechanical Ventilation Fraction of Inspired Oxygen 30 02/15/25 06:00 Temperature Pulse Rate 127 H Respiratory Rate 14 Blood Pressure Pulse Oximetry Oxygen Delivery Fraction of Inspired Oxygen Intake/Output Intake/Output: Intake & Output 02/12/25 02/13/25 02/14/25 02/15/25 23:59 23:59 23:59 23:59 Intake Total 1755.9 2144.4 910.2 705.4 Output Total 1000 1175 1100 600 Balance 755.9 969.4 -189.8 105.4 Meds/Results Medications: Active Medications Generic Name Dose Route Start Last Admin Trade Name Freq PRN Reason Stop Dose Admin Acetaminophen 650 mg 02/03/25 22:36 02/12/25 16:43 Acetaminophen Elixir 325 Mg/10.15 Ml Udc PO 650 mg Q6H PRN Administration Mild Pain (1-3) or Fever Dextrose 12.5 gm 02/01/25 07:23 02/11/25 23:40 Dextrose 50% 25 Gm/50 Ml Syringe IV PUSH 12.5 gm PRN PRN Administration Hypoglycemia Protocol Diazepam 5 mg 02/13/25 09:22 Diazepam (*Crx) 5 Mg Tablet FEED TUBE Q8H PRN Anxiety Enoxaparin Sodium 40 mg 02/07/25 09:00 02/13/25 09:27 Enoxaparin 40 Mg/0.4 Ml Syringe SUB-Q 40 mg DAILY HAIM Administration Fentanyl Citrate 25 mcg 02/13/25 09:23 Fentanyl Citrate Inj (*Crx) 100 Mcg/2 Ml Vial IV PUSH Q2H PRN Pain or discomfort on vent Glucagon 1 mg 02/01/25 07:23 Glucagon For Inj 1 Mg Vial IM PRN PRN Hypoglycemia Protocol Glucose 15 gm 02/01/25 07:23 Glucose Oral Gel 15 Gm Of Glucse In 37.5 Gm Tube PO PRN PRN Hypoglycemia Protocol Dextrose 1,000 mls @ 100 mls/hr 02/01/25 07:23 Dextrose 5% 1,000 Ml IVPB PRN PRN Hypoglycemia Protocol Propofol 100 mls @ 10.017 mls/hr 02/10/25 15:40 02/15/25 06:00 Diprivan IV CONT 45 mcg/kg/min .Q9H59M HAIM 10.02 mls/hr Titration Protocol 45 MCG/KG/MIN Insulin Aspart 3 - 6 units 02/01/25 12:00 02/15/25 06:06 Insulin Aspart (*Bkc) 100 Units/Ml SUB-Q Not Given Q6HR [facility] Protocol Ipratropium [place] 0.5 mg 02/04/25 14:00 02/15/25 02:23 Ipratropium Br 0.02% Inh Soln 0.5 Mg/2.5 Ml Vial INHALATION 0.5 mg Q6HRT HAIM Administration Levalbuterol HCl 0.63 mg 02/04/25 14:00 02/15/25 02:23 Levalbuterol Neb 1.25 Mg/3 Ml INHALATION 0.63 mg Q6HRT HAIM Administration Metoprolol Tartrate 5 mg 02/04/25 04:26 02/06/25 05:47 Metoprolol Tartrate Inj 5 Mg/5 Ml Vial IV PUSH 5 mg Q6H PRN Administration HR > 130 Metoprolol Tartrate 25 mg 02/12/25 09:00 02/14/25 20:53 Metoprolol Tartrate 25 Mg Tablet PO 25 mg Q12HR HAIM Administration Midazolam HCl 4 mg 02/14/25 13:37 02/14/25 15:00 Midazolam Hcl (*Crx) 2 Mg/2 Ml Vial IV PUSH 4 mg ONCE PRN Administration For PEG insertion Multi-Ingred Cream/Lotion/Oil/Oint 1 applic 02/01/25 21:00 02/14/25 20:54 Mineral Oil/White Petrolatum Ointment EACH EYE 1 applic Q12HR HAIM Administration Ondansetron HCl 4 mg 01/31/25 16:00 Ondansetron Inj 4 Mg/2 Ml Vial IV PUSH Q4H PRN Nausea Oxycodone HCl 5 mg 02/13/25 09:00 02/15/25 04:18 Oxycodone (*Crx) 5 Mg/5 Ml Oral Soln Ir FEED TUBE 5 mg Q6H HAIM Administration Pantoprazole Sodium 40 mg 02/01/25 09:00 02/14/25 20:53 Pantoprazole Sodium Iv 40 Mg Vial IV PUSH 40 mg Q12HR HAIM Administration Polyethylene Glycol 17 gm 02/08/25 10:41 Polyethylene Glycol 3350 17 Gm Powd.Pack PO QAM PRN constipation Risperidone 1 mg 02/12/25 09:00 02/14/25 20:53 Risperidone 1 Mg Tablet FEED TUBE 1 mg Q12HR HAIM Administration Risperidone 0.5 mg 02/12/25 21:00 02/14/25 20:53 Risperidone 0.5 Mg Tablet FEED TUBE 0.5 mg HS HAIM Administration Sodium Chloride 10 ml 02/01/25 14:00 02/15/25 05:01 Central Line Flush IV PUSH 10 ml Q8HR HAIM Administration Sodium Chloride 20 ml 02/01/25 06:37 Central Line Flush IV PUSH PRN PRN after blood draws Sodium Chloride 10 ml 02/12/25 14:00 02/15/25 05:01 Central Line Flush IV PUSH 10 ml Q8HR HAIM Administration Sodium Chloride 10 ml 02/12/25 11:37 Central Line Flush IV PUSH PRN PRN with TPN bag changes Sodium Chloride 20 ml 02/12/25 11:37 Central Line Flush IV PUSH PRN PRN after blood draws Radiology Results: ITS Impressions Head CT 01/31/25 15:47 Impression: No acute intracranial hemorrhage or suspicious mass effect. Chest/Abdomen/Pelvis CTA 01/31/25 15:49 IMPRESSION: Right middle and lower lobe pneumonia with dense consolidation. Left basilar atelectasis. No pulmonary embolus. No aortic dissection. Oral contrast opacifies the entirety of the colon. Supportive lines in good position. No acute pathology within the remainder of the examination, as detailed above. Abdomen X-Ray 02/12/25 05:44 Impression: NG tube in satisfactory position. Chest X-Ray 02/15/25 06:15 Impression: Clear lungs with stable elevation of right hemidiaphragm. Support tubes, as above. Labs Labs: Laboratory Results - last 24 hr 02/14/25 02/14/25 02/14/25 08:52 11:10 17:51 WBC 6.1 RBC 3.17 L Hgb 9.5 L Hct 29.7 L MCV 93.7 MCH 30.0 MCHC 32.0 RDW 16.5 H Plt Count 350 MPV 10.2 Puncture Site ABG pH ABG pCO2 ABG pO2 ABG PO2/FiO2 Ratio ABG HCO3 ABG O2 Saturation ABG O2 Content ABG Base Excess A-a Gradient Oxyhemoglobin Carboxyhemoglobin Methemoglobin Reduced Hemoglobin Total Hemoglobin O2 Delivery Device O2 Liters/Min Minute Volume Vent Rate Vent Mode FiO2 Tidal Volume PEEP Peak Inspir Pressure Pressure Support Sodium 142 Potassium 3.9 Chloride 101 Carbon Dioxide 33 H Anion Gap 8 BUN 21 H Creatinine 0.50 L Estim Creat Clear Calc 51 Estimated GFR > 60 Glucose 104 POC Capillary Glucose 94 100 Calcium 9.4 Magnesium 2.0 Total Bilirubin 0.3 AST 39 H ALT 44 H Alkaline Phosphatase 94 Total Protein 8.0 Albumin 3.7 02/14/25 02/15/25 02/15/25 23:29 04:57 05:04 WBC 6.1 RBC 3.20 L Hgb 9.4 L Hct 30.4 L MCV 95.0 MCH 29.4 MCHC 30.9 L RDW 16.5 H Plt Count 362 MPV 10.2 Puncture Site Right brachial ABG pH 7.398 ABG pCO2 51.1 H ABG pO2 96.0 ABG PO2/FiO2 Ratio 3.20 ABG HCO3 30.8 H ABG O2 Saturation 97.2 ABG O2 Content 17.4 ABG Base Excess 4.9 A-a Gradient 57.9 Oxyhemoglobin 96.6 Carboxyhemoglobin 0.5 Methemoglobin 0.0 Reduced Hemoglobin 2.9 Total Hemoglobin 12.7 O2 Delivery Device Ventilator O2 Liters/Min Not Reportable Minute Volume Not Reportable Vent Rate 14 Vent Mode Cmv FiO2 30 Tidal Volume 300 PEEP 5 Peak Inspir Pressure Not Reportable Pressure Support Not Reportable Sodium 142 Potassium 3.7 Chloride 101 Carbon Dioxide 32 H Anion Gap 9 BUN 23 H Creatinine 0.54 L Estim Creat Clear Calc 47 Estimated GFR > 60 Glucose 127 H POC Capillary Glucose 126 H Calcium 9.5 Magnesium 2.0 Total Bilirubin 0.3 AST 54 H ALT 40 H Alkaline Phosphatase 95 Total Protein 8.0 Albumin 3.7 Quality VTE Prophylaxis VTE prophylaxis: mechanical ordered and pharmacologic ordered
--- NOTE | 2025-02-15 08:09 | PM.IMPN ---
Progress Note: A&P Assessment and Plan (1) Acute hypoxic respiratory failure: Code(s): J96.01 - Acute respiratory failure with hypoxia Status: Acute Assessment and Plan: 01/31/2025: Patient presented from [facility], [place] with hypoxia, periods of apnea, and unresponsiveness. She was brought to the ED being bagged, she did not have a gag and was unresponsive in the ED so was intubated upon arrival to the ED. central line was also inserted as she was hypotensive CT scan showed right middle and right lower lobe consolidation. Since then patient has also received decent amount of IV fluids ENT consulted for tracheostomy and patient is scheduled for tracheostomy on Wednesday Continue CMV mode of ventilation, peep of 5 and 30 % FiO2 per cyber systems operations specialist (2) Sepsis: Qualifiers: Sepsis acute organ dysfunction status: unspecified Sepsis type: sepsis due to unspecified organism Qualified Code(s): A41.9 - Sepsis, unspecified organism Code(s): A41.9 - Sepsis, unspecified organism Status: Acute Assessment and Plan: Patient presented with altered mental status, hypoxia, apnea, pneumonia. Patient initially required vasopressors but now off Still has a fever overnight Start empiric antibiotics to cover for other etiologies Blood culture negative on February 13 (3) AMS (altered mental status): Qualifiers: Altered mental status type: unspecified Qualified Code(s): R41.82 - Altered mental status, unspecified Code(s): R41.82 - Altered mental status, unspecified Status: Acute Assessment and Plan: Encephalopathy could be related to hypoxia, hypercapnia, pneumonia/infection/hypotension, could be related to medication -head CT negative at the time of presentation -currently intubated -continue propofol I will discontinue Precedex -upon review of chart patient appears to be nonverbal at baseline and communicates her needs with gestures. She walks around in the hallways and is able to eat modified diet (4) Pneumonia: Qualifiers: Laterality: right Lung location: unspecified part of lung Pneumonia type: due to unspecified organism Qualified Code(s): J18.9 - Pneumonia, unspecified organism Code(s): J18.9 - Pneumonia, unspecified organism Status: Acute Assessment and Plan: Chest x-ray and CTA chest show right lower lobe consolidation -according the [facility] records: Repeat CT chest showed interval development of new airspace opacities raising concern for aspiration pneumonia. She was transition to Zosyn from cefepime. MBS performed on 01/26 at [facility] which showed no evidence of aspiration despite coughing especially with swallowing. completed course of Zosyn, azithromycin (01/31) -MRSA screen is negative, vancomycin discontinued (02/01) (5) Cerebral palsy: Qualifiers: Cerebral palsy type: other type Qualified Code(s): G80.8 - Other cerebral palsy Code(s): G80.9 - Cerebral palsy, unspecified Status: Acute Assessment and Plan: Patient with cerebral palsy, mild intellectual disability, schizophrenia, nonverbal at baseline according the chart -patient on risperidone, will restart prior to extubation as she is currently sedated and intubated (6) Anemia: Qualifiers: Anemia type: unspecified type Qualified Code(s): D64.9 - Anemia, unspecified Code(s): D64.9 - Anemia, unspecified Status: Acute Assessment and Plan: Patient admitted with a hemoglobin of 10.3 on 01/31 -02/01: Hemoglobin dropped to 7.7, a repeat CBC was done which showed a hemoglobin of 7.3 -will check stools for occult blood, -folic acid and vitamin B12 level within normal limits -low iron levels, low TIBC, will give Venofer -LDH is normal, haptoglobin is pending -Protonix IV q.12 hours -continue to monitor (7) Electrolyte imbalance: Code(s): E87.8 - Other disorders of electrolyte and fluid balance, not elsewhere classified Status: Acute Assessment and Plan: Continue free water flush to 100 mL Replace low potassium (8) Sinus tachycardia: Code(s): R00.0 - Tachycardia, unspecified Status: Acute Assessment and Plan: 02/04: Patient developed SVT/sinus tachycardia overnight with rates in the 180-200s. Was given IV metoprolol x1 with improvement which brought her rate start to 130s. -could be multifactorial, related to sepsis, anemia, coronary artery disease -TSH normal -will continue metoprolol -currently sinus tachycardia monitor - mild elevation in troponin level with the levels have trended down -cardiology consult 02/02/2025: Echocardiogram Summary 1. Complete two-dimensional, color flow and Doppler transthoracic echocardiogram is performed. 2. Left ventricular chamber dimension is normal. 3. Left ventricular systolic function is normal, estimated at 60-65%. 4. The left ventricular diastolic function is grade I diastolic dysfunction. 5. E/e' 7 is not elevated. 6. There is mild aortic valve sclerosis. 7. There is trace tricuspid valve regurgitation. 8. Mild pulmonary hypertension, estimated pulmonary arterial systolic pressure is 41 mmHg. (9) Constipation: Qualifiers: Constipation type: unspecified constipation type Qualified Code(s): K59.00 - Constipation, unspecified Code(s): K59.00 - Constipation, unspecified Status: Acute Assessment and Plan: 02/04: KUB showed moderate fecal retention -improved with laxatives as patient is now having bowel movements. Continue Docusate sodium and senna and MiraLax Plan DVT prophylaxis: Lovenox Stress ulcer prophylaxis: Protonix IV q.12 hours Nutrition: PEG tube placed Tolerating tube feeds, patient on stool softener and MiraLax Subjective Date/time seen: 02/15/25 08:09 Interval history: I saw exam patient ICU. Patient is on mechanical medication because of acute respiratory failure, unresponsiveness, patient is on NG tube feeding, Blood pressure stable, has fever overnight 100.5, afebrile in the morning Labs reviewed No new issue or events overnight Exam Narrative: General: Ill-appearing, no acute distress HEENT:? Pupils are pinpoint, sluggish, ETT in place Neck:? Supple Respiratory:? Coarse breath sound bilaterally, Cardiac:? S1-S2 normal, regular rate and rhythm Abdomen:? Soft, nontender, nondistended, hypoactive bowel sounds, peg tube in place Extremities:? Slower extremities edema, bilateral pedal pulses are palpable Neuro:? Intubated, sedated, not responsive to verbal commands Skin:? No skin lesions noted Psych:? On sedation Objective Data Vital Signs Vital Signs: Vital Signs - 24 hr 02/14/25 08:27 02/14/25 10:00 02/14/25 10:00 Temperature 99.4 F Pulse Rate 115 H 91 93 Respiratory Rate 12 Blood Pressure 86/60 L Pulse Oximetry 100 Oxygen Delivery Fraction of Inspired Oxygen 02/14/25 10:00 02/14/25 10:41 02/14/25 10:41 Temperature Pulse Rate 93 97 97 Respiratory Rate 14 14 14 Blood Pressure Pulse Oximetry Oxygen Delivery Fraction of Inspired Oxygen 02/14/25 11:00 02/14/25 12:00 02/14/25 12:00 Temperature 99.5 F Pulse Rate 96 99 Respiratory Rate 14 Blood Pressure 112/69 Pulse Oximetry 100 95 94 Oxygen Delivery Mechanical Ventilation Mechanical Ventilation Fraction of Inspired Oxygen 30 30 02/14/25 12:00 02/14/25 12:00 02/14/25 12:00 Temperature Pulse Rate 99 99 Respiratory Rate 14 Blood Pressure Pulse Oximetry Oxygen Delivery Fraction of Inspired Oxygen 30 02/14/25 13:33 02/14/25 13:35 02/14/25 13:58 Temperature Pulse Rate 106 H 106 H 113 H Respiratory Rate 14 14 Blood Pressure Pulse Oximetry 96 Oxygen Delivery Mechanical Ventilation Fraction of Inspired Oxygen 30 02/14/25 14:00 02/14/25 14:00 02/14/25 14:04 Temperature 99.6 F Pulse Rate 114 H 101 H 113 H Respiratory Rate 14 21 H Blood Pressure 132/90 Pulse Oximetry 96 Oxygen Delivery Mechanical Ventilation Fraction of Inspired Oxygen 02/14/25 14:52 02/14/25 16:00 02/14/25 16:00 Temperature 98.5 F Pulse Rate 104 H 101 H 101 H Respiratory Rate 15 14 14 Blood Pressure 152/71 H 126/83 Pulse Oximetry 95 Oxygen Delivery Fraction of Inspired Oxygen 02/14/25 16:00 02/14/25 16:00 02/14/25 16:00 Temperature Pulse Rate 108 H Respiratory Rate Blood Pressure Pulse Oximetry 95 Oxygen Delivery Mechanical Ventilation Fraction of Inspired Oxygen 30 30 02/14/25 17:39 02/14/25 17:39 02/14/25 18:00 Temperature Pulse Rate 116 H 116 H 114 H Respiratory Rate 14 14 Blood Pressure Pulse Oximetry Oxygen Delivery Fraction of Inspired Oxygen 02/14/25 18:00 02/14/25 18:03 02/14/25 18:25 Temperature 100.0 F H Pulse Rate 113 H 118 H 115 H Respiratory Rate 14 14 Blood Pressure 108/69 Pulse Oximetry 95 97 Oxygen Delivery Mechanical Ventilation Fraction of Inspired Oxygen 30 02/14/25 20:00 02/14/25 20:00 02/14/25 20:00 Temperature 100.2 F H Pulse Rate 116 H 115 H Respiratory Rate 14 14 Blood Pressure 112/75 Pulse Oximetry 91 Oxygen Delivery Fraction of Inspired Oxygen 30 02/14/25 20:00 02/14/25 20:12 02/14/25 20:14 Temperature Pulse Rate 112 H 115 H 118 H Respiratory Rate 14 Blood Pressure Pulse Oximetry 91 98 Oxygen Delivery Mechanical Ventilation Mechanical Ventilation Fraction of Inspired Oxygen 30 30 02/14/25 20:14 02/14/25 20:20 02/14/25 20:53 Temperature Pulse Rate 118 H 113 H 111 H Respiratory Rate 14 14 Blood Pressure Pulse Oximetry Oxygen Delivery Fraction of Inspired Oxygen 02/14/25 22:00 02/14/25 22:00 02/14/25 22:00 Temperature 100.1 F H Pulse Rate 102 H 103 H 112 H Respiratory Rate 14 14 Blood Pressure 95/64 L Pulse Oximetry 97 Oxygen Delivery Fraction of Inspired Oxygen 02/14/25 23:22 02/14/25 23:28 02/15/25 00:00 Temperature 100.4 F H Pulse Rate 113 H 111 H 109 H Respiratory Rate 14 16 Blood Pressure 105/89 Pulse Oximetry 98 97 Oxygen Delivery Mechanical Ventilation Fraction of Inspired Oxygen 30 02/15/25 00:00 02/15/25 00:00 02/15/25 00:00 Temperature Pulse Rate 109 H 110 H Respiratory Rate 16 14 Blood Pressure Pulse Oximetry 97 Oxygen Delivery Mechanical Ventilation Fraction of Inspired Oxygen 30 30 02/15/25 00:00 02/15/25 02:00 02/15/25 02:00 Temperature 100.5 F H Pulse Rate 109 H 119 H 117 H Respiratory Rate 14 Blood Pressure 117/76 Pulse Oximetry 95 Oxygen Delivery Fraction of Inspired Oxygen 02/15/25 02:00 02/15/25 02:22 02/15/25 02:22 Temperature Pulse Rate 117 H 118 H 117 H Respiratory Rate 14 14 14 Blood Pressure Pulse Oximetry Oxygen Delivery Fraction of Inspired Oxygen 02/15/25 02:23 02/15/25 02:23 02/15/25 02:50 Temperature Pulse Rate 118 H 118 H 134 H Respiratory Rate 14 14 Blood Pressure Pulse Oximetry 94 Oxygen Delivery Mechanical Ventilation Fraction of Inspired Oxygen 30 02/15/25 04:00 02/15/25 04:00 02/15/25 04:00 Temperature 100.2 F H Pulse Rate 134 H 134 H Respiratory Rate 14 18 Blood Pressure 103/71 Pulse Oximetry 96 Oxygen Delivery Fraction of Inspired Oxygen 30 02/15/25 04:00 02/15/25 04:24 02/15/25 04:57 Temperature Pulse Rate 133 H 134 H 131 H Respiratory Rate 14 Blood Pressure Pulse Oximetry 96 97 Oxygen Delivery Mechanical Ventilation Mechanical Ventilation Fraction of Inspired Oxygen 30 30 02/15/25 06:00 02/15/25 06:00 02/15/25 06:00 Temperature 99.9 F H Pulse Rate 127 H 127 H 127 H Respiratory Rate 14 14 Blood Pressure 113/70 Pulse Oximetry 97 Oxygen Delivery Fraction of Inspired Oxygen Intake/Output Intake/Output: Intake & Output 02/12/25 02/13/25 02/14/25 02/15/25 23:59 23:59 23:59 23:59 Intake Total 1755.9 2144.4 910.2 705.4 Output Total 1000 1175 1100 600 Balance 755.9 969.4 -189.8 105.4 Meds/Results Medications: Active Medications Generic Name Dose Route Start Last Admin Trade Name Freq PRN Reason Stop Dose Admin Acetaminophen 650 mg 02/03/25 22:36 02/12/25 16:43 Acetaminophen Elixir 325 Mg/10.15 Ml Udc PO 650 mg Q6H PRN Administration Mild Pain (1-3) or Fever Dextrose 12.5 gm 02/01/25 07:23 02/11/25 23:40 Dextrose 50% 25 Gm/50 Ml Syringe IV PUSH 12.5 gm PRN PRN Administration Hypoglycemia Protocol Diazepam 5 mg 02/13/25 09:22 Diazepam (*Crx) 5 Mg Tablet FEED TUBE Q8H PRN Anxiety Enoxaparin Sodium 40 mg 02/07/25 09:00 02/13/25 09:27 Enoxaparin 40 Mg/0.4 Ml Syringe SUB-Q 40 mg DAILY HAIM Administration Fentanyl Citrate 25 mcg 02/13/25 09:23 Fentanyl Citrate Inj (*Crx) 100 Mcg/2 Ml Vial IV PUSH Q2H PRN Pain or discomfort on vent Glucagon 1 mg 02/01/25 07:23 Glucagon For Inj 1 Mg Vial IM PRN PRN Hypoglycemia Protocol Glucose 15 gm 02/01/25 07:23 Glucose Oral Gel 15 Gm Of Glucse In 37.5 Gm Tube PO PRN PRN Hypoglycemia Protocol Dextrose 1,000 mls @ 100 mls/hr 02/01/25 07:23 Dextrose 5% 1,000 Ml IVPB PRN PRN Hypoglycemia Protocol Propofol 100 mls @ 10.017 mls/hr 02/10/25 15:40 02/15/25 06:00 Diprivan IV CONT 45 mcg/kg/min .Q9H59M HAIM 10.02 mls/hr Titration Protocol 45 MCG/KG/MIN Piperacillin/Tazobactam/Dextrose 3.375 gm in 50 mls @ 100 mls/hr 02/15/25 08:05 Zosyn 3.375 Gm/Ns 50 Ml IVPB Q6H [facility] Insulin Aspart 3 - 6 units 02/01/25 12:00 02/15/25 06:06 Insulin Aspart (*Bkc) 100 Units/Ml SUB-Q Not Given Q6HR [facility] Protocol Ipratropium Abercrombie 0.5 mg 02/04/25 14:00 02/15/25 02:23 Ipratropium Br 0.02% Inh Soln 0.5 Mg/2.5 Ml Vial INHALATION 0.5 mg Q6HRT [facility] Administration Levalbuterol HCl 0.63 mg 02/04/25 14:00 02/15/25 02:23 Levalbuterol Neb 1.25 Mg/3 Ml INHALATION 0.63 mg Q6HRT [facility] Administration Metoprolol Tartrate 5 mg 02/04/25 04:26 02/06/25 05:47 Metoprolol Tartrate Inj 5 Mg/5 Ml Vial IV PUSH 5 mg Q6H PRN Administration HR > 130 Metoprolol Tartrate 25 mg 02/12/25 09:00 02/14/25 20:53 Metoprolol Tartrate 25 Mg Tablet PO 25 mg Q12HR [facility] Administration Midazolam HCl 4 mg 02/14/25 13:37 02/14/25 15:00 Midazolam Hcl (*Crx) 2 Mg/2 Ml Vial IV PUSH 4 mg ONCE PRN Administration For PEG insertion Multi-Ingred Cream/Lotion/Oil/Oint 1 applic 02/01/25 21:00 02/14/25 20:54 Mineral Oil/White Petrolatum Ointment EACH EYE 1 applic Q12HR [facility] Administration Ondansetron HCl 4 mg 01/31/25 16:00 Ondansetron Inj 4 Mg/2 Ml Vial IV PUSH Q4H PRN Nausea Oxycodone HCl 5 mg 02/13/25 09:00 02/15/25 04:18 Oxycodone (*Crx) 5 Mg/5 Ml Oral Soln Ir FEED TUBE 5 mg Q6H [facility] Administration Pantoprazole Sodium 40 mg 02/01/25 09:00 02/14/25 20:53 Pantoprazole Sodium Iv 40 Mg Vial IV PUSH 40 mg Q12HR HAIM Administration Polyethylene Glycol 17 gm 02/08/25 10:41 Polyethylene Glycol 3350 17 Gm Powd.Pack PO QAM PRN constipation Potassium Chloride 40 meq 02/15/25 08:05 Potassium Chloride 20 Meq Packet (For Liquid) FEED TUBE 02/15/25 08:06 ONCE STA Risperidone 1 mg 02/12/25 09:00 02/14/25 20:53 Risperidone 1 Mg Tablet FEED TUBE 1 mg Q12HR HAIM Administration Risperidone 0.5 mg 02/12/25 21:00 02/14/25 20:53 Risperidone 0.5 Mg Tablet FEED TUBE 0.5 mg HS HAIM Administration Sodium Chloride 10 ml 02/01/25 14:00 02/15/25 05:01 Central Line Flush IV PUSH 10 ml Q8HR HAIM Administration Sodium Chloride 20 ml 02/01/25 06:37 Central Line Flush IV PUSH PRN PRN after blood draws Sodium Chloride 10 ml 02/12/25 14:00 02/15/25 05:01 Central Line Flush IV PUSH 10 ml Q8HR HAIM Administration Sodium Chloride 10 ml 02/12/25 11:37 Central Line Flush IV PUSH PRN PRN with TPN bag changes Sodium Chloride 20 ml 02/12/25 11:37 Central Line Flush IV PUSH PRN PRN after blood draws Radiology Results: ITS Impressions Head CT 01/31/25 15:47 Impression: No acute intracranial hemorrhage or suspicious mass effect. Chest/Abdomen/Pelvis CTA 01/31/25 15:49 IMPRESSION: Right middle and lower lobe pneumonia with dense consolidation. Left basilar atelectasis. No pulmonary embolus. No aortic dissection. Oral contrast opacifies the entirety of the colon. Supportive lines in good position. No acute pathology within the remainder of the examination, as detailed above. Abdomen X-Ray 02/12/25 05:44 Impression: NG tube in satisfactory position. Chest X-Ray 02/15/25 06:15 Impression: Clear lungs with stable elevation of right hemidiaphragm. Support tubes, as above. Labs Labs: Laboratory Results - last 24 hr 02/14/25 02/14/25 02/14/25 08:52 11:10 17:51 WBC 6.1 RBC 3.17 L Hgb 9.5 L Hct 29.7 L MCV 93.7 MCH 30.0 MCHC 32.0 RDW 16.5 H Plt Count 350 MPV 10.2 Puncture Site ABG pH ABG pCO2 ABG pO2 ABG PO2/FiO2 Ratio ABG HCO3 ABG O2 Saturation ABG O2 Content ABG Base Excess A-a Gradient Oxyhemoglobin Carboxyhemoglobin Methemoglobin Reduced Hemoglobin Total Hemoglobin O2 Delivery Device O2 Liters/Min Minute Volume Vent Rate Vent Mode FiO2 Tidal Volume PEEP Peak Inspir Pressure Pressure Support Sodium 142 Potassium 3.9 Chloride 101 Carbon Dioxide 33 H Anion Gap 8 BUN 21 H Creatinine 0.50 L Estim Creat Clear Calc 51 Estimated GFR > 60 Glucose 104 POC Capillary Glucose 94 100 Calcium 9.4 Magnesium 2.0 Total Bilirubin 0.3 AST 39 H ALT 44 H Alkaline Phosphatase 94 Total Protein 8.0 Albumin 3.7 02/14/25 02/15/25 02/15/25 23:29 04:57 05:04 WBC 6.1 RBC 3.20 L Hgb 9.4 L Hct 30.4 L MCV 95.0 MCH 29.4 MCHC 30.9 L RDW 16.5 H Plt Count 362 MPV 10.2 Puncture Site Right brachial ABG pH 7.398 ABG pCO2 51.1 H ABG pO2 96.0 ABG PO2/FiO2 Ratio 3.20 ABG HCO3 30.8 H ABG O2 Saturation 97.2 ABG O2 Content 17.4 ABG Base Excess 4.9 A-a Gradient 57.9 Oxyhemoglobin 96.6 Carboxyhemoglobin 0.5 Methemoglobin 0.0 Reduced Hemoglobin 2.9 Total Hemoglobin 12.7 O2 Delivery Device Ventilator O2 Liters/Min Not Reportable Minute Volume Not Reportable Vent Rate 14 Vent Mode Cmv FiO2 30 Tidal Volume 300 PEEP 5 Peak Inspir Pressure Not Reportable Pressure Support Not Reportable Sodium 142 Potassium 3.7 Chloride 101 Carbon Dioxide 32 H Anion Gap 9 BUN 23 H Creatinine 0.54 L Estim Creat Clear Calc 47 Estimated GFR > 60 Glucose 127 H POC Capillary Glucose 126 H Calcium 9.5 Magnesium 2.0 Total Bilirubin 0.3 AST 54 H ALT 40 H Alkaline Phosphatase 95 Total Protein 8.0 Albumin 3.7
[2025-02-15] MEDS: MINERAL OIL/WHITE PETROLATUM OINTMENT 1 APPLIC EACH EYE ×2 (08:29→20:07)
[2025-02-15] MEDS: risperiDONE 1 MG TABLET FEED TUBE ×2 (08:29→20:07)
[2025-02-15] MEDS: POTASSIUM CHLORIDE 20 MEQ PACKET (FOR LIQUID) 40 MEQ FEED TUBE (08:29)
[2025-02-15] MEDS: ENOXAPARIN 40 MG/0.4 ML SYRINGE SUB-Q (08:29)
[2025-02-15] MEDS: METOPROLOL TARTRATE 25 MG TABLET PO ×2 (08:29→20:06)
[2025-02-15] MEDS: PANTOPRAZOLE SODIUM IV 40 MG VIAL IV PUSH ×2 (08:29→20:07)
[2025-02-15] MEDS: PIPERACILLN/TAZ 3.375GM/NS50ML 3.375 GM/50 ML BAG IVPB ×3 (08:30→20:07)
--- NOTE | 2025-02-15 10:36 | PCFNICU ---
ICU Rounding Note: Pt current nutrition is Vital AF 1.2 at 50 ml/hr with Prosource once daily. Last recorded weight is 35.8 kg, down from 38.8 kg on admit. Spoke with nursing today regarding weight. Bowel Motility: +BM reported 02/10 Labs Reviewed: Glu 127, Cr 0.54, BUN 23, Hct 30.4, Hgb 9.4 Meds Noted:Propofol 45 hbky=321 kcal, Protonix, Zosyn. Skin: WNL Additional Notes: Patient had PEG placed 02/14. Plans for Trach 02/16. Tube feeding of Vital AF 1.2 are being tolerated at 50 ml/hr with Prosource daily. Total Nutrition: 1665 kcal/103 gm protein/892 ml water. Flush 100 ml q 4 hours. Agree with diet orders. Following daily in ICU rounds. Will monitor weight, labs, skin, diet orders, meds every Wednesday and Wednesday.
[2025-02-15 11:32] LABS: Glucose Point of Care 81 mg/dl (65-105)
[2025-02-15 18:19] LABS: Glucose Point of Care 86 mg/dl (65-105)
[2025-02-15] MEDS: risperiDONE 0.5 MG TABLET FEED TUBE (20:07)
[2025-02-16] VITALS (39 sets, daily range): BP systolic 72–148; BP diastolic 48–84; PULSE 82–123; RESP 14–18; TEMP 36.6–38.2; O2SAT 93–99
[2025-02-16] MEDS: LEVALBUTEROL NEB 1.25 MG/3 ML 0.63 MG INHALATION ×4 (02:23→20:16)
[2025-02-16] MEDS: IPRATROPIUM BR 0.02% INH SOLN 0.5 MG/2.5 ML VIAL INHALATION ×4 (02:23→20:15)
[2025-02-16 02:44] LABS: Glucose Point of Care 125 mg/dl (65-105)
[2025-02-16] MEDS: oxyCODONE (*CRX) 5 MG/5 ML ORAL SOLN IR FEED TUBE ×4 (03:12→20:27)
[2025-02-16] MEDS: PIPERACILLN/TAZ 3.375GM/NS50ML 3.375 GM/50 ML BAG IVPB ×4 (03:12→20:26)
[2025-02-16] MEDS: PROPOFOL IV EMULSION 100 ML 8.9 MG IV CONT (03:14)
[2025-02-16] MEDS: CENTRAL LINE FLUSH 10 ML IV PUSH ×6 (05:18→20:27)
[2025-02-16 05:31] LABS: Hematocrit 27.3 % (37.0-47.0); Hemoglobin 8.5 g/dL (12.0-15.0); Mean Corpuscular HGB Conc 31.1 g/dl (32-36); Mean Corpuscular Hemoglobin 29.3 pg (26-34); Mean Corpuscular Volume 94.1 fl (80-100); Platelet Count Result 317 k/mm3 (150-375); Red Cell Distribution Width 16.5 % (11.5-14.5); White Blood Count 5.3 K/mm3 (4.5-10.0)
[2025-02-16 05:42] LABS: Alanine Aminotransferase 36 U/L (6-35); Albumin Level 3.3 g/dL (3.5-5.1); Alkaline Phosphatase 94 U/L (38-126); Anion Gap 5 mmol/L (4-12); Aspartate Amino Transferase 40 U/L (14-36); Bilirubin,Total 0.5 mg/dL (0.2-1.3); Blood Urea Nitrogen 33 mg/dL (7-17); Calcium 9.2 mg/dL (8.4-10.2); Carbon Dioxide 33 mmol/L (22-30); Chloride 101 mmol/L (98-107); Estimated CRCL calculation 37 ml/min; Estimated Glomerular Filt Rate > 60; Glucose 99 mg/dL (65-110); Potassium 4.2 mmol/L (3.4-5.0); Sodium 139 mmol/L (137-145)
[2025-02-16 05:55] LABS: Alveolar/Arterial O2 Gradient 64.8 mmHg; Base Excess ABG 4.7 mEq/l (+/-2.0); Carboxyhemoglobin 0.1 % THb (0-2.0); Fractional Inspired Oxygen 30 %; HCO3 ABG 29.6 mEq/l (22.0-26.0); Methemoglobin ABG 0.3 %THb (0-1.5); Oxygen Content ABG 13.5 %vol (16.0-22.0); Oxygen Saturation ABG 97.4 % (95.0-100.0); Oxyhemoglobin 96.8 % THb (90.0-100.0); PCO2 ABG 45.9 mmHg (35.0-45.0); PO2 ABG 95.2 mmHg (80.0-100.0); PO2 FiO2 Ratio Arterial Blood 3.17 %; Reduced Hemoglobin 2.8 %THb (0-5.0); Total Hemoglobin 9.8 g/dL (12.0-18.0); pH ABG 7.428 (7.350-7.450)
[2025-02-16 05:56] LABS: Device VENTILATOR; Modified Allen's Test Pass; Site Drawn RIGHT BRACHIAL
[2025-02-16 05:57] LABS: Arterial Blood Gas PEEP 5 cmH2O; Arterial Blood Gas Tidal Volume 300 ml; Arterial Blood Gas Vent Mode CMV; Arterial Blood Gas Ventilator rate 14 /MIN
--- NOTE | 2025-02-16 07:36 | WPDHPUPDATE1 ---
History and Physical Update Update Date/Time: 02/16/25 07:36 History and Physical has been reviewed, including an updated exam of the patient. There are NO changes in the patient's condition. Risks, benefits, and alternatives have been discussed and questions answered. Patient agrees to proceed with procedure. Patient is scheduled for tracheostomy indication need for prolonged intubation and ventilation dependence
--- NOTE | 2025-02-16 08:30 | WPDINTPN ---
Progress Note: A&P Assessment and Plan (1) Acute hypoxic respiratory failure: Code(s): J96.01 - Acute respiratory failure with hypoxia Status: Acute Assessment and Plan: 01/31/2025: Patient presented from [facility] with hypoxia, periods of apnea, and unresponsiveness. She was brought to the ED being bagged, she did not have a gag and was unresponsive in the ED so was intubated upon arrival to the ED. central line was also inserted as she was hypotensive CT scan showed right middle and right lower lobe consolidation. Since then patient has also received decent amount of IV fluids 02/05-accidentally got extubated during turning by the nursing staff. She was intubated 02/06 failed weaning trial. patient kept on going into apnea ventilation. Precedex rate was decreased and patient is now on ASV. 02/07 weaning trial was attempted again. Patient had high RSBI on PSV 03/19. Patient was erratically breathing agitated and had drop in sats. Breathing trial was aborted 02/08 failed weaning trial due to high RSBI 02/09 I attempted a SBT weaning trial this morning. On 03/19 patient respiratory rate was in 40s with tidal volume and 100s. I had to increase the pressure support to 12 to get adequate RSBI even then patient's breathing was at. patient is not a candidate for extubation at this point. She will not be able to use BiPAP considering cerebral palsy and inability to communicate. I will try to continue weaning but I anticipate that if patient does not get extubated then she may need trach for continued ventilatory support 02/10 patient failed weaning trial again due to respiratory rate in high 40s and tidal volumes in 100s.. She requires pressure support of 12/5 for adequate ventilatory numbers. She is not a candidate for BiPAP. I anticipate patient will likely need tracheostomy. I called his healthcare power civil litigation attorney who is on vacation at this time I will speak him on Wednesday. 02/11 Lasix again today and plan for weaning trial again today 02/12 self-extubated. Patient was given opportunity to see if she can tolerate noninvasive oxygenation support. But patient was tachypneic with use of accessory muscle and had to be reintubated. Patient also had airway edema and was given dexamethasone At this point patient has failed multiple days of trial and is quite debilitated and weak and unable to come off the ventilator. I spoke to patient's healthcare power civil litigation attorney Mateo Warren who regarding option of proceeding need tracheostomy and PEG tube placement for ongoing ventilator support. He is agreeable to proceed with both and consented. Consent was also obtained for a PICC line ENT consulted for tracheostomy and patient is scheduled for tracheostomy today -currently on CMV mode of ventilation, peep of 5 and 30 % FiO2 -ABGs and chest x-ray reviewed, ventilator adjusted by decreasing the rate -continue bronchodilators and Mucomyst nebulizer -completed course of Zosyn and azithromycin (2) Sepsis: Qualifiers: Sepsis type: sepsis due to unspecified organism Sepsis acute organ dysfunction status: unspecified Qualified Code(s): A41.9 - Sepsis, unspecified organism Code(s): A41.9 - Sepsis, unspecified organism Status: Acute Assessment and Plan: Patient presented with altered mental status, hypoxia, apnea, pneumonia. Patient initially required vasopressors but now off 4/1 low-grade fever overnight with increase tachycardia. Tachycardia could be secondary discontinuation of Precedex. WBC normal Chest x-ray shows clear lungs For limb sputum culture is negative, Arredondo catheter was, urinalysis reviewed and negative for nitrates or leukoesterase, pending blood cultures, low procalcitonin level Neg lower extremity Dopplers. Will start empiric antibiotics to cover for other etiologies like sinusitis (3) AMS (altered mental status): Qualifiers: Altered mental status type: unspecified Qualified Code(s): R41.82 - Altered mental status, unspecified Code(s): R41.82 - Altered mental status, unspecified Status: Acute Assessment and Plan: Encephalopathy could be related to hypoxia, hypercapnia, pneumonia/infection/hypotension, could be related to medication -head CT negative at the time of presentation -currently intubated -continue propofol I will discontinue Precedex -upon review of chart patient appears to be nonverbal at baseline and communicates her needs with gestures. She walks around in the hallways and is able to eat modified diet (4) Pneumonia: Qualifiers: Pneumonia type: due to unspecified organism Laterality: right Lung location: unspecified part of lung Qualified Code(s): J18.9 - Pneumonia, unspecified organism Code(s): J18.9 - Pneumonia, unspecified organism Status: Acute Assessment and Plan: Chest x-ray and CTA chest show right lower lobe consolidation -according the [facility] records: Repeat CT chest showed interval development of new airspace opacities raising concern for aspiration pneumonia. She was transition to Zosyn from cefepime. MBS performed on 01/[address] [facility] which showed no evidence of aspiration despite coughing especially with swallowing. - completed course of Zosyn, azithromycin (01/31) -MRSA screen is negative, vancomycin discontinued (02/01) (5) Cerebral palsy: Qualifiers: Cerebral palsy type: other type Qualified Code(s): G80.8 - Other cerebral palsy Code(s): G80.9 - Cerebral palsy, unspecified Status: Acute Assessment and Plan: Patient with cerebral palsy, mild intellectual disability, schizophrenia, nonverbal at baseline according the chart -patient on risperidone, will restart prior to extubation as she is currently sedated and intubated (6) Anemia: Qualifiers: Anemia type: unspecified type Qualified Code(s): D64.9 - Anemia, unspecified Code(s): D64.9 - Anemia, unspecified Status: Acute Assessment and Plan: Patient admitted with a hemoglobin of 10.3 on 01/31 -02/01: Hemoglobin dropped to 7.7, a repeat CBC was done which showed a hemoglobin of 7.3 -will check stools for occult blood, -folic acid and vitamin B12 level within normal limits -low iron levels, low TIBC, will give Venofer -LDH is normal, haptoglobin is pending -Protonix IV q.12 hours -continue to monitor (7) Electrolyte imbalance: Code(s): E87.8 - Other disorders of electrolyte and fluid balance, not elsewhere classified Status: Acute Assessment and Plan: Continue free water flush to 100 mL Replace low potassium (8) Sinus tachycardia: Code(s): R00.0 - Tachycardia, unspecified Status: Acute Assessment and Plan: 02/04: Patient developed SVT/sinus tachycardia overnight with rates in the 180-200s. Was given IV metoprolol x1 with improvement which brought her rate start to 130s. -could be multifactorial, related to sepsis, anemia, coronary artery disease -TSH normal -will continue metoprolol -currently sinus tachycardia monitor - mild elevation in troponin level with the levels have trended down -cardiology consult 02/02/2025: Echocardiogram Summary 1. Complete two-dimensional, color flow and Doppler transthoracic echocardiogram is performed. 2. Left ventricular chamber dimension is normal. 3. Left ventricular systolic function is normal, estimated at 60-65%. 4. The left ventricular diastolic function is grade I diastolic dysfunction. 5. E/e' 7 is not elevated. 6. There is mild aortic valve sclerosis. 7. There is trace tricuspid valve regurgitation. 8. Mild pulmonary hypertension, estimated pulmonary arterial systolic pressure is 41 mmHg. (9) Constipation: Qualifiers: Constipation type: unspecified constipation type Qualified Code(s): K59.00 - Constipation, unspecified Code(s): K59.00 - Constipation, unspecified Status: Acute Assessment and Plan: 02/04: KUB showed moderate fecal retention -improved with laxatives as patient is now having bowel movements. 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 I spoke to him this morning and we discussed patient's failure to wean. I discussed option of tracheostomy PEG tube and PICC line he is agreeable to proceed with all. I explained him that we may not have ENT coverage and we may have to transfer the patient very tracheostomy and he was agreeable to transfer to either [facility] or [facility] for the procedure if needed Patient is scheduled for tracheostomy in today Critical Care Time Spent: 30 minutes Due to a high probability of clinically significant, life threatening deterioration, the patient required my highest level of preparedness to intervene emergently and I personally spent this critical care time directly and personally managing the patient. This critical care time included obtaining a history; examining the patient; pulse oximetry; ordering and review of studies; arranging urgent treatment with development of a management plan; evaluation of patient's response to treatment; frequent reassessment; and discussions with other providers. It was exclusive of separately billable procedures and treating other patients and teaching time. Please see Assessment and Plan section and the rest of the note for further information on patient assessment and treatment This dictation may have been done utilizing a voice recognition system. Attempts have been made to correct errors. However, there may be uncorrected grammatical, spelling, and recognitions errors present. Subjective Date/time seen: 02/16/25 Overnight events reviewed. Afebrile this more Continues to be on mechanical ventilation Tube feeds on hold due to tracheostomy scheduled for today Continues to be sedated with propofol Other Vitals acceptable Interval history: Reason for consult: Acute respiratory failure, pneumonia, altered mental status, unresponsiveness, anemia 4/2 PEG tube insertion Review of Systems Review of Systems: ROS unobtainable: Yes unobtainable due to endotracheal tube, unobtainable due to medical condition and unobtainable due to mental status Exam Narrative: General: Petite female/malnourished, in no acute distress HEENT:? Pupils are pinpoint, sluggish, ETT in place Neck:? Supple Respiratory:? Coarse breath sounds bilaterally, rales on right base, no wheezing, adequate air entry otherwise Cardiac:? S1-S2 normal, regular rate and rhythm Abdomen:? Soft, nontender, nondistended, hypoactive bowel sounds, peg tube in place Extremities:? Trace edema, bilateral pedal pulses are palpable Neuro:? Intubated, sedated, Skin:? No skin lesions noted Psych:? Unable to assess at this time Objective Data Vital Signs Vital Signs: Vital Signs - 24 hr 02/15/25 08:35 02/15/25 09:29 02/15/25 09:29 Temperature Pulse Rate 108 H 96 96 Respiratory Rate 14 14 Blood Pressure Pulse Oximetry 93 Oxygen Delivery Mechanical Ventilation Fraction of Inspired Oxygen 30 02/15/25 10:00 02/15/25 10:00 02/15/25 10:00 Temperature 37.1 C Pulse Rate 96 99 98 Respiratory Rate 14 14 Blood Pressure 104/67 Pulse Oximetry 94 Oxygen Delivery Fraction of Inspired Oxygen 02/15/25 11:15 02/15/25 12:00 02/15/25 12:00 Temperature Pulse Rate 98 Respiratory Rate Blood Pressure Pulse Oximetry 94 Oxygen Delivery Mechanical Ventilation Mechanical Ventilation Fraction of Inspired Oxygen 30 30 30 02/15/25 12:00 02/15/25 12:00 02/15/25 12:00 Temperature 37.4 C Pulse Rate 103 H 101 H 105 H Respiratory Rate 14 14 Blood Pressure 106/73 Pulse Oximetry 94 Oxygen Delivery Fraction of Inspired Oxygen 02/15/25 14:00 02/15/25 14:00 02/15/25 14:00 Temperature 37.6 C Pulse Rate 110 H 110 H 108 H Respiratory Rate 14 16 Blood Pressure 104/66 Pulse Oximetry 93 Oxygen Delivery Fraction of Inspired Oxygen 02/15/25 14:07 02/15/25 14:13 02/15/25 14:18 Temperature Pulse Rate 110 H 109 H 109 H Respiratory Rate 14 16 Blood Pressure Pulse Oximetry 94 Oxygen Delivery Mechanical Ventilation Fraction of Inspired Oxygen 30 02/15/25 16:00 02/15/25 16:00 02/15/25 16:00 Temperature 37.7 C H Pulse Rate 111 H Respiratory Rate 14 Blood Pressure 93/61 L Pulse Oximetry 92 Oxygen Delivery Mechanical Ventilation Fraction of Inspired Oxygen 30 30 02/15/25 16:00 02/15/25 16:00 02/15/25 17:05 Temperature Pulse Rate 110 H 111 H 114 H Respiratory Rate 14 Blood Pressure Pulse Oximetry 93 Oxygen Delivery Mechanical Ventilation Fraction of Inspired Oxygen 30 02/15/25 18:00 02/15/25 18:00 02/15/25 18:00 Temperature 38.0 C H Pulse Rate 114 H 115 H 113 H Respiratory Rate 14 14 Blood Pressure 105/61 Pulse Oximetry 92 Oxygen Delivery Fraction of Inspired Oxygen 02/15/25 18:16 02/15/25 18:16 02/15/25 19:50 Temperature Pulse Rate 116 H 116 H 114 H Respiratory Rate 14 14 14 Blood Pressure Pulse Oximetry 93 Oxygen Delivery Mechanical Ventilation Fraction of Inspired Oxygen 30 02/15/25 19:59 02/15/25 20:00 02/15/25 20:00 Temperature 37.9 C H Pulse Rate 115 H 115 H Respiratory Rate 14 14 Blood Pressure 104/65 Pulse Oximetry 93 Oxygen Delivery Fraction of Inspired Oxygen 30 02/15/25 20:00 02/15/25 20:00 02/15/25 20:06 Temperature 37.9 C H Pulse Rate 115 H 115 H 116 H Respiratory Rate 22 H Blood Pressure 104/65 Pulse Oximetry 94 Oxygen Delivery Fraction of Inspired Oxygen 02/15/25 20:19 02/15/25 20:38 02/15/25 20:39 Temperature Pulse Rate 124 H 98 98 Respiratory Rate 19 14 Blood Pressure Pulse Oximetry 93 Oxygen Delivery Mechanical Ventilation Fraction of Inspired Oxygen 30 02/15/25 20:51 02/15/25 21:29 02/15/25 22:00 Temperature 37.8 C H Pulse Rate 96 101 H 99 Respiratory Rate 14 14 24 H Blood Pressure 94/62 L Pulse Oximetry 98 Oxygen Delivery Fraction of Inspired Oxygen 02/15/25 22:00 02/15/25 22:00 02/15/25 23:10 Temperature Pulse Rate 99 99 110 H Respiratory Rate 14 Blood Pressure Pulse Oximetry 96 Oxygen Delivery Mechanical Ventilation Fraction of Inspired Oxygen 30 02/15/25 23:50 02/15/25 23:52 02/16/25 00:00 Temperature 37.7 C H Pulse Rate 107 H 110 H Respiratory Rate 14 14 Blood Pressure 92/72 L Pulse Oximetry 97 97 Oxygen Delivery Mechanical Ventilation Fraction of Inspired Oxygen 30 30 02/16/25 00:00 02/16/25 00:00 02/16/25 02:00 Temperature Pulse Rate 110 H 110 H 101 H Respiratory Rate 14 Blood Pressure Pulse Oximetry Oxygen Delivery Fraction of Inspired Oxygen 02/16/25 02:00 02/16/25 02:00 02/16/25 02:23 Temperature 37.7 C H Pulse Rate 101 H 106 H 100 Respiratory Rate 14 14 14 Blood Pressure 96/64 L Pulse Oximetry 96 Oxygen Delivery Fraction of Inspired Oxygen 02/16/25 02:24 02/16/25 02:31 02/16/25 03:14 Temperature Pulse Rate 99 99 106 H Respiratory Rate 14 14 Blood Pressure Pulse Oximetry 96 Oxygen Delivery Mechanical Ventilation Fraction of Inspired Oxygen 30 02/16/25 03:14 02/16/25 03:59 02/16/25 04:00 Temperature Pulse Rate 106 H 104 H 104 H Respiratory Rate 14 14 14 Blood Pressure Pulse Oximetry 93 Oxygen Delivery Mechanical Ventilation Fraction of Inspired Oxygen 30 02/16/25 04:00 02/16/25 04:00 02/16/25 04:00 Temperature 37.4 C Pulse Rate 104 H 104 H Respiratory Rate 14 Blood Pressure 98/62 L Pulse Oximetry 94 Oxygen Delivery Fraction of Inspired Oxygen 30 02/16/25 05:19 02/16/25 05:37 02/16/25 06:00 Temperature Pulse Rate 95 108 H 97 Respiratory Rate 14 Blood Pressure Pulse Oximetry 96 Oxygen Delivery Mechanical Ventilation Fraction of Inspired Oxygen 30 02/16/25 06:00 02/16/25 08:00 02/16/25 08:17 Temperature 37.1 C 36.7 C Pulse Rate 98 90 90 Respiratory Rate 14 15 14 Blood Pressure 95/67 L 102/55 L Pulse Oximetry 97 97 Oxygen Delivery Fraction of Inspired Oxygen 02/16/25 08:23 Temperature Pulse Rate 89 Respiratory Rate Blood Pressure Pulse Oximetry 97 Oxygen Delivery Mechanical Ventilation Fraction of Inspired Oxygen 30 Intake/Output Intake/Output: Intake & Output 02/13/25 02/14/25 02/15/25 02/16/25 23:59 23:59 23:59 23:59 Intake Total 2144.4 910.2 2108.7 707.1 Output Total 1175 1100 975 200 Balance 969.4 -189.8 1133.7 507.1 Meds/Results Medications: Active Medications Generic Name Dose Route Start Last Admin Trade Name Freq PRN Reason Stop Dose Admin Acetaminophen 650 mg 02/03/25 22:36 02/12/25 16:43 Acetaminophen Elixir 325 Mg/10.15 Ml Udc PO 650 mg Q6H PRN Administration Mild Pain (1-3) or Fever Dextrose 12.5 gm 02/01/25 07:23 02/11/25 23:40 Dextrose 50% 25 Gm/50 Ml Syringe IV PUSH 12.5 gm PRN PRN Administration Hypoglycemia Protocol Diazepam 5 mg 02/13/25 09:22 Diazepam (*Crx) 5 Mg Tablet FEED TUBE Q8H PRN Anxiety Enoxaparin Sodium 40 mg 02/07/25 09:00 02/15/25 08:29 Enoxaparin 40 Mg/0.4 Ml Syringe SUB-Q 40 mg DAILY HAIM Administration Fentanyl Citrate 25 mcg 02/13/25 09:23 Fentanyl Citrate Inj (*Crx) 100 Mcg/2 Ml Vial IV PUSH Q2H PRN Pain or discomfort on vent Glucagon 1 mg 02/01/25 07:23 Glucagon For Inj 1 Mg Vial IM PRN PRN Hypoglycemia Protocol Glucose 15 gm 02/01/25 07:23 Glucose Oral Gel 15 Gm Of Glucse In 37.5 Gm Tube PO PRN PRN Hypoglycemia Protocol Dextrose 1,000 mls @ 100 mls/hr 02/01/25 07:23 Dextrose 5% 1,000 Ml IVPB PRN PRN Hypoglycemia Protocol Propofol 100 mls @ 7.791 mls/hr 02/10/25 15:40 02/16/25 05:19 Diprivan IV CONT 35 mcg/kg/min .[id number] HAIM 7.79 mls/hr Titration Protocol 35 MCG/KG/MIN Piperacillin/Tazobactam/Dextrose 3.375 gm in 50 mls @ 100 mls/hr 02/15/25 09:00 02/16/25 03:42 Zosyn 3.375 Gm/Ns 50 Ml IVPB Infused Q6H HAIM Infusion Albumin Human 250 mls @ 62.5 mls/hr 02/16/25 07:50 Albumin Human 5% IV CONT 02/16/25 11:49 .Q4H ONE Insulin Aspart 3 - 6 units 02/01/25 12:00 02/16/25 05:55 Insulin Aspart (*Bkc) 100 Units/Ml SUB-Q Not Given Q6HR [facility] Protocol Ipratropium [place] 0.5 mg 02/04/25 14:00 02/16/25 08:16 Ipratropium Br 0.02% Inh Soln 0.5 Mg/2.5 Ml Vial INHALATION 0.5 mg Q6HRT HAIM Administration Levalbuterol HCl 0.63 mg 02/04/25 14:00 02/16/25 08:16 Levalbuterol Neb 1.25 Mg/3 Ml INHALATION 0.63 mg Q6HRT HAIM Administration Metoprolol Tartrate 5 mg 02/04/25 04:26 02/06/25 05:47 Metoprolol Tartrate Inj 5 Mg/5 Ml Vial IV PUSH 5 mg Q6H PRN Administration HR > 130 Metoprolol Tartrate 25 mg 02/12/25 09:00 02/15/25 20:06 Metoprolol Tartrate 25 Mg Tablet PO 25 mg Q12HR HAIM Administration Midazolam HCl 4 mg 02/14/25 13:37 02/14/25 15:00 Midazolam Hcl (*Crx) 2 Mg/2 Ml Vial IV PUSH 4 mg ONCE PRN Administration For PEG insertion Multi-Ingred Cream/Lotion/Oil/Oint 1 applic 02/01/25 21:00 02/15/25 20:07 Mineral Oil/White Petrolatum Ointment EACH EYE 1 applic Q12HR HAIM Administration Ondansetron HCl 4 mg 01/31/25 16:00 Ondansetron Inj 4 Mg/2 Ml Vial IV PUSH Q4H PRN Nausea Oxycodone HCl 5 mg 02/13/25 09:00 02/16/25 03:12 Oxycodone (*Crx) 5 Mg/5 Ml Oral Soln Ir FEED TUBE 5 mg Q6H HAIM Administration Pantoprazole Sodium 40 mg 02/01/25 09:00 02/15/25 20:07 Pantoprazole Sodium Iv 40 Mg Vial IV PUSH 40 mg Q12HR HAIM Administration Polyethylene Glycol 17 gm 02/08/25 10:41 Polyethylene Glycol 3350 17 Gm Powd.Pack PO QAM PRN constipation Risperidone 1 mg 02/12/25 09:00 02/15/25 20:07 Risperidone 1 Mg Tablet FEED TUBE 1 mg Q12HR HAIM Administration Risperidone 0.5 mg 02/12/25 21:00 02/15/25 20:07 Risperidone 0.5 Mg Tablet FEED TUBE 0.5 mg HS HAIM Administration Sodium Chloride 10 ml 02/01/25 14:00 02/16/25 05:18 Central Line Flush IV PUSH 10 ml Q8HR HAIM Administration Sodium Chloride 20 ml 02/01/25 06:37 Central Line Flush IV PUSH PRN PRN after blood draws Sodium Chloride 10 ml 02/12/25 14:00 02/16/25 05:18 Central Line Flush IV PUSH 10 ml Q8HR HAIM Administration Sodium Chloride 10 ml 02/12/25 11:37 Central Line Flush IV PUSH PRN PRN with TPN bag changes Sodium Chloride 20 ml 02/12/25 11:37 Central Line Flush IV PUSH PRN PRN after blood draws Radiology Results: ITS Impressions Head CT 01/31/25 15:47 Impression: No acute intracranial hemorrhage or suspicious mass effect. Chest/Abdomen/Pelvis CTA 01/31/25 15:49 IMPRESSION: Right middle and lower lobe pneumonia with dense consolidation. Left basilar atelectasis. No pulmonary embolus. No aortic dissection. Oral contrast opacifies the entirety of the colon. Supportive lines in good position. No acute pathology within the remainder of the examination, as detailed above. Abdomen X-Ray 02/12/25 05:44 Impression: NG tube in satisfactory position. Venous Doppler Study 02/15/25 12:09 IMPRESSION: 1. No deep venous thrombosis in either lower limb. Chest X-Ray 02/16/25 06:22 Impression: Mild haziness right lung base. Correlate for pneumonia. Stable elevation right hemidiaphragm. Stable support tubes. Labs Labs: Laboratory Results - last 24 hr 02/15/25 02/15/25 02/15/25 11:18 18:07 23:17 WBC RBC Hgb Hct MCV MCH MCHC RDW Plt Count MPV Puncture Site ABG pH ABG pCO2 ABG pO2 ABG PO2/FiO2 Ratio ABG HCO3 ABG O2 Saturation ABG O2 Content ABG Base Excess A-a Gradient Oxyhemoglobin Carboxyhemoglobin Methemoglobin Reduced Hemoglobin Total Hemoglobin O2 Delivery Device O2 Liters/Min Minute Volume Vent Rate Vent Mode FiO2 Tidal Volume PEEP Peak Inspir Pressure Pressure Support Sodium Potassium Chloride Carbon Dioxide Anion Gap BUN Creatinine Estim Creat Clear Calc Estimated GFR Glucose POC Capillary Glucose 81 86 125 H Calcium Magnesium Total Bilirubin AST ALT Alkaline Phosphatase Total Protein Albumin 02/16/25 02/16/25 05:25 05:32 WBC 5.3 RBC 2.90 L Hgb 8.5 L Hct 27.3 L MCV 94.1 MCH 29.3 MCHC 31.1 L RDW 16.5 H Plt Count 317 MPV 10.0 Puncture Site Right brachial ABG pH 7.428 ABG pCO2 45.9 H ABG pO2 95.2 ABG PO2/FiO2 Ratio 3.17 ABG HCO3 29.6 H ABG O2 Saturation 97.4 ABG O2 Content 13.5 L ABG Base Excess 4.7 A-a Gradient 64.8 Oxyhemoglobin 96.8 Carboxyhemoglobin 0.1 Methemoglobin 0.3 Reduced Hemoglobin 2.8 Total Hemoglobin 9.8 L O2 Delivery Device Ventilator O2 Liters/Min Not Reportable Minute Volume Not Reportable Vent Rate 14 Vent Mode Cmv FiO2 30 Tidal Volume 300 PEEP 5 Peak Inspir Pressure Not Reportable Pressure Support Not Reportable Sodium 139 Potassium 4.2 Chloride 101 Carbon Dioxide 33 H Anion Gap 5 BUN 33 H D Creatinine 0.69 L Estim Creat Clear Calc 37 Estimated GFR > 60 Glucose 99 POC Capillary Glucose Calcium 9.2 Magnesium 2.0 Total Bilirubin 0.5 AST 40 H ALT 36 H Alkaline Phosphatase 94 Total Protein 7.0 Albumin 3.3 L Quality VTE Prophylaxis VTE prophylaxis: mechanical ordered and pharmacologic ordered
[2025-02-16] MEDS: PANTOPRAZOLE SODIUM IV 40 MG VIAL IV PUSH ×2 (09:10→20:27)
[2025-02-16] MEDS: METOPROLOL TARTRATE 25 MG TABLET PO ×2 (09:10→20:26)
[2025-02-16] MEDS: risperiDONE 1 MG TABLET FEED TUBE ×2 (09:10→20:26)
[2025-02-16] MEDS: MINERAL OIL/WHITE PETROLATUM OINTMENT 1 APPLIC EACH EYE ×2 (09:11→20:28)
[2025-02-16] MEDS: ALBUMIN HUMAN 5% 250 ML IV CONT (09:11)
--- NOTE | 2025-02-16 10:50 | PCNFU ---
Nutrition Follow-Up Complete: Inadequate Oral Intake as related to mechanical ventilation as evidenced by NPO. Goal: Meet estimated nutritional needs. Patient will continue current goal. Pt current nutrition is Vital AF 1.2 at 50 ml/hr with Prosource daily. Last recorded weight is 35.9 kg, stable Bowel Motility: +BM reported 02/10 Labs Reviewed:BUN 33, Cr 0.69, Hct 27.3, Hgb 8.5 Meds Noted: Propofol 35 fkvg=134 kcal, Zosyn, Protonix. Skin: WNL Additional Notes: Patient current with PEG. NPO at this time for Trach today. Tube feeding are being tolerated of Vital AF 1.2 at 50 ml/hr with Prosource daily. Total Nutrition: 1606 kcal/103 gm protein/892 ml water. Flush 100 ml q 4 hours. Plans for LTAC on discharge. Will monitor weight, labs, skin, diet orders, meds every Wednesday and Wednesday.
[2025-02-16 11:33] LABS: Glucose Point of Care 94 mg/dl (65-105)
[2025-02-16] MEDS: LIDO 1%/EPINEPHRINE 1:100,000 50 ML VIAL INFILTRATE (12:49)
--- NOTE | 2025-02-16 13:22 | W.PM.PROC2 ---
Procedure Note - Detailed Date of Procedure 02/16/25 Pre-op Diagnosis Unresponsive, hypoxia, hypotensive, pneumonia Post-op Diagnosis Same Procedure Performed Tracheostomy under general anesthesia Surgeon Aubrey De Jesus MD Anesthesia General Indications Prolonged intubation needing tracheostomy Description of Procedure The patient was previously consented by the lyndsey . They were then brought back to the OR and induced with anesthesia through the endotracheal tube. They were then transferred to the OR table. A shoulder roll was placed. Landmarks were palpated and marked. A timeout was performed. An 8-0 DCT cuffed shiley tracheostomy tube was selected and tested. The patient was prepped and draped in the usual sterile fashion for an tracheotostomy. A horizontal incision was made along the marked line 1-2 cm above the suprasternal notch. Dissection was carried down in the midline through subcutaneous tissues using a hemostat and retraction by vein retractor and then [employer] retractors. The strap muscles were identified and divided using a combination of blunt dissection through the median raphe and electrocautery. The thyroid isthmus was encounted and retracted superiorly . The trachea was encountered. A cricoid hook was placed to stabilize and elevate the trachea. The tracheostomy tube was tested on the field and showed no leak. After confirmation with anesthesia and the senior quality control technician ensuring FiO2 was acceptable an #11 blade was used to make a horizontal incision into the trachea .Marv flap was created including the third tracheal ring . Heavy scissors were used to make parallel vertical cuts laterally through the second ring. The endotracheal tube was pulled. The tracheostomy tube was placed and successfully hooked up the circuit. The airway was stabilized and verified by anesthesia. The cricoid/tracheal hook was carefully removed. The tracheotomy tube was then secured with 0 silk sutures placed at each corner of the trach tube and the underlying skin. A tracheal tie was then placed. This ended this portion of the procedure and care of the patient was returned to anesthesia who recovered him in the ICU. Estimated Blood Loss 5 (ml) Urine Output 350 Drains No Packing No Complications None Condition Stable Disposition PACU [facility] Billing Surgery - Charge Forward: Surgery Billing
--- NOTE | 2025-02-16 16:29 | P.PNIM_ITS ---
Progress Note: A&P Assessment and Plan (1) Acute hypoxic respiratory failure: Code(s): J96.01 - Acute respiratory failure with hypoxia Status: Acute Assessment and Plan: 01/31/2025: Patient presented from [facility] with hypoxia, periods of apnea, and unresponsiveness. She was brought to the ED being bagged, she did not have a gag and was unresponsive in the ED so was intubated upon arrival to the ED. central line was also inserted as she was hypotensive CT scan showed right middle and right lower lobe consolidation. Since then patient has also received decent amount of IV fluids ENT consulted for tracheostomy and patient underwent tracheostomy placement 02/16/2025 Continue CMV mode of ventilation, peep of 5 and 30 % FiO2 per glass loading equipment tender Completed course of Zosyn and azithromycin Continue bronchodilators and Mucomyst nebulizer (2) Sepsis: Qualifiers: Sepsis acute organ dysfunction status: unspecified Sepsis type: sepsis due to unspecified organism Qualified Code(s): A41.9 - Sepsis, unspecified organism Code(s): A41.9 - Sepsis, unspecified organism Status: Acute Assessment and Plan: Patient presented with altered mental status, hypoxia, apnea, pneumonia. Patient initially required vasopressors but now off empiric antibiotics to cover for other etiologies Blood culture negative (3) AMS (altered mental status): Qualifiers: Altered mental status type: unspecified Qualified Code(s): R41.82 - Altered mental status, unspecified Code(s): R41.82 - Altered mental status, unspecified Status: Acute Assessment and Plan: Encephalopathy could be related to hypoxia, hypercapnia, pneumonia/infection/hypotension, could be related to medication -head CT negative at the time of presentation Remains intubated -upon review of chart patient appears to be nonverbal at baseline and communicates her needs with gestures. She walks around in the hallways and is able to eat modified diet (4) Pneumonia: Qualifiers: Laterality: right Lung location: unspecified part of lung Pneumonia type: due to unspecified organism Qualified Code(s): J18.9 - Pneumonia, unspecified organism Code(s): J18.9 - Pneumonia, unspecified organism Status: Acute Assessment and Plan: Chest x-ray and CTA chest show right lower lobe consolidation -according the [facility] records: Repeat CT chest showed interva l development of new airspace opacities raising concern for aspiration pneumonia. She was transition to Zosyn from cefepime. MBS performed on 01/[address] [facility] which showed no evidence of aspiration despite coughing especially with swallowing. completed course of Zosyn, azithromycin (01/31) -MRSA screen is negative, vancomycin discontinued (02/01) (5) Cerebral palsy: Qualifiers: Cerebral palsy type: other type Qualified Code(s): G80.8 - Other cerebral palsy Code(s): G80.9 - Cerebral palsy, unspecified Status: Acute Assessment and Plan: Patient with cerebral palsy, mild intellectual disability, schizophrenia, nonverbal at baseline according the chart -patient on risperidone at baseline (6) Anemia: Qualifiers: Anemia type: unspecified type Qualified Code(s): D64.9 - Anemia, unspecified Code(s): D64.9 - Anemia, unspecified Status: Acute Assessment and Plan: Patient admitted with a hemoglobin of 10.3 on 01/31 -02/01: Hemoglobin dropped to 7.7, a repeat CBC was done which showed a hemoglobin of 7.3 -will check stools for occult blood, -folic acid and vitamin B12 level within normal limits -low iron levels, low TIBC, will give Venofer -LDH is normal, haptoglobin is pending -Protonix IV q.12 hours -continue to monitor (7) Electrolyte imbalance: Code(s): E87.8 - Other disorders of electrolyte and fluid balance, not elsewhere classified Status: Acute Assessment and Plan: Continue free water flush to 100 mL Replace low potassium (8) Sinus tachycardia: Code(s): R00.0 - Tachycardia, unspecified Status: Acute Assessment and Plan: 02/04: Patient developed SVT/sinus tachycardia overnight with rates in the 180- 200s. Was given IV metoprolol x1 with improvement which brought her rate start to 130s. -could be multifactorial, related to sepsis, anemia, coronary artery disease -TSH normal -will continue metoprolol -currently sinus tachycardia monitor - mild elevation in troponin level with the levels have trended down -cardiology consult 02/02/2025: Echocardiogram Summary 1. Complete two-dimensional, color flow and Doppler transthoracic echocardiogram is performed. 2. Left ventricular chamber dimension is normal. 3. Left ventricular systolic function is normal, estimated at 60-65%. 4. The left ventricular diastolic function is grade I diastolic dysfunction. 5. E/e' 7 is not elevated. 6. There is mild aortic valve sclerosis. 7. There is trace tricuspid valve regurgitation. 8. Mild pulmonary hypertension, estimated pulmonary arterial systolic pressure is 41 mmHg. (9) Constipation: Qualifiers: Constipation type: unspecified constipation type Qualified Code(s): K59.00 - Constipation, unspecified Code(s): K59.00 - Constipation, unspecified Status: Acute Assessment and Plan: 02/04: KUB showed moderate fecal retention -improved with laxatives as patient is now having bowel movements. Continue Docusate sodium and senna and MiraLax Plan DVT prophylaxis: Lovenox Stress ulcer prophylaxis: Protonix IV q.12 hours Nutrition: PEG tube placed Tolerating tube feeds, patient on stool softener and MiraLax Subjective Date/time seen: 02/16/25 16:29 Interval history: Chart reviewed. Patient underwent tracheostomy placement today. Discussed with the nursing staff. Review of Systems Review of Systems: ROS unobtainable: Yes unobtainable due to mental status Exam Narrative: General: Petite female/malnourished, in no acute distress HEENT:? Pupils are pinpoint, sluggish, tracheostomy tube in place Neck:? Supple Respiratory:? Coarse breath sounds bilaterally, rales on right base, no wheezing, adequate air entry otherwise Cardiac:? S1-S2 normal, regular rate and rhythm Abdomen:? Soft, nontender, nondistended, hypoactive bowel sounds, peg tube in place Extremities:? Trace edema, bilateral pedal pulses are palpable Neuro:? Intubated, sedated, Skin:? No skin lesions noted Psych:? Unable to assess at this time Objective Data Vital Signs Vital Signs: Vital Signs - 24 hr 02/15/25 17:05 02/15/25 18:00 02/15/25 18:00 Temperature Pulse Rate 114 H 114 H 115 H Respiratory Rate 14 Blood Pressure Pulse Oximetry 93 Oxygen Delivery Mechanical Ventilation Fraction of Inspired Oxygen 30 02/15/25 18:00 02/15/25 18:16 02/15/25 18:16 Temperature 100.4 F H Pulse Rate 113 H 116 H 116 H Respiratory Rate 14 14 14 Blood Pressure 105/61 Pulse Oximetry 92 Oxygen Delivery Fraction of Inspired Oxygen 02/15/25 19:50 02/15/25 19:59 02/15/25 20:00 Temperature 100.2 F H Pulse Rate 114 H 115 H Respiratory Rate 14 14 Blood Pressure 104/65 Pulse Oximetry 93 93 Oxygen Delivery Mechanical Ventilation Fraction of Inspired Oxygen 30 30 02/15/25 20:00 02/15/25 20:00 02/15/25 20:00 Temperature 100.2 F H Pulse Rate 115 H 115 H 115 H Respiratory Rate 14 22 H Blood Pressure 104/65 Pulse Oximetry 94 Oxygen Delivery Fraction of Inspired Oxygen 02/15/25 20:06 02/15/25 20:19 02/15/25 20:38 Temperature Pulse Rate 116 H 124 H 98 Respiratory Rate 19 14 Blood Pressure Pulse Oximetry Oxygen Delivery Fraction of Inspired Oxygen 02/15/25 20:39 02/15/25 20:51 02/15/25 21:29 Temperature Pulse Rate 98 96 101 H Respiratory Rate 14 14 Blood Pressure Pulse Oximetry 93 Oxygen Delivery Mechanical Ventilation Fraction of Inspired Oxygen 30 02/15/25 22:00 02/15/25 22:00 02/15/25 22:00 Temperature 100.1 F H Pulse Rate 99 99 99 Respiratory Rate 24 H 14 Blood Pressure 94/62 L Pulse Oximetry 98 Oxygen Delivery Fraction of Inspired Oxygen 02/15/25 23:10 02/15/25 23:50 02/15/25 23:52 Temperature Pulse Rate 110 H 107 H Respiratory Rate 14 Blood Pressure Pulse Oximetry 96 97 Oxygen Delivery Mechanical Ventilation Mechanical Ventilation Fraction of Inspired Oxygen 30 30 30 02/16/25 00:00 02/16/25 00:00 02/16/25 00:00 Temperature 100 F H Pulse Rate 110 H 110 H 110 H Respiratory Rate 14 14 Blood Pressure 92/72 L Pulse Oximetry 97 Oxygen Delivery Fraction of Inspired Oxygen 02/16/25 02:00 02/16/25 02:00 02/16/25 02:00 Temperature 100 F H Pulse Rate 101 H 101 H 106 H Respiratory Rate 14 14 Blood Pressure 96/64 L Pulse Oximetry 96 Oxygen Delivery Fraction of Inspired Oxygen 02/16/25 02:23 02/16/25 02:24 02/16/25 02:31 Temperature Pulse Rate 100 99 99 Respiratory Rate 14 14 Blood Pressure Pulse Oximetry 96 Oxygen Delivery Mechanical Ventilation Fraction of Inspired Oxygen 30 02/16/25 03:14 02/16/25 03:14 02/16/25 03:59 Temperature Pulse Rate 106 H 106 H 104 H Respiratory Rate 14 14 14 Blood Pressure Pulse Oximetry 93 Oxygen Delivery Mechanical Ventilation Fraction of Inspired Oxygen 30 02/16/25 04:00 02/16/25 04:00 02/16/25 04:00 Temperature 99.3 F Pulse Rate 104 H 104 H Respiratory Rate 14 14 Blood Pressure 98/62 L Pulse Oximetry 94 Oxygen Delivery Fraction of Inspired Oxygen 30 02/16/25 04:00 02/16/25 05:19 02/16/25 05:37 Temperature Pulse Rate 104 H 95 108 H Respiratory Rate 14 Blood Pressure Pulse Oximetry 96 Oxygen Delivery Mechanical Ventilation Fraction of Inspired Oxygen 30 02/16/25 06:00 02/16/25 06:00 02/16/25 08:00 Temperature 98.7 F 98.1 F Pulse Rate 97 98 90 Respiratory Rate 14 15 Blood Pressure 95/67 L 102/55 L Pulse Oximetry 97 97 Oxygen Delivery Fraction of Inspired Oxygen 02/16/25 08:00 02/16/25 08:00 02/16/25 08:00 Temperature Pulse Rate 97 88 Respiratory Rate 18 Blood Pressure Pulse Oximetry 97 Oxygen Delivery Mechanical Ventilation Fraction of Inspired Oxygen 30 02/16/25 08:00 02/16/25 08:17 02/16/25 08:23 Temperature Pulse Rate 90 89 Respiratory Rate 14 Blood Pressure Pulse Oximetry 97 Oxygen Delivery Mechanical Ventilation Fraction of Inspired Oxygen 30 30 02/16/25 08:33 02/16/25 09:10 02/16/25 10:00 Temperature Pulse Rate 94 111 H 87 Respiratory Rate 14 16 Blood Pressure Pulse Oximetry Oxygen Delivery Fraction of Inspired Oxygen 02/16/25 10:00 02/16/25 10:00 02/16/25 10:10 Temperature 98.1 F Pulse Rate 86 84 Respiratory Rate 14 Blood Pressure 72/48 L Pulse Oximetry 99 Oxygen Delivery Fraction of Inspired Oxygen 02/16/25 11:00 02/16/25 11:10 02/16/25 11:59 Temperature 98.2 F Pulse Rate 83 85 85 Respiratory Rate 14 14 Blood Pressure 88/67 L Pulse Oximetry 97 97 Oxygen Delivery Mechanical Ventilation Fraction of Inspired Oxygen 30 02/16/25 12:00 02/16/25 12:00 02/16/25 12:00 Temperature Pulse Rate 95 Respiratory Rate 14 Blood Pressure Pulse Oximetry 98 Oxygen Delivery Mechanical Ventilation Fraction of Inspired Oxygen 30 30 02/16/25 12:00 02/16/25 12:15 02/16/25 13:39 Temperature Pulse Rate 82 101 H Respiratory Rate 15 Blood Pressure 107/71 Pulse Oximetry Oxygen Delivery Fraction of Inspired Oxygen 02/16/25 13:44 02/16/25 13:52 02/16/25 14:00 Temperature Pulse Rate 100 100 104 H Respiratory Rate 14 Blood Pressure Pulse Oximetry 95 Oxygen Delivery Mechanical Ventilation Fraction of Inspired Oxygen 30 02/16/25 14:00 02/16/25 14:00 02/16/25 16:00 Temperature 97.8 F Pulse Rate 104 H Respiratory Rate 14 Blood Pressure 148/84 H Pulse Oximetry 95 95 Oxygen Delivery Mechanical Ventilation Fraction of Inspired Oxygen 30 30 02/16/25 16:00 02/16/25 16:00 Temperature Pulse Rate 112 H Respiratory Rate Blood Pressure Pulse Oximetry Oxygen Delivery Fraction of Inspired Oxygen 30 Intake/Output Intake/Output: Intake & Output 02/13/25 02/14/25 02/15/25 02/16/25 23:59 23:59 23:59 23:59 Intake Total 2144.4 910.2 2108.7 802.5 Output Total 1175 1100 975 750 Balance 969.4 -189.8 1133.7 52.5 Meds/Results Medications: Active Medications Generic Name Dose Route Start Last Admin Trade Name Freq PRN Reason Stop Dose Admin Acetaminophen 650 mg 02/03/25 22:36 02/12/25 16:43 Acetaminophen Elixir 325 Mg/10.15 Ml Udc PO 650 mg Q6H PRN Administration Mild Pain (1-3) or Fever Dextrose 12.5 gm 02/01/25 07:23 02/11/25 23:40 Dextrose 50% 25 Gm/50 Ml Syringe IV PUSH 12.5 gm PRN PRN Administration Hypoglycemia Protocol Diazepam 5 mg 02/13/25 09:22 Diazepam (*Crx) 5 Mg Tablet FEED TUBE Q8H PRN Anxiety Enoxaparin Sodium 40 mg 02/07/25 09:00 02/15/25 08:29 Enoxaparin 40 Mg/0.4 Ml Syringe SUB-Q 40 mg DAILY HAIM Administration Fentanyl Citrate 25 mcg 02/13/25 09:23 Fentanyl Citrate Inj (*Crx) 100 Mcg/2 Ml Vial IV PUSH Q2H PRN Pain or discomfort on vent Glucagon 1 mg 02/01/25 07:23 Glucagon For Inj 1 Mg Vial IM PRN PRN Hypoglycemia Protocol Glucose 15 gm 02/01/25 07:23 Glucose Oral Gel 15 Gm Of Glucse In 37.5 Gm Tube PO PRN PRN Hypoglycemia Protocol Dextrose 1,000 mls @ 100 mls/hr 02/01/25 07:23 Dextrose 5% 1,000 Ml IVPB PRN PRN Hypoglycemia Protocol Propofol 100 mls @ 0 mls/hr 02/10/25 15:40 02/16/25 12:00 Diprivan IV CONT 0 mcg/kg/min .Q0M HAIM 0 mls/hr Titration Protocol Piperacillin/Tazobactam/Dextrose 3.375 gm in 50 mls @ 100 mls/hr 02/15/25 09:00 02/16/25 13:59 Zosyn 3.375 Gm/Ns 50 Ml IVPB 100 mls/hr Q6H HAIM Administration Insulin Aspart 3 - 6 units 02/01/25 12:00 02/16/25 11:43 Insulin Aspart (*Bkc) 100 Units/Ml SUB-Q Not Given Q6HR HAIM Protocol Ipratropium [place] 0.5 mg 02/04/25 14:00 02/16/25 13:38 Ipratropium Br 0.02% Inh Soln 0.5 Mg/2.5 Ml Vial INHALATION 0.5 mg Q6HRT HAIM Administration Labetalol HCl 20 mg 02/16/25 13:47 Labetalol Hcl Inj 100 Mg/20 Ml Vial IV PUSH Q4H PRN SBP > 160 and HR> 60 -1st choice Levalbuterol HCl 0.63 mg 02/04/25 14:00 02/16/25 13:38 Levalbuterol Neb 1.25 Mg/3 Ml INHALATION 0.63 mg Q6HRT HAIM Administration Metoprolol Tartrate 5 mg 02/04/25 04:26 02/06/25 05:47 Metoprolol Tartrate Inj 5 Mg/5 Ml Vial IV PUSH 5 mg Q6H PRN Administration HR > 130 Metoprolol Tartrate 25 mg 02/12/25 09:00 02/16/25 09:10 Metoprolol Tartrate 25 Mg Tablet PO 25 mg Q12HR HAIM Administration Multi-Ingred Cream/Lotion/Oil/Oint 1 applic 02/01/25 21:00 02/16/25 09:11 Mineral Oil/White Petrolatum Ointment EACH EYE 1 applic Q12HR HAIM Administration Ondansetron HCl 4 mg 01/31/25 16:00 Ondansetron Inj 4 Mg/2 Ml Vial IV PUSH Q4H PRN Nausea Oxycodone HCl 5 mg 02/13/25 09:00 02/16/25 13:58 Oxycodone (*Crx) 5 Mg/5 Ml Oral Soln Ir FEED TUBE 5 mg Q6H HAIM Administration Pantoprazole Sodium 40 mg 02/01/25 09:00 02/16/25 09:10 Pantoprazole Sodium Iv 40 Mg Vial IV PUSH 40 mg Q12HR HAIM Administration Polyethylene Glycol 17 gm 02/08/25 10:41 Polyethylene Glycol 3350 17 Gm Powd.Pack PO QAM PRN constipation Risperidone 1 mg 02/12/25 09:00 02/16/25 09:10 Risperidone 1 Mg Tablet FEED TUBE 1 mg Q12HR HAIM Administration Risperidone 0.5 mg 02/12/25 21:00 02/15/25 20:07 Risperidone 0.5 Mg Tablet FEED TUBE 0.5 mg HS HAIM Administration Sodium Chloride 10 ml 02/01/25 14:00 02/16/25 13:59 Central Line Flush IV PUSH 10 ml Q8HR HAIM Administration Sodium Chloride 20 ml 02/01/25 06:37 Central Line Flush IV PUSH PRN PRN after blood draws Sodium Chloride 10 ml 02/12/25 14:00 02/16/25 13:59 Central Line Flush IV PUSH 10 ml Q8HR HAIM Administration Sodium Chloride 10 ml 02/12/25 11:37 Central Line Flush IV PUSH PRN PRN with TPN bag changes Sodium Chloride 20 ml 02/12/25 11:37 Central Line Flush IV PUSH PRN PRN after blood draws Radiology Results: ITS Impressions Head CT 01/31/25 15:47 Impression: No acute intracranial hemorrhage or suspicious mass effect. Chest/Abdomen/Pelvis CTA 01/31/25 15:49 IMPRESSION: Right middle and lower lobe pneumonia with dense consolidation. Left basilar atelectasis. No pulmonary embolus. No aortic dissection. Oral contrast opacifies the entirety of the colon. Supportive lines in good position. No acute pathology within the remainder of the examination, as detailed above. Abdomen X-Ray 02/12/25 05:44 Impression: NG tube in satisfactory position. Venous Doppler Study 02/15/25 12:09 IMPRESSION: 1. No deep venous thrombosis in either lower limb. Chest X-Ray 02/16/25 06:22 Impression: Mild haziness right lung base. Correlate for pneumonia. Stable elevation right hemidiaphragm. Stable support tubes. Labs Labs: Laboratory Results - last 24 hr 02/15/25 02/15/25 02/16/25 18:07 23:17 05:25 WBC 5.3 RBC 2.90 L Hgb 8.5 L Hct 27.3 L MCV 94.1 MCH 29.3 MCHC 31.1 L RDW 16.5 H Plt Count 317 MPV 10.0 Puncture Site ABG pH ABG pCO2 ABG pO2 ABG PO2/FiO2 Ratio ABG HCO3 ABG O2 Saturation ABG O2 Content ABG Base Excess A-a Gradient Oxyhemoglobin Carboxyhemoglobin Methemoglobin Reduced Hemoglobin Total Hemoglobin O2 Delivery Device O2 Liters/Min Minute Volume Vent Rate Vent Mode FiO2 Tidal Volume PEEP Peak Inspir Pressure Pressure Support Sodium 139 Potassium 4.2 Chloride 101 Carbon Dioxide 33 H Anion Gap 5 BUN 33 H D Creatinine 0.69 L Estim Creat Clear Calc 37 Estimated GFR > 60 Glucose 99 POC Capillary Glucose 86 125 H Calcium 9.2 Magnesium 2.0 Total Bilirubin 0.5 AST 40 H ALT 36 H Alkaline Phosphatase 94 Total Protein 7.0 Albumin 3.3 L 02/16/25 02/16/25 05:32 11:16 WBC RBC Hgb Hct MCV MCH MCHC RDW Plt Count MPV Puncture Site Right brachial ABG pH 7.428 ABG pCO2 45.9 H ABG pO2 95.2 ABG PO2/FiO2 Ratio 3.17 ABG HCO3 29.6 H ABG O2 Saturation 97.4 ABG O2 Content 13.5 L ABG Base Excess 4.7 A-a Gradient 64.8 Oxyhemoglobin 96.8 Carboxyhemoglobin 0.1 Methemoglobin 0.3 Reduced Hemoglobin 2.8 Total Hemoglobin 9.8 L O2 Delivery Device Ventilator O2 Liters/Min Not Reportable Minute Volume Not Reportable Vent Rate 14 Vent Mode Cmv FiO2 30 Tidal Volume 300 PEEP 5 Peak Inspir Pressure Not Reportable Pressure Support Not Reportable Sodium Potassium Chloride Carbon Dioxide Anion Gap BUN Creatinine Estim Creat Clear Calc Estimated GFR Glucose POC Capillary Glucose 94 Calcium Magnesium Total Bilirubin AST ALT Alkaline Phosphatase Total Protein Albumin
[2025-02-16 18:04] LABS: Glucose Point of Care 98 mg/dl (65-105)
[2025-02-16] MEDS: risperiDONE 0.5 MG TABLET FEED TUBE (20:26)
[2025-02-16] MEDS: ACETAMINOPHEN ELIXIR 325 MG/10.15 ML UDC 650 MG PO (20:27)
[2025-02-17] VITALS (32 sets, daily range): BP systolic 94–127; BP diastolic 58–84; PULSE 101–139; RESP 14–24; TEMP 37.6–38; O2SAT 92–98
[2025-02-17 00:49] LABS: Glucose Point of Care 101 mg/dl (65-105)
[2025-02-17] MEDS: METOPROLOL TARTRATE INJ 5 MG/5 ML VIAL IV PUSH (00:53)
[2025-02-17] MEDS: IPRATROPIUM BR 0.02% INH SOLN 0.5 MG/2.5 ML VIAL INHALATION ×4 (02:41→20:25)
[2025-02-17] MEDS: LEVALBUTEROL NEB 1.25 MG/3 ML 0.63 MG INHALATION ×4 (02:41→20:25)
[2025-02-17] MEDS: PIPERACILLN/TAZ 3.375GM/NS50ML 3.375 GM/50 ML BAG IVPB ×4 (03:55→20:40)
[2025-02-17] MEDS: oxyCODONE (*CRX) 5 MG/5 ML ORAL SOLN IR FEED TUBE ×4 (03:55→20:45)
[2025-02-17 05:23] LABS: Alveolar/Arterial O2 Gradient 56.2 mmHg; Base Excess ABG 1.7 mEq/l (+/-2.0); Carboxyhemoglobin 0.1 % THb (0-2.0); Fractional Inspired Oxygen 30 %; HCO3 ABG 26.3 mEq/l (22.0-26.0); Methemoglobin ABG 0.3 %THb (0-1.5); Oxygen Content ABG 13.7 %vol (16.0-22.0); Oxygen Saturation ABG 98.1 % (95.0-100.0); Oxyhemoglobin 97.8 % THb (90.0-100.0); PCO2 ABG 41.1 mmHg (35.0-45.0); PO2 ABG 109.4 mmHg (80.0-100.0); PO2 FiO2 Ratio Arterial Blood 3.65 %; Reduced Hemoglobin 1.8 %THb (0-5.0); Total Hemoglobin 9.8 g/dL (12.0-18.0); pH ABG 7.424 (7.350-7.450)
[2025-02-17 05:29] LABS: Arterial Blood Gas Ventilator rate 14 /MIN; Device VENTILATOR; Modified Allen's Test Pass; Site Drawn RIGHT RADIAL
[2025-02-17 05:30] LABS: Arterial Blood Gas PEEP 5 cmH2O; Arterial Blood Gas Tidal Volume 300 ml; Arterial Blood Gas Vent Mode CMV
[2025-02-17] MEDS: CENTRAL LINE FLUSH 10 ML IV PUSH ×6 (06:05→20:46)
[2025-02-17 06:20] LABS: Hematocrit 27.3 % (37.0-47.0); Hemoglobin 8.4 g/dL (12.0-15.0); Mean Corpuscular HGB Conc 30.8 g/dl (32-36); Mean Corpuscular Hemoglobin 29.6 pg (26-34); Mean Corpuscular Volume 96.1 fl (80-100); Mean Platelet Volume 9.6 fl (7.4-10.4); Platelet Count Result 300 k/mm3 (150-375); Red Blood Count 2.84 M/mm3 (4.2-5.4); Red Cell Distribution Width 16.3 % (11.5-14.5); White Blood Count 5.4 K/mm3 (4.5-10.0)
[2025-02-17 06:31] LABS: Alanine Aminotransferase 33 U/L (6-35); Albumin Level 3.5 g/dL (3.5-5.1); Alkaline Phosphatase 98 U/L (38-126); Anion Gap 5 mmol/L (4-12); Aspartate Amino Transferase 41 U/L (14-36); Bilirubin,Total 0.4 mg/dL (0.2-1.3); Blood Urea Nitrogen 26 mg/dL (7-17); Calcium 8.9 mg/dL (8.4-10.2); Carbon Dioxide 33 mmol/L (22-30); Chloride 106 mmol/L (98-107); Estimated CRCL calculation 45 ml/min; Estimated Glomerular Filt Rate > 60; Glucose 117 mg/dL (65-110); Potassium 3.4 mmol/L (3.4-5.0); Sodium 144 mmol/L (137-145)
--- NOTE | 2025-02-17 08:16 | P.PNINT_ITS ---
Progress Note: A&P Assessment and Plan (1) Acute hypoxic respiratory failure: Code(s): J96.01 - Acute respiratory failure with hypoxia Status: Acute Assessment and Plan: 01/31/2025: Patient presented from [facility] with hypoxia, periods of apnea, and unresponsiveness. She was brought to the ED being bagged, she did not have a gag and was unresponsive in the ED so was intubated upon arrival to the ED. central line was also inserted as she was hypotensive CT scan showed right middle and right lower lobe consolidation. Since then patient has also received decent amount of IV fluids 02/05-accidentally got extubated during turning by the nursing staff. She was intubated 02/06 failed weaning trial. patient kept on going into apnea ventilation. Precedex rate was decreased and patient is now on ASV. 02/07 weaning trial was attempted again. Patient had high RSBI on PSV 03/19. Patient was erratically breathing agitated and had drop in sats. Breathing trial was aborted 02/08 failed weaning trial due to high RSBI 02/09 I attempted a SBT weaning trial this morning. On 03/19 patient respiratory rate was in 40s with tidal volume and 100s. I had to increase the pressure support to 12 to get adequate RSBI even then patient's breathing was at. patient is not a candidate for extubation at this point. She will not be able to use BiPAP considering cerebral palsy and inability to communicate. I will try to continue weaning but I anticipate that if patient does not get extubated then she may need trach for continued ventilatory support 02/10 patient failed weaning trial again due to respiratory rate in high 40s and tidal volumes in 100s.. She requires pressure support of 12/5 for adequate ventilatory numbers. She is not a candidate for BiPAP. I anticipate patient will likely need tracheostomy. I called his healthcare power insurance defense attorney who is on vacation at this time I will speak him on Wednesday. 02/11 Lasix again today and plan for weaning trial again today 02/12 self-extubated. Patient was given opportunity to see if she can tolerate noninvasive oxygenation support. But patient was tachypneic with use of accessory muscle and had to be reintubated. Patient also had airway edema and was given dexamethasone At this point patient has failed multiple days of trial and is quite debilitated and weak and unable to come off the ventilator. I spoke to patient's healthcare power insurance defense attorney Mateo Warren who regarding option of proceeding need tracheostomy and PEG tube placement for ongoing ventilator support. He is agreeable to proceed with both and consented. Consent was also obtained for a PICC line 02/16 ENT consulted and patient underwent tracheostomy -currently on CMV mode of ventilation, peep of 5 and 30 % FiO2. Will try PSV -ABGs and chest x-ray reviewed, ventilator adjusted by decreasing the rate -continue bronchodilators and Mucomyst nebulizer -completed course of Zosyn and azithromycin (2) Sepsis: Qualifiers: Sepsis type: sepsis due to unspecified organism Sepsis acute organ dysfunction status: unspecified Qualified Code(s): A41.9 - Sepsis, unspecified organism Code(s): A41.9 - Sepsis, unspecified organism Status: Acute Assessment and Plan: Patient presented with altered mental status, hypoxia, apnea, pneumonia. Patient initially required vasopressors but now off 02/13 low-grade fever overnight with increase tachycardia. Tachycardia could be secondary discontinuation of Precedex. WBC normal Chest x-ray shows clear lungs For limb sputum culture is negative, Arredondo catheter was, urinalysis reviewed and negative for nitrates or leukoesterase, pending blood cultures, low procalcitonin level Neg lower extremity Dopplers. Continue empiric antibiotics shows to cover for other etiologies like sinusitis (3) AMS (altered mental status): Qualifiers: Altered mental status type: unspecified Qualified Code(s): R41.82 - Altered mental status, unspecified Code(s): R41.82 - Altered mental status, unspecified Status: Acute Assessment and Plan: Encephalopathy could be related to hypoxia, hypercapnia, pneumonia/infection/hypotension, could be related to medication -head CT negative at the time of presentation -currently intubated Off [facility] -upon review of chart patient appears to be nonverbal at baseline and communicates her needs with gestures. She walks around in the hallways and is able to eat modified diet (4) Pneumonia: Qualifiers: Pneumonia type: due to unspecified organism Laterality: right Lung location: unspecified part of lung Qualified Code(s): J18.9 - Pneumonia, unspecified organism Code(s): J18.9 - Pneumonia, unspecified organism Status: Acute Assessment and Plan: Chest x-ray and CTA chest show right lower lobe consolidation -according the [facility] records: Repeat CT chest showed interval development of new airspace opacities raising concern for aspiration pneumonia. She was transition to Zosyn from cefepime. MBS performed on 01/26 at [facility] which showed no evidence of aspiration despite coughing especially with swallowing. - completed course of Zosyn, azithromycin (01/31) -MRSA screen is negative, vancomycin discontinued (02/01) (5) Cerebral palsy: Qualifiers: Cerebral palsy type: other type Qualified Code(s): G80.8 - Other cerebral palsy Code(s): G80.9 - Cerebral palsy, unspecified Status: Acute Assessment and Plan: Patient with cerebral palsy, mild intellectual disability, schizophrenia, nonverbal at baseline according the chart -patient on risperidone, will restart prior to extubation as she is currently sedated and intubated (6) Anemia: Qualifiers: Anemia type: unspecified type Qualified Code(s): D64.9 - Anemia, unspecified Code(s): D64.9 - Anemia, unspecified Status: Acute Assessment and Plan: Patient admitted with a hemoglobin of 10.3 on 01/31 -02/01: Hemoglobin dropped to 7.7, a repeat CBC was done which showed a hemoglobin of 7.3 -will check stools for occult blood, -folic acid and vitamin B12 level within normal limits -low iron levels, low TIBC, will give Venofer -LDH is normal, haptoglobin is pending -Protonix IV q.12 hours -continue to monitor (7) Electrolyte imbalance: Code(s): E87.8 - Other disorders of electrolyte and fluid balance, not elsewhere classified Status: Acute Assessment and Plan: Continue free water flush to 100 mL Replace low potassium (8) Sinus tachycardia: Code(s): R00.0 - Tachycardia, unspecified Status: Acute Assessment and Plan: 02/04: Patient developed SVT/sinus tachycardia overnight with rates in the 180- 200s. Was given IV metoprolol x1 with improvement which brought her rate start to 130s. -could be multifactorial, related to sepsis, anemia, coronary artery disease -TSH normal -will continue metoprolol -currently sinus tachycardia monitor - mild elevation in troponin level with the levels have trended down -cardiology consult 02/02/2025: Echocardiogram Summary 1. Complete two-dimensional, color flow and Doppler transthoracic echocardiogram is performed. 2. Left ventricular chamber dimension is normal. 3. Left ventricular systolic function is normal, estimated at 60-65%. 4. The left ventricular diastolic function is grade I diastolic dysfunction. 5. E/e' 7 is not elevated. 6. There is mild aortic valve sclerosis. 7. There is trace tricuspid valve regurgitation. 8. Mild pulmonary hypertension, estimated pulmonary arterial systolic pressure is 41 mmHg. (9) Constipation: Qualifiers: Constipation type: unspecified constipation type Qualified Code(s): K59.00 - Constipation, unspecified Code(s): K59.00 - Constipation, unspecified Status: Acute Assessment and Plan: 02/04: KUB showed moderate fecal retention -improved with laxatives as patient is now having bowel movements. 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 I spoke to him this morning and we discussed patient's failure to wean. I discussed option of tracheostomy PEG tube and PICC line he is agreeable to proceed with all. I explained him that we may not have ENT coverage and we may have to transfer the patient very tracheostomy and he was agreeable to transfer to either [facility] or [facility] for the procedure if needed Patient now awaits placement Critical Care Time Spent: 30 minutes Due to a high probability of clinically significant, life threatening deterioration, the patient required my highest level of preparedness to intervene emergently and I personally spent this critical care time directly and personally managing the patient. This critical care time included obtaining a history; examining the patient; pulse oximetry; ordering and review of studies; arranging urgent treatment with development of a management plan; evaluation of patient's response to treatment; frequent reassessment; and discussions with other providers. It was exclusive of separately billable procedures and treating other patients and teaching time. Please see Assessment and Plan section and the rest of the note for further information on patient assessment and treatment This dictation may have been done utilizing a voice recognition system. Attempts have been made to correct errors. However, there may be uncorrected grammatical, spelling, and recognitions errors present. Subjective Date/time seen: 02/17/25 Overnight events reviewed. Low-grade fever Continues to be on mechanical ventilation 30% FiO2 Patient not on any continue sedation but did receive Valium early this morning as she was agitated as per nursing staff Other Vitals acceptable Tolerating tube feeds at goal Interval history: Reason for consult: Acute respiratory failure, pneumonia, altered mental status, unresponsiveness, anemia / PEG tube insertion 02/16 tracheostomy Review of Systems Review of Systems: ROS unobtainable: Yes unobtainable due to endotracheal tube, unobtainable due to medical condition and unobtainable due to mental status Exam Narrative: General: Petite female/malnourished, in no acute distress HEENT:? Pupils are pinpoint, sluggish, tracheostomy in place Neck:? Supple Respiratory:? Coarse breath sounds bilaterally, rales on right base, no wheezing, adequate air entry otherwise Cardiac:? S1-S2 normal, regular rate and rhythm Abdomen:? Soft, nontender, nondistended, hypoactive bowel sounds, peg tube in place Extremities:? Trace edema, bilateral pedal pulses are palpable Neuro:? Intubated, sedated, Skin:? No skin lesions noted Psych:? Unable to assess at this time Objective Data Vital Signs Vital Signs: Vital Signs - 24 hr 02/16/25 08:17 02/16/25 08:23 02/16/25 08:33 Temperature Pulse Rate 90 89 94 Respiratory Rate 14 14 Blood Pressure Pulse Oximetry 97 Oxygen Delivery Mechanical Ventilation Fraction of Inspired Oxygen 30 02/16/25 09:10 02/16/25 10:00 02/16/25 10:00 Temperature Pulse Rate 111 H 87 86 Respiratory Rate 16 14 Blood Pressure 72/48 L Pulse Oximetry 99 Oxygen Delivery Fraction of Inspired Oxygen 02/16/25 10:00 02/16/25 10:10 02/16/25 11:00 Temperature 36.7 C Pulse Rate 84 83 Respiratory Rate 14 Blood Pressure Pulse Oximetry Oxygen Delivery Fraction of Inspired Oxygen 02/16/25 11:10 02/16/25 11:59 02/16/25 12:00 Temperature 36.8 C Pulse Rate 85 85 95 Respiratory Rate 14 14 Blood Pressure 88/67 L Pulse Oximetry 97 97 Oxygen Delivery Mechanical Ventilation Fraction of Inspired Oxygen 30 02/16/25 12:00 02/16/25 12:00 02/16/25 12:00 Temperature Pulse Rate 82 Respiratory Rate Blood Pressure Pulse Oximetry 98 Oxygen Delivery Mechanical Ventilation Fraction of Inspired Oxygen 30 30 02/16/25 12:15 02/16/25 13:39 02/16/25 13:44 Temperature Pulse Rate 101 H 100 Respiratory Rate 15 Blood Pressure 107/71 Pulse Oximetry 95 Oxygen Delivery Mechanical Ventilation Fraction of Inspired Oxygen 30 02/16/25 13:52 02/16/25 14:00 02/16/25 14:00 Temperature 36.6 C Pulse Rate 100 104 H 104 H Respiratory Rate 14 14 Blood Pressure 148/84 H Pulse Oximetry 95 Oxygen Delivery Fraction of Inspired Oxygen 02/16/25 14:00 02/16/25 16:00 02/16/25 16:00 Temperature Pulse Rate 112 H Respiratory Rate Blood Pressure Pulse Oximetry 95 Oxygen Delivery Mechanical Ventilation Fraction of Inspired Oxygen 30 30 02/16/25 16:00 02/16/25 16:00 02/16/25 18:00 Temperature 37.5 C 37.9 C H Pulse Rate 112 H 112 H Respiratory Rate 14 14 Blood Pressure 109/69 125/75 Pulse Oximetry 94 94 Oxygen Delivery Fraction of Inspired Oxygen 30 02/16/25 18:00 02/16/25 18:05 02/16/25 20:00 Temperature Pulse Rate 114 H 114 H Respiratory Rate Blood Pressure Pulse Oximetry 94 Oxygen Delivery Mechanical Ventilation Fraction of Inspired Oxygen 30 30 02/16/25 20:00 02/16/25 20:00 02/16/25 20:00 Temperature 38.2 C H Pulse Rate 116 H 118 H Respiratory Rate 14 Blood Pressure 113/77 Pulse Oximetry 94 94 Oxygen Delivery Mechanical Ventilation Fraction of Inspired Oxygen 30 02/16/25 20:26 02/16/25 20:27 02/16/25 20:30 Temperature 38.2 C H Pulse Rate 119 H 120 H Respiratory Rate 14 Blood Pressure Pulse Oximetry Oxygen Delivery Fraction of Inspired Oxygen 02/16/25 20:32 02/16/25 20:45 02/16/25 21:27 Temperature 38.2 C H Pulse Rate 120 H 123 H Respiratory Rate 14 Blood Pressure Pulse Oximetry 93 Oxygen Delivery Mechanical Ventilation Fraction of Inspired Oxygen 30 02/16/25 22:00 02/16/25 22:00 02/16/25 23:20 Temperature 38.1 C H Pulse Rate 102 H 102 H 107 H Respiratory Rate 14 Blood Pressure 116/68 Pulse Oximetry 94 94 Oxygen Delivery Mechanical Ventilation Fraction of Inspired Oxygen 30 02/17/25 00:00 02/17/25 00:00 02/17/25 00:00 Temperature 37.9 C H Pulse Rate 106 H Respiratory Rate 15 Blood Pressure 117/73 Pulse Oximetry 95 93 Oxygen Delivery Mechanical Ventilation Fraction of Inspired Oxygen 30 30 02/17/25 00:00 02/17/25 00:53 02/17/25 02:00 Temperature Pulse Rate 108 H 139 H 126 H Respiratory Rate Blood Pressure Pulse Oximetry Oxygen Delivery Fraction of Inspired Oxygen 02/17/25 02:00 02/17/25 02:40 02/17/25 02:43 Temperature 37.8 C H Pulse Rate 126 H 121 H 121 H Respiratory Rate 18 18 Blood Pressure 112/69 Pulse Oximetry 95 92 Oxygen Delivery Mechanical Ventilation Fraction of Inspired Oxygen 30 02/17/25 03:00 02/17/25 04:00 02/17/25 04:00 Temperature Pulse Rate 118 H Respiratory Rate 18 Blood Pressure Pulse Oximetry 97 Oxygen Delivery Mechanical Ventilation Fraction of Inspired Oxygen 30 30 02/17/25 04:00 02/17/25 04:00 02/17/25 04:59 Temperature 37.7 C H Pulse Rate 118 H 116 H 119 H Respiratory Rate 19 Blood Pressure 110/63 Pulse Oximetry 97 96 Oxygen Delivery Mechanical Ventilation Fraction of Inspired Oxygen 30 02/17/25 06:00 02/17/25 06:00 02/17/25 07:00 Temperature 37.6 C H Pulse Rate 117 H 117 H 112 H Respiratory Rate 16 14 Blood Pressure 116/71 Pulse Oximetry 95 Oxygen Delivery Fraction of Inspired Oxygen Intake/Output Intake/Output: Intake & Output 02/14/25 02/15/25 02/16/25 02/17/25 23:59 23:59 23:59 23:59 Intake Total 910.2 2108.7 1385.5 1011 Output Total 9071 909 9535 725 Balance -189.8 1133.7 285.5 286 Meds/Results Medications: Active Medications Generic Name Dose Route Start Last Admin Trade Name Freq PRN Reason Stop Dose Admin Acetaminophen 650 mg 02/03/25 22:36 02/16/25 20:27 Acetaminophen Elixir 325 Mg/10.15 Ml Udc PO 650 mg Q6H PRN Administration Mild Pain (1-3) or Fever Dextrose 12.5 gm 02/01/25 07:23 02/11/25 23:40 Dextrose 50% 25 Gm/50 Ml Syringe IV PUSH 12.5 gm PRN PRN Administration Hypoglycemia Protocol Diazepam 5 mg 02/13/25 09:22 Diazepam (*Crx) 5 Mg Tablet FEED TUBE Q8H PRN Anxiety Enoxaparin Sodium 40 mg 02/07/25 09:00 02/15/25 08:29 Enoxaparin 40 Mg/0.4 Ml Syringe SUB-Q 40 mg DAILY HAIM Administration Fentanyl Citrate 25 mcg 02/13/25 09:23 Fentanyl Citrate Inj (*Crx) 100 Mcg/2 Ml Vial IV PUSH Q2H PRN Pain or discomfort on vent Glucagon 1 mg 02/01/25 07:23 Glucagon For Inj 1 Mg Vial IM PRN PRN Hypoglycemia Protocol Glucose 15 gm 02/01/25 07:23 Glucose Oral Gel 15 Gm Of Glucse In 37.5 Gm Tube PO PRN PRN Hypoglycemia Protocol Dextrose 1,000 mls @ 100 mls/hr 02/01/25 07:23 Dextrose 5% 1,000 Ml IVPB PRN PRN Hypoglycemia Protocol Piperacillin/Tazobactam/Dextrose 3.375 gm in 50 mls @ 100 mls/hr 02/15/25 09:00 02/17/25 04:25 Zosyn 3.375 Gm/Ns 50 Ml IVPB 02/22/25 08:59 Infused Q6H HAIM Infusion Insulin Aspart 3 - 6 units 02/01/25 12:00 02/17/25 06:46 Insulin Aspart (*Bkc) 100 Units/Ml SUB-Q Not Given Q6HR [facility] Protocol Ipratropium [place] 0.5 mg 02/04/25 14:00 02/17/25 02:41 Ipratropium Br 0.02% Inh Soln 0.5 Mg/2.5 Ml Vial INHALATION 0.5 mg Q6HRT HAIM Administration Labetalol HCl 20 mg 02/16/25 13:47 Labetalol Hcl Inj 100 Mg/20 Ml Vial IV PUSH Q4H PRN SBP > 160 and HR> 60 -1st choice Levalbuterol HCl 0.63 mg 02/04/25 14:00 02/17/25 02:41 Levalbuterol Neb 1.25 Mg/3 Ml INHALATION 0.63 mg Q6HRT HAIM Administration Lorazepam 2 mg 02/17/25 08:10 Lorazepam Inj (*Crx) 2 Mg/Ml Vial IV PUSH Q4H PRN Agitation on Vent Metoprolol Tartrate 5 mg 02/04/25 04:26 02/17/25 00:53 Metoprolol Tartrate Inj 5 Mg/5 Ml Vial IV PUSH 5 mg Q6H PRN Administration HR > 130 Metoprolol Tartrate 25 mg 02/12/25 09:00 02/16/25 20:26 Metoprolol Tartrate 25 Mg Tablet PO 25 mg Q12HR HAIM Administration Multi-Ingred Cream/Lotion/Oil/Oint 1 applic 02/01/25 21:00 02/16/25 20:28 Mineral Oil/White Petrolatum Ointment EACH EYE 1 applic Q12HR HAIM Administration Ondansetron HCl 4 mg 01/31/25 16:00 Ondansetron Inj 4 Mg/2 Ml Vial IV PUSH Q4H PRN Nausea Oxycodone HCl 5 mg 02/13/25 09:00 02/17/25 03:55 Oxycodone (*Crx) 5 Mg/5 Ml Oral Soln Ir FEED TUBE 5 mg Q6H HAIM Administration Pantoprazole Sodium 40 mg 02/01/25 09:00 02/16/25 20:27 Pantoprazole Sodium Iv 40 Mg Vial IV PUSH 40 mg Q12HR HAIM Administration Polyethylene Glycol 17 gm 02/08/25 10:41 Polyethylene Glycol 3350 17 Gm Powd.Pack PO QAM PRN constipation Risperidone 1 mg 02/12/25 09:00 02/16/25 20:26 Risperidone 1 Mg Tablet FEED TUBE 1 mg Q12HR HAIM Administration Risperidone 0.5 mg 02/12/25 21:00 02/16/25 20:26 Risperidone 0.5 Mg Tablet FEED TUBE 0.5 mg HS HAIM Administration Sodium Chloride 10 ml 02/01/25 14:00 02/17/25 06:05 Central Line Flush IV PUSH 10 ml Q8HR HAIM Administration Sodium Chloride 20 ml 02/01/25 06:37 Central Line Flush IV PUSH PRN PRN after blood draws Sodium Chloride 10 ml 02/12/25 14:00 02/17/25 06:05 Central Line Flush IV PUSH 10 ml Q8HR HAIM Administration Sodium Chloride 10 ml 02/12/25 11:37 Central Line Flush IV PUSH PRN PRN with TPN bag changes Sodium Chloride 20 ml 02/12/25 11:37 Central Line Flush IV PUSH PRN PRN after blood draws Radiology Results: ITS Impressions Head CT 01/31/25 15:47 Impression: No acute intracranial hemorrhage or suspicious mass effect. Chest/Abdomen/Pelvis CTA 01/31/25 15:49 IMPRESSION: Right middle and lower lobe pneumonia with dense consolidation. Left basilar atelectasis. No pulmonary embolus. No aortic dissection. Oral contrast opacifies the entirety of the colon. Supportive lines in good position. No acute pathology within the remainder of the examination, as detailed above. Abdomen X-Ray 02/12/25 05:44 Impression: NG tube in satisfactory position. Venous Doppler Study 02/15/25 12:09 IMPRESSION: 1. No deep venous thrombosis in either lower limb. Chest X-Ray 02/17/25 06:48 IMPRESSION: 1. Unchanged elevation of the right hemidiaphragm with some improvement in opacities in the right lower lobe which could represent atelectasis or pneumonia. Labs Labs: Laboratory Results - last 24 hr 02/16/25 02/16/25 02/17/25 11:16 18:01 00:27 WBC RBC Hgb Hct MCV MCH MCHC RDW Plt Count MPV Puncture Site ABG pH ABG pCO2 ABG pO2 ABG PO2/FiO2 Ratio ABG HCO3 ABG O2 Saturation ABG O2 Content ABG Base Excess A-a Gradient Oxyhemoglobin Carboxyhemoglobin Methemoglobin Reduced Hemoglobin Total Hemoglobin O2 Delivery Device O2 Liters/Min Minute Volume Vent Rate Vent Mode FiO2 Tidal Volume PEEP Peak Inspir Pressure Pressure Support Sodium Potassium Chloride Carbon Dioxide Anion Gap BUN Creatinine Estim Creat Clear Calc Estimated GFR Glucose POC Capillary Glucose 94 98 101 Calcium Magnesium Total Bilirubin AST ALT Alkaline Phosphatase Total Protein Albumin 02/17/25 02/17/25 05:04 06:10 WBC 5.4 RBC 2.84 L Hgb 8.4 L Hct 27.3 L MCV 96.1 MCH 29.6 MCHC 30.8 L RDW 16.3 H Plt Count 300 MPV 9.6 Puncture Site Right radial ABG pH 7.424 ABG pCO2 41.1 ABG pO2 109.4 H ABG PO2/FiO2 Ratio 3.65 ABG HCO3 26.3 H ABG O2 Saturation 98.1 ABG O2 Content 13.7 L ABG Base Excess 1.7 A-a Gradient 56.2 Oxyhemoglobin 97.8 Carboxyhemoglobin 0.1 Methemoglobin 0.3 Reduced Hemoglobin 1.8 Total Hemoglobin 9.8 L O2 Delivery Device Ventilator O2 Liters/Min Not Reportable Minute Volume Not Reportable Vent Rate 14 Vent Mode Cmv FiO2 30 Tidal Volume 300 PEEP 5 Peak Inspir Pressure Not Reportable Pressure Support Not Reportable Sodium 144 Potassium 3.4 Chloride 106 Carbon Dioxide 33 H Anion Gap 5 BUN 26 H Creatinine 0.56 L Estim Creat Clear Calc 45 Estimated GFR > 60 Glucose 117 H POC Capillary Glucose Calcium 8.9 Magnesium 2.0 Total Bilirubin 0.4 AST 41 H ALT 33 Alkaline Phosphatase 98 Total Protein 7.0 Albumin 3.5 Quality VTE Prophylaxis VTE prophylaxis: mechanical ordered and pharmacologic ordered
[2025-02-17] MEDS: PANTOPRAZOLE SODIUM IV 40 MG VIAL IV PUSH ×2 (09:23→20:41)
[2025-02-17] MEDS: risperiDONE 1 MG TABLET FEED TUBE ×2 (09:23→20:45)
[2025-02-17] MEDS: MINERAL OIL/WHITE PETROLATUM OINTMENT 1 APPLIC EACH EYE ×2 (09:24→20:46)
[2025-02-17] MEDS: POTASSIUM CHLORIDE 20 MEQ PACKET (FOR LIQUID) 40 MEQ FEED TUBE (09:24)
[2025-02-17] MEDS: METOPROLOL TARTRATE 25 MG TABLET PO ×2 (09:24→20:45)
[2025-02-17 11:28] LABS: Glucose Point of Care 121 mg/dl (65-105)
--- NOTE | 2025-02-17 14:41 | P.PNIM_ITS ---
Progress Note: A&P Assessment and Plan (1) Acute hypoxic respiratory failure: Code(s): J96.01 - Acute respiratory failure with hypoxia Status: Acute Assessment and Plan: 01/31/2025: Patient presented from [facility] with hypoxia, periods of apnea, and unresponsiveness. She was brought to the ED being bagged, she did not have a gag and was unresponsive in the ED so was intubated upon arrival to the ED. central line was also inserted as she was hypotensive CT scan showed right middle and right lower lobe consolidation. Since then patient has also received decent amount of IV fluids ENT consulted for tracheostomy and patient underwent tracheostomy placement 02/16/2025 Continue CMV mode of ventilation, peep of 5 and 30 % FiO2 per medical sales representative Completed course of Zosyn and azithromycin Continue bronchodilators and Mucomyst nebulizer (2) Sepsis: Qualifiers: Sepsis type: sepsis due to unspecified organism Sepsis acute organ dysfunction status: unspecified Qualified Code(s): A41.9 - Sepsis, unspecified organism Code(s): A41.9 - Sepsis, unspecified organism Status: Acute Assessment and Plan: Patient presented with altered mental status, hypoxia, apnea, pneumonia. Patient initially required vasopressors but now off empiric antibiotics to cover for other etiologies Blood culture negative (3) AMS (altered mental status): Qualifiers: Altered mental status type: unspecified Qualified Code(s): R41.82 - Altered mental status, unspecified Code(s): R41.82 - Altered mental status, unspecified Status: Acute Assessment and Plan: Encephalopathy could be related to hypoxia, hypercapnia, pneumonia/infection/hypotension, could be related to medication -head CT negative at the time of presentation Remains intubated -upon review of chart patient appears to be nonverbal at baseline and communicates her needs with gestures. She walks around in the hallways and is able to eat modified diet (4) Pneumonia: Qualifiers: Pneumonia type: due to unspecified organism Laterality: right Lung location: unspecified part of lung Qualified Code(s): J18.9 - Pneumonia, unspecified organism Code(s): J18.9 - Pneumonia, unspecified organism Status: Acute Assessment and Plan: Chest x-ray and CTA chest show right lower lobe consolidation -according the [facility] records: Repeat CT chest showed interva l development of new airspace opacities raising concern for aspiration pneumonia. She was transition to Zosyn from cefepime. MBS performed on 01/26 at [facility] which showed no evidence of aspiration despite coughing especially with swallowing. completed course of Zosyn, azithromycin (01/31) -MRSA screen is negative, vancomycin discontinued (02/01) (5) Cerebral palsy: Qualifiers: Cerebral palsy type: other type Qualified Code(s): G80.8 - Other cerebral palsy Code(s): G80.9 - Cerebral palsy, unspecified Status: Acute Assessment and Plan: Patient with cerebral palsy, mild intellectual disability, schizophrenia, nonverbal at baseline according the chart -patient on risperidone at baseline (6) Anemia: Qualifiers: Anemia type: unspecified type Qualified Code(s): D64.9 - Anemia, unspecified Code(s): D64.9 - Anemia, unspecified Status: Acute Assessment and Plan: Patient admitted with a hemoglobin of 10.3 on 01/31 -02/01: Hemoglobin dropped to 7.7, a repeat CBC was done which showed a hemoglobin of 7.3 -will check stools for occult blood, -folic acid and vitamin B12 level within normal limits -low iron levels, low TIBC, will give Venofer -LDH is normal, haptoglobin is pending -Protonix IV q.12 hours -continue to monitor (7) Electrolyte imbalance: Code(s): E87.8 - Other disorders of electrolyte and fluid balance, not elsewhere classified Status: Acute Assessment and Plan: Continue free water flush to 100 mL Replace low potassium (8) Sinus tachycardia: Code(s): R00.0 - Tachycardia, unspecified Status: Acute Assessment and Plan: 02/04: Patient developed SVT/sinus tachycardia overnight with rates in the 180- 200s. Was given IV metoprolol x1 with improvement which brought her rate start to 130s. -could be multifactorial, related to sepsis, anemia, coronary artery disease -TSH normal -will continue metoprolol -currently sinus tachycardia monitor - mild elevation in troponin level with the levels have trended down -cardiology consult 02/02/2025: Echocardiogram Summary 1. Complete two-dimensional, color flow and Doppler transthoracic echocardiogram is performed. 2. Left ventricular chamber dimension is normal. 3. Left ventricular systolic function is normal, estimated at 60-65%. 4. The left ventricular diastolic function is grade I diastolic dysfunction. 5. E/e' 7 is not elevated. 6. There is mild aortic valve sclerosis. 7. There is trace tricuspid valve regurgitation. 8. Mild pulmonary hypertension, estimated pulmonary arterial systolic pressure is 41 mmHg. (9) Constipation: Qualifiers: Constipation type: unspecified constipation type Qualified Code(s): K59.00 - Constipation, unspecified Code(s): K59.00 - Constipation, unspecified Status: Acute Assessment and Plan: 02/04: KUB showed moderate fecal retention -improved with laxatives as patient is now having bowel movements. Continue Docusate sodium and senna and MiraLax Plan DVT prophylaxis: Lovenox Stress ulcer prophylaxis: Protonix IV q.12 hours Nutrition: PEG tube placed Tolerating tube feeds, patient on stool softener and MiraLax Subjective Date/time seen: 02/17/25 14:41 Interval history: No overnight events. Remains intermittently febrile mild. Remains on vent. Review of Systems Review of Systems: ROS unobtainable: Yes unobtainable due to mental status Exam Narrative: General: Petite female/malnourished, in no acute distress HEENT:? Pupils are pinpoint, sluggish, tracheostomy in place Neck:? Supple Respiratory:? Coarse breath sounds bilaterally, rales on right base, no wheezing, adequate air entry otherwise Cardiac:? S1-S2 normal, regular rate and rhythm Abdomen:? Soft, nontender, nondistended, hypoactive bowel sounds, peg tube in place Extremities:? Trace edema, bilateral pedal pulses are palpable Neuro:? Intubated, sedated, Skin:? No skin lesions noted Psych:? Unable to assess at this time Objective Data Vital Signs Vital Signs: Vital Signs - 24 hr 02/16/25 16:00 02/16/25 16:00 02/16/25 16:00 Temperature Pulse Rate 112 H Respiratory Rate Blood Pressure Pulse Oximetry 95 Oxygen Delivery Mechanical Ventilation Fraction of Inspired Oxygen 30 30 02/16/25 16:00 02/16/25 18:00 02/16/25 18:00 Temperature 99.5 F 100.2 F H Pulse Rate 112 H 112 H 114 H Respiratory Rate 14 14 Blood Pressure 109/69 125/75 Pulse Oximetry 94 94 Oxygen Delivery Fraction of Inspired Oxygen 02/16/25 18:05 02/16/25 20:00 02/16/25 20:00 Temperature 100.7 F H Pulse Rate 114 H 116 H Respiratory Rate 14 Blood Pressure 113/77 Pulse Oximetry 94 94 Oxygen Delivery Mechanical Ventilation Fraction of Inspired Oxygen 30 30 02/16/25 20:00 02/16/25 20:00 02/16/25 20:26 Temperature Pulse Rate 118 H 119 H Respiratory Rate Blood Pressure Pulse Oximetry 94 Oxygen Delivery Mechanical Ventilation Fraction of Inspired Oxygen 30 02/16/25 20:27 02/16/25 20:30 02/16/25 20:32 Temperature 100.8 F H Pulse Rate 120 H 120 H Respiratory Rate 14 Blood Pressure Pulse Oximetry 93 Oxygen Delivery Mechanical Ventilation Fraction of Inspired Oxygen 30 02/16/25 20:45 02/16/25 21:27 02/16/25 22:00 Temperature 100.7 F H Pulse Rate 123 H 102 H Respiratory Rate 14 Blood Pressure Pulse Oximetry Oxygen Delivery Fraction of Inspired Oxygen 02/16/25 22:00 02/16/25 23:20 02/17/25 00:00 Temperature 100.5 F H Pulse Rate 102 H 107 H Respiratory Rate 14 Blood Pressure 116/68 Pulse Oximetry 94 94 Oxygen Delivery Mechanical Ventilation Fraction of Inspired Oxygen 30 30 02/17/25 00:00 02/17/25 00:00 02/17/25 00:00 Temperature 100.3 F H Pulse Rate 106 H 108 H Respiratory Rate 15 Blood Pressure 117/73 Pulse Oximetry 95 93 Oxygen Delivery Mechanical Ventilation Fraction of Inspired Oxygen 30 02/17/25 00:53 02/17/25 02:00 02/17/25 02:00 Temperature 100.0 F H Pulse Rate 139 H 126 H 126 H Respiratory Rate 18 Blood Pressure 112/69 Pulse Oximetry 95 Oxygen Delivery Fraction of Inspired Oxygen 02/17/25 02:40 02/17/25 02:43 02/17/25 03:00 Temperature Pulse Rate 121 H 121 H 118 H Respiratory Rate 18 18 Blood Pressure Pulse Oximetry 92 Oxygen Delivery Mechanical Ventilation Fraction of Inspired Oxygen 30 02/17/25 04:00 02/17/25 04:00 02/17/25 04:00 Temperature 99.9 F H Pulse Rate 118 H Respiratory Rate 19 Blood Pressure 110/63 Pulse Oximetry 97 97 Oxygen Delivery Mechanical Ventilation Fraction of Inspired Oxygen 30 30 02/17/25 04:00 02/17/25 04:59 02/17/25 06:00 Temperature 99.7 F H Pulse Rate 116 H 119 H 117 H Respiratory Rate 16 Blood Pressure 116/71 Pulse Oximetry 96 95 Oxygen Delivery Mechanical Ventilation Fraction of Inspired Oxygen 30 02/17/25 06:00 02/17/25 07:00 02/17/25 08:00 Temperature Pulse Rate 117 H 112 H Respiratory Rate 14 Blood Pressure Pulse Oximetry 97 Oxygen Delivery Mechanical Ventilation Fraction of Inspired Oxygen 30 02/17/25 08:00 02/17/25 08:00 02/17/25 08:00 Temperature 99.7 F H Pulse Rate 111 H 111 H Respiratory Rate 14 Blood Pressure 94/58 L Pulse Oximetry 95 Oxygen Delivery Fraction of Inspired Oxygen 30 02/17/25 08:31 02/17/25 08:32 02/17/25 08:45 Temperature Pulse Rate 111 H 111 H 110 H Respiratory Rate 14 14 Blood Pressure Pulse Oximetry 96 Oxygen Delivery Mechanical Ventilation Fraction of Inspired Oxygen 30 02/17/25 09:24 02/17/25 10:00 02/17/25 10:00 Temperature 99.9 F H Pulse Rate 119 H 110 H 110 H Respiratory Rate 14 Blood Pressure 113/78 Pulse Oximetry 98 Oxygen Delivery Fraction of Inspired Oxygen 02/17/25 11:26 02/17/25 12:00 02/17/25 12:00 Temperature Pulse Rate 107 H Respiratory Rate Blood Pressure Pulse Oximetry 98 98 Oxygen Delivery Mechanical Ventilation Mechanical Ventilation Fraction of Inspired Oxygen 30 30 30 02/17/25 12:00 02/17/25 12:00 02/17/25 14:00 Temperature 100.1 F H Pulse Rate 107 H 109 H 113 H Respiratory Rate 16 Blood Pressure 115/70 Pulse Oximetry 98 Oxygen Delivery Fraction of Inspired Oxygen 02/17/25 14:00 02/17/25 14:09 02/17/25 14:10 Temperature 100.1 F H Pulse Rate 114 H 112 H 111 H Respiratory Rate 19 17 Blood Pressure 121/78 Pulse Oximetry 98 97 Oxygen Delivery Mechanical Ventilation Fraction of Inspired Oxygen 30 Intake/Output Intake/Output: Intake & Output 02/14/25 02/15/25 02/16/25 02/17/25 23:59 23:59 23:59 23:59 Intake Total 910.2 2108.7 1385.5 1061 Output Total 3095 621 9749 725 Balance -189.8 1133.7 285.5 336 Meds/Results Medications: Active Medications Generic Name Dose Route Start Last Admin Trade Name Freq PRN Reason Stop Dose Admin Acetaminophen 650 mg 02/03/25 22:36 02/16/25 20:27 Acetaminophen Elixir 325 Mg/10.15 Ml Udc PO 650 mg Q6H PRN Administration Mild Pain (1-3) or Fever Dextrose 12.5 gm 02/01/25 07:23 02/11/25 23:40 Dextrose 50% 25 Gm/50 Ml Syringe IV PUSH 12.5 gm PRN PRN Administration Hypoglycemia Protocol Diazepam 5 mg 02/13/25 09:22 Diazepam (*Crx) 5 Mg Tablet FEED TUBE Q8H PRN Anxiety Enoxaparin Sodium 40 mg 02/07/25 09:00 02/15/25 08:29 Enoxaparin 40 Mg/0.4 Ml Syringe SUB-Q 40 mg DAILY HAIM Administration Fentanyl Citrate 25 mcg 02/13/25 09:23 Fentanyl Citrate Inj (*Crx) 100 Mcg/2 Ml Vial IV PUSH Q2H PRN Pain or discomfort on vent Glucagon 1 mg 02/01/25 07:23 Glucagon For Inj 1 Mg Vial IM PRN PRN Hypoglycemia Protocol Glucose 15 gm 02/01/25 07:23 Glucose Oral Gel 15 Gm Of Glucse In 37.5 Gm Tube PO PRN PRN Hypoglycemia Protocol Dextrose 1,000 mls @ 100 mls/hr 02/01/25 07:23 Dextrose 5% 1,000 Ml IVPB PRN PRN Hypoglycemia Protocol Piperacillin/Tazobactam/Dextrose 3.375 gm in 50 mls @ 100 mls/hr 02/15/25 09:00 02/17/25 09:53 Zosyn 3.375 Gm/Ns 50 Ml IVPB 02/22/25 08:59 Infused Q6H HAIM Infusion Insulin Aspart 3 - 6 units 02/01/25 12:00 02/17/25 11:33 Insulin Aspart (*Bkc) 100 Units/Ml SUB-Q Not Given Q6HR HAIM Protocol Ipratropium Leslie 0.5 mg 02/04/25 14:00 02/17/25 14:07 Ipratropium Br 0.02% Inh Soln 0.5 Mg/2.5 Ml Vial INHALATION 0.5 mg Q6HRT HAIM Administration Labetalol HCl 20 mg 02/16/25 13:47 Labetalol Hcl Inj 100 Mg/20 Ml Vial IV PUSH Q4H PRN SBP > 160 and HR> 60 -1st choice Levalbuterol HCl 0.63 mg 02/04/25 14:00 02/17/25 14:07 Levalbuterol Neb 1.25 Mg/3 Ml INHALATION 0.63 mg Q6HRT HAIM Administration Lorazepam 2 mg 02/17/25 08:10 Lorazepam Inj (*Crx) 2 Mg/Ml Vial IV PUSH Q4H PRN Agitation on Vent Metoprolol Tartrate 5 mg 02/04/25 04:26 02/17/25 00:53 Metoprolol Tartrate Inj 5 Mg/5 Ml Vial IV PUSH 5 mg Q6H PRN Administration HR > 130 Metoprolol Tartrate 25 mg 02/12/25 09:00 02/17/25 09:24 Metoprolol Tartrate 25 Mg Tablet PO 25 mg Q12HR HAIM Administration Multi-Ingred Cream/Lotion/Oil/Oint 1 applic 02/01/25 21:00 02/17/25 09:24 Mineral Oil/White Petrolatum Ointment EACH EYE 1 applic Q12HR HAIM Administration Ondansetron HCl 4 mg 01/31/25 16:00 Ondansetron Inj 4 Mg/2 Ml Vial IV PUSH Q4H PRN Nausea Oxycodone HCl 5 mg 02/13/25 09:00 02/17/25 09:23 Oxycodone (*Crx) 5 Mg/5 Ml Oral Soln Ir FEED TUBE 5 mg Q6H HAIM Administration Pantoprazole Sodium 40 mg 02/01/25 09:00 02/17/25 09:23 Pantoprazole Sodium Iv 40 Mg Vial IV PUSH 40 mg Q12HR HAIM Administration Polyethylene Glycol 17 gm 02/08/25 10:41 Polyethylene Glycol 3350 17 Gm Powd.Pack PO QAM PRN constipation Risperidone 1 mg 02/12/25 09:00 02/17/25 09:23 Risperidone 1 Mg Tablet FEED TUBE 1 mg Q12HR HAIM Administration Risperidone 0.5 mg 02/12/25 21:00 02/16/25 20:26 Risperidone 0.5 Mg Tablet FEED TUBE 0.5 mg HS HAIM Administration Sodium Chloride 10 ml 02/01/25 14:00 02/17/25 14:07 Central Line Flush IV PUSH 10 ml Q8HR HAIM Administration Sodium Chloride 20 ml 02/01/25 06:37 Central Line Flush IV PUSH PRN PRN after blood draws Sodium Chloride 10 ml 02/12/25 14:00 02/17/25 14:08 Central Line Flush IV PUSH 10 ml Q8HR HAIM Administration Sodium Chloride 10 ml 02/12/25 11:37 Central Line Flush IV PUSH PRN PRN with TPN bag changes Sodium Chloride 20 ml 02/12/25 11:37 Central Line Flush IV PUSH PRN PRN after blood draws Radiology Results: ITS Impressions Head CT 01/31/25 15:47 Impression: No acute intracranial hemorrhage or suspicious mass effect. Chest/Abdomen/Pelvis CTA 01/31/25 15:49 IMPRESSION: Right middle and lower lobe pneumonia with dense consolidation. Left basilar atelectasis. No pulmonary embolus. No aortic dissection. Oral contrast opacifies the entirety of the colon. Supportive lines in good position. No acute pathology within the remainder of the examination, as detailed above. Abdomen X-Ray 02/12/25 05:44 Impression: NG tube in satisfactory position. Venous Doppler Study 02/15/25 12:09 IMPRESSION: 1. No deep venous thrombosis in either lower limb. Chest X-Ray 02/17/25 06:48 IMPRESSION: 1. Unchanged elevation of the right hemidiaphragm with some improvement in opacities in the right lower lobe which could represent atelectasis or pneumonia. Labs Labs: Laboratory Results - last 24 hr 02/16/25 02/17/25 02/17/25 18:01 00:27 05:04 WBC RBC Hgb Hct MCV MCH MCHC RDW Plt Count MPV Puncture Site Right radial ABG pH 7.424 ABG pCO2 41.1 ABG pO2 109.4 H ABG PO2/FiO2 Ratio 3.65 ABG HCO3 26.3 H ABG O2 Saturation 98.1 ABG O2 Content 13.7 L ABG Base Excess 1.7 A-a Gradient 56.2 Oxyhemoglobin 97.8 Carboxyhemoglobin 0.1 Methemoglobin 0.3 Reduced Hemoglobin 1.8 Total Hemoglobin 9.8 L O2 Delivery Device Ventilator O2 Liters/Min Not Reportable Minute Volume Not Reportable Vent Rate 14 Vent Mode Cmv FiO2 30 Tidal Volume 300 PEEP 5 Peak Inspir Pressure Not Reportable Pressure Support Not Reportable Sodium Potassium Chloride Carbon Dioxide Anion Gap BUN Creatinine Estim Creat Clear Calc Estimated GFR Glucose POC Capillary Glucose 98 101 Calcium Magnesium Total Bilirubin AST ALT Alkaline Phosphatase Total Protein Albumin 02/17/25 02/17/25 06:10 11:23 WBC 5.4 RBC 2.84 L Hgb 8.4 L Hct 27.3 L MCV 96.1 MCH 29.6 MCHC 30.8 L RDW 16.3 H Plt Count 300 MPV 9.6 Puncture Site ABG pH ABG pCO2 ABG pO2 ABG PO2/FiO2 Ratio ABG HCO3 ABG O2 Saturation ABG O2 Content ABG Base Excess A-a Gradient Oxyhemoglobin Carboxyhemoglobin Methemoglobin Reduced Hemoglobin Total Hemoglobin O2 Delivery Device O2 Liters/Min Minute Volume Vent Rate Vent Mode FiO2 Tidal Volume PEEP Peak Inspir Pressure Pressure Support Sodium 144 Potassium 3.4 Chloride 106 Carbon Dioxide 33 H Anion Gap 5 BUN 26 H Creatinine 0.56 L Estim Creat Clear Calc 45 Estimated GFR > 60 Glucose 117 H POC Capillary Glucose 121 H Calcium 8.9 Magnesium 2.0 Total Bilirubin 0.4 AST 41 H ALT 33 Alkaline Phosphatase 98 Total Protein 7.0 Albumin 3.5
[2025-02-17 16:54] LABS: Glucose Point of Care 110 mg/dl (65-105)
[2025-02-17] MEDS: risperiDONE 0.5 MG TABLET FEED TUBE (20:45)
[2025-02-17 23:58] LABS: Glucose Point of Care 117 mg/dl (65-105)
[2025-02-18] VITALS (28 sets, daily range): BP systolic 107–138; BP diastolic 61–84; PULSE 93–127; RESP 14–24; TEMP 37.6–38.1; O2SAT 94–99
[2025-02-18] MEDS: IPRATROPIUM BR 0.02% INH SOLN 0.5 MG/2.5 ML VIAL INHALATION ×4 (01:41→19:48)
[2025-02-18] MEDS: LEVALBUTEROL NEB 1.25 MG/3 ML 0.63 MG INHALATION ×4 (01:41→19:48)
[2025-02-18] MEDS: oxyCODONE (*CRX) 5 MG/5 ML ORAL SOLN IR FEED TUBE ×4 (03:21→20:18)
[2025-02-18] MEDS: PIPERACILLN/TAZ 3.375GM/NS50ML 3.375 GM/50 ML BAG IVPB ×4 (03:21→20:17)
[2025-02-18 03:22] LABS: Hemoglobin 8.3 g/dL (12.0-15.0); Mean Corpuscular HGB Conc 30.7 g/dl (32-36); Mean Corpuscular Volume 97.5 fl (80-100); Mean Platelet Volume 9.4 fl (7.4-10.4); Platelet Count Result 285 k/mm3 (150-375); Red Blood Count 2.77 M/mm3 (4.2-5.4); Red Cell Distribution Width 16.3 % (11.5-14.5); White Blood Count 6.3 K/mm3 (4.5-10.0)
[2025-02-18 03:33] LABS: Alanine Aminotransferase 33 U/L (6-35); Albumin Level 3.4 g/dL (3.5-5.1); Alkaline Phosphatase 95 U/L (38-126); Anion Gap 8 mmol/L (4-12); Aspartate Amino Transferase 39 U/L (14-36); Bilirubin,Total 0.3 mg/dL (0.2-1.3); Blood Urea Nitrogen 26 mg/dL (7-17); Carbon Dioxide 30 mmol/L (22-30); Chloride 106 mmol/L (98-107); Estimated CRCL calculation 57 ml/min; Estimated Glomerular Filt Rate > 60; Glucose 100 mg/dL (65-110); Potassium 3.8 mmol/L (3.4-5.0); Sodium 144 mmol/L (137-145)
[2025-02-18 05:07] LABS: Alveolar/Arterial O2 Gradient 54.7 mmHg; Base Excess ABG 7.9 mEq/l (+/-2.0); Carboxyhemoglobin 0.2 % THb (0-2.0); Fractional Inspired Oxygen 30 %; HCO3 ABG 33.7 mEq/l (22.0-26.0); Oxygen Content ABG 13.8 %vol (16.0-22.0); Oxygen Saturation ABG 97.3 % (95.0-100.0); PCO2 ABG 53.6 mmHg (35.0-45.0); PO2 ABG 96.2 mmHg (80.0-100.0); PO2 FiO2 Ratio Arterial Blood 3.21 %; Reduced Hemoglobin 2.8 %THb (0-5.0); pH ABG 7.416 (7.350-7.450)
[2025-02-18 05:09] LABS: Device VENTILATOR; Modified Allen's Test Pass; Site Drawn RIGHT RADIAL
[2025-02-18 05:10] LABS: Arterial Blood Gas PEEP 5 cmH2O; Arterial Blood Gas Tidal Volume 300 ml; Arterial Blood Gas Vent Mode CMV; Arterial Blood Gas Ventilator rate 14 /MIN
[2025-02-18 06:15] LABS: Glucose Point of Care 106 mg/dl (65-105)
[2025-02-18] MEDS: CENTRAL LINE FLUSH 10 ML IV PUSH ×6 (06:36→20:19)
--- NOTE | 2025-02-18 08:03 | P.PNINT_ITS ---
Progress Note: A&P Assessment and Plan (1) Acute hypoxic respiratory failure: Code(s): J96.01 - Acute respiratory failure with hypoxia Status: Acute Assessment and Plan: 01/31/2025: Patient presented from [facility] with hypoxia, periods of apnea, and unresponsiveness. She was brought to the ED being bagged, she did not have a gag and was unresponsive in the ED so was intubated upon arrival to the ED. central line was also inserted as she was hypotensive CT scan showed right middle and right lower lobe consolidation. Since then patient has also received decent amount of IV fluids 02/05-accidentally got extubated during turning by the nursing staff. She was intubated 02/06 failed weaning trial. patient kept on going into apnea ventilation. Precedex rate was decreased and patient is now on ASV. 02/07 weaning trial was attempted again. Patient had high RSBI on PSV 03/19. Patient was erratically breathing agitated and had drop in sats. Breathing trial was aborted 02/08 failed weaning trial due to high RSBI 02/09 I attempted a SBT weaning trial this morning. On 03/19 patient respiratory rate was in 40s with tidal volume and 100s. I had to increase the pressure support to 12 to get adequate RSBI even then patient's breathing was at. patient is not a candidate for extubation at this point. She will not be able to use BiPAP considering cerebral palsy and inability to communicate. I will try to continue weaning but I anticipate that if patient does not get extubated then she may need trach for continued ventilatory support 02/10 patient failed weaning trial again due to respiratory rate in high 40s and tidal volumes in 100s.. She requires pressure support of 12/5 for adequate ventilatory numbers. She is not a candidate for BiPAP. I anticipate patient will likely need tracheostomy. I called his healthcare power admitted attorneys who is on vacation at this time I will speak him on Wednesday. 02/11 Lasix again today and plan for weaning trial again today 02/12 self-extubated. Patient was given opportunity to see if she can tolerate noninvasive oxygenation support. But patient was tachypneic with use of accessory muscle and had to be reintubated. Patient also had airway edema and was given dexamethasone At this point patient has failed multiple days of trial and is quite debilitated and weak and unable to come off the ventilator. I spoke to patient's healthcare power admitted attorneys Mateo Warren who regarding option of proceeding need tracheostomy and PEG tube placement for ongoing ventilator support. He is agreeable to proceed with both and consented. Consent was also obtained for a PICC line 02/16 ENT consulted and patient underwent tracheostomy -currently on CMV mode of ventilation, peep of 5 and 30 % FiO2. Will try PSV -ABGs and chest x-ray reviewed, ventilator adjusted by decreasing the rate -continue bronchodilators and Mucomyst nebulizer -continue Zosyn for 7 days (2) Sepsis: Qualifiers: Sepsis type: sepsis due to unspecified organism Sepsis acute organ dysfunction status: unspecified Qualified Code(s): A41.9 - Sepsis, unspecified organism Code(s): A41.9 - Sepsis, unspecified organism Status: Acute Assessment and Plan: Patient presented with altered mental status, hypoxia, apnea, pneumonia. Patient initially required vasopressors but now off 02/13 low-grade fever overnight with increase tachycardia. Tachycardia could be secondary discontinuation of Precedex. WBC normal Chest x-ray shows clear lungs For limb sputum culture is negative, Arredondo catheter was, urinalysis reviewed and negative for nitrates or leukoesterase, pending blood cultures, low procalcitonin level Neg lower extremity Dopplers. Continue empiric antibiotics shows to cover for other etiologies like sinusitis (3) AMS (altered mental status): Qualifiers: Altered mental status type: unspecified Qualified Code(s): R41.82 - Altered mental status, unspecified Code(s): R41.82 - Altered mental status, unspecified Status: Acute Assessment and Plan: Encephalopathy could be related to hypoxia, hypercapnia, pneumoni a/infection/hypotension, could be related to medication -head CT negative at the time of presentation -currently intubated Off [facility] -upon review of chart patient appears to be nonverbal at baseline and communicates her needs with gestures. She walks around in the hallways and is able to eat modified diet (4) Pneumonia: Qualifiers: Pneumonia type: due to unspecified organism Laterality: right Lung location: unspecified part of lung Qualified Code(s): J18.9 - Pneumonia, unspecified organism Code(s): J18.9 - Pneumonia, unspecified organism Status: Acute Assessment and Plan: Chest x-ray and CTA chest show right lower lobe consolidation -according the [facility] records: Repeat CT chest showed interval development of new airspace opacities raising concern for aspiration pneumonia. She was transition to Zosyn from cefepime. MBS performed on 01/[address] [facility] which showed no evidence of aspiration despite coughing especially with swallowing. - completed course of Zosyn, azithromycin (01/31) -MRSA screen is negative, vancomycin discontinued (02/01) (5) Cerebral palsy: Qualifiers: Cerebral palsy type: other type Qualified Code(s): G80.8 - Other cerebral palsy Code(s): G80.9 - Cerebral palsy, unspecified Status: Acute Assessment and Plan: Patient with cerebral palsy, mild intellectual disability, schizophrenia, nonverbal at baseline according the chart -patient on risperidone, will restart prior to extubation as she is currently sedated and intubated (6) Anemia: Qualifiers: Anemia type: unspecified type Qualified Code(s): D64.9 - Anemia, unspecified Code(s): D64.9 - Anemia, unspecified Status: Acute Assessment and Plan: Patient admitted with a hemoglobin of 10.3 on 01/31 -02/01: Hemoglobin dropped to 7.7, a repeat CBC was done which showed a hemoglobin of 7.3 -will check stools for occult blood, -folic acid and vitamin B12 level within normal limits -low iron levels, low TIBC, will give Venofer -LDH is normal, haptoglobin is pending -Protonix IV q.12 hours -continue to monitor (7) Electrolyte imbalance: Code(s): E87.8 - Other disorders of electrolyte and fluid balance, not elsewhere classified Status: Acute Assessment and Plan: Continue free water flush to 100 mL Replace low potassium (8) Sinus tachycardia: Code(s): R00.0 - Tachycardia, unspecified Status: Acute Assessment and Plan: 02/04: Patient developed SVT/sinus tachycardia overnight with rates in the 180- 200s. Was given IV metoprolol x1 with improvement which brought her rate start to 130s. -could be multifactorial, related to sepsis, anemia, coronary artery disease -TSH normal -will continue metoprolol -currently sinus tachycardia monitor - mild elevation in troponin level with the levels have trended down -cardiology consult 02/02/2025: Echocardiogram Summary 1. Complete two-dimensional, color flow and Doppler transthoracic echocardiogram is performed. 2. Left ventricular chamber dimension is normal. 3. Left ventricular systolic function is normal, estimated at 60-65%. 4. The left ventricular diastolic function is grade I diastolic dysfunction. 5. E/e' 7 is not elevated. 6. There is mild aortic valve sclerosis. 7. There is trace tricuspid valve regurgitation. 8. Mild pulmonary hypertension, estimated pulmonary arterial systolic pressure is 41 mmHg. (9) Constipation: Qualifiers: Constipation type: unspecified constipation type Qualified Code(s): K59.00 - Constipation, unspecified Code(s): K59.00 - Constipation, unspecified Status: Acute Assessment and Plan: 02/04: KUB showed moderate fecal retention -improved with laxatives as patient is now having bowel movements. 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 I spoke to him this morning and we discussed patient's failure to wean. I discussed option of tracheostomy PEG tube and PICC line he is agreeable to proceed with all. I explained him that we may not have ENT coverage and we may have to transfer the patient very tracheostomy and he was agreeable to transfer to either [facility] or [facility] for the procedure if needed Patient now awaits placement Critical Care Time Spent: 30 minutes Due to a high probability of clinically significant, life threatening deterioration, the patient required my highest level of preparedness to intervene emergently and I personally spent this critical care time directly and personally managing the patient. This critical care time included obtaining a history; examining the patient; pulse oximetry; ordering and review of studies; arranging urgent treatment with development of a management plan; evaluation of patient's response to treatment; frequent reassessment; and discussions with other providers. It was exclusive of separately billable procedures and treating other patients and teaching time. Please see Assessment and Plan section and the rest of the note for further information on patient assessment and treatment This dictation may have been done utilizing a voice recognition system. Attempts have been made to correct errors. However, there may be uncorrected grammatical, spelling, and recognitions errors present. Subjective Date/time seen: 02/18/25 Overnight events reviewed. Low-grade fever Continues to be on mechanical ventilation 30% FiO2 Patient not on any continue sedation appears comfortable Other Vitals acceptable Tolerating tube feeds at goal Good urine output Review of Systems Review of Systems: ROS unobtainable: Yes unobtainable due to endotracheal tube, unobtainable due to medical condition and unobtainable due to mental status Exam Narrative: General: Petite female/malnourished, in no acute distress HEENT:? Pupils are pinpoint, sluggish, tracheostomy in place Neck:? Supple Respiratory:? Coarse breath sounds bilaterally, rales on right base, no wheezing, adequate air entry otherwise Cardiac:? S1-S2 normal, regular rate and rhythm Abdomen:? Soft, nontender, nondistended, hypoactive bowel sounds, peg tube in place Extremities:? Trace edema, bilateral pedal pulses are palpable Neuro:? Intubated, opens eyes on stimulation is. Moves her extremities spontaneously but does not follow any command Skin:? No skin lesions noted Psych:? Unable to assess at this time Objective Data Vital Signs Vital Signs: Vital Signs - 24 hr 02/17/25 08:31 02/17/25 08:32 02/17/25 08:45 Temperature Pulse Rate 111 H 111 H 110 H Respiratory Rate 14 14 Blood Pressure Pulse Oximetry 96 Oxygen Delivery Mechanical Ventilation Fraction of Inspired Oxygen 30 02/17/25 09:24 02/17/25 10:00 02/17/25 10:00 Temperature 37.7 C H Pulse Rate 119 H 110 H 110 H Respiratory Rate 14 Blood Pressure 113/78 Pulse Oximetry 98 Oxygen Delivery Fraction of Inspired Oxygen 02/17/25 11:26 02/17/25 12:00 02/17/25 12:00 Temperature Pulse Rate 107 H Respiratory Rate Blood Pressure Pulse Oximetry 98 98 Oxygen Delivery Mechanical Ventilation Mechanical Ventilation Fraction of Inspired Oxygen 30 30 30 02/17/25 12:00 02/17/25 12:00 02/17/25 14:00 Temperature 37.8 C H Pulse Rate 107 H 109 H 113 H Respiratory Rate 16 Blood Pressure 115/70 Pulse Oximetry 98 Oxygen Delivery Fraction of Inspired Oxygen 02/17/25 14:00 02/17/25 14:09 02/17/25 14:10 Temperature 37.8 C H Pulse Rate 114 H 112 H 111 H Respiratory Rate 19 17 Blood Pressure 121/78 Pulse Oximetry 98 97 Oxygen Delivery Mechanical Ventilation Fraction of Inspired Oxygen 30 02/17/25 14:25 02/17/25 16:00 02/17/25 16:00 Temperature Pulse Rate 115 H Respiratory Rate 17 Blood Pressure Pulse Oximetry 95 Oxygen Delivery Mechanical Ventilation Fraction of Inspired Oxygen 30 30 02/17/25 16:00 02/17/25 16:00 02/17/25 16:45 Temperature 37.9 C H Pulse Rate 112 H 112 H 114 H Respiratory Rate 15 Blood Pressure 107/71 Pulse Oximetry 96 97 Oxygen Delivery Mechanical Ventilation Fraction of Inspired Oxygen 30 02/17/25 18:00 02/17/25 18:00 02/17/25 20:00 Temperature 37.9 C H 37.9 C H Pulse Rate 114 H 115 H 115 H Respiratory Rate 15 24 H Blood Pressure 126/65 127/84 Pulse Oximetry 95 97 Oxygen Delivery Fraction of Inspired Oxygen 02/17/25 20:00 02/17/25 20:00 02/17/25 20:00 Temperature Pulse Rate 115 H Respiratory Rate Blood Pressure Pulse Oximetry 96 Oxygen Delivery Mechanical Ventilation Fraction of Inspired Oxygen 30 30 02/17/25 20:25 02/17/25 20:40 02/17/25 20:45 Temperature Pulse Rate 118 H 118 H 122 H Respiratory Rate 15 15 Blood Pressure Pulse Oximetry Oxygen Delivery Fraction of Inspired Oxygen 02/17/25 20:56 02/17/25 22:00 02/17/25 22:00 Temperature 38.0 C H Pulse Rate 118 H 120 H 102 H Respiratory Rate 24 H Blood Pressure 110/58 L Pulse Oximetry 96 97 Oxygen Delivery Mechanical Ventilation Fraction of Inspired Oxygen 30 02/17/25 22:57 02/18/25 00:00 02/18/25 00:00 Temperature 38.1 C H Pulse Rate 101 H 107 H Respiratory Rate 22 H Blood Pressure 111/67 Pulse Oximetry 97 96 96 Oxygen Delivery Mechanical Ventilation Mechanical Ventilation Fraction of Inspired Oxygen 30 30 02/18/25 00:00 02/18/25 00:00 02/18/25 01:41 Temperature Pulse Rate 112 H 110 H Respiratory Rate 15 Blood Pressure Pulse Oximetry Oxygen Delivery Fraction of Inspired Oxygen 30 02/18/25 01:49 02/18/25 02:00 02/18/25 02:00 Temperature 37.9 C H Pulse Rate 110 H 110 H 107 H Respiratory Rate 24 H Blood Pressure 111/61 Pulse Oximetry 96 97 Oxygen Delivery Mechanical Ventilation Fraction of Inspired Oxygen 30 02/18/25 02:02 02/18/25 03:09 02/18/25 03:34 Temperature Pulse Rate 108 H Respiratory Rate 15 Blood Pressure Pulse Oximetry 97 Oxygen Delivery Mechanical Ventilation Fraction of Inspired Oxygen 30 30 02/18/25 04:00 02/18/25 04:00 02/18/25 05:23 Temperature 37.7 C H Pulse Rate 127 H 123 H 110 H Respiratory Rate 24 H Blood Pressure 107/64 Pulse Oximetry 98 96 Oxygen Delivery Mechanical Ventilation Fraction of Inspired Oxygen 30 02/18/25 06:00 02/18/25 06:00 02/18/25 07:35 Temperature 37.7 C H Pulse Rate 116 H 112 H 121 H Respiratory Rate 22 H Blood Pressure 113/75 Pulse Oximetry 99 94 Oxygen Delivery Mechanical Ventilation Fraction of Inspired Oxygen 30 02/18/25 07:35 Temperature Pulse Rate 121 H Respiratory Rate 16 Blood Pressure Pulse Oximetry Oxygen Delivery Fraction of Inspired Oxygen Intake/Output Intake/Output: Intake & Output 02/15/25 02/16/25 02/17/25 02/18/25 23:59 23:59 23:59 23:59 Intake Total 2108.7 1385.5 1951 804 Output Total 975 1100 1425 550 Balance 1133.7 285.5 526 254 Meds/Results Medications: Active Medications Generic Name Dose Route Start Last Admin Trade Name Freq PRN Reason Stop Dose Admin Acetaminophen 650 mg 02/03/25 22:36 02/16/25 20:27 Acetaminophen Elixir 325 Mg/10.15 Ml Udc PO 650 mg Q6H PRN Administration Mild Pain (1-3) or Fever Dextrose 12.5 gm 02/01/25 07:23 02/11/25 23:40 Dextrose 50% 25 Gm/50 Ml Syringe IV PUSH 12.5 gm PRN PRN Administration Hypoglycemia Protocol Diazepam 5 mg 02/13/25 09:22 Diazepam (*Crx) 5 Mg Tablet FEED TUBE Q8H PRN Anxiety Enoxaparin Sodium 40 mg 02/07/25 09:00 02/15/25 08:29 Enoxaparin 40 Mg/0.4 Ml Syringe SUB-Q 40 mg DAILY HAIM Administration Fentanyl Citrate 25 mcg 02/13/25 09:23 Fentanyl Citrate Inj (*Crx) 100 Mcg/2 Ml Vial IV PUSH Q2H PRN Pain or discomfort on vent Glucagon 1 mg 02/01/25 07:23 Glucagon For Inj 1 Mg Vial IM PRN PRN Hypoglycemia Protocol Glucose 15 gm 02/01/25 07:23 Glucose Oral Gel 15 Gm Of Glucse In 37.5 Gm Tube PO PRN PRN Hypoglycemia Protocol Dextrose 1,000 mls @ 100 mls/hr 02/01/25 07:23 Dextrose 5% 1,000 Ml IVPB PRN PRN Hypoglycemia Protocol Piperacillin/Tazobactam/Dextrose 3.375 gm in 50 mls @ 100 mls/hr 02/15/25 09:00 02/18/25 03:21 Zosyn 3.375 Gm/Ns 50 Ml IVPB 02/22/25 08:59 100 mls/hr Q6H HAIM Administration Insulin Aspart 3 - 6 units 02/01/25 12:00 02/18/25 06:36 Insulin Aspart (*Bkc) 100 Units/Ml SUB-Q Not Given Q6HR HAIM Protocol Ipratropium [place] 0.5 mg 02/04/25 14:00 02/18/25 07:35 Ipratropium Br 0.02% Inh Soln 0.5 Mg/2.5 Ml Vial INHALATION 0.5 mg Q6HRT HAIM Administration Labetalol HCl 20 mg 02/16/25 13:47 Labetalol Hcl Inj 100 Mg/20 Ml Vial IV PUSH Q4H PRN SBP > 160 and HR> 60 -1st choice Levalbuterol HCl 0.63 mg 02/04/25 14:00 02/18/25 07:35 Levalbuterol Neb 1.25 Mg/3 Ml INHALATION 0.63 mg Q6HRT HAIM Administration Lorazepam 2 mg 02/17/25 08:10 Lorazepam Inj (*Crx) 2 Mg/Ml Vial IV PUSH Q4H PRN Agitation on Vent Metoprolol Tartrate 5 mg 02/04/25 04:26 02/17/25 00:53 Metoprolol Tartrate Inj 5 Mg/5 Ml Vial IV PUSH 5 mg Q6H PRN Administration HR > 130 Metoprolol Tartrate 25 mg 02/12/25 09:00 02/17/25 20:45 Metoprolol Tartrate 25 Mg Tablet PO 25 mg Q12HR HAIM Administration Multi-Ingred Cream/Lotion/Oil/Oint 1 applic 02/01/25 21:00 02/17/25 20:46 Mineral Oil/White Petrolatum Ointment EACH EYE 1 applic Q12HR HAIM Administration Ondansetron HCl 4 mg 01/31/25 16:00 Ondansetron Inj 4 Mg/2 Ml Vial IV PUSH Q4H PRN Nausea Oxycodone HCl 5 mg 02/13/25 09:00 02/18/25 03:21 Oxycodone (*Crx) 5 Mg/5 Ml Oral Soln Ir FEED TUBE 5 mg Q6H HAIM Administration Pantoprazole Sodium 40 mg 02/01/25 09:00 02/17/25 20:41 Pantoprazole Sodium Iv 40 Mg Vial IV PUSH 40 mg Q12HR HAIM Administration Polyethylene Glycol 17 gm 02/08/25 10:41 Polyethylene Glycol 3350 17 Gm Powd.Pack PO QAM PRN constipation Risperidone 1 mg 02/12/25 09:00 02/17/25 20:45 Risperidone 1 Mg Tablet FEED TUBE 1 mg Q12HR HAIM Administration Risperidone 0.5 mg 02/12/25 21:00 02/17/25 20:45 Risperidone 0.5 Mg Tablet FEED TUBE 0.5 mg HS HAIM Administration Sodium Chloride 10 ml 02/01/25 14:00 02/18/25 06:36 Central Line Flush IV PUSH 10 ml Q8HR HAIM Administration Sodium Chloride 20 ml 02/01/25 06:37 Central Line Flush IV PUSH PRN PRN after blood draws Sodium Chloride 10 ml 02/12/25 14:00 02/18/25 06:36 Central Line Flush IV PUSH 10 ml Q8HR HAIM Administration Sodium Chloride 10 ml 02/12/25 11:37 Central Line Flush IV PUSH PRN PRN with TPN bag changes Sodium Chloride 20 ml 02/12/25 11:37 Central Line Flush IV PUSH PRN PRN after blood draws Radiology Results: ITS Impressions Head CT 01/31/25 15:47 Impression: No acute intracranial hemorrhage or suspicious mass effect. Chest/Abdomen/Pelvis CTA 01/31/25 15:49 IMPRESSION: Right middle and lower lobe pneumonia with dense consolidation. Left basilar atelectasis. No pulmonary embolus. No aortic dissection. Oral contrast opacifies the entirety of the colon. Supportive lines in good position. No acute pathology within the remainder of the examination, as detailed above. Abdomen X-Ray 02/12/25 05:44 Impression: NG tube in satisfactory position. Venous Doppler Study 02/15/25 12:09 IMPRESSION: 1. No deep venous thrombosis in either lower limb. Labs Labs: Laboratory Results - last 24 hr 02/17/25 02/17/25 02/17/25 11:23 16:52 23:46 WBC RBC Hgb Hct MCV MCH MCHC RDW Plt Count MPV Puncture Site ABG pH ABG pCO2 ABG pO2 ABG PO2/FiO2 Ratio ABG HCO3 ABG O2 Saturation ABG O2 Content ABG Base Excess A-a Gradient Oxyhemoglobin Carboxyhemoglobin Methemoglobin Reduced Hemoglobin Total Hemoglobin O2 Delivery Device O2 Liters/Min Minute Volume Vent Rate Vent Mode FiO2 Tidal Volume PEEP Peak Inspir Pressure Pressure Support Sodium Potassium Chloride Carbon Dioxide Anion Gap BUN Creatinine Estim Creat Clear Calc Estimated GFR Glucose POC Capillary Glucose 121 H 110 H 117 H Calcium Magnesium Total Bilirubin AST ALT Alkaline Phosphatase Total Protein Albumin 02/18/25 02/18/25 02/18/25 03:18 05:04 06:13 WBC 6.3 RBC 2.77 L Hgb 8.3 L Hct 27.0 L MCV 97.5 MCH 30.0 MCHC 30.7 L RDW 16.3 H Plt Count 285 MPV 9.4 Puncture Site Right radial ABG pH 7.416 ABG pCO2 53.6 H ABG pO2 96.2 ABG PO2/FiO2 Ratio 3.21 ABG HCO3 33.7 H ABG O2 Saturation 97.3 ABG O2 Content 13.8 L ABG Base Excess 7.9 A-a Gradient 54.7 Oxyhemoglobin 97.0 Carboxyhemoglobin 0.2 Methemoglobin 0.0 Reduced Hemoglobin 2.8 Total Hemoglobin 10.0 L O2 Delivery Device Ventilator O2 Liters/Min Not Reportable Minute Volume Not Reportable Vent Rate 14 Vent Mode Cmv FiO2 30 Tidal Volume 300 PEEP 5 Peak Inspir Pressure Not Reportable Pressure Support Not Reportable Sodium 144 Potassium 3.8 Chloride 106 Carbon Dioxide 30 Anion Gap 8 BUN 26 H Creatinine 0.48 L Estim Creat Clear Calc 57 Estimated GFR > 60 Glucose 100 POC Capillary Glucose 106 H Calcium 9.0 Magnesium 2.0 Total Bilirubin 0.3 AST 39 H ALT 33 Alkaline Phosphatase 95 Total Protein 7.0 Albumin 3.4 L Quality VTE Prophylaxis VTE prophylaxis: mechanical ordered and pharmacologic ordered
[2025-02-18] MEDS: PANTOPRAZOLE SODIUM IV 40 MG VIAL IV PUSH ×2 (08:29→20:18)
[2025-02-18] MEDS: MINERAL OIL/WHITE PETROLATUM OINTMENT 1 APPLIC EACH EYE ×2 (08:29→20:18)
[2025-02-18] MEDS: risperiDONE 1 MG TABLET FEED TUBE ×2 (08:29→20:17)
[2025-02-18] MEDS: METOPROLOL TARTRATE 25 MG TABLET PO ×2 (08:29→20:17)
[2025-02-18] MEDS: ACETAMINOPHEN ELIXIR 325 MG/10.15 ML UDC 650 MG PO (08:45)
[2025-02-18 12:06] LABS: Glucose Point of Care 112 mg/dl (65-105)
--- NOTE | 2025-02-18 13:18 | PM.IMPN ---
Progress Note: A&P Assessment and Plan (1) Acute hypoxic respiratory failure: Code(s): J96.01 - Acute respiratory failure with hypoxia Status: Acute Assessment and Plan: 01/31/2025: Patient presented from [facility] with hypoxia, periods of apnea, and unresponsiveness. She was brought to the ED being bagged, she did not have a gag and was unresponsive in the ED so was intubated upon arrival to the ED. central line was also inserted as she was hypotensive CT scan showed right middle and right lower lobe consolidation. Since then patient has also received decent amount of IV fluids ENT consulted for tracheostomy and patient underwent tracheostomy placement 02/16/2025 Continue CMV mode of ventilation, peep of 5 and 30 % FiO2 per social worker Completed course of Zosyn and azithromycin Continue bronchodilators and Mucomyst nebulizer (2) Sepsis: Qualifiers: Sepsis acute organ dysfunction status: unspecified Sepsis type: sepsis due to unspecified organism Qualified Code(s): A41.9 - Sepsis, unspecified organism Code(s): A41.9 - Sepsis, unspecified organism Status: Acute Assessment and Plan: Patient presented with altered mental status, hypoxia, apnea, pneumonia. Patient initially required vasopressors but now off empiric antibiotics to cover for other etiologies Blood culture negative (3) AMS (altered mental status): Qualifiers: Altered mental status type: unspecified Qualified Code(s): R41.82 - Altered mental status, unspecified Code(s): R41.82 - Altered mental status, unspecified Status: Acute Assessment and Plan: Encephalopathy could be related to hypoxia, hypercapnia, pneumonia/infection/hypotension, could be related to medication -head CT negative at the time of presentation Remains intubated -upon review of chart patient appears to be nonverbal at baseline and communicates her needs with gestures. She walks around in the hallways and is able to eat modified diet (4) Pneumonia: Qualifiers: Laterality: right Lung location: unspecified part of lung Pneumonia type: due to unspecified organism Qualified Code(s): J18.9 - Pneumonia, unspecified organism Code(s): J18.9 - Pneumonia, unspecified organism Status: Acute Assessment and Plan: Chest x-ray and CTA chest show right lower lobe consolidation -according the [facility] records: Repeat CT chest showed interval development of new airspace opacities raising concern for aspiration pneumonia. She was transition to Zosyn from cefepime. MBS performed on 01/26 at [facility] which showed no evidence of aspiration despite coughing especially with swallowing. completed course of Zosyn, azithromycin (01/31) -MRSA screen is negative, vancomycin discontinued (02/01) (5) Cerebral palsy: Qualifiers: Cerebral palsy type: other type Qualified Code(s): G80.8 - Other cerebral palsy Code(s): G80.9 - Cerebral palsy, unspecified Status: Acute Assessment and Plan: Patient with cerebral palsy, mild intellectual disability, schizophrenia, nonverbal at baseline according the chart -patient on risperidone at baseline (6) Anemia: Qualifiers: Anemia type: unspecified type Qualified Code(s): D64.9 - Anemia, unspecified Code(s): D64.9 - Anemia, unspecified Status: Acute Assessment and Plan: Patient admitted with a hemoglobin of 10.3 on 01/31 -02/01: Hemoglobin dropped to 7.7, a repeat CBC was done which showed a hemoglobin of 7.3 -will check stools for occult blood, -folic acid and vitamin B12 level within normal limits -low iron levels, low TIBC, will give Venofer -LDH is normal, haptoglobin is pending -Protonix IV q.12 hours -continue to monitor (7) Electrolyte imbalance: Code(s): E87.8 - Other disorders of electrolyte and fluid balance, not elsewhere classified Status: Acute Assessment and Plan: Continue free water flush to 100 mL Replace low potassium (8) Sinus tachycardia: Code(s): R00.0 - Tachycardia, unspecified Status: Acute Assessment and Plan: 02/04: Patient developed SVT/sinus tachycardia overnight with rates in the 180-200s. Was given IV metoprolol x1 with improvement which brought her rate start to 130s. -could be multifactorial, related to sepsis, anemia, coronary artery disease -TSH normal -will continue metoprolol -currently sinus tachycardia monitor - mild elevation in troponin level with the levels have trended down -cardiology consult 02/02/2025: Echocardiogram Summary 1. Complete two-dimensional, color flow and Doppler transthoracic echocardiogram is performed. 2. Left ventricular chamber dimension is normal. 3. Left ventricular systolic function is normal, estimated at 60-65%. 4. The left ventricular diastolic function is grade I diastolic dysfunction. 5. E/e' 7 is not elevated. 6. There is mild aortic valve sclerosis. 7. There is trace tricuspid valve regurgitation. 8. Mild pulmonary hypertension, estimated pulmonary arterial systolic pressure is 41 mmHg. (9) Constipation: Qualifiers: Constipation type: unspecified constipation type Qualified Code(s): K59.00 - Constipation, unspecified Code(s): K59.00 - Constipation, unspecified Status: Acute Assessment and Plan: 02/04: KUB showed moderate fecal retention -improved with laxatives as patient is now having bowel movements. Continue Docusate sodium and senna and MiraLax Plan DVT prophylaxis: Lovenox Stress ulcer prophylaxis: Protonix IV q.12 hours Nutrition: PEG tube placed Tolerating tube feeds, patient on stool softener and MiraLax Subjective Date/time seen: 02/18/25 13:18 Interval history: Remains febrile mild low-grade. Continues to be on mechanical ventilation. Not on sedation. On tube feeds Review of Systems Review of Systems: ROS unobtainable: Yes unobtainable due to mental status Exam Narrative: General: Petite female/malnourished, in no acute distress HEENT:? Pupils are pinpoint, sluggish, tracheostomy in place Neck:? Supple Respiratory:? Coarse breath sounds bilaterally, rales on right base, no wheezing, adequate air entry otherwise Cardiac:? S1-S2 normal, regular rate and rhythm Abdomen:? Soft, nontender, nondistended, hypoactive bowel sounds, peg tube in place Extremities:? Trace edema, bilateral pedal pulses are palpable Neuro:? Intubated, sedated, Skin:? No skin lesions noted Psych:? Unable to assess at this time Objective Data Vital Signs Vital Signs: Vital Signs - 24 hr 02/17/25 14:00 02/17/25 14:00 02/17/25 14:09 Temperature 100.1 F H Pulse Rate 113 H 114 H 112 H Respiratory Rate 19 17 Blood Pressure 121/78 Pulse Oximetry 98 Oxygen Delivery Fraction of Inspired Oxygen 02/17/25 14:10 02/17/25 14:25 02/17/25 16:00 Temperature Pulse Rate 111 H 115 H Respiratory Rate 17 Blood Pressure Pulse Oximetry 97 95 Oxygen Delivery Mechanical Ventilation Mechanical Ventilation Fraction of Inspired Oxygen 30 30 02/17/25 16:00 02/17/25 16:00 02/17/25 16:00 Temperature 100.3 F H Pulse Rate 112 H 112 H Respiratory Rate 15 Blood Pressure 107/71 Pulse Oximetry 96 Oxygen Delivery Fraction of Inspired Oxygen 30 02/17/25 16:45 02/17/25 18:00 02/17/25 18:00 Temperature 100.2 F H Pulse Rate 114 H 114 H 115 H Respiratory Rate 15 Blood Pressure 126/65 Pulse Oximetry 97 95 Oxygen Delivery Mechanical Ventilation Fraction of Inspired Oxygen 30 02/17/25 20:00 02/17/25 20:00 02/17/25 20:00 Temperature 100.3 F H Pulse Rate 115 H Respiratory Rate 24 H Blood Pressure 127/84 Pulse Oximetry 97 96 Oxygen Delivery Mechanical Ventilation Fraction of Inspired Oxygen 30 30 02/17/25 20:00 02/17/25 20:25 02/17/25 20:40 Temperature Pulse Rate 115 H 118 H 118 H Respiratory Rate 15 15 Blood Pressure Pulse Oximetry Oxygen Delivery Fraction of Inspired Oxygen 02/17/25 20:45 02/17/25 20:56 02/17/25 22:00 Temperature Pulse Rate 122 H 118 H 120 H Respiratory Rate Blood Pressure Pulse Oximetry 96 Oxygen Delivery Mechanical Ventilation Fraction of Inspired Oxygen 30 02/17/25 22:00 02/17/25 22:57 02/18/25 00:00 Temperature 100.4 F H 100.5 F H Pulse Rate 102 H 101 H 107 H Respiratory Rate 24 H 22 H Blood Pressure 110/58 L 111/67 Pulse Oximetry 97 97 96 Oxygen Delivery Mechanical Ventilation Fraction of Inspired Oxygen 30 02/18/25 00:00 02/18/25 00:00 02/18/25 00:00 Temperature Pulse Rate 112 H Respiratory Rate Blood Pressure Pulse Oximetry 96 Oxygen Delivery Mechanical Ventilation Fraction of Inspired Oxygen 30 30 02/18/25 01:41 02/18/25 01:49 02/18/25 02:00 Temperature 100.2 F H Pulse Rate 110 H 110 H 110 H Respiratory Rate 15 24 H Blood Pressure 111/61 Pulse Oximetry 96 97 Oxygen Delivery Mechanical Ventilation Fraction of Inspired Oxygen 30 02/18/25 02:00 02/18/25 02:02 02/18/25 03:09 Temperature Pulse Rate 107 H 108 H Respiratory Rate 15 Blood Pressure Pulse Oximetry Oxygen Delivery Fraction of Inspired Oxygen 30 02/18/25 03:34 02/18/25 04:00 02/18/25 04:00 Temperature 99.9 F H Pulse Rate 127 H 123 H Respiratory Rate 24 H Blood Pressure 107/64 Pulse Oximetry 97 98 Oxygen Delivery Mechanical Ventilation Fraction of Inspired Oxygen 30 02/18/25 05:23 02/18/25 06:00 02/18/25 06:00 Temperature 99.8 F H Pulse Rate 110 H 116 H 112 H Respiratory Rate 22 H Blood Pressure 113/75 Pulse Oximetry 96 99 Oxygen Delivery Mechanical Ventilation Fraction of Inspired Oxygen 30 02/18/25 07:35 02/18/25 07:35 02/18/25 08:00 Temperature 100.2 F H Pulse Rate 121 H 121 H 119 H Respiratory Rate 16 16 Blood Pressure 110/63 Pulse Oximetry 94 94 Oxygen Delivery Mechanical Ventilation Fraction of Inspired Oxygen 30 02/18/25 08:00 02/18/25 08:00 02/18/25 08:00 Temperature Pulse Rate 120 H Respiratory Rate Blood Pressure Pulse Oximetry 94 Oxygen Delivery Mechanical Ventilation Fraction of Inspired Oxygen 30 30 02/18/25 08:07 02/18/25 08:29 02/18/25 08:45 Temperature 100.2 F H Pulse Rate 123 H 117 H Respiratory Rate 15 Blood Pressure Pulse Oximetry Oxygen Delivery Fraction of Inspired Oxygen 02/18/25 09:45 02/18/25 10:00 02/18/25 10:00 Temperature 100.3 F H 100.3 F H Pulse Rate 102 H 102 H Respiratory Rate 14 Blood Pressure 107/79 Pulse Oximetry 94 Oxygen Delivery Fraction of Inspired Oxygen 02/18/25 10:34 02/18/25 12:00 02/18/25 12:00 Temperature Pulse Rate 101 H Respiratory Rate Blood Pressure Pulse Oximetry 94 94 Oxygen Delivery Mechanical Ventilation Mechanical Ventilation Fraction of Inspired Oxygen 30 30 30 02/18/25 12:00 02/18/25 12:00 Temperature 100.6 F H Pulse Rate 108 H 107 H Respiratory Rate 18 Blood Pressure 110/73 Pulse Oximetry 94 Oxygen Delivery Fraction of Inspired Oxygen Intake/Output Intake/Output: Intake & Output 02/15/25 02/16/25 02/17/25 02/18/25 23:59 23:59 23:59 23:59 Intake Total 2108.7 1385.5 1951 904 Output Total 975 1100 1425 550 Balance 1133.7 285.5 526 354 Meds/Results Medications: Active Medications Generic Name Dose Route Start Last Admin Trade Name Freq PRN Reason Stop Dose Admin Acetaminophen 650 mg 02/03/25 22:36 02/18/25 08:45 Acetaminophen Elixir 325 Mg/10.15 Ml Udc PO 650 mg Q6H PRN Administration Mild Pain (1-3) or Fever Dextrose 12.5 gm 02/01/25 07:23 02/11/25 23:40 Dextrose 50% 25 Gm/50 Ml Syringe IV PUSH 12.5 gm PRN PRN Administration Hypoglycemia Protocol Diazepam 5 mg 02/13/25 09:22 Diazepam (*Crx) 5 Mg Tablet FEED TUBE Q8H PRN Anxiety Enoxaparin Sodium 40 mg 02/07/25 09:00 02/15/25 08:29 Enoxaparin 40 Mg/0.4 Ml Syringe SUB-Q 40 mg DAILY HAIM Administration Fentanyl Citrate 25 mcg 02/13/25 09:23 Fentanyl Citrate Inj (*Crx) 100 Mcg/2 Ml Vial IV PUSH Q2H PRN Pain or discomfort on vent Glucagon 1 mg 02/01/25 07:23 Glucagon For Inj 1 Mg Vial IM PRN PRN Hypoglycemia Protocol Glucose 15 gm 02/01/25 07:23 Glucose Oral Gel 15 Gm Of Glucse In 37.5 Gm Tube PO PRN PRN Hypoglycemia Protocol Dextrose 1,000 mls @ 100 mls/hr 02/01/25 07:23 Dextrose 5% 1,000 Ml IVPB PRN PRN Hypoglycemia Protocol Piperacillin/Tazobactam/Dextrose 3.375 gm in 50 mls @ 100 mls/hr 02/15/25 09:00 02/18/25 09:00 Zosyn 3.375 Gm/Ns 50 Ml IVPB 02/22/25 08:59 Infused Q6H HAIM Infusion Insulin Aspart 3 - 6 units 02/01/25 12:00 02/18/25 12:28 Insulin Aspart (*Bkc) 100 Units/Ml SUB-Q Not Given Q6HR [facility] Protocol Ipratropium [place] 0.5 mg 02/04/25 14:00 02/18/25 07:35 Ipratropium Br 0.02% Inh Soln 0.5 Mg/2.5 Ml Vial INHALATION 0.5 mg Q6HRT HAIM Administration Labetalol HCl 20 mg 02/16/25 13:47 Labetalol Hcl Inj 100 Mg/20 Ml Vial IV PUSH Q4H PRN SBP > 160 and HR> 60 -1st choice Levalbuterol HCl 0.63 mg 02/04/25 14:00 02/18/25 07:35 Levalbuterol Neb 1.25 Mg/3 Ml INHALATION 0.63 mg Q6HRT HAIM Administration Lorazepam 2 mg 02/17/25 08:10 Lorazepam Inj (*Crx) 2 Mg/Ml Vial IV PUSH Q4H PRN Agitation on Vent Metoprolol Tartrate 5 mg 02/04/25 04:26 02/17/25 00:53 Metoprolol Tartrate Inj 5 Mg/5 Ml Vial IV PUSH 5 mg Q6H PRN Administration HR > 130 Metoprolol Tartrate 25 mg 02/12/25 09:00 02/18/25 08:29 Metoprolol Tartrate 25 Mg Tablet PO 25 mg Q12HR HAIM Administration Multi-Ingred Cream/Lotion/Oil/Oint 1 applic 02/01/25 21:00 02/18/25 08:29 Mineral Oil/White Petrolatum Ointment EACH EYE 1 applic Q12HR HAIM Administration Ondansetron HCl 4 mg 01/31/25 16:00 Ondansetron Inj 4 Mg/2 Ml Vial IV PUSH Q4H PRN Nausea Oxycodone HCl 5 mg 02/13/25 09:00 02/18/25 08:29 Oxycodone (*Crx) 5 Mg/5 Ml Oral Soln Ir FEED TUBE 5 mg Q6H HAIM Administration Pantoprazole Sodium 40 mg 02/01/25 09:00 02/18/25 08:29 Pantoprazole Sodium Iv 40 Mg Vial IV PUSH 40 mg Q12HR HAIM Administration Polyethylene Glycol 17 gm 02/08/25 10:41 Polyethylene Glycol 3350 17 Gm Powd.Pack PO QAM PRN constipation Risperidone 1 mg 02/12/25 09:00 02/18/25 08:29 Risperidone 1 Mg Tablet FEED TUBE 1 mg Q12HR HAIM Administration Risperidone 0.5 mg 02/12/25 21:00 02/17/25 20:45 Risperidone 0.5 Mg Tablet FEED TUBE 0.5 mg HS HAIM Administration Sodium Chloride 10 ml 02/01/25 14:00 02/18/25 06:36 Central Line Flush IV PUSH 10 ml Q8HR HAIM Administration Sodium Chloride 20 ml 02/01/25 06:37 Central Line Flush IV PUSH PRN PRN after blood draws Sodium Chloride 10 ml 02/12/25 14:00 02/18/25 06:36 Central Line Flush IV PUSH 10 ml Q8HR HAIM Administration Sodium Chloride 10 ml 02/12/25 11:37 Central Line Flush IV PUSH PRN PRN with TPN bag changes Sodium Chloride 20 ml 02/12/25 11:37 Central Line Flush IV PUSH PRN PRN after blood draws Radiology Results: ITS Impressions Head CT 01/31/25 15:47 Impression: No acute intracranial hemorrhage or suspicious mass effect. Chest/Abdomen/Pelvis CTA 01/31/25 15:49 IMPRESSION: Right middle and lower lobe pneumonia with dense consolidation. Left basilar atelectasis. No pulmonary embolus. No aortic dissection. Oral contrast opacifies the entirety of the colon. Supportive lines in good position. No acute pathology within the remainder of the examination, as detailed above. Abdomen X-Ray 02/12/25 05:44 Impression: NG tube in satisfactory position. Venous Doppler Study 02/15/25 12:09 IMPRESSION: 1. No deep venous thrombosis in either lower limb. Chest X-Ray 02/18/25 08:04 IMPRESSION: No change from previous examination. Labs Labs: Laboratory Results - last 24 hr 02/17/25 02/17/25 02/18/25 16:52 23:46 03:18 WBC 6.3 RBC 2.77 L Hgb 8.3 L Hct 27.0 L MCV 97.5 MCH 30.0 MCHC 30.7 L RDW 16.3 H Plt Count 285 MPV 9.4 Puncture Site ABG pH ABG pCO2 ABG pO2 ABG PO2/FiO2 Ratio ABG HCO3 ABG O2 Saturation ABG O2 Content ABG Base Excess A-a Gradient Oxyhemoglobin Carboxyhemoglobin Methemoglobin Reduced Hemoglobin Total Hemoglobin O2 Delivery Device O2 Liters/Min Minute Volume Vent Rate Vent Mode FiO2 Tidal Volume PEEP Peak Inspir Pressure Pressure Support Sodium 144 Potassium 3.8 Chloride 106 Carbon Dioxide 30 Anion Gap 8 BUN 26 H Creatinine 0.48 L Estim Creat Clear Calc 57 Estimated GFR > 60 Glucose 100 POC Capillary Glucose 110 H 117 H Calcium 9.0 Magnesium 2.0 Total Bilirubin 0.3 AST 39 H ALT 33 Alkaline Phosphatase 95 Total Protein 7.0 Albumin 3.4 L 02/18/25 02/18/25 02/18/25 05:04 06:13 12:01 WBC RBC Hgb Hct MCV MCH MCHC RDW Plt Count MPV Puncture Site Right radial ABG pH 7.416 ABG pCO2 53.6 H ABG pO2 96.2 ABG PO2/FiO2 Ratio 3.21 ABG HCO3 33.7 H ABG O2 Saturation 97.3 ABG O2 Content 13.8 L ABG Base Excess 7.9 A-a Gradient 54.7 Oxyhemoglobin 97.0 Carboxyhemoglobin 0.2 Methemoglobin 0.0 Reduced Hemoglobin 2.8 Total Hemoglobin 10.0 L O2 Delivery Device Ventilator O2 Liters/Min Not Reportable Minute Volume Not Reportable Vent Rate 14 Vent Mode Cmv FiO2 30 Tidal Volume 300 PEEP 5 Peak Inspir Pressure Not Reportable Pressure Support Not Reportable Sodium Potassium Chloride Carbon Dioxide Anion Gap BUN Creatinine Estim Creat Clear Calc Estimated GFR Glucose POC Capillary Glucose 106 H 112 H Calcium Magnesium Total Bilirubin AST ALT Alkaline Phosphatase Total Protein Albumin
[2025-02-18] MEDS: polyethylene glycoL 3350 17 GM POWD.PACK PO (15:15)
[2025-02-18 18:12] LABS: Glucose Point of Care 105 mg/dl (65-105)
[2025-02-18] MEDS: risperiDONE 0.5 MG TABLET FEED TUBE (20:17)
[2025-02-19] VITALS (30 sets, daily range): BP systolic 117–144; BP diastolic 66–94; PULSE 92–116; RESP 14–18; TEMP 37.2–37.8; O2SAT 97–100
[2025-02-19 00:26] LABS: Glucose Point of Care 96 mg/dl (65-105)
[2025-02-19] MEDS: LEVALBUTEROL NEB 1.25 MG/3 ML 0.63 MG INHALATION ×4 (02:37→20:51)
[2025-02-19] MEDS: IPRATROPIUM BR 0.02% INH SOLN 0.5 MG/2.5 ML VIAL INHALATION ×4 (02:37→20:51)
[2025-02-19] MEDS: oxyCODONE (*CRX) 5 MG/5 ML ORAL SOLN IR FEED TUBE ×4 (03:33→20:01)
[2025-02-19] MEDS: PIPERACILLN/TAZ 3.375GM/NS50ML 3.375 GM/50 ML BAG IVPB ×4 (03:33→20:01)
[2025-02-19 05:22] LABS: Alveolar/Arterial O2 Gradient 51.2 mmHg; Base Excess ABG 4.5 mEq/l (+/-2.0); Carboxyhemoglobin 0.1 % THb (0-2.0); Fractional Inspired Oxygen 30 %; HCO3 ABG 30.5 mEq/l (22.0-26.0); Oxygen Content ABG 14.1 %vol (16.0-22.0); Oxygen Saturation ABG 97.4 % (95.0-100.0); Oxyhemoglobin 97.5 % THb (90.0-100.0); PCO2 ABG 52.9 mmHg (35.0-45.0); PO2 ABG 100.5 mmHg (80.0-100.0); PO2 FiO2 Ratio Arterial Blood 3.35 %; Reduced Hemoglobin 2.4 %THb (0-5.0); Total Hemoglobin 10.2 g/dL (12.0-18.0); pH ABG 7.379 (7.350-7.450)
[2025-02-19 05:23] LABS: Arterial Blood Gas Ventilator rate 14 /MIN; Device VENTILATOR; Modified Allen's Test Pass; Site Drawn RIGHT RADIAL
[2025-02-19 05:24] LABS: Arterial Blood Gas PEEP 5 cmH2O; Arterial Blood Gas Tidal Volume 300 ml; Arterial Blood Gas Vent Mode CMV
[2025-02-19] MEDS: CENTRAL LINE FLUSH 10 ML IV PUSH ×4 (05:36→20:01)
[2025-02-19 06:02] LABS: Hematocrit 27.5 % (37.0-47.0); Hemoglobin 8.5 g/dL (12.0-15.0); Mean Corpuscular HGB Conc 30.9 g/dl (32-36); Mean Corpuscular Hemoglobin 29.9 pg (26-34); Mean Corpuscular Volume 96.8 fl (80-100); Mean Platelet Volume 10.2 fl (7.4-10.4); Platelet Count Result 309 k/mm3 (150-375); Red Blood Count 2.84 M/mm3 (4.2-5.4); Red Cell Distribution Width 15.9 % (11.5-14.5); White Blood Count 6.1 K/mm3 (4.5-10.0)
[2025-02-19 06:17] LABS: Alanine Aminotransferase 30 U/L (6-35); Albumin Level 3.2 g/dL (3.5-5.1); Alkaline Phosphatase 82 U/L (38-126); Anion Gap 6 mmol/L (4-12); Aspartate Amino Transferase 33 U/L (14-36); Bilirubin,Total 0.3 mg/dL (0.2-1.3); Blood Urea Nitrogen 22 mg/dL (7-17); Carbon Dioxide 34 mmol/L (22-30); Chloride 105 mmol/L (98-107); Estimated CRCL calculation 65 ml/min; Estimated Glomerular Filt Rate > 60; Glucose 115 mg/dL (65-110); Magnesium 1.9 mg/dL (1.6-2.3); Potassium 3.2 mmol/L (3.4-5.0); Sodium 145 mmol/L (137-145)
--- NOTE | 2025-02-19 08:20 | WPDINTPN ---
Progress Note: A&P Assessment and Plan (1) Acute hypoxic respiratory failure: Code(s): J96.01 - Acute respiratory failure with hypoxia Status: Acute Assessment and Plan: 01/31/2025: Patient presented from [facility] with hypoxia, periods of apnea, and unresponsiveness. She was brought to the ED being bagged, she did not have a gag and was unresponsive in the ED so was intubated upon arrival to the ED. central line was also inserted as she was hypotensive CT scan showed right middle and right lower lobe consolidation. Since then patient has also received decent amount of IV fluids 02/05-accidentally got extubated during turning by the nursing staff. She was intubated 02/06 failed weaning trial. patient kept on going into apnea ventilation. Precedex rate was decreased and patient is now on ASV. 02/07 weaning trial was attempted again. Patient had high RSBI on PSV 03/19. Patient was erratically breathing agitated and had drop in sats. Breathing trial was aborted 02/08 failed weaning trial due to high RSBI 02/09 I attempted a SBT weaning trial this morning. On 03/19 patient respiratory rate was in 40s with tidal volume and 100s. I had to increase the pressure support to 12 to get adequate RSBI even then patient's breathing was at. patient is not a candidate for extubation at this point. She will not be able to use BiPAP considering cerebral palsy and inability to communicate. I will try to continue weaning but I anticipate that if patient does not get extubated then she may need trach for continued ventilatory support 02/10 patient failed weaning trial again due to respiratory rate in high 40s and tidal volumes in 100s.. She requires pressure support of 12/5 for adequate ventilatory numbers. She is not a candidate for BiPAP. I anticipate patient will likely need tracheostomy. I called his healthcare power assistant prosecuting attorney who is on vacation at this time I will speak him on Wednesday. 02/11 Lasix again today and plan for weaning trial again today 02/12 self-extubated. Patient was given opportunity to see if she can tolerate noninvasive oxygenation support. But patient was tachypneic with use of accessory muscle and had to be reintubated. Patient also had airway edema and was given dexamethasone At this point patient has failed multiple days of trial and is quite debilitated and weak and unable to come off the ventilator. I spoke to patient's healthcare power assistant prosecuting attorney Mateo Warren who regarding option of proceeding need tracheostomy and PEG tube placement for ongoing ventilator support. He is agreeable to proceed with both and consented. Consent was also obtained for a PICC line 02/16 ENT consulted and patient underwent tracheostomy 02/19 patient placed on PSV 10/5 but continued to had apnea episodes. Pressure support was increased to 15 with no benefit. Patient was placed back on CMV -currently on CMV mode of ventilation, peep of 5 and 30 % FiO2. Will try PSV again to -ABGs and chest x-ray reviewed, ventilator adjusted by decreasing the rate -continue bronchodilators and Mucomyst nebulizer -continue Zosyn for 7 days -IV Lasix (2) Sepsis: Qualifiers: Sepsis type: sepsis due to unspecified organism Sepsis acute organ dysfunction status: unspecified Qualified Code(s): A41.9 - Sepsis, unspecified organism Code(s): A41.9 - Sepsis, unspecified organism Status: Acute Assessment and Plan: Patient presented with altered mental status, hypoxia, apnea, pneumonia. Patient initially required vasopressors but now off 4/ low-grade fever overnight with increase tachycardia. Tachycardia could be secondary discontinuation of Precedex. WBC normal Chest x-ray shows clear lungs For limb sputum culture is negative, Arredondo catheter was, urinalysis reviewed and negative for nitrates or leukoesterase, pending blood cultures, low procalcitonin level Neg lower extremity Dopplers. Continue empiric antibiotics shows to cover for other etiologies like sinusitis (3) AMS (altered mental status): Qualifiers: Altered mental status type: unspecified Qualified Code(s): R41.82 - Altered mental status, unspecified Code(s): R41.82 - Altered mental status, unspecified Status: Acute Assessment and Plan: Encephalopathy could be related to hypoxia, hypercapnia, pneumonia/infection/hypotension, could be related to medication -head CT negative at the time of presentation -currently intubated Off continue [facility] -upon review of chart patient appears to be nonverbal at baseline and communicates her needs with gestures. She walks around in the hallways and is able to eat modified diet (4) Pneumonia: Qualifiers: Pneumonia type: due to unspecified organism Laterality: right Lung location: unspecified part of lung Qualified Code(s): J18.9 - Pneumonia, unspecified organism Code(s): J18.9 - Pneumonia, unspecified organism Status: Acute Assessment and Plan: Chest x-ray and CTA chest show right lower lobe consolidation -according the [facility] records: Repeat CT chest showed interval development of new airspace opacities raising concern for aspiration pneumonia. She was transition to Zosyn from cefepime. MBS performed on 01/26 at [facility] which showed no evidence of aspiration despite coughing especially with swallowing. - completed course of Zosyn, azithromycin (01/31) -MRSA screen is negative, vancomycin discontinued (02/01) (5) Cerebral palsy: Qualifiers: Cerebral palsy type: other type Qualified Code(s): G80.8 - Other cerebral palsy Code(s): G80.9 - Cerebral palsy, unspecified Status: Acute Assessment and Plan: Patient with cerebral palsy, mild intellectual disability, schizophrenia, nonverbal at baseline according the chart -patient on risperidone, will restart prior to extubation as she is currently sedated and intubated (6) Anemia: Qualifiers: Anemia type: unspecified type Qualified Code(s): D64.9 - Anemia, unspecified Code(s): D64.9 - Anemia, unspecified Status: Acute Assessment and Plan: Patient admitted with a hemoglobin of 10.3 on 01/31 -02/01: Hemoglobin dropped to 7.7, a repeat CBC was done which showed a hemoglobin of 7.3 -will check stools for occult blood, -folic acid and vitamin B12 level within normal limits -low iron levels, low TIBC, will give Venofer -LDH is normal, haptoglobin is pending -Protonix IV q.12 hours -continue to monitor (7) Electrolyte imbalance: Code(s): E87.8 - Other disorders of electrolyte and fluid balance, not elsewhere classified Status: Acute Assessment and Plan: Continue free water flush to 100 mL Replace low potassium (8) Sinus tachycardia: Code(s): R00.0 - Tachycardia, unspecified Status: Acute Assessment and Plan: 02/04: Patient developed SVT/sinus tachycardia overnight with rates in the 180-200s. Was given IV metoprolol x1 with improvement which brought her rate start to 130s. -could be multifactorial, related to sepsis, anemia, coronary artery disease -TSH normal -will continue metoprolol -currently sinus tachycardia monitor - mild elevation in troponin level with the levels have trended down -cardiology consult 02/02/2025: Echocardiogram Summary 1. Complete two-dimensional, color flow and Doppler transthoracic echocardiogram is performed. 2. Left ventricular chamber dimension is normal. 3. Left ventricular systolic function is normal, estimated at 60-65%. 4. The left ventricular diastolic function is grade I diastolic dysfunction. 5. E/e' 7 is not elevated. 6. There is mild aortic valve sclerosis. 7. There is trace tricuspid valve regurgitation. 8. Mild pulmonary hypertension, estimated pulmonary arterial systolic pressure is 41 mmHg. (9) Constipation: Qualifiers: Constipation type: unspecified constipation type Qualified Code(s): K59.00 - Constipation, unspecified Code(s): K59.00 - Constipation, unspecified Status: Acute Assessment and Plan: 02/04: KUB showed moderate fecal retention -improved with laxatives as patient is now having bowel movements. 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 I spoke to him this morning and we discussed patient's failure to wean. I discussed option of tracheostomy PEG tube and PICC line he is agreeable to proceed with all. I explained him that we may not have ENT coverage and we may have to transfer the patient very tracheostomy and he was agreeable to transfer to either [facility] or [facility] hospitals for the procedure if needed Patient now awaits placement at [facility] or [facility] Critical Care Time Spent: 30 minutes Due to a high probability of clinically significant, life threatening deterioration, the patient required my highest level of preparedness to intervene emergently and I personally spent this critical care time directly and personally managing the patient. This critical care time included obtaining a history; examining the patient; pulse oximetry; ordering and review of studies; arranging urgent treatment with development of a management plan; evaluation of patient's response to treatment; frequent reassessment; and discussions with other providers. It was exclusive of separately billable procedures and treating other patients and teaching time. Please see Assessment and Plan section and the rest of the note for further information on patient assessment and treatment This dictation may have been done utilizing a voice recognition system. Attempts have been made to correct errors. However, there may be uncorrected grammatical, spelling, and recognitions errors present. Subjective Date/time seen: 02/19/25 Overnight events reviewed. Afebrile this more Continues to be on mechanical ventilation 30% FiO2 Patient not on any continue sedation appears comfortable and awake Noted her head on calling her name but did not follow any commands. Does move her extremities spontaneously Other Vitals acceptable Tolerating tube feeds at goal Good urine output Interval history: Reason for consult: Acute respiratory failure, pneumonia, altered mental status, unresponsiveness, anemia 02/14 PEG tube insertion 02/16 tracheostomy Review of Systems Review of Systems: ROS unobtainable: Yes unobtainable due to endotracheal tube, unobtainable due to medical condition and unobtainable due to mental status Exam Narrative: General: Petite female/malnourished, in no acute distress HEENT:? Pupils are pinpoint, sluggish, tracheostomy in place Neck:? Supple Respiratory:? Coarse breath sounds bilaterally, rales on right base, no wheezing, adequate air entry otherwise Cardiac:? S1-S2 normal, regular rate and rhythm Abdomen:? Soft, nontender, nondistended, hypoactive bowel sounds, peg tube in place Extremities:? Trace edema, bilateral pedal pulses are palpable Neuro:? Intubated, her eyes are open. She noted her head on calling her name. She moves all 4 extremities but does not follow any commands with her extremities PERRL Skin:? No skin lesions noted Psych:? Unable to assess at this time Objective Data Vital Signs Vital Signs: Vital Signs - 24 hr 02/18/25 08:29 02/18/25 08:45 02/18/25 09:45 Temperature 37.9 C H 37.9 C H Pulse Rate 117 H Respiratory Rate Blood Pressure Pulse Oximetry Oxygen Delivery Fraction of Inspired Oxygen 02/18/25 10:00 02/18/25 10:00 02/18/25 10:34 Temperature 37.9 C H Pulse Rate 102 H 102 H 101 H Respiratory Rate 14 Blood Pressure 107/79 Pulse Oximetry 94 94 Oxygen Delivery Mechanical Ventilation Fraction of Inspired Oxygen 30 02/18/25 12:00 02/18/25 12:00 02/18/25 12:00 Temperature 38.1 C H Pulse Rate 108 H Respiratory Rate 18 Blood Pressure 110/73 Pulse Oximetry 94 94 Oxygen Delivery Mechanical Ventilation Fraction of Inspired Oxygen 30 30 02/18/25 12:00 02/18/25 14:00 02/18/25 14:00 Temperature Pulse Rate 107 H 113 H 113 H Respiratory Rate 18 Blood Pressure Pulse Oximetry 97 Oxygen Delivery Mechanical Ventilation Fraction of Inspired Oxygen 30 02/18/25 14:00 02/18/25 14:00 02/18/25 14:22 Temperature 37.7 C H Pulse Rate 107 H 107 H 112 H Respiratory Rate 18 18 Blood Pressure 110/68 Pulse Oximetry 95 Oxygen Delivery Fraction of Inspired Oxygen 02/18/25 16:00 02/18/25 16:00 02/18/25 16:00 Temperature 37.7 C H Pulse Rate 109 H Respiratory Rate 14 Blood Pressure 122/84 Pulse Oximetry 96 96 Oxygen Delivery Mechanical Ventilation Fraction of Inspired Oxygen 30 30 02/18/25 16:00 02/18/25 17:00 02/18/25 18:00 Temperature Pulse Rate 108 H 117 H 113 H Respiratory Rate Blood Pressure Pulse Oximetry 96 Oxygen Delivery Mechanical Ventilation Fraction of Inspired Oxygen 30 02/18/25 18:00 02/18/25 19:48 02/18/25 19:48 Temperature 37.7 C H Pulse Rate 113 H 109 H 109 H Respiratory Rate 18 15 Blood Pressure 138/81 Pulse Oximetry 96 95 Oxygen Delivery Mechanical Ventilation Fraction of Inspired Oxygen 30 02/18/25 20:00 02/18/25 20:00 02/18/25 20:00 Temperature 37.6 C H Pulse Rate 110 H 107 H Respiratory Rate 15 14 Blood Pressure 133/81 Pulse Oximetry 95 Oxygen Delivery Fraction of Inspired Oxygen 30 02/18/25 20:00 02/18/25 20:00 02/18/25 20:17 Temperature Pulse Rate 114 H 112 H Respiratory Rate Blood Pressure Pulse Oximetry 95 Oxygen Delivery Mechanical Ventilation Fraction of Inspired Oxygen 30 02/18/25 22:00 02/18/25 22:00 02/18/25 23:06 Temperature 37.6 C H Pulse Rate 93 93 96 Respiratory Rate 16 Blood Pressure 116/72 Pulse Oximetry 99 98 Oxygen Delivery Mechanical Ventilation Fraction of Inspired Oxygen 30 02/19/25 00:00 02/19/25 00:00 02/19/25 00:00 Temperature 37.3 C Pulse Rate 97 97 Respiratory Rate 15 Blood Pressure 117/66 Pulse Oximetry 99 Oxygen Delivery Fraction of Inspired Oxygen 30 02/19/25 00:00 02/19/25 02:00 02/19/25 02:00 Temperature 37.4 C Pulse Rate 108 H 108 H Respiratory Rate 16 Blood Pressure 125/82 Pulse Oximetry 99 98 Oxygen Delivery Mechanical Ventilation Fraction of Inspired Oxygen 30 02/19/25 02:37 02/19/25 02:39 02/19/25 04:00 Temperature Pulse Rate 102 H 102 H Respiratory Rate 14 Blood Pressure Pulse Oximetry 98 97 Oxygen Delivery Mechanical Ventilation Mechanical Ventilation Fraction of Inspired Oxygen 30 30 02/19/25 04:00 02/19/25 04:00 02/19/25 04:00 Temperature 37.3 C Pulse Rate 104 H 99 Respiratory Rate 14 Blood Pressure 124/75 Pulse Oximetry 97 Oxygen Delivery Fraction of Inspired Oxygen 30 02/19/25 05:05 02/19/25 06:00 02/19/25 06:00 Temperature 37.3 C Pulse Rate 99 102 H 107 H Respiratory Rate 16 Blood Pressure 130/81 Pulse Oximetry 98 98 Oxygen Delivery Mechanical Ventilation Fraction of Inspired Oxygen 30 02/19/25 07:00 02/19/25 07:55 02/19/25 07:58 Temperature 37.3 C Pulse Rate 106 H 109 H 109 H Respiratory Rate 16 17 Blood Pressure 144/87 H Pulse Oximetry 97 97 Oxygen Delivery Mechanical Ventilation Fraction of Inspired Oxygen 30 02/19/25 08:02 Temperature Pulse Rate 108 H Respiratory Rate 17 Blood Pressure Pulse Oximetry Oxygen Delivery Fraction of Inspired Oxygen Intake/Output Intake/Output: Intake & Output 02/16/25 02/17/25 02/18/25 02/19/25 23:59 23:59 23:59 23:59 Intake Total 1385.5 1951 2134 908 Output Total 1100 1425 1200 550 Balance 285.5 526 934 358 Meds/Results Medications: Active Medications Generic Name Dose Route Start Last Admin Trade Name Freq PRN Reason Stop Dose Admin Acetaminophen 650 mg 02/03/25 22:36 02/18/25 08:45 Acetaminophen Elixir 325 Mg/10.15 Ml Udc PO 650 mg Q6H PRN Administration Mild Pain (1-3) or Fever Dextrose 12.5 gm 02/01/25 07:23 02/11/25 23:40 Dextrose 50% 25 Gm/50 Ml Syringe IV PUSH 12.5 gm PRN PRN Administration Hypoglycemia Protocol Diazepam 5 mg 02/13/25 09:22 Diazepam (*Crx) 5 Mg Tablet FEED TUBE Q8H PRN Anxiety Enoxaparin Sodium 40 mg 02/07/25 09:00 02/15/25 08:29 Enoxaparin 40 Mg/0.4 Ml Syringe SUB-Q 40 mg DAILY HAIM Administration Fentanyl Citrate 25 mcg 02/13/25 09:23 Fentanyl Citrate Inj (*Crx) 100 Mcg/2 Ml Vial IV PUSH Q2H PRN Pain or discomfort on vent Furosemide 40 mg 02/19/25 12:00 Furosemide Inj 40 Mg/4 Ml Vial IV PUSH 02/19/25 12:01 ONCE ONE Glucagon 1 mg 02/01/25 07:23 Glucagon For Inj 1 Mg Vial IM PRN PRN Hypoglycemia Protocol Glucose 15 gm 02/01/25 07:23 Glucose Oral Gel 15 Gm Of Glucse In 37.5 Gm Tube PO PRN PRN Hypoglycemia Protocol Dextrose 1,000 mls @ 100 mls/hr 02/01/25 07:23 Dextrose 5% 1,000 Ml IVPB PRN PRN Hypoglycemia Protocol Piperacillin/Tazobactam/Dextrose 3.375 gm in 50 mls @ 100 mls/hr 02/15/25 09:00 02/19/25 04:03 Zosyn 3.375 Gm/Ns 50 Ml IVPB 02/22/25 08:59 Infused Q6H HAIM Infusion Insulin Aspart 3 - 6 units 02/01/25 12:00 02/19/25 06:30 Insulin Aspart (*Bkc) 100 Units/Ml SUB-Q Not Given Q6HR [facility] Protocol Ipratropium [place] 0.5 mg 02/04/25 14:00 02/19/25 07:49 Ipratropium Br 0.02% Inh Soln 0.5 Mg/2.5 Ml Vial INHALATION 0.5 mg Q6HRT HAIM Administration Labetalol HCl 20 mg 02/16/25 13:47 Labetalol Hcl Inj 100 Mg/20 Ml Vial IV PUSH Q4H PRN SBP > 160 and HR> 60 -1st choice Levalbuterol HCl 0.63 mg 02/04/25 14:00 02/19/25 07:49 Levalbuterol Neb 1.25 Mg/3 Ml INHALATION 0.63 mg Q6HRT HAIM Administration Lorazepam 2 mg 02/17/25 08:10 Lorazepam Inj (*Crx) 2 Mg/Ml Vial IV PUSH Q4H PRN Agitation on Vent Metoprolol Tartrate 5 mg 02/04/25 04:26 02/17/25 00:53 Metoprolol Tartrate Inj 5 Mg/5 Ml Vial IV PUSH 5 mg Q6H PRN Administration HR > 130 Metoprolol Tartrate 25 mg 02/12/25 09:00 02/18/25 20:17 Metoprolol Tartrate 25 Mg Tablet PO 25 mg Q12HR HAIM Administration Multi-Ingred Cream/Lotion/Oil/Oint 1 applic 02/01/25 21:00 02/18/25 20:18 Mineral Oil/White Petrolatum Ointment EACH EYE 1 applic Q12HR HAIM Administration Ondansetron HCl 4 mg 01/31/25 16:00 Ondansetron Inj 4 Mg/2 Ml Vial IV PUSH Q4H PRN Nausea Oxycodone HCl 5 mg 02/13/25 09:00 02/19/25 03:33 Oxycodone (*Crx) 5 Mg/5 Ml Oral Soln Ir FEED TUBE 5 mg Q6H HAIM Administration Pantoprazole Sodium 40 mg 02/01/25 09:00 02/18/25 20:18 Pantoprazole Sodium Iv 40 Mg Vial IV PUSH 40 mg Q12HR HAIM Administration Polyethylene Glycol 17 gm 02/08/25 10:41 02/18/25 15:15 Polyethylene Glycol 3350 17 Gm Powd.Pack PO 17 gm QAM PRN Administration constipation Potassium Chloride 40 meq 02/19/25 08:00 Potassium Chloride 20 Meq Packet (For Liquid) FEED TUBE 02/19/25 14:01 Q6H HAIM Risperidone 1 mg 02/12/25 09:00 02/18/25 20:17 Risperidone 1 Mg Tablet FEED TUBE 1 mg Q12HR HAIM Administration Risperidone 0.5 mg 02/12/25 21:00 02/18/25 20:17 Risperidone 0.5 Mg Tablet FEED TUBE 0.5 mg HS HAIM Administration Sodium Chloride 10 ml 02/12/25 14:00 02/19/25 05:36 Central Line Flush IV PUSH 10 ml Q8HR HAIM Administration Sodium Chloride 10 ml 02/12/25 11:37 Central Line Flush IV PUSH PRN PRN with TPN bag changes Sodium Chloride 20 ml 02/12/25 11:37 Central Line Flush IV PUSH PRN PRN after blood draws Radiology Results: ITS Impressions Head CT 01/31/25 15:47 Impression: No acute intracranial hemorrhage or suspicious mass effect. Chest/Abdomen/Pelvis CTA 01/31/25 15:49 IMPRESSION: Right middle and lower lobe pneumonia with dense consolidation. Left basilar atelectasis. No pulmonary embolus. No aortic dissection. Oral contrast opacifies the entirety of the colon. Supportive lines in good position. No acute pathology within the remainder of the examination, as detailed above. Abdomen X-Ray 02/12/25 05:44 Impression: NG tube in satisfactory position. Venous Doppler Study 02/15/25 12:09 IMPRESSION: 1. No deep venous thrombosis in either lower limb. Chest X-Ray 02/19/25 06:14 Impression: Clear lungs. Support tubes, as above. Elevated right hemidiaphragm. Labs Labs: Laboratory Results - last 24 hr 02/18/25 02/18/25 02/19/25 12:01 17:59 00:18 WBC RBC Hgb Hct MCV MCH MCHC RDW Plt Count MPV Puncture Site ABG pH ABG pCO2 ABG pO2 ABG PO2/FiO2 Ratio ABG HCO3 ABG O2 Saturation ABG O2 Content ABG Base Excess A-a Gradient Oxyhemoglobin Carboxyhemoglobin Methemoglobin Reduced Hemoglobin Total Hemoglobin O2 Delivery Device O2 Liters/Min Minute Volume Vent Rate Vent Mode FiO2 Tidal Volume PEEP Peak Inspir Pressure Pressure Support Sodium Potassium Chloride Carbon Dioxide Anion Gap BUN Creatinine Estim Creat Clear Calc Estimated GFR Glucose POC Capillary Glucose 112 H 105 96 Calcium Magnesium Total Bilirubin AST ALT Alkaline Phosphatase Total Protein Albumin 02/19/25 02/19/25 02/19/25 05:05 05:29 05:32 WBC 6.1 RBC 2.84 L Hgb 8.5 L Hct 27.5 L MCV 96.8 MCH 29.9 MCHC 30.9 L RDW 15.9 H Plt Count 309 MPV 10.2 Puncture Site Right radial ABG pH 7.379 ABG pCO2 52.9 H ABG pO2 100.5 H ABG PO2/FiO2 Ratio 3.35 ABG HCO3 30.5 H ABG O2 Saturation 97.4 ABG O2 Content 14.1 L ABG Base Excess 4.5 A-a Gradient 51.2 Oxyhemoglobin 97.5 Carboxyhemoglobin 0.1 Methemoglobin 0.0 Reduced Hemoglobin 2.4 Total Hemoglobin 10.2 L O2 Delivery Device Ventilator O2 Liters/Min Not Reportable Minute Volume Not Reportable Vent Rate 14 Vent Mode Cmv FiO2 30 Tidal Volume 300 PEEP 5 Peak Inspir Pressure Not Reportable Pressure Support Not Reportable Sodium 145 Potassium 3.2 L Chloride 105 Carbon Dioxide 34 H Anion Gap 6 BUN 22 H Creatinine 0.41 L Estim Creat Clear Calc 65 Estimated GFR > 60 Glucose 115 H POC Capillary Glucose Calcium 9.0 Magnesium 1.9 Total Bilirubin 0.3 AST 33 ALT 30 Alkaline Phosphatase 82 Total Protein 7.0 Albumin 3.2 L Quality VTE Prophylaxis VTE prophylaxis: mechanical ordered and pharmacologic ordered
[2025-02-19] MEDS: POTASSIUM CHLORIDE 20 MEQ PACKET (FOR LIQUID) 40 MEQ FEED TUBE ×2 (08:43→14:09)
[2025-02-19] MEDS: METOPROLOL TARTRATE 25 MG TABLET PO ×2 (08:44→20:01)
[2025-02-19] MEDS: PANTOPRAZOLE SODIUM IV 40 MG VIAL IV PUSH ×2 (08:44→20:01)
[2025-02-19] MEDS: MINERAL OIL/WHITE PETROLATUM OINTMENT 1 APPLIC EACH EYE ×2 (08:44→20:01)
[2025-02-19] MEDS: risperiDONE 1 MG TABLET FEED TUBE ×2 (08:44→20:01)
[2025-02-19] MEDS: ENOXAPARIN 40 MG/0.4 ML SYRINGE SUB-Q (08:44)
--- NOTE | 2025-02-19 10:18 | PCFNICU ---
ICU Rounding Note: Pt current nutrition is Vital AF 1.2 @ 50 ml/h with 30 ml water flushes q 4 h. Nutrition recommendation: No new nutrition recommendations. Continue current nutrition care plan and orders. Agree with orders Last recorded weight is 39.9 kg. Bowel Motility: +3 BMs 02/19/25 Labs Reviewed: Hgb 8.5, Hct 27.5, Alb 3.2, K+ 3.2, BUN 22, Cre 0.41, Glu 115 Meds Noted: Zofran, Zosyn, Protonix Skin: WNL Additional Notes: Trach and PEG inplace. Tolerating tube feedings. Sedation is off. Awaiting placement to [facility]. Tube feeding Vital AF 1.2 @ 50 ml/h meeting needs @ 33 kcal/kg and 2 g protein/kg. Adequate for needs. Agree with orders. Following daily in ICU rounds. Will monitor weight, labs, skin, diet orders, meds every Wednesday and Wednesday. .
[2025-02-19] MEDS: FUROSEMIDE INJ 40 MG/4 ML VIAL IV PUSH (11:36)
[2025-02-19 11:37] LABS: Glucose Point of Care 117 mg/dl (65-105)
--- NOTE | 2025-02-19 12:38 | P.PNIM_ITS ---
Progress Note: A&P Assessment and Plan (1) Acute hypoxic respiratory failure: Code(s): J96.01 - Acute respiratory failure with hypoxia Status: Acute Assessment and Plan: 01/31/2025: Patient presented from [facility] with hypoxia, periods of apnea, and unresponsiveness. She was brought to the ED being bagged, she did not have a gag and was unresponsive in the ED so was intubated upon arrival to the ED. central line was also inserted as she was hypotensive CT scan showed right middle and right lower lobe consolidation. 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 Patient initially required vasopressors but now off empiric antibiotics to cover for other etiologies Blood culture negative (3) AMS (altered mental status): Qualifiers: Altered mental status type: unspecified Qualified Code(s): R41.82 - Altered mental status, unspecified Code(s): R41.82 - Altered mental status, unspecified Status: Acute Assessment and Plan: Encephalopathy could be related to hypoxia, hypercapnia, pneumonia/infection/hypotension, could be related to medication -head CT negative at the time of presentation Remains intubated -upon review of chart patient appears to be nonverbal at baseline and communicates her needs with gestures. She walks around in the hallways and is able to eat modified diet (4) Pneumonia: Qualifiers: Pneumonia type: due to unspecified organism Laterality: right Lung location: unspecified part of lung Qualified Code(s): J18.9 - Pneumonia, unspecified organism Code(s): J18.9 - Pneumonia, unspecified organism Status: Acute Assessment and Plan: Chest x-ray and CTA chest show right lower lobe consolidation -according the [facility] records: Repeat CT chest showed interva l development of new airspace opacities raising concern for aspiration pneumonia. She was transition to Zosyn from cefepime. MBS performed on 01/26 at [facility] which showed no evidence of aspiration despite coughing especially with swallowing. completed course of Zosyn, azithromycin (01/31) -MRSA screen is negative, vancomycin discontinued (02/01) (5) Cerebral palsy: Qualifiers: Cerebral palsy type: other type Qualified Code(s): G80.8 - Other cerebral palsy Code(s): G80.9 - Cerebral palsy, unspecified Status: Acute Assessment and Plan: Patient with cerebral palsy, mild intellectual disability, schizophrenia, nonverbal at baseline according the chart -patient on risperidone at baseline (6) Anemia: Qualifiers: Anemia type: unspecified type Qualified Code(s): D64.9 - Anemia, unspecified Code(s): D64.9 - Anemia, unspecified Status: Acute Assessment and Plan: Patient admitted with a hemoglobin of 10.3 on 01/31 -02/01: Hemoglobin dropped to 7.7, a repeat CBC was done which showed a hemoglobin of 7.3 -will check stools for occult blood, -folic acid and vitamin B12 level within normal limits -low iron levels, low TIBC, will give Venofer -LDH is normal, haptoglobin is pending -Protonix IV q.12 hours -continue to monitor (7) Electrolyte imbalance: Code(s): E87.8 - Other disorders of electrolyte and fluid balance, not elsewhere classified Status: Acute Assessment and Plan: Continue free water flush to 100 mL Replace low potassium (8) Sinus tachycardia: Code(s): R00.0 - Tachycardia, unspecified Status: Acute Assessment and Plan: 02/04: Patient developed SVT/sinus tachycardia overnight with rates in the 180- 200s. Was given IV metoprolol x1 with improvement which brought her rate start to 130s. -could be multifactorial, related to sepsis, anemia, coronary artery disease -TSH normal -will continue metoprolol -currently sinus tachycardia monitor - mild elevation in troponin level with the levels have trended down -cardiology consult 02/02/2025: Echocardiogram Summary 1. Complete two-dimensional, color flow and Doppler transthoracic echocardiogram is performed. 2. Left ventricular chamber dimension is normal. 3. Left ventricular systolic function is normal, estimated at 60-65%. 4. The left ventricular diastolic function is grade I diastolic dysfunction. 5. E/e' 7 is not elevated. 6. There is mild aortic valve sclerosis. 7. There is trace tricuspid valve regurgitation. 8. Mild pulmonary hypertension, estimated pulmonary arterial systolic pressure is 41 mmHg. (9) Constipation: Qualifiers: Constipation type: unspecified constipation type Qualified Code(s): K59.00 - Constipation, unspecified Code(s): K59.00 - Constipation, unspecified Status: Acute Assessment and Plan: 02/04: KUB showed moderate fecal retention -improved with laxatives as patient is now having bowel movements. Continue Docusate sodium and senna and MiraLax Plan DVT prophylaxis: Lovenox Stress ulcer prophylaxis: Protonix IV q.12 hours Nutrition: PEG tube placed Tolerating tube feeds, patient on stool softener and MiraLax Patient continues to require hospitalization to ongoing respiratory issues Subjective Date/time seen: 02/19/25 12:38 Interval history: No overnight events. Discussed with nursing staff. Labs reviewed. Remains on vent. Review of Systems Review of Systems: ROS unobtainable: Yes unobtainable due to mental status Exam Narrative: General: Petite female/malnourished, in no acute distress HEENT:? Pupils are pinpoint, sluggish, tracheostomy in place Neck:? Supple Respiratory:? Coarse breath sounds bilaterally, rales on right base, no wheezing, adequate air entry otherwise Cardiac:? S1-S2 normal, regular rate and rhythm Abdomen:? Soft, nontender, nondistended, hypoactive bowel sounds, peg tube in place Extremities:? Trace edema, bilateral pedal pulses are palpable Neuro:? Intubated, sedated, Skin:? No skin lesions noted Psych:? Unable to assess at this time Objective Data Vital Signs Vital Signs: Vital Signs - 24 hr 02/18/25 14:00 02/18/25 14:00 02/18/25 14:00 Temperature Pulse Rate 113 H 113 H 107 H Respiratory Rate 18 Blood Pressure Pulse Oximetry 97 Oxygen Delivery Mechanical Ventilation Fraction of Inspired Oxygen 30 02/18/25 14:00 02/18/25 14:22 02/18/25 16:00 Temperature 99.9 F H Pulse Rate 107 H 112 H Respiratory Rate 18 18 Blood Pressure 110/68 Pulse Oximetry 95 96 Oxygen Delivery Mechanical Ventilation Fraction of Inspired Oxygen 30 02/18/25 16:00 02/18/25 16:00 02/18/25 16:00 Temperature 99.8 F H Pulse Rate 109 H 108 H Respiratory Rate 14 Blood Pressure 122/84 Pulse Oximetry 96 Oxygen Delivery Fraction of Inspired Oxygen 30 02/18/25 17:00 02/18/25 18:00 02/18/25 18:00 Temperature 99.8 F H Pulse Rate 117 H 113 H 113 H Respiratory Rate 18 Blood Pressure 138/81 Pulse Oximetry 96 96 Oxygen Delivery Mechanical Ventilation Fraction of Inspired Oxygen 30 02/18/25 19:48 02/18/25 19:48 02/18/25 20:00 Temperature Pulse Rate 109 H 109 H 110 H Respiratory Rate 15 15 Blood Pressure Pulse Oximetry 95 Oxygen Delivery Mechanical Ventilation Fraction of Inspired Oxygen 30 02/18/25 20:00 02/18/25 20:00 02/18/25 20:00 Temperature 99.7 F H Pulse Rate 107 H Respiratory Rate 14 Blood Pressure 133/81 Pulse Oximetry 95 95 Oxygen Delivery Mechanical Ventilation Fraction of Inspired Oxygen 30 30 02/18/25 20:00 02/18/25 20:17 02/18/25 22:00 Temperature 99.7 F H Pulse Rate 114 H 112 H 93 Respiratory Rate 16 Blood Pressure 116/72 Pulse Oximetry 99 Oxygen Delivery Fraction of Inspired Oxygen 02/18/25 22:00 02/18/25 23:06 02/19/25 00:00 Temperature Pulse Rate 93 96 Respiratory Rate Blood Pressure Pulse Oximetry 98 Oxygen Delivery Mechanical Ventilation Fraction of Inspired Oxygen 30 30 02/19/25 00:00 02/19/25 00:00 02/19/25 00:00 Temperature 99.2 F Pulse Rate 97 97 Respiratory Rate 15 Blood Pressure 117/66 Pulse Oximetry 99 99 Oxygen Delivery Mechanical Ventilation Fraction of Inspired Oxygen 30 02/19/25 02:00 02/19/25 02:00 02/19/25 02:37 Temperature 99.4 F Pulse Rate 108 H 108 H 102 H Respiratory Rate 16 14 Blood Pressure 125/82 Pulse Oximetry 98 Oxygen Delivery Fraction of Inspired Oxygen 02/19/25 02:39 02/19/25 04:00 02/19/25 04:00 Temperature Pulse Rate 102 H Respiratory Rate Blood Pressure Pulse Oximetry 98 97 Oxygen Delivery Mechanical Ventilation Mechanical Ventilation Fraction of Inspired Oxygen 30 30 30 02/19/25 04:00 02/19/25 04:00 02/19/25 05:05 Temperature 99.2 F Pulse Rate 104 H 99 99 Respiratory Rate 14 Blood Pressure 124/75 Pulse Oximetry 97 98 Oxygen Delivery Mechanical Ventilation Fraction of Inspired Oxygen 30 02/19/25 06:00 02/19/25 06:00 02/19/25 07:00 Temperature 99.1 F 99.2 F Pulse Rate 102 H 107 H 106 H Respiratory Rate 16 16 Blood Pressure 130/81 144/87 H Pulse Oximetry 98 97 Oxygen Delivery Fraction of Inspired Oxygen 02/19/25 07:55 02/19/25 07:58 02/19/25 08:00 Temperature 99.0 F Pulse Rate 109 H 109 H 109 H Respiratory Rate 17 15 Blood Pressure 131/87 Pulse Oximetry 97 98 Oxygen Delivery Mechanical Ventilation Fraction of Inspired Oxygen 30 02/19/25 08:00 02/19/25 08:00 02/19/25 08:00 Temperature Pulse Rate 105 H Respiratory Rate Blood Pressure Pulse Oximetry 98 Oxygen Delivery Mechanical Ventilation Fraction of Inspired Oxygen 30 30 02/19/25 08:02 02/19/25 08:44 02/19/25 10:00 Temperature Pulse Rate 108 H 116 H 105 H Respiratory Rate 17 Blood Pressure Pulse Oximetry Oxygen Delivery Fraction of Inspired Oxygen 02/19/25 10:00 02/19/25 11:00 02/19/25 12:00 Temperature 99.1 F Pulse Rate 105 H 106 H Respiratory Rate 18 Blood Pressure 144/86 H Pulse Oximetry 99 98 99 Oxygen Delivery Mechanical Ventilation Mechanical Ventilation Fraction of Inspired Oxygen 30 30 02/19/25 12:00 02/19/25 12:00 02/19/25 12:00 Temperature 99.9 F H Pulse Rate 107 H 103 H Respiratory Rate 17 Blood Pressure 133/94 H Pulse Oximetry 97 Oxygen Delivery Fraction of Inspired Oxygen 30 Intake/Output Intake/Output: Intake & Output 02/16/25 02/17/25 02/18/25 02/19/25 23:59 23:59 23:59 23:59 Intake Total 1385.5 1951 2134 958 Output Total 1100 1425 1200 550 Balance 285.5 526 934 408 Meds/Results Medications: Active Medications Generic Name Dose Route Start Last Admin Trade Name Freq PRN Reason Stop Dose Admin Acetaminophen 650 mg 02/03/25 22:36 02/18/25 08:45 Acetaminophen Elixir 325 Mg/10.15 Ml Udc PO 650 mg Q6H PRN Administration Mild Pain (1-3) or Fever Dextrose 12.5 gm 02/01/25 07:23 02/11/25 23:40 Dextrose 50% 25 Gm/50 Ml Syringe IV PUSH 12.5 gm PRN PRN Administration Hypoglycemia Protocol Diazepam 5 mg 02/13/25 09:22 Diazepam (*Crx) 5 Mg Tablet FEED TUBE Q8H PRN Anxiety Enoxaparin Sodium 40 mg 02/07/25 09:00 02/19/25 08:44 Enoxaparin 40 Mg/0.4 Ml Syringe SUB-Q 40 mg DAILY HAIM Administration Fentanyl Citrate 25 mcg 02/13/25 09:23 Fentanyl Citrate Inj (*Crx) 100 Mcg/2 Ml Vial IV PUSH Q2H PRN Pain or discomfort on vent Glucagon 1 mg 02/01/25 07:23 Glucagon For Inj 1 Mg Vial IM PRN PRN Hypoglycemia Protocol Glucose 15 gm 02/01/25 07:23 Glucose Oral Gel 15 Gm Of Glucse In 37.5 Gm Tube PO PRN PRN Hypoglycemia Protocol Dextrose 1,000 mls @ 100 mls/hr 02/01/25 07:23 Dextrose 5% 1,000 Ml IVPB PRN PRN Hypoglycemia Protocol Piperacillin/Tazobactam/Dextrose 3.375 gm in 50 mls @ 100 mls/hr 02/15/25 09:00 02/19/25 09:15 Zosyn 3.375 Gm/Ns 50 Ml IVPB 02/22/25 08:59 Infused Q6H HAIM Infusion Insulin Aspart 3 - 6 units 02/01/25 12:00 02/19/25 11:36 Insulin Aspart (*Bkc) 100 Units/Ml SUB-Q Not Given Q6HR [facility] Protocol Ipratropium [place] 0.5 mg 02/04/25 14:00 02/19/25 07:49 Ipratropium Br 0.02% Inh Soln 0.5 Mg/2.5 Ml Vial INHALATION 0.5 mg Q6HRT HAIM Administration Labetalol HCl 20 mg 02/16/25 13:47 Labetalol Hcl Inj 100 Mg/20 Ml Vial IV PUSH Q4H PRN SBP > 160 and HR> 60 -1st choice Levalbuterol HCl 0.63 mg 02/04/25 14:00 02/19/25 07:49 Levalbuterol Neb 1.25 Mg/3 Ml INHALATION 0.63 mg Q6HRT HAIM Administration Lorazepam 2 mg 02/17/25 08:10 Lorazepam Inj (*Crx) 2 Mg/Ml Vial IV PUSH Q4H PRN Agitation on Vent Metoprolol Tartrate 5 mg 02/04/25 04:26 02/17/25 00:53 Metoprolol Tartrate Inj 5 Mg/5 Ml Vial IV PUSH 5 mg Q6H PRN Administration HR > 130 Metoprolol Tartrate 25 mg 02/12/25 09:00 02/19/25 08:44 Metoprolol Tartrate 25 Mg Tablet PO 25 mg Q12HR HAIM Administration Multi-Ingred Cream/Lotion/Oil/Oint 1 applic 02/01/25 21:00 02/19/25 08:44 Mineral Oil/White Petrolatum Ointment EACH EYE 1 applic Q12HR HAIM Administration Ondansetron HCl 4 mg 01/31/25 16:00 Ondansetron Inj 4 Mg/2 Ml Vial IV PUSH Q4H PRN Nausea Oxycodone HCl 5 mg 02/13/25 09:00 02/19/25 08:44 Oxycodone (*Crx) 5 Mg/5 Ml Oral Soln Ir FEED TUBE 5 mg Q6H HAIM Administration Pantoprazole Sodium 40 mg 02/01/25 09:00 02/19/25 08:44 Pantoprazole Sodium Iv 40 Mg Vial IV PUSH 40 mg Q12HR HAIM Administration Polyethylene Glycol 17 gm 02/08/25 10:41 02/18/25 15:15 Polyethylene Glycol 3350 17 Gm Powd.Pack PO 17 gm QAM PRN Administration constipation Potassium Chloride 40 meq 02/19/25 08:00 02/19/25 08:43 Potassium Chloride 20 Meq Packet (For Liquid) FEED TUBE 02/19/25 14:01 40 meq Q6H HAIM Administration Risperidone 1 mg 02/12/25 09:00 02/19/25 08:44 Risperidone 1 Mg Tablet FEED TUBE 1 mg Q12HR HAIM Administration Risperidone 0.5 mg 02/12/25 21:00 02/18/25 20:17 Risperidone 0.5 Mg Tablet FEED TUBE 0.5 mg HS HAIM Administration Sodium Chloride 10 ml 02/12/25 14:00 02/19/25 05:36 Central Line Flush IV PUSH 10 ml Q8HR HIAM Administration Sodium Chloride 10 ml 02/12/25 11:37 Central Line Flush IV PUSH PRN PRN with TPN bag changes Sodium Chloride 20 ml 02/12/25 11:37 Central Line Flush IV PUSH PRN PRN after blood draws Radiology Results: ITS Impressions Head CT 01/31/25 15:47 Impression: No acute intracranial hemorrhage or suspicious mass effect. Chest/Abdomen/Pelvis CTA 01/31/25 15:49 IMPRESSION: Right middle and lower lobe pneumonia with dense consolidation. Left basilar atelectasis. No pulmonary embolus. No aortic dissection. Oral contrast opacifies the entirety of the colon. Supportive lines in good position. No acute pathology within the remainder of the examination, as detailed above. Abdomen X-Ray 02/12/25 05:44 Impression: NG tube in satisfactory position. Venous Doppler Study 02/15/25 12:09 IMPRESSION: 1. No deep venous thrombosis in either lower limb. Chest X-Ray 02/19/25 06:14 Impression: Clear lungs. Support tubes, as above. Elevated right hemidiaphragm. Labs Labs: Laboratory Results - last 24 hr 02/18/25 02/19/25 02/19/25 17:59 00:18 05:05 WBC RBC Hgb Hct MCV MCH MCHC RDW Plt Count MPV Puncture Site Right radial ABG pH 7.379 ABG pCO2 52.9 H ABG pO2 100.5 H ABG PO2/FiO2 Ratio 3.35 ABG HCO3 30.5 H ABG O2 Saturation 97.4 ABG O2 Content 14.1 L ABG Base Excess 4.5 A-a Gradient 51.2 Oxyhemoglobin 97.5 Carboxyhemoglobin 0.1 Methemoglobin 0.0 Reduced Hemoglobin 2.4 Total Hemoglobin 10.2 L O2 Delivery Device Ventilator O2 Liters/Min Not Reportable Minute Volume Not Reportable Vent Rate 14 Vent Mode Cmv FiO2 30 Tidal Volume 300 PEEP 5 Peak Inspir Pressure Not Reportable Pressure Support Not Reportable Sodium Potassium Chloride Carbon Dioxide Anion Gap BUN Creatinine Estim Creat Clear Calc Estimated GFR Glucose POC Capillary Glucose 105 96 Calcium Magnesium Total Bilirubin AST ALT Alkaline Phosphatase Total Protein Albumin 02/19/25 02/19/25 02/19/25 05:29 05:32 11:28 WBC 6.1 RBC 2.84 L Hgb 8.5 L Hct 27.5 L MCV 96.8 MCH 29.9 MCHC 30.9 L RDW 15.9 H Plt Count 309 MPV 10.2 Puncture Site ABG pH ABG pCO2 ABG pO2 ABG PO2/FiO2 Ratio ABG HCO3 ABG O2 Saturation ABG O2 Content ABG Base Excess A-a Gradient Oxyhemoglobin Carboxyhemoglobin Methemoglobin Reduced Hemoglobin Total Hemoglobin O2 Delivery Device O2 Liters/Min Minute Volume Vent Rate Vent Mode FiO2 Tidal Volume PEEP Peak Inspir Pressure Pressure Support Sodium 145 Potassium 3.2 L Chloride 105 Carbon Dioxide 34 H Anion Gap 6 BUN 22 H Creatinine 0.41 L Estim Creat Clear Calc 65 Estimated GFR > 60 Glucose 115 H POC Capillary Glucose 117 H Calcium 9.0 Magnesium 1.9 Total Bilirubin 0.3 AST 33 ALT 30 Alkaline Phosphatase 82 Total Protein 7.0 Albumin 3.2 L
[2025-02-19 17:47] LABS: Glucose Point of Care 115 mg/dl (65-105)
[2025-02-19] MEDS: risperiDONE 0.5 MG TABLET FEED TUBE (20:01)
[2025-02-20] VITALS (24 sets, daily range): BP systolic 109–132; BP diastolic 72–96; PULSE 98–117; RESP 14–20; TEMP 37.2–37.6; O2SAT 95–100
[2025-02-20 00:40] LABS: Glucose Point of Care 119 mg/dl (65-105)
[2025-02-20] MEDS: LEVALBUTEROL NEB 1.25 MG/3 ML 0.63 MG INHALATION ×4 (01:49→20:00)
[2025-02-20] MEDS: IPRATROPIUM BR 0.02% INH SOLN 0.5 MG/2.5 ML VIAL INHALATION ×4 (01:49→20:00)
[2025-02-20] MEDS: PIPERACILLN/TAZ 3.375GM/NS50ML 3.375 GM/50 ML BAG IVPB ×4 (03:53→20:01)
[2025-02-20] MEDS: oxyCODONE (*CRX) 5 MG/5 ML ORAL SOLN IR FEED TUBE ×4 (03:53→20:01)
[2025-02-20 05:39] LABS: Glucose Point of Care 105 mg/dl (65-105)
[2025-02-20] MEDS: CENTRAL LINE FLUSH 10 ML IV PUSH ×3 (05:58→20:01)
--- NOTE | 2025-02-20 08:19 | WPDINTPN ---
Progress Note: A&P Assessment and Plan (1) Acute hypoxic respiratory failure: Code(s): J96.01 - Acute respiratory failure with hypoxia Status: Acute Assessment and Plan: 01/31/2025: Patient presented from [facility] with hypoxia, periods of apnea, and unresponsiveness. She was brought to the ED being bagged, she did not have a gag and was unresponsive in the ED so was intubated upon arrival to the ED. central line was also inserted as she was hypotensive CT scan showed right middle and right lower lobe consolidation. Since then patient has also received decent amount of IV fluids 02/05-accidentally got extubated during turning by the nursing staff. She was intubated 02/06 failed weaning trial. patient kept on going into apnea ventilation. Precedex rate was decreased and patient is now on ASV. 02/07 weaning trial was attempted again. Patient had high RSBI on PSV 03/19. Patient was erratically breathing agitated and had drop in sats. Breathing trial was aborted 02/08 failed weaning trial due to high RSBI 02/09 I attempted a SBT weaning trial this morning. On 03/19 patient respiratory rate was in 40s with tidal volume and 100s. I had to increase the pressure support to 12 to get adequate RSBI even then patient's breathing was at. patient is not a candidate for extubation at this point. She will not be able to use BiPAP considering cerebral palsy and inability to communicate. I will try to continue weaning but I anticipate that if patient does not get extubated then she may need trach for continued ventilatory support 02/10 patient failed weaning trial again due to respiratory rate in high 40s and tidal volumes in 100s.. She requires pressure support of 12/5 for adequate ventilatory numbers. She is not a candidate for BiPAP. I anticipate patient will likely need tracheostomy. I called his healthcare power assistant district attorney who is on vacation at this time I will speak him on Wednesday. 02/11 Lasix again today and plan for weaning trial again today 02/12 self-extubated. Patient was given opportunity to see if she can tolerate noninvasive oxygenation support. But patient was tachypneic with use of accessory muscle and had to be reintubated. Patient also had airway edema and was given dexamethasone At this point patient has failed multiple days of trial and is quite debilitated and weak and unable to come off the ventilator. I spoke to patient's healthcare power assistant district attorney Mateo Warren who regarding option of proceeding need tracheostomy and PEG tube placement for ongoing ventilator support. He is agreeable to proceed with both and consented. Consent was also obtained for a PICC line 02/16 ENT consulted and patient underwent tracheostomy 02/19 patient placed on PSV 10/5 but continued to had apnea episodes. Pressure support was increased to 15 with no benefit. Patient was placed back on CMV -currently on CMV mode of ventilation, peep of 5 and 30 % FiO2. Will try PSV again to -ABGs and chest x-ray reviewed, ventilator adjusted by decreasing the rate -continue bronchodilators and Mucomyst nebulizer -continue Zosyn for 7 days -IV Lasix was given yesterday (2) Sepsis: Qualifiers: Sepsis acute organ dysfunction status: unspecified Sepsis type: sepsis due to unspecified organism Qualified Code(s): A41.9 - Sepsis, unspecified organism Code(s): A41.9 - Sepsis, unspecified organism Status: Acute Assessment and Plan: Patient presented with altered mental status, hypoxia, apnea, pneumonia. Patient initially required vasopressors but now off 02/13 low-grade fever overnight with increase tachycardia. Tachycardia could be secondary discontinuation of Precedex. WBC normal Chest x-ray shows clear lungs For limb sputum culture is negative, Arredondo catheter was, urinalysis reviewed and negative for nitrates or leukoesterase, pending blood cultures, low procalcitonin level Neg lower extremity Dopplers. Continue empiric antibiotics shows to cover for other etiologies like sinusitis (3) AMS (altered mental status): Qualifiers: Altered mental status type: unspecified Qualified Code(s): R41.82 - Altered mental status, unspecified Code(s): R41.82 - Altered mental status, unspecified Status: Acute Assessment and Plan: Encephalopathy could be related to hypoxia, hypercapnia, pneumonia/infection/hypotension, could be related to medication -head CT negative at the time of presentation -currently intubated Off [facility] -upon review of chart patient appears to be nonverbal at baseline and communicates her needs with gestures. She walks around in the hallways and is able to eat modified diet (4) Pneumonia: Qualifiers: Laterality: right Lung location: unspecified part of lung Pneumonia type: due to unspecified organism Qualified Code(s): J18.9 - Pneumonia, unspecified organism Code(s): J18.9 - Pneumonia, unspecified organism Status: Acute Assessment and Plan: Chest x-ray and CTA chest show right lower lobe consolidation -according the [facility] records: Repeat CT chest showed interval development of new airspace opacities raising concern for aspiration pneumonia. She was transition to Zosyn from cefepime. MBS performed on 01/26 at [facility] which showed no evidence of aspiration despite coughing especially with swallowing. - completed course of Zosyn, azithromycin (01/31) -MRSA screen is negative, vancomycin discontinued (02/01) (5) Cerebral palsy: Qualifiers: Cerebral palsy type: other type Qualified Code(s): G80.8 - Other cerebral palsy Code(s): G80.9 - Cerebral palsy, unspecified Status: Acute Assessment and Plan: Patient with cerebral palsy, mild intellectual disability, schizophrenia, nonverbal at baseline according the chart -patient on risperidone, will restart prior to extubation as she is currently sedated and intubated (6) Anemia: Qualifiers: Anemia type: unspecified type Qualified Code(s): D64.9 - Anemia, unspecified Code(s): D64.9 - Anemia, unspecified Status: Acute Assessment and Plan: Patient admitted with a hemoglobin of 10.3 on 01/31 -02/01: Hemoglobin dropped to 7.7, a repeat CBC was done which showed a hemoglobin of 7.3 -will check stools for occult blood, -folic acid and vitamin B12 level within normal limits -low iron levels, low TIBC, will give Venofer -LDH is normal, haptoglobin is pending -Protonix IV q.12 hours -continue to monitor (7) Electrolyte imbalance: Code(s): E87.8 - Other disorders of electrolyte and fluid balance, not elsewhere classified Status: Acute Assessment and Plan: Labs ordered and pending (8) Sinus tachycardia: Code(s): R00.0 - Tachycardia, unspecified Status: Acute Assessment and Plan: 02/04: Patient developed SVT/sinus tachycardia overnight with rates in the 180-200s. Was given IV metoprolol x1 with improvement which brought her rate start to 130s. -could be multifactorial, related to sepsis, anemia, coronary artery disease -TSH normal -will continue metoprolol -currently sinus tachycardia monitor - mild elevation in troponin level with the levels have trended down -cardiology consult 02/02/2025: Echocardiogram Summary 1. Complete two-dimensional, color flow and Doppler transthoracic echocardiogram is performed. 2. Left ventricular chamber dimension is normal. 3. Left ventricular systolic function is normal, estimated at 60-65%. 4. The left ventricular diastolic function is grade I diastolic dysfunction. 5. E/e' 7 is not elevated. 6. There is mild aortic valve sclerosis. 7. There is trace tricuspid valve regurgitation. 8. Mild pulmonary hypertension, estimated pulmonary arterial systolic pressure is 41 mmHg. (9) Constipation: Qualifiers: Constipation type: unspecified constipation type Qualified Code(s): K59.00 - Constipation, unspecified Code(s): K59.00 - Constipation, unspecified Status: Acute Assessment and Plan: 02/04: KUB showed moderate fecal retention -improved with laxatives as patient is now having bowel movements. 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 I spoke to him this morning and we discussed patient's failure to wean. I discussed option of tracheostomy PEG tube and PICC line he is agreeable to proceed with all. I explained him that we may not have ENT coverage and we may have to transfer the patient very tracheostomy and he was agreeable to transfer to either [facility] or [facility] hospitals for the procedure if needed Patient now awaits placement at LTAC or snf at this point Critical Care Time Spent: 30 minutes Due to a high probability of clinically significant, life threatening deterioration, the patient required my highest level of preparedness to intervene emergently and I personally spent this critical care time directly and personally managing the patient. This critical care time included obtaining a history; examining the patient; pulse oximetry; ordering and review of studies; arranging urgent treatment with development of a management plan; evaluation of patient's response to treatment; frequent reassessment; and discussions with other providers. It was exclusive of separately billable procedures and treating other patients and teaching time. Please see Assessment and Plan section and the rest of the note for further information on patient assessment and treatment This dictation may have been done utilizing a voice recognition system. Attempts have been made to correct errors. However, there may be uncorrected grammatical, spelling, and recognitions errors present. Subjective Date/time seen: 02/20/25 Overnight events reviewed. Afebrile Continues to be on mechanical ventilation 30% FiO2 No significant change. Patient opens her eyes on calling her name moves everything but does not follow any commands consistently Other Vitals acceptable Interval history: Reason for consult: Acute respiratory failure, pneumonia, altered mental status, unresponsiveness, anemia 02/14 PEG tube insertion 02/16 tracheostomy Review of Systems Review of Systems: ROS unobtainable: Yes unobtainable due to endotracheal tube, unobtainable due to medical condition and unobtainable due to mental status Exam Narrative: General: Petite female/malnourished, in no acute distress HEENT:? Pupils are pinpoint, sluggish, tracheostomy in place Neck:? Supple Respiratory:? Coarse breath sounds bilaterally, rales on right base, no wheezing, adequate air entry otherwise Cardiac:? S1-S2 normal, regular rate and rhythm Abdomen:? Soft, nontender, nondistended, hypoactive bowel sounds, peg tube in place Extremities:? Trace edema, bilateral pedal pulses are palpable Neuro:? Intubated, her eyes are open. She noted her head on calling her name. She moves all 4 extremities but does not follow any commands with her extremities PERRL Skin:? No skin lesions noted Psych:? Unable to assess at this time Objective Data Vital Signs Vital Signs: Vital Signs - 24 hr 02/19/25 08:44 02/19/25 10:00 02/19/25 10:00 Temperature 37.3 C Pulse Rate 116 H 105 H 105 H Respiratory Rate 18 Blood Pressure 144/86 H Pulse Oximetry 99 Oxygen Delivery Fraction of Inspired Oxygen 02/19/25 11:00 02/19/25 12:00 02/19/25 12:00 Temperature Pulse Rate 106 H Respiratory Rate Blood Pressure Pulse Oximetry 98 99 Oxygen Delivery Mechanical Ventilation Mechanical Ventilation Fraction of Inspired Oxygen 30 30 30 02/19/25 12:00 02/19/25 12:00 02/19/25 13:55 Temperature 37.7 C H Pulse Rate 107 H 103 H 111 H Respiratory Rate 17 18 Blood Pressure 133/94 H Pulse Oximetry 97 Oxygen Delivery Fraction of Inspired Oxygen 02/19/25 13:56 02/19/25 14:00 02/19/25 14:00 Temperature Pulse Rate 103 H 103 H 103 H Respiratory Rate 15 Blood Pressure Pulse Oximetry 97 Oxygen Delivery Mechanical Ventilation Fraction of Inspired Oxygen 30 02/19/25 14:00 02/19/25 16:00 02/19/25 16:00 Temperature 37.7 C H Pulse Rate 102 H Respiratory Rate 16 Blood Pressure 131/86 Pulse Oximetry 97 99 Oxygen Delivery Mechanical Ventilation Fraction of Inspired Oxygen 30 30 02/19/25 16:00 02/19/25 16:00 02/19/25 17:49 Temperature 37.6 C Pulse Rate 107 H 109 H 109 H Respiratory Rate 16 Blood Pressure 123/83 Pulse Oximetry 97 97 Oxygen Delivery Mechanical Ventilation Fraction of Inspired Oxygen 30 02/19/25 18:00 02/19/25 18:00 02/19/25 19:40 Temperature 37.8 C H Pulse Rate 116 H 116 H Respiratory Rate 16 Blood Pressure 122/80 Pulse Oximetry 100 97 Oxygen Delivery Mechanical Ventilation Fraction of Inspired Oxygen 30 02/19/25 19:40 02/19/25 20:00 02/19/25 20:00 Temperature 37.6 C H Pulse Rate 113 H 113 H Respiratory Rate 18 Blood Pressure 124/86 Pulse Oximetry 97 Oxygen Delivery Fraction of Inspired Oxygen 30 02/19/25 20:01 02/19/25 20:51 02/19/25 20:53 Temperature Pulse Rate 111 H 93 95 Respiratory Rate 14 Blood Pressure Pulse Oximetry 97 Oxygen Delivery Mechanical Ventilation Fraction of Inspired Oxygen 30 02/19/25 21:02 02/19/25 22:00 02/19/25 22:00 Temperature 37.7 C H Pulse Rate 92 104 H 104 H Respiratory Rate 14 18 Blood Pressure 121/80 Pulse Oximetry 97 Oxygen Delivery Fraction of Inspired Oxygen 02/19/25 22:46 02/20/25 00:00 02/20/25 00:00 Temperature Pulse Rate 107 H Respiratory Rate Blood Pressure Pulse Oximetry 97 98 Oxygen Delivery Mechanical Ventilation Mechanical Ventilation Fraction of Inspired Oxygen 30 30 30 02/20/25 00:00 02/20/25 00:00 02/20/25 01:50 Temperature 37.4 C Pulse Rate 109 H 109 H 106 H Respiratory Rate 18 16 Blood Pressure 127/82 Pulse Oximetry 99 Oxygen Delivery Fraction of Inspired Oxygen 02/20/25 01:53 02/20/25 02:00 02/20/25 02:00 Temperature 37.3 C Pulse Rate 111 H 110 H 114 H Respiratory Rate 16 Blood Pressure 124/82 Pulse Oximetry 100 97 Oxygen Delivery Mechanical Ventilation Fraction of Inspired Oxygen 30 02/20/25 02:01 02/20/25 04:00 02/20/25 04:00 Temperature Pulse Rate 108 H Respiratory Rate 19 Blood Pressure Pulse Oximetry 96 Oxygen Delivery Mechanical Ventilation Fraction of Inspired Oxygen 30 30 02/20/25 04:00 02/20/25 04:00 02/20/25 05:02 Temperature 37.3 C Pulse Rate 103 H 103 H 112 H Respiratory Rate 15 Blood Pressure 127/83 Pulse Oximetry 95 98 Oxygen Delivery Mechanical Ventilation Fraction of Inspired Oxygen 30 02/20/25 05:59 02/20/25 06:00 02/20/25 07:47 Temperature 37.3 C Pulse Rate 110 H 110 H 110 H Respiratory Rate 18 14 Blood Pressure 132/96 H Pulse Oximetry 97 Oxygen Delivery Fraction of Inspired Oxygen 02/20/25 07:51 Temperature Pulse Rate 110 H Respiratory Rate Blood Pressure Pulse Oximetry 97 Oxygen Delivery Mechanical Ventilation Fraction of Inspired Oxygen 30 Intake/Output Intake/Output: Intake & Output 02/17/25 02/18/25 02/19/25 02/20/25 23:59 23:59 23:59 23:59 Intake Total 1951 2134 2020 905 Output Total 1425 1200 2550 650 Balance 526 934 -530 255 Meds/Results Medications: Active Medications Generic Name Dose Route Start Last Admin Trade Name Freq PRN Reason Stop Dose Admin Acetaminophen 650 mg 02/03/25 22:36 02/18/25 08:45 Acetaminophen Elixir 325 Mg/10.15 Ml Udc PO 650 mg Q6H PRN Administration Mild Pain (1-3) or Fever Dextrose 12.5 gm 02/01/25 07:23 02/11/25 23:40 Dextrose 50% 25 Gm/50 Ml Syringe IV PUSH 12.5 gm PRN PRN Administration Hypoglycemia Protocol Diazepam 5 mg 02/13/25 09:22 Diazepam (*Crx) 5 Mg Tablet FEED TUBE Q8H PRN Anxiety Enoxaparin Sodium 40 mg 02/07/25 09:00 02/19/25 08:44 Enoxaparin 40 Mg/0.4 Ml Syringe SUB-Q 40 mg DAILY HAIM Administration Fentanyl Citrate 25 mcg 02/13/25 09:23 Fentanyl Citrate Inj (*Crx) 100 Mcg/2 Ml Vial IV PUSH Q2H PRN Pain or discomfort on vent Glucagon 1 mg 02/01/25 07:23 Glucagon For Inj 1 Mg Vial IM PRN PRN Hypoglycemia Protocol Glucose 15 gm 02/01/25 07:23 Glucose Oral Gel 15 Gm Of Glucse In 37.5 Gm Tube PO PRN PRN Hypoglycemia Protocol Dextrose 1,000 mls @ 100 mls/hr 02/01/25 07:23 Dextrose 5% 1,000 Ml IVPB PRN PRN Hypoglycemia Protocol Piperacillin/Tazobactam/Dextrose 3.375 gm in 50 mls @ 100 mls/hr 02/15/25 09:00 02/20/25 04:23 Zosyn 3.375 Gm/Ns 50 Ml IVPB 02/22/25 08:59 Infused Q6H HAIM Infusion Insulin Aspart 3 - 6 units 02/01/25 12:00 02/20/25 05:58 Insulin Aspart (*Bkc) 100 Units/Ml SUB-Q Not Given Q6HR [facility] Protocol Ipratropium [place] 0.5 mg 02/04/25 14:00 02/20/25 07:47 Ipratropium Br 0.02% Inh Soln 0.5 Mg/2.5 Ml Vial INHALATION 0.5 mg Q6HRT [facility] Administration Labetalol HCl 20 mg 02/16/25 13:47 Labetalol Hcl Inj 100 Mg/20 Ml Vial IV PUSH Q4H PRN SBP > 160 and HR> 60 -1st choice Levalbuterol HCl 0.63 mg 02/04/25 14:00 02/20/25 07:47 Levalbuterol Neb 1.25 Mg/3 Ml INHALATION 0.63 mg Q6HRT [facility]IM Administration Lorazepam 2 mg 02/17/25 08:10 Lorazepam Inj (*Crx) 2 Mg/Ml Vial IV PUSH Q4H PRN Agitation on Vent Metoprolol Tartrate 5 mg 02/04/25 04:26 02/17/25 00:53 Metoprolol Tartrate Inj 5 Mg/5 Ml Vial IV PUSH 5 mg Q6H PRN Administration HR > 130 Metoprolol Tartrate 25 mg 02/12/25 09:00 02/19/25 20:01 Metoprolol Tartrate 25 Mg Tablet PO 25 mg Q12HR HAIM Administration Multi-Ingred Cream/Lotion/Oil/Oint 1 applic 02/01/25 21:00 02/19/25 20:01 Mineral Oil/White Petrolatum Ointment EACH EYE 1 applic Q12HR [facility]IM Administration Ondansetron HCl 4 mg 01/31/25 16:00 Ondansetron Inj 4 Mg/2 Ml Vial IV PUSH Q4H PRN Nausea Oxycodone HCl 5 mg 02/13/25 09:00 02/20/25 03:53 Oxycodone (*Crx) 5 Mg/5 Ml Oral Soln Ir FEED TUBE 5 mg Q6H HAIM Administration Pantoprazole Sodium 40 mg 02/01/25 09:00 02/19/25 20:01 Pantoprazole Sodium Iv 40 Mg Vial IV PUSH 40 mg Q12HR [facility]IM Administration Polyethylene Glycol 17 gm 02/08/25 10:41 02/18/25 15:15 Polyethylene Glycol 3350 17 Gm Powd.Pack PO 17 gm QAM PRN Administration constipation Risperidone 1 mg 02/12/25 09:00 02/19/25 20:01 Risperidone 1 Mg Tablet FEED TUBE 1 mg Q12HR HAIM Administration Risperidone 0.5 mg 02/12/25 21:00 02/19/25 20:01 Risperidone 0.5 Mg Tablet FEED TUBE 0.5 mg HS HAIM Administration Sodium Chloride 10 ml 02/12/25 14:00 02/20/25 05:58 Central Line Flush IV PUSH 10 ml Q8HR HAIM Administration Sodium Chloride 10 ml 02/12/25 11:37 Central Line Flush IV PUSH PRN PRN with TPN bag changes Sodium Chloride 20 ml 02/12/25 11:37 Central Line Flush IV PUSH PRN PRN after blood draws Radiology Results: ITS Impressions Head CT 01/31/25 15:47 Impression: No acute intracranial hemorrhage or suspicious mass effect. Chest/Abdomen/Pelvis CTA 01/31/25 15:49 IMPRESSION: Right middle and lower lobe pneumonia with dense consolidation. Left basilar atelectasis. No pulmonary embolus. No aortic dissection. Oral contrast opacifies the entirety of the colon. Supportive lines in good position. No acute pathology within the remainder of the examination, as detailed above. Abdomen X-Ray 02/12/25 05:44 Impression: NG tube in satisfactory position. Venous Doppler Study 02/15/25 12:09 IMPRESSION: 1. No deep venous thrombosis in either lower limb. Chest X-Ray 02/19/25 06:14 Impression: Clear lungs. Support tubes, as above. Elevated right hemidiaphragm. Labs Labs: Laboratory Results - last 24 hr 02/19/25 02/19/25 02/20/25 11:28 17:33 00:38 POC Capillary Glucose 117 H 115 H 119 H 02/20/25 05:36 POC Capillary Glucose 105 Quality VTE Prophylaxis VTE prophylaxis: mechanical ordered and pharmacologic ordered
[2025-02-20 08:30] LABS: Anion Gap 4 mmol/L (4-12); Blood Urea Nitrogen 27 mg/dL (7-17); Calcium 9.1 mg/dL (8.4-10.2); Carbon Dioxide 38 mmol/L (22-30); Chloride 103 mmol/L (98-107); Estimated CRCL calculation 66 ml/min; Estimated Glomerular Filt Rate > 60; Glucose 116 mg/dL (65-110); Potassium 3.4 mmol/L (3.4-5.0); Sodium 145 mmol/L (137-145)
[2025-02-20] MEDS: METOPROLOL TARTRATE 25 MG TABLET PO ×2 (08:31→20:00)
[2025-02-20] MEDS: ENOXAPARIN 40 MG/0.4 ML SYRINGE SUB-Q (08:31)
[2025-02-20] MEDS: MINERAL OIL/WHITE PETROLATUM OINTMENT 1 APPLIC EACH EYE ×2 (08:32→20:01)
[2025-02-20] MEDS: risperiDONE 1 MG TABLET FEED TUBE ×2 (08:32→20:00)
[2025-02-20] MEDS: PANTOPRAZOLE SODIUM IV 40 MG VIAL IV PUSH ×2 (08:32→20:01)
[2025-02-20] MEDS: POTASSIUM CHLORIDE 20 MEQ PACKET (FOR LIQUID) 40 MEQ PO (10:27)
--- NOTE | 2025-02-20 10:38 | PCNFU ---
Nutrition Follow-Up Complete: Inadequate Oral Intake as related to mechanical ventilation as evidenced by NPO. Goal: Meet estimated nutritional needs. Patient is meeting goal. Pt current nutrition is Vital AF 1.2 at 50 ml/hr with Jesus BID and Prosource once daily. Last recorded weight is 38.5 kg, stable. Bowel Motility: FMS Labs Reviewed:Glu 116, Cr 0.39, BUN 27, Alb 3.2, Hct 27.5, Hgb 8.5 Meds Noted:Zosyn, Protonix, Lovenox. Skin: WNL Additional Notes: Patient remains on tube feedings of Vital AF 1.2 at 50 ml/hr with protein modular of Prosource daily. No sedation. Total Nutrition: 1400 kcal/103 gm protein/892 ml water. Flush 100 ml q 4 hours. Tube feedings meeting 100% kcal needs at 35 kcal/kg and 100% protein needs at 2.6 gm/kg. Agree with diet orders. Will monitor weight, labs, skin, diet orders, meds every Wednesday and Wednesday.
[2025-02-20 12:23] LABS: Glucose Point of Care 128 mg/dl (65-105)
--- NOTE | 2025-02-20 12:56 | PM.EVENT ---
Event Note Event Note Event Note: Patient is going to select facility at [facility]. Spoke to accepting provider Nuha Ambrosio and signed out patient.
--- NOTE | 2025-02-20 13:07 | PM.DS ---
DS: Admitting Diagnosis Discharge Date 02/20/2025 Admitting Diagnosis Respiratory failure DS: Discharge Diagnosis Discharge Diagnosis (1) Acute hypoxic respiratory failure: Code(s): J96.01 - Acute respiratory failure with hypoxia Status: Acute (2) Sepsis: Qualifiers: Sepsis acute organ dysfunction status: unspecified Sepsis type: sepsis due to unspecified organism Qualified Code(s): A41.9 - Sepsis, unspecified organism Code(s): A41.9 - Sepsis, unspecified organism Status: Acute (3) AMS (altered mental status): Qualifiers: Altered mental status type: unspecified Qualified Code(s): R41.82 - Altered mental status, unspecified Code(s): R41.82 - Altered mental status, unspecified Status: Acute (4) Pneumonia: Qualifiers: Laterality: right Lung location: unspecified part of lung Pneumonia type: due to unspecified organism Qualified Code(s): J18.9 - Pneumonia, unspecified organism Code(s): J18.9 - Pneumonia, unspecified organism Status: Acute (5) Cerebral palsy: Qualifiers: Cerebral palsy type: other type Qualified Code(s): G80.8 - Other cerebral palsy Code(s): G80.9 - Cerebral palsy, unspecified Status: Acute (6) Anemia: Qualifiers: Anemia type: unspecified type Qualified Code(s): D64.9 - Anemia, unspecified Code(s): D64.9 - Anemia, unspecified Status: Acute (7) Electrolyte imbalance: Code(s): E87.8 - Other disorders of electrolyte and fluid balance, not elsewhere classified Status: Acute (8) Sinus tachycardia: Code(s): R00.0 - Tachycardia, unspecified Status: Acute (9) Constipation: Qualifiers: Constipation type: unspecified constipation type Qualified Code(s): K59.00 - Constipation, unspecified Code(s): K59.00 - Constipation, unspecified Status: Acute DS: Summary Hospital Course Hospital Course: # Acute hypoxic respiratory failure: 01/31/2025: Patient presented from [facility] with hypoxia, periods of apnea, and unresponsiveness. She was brought to the ED being bagged, she did not have a gag and was unresponsive in the ED so was intubated upon arrival to the ED. central line was also inserted as she was hypotensive CT scan showed right middle and right lower lobe consolidation. Since then patient has also received decent amount of IV fluids 02/05: accidentaly extubated and reintubated failed wean trial, eventually undewernt tracheostomy by ENT on 02/16/2025 Continue CMV mode of ventilation, peep of 5 and 30 % FiO2 per baggage porter Completed course of Zosyn and azithromycin Continue bronchodilators and Mucomyst nebulizer # Sepsis: Patient presented with altered mental status, hypoxia, apnea, pneumonia. Patient initially required vasopressors but now off empiric antibiotics to cover for other etiologies Blood culture negative # AMS (altered mental status): Encephalopathy could be related to hypoxia, hypercapnia, pneumonia/infection/hypotension, could be related to medication -head CT negative at the time of presentation Remains intubated -upon review of chart patient appears to be nonverbal at baseline and communicates her needs with gestures. She walks around in the hallways and is able to eat modified diet # Pneumonia: Chest x-ray and CTA chest show right lower lobe consolidation -according the [facility] records: Repeat CT chest showed interval development of new airspace opacities raising concern for aspiration pneumonia. She was transition to Zosyn from cefepime. MBS performed on 01/26 at [facility] which showed no evidence of aspiration despite coughing especially with swallowing. completed course of Zosyn, azithromycin (01/31) -MRSA screen is negative, vancomycin discontinued (02/01) # Cerebral palsy: Patient with cerebral palsy, mild intellectual disability, schizophrenia, nonverbal at baseline according the chart -patient on risperidone at baseline # Anemia: Patient admitted with a hemoglobin of 10.3 on 01/31 -02/01: Hemoglobin dropped to 7.7, a repeat CBC was done which showed a hemoglobin of 7.3 -will check stools for occult blood, -folic acid and vitamin B12 level within normal limits -low iron levels, low TIBC, will give Venofer -LDH is normal, haptoglobin is pending -Protonix IV q.12 hours -continue to monitor # Electrolyte imbalance: Continue free water flush to 100 mL Replace low potassium # Sinus tachycardia: 02/04: Patient developed SVT/sinus tachycardia overnight with rates in the 180-200s. Was given IV metoprolol x1 with improvement which brought her rate start to 130s. -could be multifactorial, related to sepsis, anemia, coronary artery disease -TSH normal -will continue metoprolol -currently sinus tachycardia monitor - mild elevation in troponin level with the levels have trended down -cardiology consult 02/02/2025: Echocardiogram Summary 1. Complete two-dimensional, color flow and Doppler transthoracic echocardiogram is performed. 2. Left ventricular chamber dimension is normal. 3. Left ventricular systolic function is normal, estimated at 60-65%. 4. The left ventricular diastolic function is grade I diastolic dysfunction. 5. E/e' 7 is not elevated. 6. There is mild aortic valve sclerosis. 7. There is trace tricuspid valve regurgitation. 8. Mild pulmonary hypertension, estimated pulmonary arterial systolic pressure is 41 mmHg. # Constipation: 02/04: KUB showed moderate fecal retention -improved with laxatives as patient is now having bowel movements. Continue Docusate sodium and senna and MiraLax # DVT prophylaxis: Lovenox # Stress ulcer prophylaxis: Protonix IV q.12 hours # Nutrition: PEG tube placed Tolerating tube feeds, patient on stool softener and MiraLax transfer to LTAC for further care Time Spent with Patient Time attestation: Total time spent providing and/or coordinating discharge services:50 mins Exam Narrative: General: Petite female/malnourished, in no acute distress HEENT:? Pupils are pinpoint, sluggish, tracheostomy in place Neck:? Supple Respiratory:? Coarse breath sounds bilaterally, rales on right base, no wheezing, adequate air entry otherwise Cardiac:? S1-S2 normal, regular rate and rhythm Abdomen:? Soft, nontender, nondistended, hypoactive bowel sounds, peg tube in place Extremities:? Trace edema, bilateral pedal pulses are palpable Neuro:? Intubated, her eyes are open. She noted her head on calling her name. She moves all 4 extremities but does not follow any commands with her extremities PERRL Skin:? No skin lesions noted Psych:? Unable to assess at this time DS: Data Data Completed and Pending Labs on day of discharge: Labs from last 24 hours 02/20/25 02/20/25 02/20/25 12:14 08:09 05:36 Sodium 145 Potassium 3.4 Chloride 103 Carbon Dioxide 38 H Anion Gap 4 BUN 27 H Creatinine 0.39 L Estim Creat Clear Calc 66 Estimated GFR > 60 Glucose 116 H POC Capillary Glucose 128 H 105 Calcium 9.1 02/20/25 02/19/25 00:38 17:33 Sodium Potassium Chloride Carbon Dioxide Anion Gap BUN Creatinine Estim Creat Clear Calc Estimated GFR Glucose POC Capillary Glucose 119 H 115 H Calcium Procedures/Treatments: Procedure Note - Detailed Date of Procedure 02/16/25 Pre-op Diagnosis Unresponsive, hypoxia, hypotensive, pneumonia Post-op Diagnosis Same Procedure Performed Tracheostomy under general anesthesia Surgeon Aubrey De Jesus MD Anesthesia General Indications Prolonged intubation needing tracheostomy Description of Procedure The patient was previously consented by the lyndsey . They were then brought back to the OR and induced with anesthesia through the endotracheal tube. They were then transferred to the OR table. A shoulder roll was placed. Landmarks were palpated and marked. A timeout was performed. An 8-0 DCT cuffed shiley tracheostomy tube was selected and tested. The patient was prepped and draped in the usual sterile fashion for an tracheotostomy. A horizontal incision was made along the marked line 1-2 cm above the suprasternal notch. Dissection was carried down in the midline through subcutaneous tissues using a hemostat and retraction by vein retractor and then [employer] retractors. The strap muscles were identified and divided using a combination of blunt dissection through the median raphe and electrocautery. The thyroid isthmus was encounted and retracted superiorly . The trachea was encountered. A cricoid hook was placed to stabilize and elevate the trachea. The tracheostomy tube was tested on the field and showed no leak. After confirmation with anesthesia and the health technician ensuring FiO2 was acceptable an #11 blade was used to make a horizontal incision into the trachea .Marv flap was created including the third tracheal ring . Heavy scissors were used to make parallel vertical cuts laterally through the second ring. The endotracheal tube was pulled. The tracheostomy tube was placed and successfully hooked up the circuit. The airway was stabilized and verified by anesthesia. The cricoid/tracheal hook was carefully removed. The tracheotomy tube was then secured with 0 silk sutures placed at each corner of the trach tube and the underlying skin. A tracheal tie was then placed. This ended this portion of the procedure and care of the patient was returned to anesthesia who recovered him in the ICU. Estimated Blood Loss 5 (ml) Urine Output 350 Drains No Packing No Complications None Condition Stable Disposition PACU [facility] Billing Surgery - Charge Forward: Surgery Billing G-tube placement on 02/14/2025 Imaging Radiologist's impression: ITS Impressions Chest X-Ray 01/31/25 14:32 IMPRESSION: Right lower lobe pneumonia. Abdomen X-Ray 01/31/25 14:34 IMPRESSION: NO ACUTE ABDOMINAL FINDINGS. Nasogastric tube with the tip in the body of the stomach. Head CT 01/31/25 15:47 Impression: No acute intracranial hemorrhage or suspicious mass effect. Chest/Abdomen/Pelvis CTA 01/31/25 15:49 IMPRESSION: Right middle and lower lobe pneumonia with dense consolidation. Left basilar atelectasis. No pulmonary embolus. No aortic dissection. Oral contrast opacifies the entirety of the colon. Supportive lines in good position. No acute pathology within the remainder of the examination, as detailed above. Abdomen X-Ray 01/31/25 21:20 IMPRESSION: Orogastric tube in good position and ready for immediate use. Chest X-Ray 02/01/25 06:25 Impression: Hazy airspace disease right lung base/right perihilar region. Correlate for asymmetric pulmonary edema versus pneumonia. Support tubes, as above. Chest X-Ray 02/02/25 06:34 Impression: Small right pleural effusion with hazy right basilar airspace disease and possible partial right basilar atelectasis. Support tubes, as above. Chest X-Ray 02/03/25 06:27 Impression: 1: Persistent mild interstitial edema with layering right pleural effusion. Chest X-Ray 02/04/25 07:02 IMPRESSION: Decreased right-sided pleural effusion, with adjacent compressive atelectasis. Mild pulmonary vascular congestion. Supportive lines and tubes in good radiographic position. Chest X-Ray 02/04/25 08:36 IMPRESSION: Decreased right-sided pleural effusion, with adjacent compressive atelectasis. Mild pulmonary vascular congestion. Given that the patient's kyphosis is not severe, the increased depth of both the endotracheal tube and central venous catheter is significant - for which withdrawal of the central venous catheter approximately 4 cm and withdrawal of the endotracheal tube approximately 3.5 cm is recommended, for optimal radiographic placement. Abdomen X-Ray 02/04/25 12:06 IMPRESSION: Orogastric tube in good position and ready for immediate use. Contrast opacified fecal stasis is identified distending the rectum extending to the level of the dilated splenic flexure. Chest X-Ray 02/05/25 06:17 IMPRESSION: 1. Airspace opacities in right mid and lower lung zones and left lower lung zone with improvement on the right, consistent with atelectasis versus pneumonia. 2. Small right pleural effusion. Chest X-Ray 02/05/25 14:56 IMPRESSION: Endotracheal tube is seen in the right main bronchus. Retraction by 2 to 3 cm is advised. Bilateral basal pneumonia. Chest X-Ray 02/06/25 06:20 IMPRESSION: 1. Airspace opacities in the lower lung zones with slight improvement on the right, consistent with pneumonia and atelectasis. Chest X-Ray 02/07/25 05:50 IMPRESSION: 1. Airspace opacities in the lower lung zones with interval improvement, consistent with atelectasis versus pneumonia. Chest X-Ray 02/08/25 05:48 IMPRESSION: 1. Airspace opacities in right mid and lower lung zones and left lower lung zone with worsening on the right, consistent with atelectasis versus pneumonia. Chest X-Ray 02/09/25 05:38 IMPRESSION: 1. Stable airspace opacities in right mid and lower lung zones, consistent with atelectasis versus pneumonia. Chest X-Ray 02/10/25 06:19 IMPRESSION: 1. Stable airspace opacities in right mid and lower lung zones, consistent with atelectasis versus pneumonia. Chest X-Ray 02/11/25 06:46 IMPRESSION: Small right-sided pleural effusion. Limited evaluation of the tip of the endotracheal tube location as the danay is obscured by overlying devices and wires. Remaining supportive lines and tubes in good radiographic position. Abdomen X-Ray 02/12/25 05:44 Impression: NG tube in satisfactory position. Chest X-Ray 02/12/25 05:45 Impression: Support tubes, as above. Right IJ line tip is in the right atrium, near the IVC. Clear lungs with stable elevation right hemidiaphragm. Chest X-Ray 02/13/25 06:22 Impression: Support tubes, as above. Clear lungs with elevated right hemidiaphragm. Chest X-Ray 02/14/25 09:04 Impression: 1: Right basilar opacification may represent atelectasis or pneumonia. Elevated right diaphragm unchanged. Chest X-Ray 02/15/25 06:15 Impression: Clear lungs with stable elevation of right hemidiaphragm. Support tubes, as above. Venous Doppler Study 02/15/25 12:09 IMPRESSION: 1. No deep venous thrombosis in either lower limb. Chest X-Ray 02/16/25 06:22 Impression: Mild haziness right lung base. Correlate for pneumonia. Stable elevation right hemidiaphragm. Stable support tubes. Chest X-Ray 02/17/25 06:48 IMPRESSION: 1. Unchanged elevation of the right hemidiaphragm with some improvement in opacities in the right lower lobe which could represent atelectasis or pneumonia. Chest X-Ray 02/18/25 08:04 IMPRESSION: No change from previous examination. Chest X-Ray 02/19/25 06:14 Impression: Clear lungs. Support tubes, as above. Elevated right hemidiaphragm. 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 [facility] Activity: as tolerated Diet: NPO and tube feeding Discharge Instructions: g tube care tube feeds: Vital AF 1.2 at 50 ml/hr with protein modular of Prosource daily trach care Patient Language: Tajik Stand Alone Forms: General Discharge Information Follow-up/Referrals: PHYSICIAN NOT ON STAFF,NONSTAFF [Primary Care Provider] - 1 Week Discharge Medications: New oxycodone 5 mg/5 mL Solution 5 mg feeding tube Q6H PRN (Reason: pain) Qty: 30 0RF Lubrifresh PM 83-15 % Ointment 1 applic EACH EYE Q12HR Qty: 30 0RF acetaminophen [Nortemp] 160 mg/5 mL Suspension 650 mg feeding tube Q6H PRN (Reason: Mild Pain (1-3) Or Fever) Qty: 30 0RF insulin aspart U-100 [Novolog U-100 Insulin aspart] 100 unit/mL Solution 3 - 6 unit subcut Q6HR Qty: 30 0RF Protocol: Insulin Corrective Moderate-Dose Condition: glucose < 70 mg/dl Dose/Route: Follow hypoglycemia orders Condition: glucose 70-200 mg/dl Dose/Route: No additional insulin Condition: glucose 201-250 mg/dl Dose/Route: 3 units sub-Q Condition: glucose 251-300 mg/dl Dose/Route: 4 units sub-Q Condition: glucose 301-350 mg/dl Dose/Route: 5 units sub-Q Condition: glucose 351-400 mg/dl Dose/Route: 6 units sub-Q Condition: glucose > 400 mg/dl Dose/Route: Call levalbuterol HCl 1.25 mg/3 mL Solution For Nebulization 0.63 mg inhalation Q6HRT Qty: 30 0RF ipratropium bromide 0.02 % Solution 0.5 mg inhalation Q6HRT Qty: 30 0RF enoxaparin [Lovenox] 40 mg/0.4 mL Syringe 40 mg subcut DAILY Qty: 30 0RF polyethylene glycol 3350 [Miralax] 17 gram Powder In Packet 17 g feeding tube QAM PRN (Reason: constipation) Qty: 30 0RF Zosyn in dextrose (iso-osm) 3.375 gram/50 mL Piggyback 3.375 g IV Q6H 3 Days Qty: 675 0RF Changed risperidone 0.5 mg tablet 0.5 mg feeding tube HS Qty: 30 0RF metoprolol tartrate 25 mg tablet 25 mg feeding tube BID Qty: 60 0RF omeprazole 20 mg capsule,delayed release(DR/EC) 20 mg feeding tube DAILY Qty: 30 0RF risperidone 1 mg tablet 1 mg feeding tube Q12H Qty: 60 0RF Discontinued cholecalciferol (vitamin D3) 50 mcg (2,000 unit) capsule 50 mcg PO DAILY clomipramine 50 mg capsule 50 mg PO DAILY clomipramine 25 mg capsule 25 mg PO DAILY B-100 Complex 100 mg tablet extended release 1 tablet PO DAILY acetaminophen 500 mg tablet 1,000 mg PO Q6H PRN (Reason: fever or pain) Patient Comments: pain rated 1-3 bisacodyl 5 mg tablet,delayed release (DR/EC) 10 mg PO Q8H PRN (Reason: constipation) Patient Comments: if no BM for 3 days docusate sodium 100 mg capsule 100 mg PO Q12H fluticasone propionate 50 mcg/actuation spray,suspension 2 spray INTRANASAL HS Patient Comments: 2 sprays in each nostril for chronic rhinitis guaifenesin [Chest Congestion Relief] 100 mg/5 mL liquid 200 mg PO Q4H PRN (Reason: cough) Patient Comments: 100mg/5ml solution for a total of 200mg loperamide 2 mg capsule 2 mg PO Q4H PRN (Reason: loose stool) magnesium hydroxide [Milk of Magnesia] 400 mg/5 mL suspension 30 ml PO QID PRN (Reason: constipation) magnesium oxide 250 mg magnesium tablet 250 mg PO DAILY oxybutynin chloride 5 mg tablet extended release 24hr 5 mg PO HS potassium chloride 10 mEq tablet extended release 20 meq PO DAILY ascorbic acid (vitamin C) [Vitamin C] 500 mg tablet 500 mg PO Q12H Date of admission: 01/31/25 17:47 Primary Care Provider: PHYSICIAN NOT ON STAFF,NONSTAFF Admitting Provider: Mirna Bailey Attending physician on admission: Mirna Bailey Condition: Critical
[2025-02-20 17:28] LABS: Glucose Point of Care 114 mg/dl (65-105)
[2025-02-20] MEDS: risperiDONE 0.5 MG TABLET FEED TUBE (20:00)
--- NOTE | 2025-02-21 08:44 | P.PN_ITS ---
Progress Note: A&P Assessment and Plan (1) Acute hypoxic respiratory failure: Code(s): J96.01 - Acute respiratory failure with hypoxia Status: Acute Plan Patient was discharged yesterday to [facility] [place] as she will need prolonged ventilator support I spoke to Dr Taylor and asked him to communicate with the facility as the patient needs trach change in the next few days ,after that she will need trach change every 30 days as long as she is on ventilator support DR Taylor told me he will speak to the patient career development associate and communicate this message Subjective Date/time seen: 02/21/25 08:44 Objective Data Vital Signs Vital Signs: Vital Signs - 24 hr 02/20/25 10:00 02/20/25 10:00 02/20/25 11:25 Temperature 37.2 C Pulse Rate 98 98 99 Respiratory Rate 16 Blood Pressure 132/82 Pulse Oximetry 95 95 Oxygen Delivery Mechanical Ventilation Fraction of Inspired Oxygen 30 02/20/25 12:00 02/20/25 12:00 02/20/25 12:00 Temperature Pulse Rate 111 H Respiratory Rate Blood Pressure Pulse Oximetry 97 Oxygen Delivery Mechanical Ventilation Fraction of Inspired Oxygen 30 30 02/20/25 12:00 02/20/25 13:32 02/20/25 13:38 Temperature 37.4 C Pulse Rate 110 H 108 H 108 H Respiratory Rate 18 16 Blood Pressure 119/75 Pulse Oximetry 96 98 Oxygen Delivery Mechanical Ventilation Fraction of Inspired Oxygen 30 02/20/25 14:00 02/20/25 14:00 02/20/25 16:00 Temperature 37.5 C Pulse Rate 107 H 107 H Respiratory Rate 16 Blood Pressure 109/73 Pulse Oximetry 97 98 Oxygen Delivery Mechanical Ventilation Fraction of Inspired Oxygen 30 02/20/25 16:00 02/20/25 16:00 02/20/25 16:00 Temperature 37.4 C Pulse Rate 106 H 107 H Respiratory Rate 16 Blood Pressure 111/80 Pulse Oximetry 98 Oxygen Delivery Fraction of Inspired Oxygen 30 02/20/25 17:30 02/20/25 18:00 02/20/25 18:00 Temperature 37.6 C Pulse Rate 114 H 111 H 111 H Respiratory Rate 20 Blood Pressure 128/84 Pulse Oximetry 97 97 Oxygen Delivery Mechanical Ventilation Fraction of Inspired Oxygen 30 02/20/25 20:00 02/20/25 20:00 02/20/25 20:00 Temperature Pulse Rate 109 H 110 H 117 H Respiratory Rate 17 Blood Pressure Pulse Oximetry 97 100 Oxygen Delivery Mechanical Ventilation Mechanical Ventilation Fraction of Inspired Oxygen 30 30 02/20/25 20:00 02/20/25 20:00 02/20/25 20:00 Temperature 37.6 C H Pulse Rate 117 H 117 H Respiratory Rate 17 Blood Pressure 131/91 H Pulse Oximetry 100 Oxygen Delivery Fraction of Inspired Oxygen 30 02/20/25 20:06 Temperature Pulse Rate 110 H Respiratory Rate 14 Blood Pressure Pulse Oximetry Oxygen Delivery Fraction of Inspired Oxygen Intake/Output Intake/Output: Intake & Output 02/18/25 02/19/25 02/20/25 02/21/25 23:59 23:59 23:59 23:59 Intake Total 2134 2020 2261 Output Total 1200 2550 1650 Balance 934 -530 611 Meds/Results Radiology Results: ITS Impressions Head CT 01/31/25 15:47 Impression: No acute intracranial hemorrhage or suspicious mass effect. Chest/Abdomen/Pelvis CTA 01/31/25 15:49 IMPRESSION: Right middle and lower lobe pneumonia with dense consolidation. Left basilar atelectasis. No pulmonary embolus. No aortic dissection. Oral contrast opacifies the entirety of the colon. Supportive lines in good position. No acute pathology within the remainder of the examination, as detailed above. Abdomen X-Ray 02/12/25 05:44 Impression: NG tube in satisfactory position. Venous Doppler Study 02/15/25 12:09 IMPRESSION: 1. No deep venous thrombosis in either lower limb. Chest X-Ray 02/19/25 06:14 Impression: Clear lungs. Support tubes, as above. Elevated right hemidiaphragm. Labs Labs: Laboratory Results - last 24 hr 02/20/25 02/20/25 12:14 17:19 POC Capillary Glucose 128 H 114 H
--- NOTE | 2025-02-26 17:54 | P.PNAN_ITS ---
Anes - Initial Pre Proc Eval Procedure: Operation Date: 02/14/25 15:15 Proposed Procedures p Percutaneous Endoscopic Gastrostomy - Freeman Colón MD Operation Date: 02/16/25 12:00 Proposed Procedures p Tracheostomy - Aubrey De Jesus MD Date/Time: 02/26/25 17:54 Surgeon: Maxx Orellana MD Pre Op Diagnosis: Unresponsive, hypoxia, hypotensive, pneumonia Patient Data Age: 69 Gender: F Height: 1.52 m Weight: 38.5 kg Last Vital Signs Temp 99.7 F H 02/20/25 20:00 Pulse 110 H 02/20/25 20:06 Resp 14 02/20/25 20:06 BP 131/91 H 02/20/25 20:00 Pulse Ox 100 02/20/25 20:00 O2 Del Method Mechanical Ventilation 02/20/25 20:00 O2 Flow Rate 3 02/05/25 14:18 FiO2 30 02/20/25 20:00 Allergies Allergy/AdvReac Type Severity Reaction Status Date / Time cefepime Allergy Unknown Unknown Verified 02/14/25 13:58 Home Medications ?Medication ?Instructions ?Recorded ?Confirmed ?Type acetaminophen 160 mg/5 mL oral 650 mg (20.3125 mL) feeding tube 02/20/25 Rx suspension (Nortemp) Q6H PRN Mild Pain (1-3) Or Fever #30 mL enoxaparin 40 mg/0.4 mL 40 mg (0.4 mL) subcut DAILY #30 mL 02/20/25 Rx subcutaneous syringe (Lovenox) insulin aspart U-100 100 unit/mL 3 - 6 unit subcut Q6HR #30 mL 02/20/25 Rx subcutaneous solution (Novolog U-100 Insulin aspart) ipratropium bromide 0.02 % 0.5 mg (2.5 mL) inhalation Q6HRT 02/20/25 Rx solution for inhalation #30 mL levalbuterol HCl 1.25 mg/3 mL 0.63 mg (1.512 mL) inhalation 02/20/25 Rx solution for nebulization Q6HRT #30 mL metoprolol tartrate 25 mg tablet 25 mg feeding tube BID #60 tabs 02/20/25 02/01/25 Rx omeprazole 20 mg capsule,delayed 20 mg feeding tube DAILY #30 caps 02/20/25 02/01/25 Rx release oxycodone 5 mg/5 mL oral solution 5 mg (5 mL) feeding tube Q6H PRN 02/20/25 Rx pain #30 mL piperacillin-tazobactam 3.375 3.375 g (56.25 mL) IV Q6H 3 days 02/20/25 Rx gram/50 mL dextrose(iso-os) IV #675 mL piggyback (Zosyn) polyethylene glycol 3350 17 gram 17 g feeding tube QAM PRN 02/20/25 Rx oral powder packet (Miralax) constipation #30 ea risperidone 0.5 mg tablet 0.5 mg feeding tube HS #30 tabs 02/20/25 02/01/25 Rx risperidone 1 mg tablet 1 mg feeding tube Q12H #60 tabs 02/20/25 02/01/25 Rx white petrolatum-mineral oil 83 1 applic EACH EYE Q12HR #30 grams 02/20/25 Rx %-15 % [facility] Patient hx anesthesia problems: none Family hx anesthesia problems: none Results Review: All pre-operative results and documents have been reviewed as part of the pre- operative evaluation. 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 Cerebral palsy Family History Family History Other Unknown family medical history Social History Social History Smoking status: Unknown if ever smoked Alcohol intake: unknown Substance use: unknown Spiritual care concerns: No Anes - Eval Final PreProcedure Day of Procedure 02/26/25 17:54 Patient weight: cachectic Lungs: normal air movement Airway: Mallampati scale class II Neurological: alert and oriented Last oral intake: >/= 8 hours ASA classification: IV Emergent: no Anesthetic plan: proceed Anesthesia type and monitoring: general GIVS and standard monitoring Results Review: All pre-operative results and documents have been reviewed as part of the pre- operative evaluation. Complicated hx that was discussed w Dr Colón prior to procedure. This note entered late to the best of my recollection. Informed Consent: The patient's anesthetic plan and its attendant risks and benefits were discussed with the patient/family/POA. Questions were solicited and answers provided to the satisfaction of the patient/family/POA.
== END 2025-02-20 20:50 | DRG 4 ==
LOC: ANHED 16:41 → ANHICU 17:00
PROVIDERS: Internal Medicine; Internal Medicine Gastroenterology; Nurse Practitioner Family; Otolaryngology Otolaryngology/Facial Plastic Surgery; Physician Assistant; Student in an Organized Health Care Education/Training Program; Admitting Provider Hospitalist; Emergency Provider Emergency Medicine; Visit Provider Internal Medicine
PROC: 0DH63UZ Insertion of Feeding Device into Stomach, Percutaneous Approach (ICD-10-PCS; CPT 43246; principal; 2025-02-14 15:15)
PROC: 0B110F4 Bypass Trachea to Cutaneous with Tracheostomy Device, Open Approach (ICD-10-PCS; principal; 2025-02-16 12:00)
DX: A41.9 Sepsis, unspecified organism (principal); R65.21 Severe sepsis with septic shock; J18.9 Pneumonia, unspecified organism; J96.01 Acute respiratory failure with hypoxia; G93.49 Other encephalopathy; E46 Unspecified protein-calorie malnutrition; Z68.1 Body mass index [BMI] 19.9 or less, adult; E87.0 Hyperosmolality and hypernatremia; I47.10 Supraventricular tachycardia, unspecified; G80.9 Cerebral palsy, unspecified; F20.9 Schizophrenia, unspecified; M81.0 Age-related osteoporosis without current pathological fracture; E78.5 Hyperlipidemia, unspecified; E55.9 Vitamin D deficiency, unspecified; F79 Unspecified intellectual disabilities; Z20.822 Contact with and (suspected) exposure to COVID-19; K59.00 Constipation, unspecified; E87.6 Hypokalemia; I48.91 Unspecified atrial fibrillation; R13.19 Other dysphagia; D63.8 Anemia in other chronic diseases classified elsewhere
CPT/HCPCS: 31500; 36415; 36430; 36556; 36569; 36600; 43246; 70450; 71045; 71275; 74018; 74177; 80048; 80053; 81001; 82274; 82375; 82607; 82746; 82805; 82948; 83010; 83050; 83540; 83550; 83605; 83615; 83735; 84100; 84145; 84443; 84484; 85018; 85025; 85027; 85610; 85730; 86140; 86850; 86900; 86901; 86923; 87040; 87070; 87086; 87205; 87637; 87641; 93005; 93306; 93970; 94002; 94003; 94640; 96365; 96366; 96367; 96372; 96375; 99291; A9270; C1751; G0378; J0330; J0456; J0692; J0744; J1100; J1650; J1756; J1938; J1940; J2003; J2004; J2250; J2470; J2543; J2704; J3010; J3370; J3475; J3480; J7040; J7050; J7120; L0140; P9016; P9041; P9047; Q9967